=== PATIENT | female | born 1945 | race Caucasian/White ===

== ENCOUNTER 2016-03-10 14:22 | Emergency (ER) | payer OTHER ==
[2016-03-10 14:52] VITALS: BP 156/82; PULSE 89; TEMP 98; BMI 19.5
--- NOTE | 2016-03-10 16:11 | PDOC ---
History of Present Illness - General History Source: Patient, Old Records Exam Limitations: No Limitations - History of Present Illness Initial Comments: 03/10/16 16:46 The patient is a 70 year old female, with a significant past medical history of HTN, hyperlipidemia, cerebral tumor removal (2009), s/p CVA (2009), GERD, gastric ulcer, seizures (on Depakote) and anxiety, who presents to the emergency department with a constant, nonradiating headache which woke her up from sleep this morning at approximately 7AM. She rates her headache as a 7/10 in severity and localizes her headache to the frontal region. She states that she has taken Tylenol for her symptoms, with minimal relief. The patient reports associated nausea and RUQ abdominal pain but denies vomiting. She additionally reports right sided, nonradiating substernal chest pain, which she states she has experienced in the past. The patient denies any blurry vision, vision changes or any extremity numbness/tingling. The patient denies fever, chills, diaphoresis, palpitations or shortness of breath. Her primary language is Arabic. Her caregiver is with her in the ED. The patient uses a walker to ambulate. Allergies: Aspirin, Morphine Past Surgical History: Cholecystectomy, Brain Tumors (2009), Rt Knee Replacement x 2. Social History: Non smoker. Denies alcohol or drug use. PCP: Dr. Mabry <Sue Lyles - Last Filed: 03/10/16 23:20> <Damián Gonzalez - Last Filed: 03/11/16 01:35> - General Chief Complaint: Headache Stated Complaint: HEADACHES Past History <Sue Lyles - Last Filed: 03/10/16 23:20> - Past Medical History Anemia: No Asthma: No Cancer: No Cardiac Disorders: No CVA: Yes (2009,CONFUSED/FORGETFUL AT TIMES) COPD: No CHF: No Dementia: No Diabetes: No GI Disorders: Yes (gerd, gastric ulcer, dysphagia) Disorders: Yes (?kidney stones-PT NOT SURE) HTN: Yes Hypercholesterolemia: Yes Liver Disease: No Suicide Attempt (Hx): No Seizures: (ON DEPAKOTE TO HELP PREVENT AFTER BENIGN TUMOR REMOVAL) Thyroid Disease: No - Surgical History Abdominal Surgery: No Appendectomy: No Cardiac Surgery: No Cholecystectomy: Yes Lung Surgery: No Neurologic Surgery: Yes (brain tumors 2010) Orthopedic Surgery: Yes (RT KNEE REPLACEMENT X 2) - Immunization History Td Vaccination: Yes TDAP Vaccination: No Immunization Up to Date: No - Psycho/Social/Smoking Cessation Hx Anxiety: No Suicidal Ideation: No Smoking Status: No Smoking History: Never smoked Have you smoked in the past 12 months: No Number of Cigarettes Smoked Daily: 0 Cigars Per Day: 0 Hx Alcohol Use: No Drug/Substance Use Hx: No Substance Use Type: None Hx Substance Use Treatment: No <Damián Gonzalez - Last Filed: 03/11/16 01:35> - Past Medical History Allergies/Adverse Reactions: Allergies Allergy/AdvReac Type Severity Reaction Status Date / Time aspirin Allergy Severe "NERVOUS" Verified 03/10/16 14:47 morphine Allergy Severe "ANXIETY-DE Verified 03/10/16 14:47 SPERATION" Home Medications: Ambulatory Orders Buspirone HCl [Buspar -] 15 mg PO BID 03/10/16 Dexlansoprazole [Dexilant] 60 mg PO DAILY 03/10/16 Escitalopram Oxalate [Lexapro -] 10 mg PO DAILY 03/10/16 Famotidine [Pepcid] 40 mg PO HS 03/10/16 Furosemide [Lasix] 40 mg PO DAILY 03/10/16 Gabapentin 600 mg PO BID 03/10/16 Lidocaine/Prilocaine Cream [Emla] 1 each TP DAILY 03/10/16 Metoclopramide HCl [Reglan] 5 mg PO TID 03/10/16 Metoprolol Succinate [Toprol Xl -] 12.5 mg PO DAILY 03/10/16 Oxybutynin Chloride [Oxybutynin Chloride ER] 15 mg PO DAILY 03/10/16 Oxycodone HCl/Acetaminophen [Percocet 5-325 mg Tablet] 1 tab PO Q4H 03/10/16 Potassium Chloride [K-Dur -] 20 meq PO DAILY 03/10/16 Pregabalin [Lyrica -] 75 mg PO BID 03/10/16 Quetiapine Fumarate [Seroquel -] 25 mg PO HS 03/10/16 Rifaximin [Xifaxan] 550 mg PO BID 03/10/16 Sulfamethoxazole/Trimethoprim [Bactrim Single Strength -] 1 tab PO DAILY Review of Systems - Review of Systems Able to Perform ROS?: Yes Comments:: 03/10/16 16:47 CONSTITUTIONAL: No fever, no chills, no fatigue EYES: No visual changes ENT: No ear pain, no sore throat CARDIOVASCULAR: +Chest pain. No palpitations RESPIRATORY: No cough, no SOB GI: +Nausea, abdominal pain. No vomiting, no constipation, no diarrhea GENITOURINARY: No dysuria, no frequency, no hematuria MUSKULOSKELETAL: No back pain, no joint pain, no myalgias SKIN: No rash NEURO: +Headache <Sue Lyles - Last Filed: 03/10/16 23:20> *Physical Exam - Vital Signs Last Vital Signs Temp Pulse Resp BP Pulse Ox 98 F 89 20 156/82 97 03/10/16 14:47 03/10/16 14:47 03/10/16 14:47 03/10/16 14:47 03/10/16 14:47 - Physical Exam Comments: 03/10/16 17:47 CONSTITUTIONAL: AAO x3. Well-appearing; well-nourished; in no apparent distress. HEAD: Normocephalic; atraumatic. EYES: PERRL; EOM intact. ENMT: External appears normal; normal oropharynx. NECK: Supple; non-tender; no cervical lymphadenopathy. CARD: Normal S1, S2; no murmurs, rubs, or gallops. RESP: Normal chest excursion with respiration; breath sounds clear and equal bilaterally; no wheezes, rhonchi, or rales. ABD: RUQ epigastric tenderness on palpation. Soft, non-distended; no palpable organomegaly, no palpable hernias. EXT: 2+ pitting edema bilaterally. Normal ROM in all four extremities; non- tender to palpation; distal pulses intact. SKIN: Warm, dry, no rash. NEURO: Frequent involuntary lower lip movements consistent with tardive dyskinesia. Cranial nerves II through XII are intact. 5/5 motor strength x 4 extremities. No gross sensory deficits. Finger to nose intact. Normal speech, normal gait. <Sue Lyles - Last Filed: 03/10/16 23:20> - Vital Signs Last Vital Signs Temp Pulse Resp BP Pulse Ox 98 F 89 20 156/82 97 03/10/16 14:47 03/10/16 14:47 03/10/16 14:47 03/10/16 14:47 03/10/16 14:47 <Damián Gonzalez - Last Filed: 03/11/16 01:35> Heart Score/ECG Review #1 ECG reviewed & interpreted by me at: 18:05 (Vent Rate: 76 bpm. Normal sinus rhythm. ) <Sue Lyles - Last Filed: 03/10/16 23:20> ED Treatment Course - LABORATORY CBC & Chemistry Diagram: 03/10/16 16:52 03/10/16 16:52 <Sue Lyles - Last Filed: 03/10/16 23:20> - LABORATORY CBC & Chemistry Diagram: 03/10/16 16:52 03/10/16 16:52 <Damián Gonzalez - Last Filed: 03/11/16 01:35> Medical Decision Making - Medical Decision Making 03/10/16 19:50 EXAM: US/ABDOMEN US-LIMITED Reviewed By: Dr. Arturo Jimenez IMPRESSION: Limited study, s/p cholecystectomy with no evidence of biliary ductal dilatation. EXAM: CT/HEAD CT WITHOUT CONTRAST Reviewed By: Dr. Arturo Jimenez IMPRESSION: No evidence of acute intracranial pathology or significant change since 01/22/2016. <Sue Lyles - Last Filed: 03/10/16 23:20> - Medical Decision Making 03/10/16 18:57 Patient is anxious appearing 70-year-old female who presents with multiple complaints. Patient presents with atraumatic frontal headache consistent with her previous episodes of headache--serial neurological evaluations and the CT of head showed no evidence of acute intracranial pathology, left frontal encephalomalacia is unchanged. I do not suspect meningitis or subarachnoid hemorrhage at this time. Patient also presents with atraumatic nonspecific chest discomfort-EKG and first set of cardiac enzymes are within normal limit. Do not suspect a pulmonary embolism or dissection at this time. Patient also complaining of atraumatic right upper quadrant discomfort (she is status post cholecystectomy). CBC/CMP/lipase within normal limit. Will obtain right upper quadrant ultrasound to evaluate for retained stone versus hepatomegaly. Will reassess. Likely will obtain second set of cardiac enzymes and if normal will discharge with PMD follow-up. 03/11/16 01:33 <Damián Gonzalez - Last Filed: 03/11/16 01:35> *DC/Admit/Observation/Transfer - Attestations Scribe Attestion: 03/10/16 16:20 Documentation prepared by Sue Lyles, acting as medical device sales consultant for Damián Gonzalez MD. <Sue Lyles - Last Filed: 03/10/16 23:20> - Attestations Physician Attestion: 03/10/16 18:56 The documentation was prepared by the scribe under my direct supervision. I have reviewed the documentation which correctly represents the findings, medical decision-making and critical action taken by me. <Damián Gonzalez - Last Filed: 03/11/16 01:35> Diagnosis at time of Disposition: Headache Qualifiers: Headache type: unspecified Headache chronicity pattern: acute headache Intractability: not intractable Qualified Code(s): R51 - Headache Chest pain Qualifiers: Chest pain type: unspecified Qualified Code(s): R07.9 - Chest pain, unspecified Abdominal pain Qualifiers: Abdominal location: right lower quadrant Qualified Code(s): R10.31 - Right lower quadrant pain - Discharge Dispostion Disposition: HOME Condition at time of disposition: Stable - Referrals Referrals: Waldo Mabry MD [Primary Care Provider] - - Patient Instructions Printed Discharge Instructions: DI for Headache, DI for Atypical Chest Pain, DI for Abdominal Pain-Adult Print Language: [place]
[2016-03-10] MEDS ORDERED: METOCLOPRAMIDE HCL INJECTION 10 MG/2 ML VIAL IVPB ONE (16:53)
[2016-03-10] MEDS ORDERED: ALPRAZolam 0.25 MG TABLET PO ONE (16:53)
[2016-03-10] MEDS ORDERED: ALPRAZolam 0.25 MG TABLET ONE (17:00)
[2016-03-10] MEDS ORDERED: SODIUM CHLORIDE 0.9% 1000 ML INFUS.BAG IV ONE (17:06)
[2016-03-10] MEDS ORDERED: ONDANSETRON 4 MG/2 ML VIAL IVPUSH ONE (17:06)
[2016-03-10] MEDS ORDERED: ONDANSETRON 4 MG/2 ML VIAL ONE (17:07)
[2016-03-10] MEDS ORDERED: SODIUM CHLORIDE 500 ML IV STA (17:18)
[2016-03-10] MEDS ORDERED: ONDANSETRON 4 MG/2 ML VIAL IVPB ONE (17:18)
[2016-03-10 17:54] LABS: BASOPHIL 0.2 % (0-2.0); EOSINOPHIL 0.3 % (0-4.5); MCH 21.3 pg (25.7-33.7); MEAN CELL VOLUME 68.6 fl (80-96); NEUTROPHILS 87.5 % (42.8-82.8); PLATELET COUNT 525 K/MM3 (134-434); RDW 26.5 % (11.6-15.6); WHITE BLOOD COUNT 5.7 K/mm3 (4.0-10.0)
[2016-03-10] MEDS ORDERED: ACETAMINOPHEN 325 MG TABLET (FP) PO ONE (18:00)
[2016-03-10 18:18] LABS: ALBUMIN 3.8 g/dl (3.4-5.0); ANION GAP 14 (8-16); BILIRUBIN,TOTAL 0.3 mg/dL (0.2-1.0); CALCIUM 8.9 mg/dL (8.5-10.1); CO2 29 mmol/L (21-32); CREATININE 0.8 mg/dL (0.55-1.02); GLUCOSE,RANDOM 144 mg/dL (74-106); SGOT/AST 22 U/L (15-37); SGPT/ALT 30 U/L (12-78); TOT PROT 7.5 g/dl (6.4-8.2)
[2016-03-10 18:21] LABS: ALK PHOS 181 U/L (45-117); TROPONIN I < 0.02 ng/ml (0.00-0.05)
[2016-03-10 18:40] LABS: PLATELET ESTIMATE SLT INCREASED (NORMAL)
[2016-03-10 18:42] LABS: ANISOCYTOSIS 3+; HYPOCHROMIA 2+; MICROCYTOSIS 1+; OVALOCYTES 1+; POIKILOCYTOSIS 1+; POLYCHROMASIA 1+
[2016-03-10 19:28] LABS: URINE APPEARANCE CLEAR; URINE BILIRUBIN NEGATIVE (NEGATIVE); URINE COLOR COLORLESS; URINE GLUCOSE (UA) NEGATIVE (NEGATIVE); URINE KETONE NEGATIVE (NEGATIVE); URINE LEUK ESTERASE NEGATIVE (NEGATIVE); URINE NITRITE NEGATIVE (NEGATIVE); URINE PROTEIN NEGATIVE (NEGATIVE); URINE UROBILINOGEN NEGATIVE E.U./dl (0.2-1.0)
[2016-03-10 19:29] LABS: URINE BLOOD 1+ (NEGATIVE)
[2016-03-10 19:55] LABS: URINE MUCUS RARE; URINE RBC 1 /hpf (0-3); URINE WBC <1 /hpf (3-5)
[2016-03-10] MEDS ORDERED: traMADol HCL 50 MG TABLET PO ONE (20:17)
[2016-03-10] MEDS ORDERED: ACETAMINOPHEN 325 MG TABLET (FP) ONE (20:33)
[2016-03-10] MEDS ORDERED: traMADol HCL 50 MG TABLET ONE (20:34)
[2016-03-10] MEDS ORDERED: IBUPROFEN 400 MG TABLET (FP) PO ONE (23:36)
[2016-03-11 01:16] LABS: TROPONIN I < 0.02 ng/ml (0.00-0.05)
[2016-03-11] MEDS ORDERED: IBUPROFEN 600 MG TABLET (FP) PO ONE (02:15)
--- NOTE | 2016-03-11 10:09 | EKG ---
Test Reason : Blood Pressure : / mmHG Vent. Rate : 076 BPM Atrial Rate : 076 BPM P-R Int : 162 ms QRS Dur : 084 ms QT Int : 396 ms P-R-T Axes : 035 -01 018 degrees QTc Int : 445 ms NORMAL SINUS RHYTHM WHEN COMPARED WITH ECG OF 22-JAN-2016 15:49, NO SIGNIFICANT CHANGE WAS FOUND Confirmed by LARA SARMIENTO MD ([id number]) on 03/11/2016 10:09:27 AM Referred By: Confirmed By:LARA SARMIENTO MD
== END 2016-03-11 01:51 | disposition home or self-care (01) ==
LOC: JERFT 14:22 → JER 14:22
PROC: 3E033GC Introduction of Other Therapeutic Substance into Peripheral Vein, Percutaneous Approach (ICD-10-PCS; principal; 2016-03-10)
DX: R51 Headache (principal); G40.909 Epilepsy, unspecified, not intractable, without status epilepticus; I10 Essential (primary) hypertension; E78.00 Pure hypercholesterolemia, unspecified; F41.9 Anxiety disorder, unspecified; I69.898 Other sequelae of other cerebrovascular disease; Z87.19 Personal history of other diseases of the digestive system
CPT/HCPCS: 36415; 70450-TC; 71010-TC; 76705-TC; 80053; 81003; 81015; 82550; 83690; 84484; 85025; 85610; 87086; 93005; 93010; 99283-25

== ENCOUNTER 2016-03-20 14:27 | Emergency (ER) | payer OTHER ==
--- NOTE | 2016-03-20 14:43 | PDOC ---
History of Present Illness - General History Source: Patient Exam Limitations: No Limitations - History of Present Illness Initial Comments: 03/20/16 15:54 The patient is a 70 year old female, with a significant past medical history of HTN, hyperlipidemia, cerebral tumor removal (2009), s/p CVA (2009), GERD, gastric ulcer, seizures (on Depakote) and anxiety, who presents to the emergency department with a constant, nonradiating headache. She notes that she had injections but is unsure of the medication that they used. She notes that it was not Botox because she is due for Botox injections until end of March. She notes that the injections did not alleviate the headache and it has been constant since. She is requesting CT of the head because she cannot take the headache anympore. She denies fever, chills, nausea, vomiting, diarrhea and constipation. She denies any recent fall or LOC. Allergies: Aspirin, Morphine Past Surgical History: Cholecystectomy, Brain Tumors (2009), Rt Knee Replacement x 2. Social History: Non smoker. Denies alcohol or drug use. PCP: Dr. Mabry <Harriet Amin - Last Filed: 03/20/16 15:54> <Deon Trujillo - Last Filed: 03/20/16 17:35> - General Chief Complaint: Headache Stated Complaint: PAIN Time Seen by Provider: 03/20/16 14:42 Past History <Harriet Aimn - Last Filed: 03/20/16 15:54> - Past Medical History Anemia: No Asthma: No Cancer: No Cardiac Disorders: No CVA: Yes (2009,CONFUSED/FORGETFUL AT TIMES) COPD: No CHF: No Dementia: No Diabetes: No GI Disorders: Yes (gerd, gastric ulcer, dysphagia) Disorders: Yes (?kidney stones-PT NOT SURE) HTN: Yes Hypercholesterolemia: Yes Liver Disease: No Suicide Attempt (Hx): No Seizures: (ON DEPAKOTE TO HELP PREVENT AFTER BENIGN TUMOR REMOVAL) Thyroid Disease: No - Surgical History Abdominal Surgery: No Appendectomy: No Cardiac Surgery: No Cholecystectomy: Yes Lung Surgery: No Neurologic Surgery: Yes (brain tumors 2009) Orthopedic Surgery: Yes (RT KNEE REPLACEMENT X 2) - Immunization History Td Vaccination: Yes TDAP Vaccination: No Immunization Up to Date: No - Psycho/Social/Smoking Cessation Hx Anxiety: No Suicidal Ideation: No Smoking Status: No Smoking History: Never smoked Have you smoked in the past 12 months: No Number of Cigarettes Smoked Daily: 0 Cigars Per Day: 0 Hx Alcohol Use: No Drug/Substance Use Hx: No Substance Use Type: None Hx Substance Use Treatment: No <Deon Trujillo - Last Filed: 03/20/16 17:35> - Past Medical History Allergies/Adverse Reactions: Allergies Allergy/AdvReac Type Severity Reaction Status Date / Time aspirin Allergy Severe "NERVOUS" Verified 03/20/16 14:43 morphine Allergy Severe "ANXIETY-DE Verified 03/20/16 14:43 SPERATION" Home Medications: Ambulatory Orders Buspirone HCl [Buspar -] 15 mg PO BID 03/10/16 Dexlansoprazole [Dexilant] 60 mg PO DAILY 03/10/16 Escitalopram Oxalate [Lexapro -] 10 mg PO DAILY 03/10/16 Famotidine [Pepcid] 40 mg PO HS 03/10/16 Furosemide [Lasix] 40 mg PO DAILY 03/10/16 Gabapentin 600 mg PO BID 03/10/16 Lidocaine/Prilocaine Cream [Emla] 1 each TP DAILY 03/10/16 Metoclopramide HCl [Reglan] 5 mg PO TID 03/10/16 Metoprolol Succinate [Toprol Xl -] 12.5 mg PO DAILY 03/10/16 Oxybutynin Chloride [Oxybutynin Chloride ER] 15 mg PO DAILY 03/10/16 Potassium Chloride [K-Dur -] 20 meq PO DAILY 03/10/16 Pregabalin [Lyrica -] 75 mg PO BID 03/10/16 Quetiapine Fumarate [Seroquel -] 25 mg PO HS 03/10/16 Rifaximin [Xifaxan] 550 mg PO BID 03/10/16 Sulfamethoxazole/Trimethoprim [Bactrim Single Strength -] 1 tab PO DAILY Review of Systems - Review of Systems Able to Perform ROS?: Yes Comments:: 03/20/16 15:55 GENERAL/CONSTITUTIONAL: No fever or chills. No weakness. HEAD, EYES, EARS, NOSE AND THROAT: No change in vision. No ear pain or discharge. No sore throat. CARDIOVASCULAR: No chest pain or shortness of breath. RESPIRATORY: No cough, wheezing, or hemoptysis. GASTROINTESTINAL: No nausea, vomiting, diarrhea or constipation. GENITOURINARY: No dysuria, frequency, or change in urination. MUSCULOSKELETAL: No joint or muscle swelling or pain. No neck or back pain. SKIN: No rash NEUROLOGIC: +headache, No vertigo, loss of consciousness, or change in strength/ sensation. ENDOCRINE: No increased thirst. No abnormal weight change. HEMATOLOGIC/LYMPHATIC: No anemia, easy bleeding, or history of blood clots. ALLERGIC/IMMUNOLOGIC: No hives or skin allergy. <Harriet Amin - Last Filed: 03/20/16 15:54> *Physical Exam - Vital Signs Last Vital Signs Temp Pulse Resp BP Pulse Ox 98.1 F 80 18 128/69 100 03/20/16 14:51 03/20/16 14:51 03/20/16 14:51 03/20/16 14:51 03/20/16 14:51 - Physical Exam Comments: 03/20/16 15:55 GENERAL: Awake, alert, and fully oriented, in no acute distress HEAD: No signs of trauma EYES: PERRLA, EOMI, sclera anicteric, conjunctiva clear ENT: Auricles normal inspection, hearing grossly normal, nares patent, oropharynx clear without exudates. Moist mucosa NECK: Normal ROM, supple, no lymphadenopathy, JVD, or masses LUNGS: Breath sounds equal, clear to auscultation bilaterally. No wheezes, and no crackles HEART: Regular rate and rhythm, normal S1 and S2, no murmurs, rubs or gallops ABDOMEN: Soft, nontender, normoactive bowel sounds. No guarding, no rebound. No masses EXTREMITIES: Normal range of motion, no edema. No clubbing or cyanosis. No cords, erythema, or tenderness NEUROLOGICAL: Cranial nerves II through XII grossly intact. Normal speech, normal gait SKIN: Warm, Dry, normal turgor, no rashes or lesions noted. <Harriet Amin - Last Filed: 03/20/16 15:54> Medical Decision Making - Medical Decision Making 03/20/16 15:55 Patient is a 70 year old female, with pmhx of HTN, hyperlipidemia, cerebral tumor removal (2009), s/p CVA (2009), GERD, gastric ulcer, seizures (on Depakote ) and anxiety, who presents with constant headache. Will order head CT and medication for her headache. Will reassess. <Harriet Amin - Last Filed: 03/20/16 15:54> *DC/Admit/Observation/Transfer - Attestations Scribe Attestion: 03/20/16 15:56 Documentation prepared by WAYNE Flores, acting as biomedical engineering director for Deon Trujillo MD/. <Harriet Amin - Last Filed: 03/20/16 15:54> - Discharge Dispostion Admit: No - Attestations Physician Attestion: 03/20/16 14:43 I, Dr. Deon Trujillo, attest that this document has been prepared under my direction and personally reviewed by me in its entirety. I further attest, that it accurately reflects all work, treatment, procedures and medical decision -making performed by me. <Deon Trujillo - Last Filed: 03/20/16 17:35> Diagnosis at time of Disposition: Headache above the eye region - Discharge Dispostion Disposition: HOME Condition at time of disposition: Good - Referrals Referrals: Waldo Mabry MD [Primary Care Provider] - - Patient Instructions Printed Discharge Instructions: DI for Headache Additional Instructions: Billie- I am sorry that you have these headaches. Your CT scan looked exactly like the last one that you had, nothing new. You need to work with your doctors to come up with a medication plan for this. The ED is not the place to treat chronic pain. I hope you find a solution soon- Best- Dr. Deon Trujillo
[2016-03-20] MEDS ORDERED: diazePAM 5 MG TABLET PO ONE ×2 (15:15→15:19)
[2016-03-20] MEDS ORDERED: OXYCODONE/APAP 5/325MG COMBO TABLET PO ONE ×2 (15:15→15:19)
[2016-03-20] MEDS ORDERED: ONDANSETRON *ODT* 4 MG TABLET SL ONE ×2 (15:15→15:19)
[2016-03-20 15:24] VITALS: TEMP 98.1; BMI 40.2
[2016-03-20] MEDS ORDERED: diazePAM 5 MG TABLET ONE (16:09)
[2016-03-20] MEDS ORDERED: OXYCODONE/APAP 5/325MG COMBO TABLET ONE (16:09)
[2016-03-20] MEDS ORDERED: ONDANSETRON 8 MG TABLET (FP) PO ONE (16:10)
[2016-03-20 18:44] VITALS: BP 125/76; PULSE 81
== END 2016-03-20 17:30 | disposition home or self-care (01) ==
LOC: JER 14:27
DX: R51 Headache (principal); I10 Essential (primary) hypertension; E78.00 Pure hypercholesterolemia, unspecified; Z86.73 Personal history of transient ischemic attack (TIA), and cerebral infarction without residual deficits; Z86.69 Personal history of other diseases of the nervous system and sense organs; F41.9 Anxiety disorder, unspecified
CPT/HCPCS: 70450-TC; 99282-25

== ENCOUNTER 2016-05-28 11:01 | Emergency (ER) | payer OTHER ==
[2016-05-28 11:12] VITALS: TEMP 98.6; BMI 33.5
--- NOTE | 2016-05-28 11:33 | PDOC ---
History of Present Illness - General History Source: Patient, Other ([employer]) - History of Present Illness Timing/Duration: reports: other (yesterday) Associated Symptoms: denies: fever/chills, nausea/vomiting, vision changes <Emily Fairchild - Last Filed: 05/28/16 13:38> <Ambika Peralta - Last Filed: 05/29/16 07:54> - General Chief Complaint: Headache Stated Complaint: HEADACHE, DIZZINESS Time Seen by Provider: 05/28/16 11:20 Past History - Past Medical History Anemia: No Asthma: No Cancer: No Cardiac Disorders: No CVA: Yes (2010,CONFUSED/FORGETFUL AT TIMES) COPD: No CHF: No Dementia: No Diabetes: No GI Disorders: Yes (gerd, gastric ulcer, dysphagia) Disorders: Yes (?kidney stones-PT NOT SURE) HTN: Yes Hypercholesterolemia: Yes Liver Disease: No Suicide Attempt (Hx): No Seizures: (ON DEPAKOTE TO HELP PREVENT AFTER BENIGN TUMOR REMOVAL) Thyroid Disease: No - Surgical History Abdominal Surgery: No Appendectomy: No Cardiac Surgery: No Cholecystectomy: Yes Lung Surgery: No Neurologic Surgery: Yes (brain tumors 2009) Orthopedic Surgery: Yes (RT KNEE REPLACEMENT X 2) - Immunization History Td Vaccination: Yes TDAP Vaccination: No Immunization Up to Date: No - Psycho/Social/Smoking Cessation Hx Anxiety: No Suicidal Ideation: No Smoking Status: No Smoking History: Never smoked Have you smoked in the past 12 months: No Number of Cigarettes Smoked Daily: 0 Cigars Per Day: 0 Information on smoking cessation initiated: No Hx Alcohol Use: No Drug/Substance Use Hx: No Substance Use Type: None Hx Substance Use Treatment: No <Emily Fairchild - Last Filed: 05/28/16 13:38> <Ambika Peralta - Last Filed: 05/29/16 07:54> - Past Medical History Allergies/Adverse Reactions: Allergies Allergy/AdvReac Type Severity Reaction Status Date / Time aspirin Allergy Severe "NERVOUS" Verified 05/28/16 11:12 morphine Allergy Severe "ANXIETY-DE Verified 05/28/16 11:12 SPERATION" Home Medications: Ambulatory Orders Dexlansoprazole [Dexilant] 60 mg PO DAILY 03/10/16 Escitalopram Oxalate [Lexapro -] 10 mg PO DAILY 03/10/16 Famotidine [Pepcid] 40 mg PO HS 03/10/16 Furosemide [Lasix] 40 mg PO DAILY 03/10/16 Gabapentin 600 mg PO BID 03/10/16 Metoprolol Succinate [Toprol Xl -] 12.5 mg PO DAILY 03/10/16 Potassium Chloride [K-Dur -] 20 meq PO DAILY 03/10/16 Pregabalin [Lyrica -] 75 mg PO BID 03/10/16 Review of Systems - Review of Systems Constitutional: No: Chills, Fever Respiratory: No: Shortness of Breath Cardiac (ROS): No: Chest Pain ABD/GI: No: Nausea, Vomiting Neurological: Yes: Headache, Dizziness <Emily Fairchild - Last Filed: 05/28/16 13:38> *Physical Exam - Vital Signs Last Vital Signs Temp Pulse Resp BP Pulse Ox 98.6 F 86 18 149/69 97 05/28/16 11:04 05/28/16 11:04 05/28/16 11:04 05/28/16 11:04 05/28/16 11:04 - Physical Exam General Appearance: Yes: Appropriately Dressed, Apparent Distress Neck: positive: Supple Respiratory/Chest: positive: Lungs Clear, Normal Breath Sounds. negative: Respiratory Distress Cardiovascular: positive: Regular Rate, S1, S2 Integumentary: positive: Dry, Warm Neurologic: positive: Fully Oriented, Alert, Normal Mood/Affect, Motor Strength 5/5, Finger to Nose. negative: Facial Droop (no nystagmus, Maria Teresa intact, no ataxia, no drift), Confused, Disoriented <Emily Fairchild - Last Filed: 05/28/16 13:38> - Vital Signs Last Vital Signs Temp Pulse Resp BP Pulse Ox 98.6 F 66 18 150/80 99 05/28/16 11:04 05/28/16 14:23 05/28/16 14:23 05/28/16 14:23 05/28/16 14:23 <Ambika Peralta - Last Filed: 05/29/16 07:54> ED Treatment Course - LABORATORY CBC & Chemistry Diagram: 05/28/16 12:10 05/28/16 12:10 <Emily Fairchild - Last Filed: 05/28/16 13:38> - LABORATORY CBC & Chemistry Diagram: 05/28/16 12:10 05/28/16 12:10 - ADDITIONAL ORDERS Additional order review: 05/28/16 12:10 RBC 4.51 MCV 80.5 MCHC 32.2 RDW 20.8 H D MPV 7.1 L Neutrophils % 55.0 D Lymphocytes % 29.2 D Monocytes % 12.9 H D Eosinophils % 2.5 D Basophils % 0.4 - Medications Given in the ED: ED Medications Discontinued Medications Generic Name Dose Route Start Last Admin Trade Name Chance PRN Reason Stop Dose Admin Sodium Chloride 500 mls @ 1,000 mls/hr 05/28/16 11:46 05/28/16 12:27 Normal Saline - IV 05/28/16 12:15 1,000 mls/hr ASDIR STA Administration Metoclopramide HCl 10 mg 05/28/16 11:46 05/28/16 12:27 Reglan Injection - IVPB 05/28/16 11:47 10 mg ONCE ONE Administration <Ambika Peralta - Last Filed: 05/29/16 07:54> Medical Decision Making - Medical Decision Making 05/28/16 11:33 70-year-old female history of hypertension, hyperlipidemia, cerebral tumor removal in 2009, status post CVA with no residual deficit in 2009, seizure on depakote, GERD, gastric ulcers, anxiety, multiple ED visits for headaches and usually discharged from the ED, last seen approximately 2 months ago with unchanged head CT, p/w usual GALLARDO that started yesterday as per pt, located to frontal aspect, pressure-like in nature, waxes and wanes. Also c/o the room spinning which she has also had in the past w/ her HAs. No slurred speech, visual changes, focal weakness, n/v. Pt states yesterday when GALLARDO started, she checked her BP and states her blood pressure was 176/100 but did decrease to 120 /90 last night without intervention. Reports compliance w/ her meds. Patient states she thinks maybe elevated blood pressure caused her headache, though does admit that current headache is similar to her chronic headaches. Pt states she f/u with outside neurologist and on tylenol for GALLARDO at home which does not help see exam Acute on chronic GALLARDO Multiple ED visits for same, CT 04/01 unchanged Well geoffrey and stable w/ no neuro deficits and no s/o infection -pain control -labs -CT head given hx -reassess 05/28/16 12:08 05/28/16 12:15 05/28/16 13:38 CTH and labs unremarkable. Pt pain free and stable for discharged w/ PMD and nuero f/u <Emily Fairchild - Last Filed: 05/28/16 13:38> *DC/Admit/Observation/Transfer <Emily Fairchild - Last Filed: 05/28/16 13:38> - Attestations Physician Attestion: I reviewed the case with the mid-level practitioner and agree with the mid- level practitioner's assessment, diagnosis and disposition. <Ambika Peralta - Last Filed: 05/29/16 07:54> Diagnosis at time of Disposition: Chronic headache Qualifiers: Headache type: unspecified Intractability: not intractable Qualified Code(s): R51 - Headache - Discharge Dispostion Disposition: HOME Condition at time of disposition: Improved - Referrals Referrals: Waldo Mabry MD [Primary Care Provider] - - Patient Instructions Additional Instructions: Please follow up with your neurologist and PMD
[2016-05-28] MEDS ORDERED: METOCLOPRAMIDE HCL INJECTION 10 MG/2 ML VIAL IVPB ONE (11:46)
[2016-05-28] MEDS ORDERED: SODIUM CHLORIDE 500 ML IV STA (11:46)
[2016-05-28] MEDS ORDERED: METOCLOPRAMIDE HCL INJECTION 10 MG/2 ML VIAL ONE (12:07)
[2016-05-28 12:24] LABS: BASOPHIL 0.4 % (0-2.0); EOSINOPHIL 2.5 % (0-4.5); MCH 25.9 pg (25.7-33.7); MCHC 32.2 g/dl (32.0-36.0); MEAN CELL VOLUME 80.5 fl (80-96); MEAN PLT VOLUME 7.1 fl (7.5-11.1); PLATELET COUNT 302 K/MM3 (134-434); RDW 20.8 % (11.6-15.6); WHITE BLOOD COUNT 5.1 K/mm3 (4.0-10.0)
[2016-05-28 12:40] LABS: ALBUMIN 2.9 g/dl (3.4-5.0); ANION GAP 9 (8-16); BILIRUBIN,TOTAL 0.4 mg/dL (0.2-1.0); CO2 27 mmol/L (21-32); CREATININE 0.7 mg/dL (0.55-1.02); GLUCOSE,RANDOM 127 mg/dL (74-106); SGOT/AST 43 U/L (15-37); SGPT/ALT 43 U/L (12-78); TOT PROT 6.4 g/dl (6.4-8.2)
[2016-05-28 12:42] LABS: ALK PHOS 219 U/L (45-117); TROPONIN I 0.02 ng/ml (0.00-0.05)
[2016-05-28 14:23] VITALS: BP 150/80; PULSE 66
--- NOTE | 2016-05-28 18:07 | EKG ---
Test Reason : Blood Pressure : / mmHG Vent. Rate : 066 BPM Atrial Rate : 066 BPM P-R Int : 166 ms QRS Dur : 078 ms QT Int : 472 ms P-R-T Axes : 012 009 014 degrees QTc Int : 494 ms NORMAL SINUS RHYTHM PROLONGED QT ABNORMAL ECG WHEN COMPARED WITH ECG OF 10-MAR-2016 18:05, NO SIGNIFICANT CHANGE WAS FOUND CLINICAL CORRELATION IS RECOMMENDED Confirmed by JAM SEVILLA, LATA ([id number] on 05/28/2016 6:06:54 PM Referred By: Confirmed By:LATA POLK MD
== END 2016-05-28 14:25 | disposition home or self-care (01) ==
LOC: JER 11:01
PROC: 3E033GC Introduction of Other Therapeutic Substance into Peripheral Vein, Percutaneous Approach (ICD-10-PCS; principal; 2016-05-28)
DX: R51 Headache (principal); I10 Essential (primary) hypertension; E78.00 Pure hypercholesterolemia, unspecified; K21.9 Gastro-esophageal reflux disease without esophagitis; G40.909 Epilepsy, unspecified, not intractable, without status epilepticus; Z86.73 Personal history of transient ischemic attack (TIA), and cerebral infarction without residual deficits; Z87.19 Personal history of other diseases of the digestive system
CPT/HCPCS: 36415; 70450-TC; 80053; 82550; 84484; 85025; 93005; 93010; 96374; 99283-25

== ENCOUNTER 2016-07-07 12:27 | Inpatient (IN) | payer OTHER ==
--- NOTE | 2016-07-07 13:02 | PDOC ---
History of Present Illness - General History Source: Patient, Care Provider, Old Records Exam Limitations: No Limitations - History of Present Illness Initial Comments: 07/07/16 13:32 The patient is a 70 year old female presenting with her small products assembler, with a significant past medical history of HTN, HLD, GERD, kidney stones, gastric ulcer, dysphagia and CVA (2009) who presents to the emergency department after multiple falls this morning. She states that this morning she awoke feeling fine but when she was standing, she lost strength throughout her body and fell onto the floor. She was not able to get up on her own, until her small products assembler came and helped her get back up. At that time she was feeling fine, until she was in her bedroom attempting to fix her window shades, when she tripped over the side of her bed and fell backwards, hitting the right side of her head. She describes the headache as ranging from mild to moderate, without radiation or modifying factors. She states that she has been experiencing chest pain since yesterday, which radiates from side to side, ranging from mild to moderate. She notes that pressing on the chest exacerbates her pain. The patient denies shortness of breath and dizziness. Denies fever, chills, nausea, vomit, diarrhea and constipation. Denies dysuria, frequency, urgency and hematuria. Allergies: Aspirin, morphine Past surgical history: brain tumors 2010, cholecystectomy, right knee replacement x 2 Social history: No alcohol, tobacco or drug use reported <Eamon Shaw - Last Filed: 07/07/16 15:16> - General History Source: Patient Exam Limitations: No Limitations <Sean Douglas - Last Filed: 07/07/16 16:19> - General Chief Complaint: Injury Stated Complaint: FALL, DIZZINESS Time Seen by Provider: 07/07/16 12:45 Past History <Eamon Shaw - Last Filed: 07/07/16 15:16> - Past Medical History Anemia: No Asthma: No Cancer: No Cardiac Disorders: No CVA: Yes (2009,CONFUSED/FORGETFUL AT TIMES) COPD: No CHF: No Dementia: No Diabetes: No GI Disorders: Yes (gerd, gastric ulcer, dysphagia) Disorders: Yes (?kidney stones-PT NOT SURE) HTN: Yes Hypercholesterolemia: Yes Liver Disease: No Suicide Attempt (Hx): No Seizures: (ON DEPAKOTE TO HELP PREVENT AFTER BENIGN TUMOR REMOVAL) Thyroid Disease: No - Surgical History Abdominal Surgery: No Appendectomy: No Cardiac Surgery: No Cholecystectomy: Yes Lung Surgery: No Neurologic Surgery: Yes (brain tumors 2010) Orthopedic Surgery: Yes (RT KNEE REPLACEMENT X 2) - Immunization History Td Vaccination: Yes TDAP Vaccination: No Immunization Up to Date: No - Psycho/Social/Smoking Cessation Hx Anxiety: No Suicidal Ideation: No Smoking Status: No Smoking History: Never smoked Have you smoked in the past 12 months: No Number of Cigarettes Smoked Daily: 0 Cigars Per Day: 0 Hx Alcohol Use: No Drug/Substance Use Hx: No Substance Use Type: None Hx Substance Use Treatment: No <Sean Douglas - Last Filed: 07/07/16 16:19> - Past Medical History Allergies/Adverse Reactions: Allergies Allergy/AdvReac Type Severity Reaction Status Date / Time aspirin Allergy Severe "NERVOUS" Verified 07/07/16 12:39 morphine Allergy Severe "ANXIETY-DE Verified 07/07/16 12:39 SPERATION" Home Medications: Ambulatory Orders Dexlansoprazole [Dexilant] 60 mg PO DAILY 03/10/16 Escitalopram Oxalate [Lexapro -] 10 mg PO DAILY 03/10/16 Famotidine [Pepcid] 40 mg PO HS 03/10/16 Furosemide [Lasix] 40 mg PO DAILY 03/10/16 Gabapentin 600 mg PO BID 03/10/16 Metoprolol Succinate [Toprol Xl -] 12.5 mg PO DAILY 03/10/16 Potassium Chloride [K-Dur -] 20 meq PO DAILY 03/10/16 Pregabalin [Lyrica -] 75 mg PO BID 03/10/16 Linaclotide [Linzess] 145 mcg PO DAILY 07/07/16 Rifaximin [Xifaxan] 0 mg PO DAILY 07/07/16 Review of Systems - Review of Systems Able to Perform ROS?: Yes Comments:: 07/07/16 13:32 GENERAL/CONSTITUTIONAL: No fever or chills. No weakness. HEAD, EYES, EARS, NOSE AND THROAT: No change in vision. No ear pain or discharge. No sore throat. CARDIOVASCULAR: (+) Chest pain. No shortness of breath RESPIRATORY: No cough, wheezing, or hemoptysis. GASTROINTESTINAL: No nausea, vomiting, diarrhea or constipation. GENITOURINARY: No dysuria, frequency, or change in urination. MUSCULOSKELETAL: No joint or muscle swelling or pain. No neck or back pain. SKIN: No rash NEUROLOGIC: (+) Headache. No vertigo, loss of consciousness, or change in strength/sensation. ENDOCRINE: No increased thirst. No abnormal weight change HEMATOLOGIC/LYMPHATIC: No anemia, easy bleeding, or history of blood clots. ALLERGIC/IMMUNOLOGIC: No hives or skin allergy. <Eamon Shaw - Last Filed: 07/07/16 15:16> *Physical Exam - Vital Signs Last Vital Signs Temp Pulse Resp BP Pulse Ox 98.0 F 95 H 18 156/78 100 07/07/16 12:41 07/07/16 12:41 07/07/16 12:41 07/07/16 12:41 07/07/16 12:41 - Physical Exam Comments: 07/07/16 13:32 GENERAL: Awake, alert, and fully oriented, in no acute distress HEAD: No signs of trauma, normocephalic, atraumatic EYES: PERRLA, EOMI, sclera anicteric, conjunctiva clear ENT: Auricles normal inspection, hearing grossly normal, nares patent, oropharynx clear without exudates. Moist mucosa NECK: Normal ROM, supple, no lymphadenopathy, JVD, or masses LUNGS: No distress, speaks full sentences, clear to auscultation bilaterally HEART: Regular rate and rhythm, normal S1 and S2, no murmurs, rubs or gallops, peripheral pulses normal and equal bilaterally. ABDOMEN: Soft, nontender, normoactive bowel sounds. No guarding, no rebound. No masses EXTREMITIES: Normal inspection, Normal range of motion, no edema. No clubbing or cyanosis. NEUROLOGICAL: Cranial nerves II through XII grossly intact. Normal speech, normal gait, no focal sensorimotor deficits SKIN: Warm, Dry, normal turgor, no rashes or lesions noted. <Eamon Shaw - Last Filed: 07/07/16 15:16> - Vital Signs Last Vital Signs Temp Pulse Resp BP Pulse Ox 98.0 F 95 H 18 156/78 100 07/07/16 12:41 07/07/16 12:41 07/07/16 12:41 07/07/16 12:41 07/07/16 12:41 <Sean Douglas - Last Filed: 07/07/16 16:19> Heart Score/ECG Review #1 ECG reviewed & interpreted by me at: 12:40 07/07/16 14:32 NSR 105, no std/navya, normal axis, normal intervals, QTC 452 msec <Sean Douglas - Last Filed: 07/07/16 16:19> ED Treatment Course - LABORATORY CBC & Chemistry Diagram: 07/07/16 13:06 07/07/16 13:06 - ADDITIONAL ORDERS Additional order review: 07/07/16 13:06 RBC 4.81 MCV 83.9 MCHC 32.7 RDW 17.4 H D MPV 6.9 L Neutrophils % 79.2 D Lymphocytes % 9.3 D Monocytes % 10.3 H Eosinophils % 0.8 Basophils % 0.4 - RADIOLOGY Radiograph Interpretation: 07/07/16 15:[address] Reviewed by: Dr. Lela Henning Impression: Large hematoma over the right posterior parietal / occipital bone. There is a small acute subdural hemorrhage along the right posterior frontal / parietal lobe margin measuring 3 to 5 mm in width. <Eamon Shaw - Last Filed: 07/07/16 15:16> - LABORATORY CBC & Chemistry Diagram: 07/07/16 13:06 07/07/16 13:06 <Sean Douglas - Last Filed: 07/07/16 16:19> Medical Decision Making - Medical Decision Making 07/07/16 15:16 Dr. Martínez was consulted regarding the patient at 3:14pm [phone] <Eamon Shaw - Last Filed: 07/07/16 15:16> - Medical Decision Making 07/07/16 14:10 A portion of this note was documented by scribe services under my direction. I have reviewed the details of the note, within reason, and agree with the documentation with the following case summary and management plan written by me. Patient treated in the ED. Patient arrives by... to the emergency department. Nursing notes are reviewed and incorporated into the medical decision-making. Vital signs reviewed. Peripheral IV access obtained by the nurse, laboratory studies are drawn and sent, reviewed and interpreted by myself. 70-year-old female with past medical history of hypertension, hyperlipidemia, GERD, kidney stones, stroke presents immersed department for falling twice. Patient states that she was well in the morning. However, she felt her legs felt unsteady and she fell and hit the back or head. No loss of consciousness. Her home health aide had picked her up and the patient was standing. As the patient went to turn she hit her leg and she lost her balance and fell again. Patient came in reporting feeling very anxious. She denies any recent illnesses , fevers, chills, cough, vomiting. Patient does state that she has chronic bilateral knee pain secondary to arthritis. She was is chronic back pain secondary arthritis but reports that neither of them or worsening usual. Denies headache. Patient also reports reproducible nonexertional intermittent chest pain. She reports that this occurs secondary to anxiety. I suspect the patient is quite anxious here. The chest pain is reproducible and does not appear to sound like cardiac. We'll however obtain labs, chest x-ray including troponin. We'll obtain head CT for the fall. We'll obtain urinalysis and labs. Observe the patient. We'll trial small dosing of Ativan and reassess. Workup is negative patient reports feeling better, patient can be discharged home. 07/07/16 15:58 Large hematoma over the right posterior frontal hospital bone. There is a small acute subdural hemorrhage along the right subdural frontal parietal lobe margin measuring 3-4 mm in width. Physical exam: CN II-XII intact. 5/5 strength upper and lower extremities. Speech normal. No drift Cerebellar signs normal CBC, BMP 07/07/16 13:06 07/07/16 13:06 CMP Sodium 131 mmol/L (136-145) L 07/07/16 13:06 Potassium 4.6 mmol/L (3.5-5.1) 07/07/16 13:06 Chloride 93 mmol/L (98-107) L 07/07/16 13:06 Carbon Dioxide 28 mmol/L (21-32) 07/07/16 13:06 Anion Gap 10 (8-16) 07/07/16 13:06 BUN 14 mg/dL (7-18) 07/07/16 13:06 Creatinine 0.7 mg/dL (0.55-1.02) 07/07/16 13:06 Creat Clearance w eGFR > 60 (>60) 07/07/16 13:06 Random Glucose 119 mg/dL (74-106) H 07/07/16 13:06 Calcium 9.0 mg/dL (8.5-10.1) 07/07/16 13:06 Magnesium 2.0 mg/dL (1.8-2.4) 07/07/16 13:06 Total Bilirubin 0.2 mg/dL (0.2-1.0) D 07/07/16 13:06 AST 30 U/L (15-37) D 07/07/16 13:06 ALT 33 U/L (12-78) D 07/07/16 13:06 Alkaline Phosphatase 198 U/L (45-117) H 07/07/16 13:06 Creatine Kinase 98 IU/L (26-192) 07/07/16 13:06 Troponin I 0.04 ng/ml (0.00-0.05) 07/07/16 13:06 Total Protein 6.7 g/dl (6.4-8.2) 07/07/16 13:06 Albumin 3.3 g/dl (3.4-5.0) L 07/07/16 13:06 Urine Test Results Urine Color Ltyellow 07/07/16 14:00 Urine Appearance Clear 07/07/16 14:00 Urine pH 7.0 (5.0-8.0) 07/07/16 14:00 Urine Protein Negative (NEGATIVE) 07/07/16 14:00 Urine Glucose (UA) Negative (NEGATIVE) 07/07/16 14:00 Urine Ketones Negative (NEGATIVE) 07/07/16 14:00 Urine Blood 2+ (NEGATIVE) H 07/07/16 14:00 Urine Nitrite Negative (NEGATIVE) 07/07/16 14:00 Urine Bilirubin Negative (NEGATIVE) 07/07/16 14:00 Ur Leukocyte Esterase 3+ (NEGATIVE) H 07/07/16 14:00 Urine RBC 5 /hpf (0-3) 07/07/16 14:00 Urine WBC 33 /hpf (3-5) 07/07/16 14:00 Ur Epithelial Cells Rare /hpf (FEW) 07/07/16 14:00 Urine Bacteria Few /hpf (NONE SEEN) 07/07/16 14:00 Urine Mucus Rare 07/07/16 14:00 Microbiology reviewed. Demonstrates multi drug resistant UTI. Vanc and zosyn initiated. The patient is neurologically stable and is well. Has no headaches. Case is discussed with neurologist Dr. Martínez who recommends 500 mg IV keppra BID. The patient appears stable. Case discussed with Dr. Bush. Agrees with tele floor admission. Case discussed with Dr. Rubin who accepts the patient to the hospital. <Sean Douglas - Last Filed: 07/07/16 16:19> *DC/Admit/Observation/Transfer - Attestations Scribe Attestion: 07/07/16 13:33 Documentation prepared by Eamon Shaw, acting as medical lab specialist for Sean Douglas MD <Eamon Shaw - Last Filed: 07/07/16 15:16> - Discharge Dispostion Admit: Yes <Sean Douglas - Last Filed: 07/07/16 16:19> Diagnosis at time of Disposition: Subdural hematoma, UTI (lower urinary tract infection) - Discharge Dispostion Condition at time of disposition: Stable
[2016-07-07] MEDS ORDERED: LORAZEPAM CARPU-JECT 2 MG/ML DISP.SYRIN IVPUSH ONE (13:05)
[2016-07-07] MEDS ORDERED: ACETAMINOPHEN 325 MG TABLET (FP) PO ONE (13:05)
[2016-07-07] MEDS ORDERED: SODIUM CHLORIDE 1,000 ML IV STA (13:05)
[2016-07-07 13:16] LABS: BASOPHIL 0.4 % (0-2.0); EOSINOPHIL 0.8 % (0-4.5); MCH 27.4 pg (25.7-33.7); MCHC 32.7 g/dl (32.0-36.0); MEAN CELL VOLUME 83.9 fl (80-96); MEAN PLT VOLUME 6.9 fl (7.5-11.1); NEUTROPHILS 79.2 % (42.8-82.8); PLATELET COUNT 246 K/MM3 (134-434); RDW 17.4 % (11.6-15.6); WHITE BLOOD COUNT 9.8 K/mm3 (4.0-10.0)
[2016-07-07] MEDS ORDERED: ACETAMINOPHEN 325 MG TABLET (FP) ONE (13:30)
[2016-07-07] MEDS ORDERED: LORazepam 2 MG/ML SDV VIAL ONE (13:31)
[2016-07-07 13:47] LABS: ALBUMIN 3.3 g/dl (3.4-5.0); ANION GAP 10 (8-16); BILIRUBIN,TOTAL 0.2 mg/dL (0.2-1.0); CO2 28 mmol/L (21-32); CREATININE 0.7 mg/dL (0.55-1.02); GLUCOSE,RANDOM 119 mg/dL (74-106); SGOT/AST 30 U/L (15-37); SGPT/ALT 33 U/L (12-78); TOT PROT 6.7 g/dl (6.4-8.2)
[2016-07-07 13:50] LABS: ALK PHOS 198 U/L (45-117); TROPONIN I 0.04 ng/ml (0.00-0.05)
[2016-07-07 14:15] LABS: URINE APPEARANCE CLEAR; URINE BILIRUBIN NEGATIVE (NEGATIVE); URINE COLOR LTYELLOW; URINE GLUCOSE (UA) NEGATIVE (NEGATIVE); URINE KETONE NEGATIVE (NEGATIVE); URINE NITRITE NEGATIVE (NEGATIVE); URINE PROTEIN NEGATIVE (NEGATIVE); URINE UROBILINOGEN NEGATIVE E.U./dl (0.2-1.0)
[2016-07-07 14:18] LABS: URINE BLOOD 2+ (NEGATIVE); URINE LEUK ESTERASE 3+ (NEGATIVE)
[2016-07-07 14:20] LABS: URINE BACTERIA FEW /hpf (NONE SEEN); URINE MUCUS RARE; URINE RBC 5 /hpf (0-3); URINE WBC 33 /hpf (3-5)
[2016-07-07] MEDS ORDERED: PIPERACILLIN/TAZOB 3.375 GM/50 ML PRE-DOCKED IVPB ONE (15:00)
[2016-07-07] MEDS ORDERED: VANCOMYCIN 1,000 MG in DEXTROSE 5%-WATER - 250 ML IVPB ONE (15:00)
[2016-07-07] MEDS ORDERED: PIPERACILLIN/TAZOB 3.375 GM 50 ML IVPB ONE (15:11)
[2016-07-07] MEDS ORDERED: VANCOMYCIN 1 GRAM (PRE-DOCKED) 250 ML IVPB ONE (15:11)
--- NOTE | 2016-07-07 16:00 | EKG ---
Test Reason : Blood Pressure : / mmHG Vent. Rate : 105 BPM Atrial Rate : 105 BPM P-R Int : 166 ms QRS Dur : 082 ms QT Int : 342 ms P-R-T Axes : 033 -06 013 degrees QTc Int : 452 ms SINUS TACHYCARDIA OTHERWISE NORMAL ECG WHEN COMPARED WITH ECG OF 28-MAY-2016 12:59, VENT. RATE HAS INCREASED BY 39 BPM Confirmed by TERENCE GARCIA MD ([id number]) on 07/07/2016 4:00:10 PM Referred By: Confirmed By:TERENCE GARCIA MD
--- NOTE | 2016-07-07 17:31 | HP ---
CHIEF COMPLAINT: I fell and my head hurts PCP: Dr. Mabry HISTORY OF PRESENT ILLNESS: 70 yo Urdu speaking F h/o CVA in 2009 with residual forgetfulness and confusion at baseline presented to the ED traumatic injury to her head after multiple mechanical falls. [email or web address] phone used (#[phone]) but patient was anxious , irritated and uncooperative, therefore unable to provide details regarding the falls. Her hospice/home health aide found her laying conscious on the floor when she went to her house. The aid helped her get up but she tripped and fell again when she tried to get up and fix her window shades. Patient stated she also fell yesterday but unwilling to provide details. She denies loss of consciousness, chest pain, sob, fever, chills, urinary or bowel symptoms. 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, ambulates with tri walker Family History: Non-contributory Allergies aspirin Allergy (Severe, Verified 07/07/16 12:39) "NERVOUS" morphine Allergy (Severe, Verified 07/07/16 12:39) "ANXIETY-DESPERATION" HOME MEDICATIONS: Home Medications Medication Instructions Recorded Dexlansoprazole [Dexilant] 60 mg PO DAILY 03/10/16 Escitalopram Oxalate [Lexapro -] 10 mg PO DAILY 03/10/16 Famotidine [Pepcid] 40 mg PO HS 03/10/16 Furosemide [Lasix] 40 mg PO DAILY 03/10/16 Gabapentin 600 mg PO BID 03/10/16 Metoprolol Succinate [Toprol Xl -] 12.5 mg PO DAILY 03/10/16 Potassium Chloride [K-Dur -] 20 meq PO DAILY 03/10/16 Pregabalin [Lyrica -] 75 mg PO BID 03/10/16 Linaclotide [Linzess] 145 mcg PO DAILY 07/07/16 Rifaximin [Xifaxan] 0 mg PO DAILY 07/07/16 REVIEW OF SYSTEMS (refused to answer most questions) CONSTITUTIONAL: Absent: fever, chills, diaphoresis, generalized weakness, malaise, loss of appetite, weight change HEENT: Absent: rhinorrhea, nasal congestion, throat pain, throat swelling, difficulty swallowing, mouth swelling, ear pain, eye pain, visual changes CARDIOVASCULAR: Absent: chest pain, syncope, palpitations, irregular heart rate, lightheadedness , peripheral edema RESPIRATORY: Absent: cough, shortness of breath, dyspnea with exertion, orthopnea, wheezing, stridor, hemoptysis GASTROINTESTINAL: Absent: abdominal pain, abdominal distension, nausea, vomiting, diarrhea, constipation, melena, hematochezia GENITOURINARY: Absent: dysuria, frequency, urgency, hesitancy, hematuria, flank pain, genital pain MUSCULOSKELETAL: Absent: myalgia, arthralgia, joint swelling, back pain, neck pain SKIN: Absent: rash, itching, pallor HEMATOLOGIC/IMMUNOLOGIC: Absent: easy bleeding, easy bruising, lymphadenopathy, frequent infections ENDOCRINE: Absent: unexplained weight gain, unexplained weight loss, heat intolerance, cold intolerance NEUROLOGIC: Absent: headache, focal weakness or paresthesias, dizziness, unsteady gait, seizure, mental status changes, bladder or bowel incontinence PSYCHIATRIC: Absent: anxiety, depression, suicidal or homicidal ideation, hallucinations. PHYSICAL EXAMINATION Last Vital Signs Temp Pulse Resp BP Pulse Ox 98.0 F 95 H 18 156/78 100 07/07/16 12:41 07/07/16 12:41 07/07/16 12:41 07/07/16 12:41 07/07/16 12:41 GENERAL: AAO x3, speak rapidly but repetitively, in no acute distress. HEAD: R parietal/occipital raised bump EYES: Pupils equal, round and reactive to light, extraocular movements intact, sclera anicteric, conjunctiva clear EARS, NOSE, THROAT: , oropharynx clear without exudates. Moist mucous membranes. NECK: Normal range of motion, supple without lymphadenopathy, JVD, or masses. LUNGS: CTAB HEART: RRR, normal S1 and S2 without murmur, rub or gallop. ABDOMEN: Soft, nontender, not distended, normoactive bowel sounds, no guarding, no rebound, no masses. LOWER EXTREMITIES: 2+ pulses, warm, well-perfused. No calf tenderness. +1 bilateral pitting peripheral edema. NEUROLOGICAL: Cranial nerves II-XII intact. Normal speech. Normal gait. PSYCHIATRIC: uncooperative, anxious and nervous SKIN: Warm, dry, normal turgor, erythematous bilateral lower extremities CBCD WBC 9.8 K/mm3 (4.0-10.0) D 07/07/16 13:06 RBC 4.81 M/mm3 (3.60-5.2) 07/07/16 13:06 Hgb 13.2 GM/dL (10.7-15.3) D 07/07/16 13:06 Hct 40.3 % (32.4-45.2) 07/07/16 13:06 MCV 83.9 fl (80-96) 07/07/16 13:06 MCHC 32.7 g/dl (32.0-36.0) 07/07/16 13:06 RDW 17.4 % (11.6-15.6) H D 07/07/16 13:06 Plt Count 246 K/MM3 (134-434) 07/07/16 13:06 MPV 6.9 fl (7.5-11.1) L 07/07/16 13:06 CMP Sodium 131 mmol/L (136-145) L 07/07/16 13:06 Potassium 4.6 mmol/L (3.5-5.1) 07/07/16 13:06 Chloride 93 mmol/L (98-107) L 07/07/16 13:06 Carbon Dioxide 28 mmol/L (21-32) 07/07/16 13:06 Anion Gap 10 (8-16) 07/07/16 13:06 BUN 14 mg/dL (7-18) 07/07/16 13:06 Creatinine 0.7 mg/dL (0.55-1.02) 07/07/16 13:06 Creat Clearance w eGFR > 60 (>60) 07/07/16 13:06 Calcium 9.0 mg/dL (8.5-10.1) 07/07/16 13:06 Total Bilirubin 0.2 mg/dL (0.2-1.0) D 07/07/16 13:06 AST 30 U/L (15-37) D 07/07/16 13:06 ALT 33 U/L (12-78) D 07/07/16 13:06 Alkaline Phosphatase 198 U/L (45-117) H 07/07/16 13:06 Total Protein 6.7 g/dl (6.4-8.2) 07/07/16 13:06 Albumin 3.3 g/dl (3.4-5.0) L 07/07/16 13:06 Urine Test Results Urine Color Ltyellow 07/07/16 14:00 Urine Appearance Clear 07/07/16 14:00 Urine pH 7.0 (5.0-8.0) 07/07/16 14:00 Urine Protein Negative (NEGATIVE) 07/07/16 14:00 Urine Glucose (UA) Negative (NEGATIVE) 07/07/16 14:00 Urine Ketones Negative (NEGATIVE) 07/07/16 14:00 Urine Blood 2+ (NEGATIVE) H 07/07/16 14:00 Urine Nitrite Negative (NEGATIVE) 07/07/16 14:00 Urine Bilirubin Negative (NEGATIVE) 07/07/16 14:00 Ur Leukocyte Esterase 3+ (NEGATIVE) H 07/07/16 14:00 Urine RBC 5 /hpf (0-3) 07/07/16 14:00 Urine WBC 33 /hpf (3-5) 07/07/16 14:00 Ur Epithelial Cells Rare /hpf (FEW) 07/07/16 14:00 Urine Bacteria Few /hpf (NONE SEEN) 07/07/16 14:00 Urine Mucus Rare 07/07/16 14:[address] head on 07/07: R posterior/occipital extracranial hematoma and R small acute subdural hematoma 3-4mm ASSESSMENT/PLAN: 70 yo F h/o CVA in 2009 with residual forgetfulness and confusion at baseline admitted for observation for traumatic head injury after mechanical fall. Traumatic head injury - 2/2 mechanical fall - CT positive for large extracranial hematoma and small subdural hematoma - Keppra 500mg IVPB BID for seizure prophylaxis - Neuro check and vital signs - Repeat CT in AM - Neurology on the case UTI, uncomplicated - Asymptomatic - h/o MRSA on urine culture - Received vanco and zosyn x 1 dose in ED - Pending urine culture - Will start levaquin if symptomatic h/o CVA - Chronic old infarct on CT - Not on asa due to allergy HTN - Cont. toprol XL and lasix HLD - Not on statin - f/u Lipid profile GERD - Cont. PPI Anxiety - Cont. home medication FEN - 1L NS received in ED - Hyponatremia, Cont. to monitor - Sodium control diet Prophylaxis - DVT: SCDs - GI: on home PPI and pepcid Disposition - Repeat CT tomorrow - Await ID input on abx choice on discharge Code status - Full code Visit type - Emergency Visit Emergency Visit: Yes Care time: The patient presented to the Emergency Department on the above date and was hospitalized for further evaluation of their emergent condition. - New Patient This patient is new to me today: Yes Date on this admission: 07/07/16 - Critical Care Critical Care patient: No
[2016-07-07 18:11] VITALS: BMI 31.0
--- NOTE | 2016-07-07 18:25 | PN ---
Teaching Attending Note Name of Resident: Shyam Wilson ATTENDING PHYSICIAN STATEMENT I saw and evaluated the patient. I reviewed the resident's note and discussed the case with the resident. I agree with the resident's findings and plan as documented. SUBJECTIVE: This is a 70-year-old woman with a history of HTN, hyperlipidemia, GERD, kidney stones, PUD, dysphagia, CVA, anxiety who presents to the ER with a headache after falling. She says that her body became weak and she fell to the floor. She was unable to get up and had to be assisted by her greeter. She later tripped and fell backwards, hitting the right side of her head. OBJECTIVE: Vital Signs Period Temp Pulse Resp BP Sys/Christensen Pulse Ox Last 24 Hr 98.0 F 91-95 18-18 148-156/74-78 98-100 HEAD: Right parietal hematoma HEART: S1 S2, RRR LUNGS: Clear ABDOMEN: Soft, non-tender, non-distended, normal BS EXTREMITIES: Trace edema ASSESSMENT AND PLAN: This is a 70-year-old woman with a history of HTN, hyperlipidemia, GERD, kidney stones, PUD, dysphagia, CVA, anxiety who presented to the ER with a headache after falling and hitting her head. 1. Traumatic small subdural hematoma - Repeat head CT in AM - Kera for seizure prophylaxis 2. UTI - Vancomycin, Zosyn given in ER - Start Rocephin - Follow up urine culture 3. History of CVA - Not on aspirin secondary to allergy 4. HTN - Continue Toprol XL, Lasix 5. Hyperlipidemia 6. GERD/PUD - Continue Dexilant 7. Anxiety - Continue Lexapro 8. Hyponatremia - Normal saline given in ER - Monitor electrolytes
[2016-07-07] MEDS: levETIRAcetam 500 MG/5 ML INJECTION VIAL IVPB SCH (22:09)
[2016-07-07] MEDS: ACETAMINOPHEN 325 MG TABLET (FP) PO PRN (22:09)
[2016-07-08 07:20] LABS: MCHC 33.5 g/dl (32.0-36.0); MEAN CELL VOLUME 83.5 fl (80-96); MEAN PLT VOLUME 7.2 fl (7.5-11.1); PLATELET COUNT 233 K/MM3 (134-434); RDW 17.3 % (11.6-15.6)
[2016-07-08 07:54] LABS: CALCIUM 8.4 mg/dL (8.5-10.1); COCKROFT - GAULT 96.492; CREATININE 0.6 mg/dL (0.55-1.02)
[2016-07-08] MEDS ORDERED: PATIENT'S OWN MEDICATION (NON-FORMULARY) (Linaclotide [Linzess] 145 MCG) PO SCH (10:00)
[2016-07-08] MEDS ORDERED: RIFAXIMIN 200 MG TABLET PO SCH (10:00)
[2016-07-08] MEDS: levETIRAcetam 500 MG/5 ML INJECTION VIAL IVPB SCH ×2 (10:43→22:13)
[2016-07-08] MEDS: PANTOPRAZOLE 40 MG TABLET (FP) PO SCH (10:43)
[2016-07-08] MEDS: METOPROLOL SUCCINATE 25 MG TAB.SR.24H (FP) PO SCH (10:43)
[2016-07-08] MEDS: PREGABALIN 75 MG CAPSULE PO SCH ×2 (10:44→22:13)
[2016-07-08] MEDS: POTASSIUM CHLORIDE TABS 20 MEQ TABLET.ER (FP) PO SCH (10:44)
[2016-07-08] MEDS: ESCITALOPRAM OXALATE 10 MG TABLET (FP) PO SCH (10:44)
[2016-07-08] MEDS: GABAPENTIN 300 MG CAPSULE (FP) PO SCH ×2 (10:44→22:13)
[2016-07-08] MEDS: FUROSEMIDE 40 MG TABLET (FP) PO SCH (10:44)
[2016-07-08] MEDS ORDERED: NITROFURANTOIN MACROCRYSTAL 50 MG CAPSULE (FP) PO SCH (12:00)
--- NOTE | 2016-07-08 12:22 | CONSULT ---
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 She was not able to get up on her own, until her steamboat inspector came and helped her get back up. At that time she was feeling fine, until she was in her bedroom attempting to fix her window shades, when she tripped over the side of her bed and fell backwards, hitting the right side of her head. She describes the headache as ranging from mild to moderate, without radiation or modifying factors. Spoke with ER and there were no focal symptoms. CT head showed SDH of 3-5mm, asymptomatic, patient not interested surgical intervention per ER and no deficits. Today, CT head similar with ? increase to 5mm in R frontal/parietal. Past History - Past Medical History Anemia: No Asthma: No Cancer: No Cardiac Disorders: No CVA: Yes (2010,CONFUSED/FORGETFUL AT TIMES) COPD: No CHF: No Dementia: No Diabetes: No GI Disorders: Yes (gerd, gastric ulcer, dysphagia) Disorders: Yes (?kidney stones-PT NOT SURE) HTN: Yes Hypercholesterolemia: Yes Liver Disease: No Suicide Attempt (Hx): No Seizures: (ON DEPAKOTE TO HELP PREVENT AFTER BENIGN TUMOR REMOVAL) Thyroid Disease: No - Surgical History Abdominal Surgery: No Appendectomy: No Cardiac Surgery: No Cholecystectomy: Yes Lung Surgery: No Neurologic Surgery: Yes (brain tumors 2009) Orthopedic Surgery: Yes (RT KNEE REPLACEMENT X 2) - Immunization History Td Vaccination: Yes TDAP Vaccination: No Immunization Up to Date: No - Psycho/Social/Smoking Cessation Hx Anxiety: No Suicidal Ideation: No Smoking Status: No Smoking History: Never smoked Have you smoked in the past 12 months: No Number of Cigarettes Smoked Daily: 0 Cigars Per Day: 0 Hx Alcohol Use: No Drug/Substance Use Hx: No Substance Use Type: None Hx Substance Use Treatment: No - Past Medical History Allergies/Adverse Reactions: Allergies Allergy/AdvReac Type Severity Reaction Status Date / Time aspirin Allergy Severe "NERVOUS" Verified 07/07/16 12:39 morphine Allergy Severe "ANXIETY-DE Verified 07/07/16 12:39 SPERATION" Home Medications: Ambulatory Orders Dexlansoprazole [Dexilant] 60 mg PO DAILY 03/10/16 Escitalopram Oxalate [Lexapro -] 10 mg PO DAILY 03/10/16 Famotidine [Pepcid] 40 mg PO HS 03/10/16 Furosemide [Lasix] 40 mg PO DAILY 03/10/16 Gabapentin 600 mg PO BID 03/10/16 Metoprolol Succinate [Toprol Xl -] 12.5 mg PO DAILY 03/10/16 Potassium Chloride [K-Dur -] 20 meq PO DAILY 03/10/16 Pregabalin [Lyrica -] 75 mg PO BID 03/10/16 Linaclotide [Linzess] 145 mcg PO DAILY 07/07/16 Rifaximin [Xifaxan] 0 mg PO DAILY 07/07/16 Review of Systems GENERAL/CONSTITUTIONAL: No fever or chills. No weakness. HEAD, EYES, EARS, NOSE AND THROAT: No change in vision. No ear pain or discharge. No sore throat. CARDIOVASCULAR: (+) Chest pain. No shortness of breath RESPIRATORY: No cough, wheezing, or hemoptysis. GASTROINTESTINAL: No nausea, vomiting, diarrhea or constipation. GENITOURINARY: No dysuria, frequency, or change in urination. MUSCULOSKELETAL: No joint or muscle swelling or pain. No neck or back pain. SKIN: No rash NEUROLOGIC: (+) Headache. No vertigo, loss of consciousness, or change in strength/sensation. ENDOCRINE: No increased thirst. No abnormal weight change HEMATOLOGIC/LYMPHATIC: No anemia, easy bleeding, or history of blood clots. ALLERGIC/IMMUNOLOGIC: No hives or skin allergy. *Physical Exam - Vital Signs Last Vital Signs Temp Pulse Resp BP Pulse Ox 98.0 F 95 H 18 156/78 100 07/07/16 12:41 07/07/16 12:41 07/07/16 12:41 07/07/16 12:41 07/07/16 12:41 GENERAL: Awake, alert, and fully oriented, in no acute distress HEAD: No signs of trauma, normocephalic, atraumatic EYES: PERRLA, EOMI, sclera anicteric, conjunctiva clear ENT: Auricles normal inspection, hearing grossly normal, nares patent, oropharynx clear without exudates. Moist mucosa NECK: Normal ROM, supple, no lymphadenopathy, JVD, or masses LUNGS: No distress, speaks full sentences, clear to auscultation bilaterally HEART: Regular rate and rhythm, normal S1 and S2, no murmurs, rubs or gallops, peripheral pulses normal and equal bilaterally. ABDOMEN: Soft, nontender, normoactive bowel sounds. No guarding, no rebound. No masses EXTREMITIES: Normal inspection, Normal range of motion, no edema. No clubbing or cyanosis. NEUROLOGICAL: Cranial nerves II through XII grossly intact. Normal speech, strength intact, antalgic gait. CBCD WBC 5.0 K/mm3 (4.0-10.0) D 07/08/16 05:35 RBC 4.47 M/mm3 (3.60-5.2) 07/08/16 05:35 Hgb 12.5 GM/dL (10.7-15.3) 07/08/16 05:35 Hct 37.3 % (32.4-45.2) 07/08/16 05:35 MCV 83.5 fl (80-96) 07/08/16 05:35 MCHC 33.5 g/dl (32.0-36.0) 07/08/16 05:35 RDW 17.3 % (11.6-15.6) H 07/08/16 05:35 Plt Count 233 K/MM3 (134-434) 07/08/16 05:35 MPV 7.2 fl (7.5-11.1) L 07/08/16 05:35 CMP Sodium 134 mmol/L (136-145) L 07/08/16 05:35 Potassium 4.6 mmol/L (3.5-5.1) 07/08/16 05:35 Chloride 97 mmol/L (98-107) L 07/08/16 05:35 Carbon Dioxide 29 mmol/L (21-32) 07/08/16 05:35 Anion Gap 8 (8-16) 07/08/16 05:35 BUN 13 mg/dL (7-18) 07/08/16 05:35 Creatinine 0.6 mg/dL (0.55-1.02) 07/08/16 05:35 Creat Clearance w eGFR > 60 (>60) 07/07/16 13:06 Calcium 8.4 mg/dL (8.5-10.1) L 07/08/16 05:35 Total Bilirubin 0.2 mg/dL (0.2-1.0) D 07/07/16 13:06 AST 30 U/L (15-37) D 07/07/16 13:06 ALT 33 U/L (12-78) D 07/07/16 13:06 Alkaline Phosphatase 198 U/L (45-117) H 07/07/16 13:06 Total Protein 6.7 g/dl (6.4-8.2) 07/07/16 13:06 Albumin 3.3 g/dl (3.4-5.0) L 07/07/16 13:06 - RADIOLOGY Head CT Reviewed by: Dr. Lela Henning Impression: Large hematoma over the right posterior parietal / occipital bone. There is a small acute subdural hemorrhage along the right posterior frontal / parietal lobe margin measuring 3 to 5 mm in width. Medical Decision Making 70 year old female presenting with her steamboat inspector, with a significant past medical history of HTN, HLD, GERD, kidney stones, gastric ulcer, dysphagia and CVA (2009) who presents to the emergency department after multiple falls yesterday. She was not able to get up on her own, until her steamboat inspector came and helped her get back up. At that time she was feeling fine, until she was in her bedroom attempting to fix her window shades, when she tripped over the side of her bed and fell backwards, hitting the right side of her head. She describes the headache as ranging from mild to moderate, without radiation or modifying factors. Spoke with ER and there were no focal symptoms. CT head showed SDH of 3 -5mm, asymptomatic, patient not interested surgical intervention per ER and no deficits. Today, CT head similar with ? increase to 5mm in R frontal/parietal. Will repeat CT this afternoon Fall precautions Started on Keppra for seizure prevention PT/OT IF CT today stable, then can consider D/C for tomorrow unless patient interested in rehab placement Assistive device if needed, will defer to therapist
--- NOTE | 2016-07-08 14:54 | CON.CARD ---
Consult Consult Specialty:: cardiology Reason for Consultation:: syncope; hx multiple comorbidities for CAD - History of Present Illness Chief Complaint: Alert; denies chest pain; + headache. History of Present Illness: The patient is a 70 year old female presenting with her engineering surveyor, with a significant past medical history of s/p "benign" brain tumor removal 2010 after "CVA", HTN, diastolic CHF, HLD, GERD, kidney stones, gastric ulcer, dysphagia, anxiety/panic, s/p right TKR x 2, who presents to the emergency department after multiple falls this morning. She states that this morning she awoke feeling fine but when she was standing, she lost strength throughout her body and fell onto the floor. She was not able to get up on her own, until her engineering surveyor came and helped her get back up. At that time she was feeling fine, until she was in her bedroom attempting to fix her window shades, when she tripped over the side of her bed and fell backwards, hitting the right side of her head. She describes the headache as ranging from mild to moderate, without radiation or modifying factors. She states that she has been experiencing chest pain since yesterday, which radiates from side to side, ranging from mild to moderate. She notes that pressing on the chest exacerbates her pain. The patient denies shortness of breath and dizziness. Denies fever, chills, nausea, vomit, diarrhea and constipation. Denies dysuria, frequency, urgency and hematuria. Allergies: Aspirin, morphine Past surgical history: brain tumors 2009, cholecystectomy, right knee replacement x 2 Persantine MIBI 05/04/2015: no myocardial ischemia;normal LVEF. 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 Cardio/Vascular: Yes: HTN, Hyperlipdemia Gastrointestinal: Yes: GERD, Hiatal Hernia, Peptic Ulcer Disease Psych: Yes: Anxiety Musculoskeletal: Yes: Osteoarthritis Endocrine: Yes: Diabetes Mellitus - Past Surgical History Past Surgical History: Yes: Cataract Removal (bilateral), Joint Replacement (RT KNEE) - Alcohol/Substance Use Hx Alcohol Use: No History of Substance Use: reports: None - Smoking History Smoking history: Never smoked Have you smoked in the past 12 months: No Aproximately how many cigarettes per day: 0 - Social History 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, 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 History of Recent Travel: No Home Medications - Allergies Allergies/Adverse Reactions: Allergies Allergy/AdvReac Type Severity Reaction Status Date / Time aspirin Allergy Severe "NERVOUS" Verified 07/07/16 12:39 morphine Allergy Severe "ANXIETY-DE Verified 07/07/16 12:39 SPERATION" - Home Medications Home Medications: Ambulatory Orders Dexlansoprazole [Dexilant] 60 mg PO DAILY 03/10/16 Escitalopram Oxalate [Lexapro -] 10 mg PO DAILY 03/10/16 Famotidine [Pepcid] 40 mg PO HS 03/10/16 Furosemide [Lasix] 40 mg PO DAILY 03/10/16 Gabapentin 600 mg PO BID 03/10/16 Metoprolol Succinate [Toprol Xl -] 12.5 mg PO DAILY 03/10/16 Potassium Chloride [K-Dur -] 20 meq PO DAILY 03/10/16 Pregabalin [Lyrica -] 75 mg PO BID 03/10/16 Linaclotide [Linzess] 145 mcg PO DAILY 07/07/16 Rifaximin [Xifaxan] 0 mg PO DAILY 07/07/16 Family Disease History - Family Disease History Family History: Denies Review of Systems - Review of Systems Constitutional: reports: Weakness Eyes: reports: No Symptoms HENT: reports: No Symptoms Neck: reports: No Symptoms Cardiovascular: reports: Chest Pain (atypical presentation) Respiratory: reports: SOB on Exertion Gastrointestinal: reports: Indigestion Musculoskeletal: reports: Joint Pain, Muscle Weakness Neurological: reports: Weakness Psychiatric: reports: Anxiety, Panic - Risk Factors Known Risk Factors: Yes: Age, Hypercholesterolemia, Hypertension, Physical Inactivity, Prior NE /Emb Stroke, Other (diastolic CHF) Vital Signs: Vital Signs Temperature 98 F 07/08/16 10:00 Pulse Rate 76 07/08/16 10:00 Respiratory Rate 18 07/08/16 10:00 Blood Pressure 136/78 07/08/16 10:00 O2 Sat by Pulse Oximetry (%) 100 07/07/16 21:00 Constitutional: Yes: Anxious Eyes: Yes: WNL HENT: Yes: Other (pain at site of fall) Respiratory: Yes: Regular Gastrointestinal: Yes: Soft Renal/: No: Anuria Cardiovascular: Yes: Regular Rate and Rhythm JVD: No Carotid Bruit: No PMI: Non-Displaced Heart Sounds: Yes: S1, S2, S4 Murmur: Yes: Systolic Murmur, Grade 1 Musculoskeletal: Yes: Joint Stiffness, Muscle Weakness Extremities: Yes: Cool Edema: No Peripheral Pulses WNL: Yes Integumentary: Yes: Bruising Neurological: Yes: Alert, Oriented Psychiatric: Yes: Other - Other Data Labs, Other Data: CBC, BMP 07/08/16 05:35 07/08/16 05:35 Abnormal Lab Results 07/08/16 07/08/16 07/08/16 05:35 05:35 05:35 RDW 17.3 H MPV 7.2 L Sodium 134 L Chloride 97 L Hemoglobin A1c % 6.1 H D Calcium 8.4 L HDL Cholesterol 74 H D Imaging - Results Chest X-ray: Image Reviewed (no acute pathology) Cat Scan: Report Reviewed (head: subdural hemorrhage/hematoma.) EKG: Image Reviewed (sinus tachycardia) Problem List - Problems (1) Diverticulosis Code(s): K57.90 - DVRTCLOS OF INTEST, PART UNSP, W/O PERF OR ABSCESS W/O BLEED (2) Subdural hematoma Assessment/Plan: neurology f/u. R/o syncope. Code(s): I62.00 - NONTRAUMATIC SUBDURAL HEMORRHAGE, UNSPECIFIED (3) Multiple myeloma Code(s): C90.00 - MULTIPLE MYELOMA NOT HAVING ACHIEVED REMISSION Qualifiers: Multiple myeloma remission status: unspecified Qualified Code(s): C90.00 - Multiple myeloma not having achieved remission (4) Acid reflux disease with ulcer Code(s): K21.9 - GASTRO-ESOPHAGEAL REFLUX DISEASE WITHOUT ESOPHAGITIS (5) Anxiety Code(s): F41.9 - ANXIETY DISORDER, UNSPECIFIED (6) Arthritis Code(s): M19.90 - UNSPECIFIED OSTEOARTHRITIS, UNSPECIFIED SITE (7) Back pain Code(s): M54.9 - DORSALGIA, UNSPECIFIED (8) Chest pain Assessment/Plan: atypical presentation. TNI 0.04; f/u serially. stress Persantine MIBI 04/2015: no myocardial ischemia. Aggressive control of lipids (start atorvastatin). ECHO 12/2015: normal LVEF ; abnormal diastolic compliance; moderate MR and TR. Code(s): R07.9 - CHEST PAIN, UNSPECIFIED Qualifiers: Chest pain type: unspecified Qualified Code(s): R07.9 - Chest pain, unspecified (9) Headache due to trauma Code(s): G44.309 - POST-TRAUMATIC HEADACHE, UNSPECIFIED, NOT INTRACTABLE Qualifiers: Headache chronicity pattern: chronic headache Intractability: not intractable Qualified Code(s): G44.329 - Chronic post-traumatic headache, not intractable (10) History of CVA (cerebrovascular accident) Code(s): Z86.73 - PRSNL HX OF TIA (TIA), AND CEREB INFRC W/O RESID DEFICITS
[2016-07-08] MEDS: CEFTRIAXONE 50 ML IVPB SCH (17:50)
--- NOTE | 2016-07-08 18:17 | PN ---
Physical Exam: SUBJECTIVE: Patient c/o worsening headache, dizziness, and n/v. Denies vision change, chest pain, shortness of breath, urinary symptoms. OBJECTIVE: Vital Signs Period Temp Pulse Resp BP Sys/Christensen Pulse Ox Last 24 Hr 97.8 F-98.4 F 76-98 18-20 106-141/70-79 100-100 GENERAL: AAO x3, speak rapidly but repetitively, in no acute distress. HEAD: R parietal/occipital raised bump slightly decreased in size EYES: Pupils equal, round and reactive to light, extraocular movements intact, sclera anicteric, conjunctiva clear EARS, NOSE, THROAT: oropharynx clear without exudates. Moist mucous membranes. NECK: Normal range of motion, supple without lymphadenopathy, JVD, or masses. LUNGS: CTAB HEART: RRR, normal S1 and S2 without murmur, rub or gallop. ABDOMEN: Soft, nontender, not distended, normoactive bowel sounds, no guarding, no rebound, no masses. LOWER EXTREMITIES: 2+ pulses, warm, well-perfused. No calf tenderness. +1 bilateral pitting peripheral edema. NEUROLOGICAL: Cranial nerves II-XII intact. Normal speech. Normal gait. PSYCHIATRIC: more cooperative, less anxious and nervous SKIN: Warm, dry, normal turgor, erythematous bilateral lower extremities CBCD WBC 5.0 K/mm3 (4.0-10.0) D 07/08/16 05:35 RBC 4.47 M/mm3 (3.60-5.2) 07/08/16 05:35 Hgb 12.5 GM/dL (10.7-15.3) 07/08/16 05:35 Hct 37.3 % (32.4-45.2) 07/08/16 05:35 MCV 83.5 fl (80-96) 07/08/16 05:35 MCHC 33.5 g/dl (32.0-36.0) 07/08/16 05:35 RDW 17.3 % (11.6-15.6) H 07/08/16 05:35 Plt Count 233 K/MM3 (134-434) 07/08/16 05:35 MPV 7.2 fl (7.5-11.1) L 07/08/16 05:35 CMP Sodium 134 mmol/L (136-145) L 07/08/16 05:35 Potassium 4.6 mmol/L (3.5-5.1) 07/08/16 05:35 Chloride 97 mmol/L (98-107) L 07/08/16 05:35 Carbon Dioxide 29 mmol/L (21-32) 07/08/16 05:35 Anion Gap 8 (8-16) 07/08/16 05:35 BUN 13 mg/dL (7-18) 07/08/16 05:35 Creatinine 0.6 mg/dL (0.55-1.02) 07/08/16 05:35 Creat Clearance w eGFR > 60 (>60) 07/07/16 13:06 Calcium 8.4 mg/dL (8.5-10.1) L 07/08/16 05:35 Total Bilirubin 0.2 mg/dL (0.2-1.0) D 07/07/16 13:06 AST 30 U/L (15-37) D 07/07/16 13:06 ALT 33 U/L (12-78) D 07/07/16 13:06 Alkaline Phosphatase 198 U/L (45-117) H 07/07/16 13:06 Total Protein 6.7 g/dl (6.4-8.2) 07/07/16 13:06 Albumin 3.3 g/dl (3.4-5.0) L 07/07/16 13:06 Active Medications Generic Name Dose Route Start Last Admin Trade Name Freq PRN Reason Stop Dose Admin Acetaminophen 650 mg 07/07/16 16:31 07/07/16 22:09 Tylenol - PO 650 mg Q4H PRN Administration FEVER OR PAIN Atorvastatin Calcium 20 mg 07/08/16 22:00 Lipitor - PO HS KATHERINE Escitalopram Oxalate 10 mg 07/08/16 10:00 07/08/16 10:44 Lexapro - PO 10 mg DAILY KATHERINE Administration Furosemide 40 mg 07/08/16 10:00 07/08/16 10:44 Lasix - PO 40 mg DAILY KATHERINE Administration Gabapentin 600 mg 07/08/16 10:00 07/08/16 10:44 Neurontin - PO 600 mg BID KATHERINE Administration Ceftriaxone Sodium 50 mls @ 100 mls/hr 07/08/16 17:15 07/08/16 17:50 Rocephin 1gm Ivpb (Pre-Docked) IVPB 100 mls/hr DAILY KATHERINE Administration Levetiracetam 500 mg 07/07/16 22:00 07/08/16 10:43 Keppra Injection - IVPB 500 mg BID KATHERINE Administration Metoprolol Succinate 12.5 mg 07/08/16 10:00 07/08/16 10:43 Toprol Xl - PO 12.5 mg DAILY KATHERINE Administration Non-Formulary Medication 145 mcg 07/08/16 10:00 Linaclotide [Linzess] PO DAILY KATHERINE Pantoprazole Sodium 40 mg 07/08/16 10:00 07/08/16 10:43 Protonix - PO 40 mg DAILY KATHERINE Administration Potassium Chloride 20 meq 07/08/16 10:00 07/08/16 10:44 K-Dur - PO 20 meq DAILY KATHERINE Administration Pregabalin 75 mg 07/08/16 10:00 07/08/16 10:44 Lyrica - PO 75 mg BID KATHERINE Administration Ranitidine HCl 300 mg 07/08/16 22:00 Zantac - PO HS KATHERINE Rifaximin 200 mg 07/08/16 10:00 Xifaxan - PO DAILY KATHERINE Microbiology 07/07/16 14:00 Urine Culture - Preliminary Urine - Urine Clean Catch Lactose Fermenting Neg Bacilli IMAGING Repeat CT head on 07/08 PM: No significant change compared to AM CT head Repeat CT head on 07/08 AM: Minimal increase in size of previously described right posterior frontal/parietal acute subdural hemorrhage now measuring 5 mm in width. On prior examination it measured 3 mm. Persistent large hematoma over the right posterior parietal/occipital bone CT head on 07/07: R posterior/occipital extracranial hematoma and R small acute subdural hematoma 3-4mm ASSESSMENT/PLAN: 70 yo F h/o CVA in 2009 with residual forgetfulness and confusion at baseline admitted for observation for traumatic head injury after mechanical fall. Traumatic head injury - 2/2 mechanical fall - No change in size of the hematomas on CT in PM vs. AM - Keppra 500mg IVPB BID for seizure prophylaxis - Neuro check and vital signs UTI, uncomplicated - Asymptomatic - h/o MRSA on urine culture - Received vanco and zosyn x 1 dose in ED - Pending final urine culture - On ceftriaxone day 1 h/o CVA - Chronic old infarct on CT - Not on asa due to allergy HTN - Cont. toprol XL and lasix HLD - Not on statin - Lipid profile within normal limits GERD - Cont. PPI Anxiety - Cont. home medication FEN - 1L NS received in ED - Hyponatremia improving, Cont. to monitor - Sodium control diet Prophylaxis - DVT: SCDs - GI: on home PPI and pepcid Disposition - D/C tomorrow if there's no acute event overnight Code status - Full code Visit type - Emergency Visit Emergency Visit: No - New Patient This patient is new to me today: No - Critical Care Critical Care patient: No
--- NOTE | 2016-07-08 18:20 | PN ---
Teaching Attending Note Name of Resident: Shyam Wilson ATTENDING PHYSICIAN STATEMENT I saw and evaluated the patient. I reviewed the resident's note and discussed the case with the resident. I agree with the resident's findings and plan as documented. SUBJECTIVE: Patient complains of headache, dizziness. OBJECTIVE: Vital Signs Period Temp Pulse Resp BP Sys/Christensen Pulse Ox Last 24 Hr 97.8 F-98.4 F 76-98 18-20 106-141/70-79 100-100 HEART: S1 S2, RRR LUNGS: Clear ABDOMEN: Soft, non-tender, non-distended, normal BS EXTREMITIES: No edema ASSESSMENT AND PLAN: This is a 70-year-old woman with a history of HTN, hyperlipidemia, GERD, kidney stones, PUD, dysphagia, CVA, anxiety who presented to the ER with a headache after falling and hitting her head. 1. Traumatic small subdural hematoma - Repeat head CT shows minimal increase in size of subdural hematoma - Neuro consult appreciated - Repeat head CT this afternoon to evaluate for stabilization of hematoma - Continue Keppra for seizure prophylaxis 2. Right parietal scalp hematoma 3. UTI - Continue Rocephin - Follow up urine culture 4. History of CVA - Not on aspirin secondary to allergy - Continue Lipitor 5. HTN - Continue Toprol XL, Lasix 6. Hyperlipidemia - Continue Lipitor 7. GERD/PUD - Continue Protonix 8. Anxiety - Continue Lexapro 9. Hyponatremia - Normal saline given in ER - Improving
[2016-07-08] MEDS: RANITIDINE HCL 150 MG TABLET (FP) PO SCH (22:12)
[2016-07-08] MEDS: ATORVASTATIN CA 20 MG TABLET (FP) PO SCH (22:13)
[2016-07-09 08:17] LABS: MEAN CELL VOLUME 84.8 fl (80-96); MEAN PLT VOLUME 7.6 fl (7.5-11.1); PLATELET COUNT 255 K/MM3 (134-434); RDW 17.3 % (11.6-15.6); WHITE BLOOD COUNT 5.5 K/mm3 (4.0-10.0)
[2016-07-09 08:53] LABS: COCKROFT - GAULT 82.705; CREATININE 0.7 mg/dL (0.55-1.02)
[2016-07-09] MEDS ORDERED: PT OWN MED DRAWER 7, Y5N ONE (09:25)
[2016-07-09] MEDS: levETIRAcetam 500 MG/5 ML INJECTION VIAL IVPB SCH ×2 (10:21→22:44)
[2016-07-09] MEDS: ACETAMINOPHEN 325 MG TABLET (FP) PO PRN ×2 (10:22→15:24)
[2016-07-09] MEDS: METOPROLOL SUCCINATE 25 MG TAB.SR.24H (FP) PO SCH (10:23)
[2016-07-09] MEDS: PANTOPRAZOLE 40 MG TABLET (FP) PO SCH (10:24)
[2016-07-09] MEDS: PREGABALIN 75 MG CAPSULE PO SCH ×2 (10:24→22:44)
[2016-07-09] MEDS: ESCITALOPRAM OXALATE 10 MG TABLET (FP) PO SCH (10:25)
[2016-07-09] MEDS: FUROSEMIDE 40 MG TABLET (FP) PO SCH (10:25)
[2016-07-09] MEDS: GABAPENTIN 300 MG CAPSULE (FP) PO SCH ×2 (10:25→22:44)
[2016-07-09] MEDS: POTASSIUM CHLORIDE TABS 20 MEQ TABLET.ER (FP) PO SCH (10:26)
--- NOTE | 2016-07-09 12:33 | PN ---
Physical Exam: SUBJECTIVE: Patient seen and examined. She complains of dizziness when walking. Headache improving. OBJECTIVE: Vital Signs Period Temp Pulse Resp BP Sys/Christensen Pulse Ox Last 24 Hr 97.5 F-98.3 F 74-87 19-20 114-163/70-92 96 GENERAL: The patient is awake, alert, and fully oriented, in no acute distress. LUNGS: Breath sounds equal, clear to auscultation bilaterally, no wheezes, no crackles, no accessory muscle use. HEART: Regular rate and rhythm, S1, S2 without murmur, rub or gallop. ABDOMEN: Soft, nontender, nondistended, normoactive bowel sounds, no guarding, no rebound, no hepatosplenomegaly, no masses. EXTREMITIES: 2+ pulses, warm, well-perfused, no edema. Laboratory Results - last 24 hr 07/09/16 07/09/16 05:43 05:43 WBC 5.5 RBC 4.51 Hgb 12.6 Hct 38.3 MCV 84.8 MCHC 33.0 RDW 17.3 H Plt Count 255 MPV 7.6 Sodium 135 L Potassium 4.5 Chloride 97 L Carbon Dioxide 27 Anion Gap 11 BUN 14 Creatinine 0.7 Random Glucose 96 Calcium 9.0 Active Medications Generic Name Dose Route Start Last Admin Trade Name Freq PRN Reason Stop Dose Admin Acetaminophen 650 mg 07/07/16 16:31 07/09/16 10:22 Tylenol - PO 650 mg Q4H PRN Administration FEVER OR PAIN Atorvastatin Calcium 20 mg 07/08/16 22:00 07/08/16 22:13 Lipitor - PO 20 mg HS KATHERINE Administration Escitalopram Oxalate 10 mg 07/08/16 10:00 07/09/16 10:25 Lexapro - PO 10 mg DAILY KATHERINE Administration Furosemide 40 mg 07/08/16 10:00 07/09/16 10:25 Lasix - PO 40 mg DAILY KATHERINE Administration Gabapentin 600 mg 07/08/16 10:00 07/09/16 10:25 Neurontin - PO 600 mg BID KATHERINE Administration Ceftriaxone Sodium 50 mls @ 100 mls/hr 07/08/16 17:15 07/08/16 17:50 Rocephin 1gm Ivpb (Pre-Docked) IVPB 100 mls/hr DAILY KATHERINE Administration Levetiracetam 500 mg 07/07/16 22:00 07/09/16 10:21 Keppra Injection - IVPB 500 mg BID KATHERINE Administration Metoprolol Succinate 12.5 mg 07/08/16 10:00 07/09/16 10:23 Toprol Xl - PO 12.5 mg DAILY KATHERINE Administration Non-Formulary Medication 145 mcg 07/08/16 10:00 Linaclotide [Linzess] PO DAILY KATHERINE Pantoprazole Sodium 40 mg 07/08/16 10:00 07/09/16 10:24 Protonix - PO 40 mg DAILY KATHERINE Administration Potassium Chloride 20 meq 07/08/16 10:00 07/09/16 10:26 K-Dur - PO 20 meq DAILY KATHERINE Administration Pregabalin 75 mg 07/08/16 10:00 07/09/16 10:24 Lyrica - PO 75 mg BID KATHERINE Administration Ranitidine HCl 300 mg 07/08/16 22:00 07/08/16 22:12 Zantac - PO 300 mg HS KATHERINE Administration Rifaximin 200 mg 07/08/16 10:00 Xifaxan - PO DAILY KATHERINE ASSESSMENT/PLAN: This is a 70-year-old woman with a history of HTN, hyperlipidemia, GERD, kidney stones, PUD, dysphagia, CVA, anxiety who presented to the ER with a headache after falling and hitting her head. 1. Traumatic small subdural hematoma - Head CT #3 shows no change - Continue Keppra for seizure prophylaxis 2. Right parietal scalp hematoma 3. Headache and dizziness secondary to parietal hematoma/SDH/possible concussion s/p fall with head trauma - Continue Tylenol as needed - Physical therapy 4. Klebsiella UTI - Continue Rocephin 5. History of CVA - Not on aspirin secondary to allergy - Continue Lipitor 6. HTN - Continue Toprol XL, Lasix 7. Hyperlipidemia - Continue Lipitor 8. GERD/PUD - Continue Protonix 9. Anxiety - Continue Lexapro 10. Hyponatremia - Normal saline given in ER - Improving Visit type - Emergency Visit Emergency Visit: Yes ED Registration Date: 07/07/16 Care time: The patient presented to the Emergency Department on the above date and was hospitalized for further evaluation of their emergent condition. - New Patient This patient is new to me today: No - Critical Care Critical Care patient: No - Discharge Referral [facility]erred to [facility] Med P.C[facility] No
[2016-07-09] MEDS: CEFTRIAXONE 50 ML IVPB SCH (14:56)
[2016-07-09] MEDS: RANITIDINE HCL 150 MG TABLET (FP) PO SCH (22:44)
[2016-07-09] MEDS: ATORVASTATIN CA 20 MG TABLET (FP) PO SCH (22:44)
[2016-07-10] MEDS ORDERED: MAG HYDROX/AL HYDROX/SIMETH 355 ML ORAL.SUSP PO ONE (06:37)
[2016-07-10] MEDS ORDERED: PT OWN MED DRAWER 7, Y5N ONE (06:44)
--- NOTE | 2016-07-10 06:59 | HOSP ---
Subjective - Review of Symptoms Gastrointestinal: Yes: Abdominal Pain, Other (epigastric pain ) Physical Examination Vital Signs: Vital Signs Temperature 98.4 F 07/10/16 06:00 Pulse Rate 62 07/10/16 06:00 Respiratory Rate 20 07/10/16 06:00 Blood Pressure 135/76 07/10/16 06:00 O2 Sat by Pulse Oximetry (%) 92 L 07/09/16 21:00 Constitutional: Yes: No Distress, Calm Neck: Yes: WNL Cardiovascular: Yes: Regular Rate and Rhythm, S1, S2 Respiratory: Yes: Regular, CTA Bilaterally Gastrointestinal: Yes: Normal Bowel Sounds, Soft, Abdomen, Obese, Tenderness, Epigastrium ...Rectal Exam: Yes: Deferred Musculoskeletal: Yes: WNL Extremities: Yes: WNL Edema: No Peripheral Pulses WNL: Yes Neurological: Yes: Alert, Oriented Psychiatric: Yes: Alert, Oriented Labs: CBC, BMP 07/09/16 05:43 07/09/16 05:43 Hospitalist Encounter Assessment: Was called to assess a 70 year old female who is a foor historian and somewhat forgetful with pmh of CVA, HTN, diastolic CHF, HLD, GERD, kidney stones, gastric ulcer, dysphagia, anxiety/panic, s/p right Total Knee Replacements x 2 admitted s/p fall with epidural and subdural hematoma who is now complaining of chest pain. When I saw the patient, she looks comfortable and was resting in bed. Her only complaint was mild non radiating epigastric pain and tenderness. No chest pain, palpitation, sob, no dyspnea on exertion. No fever or chills, no n/v . No chest wall tenderness. Impression Epigastric pain r/o ACS PLan EKG 12 leads stat Cardiac profile Maalox/Mylanta Pt is on Ranitidine 300mg PO qhs, consider PPI Pt has aspirin allergy and has acute brain hematoma s/p fall that has slightly increased on last Heat CT Therefore no antiplatelets for now F/u with Dr Rubin Primary Physician Notified: Judson Rubin Visit type - Emergency Visit Emergency Visit: Yes ED Registration Date: 07/07/16 Care time: The patient presented to the Emergency Department on the above date and was hospitalized for further evaluation of their emergent condition. - New Patient This patient is new to me today: Yes Date on this admission: 07/10/16 - Critical Care Critical Care patient: No
[2016-07-10 07:55] LABS: BASOPHIL 0.5 % (0-2.0); MCH 27.8 pg (25.7-33.7); MCHC 32.8 g/dl (32.0-36.0); MEAN CELL VOLUME 84.8 fl (80-96); MEAN PLT VOLUME 7.2 fl (7.5-11.1); NEUTROPHILS 56.7 % (42.8-82.8); PLATELET COUNT 260 K/MM3 (134-434); RDW 17.3 % (11.6-15.6); WHITE BLOOD COUNT 4.9 K/mm3 (4.0-10.0)
[2016-07-10 08:05] LABS: TROPONIN I < 0.02 ng/ml (0.00-0.05)
[2016-07-10 08:30] LABS: COCKROFT - GAULT 72.369; CREATININE 0.8 mg/dL (0.55-1.02)
--- NOTE | 2016-07-10 10:32 | PN ---
Physical Exam: SUBJECTIVE: Patient seen and examined. She still feels dizzy when walking. OBJECTIVE: Vital Signs Period Temp Pulse Resp BP Sys/Christensen Pulse Ox Last 24 Hr 98.0 F-98.4 F 62-84 18-20 101-135/60-76 92 GENERAL: The patient is awake, alert, and fully oriented, in no acute distress. LUNGS: Breath sounds equal, clear to auscultation bilaterally, no wheezes, no crackles, no accessory muscle use. HEART: Regular rate and rhythm, S1, S2 without murmur, rub or gallop. ABDOMEN: Soft, nontender, nondistended, normoactive bowel sounds, no guarding, no rebound, no hepatosplenomegaly, no masses. EXTREMITIES: 2+ pulses, warm, well-perfused, no edema. Laboratory Results - last 24 hr 07/10/16 07/10/16 07/10/16 05:40 05:40 05:40 WBC 4.9 RBC 4.89 Hgb 13.6 Hct 41.5 MCV 84.8 MCHC 32.8 RDW 17.3 H Plt Count 260 MPV 7.2 L Neutrophils % 56.7 D Lymphocytes % 22.0 D Monocytes % 11.8 H Eosinophils % 9.0 H D Basophils % 0.5 Sodium 135 L Potassium 4.8 Chloride 95 L Carbon Dioxide 29 Anion Gap 11 BUN 14 Creatinine 0.8 Random Glucose 98 Calcium 9.0 Creatine Kinase 47 Troponin I < 0.02 Active Medications Generic Name Dose Route Start Last Admin Trade Name Freq PRN Reason Stop Dose Admin Acetaminophen 650 mg 07/07/16 16:31 07/09/16 15:24 Tylenol - PO 650 mg Q4H PRN Administration FEVER OR PAIN Atorvastatin Calcium 20 mg 07/08/16 22:00 07/09/16 22:44 Lipitor - PO 20 mg HS KATHERINE Administration Escitalopram Oxalate 10 mg 07/08/16 10:00 07/09/16 10:25 Lexapro - PO 10 mg DAILY KATHERINE Administration Furosemide 40 mg 07/08/16 10:00 07/09/16 10:25 Lasix - PO 40 mg DAILY KATHERINE Administration Gabapentin 600 mg 07/08/16 10:00 07/09/16 22:44 Neurontin - PO 600 mg BID KATHERINE Administration Ceftriaxone Sodium 50 mls @ 100 mls/hr 07/08/16 17:15 07/09/16 14:56 Rocephin 1gm Ivpb (Pre-Docked) IVPB 100 mls/hr DAILY KATHERINE Administration Levetiracetam 500 mg 07/07/16 22:00 07/09/16 22:44 Keppra Injection - IVPB 500 mg BID KATHERINE Administration Metoprolol Succinate 12.5 mg 07/08/16 10:00 07/09/16 10:23 Toprol Xl - PO 12.5 mg DAILY KATHERINE Administration Non-Formulary Medication 145 mcg 07/08/16 10:00 Linaclotide [Linzess] PO DAILY AKTHERINE Pantoprazole Sodium 40 mg 07/08/16 10:00 07/09/16 10:24 Protonix - PO 40 mg DAILY KATHERINE Administration Potassium Chloride 20 meq 07/08/16 10:00 07/09/16 10:26 K-Dur - PO 20 meq DAILY KATHERINE Administration Pregabalin 75 mg 07/08/16 10:00 07/09/16 22:44 Lyrica - PO 75 mg BID KATHERINE Administration Ranitidine HCl 300 mg 07/08/16 22:00 07/09/16 22:44 Zantac - PO 300 mg HS KATHERINE Administration Rifaximin 200 mg 07/08/16 10:00 Xifaxan - PO DAILY KATHERINE ASSESSMENT/PLAN: This is a 70-year-old woman with a history of HTN, hyperlipidemia, GERD, kidney stones, PUD, dysphagia, CVA, anxiety who presented to the ER with a headache after falling and hitting her head. 1. Traumatic small subdural hematoma - Head CT #3 shows no change - Continue Keppra for seizure prophylaxis - change to PO 2. Right parietal scalp hematoma 3. Headache and dizziness secondary to parietal hematoma/SDH/possible concussion s/p fall with head trauma - Continue Tylenol as needed - Physical therapy 4. Klebsiella UTI - Continue Rocephin 5. History of CVA - Not on aspirin secondary to allergy - Continue Lipitor 6. HTN - Continue Toprol XL, Lasix 7. Hyperlipidemia - Continue Lipitor 8. GERD/PUD - Continue Protonix 9. Anxiety - Continue Lexapro 10. Hyponatremia - Improved Visit type - Emergency Visit Emergency Visit: Yes ED Registration Date: 07/07/16 Care time: The patient presented to the Emergency Department on the above date and was hospitalized for further evaluation of their emergent condition. - New Patient This patient is new to me today: No - Critical Care Critical Care patient: No - Discharge Referral Referred to [facility] No
[2016-07-10] MEDS: METOPROLOL SUCCINATE 25 MG TAB.SR.24H (FP) PO SCH (11:35)
[2016-07-10] MEDS: GABAPENTIN 300 MG CAPSULE (FP) PO SCH ×2 (11:35→21:04)
[2016-07-10] MEDS: PANTOPRAZOLE 40 MG TABLET (FP) PO SCH (11:35)
[2016-07-10] MEDS: FUROSEMIDE 40 MG TABLET (FP) PO SCH (11:36)
[2016-07-10] MEDS: CEFTRIAXONE 50 ML IVPB SCH (11:37)
[2016-07-10] MEDS: ESCITALOPRAM OXALATE 10 MG TABLET (FP) PO SCH (11:37)
[2016-07-10] MEDS: PREGABALIN 75 MG CAPSULE PO SCH ×2 (11:37→21:04)
[2016-07-10] MEDS: POTASSIUM CHLORIDE TABS 20 MEQ TABLET.ER (FP) PO SCH (11:37)
[2016-07-10] MEDS: levETIRAcetam 500 MG TABLET (FP) PO SCH ×2 (12:21→21:04)
[2016-07-10] MEDS: ACETAMINOPHEN 325 MG TABLET (FP) PO PRN ×2 (14:27→19:20)
--- NOTE | 2016-07-10 17:22 | PN ---
Progress Note, Physician Chief Complaint: very small subdural with no brain compression or edema. F/U for Dr. Martínez - Current Medication List Current Medications: Active Medications Acetaminophen (Tylenol -) 650 mg PO Q4H PRN PRN Reason: FEVER OR PAIN Last Admin: 07/10/16 14:27 Dose: 650 mg Atorvastatin Calcium (Lipitor -) 20 mg PO HS [facility] Last Admin: 07/09/16 22:44 Dose: 20 mg Escitalopram Oxalate (Lexapro -) 10 mg PO DAILY [facility] Last Admin: 07/10/16 11:37 Dose: 10 mg Furosemide (Lasix -) 40 mg PO DAILY [facility] Last Admin: 07/10/16 11:36 Dose: 40 mg Gabapentin (Neurontin -) 600 mg PO BID [facility] Last Admin: 07/10/16 11:35 Dose: 600 mg Ceftriaxone Sodium (Rocephin 1gm Ivpb (Pre-Docked)) 50 mls @ 100 mls/hr IVPB DAILY [facility] Last Admin: 07/10/16 11:37 Dose: 100 mls/hr Levetiracetam (Keppra -) 500 mg PO BID [facility] Last Admin: 07/10/16 12:21 Dose: 500 mg Metoprolol Succinate (Toprol Xl -) 12.5 mg PO DAILY [facility] Last Admin: 07/10/16 11:35 Dose: 12.5 mg Non-Formulary Medication (Linaclotide [Linzess]) 145 mcg PO DAILY [facility] Pantoprazole Sodium (Protonix -) 40 mg PO DAILY [facility] Last Admin: 07/10/16 11:35 Dose: 40 mg Potassium Chloride (K-Dur -) 20 meq PO DAILY [facility] Last Admin: 07/10/16 11:37 Dose: 20 meq Pregabalin (Lyrica -) 75 mg PO BID [facility] Last Admin: 07/10/16 11:37 Dose: 75 mg Ranitidine HCl (Zantac -) 300 mg PO HS [facility] Last Admin: 07/09/16 22:44 Dose: 300 mg Rifaximin (Xifaxan -) 200 mg PO DAILY [facility] - Objective Vital Signs: Vital Signs Temperature 98.5 F 07/10/16 15:19 Pulse Rate 87 07/10/16 15:19 Respiratory Rate 20 07/10/16 15:19 Blood Pressure 129/78 07/10/16 15:19 O2 Sat by Pulse Oximetry (%) 92 L 07/10/16 09:00 Neurological: Yes: Cran Nerves II-XII Intact ...Motor Strength: WNL - ....Imaging Cat Scan: Report Reviewed, Image Reviewed (very small right sided subdural hematoma without cerebral mass effect or edema) Problem List - Problems (1) Subdural hematoma Assessment/Plan: She remains without impact from the subdural. She does complain of some headache, though I don't think that the subdural itself is the source. Would treat this conservatively as you are with acetaminophen. Code(s): I62.00 - NONTRAUMATIC SUBDURAL HEMORRHAGE, UNSPECIFIED
[2016-07-10] MEDS: RANITIDINE HCL 150 MG TABLET (FP) PO SCH (21:04)
[2016-07-10] MEDS: ATORVASTATIN CA 20 MG TABLET (FP) PO SCH (21:04)
[2016-07-11 08:37] LABS: CALCIUM 9.4 mg/dL (8.5-10.1); COCKROFT - GAULT 82.705; CREATININE 0.7 mg/dL (0.55-1.02)
--- NOTE | 2016-07-11 09:24 | EKG ---
Test Reason : Blood Pressure : / mmHG Vent. Rate : 067 BPM Atrial Rate : 067 BPM P-R Int : 180 ms QRS Dur : 084 ms QT Int : 408 ms P-R-T Axes : 031 -09 005 degrees QTc Int : 431 ms NORMAL SINUS RHYTHM NORMAL ECG WHEN COMPARED WITH ECG OF 07-JUL-2016 12:38, VENT. RATE HAS DECREASED BY 38 BPM Confirmed by DANIEL BABIN MD ([id number]) on 07/11/2016 9:24:03 AM Referred By: Confirmed By:DANIEL BABIN MD
[2016-07-11] MEDS: CEFTRIAXONE 50 ML IVPB SCH (09:37)
[2016-07-11] MEDS: PREGABALIN 75 MG CAPSULE PO SCH ×2 (09:38→22:19)
[2016-07-11] MEDS: FUROSEMIDE 40 MG TABLET (FP) PO SCH (09:38)
[2016-07-11] MEDS: METOPROLOL SUCCINATE 25 MG TAB.SR.24H (FP) PO SCH (09:38)
[2016-07-11] MEDS: ESCITALOPRAM OXALATE 10 MG TABLET (FP) PO SCH (09:38)
[2016-07-11] MEDS: POTASSIUM CHLORIDE TABS 20 MEQ TABLET.ER (FP) PO SCH (09:38)
[2016-07-11] MEDS: PANTOPRAZOLE 40 MG TABLET (FP) PO SCH (09:38)
[2016-07-11] MEDS: levETIRAcetam 500 MG TABLET (FP) PO SCH ×2 (09:38→22:19)
[2016-07-11] MEDS: GABAPENTIN 300 MG CAPSULE (FP) PO SCH ×2 (09:38→22:20)
--- NOTE | 2016-07-11 11:16 | PN ---
Physical Exam: SUBJECTIVE: Patient seen and examined. She complains of worsening headache. OBJECTIVE: Vital Signs Period Temp Pulse Resp BP Sys/Christensen Pulse Ox Last 24 Hr 97.8 F-98.8 F 73-87 18-20 122-143/72-84 95 GENERAL: The patient is awake, alert, and fully oriented, in no acute distress. LUNGS: Breath sounds equal, clear to auscultation bilaterally, no wheezes, no crackles, no accessory muscle use. HEART: Regular rate and rhythm, S1, S2 without murmur, rub or gallop. ABDOMEN: Soft, nontender, nondistended, normoactive bowel sounds, no guarding, no rebound, no hepatosplenomegaly, no masses. EXTREMITIES: 2+ pulses, warm, well-perfused, no edema. Laboratory Results - last 24 hr 07/10/16 07/10/16 07/10/16 11:40 11:43 18:03 Sodium Potassium Chloride Carbon Dioxide Anion Gap BUN Creatinine POC Glucometer 85 Random Glucose Calcium Troponin I < 0.02 < 0.02 07/11/16 05:40 Sodium 135 L Potassium 4.6 Chloride 95 L Carbon Dioxide 30 Anion Gap 10 BUN 12 Creatinine 0.7 POC Glucometer Random Glucose 95 Calcium 9.4 Troponin I Active Medications Generic Name Dose Route Start Last Admin Trade Name Freq PRN Reason Stop Dose Admin Acetaminophen 650 mg 07/07/16 16:31 07/10/16 19:20 Tylenol - PO 650 mg Q4H PRN Administration FEVER OR PAIN Atorvastatin Calcium 20 mg 07/08/16 22:00 07/10/16 21:04 Lipitor - PO 20 mg HS KATHERINE Administration Escitalopram Oxalate 10 mg 07/08/16 10:00 07/11/16 09:38 Lexapro - PO 10 mg DAILY KATHERINE Administration Furosemide 40 mg 07/08/16 10:00 07/11/16 09:38 Lasix - PO 40 mg DAILY KATHERINE Administration Gabapentin 600 mg 07/08/16 10:00 07/11/16 09:38 Neurontin - PO 600 mg BID KATHERINE Administration Ceftriaxone Sodium 50 mls @ 100 mls/hr 07/08/16 17:15 07/11/16 09:37 Rocephin 1gm Ivpb (Pre-Docked) IVPB 100 mls/hr DAILY KATHERINE Administration Levetiracetam 500 mg 07/10/16 11:45 07/11/16 09:38 Keppra - PO 500 mg BID KATHERINE Administration Metoprolol Succinate 12.5 mg 07/08/16 10:00 07/11/16 09:38 Toprol Xl - PO 12.5 mg DAILY KATHERINE Administration Non-Formulary Medication 145 mcg 07/08/16 10:00 Linaclotide [Linzess] PO DAILY KATHERINE Pantoprazole Sodium 40 mg 07/08/16 10:00 07/11/16 09:38 Protonix - PO 40 mg DAILY KATHERINE Administration Potassium Chloride 20 meq 07/08/16 10:00 07/11/16 09:38 K-Dur - PO 20 meq DAILY KATHERINE Administration Pregabalin 75 mg 07/08/16 10:00 07/11/16 09:38 Lyrica - PO 75 mg BID KATHERINE Administration Ranitidine HCl 300 mg 07/08/16 22:00 07/10/16 21:04 Zantac - PO 300 mg HS KATHERINE Administration Rifaximin 200 mg 07/08/16 10:00 Xifaxan - PO DAILY KATHERINE ASSESSMENT/PLAN: This is a 70-year-old woman with a history of HTN, hyperlipidemia, GERD, kidney stones, PUD, dysphagia, CVA, anxiety who presented to the ER with a headache after falling and hitting her head. 1. Traumatic small subdural hematoma - Head CT #3 shows no change - Continue Keppra for seizure prophylaxis 2. Right parietal scalp hematoma 3. Headache and dizziness secondary to parietal hematoma/SDH/possible concussion s/p fall with head trauma - Continue Tylenol as needed - Continue physical therapy - Repeat head CT for worsening headache 4. Klebsiella UTI - Continue Rocephin 5. History of CVA - Not on aspirin secondary to allergy - Continue Lipitor 6. HTN - Continue Toprol XL, Lasix 7. Hyperlipidemia - Continue Lipitor 8. GERD/PUD - Continue Protonix 9. Anxiety - Continue Lexapro 10. Hyponatremia - Improved 11. Disposition - If head CT stable/improved, can discharge tomorrow - home vs rehab depending on how she does with PT Visit type - Emergency Visit Emergency Visit: Yes ED Registration Date: 07/07/16 Care time: The patient presented to the Emergency Department on the above date and was hospitalized for further evaluation of their emergent condition. - New Patient This patient is new to me today: No - Critical Care Critical Care patient: No - Discharge Referral Referred to [facility] No
[2016-07-11] MEDS: ACETAMINOPHEN 325 MG TABLET (FP) PO PRN (20:26)
[2016-07-11] MEDS: ATORVASTATIN CA 20 MG TABLET (FP) PO SCH (22:19)
[2016-07-11] MEDS: RANITIDINE HCL 150 MG TABLET (FP) PO SCH (22:19)
[2016-07-12] MEDS: CEFTRIAXONE 50 ML IVPB SCH (09:38)
[2016-07-12] MEDS: GABAPENTIN 300 MG CAPSULE (FP) PO SCH ×2 (09:43→21:38)
[2016-07-12] MEDS: levETIRAcetam 500 MG TABLET (FP) PO SCH ×2 (09:43→21:38)
[2016-07-12] MEDS: PREGABALIN 75 MG CAPSULE PO SCH ×2 (09:43→21:38)
[2016-07-12] MEDS: FUROSEMIDE 40 MG TABLET (FP) PO SCH (09:43)
[2016-07-12] MEDS: METOPROLOL SUCCINATE 25 MG TAB.SR.24H (FP) PO SCH (09:43)
[2016-07-12] MEDS: POTASSIUM CHLORIDE TABS 20 MEQ TABLET.ER (FP) PO SCH (09:43)
[2016-07-12] MEDS: PANTOPRAZOLE 40 MG TABLET (FP) PO SCH (09:43)
[2016-07-12] MEDS: ESCITALOPRAM OXALATE 10 MG TABLET (FP) PO SCH (09:43)
--- NOTE | 2016-07-12 11:16 | PN ---
Teaching Attending Note Name of Resident: Shyam Wilson ATTENDING PHYSICIAN STATEMENT I saw and evaluated the patient. I reviewed the resident's note and discussed the case with the resident. I agree with the resident's findings and plan as documented. SUBJECTIVE:c/o tenderness to scalp. no weakness or numbness of the body. denies CP, SOB,fever, chills, N/V/C/D OBJECTIVE: Last Vital Signs Temp Pulse Resp BP Pulse Ox 97.4 F L 90 20 100/51 96 07/12/16 10:07/12/16 10:00 07/12/16 10:07/12/16 10:07/12/16 09:00 General NAD HEENT R parietal hematoma, tender CV S1 S2 RRR no murmur/rub/gallop Neuro CN grossly intact, strength equal all 4 extremities. gait testing deferred ASSESSMENT AND PLAN: 70yo F with PMH CVA, HTN, nephrolithasis presented to the ER after mechanical fall 1. Subdural hematoma- s/p mechanical fall. Hematoma slight increase but now stable. no focal deficits. adina on board. aravind for seizure prophylaxis. 2. Klebsiella UTI- completed 5 day course of Ceftriaxone 3. d/c planning today. explained with [place] [employer] lao speaker new medications. will need to f/u with PMD this week as well as neuro in [address] Morton as outpatient for hx of CVA. answered all questions. verbalized understanding. cont home medications
--- NOTE | 2016-07-12 12:18 | PN ---
Progress Note (short form) - Note Progress Note: Neurology History of Present Illness The patient is a 70 year old female presenting with her assignment clerk, with a significant past medical history of HTN, HLD, GERD, kidney stones, gastric ulcer, dysphagia and CVA (2009) who presents to the emergency department after multiple falls. She was not able to get up on her own, until her assignment clerk came and helped her get back up. At that time she was feeling fine, until she was in her bedroom attempting to fix her window shades, when she tripped over the side of her bed and fell backwards, hitting the right side of her head. She describes the headache as ranging from mild to moderate, without radiation or modifying factors. Spoke with ER and there were no focal symptoms. CT head showed SDH of 3-5mm, asymptomatic, patient not interested surgical intervention per ER and no deficits. CT head repeated and stablized with small blood products. On seizure ppx with keppra. Headache treated conservatively with Tylenol. Active Medications Acetaminophen (Tylenol -) 650 mg PO Q4H PRN PRN Reason: FEVER OR PAIN Last Admin: 07/11/16 20:26 Dose: 650 mg Atorvastatin Calcium (Lipitor -) 20 mg PO HS [facility] Last Admin: 07/11/16 22:19 Dose: 20 mg Escitalopram Oxalate (Lexapro -) 10 mg PO DAILY [facility] Last Admin: 07/12/16 09:43 Dose: 10 mg Furosemide (Lasix -) 40 mg PO DAILY [facility] Last Admin: 07/12/16 09:43 Dose: 40 mg Gabapentin (Neurontin -) 600 mg PO BID [facility] Last Admin: 07/12/16 09:43 Dose: 600 mg Ceftriaxone Sodium (Rocephin 1gm Ivpb (Pre-Docked)) 50 mls @ 100 mls/hr IVPB DAILY [facility] Last Admin: 07/12/16 09:38 Dose: 100 mls/hr Levetiracetam (Keppra -) 500 mg PO BID [facility] Last Admin: 07/12/16 09:43 Dose: 500 mg Metoprolol Succinate (Toprol Xl -) 12.5 mg PO DAILY [facility] Last Admin: 07/12/16 09:43 Dose: 12.5 mg Non-Formulary Medication (Linaclotide [Linzess]) 145 mcg PO DAILY [facility] Pantoprazole Sodium (Protonix -) 40 mg PO DAILY [facility] Last Admin: 07/12/16 09:43 Dose: 40 mg Potassium Chloride (K-Dur -) 20 meq PO DAILY [facility] Last Admin: 07/12/16 09:43 Dose: 20 meq Pregabalin (Lyrica -) 75 mg PO BID [facility] Last Admin: 07/12/16 09:43 Dose: 75 mg Ranitidine HCl (Zantac -) 300 mg PO HS [facility] Last Admin: 07/11/16 22:19 Dose: 300 mg Rifaximin (Xifaxan -) 200 mg PO DAILY [facility] *Physical Exam Vital Signs Temperature 97.4 F L 07/12/16 10:00 Pulse Rate 90 07/12/16 10:00 Respiratory Rate 20 07/12/16 10:00 Blood Pressure 100/51 07/12/16 10:00 O2 Sat by Pulse Oximetry (%) 96 07/12/16 09:00 GENERAL: Awake, alert, and fully oriented, in no acute distress HEAD: No signs of trauma, normocephalic, atraumatic EYES: PERRLA, EOMI, sclera anicteric, conjunctiva clear ENT: Auricles normal inspection, hearing grossly normal, nares patent, oropharynx clear without exudates. Moist mucosa NECK: Normal ROM, supple, no lymphadenopathy, JVD, or masses LUNGS: No distress, speaks full sentences, clear to auscultation bilaterally HEART: Regular rate and rhythm, normal S1 and S2, no murmurs, rubs or gallops, peripheral pulses normal and equal bilaterally. ABDOMEN: Soft, nontender, normoactive bowel sounds. No guarding, no rebound. No masses EXTREMITIES: Normal inspection, Normal range of motion, no edema. No clubbing or cyanosis. NEUROLOGICAL: Cranial nerves II through XII grossly intact. Normal speech, strength intact, antalgic gait. CBCD WBC 4.9 K/mm3 (4.0-10.0) 07/10/16 05:40 RBC 4.89 M/mm3 (3.60-5.2) 07/10/16 05:40 Hgb 13.6 GM/dL (10.7-15.3) 07/10/16 05:40 Hct 41.5 % (32.4-45.2) 07/10/16 05:40 MCV 84.8 fl (80-96) 07/10/16 05:40 MCHC 32.8 g/dl (32.0-36.0) 07/10/16 05:40 RDW 17.3 % (11.6-15.6) H 07/10/16 05:40 Plt Count 260 K/MM3 (134-434) 07/10/16 05:40 MPV 7.2 fl (7.5-11.1) L 07/10/16 05:40 CMP Sodium 135 mmol/L (136-145) L 07/11/16 05:40 Potassium 4.6 mmol/L (3.5-5.1) 07/11/16 05:40 Chloride 95 mmol/L (98-107) L 07/11/16 05:40 Carbon Dioxide 30 mmol/L (21-32) 07/11/16 05:40 Anion Gap 10 (8-16) 07/11/16 05:40 BUN 12 mg/dL (7-18) 07/11/16 05:40 Creatinine 0.7 mg/dL (0.55-1.02) 07/11/16 05:40 Creat Clearance w eGFR > 60 (>60) 07/07/16 13:06 Calcium 9.4 mg/dL (8.5-10.1) 07/11/16 05:40 Total Bilirubin 0.2 mg/dL (0.2-1.0) D 07/07/16 13:06 AST 30 U/L (15-37) D 07/07/16 13:06 ALT 33 U/L (12-78) D 07/07/16 13:06 Alkaline Phosphatase 198 U/L (45-117) H 07/07/16 13:06 Total Protein 6.7 g/dl (6.4-8.2) 07/07/16 13:06 Albumin 3.3 g/dl (3.4-5.0) L 07/07/16 13:06 Medical Decision Making 70 year old female presenting with her assignment clerk, with a significant past medical history of HTN, HLD, GERD, kidney stones, gastric ulcer, dysphagia and CVA (2009) who presents to the emergency department after multiple falls yesterday. She was not able to get up on her own, until her assignment clerk came and helped her get back up. At that time she was feeling fine, until she was in her bedroom attempting to fix her window shades, when she tripped over the side of her bed and fell backwards, hitting the right side of her head. She describes the headache as ranging from mild to moderate, without radiation or modifying factors. Spoke with ER and there were no focal symptoms. CT head showed SDH of 3 -5mm, asymptomatic, patient not interested surgical intervention per ER and no deficits. CTs stable Fall precautions Started on Keppra for seizure prevention PT/OT Assistive device if needed, will defer to therapist Rehab if patient desires
--- NOTE | 2016-07-12 16:07 | DS ---
Physical Exam: SUBJECTIVE: Pt stated that she's feeling much better. Headache and dizziness improved compared to admission day 1. Denies fever, chills, chest pain, sob, n/v, OBJECTIVE: Vital Signs Period Temp Pulse Resp BP Sys/Christensen Pulse Ox Last 24 Hr 97.4 F-99.6 F 80-90 18-20 100-147/51-80 94-96 PHYSICAL EXAM GENERAL: AAO x3, in no acute distress. HEAD: R parietal/occipital raised bump slightly decreased in size EYES: Pupils equal, round and reactive to light, extraocular movements intact, sclera anicteric, conjunctiva clear EARS, NOSE, THROAT: oropharynx clear without exudates. Moist mucous membranes. NECK: Normal range of motion, supple without lymphadenopathy, JVD, or masses. LUNGS: CTAB HEART: RRR, normal S1 and S2 without murmur, rub or gallop. ABDOMEN: Soft, nontender, not distended, normoactive bowel sounds, no guarding, no rebound, no masses. LOWER EXTREMITIES: 2+ pulses, warm, well-perfused. No calf tenderness. +1 bilateral pitting peripheral edema. NEUROLOGICAL: Cranial nerves II-XII intact. Normal speech. Normal gait. SKIN: Warm, dry, normal turgor, erythematous L lower extremity, non-tender HOSPITAL COURSE: Date of Admission:07/10/16 70 yo F h/o CVA in 2009 with residual forgetfulness and confusion at baseline admitted for observation for traumatic head injury after mechanical fall. First CT head on 07/07 showed R posterior/occipital extracranial hematoma and R small acute subdural hematoma 3-4mm. Repeat CT head on 07/08 AM showed Minimal increase in size of previously described right posterior frontal/parietal acute subdural hemorrhage now measuring 5 mm in width. All subsequent CT head showed no change in size of the subdural hematoma. Patient was started on Keppra 500mg IVPB BID for seizure prophylaxis. She's also started on ceftriaxone for uncomplicated UTI. Her UC grew klebsiella, although her prior UC had grown MRSA. She's been asymptomatic, afrebile and with normal WBC. Patient is now in stable condition to be discharged home and cont. on keppra. Will also set up VNS and RN visits for her because she has unsteady gait and h/o multiple falls. She's instructed to follow up with her neurologist and primary care physician with a week. For now, she needs to continue taking keppra till instructed otherwise by her neurologist. Date of Discharge: 07/12/16 Minutes to complete discharge: 35 Discharge Summary Reason For Visit: UTI; SUBDURAL HEMATOME; NON CARDIAC TELEMETRY Current Active Problems Scalp hematoma (Acute) Subdural hematoma (Acute) Dizzinesses (Chronic) Condition: Stable - Instructions Diet, Activity, Other Instructions: Instruction for continuing care: You were admitted to [facility] because of head injury from fall. CAT scan of your head when you first came in showed very tiny bleeding inside your skull and moderate bleeding outside of it. You had several head CT afterwards which showed no more bleeding. The brain doctors have seen you and reviewed the images. You also found to have urinary tract infection, for which you received antibiotics. The director social service has set up home health services. There're visiting nurses go to your home and help you with your daily living activities around the clock. You are stable to be discharged home. Here is a list of things you need to do after being discharge: 1. Follow up with your primary doctor and brain doctor within a week 2. Continue to take keppra 500mg twice a day till you see the brain doctor. He will decide how long you will need take the medication. 3. Come in to the ER if you experience vision change, worsening headache, passing out, weakness in your legs/arms, nausea or vomiting. Referrals: Kaushik Marquez MD [Staff Physician] - Josue Morton DO [Staff Physician] - Paul Martínez MD [Staff Physician] - Disposition: VNS/HOME HEALTH CARE - Home Medications Comprehensive Discharge Medication List: Ambulatory Orders Dexlansoprazole [Dexilant] 60 mg PO DAILY 03/10/16 Escitalopram Oxalate [Lexapro -] 10 mg PO DAILY 03/10/16 Famotidine [Pepcid] 40 mg PO HS 03/10/16 Furosemide [Lasix] 40 mg PO DAILY 03/10/16 Gabapentin 600 mg PO BID 03/10/16 Metoprolol Succinate [Toprol XL -] 12.5 mg PO DAILY 03/10/16 Potassium Chloride [K-Dur -] 20 meq PO DAILY 03/10/16 Pregabalin [Lyrica -] 75 mg PO BID 03/10/16 Linaclotide [Linzess] 145 mcg PO DAILY 07/07/16 Rifaximin [Xifaxan -] 0 mg PO DAILY 07/07/16 Levetiracetam [Keppra -] 500 mg PO BID #60 tablet 07/12/16 This patient is new to me today: No Emergency Visit: No Critical Care patient: No - Discharge Referral Referred to [facility] Med P.C.: No
[2016-07-12] MEDS: ACETAMINOPHEN 325 MG TABLET (FP) PO PRN (21:37)
[2016-07-12] MEDS: RANITIDINE HCL 150 MG TABLET (FP) PO SCH (21:38)
[2016-07-12] MEDS: ATORVASTATIN CA 20 MG TABLET (FP) PO SCH (21:38)
[2016-07-13 06:15] VITALS: TEMP 98.2
[2016-07-13 07:42] VITALS: BP 130/67; PULSE 69
[2016-07-13] MEDS: CEFTRIAXONE 50 ML IVPB SCH (09:55)
[2016-07-13] MEDS: POTASSIUM CHLORIDE TABS 20 MEQ TABLET.ER (FP) PO SCH (09:55)
[2016-07-13] MEDS: GABAPENTIN 300 MG CAPSULE (FP) PO SCH (09:56)
[2016-07-13] MEDS: PREGABALIN 75 MG CAPSULE PO SCH (09:56)
[2016-07-13] MEDS: levETIRAcetam 500 MG TABLET (FP) PO SCH (09:56)
[2016-07-13] MEDS: METOPROLOL SUCCINATE 25 MG TAB.SR.24H (FP) PO SCH (09:56)
[2016-07-13] MEDS: PANTOPRAZOLE 40 MG TABLET (FP) PO SCH (09:56)
[2016-07-13] MEDS: FUROSEMIDE 40 MG TABLET (FP) PO SCH (09:56)
[2016-07-13] MEDS: ESCITALOPRAM OXALATE 10 MG TABLET (FP) PO SCH (09:57)
--- NOTE | 2016-07-13 10:28 | PN ---
Teaching Attending Note Name of Resident: Shyam Wilson ATTENDING PHYSICIAN STATEMENT I saw and evaluated the patient. I reviewed the resident's note and discussed the case with the resident. I agree with the resident's findings and plan as documented. SUBJECTIVE:currently asymptomatic. denies Cp, SOB,fever, chills, numbness/ tingling OBJECTIVE: Last Vital Signs Temp Pulse Resp BP Pulse Ox 98.2 F 69 20 130/67 95 07/13/16 07:38 07/13/16 07:38 07/13/16 07:42 07/13/16 07:38 07/13/16 07:42 General NAD HEENT R parietal hematoma, tender Neuro CN grossly intact, strength equal all 4 extremities. gait testing deferred ASSESSMENT AND PLAN: 70yo F with PMH CVA, HTN, nephrolithasis presented to the ER after mechanical fall 1. Subdural hematoma- s/p mechanical fall. Hematoma slight increase but now stable. no focal deficits. neuro on board. keppra for seizure prophylaxis. no driving or operating heavy machinery until cleared by neurology 2. Klebsiella UTI- completed 5 day course of Ceftriaxone 3. d/c home today. did not go home yesterday as no one was home to receive her. 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
--- NOTE | 2016-07-13 10:42 | PN ---
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 She was not able to get up on her own, until her mandarin chinese teacher came and helped her get back up. At that time she was feeling fine, until she was in her bedroom attempting to fix her window shades, when she tripped over the side of her bed and fell backwards, hitting the right side of her head. She describes the headache as ranging from mild to moderate, without radiation or modifying factors. Spoke with ER and there were no focal symptoms. CT head showed SDH of 3-5mm, asymptomatic, patient not interested surgical intervention per ER and no deficits. CT head repeated and stablized with small blood products. On seizure ppx with keppra. Headache treated conservatively with Tylenol. For discharge today, stable. Active Medications Acetaminophen (Tylenol -) 650 mg PO Q4H PRN PRN Reason: FEVER OR PAIN Last Admin: 07/12/16 21:37 Dose: 650 mg Atorvastatin Calcium (Lipitor -) 20 mg PO HS [facility] Last Admin: 07/12/16 21:38 Dose: 20 mg Escitalopram Oxalate (Lexapro -) 10 mg PO DAILY [facility] Last Admin: 07/13/16 09:57 Dose: 10 mg Furosemide (Lasix -) 40 mg PO DAILY [facility] Last Admin: 07/13/16 09:56 Dose: 40 mg Gabapentin (Neurontin -) 600 mg PO BID [facility] Last Admin: 07/13/16 09:56 Dose: 600 mg Ceftriaxone Sodium (Rocephin 1gm Ivpb (Pre-Docked)) 50 mls @ 100 mls/hr IVPB DAILY [facility] Last Admin: 07/13/16 09:55 Dose: 100 mls/hr Levetiracetam (Keppra -) 500 mg PO BID [facility] Last Admin: 07/13/16 09:56 Dose: 500 mg Metoprolol Succinate (Toprol Xl -) 12.5 mg PO DAILY [facility] Last Admin: 07/13/16 09:56 Dose: 12.5 mg Non-Formulary Medication (Linaclotide [Linzess]) 145 mcg PO DAILY [facility] Pantoprazole Sodium (Protonix -) 40 mg PO DAILY [facility] Last Admin: 07/13/16 09:56 Dose: 40 mg Potassium Chloride (K-Dur -) 20 meq PO DAILY [facility] Last Admin: 07/13/16 09:55 Dose: 20 meq Pregabalin (Lyrica -) 75 mg PO BID [facility] Last Admin: 07/13/16 09:56 Dose: 75 mg Ranitidine HCl (Zantac -) 300 mg PO HS [facility] Last Admin: 07/12/16 21:38 Dose: 300 mg Rifaximin (Xifaxan -) 200 mg PO DAILY [facility] *Physical Exam Vital Signs Temperature 98.2 F 07/13/16 07:38 Pulse Rate 69 07/13/16 07:38 Respiratory Rate 20 07/13/16 07:42 Blood Pressure 130/67 07/13/16 07:38 O2 Sat by Pulse Oximetry (%) 95 07/13/16 07:42 GENERAL: Awake, alert, and fully oriented, in no acute distress HEAD: No signs of trauma, normocephalic, atraumatic EYES: PERRLA, EOMI, sclera anicteric, conjunctiva clear ENT: Auricles normal inspection, hearing grossly normal, nares patent, oropharynx clear without exudates. Moist mucosa NECK: Normal ROM, supple, no lymphadenopathy, JVD, or masses LUNGS: No distress, speaks full sentences, clear to auscultation bilaterally HEART: Regular rate and rhythm, normal S1 and S2, no murmurs, rubs or gallops, peripheral pulses normal and equal bilaterally. ABDOMEN: Soft, nontender, normoactive bowel sounds. No guarding, no rebound. No masses EXTREMITIES: Normal inspection, Normal range of motion, no edema. No clubbing or cyanosis. NEUROLOGICAL: Cranial nerves II through XII grossly intact. Normal speech, strength intact, antalgic gait. CBCD WBC 4.9 K/mm3 (4.0-10.0) 07/10/16 05:40 RBC 4.89 M/mm3 (3.60-5.2) 07/10/16 05:40 Hgb 13.6 GM/dL (10.7-15.3) 07/10/16 05:40 Hct 41.5 % (32.4-45.2) 07/10/16 05:40 MCV 84.8 fl (80-96) 07/10/16 05:40 MCHC 32.8 g/dl (32.0-36.0) 07/10/16 05:40 RDW 17.3 % (11.6-15.6) H 07/10/16 05:40 Plt Count 260 K/MM3 (134-434) 07/10/16 05:40 MPV 7.2 fl (7.5-11.1) L 07/10/16 05:40 CMP Sodium 135 mmol/L (136-145) L 07/11/16 05:40 Potassium 4.6 mmol/L (3.5-5.1) 07/11/16 05:40 Chloride 95 mmol/L (98-107) L 07/11/16 05:40 Carbon Dioxide 30 mmol/L (21-32) 07/11/16 05:40 Anion Gap 10 (8-16) 07/11/16 05:40 BUN 12 mg/dL (7-18) 07/11/16 05:40 Creatinine 0.7 mg/dL (0.55-1.02) 07/11/16 05:40 Creat Clearance w eGFR > 60 (>60) 07/07/16 13:06 Calcium 9.4 mg/dL (8.5-10.1) 07/11/16 05:40 Total Bilirubin 0.2 mg/dL (0.2-1.0) D 07/07/16 13:06 AST 30 U/L (15-37) D 07/07/16 13:06 ALT 33 U/L (12-78) D 07/07/16 13:06 Alkaline Phosphatase 198 U/L (45-117) H 07/07/16 13:06 Total Protein 6.7 g/dl (6.4-8.2) 07/07/16 13:06 Albumin 3.3 g/dl (3.4-5.0) L 07/07/16 13:06 Medical Decision Making 70 year old female 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 She was not able to get up on her own, until her mandarin chinese teacher came and helped her get back up. At that time she was feeling fine, until she was in her bedroom attempting to fix her window shades, when she tripped over the side of her bed and fell backwards, hitting the right side of her head. She describes the headache as ranging from mild to moderate, without radiation or modifying factors. Spoke with ER and there were no focal symptoms. CT head showed SDH of 3 -5mm, asymptomatic, patient not interested surgical intervention per ER and no deficits. CTs stable Fall precautions Started on Keppra for seizure prevention PT/OT Assistive device if needed, will defer to therapist Rehab not approved based on high functionality For discharge home today
== END 2016-07-13 12:10 | disposition home health service (06) | DRG 86 ==
LOC: JER 12:27 → INTOOBSV 16:19 → UNDOADMOB 16:19 → JERBED 16:19 → J4W 17:40 → JERBED 17:40 → OBSVTOIN 07-10 11:03
PROVIDERS: ADMIT Internal Medicine; ATTEND Internal Medicine
DX: S06.5X0A Traumatic subdural hemorrhage without loss of consciousness, initial encounter (principal); N39.0 Urinary tract infection, site not specified; E87.1 Hypo-osmolality and hyponatremia; W19.XXXA Unspecified fall, initial encounter; Y93.9 Activity, unspecified; Y92.89 Other specified places as the place of occurrence of the external cause; Y99.9 Unspecified external cause status; I10 Essential (primary) hypertension; E78.5 Hyperlipidemia, unspecified; K21.9 Gastro-esophageal reflux disease without esophagitis; Z86.73 Personal history of transient ischemic attack (TIA), and cerebral infarction without residual deficits; B96.1 Klebsiella pneumoniae [K. pneumoniae] as the cause of diseases classified elsewhere; R42 Dizziness and giddiness; F41.9 Anxiety disorder, unspecified; S00.03XA Contusion of scalp, initial encounter
CPT/HCPCS: 36415; 70450-TC; 71010-TC; 80048; 80053; 80061; 81003; 81015; 82550; 83036; 83721; 83735; 84484; 85025; 85027; 87086; 87186; 93005; 93010; 93970-TC; 97116-GP; 97161; 99283-25; G0378

== ENCOUNTER 2016-07-29 16:05 | Emergency (ER) | payer OTHER ==
[2016-07-29 16:15] VITALS: TEMP 97.9; BMI 33.2
[2016-07-29] MEDS ORDERED: METOCLOPRAMIDE HCL INJECTION 10 MG/2 ML VIAL IVPB ONE (17:42)
[2016-07-29] MEDS ORDERED: ACETAMINOPHEN 1000 MG/100 ML VIAL (NON FORMULARY) IVPB ONE (17:42)
--- NOTE | 2016-07-29 17:44 | PDOC ---
History of Present Illness - General Chief Complaint: Headache Stated Complaint: HEADACHE/STOMACH PAIN Time Seen by Provider: 07/29/16 17:28 History Source: Patient, [employer] Workers Used ([employer] #[id number] Ezra) Exam Limitations: Language Barrier - History of Present Illness Initial Comments: 07/29/16 17:44 70 yr female with history of HTN, CVA, subdural hematoma (06/29) reflux presents to ER with headache cough and stomach ache ache for 4 days getting worse. pt denies vomiting, no fever or chills no diarrhea. Pt states she has had these symptoms before. PMD: Sarah 07/29/16 17:47 07/29/16 18:06 07/29/16 18:20 Timing/Duration: other (3-4 days) Severity: mild Past History - Past Medical History Allergies/Adverse Reactions: Allergies Allergy/AdvReac Type Severity Reaction Status Date / Time aspirin Allergy Severe "NERVOUS" Verified 07/29/16 16:15 morphine Allergy Severe "ANXIETY-DE Verified 07/29/16 16:15 SPERATION" Home Medications: Ambulatory Orders Dexlansoprazole [Dexilant] 60 mg PO DAILY 03/10/16 Escitalopram Oxalate [Lexapro -] 10 mg PO DAILY 03/10/16 Famotidine [Pepcid] 40 mg PO HS 03/10/16 Furosemide [Lasix] 40 mg PO DAILY 03/10/16 Gabapentin 600 mg PO BID 03/10/16 Metoprolol Succinate [Toprol XL -] 12.5 mg PO DAILY 03/10/16 Potassium Chloride [K-Dur -] 20 meq PO DAILY 03/10/16 Pregabalin [Lyrica -] 75 mg PO BID 03/10/16 Linaclotide [Linzess] 145 mcg PO DAILY 07/07/16 Rifaximin [Xifaxan -] 0 mg PO DAILY 07/07/16 Levetiracetam [Keppra -] 500 mg PO BID #60 tablet 07/12/16 Cephalexin [Keflex] 500 mg PO BID #14 capsule 07/29/16 Phenazopyridine HCl [Pyridium] 200 mg PO TID PRN #9 tablet 07/29/16 Anemia: No Asthma: No Cancer: No Cardiac Disorders: No 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, baseline confusion and dizziness) COPD: No CHF: No Dementia: No Diabetes: No GI Disorders: Yes (gerd, gastric ulcer, dysphagia) Disorders: Yes (kidney stone in the past) HTN: Yes Hypercholesterolemia: Yes Liver Disease: No Psychiatric Problems: Yes Suicide Attempt (Hx): No Seizures: Yes (S/P craniotomy for benign tumor - on Depakote for seizure prophylaxis) Thyroid Disease: No Other medical history: subdural hematoma 07/08/16 - Surgical History Abdominal Surgery: No Appendectomy: No Cardiac Surgery: No Cholecystectomy: Yes Lung Surgery: No Neurologic Surgery: Yes (Craniotomy for Benign Brain tumors 2009) Orthopedic Surgery: (Bilateral knee replacement) - Immunization History Td Vaccination: Yes TDAP Vaccination: No Immunization Up to Date: No - Psycho/Social/Smoking Cessation Hx Anxiety: No Suicidal Ideation: No Smoking Status: No Smoking History: Never smoked Have you smoked in the past 12 months: No Number of Cigarettes Smoked Daily: 0 Cigars Per Day: 0 Hx Alcohol Use: No Drug/Substance Use Hx: No Substance Use Type: None Hx Substance Use Treatment: No Review of Systems - Review of Systems Able to Perform ROS?: Yes Is the patient limited French proficient: Yes Constitutional: No: Symptoms Reported HEENTM: No: Symptoms Reported, Recent change in vision Respiratory: No: Symptoms reported Cardiac (ROS): No: Symptoms Reported ABD/GI: Yes: See HPI : No: Symptoms Reported Musculoskeletal: No: Symptoms Reported Integumentary: No: Symptoms Reported Neurological: Yes: Symptoms reported *Physical Exam - Vital Signs Last Vital Signs Temp Pulse Resp BP Pulse Ox 97.9 F 86 18 167/117 96 07/29/16 16:13 07/29/16 16:13 07/29/16 16:13 07/29/16 16:13 07/29/16 16:13 - Physical Exam General Appearance: Yes: Nourished, Appropriately Dressed, Intoxicated HEENT: positive: EOMI, KARL, Normal ENT Inspection, TMs Normal, Pharynx Normal Neck: positive: Supple. 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 NML intact, Fully Oriented, Alert, Normal Mood/ Affect, Normal Response, Motor Strength 06/17 ED Treatment Course - LABORATORY CBC & Chemistry Diagram: 07/29/16 18:00 07/29/16 18:00 - RADIOLOGY Radiology Studies Ordered: Category Date Time Status HEAD CT WITHOUT CONTRAST [CT] Stat CT Scan 07/29/16 17:42 Ordered CHEST PA & LAT [RAD] Stat Radiology 07/29/16 17:42 Ordered Medical Decision Making - Medical Decision Making 07/29/16 17:55 cc: headache, abd pain will check labs, ct head (pt had subdural last month), pt denies any new falls pt having no diarrhea or vomiting feels nauseas will give reglan, benadryl, tylenol and re-assess 07/29/16 18:58 signed out to Jennifer Villalobos who will follow case. labs, ct US pending. *DC/Admit/Observation/Transfer Diagnosis at time of Disposition: Urinary tract infection in female - Discharge Dispostion Disposition: HOME Condition at time of disposition: Fair - Prescriptions Prescriptions: Cephalexin [Keflex] 500 mg PO BID #14 capsule Phenazopyridine HCl [Pyridium] 200 mg PO TID PRN #9 tablet PRN Reason: urinary pain - Referrals Referrals: Waldo Mabry MD [Primary Care Provider] - - Patient Instructions Printed Discharge Instructions: DI for Urinary Tract Infection (UTI) Additional Instructions: take keflex as directed for 7 days drink plenty of fluids to stay hydrated follow up with dr. mabry next week
[2016-07-29] MEDS ORDERED: METOCLOPRAMIDE HCL INJECTION 10 MG/2 ML VIAL ONE (17:50)
[2016-07-29] MEDS ORDERED: ACETAMINOPHEN INJECTION 100 ML IVPB ONE (17:50)
[2016-07-29 18:14] VITALS: BP 156/81; PULSE 80
[2016-07-29 18:27] LABS: BASOPHIL 0.4 % (0-2.0); EOSINOPHIL 5.2 % (0-4.5); MCH 27.7 pg (25.7-33.7); MCHC 31.8 g/dl (32.0-36.0); MEAN CELL VOLUME 87.3 fl (80-96); MEAN PLT VOLUME 7.6 fl (7.5-11.1); NEUTROPHILS 60.9 % (42.8-82.8); PLATELET COUNT 287 K/MM3 (134-434); RDW 17.3 % (11.6-15.6); WHITE BLOOD COUNT 6.2 K/mm3 (4.0-10.0)
[2016-07-29 18:29] LABS: URINE APPEARANCE CLEAR; URINE BILIRUBIN NEGATIVE (NEGATIVE); URINE COLOR LTYELLOW; URINE GLUCOSE (UA) NEGATIVE (NEGATIVE); URINE KETONE NEGATIVE (NEGATIVE); URINE NITRITE POSITIVE (NEGATIVE); URINE PROTEIN NEGATIVE (NEGATIVE); URINE UROBILINOGEN NEGATIVE E.U./dl (0.2-1.0)
[2016-07-29 18:31] LABS: URINE BLOOD 2+ (NEGATIVE); URINE LEUK ESTERASE 1+ (NEGATIVE)
[2016-07-29] MEDS ORDERED: CEPHALEXIN MONOHYDRATE 500 MG CAPSULE (UD) PO ONE (18:36)
[2016-07-29 18:38] LABS: URINE BACTERIA MANY /hpf (NONE SEEN); URINE MUCUS RARE; URINE RBC 21 /hpf (0-3); URINE WBC 16 /hpf (3-5)
[2016-07-29] MEDS ORDERED: CEPHALEXIN MONOHYDRATE 250 MG CAPSULE (FP) ONE (18:46)
[2016-07-29 18:51] LABS: ALBUMIN 3.6 g/dl (3.4-5.0); ANION GAP 9 (8-16); BILIRUBIN,TOTAL 0.3 mg/dL (0.2-1.0); CALCIUM 9.1 mg/dL (8.5-10.1); CO2 28 mmol/L (21-32); CREATININE 0.6 mg/dL (0.55-1.02); GLUCOSE,RANDOM 115 mg/dL (74-106); SGOT/AST 84 U/L (15-37); SGPT/ALT 92 U/L (12-78); TOT PROT 7.1 g/dl (6.4-8.2)
[2016-07-29 18:52] LABS: ALK PHOS 269 U/L (45-117); AMYLASE 36 U/L (25-115)
--- NOTE | 2016-07-29 19:23 | PDOC ---
*Physical Exam - Vital Signs Last Vital Signs Temp Pulse Resp BP Pulse Ox 97.9 F 80 16 156/81 95 07/29/16 16:13 07/29/16 18:13 07/29/16 18:13 07/29/16 18:13 07/29/16 18:13 - Physical Exam Comments: 07/29/16 19:23 Sign-out received from outgoing ER provider Joe. Pt interviewed and examined. Ancillary studies reviewed. Awaiting labs, head CT. 07/29/16 22:47 CT, CXR, U/S all negative. Will discharge to home with Keflex for UTI. ED Treatment Course - LABORATORY CBC & Chemistry Diagram: 07/29/16 18:00 07/29/16 18:00 - ADDITIONAL ORDERS Additional order review: Laboratory Results 07/29/16 07/29/16 18:00 18:00 Sodium 136 Potassium 4.6 Chloride 99 Carbon Dioxide 28 Anion Gap 9 BUN 13 Creatinine 0.6 Creat Clearance w eGFR > 60 Random Glucose 115 H D Calcium 9.1 Total Bilirubin 0.3 D AST 84 H D ALT 92 H D Alkaline Phosphatase 269 H D Total Protein 7.1 Albumin 3.6 Total Amylase 36 Lipase 147 Urine Color Ltyellow Urine Appearance Clear Urine pH 6.0 Urine Protein Negative Urine Glucose (UA) Negative Urine Ketones Negative Urine Blood 2+ H Urine Nitrite Positive Urine Bilirubin Negative Urine Urobilinogen Negative Ur Leukocyte Esterase 1+ H D Urine RBC 21 Urine WBC 16 Ur Epithelial Cells Rare Urine Bacteria Many Urine Mucus Rare 07/29/16 18:00 RBC 4.73 MCV 87.3 MCHC 31.8 L RDW 17.3 H MPV 7.6 Neutrophils % 60.9 Lymphocytes % 21.8 Monocytes % 11.7 H Eosinophils % 5.2 H Basophils % 0.4 - Medications Given in the ED: ED Medications Discontinued Medications Generic Name Dose Route Start Last Admin Trade Name Freq PRN Reason Stop Dose Admin Acetaminophen 1,000 mg 07/29/16 17:42 07/29/16 17:53 Ofirmev Injection - IVPB 07/29/16 17:43 1,000 mg ONCE ONE Administration Cephalexin HCl 500 mg 07/29/16 18:36 07/29/16 18:47 Keflex - PO 07/29/16 18:37 500 mg ONCE ONE Administration Diphenhydramine HCl 12.5 mg 07/29/16 17:42 06/16/17 17:53 Benadryl Injection - IVPB 07/29/16 17:43 12.5 mg ONCE ONE Administration Metoclopramide HCl 10 mg 07/29/16 17:42 07/29/16 17:54 Reglan Injection - IVPB 07/29/16 17:43 10 mg ONCE ONE Administration *DC/Admit/Observation/Transfer Diagnosis at time of Disposition: Urinary tract infection in female - Prescriptions Prescriptions: Cephalexin [Keflex] 500 mg PO BID #14 capsule Phenazopyridine HCl [Pyridium] 200 mg PO TID PRN #9 tablet PRN Reason: urinary pain - Referrals Referrals: Waldo Mabry MD [Primary Care Provider] - - Patient Instructions Printed Discharge Instructions: DI for Urinary Tract Infection (UTI) Additional Instructions: take keflex as directed for 7 days drink plenty of fluids to stay hydrated follow up with dr. mabry next week - Post Discharge Activity
--- NOTE | 2016-07-30 09:56 | EKG ---
Test Reason : Blood Pressure : / mmHG Vent. Rate : 073 BPM Atrial Rate : 073 BPM P-R Int : 166 ms QRS Dur : 074 ms QT Int : 404 ms P-R-T Axes : 043 007 035 degrees QTc Int : 445 ms NORMAL SINUS RHYTHM NORMAL ECG Confirmed by LARA SARMIENTO MD ([id number]) on 07/30/2016 9:55:28 AM Referred By: Confirmed By:LARA SARMIENTO MD
== END 2016-07-29 23:38 | disposition home or self-care (01) ==
LOC: JER 16:05
PROC: 3E033NZ Introduction of Analgesics, Hypnotics, Sedatives into Peripheral Vein, Percutaneous Approach (ICD-10-PCS; principal; 2016-07-29)
PROC: 3E033GC Introduction of Other Therapeutic Substance into Peripheral Vein, Percutaneous Approach (ICD-10-PCS; 2016-07-29)
PROC: 3E033GC Introduction of Other Therapeutic Substance into Peripheral Vein, Percutaneous Approach (ICD-10-PCS; 2016-07-29)
DX: N39.0 Urinary tract infection, site not specified (principal); I10 Essential (primary) hypertension; Z87.820 Personal history of traumatic brain injury; Z86.73 Personal history of transient ischemic attack (TIA), and cerebral infarction without residual deficits
CPT/HCPCS: 36415; 70450-TC; 71020-TC; 76705-TC; 80053; 81003; 81015; 82150; 83690; 85025; 87086; 87186; 93005; 93010; 96374; 96375; 99282-25

== ENCOUNTER 2016-11-03 21:15 | Emergency (ER) | payer OTHER ==
[2016-11-03 21:37] VITALS: BP 147/92; PULSE 105; TEMP 98.9; BMI 36.3
[2016-11-03] MEDS ORDERED: METOCLOPRAMIDE HCL INJECTION 10 MG/2 ML VIAL IVPB ONE (22:44)
[2016-11-03] MEDS ORDERED: methylPREDNISolone NA SUCC 125 MG/2 ML VIAL IVPB ONE (22:44)
--- NOTE | 2016-11-03 22:45 | PDOC ---
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 Patient denies dizziness, lightheadedness, n/v/d, blurred vision, neck pain, rash, fever, CP, Abd pain or any other complaints at this time. Timing/Duration: reports: increasing Severity: Yes: moderate Episode Description: See HPI Associated Symptoms: reports: denies symptoms Past History - Travel Traveled outside of the country in the last 30 days: No Close contact w/someone who was outside of country & ill: No - Past Medical History Allergies/Adverse Reactions: Allergies Allergy/AdvReac Type Severity Reaction Status Date / Time aspirin Allergy Severe "NERVOUS" Verified 11/03/16 22:30 morphine Allergy Severe "ANXIETY-DE Verified 11/03/16 22:30 SPERATION" Home Medications: Ambulatory Orders Dexlansoprazole [Dexilant] 60 mg PO DAILY 03/10/16 Escitalopram Oxalate [Lexapro -] 10 mg PO DAILY 03/10/16 Famotidine [Pepcid] 40 mg PO HS 03/10/16 Furosemide [Lasix] 40 mg PO DAILY 03/10/16 Gabapentin 600 mg PO BID 03/10/16 Metoprolol Succinate [Toprol XL -] 12.5 mg PO DAILY 03/10/16 Potassium Chloride [K-Dur -] 20 meq PO DAILY 03/10/16 Pregabalin [Lyrica -] 75 mg PO BID 03/10/16 Linaclotide [Linzess] 145 mcg PO DAILY 07/07/16 Rifaximin [Xifaxan -] 550 mg PO DAILY 07/07/16 Levetiracetam [Keppra -] 500 mg PO BID #60 tablet 07/12/16 Anemia: No Asthma: No Cancer: No Cardiac Disorders: No 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, baseline confusion and dizziness) COPD: No CHF: No Dementia: No Diabetes: No GI Disorders: Yes (gerd, gastric ulcer, dysphagia) Disorders: Yes (kidney stone in the past) HTN: Yes Hypercholesterolemia: Yes Liver Disease: No Psychiatric Problems: Yes Seizures: Yes (S/P craniotomy for benign tumor - on Depakote for seizure prophylaxis) Thyroid Disease: No - Surgical History Abdominal Surgery: No Appendectomy: No Cardiac Surgery: No Cholecystectomy: Yes Lung Surgery: No Neurologic Surgery: Yes (Craniotomy for Benign Brain tumors 2009) Orthopedic Surgery: (Bilateral knee replacement) - Immunization History Td Vaccination: Yes TDAP Vaccination: No Immunization Up to Date: No - Suicide/Smoking/Psychosocial Hx Smoking Status: No Smoking History: Never smoked Have you smoked in the past 12 months: No Number of Cigarettes Smoked Daily: 0 Cigars Per Day: 0 Information on smoking cessation initiated: No Hx Alcohol Use: No Drug/Substance Use Hx: No Substance Use Type: None Hx Substance Use Treatment: No Neuro Specific PMHX - Complaint Specific PMHX Glaucoma: No Herniated Disk: No Laminectomy: No Migraine: No Multiple Sclerosis: No Neuropathy: No TIA: No Review of Systems - Review of Systems Able to Perform ROS?: Yes Is the patient limited Pashto proficient: No Constitutional: No: Chills, Fever HEENTM: Yes: Cataracts. No: Eye Pain, Blurred Vision, Recent change in vision, Double Vision Respiratory: No: Cough, Shortness of Breath, Stridor Cardiac (ROS): No: Chest Pain, Chest Tightness Neurological: Yes: Headache. No: Numbness, Paresthesia, Seizure, Tingling, Tremors, Weakness, Unsteady Gait, Ataxia, Dizziness Psychiatric: No: Anxiety All Other Systems: Reviewed and Negative *Physical Exam - Vital Signs Last Vital Signs Temp Pulse Resp BP Pulse Ox 98.9 F 105 H 19 147/92 98 11/03/16 21:33 11/03/16 21:33 11/03/16 21:33 11/03/16 21:33 11/03/16 21:33 - Physical Exam General Appearance: Yes: Nourished, Appropriately Dressed. No: Apparent Distress, Mild Distress, Moderate Distress, Severe Distress HEENT: positive: EOMI, KARL, Normal ENT Inspection, Normal Voice, Symmetrical, TMs Normal, Pharynx Normal. negative: Pharyngeal Erythema, Tonsillar Exudate, Tonsillar Erythema, Nasal Congestion, Rhinorrhea, Sinus Tenderness, TM Bulging, TM Dull, TM Erythema Neck: positive: Trachea midline, Supple. negative: Rigid, Stridor, Lymphadenopathy (R), Lymphadenopathy (L) Respiratory/Chest: positive: Lungs Clear, Normal Breath Sounds. negative: Chest Tender, Respiratory Distress, Accessory Muscle Use, Labored Respiration, Rapid RR, Stridor, Wheezing Cardiovascular: positive: Regular Rhythm, Regular Rate Musculoskeletal: positive: Normal Inspection. negative: CVA Tenderness Extremity: positive: Normal Capillary Refill, Normal Inspection, Normal Range of Motion. negative: Pedal Edema, Swelling, Calf Tenderness, Erythema, Inflammation Integumentary: positive: Normal Color, Dry, Warm. negative: Rash, Swelling Neurologic: positive: story editor II-XII NML intact, Fully Oriented, Alert, Normal Mood/ Affect, Normal Response, Motor Strength 06/17 ED Treatment Course - LABORATORY CBC & Chemistry Diagram: 11/03/16 23:00 11/04/16 00:05 - RADIOLOGY Radiology Studies Ordered: Category Date Time Status HEAD CT WITHOUT CONTRAST [CT] Stat CT Scan 11/03/16 22:44 Ordered *DC/Admit/Observation/Transfer Diagnosis at time of Disposition: Chronic headache Qualifiers: Headache type: tension-type Intractability: not intractable Qualified Code(s): G44.229 - Chronic tension-type headache, not intractable - Discharge Dispostion Disposition: HOME Condition at time of disposition: Improved Admit: No - Patient Instructions Printed Discharge Instructions: DI for Headache Additional Instructions: Louisa un seguimiento con perla proveedor de atencin primaria esta semana para tavo evaluacin posterior. Helix devorah medicamentos segn lo prescrito. Regrese si los s ntomas empeoran para tavo evaluacin posterior. Follow up with your primary care provider this week for further evaluation. Take your medications as prescribed. Return if symptoms worsen for further evaluation. Print Language: SAO TOMEAN
[2016-11-03] MEDS ORDERED: methylPREDNISolone NA SUCC 125 MG/2 ML VIAL ONE (22:48)
[2016-11-03] MEDS ORDERED: METOCLOPRAMIDE HCL INJECTION 10 MG/2 ML VIAL ONE (22:48)
[2016-11-03 23:04] LABS: BASOPHIL 0.4 % (0-2.0); EOSINOPHIL 1.3 % (0-4.5); MCH 29.3 pg (25.7-33.7); MCHC 33.3 g/dl (32.0-36.0); MEAN PLT VOLUME 6.9 fl (7.5-11.1); NEUTROPHILS 75.6 % (42.8-82.8); PLATELET COUNT 321 K/MM3 (134-434); RDW 15.1 % (11.6-15.6); WHITE BLOOD COUNT 9.2 K/mm3 (4.0-10.0)
[2016-11-03 23:17] LABS: INR 0.99 (0.82-1.09); PROTHROMBIN TIME (PATIENT) 10.9 SEC (9.98-11.88)
[2016-11-03 23:20] LABS: ACTIVATED PTT 33.4 SECONDS (26.9-34.4)
[2016-11-04 01:07] LABS: ALBUMIN 3.8 g/dl (3.4-5.0); ALK PHOS 242 U/L (45-117); ANION GAP 10 (8-16); BILIRUBIN,TOTAL 0.5 mg/dL (0.2-1.0); CALCIUM 9.1 mg/dL (8.5-10.1); CO2 24 mmol/L (21-32); CREATININE 0.7 mg/dL (0.55-1.02); GLUCOSE,RANDOM 135 mg/dL (74-106); SGOT/AST 34 U/L (15-37); SGPT/ALT 47 U/L (12-78); TOT PROT 7.6 g/dl (6.4-8.2)
--- NOTE | 2016-11-04 01:33 | PDOC ---
*Physical Exam - Vital Signs Last Vital Signs Temp Pulse Resp BP Pulse Ox 98.9 F 105 H 19 147/92 98 11/03/16 21:33 11/03/16 21:33 11/03/16 21:33 11/03/16 21:33 11/03/16 21:33 ED Treatment Course - LABORATORY CBC & Chemistry Diagram: 11/03/16 23:00 11/04/16 00:05 - ADDITIONAL ORDERS Additional order review: Laboratory Results 11/04/16 11/03/16 11/03/16 00:05 23:00 23:00 PT with INR 10.90 INR 0.99 PTT (Actin FS) 33.4 Sodium 131 L Cancelled Potassium 4.5 Cancelled Chloride 97 L Cancelled Carbon Dioxide 24 Cancelled Anion Gap 10 Cancelled BUN 16 D Cancelled Creatinine 0.7 Cancelled Creat Clearance w eGFR > 60 Cancelled Random Glucose 135 H Cancelled Calcium 9.1 Cancelled Total Bilirubin 0.5 D Cancelled AST 34 D Cancelled ALT 47 D Cancelled Alkaline Phosphatase 242 H Cancelled Total Protein 7.6 Cancelled Albumin 3.8 Cancelled 11/03/16 23:00 RBC 4.62 MCV 88.0 MCHC 33.3 RDW 15.1 D MPV 6.9 L Neutrophils % 75.6 D Lymphocytes % 14.3 D Monocytes % 8.4 Eosinophils % 1.3 Basophils % 0.4 - Medications Given in the ED: ED Medications Discontinued Medications Generic Name Dose Route Start Last Admin Trade Name Freq PRN Reason Stop Dose Admin Diphenhydramine HCl 12.5 mg 11/03/16 22:44 11/03/16 23:00 Benadryl Injection - IVPUSH 11/03/16 22:45 12.5 mg ONCE ONE Administration Methylprednisolone Sodium Succinate 125 mg 11/03/16 22:44 11/03/16 23:00 Solu-Medrol - IVPB 11/03/16 22:45 125 mg ONCE ONE Administration Metoclopramide HCl 10 mg 11/03/16 22:44 11/03/16 23:06 Reglan Injection - IVPB 11/03/16 22:45 10 mg ONCE ONE Administration Medical Decision Making - Medical Decision Making 11/04/16 01:32 Patient seen and evaluated with the nurse practitioner. I agree with the overall evaluation, assessment, and management with the following summary of visit: 71-year-old female with extensive neurological history presents with chronic headache Plan for CT imaging Shows no acute hemorrhage or infarct, shows questionable 4 mm left frontal lobe dense mass without mass effect or edema and for which MRI can be performed for further evaluation. Patient was advised of lesion, has availability to follow-up for MRI, understands return criteria. *DC/Admit/Observation/Transfer Diagnosis at time of Disposition: Mass of left frontal lobe Chronic headache Qualifiers: Headache type: tension-type Intractability: not intractable Qualified Code(s): G44.229 - Chronic tension-type headache, not intractable - Discharge Dispostion Disposition: HOME Condition at time of disposition: Improved - Referrals - Patient Instructions Printed Discharge Instructions: DI for Headache Additional Instructions: Louisa un seguimiento con perla proveedor de atencin primaria esta semana para tavo evaluacin posterior. Soldier devorah medicamentos segn lo prescrito. Regrese si los s ntomas empeoran para tavo evaluacin posterior. Follow up with your primary care provider this week for further evaluation. Take your medications as prescribed. Return if symptoms worsen for further evaluation. Print Language: SERBIAN - Post Discharge Activity
== END 2016-11-04 01:41 | disposition home or self-care (01) ==
LOC: JER 21:15
PROC: 3E0333Z Introduction of Anti-inflammatory into Peripheral Vein, Percutaneous Approach (ICD-10-PCS; principal; 2016-11-03)
PROC: 3E033GC Introduction of Other Therapeutic Substance into Peripheral Vein, Percutaneous Approach (ICD-10-PCS; 2016-11-03)
PROC: 3E033GC Introduction of Other Therapeutic Substance into Peripheral Vein, Percutaneous Approach (ICD-10-PCS; 2016-11-03)
DX: G44.229 Chronic tension-type headache, not intractable (principal); I10 Essential (primary) hypertension; E78.00 Pure hypercholesterolemia, unspecified; G40.909 Epilepsy, unspecified, not intractable, without status epilepticus; F41.9 Anxiety disorder, unspecified; K21.9 Gastro-esophageal reflux disease without esophagitis; I69.893 Ataxia following other cerebrovascular disease; Z87.442 Personal history of urinary calculi
CPT/HCPCS: 36415; 70450-TC; 80053; 85025; 85610; 85730; 99282-25

== ENCOUNTER 2016-11-20 13:44 | Emergency (ER) | payer OTHER ==
[2016-11-20 13:50] VITALS: BMI 33.5
--- NOTE | 2016-11-20 15:42 | PDOC ---
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 Patient states her headache is bifrontal, nonradiating, 7/10, but at its worst it is 10/10. Patient states she always has these same headaches and she comes in to the ED for an injection. Patient only wants this injection so she can go home. She does not want an MRI. Patient denies dizziness, lightheadedness, n/v/d, blurred vision, neck pain, rash, fever, CP, Abd pain or any other complaints at this time. SH: Denies Allergies-Aspirin, morphine PCP: Dr. Morgan Neurologist: Dr. Morton 11/20/16 16:02 Past History - Past Medical History Allergies/Adverse Reactions: Allergies Allergy/AdvReac Type Severity Reaction Status Date / Time aspirin Allergy Severe "NERVOUS" Verified 11/20/16 13:50 morphine Allergy Severe "ANXIETY-DE Verified 11/20/16 13:50 SPERATION" Home Medications: Ambulatory Orders Dexlansoprazole [Dexilant] 60 mg PO DAILY 03/10/16 Escitalopram Oxalate [Lexapro -] 10 mg PO DAILY 03/10/16 Famotidine [Pepcid] 40 mg PO HS 03/10/16 Furosemide [Lasix] 40 mg PO DAILY 03/10/16 Gabapentin 600 mg PO BID 03/10/16 Metoprolol Succinate [Toprol XL -] 12.5 mg PO DAILY 03/10/16 Potassium Chloride [K-Dur -] 20 meq PO DAILY 03/10/16 Pregabalin [Lyrica -] 75 mg PO BID 03/10/16 Linaclotide [Linzess] 145 mcg PO DAILY 07/07/16 Rifaximin [Xifaxan -] 550 mg PO DAILY 07/07/16 Levetiracetam [Keppra -] 500 mg PO BID #60 tablet 07/12/16 Anemia: No Asthma: No Cancer: No Cardiac Disorders: No 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, baseline confusion and dizziness) COPD: No CHF: No Dementia: No Diabetes: No GI Disorders: Yes (gerd, gastric ulcer, dysphagia) Disorders: Yes (kidney stone in the past) HTN: Yes Hypercholesterolemia: Yes Liver Disease: No Psychiatric Problems: Yes Seizures: Yes (S/P craniotomy for benign tumor - on Depakote for seizure prophylaxis) Thyroid Disease: No - Surgical History Abdominal Surgery: No Appendectomy: No Cardiac Surgery: No Cholecystectomy: Yes Lung Surgery: No Neurologic Surgery: Yes (Craniotomy for Benign Brain tumors 2009) Orthopedic Surgery: (Bilateral knee replacement) - Immunization History Td Vaccination: Yes TDAP Vaccination: No Immunization Up to Date: No - Suicide/Smoking/Psychosocial Hx Smoking Status: No Smoking History: Never smoked Have you smoked in the past 12 months: No Number of Cigarettes Smoked Daily: 0 Cigars Per Day: 0 Information on smoking cessation initiated: No Hx Alcohol Use: No Drug/Substance Use Hx: No Substance Use Type: None Hx Substance Use Treatment: No Review of Systems - Review of Systems Able to Perform ROS?: Yes Comments:: 11/20/16 15:41 GENERAL/CONSTITUTIONAL: No fever or chills. No weakness. HEAD, EYES, EARS, NOSE AND THROAT: No change in vision. No ear pain or discharge. No sore throat. CARDIOVASCULAR: No chest pain or shortness of breath RESPIRATORY: No cough, wheezing, or hemoptysis. GASTROINTESTINAL: No nausea, vomiting, diarrhea or constipation. GENITOURINARY: No dysuria, frequency, or change in urination. MUSCULOSKELETAL: No joint or muscle swelling or pain. No neck or back pain. SKIN: No rash NEUROLOGIC: +headache, No vertigo, loss of consciousness, or change in strength/ sensation. ENDOCRINE: No increased thirst. No abnormal weight change HEMATOLOGIC/LYMPHATIC: No anemia, easy bleeding, or history of blood clots. ALLERGIC/IMMUNOLOGIC: No hives or skin allergy. *Physical Exam - Vital Signs Last Vital Signs Temp Pulse Resp BP Pulse Ox 98.3 F 70 18 126/66 98 11/20/16 13:48 11/20/16 13:48 11/20/16 13:48 11/20/16 13:48 11/20/16 13:48 - Physical Exam Comments: 11/20/16 15:41 GENERAL: Awake, alert, and fully oriented, in no acute distress HEAD: No signs of trauma, normocephalic, atraumatic. +tenderness to palpation of bilateral frontal region of head EYES: PERRLA, EOMI, sclera anicteric, conjunctiva clear ENT: Auricles normal inspection, hearing grossly normal, nares patent, oropharynx clear without exudates. Moist mucosa NECK: Normal ROM, supple, no lymphadenopathy, JVD, or masses LUNGS: No distress, speaks full sentences, clear to auscultation bilaterally HEART: Regular rate and rhythm, normal S1 and S2, no murmurs, rubs or gallops, peripheral pulses normal and equal bilaterally. ABDOMEN: Soft, nontender, normoactive bowel sounds. No guarding, no rebound. No masses EXTREMITIES: Normal inspection, Normal range of motion, no edema. No clubbing or cyanosis. NEUROLOGICAL: Cranial nerves II through XII grossly intact. Normal speech, normal gait, no focal sensorimotor deficits SKIN: Warm, Dry, normal turgor, no rashes or lesions noted. ED Treatment Course - LABORATORY CBC & Chemistry Diagram: 11/20/16 16:20 11/20/16 16:20 Medical Decision Making - Medical Decision Making 11/20/16 16:02 71 yo Female with pmh of subdural hematoma, CVA, HTN, HLD, Cataracts w/ corrective surgery, Seizures s/p Brain surgery for Benign Cerebral Tumor, anxiety, GERD, and frequent ER visits for H/A presents to ED c/o H/A Given hx/physical, will order cbc, cmp, iv tylenol, iv reglan, and ns. Patient declines CT head Patient's last CT concerning for possible nodule. Discussed with patient importance of follow up MRI for this nodule outpatient 11/20/16 18:08 Patient feels much better and would like to be discharged home. Patient explained again the importance of follow up MRI for abnormal finding on CT outpatient *DC/Admit/Observation/Transfer Diagnosis at time of Disposition: Headache Qualifiers: Headache type: tension-type Headache chronicity pattern: unspecified pattern Intractability: not intractable Qualified Code(s): G44.209 - Tension-type headache, unspecified, not intractable - Discharge Dispostion Disposition: HOME Condition at time of disposition: Stable - Referrals Referrals: Waldo Mabry MD [Primary Care Provider] - Josue Morton DO [Staff Physician] - - Patient Instructions Printed Discharge Instructions: DI for Headache Additional Instructions: Please follow up with your primary care provider within 1 week. Please follow up with your neurologist within 1 week. Please make sure to discuss the findings of your CT results. If you have chest pain, shortness of breath, or any new/worsening symptoms please come back to the hospital immediately.
[2016-11-20] MEDS ORDERED: SODIUM CHLORIDE 500 ML IV STA (15:59)
[2016-11-20] MEDS ORDERED: ACETAMINOPHEN 1000 MG/100 ML VIAL (NON FORMULARY) IVPB ONE (15:59)
[2016-11-20] MEDS ORDERED: METOCLOPRAMIDE HCL INJECTION 10 MG/2 ML VIAL IVPUSH ONE (15:59)
--- NOTE | 2016-11-20 16:04 | PDOC ---
Attending Attestation - Resident Resident Name: Ra Susanhil - ED Attending Attestation I have performed the following: I have examined & evaluated the patient, The case was reviewed & discussed with the resident, I agree w/resident's findings & plan, Exceptions are as noted - HPI HPI: 11/20/16 15:54 71yo F hx SDH, CVA, seizure d/o 2/2 benign tumor, HTN p/w 1 day of bifrontal headache, gradual onset, started while she was sitting on the couch, a/w photophobia. Pt reports this is exactly like her previous headaches but she came to the ED because we can always give her an injection that makes her headache better. Per our EMR, pt had a frontal mass visualized on CTH 2 weeks ago. Pt was advised to follow up with her doctor for an MRI to evaluate the mass but the patient has not had an MRI yet. Pt took motrin for the pain with no relief. She denies any fevers, chills, visual changes, focal weakness or numbness, neck stiffness. She denies any chest pain, shortness of breath, diaphoresis. She denies any nausea, vomiting, diarrhea, abdominal pain. Denies any dysuria. Denies lower extremity edema. - Physicial Exam PE: 11/20/16 16:04 GENERAL: Awake, alert, and fully oriented, in no acute distress HEAD: No signs of trauma EYES: PERRLA, EOMI, sclera anicteric, conjunctiva clear ENT: Auricles normal inspection, hearing grossly normal, nares patent, oropharynx clear without exudates. Moist mucosa NECK: Normal ROM, supple, no lymphadenopathy, JVD, or masses LUNGS: Breath sounds equal, clear to auscultation bilaterally. No wheezes, and no crackles HEART: Regular rate and rhythm, normal S1 and S2, no murmurs, rubs or gallops ABDOMEN: Soft, nontender, normoactive bowel sounds. No guarding, no rebound. No masses EXTREMITIES: Normal range of motion, no edema. No clubbing or cyanosis. No cords, erythema, or tenderness NEUROLOGICAL: Normal speech, cranial nerves intact, negative pronator drift, 5/ 5 strength in all 4 extremities, normal sensation to light touch in all 4 extremities, normal cerebellar exam, normal gait, normal reflexes and tone SKIN: Warm, Dry, normal turgor, no rashes or lesions noted. - Medical Decision Making 11/20/16 16:04 71-year-old female with a history of seizures, subdural hematoma, brain tumor complicated by seizures, headaches presents to the emergency department with a bifrontal headache that she states is typical of her usual headache. Vitals and exam are unremarkable. Differential includes tension headache versus migraine headache versus headache. There are no red flags (no sudden onset headache, pt is neurologically intact), however pt has yet to follow up for an MRI for the frontal mass seen here last on CT. We offered the patient a CTH here today but she declines and states that this headache is no different then her previous headaches. She promises to follow up with her primary doctor for an MRI within the next week. Plan: -labs -iv tylenol/reglan/IVF -reassess
[2016-11-20] MEDS ORDERED: ACETAMINOPHEN INJECTION 100 ML IVPB ONE (16:18)
[2016-11-20] MEDS ORDERED: METOCLOPRAMIDE HCL INJECTION 10 MG/2 ML VIAL ONE (16:18)
[2016-11-20 16:31] LABS: BASOPHIL 0.4 % (0-2.0); EOSINOPHIL 2.3 % (0-4.5); MCH 29.1 pg (25.7-33.7); MEAN CELL VOLUME 88.3 fl (80-96); MEAN PLT VOLUME 6.8 fl (7.5-11.1); NEUTROPHILS 72.6 % (42.8-82.8); PLATELET COUNT 301 K/MM3 (134-434); RDW 15.3 % (11.6-15.6); WHITE BLOOD COUNT 7.4 K/mm3 (4.0-10.0)
[2016-11-20 16:58] LABS: ALBUMIN 3.3 g/dl (3.4-5.0); ANION GAP 8 (8-16); CALCIUM 8.5 mg/dL (8.5-10.1); CO2 27 mmol/L (21-32); CREATININE 0.7 mg/dL (0.55-1.02); GLUCOSE,RANDOM 100 mg/dL (74-106); SGOT/AST 53 U/L (15-37); SGPT/ALT 63 U/L (12-78)
[2016-11-20 17:00] LABS: ALK PHOS 241 U/L (45-117); BILIRUBIN,TOTAL 0.4 mg/dL (0.2-1.0)
[2016-11-20 18:54] VITALS: BP 120/64; PULSE 76; TEMP 98.1
== END 2016-11-20 19:00 | disposition home or self-care (01) ==
LOC: JER 13:44
PROC: 3E033NZ Introduction of Analgesics, Hypnotics, Sedatives into Peripheral Vein, Percutaneous Approach (ICD-10-PCS; principal; 2016-11-20)
PROC: 3E033GC Introduction of Other Therapeutic Substance into Peripheral Vein, Percutaneous Approach (ICD-10-PCS; 2016-11-20)
PROC: 3E0337Z Introduction of Electrolytic and Water Balance Substance into Peripheral Vein, Percutaneous Approach (ICD-10-PCS; 2016-11-20)
DX: G44.209 Tension-type headache, unspecified, not intractable (principal); I10 Essential (primary) hypertension; G40.909 Epilepsy, unspecified, not intractable, without status epilepticus; F41.9 Anxiety disorder, unspecified; K21.9 Gastro-esophageal reflux disease without esophagitis; Z86.73 Personal history of transient ischemic attack (TIA), and cerebral infarction without residual deficits; Z86.79 Personal history of other diseases of the circulatory system; Z88.6 Allergy status to analgesic agent; Z87.442 Personal history of urinary calculi
CPT/HCPCS: 36415; 80053; 85025; 99283-25

== ENCOUNTER 2016-11-29 18:22 | Emergency (ER) | payer OTHER ==
[2016-11-29 18:31] VITALS: TEMP 98.4; BMI 33.2
--- NOTE | 2016-11-29 19:01 | PDOC ---
History of Present Illness - General History Source: Patient, Old Records Exam Limitations: No Limitations - History of Present Illness Initial Comments: 11/29/16 19:44 The patient is a 71 year old female, with a significant past medical history of HTN, hyperlipidemia, cerebral tumor removal (2009), s/p CVA (2009), GERD, gastric ulcer, seizures (on Depakote) and anxiety, who presents to the emergency department with a headache and dizziness since yesterday. She describes her headache as ranging from mild to moderate, localized in the left side of her forehead, with radiation to her face. She denies any modifying factors. She states that the pain is causing her to have intermittent dizziness. She reports that she has been taking Tylenol and Motrin during this time period without any relieve. The patient has been to the ED over 10 times in 2017 for the same complaints and has had 9 head CTs. The last time the patient was in the ED was a couple of weeks ago with the same complaint. She was given an injection and discharged after improvement of symptoms. The patient denies chest pain, shortness of breath, fever, chills, nausea, vomit , diarrhea and constipation. Denies dysuria, frequency, urgency and hematuria. Allergies: Aspirin, Morphine Past Surgical History: Cholecystectomy, Brain Tumors (2010), Rt Knee Replacement x 2. Social History: Non smoker. Denies alcohol or drug use. PCP: Dr. Mabry <Eamon Shaw - Last Filed: 11/29/16 19:41> <Florinda Gallagher - Last Filed: 11/29/16 22:39> - General Chief Complaint: Headache Stated Complaint: PAIN Time Seen by Provider: 11/29/16 18:47 Past History <Eamon Shaw - Last Filed: 11/29/16 19:41> - Past Medical History Anemia: No Asthma: No Cancer: No Cardiac Disorders: No 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, baseline confusion and dizziness) COPD: No CHF: No Dementia: No Diabetes: No GI Disorders: Yes (gerd, gastric ulcer, dysphagia) Disorders: Yes (kidney stone in the past) HTN: Yes Hypercholesterolemia: Yes Liver Disease: No Psychiatric Problems: Yes Seizures: Yes (S/P craniotomy for benign tumor - on Depakote for seizure prophylaxis) Thyroid Disease: No - Surgical History Abdominal Surgery: Yes Appendectomy: No Cardiac Surgery: No Cholecystectomy: Yes Lung Surgery: No Neurologic Surgery: Yes (Craniotomy for Benign Brain tumors 2009) Orthopedic Surgery: (Bilateral knee replacement) - Immunization History Td Vaccination: Yes TDAP Vaccination: No Immunization Up to Date: No - Suicide/Smoking/Psychosocial Hx Smoking Status: No Smoking History: Never smoked Have you smoked in the past 12 months: No Number of Cigarettes Smoked Daily: 0 Cigars Per Day: 0 Hx Alcohol Use: No Drug/Substance Use Hx: No Substance Use Type: None Hx Substance Use Treatment: No <Florinda Gallagher - Last Filed: 11/29/16 22:39> - Past Medical History Allergies/Adverse Reactions: Allergies Allergy/AdvReac Type Severity Reaction Status Date / Time aspirin Allergy Severe "NERVOUS" Verified 11/29/16 18:26 morphine Allergy Severe "ANXIETY-DE Verified 11/29/16 18:26 SPERATION" Home Medications: Ambulatory Orders Dexlansoprazole [Dexilant] 60 mg PO DAILY 03/10/16 Escitalopram Oxalate [Lexapro -] 10 mg PO DAILY 03/10/16 Famotidine [Pepcid] 40 mg PO HS 03/10/16 Furosemide [Lasix] 40 mg PO DAILY 03/10/16 Gabapentin 600 mg PO BID 03/10/16 Metoprolol Succinate [Toprol XL -] 12.5 mg PO DAILY 03/10/16 Potassium Chloride [K-Dur -] 20 meq PO DAILY 03/10/16 Pregabalin [Lyrica -] 75 mg PO BID 03/10/16 Linaclotide [Linzess] 145 mcg PO DAILY 07/07/16 Rifaximin [Xifaxan -] 550 mg PO DAILY 07/07/16 Levetiracetam [Keppra -] 500 mg PO BID #60 tablet 07/12/16 Neuro Specific PMHX - Complaint Specific PMHX Glaucoma: No Herniated Disk: No Laminectomy: No Migraine: No Multiple Sclerosis: No TIA: No <Florinda Gallagher - Last Filed: 11/29/16 22:39> Review of Systems - Review of Systems Able to Perform ROS?: Yes Comments:: 11/29/16 19:43 GENERAL/CONSTITUTIONAL: No fever or chills. No weakness. HEAD, EYES, EARS, NOSE AND THROAT: No change in vision. No ear pain or discharge. No sore throat.- CARDIOVASCULAR: No chest pain or shortness of breath RESPIRATORY: No cough, wheezing, or hemoptysis. GASTROINTESTINAL: No nausea, vomiting, diarrhea or constipation. GENITOURINARY: No dysuria, frequency, or change in urination. MUSCULOSKELETAL: No joint or muscle swelling or pain. No neck or back pain. SKIN: No rash NEUROLOGIC: (+) Headache and dizziness. No loss of consciousness, or change in strength/sensation. ENDOCRINE: No increased thirst. No abnormal weight change HEMATOLOGIC/LYMPHATIC: No anemia, easy bleeding, or history of blood clots. ALLERGIC/IMMUNOLOGIC: No hives or skin allergy. <Eamon Shaw - Last Filed: 11/29/16 19:41> *Physical Exam - Vital Signs Last Vital Signs Temp Pulse Resp BP Pulse Ox 98.4 F 104 H 18 136/68 98 11/29/16 18:23 11/29/16 18:23 11/29/16 18:23 11/29/16 18:23 11/29/16 18:23 - Physical Exam Comments: 11/29/16 19:43 GENERAL: Awake, alert, and fully oriented, in no acute distress HEAD: No signs of trauma, normocephalic, atraumatic EYES: PERRLA, EOMI, sclera anicteric, conjunctiva clear ENT: Auricles normal inspection, hearing grossly normal, nares patent, oropharynx clear without exudates. Moist mucosa NECK: Normal ROM, supple, no lymphadenopathy, JVD, or masses LUNGS: No distress, speaks full sentences, clear to auscultation bilaterally HEART: Regular rate and rhythm, normal S1 and S2, no murmurs, rubs or gallops, peripheral pulses normal and equal bilaterally. ABDOMEN: Soft, nontender, normoactive bowel sounds. No guarding, no rebound. No masses EXTREMITIES : Normal inspection, Normal range of motion, no edema. No clubbing or cyanosis. NEUROLOGICAL: Cranial nerves II through XII grossly intact. Normal speech, normal gait, no focal sensorimotor deficits SKIN: Warm, Dry, normal turgor, no rashes or lesions noted. <Eamon Shaw - Last Filed: 11/29/16 19:41> - Vital Signs Last Vital Signs Temp Pulse Resp BP Pulse Ox 98.4 F 104 H 18 136/68 98 11/29/16 18:23 11/29/16 18:23 11/29/16 18:23 11/29/16 18:23 11/29/16 18:23 <Florinda Gallagher - Last Filed: 11/29/16 22:39> Medical Decision Making - Medical Decision Making 11/29/16 22:37 71-year-old female presents to the emergency department with a frontal headache. She does have chronic headaches, but also has a history of craniotomy and brain bleed in the past. She is followed by Dr. Peterson her neurologist She denies any visual changes, vomiting, slurred speech, confusion, or extremity weakness Patient was given Reglan and Benadryl and her headache resolved She is requesting to go home at this time Impression, tension headache <Florinda Gallagher - Last Filed: 11/29/16 22:39> *DC/Admit/Observation/Transfer - Attestations Scribe Attestion: 11/29/16 19:43 Documentation prepared by Eamon Shaw, acting as medical imaging tech for Florinda Gallagher MD <Eamon Shaw - Last Filed: 11/29/16 19:41> <Florinda Gallagher - Last Filed: 11/29/16 22:39> Diagnosis at time of Disposition: Headache above the eye region - Discharge Dispostion Disposition: HOME Condition at time of disposition: Stable - Referrals Referrals: Waldo Mabry MD [Primary Care Provider] - - Patient Instructions Printed Discharge Instructions: DI for Hormonal and Tension Headaches Additional Instructions: please followup with your regular physician Print Language: PERSIAN
[2016-11-29] MEDS ORDERED: METOCLOPRAMIDE HCL INJECTION 10 MG/2 ML VIAL IVPB ONE (19:02)
[2016-11-29] MEDS ORDERED: METOCLOPRAMIDE HCL INJECTION 10 MG/2 ML VIAL ONE (19:50)
[2016-11-29 22:56] VITALS: BP 145/84; PULSE 85
== END 2016-11-29 22:56 | disposition home or self-care (01) ==
LOC: SUPCPDRO 18:22 → JER 18:22
PROC: 3E033GC Introduction of Other Therapeutic Substance into Peripheral Vein, Percutaneous Approach (ICD-10-PCS; principal; 2016-11-29)
DX: R51 Headache (principal); I10 Essential (primary) hypertension; E78.5 Hyperlipidemia, unspecified; K21.9 Gastro-esophageal reflux disease without esophagitis; F41.9 Anxiety disorder, unspecified; Z86.69 Personal history of other diseases of the nervous system and sense organs; Z86.73 Personal history of transient ischemic attack (TIA), and cerebral infarction without residual deficits
CPT/HCPCS: 96374; 96375; 99282-25

== ENCOUNTER 2016-12-02 18:35 | Emergency (ER) | payer OTHER ==
[2016-12-02 18:43] VITALS: BP 155/89; PULSE 92; TEMP 98.8; BMI 31.2
--- NOTE | 2016-12-02 20:01 | PDOC ---
History of Present Illness - General Chief Complaint: Headache Stated Complaint: HEADACHE Time Seen by Provider: 12/02/16 19:55 History Source: Patient Exam Limitations: No Limitations - History of Present Illness Initial Comments: 12/02/16 20:08 Neurologist: Dr. Recinos. next appointment will be sometime next week. 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 Patient states her headache felt better after her last ER visit. Patient states she's been taken Tylenol intermittently with mild relief. Patient has had numerous visits to the emergency department for the same visit this year along with approximately 9-10 head CTs. Patient states she has an appointment with a neurologist next week. Timing/Duration: reports: 24 hours Associated Symptoms: reports: denies symptoms Past History - Past Medical History Allergies/Adverse Reactions: Allergies Allergy/AdvReac Type Severity Reaction Status Date / Time aspirin Allergy Severe "NERVOUS" Verified 12/02/16 18:41 morphine Allergy Severe "ANXIETY-DE Verified 12/02/16 18:41 SPERATION" Home Medications: Ambulatory Orders Dexlansoprazole [Dexilant] 60 mg PO DAILY 03/10/16 Escitalopram Oxalate [Lexapro -] 10 mg PO DAILY 03/10/16 Famotidine [Pepcid] 40 mg PO HS 03/10/16 Furosemide [Lasix] 40 mg PO DAILY 03/10/16 Gabapentin 600 mg PO BID 03/10/16 Metoprolol Succinate [Toprol XL -] 12.5 mg PO DAILY 03/10/16 Potassium Chloride [K-Dur -] 20 meq PO DAILY 03/10/16 Pregabalin [Lyrica -] 75 mg PO BID 03/10/16 Linaclotide [Linzess] 145 mcg PO DAILY 07/07/16 Rifaximin [Xifaxan -] 550 mg PO DAILY 07/07/16 Levetiracetam [Keppra -] 500 mg PO BID #60 tablet 07/12/16 Anemia: No Asthma: No Cancer: No Cardiac Disorders: No 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, baseline confusion and dizziness) COPD: No CHF: No Dementia: No Diabetes: No GI Disorders: Yes (gerd, gastric ulcer, dysphagia) Disorders: Yes (kidney stone in the past) HTN: Yes Hypercholesterolemia: Yes Liver Disease: No Psychiatric Problems: Yes Seizures: Yes (S/P craniotomy for benign tumor - on Depakote for seizure prophylaxis) Thyroid Disease: No - Surgical History Abdominal Surgery: Yes Appendectomy: No Cardiac Surgery: No Cholecystectomy: Yes Lung Surgery: No Neurologic Surgery: Yes (Craniotomy for Benign Brain tumors 2009) Orthopedic Surgery: (Bilateral knee replacement) - Immunization History Td Vaccination: Yes TDAP Vaccination: No Immunization Up to Date: No - Suicide/Smoking/Psychosocial Hx Smoking Status: No Smoking History: Never smoked Have you smoked in the past 12 months: No Number of Cigarettes Smoked Daily: 0 Cigars Per Day: 0 Hx Alcohol Use: No Drug/Substance Use Hx: No Substance Use Type: None Hx Substance Use Treatment: No Neuro Specific PMHX - Complaint Specific PMHX Glaucoma: No Herniated Disk: No Laminectomy: No Migraine: No Multiple Sclerosis: No TIA: No Review of Systems - Review of Systems Able to Perform ROS?: Yes Comments:: 12/02/16 20:00 CONSTITUTIONAL: Absent: fever, chills, diaphoresis, generalized weakness, malaise, loss of appetite HEENT: Absent: rhinorrhea, nasal congestion, throat pain, throat swelling, difficulty swallowing, mouth swelling, ear pain, eye pain, visual Changes CARDIOVASCULAR: Absent: chest pain, loss of consciousness, palpitations, irregular heart rate, peripheral edema RESPIRATORY: Absent: cough, shortness of breath, dyspnea with exertion, orthopnea, wheezing, stridor, hemoptysis GASTROINTESTINAL: Absent: abdominal pain, abdominal distension, nausea, vomiting, diarrhea, constipation, melena, hematochezia GENITOURINARY: Absent: dysuria, frequency, urgency, hesitancy, hematuria, flank pain, genital pain MUSCULOSKELETAL: Absent: myalgia, arthralgia, joint swelling SKIN: Absent: rash, itching, pallor HEMATOLOGIC/IMMUNOLOGIC: Absent: easy bleeding, easy bruising, lymphadenopathy, frequent infections ENDOCRINE: Absent: unexplained weight gain, unexplained weight loss, heat intolerance, cold intolerance NEUROLOGIC: +left frontal GALLARDO Absent: focal weakness or paresthesias, dizziness, unsteady gait, seizure, mental status changes, bladder or bowel incontinence Is the patient limited Turkish proficient: No *Physical Exam - Vital Signs Last Vital Signs Temp Pulse Resp BP Pulse Ox 98.8 F 92 H 18 155/89 98 12/02/16 18:37 12/02/16 18:37 12/02/16 18:37 12/02/16 18:37 12/02/16 18:37 - Physical Exam Comments: 12/02/16 20:00 GENERAL: Well developed, well nourished. Awake and alert. No acute distress. HEENT: Normocephalic, atraumatic. PERRLA, EOMI. No conjunctival pallor. Sclera are non- icteric. Moist mucous membranes. Oropharynx is clear. NECK: Supple. Full ROM. No JVD. Carotid pulses 2+ and symmetric, without bruits. No thyromegaly. No lymphadenopathy. CARDIOVASCULAR: Regular rate and rhythm. No murmurs, rubs, or gallops. Distal pulses are 2+ and symmetric. PULMONARY: No evidence of respiratory distress. Lungs clear to auscultation bilaterally. No wheezing, rales or rhonchi. ABDOMINAL: Soft. Non-tender. Non-distended. No rebound or guarding. No organomegaly. Normoactive bowel sounds. MUSCULOSKELETAL Normal range of motion at all joints. No bony deformities or tenderness. No CVA tenderness. EXTREMITIES: No cyanosis. No clubbing. No edema. No calf tenderness. SKIN: Warm and dry. Normal capillary refill. No rashes. No jaundice. NEUROLOGICAL: Alert, awake, appropriate. Cranial nerves 2-12 intact. No deficits to light touch and temperature in face, upper extremities and lower extremities. No motor deficits in the in face, upper extremities and lower extremities. Normoreflexic in the upper and lower extremities. Normal speech. Toes are down- going bilaterally. Gait is normal without ataxia. PSYCHIATRIC: Cooperative. Good eye contact. Appropriate mood and affect. Progress Note - Progress Note Progress Note: 2033hrs: Pt is pain free and wishes to be d/c. *DC/Admit/Observation/Transfer Diagnosis at time of Disposition: Tension headache - Discharge Dispostion Condition at time of disposition: Stable Admit: No - Referrals Referrals: Waldo Mabry MD [Primary Care Provider] - Zoraida Mcgowan MD [Staff Physician] - - Patient Instructions Printed Discharge Instructions: Tension Headache Additional Instructions: Return to the ER for severe/persistent/worsening symptoms REturn to the ER for severe/persistent/worsening symptoms
[2016-12-02] MEDS ORDERED: METOCLOPRAMIDE HCL INJECTION 10 MG/2 ML VIAL IVPUSH ONE (20:05)
[2016-12-02] MEDS ORDERED: SODIUM CHLORIDE 1,000 ML IV STA (20:06)
[2016-12-02] MEDS ORDERED: METOCLOPRAMIDE HCL INJECTION 10 MG/2 ML VIAL ONE (20:21)
== END 2016-12-02 21:18 | disposition home or self-care (01) ==
LOC: JERFT 18:35
PROC: 3E0337Z Introduction of Electrolytic and Water Balance Substance into Peripheral Vein, Percutaneous Approach (ICD-10-PCS; principal; 2016-12-02)
PROC: 3E033GC Introduction of Other Therapeutic Substance into Peripheral Vein, Percutaneous Approach (ICD-10-PCS; 2016-12-02)
DX: G44.209 Tension-type headache, unspecified, not intractable (principal); I10 Essential (primary) hypertension; E78.00 Pure hypercholesterolemia, unspecified; K21.9 Gastro-esophageal reflux disease without esophagitis; F41.9 Anxiety disorder, unspecified; Z86.73 Personal history of transient ischemic attack (TIA), and cerebral infarction without residual deficits; Z86.69 Personal history of other diseases of the nervous system and sense organs
CPT/HCPCS: 96361; 96374; 99281-25

== ENCOUNTER 2016-12-15 12:54 | Emergency (ER) | payer OTHER ==
[2016-12-15 12:58] VITALS: TEMP 98.6; BMI 33.2
[2016-12-15 14:58] LABS: URINE APPEARANCE CLEAR; URINE BILIRUBIN NEGATIVE (NEGATIVE); URINE BLOOD 2+ (NEGATIVE); URINE COLOR YELLOW; URINE GLUCOSE (UA) NEGATIVE (NEGATIVE); URINE KETONE NEGATIVE (NEGATIVE); URINE NITRITE NEGATIVE (NEGATIVE); URINE PROTEIN NEGATIVE (NEGATIVE); URINE UROBILINOGEN NEGATIVE mg/dL (0.2-1.0)
[2016-12-15] MEDS ORDERED: ONDANSETRON 4 MG/2 ML VIAL IVPB ONE (15:25)
[2016-12-15] MEDS ORDERED: ACETAMINOPHEN 1000 MG/100 ML VIAL (NON FORMULARY) IVPB ONE (15:25)
[2016-12-15] MEDS ORDERED: MAG HYDROX/AL HYDROX/SIMETH 30 ML UNIT-DOSE CUP PO ONE (15:25)
[2016-12-15] MEDS ORDERED: PANTOPRAZOLE SODIUM 40 MG in SODIUM CHLORIDE 100 ML IVPB ONE (15:25)
[2016-12-15 15:33] LABS: URINE BACTERIA FEW /hpf (NONE SEEN); URINE MUCUS RARE; URINE RBC 9 /hpf (0-3); URINE WBC 4 /hpf (3-5)
[2016-12-15] MEDS: SODIUM CHLORIDE 1,000 ML IV STA ×2 (15:49→15:53)
[2016-12-15] MEDS ORDERED: ACETAMINOPHEN INJECTION 100 ML IVPB ONE (15:55)
[2016-12-15] MEDS ORDERED: MAG HYDROX/AL HYDROX/SIMETH 30 ML UNIT-DOSE CUP ONE (15:55)
[2016-12-15] MEDS ORDERED: PANTOPRAZOLE SODIUM 100 ML IVPB ONE (15:55)
[2016-12-15] MEDS ORDERED: ONDANSETRON 4 MG/2 ML VIAL ONE (15:55)
[2016-12-15 16:14] LABS: BASOPHIL 1.2 % (0-2.0); EOSINOPHIL 1.2 % (0-4.5); MCH 29.2 pg (25.7-33.7); MCHC 33.4 g/dl (32.0-36.0); MEAN CELL VOLUME 87.3 fl (80-96); MEAN PLT VOLUME 7.1 fl (7.5-11.1); NEUTROPHILS 73.3 % (42.8-82.8); PLATELET COUNT 374 K/MM3 (134-434); WHITE BLOOD COUNT 8.2 K/mm3 (4.0-10.0)
[2016-12-15 16:30] LABS: INR 0.98 (0.82-1.09); PROTHROMBIN TIME (PATIENT) 11.1 SEC (9.98-11.88)
--- NOTE | 2016-12-15 16:43 | PDOC ---
History of Present Illness - General Chief Complaint: Pain Stated Complaint: ABD PAIN Time Seen by Provider: 12/15/16 14:27 - History of Present Illness Initial Comments: 12/15/16 16:36 "71-year-old female with a history of hyperlipidemia, hypertension, PUD, seizures, anxiety, GERD presents to the emergency department complaining of epigastric burning. The burning pain is constant, non-radiating. Denies diarrhea but reports some constipation for the past 2 days. Endorses nausea without vomiting. No CP/SOB. No flank pain. No dysuria. She denies any fever or chills. She denies any hematuria, hematochezia or dysuria. Denies any headache, lightheadedness or dizziness. Her PCP is Dr. Kinney. Her Gi is Dr. Grubbs " Past History - Past Medical History Allergies/Adverse Reactions: Allergies Allergy/AdvReac Type Severity Reaction Status Date / Time aspirin Allergy Severe "NERVOUS" Verified 12/15/16 12:58 morphine Allergy Severe "ANXIETY-DE Verified 12/15/16 12:58 SPERATION" Home Medications: Ambulatory Orders Dexlansoprazole [Dexilant] 60 mg PO DAILY 03/10/16 Escitalopram Oxalate [Lexapro -] 10 mg PO DAILY 03/10/16 Gabapentin 300 mg PO BID 03/10/16 Rifaximin [Xifaxan -] 550 mg PO DAILY 07/07/16 Amitriptyline HCl [Elavil -] 25 mg PO BID 12/15/16 Amlodipine Besylate 5 mg PO DAILY 12/15/16 Divalproex [Depakote -] 250 mg PO BID 12/15/16 Oxybutynin Chloride [Ditropan Xl] 10 mg PO DAILY 12/15/16 Quetiapine Fumarate [Seroquel -] 25 mg PO DAILY 12/15/16 Anemia: No Asthma: No Cancer: No Cardiac Disorders: No 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, baseline confusion and dizziness) COPD: No CHF: No Dementia: No Diabetes: No GI Disorders: Yes (gerd, gastric ulcer, dysphagia) Disorders: Yes (kidney stone in the past) HTN: Yes Hypercholesterolemia: Yes Liver Disease: No Psychiatric Problems: Yes Seizures: Yes (S/P craniotomy for benign tumor - on Depakote for seizure prophylaxis) Thyroid Disease: No - Surgical History Abdominal Surgery: Yes Appendectomy: No Cardiac Surgery: No Cholecystectomy: Yes Lung Surgery: No Neurologic Surgery: Yes (Craniotomy for Benign Brain tumors 2010) Orthopedic Surgery: (Bilateral knee replacement) - Immunization History Td Vaccination: Yes TDAP Vaccination: No Immunization Up to Date: No - Suicide/Smoking/Psychosocial Hx Smoking Status: No Smoking History: Never smoked Have you smoked in the past 12 months: No Number of Cigarettes Smoked Daily: 0 Cigars Per Day: 0 Hx Alcohol Use: No Drug/Substance Use Hx: No Substance Use Type: None Hx Substance Use Treatment: No Review of Systems - Review of Systems Comments:: 12/15/16 16:40 "GENERAL/CONSTITUTIONAL: No fever or chills. No weakness. HEAD, EYES, EARS, NOSE AND THROAT: No change in vision. No ear pain or discharge. No sore throat. CARDIOVASCULAR: No chest pain or shortness of breath. RESPIRATORY: No cough, wheezing, or hemoptysis. GASTROINTESTINAL: +nausea, epigastric pain. No vomiting, diarrhea or constipation. GENITOURINARY: No dysuria, frequency, or change in urination. MUSCULOSKELETAL: No joint or muscle swelling or pain. No neck or back pain. SKIN: No rash NEUROLOGIC: No headache, vertigo, loss of consciousness, or change in strength/ sensation. ENDOCRINE: No increased thirst. No abnormal weight change. HEMATOLOGIC/LYMPHATIC: No anemia, easy bleeding, or history of blood clots. ALLERGIC/IMMUNOLOGIC: No hives or skin allergy. " *Physical Exam - Vital Signs Last Vital Signs Temp Pulse Resp BP Pulse Ox 98.6 F 97 H 18 153/77 95 12/15/16 12:55 12/15/16 12:55 12/15/16 12:55 12/15/16 12:55 12/15/16 12:55 - Physical Exam Comments: 12/15/16 16:40 "GENERAL: Awake, alert, and fully oriented, in no acute distress HEAD: No signs of trauma EYES: PERRLA, EOMI, sclera anicteric, conjunctiva clear ENT: Auricles normal inspection, hearing grossly normal, nares patent, oropharynx clear without exudates. Moist mucosa NECK: Nontender, no stepoffs, Normal ROM, supple, no lymphadenopathy, JVD, or masses LUNGS: Breath sounds equal, clear to auscultation bilaterally. No wheezes, and no crackles HEART: Regular rate and rhythm, normal S1 and S2, no murmurs, rubs or gallops ABDOMEN: Soft, epigastric TTP, normoactive bowel sounds. No guarding, no rebound. No masses EXTREMITIES: Normal range of motion, no edema. No clubbing or cyanosis. No cords, erythema, or tenderness NEUROLOGICAL: Cranial nerves II through XII intact. 5/5 strength and sensation in all extremities, Normal speech, normal gait SKIN: Warm, Dry, normal turgor, no rashes or lesions noted. " Heart Score/ECG Review - ECG Impressions Comment:: 12/15/16 16:41 NSR, no MACHELLE/STDs, no TWIs intervals wnl, axis wnl ED Treatment Course - LABORATORY CBC & Chemistry Diagram: 12/15/16 15:50 12/15/16 15:50 - ADDITIONAL ORDERS Additional order review: Laboratory Results 12/15/16 12/15/16 12/15/16 15:50 15:50 15:50 PT with INR INR PTT (Actin FS) 28.6 Sodium Potassium Chloride Carbon Dioxide Anion Gap BUN Creatinine Creat Clearance w eGFR Random Glucose Lactic Acid 0.9 Calcium Total Bilirubin AST ALT Alkaline Phosphatase Total Protein Albumin Lipase Urine Color Urine Appearance Urine pH Ur Specific [place] Urine Protein Urine Glucose (UA) Urine Ketones Urine Blood Urine Nitrite Urine Bilirubin Urine Urobilinogen Urine RBC Urine WBC Ur Epithelial Cells Urine Bacteria Urine Mucus Blood Type Cancelled Antibody Screen Cancelled Spec Expiration Date Cancelled 12/15/16 12/15/16 12/15/16 15:50 15:50 14:40 PT with INR 11.10 INR 0.98 PTT (Actin FS) Sodium Cancelled Potassium Cancelled Chloride Cancelled Carbon Dioxide Cancelled Anion Gap Cancelled BUN Cancelled Creatinine Cancelled Creat Clearance w eGFR Cancelled Random Glucose Cancelled Lactic Acid Calcium Cancelled Total Bilirubin Cancelled AST Cancelled ALT Cancelled Alkaline Phosphatase Cancelled Total Protein Cancelled Albumin Cancelled Lipase Cancelled Urine Color Yellow Urine Appearance Clear Urine pH 5.0 Ur Specific [place] 1.019 Urine Protein Negative Urine Glucose (UA) Negative Urine Ketones Negative Urine Blood 2+ H Urine Nitrite Negative Urine Bilirubin Negative Urine Urobilinogen Negative Urine RBC 9 Urine WBC 4 Ur Epithelial Cells Rare Urine Bacteria Few Urine Mucus Rare Blood Type Antibody Screen Spec Expiration Date 12/15/16 15:50 RBC 4.62 MCV 87.3 MCHC 33.4 RDW 16.0 H MPV 7.1 L Neutrophils % 73.3 Lymphocytes % 16.4 D Monocytes % 7.9 Eosinophils % 1.2 Basophils % 1.2 - RADIOLOGY Radiology Studies Ordered: Category Date Time Status ABDOMEN & PELVIS CT WITH CONTR [CT] Stat CT Scan 12/15/16 15:22 Ordered - Medications Given in the ED: ED Medications Discontinued Medications Generic Name Dose Route Start Last Admin Trade Name Chance PRN Reason Stop Dose Admin Al Hydroxide/Mg Hydroxide 30 ml 12/15/16 15:25 12/15/16 15:59 Mylanta Oral Suspension - PO 12/15/16 15:26 30 ml ONCE ONE Administration Pantoprazole Sodium 40 mg/ 100 mls @ 200 mls/hr 12/15/16 15:25 12/15/16 15:59 Sodium Chloride IVPB 12/15/16 15:54 200 mls/hr ONCE ONE Administration Sodium Chloride 1,000 mls @ 1,000 mls/hr 12/15/16 15:25 12/15/16 15:53 Normal Saline - IV 12/15/16 16:24 Not Given ASDIR STA Ondansetron HCl 4 mg 12/15/16 15:25 12/15/16 15:59 Zofran Injection IVPB 12/15/16 15:26 4 mg ONCE ONE Administration Medical Decision Making - Medical Decision Making 12/15/16 16:41 71 F with epigastric burning. Has had multiple repeat ED visits for similar symptoms. Last had an US on 07/19/16 that showed no acute pathology. Pt likely has gastritis vs PUD. However, given that pt has had persistent pain despite taking mylanta and multiple repeat visits for this problem without any recent CTs, will obtain CTAP to r/o acute pathology. - Labs, lipase, trop - CTAP - GI cocktail *DC/Admit/Observation/Transfer - Referrals Referrals: Waldo Mabry MD [Primary Care Provider] - Justyn Grubbs MD [Staff Physician] - - Patient Instructions Additional Instructions: Follow up with Dr. Grubbs as soon as possible for further evaluation of your abdominal pain. If you experience worsening pain, nausea, vomiting, or any other concerning symptoms, return to the ER immediately.
[2016-12-15 17:50] LABS: ALBUMIN 3.5 g/dl (3.4-5.0); ANION GAP 9 (8-16); BILIRUBIN,TOTAL 0.3 mg/dL (0.2-1.0); CALCIUM 9.1 mg/dL (8.5-10.1); CO2 27 mmol/L (21-32); CREATININE 0.7 mg/dL (0.55-1.02); GLUCOSE,RANDOM 131 mg/dL (74-106); SGOT/AST 46 U/L (15-37); SGPT/ALT 70 U/L (12-78); TOT PROT 7.5 g/dl (6.4-8.2)
[2016-12-15 17:53] LABS: ALK PHOS 203 U/L (45-117); CPK 91 IU/L (26-192); TROPONIN I < 0.02 ng/ml (0.00-0.05)
[2016-12-15 18:00] LABS: URINE LEUK ESTERASE Negative (NEGATIVE)
--- NOTE | 2016-12-15 20:53 | PDOC ---
*Physical Exam - Vital Signs Last Vital Signs Temp Pulse Resp BP Pulse Ox 98.6 F 97 H 18 153/77 95 12/15/16 12:55 12/15/16 12:55 12/15/16 12:55 12/15/16 12:55 12/15/16 12:55 - Physical Exam Comments: 12/15/16 20:49 Vital signs normal. Well-appearing, ambulating independently with her walker Abdomen is soft/nontender/nondistended. Bowel sounds are normal. Tolerating normal by mouth. ED Treatment Course - LABORATORY CBC & Chemistry Diagram: 12/15/16 15:50 12/15/16 16:42 - ADDITIONAL ORDERS Additional order review: Laboratory Results 12/15/16 12/15/16 12/15/16 16:42 16:42 15:50 PT with INR INR PTT (Actin FS) Sodium 133 L Potassium 4.2 Chloride 97 L Carbon Dioxide 27 Anion Gap 9 BUN 16 D Creatinine 0.7 Creat Clearance w eGFR > 60 Random Glucose 131 H Lactic Acid Calcium 9.1 Total Bilirubin 0.3 D AST 46 H ALT 70 Alkaline Phosphatase 203 H Creatine Kinase 91 Troponin I < 0.02 Total Protein 7.5 Albumin 3.5 Lipase 140 Urine Color Urine Appearance Urine pH Ur Specific [place] Urine Protein Urine Glucose (UA) Urine Ketones Urine Blood Urine Nitrite Urine Bilirubin Urine Urobilinogen Ur Leukocyte Esterase Urine RBC Urine WBC Ur Epithelial Cells Urine Bacteria Urine Mucus Blood Type O POSITIVE Cancelled Antibody Screen Negative Cancelled Spec Expiration Date Cancelled 12/15/16 12/15/16 12/15/16 15:50 15:50 15:50 PT with INR INR PTT (Actin FS) 28.6 Sodium Cancelled Potassium Cancelled Chloride Cancelled Carbon Dioxide Cancelled Anion Gap Cancelled BUN Cancelled Creatinine Cancelled Creat Clearance w eGFR Cancelled Random Glucose Cancelled Lactic Acid 0.9 Calcium Cancelled Total Bilirubin Cancelled AST Cancelled ALT Cancelled Alkaline Phosphatase Cancelled Creatine Kinase Troponin I Total Protein Cancelled Albumin Cancelled Lipase Cancelled Urine Color Urine Appearance Urine pH Ur Specific [place] Urine Protein Urine Glucose (UA) Urine Ketones Urine Blood Urine Nitrite Urine Bilirubin Urine Urobilinogen Ur Leukocyte Esterase Urine RBC Urine WBC Ur Epithelial Cells Urine Bacteria Urine Mucus Blood Type Antibody Screen Spec Expiration Date 12/15/16 12/15/16 12/15/16 15:50 15:46 14:40 PT with INR 11.10 INR 0.98 PTT (Actin FS) Sodium Cancelled Potassium Cancelled Chloride Cancelled Carbon Dioxide Cancelled Anion Gap Cancelled BUN Cancelled Creatinine Cancelled Creat Clearance w eGFR Cancelled Random Glucose Cancelled Lactic Acid Calcium Cancelled Total Bilirubin Cancelled AST Cancelled ALT Cancelled Alkaline Phosphatase Cancelled Creatine Kinase Cancelled Troponin I Cancelled Total Protein Cancelled Albumin Cancelled Lipase Cancelled Urine Color Yellow Urine Appearance Clear Urine pH 5.0 Ur Specific [place] 1.019 Urine Protein Negative Urine Glucose (UA) Negative Urine Ketones Negative Urine Blood 2+ H Urine Nitrite Negative Urine Bilirubin Negative Urine Urobilinogen Negative Ur Leukocyte Esterase Negative Urine RBC 9 Urine WBC 4 Ur Epithelial Cells Rare Urine Bacteria Few Urine Mucus Rare Blood Type Antibody Screen Spec Expiration Date 12/15/16 15:50 RBC 4.62 MCV 87.3 MCHC 33.4 RDW 16.0 H MPV 7.1 L Neutrophils % 73.3 Lymphocytes % 16.4 D Monocytes % 7.9 Eosinophils % 1.2 Basophils % 1.2 - Medications Given in the ED: ED Medications Discontinued Medications Generic Name Dose Route Start Last Admin Trade Name Yonathanq PRN Reason Stop Dose Admin Acetaminophen 1,000 mg 12/15/16 15:25 12/15/16 17:12 Ofirmev Injection - IVPB 12/15/16 15:26 1,000 mg ONCE ONE Administration Al Hydroxide/Mg Hydroxide 30 ml 12/15/16 15:25 12/15/16 15:59 Mylanta Oral Suspension - PO 12/15/16 15:26 30 ml ONCE ONE Administration Pantoprazole Sodium 40 mg/ 100 mls @ 200 mls/hr 12/15/16 15:25 12/15/16 15:59 Sodium Chloride IVPB 12/15/16 15:54 200 mls/hr ONCE ONE Administration Sodium Chloride 1,000 mls @ 1,000 mls/hr 12/15/16 15:25 12/15/16 15:53 Normal Saline - IV 12/15/16 16:24 Not Given ASDIR STA Ondansetron HCl 4 mg 12/15/16 15:25 12/15/16 15:59 Zofran Injection IVPB 12/15/16 15:26 4 mg ONCE ONE Administration Medical Decision Making - Medical Decision Making 12/15/16 20:50 Received signout on this 71-year-old female with history of peptic ulcer disease who presented with acute on chronic epigastric pain. At time of sign out , labs were within normal limits but chemistry was hemolyzed and being repeated. Plan was to follow up repeat chemistries, follow-up CAT scan of the abdomen and pelvis, and distal cortically. Labs are within normal limits, baseline alkaline phosphatase, normal lipase, no leukocytosis and urinalysis is clear. CAT scan shows no acute pathology other than some benign-appearing liver cysts. Can follow-up with Dr. Mabry and Dr. Grubbs, understands return criteria. Agrees with discharge plan, is reassured and happy with the care. *DC/Admit/Observation/Transfer Diagnosis at time of Disposition: Epigastric abdominal pain - Discharge Dispostion Disposition: HOME Condition at time of disposition: Improved - Referrals Referrals: Waldo Mabry MD [Primary Care Provider] - Justyn Grubbs MD [Staff Physician] - - Patient Instructions Printed Discharge Instructions: DI for Peptic Ulcer Additional Instructions: Blood tests and a CT scan today showed no acute abnormalities. Your pain could be due to your prior history of gastritis and ulcers, but there are no acute problems with those at this time. Continue your medications as previously prescribed by your physicians. Follow up with Dr. Grubbs as soon as possible for further evaluation of your abdominal pain. If you experience worsening pain, nausea, vomiting, bleeding, fever/chills, or any other concerning symptoms, return to the ER immediately.
[2016-12-15 21:03] VITALS: BP 148/80; PULSE 80
--- NOTE | 2016-12-16 09:47 | EKG ---
Test Reason : Blood Pressure : / mmHG Vent. Rate : 084 BPM Atrial Rate : 084 BPM P-R Int : 152 ms QRS Dur : 076 ms QT Int : 372 ms P-R-T Axes : 036 -01 028 degrees QTc Int : 439 ms SINUS RHYTHM WITH PREMATURE SUPRAVENTRICULAR COMPLEXES WHEN COMPARED WITH ECG OF 29-JUL-2016 18:42, PREMATURE SUPRAVENTRICULAR COMPLEXES ARE NOW PRESENT Confirmed by LARA SARMIENTO MD ([id number]) on 12/16/2016 9:47:03 AM Referred By: Confirmed By:LARA SARMIENTO MD
== END 2016-12-15 21:06 | disposition home or self-care (01) ==
LOC: JER 12:54 → JERBED 17:05 → UNDOADMOB 17:05 → JER 21:06
PROC: 3E033GC Introduction of Other Therapeutic Substance into Peripheral Vein, Percutaneous Approach (ICD-10-PCS; principal; 2016-12-15)
PROC: 3E033GC Introduction of Other Therapeutic Substance into Peripheral Vein, Percutaneous Approach (ICD-10-PCS; 2016-12-15)
PROC: 3E033NZ Introduction of Analgesics, Hypnotics, Sedatives into Peripheral Vein, Percutaneous Approach (ICD-10-PCS; 2016-12-15)
DX: R10.13 Epigastric pain (principal); K21.9 Gastro-esophageal reflux disease without esophagitis; I69.893 Ataxia following other cerebrovascular disease; I10 Essential (primary) hypertension; Z87.11 Personal history of peptic ulcer disease; E78.00 Pure hypercholesterolemia, unspecified; G40.909 Epilepsy, unspecified, not intractable, without status epilepticus; F41.9 Anxiety disorder, unspecified; Z96.653 Presence of artificial knee joint, bilateral; Z90.49 Acquired absence of other specified parts of digestive tract
CPT/HCPCS: 36415; 74177-TC; 80053; 81003; 81015; 82550; 83605; 83690; 84484; 85025; 85610; 85730; 86850; 86900; 86901; 93005; 93010; 99283-25

== ENCOUNTER 2016-12-31 13:02 | Emergency (ER) | payer OTHER ==
[2016-12-31 13:15] VITALS: BMI 33.2
[2016-12-31] MEDS ORDERED: ONDANSETRON 4 MG/2 ML VIAL IVPUSH ONE (13:51)
[2016-12-31] MEDS ORDERED: SODIUM CHLORIDE 1,000 ML IV STA ×2 (13:54→15:06)
[2016-12-31 14:17] LABS: BASOPHIL 0.7 % (0-2.0); MCH 28.8 pg (25.7-33.7); MCHC 32.7 g/dl (32.0-36.0); MEAN CELL VOLUME 87.8 fl (80-96); MEAN PLT VOLUME 6.9 fl (7.5-11.1); NEUTROPHILS 68.9 % (42.8-82.8); PLATELET COUNT 294 K/MM3 (134-434); RDW 16.3 % (11.6-15.6); WHITE BLOOD COUNT 6.5 K/mm3 (4.0-10.0)
[2016-12-31] MEDS ORDERED: ACETAMINOPHEN 1000 MG/100 ML VIAL (NON FORMULARY) IVPB ONE (14:27)
[2016-12-31] MEDS ORDERED: ACETAMINOPHEN INJECTION 100 ML IVPB ONE (14:29)
--- NOTE | 2016-12-31 14:34 | PDOC ---
*Physical Exam - Vital Signs Last Vital Signs Temp Pulse Resp BP Pulse Ox 98.0 F 72 20 154/91 8 L 12/31/16 13:11 12/31/16 13:11 12/31/16 13:11 12/31/16 13:11 12/31/16 13:11 ED Treatment Course - LABORATORY CBC & Chemistry Diagram: 12/31/16 14:10 12/31/16 14:10 Medical Decision Making - Medical Decision Making 12/31/16 14:34 Pt seen by the Advanced Practice Provider under my direct supervision Ancillary studies reviewed I agree with plan as outlined by the Advanced Practice Provider LARA Zepeda *DC/Admit/Observation/Transfer Diagnosis at time of Disposition: Headache, Hyponatremia, Abdominal pain - Discharge Dispostion Disposition: HOME Condition at time of disposition: Improved - Referrals Referrals: Waldo Mabry MD [Primary Care Provider] - - Patient Instructions Printed Discharge Instructions: DI for Hyponatremia Additional Instructions: May take Motrin for headache. Continue with her medication as previously prescribed. Please eat saltine crackers throughout the day as discussed. Please follow up with Dr. Mabry. - Post Discharge Activity
[2016-12-31 14:43] LABS: ALBUMIN 3.4 g/dl (3.4-5.0); ANION GAP 9 (8-16); BILIRUBIN,TOTAL 0.5 mg/dL (0.2-1.0); CALCIUM 8.7 mg/dL (8.5-10.1); CO2 26 mmol/L (21-32); CREATININE 0.6 mg/dL (0.55-1.02); GLUCOSE,RANDOM 112 mg/dL (74-106); SGOT/AST 66 U/L (15-37); SGPT/ALT 68 U/L (12-78); TOT PROT 6.9 g/dl (6.4-8.2)
[2016-12-31 14:46] LABS: ALK PHOS 161 U/L (45-117); CPK 110 IU/L (26-192); TROPONIN I < 0.02 ng/ml (0.00-0.05)
[2016-12-31 14:47] LABS: URINE APPEARANCE CLEAR; URINE BILIRUBIN NEGATIVE (NEGATIVE); URINE BLOOD 2+ (NEGATIVE); URINE COLOR LTYELLOW; URINE GLUCOSE (UA) NEGATIVE (NEGATIVE); URINE KETONE NEGATIVE (NEGATIVE); URINE NITRITE NEGATIVE (NEGATIVE); URINE PROTEIN NEGATIVE (NEGATIVE); URINE UROBILINOGEN NEGATIVE mg/dL (0.2-1.0)
[2016-12-31 14:53] LABS: URINE BACTERIA RARE /hpf (NONE SEEN); URINE RBC 6; URINE WBC 3
--- NOTE | 2016-12-31 14:55 | PDOC ---
History of Present Illness - General Chief Complaint: Pain Stated Complaint: ABD PAIN Time Seen by Provider: 12/31/16 13:25 History Source: Patient Exam Limitations: No Limitations - History of Present Illness Initial Comments: 12/31/16 14:55 71-year-old female presents to the emergency room for evaluation of intermittent abdominal pain for the past 2 days associated with nausea without vomiting and 2 episodes of diarrhea. Patient describes the pain as cramping and generalized without fever chills, or abdominal distention. Patient also states some burning sensation to the epigastric area radiating to her mid chest without palpitations, radiation of pain to the left chest wall, palpitations, sweating, or cough. Patient also states frontal headache since yesterday unrelieved with Tylenol. Patient denies dizziness, visual changes, neck pain, sore throat, or dental pain. Timing/Duration: other (2 days) Severity: mild Associated Symptoms: reports: chest pain, headaches, nausea/vomiting Past History - Past Medical History Allergies/Adverse Reactions: Allergies Allergy/AdvReac Type Severity Reaction Status Date / Time aspirin Allergy Severe "NERVOUS" Verified 12/31/16 13:14 morphine Allergy Severe "ANXIETY-DE Verified 12/31/16 13:14 SPERATION" Home Medications: Ambulatory Orders Dexlansoprazole [Dexilant] 60 mg PO DAILY 03/10/16 Escitalopram Oxalate [Lexapro -] 10 mg PO DAILY 03/10/16 Gabapentin 300 mg PO BID 03/10/16 Rifaximin [Xifaxan -] 550 mg PO DAILY 07/07/16 Amitriptyline HCl [Elavil -] 25 mg PO BID 12/15/16 Amlodipine Besylate 5 mg PO DAILY 12/15/16 Divalproex [Depakote -] 250 mg PO BID 12/15/16 Oxybutynin Chloride [Ditropan Xl] 10 mg PO DAILY 12/15/16 Quetiapine Fumarate [Seroquel -] 25 mg PO DAILY 12/15/16 Anemia: No Asthma: No Cancer: No Cardiac Disorders: No 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, baseline confusion and dizziness) COPD: No CHF: No Dementia: No Diabetes: No GI Disorders: Yes (gerd, gastric ulcer, dysphagia) Disorders: Yes (kidney stone in the past) HTN: Yes Hypercholesterolemia: Yes Liver Disease: No Psychiatric Problems: Yes (ANXIETY DEPRESSION) Seizures: Yes (S/P craniotomy for benign tumor - on Depakote for seizure prophylaxis) Thyroid Disease: No - Surgical History Abdominal Surgery: Yes Appendectomy: No Cardiac Surgery: No Cholecystectomy: Yes Lung Surgery: No Neurologic Surgery: Yes Orthopedic Surgery: (Bilateral knee replacement) - Immunization History Td Vaccination: Yes TDAP Vaccination: No Immunization Up to Date: No - Suicide/Smoking/Psychosocial Hx Smoking Status: No Smoking History: Never smoked Have you smoked in the past 12 months: No Number of Cigarettes Smoked Daily: 0 Cigars Per Day: 0 Hx Alcohol Use: No Drug/Substance Use Hx: No Substance Use Type: None Hx Substance Use Treatment: No Patient Lives Alone: No Lives with/in: hhaa Review of Systems - Review of Systems Able to Perform ROS?: Yes Constitutional: No: Symptoms Reported HEENTM: No: Symptoms Reported Respiratory: No: Symptoms reported Cardiac (ROS): Yes: Chest Pain ABD/GI: Yes: Diarrhea, Nausea, Indigestion, Abdominal cramping : No: Symptoms Reported Musculoskeletal: No: Symptoms Reported Integumentary: No: Symptoms Reported Neurological: Yes: Headache. No: Numbness, Tingling, Weakness, Dizziness *Physical Exam - Vital Signs Last Vital Signs Temp Pulse Resp BP Pulse Ox 98.0 F 72 20 154/91 98 12/31/16 13:11 12/31/16 13:11 12/31/16 13:11 12/31/16 13:11 12/31/16 13:11 - Physical Exam General Appearance: Yes: Nourished, Appropriately Dressed. No: Apparent Distress HEENT: positive: EOMI, KARL, TMs Normal, Pharynx Normal. negative: Pale Conjunctivae Neck: positive: Supple Respiratory/Chest: positive: Lungs Clear, Normal Breath Sounds. negative: Chest Tender, Respiratory Distress, Accessory Muscle Use Cardiovascular: positive: Regular Rhythm, Regular Rate. negative: Murmur Gastrointestinal/Abdominal: positive: Soft, Tenderness (epigastric, periumbilical) Musculoskeletal: negative: CVA Tenderness Extremity: positive: Normal Capillary Refill. negative: Pedal Edema Integumentary: positive: Normal Color, Warm, Moist Neurologic: positive: Motor Strength 5/5 (ambulatory) Heart Score/ECG Review - ECG Intrepretation Rhythm: Regular Rhythm (nsr rate 62. No St elevation/depression) ED Treatment Course - LABORATORY CBC & Chemistry Diagram: 12/31/16 14:10 12/31/16 14:10 - RADIOLOGY Radiology Studies Ordered: Category Date Time Status CHEST X-RAY PORTABLE* [RAD] Stat Radiology 12/31/16 13:51 Ordered - Medications Given in the ED: ED Medications Discontinued Medications Generic Name Dose Route Start Last Admin Trade Name Freq PRN Reason Stop Dose Admin Ondansetron HCl 4 mg 12/31/16 13:51 12/31/16 14:28 Zofran Injection IVPUSH 12/31/16 13:52 4 mg ONCE ONE Administration Medical Decision Making - Medical Decision Making 12/31/16 14:18 Patient complains of diffuse abdominal pain greater in the periumbilical and epigastric region since yesterday associated nausea and 2-3 episodes of diarrhea. Patient also states pain radiates to her mid chest without of sided chest pain. Patient also complaining of headache since yesterday unrelieved with Tylenol. Patient had an abdominal CT done 12/15/2016 with no acute findings. Patient also had a head CT with a questionable 4 mm hyperdense nodular density seen in the left anterior frontal lobe. Recommended a contrast enhanced MRI n October 2016. Patient was ordered for CBC, comp, magnesium, urinalysis, urine culture, chest x-ray EKG, and IV fluids, Zofran, Protonix, an IV Tylenol. 12/31/16 15:21 Laboratory Tests 12/31/16 12/31/16 12/31/16 14:10 14:10 14:28 WBC 6.5 Hgb 13.1 Hct 40.0 RDW 16.3 H MPV 6.9 L Monocytes % 11.3 H Sodium 129 L Potassium 4.5 Chloride 94 L Carbon Dioxide 26 Anion Gap 9 BUN 9 D Creatinine 0.6 Creat Clearance w eGFR > 60 Random Glucose 112 H AST 66 H D ALT 68 Alkaline Phosphatase 161 H D Creatine Kinase 110 Troponin I < 0.02 Lipase 111 Urine Blood 2+ H Urine Urobilinogen Negative Ur Leukocyte Esterase Pending Urine WBC (Auto) 3 Urine RBC (Auto) 6 Patient ordered for second bag of IV NS fluid secondary to hyponatremia and an abdominal/pelvic IV contrast enhanced abdominal CT. Patient states feeling better with no complaints presently. 12/31/16 18:23 Laboratory Tests 12/31/16 14:28 Ur Leukocyte Esterase Negative Abdominal CT negative for acute findings. Patient requesting to go home. Patient will be discharged home with recommendations to continue previous regimen and eat saltine crackers throughout the day secondary to hyponatremia. *DC/Admit/Observation/Transfer Diagnosis at time of Disposition: Headache, Hyponatremia, Abdominal pain - Discharge Dispostion Disposition: HOME Condition at time of disposition: Improved - Referrals Referrals: Waldo Mabry MD [Primary Care Provider] - - Patient Instructions Printed Discharge Instructions: DI for Hyponatremia Additional Instructions: May take Motrin for headache. Continue with her medication as previously prescribed. Please eat saltine crackers throughout the day as discussed. Please follow up with Dr. Mabry. - Post Discharge Activity
[2016-12-31 17:48] LABS: URINE LEUK ESTERASE Negative (NEGATIVE)
[2016-12-31 18:27] VITALS: BP 171/85; PULSE 77; TEMP 98.5
--- NOTE | 2017-01-02 11:38 | EKG ---
Test Reason : Blood Pressure : / mmHG Vent. Rate : 062 BPM Atrial Rate : 062 BPM P-R Int : 170 ms QRS Dur : 084 ms QT Int : 444 ms P-R-T Axes : -14 -15 000 degrees QTc Int : 450 ms NORMAL SINUS RHYTHM MODERATE VOLTAGE CRITERIA FOR LVH, MAY BE NORMAL VARIANT BORDERLINE ECG WHEN COMPARED WITH ECG OF 15-DEC-2016 15:49, PREMATURE SUPRAVENTRICULAR COMPLEXES ARE NO LONGER PRESENT Confirmed by LORENZO SEVILLA, ANNITA ([id number]) on 01/02/2017 11:37:41 AM Referred By: Confirmed By:ANNITA VENTURA MD
--- NOTE | 2017-01-03 08:03 | PDOC ---
Patient Follow-up (Call Back) - Post ED Follow - Up Condition at time of discharge: Improved Disposition at time of original discharge: HOME Reason for Call Back: Abnwl. Microbiology (Prescription called in for Macrobid. Call patient at home and will picker box operator at [facility] pharmacy today. Will await final report)
== END 2016-12-31 18:51 | disposition home or self-care (01) ==
LOC: JER 13:02
DX: E87.1 Hypo-osmolality and hyponatremia (principal); R51 Headache; I10 Essential (primary) hypertension; E78.00 Pure hypercholesterolemia, unspecified; F41.8 Other specified anxiety disorders; I69.893 Ataxia following other cerebrovascular disease; Z87.19 Personal history of other diseases of the digestive system; Z87.442 Personal history of urinary calculi
CPT/HCPCS: 36415; 71010-TC; 74177-TC; 80053; 81003; 81015; 82550; 83690; 84484; 85025; 87086; 87186; 93005; 93010; 99284-25

== ENCOUNTER 2017-01-19 03:19 | Inpatient (IN) | payer OTHER ==
[2017-01-19] MEDS ORDERED: ONDANSETRON 4 MG/2 ML VIAL IVPUSH ONE (04:52)
[2017-01-19 05:05] VITALS: BMI 33.2
[2017-01-19] MEDS ORDERED: KETOROLAC TROMETHAMINE 30 MG/1 ML VIAL IVPUSH ONE (05:10)
[2017-01-19] MEDS ORDERED: KETOROLAC TROMETHAMINE 30 MG/1 ML VIAL ONE (05:40)
[2017-01-19] MEDS ORDERED: ONDANSETRON 4 MG/2 ML VIAL ONE (05:40)
[2017-01-19 05:49] LABS: BASO % 0.4 % (0-2.0); EOS % 1.9 % (0-4.5); HEMATOCRIT 39.8 % (32.4-45.2); HEMOGLOBIN 13.3 GM/dL (10.7-15.3); LYMPH % 24.6 % (8-40); MCH 29.4 pg (25.7-33.7); MCHC 33.4 g/dl (32.0-36.0); MEAN PLT VOLUME 7.4 fl (7.5-11.1); MONO % 11.6 % (3.8-10.2); NEUT % 61.5 % (42.8-82.8); PLATELET COUNT 269 K/MM3 (134-434); RBC 4.52 M/mm3 (3.60-5.2); RDW 15.3 % (11.6-15.6); WHITE BLOOD COUNT 5.6 K/mm3 (4.0-10.0)
--- NOTE | 2017-01-19 06:10 | PDOC ---
History of Present Illness - General Chief Complaint: Pain Stated Complaint: STOMACH PAIN/ HEAD PAIN Time Seen by Provider: 01/19/17 04:41 - History of Present Illness Initial Comments: 01/19/17 06:05 CHIEF COMPLAINT: abd pain, nausea, diarrhea HISTORY OF PRESENT ILLNESS: 71-year-old female presents to the emergency room for evaluation of intermittent abdominal pain for the past 2 days associated with nausea without vomiting and 2 episodes of diarrhea. Patient denies shortness of breath, chest pain, palpitations, dizziness, weakness, fever, chills. Patient has been seen multiple times in this ER for similar symptoms. PAST MEDICAL HISTORY: Denies past medical history FAMILY HISTORY: Denies SOCIAL HISTORY: LDenies tobacco, alcohol, illicit drug use. SURGICAL HISTORY: Denies ALLERGIES: aspirin, morphine REVIEW OF SYSTEMS General/Constitutional: Denies fever or chills. Denies weakness. HEENT: Denies change in vision. Denies ear pain or discharge. Denies sore throat. Cardiovascular: Denies chest pain or shortness of breath. Respiratory: Denies cough, wheezing, or hemoptysis. Gastrointestinal: Diarrhea "all day today." Denies vomiting. Genitourinary: Denies dysuria, frequency, or change in urination. Musculoskeletal: Denies joint or muscle swelling or pain. Denies neck or back pain. Skin and breasts: Denies rash or easy bruising. Neurologic: Headache with nausea. Denies vertigo, loss of consciousness, or loss of sensation. PHYSICAL EXAM General Appearance: Well-appearing, appropriately dressed. No apparent distress. HEENT: EOMI, PERRLA. No conjunctival pallor. No photophobia, scleral icterus. Respiratory/Chest: Lungs CTAB. Cardiovascular: RRR. S1, S2. Gastrointestinal/Abdominal: Normal bowel sounds. Abdomen soft, non-distended. No tenderness or rebound tenderness. No organomegaly, pulsatile mass, guarding , hernia, hepatomegaly, splenomegaly. Musculoskeletal/Extremities: Normal inspection. FROM of all extremities, normal capillary refill. Pelvis Stable. No CVA tenderness. No tenderness to extremities, pedal edema, swelling, erythema or deformity. Integumentary: Appropriate color, dry, warm. 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 Fully oriented, alert. Appropriate mood/affect. Motor strength 5/5. No appreciable EOM palsy, facial droop or sensory deficit. 01/19/17 06:10 Past History - Past Medical History Allergies/Adverse Reactions: Allergies Allergy/AdvReac Type Severity Reaction Status Date / Time aspirin Allergy Severe "NERVOUS" Verified 01/19/17 05:01 morphine Allergy Severe "ANXIETY-DE Verified 01/19/17 05:01 SPERATION" Home Medications: Ambulatory Orders Dexlansoprazole [Dexilant] 60 mg PO DAILY 03/10/16 Escitalopram Oxalate [Lexapro -] 10 mg PO DAILY 03/10/16 Amitriptyline HCl [Elavil -] 25 mg PO BID 12/15/16 Amlodipine Besylate 5 mg PO DAILY 12/15/16 Divalproex [Depakote -] 250 mg PO BID 12/15/16 Oxybutynin Chloride [Ditropan Xl] 15 mg PO DAILY 12/15/16 Quetiapine Fumarate [Seroquel -] 25 mg PO DAILY 12/15/16 Gabapentin 300 mg PO HS 01/19/17 Linaclotide [Linzess] 72 mcg PO DAILY 01/19/17 Lipase/Protease/Amylase [Creon Dr 36,000 Units Capsule] 1 each PO TID 01/19/17 Mirtazapine [Remeron -] 7.5 mg PO HS 01/19/17 Ranitidine [Zantac -] 300 mg PO HS 01/19/17 Rifaximin [Xifaxan -] 550 mg PO TID 01/19/17 Sumatriptan Succinate [Imitrex -] 50 mg PO DAILY 01/19/17 Miscellaneous Drug Not In Syst [Outpatient Lab Test] 1 each ASDIR #1 misc 10/30 Anemia: No Asthma: No Cancer: No Cardiac Disorders: No 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, baseline confusion and dizziness) COPD: No CHF: No Dementia: No Diabetes: No GI Disorders: Yes (gerd, gastric ulcer, dysphagia) Disorders: Yes (kidney stone in the past) HTN: Yes Hypercholesterolemia: Yes Liver Disease: No Psychiatric Problems: Yes (ANXIETY DEPRESSION) Seizures: Yes (S/P craniotomy for benign tumor - on Depakote for seizure prophylaxis) Thyroid Disease: No - Surgical History Abdominal Surgery: Yes Appendectomy: No Cardiac Surgery: No Cholecystectomy: Yes Lung Surgery: No Neurologic Surgery: Yes Orthopedic Surgery: (Bilateral knee replacement) - Immunization History Td Vaccination: Yes TDAP Vaccination: No Immunization Up to Date: No - Suicide/Smoking/Psychosocial Hx Smoking Status: No Smoking History: Never smoked Have you smoked in the past 12 months: No Number of Cigarettes Smoked Daily: 0 Cigars Per Day: 0 Information on smoking cessation initiated: No Hx Alcohol Use: No Drug/Substance Use Hx: No Substance Use Type: None Hx Substance Use Treatment: No *Physical Exam - Vital Signs Last Vital Signs Temp Pulse Resp BP Pulse Ox 98.9 F 71 18 134/102 97 01/19/17 05:02 01/19/17 05:02 01/19/17 05:02 01/19/17 05:02 01/19/17 05:02 ED Treatment Course - LABORATORY CBC & Chemistry Diagram: 01/20/17 05:05 01/21/17 14:00 - ADDITIONAL ORDERS Additional order review: 01/19/17 05:30 RBC 4.52 MCV 88.0 MCHC 33.4 RDW 15.3 MPV 7.4 L Neutrophils % 61.5 Lymphocytes % 24.6 D Monocytes % 11.6 H Eosinophils % 1.9 D Basophils % 0.4 - RADIOLOGY Radiology Studies Ordered: Category Date Time Status CHEST PA & LAT [RAD] Stat Radiology 01/19/17 04:51 Taken Medical Decision Making - Medical Decision Making 01/19/17 06:18 71-year-old female presents to the emergency room for evaluation of intermittent abdominal pain for the past 2 days -CBC, CMP, lipase, card profile -EKG -Zofran, Toradol Exam unremarkable . Patient was witnessed dancing in the emergency room while awaiting lab results, prior to receiving any medications. 01/19/17 06:47 Case discussed in detail with oncoming emergency provider including history, physical exam and ancillary studies. In brief, this patient is being seen in the ED for a chief complaint of: abd pain, headache I have completed the initial assessment interview note and have ordered the following labs: cbc, cmp, lipase, card profile I have reviewed the following results: cbc Pending results: cmp, lipase, trop Plan for disposition as follows: d/c Oncoming NAT eZpeda has assumed care for the patient and will complete the evaluation and treatment. *DC/Admit/Observation/Transfer Diagnosis at time of Disposition: Hyponatremia, Weakness, UTI (urinary tract infection) Diarrhea Qualifiers: Diarrhea type: unspecified type Qualified Code(s): R19.7 - Diarrhea, unspecified - Discharge Dispostion Disposition: VNS/HOME HEALTH CARE Condition at time of disposition: Improved - Prescriptions - Referrals - Patient Instructions - Post Discharge Activity
[2017-01-19 07:00] LABS: ALBUMIN 3.4 g/dl (3.4-5.0); ANION GAP 10 (8-16); BILIRUBIN,TOTAL 0.6 mg/dL (0.2-1.0); BLOOD UREA NITROGEN 7 mg/dL (7-18); CALCIUM 8.1 mg/dL (8.5-10.1); CHLORIDE 86 mmol/L (98-107); CO2 22 mmol/L (21-32); CREATININE 0.6 mg/dL (0.55-1.02); GLUCOSE,RANDOM 117 mg/dL (74-106); LIPASE 71 U/L (73-393); SGPT/ALT 62 U/L (12-78); TOT PROT 7.1 g/dl (6.4-8.2)
[2017-01-19 07:02] LABS: ALK PHOS 169 U/L (45-117)
[2017-01-19 07:03] LABS: POTASSIUM 4.6 mmol/L (3.5-5.1); SGOT/AST 70 U/L (15-37)
[2017-01-19 07:04] LABS: SODIUM 118 mmol/L (136-145)
[2017-01-19] MEDS ORDERED: SODIUM CHLORIDE 3% 500 ML/500 ML INFUS.BAG IV ONE (07:06)
[2017-01-19 07:15] LABS: MAGNESIUM 2.2 mg/dL (1.8-2.4)
[2017-01-19] MEDS ORDERED: SODIUM CHLORIDE 3% 500 ML/100 ML INFUS.BAG IV ONE (07:30)
[2017-01-19] MEDS ORDERED: DIPHENOXYLATE 2.5/ATROPINE.025 1 COMBO TABLET PO ONE (09:00)
[2017-01-19 09:41] LABS: ANION GAP 8 (8-16); BLOOD UREA NITROGEN 7 mg/dL (7-18); CALCIUM 8.4 mg/dL (8.5-10.1); CHLORIDE 86 mmol/L (98-107); CO2 26 mmol/L (21-32); CREATININE 0.8 mg/dL (0.55-1.02); GLUCOSE,RANDOM 116 mg/dL (74-106); POTASSIUM 4.1 mmol/L (3.5-5.1)
[2017-01-19 09:44] LABS: SODIUM 120 mmol/L (136-145)
--- NOTE | 2017-01-19 10:09 | PDOC ---
*Physical Exam - Vital Signs Last Vital Signs Temp Pulse Resp BP Pulse Ox 98.9 F 71 18 134/102 97 01/19/17 05:02 01/19/17 05:02 01/19/17 05:02 01/19/17 05:02 01/19/17 05:02 ED Treatment Course - LABORATORY CBC & Chemistry Diagram: 01/20/17 05:05 01/21/17 14:00 - ADDITIONAL ORDERS Additional order review: Laboratory Results 01/19/17 01/19/17 09:00 05:30 Sodium 120 L* 118 L* Potassium 4.1 4.6 Chloride 86 L 86 L Carbon Dioxide 26 22 Anion Gap 8 10 BUN 7 7 D Creatinine 0.8 D 0.6 Creat Clearance w eGFR > 60 Random Glucose 116 H 117 H Calcium 8.4 L 8.1 L Magnesium 2.2 Total Bilirubin 0.6 AST 70 H ALT 62 Alkaline Phosphatase 169 H Creatine Kinase 135 Troponin I < 0.02 Total Protein 7.1 Albumin 3.4 Lipase 71 L 01/19/17 05:30 RBC 4.52 MCV 88.0 MCHC 33.4 RDW 15.3 MPV 7.4 L Neutrophils % 61.5 Lymphocytes % 24.6 D Monocytes % 11.6 H Eosinophils % 1.9 D Basophils % 0.4 - Medications Given in the ED: ED Medications Discontinued Medications Generic Name Dose Route Start Last Admin Trade Name Freq PRN Reason Stop Dose Admin Sodium Chloride 500 ml in 100 mls @ 42 mls/hr 01/19/17 07:30 01/19/17 07:40 Sodium Chloride 3% IV 01/19/17 09:52 42 mls/hr ASDIR ONE Administration Ketorolac Tromethamine 30 mg 01/19/17 05:10 01/19/17 06:28 Toradol Injection - IVPUSH 01/19/17 05:11 30 mg ONCE ONE Administration Ondansetron HCl 4 mg 01/19/17 04:52 01/19/17 06:28 Zofran Injection IVPUSH 01/19/17 04:53 4 mg ONCE ONE Administration Medical Decision Making - Medical Decision Making 01/19/17 08:07 Patient received in sign out from LARA Villalobos. Patient currently receiving 3% sodium secondary to sodium of 119. Patient was ordered for repeat BMP and added on urine lytes, serum osmolarity and urine osmolarity. Patient also has had 8 episodes of diarrhea since arrival. Patient ordered for Lomotil and will consult hospitalist for admission. 01/19/17 10:08 Patient had repeat BMP done with only 50 mL of infusion completed. Case discussed with hospitalist and states to admit to ICU and nephrology was consult along with donor processor which agreed to stop the 3% sodium 01/19/17 12:20 Pt down graded to telemetry. Pt ordered for levaquin po for kleb pneumonia *DC/Admit/Observation/Transfer Diagnosis at time of Disposition: Hyponatremia, Weakness, UTI (urinary tract infection) Diarrhea Qualifiers: Diarrhea type: unspecified type Qualified Code(s): R19.7 - Diarrhea, unspecified - Discharge Dispostion Disposition: VNS/HOME HEALTH CARE Condition at time of disposition: Improved Admit: Yes - Prescriptions - Referrals - Patient Instructions - Post Discharge Activity
--- NOTE | 2017-01-19 11:04 | HP ---
CHIEF COMPLAINT: Diarrhea PCP: Dr. Mabry HISTORY OF PRESENT ILLNESS: Patient is a 71 year old female who is a poor historian with a PMHx of CVA (2009 ), HTN, HLD, Cataracts w/ corrective surgery, Seizures s/p Brain surgery left meningioma (1999), Chronic anemia, anxiety, GERD/PUD and hyponatremia that she is aware of but unsure why who complains of nonbloody watery diarrhea for the past two days associated with abdominal pain and decreased oral intake. Patient reports the pain is nonradiating an constant in the mid epigastric region that occurs only when its palpated. Patient reports having a colonoscopy done last month with Dr. Grubbs for the diarrhea and states "something was wrong" and started her on medications. She denies any changes to her diet or medications or recent antibiotic use. Denies Chronic NSAID use. Denies any nausea, vomiting, dizziness, loss of consciousness, fever, chills, weight loss, night sweats, hematuria, frequency, dysuria, tingling or numbness in the LE and UE. Patient has chronic unsteady gait and uses a walker at baseline. 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, HTN, HLD, Cataracts w/ corrective surgery, Seizures s/p Brain surgery left meningioma (1999), Chronic anemia, OA, anxiety, GERD/PUD, Recurrent Klebsiella and MRSA UTI's, Opiate abuse, chronic headaches PAST SURGICAL HISTORY: left TKR (10/2015), corrective cataract surgery, Removal of left meningioma (1999) Social History: Lives alone and has home health aid Smoking: Denies Alcohol: Denies Drugs: Denies Family History: Non-Contributory Allergies: aspirin Allergy (Severe, Verified 01/19/17 05:01) "NERVOUS" morphine Allergy (Severe, Verified 01/19/17 05:01) "ANXIETY-DESPERATION" HOME MEDICATIONS: Home Medications Medication Instructions Recorded Dexlansoprazole [Dexilant] 60 mg PO DAILY 03/10/16 Escitalopram Oxalate [Lexapro -] 10 mg PO DAILY 03/10/16 Gabapentin 300 mg PO BID 03/10/16 Amitriptyline HCl [Elavil -] 25 mg PO BID 12/15/16 Amlodipine Besylate 5 mg PO DAILY 12/15/16 Divalproex [Depakote -] 250 mg PO BID 12/15/16 Oxybutynin Chloride [Ditropan Xl] 10 mg PO DAILY 12/15/16 Quetiapine Fumarate [Seroquel -] 25 mg PO DAILY 12/15/16 REVIEW OF SYSTEMS CONSTITUTIONAL: Loss of appetite Absent: fever, chills, diaphoresis, generalized weakness, malaise, weight change HEENT: Absent: rhinorrhea, nasal congestion, throat pain, throat swelling, difficulty swallowing, mouth swelling, ear pain, eye pain, visual changes CARDIOVASCULAR: Absent: chest pain, syncope, palpitations, irregular heart rate, lightheadedness , peripheral edema RESPIRATORY: Absent: cough, shortness of breath, dyspnea with exertion, orthopnea, wheezing, stridor, hemoptysis GASTROINTESTINAL: abdominal pain, abdominal distension, watery diarrhea Absent: nausea, vomiting, constipation, melena, hematochezia GENITOURINARY: Absent: dysuria, frequency, urgency, hesitancy, hematuria, flank pain, genital pain MUSCULOSKELETAL: Absent: myalgia, arthralgia, joint swelling, back pain, neck pain SKIN: Absent: rash, itching, pallor HEMATOLOGIC/IMMUNOLOGIC: Absent: easy bleeding, easy bruising, lymphadenopathy, frequent infections ENDOCRINE: Absent: unexplained weight gain, unexplained weight loss, heat intolerance, cold intolerance NEUROLOGIC: Chronic unsteady gait Absent: headache, focal weakness or paresthesias, dizziness, seizure, mental status changes, bladder or bowel incontinence PSYCHIATRIC: Absent: anxiety, depression, suicidal or homicidal ideation, hallucinations. PHYSICAL EXAMINATION Vital Signs - 24 hr 01/19/17 05:02 Temperature 98.9 F Pulse Rate 71 Respiratory 18 Rate Blood Pressure 134/102 O2 Sat by Pulse 97 Oximetry (%) GENERAL: Awake, alert, and fully oriented, in no acute distress. HEAD: Normal with no signs of trauma. EYES: Pupils equal, round and reactive to light, extraocular movements intact, sclera anicteric, conjunctiva clear. EARS, NOSE, THROAT: Oropharynx clear without exudates. Moist mucous membranes. NECK: Normal range of motion, supple without lymphadenopathy, JVD, or masses. LUNGS: Breath sounds equal, clear to auscultation bilaterally. No wheezes, and no crackles. No accessory muscle use. HEART: Regular rate and rhythm, normal S1 and S2 without murmur, rub or gallop. ABDOMEN: Soft, distended, obese, tenderness upon palpation of the mid epigastric region R>L with normoactive bowel sounds. (-) Oviedo's sign, (-) rebound tenderness of guarding. MUSCULOSKELETAL: No CVA tenderness. UPPER EXTREMITIES: No peripheral edema. LOWER EXTREMITIES:No peripheral edema. NEUROLOGICAL: Cranial nerves II-XII intact. Normal speech. Motor strength 5/5 bilaterall. Sensory Intact. No facial droop PSYCHIATRIC: Cooperative. Good eye contact. Appropriate mood and affect. SKIN: Warm, dry, normal turgor, no rashes or lesions noted, normal capillary refill. Laboratory Results - last 24 hr 01/19/17 01/19/17 01/19/17 05:30 05:30 09:00 WBC 5.6 RBC 4.52 Hgb 13.3 Hct 39.8 MCV 88.0 MCH 29.4 MCHC 33.4 RDW 15.3 Plt Count 269 MPV 7.4 L Neutrophils % 61.5 Lymphocytes % 24.6 D Monocytes % 11.6 H Eosinophils % 1.9 D Basophils % 0.4 Sodium 118 L* 120 L* Potassium 4.6 4.1 Chloride 86 L 86 L Carbon Dioxide 22 26 Anion Gap 10 8 BUN 7 D 7 Creatinine 0.6 0.8 D Creat Clearance w eGFR > 60 Random Glucose 117 H 116 H Calcium 8.1 L 8.4 L Magnesium 2.2 Total Bilirubin 0.6 AST 70 H ALT 62 Alkaline Phosphatase 169 H Creatine Kinase 135 Troponin I < 0.02 Total Protein 7.1 Albumin 3.4 Lipase 71 L ASSESSMENT/PLAN: Patient is a 71 year old female who presented for a 2 day history of nonbloody watery diarrhea and was found to have severe hyponatremia. Patient admitted for further monitoring and management. Asymptomatic Severe Hyponatremia with Hypochloremia-Worsening -Initial Sodium 118 with history of hyponatremia as far back as 2013 but not this severe. Patient presents with Diarrhea which might contribute to her worsening hyponatremia secondary to GI losses and volume depletion -3% Saline started in the ED with 100cc given and stopped. Sodium jumped up to 121 -IV NS @75 mls/hr ordered. -BMP Q4H and do not correct more than 10 within 24 hours -Ordered Urine lytes, Urine osm, serum OSM and U/A to assess patient's volume status. Patient's calculated Serum OSM 255 -TSH, T3, T4, Cortisol, Amylase and Lipase, Lipids ordered to rule out any endocrine etiology -Stool cultures ordered -Will reconcile medications as some might cause hyponatremia. Will consult pharmacy History of Diarrhea with Abdominal Pain -Will rule out inflammatory or infectious etiology -CT Abdomen w/out contrast ordered -Stool cultures sent -Amylase and Lipase sent -Will contact Dr. Grubbs for further medical history -Will place on PPI's -Records show patient is on Rifaximin. Will confirm and resume -Patient has no leukocytosis, fevers, chills and now septic picture. Will hold off antibiotics and monitor Asymptomatic UTI -Patient has history of UTI's (+) for Klebsiella. -U/A positive but denies any symptoms such as frequency, dysuria, hematuria. Will monitor off Abx HTN -Continue home medication Amlodipine 5mg daily -Will confirm medications -Continue to monitor BP HLD -Lipid panel ordered -Currently on no medications Chornic Diastolic Heart Failure -Currently in no acute exacerbation -ECHO ordered GERD/PUD -recent colonoscopy done with Dr. Grubbs. Will contact for results -Continue PPI's -Will confirm home medications and resume CVA w/ Gait Instability and Urinary Incontinence -Reports having in 2009 and uses a walker -Reports not being on any ASA -Takes Oxybutynin chloride 15mg at home -Will confirm home medications and resume Left Meningioma Resection with Chronic Headaches -Follows Neurologist, Dr. Morton, for management -On Sumatriptan 50mg -On Divalproex (depakote)250mg and Valproic Acid 250mg according to records. Which may be for mood disorder due to the dosage -Will confirm medications and call Dr. Morton's office Anxiety/Depression -Records indicate patient takes Escitalopram 10mg, Quetiapine 25mg, Amitriptyline 25mg, Mirtazipine 7.5mg, Sertraline 50mg -Will confirm medications and resume the correct medications Chronic Anemia -Currently stable -Will monitor CBC Osteoarthritis -Patient currently on no medications but will confirm medications F/E/N -IV NS @75mls/hr -Hyponatremia. Replete and repeat slowly -Regular diet Prophylaxis -High Risk. Heparin 5000 Units SQ Q8H for DVT -PPI's for GI Disposition -Full code -Remains Hyponatremic and will require BMP checks Q4H. Will likely remain here another night inpatient Visit type - Emergency Visit Emergency Visit: Yes ED Registration Date: 01/19/17 Care time: The patient presented to the Emergency Department on the above date and was hospitalized for further evaluation of their emergent condition. - New Patient This patient is new to me today: Yes Date on this admission: 01/19/17 - Critical Care Critical Care patient: No
[2017-01-19] MEDS ORDERED: DIPHENOXYLATE 2.5/ATROPINE.025 1 COMBO TABLET ONE (11:26)
--- NOTE | 2017-01-19 11:33 | EKG ---
Test Reason : Blood Pressure : / mmHG Vent. Rate : 070 BPM Atrial Rate : 070 BPM P-R Int : 164 ms QRS Dur : 092 ms QT Int : 432 ms P-R-T Axes : 057 015 046 degrees QTc Int : 466 ms NORMAL SINUS RHYTHM NORMAL ECG WHEN COMPARED WITH ECG OF 31-DEC-2016 14:32, T WAVE INVERSION NO LONGER EVIDENT IN INFERIOR LEADS Confirmed by TERENCE GARCIA MD ([id number]) on 01/19/2017 11:33:23 AM Referred By: Confirmed By:TERENCE GARCIA MD
[2017-01-19 11:40] LABS: URINE APPEARANCE SLCLOUDY; URINE BILIRUBIN NEGATIVE (NEGATIVE); URINE BLOOD 2+ (NEGATIVE); URINE COLOR YELLOW; URINE GLUCOSE (UA) NEGATIVE (NEGATIVE); URINE KETONE TRACE (NEGATIVE); URINE LEUK ESTERASE TRACE (NEGATIVE); URINE NITRITE POSITIVE (NEGATIVE); URINE PROTEIN NEGATIVE (NEGATIVE); URINE UROBILINOGEN NEGATIVE mg/dL (0.2-1.0)
[2017-01-19 11:53] LABS: ANION GAP 9 (8-16); BLOOD UREA NITROGEN 8 mg/dL (7-18); CALCIUM 8.5 mg/dL (8.5-10.1); CHLORIDE 87 mmol/L (98-107); CO2 25 mmol/L (21-32); CREATININE 0.7 mg/dL (0.55-1.02); GLUCOSE,RANDOM 100 mg/dL (74-106); POTASSIUM 4.1 mmol/L (3.5-5.1)
[2017-01-19 11:55] LABS: URINE BACTERIA MODERATE /hpf (NONE SEEN); URINE MUCUS RARE
[2017-01-19 12:03] LABS: SODIUM 121 mmol/L (136-145)
[2017-01-19] MEDS ORDERED: LEVOFLOXACIN 500 MG TABLET (FP) PO ONE (12:19)
[2017-01-19] MEDS ORDERED: SODIUM CHLORIDE 1,000 ML IV SCH (12:30)
[2017-01-19 12:33] LABS: INR 1.01 (0.82-1.09); PROTHROMBIN TIME (PATIENT) 11.4 SEC (9.98-11.88)
[2017-01-19 12:36] LABS: ACTIVATED PTT 30.5 SECONDS (26.9-34.4)
--- NOTE | 2017-01-19 12:52 | PN ---
Teaching Attending Note Name of Resident: Ame Alvarado ATTENDING PHYSICIAN STATEMENT Time of evaluation: 10:45 AM I saw and evaluated the patient. I reviewed the resident's note and discussed the case with the resident. I agree with the resident's findings and plan as documented. SUBJECTIVE: 70 year-old female with a history of HTN, HLD, PUD, GERD, hiatal hernia, CVA 2009 with residual gait disorder, s/p left TKR 10/2015, OA, chronic anemia, s/p left meningioma resection 1999, nephrolithiasis, recurrent Klebsiella and MRSA UTIs, and opiate abuse, long stand history of headaches, frequent visits to ED comes with 2 days of multiple episodes of watery non bloody diarrhea with decreased PO intake. Also c/o right terrence-umbilical abdominal pain, pain only when touched, but no fevers, chills, nausea, vomiting, dizziness, recent antibiotics, hospital stay or weight loss. Patient is poor historian, initially denied prior episodes of diarrhea but then stated had a colonoscopy with Dr. Grubbs about a month ago for diarrhea. ALso has chronic intermittent headaches since her meningioma resection, had one on arrival to ED which is currently resolved. 12 piont ROS done, also positive for unsteady gait which is chronic and uses a walker for the same. Denies recent changes in her medications. No recent falls or new concerns noted. OBJECTIVE: Vital Signs Period Temp Pulse Resp BP Sys/Christensen Pulse Ox Last 24 Hr 98.9 F 71 18 134/102 97 Intake & Output 01/16/17 01/17/17 01/18/17 01/19/17 23:59 23:59 23:59 23:59 Weight 170 lb GENERAL: Awake, alert, and fully oriented, in no acute distress. HEAD: Normal with no signs of trauma. EYES: Pupils equal, round and reactive to light, extraocular movements intact, sclera anicteric, conjunctiva clear. No lid lag. EARS, NOSE, THROAT: Ears normal, nares patent, oropharynx clear without exudates. Mildly dry mucous membrane NECK: Normal range of motion, supple without lymphadenopathy, JVD LUNGS: Breath sounds equal, clear to auscultation bilaterally. No wheezes, and no crackles. No accessory muscle use. HEART: Regular rate and rhythm, normal S1 and S2 ABDOMEN: Soft, obese, mild tenderness in right paraumbilical region, neg Oviedo' s sign, not distended, normoactive bowel sounds, no guarding, no rebound, no masses. Unable to appreciate hepatomegaly or splenomegaly. MUSCULOSKELETAL: Left TKR with some limitation in ROM that is chronic, no spinal tenderness UPPER EXTREMITIES: 2+ pulses, warm, well-perfused. No cyanosis. No clubbing. LOWER EXTREMITIES: 2+ pulses, warm, well-perfused. No calf tenderness. trace pedal edema, surgical scar left knee with some deformity NEUROLOGICAL: Cranial nerves II-XII intact. Normal speech. Power 5/5, EOMI, PERRLA, facial symmetry, sensation intact to light touch, DTR b/l symmetric, no pronator drift PSYCHIATRIC: Cooperative. Good eye contact. Appropriate mood and affect. SKIN: Warm, dry, some decrease in skin turgor, no rashes or lesions noted, normal capillary refill. Home Medication List Medication Instructions Recorded Confirmed Type Dexlansoprazole [Dexilant] 60 mg PO DAILY 03/10/16 01/19/17 History Escitalopram Oxalate [Lexapro -] 10 mg PO DAILY 03/10/16 01/19/17 History Gabapentin 300 mg PO BID 03/10/16 01/19/17 History Amitriptyline HCl [Elavil -] 25 mg PO BID 12/15/16 01/19/17 History Amlodipine Besylate 5 mg PO DAILY 12/15/16 01/19/17 History Divalproex [Depakote -] 250 mg PO BID 12/15/16 01/19/17 History Oxybutynin Chloride [Ditropan Xl] 10 mg PO DAILY 12/15/16 01/19/17 History Quetiapine Fumarate [Seroquel -] 25 mg PO DAILY 12/15/16 01/19/17 History Active Medications Generic Name Dose Route Start Last Admin Trade Name Freq PRN Reason Stop Dose Admin Heparin Sodium (Porcine) 5,000 unit 01/19/17 14:00 Heparin - SQ TID KATHERINE Sodium Chloride 1,000 mls @ 75 mls/hr 01/19/17 12:30 Normal Saline - IV ASDIR [facility] Laboratory Tests 01/19/17 01/19/17 01/19/17 05:30 05:30 09:00 WBC 5.6 RBC 4.52 Hgb 13.3 Hct 39.8 MCV 88.0 MCH 29.4 MCHC 33.4 RDW 15.3 Plt Count 269 MPV 7.4 L Neutrophils % 61.5 Lymphocytes % 24.6 D Monocytes % 11.6 H Eosinophils % 1.9 D Basophils % 0.4 PT with INR INR PTT (Actin FS) Sodium 118 L* 120 L* Potassium 4.6 4.1 Chloride 86 L 86 L Carbon Dioxide 22 26 Anion Gap 10 8 BUN 7 D 7 Creatinine 0.6 0.8 D Creat Clearance w eGFR > 60 Random Glucose 117 H 116 H Calcium 8.1 L 8.4 L Magnesium 2.2 Total Bilirubin 0.6 AST 70 H ALT 62 Alkaline Phosphatase 169 H Creatine Kinase 135 Troponin I < 0.02 Total Protein 7.1 Albumin 3.4 Triglycerides Cholesterol Total LDL Cholesterol HDL Cholesterol Total Amylase Lipase 71 L TSH Free T4 Urine Color Urine Appearance Urine pH Ur Specific [place] Urine Protein Urine Glucose (UA) Urine Ketones Urine Blood Urine Nitrite Urine Bilirubin Urine Urobilinogen Urine WBC (Auto) Urine RBC (Auto) Urine Bacteria Urine Mucus Urine Osmolality Ur Random Sodium Ur Random Potassium Ur Random Chloride 01/19/17 01/19/17 01/19/17 11:07 11:07 11:07 WBC RBC Hgb Hct MCV MCH MCHC RDW Plt Count MPV Neutrophils % Lymphocytes % Monocytes % Eosinophils % Basophils % PT with INR INR PTT (Actin FS) Sodium 121 L* Potassium 4.1 Chloride 87 L Carbon Dioxide 25 Anion Gap 9 BUN 8 Creatinine 0.7 Creat Clearance w eGFR Random Glucose 100 Calcium 8.5 Magnesium Total Bilirubin AST ALT Alkaline Phosphatase Creatine Kinase Troponin I Total Protein Albumin Triglycerides 120 D Cholesterol 194 Total LDL Cholesterol 97 HDL Cholesterol 74 H Total Amylase 27 D Lipase 83 TSH 0.49 D Free T4 1.31 Cancelled Urine Color Urine Appearance Urine pH Ur Specific [place] Urine Protein Urine Glucose (UA) Urine Ketones Urine Blood Urine Nitrite Urine Bilirubin Urine Urobilinogen Urine WBC (Auto) Urine RBC (Auto) Urine Bacteria Urine Mucus Urine Osmolality Ur Random Sodium Ur Random Potassium Ur Random Chloride 01/19/17 01/19/17 01/19/17 11:25 11:25 11:25 WBC RBC Hgb Hct MCV MCH MCHC RDW Plt Count MPV Neutrophils % Lymphocytes % Monocytes % Eosinophils % Basophils % PT with INR INR PTT (Actin FS) Sodium Potassium Chloride Carbon Dioxide Anion Gap BUN Creatinine Creat Clearance w eGFR Random Glucose Calcium Magnesium Total Bilirubin AST ALT Alkaline Phosphatase Creatine Kinase Troponin I Total Protein Albumin Triglycerides Cholesterol Total LDL Cholesterol HDL Cholesterol Total Amylase Lipase TSH Free T4 Urine Color Yellow Urine Appearance Slcloudy Urine pH 6.0 Ur Specific [place] 1.014 Urine Protein Negative Urine Glucose (UA) Negative Urine Ketones Trace H Urine Blood 2+ H Urine Nitrite Positive Urine Bilirubin Negative Urine Urobilinogen Negative Urine WBC (Auto) 6 Urine RBC (Auto) 7 Urine Bacteria Moderate Urine Mucus Rare Urine Osmolality 326 D Ur Random Sodium 48 Ur Random Potassium 26.0 Ur Random Chloride 51 01/19/17 11:43 WBC RBC Hgb Hct MCV MCH MCHC RDW Plt Count MPV Neutrophils % Lymphocytes % Monocytes % Eosinophils % Basophils % PT with INR 11.40 INR 1.01 PTT (Actin FS) 30.5 Sodium Potassium Chloride Carbon Dioxide Anion Gap BUN Creatinine Creat Clearance w eGFR Random Glucose Calcium Magnesium Total Bilirubin AST ALT Alkaline Phosphatase Creatine Kinase Troponin I Total Protein Albumin Triglycerides Cholesterol Total LDL Cholesterol HDL Cholesterol Total Amylase Lipase TSH Free T4 Urine Color Urine Appearance Urine pH Ur Specific [place] Urine Protein Urine Glucose (UA) Urine Ketones Urine Blood Urine Nitrite Urine Bilirubin Urine Urobilinogen Urine WBC (Auto) Urine RBC (Auto) Urine Bacteria Urine Mucus Urine Osmolality Ur Random Sodium Ur Random Potassium Ur Random Chloride CXR - no evidence of active disease CT brain/A/P ordered - pending EKG NSR, no acute ST-T changes ASSESSMENT AND PLAN: 70 year-old female with a history of HTN, HLD, PUD, GERD, hiatal hernia, CVA 2009 with residual gait disorder, s/p left TKR 10/2015, OA, chronic anemia, s/p left meningioma resection 1999, nephrolithiasis, recurrent Klebsiella and MRSA UTIs, and opiate abuse admitted with diarrhea/abdominal pain and severe hyponatremia -Severe hyponatremia, suspect hypovolumic hyponatremia based on presentation, exam and labs -HYpochloremia, likely related to diarrhea -Diarrhea/abdominal pain -H/o Diastolic CHF -HTN -HLD -PUD -GERD/Hiatal Hernia -CVA 2009 wiht residual gait disorder -Left meningioma resection 1999 with chronic headaches Plan: Was placed on 3% Hypertonic saline by ED, which was discontinued after 100 ml. Nephrology consulted with Dr. Martinez, case discussed in detail, Repeat Na has been with slow improvement. Recommends NS at 75 ml/hr with BMP q4h, and ok for close monitoring on telemetry. ICU consulted with Dr. Bush, given no need for hypertonic saline and slow improvement, recommend telemetry monitoring with frequent Na checks. Strict I/Os, urine lytes, TSH, cortisol. Urinalysis noted, check urine cultures, patient currently with no clear symptoms , will watch closely off antibiotics. Diarrhea with unclear prior history. IVF as above, check stool studies including C difficile. Given vague abdominal tenderness, check CT A/P non contrast. Retrieve more information from Dr. Grubbs about recent colonoscopy and prior GI history. WIll place on PPI. Reconcile home meds, patient currently unaware. Hold lasix if still on it with close volume status monitoring. Will continue divalproex and seroquel as patient has been on the same chronically as reviewed from the records, if still on it. Call pharmacy to address if any recent medication changes. Chronic headache, currently resolved. Given hyponatremia with headache, will check CT head. Neuro checks. Needs close telemetry and electrolytes monitoring with gradual correction of her hyponatremia and additional w/u for GI symptoms as indicated. total admit time including patient visit and exam, discussion with housestaff, ED and Dr. Martinez 70 min.
--- NOTE | 2017-01-19 13:01 | CONSULT ---
Consult Consult Specialty:: Nephrology Reason for Consultation:: hyponatremia - History of Present Illness Chief Complaint: abdominal pain and diarrhea History of Present Illness: Pt is a 71 year old female with pmhx of hyponatremia (based on labs), craneotomy , CVA, GERD, and anxiety who presents to the ER complaining of diarrhea for the last two days. She says she had many bouts of diarrhea yesterday and today. She could not quantify. She also complains of abdominal pain. She says she has nausea and does not have much appetite. She is aware that she had low sodium in the past however is not sure why. She denies chest pain. She denies fevers or chills. She denies nsaid use. Pt received hypertonic saline and sodium improved from 118 to 121. 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 Cardio/Vascular: Yes: HTN, Hyperlipdemia Gastrointestinal: Yes: GERD, Hiatal Hernia, Peptic Ulcer Disease Psych: Yes: Anxiety Musculoskeletal: Yes: Osteoarthritis Endocrine: Yes: Diabetes Mellitus - Past Surgical History Past Surgical History: Yes: Cataract Removal (bilateral), Joint Replacement (RT KNEE) - Alcohol/Substance Use Hx Alcohol Use: No History of Substance Use: reports: None - Smoking History Smoking history: Never smoked Have you smoked in the past 12 months: No Aproximately how many cigarettes per day: 0 - Social History 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, 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 History of Recent Travel: No Home Medications - Allergies Allergies/Adverse Reactions: Allergies Allergy/AdvReac Type Severity Reaction Status Date / Time aspirin Allergy Severe "NERVOUS" Verified 01/19/17 05:01 morphine Allergy Severe "ANXIETY-DE Verified 01/19/17 05:01 SPERATION" - Home Medications Home Medications: Ambulatory Orders Dexlansoprazole [Dexilant] 60 mg PO DAILY 03/10/16 Escitalopram Oxalate [Lexapro -] 10 mg PO DAILY 03/10/16 Gabapentin 300 mg PO BID 03/10/16 Amitriptyline HCl [Elavil -] 25 mg PO BID 12/15/16 Amlodipine Besylate 5 mg PO DAILY 12/15/16 Divalproex [Depakote -] 250 mg PO BID 12/15/16 Oxybutynin Chloride [Ditropan Xl] 10 mg PO DAILY 12/15/16 Quetiapine Fumarate [Seroquel -] 25 mg PO DAILY 12/15/16 Family Disease History - Family Disease History Family History: Denies Review of Systems - Review of Systems Constitutional: reports: Malaise. denies: Chills Eyes: reports: No Symptoms HENT: reports: No Symptoms Neck: reports: No Symptoms Cardiovascular: reports: No Symptoms Respiratory: reports: No Symptoms Gastrointestinal: reports: Abdominal Pain, Diarrhea Genitourinary: reports: No Symptoms Musculoskeletal: reports: No Symptoms Integumentary: reports: No Symptoms Neurological: reports: No Symptoms Endocrine: reports: No Symptoms Hematology/Lymphatic: reports: No Symptoms Psychiatric: reports: No Symptoms Physical Exam Vital Signs: Vital Signs Temperature 98.9 F 01/19/17 05:02 Pulse Rate 71 01/19/17 05:02 Respiratory Rate 18 01/19/17 05:02 Blood Pressure 134/102 01/19/17 05:02 O2 Sat by Pulse Oximetry (%) 97 01/19/17 05:02 Constitutional: Yes: Calm Eyes: Yes: Conjunctiva Clear HENT: Yes: Atraumatic Neck: Yes: Supple Cardiovascular: Yes: S1, S2 Respiratory: Yes: CTA Bilaterally Gastrointestinal: Yes: Soft, Abdomen, Obese Renal/: Yes: WNL Musculoskeletal: Yes: WNL Extremities: Yes: WNL Edema: Yes Edema: LLE: 1+, RLE: 1+ Neurological: Yes: Oriented Psychiatric: Yes: Oriented Labs: CBC, BMP 01/19/17 05:30 01/19/17 11:07 Laboratory Tests 07/09/16 07/10/16 07/11/16 05:43 05:40 05:40 WBC Hgb PT with INR INR PTT (Actin FS) Sodium 135 L 135 L 135 L Potassium Chloride Carbon Dioxide Anion Gap BUN Creatinine Serum Osmolality Triglycerides Cholesterol Free T3 Cortisol AM Sample Urine Color Urine Appearance Urine pH Ur Specific [place] Urine Protein Urine Glucose (UA) Urine Ketones Urine Blood Urine Nitrite Urine Bilirubin Urine Osmolality Ur Random Sodium 11/04/16 11/20/16 12/12/16 00:05 16:20 16:25 WBC Hgb PT with INR INR PTT (Actin FS) Sodium 131 L 131 L 127 L Potassium Chloride Carbon Dioxide Anion Gap BUN Creatinine Serum Osmolality Triglycerides Cholesterol Free T3 Cortisol AM Sample Urine Color Urine Appearance Urine pH Ur Specific [place] Urine Protein Urine Glucose (UA) Urine Ketones Urine Blood Urine Nitrite Urine Bilirubin Urine Osmolality Ur Random Sodium 12/15/16 12/31/16 01/19/17 16:42 14:10 05:30 WBC 5.6 Hgb 13.3 PT with INR INR PTT (Actin FS) Sodium 133 L 129 L Potassium Chloride Carbon Dioxide Anion Gap BUN Creatinine Serum Osmolality Triglycerides Cholesterol Free T3 Cortisol AM Sample Urine Color Urine Appearance Urine pH Ur Specific [place] Urine Protein Urine Glucose (UA) Urine Ketones Urine Blood Urine Nitrite Urine Bilirubin Urine Osmolality Ur Random Sodium 01/19/17 01/19/17 01/19/17 05:30 09:00 11:07 WBC Hgb PT with INR INR PTT (Actin FS) Sodium 118 L* 120 L* Potassium Chloride Carbon Dioxide Anion Gap BUN Creatinine Serum Osmolality Pending Triglycerides Cholesterol Free T3 Cortisol AM Sample Urine Color Urine Appearance Urine pH Ur Specific [place] Urine Protein Urine Glucose (UA) Urine Ketones Urine Blood Urine Nitrite Urine Bilirubin Urine Osmolality Ur Random Sodium 01/19/17 01/19/17 01/19/17 11:07 11:07 11:07 WBC Hgb PT with INR INR PTT (Actin FS) Sodium 121 L* Potassium 4.1 Chloride 87 L Carbon Dioxide 25 Anion Gap 9 BUN 8 Creatinine 0.7 Serum Osmolality Triglycerides 120 D Cholesterol 194 Free T3 Pending Cortisol AM Sample Urine Color Urine Appearance Urine pH Ur Specific [place] Urine Protein Urine Glucose (UA) Urine Ketones Urine Blood Urine Nitrite Urine Bilirubin Urine Osmolality Ur Random Sodium 01/19/17 01/19/17 01/19/17 11:07 11:25 11:25 WBC Hgb PT with INR INR PTT (Actin FS) Sodium Potassium Chloride Carbon Dioxide Anion Gap BUN Creatinine Serum Osmolality Triglycerides Cholesterol Free T3 Cortisol AM Sample Pending Urine Color Yellow Urine Appearance Slcloudy Urine pH 6.0 Ur Specific [place] 1.014 Urine Protein Negative Urine Glucose (UA) Negative Urine Ketones Trace H Urine Blood 2+ H Urine Nitrite Positive Urine Bilirubin Negative Urine Osmolality Ur Random Sodium 48 01/19/17 01/19/17 11:25 11:43 WBC Hgb PT with INR 11.40 INR 1.01 PTT (Actin FS) 30.5 Sodium Potassium Chloride Carbon Dioxide Anion Gap BUN Creatinine Serum Osmolality Triglycerides Cholesterol Free T3 Cortisol AM Sample Urine Color Urine Appearance Urine pH Ur Specific [place] Urine Protein Urine Glucose (UA) Urine Ketones Urine Blood Urine Nitrite Urine Bilirubin Urine Osmolality 326 D Ur Random Sodium Imaging - Results Chest X-ray: Report Reviewed Assessment/Plan Current Medications Generic Name Dose Route Start Last Admin Trade Name Freq PRN Reason Stop Dose Admin Heparin Sodium (Porcine) 5,000 unit 01/19/17 14:00 Heparin - SQ TID KATHERINE Sodium Chloride 1,000 mls @ 75 mls/hr 01/19/17 12:30 Normal Saline - IV ASDIR KATHERINE Impression 1. Hyponatremia 2. CVA 3. HTN 4. hyperlipdemia 5. arthritis 6. diarrhea 7. abdominal pain Plan - can stop hypertonic saline - can switch fluids to NS - monitor sodium every 4 hours - reviewed labs, ordered stat bmp and reviewed it - discussed with medical team - pt has history of hyponatremia and she is rarely in the normal range - will need to evaluate osms and urine sodium once pt stabilizes as well - will need hospital admission - send urine cultures - check tsh and cortisol - pt may have reset osmostat and her sodium was worsened by diarrhea and GI losses Dr Martinez
[2017-01-19 13:20] LABS: PHOSPHOROUS 3.4 mg/dL (2.5-4.9)
[2017-01-19 13:41] LABS: MAGNESIUM 2.4 mg/dL (1.8-2.4)
[2017-01-19] MEDS ORDERED: LEVOFLOXACIN 250 MG TABLET (FP) ONE (14:22)
[2017-01-19] MEDS ORDERED: HEPARIN NA (PORCINE) 5,000 UNITS/ML 1ML VIAL ONE (14:23)
[2017-01-19] MEDS: HEPARIN NA (PORCINE) 5,000 UNITS/ML 1ML VIAL SQ SCH ×2 (14:32→22:17)
[2017-01-19 17:32] LABS: ANION GAP 8 (8-16); BLOOD UREA NITROGEN 6 mg/dL (7-18); CALCIUM 8.2 mg/dL (8.5-10.1); CHLORIDE 93 mmol/L (98-107); CO2 24 mmol/L (21-32); CREATININE 0.6 mg/dL (0.55-1.02); GLUCOSE,RANDOM 105 mg/dL (74-106); POTASSIUM 4.1 mmol/L (3.5-5.1); SODIUM 125 mmol/L (136-145)
[2017-01-19] MEDS: LIPASE/PROTEASE/AMYLASE 36,000 UNIT CAPSULE PO SCH (18:06)
--- NOTE | 2017-01-19 18:31 | CON.GI ---
Consult Consult Specialty:: gastroenterology Referred by:: hospitalist - History of Present Illness History of Present Illness: Patient is a 71 year old female who is a poor historian with a PMHx of CVA (2009 ), HTN, HLD, Cataracts w/ corrective surgery, Seizures s/p Brain surgery left meningioma (1999), Chronic anemia, anxiety, GERD/PUD and hyponatremia that she is aware of but unsure why who complains of nonbloody watery diarrhea for the past two days associated with abdominal pain and decreased oral intake. Patient reports the pain is nonradiating an constant in the mid epigastric region that occurs only when its palpated. Patient reports having a colonoscopy done last month with Dr. Grubbs for the diarrhea and states "something was wrong" and started her on medications. She denies any changes to her diet or medications or recent antibiotic use. Denies Chronic NSAID use. Denies any nausea, vomiting, dizziness, loss of consciousness, fever, chills, weight loss, night sweats, hematuria, frequency, dysuria, tingling or numbness in the LE and UE. Patient has chronic unsteady gait and uses a walker at baseline. Patient has a history of falls but no changes recently Patient known to me has extensive work-up fpr chronic epigastric pain including EGD, colonoscopy and catscans which fail to reveal any structural pathology.She developed non-bloody diarrhea for 2 days. 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, 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 History of Recent Travel: No Home Medications - Allergies Allergies/Adverse Reactions: Allergies Allergy/AdvReac Type Severity Reaction Status Date / Time aspirin Allergy Severe "NERVOUS" Verified 01/19/17 05:01 morphine Allergy Severe "ANXIETY-DE Verified 01/19/17 05:01 SPERATION" - Home Medications Home Medications: Ambulatory Orders Dexlansoprazole [Dexilant] 60 mg PO DAILY 03/10/16 Escitalopram Oxalate [Lexapro -] 10 mg PO DAILY 03/10/16 Amitriptyline HCl [Elavil -] 25 mg PO BID 12/15/16 Amlodipine Besylate 5 mg PO DAILY 12/15/16 Divalproex [Depakote -] 250 mg PO BID 12/15/16 Oxybutynin Chloride [Ditropan Xl] 15 mg PO DAILY 12/15/16 Quetiapine Fumarate [Seroquel -] 25 mg PO DAILY 12/15/16 Gabapentin 300 mg PO HS 01/19/17 Linaclotide [Linzess] 72 mcg PO DAILY 01/19/17 Lipase/Protease/Amylase [Kamari Nazario 36,000 Units Capsule] 1 each PO TID 01/19/17 Metoclopramide HCl [Reglan] 5 mg PO TID 01/19/17 Mirtazapine [Remeron -] 7.5 mg PO HS 01/19/17 Ondansetron HCl [Zofran] 4 mg PO TID PRN 01/19/17 Ranitidine [Zantac -] 300 mg PO HS 01/19/17 Rifaximin [Xifaxan] 550 mg PO TID 01/19/17 Sertraline HCl [Zoloft -] 50 mg PO HS 01/19/17 Sumatriptan Succinate [Imitrex -] 50 mg PO DAILY 01/19/17 Physical Exam-GI Vital Signs: Vital Signs Temperature 98.1 F 01/19/17 16:55 Pulse Rate 84 01/19/17 16:55 Respiratory Rate 18 01/19/17 16:55 Blood Pressure 164/75 01/19/17 16:55 O2 Sat by Pulse Oximetry (%) 98 01/19/17 16:55 Labs: CBC, BMP 01/19/17 05:30 01/19/17 17:00 INR, PTT INR 1.01 (0.82-1.09) 01/19/17 11:43
[2017-01-19] MEDS ORDERED: FLU VACCINE QUAD 60 MCG/0.5 ML (MDV 17-18) IM ONE (18:37)
[2017-01-19] MEDS ORDERED: PT OWN MED DRAWER 7, Y5N ONE (22:13)
[2017-01-19] MEDS: RIFAXIMIN 550 MG TABLET (UD) PO SCH (22:16)
[2017-01-19] MEDS: RANITIDINE HCL 150 MG TABLET (FP) PO SCH (22:16)
[2017-01-19] MEDS: MIRTAZAPINE 15 MG TABLET (FP) PO SCH (22:16)
[2017-01-19] MEDS: AMITRIPTYLINE HCL 25 MG TABLET (FP) PO SCH (22:17)
[2017-01-19] MEDS: GABAPENTIN 300 MG CAPSULE (FP) PO SCH (22:17)
[2017-01-19] MEDS: DIVALPROEX SODIUM 250 MG TABLET E.C. (FP) PO SCH (23:08)
[2017-01-20 01:22] LABS: BLOOD UREA NITROGEN 11 mg/dL (7-18); CALCIUM 8.9 mg/dL (8.5-10.1); CO2 27 mmol/L (21-32); CREATININE 0.8 mg/dL (0.55-1.02); GLUCOSE,RANDOM 103 mg/dL (74-106)
[2017-01-20 01:41] LABS: ANION GAP 9 (8-16); CHLORIDE 95 mmol/L (98-107); POTASSIUM 4.2 mmol/L (3.5-5.1); SODIUM 131 mmol/L (136-145)
--- NOTE | 2017-01-20 02:13 | PN ---
Progress Note (short form) - Note Progress Note: 01/20 00:01 BMP just revealed at 0211h showing Na of 131. Sodium corrected from 01/19/13 0730h at 118 for a total of 13mEq. Pt has no neurological symptoms at this point --Will start D5W @83cc/hr in attempt to bring Na down 3mEq currently. --Repeat BMP @ 0400h and reassess at that time.
[2017-01-20] MEDS ORDERED: DEXTROSE 5%-WATER - 1,000 ML IV SCH ×2 (02:45→05:25)
[2017-01-20 05:23] LABS: ANION GAP 5 (8-16); BLOOD UREA NITROGEN 9 mg/dL (7-18); CALCIUM 8.6 mg/dL (8.5-10.1); CHLORIDE 99 mmol/L (98-107); CO2 29 mmol/L (21-32); CREATININE 0.8 mg/dL (0.55-1.02); GLUCOSE,RANDOM 115 mg/dL (74-106); POTASSIUM 4.3 mmol/L (3.5-5.1); SODIUM 133 mmol/L (136-145)
[2017-01-20] MEDS: HEPARIN NA (PORCINE) 5,000 UNITS/ML 1ML VIAL SQ SCH ×3 (06:57→22:10)
[2017-01-20] MEDS: RIFAXIMIN 550 MG TABLET (UD) PO SCH ×3 (06:57→22:10)
[2017-01-20 07:21] LABS: HEMATOCRIT 36.8 % (32.4-45.2); HEMOGLOBIN 12.1 GM/dL (10.7-15.3); MCH 29.1 pg (25.7-33.7); MEAN CELL VOLUME 88.3 fl (80-96); MEAN PLT VOLUME 7.6 fl (7.5-11.1); PLATELET COUNT 248 K/MM3 (134-434); RBC 4.17 M/mm3 (3.60-5.2); RDW 15.7 % (11.6-15.6); WHITE BLOOD COUNT 4.9 K/mm3 (4.0-10.0)
[2017-01-20 07:46] LABS: MAGNESIUM 2.3 mg/dL (1.8-2.4); PHOSPHOROUS 3.3 mg/dL (2.5-4.9)
[2017-01-20] MEDS ORDERED: SUMAtriptan SUCCINATE 50 MG TABLET PO SCH (10:00)
[2017-01-20] MEDS ORDERED: PATIENT'S OWN MEDICATION (NON-FORMULARY) (Linaclotide [Linzess] 72 MCG) PO SCH (10:00)
[2017-01-20 10:02] LABS: CHLORIDE 97 mmol/L (98-107); POTASSIUM 4.2 mmol/L (3.5-5.1); SODIUM 131 mmol/L (136-145)
[2017-01-20 10:07] LABS: ANION GAP 8 (8-16); BLOOD UREA NITROGEN 9 mg/dL (7-18); CALCIUM 8.1 mg/dL (8.5-10.1); CO2 26 mmol/L (21-32); CREATININE 0.8 mg/dL (0.55-1.02); GLUCOSE,RANDOM 115 mg/dL (74-106)
[2017-01-20] MEDS ORDERED: PT OWN MED DRAWER 7, Y5N ONE ×2 (10:34→16:45)
[2017-01-20] MEDS: AMITRIPTYLINE HCL 25 MG TABLET (FP) PO SCH ×2 (11:00→22:10)
[2017-01-20] MEDS: DIVALPROEX SODIUM 250 MG TABLET E.C. (FP) PO SCH ×2 (11:01→22:10)
[2017-01-20] MEDS: SOLIFENACIN SUCCINATE 5 MG TAB (FP) PO SCH (11:01)
[2017-01-20] MEDS: ESCITALOPRAM OXALATE 10 MG TABLET (FP) PO SCH (11:01)
[2017-01-20] MEDS: amLODIPine BESYLATE 5 MG TABLET (FP) PO SCH (11:01)
[2017-01-20] MEDS: QUEtiapine FUMARATE 25 MG TABLET (FP) PO SCH (11:01)
[2017-01-20] MEDS: LIPASE/PROTEASE/AMYLASE 36,000 UNIT CAPSULE PO SCH ×3 (11:02→16:41)
[2017-01-20] MEDS: DEXTROSE 5%-WATER - 1,000 ML IV SCH ×2 (13:30→22:11)
[2017-01-20 14:58] LABS: ANION GAP 10 (8-16); BLOOD UREA NITROGEN 11 mg/dL (7-18); CHLORIDE 94 mmol/L (98-107); CO2 28 mmol/L (21-32); CREATININE 0.9 mg/dL (0.55-1.02); GLUCOSE,RANDOM 89 mg/dL (74-106); POTASSIUM 4.6 mmol/L (3.5-5.1); SODIUM 132 mmol/L (136-145)
--- NOTE | 2017-01-20 15:30 | PN ---
Progress Note, Physician History of Present Illness: Pt seen and examined at bedside. She denies diarrhea. - Current Medication List Current Medications: Active Medications Amitriptyline HCl (Elavil -) 25 mg PO BID [facility] Last Admin: 01/20/17 11:00 Dose: 25 mg Amlodipine Besylate (Norvasc -) 5 mg PO DAILY [facility] Last Admin: 01/20/17 11:01 Dose: 5 mg Divalproex Sodium (Depakote -) 250 mg PO BID [facility] Last Admin: 01/20/17 11:01 Dose: 250 mg Escitalopram Oxalate (Lexapro -) 10 mg PO DAILY [facility] Last Admin: 01/20/17 11:01 Dose: 10 mg Gabapentin (Neurontin -) 300 mg PO HS [facility] Last Admin: 01/19/17 22:17 Dose: 300 mg Heparin Sodium (Porcine) (Heparin -) 5,000 unit SQ TID [facility] Last Admin: 01/20/17 13:29 Dose: 5,000 unit Dextrose (D5w -) 1,000 mls @ 83 mls/hr IV Q12H [facility] Last Admin: 01/20/17 13:30 Dose: 83 mls/hr Mirtazapine (Remeron -) 7.5 mg PO HS [facility] Last Admin: 01/19/17 22:16 Dose: 7.5 mg Non-Formulary Medication (Linaclotide [Linzess]) 72 mcg PO DAILY [facility] Pancrelipase (Creon Dr 36,000 Units Capsule) 1 cap PO TIDCM [facility] Last Admin: 01/20/17 11:02 Dose: 1 cap Quetiapine Fumarate (Seroquel -) 25 mg PO DAILY [facility] Last Admin: 01/20/17 11:01 Dose: 25 mg Ranitidine HCl (Zantac -) 300 mg PO HS [facility] Last Admin: 01/19/17 22:16 Dose: 300 mg Rifaximin (Xifaxan -) 550 mg PO TID [facility] Last Admin: 01/20/17 13:29 Dose: 550 mg Solifenacin (Vesicare -) 10 mg PO DAILY [facility] Last Admin: 01/20/17 11:01 Dose: 10 mg - Objective Vital Signs: Vital Signs Temperature 98.1 F 01/20/17 10:00 Pulse Rate 85 01/20/17 10:00 Respiratory Rate 20 01/20/17 10:00 Blood Pressure 157/91 01/20/17 10:00 O2 Sat by Pulse Oximetry (%) 96 01/20/17 10:00 Constitutional: Yes: Calm Eyes: Yes: WNL Cardiovascular: Yes: S1, S2 Respiratory: Yes: CTA Bilaterally Gastrointestinal: Yes: Soft, Abdomen, Obese Genitourinary: Yes: WNL Musculoskeletal: Yes: WNL Extremities: Yes: WNL Edema: No Neurological: Yes: Oriented Psychiatric: Yes: Oriented Labs: CBC, BMP 01/20/17 05:05 01/20/17 14:20 INR, PTT INR 1.01 (0.82-1.09) 01/19/17 11:43 Problem List - Problems (1) Diarrhea Code(s): R19.7 - DIARRHEA, UNSPECIFIED Qualifiers: Diarrhea type: unspecified type Qualified Code(s): R19.7 - Diarrhea, unspecified (2) Hyponatremia Code(s): E87.1 - HYPO-OSMOLALITY AND HYPONATREMIA (3) UTI (urinary tract infection) Code(s): N39.0 - URINARY TRACT INFECTION, SITE NOT SPECIFIED (4) Acid reflux disease with ulcer Code(s): K21.9 - GASTRO-ESOPHAGEAL REFLUX DISEASE WITHOUT ESOPHAGITIS Assessment/Plan Current Medications Generic Name Dose Route Start Last Admin Trade Name Freq PRN Reason Stop Dose Admin Amitriptyline HCl 25 mg 01/19/17 22:00 01/20/17 11:00 Elavil - PO 25 mg BID KATHERINE Administration Amlodipine Besylate 5 mg 01/20/17 10:00 01/20/17 11:01 Norvasc - PO 5 mg DAILY KATHERINE Administration Divalproex Sodium 250 mg 01/19/17 22:00 01/20/17 11:01 Depakote - PO 250 mg BID KATHERINE Administration Escitalopram Oxalate 10 mg 01/20/17 10:00 01/20/17 11:01 Lexapro - PO 10 mg DAILY KATHERINE Administration Gabapentin 300 mg 01/19/17 22:00 01/19/17 22:17 Neurontin - PO 300 mg HS KATHERINE Administration Heparin Sodium (Porcine) 5,000 unit 01/19/17 14:00 01/20/17 13:29 Heparin - SQ 5,000 unit TID KATHERINE Administration Dextrose 1,000 mls @ 83 mls/hr 01/20/17 11:00 01/20/17 13:30 D5w - IV 83 mls/hr Q12H KATHERINE Administration Mirtazapine 7.5 mg 01/19/17 22:00 01/19/17 22:16 Remeron - PO 7.5 mg HS KATHERINE Administration Non-Formulary Medication 72 mcg 01/20/17 10:00 Linaclotide [Linzess] PO DAILY KATHERINE Pancrelipase 1 cap 01/19/17 17:30 01/20/17 11:02 Crecristina Nazario 36,000 Units Capsule PO 1 cap TIDCM KATHERINE Administration Quetiapine Fumarate 25 mg 01/20/17 10:00 01/20/17 11:01 Seroquel - PO 25 mg DAILY KATHERINE Administration Ranitidine HCl 300 mg 01/19/17 22:00 01/19/17 22:16 Zantac - PO 300 mg HS KATHERINE Administration Rifaximin 550 mg 01/19/17 22:00 01/20/17 13:29 Xifaxan - PO 550 mg TID KATHERINE Administration Solifenacin 10 mg 01/20/17 10:00 01/20/17 11:01 Vesicare - PO 10 mg DAILY KATHERINE Administration Laboratory Tests 01/19/17 01/19/17 01/19/17 05:30 11:07 11:07 Sodium 118 L* Serum Osmolality 254 L Free T4 1.31 Cortisol AM Sample Urine Osmolality Ur Random Sodium 01/19/17 01/19/17 01/19/17 11:07 11:25 11:25 Sodium Serum Osmolality Free T4 Cortisol AM Sample 13.8 Urine Osmolality 326 D Ur Random Sodium 48 01/20/17 01/20/17 01/20/17 00:00 04:30 14:20 Sodium 131 L 133 L 132 L Serum Osmolality Free T4 Cortisol AM Sample Urine Osmolality Ur Random Sodium Impression 1. Hyponatremia 2. CVA 3. HTN 4. hyperlipdemia 5. arthritis 6. diarrhea 7. abdominal pain Plan - sodium is improved, switched fluids to d5w to slow correction - pt autocorrecting sodium - will likely stop d5w after next blood-draw - will need to follow in office to evaluate hyponatremia - likely exacerbation of hyponatremia secondary to GI losses - follow cultures - discussed with primary team Dr Martinez
[2017-01-20] MEDS ORDERED: ONDANSETRON 4 MG TABLET PO PRN (15:39)
--- NOTE | 2017-01-20 16:02 | PN ---
Physical Exam: SUBJECTIVE: Patient seen and examined at bedside. Patient states that she has some epigastric abdominal pain but it has been there before and has been improving. She states that she had diarrhea yesterday, but no bowel movements today. Denies fever, chills, nausea, vomiting, OBJECTIVE: Vital Signs Period Temp Pulse Resp BP Sys/Christensen Pulse Ox Last 24 Hr 98.1 F-99 F 75-103 16-20 117-164/57-91 94-98 GENERAL: The patient is awake, alert, and fully oriented, in no acute distress. HEAD: Normal with no signs of trauma. EYES: PERRL, extraocular movements intact, sclera anicteric, conjunctiva clear. No ptosis. ENT: Ears normal, nares patent, oropharynx clear without exudates, moist mucous membranes. NECK: Trachea midline, full range of motion, supple. LUNGS: Breath sounds equal, clear to auscultation bilaterally, no wheezes, no crackles, no accessory muscle use. HEART: Regular rate and rhythm, S1, S2 without murmur, rub or gallop. ABDOMEN: Obese, Soft, mildly tender in the epigastrum, nondistended, normoactive bowel sounds, no guarding, no rebound, no hepatosplenomegaly, no masses. EXTREMITIES: 2+ pulses, warm, well-perfused, no edema. NEUROLOGICAL: Cranial nerves II through XII grossly intact. Normal speech, gait not observed. PSYCH: Normal mood, normal affect. SKIN: Warm, dry, normal turgor, no rashes or lesions noted Laboratory Results - last 24 hr 01/19/17 01/19/17 01/19/17 11:07 11:07 11:25 WBC RBC Hgb Hct MCV MCH MCHC RDW Plt Count MPV Sodium Potassium Chloride Carbon Dioxide Anion Gap BUN Creatinine Random Glucose Calcium Phosphorus Magnesium Free T3 2.9 Cortisol AM Sample 13.8 Ur Leukocyte Esterase Negative 01/19/17 01/20/17 01/20/17 17:00 00:00 04:30 WBC RBC Hgb Hct MCV MCH MCHC RDW Plt Count MPV Sodium 125 L 131 L 133 L Potassium 4.1 4.2 4.3 Chloride 93 L 95 L 99 Carbon Dioxide 24 27 29 Anion Gap 8 9 5 L BUN 6 L D 11 D 9 Creatinine 0.6 0.8 D 0.8 Random Glucose 105 103 115 H Calcium 8.2 L 8.9 8.6 Phosphorus Magnesium Free T3 Cortisol AM Sample Ur Leukocyte Esterase 01/20/17 01/20/17 01/20/17 05:05 05:05 09:00 WBC 4.9 RBC 4.17 Hgb 12.1 Hct 36.8 MCV 88.3 MCH 29.1 MCHC 33.0 RDW 15.7 H Plt Count 248 MPV 7.6 Sodium 131 L Potassium 4.2 Chloride 97 L Carbon Dioxide 26 Anion Gap 8 BUN 9 Creatinine 0.8 Random Glucose 115 H Calcium 8.1 L Phosphorus 3.3 Magnesium 2.3 Free T3 Cortisol AM Sample Ur Leukocyte Esterase 01/20/17 14:20 WBC RBC Hgb Hct MCV MCH MCHC RDW Plt Count MPV Sodium 132 L Potassium 4.6 Chloride 94 L Carbon Dioxide 28 Anion Gap 10 BUN 11 D Creatinine 0.9 Random Glucose 89 D Calcium 9.0 Phosphorus Magnesium Free T3 Cortisol AM Sample Ur Leukocyte Esterase Active Medications Generic Name Dose Route Start Last Admin Trade Name Freq PRN Reason Stop Dose Admin Amitriptyline HCl 25 mg 01/19/17 22:00 01/20/17 11:00 Elavil - PO 25 mg BID KATHERINE Administration Amlodipine Besylate 5 mg 01/20/17 10:00 01/20/17 11:01 Norvasc - PO 5 mg DAILY KATHERINE Administration Divalproex Sodium 250 mg 01/19/17 22:00 01/20/17 11:01 Depakote - PO 250 mg BID KATHERINE Administration Escitalopram Oxalate 10 mg 01/20/17 10:00 01/20/17 11:01 Lexapro - PO 10 mg DAILY KATHERINE Administration Gabapentin 300 mg 01/19/17 22:00 01/19/17 22:17 Neurontin - PO 300 mg HS KATHERINE Administration Heparin Sodium (Porcine) 5,000 unit 01/19/17 14:00 01/20/17 13:29 Heparin - SQ 5,000 unit TID KATHERINE Administration Dextrose 1,000 mls @ 83 mls/hr 01/20/17 11:00 01/20/17 13:30 D5w - IV 83 mls/hr Q12H KATHERINE Administration Mirtazapine 7.5 mg 01/19/17 22:00 01/19/17 22:16 Remeron - PO 7.5 mg HS KATHERINE Administration Non-Formulary Medication 72 mcg 01/20/17 10:00 Linaclotide [Linzess] PO DAILY KATHERINE Ondansetron HCl 4 mg 01/20/17 15:39 Zofran - PO 01/20/17 15:40 TID ONE Pancrelipase 1 cap 01/19/17 17:30 01/20/17 11:02 Kamari Nazario 36,000 Units Capsule PO 1 cap TIDCM KATHERINE Administration Quetiapine Fumarate 25 mg 01/20/17 10:00 01/20/17 11:01 Seroquel - PO 25 mg DAILY KATHERINE Administration Ranitidine HCl 300 mg 01/19/17 22:00 01/19/17 22:16 Zantac - PO 300 mg HS KATHERINE Administration Rifaximin 550 mg 01/19/17 22:00 01/20/17 13:29 Xifaxan - PO 550 mg TID KATHERINE Administration Solifenacin 10 mg 01/20/17 10:00 01/20/17 11:01 Vesicare - PO 10 mg DAILY KATHERINE Administration ASSESSMENT/PLAN: Patient is a 71 year old female who presented for a 2 day history of nonbloody watery diarrhea and was found to have severe hyponatremia. Patient admitted for further monitoring and management. #Hyponatremia: resolving, likely secondary from GI losses due to diarrhea -Initial Sodium 118 --> up ot 132 currently -fluids were switched to D5W to slow correction, BMP ordered Q4 hours, can stop after next BMP -patient is likely autocorrecting her sodium -continue to monitor and re-evaluate tomorrow #Diarrhea: resolving, no diarrhea according to patient today -CT Abdomen w/out contrast shows no acute pathology -s/u stool cultures sent -Dr. Grubbs did colonoscopy 1 month ago was negative for acute pathology -continue rifaximin -Patient has no leukocytosis, fevers, chills and now septic picture #Asymptomatic UTI: not an acute complaint -Patient has history of UTI's (+) for Klebsiella. -monitor of Abx #HTN: -Amlodipine 5mg daily -Continue to monitor BP #HLD: -Currently on no medications #Heart Failure with Preserved Ejection Fraction: -Currently in no acute exacerbation -ECHO ordered #GERD/PUD -Continue PPI's -Continue Pancrealipase #CVA: causing urinary incontinence and gait instability; no current issues, patient can walk -uses walker -Reports not being on any ASA #Left Meningioma Resection with Chronic Headaches -Follows Neurologist, Dr. Morton, for management -continue Sumatriptan 50mg -continue Divalproex (depakote)250mg and Valproic Acid 250 #Anxiety/Depression -Continue Escitalopram 10mg, Quetiapine 25mg, Amitriptyline 25mg, Mirtazipine 7.5mg, Sertraline 50mg #Chronic Anemia: stable -AM CBC #FEN -D5W -hyponatremia, slowly follow tomorrow -Regular diet Prophylaxis: -Heparin 5000 Units SQ Q8H -PPI's for GI Disposition: continue to monitor on floors -Full code Visit type - Emergency Visit Emergency Visit: No - New Patient This patient is new to me today: Yes Date on this admission: 01/20/17 - Critical Care Critical Care patient: No
[2017-01-20] MEDS ORDERED: ONDANSETRON 4 MG TABLET PO ONE (16:30)
--- NOTE | 2017-01-20 17:46 | PN ---
Teaching Attending Note Name of Resident: Galdino Cartagena ATTENDING PHYSICIAN STATEMENT Time of evaluation: 9:45 AM I saw and evaluated the patient. I reviewed the resident's note and discussed the case with the resident. I agree with the resident's findings and plan as documented. SUBJECTIVE: Patient seen and examined. no nausea, vomitting, diarrhea noted. Abdominal pain unchanged but tolerating PO well, has been chronic. No more headaches. OBJECTIVE: Vital Signs Period Temp Pulse Resp BP Sys/Christensen Pulse Ox Last 24 Hr 98.1 F-99 F 75-103 16-20 117-157/57-91 94-96 Intake & Output 01/17/17 01/18/17 01/19/17 01/20/17 23:59 23:59 23:59 23:59 Intake Total 555 700 Balance 555 700 Weight 170 lb General: ambulating in room in no acute distress CVS:S1S2 regular Chest: CTAB, no rales or wheezing abdomen: soft, minimal unchanged right paraumbilical tenderness, no voluntary or involuntary guarding or rigidity Extremities: no edema Home Medication List Medication Instructions Recorded Confirmed Type Dexlansoprazole [Dexilant] 60 mg PO DAILY 03/10/16 01/19/17 History Escitalopram Oxalate [Lexapro -] 10 mg PO DAILY 03/10/16 01/19/17 History Amitriptyline HCl [Elavil -] 25 mg PO BID 12/15/16 01/19/17 History Amlodipine Besylate 5 mg PO DAILY 12/15/16 01/19/17 History Divalproex [Depakote -] 250 mg PO BID 12/15/16 01/19/17 History Oxybutynin Chloride [Ditropan Xl] 15 mg PO DAILY 12/15/16 01/19/17 History Quetiapine Fumarate [Seroquel -] 25 mg PO DAILY 12/15/16 01/19/17 History Gabapentin 300 mg PO HS 01/19/17 01/19/17 History Linaclotide [Linzess] 72 mcg PO DAILY 01/19/17 01/19/17 History Lipase/Protease/Amylase [Creon Dr 1 each PO TID 01/19/17 01/19/17 History 36,000 Units Capsule] Metoclopramide HCl [Reglan] 5 mg PO TID 01/19/17 01/19/17 History Mirtazapine [Remeron -] 7.5 mg PO HS 01/19/17 01/19/17 History Ondansetron HCl [Zofran] 4 mg PO TID PRN 01/19/17 01/19/17 History Ranitidine [Zantac -] 300 mg PO HS 01/19/17 01/19/17 History Rifaximin [Xifaxan] 550 mg PO TID 01/19/17 01/19/17 History Sertraline HCl [Zoloft -] 50 mg PO HS 01/19/17 01/19/17 History Sumatriptan Succinate [Imitrex -] 50 mg PO DAILY 01/19/17 01/19/17 History Active Medications Generic Name Dose Route Start Last Admin Trade Name Yonathanq PRN Reason Stop Dose Admin Amitriptyline HCl 25 mg 01/19/17 22:00 01/20/17 11:00 Elavil - PO 25 mg BID KATHERINE Administration Amlodipine Besylate 5 mg 01/20/17 10:00 01/20/17 11:01 Norvasc - PO 5 mg DAILY KATHERINE Administration Divalproex Sodium 250 mg 01/19/17 22:00 01/20/17 11:01 Depakote - PO 250 mg BID KATHERINE Administration Escitalopram Oxalate 10 mg 01/20/17 10:00 01/20/17 11:01 Lexapro - PO 10 mg DAILY KATHERINE Administration Gabapentin 300 mg 01/19/17 22:00 01/19/17 22:17 Neurontin - PO 300 mg HS KATHERINE Administration Heparin Sodium (Porcine) 5,000 unit 01/19/17 14:00 01/20/17 13:29 Heparin - SQ 5,000 unit TID KATHERINE Administration Dextrose 1,000 mls @ 83 mls/hr 01/20/17 11:00 01/20/17 13:30 D5w - IV 83 mls/hr Q12H KATHERINE Administration Mirtazapine 7.5 mg 01/19/17 22:00 01/19/17 22:16 Remeron - PO 7.5 mg HS KATHERINE Administration Non-Formulary Medication 72 mcg 01/20/17 10:00 Linaclotide [Linzess] PO DAILY KATHERINE Ondansetron HCl 4 mg 01/20/17 15:39 Zofran - PO Q8H PRN Pancrelipase 1 cap 01/19/17 17:30 01/20/17 16:41 Kamari Nazario 36,000 Units Capsule PO 1 cap TIDCM KATHERINE Administration Quetiapine Fumarate 25 mg 01/20/17 10:00 01/20/17 11:01 Seroquel - PO 25 mg DAILY KATHERINE Administration Ranitidine HCl 300 mg 01/19/17 22:00 01/19/17 22:16 Zantac - PO 300 mg HS KATHERINE Administration Rifaximin 550 mg 01/19/17 22:00 01/20/17 13:29 Xifaxan - PO 550 mg TID KATHERINE Administration Solifenacin 10 mg 01/20/17 10:00 01/20/17 11:01 Vesicare - PO 10 mg DAILY KATHERINE Administration Laboratory Results - last 24 hr 01/19/17 01/19/17 01/19/17 11:07 11:07 11:25 WBC RBC Hgb Hct MCV MCH MCHC RDW Plt Count MPV Sodium Potassium Chloride Carbon Dioxide Anion Gap BUN Creatinine Random Glucose Calcium Phosphorus Magnesium Free T3 2.9 Cortisol AM Sample 13.8 Ur Leukocyte Esterase Negative 01/20/17 01/20/17 01/20/17 00:00 04:30 05:05 WBC 4.9 RBC 4.17 Hgb 12.1 Hct 36.8 MCV 88.3 MCH 29.1 MCHC 33.0 RDW 15.7 H Plt Count 248 MPV 7.6 Sodium 131 L 133 L Potassium 4.2 4.3 Chloride 95 L 99 Carbon Dioxide 27 29 Anion Gap 9 5 L BUN 11 D 9 Creatinine 0.8 D 0.8 Random Glucose 103 115 H Calcium 8.9 8.6 Phosphorus Magnesium Free T3 Cortisol AM Sample Ur Leukocyte Esterase 01/20/17 01/20/17 01/20/17 05:05 09:00 14:20 WBC RBC Hgb Hct MCV MCH MCHC RDW Plt Count MPV Sodium 131 L 132 L Potassium 4.2 4.6 Chloride 97 L 94 L Carbon Dioxide 26 28 Anion Gap 8 10 BUN 9 11 D Creatinine 0.8 0.9 Random Glucose 115 H 89 D Calcium 8.1 L 9.0 Phosphorus 3.3 Magnesium 2.3 Free T3 Cortisol AM Sample Ur Leukocyte Esterase ASSESSMENT AND PLAN: 70 year-old female with a history of HTN, HLD, PUD, GERD, hiatal hernia, 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 Off fluids, tolerating PO, no further diarrhea. Suspect acute on chronic hyponatremia from diarrhea. Repeat Na this evening, if stable, recheck in Am. Multiple psychiatric meds, which are likely contributing to her chronic hyponatremia. COnfirmed with pharmacy, zoloft recent in last 2 weeks, will hold for now. Given all other meds have been long standing will hold off on changing for now and defer to outpatient psychiatry to eventual taper them with serial na monitoring. GI input noted, recent outpatient colonoscopy reportedly normal. HOld dexilant for now. Continue ranitidine. Unlikely infectious diarrhea. DVTPPX dispo d/c in 48 hours if Na levels stable and no new concerns.
[2017-01-20 19:58] LABS: CALCIUM 8.5 mg/dL (8.5-10.1); CHLORIDE 93 mmol/L (98-107); POTASSIUM 4.5 mmol/L (3.5-5.1); SODIUM 127 mmol/L (136-145)
[2017-01-20 20:02] LABS: ANION GAP 7 (8-16); BLOOD UREA NITROGEN 12 mg/dL (7-18); CO2 27 mmol/L (21-32); CREATININE 0.9 mg/dL (0.55-1.02); GLUCOSE,RANDOM 100 mg/dL (74-106)
[2017-01-20] MEDS ORDERED: SODIUM CHLORIDE 500 ML IV SCH (20:30)
[2017-01-20] MEDS: RANITIDINE HCL 150 MG TABLET (FP) PO SCH (22:10)
[2017-01-20] MEDS: GABAPENTIN 300 MG CAPSULE (FP) PO SCH (22:10)
[2017-01-20] MEDS: MIRTAZAPINE 15 MG TABLET (FP) PO SCH (22:10)
[2017-01-20 23:23] LABS: ANION GAP 9 (8-16); BLOOD UREA NITROGEN 14 mg/dL (7-18); CHLORIDE 93 mmol/L (98-107); CO2 29 mmol/L (21-32); GLUCOSE,RANDOM 100 mg/dL (74-106); POTASSIUM 4.3 mmol/L (3.5-5.1); SODIUM 131 mmol/L (136-145)
[2017-01-21 02:38] LABS: ANION GAP 9 (8-16); BLOOD UREA NITROGEN 13 mg/dL (7-18); CALCIUM 8.5 mg/dL (8.5-10.1); CHLORIDE 97 mmol/L (98-107); CO2 29 mmol/L (21-32); CREATININE 0.9 mg/dL (0.55-1.02); GLUCOSE,RANDOM 128 mg/dL (74-106); POTASSIUM 4.1 mmol/L (3.5-5.1); SODIUM 135 mmol/L (136-145)
[2017-01-21] MEDS: RIFAXIMIN 550 MG TABLET (UD) PO SCH ×3 (06:19→13:03)
[2017-01-21] MEDS: HEPARIN NA (PORCINE) 5,000 UNITS/ML 1ML VIAL SQ SCH ×2 (06:19→13:03)
[2017-01-21] MEDS ORDERED: PT OWN MED DRAWER 7, Y5N ONE ×2 (08:30→09:10)
[2017-01-21 08:36] LABS: ANION GAP 8 (8-16); BLOOD UREA NITROGEN 11 mg/dL (7-18); CALCIUM 8.1 mg/dL (8.5-10.1); CHLORIDE 101 mmol/L (98-107); CO2 28 mmol/L (21-32); CREATININE 0.8 mg/dL (0.55-1.02); GLUCOSE,RANDOM 102 mg/dL (74-106); POTASSIUM 4.4 mmol/L (3.5-5.1); SODIUM 137 mmol/L (136-145)
[2017-01-21] MEDS: SOLIFENACIN SUCCINATE 5 MG TAB (FP) PO SCH (09:03)
[2017-01-21] MEDS: QUEtiapine FUMARATE 25 MG TABLET (FP) PO SCH (09:04)
[2017-01-21] MEDS: amLODIPine BESYLATE 5 MG TABLET (FP) PO SCH (09:04)
[2017-01-21] MEDS: ESCITALOPRAM OXALATE 10 MG TABLET (FP) PO SCH (09:04)
[2017-01-21] MEDS: AMITRIPTYLINE HCL 25 MG TABLET (FP) PO SCH (09:04)
[2017-01-21] MEDS: DIVALPROEX SODIUM 250 MG TABLET E.C. (FP) PO SCH (09:11)
[2017-01-21] MEDS: LIPASE/PROTEASE/AMYLASE 36,000 UNIT CAPSULE PO SCH ×2 (09:11→12:14)
--- NOTE | 2017-01-21 09:34 | PN ---
Physical Exam: SUBJECTIVE: Patient seen and examined. Doing well, though states she has pain in her epigastric region, not TTP. Had no episodes of diarrhea last night. Ate her breakfast well. OBJECTIVE: Vital Signs Period Temp Pulse Resp BP Sys/Christensen Pulse Ox Last 24 Hr 98.1 F-99.5 F 70-103 18-20 104-157/46-91 96-97 GEN: AAOx3, NAD, ambulating in the room, finished eating breakfast HEENT: PERRLA, EOMi CV: S1, S2, RRR LUNG: CTABL, no rales, crackles, wheezing ABD: Soft, NT, ND, normoactive BS MSK: No edema, no erythema NEURO: CN 2-12 grossly intact, 5/5 strength in all quadrants Active Medications Generic Name Dose Route Start Last Admin Trade Name Freq PRN Reason Stop Dose Admin Amitriptyline HCl 25 mg 01/19/17 22:00 01/21/17 09:04 Elavil - PO 25 mg BID KATHERINE Administration Amlodipine Besylate 5 mg 01/20/17 10:00 01/21/17 09:04 Norvasc - PO 5 mg DAILY KATHERINE Administration Divalproex Sodium 250 mg 01/19/17 22:00 01/21/17 09:11 Depakote - PO 250 mg BID KATHERINE Administration Escitalopram Oxalate 10 mg 01/20/17 10:00 01/21/17 09:04 Lexapro - PO 10 mg DAILY KATHERINE Administration Gabapentin 300 mg 01/19/17 22:00 01/20/17 22:10 Neurontin - PO 300 mg HS KATHERINE Administration Heparin Sodium (Porcine) 5,000 unit 01/19/17 14:00 01/21/17 06:19 Heparin - SQ 5,000 unit TID KATHERINE Administration Dextrose 1,000 mls @ 83 mls/hr 01/20/17 11:00 01/20/17 22:11 D5w - IV Not Given Q12H KATHERINE Mirtazapine 7.5 mg 01/19/17 22:00 01/20/17 22:10 Remeron - PO 7.5 mg HS KATHERINE Administration Non-Formulary Medication 72 mcg 01/20/17 10:00 Linaclotide [Linzess] PO DAILY KATHERINE Ondansetron HCl 4 mg 01/20/17 15:39 Zofran - PO Q8H PRN Pancrelipase 1 cap 01/19/17 17:30 01/21/17 09:11 Creon 36,000 Units Capsule PO 1 cap TIDCM KATHERINE Administration Quetiapine Fumarate 25 mg 01/20/17 10:00 01/21/17 09:04 Seroquel - PO 25 mg DAILY KATHERINE Administration Ranitidine HCl 300 mg 01/19/17 22:00 01/20/17 22:10 Zantac - PO 300 mg HS KATHERINE Administration Rifaximin 550 mg 01/19/17 22:00 01/21/17 06:44 Xifaxan - PO Not Given TID KATHERINE Solifenacin 10 mg 01/20/17 10:00 01/21/17 09:03 Vesicare - PO 10 mg DAILY KATHERINE Administration ASSESSMENT/PLAN: Patient is a 71 year old female who presented for a 2 day history of nonbloody watery diarrhea and was found to have severe hyponatremia. Patient admitted for further monitoring and management. # Acute on Chronic Hyponatremia - Slowly correcting. Likely hypovolemic secondary to GI losses from diarrhea. Possible contribution from multiple Psych meds. Diarrhea resolved. Rate of correction overall was 17meq in 48 hours. Will now monitor off IVF w/ BMP Q4h currently. Of note, patient has chronic hyponatremia. Mental status has remained unchanged. # Diarrhea - Resolving. Unclear cause. Infectious etiology unlikely due to no WBC and fever. Negative CT abd/pelvis noncon. Negative Colonoscopy 1 mo ago # Chronic Epigastric Pain - Has had extensive work-up by Dr Grubbs including EGD, Colonoscopy, CT scans, without findings. Pain is mild. Continue PPI and Pancrealipase # Asymptomatic UTI - UA shows +moderate bacteria, +nitrites. Pending UCx. Not on abx due to asymptomatic nature. # HTN - Well controlled on Norvasc 5 daily # dCHF - Not in exacerbation, on low dose fluids, monitor volume status, diuretics as needed # Chronic Headache - s/p L meningioma resection. Continue Sumatriptan 50, Depakote 250, Valproate 250 # MDD/Anxiety - Continue Escitalopram 10mg, Quetiapine 25mg, Amitriptyline 25mg , Mirtazipine 7.5mg, Sertraline 50mg # FEN - off IVF, monitor Na, regular diet # PPx - HSQ TID, PPI home med, no need PT as patient can ambulate # Dispo - Na+ correcting well. Will continue to monitor off fluids to assess true Na+. d/c w or Monday d/w Dr Pepe Keenan MD - Resident PGY1 Internal Medicine Visit type - Emergency Visit Emergency Visit: No - New Patient This patient is new to me today: No - Critical Care Critical Care patient: No - Discharge Referral Referred to [facility] Med [facility] No
--- NOTE | 2017-01-21 11:14 | PN ---
Teaching Attending Note Name of Resident: Sonny Keenan ATTENDING PHYSICIAN STATEMENT Time of evaluation: 8:55 AM I saw and evaluated the patient. I reviewed the resident's note and discussed the case with the resident. I agree with the resident's findings and plan as documented. SUBJECTIVE: Patient seen and examined. NO complaints. No further diarrhea or headache, tolerating diet well. OBJECTIVE: Vital Signs Period Temp Pulse Resp BP Sys/Christensen Pulse Ox Last 24 Hr 98.2 F-99.5 F 70-103 20-20 104-146/46-77 97 Intake & Output 01/18/17 01/19/17 01/20/17 01/21/17 23:59 23:59 23:59 23:59 Intake Total 730 526 4986 Balance 343 104 7097 Weight 170 lb General: sitting in bed in no acute distress CVS:S1S2 regular Chest: CTAB, no rales or wheezing abdomen: soft, obese, NT Extremities: no edema Home Medication List Medication Instructions Recorded Confirmed Type Dexlansoprazole [Dexilant] 60 mg PO DAILY 03/10/16 01/19/17 History Escitalopram Oxalate [Lexapro -] 10 mg PO DAILY 03/10/16 01/19/17 History Amitriptyline HCl [Elavil -] 25 mg PO BID 12/15/16 01/19/17 History Amlodipine Besylate 5 mg PO DAILY 12/15/16 01/19/17 History Divalproex [Depakote -] 250 mg PO BID 12/15/16 01/19/17 History Oxybutynin Chloride [Ditropan Xl] 15 mg PO DAILY 12/15/16 01/19/17 History Quetiapine Fumarate [Seroquel -] 25 mg PO DAILY 12/15/16 01/19/17 History Gabapentin 300 mg PO HS 01/19/17 01/19/17 History Linaclotide [Linzess] 72 mcg PO DAILY 01/19/17 01/19/17 History Lipase/Protease/Amylase [Creon Dr 1 each PO TID 01/19/17 01/19/17 History 36,000 Units Capsule] Metoclopramide HCl [Reglan] 5 mg PO TID 01/19/17 01/19/17 History Mirtazapine [Remeron -] 7.5 mg PO HS 01/19/17 01/19/17 History Ondansetron HCl [Zofran] 4 mg PO TID PRN 01/19/17 01/19/17 History Ranitidine [Zantac -] 300 mg PO HS 01/19/17 01/19/17 History Rifaximin [Xifaxan] 550 mg PO TID 01/19/17 01/19/17 History Sertraline HCl [Zoloft -] 50 mg PO HS 01/19/17 01/19/17 History Sumatriptan Succinate [Imitrex -] 50 mg PO DAILY 01/19/17 01/19/17 History Active Medications Generic Name Dose Route Start Last Admin Trade Name Freq PRN Reason Stop Dose Admin Amitriptyline HCl 25 mg 01/19/17 22:00 01/21/17 09:04 Elavil - PO 25 mg BID KATHERINE Administration Amlodipine Besylate 5 mg 01/20/17 10:00 01/21/17 09:04 Norvasc - PO 5 mg DAILY KATHERINE Administration Divalproex Sodium 250 mg 01/19/17 22:00 01/21/17 09:11 Depakote - PO 250 mg BID KATHERINE Administration Escitalopram Oxalate 10 mg 01/20/17 10:00 01/21/17 09:04 Lexapro - PO 10 mg DAILY KATHERINE Administration Gabapentin 300 mg 01/19/17 22:00 01/20/17 22:10 Neurontin - PO 300 mg HS KATHERINE Administration Heparin Sodium (Porcine) 5,000 unit 01/19/17 14:00 01/21/17 06:19 Heparin - SQ 5,000 unit TID KATHERINE Administration Mirtazapine 7.5 mg 01/19/17 22:00 01/20/17 22:10 Remeron - PO 7.5 mg HS KATHERINE Administration Non-Formulary Medication 72 mcg 01/20/17 10:00 Linaclotide [Linzess] PO DAILY KATHERINE Ondansetron HCl 4 mg 01/20/17 15:39 Zofran - PO Q8H PRN Pancrelipase 1 cap 01/19/17 17:30 01/21/17 09:11 Kamari Nazario 36,000 Units Capsule PO 1 cap TIDCM KATHERINE Administration Quetiapine Fumarate 25 mg 01/20/17 10:00 01/21/17 09:04 Seroquel - PO 25 mg DAILY KATHERINE Administration Ranitidine HCl 300 mg 01/19/17 22:00 01/20/17 22:10 Zantac - PO 300 mg HS KATHERINE Administration Rifaximin 550 mg 01/19/17 22:00 01/21/17 06:44 Xifaxan - PO Not Given TID KATHERINE Solifenacin 10 mg 01/20/17 10:00 01/21/17 09:03 Vesicare - PO 10 mg DAILY KATHERINE Administration Laboratory Results - last 24 hr 01/20/17 01/20/17 01/20/17 14:20 18:00 22:00 Sodium 132 L 127 L 131 L Potassium 4.6 4.5 4.3 Chloride 94 L 93 L 93 L Carbon Dioxide 28 27 29 Anion Gap 10 7 L 9 BUN 11 D 12 14 Creatinine 0.9 0.9 1.0 Random Glucose 89 D 100 100 Calcium 9.0 8.5 9.0 01/21/17 01/21/17 02:00 05:45 Sodium 135 L 137 Potassium 4.1 4.4 Chloride 97 L 101 Carbon Dioxide 29 28 Anion Gap 9 8 BUN 13 11 Creatinine 0.9 0.8 Random Glucose 128 H D 102 D Calcium 8.5 8.1 L Microbiology 01/19/17 18:30 Urine - Urine Clean Catch Urine Culture - Final NO GROWTH OBTAINED ASSESSMENT AND PLAN: 70 year-old female with a history of HTN, HLD, PUD, GERD, hiatal hernia, 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 D/c IVF, follow up repeat levels. Overall 19 points improvement in > 48 hours. Mental status stable. Suspect acute on chronic hyponatremia from diarrhea. Multiple psychiatric meds, which are likely contributing to her chronic hyponatremia. COnfirmed with pharmacy, zoloft recent in last 2 weeks, will hold for now. Given all other meds have been long standing will hold off on changing for now and defer to outpatient psychiatry to eventual taper them with serial na monitoring. GI input noted, recent outpatient colonoscopy reportedly normal. HOld dexilant for now. Continue ranitidine. Suspect rifaximin for bacterial overgrowth, continue for now. Unlikely infectious diarrhea. DVTPPX dispo d/c in 48 hours if Na levels stable and no new concerns pending nephrology input.
[2017-01-21 11:26] LABS: ANION GAP 6 (8-16); BLOOD UREA NITROGEN 11 mg/dL (7-18); CALCIUM 8.5 mg/dL (8.5-10.1); CHLORIDE 98 mmol/L (98-107); CO2 28 mmol/L (21-32); CREATININE 0.8 mg/dL (0.55-1.02); GLUCOSE,RANDOM 112 mg/dL (74-106); POTASSIUM 4.3 mmol/L (3.5-5.1); SODIUM 132 mmol/L (136-145)
[2017-01-21 14:26] VITALS: BP 123/74; PULSE 106; TEMP 98.3
--- NOTE | 2017-01-21 14:43 | PN ---
Progress Note (short form) - Note Progress Note: Impression 1. Hyponatremia 2. CVA 3. HTN 4. hyperlipdemia 5. arthritis 6. diarrhea 7. abdominal pain discussed with attending and housestaff Current Medications Amitriptyline HCl (Elavil -) 25 mg PO BID [facility] Last Admin: 01/21/17 09:04 Dose: 25 mg Amlodipine Besylate (Norvasc -) 5 mg PO DAILY [facility] Last Admin: 01/21/17 09:04 Dose: 5 mg Divalproex Sodium (Depakote -) 250 mg PO BID [facility] Last Admin: 01/21/17 09:11 Dose: 250 mg Escitalopram Oxalate (Lexapro -) 10 mg PO DAILY [facility] Last Admin: 01/21/17 09:04 Dose: 10 mg Gabapentin (Neurontin -) 300 mg PO HS [facility] Last Admin: 01/20/17 22:10 Dose: 300 mg Heparin Sodium (Porcine) (Heparin -) 5,000 unit SQ TID [facility] Last Admin: 01/21/17 13:03 Dose: 5,000 unit Mirtazapine (Remeron -) 7.5 mg PO HS [facility] Last Admin: 01/20/17 22:10 Dose: 7.5 mg Non-Formulary Medication (Linaclotide [Linzess]) 72 mcg PO DAILY [facility] Ondansetron HCl (Zofran -) 4 mg PO Q8H PRN Pancrelipase (Creon Dr 36,000 Units Capsule) 1 cap PO TIDCM [facility] Last Admin: 01/21/17 12:14 Dose: 1 cap Quetiapine Fumarate (Seroquel -) 25 mg PO DAILY [facility] Last Admin: 01/21/17 09:04 Dose: 25 mg Ranitidine HCl (Zantac -) 300 mg PO HS [facility] Last Admin: 01/20/17 22:10 Dose: 300 mg Rifaximin (Xifaxan -) 550 mg PO TID [facility] Last Admin: 01/21/17 13:03 Dose: 550 mg Solifenacin (Vesicare -) 10 mg PO DAILY [facility] Last Admin: 01/21/17 09:03 Dose: 10 mg Last Vital Signs Temp Pulse Resp BP Pulse Ox 98.3 F 106 H 20 123/74 97 01/21/17 14:00 01/21/17 14:00 01/21/17 14:00 01/21/17 14:00 01/20/17 21:00 CBC, BMP 01/20/17 05:05 IMP- hyponatremia 2/2 dietary habits, medications and coincident diarrhea some of her psych meds need to be reviewed i agree marvin villarreal agree with d/c plans she will need follow up of bmp in a week or two 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
[2017-01-21 14:51] LABS: ANION GAP 10 (8-16); BLOOD UREA NITROGEN 13 mg/dL (7-18); CALCIUM 8.4 mg/dL (8.5-10.1); CHLORIDE 97 mmol/L (98-107); CO2 25 mmol/L (21-32); CREATININE 0.8 mg/dL (0.55-1.02); GLUCOSE,RANDOM 121 mg/dL (74-106); POTASSIUM 4.4 mmol/L (3.5-5.1); SODIUM 132 mmol/L (136-145)
--- NOTE | 2017-01-21 15:26 | DS ---
Physical Exam: SUBJECTIVE: Patient seen and examined. Doing well. Asymptomatic. OBJECTIVE: Vital Signs Period Temp Pulse Resp BP Sys/Christensen Pulse Ox Last 24 Hr 98.2 F-99.5 F 70-106 20-20 104-146/46-77 97 PHYSICAL EXAM GEN: AAOx3, NAD, ambulating in the room, finished eating breakfast HEENT: PERRLA, EOMi CV: S1, S2, RRR LUNG: CTABL, no rales, crackles, wheezing ABD: Soft, NT, ND, normoactive BS MSK: No edema, no erythema NEURO: CN 2-12 grossly intact, 5/5 strength in all quadrants LABS Laboratory Last Values WBC 4.9 K/mm3 (4.0-10.0) 01/20/17 05:05 RBC 4.17 M/mm3 (3.60-5.2) 01/20/17 05:05 Hgb 12.1 GM/dL (10.7-15.3) 01/20/17 05:05 Hct 36.8 % (32.4-45.2) 01/20/17 05:05 MCV 88.3 fl (80-96) 01/20/17 05:05 MCH 29.1 pg (25.7-33.7) 01/20/17 05:05 MCHC 33.0 g/dl (32.0-36.0) 01/20/17 05:05 RDW 15.7 % (11.6-15.6) H 01/20/17 05:05 Plt Count 248 K/MM3 (134-434) 01/20/17 05:05 MPV 7.6 fl (7.5-11.1) 01/20/17 05:05 Neutrophils % 61.5 % (42.8-82.8) 01/19/17 05:30 Lymphocytes % 24.6 % (8-40) D 01/19/17 05:30 Monocytes % 11.6 % (3.8-10.2) H 01/19/17 05:30 Eosinophils % 1.9 % (0-4.5) D 01/19/17 05:30 Basophils % 0.4 % (0-2.0) 01/19/17 05:30 PT with INR 11.40 SEC (9.98-11.88) 01/19/17 11:43 INR 1.01 (0.82-1.09) 01/19/17 11:43 PTT (Actin FS) 30.5 SECONDS (26.9-34.4) 01/19/17 11:43 Sodium 132 mmol/L (136-145) L 01/21/17 14:00 Potassium 4.4 mmol/L (3.5-5.1) 01/21/17 14:00 Chloride 97 mmol/L (98-107) L 01/21/17 14:00 Carbon Dioxide 25 mmol/L (21-32) 01/21/17 14:00 Anion Gap 10 (8-16) 01/21/17 14:00 BUN 13 mg/dL (7-18) 01/21/17 14:00 Creatinine 0.8 mg/dL (0.55-1.02) 01/21/17 14:00 Creat Clearance w eGFR > 60 (>60) 01/19/17 05:30 Random Glucose 121 mg/dL (74-106) H 01/21/17 14:00 Serum Osmolality 254 mosm/kg (278-305) L 01/19/17 11:07 Calcium 8.4 mg/dL (8.5-10.1) L 01/21/17 14:00 Phosphorus 3.3 mg/dL (2.5-4.9) 01/20/17 05:05 Magnesium 2.3 mg/dL (1.8-2.4) 01/20/17 05:05 Total Bilirubin 0.6 mg/dL (0.2-1.0) 01/19/17 05:30 AST 70 U/L (15-37) H 01/19/17 05:30 ALT 62 U/L (12-78) 01/19/17 05:30 Alkaline Phosphatase 169 U/L (45-117) H 01/19/17 05:30 Creatine Kinase 135 IU/L (26-192) 01/19/17 05:30 Troponin I < 0.02 ng/ml (0.00-0.05) 01/19/17 05:30 Total Protein 7.1 g/dl (6.4-8.2) 01/19/17 05:30 Albumin 3.4 g/dl (3.4-5.0) 01/19/17 05:30 Triglycerides 120 mg/dL (35-160) D 01/19/17 11:07 Cholesterol 194 mg/dL (50-200) 01/19/17 11:07 Total LDL Cholesterol 97 mg/dL (5-100) 01/19/17 11:07 HDL Cholesterol 74 mg/dL (40-60) H 01/19/17 11:07 Total Amylase 27 U/L (25-115) D 01/19/17 11:07 Lipase 83 U/L (73-393) 01/19/17 11:07 TSH 0.49 uIU/ml (0.358-3.74) D 01/19/17 11:07 Free T4 1.31 ng/dl (0.76-1.46) 01/19/17 11:07 Free T3 2.9 pg/ml (2.0-4.4) 01/19/17 11:07 Cortisol AM Sample 13.8 ug/dL (.) 01/19/17 11:07 Urine Color Yellow 01/19/17 11:25 Urine Appearance Slcloudy 01/19/17 11:25 Urine pH 6.0 (5.0-8.0) 01/19/17 11:25 Ur Specific Alpine 1.014 (1.001-1.035) 01/19/17 11:25 Urine Protein Negative (NEGATIVE) 01/19/17 11:25 Urine Glucose (UA) Negative (NEGATIVE) 01/19/17 11:25 Urine Ketones Trace (NEGATIVE) H 01/19/17 11:25 Urine Blood 2+ (NEGATIVE) H 01/19/17 11:25 Urine Nitrite Positive (NEGATIVE) 01/19/17 11:25 Urine Bilirubin Negative (NEGATIVE) 01/19/17 11:25 Urine Urobilinogen Negative mg/dL (0.2-1.0) 01/19/17 11:25 Ur Leukocyte Esterase Negative (NEGATIVE) 01/19/17 11:25 Urine WBC (Auto) 6 /hpf (3-5) 01/19/17 11:25 Urine RBC (Auto) 7 /hpf (0-3) 01/19/17 11:25 Urine Bacteria Moderate /hpf (NONE SEEN) 01/19/17 11:25 Urine Mucus Rare 01/19/17 11:25 Urine Osmolality 326 mosm/kg (300-900) D 01/19/17 11:25 Ur Random Sodium 48 MMOL/L 01/19/17 11:25 Ur Random Potassium 26.0 MMOL/L 01/19/17 11:25 Ur Random Chloride 51 MMOL/L 01/19/17 11:25 HOSPITAL COURSE: Date of Admission:01/19/17 Date of Discharge: 01/21/17 Briefly, Ms. Sumner is a 71yo female with a PMHx of CVA (2009), HTN, HLD, Cataracts w/ corrective surgery, Seizures s/p Brain surgery left meningioma ( 1999), Chronic anemia, anxiety, GERD/PUD and chronic hyponatremia. She initially presented with nonbloody watery diarrhea with mild abdominal pain and decreased PO intake. In the ER she was found to have a Na+ of 118, without neurological changes. Her sodium was slowly corrected and normalized with Nephrology (Dr Martinez) on board. Her hyponatremia was likely contributed by hypovolemia from diarrhea. The patient also has chronic hyponatremia likely related to her multiple psychiatric meds. She was recently started on Zoloft, which we will discontinue. For her diarrhea, infectious etiology was unlikely since the patient never had a white count or fever. A CT abd/pelvis revealed no acute abdominal pathology. The patient also complained of chronic epigastric pain, for which she has had an extensive workup by Dr Grubbs including EGD, Colonoscopy, CT scans, without findings. The sodium remained stable off fluids, and the patient was discharged home. She was given a script for a BMP in 3-4 days, for the results to be faxed to Dr. Martinez's office. She will followup with Dr Martinez in 1 week. The patient is aware of the hospital course and agrees with the plan to be discharged home. Minutes to complete discharge: 45 Discharge Summary Reason For Visit: HYPONATREMIA Current Active Problems Diarrhea (Acute) Hyponatremia (Acute) UTI (urinary tract infection) (Acute) Weakness (Acute) Condition: Improved - Instructions Diet, Activity, Other Instructions: MEDICAL RECOMMENDATIONS - You were admitted because the level of sodium in your blood was too low. We corrected it slowly - In order to monitor your sodium, you will need a blood draw in the next 3-4 days. We gave you a script - Please limit your intake of free water - We are avoiding changing your other medications, other than zoloft as you have been on it for long time but You will need to talk to your psychiatrist about tapering your medications, they may cause your sodium to be low -Your medication zoloft that was recently started is being held on discharge, please follow up with your psychiatrist to address medications. Avoid driving, operating heavy machinery or taking important decisions alone as you are on multiple medications that make you dizzy or drowsy. If you have any recurrent diarrhea, unable to eat or drink, nausea, vomiting or unable to eat, advise to call 911 or come to ED right away as you are at a higher risk of having concerning low sodium levels. Follow up with your lingo cleaner in 1-2 weeks. MEDICATION CHANGES: - STOP Zoloft -OTHER THAN ZOLOFT, CONTINUE ALL YOUR HOME MEDICATIONS BEFORE. FOLLOWUPS: - Basic Metabolic Panel in 3-4 days - Dr. Mabry (Primary Care Doctor) - followup in 2 weeks - Dr. Martinez (Change Coordinator) - followup in 1 week -Your psychiatrist in 1 week -Dr. Grubbs in 1-2 weeks. - Followup with your psychiatrist about tapering off of the medications Referrals: Waldo Mabry MD [Primary Care Provider] - 2 Weeks Justyn Grubbs MD [Staff Physician] - 3 Weeks Heike Martinez MD [Staff Physician] - 1 Week Disposition: HOME HEALTH CARE - Home Medications Comprehensive Discharge Medication List: Ambulatory Orders Dexlansoprazole [Dexilant] 60 mg PO DAILY 03/10/16 Escitalopram Oxalate [Lexapro -] 10 mg PO DAILY 03/10/16 Amitriptyline HCl [Elavil -] 25 mg PO BID 12/15/16 Amlodipine Besylate 5 mg PO DAILY 12/15/16 Divalproex [Depakote -] 250 mg PO BID 12/15/16 Oxybutynin Chloride [Ditropan Xl] 15 mg PO DAILY 12/15/16 Quetiapine Fumarate [Seroquel -] 25 mg PO DAILY 12/15/16 Gabapentin 300 mg PO HS 01/19/17 Linaclotide [Linzess] 72 mcg PO DAILY 01/19/17 Lipase/Protease/Amylase [Kamari Nazario 36,000 Units Capsule] 1 each PO TID 01/19/17 Mirtazapine [Remeron -] 7.5 mg PO HS 01/19/17 Ranitidine [Zantac -] 300 mg PO HS 01/19/17 Rifaximin [Xifaxan -] 550 mg PO TID 01/19/17 Sumatriptan Succinate [Imitrex -] 50 mg PO DAILY 01/19/17 Miscellaneous Drug Not In Syst [Outpatient Lab Test] 1 each [place]1 [facility] This patient is new to me today: No Emergency Visit: No Critical Care patient: No - Discharge Referral Referred to [facility] No
== END 2017-01-21 16:07 | disposition home or self-care (01) | DRG 641 ==
LOC: JER 03:19 → JERBED 10:09 → J4W 17:05
PROVIDERS: ADMIT Hospitalist; ATTEND Hospitalist
DX: E87.1 Hypo-osmolality and hyponatremia (principal); N39.0 Urinary tract infection, site not specified; I50.32 Chronic diastolic (congestive) heart failure; E78.5 Hyperlipidemia, unspecified; K21.9 Gastro-esophageal reflux disease without esophagitis; D64.9 Anemia, unspecified; F41.8 Other specified anxiety disorders; K27.9 Peptic ulcer, site unspecified, unspecified as acute or chronic, without hemorrhage or perforation; R26.89 Other abnormalities of gait and mobility; E87.8 Other disorders of electrolyte and fluid balance, not elsewhere classified; N39.498 Other specified urinary incontinence; I11.0 Hypertensive heart disease with heart failure; G44.89 Other headache syndrome; A08.8 Other specified intestinal infections; R10.9 Unspecified abdominal pain; K44.9 Diaphragmatic hernia without obstruction or gangrene; D32.0 Benign neoplasm of cerebral meninges; E86.1 Hypovolemia; Z86.73 Personal history of transient ischemic attack (TIA), and cerebral infarction without residual deficits; Z96.651 Presence of right artificial knee joint
CPT/HCPCS: 36415; 70450-TC; 71020-TC; 74176-TC; 80048; 80053; 80061; 81003; 81015; 82150; 82436; 82533; 82550; 83690; 83721; 83735; 83930; 83935; 84100; 84133; 84300; 84439; 84443; 84481; 84484; 85025; 85027; 85610; 85730; 87086; 90688; 93005; 93010; 93306-TC; 99285-25; G0008; J1644; Q9967

== ENCOUNTER 2017-02-03 15:19 | Inpatient (IN) | payer OTHER ==
--- NOTE | 2017-02-03 15:26 | PDOC ---
Rapid Medical Evaluation Time Seen by Provider: 02/03/17 15:26 Medical Evaluation: Allergies Allergy/AdvReac Type Severity Reaction Status Date / Time aspirin Allergy Severe "NERVOUS" Verified 01/19/17 05:01 morphine Allergy Severe "ANXIETY-DE Verified 01/19/17 05:01 SPERATION" 02/03/17 15:26 I have performed a brief in-person evaluation of this patient. The patient presents with a chief complaint of: left sided chest pain and Headache Pertinent physical exam findings: PULM: diminished in left base CARDS: RRR. S1S2. No m/r/g. I have ordered the following: EKG, CXR, cardiac profile, cbc, cmp, ua The patient will proceed to the ED for further evaluation. 02/03/17 15:27 Discharge Disposition - Diagnosis Chest pain - Referrals - Patient Instructions - Post Discharge Activity
[2017-02-03 17:18] LABS: BASO % 0.5 % (0-2.0); EOS # 0.1 # (0-4.5); EOS % 1.9 % (0-4.5); LYMPH # 1.3 (8-40); MCH 28.7 pg (25.7-33.7); MCHC 33.1 g/dl (32.0-36.0); MEAN CELL VOLUME 86.7 fl (80-96); MEAN PLT VOLUME 6.8 fl (7.5-11.1); MONO # 0.6 # (3.8-10.2); NEUT # 4.4 # (42.8-82.8); NEUT % 68.3 % (42.8-82.8); PLATELET COUNT 362 K/MM3 (134-434); RDW 15.3 % (11.6-15.6); WHITE BLOOD COUNT 6.4 K/mm3 (4.0-10.0)
[2017-02-03 17:29] LABS: PROTHROMBIN TIME (PATIENT) 11.3 SEC (9.98-11.88)
[2017-02-03 17:53] LABS: ALBUMIN 3.4 g/dl (3.4-5.0); ANION GAP 7 (8-16); BILIRUBIN,TOTAL 0.5 mg/dL (0.2-1.0); CALCIUM 8.6 mg/dL (8.5-10.1); CO2 28 mmol/L (21-32); CREATININE 0.7 mg/dL (0.55-1.02); GLUCOSE,RANDOM 91 mg/dL (74-106); MAGNESIUM 2.2 mg/dL (1.8-2.4); SGOT/AST 49 U/L (15-37); SGPT/ALT 64 U/L (12-78); TOT PROT 7.4 g/dl (6.4-8.2)
[2017-02-03 17:55] LABS: ALK PHOS 198 U/L (45-117); CPK 73 IU/L (26-192); TROPONIN I < 0.02 ng/ml (0.00-0.05)
--- NOTE | 2017-02-03 18:11 | PDOC ---
History of Present Illness - General Chief Complaint: Chest Pain Stated Complaint: PAIN/ CHEST, HEADACHE Time Seen by Provider: 02/03/17 15:26 - History of Present Illness Initial Comments: 02/03/17 18:05 "The patient is a 71 year old female with a significant PMH of hyperlipidemia, hypertension, PUD, seizures, anxiety, and GERD who presents to the emergency department with a headache and chest pain. The patient states the chest pain started at 3PM yesterday and describes the chest pain as localized on the left, constant, and non-radiating. The pain is not exertional, not pleuritic. The patient states that she has had the same pain several times in the past, and she attributes it to anxiety. She is requesting medication for anxiety. Pt also endorses mild frontal headache that she states she has had several times before as well. Denies F/C. Denies neck pain. denies weakness/numbness/tingling. The patient denies shortness of breath. Denies palpitations. Denies nausea, vomit, diarrhea and constipation. Denies dysuria, frequency, urgency and hematuria. Allergies: NKA Past surgical history: Social history: No reported PCP: Dr Kinney GI: Dr. Grubbs" Past History - Past Medical History Allergies/Adverse Reactions: Allergies Allergy/AdvReac Type Severity Reaction Status Date / Time aspirin Allergy Severe "NERVOUS" Verified 02/03/17 15:30 morphine Allergy Severe "ANXIETY-DE Verified 02/03/17 15:30 SPERATION" Home Medications: Ambulatory Orders Dexlansoprazole [Dexilant] 60 mg PO DAILY 03/10/16 Escitalopram Oxalate [Lexapro -] 10 mg PO DAILY 03/10/16 Amitriptyline HCl [Elavil -] 25 mg PO BID 12/15/16 Amlodipine Besylate 5 mg PO DAILY 12/15/16 Divalproex [Depakote -] 250 mg PO BID 12/15/16 Oxybutynin Chloride [Ditropan Xl] 15 mg PO DAILY 12/15/16 Quetiapine Fumarate [Seroquel -] 25 mg PO DAILY 12/15/16 Gabapentin 300 mg PO HS 01/19/17 Linaclotide [Linzess] 72 mcg PO DAILY 01/19/17 Lipase/Protease/Amylase [Kamari Nazario 36,000 Units Capsule] 1 each PO TID 01/19/17 Mirtazapine [Remeron -] 7.5 mg PO HS 01/19/17 Ranitidine [Zantac -] 300 mg PO HS 01/19/17 Rifaximin [Xifaxan -] 550 mg PO TID 01/19/17 Sumatriptan Succinate [Imitrex -] 50 mg PO DAILY 01/19/17 Miscellaneous Drug Not In Syst [Outpatient Lab Test] 1 each ASDIR #1 misc 10/30 Anemia: No Asthma: No Cancer: No Cardiac Disorders: No 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, baseline confusion and dizziness) COPD: No CHF: No Dementia: No Diabetes: No GI Disorders: Yes (gerd, gastric ulcer, dysphagia) Disorders: Yes (kidney stone in the past) HTN: Yes Hypercholesterolemia: Yes Liver Disease: No Psychiatric Problems: Yes (ANXIETY DEPRESSION) Seizures: Yes (S/P craniotomy for benign tumor - on Depakote for seizure prophylaxis) Thyroid Disease: No - Surgical History Abdominal Surgery: Yes Appendectomy: No Cardiac Surgery: No Cholecystectomy: Yes Lung Surgery: No Neurologic Surgery: Yes Orthopedic Surgery: (Bilateral knee replacement) - Immunization History Td Vaccination: Yes TDAP Vaccination: No Immunization Up to Date: No - Suicide/Smoking/Psychosocial Hx Smoking Status: No Smoking History: Never smoked Have you smoked in the past 12 months: No Number of Cigarettes Smoked Daily: 0 Cigars Per Day: 0 Information on smoking cessation initiated: No Hx Alcohol Use: No Drug/Substance Use Hx: No Substance Use Type: None Hx Substance Use Treatment: No Cardiac Specific PMH - Complaint Specific PMHX Pacemaker: No Review of Systems - Review of Systems Comments:: 02/03/17 18:11 "GENERAL/CONSTITUTIONAL: No fever or chills. No weakness. HEAD, EYES, EARS, NOSE AND THROAT: No change in vision. No ear pain or discharge. No sore throat. CARDIOVASCULAR: (+)Chest pain. No shortness of breath. RESPIRATORY: No cough, wheezing, or hemoptysis. GASTROINTESTINAL: No nausea, vomiting, diarrhea or constipation. GENITOURINARY: No dysuria, frequency, or change in urination. MUSCULOSKELETAL: No joint or muscle swelling or pain. No neck or back pain. SKIN: No rash NEUROLOGIC: (+) Headache. No vertigo, loss of consciousness, or change in strength/sensation. ENDOCRINE: No increased thirst. No abnormal weight change. HEMATOLOGIC/LYMPHATIC: No anemia, easy bleeding, or history of blood clots. ALLERGIC/IMMUNOLOGIC: No hives or skin allergy." *Physical Exam - Vital Signs Last Vital Signs Temp Pulse Resp BP Pulse Ox 98.4 F 86 22 117/71 100 02/03/17 15:27 02/03/17 15:27 02/03/17 15:27 02/03/17 15:27 02/03/17 15:27 - Physical Exam Comments: 02/03/17 18:11 "GENERAL: Awake, alert, and fully oriented, in no acute distress HEAD: No signs of trauma EYES: PERRLA, EOMI, sclera anicteric, conjunctiva clear ENT: Auricles normal inspection, hearing grossly normal, nares patent, oropharynx clear without exudates. Moist mucosa NECK: Nontender, no stepoffs, Normal ROM, supple, no lymphadenopathy, JVD, or masses LUNGS: Breath sounds equal, clear to auscultation bilaterally. No wheezes, and no crackles HEART: Regular rate and rhythm, normal S1 and S2, no murmurs, rubs or gallops ABDOMEN: Soft, nontender, normoactive bowel sounds. No guarding, no rebound. No masses EXTREMITIES: Normal range of motion, no edema. No clubbing or cyanosis. No cords, erythema, or tenderness NEUROLOGICAL: Cranial nerves II through XII intact. 5/5 strength and sensation in all extremities, Normal speech, normal gait SKIN: Warm, Dry, normal turgor, no rashes or lesions noted." Heart Score/ECG Review - History History: Slightly suspicious - Electrocardiogram EKG: Normal - Age Age: >/= 65 - Risk Factors Risk Factors Heart Score: Yes Hx Hypercholesterolemia, Yes Hx Hypertension, Yes Hx Diabetes Based on the list above the patient has:: >/=3 risk factors or Hx atherosclerotic disease - Troponin Troponin: </= normal limit - Score Heart Score - Total: 4 - ECG Impressions Comment:: 02/03/17 18:11 NSR, no MACHELLE/STDs, no TWIs, axis wnl, intervals wnl ED Treatment Course - LABORATORY CBC & Chemistry Diagram: 02/03/17 17:00 02/03/17 17:00 - ADDITIONAL ORDERS Additional order review: Laboratory Results 02/03/17 02/03/17 02/03/17 17:00 17:00 17:00 PT with INR 11.30 INR 1.00 Sodium 126 L Potassium 4.3 Chloride 91 L Carbon Dioxide 28 Anion Gap 7 L BUN 9 D Creatinine 0.7 Creat Clearance w eGFR > 60 Random Glucose 91 D Calcium 8.6 Magnesium 2.2 Total Bilirubin 0.5 AST 49 H D ALT 64 Alkaline Phosphatase 198 H Creatine Kinase 73 Troponin I < 0.02 B-Natriuretic Peptide 684.51 H Total Protein 7.4 Albumin 3.4 02/03/17 17:00 RBC 4.27 MCV 86.7 MCHC 33.1 RDW 15.3 MPV 6.8 L D Neutrophils % 68.3 Lymphocytes % 19.9 Monocytes % 9.4 Eosinophils % 1.9 Basophils % 0.5 - RADIOLOGY Radiology Studies Ordered: Category Date Time Status HEAD CT WITHOUT CONTRAST [CT] Stat CT Scan 02/03/17 18:45 Completed Medical Decision Making - Medical Decision Making 02/03/17 18:11 71 F with chest pain and headache, similar in character and severity to several prior episodes of the same. Pt has had multiple ER visits for same, all with negative work ups. Pt denies any new or different symptoms. Chest pain is very atypical in nature and very unlikely to be ACS, especially in the context of a normal EKG. Pt's headache is mild with no red flags for SAH/meningitis/venous thrombosis. - Labs - CXR - Reassess 02/03/17 19:04 CBC,CMP WBC 6.4 K/mm3 (4.0-10.0) D 02/03/17 17:00 RBC 4.27 M/mm3 (3.60-5.2) 02/03/17 17:00 Hgb 12.2 GM/dL (10.7-15.3) 02/03/17 17:00 Hct 37.0 % (32.4-45.2) 02/03/17 17:00 MCV 86.7 fl (80-96) 02/03/17 17:00 MCH 28.7 pg (25.7-33.7) 02/03/17 17:00 MCHC 33.1 g/dl (32.0-36.0) 02/03/17 17:00 RDW 15.3 % (11.6-15.6) 02/03/17 17:00 Plt Count 362 K/MM3 (134-434) D 02/03/17 17:00 MPV 6.8 fl (7.5-11.1) L D 02/03/17 17:00 Neutrophils % 68.3 % (42.8-82.8) 02/03/17 17:00 Lymphocytes % 19.9 % (8-40) 02/03/17 17:00 Monocytes % 9.4 % (3.8-10.2) 02/03/17 17:00 Eosinophils % 1.9 % (0-4.5) 02/03/17 17:00 Basophils % 0.5 % (0-2.0) 02/03/17 17:00 Sodium 126 mmol/L (136-145) L 02/03/17 17:00 Potassium 4.3 mmol/L (3.5-5.1) 02/03/17 17:00 Chloride 91 mmol/L (98-107) L 02/03/17 17:00 Carbon Dioxide 28 mmol/L (21-32) 02/03/17 17:00 Anion Gap 7 (8-16) L 02/03/17 17:00 BUN 9 mg/dL (7-18) D 02/03/17 17:00 Creatinine 0.7 mg/dL (0.55-1.02) 02/03/17 17:00 Creat Clearance w eGFR > 60 (>60) 02/03/17 17:00 Random Glucose 91 mg/dL (74-106) D 02/03/17 17:00 Calcium 8.6 mg/dL (8.5-10.1) 02/03/17 17:00 Magnesium 2.2 mg/dL (1.8-2.4) 02/03/17 17:00 Total Bilirubin 0.5 mg/dL (0.2-1.0) 02/03/17 17:00 AST 49 U/L (15-37) H D 02/03/17 17:00 ALT 64 U/L (12-78) 02/03/17 17:00 Alkaline Phosphatase 198 U/L (45-117) H 02/03/17 17:00 Creatine Kinase 73 IU/L (26-192) 02/03/17 17:00 Troponin I < 0.02 ng/ml (0.00-0.05) 02/03/17 17:00 B-Natriuretic Peptide 684.51 pg/ml (5-125) H 02/03/17 17:00 Total Protein 7.4 g/dl (6.4-8.2) 02/03/17 17:00 Albumin 3.4 g/dl (3.4-5.0) 02/03/17 17:00 Labs notable for HypoNa 126, down from 132 on 01/21. Pt with mild headache, no other neuro deficits. CT head negative. Will hold on hypertonics for now. Will admit to hospitalist. *DC/Admit/Observation/Transfer Diagnosis at time of Disposition: Chest pain, Hyponatremia - Discharge Dispostion Admit: Yes - Referrals - Patient Instructions - Post Discharge Activity - Attestations Physician Attestion: 02/03/17 19:46 I, Dr. Dano Sinha MD, attest that this document has been prepared under my direction and personally reviewed by me in its entirety. I further attest, that it accurately reflects all work, treatment, procedures and medical decision -making performed by me.
[2017-02-03] MEDS ORDERED: SODIUM CHLORIDE 500 ML IV STA (19:06)
--- NOTE | 2017-02-03 20:39 | PN ---
Teaching Attending Note Name of Resident: Ted Cruz ATTENDING PHYSICIAN STATEMENT I saw and evaluated the patient. I reviewed the resident's note and discussed the case with the resident. I agree with the resident's findings and plan as documented. SUBJECTIVE: 71 y/o female patient with pmh of controlled hypertension and brain tumor resected 10 years ago, presented to the ER complaining of chest pain, that started 1 day ago, the pain is reproducible, not associated with walking. patient stated that her ET was decreased from 5 blocks to 2 blocks due to pain in her legs. patient was found to have hyponatremia. patient is being admitted for hyponatremia. she stated that she had this before and she felt weak and that is when she realizes that its low OBJECTIVE: AAOX3 s1 and S2 RRR lungs CTA ASSESSMENT AND PLAN: 71 y/o female admitted for hyponatremia causes of hyponatremia - hypnatremia withy low serum osm, hyponatreamia with normal to high serum oms obtain Serum osm obtain urine analysis and urine osm obtain urine lytes obtain TSH based on the patient osm will consider either fluid restriction for the normalization or give the patient normal saline obtain an echocardiogram hold her home medication
--- NOTE | 2017-02-03 20:40 | HP ---
CHIEF COMPLAINT: head ache PCP: Waldo Mabry MD HISTORY OF PRESENT ILLNESS: 71yo female with a PMHx of CVA (2009), HTN, HLD, Cataracts w/ corrective surgery , Seizures s/p Brain surgery left meningioma (1999), Chronic anemia, anxiety, GERD/PUD and chronic hyponatremia presents with head ache and chest pain. Chest pain is 6/10 constant pressure like substernal nonradiating that lasted for 1 day. Not associated with diaphoresis or dysnea on exertion. Her headache is bilateral frontal in nature with no photo or phono phobia. He was recently hospitalized for hyponatremia and discharged on 01/21/17. No seizures or confusion. Denies fever, chills, nausea, vomiting , recent illness or sick contacts. ER course was notable for: (1)hyponatremia 129 (2)CT head showed no acute pathology and no interval change from previous on 01/19/17 (3)CXR showed no acute pathology Recent Travel:none PAST MEDICAL HISTORY:CVA (2009), HTN, HLD,Seizures,Chronic anemia, anxiety, GERD /PUD and chronic hyponatremia PAST SURGICAL HISTORY:Cataracts w/ corrective surgery,Cataracts w/ corrective surgery,left TKR (10/2015) Social History:Lives alone and has home health aid Smoking:denies Alcohol:denies Drugs: denies Family History: Allergies aspirin Allergy (Severe, Verified 02/03/17 15:30) "NERVOUS" morphine Allergy (Severe, Verified 02/03/17 15:30) "ANXIETY-DESPERATION" HOME MEDICATIONS: Home Medications Medication Instructions Recorded Dexlansoprazole [Dexilant] 60 mg PO DAILY 03/10/16 Escitalopram Oxalate [Lexapro -] 10 mg PO DAILY 03/10/16 Amitriptyline HCl [Elavil -] 25 mg PO BID 12/15/16 Amlodipine Besylate 5 mg PO DAILY 12/15/16 Divalproex [Depakote -] 250 mg PO BID 12/15/16 Oxybutynin Chloride [Ditropan Xl] 15 mg PO DAILY 12/15/16 Quetiapine Fumarate [Seroquel -] 25 mg PO DAILY 12/15/16 Gabapentin 300 mg PO HS 01/19/17 Linaclotide [Linzess] 72 mcg PO DAILY 01/19/17 Lipase/Protease/Amylase [Creon Dr 1 each PO TID 01/19/17 36,000 Units Capsule] Mirtazapine [Remeron -] 7.5 mg PO HS 01/19/17 Ranitidine [Zantac -] 300 mg PO HS 01/19/17 Rifaximin [Xifaxan -] 550 mg PO TID 01/19/17 Sumatriptan Succinate [Imitrex -] 50 mg PO DAILY 01/19/17 Miscellaneous Drug Not In Syst 1 each ASDIR #1 mis 01/21/17 [Outpatient Lab Test] REVIEW OF SYSTEMS CONSTITUTIONAL: Absent: fever, chills, diaphoresis, generalized weakness, malaise, loss of appetite, weight change HEENT: Absent: rhinorrhea, nasal congestion, throat pain, throat swelling, difficulty swallowing, mouth swelling, ear pain, eye pain, visual changes CARDIOVASCULAR: chest pain Absent: , syncope, palpitations, irregular heart rate, lightheadedness, peripheral edema RESPIRATORY: Absent: cough, shortness of breath, dyspnea with exertion, orthopnea, wheezing, stridor, hemoptysis GASTROINTESTINAL: Absent: abdominal pain, abdominal distension, nausea, vomiting, diarrhea, constipation, melena, hematochezia GENITOURINARY: Absent: dysuria, frequency, urgency, hesitancy, hematuria, flank pain, genital pain MUSCULOSKELETAL: Absent: myalgia, arthralgia, joint swelling, back pain, neck pain SKIN: Absent: rash, itching, pallor HEMATOLOGIC/IMMUNOLOGIC: Absent: easy bleeding, easy bruising, lymphadenopathy, frequent infections ENDOCRINE: Absent: unexplained weight gain, unexplained weight loss, heat intolerance, cold intolerance NEUROLOGIC: headache, Chronic unsteady gait Absent:, focal weakness or paresthesias, dizziness, , seizure, mental status changes, bladder or bowel incontinence PSYCHIATRIC: Absent: anxiety, depression, suicidal or homicidal ideation, hallucinations. PHYSICAL EXAMINATION Vital Signs - 24 hr 02/03/17 15:27 Temperature 98.4 F Pulse Rate 86 Respiratory 22 Rate Blood Pressure 117/71 O2 Sat by Pulse 100 Oximetry (%) GENERAL: AAOx3,NAD HEAD: NC/AT, surgical scar EYES: PERRLA, EOMI EARS, NOSE, THROAT: MMM NECK: supple, No jvd LUNGS: CTAB, No wheeze , rales or rhonchi HEART: RRR, [id number] normal , no m/g/r ABDOMEN: soft, nt, nd, bs normal LOWER EXTREMITIES: 2+ pulses, warm, well-perfused. No calf tenderness. No peripheral edema. NEUROLOGICAL: Cranial nerves II-XII intact. Normal speech. gait not observed. PSYCHIATRIC: Cooperative. Good eye contact. Appropriate mood and affect. SKIN: bilateral chronic venous stasis dermatitis lower ext. Laboratory Results - last 24 hr 02/03/17 02/03/17 02/03/17 17:00 17:00 17:00 WBC 6.4 D RBC 4.27 Hgb 12.2 Hct 37.0 MCV 86.7 MCH 28.7 MCHC 33.1 RDW 15.3 Plt Count 362 D MPV 6.8 L D Neutrophils % 68.3 Lymphocytes % 19.9 Monocytes % 9.4 Eosinophils % 1.9 Basophils % 0.5 PT with INR 11.30 INR 1.00 Sodium 126 L Potassium 4.3 Chloride 91 L Carbon Dioxide 28 Anion Gap 7 L BUN 9 D Creatinine 0.7 Creat Clearance w eGFR > 60 Random Glucose 91 D Calcium 8.6 Magnesium 2.2 Total Bilirubin 0.5 AST 49 H D ALT 64 Alkaline Phosphatase 198 H Creatine Kinase 73 Troponin I < 0.02 B-Natriuretic Peptide Total Protein 7.4 Albumin 3.4 02/03/17 17:00 WBC RBC Hgb Hct MCV MCH MCHC RDW Plt Count MPV Neutrophils % Lymphocytes % Monocytes % Eosinophils % Basophils % PT with INR INR Sodium Potassium Chloride Carbon Dioxide Anion Gap BUN Creatinine Creat Clearance w eGFR Random Glucose Calcium Magnesium Total Bilirubin AST ALT Alkaline Phosphatase Creatine Kinase Troponin I B-Natriuretic Peptide 684.51 H Total Protein Albumin ASSESSMENT/PLAN: 71 yo F with PMHx of CVA (2009), HTN, HLD, and siezure disorder admitted to med /surg for management of hyponatremia. Problem List - Problem (1) Hyponatremia Assessment/Plan: She is known to have chronic hyponatremia. 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 * Will water restrict for now. * Serum Osm and urine lytels pending. * Renal US and Echo done on last admission. * Will repeat BMP in AM (2) Chest pain Assessment/Plan: Atypical chest pain, No EKG changes. * Most likely chronic epigastric pain from GERD. * Low suspicion for ACS. * Will send for trops. * Repeat EKG in AM (3) Diabetes Assessment/Plan: HgbA1C in 06/2016 6.1 not on hypoglycemic meds. * ADA diet. * BGM ACHS * ISS ACHS (4) Anxiety Assessment/Plan: * Escitalopram Oxalate (Lexapro -) 10 mg PO DAILY KATHERINE Code(s): F41.9 - ANXIETY DISORDER, UNSPECIFIED (5) GERD (gastroesophageal reflux disease) Assessment/Plan: Will continue with with Ranitidine 150mg PO daily. (6) HLD (hyperlipidemia) (7) HTN (hypertension) Assessment/Plan: Well controlled will continue: * Amlodipine Besylate (Norvasc -) 5 mg PO DAILY KATHERINE (8) DVT prophylaxis Assessment/Plan: Heparin 5000 units SQ Q8H Visit type - Emergency Visit Emergency Visit: Yes ED Registration Date: 02/03/17 Care time: The patient presented to the Emergency Department on the above date and was hospitalized for further evaluation of their emergent condition. - New Patient This patient is new to me today: Yes Date on this admission: 02/03/17 - Critical Care Critical Care patient: No
[2017-02-03] MEDS: HEPARIN NA (PORCINE) 5,000 UNITS/ML 1ML VIAL SQ SCH (23:07)
[2017-02-03 23:42] VITALS: BMI 35.6
[2017-02-04] MEDS ORDERED: PT OWN MED DRAWER 7, Y5N ONE ×3 (06:09→22:05)
[2017-02-04] MEDS: HEPARIN NA (PORCINE) 5,000 UNITS/ML 1ML VIAL SQ SCH ×3 (06:19→22:13)
[2017-02-04] MEDS: RIFAXIMIN 550 MG TABLET (UD) PO SCH ×3 (06:19→22:12)
[2017-02-04 07:55] LABS: BASO % 0.3 % (0-2.0); EOS # 0.2 # (0-4.5); EOS % 3.2 % (0-4.5); LYMPH # 0.8 (8-40); MCH 28.7 pg (25.7-33.7); MCHC 33.1 g/dl (32.0-36.0); MEAN CELL VOLUME 86.7 fl (80-96); MEAN PLT VOLUME 6.7 fl (7.5-11.1); MONO # 0.6 # (3.8-10.2); NEUT # 3.6 # (42.8-82.8); NEUT % 68.8 % (42.8-82.8); PLATELET COUNT 347 K/MM3 (134-434); RDW 16.1 % (11.6-15.6); WHITE BLOOD COUNT 5.3 K/mm3 (4.0-10.0)
[2017-02-04 08:17] LABS: ANION GAP 10 (8-16); CALCIUM 8.9 mg/dL (8.5-10.1); CO2 27 mmol/L (21-32); GLUCOSE,RANDOM 83 mg/dL (74-106); MAGNESIUM 2.4 mg/dL (1.8-2.4)
[2017-02-04 08:20] LABS: CREATININE 0.7 mg/dL (0.55-1.02); PHOSPHOROUS 4.4 mg/dL (2.5-4.9)
[2017-02-04 09:30] LABS: URINE APPEARANCE SLCLOUDY; URINE BILIRUBIN NEGATIVE (NEGATIVE); URINE BLOOD 2+ (NEGATIVE); URINE COLOR YELLOW; URINE GLUCOSE (UA) NEGATIVE (NEGATIVE); URINE KETONE NEGATIVE (NEGATIVE); URINE NITRITE NEGATIVE (NEGATIVE); URINE PROTEIN NEGATIVE (NEGATIVE); URINE UROBILINOGEN NEGATIVE mg/dL (0.2-1.0)
[2017-02-04 09:49] LABS: URINE LEUK ESTERASE 2+ (NEGATIVE)
[2017-02-04 09:53] LABS: URINE RBC 1 /hpf (0-3); URINE WBC 34 /hpf (3-5)
[2017-02-04] MEDS: ESCITALOPRAM OXALATE 10 MG TABLET (FP) PO SCH (10:12)
[2017-02-04] MEDS: amLODIPine BESYLATE 5 MG TABLET (FP) PO SCH (10:12)
[2017-02-04] MEDS: AMITRIPTYLINE HCL 25 MG TABLET (FP) PO SCH ×2 (10:12→22:12)
[2017-02-04] MEDS: QUEtiapine FUMARATE 25 MG TABLET (FP) PO SCH (10:12)
[2017-02-04] MEDS: DIVALPROEX SODIUM 250 MG TABLET E.C. (FP) PO SCH ×2 (10:12→22:13)
[2017-02-04] MEDS: LIPASE/PROTEASE/AMYLASE 36,000 UNIT CAPSULE PO SCH ×3 (10:13→17:09)
[2017-02-04 13:10] LABS: URINE LEUK ESTERASE 1+ (NEGATIVE)
--- NOTE | 2017-02-04 13:34 | PN ---
Teaching Attending Note Name of Resident: Diamante Carter ATTENDING PHYSICIAN STATEMENT Time of evaluation: 8:00 AM I saw and evaluated the patient. I reviewed the resident's note and discussed the case with the resident. I agree with the resident's findings and plan as documented. SUBJECTIVE: Patient seen and examined. chest pain better. reports some cough, nasal stuffiness recently that is better now. No palpitations, dizziness or dsypnea noted currently. Eating well. Overall feels good. OBJECTIVE: Vital Signs Period Temp Pulse Resp BP Sys/Christensen Pulse Ox Last 24 Hr 98.3 F-99.1 F 79-104 16-22 113-153/57-76 98-100 Intake & Output 02/01/17 02/02/17 02/03/17 02/04/17 23:59 23:59 23:59 23:59 Intake Total 100 300 Output Total 100 Balance 100 200 Weight 182 lb 9.6 oz General: ambulating in room in no acute distress [id number] regular, rapid Chest: good air entry bilaterally, no rales or wheezing no chest wall tenderness noted HEENT: nasal congestion Home Medication List Medication Instructions Recorded Confirmed Type Dexlansoprazole [Dexilant] 60 mg PO DAILY 03/10/16 02/03/17 History Escitalopram Oxalate [Lexapro -] 10 mg PO DAILY 03/10/16 02/03/17 History Amitriptyline HCl [Elavil -] 25 mg PO BID 12/15/16 02/03/17 History Amlodipine Besylate 5 mg PO DAILY 12/15/16 02/03/17 History Divalproex [Depakote -] 250 mg PO BID 12/15/16 02/03/17 History Oxybutynin Chloride [Ditropan Xl] 15 mg PO DAILY 12/15/16 02/03/17 History Quetiapine Fumarate [Seroquel -] 25 mg PO DAILY 12/15/16 02/03/17 History Gabapentin 300 mg PO HS 01/19/17 02/03/17 History Linaclotide [Linzess] 72 mcg PO DAILY 01/19/17 02/03/17 History Lipase/Protease/Amylase [Creon Dr 1 each PO TID 01/19/17 02/03/17 History 36,000 Units Capsule] Mirtazapine [Remeron -] 7.5 mg PO HS 01/19/17 02/03/17 History Ranitidine [Zantac -] 300 mg PO HS 01/19/17 02/03/17 History Rifaximin [Xifaxan -] 550 mg PO TID 01/19/17 02/03/17 History Sumatriptan Succinate [Imitrex -] 50 mg PO DAILY 01/19/17 02/03/17 History Active Medications Generic Name Dose Route Start Last Admin Trade Name Chance PRN Reason Stop Dose Admin Amitriptyline HCl 25 mg 02/04/17 10:00 02/04/17 10:12 Elavil - PO 25 mg BID KATHERINE Administration Amlodipine Besylate 5 mg 02/04/17 10:00 02/04/17 10:12 Norvasc - PO 5 mg DAILY KATHERINE Administration Divalproex Sodium 250 mg 02/04/17 10:00 02/04/17 10:12 Depakote - PO 250 mg BID KATHERINE Administration Escitalopram Oxalate 10 mg 02/04/17 10:00 02/04/17 10:12 Lexapro - PO 10 mg DAILY KATHERINE Administration Gabapentin 300 mg 02/04/17 22:00 Neurontin - PO HS KATHERINE Heparin Sodium (Porcine) 5,000 unit 02/03/17 22:00 02/04/17 06:19 Heparin - SQ 5,000 unit TID KATHERINE Administration Mirtazapine 7.5 mg 02/04/17 22:00 Remeron - PO HS KATHERINE Pancrelipase 1 cap 02/04/17 08:00 02/04/17 11:[address] 36,000 Units Capsule PO 1 cap TIDCM KATHERINE Administration Quetiapine Fumarate 25 mg 02/04/17 10:00 02/04/17 10:12 Seroquel - PO 25 mg DAILY KATHERINE Administration Ranitidine HCl 300 mg 02/04/17 22:00 Zantac - PO HS KATHERINE Rifaximin 550 mg 02/04/17 06:00 02/04/17 06:19 Xifaxan - PO 550 mg TID KATHERINE Administration Laboratory Results - last 24 hr 02/03/17 02/03/17 02/03/17 17:00 17:00 17:00 WBC 6.4 D RBC 4.27 Hgb 12.2 Hct 37.0 MCV 86.7 MCH 28.7 MCHC 33.1 RDW 15.3 Plt Count 362 D MPV 6.8 L D Neutrophils % 68.3 Lymphocytes % 19.9 Monocytes % 9.4 Eosinophils % 1.9 Basophils % 0.5 PT with INR 11.30 INR 1.00 Sodium 126 L Potassium 4.3 Chloride 91 L Carbon Dioxide 28 Anion Gap 7 L BUN 9 D Creatinine 0.7 Creat Clearance w eGFR > 60 POC Glucometer Random Glucose 91 D Serum Osmolality Calcium 8.6 Phosphorus Magnesium 2.2 Total Bilirubin 0.5 AST 49 H D ALT 64 Alkaline Phosphatase 198 H Creatine Kinase 73 Troponin I < 0.02 B-Natriuretic Peptide Total Protein 7.4 Albumin 3.4 TSH Urine Color Urine Appearance Urine pH Ur Specific Star Urine Protein Urine Glucose (UA) Urine Ketones Urine Blood Urine Nitrite Urine Bilirubin Urine Urobilinogen Ur Leukocyte Esterase Urine WBC (Auto) Urine RBC (Auto) Urine Osmolality Ur Random Sodium Ur Random Potassium Ur Random Chloride Urine Creatinine 02/03/17 02/03/17 02/03/17 17:00 17:00 20:28 WBC RBC Hgb Hct MCV MCH MCHC RDW Plt Count MPV Neutrophils % Lymphocytes % Monocytes % Eosinophils % Basophils % PT with INR INR Sodium Potassium Chloride Carbon Dioxide Anion Gap BUN Creatinine Creat Clearance w eGFR POC Glucometer Random Glucose Serum Osmolality 264 L Calcium Phosphorus Magnesium Total Bilirubin AST ALT Alkaline Phosphatase Creatine Kinase Troponin I B-Natriuretic Peptide 684.51 H Total Protein Albumin TSH 1.03 D Urine Color Urine Appearance Urine pH Ur Specific Star Urine Protein Urine Glucose (UA) Urine Ketones Urine Blood Urine Nitrite Urine Bilirubin Urine Urobilinogen Ur Leukocyte Esterase Urine WBC (Auto) Urine RBC (Auto) Urine Osmolality Cancelled Ur Random Sodium Ur Random Potassium Ur Random Chloride Urine Creatinine 02/03/17 02/03/17 02/04/17 22:59 23:13 06:18 WBC RBC Hgb Hct MCV MCH MCHC RDW Plt Count MPV Neutrophils % Lymphocytes % Monocytes % Eosinophils % Basophils % PT with INR INR Sodium Potassium Chloride Carbon Dioxide Anion Gap BUN Creatinine Creat Clearance w eGFR POC Glucometer 138 88 Random Glucose Serum Osmolality Calcium Phosphorus Magnesium Total Bilirubin AST ALT Alkaline Phosphatase Creatine Kinase Troponin I < 0.02 B-Natriuretic Peptide Total Protein Albumin TSH Urine Color Urine Appearance Urine pH Ur Specific Star Urine Protein Urine Glucose (UA) Urine Ketones Urine Blood Urine Nitrite Urine Bilirubin Urine Urobilinogen Ur Leukocyte Esterase Urine WBC (Auto) Urine RBC (Auto) Urine Osmolality Ur Random Sodium Ur Random Potassium Ur Random Chloride Urine Creatinine 02/04/17 02/04/17 02/04/17 06:20 06:20 06:29 WBC 5.3 RBC 4.00 Hgb 11.5 Hct 34.7 MCV 86.7 MCH 28.7 MCHC 33.1 RDW 16.1 H Plt Count 347 MPV 6.7 L Neutrophils % 68.8 Lymphocytes % 15.9 D Monocytes % 11.8 H Eosinophils % 3.2 Basophils % 0.3 PT with INR INR Sodium 135 L Potassium 4.4 Chloride 98 Carbon Dioxide 27 Anion Gap 10 BUN 13 D Creatinine 0.7 Creat Clearance w eGFR POC Glucometer Random Glucose 83 Serum Osmolality Calcium 8.9 Phosphorus 4.4 D Magnesium 2.4 Total Bilirubin AST ALT Alkaline Phosphatase Creatine Kinase Troponin I B-Natriuretic Peptide Total Protein Albumin TSH Urine Color Yellow Urine Appearance Slcloudy Urine pH 7.0 Ur Specific Star 1.005 Urine Protein Negative Urine Glucose (UA) Negative Urine Ketones Negative Urine Blood 2+ H Urine Nitrite Negative Urine Bilirubin Negative Urine Urobilinogen Negative Ur Leukocyte Esterase 1+ H Urine WBC (Auto) 34 Urine RBC (Auto) 1 Urine Osmolality Ur Random Sodium Ur Random Potassium Ur Random Chloride Urine Creatinine 02/04/17 02/04/17 02/04/17 06:29 06:29 11:40 WBC RBC Hgb Hct MCV MCH MCHC RDW Plt Count MPV Neutrophils % Lymphocytes % Monocytes % Eosinophils % Basophils % PT with INR INR Sodium Potassium Chloride Carbon Dioxide Anion Gap BUN Creatinine Creat Clearance w eGFR POC Glucometer 86 Random Glucose Serum Osmolality Calcium Phosphorus Magnesium Total Bilirubin AST ALT Alkaline Phosphatase Creatine Kinase Troponin I B-Natriuretic Peptide Total Protein Albumin TSH Urine Color Urine Appearance Urine pH Ur Specific Star Urine Protein Urine Glucose (UA) Urine Ketones Urine Blood Urine Nitrite Urine Bilirubin Urine Urobilinogen Ur Leukocyte Esterase Urine WBC (Auto) Urine RBC (Auto) Urine Osmolality Ur Random Sodium 23 Ur Random Potassium 11.6 Ur Random Chloride 14 Urine Creatinine 37.0 telemetry sinus tach 120s, One strip 140s, ?Afib ASSESSMENT AND PLAN: 71 yof known to me from recent admit with chronic hyponatremia, CVA, meningioma resection 1999, HTN, GERD/PUD, recently admitted with hyponatremia/diarrhea comes with atypical chest pain, hyponatremia, found with tachycardia. -Atypical chest pain, suspect URI related, unlikely ACS -Tachycardia, telemetry one episode 140s, ?Afib -Acute on chronic hyponatremia -H/o CVA -Meningioma resection 1999 -HTN -GERD/PUD -Anxiety/depression Plan; Na improved. avoid excessive free water intake. Has chronic hyponatremia which I think is partly contributory from her multiple psychiatric meds. His sertraline that was recently started in 12/2016 was discontinued on recent admission. Na is currently stable. Will defer further manamgent including slow taper to outpatient psychiatrist. Chest pain associated with URI like illness, ACS ruled out recent 2D echo noted. Check flu swab. Cardiology consulted as ?episode of tachy 140s on telemetry suspicious for afib. Patient has h/o CVA. repeat EKG. Continue current meds. dispo in 24 hours pending cardiology input if no events.
--- NOTE | 2017-02-04 16:27 | EKG ---
Test Reason : Blood Pressure : / mmHG Vent. Rate : 094 BPM Atrial Rate : 094 BPM P-R Int : 152 ms QRS Dur : 086 ms QT Int : 360 ms P-R-T Axes : 044 001 022 degrees QTc Int : 450 ms NORMAL SINUS RHYTHM NORMAL ECG WHEN COMPARED WITH ECG OF 19-JAN-2017 05:56, NO SIGNIFICANT CHANGE WAS FOUND Confirmed by LJ SETHI MD ([id number]) on 02/04/2017 4:26:58 PM Referred By: Confirmed By:LJ SETHI MD
--- NOTE | 2017-02-04 16:32 | EKG ---
Test Reason : Blood Pressure : / mmHG Vent. Rate : 094 BPM Atrial Rate : 094 BPM P-R Int : 160 ms QRS Dur : 074 ms QT Int : 360 ms P-R-T Axes : 032 -01 026 degrees QTc Int : 450 ms NORMAL SINUS RHYTHM NORMAL ECG WHEN COMPARED WITH ECG OF 03-FEB-2017 17:37, NO SIGNIFICANT CHANGE WAS FOUND Confirmed by LJ SETHI MD ([id number]) on 02/04/2017 4:31:45 PM Referred By: Vilma ACEVEDO Confirmed By:LJ SETHI MD
--- NOTE | 2017-02-04 17:11 | CON.CARD ---
Consult Consult Specialty:: cardiology Reason for Consultation:: chest pain - History of Present Illness Chief Complaint: A&O; OOB in chair; anxious; + chest pain in left breast that is sharp, brief, and reproduced by palpation History of Present Illness: The patient is a 71 year old female with a significant PMH of hyperlipidemia, hypertension, PUD, seizures, anxiety, and GERD who presents to the emergency department with a headache and chest pain. The patient states the chest pain started at 3PM yesterday and describes the chest pain as localized on the left, constant, and non-radiating. The pain is not exertional, not pleuritic. The patient states that she has had the same pain several times in the past, and she attributes it to anxiety. She is requesting medication for anxiety. Pt also endorses mild frontal headache that she states she has had several times before as well. Denies F/C. Denies neck pain. denies weakness/numbness/tingling. The patient denies shortness of breath. Denies palpitations. Denies nausea, vomit, diarrhea and constipation. Denies dysuria, frequency, urgency and hematuria. 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: CVA Cardio/Vascular: Yes: HTN, Hyperlipdemia Gastrointestinal: Yes: GERD, Hiatal Hernia, Peptic Ulcer Disease Reproductive: Yes: Postmenopausal ...LMP Comment: post menopause ...: No Psych: Yes: Anxiety, Depression Musculoskeletal: Yes: Osteoarthritis Endocrine: Yes: Diabetes Mellitus - Past Surgical History Past Surgical History: Yes: Cataract Removal (bilateral), Joint Replacement (RT KNEE) - Alcohol/Substance Use Hx Alcohol Use: No History of Substance Use: reports: None - Smoking History Smoking history: Never smoked Have you smoked in the past 12 months: No Aproximately how many cigarettes per day: 0 - Social History 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, 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 History of Recent Travel: No Home Medications - Allergies Allergies/Adverse Reactions: Allergies Allergy/AdvReac Type Severity Reaction Status Date / Time aspirin Allergy Severe "NERVOUS" Verified 02/03/17 15:30 morphine Allergy Severe "ANXIETY-DE Verified 02/03/17 15:30 SPERATION" - Home Medications Home Medications: Ambulatory Orders Dexlansoprazole [Dexilant] 60 mg PO DAILY 03/10/16 Escitalopram Oxalate [Lexapro -] 10 mg PO DAILY 03/10/16 Amitriptyline HCl [Elavil -] 25 mg PO BID 12/15/16 Amlodipine Besylate 5 mg PO DAILY 12/15/16 Divalproex [Depakote -] 250 mg PO BID 12/15/16 Oxybutynin Chloride [Ditropan Xl] 15 mg PO DAILY 12/15/16 Quetiapine Fumarate [Seroquel -] 25 mg PO DAILY 12/15/16 Gabapentin 300 mg PO HS 01/19/17 Linaclotide [Linzess] 72 mcg PO DAILY 01/19/17 Lipase/Protease/Amylase [Kamari Dr 36,000 Units Capsule] 1 each PO TID 01/19/17 Mirtazapine [Remeron -] 7.5 mg PO HS 01/19/17 Ranitidine [Zantac -] 300 mg PO HS 01/19/17 Rifaximin [Xifaxan -] 550 mg PO TID 01/19/17 Sumatriptan Succinate [Imitrex -] 50 mg PO DAILY 01/19/17 Miscellaneous Drug Not In Syst [Outpatient Lab Test] 1 each ASDIR #1 mis 10/30 Family Disease History - Family Disease History Family History: Denies Review of Systems - Review of Systems Constitutional: reports: Weakness Eyes: reports: No Symptoms HENT: reports: No Symptoms Neck: reports: No Symptoms Cardiovascular: reports: Chest Pain, Palpitations, Shortness of Breath Respiratory: reports: Exercise Intolerance, SOB on Exertion Gastrointestinal: reports: Indigestion Genitourinary: reports: No Symptoms Breasts: reports: No Symptoms Reported Musculoskeletal: reports: Joint Swelling, Muscle Pain, Muscle Weakness Integumentary: reports: No Symptoms Neurological: reports: Dizziness, Weakness Endocrine: reports: No Symptoms Psychiatric: reports: Altered Sleep Pattern, Anxiety, Depression, Panic - Risk Factors Known Risk Factors: Yes: Age, Hypercholesterolemia, Hypertension Vital Signs: Vital Signs Temperature 98.5 F 02/04/17 14:32 Pulse Rate 111 H 02/04/17 16:28 Respiratory Rate 16 02/04/17 14:32 Blood Pressure 113/67 02/04/17 14:32 O2 Sat by Pulse Oximetry (%) 94 L 02/04/17 16:28 Constitutional: Yes: Anxious, Mild Distress Eyes: Yes: WNL HENT: Yes: WNL Neck: Yes: WNL Respiratory: Yes: Regular Gastrointestinal: Yes: Soft Renal/: No: Anuria Cardiovascular: Yes: Regular Rate and Rhythm JVD: No Carotid Bruit: No PMI: Non-Displaced Heart Sounds: Yes: S1, S2 Musculoskeletal: Yes: Joint Stiffness, Other (left breast is tender to palpation ) Extremities: Yes: Cool Edema: No Peripheral Pulses WNL: Yes Neurological: Yes: Alert, Oriented, Weakness Psychiatric: Yes: Other - Other Data Labs, Other Data: CBC, BMP 02/04/17 06:20 02/04/17 06:20 INR, PTT INR 1.00 (0.82-1.09) 02/03/17 17:00 Troponin, BNP 02/03/17 02/03/17 02/03/17 17:00 17:00 23:13 Troponin I < 0.02 < 0.02 B-Natriuretic Peptide 684.51 H Troponin, BNP 02/03/17 02/03/17 02/03/17 17:00 17:00 23:13 Troponin I < 0.02 < 0.02 B-Natriuretic Peptide 684.51 H Ejection Fraction %: LVEF > or = 40 % Imaging - Results Chest X-ray: Image Reviewed (?RLL lesion) Problem List - Problems (1) Acid reflux disease with ulcer Code(s): K21.9 - GASTRO-ESOPHAGEAL REFLUX DISEASE WITHOUT ESOPHAGITIS (2) Hyponatremia Assessment/Plan: chronic; 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 EKG: normal sinus rhythm; no acute STT changes. TNI <0.02. Code(s): R07.89 - OTHER CHEST PAIN (4) Anxiety Code(s): F41.9 - ANXIETY DISORDER, UNSPECIFIED (5) Back pain Code(s): M54.9 - DORSALGIA, UNSPECIFIED (6) Chronic headache Code(s): R51 - HEADACHE Qualifiers: Headache type: tension-type Intractability: not intractable Qualified Code(s): G44.229 - Chronic tension-type headache, not intractable (7) Dyslipidemia Code(s): E78.5 - HYPERLIPIDEMIA, UNSPECIFIED (8) History of CVA (cerebrovascular accident) Assessment/Plan: F/u on telemetry Code(s): Z86.73 - PRSNL HX OF TIA (TIA), AND CEREB INFRC W/O RESID DEFICITS (9) Vertigo Code(s): R42 - DIZZINESS AND GIDDINESS (10) Weakness Code(s): R53.1 - WEAKNESS (11) Dizzinesses Code(s): R42 - DIZZINESS AND GIDDINESS
[2017-02-04 18:50] LABS: ALBUMIN 3.3 g/dl (3.4-5.0); ALK PHOS 190 U/L (45-117); ANION GAP 6 (8-16); BILIRUBIN,TOTAL 0.3 mg/dL (0.2-1.0); CALCIUM 8.8 mg/dL (8.5-10.1); CO2 30 mmol/L (21-32); CREATININE 0.9 mg/dL (0.55-1.02); GLUCOSE,RANDOM 102 mg/dL (74-106); SGOT/AST 32 U/L (15-37); SGPT/ALT 52 U/L (12-78); TOT PROT 6.9 g/dl (6.4-8.2)
--- NOTE | 2017-02-04 21:01 | PN ---
Physical Exam: SUBJECTIVE: Patient seen and examined. She is feeling better today, occasionally coughing. OBJECTIVE: Vital Signs Period Temp Pulse Resp BP Sys/Christensen Pulse Ox Last 24 Hr 98.3 F-99.3 F 79-111 16-20 113-153/57-76 94-100 GENERAL: The patient is awake, alert, and fully oriented, in no acute distress. HEAD: Normal with no signs of trauma. EYES: extraocular movements intact, sclera anicteric, ENT: oropharynx clear without exudates, moist mucous membranes. NECK: Trachea midline, full range of motion, supple. LUNGS: clear to auscultation bilaterally, no wheezes, no crackles, no accessory muscle use. HEART: Regular rate and rhythm, S1, S2 without murmur, rub or gallop. ABDOMEN: Obese, soft, nontender, nondistended, normoactive bowel sounds, no guarding, no rebound, no hepatosplenomegaly, no masses. EXTREMITIES: 2+ pulses, warm, no edema. NEUROLOGICAL: Normal speech, no facial asymmetry, normal motor 5/5, gait wnl, no assistance needed. PSYCH: Normal mood, normal affect. SKIN: Warm, dry, normal turgor, no rashes. Laboratory Results - last 24 hr 02/03/17 02/03/17 02/03/17 17:00 20:28 22:59 WBC RBC Hgb Hct MCV MCH MCHC RDW Plt Count MPV Neutrophils % Lymphocytes % Monocytes % Eosinophils % Basophils % Sodium Potassium Chloride Carbon Dioxide Anion Gap BUN Creatinine Creat Clearance w eGFR POC Glucometer 138 Random Glucose Serum Osmolality 264 L Calcium Phosphorus Magnesium Total Bilirubin AST ALT Alkaline Phosphatase Troponin I Total Protein Albumin TSH 1.03 D Urine Color Urine Appearance Urine pH Ur Specific [place] Urine Protein Urine Glucose (UA) Urine Ketones Urine Blood Urine Nitrite Urine Bilirubin Urine Urobilinogen Ur Leukocyte Esterase Urine WBC (Auto) Urine RBC (Auto) Urine Osmolality Cancelled Ur Random Sodium Ur Random Potassium Ur Random Chloride Urine Creatinine 02/03/17 02/04/17 02/04/17 23:13 06:18 06:20 WBC 5.3 RBC 4.00 Hgb 11.5 Hct 34.7 MCV 86.7 MCH 28.7 MCHC 33.1 RDW 16.1 H Plt Count 347 MPV 6.7 L Neutrophils % 68.8 Lymphocytes % 15.9 D Monocytes % 11.8 H Eosinophils % 3.2 Basophils % 0.3 Sodium Potassium Chloride Carbon Dioxide Anion Gap BUN Creatinine Creat Clearance w eGFR POC Glucometer 88 Random Glucose Serum Osmolality Calcium Phosphorus Magnesium Total Bilirubin AST ALT Alkaline Phosphatase Troponin I < 0.02 Total Protein Albumin TSH Urine Color Urine Appearance Urine pH Ur Specific [place] Urine Protein Urine Glucose (UA) Urine Ketones Urine Blood Urine Nitrite Urine Bilirubin Urine Urobilinogen Ur Leukocyte Esterase Urine WBC (Auto) Urine RBC (Auto) Urine Osmolality Ur Random Sodium Ur Random Potassium Ur Random Chloride Urine Creatinine 02/04/17 02/04/17 02/04/17 06:20 06:29 06:29 WBC RBC Hgb Hct MCV MCH MCHC RDW Plt Count MPV Neutrophils % Lymphocytes % Monocytes % Eosinophils % Basophils % Sodium 135 L Potassium 4.4 Chloride 98 Carbon Dioxide 27 Anion Gap 10 BUN 13 D Creatinine 0.7 Creat Clearance w eGFR POC Glucometer Random Glucose 83 Serum Osmolality Calcium 8.9 Phosphorus 4.4 D Magnesium 2.4 Total Bilirubin AST ALT Alkaline Phosphatase Troponin I Total Protein Albumin TSH Urine Color Yellow Urine Appearance Slcloudy Urine pH 7.0 Ur Specific [place] 1.005 Urine Protein Negative Urine Glucose (UA) Negative Urine Ketones Negative Urine Blood 2+ H Urine Nitrite Negative Urine Bilirubin Negative Urine Urobilinogen Negative Ur Leukocyte Esterase 1+ H Urine WBC (Auto) 34 Urine RBC (Auto) 1 Urine Osmolality Ur Random Sodium 23 Ur Random Potassium 11.6 Ur Random Chloride 14 Urine Creatinine 02/04/17 02/04/17 02/04/17 06:29 11:40 17:04 WBC RBC Hgb Hct MCV MCH MCHC RDW Plt Count MPV Neutrophils % Lymphocytes % Monocytes % Eosinophils % Basophils % Sodium Potassium Chloride Carbon Dioxide Anion Gap BUN Creatinine Creat Clearance w eGFR POC Glucometer 86 106 Random Glucose Serum Osmolality Calcium Phosphorus Magnesium Total Bilirubin AST ALT Alkaline Phosphatase Troponin I Total Protein Albumin TSH Urine Color Urine Appearance Urine pH Ur Specific [place] Urine Protein Urine Glucose (UA) Urine Ketones Urine Blood Urine Nitrite Urine Bilirubin Urine Urobilinogen Ur Leukocyte Esterase Urine WBC (Auto) Urine RBC (Auto) Urine Osmolality Ur Random Sodium Ur Random Potassium Ur Random Chloride Urine Creatinine 37.0 02/04/17 17:45 WBC RBC Hgb Hct MCV MCH MCHC RDW Plt Count MPV Neutrophils % Lymphocytes % Monocytes % Eosinophils % Basophils % Sodium 130 L Potassium 4.4 Chloride 94 L Carbon Dioxide 30 Anion Gap 6 L BUN 21 H D Creatinine 0.9 D Creat Clearance w eGFR > 60 POC Glucometer Random Glucose 102 D Serum Osmolality Calcium 8.8 Phosphorus Magnesium Total Bilirubin 0.3 D AST 32 D ALT 52 Alkaline Phosphatase 190 H Troponin I Total Protein 6.9 Albumin 3.3 L TSH Urine Color Urine Appearance Urine pH Ur Specific [place] Urine Protein Urine Glucose (UA) Urine Ketones Urine Blood Urine Nitrite Urine Bilirubin Urine Urobilinogen Ur Leukocyte Esterase Urine WBC (Auto) Urine RBC (Auto) Urine Osmolality Ur Random Sodium Ur Random Potassium Ur Random Chloride Urine Creatinine Active Medications Generic Name Dose Route Start Last Admin Trade Name Freq PRN Reason Stop Dose Admin Amitriptyline HCl 25 mg 02/04/17 10:00 02/04/17 10:12 Elavil - PO 25 mg BID KATHERINE Administration Amlodipine Besylate 5 mg 02/04/17 10:00 02/04/17 10:12 Norvasc - PO 5 mg DAILY KATHERINE Administration Divalproex Sodium 250 mg 02/04/17 10:00 02/04/17 10:12 Depakote - PO 250 mg BID KATHERINE Administration Escitalopram Oxalate 10 mg 02/04/17 10:00 02/04/17 10:12 Lexapro - PO 10 mg DAILY KATHERINE Administration Gabapentin 300 mg 02/04/17 22:00 Neurontin - PO HS KATHERINE Heparin Sodium (Porcine) 5,000 unit 02/03/17 22:00 02/04/17 13:51 Heparin - SQ 5,000 unit TID KATHERINE Administration Mirtazapine 7.5 mg 02/04/17 22:00 Remeron - PO HS KATHERINE Pancrelipase 1 cap 02/04/17 08:00 02/04/17 17:09 Kamari Nazario 36,000 Units Capsule PO 1 cap TIDCM KATHERINE Administration Quetiapine Fumarate 25 mg 02/04/17 10:00 02/04/17 10:12 Seroquel - PO 25 mg DAILY KATHERINE Administration Ranitidine HCl 300 mg 02/04/17 22:00 Zantac - PO HS KATHERINE Rifaximin 550 mg 02/04/17 06:00 02/04/17 13:52 Xifaxan - PO 550 mg TID KATHERINE Administration ASSESSMENT/PLAN: 71 yo F with PMHx of CVA (2009), HTN, HLD, and siezure disorder admitted to med /surg for management of hyponatremia. Hyponatremia known to have chronic hyponatremia. Possibly to multiple psych medications. Na improved today to 135 and decreased to 130 in the evening Will water restrict for now, tolerating diet well, Renal US and Echo done on last admission. Chest pain ikely chronic epigastric pain from GERD or MSK Atypical chest pain, No EKG changes. Will F/U Cardiology recommendation no raising troponins repeated EKG was nl Diabetes HgbA1C in 06/2016 6.1 not on hypoglycemic meds. BGM ACHS ISS ACHS Anxiety Escitalopram Oxalate 10 mg PO DAILY KATHERINE GERD continue with with Ranitidine 150mg PO daily. HTN Well controlled will continue: Amlodipine Besylate (Norvasc -) 5 mg PO DAILY KATHERINE DVT prophylaxis Heparin 5000 units SQ Q8H scds Disposition; telemetry monitoring Problem List - Problems (1) Chest pain Code(s): R07.9 - CHEST PAIN, UNSPECIFIED Qualifiers: Chest pain type: unspecified Qualified Code(s): R07.9 - Chest pain, unspecified (2) Hyponatremia Code(s): E87.1 - HYPO-OSMOLALITY AND HYPONATREMIA (3) Acid reflux disease with ulcer Code(s): K21.9 - GASTRO-ESOPHAGEAL REFLUX DISEASE WITHOUT ESOPHAGITIS (4) Atypical chest pain Code(s): R07.89 - OTHER CHEST PAIN (5) DVT prophylaxis Code(s): [id number] - (6) Diabetes Code(s): E11.9 - TYPE 2 DIABETES MELLITUS WITHOUT COMPLICATIONS Qualifiers: Diabetes mellitus type: type 2 Visit type - Emergency Visit Emergency Visit: Yes ED Registration Date: 02/03/17 Care time: The patient presented to the Emergency Department on the above date and was hospitalized for further evaluation of their emergent condition. - New Patient This patient is new to me today: Yes Date on this admission: 02/05/17 - Critical Care Critical Care patient: No
[2017-02-04] MEDS: GABAPENTIN 300 MG CAPSULE (FP) PO SCH (22:12)
[2017-02-04] MEDS: RANITIDINE HCL 150 MG TABLET (FP) PO SCH (22:12)
[2017-02-04] MEDS: MIRTAZAPINE 15 MG TABLET (FP) PO SCH (22:13)
[2017-02-05] MEDS: RIFAXIMIN 550 MG TABLET (UD) PO SCH ×3 (05:21→21:54)
[2017-02-05] MEDS ORDERED: PT OWN MED DRAWER 7, Y5N ONE ×3 (05:21→21:45)
[2017-02-05] MEDS: HEPARIN NA (PORCINE) 5,000 UNITS/ML 1ML VIAL SQ SCH ×3 (05:21→21:54)
[2017-02-05 08:18] LABS: BASO % 0.5 % (0-2.0); EOS # 0.2 # (0-4.5); EOS % 3.8 % (0-4.5); LYMPH # 1.2 (8-40); MCH 28.5 pg (25.7-33.7); MCHC 32.2 g/dl (32.0-36.0); MEAN CELL VOLUME 88.5 fl (80-96); MEAN PLT VOLUME 6.8 fl (7.5-11.1); MONO # 0.8 # (3.8-10.2); NEUT # 3.3 # (42.8-82.8); NEUT % 59.4 % (42.8-82.8); PLATELET COUNT 321 K/MM3 (134-434); RDW 16.1 % (11.6-15.6); WHITE BLOOD COUNT 5.5 K/mm3 (4.0-10.0)
[2017-02-05 08:30] LABS: ANION GAP 6 (8-16); CALCIUM 8.4 mg/dL (8.5-10.1); CO2 29 mmol/L (21-32); CREATININE 0.6 mg/dL (0.55-1.02); GLUCOSE,RANDOM 88 mg/dL (74-106)
[2017-02-05 09:06] LABS: ALBUMIN 2.9 g/dl (3.4-5.0); BILIRUBIN,TOTAL 0.6 mg/dL (0.2-1.0); SGOT/AST 26 U/L (15-37); TOT PROT 6.1 g/dl (6.4-8.2)
[2017-02-05 09:07] LABS: ALK PHOS 156 U/L (45-117); SGPT/ALT 43 U/L (12-78)
--- NOTE | 2017-02-05 09:37 | PN ---
Teaching Attending Note Name of Resident: . ATTENDING PHYSICIAN STATEMENT SUBJECTIVE: Patient seen and examined, Chest symptoms improved, reports some headache. Breathing improved, No palpitations or dizziness noted. Epigastric pain that is chronc, other haro no complaints. OBJECTIVE: Vital Signs Period Temp Pulse Resp BP Sys/Christensen Pulse Ox Last 24 Hr 97.4 F-99.3 F 75-111 16-18 113-131/47-71 94-95 Intake & Output 02/02/17 02/03/17 02/04/17 02/05/17 23:59 23:59 23:59 23:59 Intake Total 100 1570 200 Output Total 100 Balance 100 1470 200 Weight 182 lb 9.6 oz General: sitting in bed in no acute distress CVS:S1S2 regular rapid Chest: good air entry, no rales or wheezing appreciated Abdomen: soft, mild epigastric tenderness (chronic per patient), no voluntary or involuntary guarding or rigidity Extremities: no edema Home Medication List Medication Instructions Recorded Confirmed Type Dexlansoprazole [Dexilant] 60 mg PO DAILY 03/10/16 02/03/17 History Escitalopram Oxalate [Lexapro -] 10 mg PO DAILY 03/10/16 02/03/17 History Amitriptyline HCl [Elavil -] 25 mg PO BID 12/15/16 02/03/17 History Amlodipine Besylate 5 mg PO DAILY 12/15/16 02/03/17 History Divalproex [Depakote -] 250 mg PO BID 12/15/16 02/03/17 History Oxybutynin Chloride [Ditropan Xl] 15 mg PO DAILY 12/15/16 02/03/17 History Quetiapine Fumarate [Seroquel -] 25 mg PO DAILY 12/15/16 02/03/17 History Gabapentin 300 mg PO HS 01/19/17 02/03/17 History Linaclotide [Linzess] 72 mcg PO DAILY 01/19/17 02/03/17 History Lipase/Protease/Amylase [Creon Dr 1 each PO TID 01/19/17 02/03/17 History 36,000 Units Capsule] Mirtazapine [Remeron -] 7.5 mg PO HS 01/19/17 02/03/17 History Ranitidine [Zantac -] 300 mg PO HS 01/19/17 02/03/17 History Rifaximin [Xifaxan -] 550 mg PO TID 01/19/17 02/03/17 History Sumatriptan Succinate [Imitrex -] 50 mg PO DAILY 01/19/17 02/03/17 History Active Medications Generic Name Dose Route Start Last Admin Trade Name Chance PRN Reason Stop Dose Admin Amitriptyline HCl 25 mg 02/04/17 10:00 02/04/17 22:12 Elavil - PO 25 mg BID KATHERINE Administration Amlodipine Besylate 5 mg 02/04/17 10:00 02/04/17 10:12 Norvasc - PO 5 mg DAILY KATHERINE Administration Divalproex Sodium 250 mg 02/04/17 10:00 02/04/17 22:13 Depakote - PO 250 mg BID KATHERINE Administration Escitalopram Oxalate 10 mg 02/04/17 10:00 02/04/17 10:12 Lexapro - PO 10 mg DAILY KATHERINE Administration Gabapentin 300 mg 02/04/17 22:00 02/04/17 22:12 Neurontin - PO 300 mg HS KATHERINE Administration Heparin Sodium (Porcine) 5,000 unit 02/03/17 22:00 02/05/17 05:21 Heparin - SQ 5,000 unit TID KATHERINE Administration Mirtazapine 7.5 mg 02/04/17 22:00 02/04/17 22:13 Remeron - PO 7.5 mg HS KATHERINE Administration Pancrelipase 1 cap 02/04/17 08:00 02/04/17 17:09 Crecristina Nazario 36,000 Units Capsule PO 1 cap TIDCM KATHERINE Administration Quetiapine Fumarate 25 mg 02/04/17 10:00 02/04/17 10:12 Seroquel - PO 25 mg DAILY KATHERINE Administration Ranitidine HCl 300 mg 02/04/17 22:00 02/04/17 22:12 Zantac - PO 300 mg HS KATHERINE Administration Rifaximin 550 mg 02/04/17 06:00 02/05/17 05:21 Xifaxan - PO 550 mg TID KATHERINE Administration Laboratory Results - last 24 hr 02/03/17 02/04/17 02/04/17 17:00 06:29 11:40 WBC RBC Hgb Hct MCV MCH MCHC RDW Plt Count MPV Neutrophils % Lymphocytes % Monocytes % Eosinophils % Basophils % Sodium Potassium Chloride Carbon Dioxide Anion Gap BUN Creatinine Creat Clearance w eGFR POC Glucometer 86 Random Glucose Calcium Total Bilirubin AST ALT Alkaline Phosphatase Total Protein Albumin Urine Color Yellow Urine Appearance Slcloudy Urine pH 7.0 Ur Specific [place] 1.005 Urine Protein Negative Urine Glucose (UA) Negative Urine Ketones Negative Urine Blood 2+ H Urine Nitrite Negative Urine Bilirubin Negative Urine Urobilinogen Negative Ur Leukocyte Esterase 1+ H Urine WBC (Auto) 34 Urine RBC (Auto) 1 Urine Osmolality Cancelled 02/04/17 02/04/17 02/05/17 17:04 17:45 06:03 WBC RBC Hgb Hct MCV MCH MCHC RDW Plt Count MPV Neutrophils % Lymphocytes % Monocytes % Eosinophils % Basophils % Sodium 130 L Potassium 4.4 Chloride 94 L Carbon Dioxide 30 Anion Gap 6 L BUN 21 H D Creatinine 0.9 D Creat Clearance w eGFR > 60 POC Glucometer 106 92 Random Glucose 102 D Calcium 8.8 Total Bilirubin 0.3 D AST 32 D ALT 52 Alkaline Phosphatase 190 H Total Protein 6.9 Albumin 3.3 L Urine Color Urine Appearance Urine pH Ur Specific [place] Urine Protein Urine Glucose (UA) Urine Ketones Urine Blood Urine Nitrite Urine Bilirubin Urine Urobilinogen Ur Leukocyte Esterase Urine WBC (Auto) Urine RBC (Auto) Urine Osmolality 02/05/17 02/05/17 02/05/17 06:15 06:15 07:56 WBC 5.5 RBC 4.03 Hgb 11.5 Hct 35.7 MCV 88.5 MCH 28.5 MCHC 32.2 RDW 16.1 H Plt Count 321 MPV 6.8 L Neutrophils % 59.4 Lymphocytes % 21.1 D Monocytes % 15.2 H Eosinophils % 3.8 Basophils % 0.5 Sodium 134 L Cancelled Potassium 4.6 Cancelled Chloride 99 Cancelled Carbon Dioxide 29 Cancelled Anion Gap 6 L Cancelled BUN 16 D Cancelled Creatinine 0.6 D Cancelled Creat Clearance w eGFR > 60 Cancelled POC Glucometer Random Glucose 88 Cancelled Calcium 8.4 L Cancelled Total Bilirubin 0.6 D Cancelled AST 26 Cancelled ALT 43 Cancelled Alkaline Phosphatase 156 H Cancelled Total Protein 6.1 L Cancelled Albumin 2.9 L Cancelled Urine Color Urine Appearance Urine pH Ur Specific [place] Urine Protein Urine Glucose (UA) Urine Ketones Urine Blood Urine Nitrite Urine Bilirubin Urine Urobilinogen Ur Leukocyte Esterase Urine WBC (Auto) Urine RBC (Auto) Urine Osmolality Microbiology 02/04/17 14:29 Nasopharyngeal Swab Influenza Types A,B Antigen (ERENDIRA) - Final 02/04/17 14:29 Nasopharyngeal Swab - Final ASSESSMENT AND PLAN: 71 yof known to me from recent admit with chronic hyponatremia, CVA, meningioma resection 1999, HTN, GERD/PUD, recently admitted with hyponatremia/diarrhea comes with atypical chest pain, hyponatremia, found with tachycardia, now with hypoxia upto 79 with ambulation. -Atypical chest pain, suspect URI related, unlikely ACS -Tachycardia, telemetry one episode (on 02/04), 140s, ?Afib -Acute hypoxia (ambulatory saturations 79, rest 90s) -Acute on chronic hyponatremia -H/o CVA -Meningioma resection 1999 -HTN -GERD/PUD -Anxiety/depression Plan; Persistent tachycardia, consistently sinus tach with no further episodes suspicious for ?Afib, EKG with sinus tach. Discussed telemetry findings with Dr. Vargas, will follow up on additional recs. Significant hypoxia with activity, given sinus tachycardia with no clear etiology check CTA chest, ALso URI with bronchitis on differential. If CTA neg, will give short trial of steroids. Na improved. avoid excessive free water intake. Has chronic hyponatremia which I think is partly contributory from her multiple psychiatric meds. His sertraline that was recently started in 12/2016 was discontinued on recent admission. Na is currently stable. Will defer further manamgent including slow taper to outpatient psychiatrist. Atypical CP, ACS ruled out. CTA for PE as above. recent 2D echo noted. Influenza swab neg. Continue current meds. dispo planning on hold given ongoing tachycardia with hypoxia and need for addiitonal w/u. Anticipate home with VNS when medical issues resolve.
[2017-02-05] MEDS: AMITRIPTYLINE HCL 25 MG TABLET (FP) PO SCH ×2 (10:59→21:54)
[2017-02-05] MEDS: ESCITALOPRAM OXALATE 10 MG TABLET (FP) PO SCH (10:59)
[2017-02-05] MEDS: QUEtiapine FUMARATE 25 MG TABLET (FP) PO SCH (10:59)
[2017-02-05] MEDS: amLODIPine BESYLATE 5 MG TABLET (FP) PO SCH (10:59)
[2017-02-05] MEDS: DIVALPROEX SODIUM 250 MG TABLET E.C. (FP) PO SCH ×2 (10:59→21:54)
[2017-02-05] MEDS: LIPASE/PROTEASE/AMYLASE 36,000 UNIT CAPSULE PO SCH ×3 (11:01→18:06)
--- NOTE | 2017-02-05 11:21 | PN ---
Progress Note, Physician Chief Complaint: Pt OOB in chair; anxious; c/o same pain in left breast. No palpitations. History of Present Illness: The patient is a 71 year old female with a significant PMH of hyperlipidemia, hypertension, PUD, seizures, anxiety, and GERD who presents to the emergency department with a headache and chest pain. The patient states the chest pain started at 3PM yesterday and describes the chest pain as localized on the left, constant, and non-radiating. The pain is not exertional, not pleuritic. The patient states that she has had the same pain several times in the past, and she attributes it to anxiety. She is requesting medication for anxiety. Pt also endorses mild frontal headache that she states she has had several times before as well. Denies F/C. Denies neck pain. denies weakness/numbness/tingling. The patient denies shortness of breath. Denies palpitations. Denies nausea, vomit, diarrhea and constipation. Denies dysuria, frequency, urgency and hematuria. Allergies: NKA Past surgical history: brain - Current Medication List Current Medications: Active Medications Amitriptyline HCl (Elavil -) 25 mg PO BID [facility] Last Admin: 02/05/17 10:59 Dose: 25 mg Amlodipine Besylate (Norvasc -) 5 mg PO DAILY [facility] Last Admin: 02/05/17 10:59 Dose: 5 mg Divalproex Sodium (Depakote -) 250 mg PO BID [facility] Last Admin: 02/05/17 10:59 Dose: 250 mg Escitalopram Oxalate (Lexapro -) 10 mg PO DAILY [facility] Last Admin: 02/05/17 10:59 Dose: 10 mg Gabapentin (Neurontin -) 300 mg PO HS [facility] Last Admin: 02/04/17 22:12 Dose: 300 mg Heparin Sodium (Porcine) (Heparin -) 5,000 unit SQ TID [facility] Last Admin: 02/05/17 05:21 Dose: 5,000 unit Mirtazapine (Remeron -) 7.5 mg PO HS [facility] Last Admin: 02/04/17 22:13 Dose: 7.5 mg Pancrelipase (Creon Dr 36,000 Units Capsule) 1 cap PO TIDCM [facility] Last Admin: 02/05/17 11:01 Dose: 1 cap Quetiapine Fumarate (Seroquel -) 25 mg PO DAILY [facility] Last Admin: 02/05/17 10:59 Dose: 25 mg Ranitidine HCl (Zantac -) 300 mg PO HS [facility] Last Admin: 02/04/17 22:12 Dose: 300 mg Rifaximin (Xifaxan -) 550 mg PO TID [facility] Last Admin: 02/05/17 05:21 Dose: 550 mg - Objective Vital Signs: Vital Signs Temperature 98 F 02/05/17 06:00 Pulse Rate 75 02/05/17 06:00 Respiratory Rate 18 02/05/17 06:00 Blood Pressure 114/47 02/05/17 06:00 O2 Sat by Pulse Oximetry (%) 95 02/04/17 21:00 Constitutional: Yes: Well Nourished, Anxious, Mild Distress Eyes: Yes: WNL HENT: Yes: WNL Neck: Yes: WNL Cardiovascular: Yes: Regular Rate and Rhythm Respiratory: Yes: Regular Gastrointestinal: Yes: Soft ...Rectal Exam: Yes: Deferred Genitourinary: No: Anuria Musculoskeletal: Yes: Back Pain, Joint Stiffness Extremities: Yes: Cool Edema: No Peripheral Pulses WNL: Yes Integumentary: Yes: WNL Neurological: Yes: Alert, Weakness Psychiatric: Yes: Alert, Other Labs: CBC, BMP 02/05/17 06:15 02/05/17 07:56 INR, PTT INR 1.00 (0.82-1.09) 02/03/17 17:00 - ....Imaging Chest X-ray: Image Reviewed (mild congestive changes) EKG: Image Reviewed (normal study) Problem List - Problems (1) Acid reflux disease with ulcer Code(s): K21.9 - GASTRO-ESOPHAGEAL REFLUX DISEASE WITHOUT ESOPHAGITIS (2) Hyponatremia Assessment/Plan: improving Code(s): E87.1 - HYPO-OSMOLALITY AND HYPONATREMIA (3) Atypical chest pain Assessment/Plan: Prt's chest pain is reproduced on palpation of left breast. EKG: normal sinus rhythm; no acute STT changes. TNI <0.02. Consider breast US. Code(s): R07.89 - OTHER CHEST PAIN (4) Anxiety Assessment/Plan: on medications Code(s): F41.9 - ANXIETY DISORDER, UNSPECIFIED (5) Back pain Code(s): M54.9 - DORSALGIA, UNSPECIFIED (6) Chronic headache Code(s): R51 - HEADACHE Qualifiers: Headache type: tension-type Intractability: not intractable Qualified Code(s): G44.229 - Chronic tension-type headache, not intractable (7) Dyslipidemia Code(s): E78.5 - HYPERLIPIDEMIA, UNSPECIFIED (8) History of CVA (cerebrovascular accident) Assessment/Plan: s/p craniotomy years ago No acute changes on CT head. Code(s): Z86.73 - PRSNL HX OF TIA (TIA), AND CEREB INFRC W/O RESID DEFICITS (9) Vertigo Code(s): R42 - DIZZINESS AND GIDDINESS (10) Weakness Code(s): R53.1 - WEAKNESS (11) Dizzinesses Code(s): R42 - DIZZINESS AND GIDDINESS (12) PSVT (paroxysmal supraventricular tachycardia) Assessment/Plan: NSR; brief periods of PSVT. Recommend change from amlodipine to metoprolol, unless contraindications (e.g. asthma). Holter to r/o AF. Code(s): I47.1 - SUPRAVENTRICULAR TACHYCARDIA
--- NOTE | 2017-02-05 16:56 | EKG ---
Test Reason : Blood Pressure : / mmHG Vent. Rate : 082 BPM Atrial Rate : 082 BPM P-R Int : 160 ms QRS Dur : 078 ms QT Int : 374 ms P-R-T Axes : 040 007 022 degrees QTc Int : 436 ms NORMAL SINUS RHYTHM NORMAL ECG WHEN COMPARED WITH ECG OF 04-FEB-2017 09:35, NO SIGNIFICANT CHANGE WAS FOUND Confirmed by LJ SETHI MD ([id number]) on 02/05/2017 4:56:22 PM Referred By: Vilma ACEVEDO Confirmed By:LJ SETHI MD
[2017-02-05] MEDS ORDERED: ACETAMINOPHEN 325 MG TABLET (FP) PO PRN (18:44)
[2017-02-05] MEDS ORDERED: METOPROLOL SUCCINATE 25 MG TAB.SR.24H (FP) PO ONE (21:16)
[2017-02-05] MEDS: GABAPENTIN 300 MG CAPSULE (FP) PO SCH (21:54)
[2017-02-05] MEDS: RANITIDINE HCL 150 MG TABLET (FP) PO SCH (21:54)
[2017-02-05] MEDS: MIRTAZAPINE 15 MG TABLET (FP) PO SCH (21:55)
[2017-02-06] MEDS ORDERED: PT OWN MED DRAWER 7, Y5N ONE ×2 (05:41→08:56)
[2017-02-06] MEDS: RIFAXIMIN 550 MG TABLET (UD) PO SCH ×2 (05:43→13:39)
[2017-02-06] MEDS: HEPARIN NA (PORCINE) 5,000 UNITS/ML 1ML VIAL SQ SCH ×2 (05:43→13:39)
[2017-02-06 08:14] LABS: BASO % 0.6 % (0-2.0); EOS # 0.2 # (0-4.5); EOS % 4.2 % (0-4.5); LYMPH # 1.1 (8-40); MCH 28.5 pg (25.7-33.7); MEAN CELL VOLUME 88.9 fl (80-96); MEAN PLT VOLUME 7.1 fl (7.5-11.1); MONO # 0.7 # (3.8-10.2); NEUT # 2.8 # (42.8-82.8); NEUT % 58.7 % (42.8-82.8); PLATELET COUNT 322 K/MM3 (134-434); RDW 16.1 % (11.6-15.6); WHITE BLOOD COUNT 4.7 K/mm3 (4.0-10.0)
[2017-02-06 08:23] LABS: ALBUMIN 2.9 g/dl (3.4-5.0); SGOT/AST 24 U/L (15-37); SGPT/ALT 39 U/L (12-78)
[2017-02-06 08:25] LABS: ALK PHOS 154 U/L (45-117); ANION GAP 8 (8-16); BILIRUBIN,TOTAL 0.4 mg/dL (0.2-1.0); CALCIUM 8.5 mg/dL (8.5-10.1); CO2 27 mmol/L (21-32); CREATININE 0.6 mg/dL (0.55-1.02); GLUCOSE,RANDOM 85 mg/dL (74-106); TOT PROT 6.2 g/dl (6.4-8.2)
[2017-02-06] MEDS: LIPASE/PROTEASE/AMYLASE 36,000 UNIT CAPSULE PO SCH ×2 (09:12→11:36)
[2017-02-06] MEDS: DIVALPROEX SODIUM 250 MG TABLET E.C. (FP) PO SCH (09:13)
[2017-02-06] MEDS: AMITRIPTYLINE HCL 25 MG TABLET (FP) PO SCH (09:13)
[2017-02-06] MEDS: QUEtiapine FUMARATE 25 MG TABLET (FP) PO SCH (09:13)
[2017-02-06] MEDS: ESCITALOPRAM OXALATE 10 MG TABLET (FP) PO SCH (09:13)
[2017-02-06] MEDS ORDERED: METOPROLOL SUCCINATE 25 MG TAB.SR.24H (FP) PO SCH (10:00)
[2017-02-06 11:28] VITALS: TEMP 98.4
[2017-02-06] MEDS ORDERED: POLYETHYLENE GLYCOL 3350 119 GM BTL PO ONE (13:38)
[2017-02-06 14:28] VITALS: BP 131/75; PULSE 88
--- NOTE | 2017-02-06 14:52 | PN ---
Progress Note, Physician Chief Complaint: Pt ambulating slowly; no chest pain or dyspnea. No palpitations. History of Present Illness: The patient is a 71 year old female with a significant PMH of hyperlipidemia, hypertension, PUD, seizures, anxiety, and GERD who presents to the emergency department with a headache and chest pain. The patient states the chest pain started at 3PM yesterday and describes the chest pain as localized on the left, constant, and non-radiating. The pain is not exertional, not pleuritic. The patient states that she has had the same pain several times in the past, and she attributes it to anxiety. She is requesting medication for anxiety. Pt also endorses mild frontal headache that she states she has had several times before as well. Denies F/C. Denies neck pain. denies weakness/numbness/tingling. The patient denies shortness of breath. Denies palpitations. Denies nausea, vomit, diarrhea and constipation. Denies dysuria, frequency, urgency and hematuria. Allergies: NKA Past surgical history: brain - Current Medication List Current Medications: Active Medications Acetaminophen (Tylenol -) 650 mg PO Q6H PRN PRN Reason: FEVER OR PAIN Last Admin: 02/05/17 18:51 Dose: 650 mg Amitriptyline HCl (Elavil -) 25 mg PO BID [facility] Last Admin: 02/06/17 09:13 Dose: 25 mg Divalproex Sodium (Depakote -) 250 mg PO BID [facility] Last Admin: 02/06/17 09:13 Dose: 250 mg Escitalopram Oxalate (Lexapro -) 10 mg PO DAILY [facility] Last Admin: 02/06/17 09:13 Dose: 10 mg Gabapentin (Neurontin -) 300 mg PO HS [facility] Last Admin: 02/05/17 21:54 Dose: 300 mg Heparin Sodium (Porcine) (Heparin -) 5,000 unit SQ TID [facility] Last Admin: 02/06/17 13:39 Dose: 5,000 unit Metoprolol Succinate (Toprol Xl -) 25 mg PO DAILY [facility] Last Admin: 02/06/17 09:13 Dose: 25 mg Mirtazapine (Remeron -) 7.5 mg PO HS [facility] Last Admin: 02/05/17 21:55 Dose: 7.5 mg Pancrelipase (Creon Dr 36,000 Units Capsule) 1 cap PO TIDCM [facility] Last Admin: 02/06/17 11:36 Dose: 1 cap Quetiapine Fumarate (Seroquel -) 25 mg PO DAILY [facility] Last Admin: 02/06/17 09:13 Dose: 25 mg Ranitidine HCl (Zantac -) 300 mg PO HS [facility] Last Admin: 02/05/17 21:54 Dose: 300 mg Rifaximin (Xifaxan -) 550 mg PO TID [facility] Last Admin: 02/06/17 13:39 Dose: 550 mg - Objective Vital Signs: Vital Signs Temperature 98.4 F 02/06/17 14:00 Pulse Rate 88 02/06/17 14:00 Respiratory Rate 18 02/06/17 14:00 Blood Pressure 131/75 02/06/17 14:00 O2 Sat by Pulse Oximetry (%) 96 02/06/17 10:00 Labs: CBC, BMP 02/06/17 05:35 02/06/17 05:35 INR, PTT INR 1.00 (0.82-1.09) 02/03/17 17:00 Problem List - Problems (1) Acid reflux disease with ulcer Code(s): K21.9 - GASTRO-ESOPHAGEAL REFLUX DISEASE WITHOUT ESOPHAGITIS (2) Hyponatremia Assessment/Plan: improving Code(s): E87.1 - HYPO-OSMOLALITY AND HYPONATREMIA (3) Atypical chest pain Assessment/Plan: Prt's chest pain is reproduced on palpation of left breast. EKG: normal sinus rhythm; no acute STT changes. TNI <0.02. Consider breast US. Code(s): R07.89 - OTHER CHEST PAIN (4) Anxiety Assessment/Plan: on medications Code(s): F41.9 - ANXIETY DISORDER, UNSPECIFIED (5) Back pain Code(s): M54.9 - DORSALGIA, UNSPECIFIED (6) Chronic headache Code(s): R51 - HEADACHE Qualifiers: Headache type: tension-type Intractability: not intractable Qualified Code(s): G44.229 - Chronic tension-type headache, not intractable (7) Dyslipidemia Code(s): E78.5 - HYPERLIPIDEMIA, UNSPECIFIED (8) History of CVA (cerebrovascular accident) Assessment/Plan: s/p craniotomy years ago No acute changes on CT head. Code(s): Z86.73 - PRSNL HX OF TIA (TIA), AND CEREB INFRC W/O RESID DEFICITS (9) Vertigo Code(s): R42 - DIZZINESS AND GIDDINESS (10) Weakness Code(s): R53.1 - WEAKNESS (11) Dizzinesses Code(s): R42 - DIZZINESS AND GIDDINESS (12) PSVT (paroxysmal supraventricular tachycardia) Assessment/Plan: Telemetry: NSR; brief periods of PSVT. Recommend change from amlodipine to metoprolol, unless contraindications (e.g. asthma). Holter monitor placed; may be followed as outpatient. Code(s): I47.1 - SUPRAVENTRICULAR TACHYCARDIA
--- NOTE | 2017-02-06 17:54 | DS ---
Physical Exam: SUBJECTIVE: Patient seen and examined OBJECTIVE: Vital Signs Period Temp Pulse Resp BP Sys/Christensen Pulse Ox Last 24 Hr 97.7 F-98.8 F 83-118 18-18 119-144/67-77 96-96 PHYSICAL EXAM GENERAL: The patient is awake, alert, and fully oriented, in no acute distress. HEAD: Normal with no signs of trauma. EYES: PERRL, extraocular movements intact, sclera anicteric, conjunctiva clear. ENT: Ears normal, nares patent, oropharynx clear without exudates, moist mucous membranes. NECK: Trachea midline, full range of motion, supple. LUNGS: Breath sounds equal, clear to auscultation bilaterally, no wheezes, no crackles, no accessory muscle use. HEART: Regular rate and rhythm, S1, S2 without murmur, rub or gallop. ABDOMEN: Soft, nontender, nondistended, normoactive bowel sounds, no guarding, no rebound, no hepatosplenomegaly, no masses. EXTREMITIES: 2+ pulses, warm, well-perfused, no edema. NEUROLOGICAL: Cranial nerves II through XII grossly intact. Normal speech, gait not observed. PSYCH: Normal mood, normal affect. SKIN: Warm, dry, normal turgor, no rashes or lesions noted. LABS Laboratory Results - last 24 hr 02/06/17 02/06/17 05:35 05:35 WBC 4.7 RBC 3.98 Hgb 11.3 Hct 35.4 MCV 88.9 MCH 28.5 MCHC 32.0 RDW 16.1 H Plt Count 322 MPV 7.1 L Neutrophils % 58.7 Lymphocytes % 22.4 Monocytes % 14.1 H Eosinophils % 4.2 Basophils % 0.6 Sodium 137 Potassium 4.4 Chloride 102 Carbon Dioxide 27 Anion Gap 8 BUN 14 Creatinine 0.6 Creat Clearance w eGFR > 60 Random Glucose 85 Calcium 8.5 Total Bilirubin 0.4 D AST 24 ALT 39 Alkaline Phosphatase 154 H Total Protein 6.2 L Albumin 2.9 L HOSPITAL COURSE: Date of Admission:02/03/17 Date of Discharge: 02/06/17 admitting diagnosis:hyponatremia, atypical CP, acute hypoxia due to tachycardia Pre hospital course 71yo female with a PMHx of CVA (2009), HTN, HLD, Cataracts w/ corrective surgery , Seizures s/p Brain surgery left meningioma (1999), Chronic anemia, anxiety, GERD/PUD and chronic hyponatremia presents with head ache and chest pain. Chest pain is 6/10 constant pressure like substernal nonradiating that lasted for 1 day. Not associated with diaphoresis or dysnea on exertion. Her headache is bilateral frontal in nature with no photo or phono phobia. He was recently hospitalized for hyponatremia and discharged on 01/21/17. No seizures or confusion. Denies fever, chills, nausea, vomiting , recent illness or sick contacts. Subsequent hospital course admitted to [facility]. Continuous cardiac monitoring. cardiac markers neg x2. pt was placed on water restrictions and sodium resolved. evaluated by cardio. head CT negative. CTA was negative for PE. norvasc was switched to metoprolol with good response. hypoxia resolved and saturated 96% on RA. did not qualify for home O2. d/c home Minutes to complete discharge: 40 Discharge Summary Reason For Visit: HYPONATRTEMIA Current Active Problems Chest pain (Acute) Hyponatremia (Acute) Hyponatremia (Acute) PSVT (paroxysmal supraventricular tachycardia) (Acute) Condition: Improved - Instructions Diet, Activity, Other Instructions: You were admitted to the hospital due to low sodium which is likely because you were drinking too much water. LImit the amount of water you drink to about 1 liter per day You were also noted to be short of breath when walking and this was likely because your heart rate was too fast and your medication have been adjusted and those symptoms have gone away. Please refer to medication list as your home medications have changed FOllow up with your primary care doctor this week to check your blood pressure to make sure it is ok and that you dont require more medication Follow up with a industrial machine assembler in 2 weeks. Follow up wtih your psychiatrist about your mediction If your symptoms worsen return to the ER. Referrals: Shyam Vargas MD [Staff Physician] - Disposition: HOME - Home Medications Comprehensive Discharge Medication List: Ambulatory Orders Dexlansoprazole [Dexilant] 60 mg PO DAILY 03/10/16 Escitalopram Oxalate [Lexapro -] 10 mg PO DAILY 03/10/16 Amitriptyline HCl [Elavil -] 25 mg PO BID 12/15/16 Divalproex [Depakote -] 250 mg PO BID 12/15/16 Oxybutynin Chloride [Ditropan Xl] 15 mg PO DAILY 12/15/16 Quetiapine Fumarate [Seroquel -] 25 mg PO DAILY 12/15/16 Gabapentin 300 mg PO HS 01/19/17 Linaclotide [Linzess] 72 mcg PO DAILY 01/19/17 Lipase/Protease/Amylase [Kamari Nazario 36,000 Units Capsule] 1 each PO TID 01/19/17 Mirtazapine [Remeron -] 7.5 mg PO HS 01/19/17 Rifaximin [Xifaxan -] 550 mg PO TID 01/19/17 Sumatriptan Succinate [Imitrex -] 50 mg PO DAILY 01/19/17 Metoprolol Succinate [Toprol XL -] 25 mg PO DAILY #30 tab.sr.24h 02/06/17 This patient is new to me today: Yes Date on this admission: 02/06/17 Emergency Visit: Yes ED Registration Date: 02/03/17 Care time: The patient presented to the Emergency Department on the above date and was hospitalized for further evaluation of their emergent condition. Critical Care patient: No - Discharge Referral Referred to [facility] Med [facility].C.: No
--- NOTE | 2017-02-08 13:24 | EKG ---
Test Reason : Blood Pressure : / mmHG Vent. Rate : 091 BPM Atrial Rate : 091 BPM P-R Int : 156 ms QRS Dur : 084 ms QT Int : 380 ms P-R-T Axes : 045 006 023 degrees QTc Int : 467 ms NORMAL SINUS RHYTHM NORMAL ECG WHEN COMPARED WITH ECG OF 03-FEB-2017 15:23, NO SIGNIFICANT CHANGE WAS FOUND Confirmed by ANNITA VENTURA MD ([id number]) on 02/08/2017 1:24:26 PM Referred By: Confirmed By:ANNITA VENTURA MD
--- NOTE | 2017-02-08 15:38 | HOL ---
Hook-up date: 2017-02-05 14:11:00 Duration: 24:00:00 Test Indications: R/O AF Medications: 53698 QRS complexes * Ventricular ectopics which represent % of total QRS comp. 47 Supraventricular ectopics which represent <1 % of total QRS comp. * Paced QRS complexs which represent % of total QRS comp. 21 % of Time Classified as Noise VENTRICULAR ECTOPY * Isolated * Bigeminal Cycles * Couplets * Runs * Beats in Runs * Beats LONGEST at * BPM at :: -- * Beats FASTEST at * BPM at :: -- SUPRAVENTRICULAR ECTOPY 28 Isolated 0 Couplets 4 Runs 19 Beats in Runs 8 Beats LONGEST at 141 BPM at 22:10:30 2017-02-05 4 Beats FASTEST at 149 BPM at 11:04:15 2017-02-06 HEART RATES 64 MIN at 01:48:18 2017-02-06 83 AVG 121 MAX at 08:20:04 2017-02-06 LONGEST RR 1.072 secs at 01:48:14 2017-02-06 SCANNED BY YOHAN NOVOA ON 02/07/17 1. PREDOMINATELY NORMAL SINUS RHYTHM. 2. OCCASIONAL ATRIAL PREMATURE CONTRACTIONS. 3. OCCASIONAL RUNS OF ATRIAL TACHYCARDIA; THE LONGEST SEEN WAS 8 BEATS. 4. THERE WERE NO PAUSES. Confirmed by MD Alberto, Kirit ([id number]), video effects editor TIMOTEO PARRA ([id number]) on 02/08/2017 3:38:18 PM Referred By: JOSSIE CALHOUN DR Overread By: Kirit Dominguez MD
== END 2017-02-06 17:47 | disposition home or self-care (01) | DRG 641 ==
LOC: JER 15:19 → JERBED 19:47 → UNDOADMIN 19:57 → J4S 22:14 → JERBED 02-05 17:22 → J4S 02-05 17:25
PROVIDERS: ADMIT Internal Medicine; ATTEND Internal Medicine
DX: E87.1 Hypo-osmolality and hyponatremia (principal); I47.1 Supraventricular tachycardia; E11.9 Type 2 diabetes mellitus without complications; E78.5 Hyperlipidemia, unspecified; K21.9 Gastro-esophageal reflux disease without esophagitis; R00.0 Tachycardia, unspecified; R07.89 Other chest pain; Z86.73 Personal history of transient ischemic attack (TIA), and cerebral infarction without residual deficits; M54.9 Dorsalgia, unspecified; R51 Headache; R53.1 Weakness; R42 Dizziness and giddiness; F41.8 Other specified anxiety disorders
CPT/HCPCS: 36415; 70450-TC; 71020-TC; 71275-TC; 80048; 80053; 81003; 81015; 82436; 82550; 82570; 83735; 83880; 83930; 83935; 84100; 84133; 84300; 84443; 84484; 85025; 85610; 87804; 93005; 93010; 93225; 93226; 94761; 99283-25; J1644

== ENCOUNTER 2017-05-07 12:07 | Emergency (ER) | payer OTHER ==
[2017-05-07 12:28] VITALS: TEMP 98.4; BMI 26.9
[2017-05-07] MEDS ORDERED: ONDANSETRON 4 MG/2 ML VIAL IVPUSH ONE ×2 (12:46→13:56)
[2017-05-07] MEDS ORDERED: FAMOTIDINE 20 MG/50 ML IVPB 20 MG/50 ML MG IVPB ONE ×2 (12:46→13:22)
[2017-05-07] MEDS ORDERED: SODIUM CHLORIDE 1,000 ML IV STA (12:46)
--- NOTE | 2017-05-07 12:46 | PDOC ---
History of Present Illness - General Chief Complaint: Pain Stated Complaint: ABD PAIN, HEADACHES Time Seen by Provider: 05/07/17 12:30 - History of Present Illness Initial Comments: 05/07/17 12:56 The patient is a 71 year old female with a history of HTN, HLD, GERD, Peptic Ulcer, Seizures, Menigioma, Hyponatremia who presents for evaluation of headache , nausea, abdominal pain. The patient reports a 3 day history of poorly described epigastric abdominal pain with associated nausea and episodes of non- bilious, non-bloody vomiting. She reports limited PO intake over the past 3 days prompting her presentation to the ED for evaluation. She also notes a mild headache throughout this time similar to her prior migraines for which she has been taking tylenol. She also notes that she has been drinking more coffee than normal which has exacerbated her abdominal pain. She otherwise denies fevers, chills, SOB, chest pain, or changes with urination or bowel movements. Past History - Past Medical History Allergies/Adverse Reactions: Allergies Allergy/AdvReac Type Severity Reaction Status Date / Time aspirin Allergy Severe "NERVOUS" Verified 05/07/17 12:27 morphine Allergy Severe "ANXIETY-DE Verified 05/07/17 12:27 SPERATION" Home Medications: Ambulatory Orders Dexlansoprazole [Dexilant] 60 mg PO DAILY 03/10/16 Escitalopram Oxalate [Lexapro -] 10 mg PO DAILY 03/10/16 Divalproex [Depakote -] 250 mg PO BID 12/15/16 Oxybutynin Chloride [Ditropan Xl] 15 mg PO DAILY 12/15/16 Quetiapine Fumarate [Seroquel -] 25 mg PO DAILY 12/15/16 Gabapentin 300 mg PO HS 01/19/17 Linaclotide [Linzess] 72 mcg PO DAILY 01/19/17 Lipase/Protease/Amylase [Kamari Nazario 36,000 Units Capsule] 1 each PO TID 01/19/17 Rifaximin [Xifaxan -] 550 mg PO TID 01/19/17 Sumatriptan Succinate [Imitrex -] 50 mg PO DAILY 01/19/17 Metoprolol Succinate [Toprol XL -] 25 mg PO DAILY #30 tab.sr.24h 02/06/17 Escitalopram Oxalate [Lexapro -] 10 mg PO DAILY #30 tablet 04/09/17 Metoprolol Succinate [Toprol XL -] 25 mg PO DAILY #30 tab.sr.24h 04/09/17 Famotidine [Pepcid -] 20 mg PO DAILY #14 tablet 05/07/17 Anemia: Yes Asthma: No Cancer: No Cardiac Disorders: No 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, baseline confusion and dizziness) COPD: No CHF: No Dementia: No Diabetes: No GI Disorders: Yes (gerd, gastric ulcer, dysphagia) Disorders: Yes (kidney stone in the past) HTN: Yes Hypercholesterolemia: Yes Liver Disease: No Psychiatric Problems: Yes (ANXIETY DEPRESSION) Seizures: Yes (S/P craniotomy for benign tumor - on Depakote for seizure prophylaxis) Thyroid Disease: No - Surgical History Abdominal Surgery: Yes Appendectomy: No Cardiac Surgery: No Cholecystectomy: Yes Lung Surgery: No Neurologic Surgery: Yes (removal left meningioma) Orthopedic Surgery: Yes (Bilateral knee replacement) - Immunization History Td Vaccination: Yes TDAP Vaccination: No Immunization Up to Date: No - Suicide/Smoking/Psychosocial Hx Smoking Status: No Smoking History: Never smoked Have you smoked in the past 12 months: No Number of Cigarettes Smoked Daily: 0 Cigars Per Day: 0 Hx Alcohol Use: No Drug/Substance Use Hx: No Substance Use Type: None Hx Substance Use Treatment: No Review of Systems - Review of Systems Comments:: 05/07/17 12:59 Constitutional: No fevers, chills, fatigue, malaise HEENT: No Rhinorrhea, nasal congestion, visual changes Cardiovascular: No chest pain, syncope, palpitations, lightheadedness Respiratory: No Cough, SOB, Hemoptysis, Gastrointestinal: Abdominal pain, Nausea, Vomiting. No Constipation, Diarrhea, Melena Genitourinary: No Dysuria, Frequency, Urgency, Hesitancy, Hematuria, Flank pain Musculoskeletal: No Myalgia, arthralgia Skin: No rashes, itching, bruising, pallor Neurologic: Headache. No Dizziness, Numbness, Weakness, or Tingling Psychiatric: No Hallucinations. No SI or HI *Physical Exam - Vital Signs Last Vital Signs Temp Pulse Resp BP Pulse Ox 98.4 F 79 18 144/73 97 05/07/17 12:22 05/07/17 12:22 05/07/17 12:22 05/07/17 12:22 05/07/17 12:22 - Physical Exam Comments: 05/07/17 13:00 General Appearance: Nourished. No Apparent Distress HEENT: EOMI, KARL. No Pharyngeal Erythema, Tonsillar Exudate, Tonsillar Erythema Neck: No Cervical Lymphadenopathy Respiratory/Chest: Lungs Clear, Normal Breath Sounds. No Crackles, Rales, Rhonchi, Wheezing Cardiovascular: Regular Rhythm, Regular Rate. No Murmur, Gallops, Rubs Gastrointestinal/Abdominal: Normal Bowel Sounds, Soft. Epigastric tenderness to palpation on exam. No Guarding, Rebound, Musculoskeletal: No CVA Tenderness Extremity: Normal Capillary Refill Integumentary: Normal Color, Dry, Warm Neurologic: business director II-XII NML intact, Fully Oriented, Alert, Normal Mood/Affect, Normal Response, Motor Strength 5/5. Heart Score/ECG Review #1 ECG reviewed & interpreted by me at: 13:52 General ECG Interpretation: Sinus Rhythm, Normal Rate, Normal Intervals, No acute ischemic changes ED Treatment Course - LABORATORY CBC & Chemistry Diagram: 05/07/17 13:00 05/07/17 13:00 Medical Decision Making - Medical Decision Making 05/07/17 13:00 The patient is a 71 year old female with a history of HTN, HLD, GERD, Peptic Ulcer, Seizures, Menigioma, Hyponatremia who presents for evaluation of headache , nausea, abdominal pain. Differential includes but is not limited to: ACS, Pancreatitis, Gastritis, GERD, infectious, metabolic derangement. The patient is s/p cholecystectomy as well making gallbladder pathology unlikely. Given her history of Gastritis and physical exam, it is likely her symptoms are due to gastritis or GERD. However, we will obtain a cbc, cmp, lipase, troponin, ekg , ua to evaluate further for possible etiologies. We will treat with reglan, pepcid, mylanta, and iv fluids in the meantime. We will continue to monitor and reassess. 05/07/17 14:17 CBC, cmp, troponin, lipase, ua are unremarkable. The patient reports significant improvement in her symptoms and is requesting discharge home. We are comfortable discharging the patient home at this time with primary care provider follow up. We discussed the results, plan, and return precautions with the patient who voiced understanding and is agreeable with the plan. *DC/Admit/Observation/Transfer Diagnosis at time of Disposition: Epigastric abdominal pain GERD (gastroesophageal reflux disease) Qualifiers: Esophagitis presence: esophagitis presence not specified Qualified Code(s): K21.9 - Gastro-esophageal reflux disease without esophagitis - Discharge Dispostion Disposition: HOME Condition at time of disposition: Good Admit: No - Prescriptions Prescriptions: Famotidine [Pepcid -] 20 mg PO DAILY #14 tablet - Referrals Referrals: Waldo Mabry MD [Primary Care Provider] - - Patient Instructions Printed Discharge Instructions: DI for Gastroesophageal Reflux Disease (GERD), DI for Gastritis Additional Instructions: Please return to the ER if you experience concerning or worsening symptoms including worsening abdominal pain, vomiting, difficulty breathing, or fevers. Your lab results were normal here in the ER. Your symptoms are likely due to gastritis or GERD. We have sent a prescription for Pepcid that you should take daily to help manage your symptoms. It is important that you call to schedule a follow up appointment with your primary care provider within 2-3 days to discuss your ER visit and further management of your symptoms. Por favor, regrese a la leah de emergencias si experimenta problemas o empeoramiento de los sntomas incluyendo empeoramiento del dolor abdominal, v mitos, dificultad para respirar o fiebres. Los resultados de tu laboratorio fueron normales aqu en urgencias. Rajani s ntomas son probables debido a la gastritis o Gerd. Hemos enviado tavo prescripci n para Pepcid que usted debe marleni diariamente para ayudar a manejar rajani s ntomas. Es importante que usted llame para programar tavo jihan de seguimiento con perla proveedor de atencin primaria en un plazo de 2-3 lucio para discutir perla visita de urgencias y la administracin adicional de rajani sntomas. Print Language: CITIZEN OF [place] - Post Discharge Activity
[2017-05-07] MEDS ORDERED: MAG HYDROX/AL HYDROX/SIMETH 30 ML UNIT-DOSE CUP PO ONE (12:47)
[2017-05-07] MEDS ORDERED: METOCLOPRAMIDE HCL INJECTION 10 MG/2 ML VIAL IVPUSH ONE (12:54)
--- NOTE | 2017-05-07 12:56 | PDOC ---
Attending Attestation - Resident Resident Name: Kirit Da Silva - ED Attending Attestation I have performed the following: I have examined & evaluated the patient, The case was reviewed & discussed with the resident, I agree w/resident's findings & plan, Exceptions are as noted - HPI HPI: 05/07/17 12:48 71y F hx of anemia, gerd, gastric ulcer, mengioma s/p resection presents with complaint of nausea, nbnb vomiting, epgiastric abd pain x 3 days with associated mild gradulal onset frontal headache. headache cw prior migraines. no associated vision changes, nmbness tingling weakness, neck pain, cp, back pain, fever/chills. no sick contacts, new meds. - Physicial Exam PE: 05/07/17 13:51 GENERAL: The patient is awake, alert, and fully oriented, Nontoxic - in no acute distress. HEAD: Normocephalic, atraumatic. EYES: extraocular movements intact, sclera anicteric, conjunctiva clear. ENT: Normal voice, Moist mucous membranes. NECK: Normal range of motion, supple LUNGS: Breath sounds equal, clear to auscultation bilaterally. No wheezes, no rhonchi, no rales. HEART: Regular rate and rhythm, normal S1 and S2 without murmur, rub or gallop. ABDOMEN: Soft, mild epigasric tendenress, normoactive bowel sounds. EXTREMITIES: Normal range of motion, no edema. NEUROLOGICAL: No facial assymetry, Normal speech, PSYCH: Normal mood, normal affect. SKIN: Warm, Dry, normal turgor, - Medical Decision Making 05/07/17 13:51 Differential for the patient's symptoms include possible pancreatitis, gastritis , consider acs will send ekg, trop will treat pt sypmtmatically with fluids, antiemetic, antacid Heart Score/ECG Review - ECG Impressions Comment:: 05/07/17 14:03 Twelve-lead EKG was performed and reviewed by me. There is normal sinus rhythm with a normal rate. rate of 73 The intervals are normal. There is normal R wave progression There are no ST or T wave abnormalities.
[2017-05-07 13:13] LABS: BASO % 0.8 % (0-2.0); EOS % 1.5 % (0-4.5); HEMATOCRIT 34.7 % (32.4-45.2); HEMOGLOBIN 11.1 GM/dL (10.7-15.3); LYMPH % 25.3 % (8-40); MCH 25.1 pg (25.7-33.7); MEAN CELL VOLUME 78.3 fl (80-96); MEAN PLT VOLUME 7.2 fl (7.5-11.1); NEUT % 58.4 % (42.8-82.8); PLATELET COUNT 341 K/MM3 (134-434); RBC 4.44 M/mm3 (3.60-5.2); RDW 18.4 % (11.6-15.6)
[2017-05-07] MEDS ORDERED: METOCLOPRAMIDE HCL INJECTION 10 MG/2 ML VIAL ONE (13:21)
[2017-05-07] MEDS ORDERED: MAG HYDROX/AL HYDROX/SIMETH 30 ML UNIT-DOSE CUP ONE (13:21)
[2017-05-07 13:38] LABS: ALBUMIN 3.3 g/dl (3.4-5.0); ANION GAP 8 (8-16); BILIRUBIN,TOTAL 0.3 mg/dL (0.2-1.0); BLOOD UREA NITROGEN 20 mg/dL (7-18); CALCIUM 8.5 mg/dL (8.5-10.1); CHLORIDE 97 mmol/L (98-107); CO2 28 mmol/L (21-32); CREATININE 0.6 mg/dL (0.55-1.02); GLUCOSE,RANDOM 92 mg/dL (74-106); LIPASE 80 U/L (73-393); POTASSIUM 4.9 mmol/L (3.5-5.1); SGOT/AST 36 U/L (15-37); SGPT/ALT 43 U/L (12-78); SODIUM 133 mmol/L (136-145); TOT PROT 7.2 g/dl (6.4-8.2)
[2017-05-07 13:41] LABS: ALK PHOS 203 U/L (45-117)
[2017-05-07 13:56] LABS: URINE APPEARANCE CLEAR; URINE BILIRUBIN NEGATIVE (<2.0 mg/dL); URINE BLOOD 2+ (NEGATIVE); URINE COLOR YELLOW; URINE GLUCOSE (UA) NEGATIVE (NEGATIVE); URINE KETONE NEGATIVE (NEGATIVE); URINE LEUK ESTERASE NEGATIVE (NEGATIVE); URINE NITRITE NEGATIVE (NEGATIVE); URINE PROTEIN NEGATIVE (NEGATIVE); URINE UROBILINOGEN NEGATIVE mg/dL (0.2-1.0)
[2017-05-07] MEDS ORDERED: ONDANSETRON 4 MG/2 ML VIAL ONE (13:57)
[2017-05-07 14:00] LABS: EPI CELLS RARE /HPF (FEW); URINE BACTERIA MANY /hpf (NONE SEEN); URINE MUCUS FEW
[2017-05-07 14:36] VITALS: BP 141/70; PULSE 82
--- NOTE | 2017-05-07 21:18 | EKG ---
Test Reason : Blood Pressure : / mmHG Vent. Rate : 073 BPM Atrial Rate : 073 BPM P-R Int : 162 ms QRS Dur : 074 ms QT Int : 416 ms P-R-T Axes : 033 -02 013 degrees QTc Int : 458 ms NORMAL SINUS RHYTHM MINIMAL VOLTAGE CRITERIA FOR LVH, MAY BE NORMAL VARIANT BORDERLINE ECG WHEN COMPARED WITH ECG OF 06-APR-2017 11:40, NO SIGNIFICANT CHANGE WAS FOUND Confirmed by MITCH HEREDIA MD ([id number]) on 05/07/2017 9:18:15 PM Referred By: Confirmed By:MITCH HEREDIA MD
== END 2017-05-07 14:55 | disposition home or self-care (01) ==
LOC: JER 12:07
PROC: 3E033GC Introduction of Other Therapeutic Substance into Peripheral Vein, Percutaneous Approach (ICD-10-PCS; principal; 2017-05-07)
PROC: 3E033GC Introduction of Other Therapeutic Substance into Peripheral Vein, Percutaneous Approach (ICD-10-PCS; 2017-05-07)
PROC: 3E033GC Introduction of Other Therapeutic Substance into Peripheral Vein, Percutaneous Approach (ICD-10-PCS; 2017-05-07)
DX: K21.9 Gastro-esophageal reflux disease without esophagitis (principal); I10 Essential (primary) hypertension; E78.00 Pure hypercholesterolemia, unspecified; G40.909 Epilepsy, unspecified, not intractable, without status epilepticus; Z87.11 Personal history of peptic ulcer disease; I69.893 Ataxia following other cerebrovascular disease; I69.818 Other symptoms and signs involving cognitive functions following other cerebrovascular disease; Z96.653 Presence of artificial knee joint, bilateral
CPT/HCPCS: 36415; 80053; 81003; 81015; 82550; 83690; 84484; 85025; 93005; 93010; 96365; 96375; 99283-25; J7030

== ENCOUNTER 2017-05-14 19:21 | Emergency (ER) | payer OTHER ==
[2017-05-14 19:28] VITALS: TEMP 98.5; BMI 36.9
--- NOTE | 2017-05-14 19:33 | PDOC ---
History of Present Illness - History of Present Illness Initial Comments: 05/14/17 19:58 71 year old female with pmhx of brain tumor, gastric ulcer, BP, asthma, presented to the hospital with one day history of chest pain 9/10 , pressure like continuous , radiating to her back not improved with Tylenol , worsen with movement , she denies any sob, couphing, fever, chills, she reports some nausea but no vomiting , denies nay fever, chills, recent cold. she reports headache b/ l pulsating, 9/10 , and little dizziness when she get up. she also reports abdominal pain mid epigastric local non radiating , continuous worse than the chest pain and associated with constipation but denies any vomiting. she denies any urinary symptoms dysuria, hematuria , she denies any swelling in her feet. PMHx: anxiety, gastric ulcer, BP , asthma PSH: left brain tumor, cholecystectomy, B/L knee surgeries Allergies: Aspirins and morphine social: previous smoker, denies alcohol or drugs Physical exam: Vital Signs Temp Pulse Resp BP Pulse Ox 98.5 F 101 H 20 131/72 96 05/14/17 19:26 05/14/17 19:26 05/14/17 19:26 05/14/17 19:26 05/14/17 19:26 General: Wel nourished in NAD , AAOx 3 Head: NC/AT ENT: MMM, JEWEL, EOMI Neck: supple FROM Heart: RRR, No MRG Lungs: CTA B/L , mild right side base wheezes. tender to palpation the breast B/ L Abdomen: obese, soft, distended, TTP in mid epigastric area. +BS , surgical scar Legs: no edema +2 DP Neuro: No focal deficit , CNII-XII Grossly intact , sensation intact, reflexes intact Skin: warm and dry DD: seems atypical chest pain but Will R/O NV or PE for abdominal pain will do lipase for pancreatitis will give protonix for gastric ulcer Work UP cardiac profile EKG Chest pain Lipase CBC, CMP 05/14/17 20:11 05/14/17 20:24 EKG : NSR with no St,T wave changes , QTC 447. 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, baseline confusion and dizziness) COPD: No CHF: No Dementia: No Diabetes: No GI Disorders: Yes (gerd, gastric ulcer, dysphagia) Disorders: Yes (kidney stone in the past) HTN: Yes Hypercholesterolemia: Yes Liver Disease: No Psychiatric Problems: Yes (ANXIETY DEPRESSION) Seizures: Yes (S/P craniotomy for benign tumor - on Depakote for seizure prophylaxis) Thyroid Disease: No - Surgical History Abdominal Surgery: Yes Appendectomy: No Cardiac Surgery: No Cholecystectomy: Yes Lung Surgery: No Neurologic Surgery: Yes (removal left meningioma) Orthopedic Surgery: Yes (Bilateral knee replacement) - Immunization History Td Vaccination: Yes TDAP Vaccination: No Immunization Up to Date: No - Suicide/Smoking/Psychosocial Hx Smoking Status: No Smoking History: Never smoked Have you smoked in the past 12 months: No Number of Cigarettes Smoked Daily: 0 Cigars Per Day: 0 Hx Alcohol Use: No Drug/Substance Use Hx: No Substance Use Type: None Hx Substance Use Treatment: No <Carlyle Arguello - Last Filed: 05/14/17 20:24> <Florinda Gallagher - Last Filed: 05/15/17 02:06> - Past Medical History Allergies/Adverse Reactions: Allergies Allergy/AdvReac Type Severity Reaction Status Date / Time aspirin Allergy Severe "NERVOUS" Verified 05/14/17 19:26 morphine Allergy Severe "ANXIETY-DE Verified 05/14/17 19:26 SPERATION" Home Medications: Ambulatory Orders Dexlansoprazole [Dexilant] 60 mg PO DAILY 03/10/16 Escitalopram Oxalate [Lexapro -] 10 mg PO DAILY 03/10/16 Divalproex [Depakote -] 250 mg PO BID 12/15/16 Oxybutynin Chloride [Ditropan Xl] 15 mg PO DAILY 12/15/16 Quetiapine Fumarate [Seroquel -] 25 mg PO DAILY 12/15/16 Gabapentin 300 mg PO HS 01/19/17 Linaclotide [Linzess] 72 mcg PO DAILY 01/19/17 Lipase/Protease/Amylase [Kamari Nazario 36,000 Units Capsule] 1 each PO TID 01/19/17 Rifaximin [Xifaxan -] 550 mg PO TID 01/19/17 Sumatriptan Succinate [Imitrex -] 50 mg PO DAILY 01/19/17 Metoprolol Succinate [Toprol XL -] 25 mg PO DAILY #30 tab.sr.24h 02/06/17 Famotidine [Pepcid -] 20 mg PO DAILY #14 tablet 05/07/17 *Physical Exam - Vital Signs Last Vital Signs Temp Pulse Resp BP Pulse Ox 98.5 F 101 H 20 131/72 96 05/14/17 19:26 05/14/17 19:26 05/14/17 19:26 05/14/17 19:26 05/14/17 19:26 <Carlyle Arguello - Last Filed: 05/14/17 20:24> - Vital Signs Last Vital Signs Temp Pulse Resp BP Pulse Ox 98.5 F 101 H 20 131/72 96 05/14/17 19:26 05/14/17 19:26 05/14/17 19:26 05/14/17 19:26 05/14/17 19:26 <Florinda Gallagher - Last Filed: 05/15/17 02:06> ED Treatment Course - LABORATORY CBC & Chemistry Diagram: 05/14/17 20:33 05/14/17 20:33 - ADDITIONAL ORDERS Additional order review: Laboratory Results 05/15/17 05/14/17 05/14/17 00:54 20:55 20:33 PT with INR INR Sodium 133 L Potassium 4.8 Chloride 99 Carbon Dioxide 29 Anion Gap 5 L BUN 12 Creatinine 0.6 Creat Clearance w eGFR > 60 Random Glucose 95 Calcium 8.4 L Magnesium 2.2 Total Bilirubin 0.2 D AST 20 ALT 29 Alkaline Phosphatase 185 H Creatine Kinase 63 58 Troponin I < 0.02 < 0.02 B-Natriuretic Peptide 254.76 H Total Protein 6.6 Albumin 3.1 L Lipase 98 Urine Color Straw Urine Appearance Clear Urine pH 7.0 Ur Specific [place] 1.008 Urine Protein Negative Urine Glucose (UA) Negative Urine Ketones Negative Urine Blood 2+ H Urine Nitrite Negative Urine Bilirubin Negative Urine Urobilinogen Negative Ur Leukocyte Esterase Negative Urine WBC (Auto) 1 Urine RBC (Auto) <1 Ur Epithelial Cells Rare Urine Bacteria Rare 05/14/17 20:33 PT with INR 11.80 INR 1.04 Sodium Potassium Chloride Carbon Dioxide Anion Gap BUN Creatinine Creat Clearance w eGFR Random Glucose Calcium Magnesium Total Bilirubin AST ALT Alkaline Phosphatase Creatine Kinase Troponin I B-Natriuretic Peptide Total Protein Albumin Lipase Urine Color Urine Appearance Urine pH Ur Specific [place] Urine Protein Urine Glucose (UA) Urine Ketones Urine Blood Urine Nitrite Urine Bilirubin Urine Urobilinogen Ur Leukocyte Esterase Urine WBC (Auto) Urine RBC (Auto) Ur Epithelial Cells Urine Bacteria 05/14/17 20:33 RBC 4.32 MCV 78.2 L MCHC 32.4 RDW 18.7 H MPV 7.4 L Neutrophils % 48.1 Lymphocytes % 30.3 Monocytes % 17.8 H Eosinophils % 3.1 D Basophils % 0.7 - Medications Given in the ED: ED Medications Discontinued Medications Generic Name Dose Route Start Last Admin Trade Name Yonathanq PRN Reason Stop Dose Admin Acetaminophen 1,000 mg 05/14/17 20:11 05/14/17 20:42 Ofirmev Injection - IVPB 05/14/17 20:12 1,000 mg ONCE ONE Administration Pantoprazole Sodium 40 mg 05/14/17 20:10 05/14/17 20:42 Protonix Iv IVPUSH 05/14/17 20:11 40 mg ONCE ONE Administration <Florinda Gallagher - Last Filed: 05/15/17 02:06> *DC/Admit/Observation/Transfer <Carlyle Arguello - Last Filed: 05/14/17 20:24> <Florinda Gallagher - Last Filed: 05/15/17 02:06> Diagnosis at time of Disposition: Atypical chest pain - Discharge Dispostion Disposition: HOME Condition at time of disposition: Stable - Referrals Referrals: Waldo Mabry MD [Primary Care Provider] - - Patient Instructions Printed Discharge Instructions: DI for Atypical Chest Pain Additional Instructions: please follow up with your regular doctor this week Return for any worsening symptoms - Post Discharge Activity
[2017-05-14] MEDS ORDERED: PANTOPRAZOLE SODIUM 40 MG VIAL IVPUSH ONE (20:10)
[2017-05-14] MEDS ORDERED: ACETAMINOPHEN 1000 MG/100 ML VIAL (NON FORMULARY) IVPB ONE (20:11)
[2017-05-14] MEDS ORDERED: PANTOPRAZOLE SODIUM 40 MG VIAL ONE (20:16)
[2017-05-14] MEDS ORDERED: ACETAMINOPHEN INJECTION 100 ML IVPB ONE (20:16)
[2017-05-14 20:41] LABS: BASO % 0.7 % (0-2.0); EOS % 3.1 % (0-4.5); HEMATOCRIT 33.8 % (32.4-45.2); HEMOGLOBIN 10.9 GM/dL (10.7-15.3); LYMPH % 30.3 % (8-40); MCH 25.3 pg (25.7-33.7); MCHC 32.4 g/dl (32.0-36.0); MEAN CELL VOLUME 78.2 fl (80-96); MEAN PLT VOLUME 7.4 fl (7.5-11.1); MONO % 17.8 % (3.8-10.2); NEUT % 48.1 % (42.8-82.8); PLATELET COUNT 254 K/MM3 (134-434); RBC 4.32 M/mm3 (3.60-5.2); RDW 18.7 % (11.6-15.6); WHITE BLOOD COUNT 3.6 K/mm3 (4.0-10.0)
[2017-05-14 20:54] LABS: INR 1.04 (0.82-1.09); PROTHROMBIN TIME (PATIENT) 11.8 SEC (9.98-11.88)
[2017-05-14 21:08] LABS: URINE APPEARANCE CLEAR; URINE BILIRUBIN NEGATIVE (<2.0 mg/dL); URINE BLOOD 2+ (NEGATIVE); URINE COLOR STRAW; URINE GLUCOSE (UA) NEGATIVE (NEGATIVE); URINE KETONE NEGATIVE (NEGATIVE); URINE LEUK ESTERASE NEGATIVE (NEGATIVE); URINE NITRITE NEGATIVE (NEGATIVE); URINE PROTEIN NEGATIVE (NEGATIVE); URINE UROBILINOGEN NEGATIVE mg/dL (0.2-1.0)
[2017-05-14 21:12] LABS: EPI CELLS RARE /HPF (FEW); URINE BACTERIA RARE /hpf (NONE SEEN)
[2017-05-14 21:12] LABS: ALBUMIN 3.1 g/dl (3.4-5.0); ANION GAP 5 (8-16); BLOOD UREA NITROGEN 12 mg/dL (7-18); CALCIUM 8.4 mg/dL (8.5-10.1); CHLORIDE 99 mmol/L (98-107); CO2 29 mmol/L (21-32); GLUCOSE,RANDOM 95 mg/dL (74-106); LIPASE 98 U/L (73-393); MAGNESIUM 2.2 mg/dL (1.8-2.4); POTASSIUM 4.8 mmol/L (3.5-5.1); SODIUM 133 mmol/L (136-145)
[2017-05-14 21:18] LABS: ALK PHOS 185 U/L (45-117); BILIRUBIN,TOTAL 0.2 mg/dL (0.2-1.0); CREATININE 0.6 mg/dL (0.55-1.02); N-TERMINAL BNP 254.76 pg/ml (5-125); SGOT/AST 20 U/L (15-37); SGPT/ALT 29 U/L (12-78); TOT PROT 6.6 g/dl (6.4-8.2)
--- NOTE | 2017-05-15 01:13 | PDOC ---
Attending Attestation - Resident Resident Name: Carlyle Arguello - ED Attending Attestation I have performed the following: I have examined & evaluated the patient, The case was reviewed & discussed with the resident, I agree w/resident's findings & plan, Exceptions are as noted - HPI HPI: 05/15/17 01:12 71 yo female with complaint of continuous chest pain for last 24 hours and palpitations -the pain is diffuse across her chest and also her breasts are sore to touch - - Physicial Exam PE: 05/15/17 16:37 petite 71 yo female p/w 24 hours of continuous chest pian head ncat neck no jvd lungs cta b/l cvs [id number] abd soft ext no pitting edema neuro axox3,ambulatory - Medical Decision Making 05/15/17 16:44 pt discharged after cards observation,she had 2 negative cards enzyme
[2017-05-15 02:24] VITALS: BP 134/85; PULSE 86
--- NOTE | 2017-05-15 11:34 | EKG ---
Test Reason : Blood Pressure : / mmHG Vent. Rate : 085 BPM Atrial Rate : 085 BPM P-R Int : 154 ms QRS Dur : 076 ms QT Int : 376 ms P-R-T Axes : 047 010 042 degrees QTc Int : 447 ms NORMAL SINUS RHYTHM NORMAL ECG WHEN COMPARED WITH ECG OF 07-MAY-2017 13:11, NO SIGNIFICANT CHANGE WAS FOUND Confirmed by J LUIS POWELL MD ([id number]) on 05/15/2017 11:33:37 AM Referred By: Confirmed By:J LUIS POWELL MD
== END 2017-05-15 02:24 | disposition home or self-care (01) ==
LOC: JER 19:21
DX: R07.89 Other chest pain (principal); R00.2 Palpitations; R06.2 Wheezing; I10 Essential (primary) hypertension; F41.8 Other specified anxiety disorders; I69.893 Ataxia following other cerebrovascular disease; Z87.19 Personal history of other diseases of the digestive system; Z87.442 Personal history of urinary calculi; Z88.6 Allergy status to analgesic agent; Z88.8 Allergy status to other drugs, medicaments and biological substances
CPT/HCPCS: 36415; 71046-TC-FY; 80053; 81003; 81015; 82550; 83690; 83735; 83880; 84484; 85025; 85610; 93005; 93010; 99281-25; J0131

== ENCOUNTER 2017-05-22 19:53 | Emergency (ER) | payer OTHER ==
[2017-05-22 20:11] VITALS: BP 142/95; PULSE 93; TEMP 98.4; BMI 35.2
[2017-05-22] MEDS ORDERED: diphenhydrAMINE HCL 25 MG CAPSULE (FP) PO ONE (23:50)
--- NOTE | 2017-05-22 23:56 | PDOC ---
History of Present Illness - General Chief Complaint: Chest Pain Stated Complaint: CHEST PAIN Time Seen by Provider: 05/22/17 22:57 - History of Present Illness Initial Comments: 05/23/17 00:50 The patient is a 71 year old female with a significant PMH of brain tumor status post surgery, gastric ulcer, hypertension, and asthma who presents to the emergency department with anxiety that began at approximately 12PM today. Pt was recently admitted for atypical chest pain and was discharged on 05/17. The patient denies chest pain today. She states that she feels very restless and states that she feels as if she could run out of the building at any moment. She denies palpitations. Denies SOB. Denies F/C. Denies any other complaints. She states that she has had these feelings of anxiety in the past and was given medication by her PMD, but she does not recall what medication that was. She is not currently taking anything for anxiety. The patient denies chest pain, shortness of breath, headache and dizziness. Denies fever, chills, nausea, vomit, diarrhea and constipation. Denies dysuria, frequency, urgency and hematuria. Allergies: NKA Past surgical history: Cholecystectomy, knee surgery, left brain tumor removal. Social history: No reported alcohol, drug, or cigarette use. PCP: Dr. Morgan " Past History - Past Medical History Allergies/Adverse Reactions: Allergies Allergy/AdvReac Type Severity Reaction Status Date / Time aspirin Allergy Severe "NERVOUS" Verified 05/22/17 20:10 morphine Allergy Severe "ANXIETY-DE Verified 05/22/17 20:10 SPERATION" Home Medications: Ambulatory Orders Dexlansoprazole [Dexilant] 60 mg PO DAILY 03/10/16 Escitalopram Oxalate [Lexapro -] 10 mg PO DAILY 03/10/16 Divalproex [Depakote -] 250 mg PO BID 12/15/16 Oxybutynin Chloride [Ditropan Xl] 15 mg PO DAILY 12/15/16 Quetiapine Fumarate [Seroquel -] 25 mg PO DAILY 12/15/16 Gabapentin 300 mg PO HS 01/19/17 Linaclotide [Linzess] 72 mcg PO DAILY 01/19/17 Lipase/Protease/Amylase [Kamari Nazario 36,000 Units Capsule] 1 each PO TID 01/19/17 Rifaximin [Xifaxan -] 550 mg PO TID 01/19/17 Sumatriptan Succinate [Imitrex -] 50 mg PO DAILY 01/19/17 Metoprolol Succinate [Toprol XL -] 25 mg PO DAILY #30 tab.sr.24h 02/06/17 Famotidine [Pepcid -] 20 mg PO DAILY #14 tablet 05/07/17 Anemia: Yes Asthma: No Cancer: No Cardiac Disorders: No 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, baseline confusion and dizziness) COPD: No CHF: No Dementia: No Diabetes: No GI Disorders: Yes (gerd, gastric ulcer, dysphagia) Disorders: Yes (kidney stone in the past) HTN: Yes Hypercholesterolemia: Yes Liver Disease: No Psychiatric Problems: Yes (ANXIETY DEPRESSION) Seizures: Yes (S/P craniotomy for benign tumor - on Depakote for seizure prophylaxis) Thyroid Disease: No - Surgical History Abdominal Surgery: Yes Appendectomy: No Cardiac Surgery: No Cholecystectomy: Yes Lung Surgery: No Neurologic Surgery: Yes (removal left meningioma) Orthopedic Surgery: Yes (Bilateral knee replacement) - Immunization History Td Vaccination: Yes TDAP Vaccination: No Immunization Up to Date: No - Suicide/Smoking/Psychosocial Hx Smoking Status: No Smoking History: Never smoked Have you smoked in the past 12 months: No Number of Cigarettes Smoked Daily: 0 Cigars Per Day: 0 Information on smoking cessation initiated: No Hx Alcohol Use: No Drug/Substance Use Hx: No Substance Use Type: None Hx Substance Use Treatment: No Review of Systems - Review of Systems Comments:: 05/23/17 00:52 "GENERAL/CONSTITUTIONAL: + Anxiety, No fever or chills. No weakness. HEAD, EYES, EARS, NOSE AND THROAT: No change in vision. No ear pain or discharge. No sore throat. CARDIOVASCULAR: No chest pain or shortness of breath. RESPIRATORY: No cough, wheezing, or hemoptysis. GASTROINTESTINAL: No nausea, vomiting, diarrhea or constipation. GENITOURINARY: No dysuria, frequency, or change in urination. MUSCULOSKELETAL: No joint or muscle swelling or pain. No neck or back pain. SKIN: No rash NEUROLOGIC: No headache, vertigo, loss of consciousness, or change in strength/ sensation. ENDOCRINE: No increased thirst. No abnormal weight change. HEMATOLOGIC/LYMPHATIC: No anemia, easy bleeding, or history of blood clots. ALLERGIC/IMMUNOLOGIC: No hives or skin allergy. " *Physical Exam - Vital Signs Last Vital Signs Temp Pulse Resp BP Pulse Ox 98.4 F 93 H 18 142/95 95 05/22/17 20:06 05/22/17 20:06 05/22/17 20:06 05/22/17 20:06 05/22/17 20:06 - Physical Exam Comments: 05/22/17 23:53 "GENERAL: Awake, alert, and fully oriented, in no acute distress. Generally weak appearing. HEAD: No signs of trauma EYES: PERRLA, EOMI, sclera anicteric, conjunctiva clear ENT: Auricles normal inspection, hearing grossly normal, nares patent, oropharynx clear without exudates. Moist mucosa NECK: Nontender, no stepoffs, Normal ROM, supple, no lymphadenopathy, JVD, or masses LUNGS: Breath sounds equal, clear to auscultation bilaterally. No wheezes, and no crackles HEART: Regular rate and rhythm, normal S1 and S2, no murmurs, rubs or gallops ABDOMEN: Soft, normoactive bowel sounds. No guarding, no rebound. No masses EXTREMITIES: Normal range of motion, no edema. No clubbing or cyanosis. No cords, erythema, or tenderness NEUROLOGICAL: Cranial nerves II through XII intact. 5/5 strength and sensation in all extremities, Normal speech, normal gait, normal cerebellar function SKIN: Warm, Dry, normal turgor, no rashes or lesions noted. " Heart Score/ECG Review - ECG Impressions Comment:: 05/23/17 01:10 NSR, no MACHELLE/STDs, no TWIs, axis wnl, intervals wnl, rate 87 ED Treatment Course - LABORATORY CBC & Chemistry Diagram: 05/23/17 00:32 05/23/17 00:32 Medical Decision Making - Medical Decision Making 05/22/17 23:50 71 F presenting with feelings of anxiety. Low suspicion for cardiac etiology, as pt was just recently admitted for atypical chest pain and had extensive work up including stress test. EKG with no changes today. Will check TSH given pt's subjective anxiety, though pt's vitals wnl. - Labs, trop, TSH 05/23/17 01:48 Labs wnl. Trop negative, BNP less than previous TSH normal. Pt reassessed - denies any complaints at this time. Pt is well appearing, with normal vitals. Clinically stable for DC at this time. I discussed the physical exam findings, ancillary test results and final diagnoses with the patient. I answered all of the patient's questions. The patient was satisfied with the care received and felt comfortable with the discharge plan and treatment plan. The patient agrees to follow up with the primary care physician within 24-72 hours. *DC/Admit/Observation/Transfer Diagnosis at time of Disposition: Anxiety - Discharge Dispostion Disposition: HOME - Referrals Referrals: Taylor Ni MD [Staff Physician] - - Patient Instructions Printed Discharge Instructions: DI for Anxiety -- Adult Additional Instructions: Follow up with your primary doctor within 48 hours for further evaluation of your anxiety. You should also consider seeing a psychiatrist if you continue to have feelings of anxiety. Call the number above to make an appointment. If you experience chest pain, shortness of breath, palpitations, or any other concerning symptoms, return to the ER immediately. Louisa un seguimiento con perla mdico primario dentro de las 48 horas para tavo mayor evaluacin de perla ansiedad. Tambin debera considerar dale a un psiquiatra si contina teniendo sentimientos de ansiedad. Llame al nmero de arriba para hacer tavo jihan. Si experimenta dolor de pecho, dificultad para respirar, palpitaciones o cualquier otro sntoma preocupante, regrese a la leah de urgencias inmediatamente. Print Language: ECUADOREAN - Post Discharge Activity - Attestations Physician Attestion: 05/23/17 01:52 I, Dr. Dano Sinha MD, attest that this document has been prepared under my direction and personally reviewed by me in its entirety. I further attest, that it accurately reflects all work, treatment, procedures and medical decision -making performed by me.
[2017-05-23 00:39] LABS: BASO % 0.6 % (0-2.0); EOS % 4.8 % (0-4.5); HEMATOCRIT 32.9 % (32.4-45.2); HEMOGLOBIN 10.7 GM/dL (10.7-15.3); LYMPH % 27.9 % (8-40); MCH 25.7 pg (25.7-33.7); MCHC 32.7 g/dl (32.0-36.0); MEAN CELL VOLUME 78.6 fl (80-96); MEAN PLT VOLUME 7.2 fl (7.5-11.1); MONO % 19.3 % (3.8-10.2); NEUT % 47.4 % (42.8-82.8); PLATELET COUNT 282 K/MM3 (134-434); RBC 4.19 M/mm3 (3.60-5.2); RDW 18.9 % (11.6-15.6); WHITE BLOOD COUNT 3.8 K/mm3 (4.0-10.0)
[2017-05-23 01:09] LABS: ALBUMIN 3.1 g/dl (3.4-5.0); ANION GAP 4 (8-16); BLOOD UREA NITROGEN 20 mg/dL (7-18); CALCIUM 8.2 mg/dL (8.5-10.1); CHLORIDE 102 mmol/L (98-107); CO2 28 mmol/L (21-32); CREATININE 0.6 mg/dL (0.55-1.02); GLUCOSE,RANDOM 101 mg/dL (74-106); POTASSIUM 4.6 mmol/L (3.5-5.1); SGOT/AST 24 U/L (15-37); SGPT/ALT 30 U/L (12-78); SODIUM 134 mmol/L (136-145)
[2017-05-23 01:13] LABS: N-TERMINAL BNP 140.43 pg/ml (5-125)
[2017-05-23 01:19] LABS: ALK PHOS 203 U/L (45-117); TOT PROT 6.6 g/dl (6.4-8.2)
[2017-05-23 01:22] LABS: BILIRUBIN,TOTAL < 0.1 mg/dL (0.2-1.0)
--- NOTE | 2017-05-23 13:35 | EKG ---
Test Reason : Blood Pressure : / mmHG Vent. Rate : 087 BPM Atrial Rate : 087 BPM P-R Int : 156 ms QRS Dur : 074 ms QT Int : 376 ms P-R-T Axes : 031 -03 020 degrees QTc Int : 452 ms NORMAL SINUS RHYTHM NORMAL ECG WHEN COMPARED WITH ECG OF 17-MAY-2017 23:01, NO SIGNIFICANT CHANGE WAS FOUND Confirmed by MD Dominguez Daniel ([id number]) on 05/23/2017 1:35:29 PM Referred By: Confirmed By:Kirit Dominguez MD
== END 2017-05-23 02:38 | disposition home or self-care (01) ==
LOC: JER 19:53
DX: F41.9 Anxiety disorder, unspecified (principal); I10 Essential (primary) hypertension; J45.909 Unspecified asthma, uncomplicated; I69.893 Ataxia following other cerebrovascular disease; I69.818 Other symptoms and signs involving cognitive functions following other cerebrovascular disease; Z87.19 Personal history of other diseases of the digestive system; Z87.442 Personal history of urinary calculi; Z96.653 Presence of artificial knee joint, bilateral; Z86.011 Personal history of benign neoplasm of the brain
CPT/HCPCS: 36415; 80053; 82550; 83880; 84443; 84484; 85025; 93005; 93010; 99281-25

== ENCOUNTER 2017-05-25 17:54 | Emergency (ER) | payer OTHER ==
--- NOTE | 2017-05-25 18:08 | PDOC ---
Rapid Medical Evaluation Time Seen by Provider: 05/25/17 18:05 Medical Evaluation: Allergies Allergy/AdvReac Type Severity Reaction Status Date / Time aspirin Allergy Severe "NERVOUS" Verified 05/22/17 20:10 morphine Allergy Severe "ANXIETY-DE Verified 05/22/17 20:10 SPERATION" 05/25/17 18:05 I have performed a brief in-person evaluation of this patient. The patient presents with a chief complaint of: sob, CP since last night, "squeezing pain" Pertinent physical exam findings: well appearing I have ordered the following: cards workup The patient will proceed to the ED for further evaluation. Discharge Disposition - Diagnosis Shortness of breath - Referrals - Patient Instructions - Post Discharge Activity
[2017-05-25 18:10] VITALS: BMI 35.2
[2017-05-25 18:57] LABS: BASO % 0.6 % (0-2.0); EOS % 2.9 % (0-4.5); HEMATOCRIT 33.3 % (32.4-45.2); HEMOGLOBIN 10.8 GM/dL (10.7-15.3); LYMPH % 25.3 % (8-40); MCHC 32.4 g/dl (32.0-36.0); MEAN CELL VOLUME 77.3 fl (80-96); MEAN PLT VOLUME 7.3 fl (7.5-11.1); MONO % 14.3 % (3.8-10.2); NEUT % 56.9 % (42.8-82.8); PLATELET COUNT 327 K/MM3 (134-434); RBC 4.31 M/mm3 (3.60-5.2); RDW 18.8 % (11.6-15.6)
--- NOTE | 2017-05-25 19:05 | PDOC ---
History of Present Illness - General Chief Complaint: Chest Pain Stated Complaint: CHEST PAIN Time Seen by Provider: 05/25/17 18:05 - History of Present Illness Initial Comments: 05/25/17 19:17 Ms. Sumner is a 71 yo woman w/ pmh of HTN, HLD, gastric ulcer, asthma, brain tumor s/p resection, prior cholecystectom who presented for atypical chest pain 05/14/17 and 05/22/17 who represents for a 1 day history of left sided chest pain she reports radiates to her back. She reports the pain is constant and that she has had shortness of breath at rest as well. Furthermore she endorses a 3 day history of midline abdominal pain. The patient denies headache and dizziness. Denies fever, chills, nausea, vomit, diarrhea and constipation. Denies dysuria, frequency, urgency and hematuria. Allergies: ASA, morphine Past History - Past Medical History Allergies/Adverse Reactions: Allergies Allergy/AdvReac Type Severity Reaction Status Date / Time aspirin Allergy Severe "NERVOUS" Verified 05/25/17 18:07 morphine Allergy Severe "ANXIETY-DE Verified 05/25/17 18:07 SPERATION" Home Medications: Ambulatory Orders Dexlansoprazole [Dexilant] 60 mg PO DAILY 03/10/16 Escitalopram Oxalate [Lexapro -] 10 mg PO DAILY 03/10/16 Divalproex [Depakote -] 250 mg PO BID 12/15/16 Oxybutynin Chloride [Ditropan Xl] 15 mg PO DAILY 12/15/16 Quetiapine Fumarate [Seroquel -] 25 mg PO DAILY 12/15/16 Gabapentin 300 mg PO HS 01/19/17 Linaclotide [Linzess] 72 mcg PO DAILY 01/19/17 Lipase/Protease/Amylase [Kamari Nazario 36,000 Units Capsule] 1 each PO TID 01/19/17 Rifaximin [Xifaxan -] 550 mg PO TID 01/19/17 Sumatriptan Succinate [Imitrex -] 50 mg PO DAILY 01/19/17 Metoprolol Succinate [Toprol XL -] 25 mg PO DAILY #30 tab.sr.24h 02/06/17 Famotidine [Pepcid -] 20 mg PO DAILY #14 tablet 05/07/17 Anemia: Yes Asthma: No Cancer: No Cardiac Disorders: No 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, baseline confusion and dizziness) COPD: No CHF: No Dementia: No Diabetes: No GI Disorders: Yes (gerd, gastric ulcer, dysphagia) Disorders: Yes (kidney stone in the past) HTN: Yes Hypercholesterolemia: Yes Liver Disease: No Psychiatric Problems: Yes (ANXIETY DEPRESSION) Seizures: Yes (S/P craniotomy for benign tumor - on Depakote for seizure prophylaxis) Thyroid Disease: No - Surgical History Abdominal Surgery: Yes Appendectomy: No Cardiac Surgery: No Cholecystectomy: Yes Lung Surgery: No Neurologic Surgery: Yes (removal left meningioma) Orthopedic Surgery: Yes (Bilateral knee replacement) - Immunization History Td Vaccination: Yes TDAP Vaccination: No Immunization Up to Date: No - Suicide/Smoking/Psychosocial Hx Smoking Status: No Smoking History: Never smoked Have you smoked in the past 12 months: No Number of Cigarettes Smoked Daily: 0 Cigars Per Day: 0 Information on smoking cessation initiated: No Hx Alcohol Use: No Drug/Substance Use Hx: No Substance Use Type: None Hx Substance Use Treatment: No Review of Systems - Review of Systems Comments:: 05/25/17 19:20 GENERAL/CONSTITUTIONAL: No fever or chills. No weakness. HEAD, EYES, EARS, NOSE AND THROAT: No change in vision. No ear pain or discharge. No sore throat. CARDIOVASCULAR: +Left sided chest pain and shortness of breath as described RESPIRATORY: No cough, wheezing, or hemoptysis. GASTROINTESTINAL: +3 days of abdominal pain. No nausea, vomiting, diarrhea or constipation. GENITOURINARY: No dysuria, frequency, or change in urination. MUSCULOSKELETAL: No joint or muscle swelling or pain. No neck or back pain. SKIN: No rash NEUROLOGIC: No headache, vertigo, loss of consciousness, or change in strength/ sensation. ENDOCRINE: No increased thirst. No abnormal weight change HEMATOLOGIC/LYMPHATIC: No anemia, easy bleeding, or history of blood clots. ALLERGIC/IMMUNOLOGIC: No hives or skin allergy. 05/25/17 19:41 *Physical Exam - Vital Signs Last Vital Signs Temp Pulse Resp BP Pulse Ox 99.2 F 88 22 127/69 94 L 05/25/17 18:07 05/25/17 18:07 05/25/17 18:07 05/25/17 18:07 05/25/17 18:07 - Physical Exam Comments: 05/25/17 19:20 GENERAL: Awake, alert, and fully oriented, in no acute distress HEAD: No signs of trauma, normocephalic, atraumatic EYES: PERRLA, EOMI, sclera anicteric, conjunctiva clear ENT: Auricles normal inspection, hearing grossly normal, nares patent, oropharynx clear without exudates. Moist mucosa NECK: Normal ROM, supple, no lymphadenopathy, JVD, or masses LUNGS: +Patient TTP over left chest. No distress, speaks full sentences, clear to auscultation bilaterally HEART: Regular rate and rhythm, normal S1 and S2, no murmurs, rubs or gallops, peripheral pulses normal and equal bilaterally. ABDOMEN: +Midline epigastric tenderness. Soft, normoactive bowel sounds. No guarding, no rebound. No masses EXTREMITIES: Normal inspection, Normal range of motion, no edema. No clubbing or cyanosis. NEUROLOGICAL: Cranial nerves II through XII grossly intact. Normal speech, normal gait, no focal sensorimotor deficits SKIN: Warm, Dry, normal turgor, no rashes or lesions noted. 05/25/17 20:02 ED Treatment Course - LABORATORY CBC & Chemistry Diagram: 05/25/17 18:35 05/25/17 18:35 - ADDITIONAL ORDERS Additional order review: 05/25/17 18:35 RBC 4.31 MCV 77.3 L MCHC 32.4 RDW 18.8 H MPV 7.3 L Neutrophils % 56.9 D Lymphocytes % 25.3 Monocytes % 14.3 H Eosinophils % 2.9 Basophils % 0.6 Medical Decision Making - Medical Decision Making 05/25/17 20:03 Ms. Sumner is a 71 yo woman w/ pmh as described who presents for evaluation of chest pain. Given multiple recent visits for similar problem, CTA ordered to r/ o dissection. Cardiac workup ordered including troponins, EKG, CXR. Also UA. Cardiac enzymes negative. EKG regular rate, regular rhythm, normal access, normal interval, no ST elevations or depressions. CTA negative for acute pathology. Other labs unconcerning as below. Patient breathing normally w/ stable vitals on room air. Discharging patient w/ instructions to f/u as needed with PCP/Cardiology for further care. Laboratory Results - last 24 hr 05/25/17 05/25/17 05/25/17 18:35 18:35 18:35 WBC 5.0 D RBC 4.31 Hgb 10.8 Hct 33.3 MCV 77.3 L MCH 25.0 L MCHC 32.4 RDW 18.8 H Plt Count 327 MPV 7.3 L Neutrophils % 56.9 D Lymphocytes % 25.3 Monocytes % 14.3 H Eosinophils % 2.9 Basophils % 0.6 PT with INR 11.30 INR 1.00 Sodium 133 L Potassium 5.2 H Chloride 99 Carbon Dioxide 27 Anion Gap 7 L BUN 17 Creatinine 0.6 Creat Clearance w eGFR > 60 Random Glucose 108 H Calcium 8.6 Magnesium 2.1 Total Bilirubin 0.1 L AST 39 H ALT 38 Alkaline Phosphatase 207 H Creatine Kinase 82 Troponin I < 0.02 B-Natriuretic Peptide Total Protein 7.1 Albumin 3.1 L Urine Color Urine Appearance Urine pH Ur Specific [place] Urine Protein Urine Glucose (UA) Urine Ketones Urine Blood Urine Nitrite Urine Bilirubin Urine Urobilinogen Ur Leukocyte Esterase Urine WBC (Auto) Urine RBC (Auto) 05/25/17 05/25/17 18:35 22:00 WBC RBC Hgb Hct MCV MCH MCHC RDW Plt Count MPV Neutrophils % Lymphocytes % Monocytes % Eosinophils % Basophils % PT with INR INR Sodium Potassium Chloride Carbon Dioxide Anion Gap BUN Creatinine Creat Clearance w eGFR Random Glucose Calcium Magnesium Total Bilirubin AST ALT Alkaline Phosphatase Creatine Kinase Troponin I B-Natriuretic Peptide 385 H Total Protein Albumin Urine Color Straw Urine Appearance Clear Urine pH 6.0 Ur Specific [place] 1.035 Urine Protein Negative Urine Glucose (UA) Negative Urine Ketones Negative Urine Blood 1+ H Urine Nitrite Negative Urine Bilirubin Negative Urine Urobilinogen Negative Ur Leukocyte Esterase Negative Urine WBC (Auto) <1 Urine RBC (Auto) <1 *DC/Admit/Observation/Transfer Diagnosis at time of Disposition: Chest pain Qualifiers: Chest pain type: unspecified Qualified Code(s): R07.9 - Chest pain, unspecified - Discharge Dispostion Disposition: HOME - Referrals Referrals: Waldo Mabry MD [Primary Care Provider] - - Patient Instructions Printed Discharge Instructions: DI for Atypical Chest Pain Additional Instructions: Return to ER if any increase in pain, fever, chills, or other concerning symptoms. Please follow-up with primary care provider for further evaluation. - Post Discharge Activity
[2017-05-25 19:11] LABS: PROTHROMBIN TIME (PATIENT) 11.3 SEC (9.98-11.88)
[2017-05-25 19:24] LABS: ALBUMIN 3.1 g/dl (3.4-5.0); ANION GAP 7 (8-16); BILIRUBIN,TOTAL 0.1 mg/dL (0.2-1.0); BLOOD UREA NITROGEN 17 mg/dL (7-18); CALCIUM 8.6 mg/dL (8.5-10.1); CHLORIDE 99 mmol/L (98-107); CO2 27 mmol/L (21-32); CREATININE 0.6 mg/dL (0.55-1.02); GLUCOSE,RANDOM 108 mg/dL (74-106); SGPT/ALT 38 U/L (12-78); SODIUM 133 mmol/L (136-145); TOT PROT 7.1 g/dl (6.4-8.2)
[2017-05-25 19:27] LABS: ALK PHOS 207 U/L (45-117)
[2017-05-25 19:32] LABS: MAGNESIUM 2.1 mg/dL (1.8-2.4); SGOT/AST 39 U/L (15-37)
[2017-05-25 19:33] LABS: POTASSIUM 5.2 mmol/L (3.5-5.1)
[2017-05-25] MEDS ORDERED: SODIUM CHLORIDE 1,000 ML IV STA (19:37)
[2017-05-25] MEDS ORDERED: FAMOTIDINE IV 20 MG/12 ML VIAL IVPB ONE (19:37)
--- NOTE | 2017-05-25 19:41 | PDOC ---
Attending Attestation - Resident Resident Name: Abdoul Burgos - ED Attending Attestation I have performed the following: I have examined & evaluated the patient, The case was reviewed & discussed with the resident, I agree w/resident's findings & plan, Exceptions are as noted <Eamon Valenzuela - Last Filed: 05/25/17 19:40> - HPI HPI: 05/25/17 20:40 Patient is a 71 year old female with a significant past medical history of HTN, HLD, gastric ulcer, asthma, brain tumor s/p resection, who presents to the ED with complaints of chest pain that began yesterday evening. Patient reports experiencing intense chest pain that she states radiates towards her back, prompting her to come into the ED for further evaluation. She reports chest pain is a constant pain, stating she has been experiencing associated symptoms of Sob. As per patient's chart, patient has been in the ED for similar symptoms on 05/14/17, and 05/22/17. Denies nausea, vomiting. Denies contact with sick individuals, out of state travelling. Denies diarrhea, constipation, dysuria, hematuria. Denies any other symptoms. Allergies: aspirin, morphine Social history: No smoking. No alcohol. No illicit drugs. Surgical history: cholecystectomy, removal left meningioma, Bilateral knee replacement. PMD: Dr. rose. <Pb Strickland - Last Filed: 05/25/17 20:40>
[2017-05-25] MEDS ORDERED: FAMOTIDINE 20 MG/50 ML IVPB 20 MG/50 ML MG IVPB ONE (21:48)
[2017-05-25 22:07] LABS: URINE APPEARANCE CLEAR; URINE BILIRUBIN NEGATIVE (<2.0 mg/dL); URINE BLOOD 1+ (NEGATIVE); URINE COLOR STRAW; URINE GLUCOSE (UA) NEGATIVE (NEGATIVE); URINE KETONE NEGATIVE (NEGATIVE); URINE LEUK ESTERASE NEGATIVE (NEGATIVE); URINE NITRITE NEGATIVE (NEGATIVE); URINE PROTEIN NEGATIVE (NEGATIVE); URINE UROBILINOGEN NEGATIVE mg/dL (0.2-1.0)
[2017-05-25] MEDS ORDERED: KETOROLAC TROMETHAMINE 30 MG/1 ML VIAL IVPUSH ONE (22:44)
[2017-05-25] MEDS ORDERED: KETOROLAC TROMETHAMINE 30 MG/1 ML VIAL ONE (23:04)
[2017-05-25 23:20] VITALS: BP 138/78; PULSE 89; TEMP 98.5
--- NOTE | 2017-05-26 09:23 | EKG ---
Test Reason : Blood Pressure : / mmHG Vent. Rate : 081 BPM Atrial Rate : 081 BPM P-R Int : 158 ms QRS Dur : 078 ms QT Int : 396 ms P-R-T Axes : 034 002 026 degrees QTc Int : 460 ms NORMAL SINUS RHYTHM NORMAL ECG WHEN COMPARED WITH ECG OF 22-MAY-2017 20:14, NO SIGNIFICANT CHANGE WAS FOUND Confirmed by LARA SARMIENTO MD ([id number]) on 05/26/2017 9:22:31 AM Referred By: Confirmed By:LARA SARMIENTO MD
== END 2017-05-25 23:18 | disposition home or self-care (01) ==
LOC: JER 17:54
PROC: 3E033GC Introduction of Other Therapeutic Substance into Peripheral Vein, Percutaneous Approach (ICD-10-PCS; principal; 2017-05-25)
PROC: 3E0333Z Introduction of Anti-inflammatory into Peripheral Vein, Percutaneous Approach (ICD-10-PCS; 2017-05-25)
DX: R07.89 Other chest pain (principal); E78.00 Pure hypercholesterolemia, unspecified; J45.909 Unspecified asthma, uncomplicated; F41.8 Other specified anxiety disorders; I69.893 Ataxia following other cerebrovascular disease; Z87.442 Personal history of urinary calculi; Z87.19 Personal history of other diseases of the digestive system
CPT/HCPCS: 36415; 71275-TC; 74174-TC; 80053; 81003; 81015; 82550; 83735; 83880; 84484; 85025; 85610; 87086; 93005; 93010; 99284-25; J7030

== ENCOUNTER 2017-05-28 18:40 | Emergency (ER) | payer OTHER ==
[2017-05-28 19:10] VITALS: BMI 31.2
--- NOTE | 2017-05-28 19:50 | PDOC ---
History of Present Illness <Machelle Palacios - Last Filed: 05/28/17 20:34> - General History Source: Patient Exam Limitations: No Limitations - History of Present Illness Initial Comments: 05/28/17 19:14 The patient is a 71F with a PMH of HTN, HLD, hx gastric ulcer, asthma, brain tumor s/p resection, s/p cholecystectomy, recent ED visit for atypical chest pain (05/14/17; d/c after two trops neg, ACS r/o) who presents to the ER complaining of CP. The patient states that she's had the same headache, CP, and SOB that she's had over the past week. She states that her CP, SOB, headache, and nausea all started yesterday and have not subsided. She denies fever, chills , dysuria. 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, baseline confusion and dizziness) COPD: No CHF: No Dementia: No Diabetes: No GI Disorders: Yes (gerd, gastric ulcer, dysphagia) Disorders: Yes (kidney stone in the past) HTN: Yes Hypercholesterolemia: Yes Liver Disease: No Psychiatric Problems: Yes (ANXIETY DEPRESSION) Seizures: Yes (S/P craniotomy for benign tumor - on Depakote for seizure prophylaxis) Thyroid Disease: No - Surgical History Abdominal Surgery: Yes Appendectomy: No Cardiac Surgery: No Cholecystectomy: Yes Lung Surgery: No Neurologic Surgery: Yes (removal left meningioma) Orthopedic Surgery: Yes (Bilateral knee replacement) - Immunization History Td Vaccination: Yes TDAP Vaccination: No Immunization Up to Date: No - Suicide/Smoking/Psychosocial Hx Smoking Status: No Smoking History: Never smoked Have you smoked in the past 12 months: No Number of Cigarettes Smoked Daily: 0 Cigars Per Day: 0 Information on smoking cessation initiated: No Hx Alcohol Use: No Drug/Substance Use Hx: No Substance Use Type: None Hx Substance Use Treatment: No <Oraha,Judson - Last Filed: 05/28/17 23:11> - Past Medical History Allergies/Adverse Reactions: Allergies Allergy/AdvReac Type Severity Reaction Status Date / Time aspirin Allergy Severe "NERVOUS" Verified 05/28/17 19:10 morphine Allergy Severe "ANXIETY-DE Verified 05/28/17 19:10 SPERATION" Home Medications: Ambulatory Orders Dexlansoprazole [Dexilant] 60 mg PO DAILY 03/10/16 Escitalopram Oxalate [Lexapro -] 10 mg PO DAILY 03/10/16 Divalproex [Depakote -] 250 mg PO BID 12/15/16 Oxybutynin Chloride [Ditropan Xl] 15 mg PO DAILY 12/15/16 Quetiapine Fumarate [Seroquel -] 25 mg PO DAILY 12/15/16 Gabapentin 300 mg PO HS 01/19/17 Linaclotide [Linzess] 72 mcg PO DAILY 01/19/17 Lipase/Protease/Amylase [Kamari Dr 36,000 Units Capsule] 1 each PO TID 01/19/17 Rifaximin [Xifaxan -] 550 mg PO TID 01/19/17 Sumatriptan Succinate [Imitrex -] 50 mg PO DAILY 01/19/17 Metoprolol Succinate [Toprol XL -] 25 mg PO DAILY #30 tab.sr.24h 02/06/17 Famotidine [Pepcid -] 20 mg PO DAILY #14 tablet 05/07/17 Review of Systems - Review of Systems Able to Perform ROS?: Yes Comments:: 05/28/17 21:06 GENERAL/CONSTITUTIONAL: No fever or chills. No weakness. HEAD, EYES, EARS, NOSE AND THROAT: No change in vision. No ear pain or discharge. No sore throat. CARDIOVASCULAR: Positive for CP. No palpitations or lightheadedness. RESPIRATORY: Positive for SOB. No cough, wheezing, or hemoptysis. GASTROINTESTINAL: Positive for nausea. No vomiting, diarrhea, constipation, or abdominal pain. GENITOURINARY: No dysuria, frequency, hematuria, or change in urination. MUSCULOSKELETAL: No joint or muscle swelling or pain. No neck or back pain. SKIN: No rash or lesions. NEUROLOGIC: Positive for headache. No numbness, tingling, weakness, loss of consciousness, or change in strength/sensation. ENDOCRINE: No increased thirst. No abnormal weight change. HEMATOLOGIC/LYMPHATIC: No anemia, easy bleeding, or history of blood clots. ALLERGIC/IMMUNOLOGIC: No hives or skin allergy. Is the patient limited [place] proficient: No <Judson Teresa - Last Filed: 05/28/17 23:11> *Physical Exam - Vital Signs Last Vital Signs Temp Pulse Resp BP Pulse Ox 98.6 F 87 16 179/86 97 05/28/17 19:00 05/28/17 19:00 05/28/17 19:00 05/28/17 19:00 05/28/17 19:00 <Machelle Palacios - Last Filed: 05/28/17 20:34> - Vital Signs Last Vital Signs Temp Pulse Resp BP Pulse Ox 98.6 F 87 16 179/86 97 05/28/17 19:00 05/28/17 19:00 05/28/17 19:00 05/28/17 19:00 05/28/17 19:00 - Physical Exam Comments: 05/28/17 21:07 GENERAL: Well developed, well nourished. Awake and alert. No acute distress. HEENT: Normocephalic, atraumatic. Hearing grossly normal. Moist mucous membranes. PERRLA, EOMI. No conjunctival pallor. Sclera are non-icteric. NECK: Supple. Full ROM. No JVD. CARDIOVASCULAR: Regular rate and rhythm. No murmurs, rubs, or gallops. PULMONARY: No evidence of respiratory distress. Lungs clear to auscultation bilaterally. No wheezing, rales or rhonchi. ABDOMINAL: Soft. Non-tender. Non-distended. No rebound or guarding. GENITOURINARY: No CVA tenderness bilaterally. MUSCULOSKELETAL: Normal range of motion at all joints. No bony deformities or tenderness. EXTREMITIES: No cyanosis. No clubbing. No edema. No calf tenderness. SKIN: Warm and dry. Normal capillary refill. No rashes. No jaundice. NEUROLOGICAL: Alert, awake, appropriate. Cranial nerves 2-12 intact. Normal speech. Gait is normal without ataxia. PSYCHIATRIC: Cooperative. Good eye contact. Appropriate mood and affect. <Judson Teresa - Last Filed: 05/28/17 23:11> Heart Score/ECG Review #1 General ECG Interpretation: Sinus Rhythm, Normal Rate, Normal Intervals, No acute ischemic changes Compared to previous ECG there are: No significant change <Judson Teresa - Last Filed: 05/28/17 23:11> ED Treatment Course - LABORATORY CBC & Chemistry Diagram: 05/28/17 20:20 05/28/17 20:20 <Machelle Palacios - Last Filed: 05/28/17 20:34> - LABORATORY CBC & Chemistry Diagram: 05/28/17 20:20 05/28/17 20:20 <Judson Teresa - Last Filed: 05/28/17 23:11> Medical Decision Making - Medical Decision Making 05/28/17 20:12 Placed call to patient's PCP, Dr. Mabry, at [phone] at [phone]. Awaiting callback. EKG obtained 1907. Normal sinus rhythm at 86 bpm. Normal EKG. 05/28/17 20:34 Second call to [phone] for Dr Mabry at 2030. Awaiting callback. <Machelle Palacios - Last Filed: 05/28/17 20:34> - Medical Decision Making 05/28/17 21:09 The patient is a 71F who has presented multiple times to our ER and has been worked up extensively, including an admission, for CP and SOB. I have discussed with the patient the need to follow up with her PCP. She understands but is continuously requesting medications for her pain and for her anxiety. My attending has discussed this with the patient as well. All labs, including troponins, are negative. EKG NSR. Will d/c with PCP f/u. 05/28/17 23:08 Pt given 500 NS to correct mild hyponatremia and hypchloremia. Pt states she feels better. Will d/c. <Judson Teresa - Last Filed: 05/28/17 23:11> *DC/Admit/Observation/Transfer - Attestations Scribe Attestion: 05/28/17 20:14 Documentation prepared by Machelle Palacios, acting as chief medical physicist for Judson Teresa MD. <Machelle Palacios - Last Filed: 05/28/17 20:34> - Discharge Dispostion Admit: No <Judson Teresa - Last Filed: 05/28/17 23:11> Diagnosis at time of Disposition: Atypical chest pain - Discharge Dispostion Disposition: HOME Condition at time of disposition: Stable - Referrals Referrals: Waldo Mabry MD [Primary Care Provider] - - Patient Instructions Printed Discharge Instructions: DI for Atypical Chest Pain Additional Instructions: Por favor, llame al Dr. Morgan maana por la maana para programar tavo jihan para que no tenga que venir a la leah de emergencias. Por favor regrese a la leah de emergencia si tiene signos o sntomas de dolor en el pecho, dificultad para respirar, fiebre incontrolable, escalofros, n useas, vmitos, entumecimiento, hormigueo o debilidad en cualquier parte de perla cuerpo, cambios en la visin o dificultad para hablar. Por favor tome devorah medicamentos segn lo recetado. Please return to the ER if you have any signs or symptoms of chest pain, shortness of breath, uncontrollable fever, chills, nausea, vomiting, numbness, tingling, or weakness in any part of your body, changes in vision, or slurred speech. Please take your medications as prescribed. Please call Dr. Morgan tomorrow morning to set up an appointment so you don' t need to come to the ER. Print Language: MOZAMBICAN - Post Discharge Activity
[2017-05-28] MEDS ORDERED: MAG HYDROX/AL HYDROX/SIMETH 30 ML UNIT-DOSE CUP PO ONE (20:10)
--- NOTE | 2017-05-28 20:12 | PDOC ---
Attending Attestation - Resident Resident Name: Judson Teresa - ED Attending Attestation I have performed the following: I have examined & evaluated the patient, The case was reviewed & discussed with the resident, I agree w/resident's findings & plan - HPI HPI: 05/28/17 20:10 Pt comes with her usua chest pain and gerd and gastritis. SHe is depressed. Her daughter 5 years ago and she has no friends or family and she doesn't go out or eat much or have appetite. She has a HHAide who comes 9-5pm daily and she has PMD Armondmacfacundo, EKG NSR. We will feed patient and give her meds for pain and gastritis and she will be discharged home. - Physicial Exam PE: 05/29/17 05:53 Agree with resident exam - Medical Decision Making 05/29/17 05:54 Pt treated for gastritis pain. She is feeling better in the ER with IVF and replenishment of NA and Cl SHe is stable for discharge. <Barby Miller - Last Filed: 05/29/17 05:54> Heart Score/ECG Review #1 05/28/17 20:13 EKG obtained 1907. NSR at 86 bpm. Normal EKG. Documentation prepared by Machelle Palacios, acting as medical record coder for Barby Miller MD. <Machelle Palacios - Last Filed: 05/28/17 20:13>
[2017-05-28] MEDS ORDERED: MAG HYDROX/AL HYDROX/SIMETH 30 ML UNIT-DOSE CUP ONE (20:19)
[2017-05-28 20:31] LABS: BASO % 0.7 % (0-2.0); EOS % 2.8 % (0-4.5); HEMATOCRIT 34.3 % (32.4-45.2); HEMOGLOBIN 11.4 GM/dL (10.7-15.3); LYMPH % 23.1 % (8-40); MCH 25.6 pg (25.7-33.7); MCHC 33.1 g/dl (32.0-36.0); MEAN CELL VOLUME 77.2 fl (80-96); MEAN PLT VOLUME 7.1 fl (7.5-11.1); MONO % 13.1 % (3.8-10.2); NEUT % 60.3 % (42.8-82.8); PLATELET COUNT 297 K/MM3 (134-434); RBC 4.45 M/mm3 (3.60-5.2); RDW 19.1 % (11.6-15.6); WHITE BLOOD COUNT 5.7 K/mm3 (4.0-10.0)
[2017-05-28 20:55] LABS: ALBUMIN 3.5 g/dl (3.4-5.0); ANION GAP 5 (8-16); BILIRUBIN,TOTAL 0.3 mg/dL (0.2-1.0); BLOOD UREA NITROGEN 13 mg/dL (7-18); CALCIUM 8.4 mg/dL (8.5-10.1); CHLORIDE 95 mmol/L (98-107); CO2 29 mmol/L (21-32); CREATININE 0.6 mg/dL (0.55-1.02); GLUCOSE,RANDOM 100 mg/dL (74-106); POTASSIUM 4.5 mmol/L (3.5-5.1); SGOT/AST 34 U/L (15-37); SGPT/ALT 42 U/L (12-78); SODIUM 129 mmol/L (136-145); TOT PROT 7.6 g/dl (6.4-8.2)
[2017-05-28 20:58] LABS: ALK PHOS 208 U/L (45-117)
[2017-05-28] MEDS ORDERED: SODIUM CHLORIDE 0.9% 500 ML INFUS.BAG IV ONE (21:02)
[2017-05-28 23:29] VITALS: BP 136/77; PULSE 86; TEMP 98.1
--- NOTE | 2017-05-29 12:21 | EKG ---
Test Reason : Blood Pressure : / mmHG Vent. Rate : 086 BPM Atrial Rate : 086 BPM P-R Int : 160 ms QRS Dur : 086 ms QT Int : 380 ms P-R-T Axes : 045 011 046 degrees QTc Int : 454 ms NORMAL SINUS RHYTHM NORMAL ECG WHEN COMPARED WITH ECG OF 25-MAY-2017 18:28, NO SIGNIFICANT CHANGE WAS FOUND Confirmed by ADRIENNE SADLER MD ([id number]) on 05/29/2017 12:21:47 PM Referred By: Confirmed By:ADRIENNE SADLER MD
== END 2017-05-28 23:29 | disposition home or self-care (01) ==
LOC: JER 18:40
DX: R07.89 Other chest pain (principal); I10 Essential (primary) hypertension; E78.00 Pure hypercholesterolemia, unspecified; J45.909 Unspecified asthma, uncomplicated; F41.9 Anxiety disorder, unspecified; F32.9 Major depressive disorder, single episode, unspecified; I69.893 Ataxia following other cerebrovascular disease; Z87.442 Personal history of urinary calculi
CPT/HCPCS: 36415; 80053; 82550; 84484; 85025; 93005; 93010; 99281-25

== ENCOUNTER 2017-05-30 14:28 | Emergency (ER) | payer OTHER ==
[2017-05-30 14:35] VITALS: TEMP 98.8; BMI 35.2
[2017-05-30] MEDS ORDERED: ACETAMINOPHEN 325 MG TABLET (FP) PO ONE (15:31)
[2017-05-30] MEDS ORDERED: ACETAMINOPHEN 325 MG TABLET (FP) ONE (15:37)
--- NOTE | 2017-05-30 16:16 | PDOC ---
History of Present Illness <Chantal Paulino - Last Filed: 05/30/17 17:32> - History of Present Illness Initial Comments: 05/30/17 16:26 71 F with h/o HTN, HLD, brain tumor s/p resection, asthma, presenting to ED with chest pain and headache. Pt has been seen in this ED numerous times in the past year for chest pain and had extensive negative work up. Pt states that her chest pain is the same chronic pain she has had for months. Denies any acute change. denies SOB. She states that she presents to ED today because she also has a headache. Denies thunderclap, denies neck stiffness, denies F/C, denies N/ V, Denies weakness/numbness in any extremity. Pt states she has had similar headaches in the past. 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, baseline confusion and dizziness) COPD: No CHF: No Dementia: No Diabetes: No GI Disorders: Yes (gerd, gastric ulcer, dysphagia) Disorders: Yes (kidney stone in the past) HTN: Yes Hypercholesterolemia: Yes Liver Disease: No Psychiatric Problems: Yes (ANXIETY DEPRESSION) Seizures: Yes (S/P craniotomy for benign tumor - on Depakote for seizure prophylaxis) Thyroid Disease: No - Surgical History Abdominal Surgery: Yes Appendectomy: No Cardiac Surgery: No Cholecystectomy: Yes Lung Surgery: No Neurologic Surgery: Yes (removal left meningioma) Orthopedic Surgery: Yes (Bilateral knee replacement) - Immunization History Td Vaccination: Yes TDAP Vaccination: No Immunization Up to Date: No - Suicide/Smoking/Psychosocial Hx Smoking Status: No Smoking History: Never smoked Have you smoked in the past 12 months: No Number of Cigarettes Smoked Daily: 0 Cigars Per Day: 0 Hx Alcohol Use: No Drug/Substance Use Hx: No Substance Use Type: None Hx Substance Use Treatment: No <Dano Sinha - Last Filed: 05/30/17 18:36> - Past Medical History Allergies/Adverse Reactions: Allergies Allergy/AdvReac Type Severity Reaction Status Date / Time aspirin Allergy Severe "NERVOUS" Verified 05/30/17 14:31 morphine Allergy Severe "ANXIETY-DE Verified 05/30/17 14:31 SPERATION" Home Medications: Ambulatory Orders Dexlansoprazole [Dexilant] 60 mg PO DAILY 03/10/16 Escitalopram Oxalate [Lexapro -] 10 mg PO DAILY 03/10/16 Divalproex [Depakote -] 250 mg PO BID 12/15/16 Oxybutynin Chloride [Ditropan Xl] 15 mg PO DAILY 12/15/16 Quetiapine Fumarate [Seroquel -] 25 mg PO DAILY 12/15/16 Gabapentin 300 mg PO HS 01/19/17 Linaclotide [Linzess] 72 mcg PO DAILY 01/19/17 Lipase/Protease/Amylase [Kamari Nazario 36,000 Units Capsule] 1 each PO TID 01/19/17 Rifaximin [Xifaxan -] 550 mg PO TID 01/19/17 Sumatriptan Succinate [Imitrex -] 50 mg PO DAILY 01/19/17 Metoprolol Succinate [Toprol XL -] 25 mg PO DAILY #30 tab.sr.24h 02/06/17 Famotidine [Pepcid -] 20 mg PO DAILY #14 tablet 05/07/17 Polyethylene Glycol 3350 [Miralax (For Bowel Prep) -] 17 gm PO DAILY #1 bottle 05/28/17 Sulfamethoxazole/Trimethoprim [Bactrim Ds -] 1 tab PO BID #6 tablet 05/28/17 Review of Systems - Review of Systems Comments:: 05/30/17 16:27 "GENERAL/CONSTITUTIONAL: No fever or chills. No weakness. HEAD, EYES, EARS, NOSE AND THROAT: No change in vision. No ear pain or discharge. No sore throat. CARDIOVASCULAR: + chest pain no shortness of breath. RESPIRATORY: No cough, wheezing, or hemoptysis. GASTROINTESTINAL: No nausea, vomiting, diarrhea or constipation. GENITOURINARY: No dysuria, frequency, or change in urination. MUSCULOSKELETAL: No joint or muscle swelling or pain. No neck or back pain. SKIN: No rash NEUROLOGIC: + headache, no vertigo, loss of consciousness, or change in strength /sensation. ENDOCRINE: No increased thirst. No abnormal weight change. HEMATOLOGIC/LYMPHATIC: No anemia, easy bleeding, or history of blood clots. ALLERGIC/IMMUNOLOGIC: No hives or skin allergy. " <Dano Sinha - Last Filed: 05/30/17 18:36> *Physical Exam - Vital Signs Last Vital Signs Temp Pulse Resp BP Pulse Ox 98.8 F 105 H 19 164/89 96 05/30/17 14:31 05/30/17 14:31 05/30/17 14:31 05/30/17 14:31 05/30/17 14:31 <Chantal Paulino - Last Filed: 05/30/17 17:32> - Vital Signs Last Vital Signs Temp Pulse Resp BP Pulse Ox 98.8 F 105 H 19 164/89 96 05/30/17 14:31 05/30/17 14:31 05/30/17 14:31 05/30/17 14:31 05/30/17 14:31 - Physical Exam Comments: 05/30/17 16:27 "GENERAL: Awake, alert, and fully oriented, in no acute distress. HEAD: No signs of trauma EYES: PERRLA, EOMI, sclera anicteric, conjunctiva clear ENT: Auricles normal inspection, hearing grossly normal, nares patent, oropharynx clear without exudates. Moist mucosa NECK: Nontender, no stepoffs, Normal ROM, supple, no lymphadenopathy, JVD, or masses LUNGS: Breath sounds equal, clear to auscultation bilaterally. No wheezes, and no crackles HEART: Regular rate and rhythm, normal S1 and S2, no murmurs, rubs or gallops ABDOMEN: Soft, nontender, normoactive bowel sounds. No guarding, no rebound. No masses EXTREMITIES: Normal range of motion, no edema. No clubbing or cyanosis. No cords, erythema, or tenderness NEUROLOGICAL: Cranial nerves II through XII intact. 5/5 strength and sensation in all extremities, Normal speech, normal gait, normal cerebellar function SKIN: Warm, Dry, normal turgor, no rashes or lesions noted. " <Dano Sinha - Last Filed: 05/30/17 18:36> Heart Score/ECG Review - ECG Impressions Comment:: 05/30/17 16:41 NSR, no MACHELLE/STDs, no TWIs, axis wnl, intervals wnl, rate 98 <Ou,Dano - Last Filed: 05/30/17 18:36> ED Treatment Course - RADIOLOGY Radiograph Interpretation: 05/30/17 17:[address] as reviewed by Dr. Ferraro reports no definite interval change is identified in comparison to previous CT done in 04/02 s/p L craniotomy with subjacent frontal encephalomalacia. Small, chronic left basal ganglia infarct. - Medications Given in the ED: ED Medications Discontinued Medications Generic Name Dose Route Start Last Admin Trade Name Freq PRN Reason Stop Dose Admin Acetaminophen 650 mg 05/30/17 15:31 05/30/17 15:39 Tylenol - PO 05/30/17 15:32 650 mg ONCE ONE Administration <Chantal Paulino - Last Filed: 05/30/17 17:32> - RADIOLOGY Radiology Studies Ordered: Category Date Time Status HEAD CT WITHOUT CONTRAST [CT] Stat CT Scan 05/30/17 15:30 Ordered - Medications Given in the ED: ED Medications Discontinued Medications Generic Name Dose Route Start Last Admin Trade Name Freq PRN Reason Stop Dose Admin Acetaminophen 650 mg 05/30/17 15:31 05/30/17 15:39 Tylenol - PO 05/30/17 15:32 650 mg ONCE ONE Administration <Ou,Dano - Last Filed: 05/30/17 18:36> Medical Decision Making - Medical Decision Making 05/30/17 16:28 71 F with chronic atypical chest pain presenting to ED with chest pain and headache. Chest pain seems to be chronic. Given numerous prior work ups for same complaint, will defer blood tests at this time. Pt's headache seems consistent with prior headaches. Pt has no red flags such as thunderclap, fevers , neck stiffness. - CT head - EKG - Tylenol 05/30/17 16:41 EKG with no ischemic changes. 05/30/17 16:54 CTH wnl Pt reassessed - now with resolution of symptoms s/p tylenol and ativan. Denies CP at this time. Denies GALLARDO. Pt is well appearing, with normal vitals. Clinically stable for DC at this time. I discussed the physical exam findings, ancillary test results and final diagnoses with the patient. I answered all of the patient's questions. The patient was satisfied with the care received and felt comfortable with the discharge plan and treatment plan. The patient agrees to follow up with the primary care physician within 24-72 hours. <Dano Sinha - Last Filed: 05/30/17 18:36> *DC/Admit/Observation/Transfer - Attestations Scribe Attestion: 05/30/17 17:36 Documentation prepared by Chantal Paulino, acting as medical billing coordinator for Dano Sinha MD. <Chantal Paulino - Last Filed: 05/30/17 17:32> - Attestations Physician Attestion: 05/30/17 16:56 I, Dr. Dano Sinha MD, attest that this document has been prepared under my direction and personally reviewed by me in its entirety. I further attest, that it accurately reflects all work, treatment, procedures and medical decision -making performed by me. <Dano Sinha - Last Filed: 05/30/17 18:36> Diagnosis at time of Disposition: Headache, Atypical chest pain - Discharge Dispostion Disposition: HOME - Patient Instructions Printed Discharge Instructions: DI for Atypical Chest Pain, DI for Headache Additional Instructions: Follow up with your primary care doctor within 1 week. If you experience worsening chest pain, headache, or any other concerning symptoms, return to the ER immediately.
[2017-05-30] MEDS ORDERED: LORazepam 1 MG TABLET PO ONE (17:12)
[2017-05-30] MEDS ORDERED: LORazepam 0.5 MG TABLET ONE (17:42)
[2017-05-30 19:15] VITALS: BP 158/72; PULSE 81
--- NOTE | 2017-05-31 09:29 | EKG ---
Test Reason : Blood Pressure : / mmHG Vent. Rate : 098 BPM Atrial Rate : 098 BPM P-R Int : 152 ms QRS Dur : 076 ms QT Int : 362 ms P-R-T Axes : 029 -06 018 degrees QTc Int : 462 ms POOR DATA QUALITY, INTERPRETATION MAY BE ADVERSELY AFFECTED SINUS RHYTHM WITH PREMATURE ATRIAL COMPLEXES OTHERWISE NORMAL ECG WHEN COMPARED WITH ECG OF 28-MAY-2017 19:08, PREMATURE ATRIAL COMPLEXES ARE NOW PRESENT Confirmed by LORENZO SEVILLA, ANNITA ([id number]) on 05/31/2017 9:29:48 AM Referred By: Confirmed By:ANNITA VENTURA MD
== END 2017-05-30 19:16 | disposition home or self-care (01) ==
LOC: JER 14:28
DX: R07.89 Other chest pain (principal); R51 Headache; I10 Essential (primary) hypertension; K21.9 Gastro-esophageal reflux disease without esophagitis; F41.9 Anxiety disorder, unspecified; F32.9 Major depressive disorder, single episode, unspecified; D64.9 Anemia, unspecified; I69.893 Ataxia following other cerebrovascular disease; Z87.19 Personal history of other diseases of the digestive system; Z96.653 Presence of artificial knee joint, bilateral; Z90.49 Acquired absence of other specified parts of digestive tract
CPT/HCPCS: 70450-TC; 93005; 93010; 99284-25

== ENCOUNTER 2017-06-10 20:22 | Emergency (ER) | payer OTHER ==
[2017-06-10 20:48] VITALS: PULSE 67; BMI 33.2
--- NOTE | 2017-06-10 22:04 | PDOC ---
History of Present Illness - General Chief Complaint: Chest Pain Stated Complaint: CHEST PAIN Time Seen by Provider: 06/10/17 21:26 History Source: Patient Exam Limitations: No Limitations - History of Present Illness Initial Comments: 06/11/17 01:29 This is a 74-year-old female with a history of gastric ulcer, hypertension, brain tumor, asthma who presents to the ER with 2 day history of right sided 7/ 10 pressure-like intermittent nonradiating chest pain which is alleviated with Tylenol and worsen on movement and deep inspiration. She denies headache, dizziness, lightheadedness, nausea/vomiting, fever/chills, facial pains, neck pain, neck stiffness, back pains, shortness of breath, abdominal pains, flank pains, urinary symptoms. Patient denies any other complaints. Past History - Past Medical History Allergies/Adverse Reactions: Allergies Allergy/AdvReac Type Severity Reaction Status Date / Time aspirin Allergy Severe "NERVOUS" Verified 06/10/17 20:44 morphine Allergy Severe "ANXIETY-DE Verified 06/10/17 20:44 SPERATION" Home Medications: Ambulatory Orders Dexlansoprazole [Dexilant] 60 mg PO DAILY 03/10/16 Escitalopram Oxalate [Lexapro -] 10 mg PO DAILY 03/10/16 Divalproex [Depakote -] 250 mg PO BID 12/15/16 Oxybutynin Chloride [Ditropan Xl] 15 mg PO DAILY 12/15/16 Quetiapine Fumarate [Seroquel -] 25 mg PO DAILY 12/15/16 Gabapentin 300 mg PO HS 01/19/17 Linaclotide [Linzess] 72 mcg PO DAILY 01/19/17 Lipase/Protease/Amylase [Kamari Nazario 36,000 Units Capsule] 1 each PO TID 01/19/17 Rifaximin [Xifaxan -] 550 mg PO TID 01/19/17 Sumatriptan Succinate [Imitrex -] 50 mg PO DAILY 01/19/17 Metoprolol Succinate [Toprol XL -] 25 mg PO DAILY #30 tab.sr.24h 02/06/17 Famotidine [Pepcid -] 20 mg PO DAILY #14 tablet 05/07/17 Polyethylene Glycol 3350 [Miralax (For Bowel Prep) -] 17 gm PO DAILY #1 bottle 05/28/17 Sulfamethoxazole/Trimethoprim [Bactrim Ds -] 1 tab PO BID #6 tablet 05/28/17 Anemia: Yes Asthma: No Cancer: No Cardiac Disorders: No 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, baseline confusion and dizziness) COPD: No CHF: No Dementia: No Diabetes: No GI Disorders: Yes (gerd, gastric ulcer, dysphagia) Disorders: Yes (kidney stone in the past) HTN: Yes Hypercholesterolemia: Yes Liver Disease: No Psychiatric Problems: Yes (ANXIETY DEPRESSION) Seizures: Yes (S/P craniotomy for benign tumor - on Depakote for seizure prophylaxis) Thyroid Disease: No - Surgical History Abdominal Surgery: Yes Appendectomy: No Cardiac Surgery: No Cholecystectomy: Yes Lung Surgery: No Neurologic Surgery: Yes (removal left meningioma) Orthopedic Surgery: Yes (Bilateral knee replacement) - Immunization History Td Vaccination: Yes TDAP Vaccination: No Immunization Up to Date: No - Suicide/Smoking/Psychosocial Hx Smoking Status: No Smoking History: Never smoked Have you smoked in the past 12 months: No Number of Cigarettes Smoked Daily: 0 Cigars Per Day: 0 Information on smoking cessation initiated: No Hx Alcohol Use: No Drug/Substance Use Hx: No Substance Use Type: None Hx Substance Use Treatment: No Cardiac Specific PMH - Complaint Specific PMHX Pacemaker: No Review of Systems - Review of Systems Able to Perform ROS?: Yes Comments:: 06/11/17 01:31 CONSTITUTIONAL: Absent: fever, chills, diaphoresis, generalized weakness, malaise, loss of appetite HEENT: Absent: rhinorrhea, nasal congestion, throat pain, throat swelling, difficulty swallowing, mouth swelling, ear pain, eye pain, visual Changes CARDIOVASCULAR: +Right sided cp Absent: loss of consciousness, palpitations, irregular heart rate, peripheral edema RESPIRATORY: Absent: cough, shortness of breath, dyspnea with exertion, orthopnea, wheezing, stridor, hemoptysis GASTROINTESTINAL: Absent: abdominal pain, abdominal distension, nausea, vomiting, diarrhea, constipation, melena, hematochezia GENITOURINARY: Absent: dysuria, frequency, urgency, hesitancy, hematuria, flank pain, genital pain MUSCULOSKELETAL: Absent: myalgia, arthralgia, joint swelling SKIN: Absent: rash, itching, pallor HEMATOLOGIC/IMMUNOLOGIC: Absent: easy bleeding, easy bruising, lymphadenopathy, frequent infections ENDOCRINE: Absent: unexplained weight gain, unexplained weight loss, heat intolerance, cold intolerance NEUROLOGIC: Absent: headache, focal weakness or paresthesias, dizziness, unsteady gait, seizure, mental status changes, bladder or bowel incontinence PSYCHIATRIC: Absent: anxiety, depression, suicidal or homicidal ideation, hallucinations. Is the patient limited Taiwanese proficient: No *Physical Exam - Vital Signs Last Vital Signs Temp Pulse Resp BP Pulse Ox 98.0 F 67 18 94/47 96 06/10/17 20:44 06/10/17 20:44 06/10/17 20:44 06/10/17 20:44 06/10/17 20:44 - Physical Exam Comments: 06/11/17 01:31 GENERAL: Well developed, well nourished. Awake and alert. No acute distress. HEENT: Normocephalic, atraumatic. PERRLA, EOMI. No conjunctival pallor. Sclera are non- icteric. Moist mucous membranes. Oropharynx is clear. NECK: Supple. Full ROM. No JVD. Carotid pulses 2+ and symmetric, without bruits. No thyromegaly. No lymphadenopathy. CARDIOVASCULAR: Regular rate and rhythm. No murmurs, rubs, or gallops. Distal pulses are 2+ and symmetric. PULMONARY: No evidence of respiratory distress. Lungs clear to auscultation bilaterally. No wheezing, rales or rhonchi. ABDOMINAL: Soft. Non-tender. Non-distended. No rebound or guarding. No organomegaly. Normoactive bowel sounds. MUSCULOSKELETAL Normal range of motion at all joints. No bony deformities or tenderness. No CVA tenderness. EXTREMITIES: No cyanosis. No clubbing. No edema. No calf tenderness. SKIN: Warm and dry. Normal capillary refill. No rashes. No jaundice. NEUROLOGICAL: Alert, awake, appropriate. Cranial nerves 2-12 intact. No deficits to light touch and temperature in face, upper extremities and lower extremities. No motor deficits in the in face, upper extremities and lower extremities. Normoreflexic in the upper and lower extremities. Normal speech. Toes are down- going bilaterally. Gait is normal without ataxia. PSYCHIATRIC: Cooperative. Good eye contact. Appropriate mood and affect. Heart Score/ECG Review - History History: Slightly suspicious - Electrocardiogram EKG: Normal - Age Age: >/= 65 - Risk Factors Risk Factors Heart Score: Yes Hx Hypertension, Yes Smoking History, Yes Hx Obesity Based on the list above the patient has:: >/=3 risk factors or Hx atherosclerotic disease ED Treatment Course - LABORATORY CBC & Chemistry Diagram: 06/10/17 23:30 06/10/17 23:30 - ADDITIONAL ORDERS Additional order review: Laboratory Results 06/10/17 06/10/17 23:30 23:30 Sodium 132 L Potassium 4.9 Chloride 99 Carbon Dioxide 25 Anion Gap 8 BUN 18 Creatinine 0.8 Creat Clearance w eGFR > 60 Random Glucose 110 H Calcium 8.9 Total Bilirubin 0.2 D AST 26 ALT 28 Alkaline Phosphatase 185 H Creatine Kinase 70 Troponin I < 0.02 Total Protein 7.1 Albumin 3.4 06/10/17 23:30 RBC 4.36 MCV 78.1 L MCHC 32.8 RDW 20.0 H MPV 7.5 Neutrophils % 42.3 L D Lymphocytes % 35.5 D Monocytes % 17.6 H Eosinophils % 3.6 Basophils % 1.0 - Medications Given in the ED: ED Medications Discontinued Medications Generic Name Dose Route Start Last Admin Trade Name Yonathanq PRN Reason Stop Dose Admin Acetaminophen 650 mg 06/11/17 03:45 06/11/17 04:15 Tylenol - PO 06/11/17 03:46 650 mg ONCE ONE Administration *DC/Admit/Observation/Transfer Diagnosis at time of Disposition: Atypical chest pain - Discharge Dispostion Disposition: HOME Condition at time of disposition: Stable Admit: No - Referrals Referrals: Adair Evans MD [Staff Physician] - - Patient Instructions Printed Discharge Instructions: DI for Atypical Chest Pain Additional Instructions: Tylenol alternating with Motrin as needed for pain Return to the Er for severe/persistent/worsening symptoms Follow up with cardiology/Dr. Dr. Evans - Post Discharge Activity
[2017-06-10 23:45] LABS: EOS % 3.6 % (0-4.5); HEMOGLOBIN 11.2 GM/dL (10.7-15.3); LYMPH % 35.5 % (8-40); MCH 25.6 pg (25.7-33.7); MCHC 32.8 g/dl (32.0-36.0); MEAN CELL VOLUME 78.1 fl (80-96); MEAN PLT VOLUME 7.5 fl (7.5-11.1); MONO % 17.6 % (3.8-10.2); NEUT % 42.3 % (42.8-82.8); PLATELET COUNT 290 K/MM3 (134-434); RBC 4.36 M/mm3 (3.60-5.2); WHITE BLOOD COUNT 4.3 K/mm3 (4.0-10.0)
[2017-06-11 00:06] LABS: ALBUMIN 3.4 g/dl (3.4-5.0); ALK PHOS 185 U/L (45-117); ANION GAP 8 (8-16); BILIRUBIN,TOTAL 0.2 mg/dL (0.2-1.0); BLOOD UREA NITROGEN 18 mg/dL (7-18); CALCIUM 8.9 mg/dL (8.5-10.1); CHLORIDE 99 mmol/L (98-107); CO2 25 mmol/L (21-32); CREATININE 0.8 mg/dL (0.55-1.02); GLUCOSE,RANDOM 110 mg/dL (74-106); POTASSIUM 4.9 mmol/L (3.5-5.1); SGOT/AST 26 U/L (15-37); SGPT/ALT 28 U/L (12-78); SODIUM 132 mmol/L (136-145); TOT PROT 7.1 g/dl (6.4-8.2)
[2017-06-11] MEDS ORDERED: ACETAMINOPHEN 325 MG TABLET (FP) PO ONE (03:45)
[2017-06-11] MEDS ORDERED: ACETAMINOPHEN 325 MG TABLET (FP) ONE (04:24)
[2017-06-11 06:03] VITALS: BP 133/67; TEMP 98.5
--- NOTE | 2017-06-14 10:37 | EKG ---
Test Reason : Blood Pressure : / mmHG Vent. Rate : 070 BPM Atrial Rate : 070 BPM P-R Int : 138 ms QRS Dur : 078 ms QT Int : 408 ms P-R-T Axes : 009 -12 012 degrees QTc Int : 440 ms NORMAL SINUS RHYTHM MINIMAL VOLTAGE CRITERIA FOR LVH, MAY BE NORMAL VARIANT BORDERLINE ECG WHEN COMPARED WITH ECG OF 30-MAY-2017 14:43, PREMATURE ATRIAL COMPLEXES ARE NO LONGER PRESENT Confirmed by LORENZO SEVILLA, ANNITA ([id number]) on 06/14/2017 10:37:22 AM Referred By: Confirmed By:ANNITA VENTURA MD
== END 2017-06-11 06:03 | disposition home or self-care (01) ==
LOC: JER 20:22
DX: R07.89 Other chest pain (principal); D64.9 Anemia, unspecified; I10 Essential (primary) hypertension; F41.8 Other specified anxiety disorders; Z87.19 Personal history of other diseases of the digestive system; E78.00 Pure hypercholesterolemia, unspecified; Z96.612 Presence of left artificial shoulder joint; Z96.611 Presence of right artificial shoulder joint
CPT/HCPCS: 36415; 80053; 82550; 84484; 85025; 93005; 93010; 99283-25

== ENCOUNTER 2017-06-17 20:12 | Emergency (ER) | payer OTHER ==
[2017-06-17 21:00] VITALS: TEMP 98.6; BMI 42.8
--- NOTE | 2017-06-17 21:27 | PDOC ---
History of Present Illness - General Chief Complaint: Pain Stated Complaint: CHEST PAIN Time Seen by Provider: 06/17/17 21:26 History Source: Patient Exam Limitations: No Limitations - History of Present Illness Initial Comments: 06/17/17 22:14 Pmhx: Hypertension, asthma, hyperlipidemia Pshx: Brain tumor resection Allergies: Aspirin/morphine This is a 71-year-old female who presents to the ER with midsternal chest pain. Patient has been in the emergency department numerous times over the past year for her chest pain. Patient has had numerous extensive workup which were all negative. Patient states her chest pain has been chronic for the past 5 months and denies any acute changes. Patient denies headache, dizziness, lightheadedness, nausea/vomiting, fever/chills, facial pains, neck stiffness/ pain, back pains, shortness of breath, abdominal pains, flank pains, urinary symptoms. Patient denies extremity numbness or tingling sensation. Past History - Past Medical History Allergies/Adverse Reactions: Allergies Allergy/AdvReac Type Severity Reaction Status Date / Time aspirin Allergy Severe "NERVOUS" Verified 06/17/17 20:57 morphine Allergy Severe "ANXIETY-DE Verified 06/17/17 20:57 SPERATION" Home Medications: Ambulatory Orders Dexlansoprazole [Dexilant] 60 mg PO DAILY 03/10/16 Escitalopram Oxalate [Lexapro -] 10 mg PO DAILY 03/10/16 Divalproex [Depakote -] 250 mg PO BID 12/15/16 Oxybutynin Chloride [Ditropan Xl] 15 mg PO DAILY 12/15/16 Quetiapine Fumarate [Seroquel -] 25 mg PO DAILY 12/15/16 Gabapentin 300 mg PO HS 01/19/17 Linaclotide [Linzess] 72 mcg PO DAILY 01/19/17 Lipase/Protease/Amylase [Kamari Nazario 36,000 Units Capsule] 1 each PO TID 01/19/17 Rifaximin [Xifaxan -] 550 mg PO TID 01/19/17 Sumatriptan Succinate [Imitrex -] 50 mg PO DAILY 01/19/17 Metoprolol Succinate [Toprol XL -] 25 mg PO DAILY #30 tab.sr.24h 02/06/17 Famotidine [Pepcid -] 20 mg PO DAILY #14 tablet 05/07/17 Polyethylene Glycol 3350 [Miralax (For Bowel Prep) -] 17 gm PO DAILY #1 bottle 05/28/17 Sulfamethoxazole/Trimethoprim [Bactrim Ds -] 1 tab PO BID #6 tablet 05/28/17 Anemia: Yes Asthma: No Cancer: No Cardiac Disorders: No 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, baseline confusion and dizziness) COPD: No CHF: No Dementia: No Diabetes: No GI Disorders: Yes (gerd, gastric ulcer, dysphagia) Disorders: Yes (kidney stone in the past) HTN: Yes Hypercholesterolemia: Yes Liver Disease: No Psychiatric Problems: Yes (ANXIETY DEPRESSION) Seizures: Yes (S/P craniotomy for benign tumor - on Depakote for seizure prophylaxis) Thyroid Disease: No - Surgical History Abdominal Surgery: Yes Appendectomy: No Cardiac Surgery: No Cholecystectomy: Yes Lung Surgery: No Neurologic Surgery: Yes (removal left meningioma) Orthopedic Surgery: Yes (Bilateral knee replacement) - Immunization History Td Vaccination: Yes TDAP Vaccination: No Immunization Up to Date: No - Suicide/Smoking/Psychosocial Hx Smoking Status: No Smoking History: Never smoked Have you smoked in the past 12 months: No Number of Cigarettes Smoked Daily: 0 Cigars Per Day: 0 Information on smoking cessation initiated: No Hx Alcohol Use: No Drug/Substance Use Hx: No Substance Use Type: None Hx Substance Use Treatment: No Cardiac Specific PMH - Complaint Specific PMHX Pacemaker: No Review of Systems - Review of Systems Able to Perform ROS?: Yes Comments:: 06/17/17 22:16 CONSTITUTIONAL: Absent: fever, chills, diaphoresis, generalized weakness, malaise, loss of appetite HEENT: Absent: rhinorrhea, nasal congestion, throat pain, throat swelling, difficulty swallowing, mouth swelling, ear pain, eye pain, visual Changes CARDIOVASCULAR: +Mid sternal cp Absent: loss of consciousness, palpitations, irregular heart rate, peripheral edema RESPIRATORY: Absent: cough, shortness of breath, dyspnea with exertion, orthopnea, wheezing, stridor, hemoptysis GASTROINTESTINAL: Absent: abdominal pain, abdominal distension, nausea, vomiting, diarrhea, constipation, melena, hematochezia GENITOURINARY: Absent: dysuria, frequency, urgency, hesitancy, hematuria, flank pain, genital pain MUSCULOSKELETAL: Absent: myalgia, arthralgia, joint swelling SKIN: Absent: rash, itching, pallor HEMATOLOGIC/IMMUNOLOGIC: Absent: easy bleeding, easy bruising, lymphadenopathy, frequent infections ENDOCRINE: Absent: unexplained weight gain, unexplained weight loss, heat intolerance, cold intolerance NEUROLOGIC: Absent: headache, focal weakness or paresthesias, dizziness, unsteady gait, seizure, mental status changes, bladder or bowel incontinence Is the patient limited Maltese proficient: No *Physical Exam - Vital Signs Last Vital Signs Temp Pulse Resp BP Pulse Ox 98.6 F 78 20 144/73 97 06/17/17 20:58 06/17/17 20:58 06/17/17 20:58 06/17/17 20:58 06/17/17 20:58 - Physical Exam Comments: 06/17/17 22:17 GENERAL: Well developed, well nourished. Awake and alert. No acute distress. HEENT: Normocephalic, atraumatic. PERRLA, EOMI. No conjunctival pallor. Sclera are non- icteric. Moist mucous membranes. Oropharynx is clear. NECK: Supple. Full ROM. No JVD. Carotid pulses 2+ and symmetric, without bruits. No thyromegaly. No lymphadenopathy. CARDIOVASCULAR: Regular rate and rhythm. No murmurs, rubs, or gallops. Distal pulses are 2+ and symmetric. PULMONARY: No evidence of respiratory distress. Lungs clear to auscultation bilaterally. No wheezing, rales or rhonchi. ABDOMINAL: Soft. Non-tender. Non-distended. No rebound or guarding. No organomegaly. Normoactive bowel sounds. MUSCULOSKELETAL Normal range of motion at all joints. No bony deformities or tenderness. No CVA tenderness. EXTREMITIES: No cyanosis. No clubbing. No edema. No calf tenderness. SKIN: Warm and dry. Normal capillary refill. No rashes. No jaundice. NEUROLOGICAL: Alert, awake, appropriate. Cranial nerves 2-12 intact. No deficits to light touch and temperature in face, upper extremities and lower extremities. No motor deficits in the in face, upper extremities and lower extremities. Normoreflexic in the upper and lower extremities. Normal speech. Toes are down- going bilaterally. Gait is normal without ataxia. PSYCHIATRIC: Cooperative. Good eye contact. Appropriate mood and affect. Heart Score/ECG Review - History History: Slightly suspicious - Electrocardiogram EKG: Normal - Age Age: >/= 65 - Risk Factors Risk Factors Heart Score: Yes Hx Hypercholesterolemia, Yes Hx Hypertension Based on the list above the patient has:: 1-2 risk factors - Troponin Troponin: </= normal limit - Score Heart Score - Total: 3 ED Treatment Course - LABORATORY CBC & Chemistry Diagram: 06/17/17 21:46 06/17/17 21:46 - ADDITIONAL ORDERS Additional order review: Laboratory Results 06/17/17 21:46 Sodium 132 L Potassium 5.1 Chloride 99 Carbon Dioxide 27 Anion Gap 6 L BUN 21 H Creatinine 0.7 Creat Clearance w eGFR > 60 Random Glucose 111 H Calcium 8.1 L Total Bilirubin 0.2 AST 31 ALT 38 Alkaline Phosphatase 202 H Creatine Kinase 59 Troponin I < 0.02 Total Protein 6.9 Albumin 3.1 L 06/17/17 21:46 RBC 3.97 MCV 77.0 L MCHC 32.8 RDW 19.4 H MPV 7.5 Neutrophils % 60.2 D Lymphocytes % 21.4 D Monocytes % 15.1 H Eosinophils % 2.9 Basophils % 0.4 - RADIOLOGY Radiology Studies Ordered: Category Date Time Status CHEST PA & LAT [RAD] Stat Radiology 06/17/17 21:44 Taken *DC/Admit/Observation/Transfer Diagnosis at time of Disposition: Atypical chest pain - Discharge Dispostion Condition at time of disposition: Stable Admit: No - Referrals Referrals: Waldo Mabry MD [Primary Care Provider] - - Patient Instructions - Post Discharge Activity
--- NOTE | 2017-06-17 21:39 | PDOC ---
*Physical Exam - Vital Signs Last Vital Signs Temp Pulse Resp BP Pulse Ox 98.6 F 78 20 144/73 97 06/17/17 20:58 06/17/17 20:58 06/17/17 20:58 06/17/17 20:58 06/17/17 20:58 ED Treatment Course - LABORATORY CBC & Chemistry Diagram: 06/17/17 21:46 06/17/17 21:46 Medical Decision Making - Medical Decision Making 06/19/17 08:52 Ms Sumner is a 71 yo F who has multiple presentations for chest pain. She presents today with a complaint of midsternal chest pain which she says has actually been chronic. She denies nausea/vomiting, dizziness, lightheadedness Labs sent They are unremarkable Pt upon re assessment, she states she feels well, chest pain resolved Agree with BABAK Anna's plan Will discharge to home Clinical impression: Chest pain, initial presentation *DC/Admit/Observation/Transfer Diagnosis at time of Disposition: Atypical chest pain - Discharge Dispostion Disposition: HOME Condition at time of disposition: Stable - Referrals Referrals: Waldo Mabry MD [Primary Care Provider] - - Patient Instructions - Post Discharge Activity
[2017-06-17 21:54] LABS: BASO % 0.4 % (0-2.0); EOS % 2.9 % (0-4.5); HEMATOCRIT 30.6 % (32.4-45.2); LYMPH % 21.4 % (8-40); MCH 25.2 pg (25.7-33.7); MCHC 32.8 g/dl (32.0-36.0); MEAN PLT VOLUME 7.5 fl (7.5-11.1); MONO % 15.1 % (3.8-10.2); NEUT % 60.2 % (42.8-82.8); PLATELET COUNT 261 K/MM3 (134-434); RBC 3.97 M/mm3 (3.60-5.2); RDW 19.4 % (11.6-15.6); WHITE BLOOD COUNT 5.4 K/mm3 (4.0-10.0)
[2017-06-17 22:23] LABS: ALBUMIN 3.1 g/dl (3.4-5.0); ANION GAP 6 (8-16); BILIRUBIN,TOTAL 0.2 mg/dL (0.2-1.0); BLOOD UREA NITROGEN 21 mg/dL (7-18); CALCIUM 8.1 mg/dL (8.5-10.1); CHLORIDE 99 mmol/L (98-107); CO2 27 mmol/L (21-32); CREATININE 0.7 mg/dL (0.55-1.02); GLUCOSE,RANDOM 111 mg/dL (74-106); POTASSIUM 5.1 mmol/L (3.5-5.1); SGOT/AST 31 U/L (15-37); SGPT/ALT 38 U/L (12-78); SODIUM 132 mmol/L (136-145); TOT PROT 6.9 g/dl (6.4-8.2)
[2017-06-17 22:26] LABS: ALK PHOS 202 U/L (45-117)
[2017-06-18 02:34] VITALS: BP 144/72; PULSE 76
--- NOTE | 2017-06-18 14:30 | EKG ---
Test Reason : Blood Pressure : / mmHG Vent. Rate : 073 BPM Atrial Rate : 073 BPM P-R Int : 162 ms QRS Dur : 082 ms QT Int : 398 ms P-R-T Axes : 022 011 022 degrees QTc Int : 438 ms NORMAL SINUS RHYTHM NORMAL ECG WHEN COMPARED WITH ECG OF 16-JUN-2017 23:21, NO SIGNIFICANT CHANGE WAS FOUND Confirmed by MD Dominguez Daniel ([id number]) on 06/18/2017 2:30:30 PM Referred By: Confirmed By:Kirit Dominguez MD
== END 2017-06-18 02:43 | disposition home or self-care (01) ==
LOC: JER 20:12
DX: R07.89 Other chest pain (principal); I10 Essential (primary) hypertension; E78.00 Pure hypercholesterolemia, unspecified; K21.9 Gastro-esophageal reflux disease without esophagitis; F41.9 Anxiety disorder, unspecified; F32.9 Major depressive disorder, single episode, unspecified; G40.909 Epilepsy, unspecified, not intractable, without status epilepticus; I69.893 Ataxia following other cerebrovascular disease; Z96.653 Presence of artificial knee joint, bilateral; Z87.19 Personal history of other diseases of the digestive system
CPT/HCPCS: 36415; 71046-TC-FY; 80053; 82550; 84484; 85025; 93005; 93010; 99282-25

== ENCOUNTER 2017-06-19 18:39 | Emergency (ER) | payer OTHER ==
[2017-06-19 19:06] VITALS: BP 142/69; PULSE 79; TEMP 98.7; BMI 35.2
--- NOTE | 2017-06-19 19:06 | PDOC ---
Rapid Medical Evaluation Time Seen by Provider: 06/19/17 19:05 Medical Evaluation: Allergies Allergy/AdvReac Type Severity Reaction Status Date / Time aspirin Allergy Severe "NERVOUS" Verified 06/19/17 19:03 morphine Allergy Severe "ANXIETY-DE Verified 06/19/17 19:03 SPERATION" Vital Signs Temp Pulse Resp BP Pulse Ox 98.7 F 79 18 142/69 97 06/19/17 19:03 06/19/17 19:03 06/19/17 19:03 06/19/17 19:03 06/19/17 19:03 I have performed a brief in-person evaluation of this patient. The patient presents with a chief complaint of: midsternal chest pain and headache. She has been seen for the same symptoms, numerous times over the past year, with her last visit and normal findings 2 days ago on 06/17/17. Pertinent physical exam findings: none I have ordered the following: labs, EKG The patient will proceed to the ED for further evaluation.
[2017-06-19 19:58] LABS: BASO % 0.4 % (0-2.0); HEMOGLOBIN 10.3 GM/dL (10.7-15.3); MCH 25.7 pg (25.7-33.7); MCHC 33.2 g/dl (32.0-36.0); MEAN CELL VOLUME 77.2 fl (80-96); MEAN PLT VOLUME 7.4 fl (7.5-11.1); MONO % 15.3 % (3.8-10.2); NEUT % 56.3 % (42.8-82.8); PLATELET COUNT 265 K/MM3 (134-434); RBC 4.01 M/mm3 (3.60-5.2); RDW 19.4 % (11.6-15.6); WHITE BLOOD COUNT 5.4 K/mm3 (4.0-10.0)
[2017-06-19 20:23] LABS: ALBUMIN 3.1 g/dl (3.4-5.0); ALK PHOS 205 U/L (45-117); ANION GAP 8 (8-16); BILIRUBIN,TOTAL 0.4 mg/dL (0.2-1.0); BLOOD UREA NITROGEN 13 mg/dL (7-18); CHLORIDE 94 mmol/L (98-107); CO2 27 mmol/L (21-32); CREATININE 0.5 mg/dL (0.55-1.02); GLUCOSE,RANDOM 102 mg/dL (74-106); POTASSIUM 4.7 mmol/L (3.5-5.1); SGOT/AST 38 U/L (15-37); SGPT/ALT 40 U/L (12-78); SODIUM 129 mmol/L (136-145)
--- NOTE | 2017-06-19 20:51 | PDOC ---
History of Present Illness - General History Source: Patient, Old Records Exam Limitations: No Limitations - History of Present Illness Initial Comments: 06/19/17 21:25 The patient is a 71 year old female, with a significant past medical history of asthma, hypertension, hyperlipidemia and brain tumor s/p resection, who presents to the emergency department with chronic constant radiating chest pain for the past two months but worsening over the past two days. The patient describes the pain as squeezing and reports that the pain radiates to her shoulder. The patient additionally reports a headache and feeling slightly lightheaded. Denies thunderclap quality to the headache and denies that this headache is the worst of her life. The patient has been seen in this ED multiple times over the past year (most recently on 06/17/17) with similar symptoms and has had an extensive negative cardiac workup with no clear etiology. The patient states that her symptoms feel the same as the chest pain she has been experiencing over the past couple of months. Denies fever, chills, shortness of breath, nausea, vomiting, diarrhea, constipation or dysuria. Allergies: Aspirin, Morphine. Past Surgical History: Left meningioma removal; Cholecystectomy; Bilateral Knee Replacements. Social History: Non-smoker. Denies alcohol or drug use. PCP: Dr. 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, baseline confusion and dizziness) COPD: No CHF: No Dementia: No Diabetes: No GI Disorders: Yes (gerd, gastric ulcer, dysphagia) Disorders: Yes (kidney stone in the past) HTN: Yes Hypercholesterolemia: Yes Liver Disease: No Psychiatric Problems: Yes (ANXIETY DEPRESSION) Seizures: Yes (S/P craniotomy for benign tumor - on Depakote for seizure prophylaxis) Thyroid Disease: No - Surgical History Abdominal Surgery: Yes Appendectomy: No Cardiac Surgery: No Cholecystectomy: Yes Lung Surgery: No Neurologic Surgery: Yes (removal left meningioma) Orthopedic Surgery: Yes (Bilateral knee replacement) - Immunization History Td Vaccination: Yes TDAP Vaccination: No Immunization Up to Date: No - Suicide/Smoking/Psychosocial Hx Smoking Status: No Smoking History: Never smoked Have you smoked in the past 12 months: No Number of Cigarettes Smoked Daily: 0 Cigars Per Day: 0 Hx Alcohol Use: No Drug/Substance Use Hx: No Substance Use Type: None Hx Substance Use Treatment: No <Rich Tolbert - Last Filed: 06/19/17 23:06> - Past Medical History Allergies/Adverse Reactions: Allergies Allergy/AdvReac Type Severity Reaction Status Date / Time aspirin Allergy Severe "NERVOUS" Verified 06/19/17 19:03 morphine Allergy Severe "ANXIETY-DE Verified 06/19/17 19:03 SPERATION" Home Medications: Ambulatory Orders Dexlansoprazole [Dexilant] 60 mg PO DAILY 03/10/16 Escitalopram Oxalate [Lexapro -] 10 mg PO DAILY 03/10/16 Divalproex [Depakote -] 250 mg PO BID 12/15/16 Oxybutynin Chloride [Ditropan Xl] 15 mg PO DAILY 12/15/16 Quetiapine Fumarate [Seroquel -] 25 mg PO DAILY 12/15/16 Gabapentin 300 mg PO HS 01/19/17 Linaclotide [Linzess] 72 mcg PO DAILY 01/19/17 Lipase/Protease/Amylase [Creon Dr 36,000 Units Capsule] 1 each PO TID 01/19/17 Rifaximin [Xifaxan -] 550 mg PO TID 01/19/17 Sumatriptan Succinate [Imitrex -] 50 mg PO DAILY 01/19/17 Metoprolol Succinate [Toprol XL -] 25 mg PO DAILY #30 tab.sr.24h 02/06/17 Famotidine [Pepcid -] 20 mg PO DAILY #14 tablet 05/07/17 Polyethylene Glycol 3350 [Miralax (For Bowel Prep) -] 17 gm PO DAILY #1 bottle 05/28/17 Sulfamethoxazole/Trimethoprim [Bactrim Ds -] 1 tab PO BID #6 tablet 05/28/17 Review of Systems - Review of Systems Able to Perform ROS?: Yes Comments:: 06/19/17 21:15 A complete review of 10 out of 10 review of systems is taken and is negative apart from what is previously mentioned below and in the HPI. <Sue Lyles - Last Filed: 06/19/17 21:41> *Physical Exam - Vital Signs Last Vital Signs Temp Pulse Resp BP Pulse Ox 98.7 F 79 18 142/69 97 06/19/17 19:03 06/19/17 19:03 06/19/17 19:03 06/19/17 19:03 06/19/17 19:03 - Physical Exam Comments: 06/19/17 21:15 Vitals: Triage vital signs reviewed. General Appearance: No acute distress, well nourished, well developed. Head: Atraumatic, normocephalic. Eyes: Pupils equal round reactive, extraocular movements intact. Neck: Supple. No nuchal rigidity. Chest Wall: Nontender. Cardiac: Regular rate and rhythm. No murmurs, no rubs, no gallops. Lungs: Clear to auscultation bilaterally, good air movement bilaterally. Abdomen: Epigastric tenderness to palpation. Soft, nondistended, normal bowel sounds. Rectal: Exam deferred. Extremities: Full range of motion to all extremities, no cyanosis, clubbing, or edema. Skin: Warm and dry, no rashes or lesions, no petechiae. Psych: Normal mood, normal affect. <Sue Lyles - Last Filed: 06/19/17 21:41> - Vital Signs Last Vital Signs Temp Pulse Resp BP Pulse Ox 98.7 F 79 18 142/69 97 06/19/17 19:03 06/19/17 19:03 06/19/17 19:03 06/19/17 19:03 06/19/17 19:03 <Rich Tolbert - Last Filed: 06/19/17 23:06> Heart Score/ECG Review - ECG Impressions Comment:: 06/19/17 22:22 EKG performed at 1854. Demonstrates sinus rhythm 77 bpm. PA 146. QRS 86. QTC 448. Normal axis. No ST elevations. No T-wave inversions. Interpreted by me. <Rich Tolbert - Last Filed: 06/19/17 23:06> ED Treatment Course - LABORATORY CBC & Chemistry Diagram: 06/19/17 19:43 06/19/17 19:43 - ADDITIONAL ORDERS Additional order review: Laboratory Results 06/19/17 19:43 Sodium 129 L Potassium 4.7 Chloride 94 L Carbon Dioxide 27 Anion Gap 8 BUN 13 Creatinine 0.5 L Creat Clearance w eGFR > 60 Random Glucose 102 Calcium 8.0 L Total Bilirubin 0.4 D AST 38 H ALT 40 Alkaline Phosphatase 205 H Creatine Kinase 67 Troponin I < 0.02 Total Protein 7.0 Albumin 3.1 L 06/19/17 19:43 RBC 4.01 MCV 77.2 L MCHC 33.2 RDW 19.4 H MPV 7.4 L Neutrophils % 56.3 Lymphocytes % 26.0 D Monocytes % 15.3 H Eosinophils % 2.0 Basophils % 0.4 <Sue Lyles - Last Filed: 06/19/17 21:41> - LABORATORY CBC & Chemistry Diagram: 06/19/17 19:43 06/19/17 19:43 - ADDITIONAL ORDERS Additional order review: Laboratory Results 06/19/17 19:43 Sodium 129 L Potassium 4.7 Chloride 94 L Carbon Dioxide 27 Anion Gap 8 BUN 13 Creatinine 0.5 L Creat Clearance w eGFR > 60 Random Glucose 102 Calcium 8.0 L Total Bilirubin 0.4 D AST 38 H ALT 40 Alkaline Phosphatase 205 H Creatine Kinase 67 Troponin I < 0.02 Total Protein 7.0 Albumin 3.1 L 06/19/17 19:43 RBC 4.01 MCV 77.2 L MCHC 33.2 RDW 19.4 H MPV 7.4 L Neutrophils % 56.3 Lymphocytes % 26.0 D Monocytes % 15.3 H Eosinophils % 2.0 Basophils % 0.4 <Rich Tolbert - Last Filed: 06/19/17 23:06> Medical Decision Making - Medical Decision Making 06/19/17 21:25 The patient is a 71 year old female, with a significant past medical history of asthma, hypertension, hyperlipidemia and brain tumor s/p resection, who presents to the emergency department with chronic constant radiating chest pain for the past two months but worsening over the past two days. The patient describes the pain as squeezing and reports that the pain radiates to her shoulder. The patient additionally reports a headache and feeling slightly lightheaded. Denies thunderclap quality to the headache and denies that this headache is the worst of her life. The patient has been seen in this ED multiple times over the past year (most recently on 06/17/17) with similar symptoms and has had an extensive negative cardiac workup with no clear etiology. The patient states that her symptoms feel the same as the chest pain she has been experiencing over the past couple of months. Denies fever, chills, shortness of breath, nausea, vomiting, diarrhea, constipation or dysuria. Allergies: Aspirin, Morphine. Past Surgical History: Left meningioma removal; Cholecystectomy; Bilateral Knee Replacements. Social History: Non-smoker. Denies alcohol or drug use. PCP: Dr. Mabry <Sue Lyles - Last Filed: 06/19/17 21:41> - Medical Decision Making Patient presents with exacerbation of her chronic chest wall pain. Patient states she has this pain every single day but over the last 2 days has been worse. Thorough chart review performed that showed multiple evaluations for same We'll perform EKG GI cocktail troponin 2 observe and reassess Reevaluation status post check cocktail patient feels somewhat better EKG nonischemic. Troponin negative 1. Second troponin hemolyzed. Patient does not want to stay for repeat. Currently chest pain-free complaining of only mild headache would prefer to return home. Given three-day history with negative first troponin and normal EKG patient's MACE less than 2% heart score 3 Patient advised to follow-up with her primary care provider as well as GI Findings, need for follow-up, strict return instructions discussed with patient. 06/19/17 23:04 <Rich Tolbert - Last Filed: 06/19/17 23:06> *DC/Admit/Observation/Transfer - Attestations Scribe Attestion: 06/19/17 21:16 Documentation prepared by Sue Lyles, acting as certified medical technician for Rich Tolbert MD. <Sue Lyles - Last Filed: 06/19/17 21:41> - Discharge Dispostion Admit: No <Rich Tolbert - Last Filed: 06/19/17 23:06> Diagnosis at time of Disposition: Atypical chest pain - Discharge Dispostion Disposition: HOME Condition at time of disposition: Good - Referrals Referrals: Waldo Mabry MD [Primary Care Provider] - - Patient Instructions Printed Discharge Instructions: DI for Atypical Chest Pain Additional Instructions: Rest hydrate follow-up with your primary care provider tomorrow. Return to emergency prompt for severe worsening symptoms or for any concerns. - Post Discharge Activity
[2017-06-19] MEDS ORDERED: SODIUM CHLORIDE 0.9% 1000 ML INFUS.BAG IV ONE (21:13)
[2017-06-19] MEDS ORDERED: ACETAMINOPHEN 1000 MG/100 ML VIAL (NON FORMULARY) IVPB ONE (21:13)
[2017-06-19] MEDS ORDERED: ONDANSETRON 4 MG/2 ML VIAL IVPUSH ONE (21:36)
[2017-06-19] MEDS ORDERED: FAMOTIDINE IV 20 MG/12 ML VIAL IVPUSH SCH (22:00)
[2017-06-19] MEDS ORDERED: ACETAMINOPHEN INJECTION 100 ML IVPB ONE (22:10)
[2017-06-19] MEDS ORDERED: ONDANSETRON 4 MG/2 ML VIAL ONE (22:17)
[2017-06-19] MEDS ORDERED: FAMOTIDINE 20 MG/50 ML IVPB 20 MG/50 ML MG IVPB ONE (22:17)
--- NOTE | 2017-06-20 10:03 | EKG ---
Test Reason : Blood Pressure : / mmHG Vent. Rate : 077 BPM Atrial Rate : 077 BPM P-R Int : 146 ms QRS Dur : 086 ms QT Int : 396 ms P-R-T Axes : 013 006 022 degrees QTc Int : 448 ms NORMAL SINUS RHYTHM NORMAL ECG WHEN COMPARED WITH ECG OF 17-JUN-2017 22:05, NO SIGNIFICANT CHANGE WAS FOUND Confirmed by MD Montero Edward ([id number]) on 06/20/2017 10:02:46 AM Referred By: Confirmed By:Darian Montero MD
== END 2017-06-19 23:23 | disposition home or self-care (01) ==
LOC: JER 18:39
PROC: 3E033GC Introduction of Other Therapeutic Substance into Peripheral Vein, Percutaneous Approach (ICD-10-PCS; principal; 2017-06-19)
PROC: 3E033GC Introduction of Other Therapeutic Substance into Peripheral Vein, Percutaneous Approach (ICD-10-PCS; 2017-06-19)
DX: R07.89 Other chest pain (principal); I10 Essential (primary) hypertension; J45.909 Unspecified asthma, uncomplicated; E78.5 Hyperlipidemia, unspecified; E78.00 Pure hypercholesterolemia, unspecified; G40.909 Epilepsy, unspecified, not intractable, without status epilepticus; Z87.19 Personal history of other diseases of the digestive system; I69.818 Other symptoms and signs involving cognitive functions following other cerebrovascular disease; Z87.442 Personal history of urinary calculi; Z88.8 Allergy status to other drugs, medicaments and biological substances
CPT/HCPCS: 36415; 71045-TC-FY; 80053; 82550; 84484; 85025; 93005; 93010; 96365; 96375; 99283-25; J0131; J7030

== ENCOUNTER 2017-06-24 14:19 | Emergency (ER) | payer OTHER ==
[2017-06-24 14:28] VITALS: BP 128/77; TEMP 98.3; BMI 32.9
--- NOTE | 2017-06-24 14:45 | PDOC ---
History of Present Illness - General Chief Complaint: Chest Pain Stated Complaint: CHEST PAIN Time Seen by Provider: 06/24/17 14:29 History Source: Patient Exam Limitations: No Limitations - History of Present Illness Initial Comments: 06/24/17 18:32 Patient is a 71-year-old female past medical hypertension, COPD, HLD, who presents emergency department today complaining of chest pain. Patient is well- known to the emergency department. Patient states that every time she moves or takes a deep breath her chest pain gets worse. She also admits to nausea and headache. She was seen on 06/20/17 with similar symptoms. Patient states she is also very anxious at this time. Has not taken her anxiety medications today. Denies fevers, chills, shortness of breath, difficulty breathing, edema, vomiting, diarrhea, frequency, urgency and hematuria. Past History - Travel Traveled outside of the country in the last 30 days: No Close contact w/someone who was outside of country & ill: No - Past Medical History Allergies/Adverse Reactions: Allergies Allergy/AdvReac Type Severity Reaction Status Date / Time aspirin Allergy Severe "NERVOUS" Verified 06/24/17 14:21 morphine Allergy Severe "ANXIETY-DE Verified 06/24/17 14:21 SPERATION" Home Medications: Ambulatory Orders Dexlansoprazole [Dexilant] 60 mg PO DAILY 03/10/16 Escitalopram Oxalate [Lexapro -] 10 mg PO DAILY 03/10/16 Divalproex [Depakote -] 250 mg PO BID 12/15/16 Oxybutynin Chloride [Ditropan Xl] 15 mg PO DAILY 12/15/16 Quetiapine Fumarate [Seroquel -] 25 mg PO DAILY 12/15/16 Gabapentin 300 mg PO HS 01/19/17 Linaclotide [Linzess] 72 mcg PO DAILY 01/19/17 Lipase/Protease/Amylase [Kamari Nazario 36,000 Units Capsule] 1 each PO TID 01/19/17 Rifaximin [Xifaxan -] 550 mg PO TID 01/19/17 Sumatriptan Succinate [Imitrex -] 50 mg PO DAILY 01/19/17 Metoprolol Succinate [Toprol XL -] 25 mg PO DAILY #30 tab.sr.24h 02/06/17 Famotidine [Pepcid -] 20 mg PO DAILY #14 tablet 05/07/17 Polyethylene Glycol 3350 [Miralax (For Bowel Prep) -] 17 gm PO DAILY #1 bottle 05/28/17 Sulfamethoxazole/Trimethoprim [Bactrim Ds -] 1 tab PO BID #6 tablet 05/28/17 Anemia: Yes Asthma: No Cancer: No Cardiac Disorders: No 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, baseline confusion and dizziness) COPD: No CHF: No Dementia: No Diabetes: No GI Disorders: Yes (gerd, gastric ulcer, dysphagia) Disorders: Yes (kidney stone in the past) HTN: Yes Hypercholesterolemia: Yes Liver Disease: No Psychiatric Problems: Yes (ANXIETY DEPRESSION) Seizures: Yes (S/P craniotomy for benign tumor - on Depakote for seizure prophylaxis) Thyroid Disease: No - Surgical History Abdominal Surgery: Yes Appendectomy: No Cardiac Surgery: No Cholecystectomy: Yes Lung Surgery: No Neurologic Surgery: Yes (removal left meningioma) Orthopedic Surgery: Yes (Bilateral knee replacement) - Immunization History Td Vaccination: Yes TDAP Vaccination: No Immunization Up to Date: No - Suicide/Smoking/Psychosocial Hx Smoking Status: No Smoking History: Unknown if ever smoked Have you smoked in the past 12 months: No Number of Cigarettes Smoked Daily: 0 Cigars Per Day: 0 Hx Alcohol Use: No Drug/Substance Use Hx: No Substance Use Type: None Hx Substance Use Treatment: No Review of Systems - Review of Systems Able to Perform ROS?: Yes Comments:: 06/24/17 14:34 CONSTITUTIONAL: Absent: fever, chills, diaphoresis, generalized weakness, malaise, loss of appetite HEENT: Absent: rhinorrhea, nasal congestion, throat pain, throat swelling, difficulty swallowing, mouth swelling, ear pain, eye pain, visual Changes CARDIOVASCULAR: Present: chest pain Absent: chest pain, loss of consciousness, palpitations, irregular heart rate, peripheral edema RESPIRATORY: Absent: cough, shortness of breath, dyspnea with exertion, orthopnea, wheezing, stridor, hemoptysis GASTROINTESTINAL: Present: nausea Absent: abdominal pain, abdominal distension, nausea, vomiting, diarrhea, constipation, melena, hematochezia GENITOURINARY: Absent: dysuria, frequency, urgency, hesitancy, hematuria, flank pain, genital pain MUSCULOSKELETAL: Absent: myalgia, arthralgia, joint swelling SKIN: Absent: rash, itching, pallor HEMATOLOGIC/IMMUNOLOGIC: Absent: easy bleeding, easy bruising, lymphadenopathy, frequent infections ENDOCRINE: Absent: unexplained weight gain, unexplained weight loss, heat intolerance, cold intolerance NEUROLOGIC: Present: headache Absent: focal weakness or paresthesias, dizziness, unsteady gait, seizure, mental status changes, bladder or bowel incontinence PSYCHIATRIC: Absent: anxiety, depression, suicidal or homicidal ideation, hallucinations. Is the patient limited Turkmen proficient: No *Physical Exam - Vital Signs Last Vital Signs Temp Pulse Resp BP Pulse Ox 98.3 F 92 H 24 128/77 93 L 06/24/17 14:21 06/24/17 14:21 06/24/17 14:21 06/24/17 14:21 06/24/17 14:21 - Physical Exam Comments: 06/24/17 14:59 GENERAL: Well developed, well nourished. Awake and alert. No acute distress. HEENT: Normocephalic, atraumatic. PERRLA, EOMI. No conjunctival pallor. Sclera are non- icteric. Moist mucous membranes. Oropharynx is clear. NECK: Supple. Full ROM. No JVD. Carotid pulses 2+ and symmetric, without bruits. No thyromegaly. No lymphadenopathy. CARDIOVASCULAR: Regular rate and rhythm. No murmurs, rubs, or gallops. Distal pulses are 2+ and symmetric. Pain to palpation of chest wall. PULMONARY: No evidence of respiratory distress. Lungs clear to auscultation bilaterally. No wheezing, rales or rhonchi. ABDOMINAL: Diffusely tender with no focal findings. Soft. Non-distended. No rebound or guarding. No organomegaly. Normoactive bowel sounds. MUSCULOSKELETAL Normal range of motion at all joints. No bony deformities or tenderness. No CVA tenderness. EXTREMITIES: No cyanosis. No clubbing. No edema. No calf tenderness. SKIN: Warm and dry. Normal capillary refill. No rashes. No jaundice. NEUROLOGICAL: Alert, awake, appropriate. Cranial nerves 2-12 intact. No deficits to light touch and temperature in face, upper extremities and lower extremities. No motor deficits in the in face, upper extremities and lower extremities. Normoreflexic in the upper and lower extremities. Normal speech. Toes are down- going bilaterally. Gait is normal without ataxia. PSYCHIATRIC: Cooperative. Good eye contact. Appropriate mood and affect. Heart Score/ECG Review - History History: Slightly suspicious - Electrocardiogram EKG: Normal - Age Age: >/= 65 - Risk Factors Risk Factors Heart Score: Yes Hx Hypercholesterolemia, Yes Hx Hypertension Based on the list above the patient has:: 1-2 risk factors - Troponin Troponin: </= normal limit - Score Heart Score - Total: 3 ED Treatment Course - LABORATORY CBC & Chemistry Diagram: 06/24/17 14:54 06/24/17 14:54 Medical Decision Making - Medical Decision Making 06/24/17 18:35 Patient is a 71-year-old female with past medical history significant for hypertension, HLD, COPD, just the emergency department with chest pain. On exam pain is very reproducible and the pain is worse when touching the chest wall. Patient also has diffuse abdominal tenderness with no focal findings at this time. Patient overall appears comfortable in bed. Treated symptomatically at this time with Reglan, Benadryl, Pepcid and IV Tylenol. Patient reports relief of her symptoms. Lab work shows a hemoglobin of 9.6 which is slightly down from last visit at 10.2. Asymptomatic At this time now. No leukocytosis, BUN slightly elevated at 19, otherwise CMP unremarkable. Urine shows no infection. We'll discharge home at this time. I suspect the patient is lonely at home and has a lot of anxiety about being home alone. Patient was with aid at beginning of visit who states that they have to AIDS for the daytime but no AIDS for nighttime. Patient states that she is very lonely at home. Recommends calling her social media marketer to reevaluate her aid service time. Return precautions given. Patient has all discharge instructions and all questions were answered. EKG: Rate 85 bpm, Normal intervals normal axis. No acute ST-T changes. Normal sinus rhythm, no changes from old EKG. Normal EKG. *DC/Admit/Observation/Transfer Diagnosis at time of Disposition: Atypical chest pain - Discharge Dispostion Disposition: HOME Condition at time of disposition: Stable Decision to Admit order: No - Referrals Referrals: Waldo Mabry MD [Primary Care Provider] - - Patient Instructions Printed Discharge Instructions: DI for Atypical Chest Pain Additional Instructions: Your lab work and EKG were normal today. Please call your social media marketer and see if you can have an evening aid. Please continue to monitor your chest pain. Please take all your medications as prescribed. Please follow up with her primary care doctor this week. Return to the emergency department if you have worsening pain, nausea, vomiting , headache, lightheadedness, or if you have any changes in your symptoms. Perla trabajo de laboratorio y electrocardiograma fueron normales hoy. Por favor llame a devorah servicios sociales y diogo si puede tener tavo ayuda de noche. Por favor, contine controlando perla dolor en el pecho. Por favor tome todos devorah medicamentos segn lo recetado. Por favor, karol un seguimiento con perla mdico de atencin primaria esta semana. Regrese al servicio de urgencias si tiene un empeoramiento del dolor, nuseas, v mitos, dolor de carlos, aturdimiento o si tiene algn cambio en devorah sntomas. - Post Discharge Activity
[2017-06-24] MEDS ORDERED: METOCLOPRAMIDE HCL INJECTION 10 MG/2 ML VIAL IVPB ONE (14:57)
[2017-06-24] MEDS ORDERED: FAMOTIDINE IV 20 MG/12 ML VIAL IVPB ONE (14:58)
[2017-06-24] MEDS ORDERED: ACETAMINOPHEN 1000 MG/100 ML VIAL (NON FORMULARY) IVPB ONE (14:58)
[2017-06-24 15:01] LABS: BASO % 0.6 % (0-2.0); HEMATOCRIT 28.6 % (32.4-45.2); HEMOGLOBIN 9.6 GM/dL (10.7-15.3); LYMPH % 24.2 % (8-40); MCH 25.9 pg (25.7-33.7); MCHC 33.6 g/dl (32.0-36.0); MEAN PLT VOLUME 7.1 fl (7.5-11.1); NEUT % 53.2 % (42.8-82.8); PLATELET COUNT 304 K/MM3 (134-434); RBC 3.71 M/mm3 (3.60-5.2); WHITE BLOOD COUNT 5.9 K/mm3 (4.0-10.0)
[2017-06-24] MEDS ORDERED: diazePAM CARPU-JECT 10 MG/2 ML DISP.SYRIN IVPUSH ONE (15:01)
[2017-06-24] MEDS ORDERED: diazePAM 2 MG TABLET ONE ×2 (15:04→15:45)
[2017-06-24] MEDS ORDERED: METOCLOPRAMIDE HCL INJECTION 10 MG/2 ML VIAL ONE (15:04)
[2017-06-24] MEDS ORDERED: ACETAMINOPHEN INJECTION 100 ML IVPB ONE (15:04)
[2017-06-24] MEDS ORDERED: FAMOTIDINE 20 MG/50 ML IVPB 20 MG/50 ML MG IVPB ONE (15:05)
[2017-06-24 15:13] LABS: INR 1.03 (0.82-1.09); PROTHROMBIN TIME (PATIENT) 11.6 SEC (9.7-13.0)
[2017-06-24 15:27] LABS: ANION GAP 5 (8-16); BILIRUBIN,TOTAL 0.2 mg/dL (0.2-1.0); CHLORIDE 98 mmol/L (98-107); CO2 28 mmol/L (21-32); CREATININE 0.7 mg/dL (0.55-1.02); GLUCOSE,RANDOM 105 mg/dL (74-106); MAGNESIUM 2.3 mg/dL (1.8-2.4); POTASSIUM 4.7 mmol/L (3.5-5.1); SGOT/AST 25 U/L (15-37); SGPT/ALT 28 U/L (12-78); SODIUM 131 mmol/L (136-145); TOT PROT 6.5 g/dl (6.4-8.2)
[2017-06-24 15:28] LABS: ALK PHOS 200 U/L (45-117); BLOOD UREA NITROGEN 21 mg/dL (7-18)
[2017-06-24] MEDS ORDERED: diazePAM 2 MG TABLET PO ONE (15:48)
[2017-06-24 16:13] VITALS: PULSE 82
[2017-06-24 17:35] LABS: URINE APPEARANCE CLEAR; URINE BILIRUBIN NEGATIVE (<2.0 mg/dL); URINE COLOR LTYELLOW; URINE GLUCOSE (UA) NEGATIVE (NEGATIVE); URINE KETONE NEGATIVE (NEGATIVE); URINE LEUK ESTERASE NEGATIVE (NEGATIVE); URINE NITRITE NEGATIVE (NEGATIVE); URINE PROTEIN NEGATIVE (NEGATIVE); URINE UROBILINOGEN NEGATIVE mg/dL (0.2-1.0)
[2017-06-24 18:09] LABS: EPI CELLS RARE /HPF (FEW)
--- NOTE | 2017-06-25 13:26 | EKG ---
Test Reason : Blood Pressure : / mmHG Vent. Rate : 085 BPM Atrial Rate : 085 BPM P-R Int : 158 ms QRS Dur : 072 ms QT Int : 374 ms P-R-T Axes : 023 -08 005 degrees QTc Int : 445 ms NORMAL SINUS RHYTHM MINIMAL VOLTAGE CRITERIA FOR LVH, MAY BE NORMAL VARIANT BORDERLINE ECG WHEN COMPARED WITH ECG OF 19-JUN-2017 18:54, NO SIGNIFICANT CHANGE WAS FOUND Confirmed by LORENZO SEVILLA, ANNITA ([id number]) on 06/25/2017 1:25:56 PM Referred By: Confirmed By:ANNITA VENTURA MD
== END 2017-06-24 19:21 | disposition home or self-care (01) ==
LOC: JER 14:19
PROC: 3E033GC Introduction of Other Therapeutic Substance into Peripheral Vein, Percutaneous Approach (ICD-10-PCS; principal; 2017-06-24)
PROC: 3E033GC Introduction of Other Therapeutic Substance into Peripheral Vein, Percutaneous Approach (ICD-10-PCS; 2017-06-24)
PROC: 3E033NZ Introduction of Analgesics, Hypnotics, Sedatives into Peripheral Vein, Percutaneous Approach (ICD-10-PCS; 2017-06-24)
DX: R07.89 Other chest pain (principal); D64.9 Anemia, unspecified; I10 Essential (primary) hypertension; E78.00 Pure hypercholesterolemia, unspecified; F41.8 Other specified anxiety disorders; I69.818 Other symptoms and signs involving cognitive functions following other cerebrovascular disease; Z87.19 Personal history of other diseases of the digestive system; Z87.442 Personal history of urinary calculi; Z96.653 Presence of artificial knee joint, bilateral
CPT/HCPCS: 36415; 80053; 81003; 81015; 82550; 83735; 84484; 85025; 85610; 87086; 93005; 93010; 96374; 96375; 99283-25; J0131

== ENCOUNTER 2017-06-26 18:34 | Emergency (ER) | payer OTHER ==
--- NOTE | 2017-06-26 18:37 | PDOC ---
Rapid Medical Evaluation Time Seen by Provider: 06/26/17 18:37 Medical Evaluation: Allergies Allergy/AdvReac Type Severity Reaction Status Date / Time aspirin Allergy Severe "NERVOUS" Verified 06/24/17 14:21 morphine Allergy Severe "ANXIETY-DE Verified 06/24/17 14:21 SPERATION" 06/26/17 18:37 I have performed a brief in-person evaluation of this patient. The patient presents with a chief complaint of: Chest pain and headache since last night Pertinent physical exam findings: Lungs CTAB. RRR. No m/r/g. I have ordered the following: labs, ekg, urine, cxr The patient will proceed to the ED for further evaluation. Discharge Disposition - Diagnosis Chest pain - Referrals - Patient Instructions - Post Discharge Activity
[2017-06-26 18:41] VITALS: BP 124/67; PULSE 78; TEMP 98.2; BMI 33.2
[2017-06-26 19:06] LABS: BASO % 0.8 % (0-2.0); EOS % 5.1 % (0-4.5); HEMOGLOBIN 9.7 GM/dL (10.7-15.3); LYMPH % 27.4 % (8-40); MCH 25.1 pg (25.7-33.7); MCHC 32.4 g/dl (32.0-36.0); MEAN CELL VOLUME 77.6 fl (80-96); MONO % 13.7 % (3.8-10.2); PLATELET COUNT 361 K/MM3 (134-434); RBC 3.86 M/mm3 (3.60-5.2); RDW 19.3 % (11.6-15.6); WHITE BLOOD COUNT 4.8 K/mm3 (4.0-10.0)
[2017-06-26 19:17] LABS: INR 1.01 (0.82-1.09); PROTHROMBIN TIME (PATIENT) 11.4 SEC (9.7-13.0)
[2017-06-26 19:29] LABS: ANION GAP 9 (8-16); BILIRUBIN,TOTAL 0.2 mg/dL (0.2-1.0); BLOOD UREA NITROGEN 18 mg/dL (7-18); CALCIUM 8.1 mg/dL (8.5-10.1); CHLORIDE 97 mmol/L (98-107); CO2 25 mmol/L (21-32); CREATININE 0.7 mg/dL (0.55-1.02); GLUCOSE,RANDOM 110 mg/dL (74-106); MAGNESIUM 2.1 mg/dL (1.8-2.4); POTASSIUM 4.7 mmol/L (3.5-5.1); SGOT/AST 34 U/L (15-37); SGPT/ALT 37 U/L (12-78); SODIUM 131 mmol/L (136-145); TOT PROT 6.8 g/dl (6.4-8.2)
--- NOTE | 2017-06-26 19:30 | PDOC ---
History of Present Illness - General Chief Complaint: Chest Pain Stated Complaint: CHEST PAIN Time Seen by Provider: 06/26/17 18:37 History Source: Patient - History of Present Illness Initial Comments: 06/26/17 20:25 71 year old female with chronic chest pain and headache and reports anxiety Patient has been in the emergency department numerous times over the past year for her chest pain. Patient has had numerous extensive workup which were all negative. most recent visit on 06/24/17. patient has a past medical history of asthma, hypertension, hyperlipidemia and brain tumor s/p resection. patient reports feeling anxious today and requesting medication for anxiety. patient reports that she is very tired. Past History - Past Medical History Allergies/Adverse Reactions: Allergies Allergy/AdvReac Type Severity Reaction Status Date / Time aspirin Allergy Severe "NERVOUS" Verified 07/05/17 10:39 morphine Allergy Severe "ANXIETY-DE Verified 07/05/17 10:39 SPERATION" Home Medications: Ambulatory Orders Escitalopram Oxalate [Lexapro -] 10 mg PO DAILY 03/10/16 Divalproex [Depakote -] 500 mg PO BID 12/15/16 Oxybutynin Chloride [Ditropan Xl] 15 mg PO DAILY 12/15/16 Quetiapine Fumarate [Seroquel -] 25 mg PO DAILY 12/15/16 Linaclotide [Linzess] 72 mcg PO DAILY 01/19/17 Lipase/Protease/Amylase [Creon Dr 36,000 Units Capsule] 1 each PO TID 01/19/17 Metoprolol Succinate [Toprol XL -] 25 mg PO DAILY #30 tab.sr.24h 02/06/17 Famotidine [Pepcid -] 20 mg PO DAILY #14 tablet 05/07/17 Amlodipine Besylate [Norvasc -] 10 mg PO DAILY 06/27/17 Mirtazapine [Remeron -] 15 mg PO HS 06/27/17 Sucralfate [Carafate -] 1 gm PO QID 06/27/17 Anemia: Yes Asthma: No Cancer: No Cardiac Disorders: No 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, baseline confusion and dizziness) COPD: No CHF: No DVT: No Dementia: No Diabetes: No GI Disorders: Yes (gerd, gastric ulcer, dysphagia) Disorders: Yes (kidney stone in the past) HTN: Yes Hypercholesterolemia: Yes Liver Disease: No Psychiatric Problems: Yes (ANXIETY DEPRESSION) Seizures: Yes (S/P craniotomy for benign tumor - on Depakote for seizure prophylaxis) Thyroid Disease: No - Surgical History Abdominal Surgery: Yes Appendectomy: No Cardiac Surgery: No Cholecystectomy: Yes Lung Surgery: No Neurologic Surgery: Yes (removal left meningioma) Orthopedic Surgery: Yes (Bilateral knee replacement) - Immunization History Td Vaccination: Yes TDAP Vaccination: No Immunization Up to Date: No - Suicide/Smoking/Psychosocial Hx Smoking Status: No Smoking History: Unknown if ever smoked Have you smoked in the past 12 months: No Number of Cigarettes Smoked Daily: 0 Cigars Per Day: 0 Information on smoking cessation initiated: No Hx Alcohol Use: No Drug/Substance Use Hx: No Substance Use Type: None Hx Substance Use Treatment: No Cardiac Specific PMH - Complaint Specific PMHX Pacemaker: No Review of Systems - Review of Systems Able to Perform ROS?: Yes Is the patient limited Wolof proficient: No Respiratory: No: Symptoms reported, See HPI, Cough, Orthopnea, Shortness of Breath, SOB with Exertion, SOB at Rest, Stridor, Wheezing, Productive cough, Hemoptysis, Other Cardiac (ROS): Yes: Chest Pain. No: Symptoms Reported, See HPI, Edema, Irregular Heart Rate, Lightheadedness, Palpitations, Syncope, Chest Tightness, Other Neurological: Yes: Headache. No: Symptoms reported, See HPI, Numbness, Paresthesia, Pre-Existing Deficit, Seizure, Tingling, Tremors, Weakness, Unsteady Gait, Ataxia, Dizziness, Other *Physical Exam - Vital Signs Last Vital Signs Temp Pulse Resp BP Pulse Ox 98.2 F 78 20 124/67 100 06/26/17 18:39 06/26/17 18:39 06/26/17 18:39 06/26/17 18:39 06/26/17 19:21 - Physical Exam General Appearance: Yes: Appropriately Dressed Respiratory/Chest: positive: Lungs Clear, Normal Breath Sounds Cardiovascular: positive: Regular Rhythm, Regular Rate Extremity: positive: Normal Capillary Refill, Normal Inspection, Normal Range of Motion Integumentary: positive: Normal Color, Dry, Warm Neurologic: positive: Fully Oriented, Alert, Normal Mood/Affect Heart Score/ECG Review - History History: Slightly suspicious - Electrocardiogram EKG: Normal - Age Age: >/= 65 - Risk Factors Risk Factors Heart Score: Yes Hx Hypercholesterolemia, Yes Hx Hypertension Based on the list above the patient has:: 1-2 risk factors - Troponin Troponin: </= normal limit - Score Heart Score - Total: 3 - ECG Intrepretation Rhythm: Regular Rhythm Comment:: 06/26/17 21:41 NSR : 75bpm ED Treatment Course - LABORATORY CBC & Chemistry Diagram: 06/26/17 18:57 06/26/17 18:57 - ADDITIONAL ORDERS Additional order review: 06/26/17 18:57 RBC 3.86 MCV 77.6 L MCHC 32.4 RDW 19.3 H MPV 7.0 L Neutrophils % 53.0 Lymphocytes % 27.4 Monocytes % 13.7 H Eosinophils % 5.1 H Basophils % 0.8 - Medications Given in the ED: ED Medications Discontinued Medications Generic Name Dose Route Start Last Admin Trade Name Freq PRN Reason Stop Dose Admin Acetaminophen 650 mg 06/26/17 22:21 06/26/17 22:33 Tylenol - PO 06/26/17 22:22 650 mg ONCE ONE Administration Medical Decision Making - Medical Decision Making Chest pain P: CBC CMP Cardiac EKG 06/26/17 22:07 patient is well appearing/ recent negative ECHO and stress test. advised to follow up with PMD and cardiology. strict return precautions reviewed with patient. patient verbalized understanding. 07/07/17 06:12 *DC/Admit/Observation/Transfer Diagnosis at time of Disposition: Chest pain Qualifiers: Chest pain type: unspecified Qualified Code(s): R07.9 - Chest pain, unspecified - Discharge Dispostion Disposition: HOME - Referrals Referrals: Waldo Mabry MD [Primary Care Provider] - Call tomorrow Rich Wolf MD [Staff Physician] - - Patient Instructions Printed Discharge Instructions: DI for Atypical Chest Pain Additional Instructions: please follow up with your last pattern grader and your primary doctor. return to the ER if symptoms worsen. - Post Discharge Activity
[2017-06-26 19:32] LABS: ALK PHOS 236 U/L (45-117)
[2017-06-26] MEDS ORDERED: ACETAMINOPHEN 325 MG TABLET (FP) PO ONE (22:21)
[2017-06-26] MEDS ORDERED: ACETAMINOPHEN 325 MG TABLET (FP) ONE (22:26)
--- NOTE | 2017-06-27 11:55 | EKG ---
Test Reason : Blood Pressure : / mmHG Vent. Rate : 075 BPM Atrial Rate : 075 BPM P-R Int : 172 ms QRS Dur : 082 ms QT Int : 400 ms P-R-T Axes : 039 013 024 degrees QTc Int : 446 ms NORMAL SINUS RHYTHM NORMAL ECG WHEN COMPARED WITH ECG OF 24-JUN-2017 14:30, NO SIGNIFICANT CHANGE WAS FOUND Confirmed by MD JARON, UMBERTO ([id number]) on 06/27/2017 11:54:46 AM Referred By: Confirmed By:UMBERTO SALMERON MD
== END 2017-06-26 22:33 | disposition home or self-care (01) ==
LOC: JER 18:34
DX: R07.89 Other chest pain (principal); F41.9 Anxiety disorder, unspecified; I10 Essential (primary) hypertension; E78.00 Pure hypercholesterolemia, unspecified; D64.9 Anemia, unspecified; Z86.73 Personal history of transient ischemic attack (TIA), and cerebral infarction without residual deficits; Z87.19 Personal history of other diseases of the digestive system; Z96.653 Presence of artificial knee joint, bilateral; Z86.011 Personal history of benign neoplasm of the brain
CPT/HCPCS: 36415; 71046-TC-FY; 80053; 82550; 83735; 84484; 85025; 85610; 93005; 93010; 99285-25

== ENCOUNTER 2017-06-27 17:09 | Emergency (ER) | payer OTHER ==
[2017-06-27 17:44] VITALS: BP 137/72; PULSE 75; BMI 33.2
[2017-06-27] MEDS ORDERED: ACETAMINOPHEN 325 MG TABLET (FP) PO ONE (17:45)
--- NOTE | 2017-06-27 17:45 | PDOC ---
Rapid Medical Evaluation Time Seen by Provider: 06/27/17 17:40 Medical Evaluation: Allergies Allergy/AdvReac Type Severity Reaction Status Date / Time aspirin Allergy Severe "NERVOUS" Verified 06/26/17 18:37 morphine Allergy Severe "ANXIETY-DE Verified 06/26/17 18:37 SPERATION" 06/27/17 17:40 I have performed a brief in-person evaluation of this patient. The patient presents with a chief complaint of: Patient reports chronic headache and chest pain with nausea exacerbated last night. States seen here yesterday and told she has nothing. But pain not relieved by medication. No pmd follow up Pertinent physical exam findings: NAD unlabored breathing steady gait I have ordered the following: ekg, analgesia The patient will proceed to the ED for further evaluation.
[2017-06-27] MEDS ORDERED: ACETAMINOPHEN 325 MG TABLET (FP) ONE (18:28)
[2017-06-27] MEDS ORDERED: diazePAM 2 MG TABLET PO ONE (18:34)
--- NOTE | 2017-06-27 18:36 | PDOC ---
History of Present Illness - General History Source: Patient Exam Limitations: No Limitations - History of Present Illness Initial Comments: 06/27/17 19:05 The patient is a 71 year old female with a significant past medical history of COPD, hyperlipidemia, hypertension, and anxiety who presents to the emergency department complaining of left-sided chest pain. She reports moderate left- sided chest pain radiating to her left shoulder. She states that she has seen many providers who all agree she has no cardiovascular problems, but believe she has chest muscle pain. She reports taking motrin with no alleviation to symptoms. She was seen 06/24/17 for similar symptoms. The patient has been seen in the hospital multiple times for similar symptoms. The patient denies changes in vision, shortness of breath, headache, and dizziness. Denies fevers, chills, nausea, vomiting, diarrhea, and constipation. Denies dysuria, frequency, urgency, and hematuria. Allergies: Aspirin, Morphine. Past Surgical History: Left meningioma removal; Cholecystectomy; Bilateral Knee Replacements. Social History: Non-smoker. Denies alcohol or drug use. PCP: Dr. 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, baseline confusion and dizziness) COPD: No CHF: No DVT: No Dementia: No Diabetes: No GI Disorders: Yes (gerd, gastric ulcer, dysphagia) Disorders: Yes (kidney stone in the past) HTN: Yes Hypercholesterolemia: Yes Liver Disease: No Psychiatric Problems: Yes (ANXIETY DEPRESSION) Seizures: Yes (S/P craniotomy for benign tumor - on Depakote for seizure prophylaxis) Thyroid Disease: No - Surgical History Abdominal Surgery: Yes Appendectomy: No Cardiac Surgery: No Cholecystectomy: Yes Lung Surgery: No Neurologic Surgery: Yes (removal left meningioma) Orthopedic Surgery: Yes (Bilateral knee replacement) - Immunization History Td Vaccination: Yes TDAP Vaccination: No Immunization Up to Date: No - Suicide/Smoking/Psychosocial Hx Smoking Status: No Smoking History: Never smoked Have you smoked in the past 12 months: No Number of Cigarettes Smoked Daily: 0 Cigars Per Day: 0 Hx Alcohol Use: No Drug/Substance Use Hx: No Substance Use Type: None Hx Substance Use Treatment: No <Rich Tolbert - Last Filed: 06/27/17 19:51> - Past Medical History Allergies/Adverse Reactions: Allergies Allergy/AdvReac Type Severity Reaction Status Date / Time aspirin Allergy Severe "NERVOUS" Verified 06/27/17 17:41 morphine Allergy Severe "ANXIETY-DE Verified 06/27/17 17:41 SPERATION" Home Medications: Ambulatory Orders Escitalopram Oxalate [Lexapro -] 10 mg PO DAILY 03/10/16 Divalproex [Depakote -] 500 mg PO BID 12/15/16 Oxybutynin Chloride [Ditropan Xl] 15 mg PO DAILY 12/15/16 Quetiapine Fumarate [Seroquel -] 25 mg PO DAILY 12/15/16 Linaclotide [Linzess] 72 mcg PO DAILY 01/19/17 Lipase/Protease/Amylase [Creon Dr 36,000 Units Capsule] 1 each PO TID 01/19/17 Metoprolol Succinate [Toprol XL -] 25 mg PO DAILY #30 tab.sr.24h 02/06/17 Famotidine [Pepcid -] 20 mg PO DAILY #14 tablet 05/07/17 Amlodipine Besylate [Norvasc -] 10 mg PO DAILY 06/27/17 Mirtazapine [Remeron -] 15 mg PO HS 06/27/17 Sucralfate [Carafate -] 1 gm PO QID 06/27/17 Review of Systems - Review of Systems Able to Perform ROS?: Yes Comments:: A complete review of 10 out of 10 review of systems is taken and is negative apart from what is previously mentioned below and in the HPI. <Roger Wise - Last Filed: 06/27/17 19:05> *Physical Exam - Vital Signs Last Vital Signs Temp Pulse Resp BP Pulse Ox 75 19 137/72 97 06/27/17 17:41 06/27/17 17:41 06/27/17 17:41 06/27/17 17:41 - Physical Exam Comments: Vitals: Triage Vital signs reviewed General Appearance: no acute distress, well nourished well developed, Head: Atraumatic, normocephalic Eyes: Pupils equal reactive round, extraocular movement intact Neck: Supple;No Nuchal rigidity Chest Wall: Nontender Cardiac: Regular rate and rhythm, no murmurs, no rubs, no gallops, Lungs: Clear to auscultation bilateral, good air movement bilaterally, Abdomen: Soft, nondistended, normal bowel sounds, nontender to palpation Rectal: Exam deferred Extremities: Full range of motion to all extremities, no cyanosis, clubbing, or edema Skin: Warm and dry, no rashes or lesions, no petechiae Psych: normal mood, normal affect <Roger Wise - Last Filed: 06/27/17 19:05> - Vital Signs Last Vital Signs Temp Pulse Resp BP Pulse Ox 75 19 137/72 97 06/27/17 17:41 06/27/17 17:41 06/27/17 17:41 06/27/17 17:41 <Rich Tolbert - Last Filed: 06/27/17 19:51> ED Treatment Course - Medications Given in the ED: ED Medications Discontinued Medications Generic Name Dose Route Start Last Admin Trade Name Freq PRN Reason Stop Dose Admin Acetaminophen 650 mg 06/27/17 17:45 06/27/17 18:38 Tylenol - PO 06/27/17 17:46 650 mg ONCE ONE Administration Diazepam 2 mg 06/27/17 18:34 06/27/17 18:45 Valium - PO 06/27/17 18:35 2 mg ONCE ONE Administration <Roger Wise - Last Filed: 06/27/17 19:05> - LABORATORY CBC & Chemistry Diagram: 06/27/17 19:04 06/27/17 19:04 <Rich Tolbert - Last Filed: 06/27/17 19:51> Medical Decision Making - Medical Decision Making 06/27/17 19:50 Patient well-known to ED staff presents with chronic muscular skeletal chest discomfort and minor headache. Patient states symptoms were lightly worse last night. Patient appears very anxious on examination. An EKG was performed which demonstrates sinus rhythm at [address] elevations and no T-wave inversions. Tylenol ordered for patient's pain labs including a troponin ordered to evaluate patient's chest pain. Valium was ordered given the patient appears mildly anxious about her symptomatology. Low suspicion for ACS given the chronicity of the patient's presentation as well as having a normal EKG Dr. Guzman o follow-up labs reassess patient and dispo. Heart score 3. <Rich Tolbert - Last Filed: 06/27/17 19:51> *DC/Admit/Observation/Transfer - Attestations Scribe Attestion: Documentation prepared by Roger Wise, acting as medical tech for Rich Tolbert MD. <Roger Wise - Last Filed: 06/27/17 19:05> <Rich Tolbert - Last Filed: 06/27/17 19:51> Diagnosis at time of Disposition: Atypical chest pain - Referrals Referrals: Waldo Mabry MD [Primary Care Provider] - - Patient Instructions - Post Discharge Activity
[2017-06-27] MEDS ORDERED: diazePAM 2 MG TABLET ONE (18:39)
[2017-06-27 19:17] LABS: BASO % 0.8 % (0-2.0); EOS % 4.6 % (0-4.5); HEMATOCRIT 30.2 % (32.4-45.2); HEMOGLOBIN 9.6 GM/dL (10.7-15.3); LYMPH % 28.9 % (8-40); MCH 24.3 pg (25.7-33.7); MCHC 31.7 g/dl (32.0-36.0); MEAN CELL VOLUME 76.6 fl (80-96); MONO % 14.5 % (3.8-10.2); NEUT % 51.2 % (42.8-82.8); PLATELET COUNT 405 K/MM3 (134-434); RBC 3.94 M/mm3 (3.60-5.2); RDW 19.2 % (11.6-15.6); WHITE BLOOD COUNT 4.4 K/mm3 (4.0-10.0)
[2017-06-27 21:08] LABS: ALBUMIN 3.1 g/dl (3.4-5.0); ALK PHOS 218 U/L (45-117); ANION GAP 10 (8-16); BILIRUBIN,TOTAL 0.5 mg/dL (0.2-1.0); BLOOD UREA NITROGEN 14 mg/dL (7-18); CALCIUM 8.2 mg/dL (8.5-10.1); CHLORIDE 96 mmol/L (98-107); CO2 26 mmol/L (21-32); CREATININE 0.7 mg/dL (0.55-1.02); GLUCOSE,RANDOM 94 mg/dL (74-106); POTASSIUM 4.4 mmol/L (3.5-5.1); SGOT/AST 25 U/L (15-37); SGPT/ALT 34 U/L (12-78); SODIUM 132 mmol/L (136-145); TOT PROT 6.8 g/dl (6.4-8.2)
--- NOTE | 2017-06-27 22:23 | PDOC ---
*Physical Exam - Vital Signs Last Vital Signs Temp Pulse Resp BP Pulse Ox 75 19 137/72 97 06/27/17 17:41 06/27/17 17:41 06/27/17 17:41 06/27/17 19:18 ED Treatment Course - LABORATORY CBC & Chemistry Diagram: 06/27/17 19:04 06/27/17 19:04 - ADDITIONAL ORDERS Additional order review: Laboratory Results 06/27/17 19:04 Sodium 132 L Potassium 4.4 Chloride 96 L Carbon Dioxide 26 Anion Gap 10 BUN 14 Creatinine 0.7 Creat Clearance w eGFR > 60 Random Glucose 94 Calcium 8.2 L Total Bilirubin 0.5 D AST 25 ALT 34 Alkaline Phosphatase 218 H Troponin I < 0.02 Total Protein 6.8 Albumin 3.1 L 06/27/17 19:04 RBC 3.94 MCV 76.6 L MCHC 31.7 L RDW 19.2 H MPV 7.0 L Neutrophils % 51.2 Lymphocytes % 28.9 Monocytes % 14.5 H Eosinophils % 4.6 H Basophils % 0.8 - Medications Given in the ED: ED Medications Discontinued Medications Generic Name Dose Route Start Last Admin Trade Name Chance PRN Reason Stop Dose Admin Acetaminophen 650 mg 06/27/17 17:45 06/27/17 18:38 Tylenol - PO 06/27/17 17:46 650 mg ONCE ONE Administration Diazepam 2 mg 06/27/17 18:34 06/27/17 18:45 Valium - PO 06/27/17 18:35 2 mg ONCE ONE Administration *DC/Admit/Observation/Transfer Diagnosis at time of Disposition: Atypical chest pain - Discharge Dispostion Disposition: HOME Condition at time of disposition: Stable Decision to Admit order: No - Referrals Referrals: Waldo Mabry MD [Primary Care Provider] - - Patient Instructions Printed Discharge Instructions: DI for Atypical Chest Pain Print Language: UKRAINIAN - Post Discharge Activity
--- NOTE | 2017-06-28 11:50 | EKG ---
Test Reason : Blood Pressure : / mmHG Vent. Rate : 073 BPM Atrial Rate : 073 BPM P-R Int : 172 ms QRS Dur : 074 ms QT Int : 410 ms P-R-T Axes : 051 007 036 degrees QTc Int : 451 ms NORMAL SINUS RHYTHM NORMAL ECG WHEN COMPARED WITH ECG OF 26-JUN-2017 19:07, NO SIGNIFICANT CHANGE WAS FOUND Confirmed by ANNITA VENTURA MD ([id number]) on 06/28/2017 11:49:52 AM Referred By: Confirmed By:ANNITA VENTURA MD
== END 2017-06-27 22:33 | disposition home or self-care (01) ==
LOC: JER 17:09
DX: R07.89 Other chest pain (principal); I10 Essential (primary) hypertension; E78.00 Pure hypercholesterolemia, unspecified; F41.8 Other specified anxiety disorders; D64.9 Anemia, unspecified; Z87.19 Personal history of other diseases of the digestive system; I69.818 Other symptoms and signs involving cognitive functions following other cerebrovascular disease; Z87.442 Personal history of urinary calculi; Z96.653 Presence of artificial knee joint, bilateral; Z86.011 Personal history of benign neoplasm of the brain
CPT/HCPCS: 36415; 80053; 84484; 85025; 93005; 93010; 99282-25

== ENCOUNTER 2017-07-01 17:13 | Emergency (ER) | payer OTHER ==
[2017-07-01 17:18] VITALS: TEMP 98.3; BMI 31.2
[2017-07-01 18:12] VITALS: BP 123/74; PULSE 79
[2017-07-01] MEDS ORDERED: diazePAM 5 MG TABLET PO ONE (19:44)
--- NOTE | 2017-07-01 19:47 | PDOC ---
History of Present Illness - General Chief Complaint: Chest Pain Stated Complaint: CHEST PAIN Time Seen by Provider: 07/01/17 17:41 History Source: Patient, Old Records Exam Limitations: No Limitations - History of Present Illness Initial Comments: 07/01/17 19:49 This 71-year-old woman past medical history of hypertension, hyperlipidemia, COPD and anxiety who presents emergency Department with left sided chest pain for the past "couple of days." Patient is well-known to this emergency department with negative cardiac workups on multiple occasions including 06/17, 06/19, 06/24, 06/26 and 06/27 of this year. Patient has had negative troponins and normal EKGs on all those visits. Patient states the pain is not different from all of her previous visits. Pain is left sided 08/22 and describes as a pressure radiating to her left shoulder. Patient states she believes this is chest wall muscular pain and does not believe this is cardiac in nature. Patient is also reporting a mild increase in her usual anxiety at this time. She denies fevers, chills, shortness of breath, abdominal bloating, leg swelling. Past History - Past Medical History Allergies/Adverse Reactions: Allergies Allergy/AdvReac Type Severity Reaction Status Date / Time aspirin Allergy Severe "NERVOUS" Verified 07/03/17 12:40 morphine Allergy Severe "ANXIETY-DE Verified 07/03/17 12:40 SPERATION" Home Medications: Ambulatory Orders Escitalopram Oxalate [Lexapro -] 10 mg PO DAILY 03/10/16 Divalproex [Depakote -] 500 mg PO BID 12/15/16 Oxybutynin Chloride [Ditropan Xl] 15 mg PO DAILY 12/15/16 Quetiapine Fumarate [Seroquel -] 25 mg PO DAILY 12/15/16 Linaclotide [Linzess] 72 mcg PO DAILY 01/19/17 Lipase/Protease/Amylase [Kamari Dr 36,000 Units Capsule] 1 each PO TID 01/19/17 Metoprolol Succinate [Toprol XL -] 25 mg PO DAILY #30 tab.sr.24h 02/06/17 Famotidine [Pepcid -] 20 mg PO DAILY #14 tablet 05/07/17 Amlodipine Besylate [Norvasc -] 10 mg PO DAILY 06/27/17 Mirtazapine [Remeron -] 15 mg PO HS 06/27/17 Sucralfate [Carafate -] 1 gm PO QID 06/27/17 Anemia: Yes Asthma: No Cancer: No Cardiac Disorders: No 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, baseline confusion and dizziness) COPD: No CHF: No DVT: No Dementia: No Diabetes: No GI Disorders: Yes (gerd, gastric ulcer, dysphagia) Disorders: Yes (kidney stone in the past) HTN: Yes Hypercholesterolemia: Yes Liver Disease: No Psychiatric Problems: Yes (ANXIETY DEPRESSION) Seizures: Yes (S/P craniotomy for benign tumor - on Depakote for seizure prophylaxis) Thyroid Disease: No - Surgical History Abdominal Surgery: Yes Appendectomy: No Cardiac Surgery: No Cholecystectomy: Yes Lung Surgery: No Neurologic Surgery: Yes (removal left meningioma) Orthopedic Surgery: Yes (Bilateral knee replacement) - Immunization History Td Vaccination: Yes TDAP Vaccination: No Immunization Up to Date: No - Suicide/Smoking/Psychosocial Hx Smoking Status: No Smoking History: Never smoked Have you smoked in the past 12 months: No Number of Cigarettes Smoked Daily: 0 Cigars Per Day: 0 Hx Alcohol Use: No Drug/Substance Use Hx: No Substance Use Type: None Hx Substance Use Treatment: No Cardiac Specific PMH - Complaint Specific PMHX Pacemaker: No Review of Systems - Review of Systems Able to Perform ROS?: Yes Is the patient limited Tanzanian proficient: No Constitutional: No: Symptoms Reported HEENTM: No: Symptoms Reported Respiratory: No: Symptoms reported Cardiac (ROS): Yes: See HPI ABD/GI: No: Symptoms Reported : No: Symptoms Reported Musculoskeletal: No: Symptoms Reported Integumentary: No: Symptoms Reported Neurological: No: Symptoms reported Endocrine: No: Symptoms Reported Hematologic/Lymphatic: No: Symptoms Reported *Physical Exam - Vital Signs Last Vital Signs Temp Pulse Resp BP Pulse Ox 98.3 F 79 16 123/74 98 07/01/17 17:14 07/01/17 18:09 07/01/17 18:09 07/01/17 18:09 07/01/17 18:09 - Physical Exam General Appearance: Yes: Appropriately Dressed. No: Apparent Distress HEENT: positive: Normal ENT Inspection Neck: positive: Trachea midline, Supple. negative: Tender Respiratory/Chest: positive: Lungs Clear, Normal Breath Sounds. negative: Respiratory Distress, Accessory Muscle Use Cardiovascular: positive: Regular Rhythm, Regular Rate, S1, S2, Edema (trace dependent). negative: JVD, Murmur Vascular Pulses: Dorsalis-Pedis (R): 2+, Doralis-Pedis (L): 2+ Gastrointestinal/Abdominal: positive: Normal Bowel Sounds, Soft. negative: Tender Musculoskeletal: positive: Normal Inspection. negative: CVA Tenderness Extremity: positive: Normal Capillary Refill, Normal Inspection Integumentary: positive: Normal Color, Dry, Warm Neurologic: positive: Alert, Normal Response Heart Score/ECG Review - History History: Slightly suspicious - Electrocardiogram EKG: Normal - Age Age: >/= 65 - Risk Factors Risk Factors Heart Score: Yes Hx Hypercholesterolemia, Yes Hx Hypertension, Yes Hx Diabetes Based on the list above the patient has:: 1-2 risk factors - Troponin Troponin: </= normal limit - Score Heart Score - Total: 3 - ECG Intrepretation Rhythm: Regular Rhythm Moderate Sedation - Procedure Monitoring Vital Signs: Vital Signs Temp Pulse Resp BP Pulse Ox 98.3 F 79 16 123/74 98 07/01/17 17:14 07/01/17 18:09 07/01/17 18:09 07/01/17 18:09 07/01/17 18:09 ED Treatment Course - LABORATORY CBC & Chemistry Diagram: 07/01/17 20:30 07/01/17 20:30 - ADDITIONAL ORDERS Additional order review: 07/01/17 20:30 RBC 3.89 MCV 76.6 L MCHC 32.0 RDW 19.5 H MPV 6.9 L Neutrophils % 56.4 Lymphocytes % 24.3 Monocytes % 16.0 H Eosinophils % 2.7 Basophils % 0.6 - RADIOLOGY Radiology Studies Ordered: Category Date Time Status CHEST PA & LAT [RAD] Stat Radiology 07/01/17 19:24 Completed - Medications Given in the ED: ED Medications Discontinued Medications Generic Name Dose Route Start Last Admin Trade Name Freq PRN Reason Stop Dose Admin Diazepam 5 mg 07/01/17 19:44 07/01/17 20:53 Valium - PO 07/01/17 19:45 5 mg ONCE ONE Administration Medical Decision Making - Medical Decision Making 07/01/17 19:50 A/P: 71-year-old woman with multiple medical problems with acute on chronic chest pain Lungs clear to auscultation bilaterally RRR. S1 and S2 present. No murmur, rub or gallop noted. No chest wall tenderness. Trace dependent pedal edema noted Abdomen soft nontender nondistended Normal stress test on 05/18/2017. Echo done 01/29 reveals normal ventricular function with no significant valve pathology. Labs including cardiac profile and BNP, chest x-ray, EKG, Valium 5 mg orally now , reassess 07/01/17 20:[address] Miller- sinus rhythm with rate of 78. Normal intervals. No T wave abnormalities noted. No change compared to EKG performed on 06/27/17. 07/01/17 21:05 07/01/17 21:06 Laboratory Tests 07/01/17 07/01/17 20:30 20:30 Troponin I < 0.02 B-Natriuretic Peptide 119.80 07/01/17 21:39 Chest x-rays read by me: Angles clear. Cardiac silhouette is within normal limits. No focal consolidations or infiltrates noted. No significant change from previous study on 06/26/17. Urinalysis with moderate bacteria and 3 white blood cells. Patient denies any dysuria. Likely a contaminant. I will defer treatment at this time. Given patient with normal initial troponin, normal EKG and unchanged chest x- ray. I will discharge the patient home to follow-up with her primary underwriting support manager and regular doctor. *DC/Admit/Observation/Transfer Diagnosis at time of Disposition: Atypical chest pain - Discharge Dispostion Disposition: HOME Condition at time of disposition: Fair Decision to Admit order: No - Referrals - Patient Instructions Printed Discharge Instructions: DI for Atypical Chest Pain Additional Instructions: Make an appointment with her primary doctor for reevaluation as soon as possible. Refer return to emergency department for any fevers, chills, chest pain, shortness of breath or any other concerns. Louisa tavo jihan con perla mdico primario para tavo reevaluacin lo ms pronto posible. Dirjase a la leah de emergencias para cualquier fiebre, escalofros, dolor en el pecho, dificultad para respirar o cualquier otra inquietud. Print Language: GERMAN - Post Discharge Activity
[2017-07-01] MEDS ORDERED: diazePAM 5 MG TABLET ONE (19:57)
[2017-07-01 20:23] LABS: BASO % 0.6 % (0-2.0); EOS % 2.7 % (0-4.5); HEMATOCRIT 29.8 % (32.4-45.2); HEMOGLOBIN 9.5 GM/dL (10.7-15.3); LYMPH % 24.3 % (8-40); MCH 24.5 pg (25.7-33.7); MEAN CELL VOLUME 76.6 fl (80-96); MEAN PLT VOLUME 6.9 fl (7.5-11.1); NEUT % 56.4 % (42.8-82.8); PLATELET COUNT 377 K/MM3 (134-434); RBC 3.89 M/mm3 (3.60-5.2); RDW 19.5 % (11.6-15.6); WHITE BLOOD COUNT 4.8 K/mm3 (4.0-10.0)
[2017-07-01 20:32] LABS: INR 0.97 (0.82-1.09)
[2017-07-01 20:36] LABS: URINE APPEARANCE CLEAR; URINE BILIRUBIN NEGATIVE (<2.0 mg/dL); URINE COLOR COLORLESS; URINE GLUCOSE (UA) NEGATIVE (NEGATIVE); URINE KETONE NEGATIVE (NEGATIVE); URINE LEUK ESTERASE NEGATIVE (NEGATIVE); URINE NITRITE NEGATIVE (NEGATIVE); URINE PROTEIN NEGATIVE (NEGATIVE); URINE UROBILINOGEN NEGATIVE mg/dL (0.2-1.0)
[2017-07-01 20:39] LABS: EPI CELLS RARE /HPF (FEW); URINE BACTERIA MODERATE /hpf (NONE SEEN)
[2017-07-01 20:44] LABS: ALBUMIN 3.1 g/dl (3.4-5.0); ANION GAP 4 (8-16); BLOOD UREA NITROGEN 14 mg/dL (7-18); CALCIUM 8.1 mg/dL (8.5-10.1); CHLORIDE 99 mmol/L (98-107); CO2 29 mmol/L (21-32); CREATININE 0.6 mg/dL (0.55-1.02); GLUCOSE,RANDOM 114 mg/dL (74-106); MAGNESIUM 2.4 mg/dL (1.8-2.4); POTASSIUM 4.5 mmol/L (3.5-5.1); SGOT/AST 25 U/L (15-37); SODIUM 132 mmol/L (136-145)
[2017-07-01 20:54] LABS: ALK PHOS 203 U/L (45-117); BILIRUBIN,TOTAL 0.3 mg/dL (0.2-1.0); SGPT/ALT 31 U/L (12-78); TOT PROT 6.8 g/dl (6.4-8.2)
--- NOTE | 2017-07-04 00:29 | EKG ---
Test Reason : Blood Pressure : / mmHG Vent. Rate : 078 BPM Atrial Rate : 078 BPM P-R Int : 164 ms QRS Dur : 084 ms QT Int : 396 ms P-R-T Axes : 007 011 029 degrees QTc Int : 451 ms NORMAL SINUS RHYTHM NORMAL ECG WHEN COMPARED WITH ECG OF 27-JUN-2017 18:16, NO SIGNIFICANT CHANGE WAS FOUND Confirmed by J LUIS POWELL MD ([id number]) on 07/04/2017 12:28:57 AM Referred By: Confirmed By:J LUIS POWELL MD
== END 2017-07-01 23:02 | disposition home or self-care (01) ==
LOC: JER 17:13
DX: R07.89 Other chest pain (principal); F41.9 Anxiety disorder, unspecified; I10 Essential (primary) hypertension; E78.00 Pure hypercholesterolemia, unspecified; Z87.19 Personal history of other diseases of the digestive system; Z86.2 Personal history of diseases of the blood and blood-forming organs and certain disorders involving the immune mechanism; I69.818 Other symptoms and signs involving cognitive functions following other cerebrovascular disease; I69.893 Ataxia following other cerebrovascular disease; Z87.442 Personal history of urinary calculi; Z86.011 Personal history of benign neoplasm of the brain; Z96.622 Presence of left artificial elbow joint; Z96.621 Presence of right artificial elbow joint
CPT/HCPCS: 36415; 71046-TC-FY; 80053; 81003; 81015; 82550; 82553; 83735; 83880; 84484; 85025; 85610; 93005; 93010; 99285-25

== ENCOUNTER 2017-07-03 12:32 | Emergency (ER) | payer OTHER ==
[2017-07-03 12:47] VITALS: BP 133/53; PULSE 86; TEMP 98.6; BMI 38.7
--- NOTE | 2017-07-03 14:38 | PDOC ---
History of Present Illness <Emily Castro - Last Filed: 07/03/17 14:38> - General History Source: Patient Exam Limitations: No Limitations - History of Present Illness Initial Comments: 07/03/17 15:15 The patient is a 71 year old female with a significant PMH of COPD, hyperlipidemia, hypertension, and anxiety who presents to the emergency department with left sided chest pain. The patient has been seen multiple times at this hospital for similar symptoms. She was last seen on 07/01. The patient had a stress test in May and ECHO in January that were both normal. The patient denies shortness of breath, headache and dizziness. Denies fever, chills, nausea, vomit, diarrhea and constipation. Denies dysuria, frequency, urgency and hematuria. Allergies: NKA Past surgical history: None reported. Social history: No reported alcohol, drug, or cigarette use. 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, baseline confusion and dizziness) COPD: No CHF: No DVT: No Dementia: No Diabetes: Yes GI Disorders: Yes (gerd, gastric ulcer, dysphagia) Disorders: Yes (kidney stone in the past) HTN: Yes Hypercholesterolemia: Yes Liver Disease: No Psychiatric Problems: Yes (ANXIETY DEPRESSION) Seizures: Yes (S/P craniotomy for benign tumor - on Depakote for seizure prophylaxis) Thyroid Disease: No - Surgical History Abdominal Surgery: Yes Appendectomy: No Cardiac Surgery: No Cholecystectomy: Yes Lung Surgery: No Neurologic Surgery: Yes (removal left meningioma) Orthopedic Surgery: Yes (Bilateral knee replacement) - Immunization History Td Vaccination: Yes TDAP Vaccination: No Immunization Up to Date: No - Suicide/Smoking/Psychosocial Hx Smoking Status: No Smoking History: Never smoked Have you smoked in the past 12 months: No Number of Cigarettes Smoked Daily: 0 Cigars Per Day: 0 Hx Alcohol Use: No Drug/Substance Use Hx: No Substance Use Type: None Hx Substance Use Treatment: No <Emily Castro - Last Filed: 07/03/17 14:38> <Patti Arriola - Last Filed: 07/03/17 15:17> - Past Medical History Allergies/Adverse Reactions: Allergies Allergy/AdvReac Type Severity Reaction Status Date / Time aspirin Allergy Severe "NERVOUS" Verified 07/03/17 12:40 morphine Allergy Severe "ANXIETY-DE Verified 07/03/17 12:40 SPERATION" Home Medications: Ambulatory Orders Escitalopram Oxalate [Lexapro -] 10 mg PO DAILY 03/10/16 Divalproex [Depakote -] 500 mg PO BID 12/15/16 Oxybutynin Chloride [Ditropan Xl] 15 mg PO DAILY 12/15/16 Quetiapine Fumarate [Seroquel -] 25 mg PO DAILY 12/15/16 Linaclotide [Linzess] 72 mcg PO DAILY 01/19/17 Lipase/Protease/Amylase [Kamari Nazario 36,000 Units Capsule] 1 each PO TID 01/19/17 Metoprolol Succinate [Toprol XL -] 25 mg PO DAILY #30 tab.sr.24h 02/06/17 Famotidine [Pepcid -] 20 mg PO DAILY #14 tablet 05/07/17 Amlodipine Besylate [Norvasc -] 10 mg PO DAILY 06/27/17 Mirtazapine [Remeron -] 15 mg PO HS 06/27/17 Sucralfate [Carafate -] 1 gm PO QID 06/27/17 Review of Systems - Review of Systems Able to Perform ROS?: Yes Comments:: 07/03/17 15:16 GENERAL/CONSTITUTIONAL: No fever or chills. No weakness. HEAD, EYES, EARS, NOSE AND THROAT: No change in vision. No ear pain or discharge. No sore throat. CARDIOVASCULAR:(+) Left sided chest pain. No shortness of breath. RESPIRATORY: No cough, wheezing, or hemoptysis. GASTROINTESTINAL: No nausea, vomiting, diarrhea or constipation. GENITOURINARY: No dysuria, frequency, or change in urination. MUSCULOSKELETAL: No joint or muscle swelling or pain. No neck or back pain. SKIN: No rash NEUROLOGIC: No headache, vertigo, loss of consciousness, or change in strength/ sensation. ENDOCRINE: No increased thirst. No abnormal weight change. HEMATOLOGIC/LYMPHATIC: No anemia, easy bleeding, or history of blood clots. ALLERGIC/IMMUNOLOGIC: No hives or skin allergy. <Patti Arriola - Last Filed: 07/03/17 15:17> *Physical Exam - Vital Signs Last Vital Signs Temp Pulse Resp BP Pulse Ox 98.6 F 86 19 133/53 95 07/03/17 12:41 07/03/17 12:41 07/03/17 12:41 07/03/17 12:41 07/03/17 12:41 <Emily Castro - Last Filed: 07/03/17 14:38> - Vital Signs Last Vital Signs Temp Pulse Resp BP Pulse Ox 98.6 F 86 19 133/53 95 07/03/17 12:41 07/03/17 12:41 07/03/17 12:41 07/03/17 12:41 07/03/17 12:41 - Physical Exam Comments: 07/03/17 15:17 GENERAL: Awake, alert, and fully oriented, in no acute distress HEAD: No signs of trauma EYES: PERRLA, EOMI, sclera anicteric, conjunctiva clear ENT: Auricles normal inspection, hearing grossly normal, nares patent, oropharynx clear without exudates. Moist mucosa NECK: Normal ROM, supple, no lymphadenopathy, JVD, or masses LUNGS: Breath sounds equal, clear to auscultation bilaterally. No wheezes, and no crackles HEART: Regular rate and rhythm, normal S1 and S2, no murmurs, rubs or gallops ABDOMEN: Soft, nontender, normoactive bowel sounds. No guarding, no rebound. No masses EXTREMITIES: Normal range of motion, no edema. No clubbing or cyanosis. No cords, erythema, or tenderness NEUROLOGICAL: Cranial nerves II through XII grossly intact. Normal speech, normal gait SKIN: Warm, Dry, normal turgor, no rashes or lesions noted. <Patti Arriola - Last Filed: 07/03/17 15:17> Moderate Sedation - Procedure Monitoring Vital Signs: Vital Signs Temp Pulse Resp BP Pulse Ox 98.6 F 86 19 133/53 95 07/03/17 12:41 07/03/17 12:41 07/03/17 12:41 07/03/17 12:41 07/03/17 12:41 <Emily Castro - Last Filed: 07/03/17 14:38> - Procedure Monitoring Vital Signs: Vital Signs Temp Pulse Resp BP Pulse Ox 98.6 F 86 19 133/53 95 07/03/17 12:41 07/03/17 12:41 07/03/17 12:41 07/03/17 12:41 07/03/17 12:41 <Patti Arriola - Last Filed: 07/03/17 15:17> *DC/Admit/Observation/Transfer - Attestations Scribe Attestion: 07/03/17 15:17 Documentation prepared by Patti Arriola, acting as biomedical engineering director for Emily Castro MD. <Patti Arriola - Last Filed: 07/03/17 15:17>
[2017-07-03] MEDS ORDERED: ALPRAZolam 0.25 MG TABLET PO ONE (15:18)
[2017-07-03 15:23] LABS: BASO % 0.7 % (0-2.0); EOS % 1.8 % (0-4.5); HEMATOCRIT 30.1 % (32.4-45.2); HEMOGLOBIN 9.7 GM/dL (10.7-15.3); LYMPH % 28.2 % (8-40); MCH 24.6 pg (25.7-33.7); MCHC 32.1 g/dl (32.0-36.0); MEAN CELL VOLUME 76.5 fl (80-96); MEAN PLT VOLUME 7.1 fl (7.5-11.1); MONO % 13.4 % (3.8-10.2); NEUT % 55.9 % (42.8-82.8); PLATELET COUNT 356 K/MM3 (134-434); RBC 3.93 M/mm3 (3.60-5.2); RDW 19.3 % (11.6-15.6); WHITE BLOOD COUNT 5.6 K/mm3 (4.0-10.0)
[2017-07-03] MEDS ORDERED: ALPRAZolam 0.25 MG TABLET ONE (15:39)
[2017-07-03 15:49] LABS: ALBUMIN 3.2 g/dl (3.4-5.0); ANION GAP 7 (8-16); BILIRUBIN,TOTAL 0.4 mg/dL (0.2-1.0); BLOOD UREA NITROGEN 13 mg/dL (7-18); CALCIUM 8.1 mg/dL (8.5-10.1); CHLORIDE 95 mmol/L (98-107); CO2 24 mmol/L (21-32); CREATININE 0.6 mg/dL (0.55-1.02); GLUCOSE,RANDOM 95 mg/dL (74-106); POTASSIUM 4.4 mmol/L (3.5-5.1); SODIUM 126 mmol/L (136-145)
[2017-07-03 16:39] LABS: ALK PHOS 199 U/L (45-117); SGOT/AST 29 U/L (15-37); SGPT/ALT 31 U/L (12-78); TOT PROT 6.7 g/dl (6.4-8.2)
--- NOTE | 2017-07-03 17:26 | PDOC ---
*Physical Exam - Vital Signs Last Vital Signs Temp Pulse Resp BP Pulse Ox 98.6 F 86 19 133/53 95 07/03/17 12:41 07/03/17 12:41 07/03/17 12:41 07/03/17 12:41 07/03/17 12:41 ED Treatment Course - LABORATORY CBC & Chemistry Diagram: 07/03/17 14:30 07/03/17 14:30 - ADDITIONAL ORDERS Additional order review: Laboratory Results 07/03/17 07/03/17 14:30 14:30 WBC 5.6 RBC 3.93 Hgb 9.7 L Hct 30.1 L MCV 76.5 L MCH 24.6 L MCHC 32.1 RDW 19.3 H Plt Count 356 MPV 7.1 L Neutrophils % 55.9 Lymphocytes % 28.2 Monocytes % 13.4 H Eosinophils % 1.8 Basophils % 0.7 Nucleated RBC % 0 Sodium 126 L Potassium 4.4 Chloride 95 L Carbon Dioxide 24 Anion Gap 7 L BUN 13 Creatinine 0.6 Creat Clearance w eGFR > 60 Random Glucose 95 Calcium 8.1 L Total Bilirubin 0.4 D AST 29 ALT 31 Alkaline Phosphatase 199 H Creatine Kinase 104 Troponin I < 0.02 Total Protein 6.7 Albumin 3.2 L 07/03/17 14:30 RBC 3.93 MCV 76.5 L MCHC 32.1 RDW 19.3 H MPV 7.1 L Neutrophils % 55.9 Lymphocytes % 28.2 Monocytes % 13.4 H Eosinophils % 1.8 Basophils % 0.7 - Medications Given in the ED: ED Medications Discontinued Medications Generic Name Dose Route Start Last Admin Trade Name Yonathanq PRN Reason Stop Dose Admin Alprazolam 0.25 mg 07/03/17 15:18 07/03/17 15:40 Xanax - PO 07/03/17 15:19 0.25 mg ONCE ONE Administration Medical Decision Making - Medical Decision Making 07/03/17 17:26 pt has a negative troponin plan pot has had recent cards w/u that was negative and she will be discharged home *DC/Admit/Observation/Transfer Diagnosis at time of Disposition: Atypical chest pain - Discharge Dispostion Disposition: HOME Condition at time of disposition: Stable - Referrals - Patient Instructions Printed Discharge Instructions: DI for Atypical Chest Pain Additional Instructions: please follow up with your physician continue to take your regular medications - Post Discharge Activity
--- NOTE | 2017-07-03 18:04 | EKG ---
Test Reason : Blood Pressure : / mmHG Vent. Rate : 085 BPM Atrial Rate : 085 BPM P-R Int : 162 ms QRS Dur : 076 ms QT Int : 368 ms P-R-T Axes : 038 004 024 degrees QTc Int : 437 ms NORMAL SINUS RHYTHM NORMAL ECG WHEN COMPARED WITH ECG OF 01-JUL-2017 17:42, NO SIGNIFICANT CHANGE WAS FOUND Confirmed by J LUIS POWELL MD ([id number]) on 07/03/2017 6:04:04 PM Referred By: Confirmed By:J LUIS POWELL MD
--- NOTE | 2017-07-05 16:32 | EKG ---
Test Reason : Blood Pressure : / mmHG Vent. Rate : 073 BPM Atrial Rate : 073 BPM P-R Int : 172 ms QRS Dur : 078 ms QT Int : 404 ms P-R-T Axes : 005 006 024 degrees QTc Int : 445 ms NORMAL SINUS RHYTHM NORMAL ECG WHEN COMPARED WITH ECG OF 03-JUL-2017 12:35, NO SIGNIFICANT CHANGE WAS FOUND Confirmed by ANNITA VENTURA MD ([id number]) on 07/05/2017 4:31:25 PM Referred By: Confirmed By:ANNITA VENTURA MD
== END 2017-07-03 17:31 | disposition home or self-care (01) ==
LOC: JER 12:32
DX: R78.9 Finding of unspecified substance, not normally found in blood (principal); I10 Essential (primary) hypertension; E78.00 Pure hypercholesterolemia, unspecified; E11.9 Type 2 diabetes mellitus without complications; Z79.84 Long term (current) use of oral hypoglycemic drugs; F41.8 Other specified anxiety disorders; I69.810 Attention and concentration deficit following other cerebrovascular disease; I69.893 Ataxia following other cerebrovascular disease; I69.818 Other symptoms and signs involving cognitive functions following other cerebrovascular disease; Z87.19 Personal history of other diseases of the digestive system; Z96.653 Presence of artificial knee joint, bilateral; Z87.442 Personal history of urinary calculi
CPT/HCPCS: 36415; 80053; 82550; 84484; 85025; 93005; 93010; 99281-25

== ENCOUNTER 2017-07-05 10:34 | Observation (INO) | payer OTHER ==
--- NOTE | 2017-07-05 12:43 | PDOC ---
History of Present Illness - General History Source: Patient Exam Limitations: No Limitations <Julieth Stone - Last Filed: 07/05/17 17:35> - General History Source: Patient Exam Limitations: No Limitations - History of Present Illness Initial Comments: 07/05/17 13:57 The patient is a 71 year old female, with a significant past medical history of hypertension, hyperlipidemia,hx gastric ulcer, asthma, brain tumor s/p resection , s/p cholecystectomy, anxiety, and recent ED visit for chest pain (07/03/17), who presents to the emergency department with chest pain since last night. Per aide, patient was unable to sleep last night secondary to chest pain. Patient reports associated headache and decreased appetite, but denies any fever, chills , cough, or dizziness. She denies any shortness of breath, diaphoresis, or palpitations. Patient reports taking Tylenol for her symptoms with minimal relief. She reports some nausea, but denies any abdominal pain, vomiting, diarrhea, or constipation. Patient has multiple visits to our ED and [facility] for chest pain, for which she was sent for outpatient Cardiology evaluation. Patient had a holter monitor(02/05/17) and a stress test in May of 2017(all which were negative). No recent exacerbating factors. Per aide, patient has not been compliant with her medications lately. Allergies: Aspirin, Morphine Past Surgical History: Cholecystectomy Social History: Non smoker. No ETOH or recreational use. Photographs Curator: Dr. 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, baseline confusion and dizziness) COPD: No CHF: No DVT: No Dementia: No Diabetes: Yes GI Disorders: Yes (gerd, gastric ulcer, dysphagia) Disorders: Yes (kidney stone in the past) HTN: Yes Hypercholesterolemia: Yes Liver Disease: No Psychiatric Problems: Yes (ANXIETY DEPRESSION) Seizures: Yes (S/P craniotomy for benign tumor - on Depakote for seizure prophylaxis) Thyroid Disease: No - Surgical History Abdominal Surgery: Yes Appendectomy: No Cardiac Surgery: No Cholecystectomy: Yes Lung Surgery: No Neurologic Surgery: Yes (removal left meningioma) Orthopedic Surgery: Yes (Bilateral knee replacement) - Immunization History Td Vaccination: Yes TDAP Vaccination: No Immunization Up to Date: No - Suicide/Smoking/Psychosocial Hx Smoking Status: No Smoking History: Never smoked Have you smoked in the past 12 months: No Number of Cigarettes Smoked Daily: 0 Cigars Per Day: 0 Information on smoking cessation initiated: No Hx Alcohol Use: No Drug/Substance Use Hx: No Substance Use Type: None Hx Substance Use Treatment: No <Julieth Stone - Last Filed: 07/05/17 17:35> <Jackelin Morris - Last Filed: 07/05/17 19:04> - Past Medical History Allergies/Adverse Reactions: Allergies Allergy/AdvReac Type Severity Reaction Status Date / Time aspirin Allergy Severe "NERVOUS" Verified 07/05/17 10:39 morphine Allergy Severe "ANXIETY-DE Verified 07/05/17 10:39 SPERATION" Home Medications: Ambulatory Orders Escitalopram Oxalate [Lexapro -] 10 mg PO DAILY 03/10/16 Divalproex [Depakote -] 500 mg PO BID 12/15/16 Oxybutynin Chloride [Ditropan Xl] 15 mg PO DAILY 12/15/16 Quetiapine Fumarate [Seroquel -] 25 mg PO DAILY 12/15/16 Linaclotide [Linzess] 72 mcg PO DAILY 01/19/17 Lipase/Protease/Amylase [Kamari Dr 36,000 Units Capsule] 1 each PO TID 01/19/17 Metoprolol Succinate [Toprol XL -] 25 mg PO DAILY #30 tab.sr.24h 02/06/17 Famotidine [Pepcid -] 20 mg PO DAILY #14 tablet 05/07/17 Amlodipine Besylate [Norvasc -] 10 mg PO DAILY 06/27/17 Mirtazapine [Remeron -] 15 mg PO HS 06/27/17 Sucralfate [Carafate -] 1 gm PO QID 06/27/17 Review of Systems - Review of Systems Able to Perform ROS?: Yes Comments:: 07/05/17 13:57 GENERAL/CONSTITUTIONAL: No fever or chills. No weakness. HEAD, EYES, EARS, NOSE AND THROAT: No change in vision. No ear pain or discharge. No sore throat. CARDIOVASCULAR: +Chest pain. No shortness of breath. RESPIRATORY: No cough, wheezing, or hemoptysis. GASTROINTESTINAL: +Nausea. No vomiting, diarrhea or constipation. GENITOURINARY: No dysuria, frequency, or change in urination. MUSCULOSKELETAL: No joint or muscle swelling or pain. No neck or back pain. SKIN: No rash NEUROLOGIC: +Headache. No vertigo, loss of consciousness, or change in strength/ sensation. ENDOCRINE: No increased thirst. No abnormal weight change. HEMATOLOGIC/LYMPHATIC: No anemia, easy bleeding, or history of blood clots. ALLERGIC/IMMUNOLOGIC: No hives or skin allergy. <Jackelin Morris - Last Filed: 07/05/17 19:04> *Physical Exam - Vital Signs Last Vital Signs Temp Pulse Resp BP Pulse Ox 98.5 F 95 H 20 135/80 99 07/05/17 10:36 07/05/17 10:36 07/05/17 10:36 07/05/17 10:36 07/05/17 10:36 <Julieth Stone - Last Filed: 07/05/17 17:35> - Vital Signs Last Vital Signs Temp Pulse Resp BP Pulse Ox 98.5 F 95 H 20 135/80 99 07/05/17 10:36 07/05/17 10:36 07/05/17 10:36 07/05/17 10:36 07/05/17 10:36 - Physical Exam Comments: 07/05/17 13:58 GENERAL: The patient is in no acute distress. Awake and Alert. Anxious, tearful. HEAD: Normal with no signs of trauma. EYES: PERRLA, EOMI, sclera anicteric, conjunctiva clear. ENT: Ears normal, nares patent, oropharynx clear without exudates. Moist mucous membranes. NECK: Normal range of motion, supple without lymphadenopathy, JVD, or masses. LUNGS: Breath sounds equal, clear to auscultation bilaterally. No wheezes, and no crackles. HEART: Regular rate and rhythm, normal S1 and S2 without murmur, rub or gallop. ABDOMEN: Soft, nontender, normoactive bowel sounds. No guarding, no rebound. No masses palpable. EXTREMITIES: Normal range of motion, no edema. No clubbing or cyanosis. No erythema, or tenderness. NEUROLOGICAL: Cranial nerves II through XII grossly intact. Normal speech. No focal neurological deficits. MUSCULOSKELETAL: Back non-tender to palpation, no CVA tenderness SKIN: Warm, Dry, normal turgor, no rashes or lesions noted. <Jackelin Morris - Last Filed: 07/05/17 19:04> ED Treatment Course - LABORATORY CBC & Chemistry Diagram: 07/05/17 15:00 07/05/17 12:58 <Julieth Stone - Last Filed: 07/05/17 17:35> - LABORATORY CBC & Chemistry Diagram: 07/05/17 15:00 07/05/17 12:58 - RADIOLOGY Radiograph Interpretation: 07/05/17 17:13 First call placed to Dr. Vargas at 17:13. Awaiting call back from Dr. Quiroz. - Medications Given in the ED: ED Medications Discontinued Medications Generic Name Dose Route Start Last Admin Trade Name Chance PRN Reason Stop Dose Admin Alprazolam 0.25 mg 07/05/17 13:02 07/05/17 13:42 Xanax - PO 07/05/17 13:03 0.25 mg ONCE ONE Administration <Jackelin Morris - Last Filed: 07/05/17 19:04> Medical Decision Making - Medical Decision Making 07/05/17 15:40 Ms Sumner presents to the ER with a complaints of chest pain Pt has had repeated presentations ot the ER for the same complaints No fevers or chills Pt states she could not sleep last night Chest pain has been constant since last night Pt also has headache since last night No shortness of breath Pt with multiple presentations for the same complaint Today, she states it is different because she has MORE pain than prior Pt did not go to her Cardiology appointment which was scheduled for today On examination RRR CTA No abd tenderness No lower extremity edema Will do: Labs EKG Xanax Treat headache Re assess EKG: SR, rate of 85 bpm, Hundred nml, intervals nml, no st elevations or depressions, T waves upright 07/05/17 17:35 Labs WNL PT Chest pain improved Pt briefly noted to be jittery, anxious ?possibly related to Reglan Will give Benadryl Case reviewed with Dr. Morgan Plan is to admit to hospitalist service Case reviewed with Dr Quiroz, pt will be seen by Cards consult while in hospital consider Psych Consider transfer to assisted Clinical Impression: chest pain, initial presentation Anxiety, initial presentation <Julieth Stone - Last Filed: 07/05/17 17:35> - Medical Decision Making 07/05/17 16:17 First call placed to Dr. Mabry at 15:52 awaiting call back. Case discussed with Dr. Mabry at 16:18. <Jackelin Morris - Last Filed: 07/05/17 19:04> *DC/Admit/Observation/Transfer - Discharge Dispostion Decision to Admit order: Yes <Julieth Stone - Last Filed: 07/05/17 17:35> - Attestations Scribe Attestion: 07/05/17 13:59 Documentation prepared by Jackelin Morris, acting as medical claims examiner for Julieth Stone MD. <Jackelin Morris - Last Filed: 07/05/17 19:04> Diagnosis at time of Disposition: Atypical chest pain - Discharge Dispostion Condition at time of disposition: Stable - Referrals Referrals: Waldo Mabry MD [Primary Care Provider] - - Patient Instructions - Post Discharge Activity
[2017-07-05] MEDS ORDERED: METOCLOPRAMIDE HCL INJECTION 10 MG/2 ML VIAL IVPUSH ONE (13:02)
[2017-07-05] MEDS ORDERED: ALPRAZolam 0.25 MG TABLET PO ONE (13:02)
[2017-07-05] MEDS ORDERED: SODIUM CHLORIDE 1,000 ML IV STA (13:02)
[2017-07-05] MEDS ORDERED: METOCLOPRAMIDE HCL INJECTION 10 MG/2 ML VIAL ONE (13:08)
[2017-07-05] MEDS ORDERED: ALPRAZolam 0.25 MG TABLET ONE (13:08)
[2017-07-05 15:20] LABS: HEMOGLOBIN 11.1 GM/dL (10.7-15.3); LYMPH % 23.8 % (8-40); MCH 24.6 pg (25.7-33.7); MCHC 31.7 g/dl (32.0-36.0); MEAN CELL VOLUME 77.5 fl (80-96); MONO % 13.1 % (3.8-10.2); NEUT % 60.1 % (42.8-82.8); PLATELET COUNT 382 K/MM3 (134-434); RBC 4.52 M/mm3 (3.60-5.2); RDW 19.2 % (11.6-15.6); WHITE BLOOD COUNT 5.3 K/mm3 (4.0-10.0)
[2017-07-05 16:10] LABS: ALBUMIN 3.6 g/dl (3.4-5.0); ANION GAP 8 (8-16); BILIRUBIN,TOTAL 0.4 mg/dL (0.2-1.0); BLOOD UREA NITROGEN 12 mg/dL (7-18); CALCIUM 8.6 mg/dL (8.5-10.1); CHLORIDE 95 mmol/L (98-107); CO2 27 mmol/L (21-32); CREATININE 0.7 mg/dL (0.55-1.02); GLUCOSE,RANDOM 108 mg/dL (74-106); MAGNESIUM 2.3 mg/dL (1.8-2.4); POTASSIUM 4.5 mmol/L (3.5-5.1); SGOT/AST 34 U/L (15-37); SGPT/ALT 32 U/L (12-78); SODIUM 130 mmol/L (136-145); TOT PROT 7.8 g/dl (6.4-8.2)
[2017-07-05 16:13] LABS: ALK PHOS 212 U/L (45-117); N-TERMINAL BNP 186.73 pg/ml (5-125)
[2017-07-05 16:14] LABS: INR 1.06 (0.82-1.09)
--- NOTE | 2017-07-05 16:32 | EKG ---
Test Reason : Blood Pressure : / mmHG Vent. Rate : 085 BPM Atrial Rate : 085 BPM P-R Int : 152 ms QRS Dur : 072 ms QT Int : 364 ms P-R-T Axes : 038 -03 034 degrees QTc Int : 433 ms POOR DATA QUALITY, INTERPRETATION MAY BE ADVERSELY AFFECTED NORMAL SINUS RHYTHM NORMAL ECG WHEN COMPARED WITH ECG OF 03-JUL-2017 17:38, NO SIGNIFICANT CHANGE WAS FOUND Confirmed by LORENZO SEVILLA, ANNITA ([id number]) on 07/05/2017 4:32:30 PM Referred By: Confirmed By:ANNITA VENTURA MD
--- NOTE | 2017-07-05 17:54 | HP ---
CHIEF COMPLAINT: chest pain PCP: Dr. Morgan HISTORY OF PRESENT ILLNESS: 71 y/o F with PMH HTN, HLD, hx gastric ulcer, asthma, brain tumor s/p resection , s/p cholecystectomy, anxiety, recent ED visit for chest pain 07/03 (- trops), normal stress test May 2017, ECHO WNL January 2017, Holter without significant events 01/29, who presents to the ED c/o chest pain for the past three days, that was worsened last night. As per pt, three days ago, she developed mid-sternal L sided, constant, 7/10 chest pain. It was non-radiating, with no alleviating fx. She tried to use Vicks rub for her symptoms, however was unsuccessful. Last night her sx worsened. Pt was supposed to see Dr. Vargas (her cardio) for an appointment today, however decided to come to the ED. Pt's sx are worsened by stress and emotion. She has felt very sad lately when she thinks about her daughter who . Pt also endorses decreased sleep, loss of interest in activities once enjoyed, loss of energy and decreased concentration. During this time, she also has had a global, diffuse GALLARDO and non-specific epigastric pain. Denies fever, chills, SOB, or changes in urinary or bowel function. Pt not compliant with medications. ER course was notable for: (1) EKG- NSR 85bpm, no st elevations or depressions (2) trop (-) (3) emotional during interview, crying Recent Travel: denies PAST MEDICAL HISTORY: as above PAST SURGICAL HISTORY: brain tumor s/p resection, s/p cholecystectomy Social History: lives at home alone, however has a health aid Smoking: denies Alcohol: denies Drugs: denies Family History: became emotional when asked as they had . DM in multiple family members Allergies aspirin Allergy (Severe, Verified 07/05/17 10:39) "NERVOUS" morphine Allergy (Severe, Verified 07/05/17 10:39) "ANXIETY-DESPERATION" HOME MEDICATIONS: Home Medications Medication Instructions Recorded Escitalopram Oxalate [Lexapro -] 10 mg PO DAILY 03/10/16 Divalproex [Depakote -] 500 mg PO BID 12/15/16 Oxybutynin Chloride [Ditropan Xl] 15 mg PO DAILY 12/15/16 Quetiapine Fumarate [Seroquel -] 25 mg PO DAILY 12/15/16 Linaclotide [Linzess] 72 mcg PO DAILY 01/19/17 Lipase/Protease/Amylase [Creon Dr 1 each PO TID 01/19/17 36,000 Units Capsule] Metoprolol Succinate [Toprol XL -] 25 mg PO DAILY #30 tab.sr.24h 02/06/17 Famotidine [Pepcid -] 20 mg PO DAILY #14 tablet 05/07/17 Amlodipine Besylate [Norvasc -] 10 mg PO DAILY 06/27/17 Mirtazapine [Remeron -] 15 mg PO HS 06/27/17 Sucralfate [Carafate -] 1 gm PO QID 06/27/17 REVIEW OF SYSTEMS CONSTITUTIONAL: Absent: fever, chills, diaphoresis, generalized weakness, malaise, loss of appetite, weight change HEENT: Absent: rhinorrhea, nasal congestion, throat pain, throat swelling, difficulty swallowing, mouth swelling, ear pain, eye pain, visual changes CARDIOVASCULAR: +chest pain Absent: syncope, palpitations, irregular heart rate, lightheadedness, peripheral edema RESPIRATORY: Absent: cough, shortness of breath, dyspnea with exertion, orthopnea, wheezing, stridor, hemoptysis GASTROINTESTINAL: Absent: abdominal pain, abdominal distension, nausea, vomiting, diarrhea, constipation, melena, hematochezia GENITOURINARY: Absent: dysuria, frequency, urgency, hesitancy, hematuria, flank pain, genital pain MUSCULOSKELETAL: Absent: myalgia, arthralgia, joint swelling, back pain, neck pain SKIN: Absent: rash, itching, pallor HEMATOLOGIC/IMMUNOLOGIC: Absent: easy bleeding, easy bruising, lymphadenopathy, frequent infections ENDOCRINE: Absent: unexplained weight gain, unexplained weight loss, heat intolerance, cold intolerance NEUROLOGIC: +headache Absent: focal weakness or paresthesias, dizziness, unsteady gait, seizure, mental status changes, bladder or bowel incontinence PSYCHIATRIC: Absent: anxiety, depression, suicidal or homicidal ideation, hallucinations. PHYSICAL EXAMINATION Vital Signs - 24 hr 07/05/17 07/05/17 07/05/17 10:36 15:21 17:06 Temperature 98.5 F 98.1 F Pulse Rate 95 H Pulse Rate [ 84 Apical] Respiratory 20 18 Rate Blood Pressure 135/80 Blood Pressure 142/75 [Right Arm] O2 Sat by Pulse 99 97 97 Oximetry (%) GENERAL: Sitting comfortably, tearful and worried. awake, alert, and fully oriented, in no acute distress. HEAD: Normal with no signs of trauma. EYES: Pupils equal, round and reactive to light, extraocular movements intact, sclera mildly injected, conjunctiva clear. EARS, NOSE, THROAT: Ears normal, nares patent, oropharynx clear without exudates. Moist mucous membranes. NECK: Normal range of motion, supple without lymphadenopathy LUNGS: decreased breath sounds 2/2 body habitus, clear to auscultation bilaterally. No wheezes, and no crackles. No accessory muscle use. HEART: Regular rate and rhythm, normal S1 and S2 without murmur, rub or gallop. ABDOMEN: Soft, +TTP mid-epigastrium, not distended, normoactive bowel sounds, no guarding, no rebound, no masses. MUSCULOSKELETAL: Normal range of motion at all joints. LOWER EXTREMITIES: 2+ posterior tibial pulses, warm, well-perfused. +erythema in LE b/l NEUROLOGICAL: Cranial nerves II-XII intact. Normal speech. PSYCHIATRIC: worried, anxious Laboratory Results - last 24 hr 07/05/17 07/05/17 07/05/17 12:58 12:58 15:00 WBC 5.3 RBC 4.52 Hgb 11.1 D Hct 35.0 D MCV 77.5 L MCH 24.6 L MCHC 31.7 L RDW 19.2 H Plt Count 382 MPV 7.0 L Neutrophils % 60.1 Lymphocytes % 23.8 Monocytes % 13.1 H Eosinophils % 2.0 Basophils % 1.0 Nucleated RBC % 0 PT with INR 12.00 INR 1.06 Sodium 130 L Potassium 4.5 Chloride 95 L Carbon Dioxide 27 Anion Gap 8 BUN 12 Creatinine 0.7 Creat Clearance w eGFR > 60 Random Glucose 108 H Calcium 8.6 Magnesium 2.3 Total Bilirubin 0.4 AST 34 ALT 32 Alkaline Phosphatase 212 H Creatine Kinase 92 Troponin I < 0.02 B-Natriuretic Peptide 186.73 H Total Protein 7.8 Albumin 3.6 TESTING 07/05/17 CXR: the cardiac silhouette there are mild bilateral increased lung markings without evidence of focal infiltrates. mediastinum and visualized osseus structures appear grossly intact. 07/05/17 EKG- NSR 85bpm, no st elevations or depressions ASSESSMENT/PLAN: 71 y/o F with PMH HTN, HLD, hx gastric ulcer, asthma, brain tumor s/p resection , s/p cholecystectomy, anxiety, recent ED visit for chest pain 07/03 (- trops), normal stress test May 2017, ECHO WNL January 2017, Holter without significant events 01/29, who presents to the ED c/o chest pain for the past three days, that was worsened last night. #Chest pain likely 2/2 stress, anxiety -pt tearful on exam, with chest pain exacerbated by emotion -fulfills depression criteria SIGECAPS 06/21 -with hx normal ECHO, stress test recent past -initial trop (-), continue to trend q6h, serial EKGs -telemetry monitoring -F/u cardio consult- Dr. Quiroz #Depression -fulfills depression criteria SIGECAPS 06/21 -no need for 1:1 at this time, no harm with hurting self -F/u psychology consult - Dr. Amaya; if cause addressed should aid sx -F/u psychiatry consult- Dr. Tellez #HTN- controlled -Continue metoprolol succinate 25mg PO qd -norvasc 10mg PO qd #HLD -Currently is not on a statin #hx gastric ulcer -will hold pepcid 20mg PO qd -started on protonix 40mg IVP qd -possible pt's midepigastric discomfort is 2/2 reflux #asthma -currently controlled -not in exacerbation, without SOB -if needed can add ventolin q4h PRN #constipation -starting on miralax 17gm PO qd #h/o seizure disorder -depakote 500mg PO BID #F/E/N -encourage PO intake -continue to follow lytes -sodium controlled diet #PPX Hep 5000 SQ TID #Dispo tele obs Visit type - Emergency Visit Emergency Visit: Yes Care time: The patient presented to the Emergency Department on the above date and was hospitalized for further evaluation of their emergent condition. - New Patient This patient is new to me today: Yes Date on this admission: 07/05/17 - Critical Care Critical Care patient: No Hospitalist Screening - Colonoscopy Questionnaire Colonoscopy Questionnaire: Colonoscopy Questionnaire - Patient: 50 - 75 years old and never had a screening colonoscopy: Unknown History of colon or rectal polyps, or CA: Unknown History of IBD, Crohn's disease or UC: Unknown History of abdominal radiation therapy as a child: Unknown - Relative: 1 with colon or rectal CA, or polyps at age 60 or younger: Unknown Colon or rectal CA diagnosed at age 45 or younger: Unknown Multiple relatives with colon or rectal CA: Unknown - Outcome: Screening Result: Negative Screen
[2017-07-05] MEDS ORDERED: PATIENT'S OWN MEDICATION (NON-FORMULARY) (Linaclotide [Linzess] 72 MCG) PO SCH (18:00)
--- NOTE | 2017-07-05 18:21 | HP ---
CHIEF COMPLAINT: chest pain PCP: Cathy HISTORY OF PRESENT ILLNESS: The patient is a 71 year old female with a significant PMH of COPD, GERD, hiatal hernia, obesity, seizures, hypertension, CVA, OA and anxiety who presents to the emergency department with chest pain. She states that it is present for 3 days but got worse overnight. It is located in mid sternum, constant, not radiating, no alleviating/no aggravating factors. The patient has been seen in [facility] for chest pain multiple times and discharged home with recommendations to follow up with her Crib Clerk. She was last seen on . She was scheduled to see Dr Vargas but she preferred to come to emergency room instead. The patient denies palpitations, SOB. The patient had a stress test and ECHO that were both normal. While speaking with the patient she started crying over the of her daughter that . She endorses lack of appetite, lack of interest in daily activities, insomnia and felling depressed. She also has occasional headache. Denies fever, chills, nausea, vomit, diarrhea and constipation. Denies dysuria, frequency, urgency and hematuria. She is not compliant with her medications. ER course was notable for: (1)EKG (2)troponin (3)NS PAST MEDICAL HISTORY: as above PAST SURGICAL HISTORY: Cataracts w/ corrective surgery, Brain surgery-left meningioma Social History: Smoking:denies Alcohol:denies Drugs:denies Family History: N/A Allergies aspirin Allergy (Severe, Verified 07/05/17 10:39) "NERVOUS" morphine Allergy (Severe, Verified 07/05/17 10:39) "ANXIETY-DESPERATION" HOME MEDICATIONS: Home Medications Medication Instructions Recorded Escitalopram Oxalate [Lexapro -] 10 mg PO DAILY 03/10/16 Divalproex [Depakote -] 500 mg PO BID 12/15/16 Oxybutynin Chloride [Ditropan Xl] 15 mg PO DAILY 12/15/16 Quetiapine Fumarate [Seroquel -] 25 mg PO DAILY 12/15/16 Linaclotide [Linzess] 72 mcg PO DAILY 01/19/17 Lipase/Protease/Amylase [Creon Dr 1 each PO TID 01/19/17 36,000 Units Capsule] Metoprolol Succinate [Toprol XL -] 25 mg PO DAILY #30 tab.sr.24h 02/06/17 Famotidine [Pepcid -] 20 mg PO DAILY #14 tablet 05/07/17 Amlodipine Besylate [Norvasc -] 10 mg PO DAILY 06/27/17 Mirtazapine [Remeron -] 15 mg PO HS 06/27/17 Sucralfate [Carafate -] 1 gm PO QID 06/27/17 REVIEW OF SYSTEMS CONSTITUTIONAL: Absent: fever, chills, diaphoresis, generalized weakness, malaise, loss of appetite, weight change HEENT: Absent: rhinorrhea, nasal congestion, throat pain, throat swelling, difficulty swallowing, mouth swelling, ear pain, eye pain, visual changes CARDIOVASCULAR: chest pain, Absent: syncope, palpitations, irregular heart rate, lightheadedness, peripheral edema RESPIRATORY: Absent: cough, shortness of breath, dyspnea with exertion, orthopnea, wheezing, stridor, hemoptysis GASTROINTESTINAL: Absent: abdominal pain, abdominal distension, nausea, vomiting, diarrhea, constipation, melena, hematochezia GENITOURINARY: Absent: dysuria, frequency, urgency, hesitancy, hematuria, flank pain, genital pain ENDOCRINE: Absent: unexplained weight gain, unexplained weight loss NEUROLOGIC: Absent: headache, focal weakness or paresthesias, dizziness, unsteady gait, seizure PSYCHIATRIC: anxiety, depression, Absent:suicidal or homicidal ideation, hallucinations PHYSICAL EXAMINATION Vital Signs - 24 hr 07/05/17 07/05/17 07/05/17 10:36 15:21 17:06 Temperature 98.5 F 98.1 F Pulse Rate 95 H Pulse Rate [ 84 Apical] Respiratory 20 18 Rate Blood Pressure 135/80 Blood Pressure 142/75 [Right Arm] O2 Sat by Pulse 99 97 97 Oximetry (%) GENERAL: Awake, alert, and fully oriented, in no acute distress. HEAD: Normal with no signs of trauma. EYES: Pupils equal, round and reactive to light, extraocular movements intact, sclera anicteric, conjunctiva clear. EARS, NOSE, THROAT: Ears normal, nares patent, oropharynx clear without exudates. Moist mucous membranes. NECK: Normal range of motion, supple without lymphadenopathy, JVD, or masses. LUNGS: Breath sounds equal, clear to auscultation bilaterally. No wheezes, and no crackles. HEART: Regular rate and rhythm, normal S1 and S2 without murmur, rub or gallop. ABDOMEN: Obese, soft, nontender, not distended, normoactive bowel sounds, no guarding, no rebound, no masses. MUSCULOSKELETAL: Normal range of motion at all joints. No bony deformities or tenderness. No CVA tenderness. UPPER EXTREMITIES: No peripheral edema. LOWER EXTREMITIES: 2+ pulses, trace peripheral edema, mild redness below her knee b/l. NEUROLOGICAL: Normal speech, no facial asymmetry, no gait observed. PSYCHIATRIC: Cooperative. Good eye contact. Tearful. SKIN: Warm, dry, normal turgor, no rashes or lesions noted. Laboratory Results - last 24 hr 07/05/17 07/05/17 07/05/17 12:58 12:58 15:00 WBC 5.3 RBC 4.52 Hgb 11.1 D Hct 35.0 D MCV 77.5 L MCH 24.6 L MCHC 31.7 L RDW 19.2 H Plt Count 382 MPV 7.0 L Neutrophils % 60.1 Lymphocytes % 23.8 Monocytes % 13.1 H Eosinophils % 2.0 Basophils % 1.0 Nucleated RBC % 0 PT with INR 12.00 INR 1.06 Sodium 130 L Potassium 4.5 Chloride 95 L Carbon Dioxide 27 Anion Gap 8 BUN 12 Creatinine 0.7 Creat Clearance w eGFR > 60 Random Glucose 108 H Calcium 8.6 Magnesium 2.3 Total Bilirubin 0.4 AST 34 ALT 32 Alkaline Phosphatase 212 H Creatine Kinase 92 Troponin I < 0.02 B-Natriuretic Peptide 186.73 H Total Protein 7.8 Albumin 3.6 ASSESSMENT/PLAN: The patient is a 71 year old female with a significant PMH of COPD, GERD, hiatal hernia, obesity, seizures, hyperlipidemia, hypertension, CVA, OA and anxiety who presents to the emergency department with chest pain. She states that it is present for 3 days but got worse overnight. It is located in mid sternum, constant, not radiating, no alleviating/no aggravating factors. The patient has been seen in [facility] for chest pain multiple times and discharged home with recommendations to follow up with her Crib Clerk. She is admitted for observation for chest pain. Chest pain: -the patient presents with a midsternal, constant chest pain -no EKG changes, NSR, no navya/std -first troponin negative, will follow -will continue cardiac monitoring -Cardiology evaluation, will f/u recommendations Depression: -the patient presents complaining of feeling depressed, multiple hospitalizations for chest pain may suggest masking depression -she is not at risk of harming herself, no 1;1 needed -will consult psychiatry and psychology GERD; -continue Protonix Hypertension: cont Norvasc and metoprolol Seizure disorder; -con home meds DVT PPX: heparin sq Dispo: tele obs Discussed with Dr Rubin Full note to follow. Problem List - Problem (1) Atypical chest pain Code(s): R07.89 - OTHER CHEST PAIN (2) Abdominal pain Code(s): R10.9 - UNSPECIFIED ABDOMINAL PAIN (3) Acid reflux disease with ulcer Code(s): K21.9 - GASTRO-ESOPHAGEAL REFLUX DISEASE WITHOUT ESOPHAGITIS (4) Acute renal insufficiency Code(s): N28.9 - DISORDER OF KIDNEY AND URETER, UNSPECIFIED (5) Anxiety Code(s): F41.9 - ANXIETY DISORDER, UNSPECIFIED (6) Arthritis Code(s): M19.90 - UNSPECIFIED OSTEOARTHRITIS, UNSPECIFIED SITE (7) Chest pain Code(s): R07.9 - CHEST PAIN, UNSPECIFIED Qualifiers: Chest pain type: unspecified Qualified Code(s): R07.9 - Chest pain, unspecified (8) DJD (degenerative joint disease) of knee Code(s): M17.9 - OSTEOARTHRITIS OF KNEE, UNSPECIFIED Qualifiers: Osteoarthritis type: primary Laterality: bilateral Qualified Code(s): M17.0 - Bilateral primary osteoarthritis of knee (9) DVT prophylaxis Code(s): [id number] - (10) GERD (gastroesophageal reflux disease) Code(s): K21.9 - GASTRO-ESOPHAGEAL REFLUX DISEASE WITHOUT ESOPHAGITIS Qualifiers: Esophagitis presence: esophagitis presence not specified Qualified Code(s) : K21.9 - Gastro-esophageal reflux disease without esophagitis (11) History of CVA (cerebrovascular accident) Code(s): Z86.73 - PRSNL HX OF TIA (TIA), AND CEREB INFRC W/O RESID DEFICITS Visit type - Emergency Visit Emergency Visit: Yes Care time: The patient presented to the Emergency Department on the above date and was hospitalized for further evaluation of their emergent condition. - New Patient This patient is new to me today: Yes Date on this admission: 07/05/17 - Critical Care Critical Care patient: No
[2017-07-05] MEDS: PANTOPRAZOLE SODIUM 40 MG VIAL IVPUSH SCH (18:42)
[2017-07-05] MEDS: POLYETHYLENE GLYCOL 3350 119 GM BTL PO SCH (18:42)
[2017-07-05] MEDS ORDERED: PANTOPRAZOLE SODIUM 40 MG VIAL ONE (18:43)
--- NOTE | 2017-07-05 18:45 | PN ---
Teaching Attending Note Name of Resident: Viv Shah ATTENDING PHYSICIAN STATEMENT I saw and evaluated the patient. I reviewed the resident's note and discussed the case with the resident. I agree with the resident's findings and plan as documented. SUBJECTIVE: This is a 71 year old woman with a history of HTN, hyperlipidemia, seizure disorder, gastric ulcer, asthma, brain tumor and resection, cholecystectomy, anxiety who comes to the ED complaining of chest pain x 3 days. Pain has been located in the middle of her chest, non-radiating, and continuous. It worsened last night. Pain is worse with stress and when she thinks about her daughter. She is fatigued, doesn't sleep well, and has lost interest in doing things. OBJECTIVE: Vital Signs Period Temp Pulse Resp BP Sys/Christensen Pulse Ox Last 24 Hr 98.1 F-98.5 F 84-95 18-20 135-142/75-80 97-99 HEART: S1S2, RRR LUNGS: Clear ABDOMEN: Obese, soft, non-tender, non-distended, normal BS EXTREMITIES: No edema Laboratory Tests 07/05/17 07/05/17 07/05/17 12:58 12:58 15:00 WBC 5.3 RBC 4.52 Hgb 11.1 D Hct 35.0 D MCV 77.5 L MCH 24.6 L MCHC 31.7 L RDW 19.2 H Plt Count 382 MPV 7.0 L Neutrophils % 60.1 Lymphocytes % 23.8 Monocytes % 13.1 H Eosinophils % 2.0 Basophils % 1.0 Nucleated RBC % 0 PT with INR 12.00 INR 1.06 Sodium 130 L Potassium 4.5 Chloride 95 L Carbon Dioxide 27 Anion Gap 8 BUN 12 Creatinine 0.7 Creat Clearance w eGFR > 60 Random Glucose 108 H Calcium 8.6 Magnesium 2.3 Total Bilirubin 0.4 AST 34 ALT 32 Alkaline Phosphatase 212 H Creatine Kinase 92 Troponin I < 0.02 B-Natriuretic Peptide 186.73 H Total Protein 7.8 Albumin 3.6 Home Medications Medication Instructions Recorded Escitalopram Oxalate [Lexapro -] 10 mg PO DAILY 03/10/16 Divalproex [Depakote -] 500 mg PO BID 12/15/16 Oxybutynin Chloride [Ditropan Xl] 15 mg PO DAILY 12/15/16 Quetiapine Fumarate [Seroquel -] 25 mg PO DAILY 12/15/16 Linaclotide [Linzess] 72 mcg PO DAILY 01/19/17 Lipase/Protease/Amylase [Creon Dr 1 each PO TID 01/19/17 36,000 Units Capsule] Metoprolol Succinate [Toprol XL -] 25 mg PO DAILY #30 tab.sr.24h 02/06/17 Famotidine [Pepcid -] 20 mg PO DAILY #14 tablet 05/07/17 Amlodipine Besylate [Norvasc -] 10 mg PO DAILY 06/27/17 Mirtazapine [Remeron -] 15 mg PO HS 06/27/17 Sucralfate [Carafate -] 1 gm PO QID 06/27/17 ASSESSMENT AND PLAN: This is a 71 year old woman with a history of HTN, hyperlipidemia, seizure disorder, gastric ulcer, asthma, brain tumor and resection, cholecystectomy, anxiety who presented to the ED with chest pain x 3 days. 1. Atypical chest pain - Unlikely to be cardiac, more likely related to stress, anxiety, and depression - Observe on telemetry - Serial troponins - Cardiology, psychiatry evaluations 2. HTN - Continue Norvsac, Toprol XL 3. Hyperlipidemia 4. Depression with anxiety - Continue Lexapro, Seroquel, Remeron 5. Asthma - Stable 6. Seizure disorder - Continue Depakote 7. History of gastric ulcer - Continue Pepcid, Carafate
[2017-07-05] MEDS ORDERED: ESCITALOPRAM OXALATE 10 MG TABLET (FP) ONE ×3 (20:49→20:51)
[2017-07-05] MEDS ORDERED: QUEtiapine FUMARATE 25 MG TABLET (FP) ONE (20:49)
[2017-07-05] MEDS ORDERED: SUCRALFATE 1 GM TABLET (FP) ONE ×2 (20:49→23:16)
[2017-07-05] MEDS: SUCRALFATE 1 GM TABLET (FP) PO SCH ×2 (20:56→23:22)
[2017-07-05] MEDS: ESCITALOPRAM OXALATE 10 MG TABLET (FP) PO SCH (20:57)
[2017-07-05] MEDS: SOLIFENACIN SUCCINATE 5 MG TAB (FP) PO SCH (20:57)
[2017-07-05] MEDS: QUEtiapine FUMARATE 25 MG TABLET (FP) PO SCH (20:57)
[2017-07-05] MEDS: metoPROLOL SUCCINATE 25 MG TAB.SR.24H (FP) PO SCH (20:57)
[2017-07-05] MEDS: amLODIPine BESYLATE 10 MG TABLET (FP) PO SCH (20:57)
[2017-07-05] MEDS ORDERED: DIVALPROEX SODIUM 250 MG TABLET E.C. PO SCH (22:00)
[2017-07-05] MEDS ORDERED: MIRTAZAPINE 15 MG TABLET (FP) PO SCH (22:00)
[2017-07-05] MEDS ORDERED: MIRTAZAPINE 15 MG TABLET (FP) ONE ×2 (23:16→23:17)
[2017-07-05] MEDS ORDERED: DIVALPROEX SODIUM 500 MG TABLET E.C. ONE (23:16)
[2017-07-05] MEDS ORDERED: HEPARIN NA (PORCINE) 5,000 UNITS/ML 1ML VIAL ONE (23:16)
[2017-07-05] MEDS: DIVALPROEX SODIUM 500 MG TABLET E.C. PO SCH (23:22)
[2017-07-05] MEDS: HEPARIN NA (PORCINE) 5,000 UNITS/ML 1ML VIAL SQ SCH (23:22)
[2017-07-06 07:13] LABS: BASO % 0.6 % (0-2.0); EOS % 1.2 % (0-4.5); HEMATOCRIT 34.8 % (32.4-45.2); HEMOGLOBIN 11.1 GM/dL (10.7-15.3); LYMPH % 20.4 % (8-40); MCH 24.7 pg (25.7-33.7); MCHC 31.9 g/dl (32.0-36.0); MEAN CELL VOLUME 77.6 fl (80-96); MEAN PLT VOLUME 7.1 fl (7.5-11.1); MONO % 10.6 % (3.8-10.2); NEUT % 67.2 % (42.8-82.8); PLATELET COUNT 359 K/MM3 (134-434); RBC 4.48 M/mm3 (3.60-5.2); RDW 19.3 % (11.6-15.6); WHITE BLOOD COUNT 5.5 K/mm3 (4.0-10.0)
[2017-07-06] MEDS: HEPARIN NA (PORCINE) 5,000 UNITS/ML 1ML VIAL SQ SCH ×3 (07:30→21:02)
[2017-07-06 07:48] LABS: ANION GAP 8 (8-16); BLOOD UREA NITROGEN 11 mg/dL (7-18); CALCIUM 8.8 mg/dL (8.5-10.1); CHLORIDE 100 mmol/L (98-107); CO2 27 mmol/L (21-32); GLUCOSE,RANDOM 106 mg/dL (74-106); MAGNESIUM 2.3 mg/dL (1.8-2.4); POTASSIUM 4.4 mmol/L (3.5-5.1); SODIUM 135 mmol/L (136-145)
[2017-07-06 07:49] LABS: CREATININE 0.7 mg/dL (0.55-1.02)
[2017-07-06] MEDS ORDERED: PANTOPRAZOLE SODIUM 40 MG/100 ML BAG IVPB ONE (11:30)
[2017-07-06] MEDS: DIVALPROEX SODIUM 500 MG TABLET E.C. PO SCH ×2 (11:41→21:02)
[2017-07-06] MEDS: LIPASE/PROTEASE/AMYLASE 36,000 UNIT CAPSULE PO SCH ×3 (11:41→18:45)
[2017-07-06] MEDS: SUCRALFATE 1 GM TABLET (FP) PO SCH ×4 (11:41→21:01)
[2017-07-06] MEDS: POLYETHYLENE GLYCOL 3350 119 GM BTL PO SCH (11:41)
[2017-07-06] MEDS: ESCITALOPRAM OXALATE 10 MG TABLET (FP) PO SCH (11:41)
[2017-07-06] MEDS: amLODIPine BESYLATE 10 MG TABLET (FP) PO SCH (11:41)
[2017-07-06] MEDS: PANTOPRAZOLE SODIUM 40 MG VIAL IVPUSH SCH (11:42)
[2017-07-06] MEDS: QUEtiapine FUMARATE 25 MG TABLET (FP) PO SCH (11:42)
[2017-07-06] MEDS: metoPROLOL SUCCINATE 25 MG TAB.SR.24H (FP) PO SCH (11:42)
[2017-07-06] MEDS: SOLIFENACIN SUCCINATE 5 MG TAB (FP) PO SCH (11:42)
--- NOTE | 2017-07-06 17:02 | CON.CARD ---
Consult Consult Specialty:: cardiology Reason for Consultation:: chest discomfort - History of Present Illness Chief Complaint: Pt A&O; chest pain occurs only when she is very anxious History of Present Illness: The patient is a 71 year old female, with a significant past medical history of hypertension, hyperlipidemia,hx gastric ulcer, asthma, brain tumor s/p resection , s/p cholecystectomy, anxiety, and recent ED visit for chest pain (07/03/17), who presents to the emergency department with chest pain since last night. Per aide, patient was unable to sleep last night secondary to chest pain. Patient reports associated headache and decreased appetite, but denies any fever, chills , cough, or dizziness. She denies any shortness of breath, diaphoresis, or palpitations. Patient reports taking Tylenol for her symptoms with minimal relief. She reports some nausea, but denies any abdominal pain, vomiting, diarrhea, or constipation. Patient has multiple visits to our ED and [facility] for chest pain, for which she was sent for outpatient Cardiology evaluation. Patient had a holter monitor(02/05/17) and a stress test in May of 2017(all which were negative). No recent exacerbating factors. Per aide, patient has not been compliant with her medications lately. Allergies: Aspirin, Morphine Past Surgical History: Cholecystectomy Social History: Non smoker. No ETOH or recreational use. 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: Yes: CVA Cardio/Vascular: Yes: HTN, Hyperlipdemia Gastrointestinal: Yes: GERD, Hiatal Hernia, Peptic Ulcer Disease Renal/: Yes: Other (hyponatremia) Psych: Yes: Anxiety, Depression Musculoskeletal: Yes: Osteoarthritis Endocrine: Yes: Diabetes Mellitus - Past Surgical History Past Surgical History: Yes: Cataract Removal (bilateral), Joint Replacement (RT KNEE) - Alcohol/Substance Use Hx Alcohol Use: No History of Substance Use: reports: None - Smoking History Smoking history: Never smoked Have you smoked in the past 12 months: No Aproximately how many cigarettes per day: 0 - Social History 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, 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 History of Recent Travel: No Home Medications - Allergies Allergies/Adverse Reactions: Allergies Allergy/AdvReac Type Severity Reaction Status Date / Time aspirin Allergy Severe "NERVOUS" Verified 07/05/17 10:39 morphine Allergy Severe "ANXIETY-DE Verified 07/05/17 10:39 SPERATION" - Home Medications Home Medications: Ambulatory Orders Escitalopram Oxalate [Lexapro -] 10 mg PO DAILY 03/10/16 Divalproex [Depakote -] 500 mg PO BID 12/15/16 Oxybutynin Chloride [Ditropan Xl] 15 mg PO DAILY 12/15/16 Linaclotide [Linzess] 72 mcg PO DAILY 01/19/17 Lipase/Protease/Amylase [Kamari Dr 36,000 Units Capsule] 1 each PO TID 01/19/17 Metoprolol Succinate [Toprol XL -] 25 mg PO DAILY #30 tab.sr.24h 02/06/17 Famotidine [Pepcid -] 20 mg PO DAILY #14 tablet 05/07/17 Amlodipine Besylate [Norvasc -] 10 mg PO DAILY 06/27/17 Mirtazapine [Remeron -] 15 mg PO HS 06/27/17 Sucralfate [Carafate -] 1 gm PO QID 06/27/17 Family Disease History - Family Disease History Family History: Denies Review of Systems - Review of Systems Constitutional: reports: No Symptoms Eyes: reports: No Symptoms HENT: reports: No Symptoms Neck: reports: No Symptoms Cardiovascular: reports: Chest Pain Respiratory: reports: No Symptoms Gastrointestinal: reports: Indigestion Genitourinary: reports: No Symptoms Breasts: reports: No Symptoms Reported Musculoskeletal: reports: Joint Pain Integumentary: reports: No Symptoms Neurological: reports: No Symptoms Endocrine: reports: No Symptoms Hematology/Lymphatic: reports: No Symptoms Psychiatric: reports: Anxiety, Depression - Risk Factors Known Risk Factors: Yes: Age, Hypertension Vital Signs: Vital Signs Temperature 98.8 F 07/06/17 16:54 Pulse Rate 78 07/06/17 16:54 Respiratory Rate 18 07/06/17 16:54 Blood Pressure 123/65 07/06/17 16:54 O2 Sat by Pulse Oximetry (%) 98 07/06/17 14:30 Constitutional: Yes: Anxious, Mild Distress Eyes: Yes: WNL HENT: Yes: WNL Neck: Yes: WNL Respiratory: Yes: WNL Gastrointestinal: Yes: Soft Renal/: No: Anuria Cardiovascular: Yes: WNL JVD: No Carotid Bruit: No PMI: Non-Displaced Heart Sounds: Yes: S1, S2 Murmur: Yes: Systolic Murmur, Grade 1 Musculoskeletal: Yes: Joint Stiffness Extremities: Yes: WNL Edema: No Peripheral Pulses WNL: Yes Integumentary: Yes: WNL Neurological: Yes: WNL Psychiatric: Yes: Alert, Oriented, Other - Other Data Labs, Other Data: CBC, BMP 07/06/17 05:56 07/06/17 05:56 INR, PTT INR 1.06 (0.82-1.09) 07/05/17 12:58 Troponin, BNP 07/05/17 07/06/17 07/06/17 20:05 00:35 00:35 Troponin I < 0.03 Cancelled < 0.03 Troponin, BNP 07/05/17 07/06/17 07/06/17 20:05 00:35 00:35 Troponin I < 0.03 Cancelled < 0.03 Imaging - Results EKG: Image Reviewed (normal sinus rhythm; normal study) Problem List - Problems (1) Atypical chest pain Assessment/Plan: Multiple previous admissions for chest pain, which occur at rest, and especially when anxious. F/u TNI serially (1st is <0.02) Recent stress MIBI negative for ischemia. Control risk factors for CAD. Anxiety/panic is a major component of pt's discomfort. Code(s): R07.89 - OTHER CHEST PAIN (2) Abdominal pain Code(s): R10.9 - UNSPECIFIED ABDOMINAL PAIN (3) Acid reflux disease with ulcer Assessment/Plan: f/u with GI Code(s): K21.9 - GASTRO-ESOPHAGEAL REFLUX DISEASE WITHOUT ESOPHAGITIS (4) Anxiety Assessment/Plan: Pt to be seen by psychiatrist and psychologist. Code(s): F41.9 - ANXIETY DISORDER, UNSPECIFIED
--- NOTE | 2017-07-06 17:07 | PN ---
Physical Exam: SUBJECTIVE: Patient seen and examined at bedside. No acute events overnight. States that her chest pain and headache have improved. Otherwise, no fever, chills, SOB, or changes in urinary or bowel function. OBJECTIVE: Vital Signs Period Temp Pulse Resp BP Sys/Christensen Pulse Ox Last 24 Hr 97.6 F-98.8 F 68-84 16-18 104-142/56-79 95-98 GENERAL: The patient is awake, alert, and fully oriented, in no acute distress. HEAD: Normal with no signs of trauma. EYES: PERRL, extraocular movements intact, sclera anicteric, conjunctiva clear. No ptosis. ENT: Ears normal, nares patent, oropharynx clear without exudates, moist mucous membranes. NECK: Trachea midline, full range of motion, supple. LUNGS: Breath sounds equal, clear to auscultation bilaterally, no wheezes, no crackles, no accessory muscle use. +poor inspiratory effort HEART: Regular rate and rhythm, S1, S2 without murmur, rub or gallop. ABDOMEN: Soft, nontender, nondistended, normoactive bowel sounds, no guarding EXTREMITIES: 2+ dp, pt pulses, warm, well-perfused, no edema. NEUROLOGICAL: Cranial nerves II through XII grossly intact. PSYCH: Calm today SKIN: Warm, dry, normal turgor Laboratory Results - last 24 hr 07/06/17 07/06/17 05:56 05:56 WBC 5.5 RBC 4.48 Hgb 11.1 Hct 34.8 MCV 77.6 L MCH 24.7 L MCHC 31.9 L RDW 19.3 H Plt Count 359 MPV 7.1 L Neutrophils % 67.2 Lymphocytes % 20.4 Monocytes % 10.6 H Eosinophils % 1.2 Basophils % 0.6 Nucleated RBC % 0 Sodium 135 L Potassium 4.4 Chloride 100 Carbon Dioxide 27 Anion Gap 8 BUN 11 Creatinine 0.7 Random Glucose 106 Calcium 8.8 Phosphorus 4.0 Magnesium 2.3 Troponin I Troponin trend 07/05/17 07/05/17 12:58 20:05 Troponin I < 0.02 < 0.03 Active Medications Generic Name Dose Route Start Last Admin Trade Name Freq PRN Reason Stop Dose Admin Amlodipine Besylate 10 mg 07/05/17 18:00 07/06/17 11:41 Norvasc - PO 10 mg DAILY KATHERINE Administration Divalproex Sodium 500 mg 07/05/17 22:00 07/06/17 11:41 Depakote - PO 500 mg BID KATHERINE Administration Escitalopram Oxalate 10 mg 07/05/17 18:00 07/06/17 11:41 Lexapro - PO 10 mg DAILY KATHERINE Administration Heparin Sodium (Porcine) 5,000 unit 07/05/17 22:00 07/06/17 16:22 Heparin - SQ 5,000 unit TID KATHERINE Administration Metoprolol Succinate 25 mg 07/05/17 18:00 07/06/17 11:42 Toprol Xl - PO 25 mg DAILY KATHERINE Administration Mirtazapine 15 mg 07/05/17 22:00 07/05/17 23:22 Remeron - PO 15 mg HS KATHERINE Administration Pancrelipase 1 cap 07/06/17 08:00 07/06/17 16:[address] 36,000 Units Capsule PO Not Given TIDCM KATHERINE Pantoprazole Sodium 40 mg 07/05/17 18:15 07/06/17 11:42 Protonix Iv IVPUSH 40 mg DAILY KATHERINE Administration Polyethylene Glycol 17 gm 07/05/17 18:30 07/06/17 11:41 Miralax (For Daily Use) - PO Not Given DAILY KATHERINE Quetiapine Fumarate 25 mg 07/05/17 18:00 07/06/17 11:42 Seroquel - PO 25 mg DAILY KATHERINE Administration Solifenacin 10 mg 07/05/17 18:00 07/06/17 11:42 Vesicare - PO 10 mg DAILY KATHERINE Administration Sucralfate 1 gm 07/05/17 18:00 07/06/17 16:22 Carafate - PO 1 gm QID KATHERINE Administration TESTING 07/05/17 CXR: the cardiac silhouette there are mild bilateral increased lung markings without evidence of focal infiltrates. mediastinum and visualized osseus structures appear grossly intact. 07/05/17 EKG- NSR 85bpm, no st elevations or depressions ASSESSMENT/PLAN: 71 y/o F with PMH HTN, HLD, hx gastric ulcer, asthma, brain tumor s/p resection , s/p cholecystectomy, anxiety, recent ED visit for chest pain 07/03 (- trops), normal stress test May 2017, ECHO WNL January 2017, Holter without significant events 01/29, who presents to the ED c/o chest pain for the past three days, that was worsened last night. #Chest pain likely 2/2 stress, anxiety -with hx normal ECHO, stress test recent past -initial trop (-), continue to trend q6h, serial EKGs -telemetry monitoring -F/u recs of cardio consult- Dr. Vargas; sees as outpatient #Depression -fulfills depression criteria SIGECAPS 06/21 -no need for 1:1 at this time, no harm with hurting self -F/u psychology consult - Dr. Amaya; if cause addressed should aid sx -F/u psychiatry consult- d/w Dr. Ibrahim, will be seen #HTN- controlled -Continue metoprolol succinate 25mg PO qd -norvasc 10mg PO qd #HLD -Currently is not on a statin #hx gastric ulcer -will hold pepcid 20mg PO qd -started on protonix 40mg IVP qd -possible pt's midepigastric discomfort is 2/2 reflux #asthma -currently controlled -not in exacerbation, without SOB -if needed can add ventolin q4h PRN #constipation -starting on miralax 17gm PO qd #h/o seizure disorder -depakote 500mg PO BID #F/E/N -encourage PO intake -continue to follow lytes -sodium controlled diet #PPX Hep 5000 SQ TID #Dispo tele obs Visit type - Emergency Visit Emergency Visit: No - New Patient This patient is new to me today: No - Critical Care Critical Care patient: No
--- NOTE | 2017-07-06 17:30 | PN ---
Teaching Attending Note Name of Resident: Viv Shah ATTENDING PHYSICIAN STATEMENT I saw and evaluated the patient. I reviewed the resident's note and discussed the case with the resident. I agree with the resident's findings and plan as documented. SUBJECTIVE: Patient says she feels better today. She reports having occasional chest pain. OBJECTIVE: Vital Signs Period Temp Pulse Resp BP Sys/Christensen Pulse Ox Last 24 Hr 97.6 F-98.8 F 68-80 16-18 104-137/56-79 95-98 HEART: S1S2, RRR LUNGS: Clear ABDOMEN: Obese, soft, non-tender, non-distended, normal BS EXTREMITIES: No edema Laboratory Results - last 24 hr 07/05/17 07/06/17 07/06/17 20:05 00:35 00:35 WBC RBC Hgb Hct MCV MCH MCHC RDW Plt Count MPV Neutrophils % Lymphocytes % Monocytes % Eosinophils % Basophils % Nucleated RBC % Sodium Potassium Chloride Carbon Dioxide Anion Gap BUN Creatinine Random Glucose Calcium Phosphorus Magnesium Troponin I < 0.03 Cancelled < 0.03 07/06/17 07/06/17 05:56 05:56 WBC 5.5 RBC 4.48 Hgb 11.1 Hct 34.8 MCV 77.6 L MCH 24.7 L MCHC 31.9 L RDW 19.3 H Plt Count 359 MPV 7.1 L Neutrophils % 67.2 Lymphocytes % 20.4 Monocytes % 10.6 H Eosinophils % 1.2 Basophils % 0.6 Nucleated RBC % 0 Sodium 135 L Potassium 4.4 Chloride 100 Carbon Dioxide 27 Anion Gap 8 BUN 11 Creatinine 0.7 Random Glucose 106 Calcium 8.8 Phosphorus 4.0 Magnesium 2.3 Troponin I Current Medications Generic Name Dose Route Start Last Admin Trade Name Freq PRN Reason Stop Dose Admin Amlodipine Besylate 10 mg 07/05/17 18:00 07/06/17 11:41 Norvasc - PO 10 mg DAILY KATHERINE Administration Divalproex Sodium 500 mg 07/05/17 22:00 07/06/17 11:41 Depakote - PO 500 mg BID KATHERINE Administration Escitalopram Oxalate 10 mg 07/05/17 18:00 07/06/17 11:41 Lexapro - PO 10 mg DAILY KATHERINE Administration Heparin Sodium (Porcine) 5,000 unit 07/05/17 22:00 07/06/17 16:22 Heparin - SQ 5,000 unit TID KATHERINE Administration Metoprolol Succinate 25 mg 07/05/17 18:00 07/06/17 11:42 Toprol Xl - PO 25 mg DAILY KATHERINE Administration Mirtazapine 15 mg 07/05/17 22:00 07/05/17 23:22 Remeron - PO 15 mg HS KATHERINE Administration Pancrelipase 1 cap 07/06/17 08:00 07/06/17 16:[address] 36,000 Units Capsule PO Not Given TIDCM KATHERINE Pantoprazole Sodium 40 mg 07/05/17 18:15 07/06/17 11:42 Protonix Iv IVPUSH 40 mg DAILY KATHERINE Administration Polyethylene Glycol 17 gm 07/05/17 18:30 07/06/17 11:41 Miralax (For Daily Use) - PO Not Given DAILY KATHERINE Quetiapine Fumarate 25 mg 07/05/17 18:00 07/06/17 11:42 Seroquel - PO 25 mg DAILY KATHERINE Administration Solifenacin 10 mg 07/05/17 18:00 07/06/17 11:42 Vesicare - PO 10 mg DAILY KATHERINE Administration Sucralfate 1 gm 07/05/17 18:00 07/06/17 16:22 Carafate - PO 1 gm QID KATHERINE Administration ASSESSMENT AND PLAN: This is a 71 year old woman with a history of HTN, hyperlipidemia, seizure disorder, gastric ulcer, asthma, brain tumor and resection, cholecystectomy, anxiety who presented to the ED with chest pain x 3 days. 1. Atypical chest pain - Unlikely to be cardiac, more likely related to stress, anxiety, and depression - Troponin negative x 3 - Cardiology, psychiatry evaluations 2. HTN - Continue Norvsac, Toprol XL 3. Hyperlipidemia 4. Depression with anxiety - Continue Lexapro, Seroquel, Remeron 5. Asthma - Stable 6. Seizure disorder - Continue Depakote 7. History of gastric ulcer - Continue Protonix, Carafate 8. Obesity with BMI 30.8
[2017-07-06] MEDS ORDERED: MIRTAZAPINE 15 MG TABLET (FP) PO SCH (22:00)
[2017-07-07] MEDS: HEPARIN NA (PORCINE) 5,000 UNITS/ML 1ML VIAL SQ SCH ×2 (05:54→14:56)
[2017-07-07] MEDS ORDERED: PT OWN MED DRAWER 7, Y5N ONE ×5 (08:22→16:59)
[2017-07-07] MEDS: LIPASE/PROTEASE/AMYLASE 36,000 UNIT CAPSULE PO SCH ×3 (08:29→17:04)
[2017-07-07] MEDS ORDERED: QUEtiapine FUMARATE 25 MG TABLET (FP) PO SCH (10:00)
[2017-07-07] MEDS ORDERED: ESCITALOPRAM OXALATE 10 MG TABLET (FP) PO SCH (10:00)
[2017-07-07] MEDS ORDERED: metoPROLOL SUCCINATE 25 MG TAB.SR.24H (FP) PO SCH (10:00)
[2017-07-07] MEDS ORDERED: SOLIFENACIN SUCCINATE 5 MG TAB (FP) PO SCH (10:00)
[2017-07-07] MEDS ORDERED: PANTOPRAZOLE SODIUM 40 MG VIAL IVPUSH SCH (10:00)
[2017-07-07] MEDS ORDERED: POLYETHYLENE GLYCOL 3350 119 GM BTL PO SCH (10:00)
[2017-07-07] MEDS ORDERED: amLODIPine BESYLATE 10 MG TABLET (FP) PO SCH (10:00)
[2017-07-07] MEDS: SUCRALFATE 1 GM TABLET (FP) PO SCH ×3 (10:26→17:03)
[2017-07-07] MEDS: DIVALPROEX SODIUM 500 MG TABLET E.C. PO SCH (10:26)
[2017-07-07] MEDS ORDERED: PANTOPRAZOLE 40 MG TABLET (FP) PO SCH (10:45)
--- NOTE | 2017-07-07 11:35 | PN ---
Progress Note, Physician History of Present Illness: The patient is a 71 year old female, with a significant past medical history of hypertension, hyperlipidemia,hx gastric ulcer, asthma, brain tumor s/p resection , s/p cholecystectomy, anxiety, and recent ED visit for chest pain (07/03/17), who presents to the emergency department with chest pain since last night. Per aide, patient was unable to sleep last night secondary to chest pain. Patient reports associated headache and decreased appetite, but denies any fever, chills , cough, or dizziness. She denies any shortness of breath, diaphoresis, or palpitations. Patient reports taking Tylenol for her symptoms with minimal relief. She reports some nausea, but denies any abdominal pain, vomiting, diarrhea, or constipation. Patient has multiple visits to our ED and [facility] for chest pain, for which she was sent for outpatient Cardiology evaluation. Patient had a holter monitor(02/05/17) and a stress test in May of 2017(all which were negative). No recent exacerbating factors. Per aide, patient has not been compliant with her medications lately. - Current Medication List Current Medications: Active Medications Amlodipine Besylate (Norvasc -) 10 mg PO DAILY [facility] Last Admin: 07/07/17 10:26 Dose: 10 mg Divalproex Sodium (Depakote -) 500 mg PO BID [facility] Last Admin: 07/07/17 10:26 Dose: 500 mg Escitalopram Oxalate (Lexapro -) 10 mg PO DAILY [facility] Last Admin: 07/07/17 10:26 Dose: 10 mg Heparin Sodium (Porcine) (Heparin -) 5,000 unit SQ TID [facility] Last Admin: 07/07/17 05:54 Dose: 5,000 unit Metoprolol Succinate (Toprol Xl -) 25 mg PO DAILY [facility] Last Admin: 07/07/17 10:26 Dose: 25 mg Mirtazapine (Remeron -) 15 mg PO HS [facility] Last Admin: 07/06/17 21:02 Dose: 15 mg Pancrelipase (Creon Dr 36,000 Units Capsule) 1 cap PO TIDCM [facility] Last Admin: 07/07/17 08:29 Dose: 1 cap Pantoprazole Sodium (Protonix -) 40 mg PO DAILY [facility] Polyethylene Glycol (Miralax (For Daily Use) -) 17 gm PO DAILY [facility] Quetiapine Fumarate (Seroquel -) 25 mg PO DAILY [facility] Last Admin: 07/07/17 10:26 Dose: Not Given Solifenacin (Vesicare -) 10 mg PO DAILY [facility] Last Admin: 07/07/17 10:26 Dose: 10 mg Sucralfate (Carafate -) 1 gm PO QID [facility] Last Admin: 07/07/17 10:26 Dose: 1 gm - Objective Vital Signs: Vital Signs Temperature 99.0 F 07/07/17 09:00 Pulse Rate 80 07/07/17 09:00 Respiratory Rate 20 07/07/17 09:00 Blood Pressure 135/65 07/07/17 09:00 O2 Sat by Pulse Oximetry (%) 98 07/07/17 09:00 Labs: CBC, BMP 07/06/17 05:56 07/06/17 05:56 INR, PTT INR 1.06 (0.82-1.09) 07/05/17 12:58 Assessment/Plan - Problems (1) Atypical chest pain Assessment/Plan: Multiple previous admissions for chest pain, which occur at rest, and especially when anxious. Recent stress MIBI negative for ischemia. Control risk factors for CAD. Anxiety/panic is a major component of pt's discomfort. Code(s): R07.89 - OTHER CHEST PAIN (2) Abdominal pain Code(s): R10.9 - UNSPECIFIED ABDOMINAL PAIN (3) Acid reflux disease with ulcer Assessment/Plan: f/u with GI Code(s): K21.9 - GASTRO-ESOPHAGEAL REFLUX DISEASE WITHOUT ESOPHAGITIS (4) Anxiety Assessment/Plan: Pt to be seen by psychiatrist and psychologist. Code(s): F41.9 - ANXIETY DISORDER, UNSPECIFIED
--- NOTE | 2017-07-07 12:16 | PN ---
Progress Note, Physician History of Present Illness: The patient is a 71 year old female, with a significant past medical history of hypertension, hyperlipidemia,hx gastric ulcer, asthma, brain tumor s/p resection , s/p cholecystectomy, anxiety, and recent ED visit for chest pain (07/03/17), who presents to the emergency department with chest pain since last night. Per aide, patient was unable to sleep last night secondary to chest pain. Patient reports associated headache and decreased appetite, but denies any fever, chills , cough, or dizziness. She denies any shortness of breath, diaphoresis, or palpitations. Patient reports taking Tylenol for her symptoms with minimal relief. She reports some nausea, but denies any abdominal pain, vomiting, diarrhea, or constipation. Patient has multiple visits to our ED and [facility] for chest pain, for which she was sent for outpatient Cardiology evaluation. Patient had a holter monitor(02/05/17) and a stress test in May of 2017(all which were negative). No recent exacerbating factors. Per aide, patient has not been compliant with her medications lately. - Current Medication List Current Medications: Active Medications Amlodipine Besylate (Norvasc -) 10 mg PO DAILY [facility] Last Admin: 07/07/17 10:26 Dose: 10 mg Divalproex Sodium (Depakote -) 500 mg PO BID [facility] Last Admin: 07/07/17 10:26 Dose: 500 mg Escitalopram Oxalate (Lexapro -) 10 mg PO DAILY [facility] Last Admin: 07/07/17 10:26 Dose: 10 mg Heparin Sodium (Porcine) (Heparin -) 5,000 unit SQ TID [facility] Last Admin: 07/07/17 05:54 Dose: 5,000 unit Metoprolol Succinate (Toprol Xl -) 25 mg PO DAILY [facility] Last Admin: 07/07/17 10:26 Dose: 25 mg Mirtazapine (Remeron -) 15 mg PO HS [facility] Last Admin: 07/06/17 21:02 Dose: 15 mg Pancrelipase (Creon Dr 36,000 Units Capsule) 1 cap PO TIDCM [facility] Last Admin: 07/07/17 11:35 Dose: 1 cap Pantoprazole Sodium (Protonix -) 40 mg PO DAILY [facility] Last Admin: 07/07/17 11:35 Dose: 40 mg Polyethylene Glycol (Miralax (For Daily Use) -) 17 gm PO DAILY [facility] Last Admin: 07/07/17 11:35 Dose: 17 grams Quetiapine Fumarate (Seroquel -) 25 mg PO DAILY [facility] Last Admin: 07/07/17 10:26 Dose: Not Given Solifenacin (Vesicare -) 10 mg PO DAILY [facility] Last Admin: 07/07/17 10:26 Dose: 10 mg Sucralfate (Carafate -) 1 gm PO QID [facility] Last Admin: 07/07/17 10:26 Dose: 1 gm - Objective Vital Signs: Vital Signs Temperature 99.0 F 07/07/17 09:00 Pulse Rate 80 07/07/17 09:00 Respiratory Rate 20 07/07/17 09:00 Blood Pressure 135/65 07/07/17 09:00 O2 Sat by Pulse Oximetry (%) 98 07/07/17 09:00 Eyes: Yes: WNL, Conjunctiva Clear, EOM Intact HENT: Yes: WNL, Atraumatic, Normocephalic Neck: Yes: WNL, Supple, Trachea Midline Cardiovascular: Yes: WNL, Regular Rate and Rhythm Respiratory: Yes: WNL, Regular, CTA Bilaterally Gastrointestinal: Yes: WNL, Normal Bowel Sounds Genitourinary: Yes: WNL Musculoskeletal: Yes: WNL Extremities: Yes: WNL Edema: No Integumentary: Yes: WNL Neurological: Yes: WNL, Alert, Oriented ...Motor Strength: WNL Psychiatric: Yes: WNL Labs: CBC, BMP 07/06/17 05:56 07/06/17 05:56 INR, PTT INR 1.06 (0.82-1.09) 07/05/17 12:58
--- NOTE | 2017-07-07 13:16 | HOSP ---
Subjective - Review of Symptoms Cardiovascular: Yes: Chest Pain Musculoskeletal: Yes: No Symptoms Physical Examination Vital Signs: Vital Signs Temperature 99.0 F 07/07/17 09:00 Pulse Rate 71 07/07/17 12:28 Respiratory Rate 20 07/07/17 12:28 Blood Pressure 136/74 07/07/17 12:28 O2 Sat by Pulse Oximetry (%) 98 07/07/17 09:00 Constitutional: Yes: Well Nourished, Anxious Eyes: Yes: WNL HENT: Yes: Normocephalic Neck: Yes: WNL Cardiovascular: Yes: Regular Rate and Rhythm Respiratory: Yes: WNL Gastrointestinal: Yes: WNL Edema: No Labs: CBC, BMP 07/06/17 05:56 07/06/17 05:56 Hospitalist Encounter Assessment: Called by nurse to assess patient this afternoon ~12:30pm as c/o chest pain. When entered pt's room, she was on the phone and watching television. As information was gathered concerning pt's condition, she c/o increasing chest pain, with fast speech appearing anxious. No significant findings on exam - S1, S2 RRR, no r/m/g. Radial, pt pulses 2+. Non-reproducible pain. States that she developed chest pain after BM. Has been evaluated by cardiology thus far, with trops (-) x 3, recent normal ECHO, stress test. Pain is decreased when pt more calm. stat EKG, trop ordered- will follow Thank you Viv Shah MD PGY-1 Floor team Visit type - Emergency Visit Emergency Visit: No - New Patient This patient is new to me today: No - Critical Care Critical Care patient: No
[2017-07-07 13:47] VITALS: BMI 30.7
--- NOTE | 2017-07-07 14:05 | CON.PSY ---
Psychiatry Consult Chief Complaint: 71 year old female frequent visitor to Er admitted for acute chest pain> Patient is being treated for anxiety and depression. Is on Lexapro, Remeron and depakote from Dr. Petty. Symptoms: reports: Anxiety - Previous Psychiatric Treatment Outpatient: Less than 6 mos ago Inpatient: None - Previous Substance Abuse Treatment Outpatient: None - Reason for Previous Treatment Reason for Previous Treatment: Major Depression, Anxiety or Panic Disorder - Current Medications Current Medications: Active Medications Amlodipine Besylate (Norvasc -) 10 mg PO DAILY [facility] Last Admin: 07/07/17 10:26 Dose: 10 mg Divalproex Sodium (Depakote -) 500 mg PO BID [facility] Last Admin: 07/07/17 10:26 Dose: 500 mg Escitalopram Oxalate (Lexapro -) 10 mg PO DAILY [facility] Last Admin: 07/07/17 10:26 Dose: 10 mg Heparin Sodium (Porcine) (Heparin -) 5,000 unit SQ TID [facility] Last Admin: 07/07/17 05:54 Dose: 5,000 unit Metoprolol Succinate (Toprol Xl -) 25 mg PO DAILY [facility] Last Admin: 07/07/17 10:26 Dose: 25 mg Mirtazapine (Remeron -) 15 mg PO HS [facility] Last Admin: 07/06/17 21:02 Dose: 15 mg Pancrelipase (Creon Dr 36,000 Units Capsule) 1 cap PO TIDCM [facility] Last Admin: 07/07/17 11:35 Dose: 1 cap Pantoprazole Sodium (Protonix -) 40 mg PO DAILY [facility] Last Admin: 07/07/17 11:35 Dose: 40 mg Polyethylene Glycol (Miralax (For Daily Use) -) 17 gm PO DAILY [facility] Last Admin: 07/07/17 11:35 Dose: 17 grams Solifenacin (Vesicare -) 10 mg PO DAILY [facility] Last Admin: 07/07/17 10:26 Dose: 10 mg Sucralfate (Carafate -) 1 gm PO QID [facility] Last Admin: 07/07/17 10:26 Dose: 1 gm - Allergies Allergies: Allergies Allergy/AdvReac Type Severity Reaction Status Date / Time aspirin Allergy Severe "NERVOUS" Verified 07/05/17 10:39 morphine Allergy Severe "ANXIETY-DE Verified 07/05/17 10:39 SPERATION" - Current Living Status Usual Living Arrangement: Alone - Current Mental Status Evaluation Appearance: Disheveled Attitude: Cooperative - Affect Affect: Constrictive Appropriateness: Appropriate to Content - Mood Mood: Anxious - Speech/Language Expressive: Coherent - Psychomotor Activity Psychomotor Activity: Normal - Thought Process Thought Process: Intact - Thought Content Hallucinations: Absent Delusions: Absent - Self Perception Self Perception: No Impairment - Cognition Attention: Alert Orientation: Time Memory, Immediate Recall: Intact Memory, Short Term: 2/3 Memory, Remote with Promptin/3 - Concentration Serial Sevens Intact: No Simple Calculations Intact: No - Abstraction Proverb Interpretation: Intact Judgement: Minimally Impaired - Insight Insight: Intact - Impulse Control Impulse Control: Minimally Impaired - Suicidal Ideation Suicidal Ideation: No - Homicidal Ideation Homicidal Ideation: No Assessment/Plan 1) continue with Lexapro, Remeron and Depakote. No need for Seroquel. 2) She is being seen at [facility], She will follow up with them. 3) Discharge when medically stable.
[2017-07-07 14:09] VITALS: BP 139/73; PULSE 76; TEMP 99.1
[2017-07-07] MEDS ORDERED: ACETAMINOPHEN 500 MG TABLET (FP) PO ONE (17:00)
--- NOTE | 2017-07-07 17:47 | DS ---
Physical Exam: SUBJECTIVE: Patient seen and examined at bedside. No acute events overnight. Today, pt emotional. Evaluated for chest pain, however likely brought on by anxiety. During rounds, in good spirits. Denies GALLARDO, fever, chills, SOB, or changes in urinary or bowel function. OBJECTIVE: Vital Signs Period Temp Pulse Resp BP Sys/Christensen Pulse Ox Last 24 Hr 98.2 F-99.1 F 70-80 18-20 125-145/58-74 98-98 PHYSICAL EXAM GENERAL: The patient is resting in bed. awake, alert, and fully oriented, in no acute distress. HEAD: Normal with no signs of trauma. EYES: PERRL, extraocular movements intact, sclera anicteric, conjunctiva clear. ENT: Ears normal, nares patent, oropharynx clear without exudates, moist mucous membranes. TEETH: +poor dentition NECK: Trachea midline, supple. LUNGS: Breath sounds equal, clear to auscultation bilaterally, no wheezes, no crackles, no accessory muscle use. HEART: Regular rate and rhythm, S1, S2 without murmur, rub or gallop. ABDOMEN: Soft, nontender, nondistended, normoactive bowel sounds, no guarding, no rebound, no hepatosplenomegaly, no masses. EXTREMITIES: 2+ dp, pt pulses, warm, well-perfused, no edema. NEUROLOGICAL: Cranial nerves II through XII grossly intact. PSYCH: Normal mood, normal affect. SKIN: Warm, dry, normal turgor LABS 07/05/17 07/05/17 07/06/17 12:58 20:05 05:56 WBC 5.5 Hgb 11.1 Hct 34.8 Plt Count 359 Troponin I < 0.02 < 0.03 07/06/17 07/07/17 05:56 12:50 Plt Count Sodium 135 L Potassium 4.4 Chloride 100 BUN 11 Creatinine 0.7 Calcium 8.8 Magnesium 2.3 Troponin I < 0.02 TESTING 07/05/17 CXR: the cardiac silhouette there are mild bilateral increased lung markings without evidence of focal infiltrates. mediastinum and visualized osseus structures appear grossly intact. 07/05/17 EKG- NSR 85bpm, no st elevations or depressions HOSPITAL COURSE: Date of Admission:07/05/17 Date of Discharge: 07/07/17 Admit diagnosis: chest pain r/o ACS 71 y/o F with PMH HTN, HLD, hx gastric ulcer, asthma, brain tumor s/p resection , s/p cholecystectomy, anxiety, recent ED visit for chest pain 07/03 (- trops), normal stress test May 2017, ECHO WNL January 2017, Holter without significant events 01/29, who presents to the ED c/o chest pain for the past three days, that was worsened last night. As per pt, three days prior, she developed mid-sternal L sided, constant, 7/10 chest pain. It was non-radiating, with no alleviating fx. She tried to use Vicks rub for her symptoms, however was unsuccessful. Pt was supposed to see Dr. Vargas (her cardio) for an appointment on day of admission, however decided to come to the ED. Pt's sx are worsened by stress and emotion. She has felt very sad lately when she thinks about her daughter who six years ago. Pt also endorses decreased sleep, loss of interest in activities once enjoyed, loss of energy and decreased concentration. During this time, she also has had a global, diffuse GALLARDO and non-specific epigastric pain. She is admitted for chest pain, r/o ACS. While pt was in the hospital, her trops were negative x3 and EKG did not show ST depressions or elevations. She was monitored closely, and evaluated by the medicine and psychiatry teams. Also cleared by cardiology. She has had recent ECHO and stress tests that were WNL. It was likely that her symptoms were emotionally provoked. The team and social media specialist explained and spoke to her at great lengths about this. She will continue to follow up at [facility]. Minutes to complete discharge: 44 Discharge Summary Reason For Visit: ATYPICAL CHEST PAIN Current Active Problems Atypical chest pain (Acute) Headache (Acute) Condition: Stable - Instructions Diet, Activity, Other Instructions: You were in the hospital because you had chest pain. While you were here, you had a full-work up done. You were seen by a heart doctor as well as a psychiatrist, and the medicine team. Your cardiac enzymes were checked and were negative. It is likely that your chest pain is made worse by emotion. You may continue your home medications. You will also continue on Lexapro, Remeron and Depakote. Do not take Seroquel. We are referring you to [facility] that will have therapists that will be able to help you. Please call Dr. Morgan on Monday to follow-up. Recommendations from the Resource Efficiency Manager: -F/U THERAPY AND PSYCH AT [facility]. - REFERRAL HAS BEEN MADE TO "[facility] AT [address] [place] [address] UNDER [facility] [place] [facility]: PHONE NUMBER [phone] -NAME OF SALES REPRESENTATIVE GIRLS' APPAREL: CARLOS -MEDICAL EVALUATION PAPERS HAVE BEEN FAXED OVER THAT MUST BE COMPLETED BY DR. MORGAN -THEY HAVE FAXED DOCUMENTS TO MD OFFICE FAX NUMBER [phone], PHONE [phone], DOCUMENTS MUST BE COMPLETED PRIOR TO ACCEPTANCE AT THE DAY PROGRAM -SENIOR TECHNICAL WRITER HAS MADE A COPY OF DOCUMENTS AND GAVE HER A COPY IN CASE -SHE SHOULD F/U WITH DR. MABRY AND WITH THERAPIST, MRS. HORNE NEXT WEEK -SHE WILL GET [employer] 7 DAYS A WEEK FROM 9AM TO 5 PM, FROM [facility]. PHONE # If you develop chest pain, or shortness of breath, please go to the hospital. We hope you feel better soon. Referrals: Waldo Mabry MD [Primary Care Provider] - 1 Week Disposition: HOME - Home Medications Comprehensive Discharge Medication List: Ambulatory Orders Escitalopram Oxalate [Lexapro -] 10 mg PO DAILY 03/10/16 Divalproex [Depakote -] 500 mg PO BID 12/15/16 Oxybutynin Chloride [Ditropan Xl] 15 mg PO DAILY 12/15/16 Linaclotide [Linzess] 72 mcg PO DAILY 01/19/17 Lipase/Protease/Amylase [Kamari Nazario 36,000 Units Capsule] 1 each PO TID 01/19/17 Metoprolol Succinate [Toprol XL -] 25 mg PO DAILY #30 tab.sr.24h 02/06/17 Famotidine [Pepcid -] 20 mg PO DAILY #14 tablet 05/07/17 Amlodipine Besylate [Norvasc -] 10 mg PO DAILY 06/27/17 Mirtazapine [Remeron -] 15 mg PO HS 06/27/17 Sucralfate [Carafate -] 1 gm PO QID 06/27/17 This patient is new to me today: No Emergency Visit: No Critical Care patient: No - Discharge Referral [facility]erred to [facility] Med [facility] No
--- NOTE | 2017-07-07 18:09 | PN ---
Teaching Attending Note Name of Resident: Viv Shah ATTENDING PHYSICIAN STATEMENT I saw and evaluated the patient. I reviewed the resident's note and discussed the case with the resident. I agree with the resident's findings and plan as documented. SUBJECTIVE: No complaints. She has intermittent chest pain when she thinks about her daughter who she says from a heart condition 6 years ago. She says that no one has ever explained to her that her chest pain is not heart related. OBJECTIVE: Vital Signs Period Temp Pulse Resp BP Sys/Christensen Pulse Ox Last 24 Hr 98.2 F-99.1 F 70-80 18-20 125-145/58-74 98-98 HEART: S1S2, RRR LUNGS: Clear ABDOMEN: Obese, soft, non-tender, non-distended, normal BS EXTREMITIES: No edema Laboratory Results - last 24 hr 07/07/17 12:50 Troponin I < 0.02 Current Medications Generic Name Dose Route Start Last Admin Trade Name Freq PRN Reason Stop Dose Admin Amlodipine Besylate 10 mg 07/07/17 10:00 07/07/17 10:26 Norvasc - PO 10 mg DAILY KATHERINE Administration Divalproex Sodium 500 mg 07/06/17 22:00 07/07/17 10:26 Depakote - PO 500 mg BID KATHERINE Administration Escitalopram Oxalate 10 mg 07/07/17 10:00 07/07/17 10:26 Lexapro - PO 10 mg DAILY KATHERINE Administration Heparin Sodium (Porcine) 5,000 unit 07/06/17 22:00 07/07/17 14:56 Heparin - SQ 5,000 unit TID KATHERINE Administration Metoprolol Succinate 25 mg 07/07/17 10:00 07/07/17 10:26 Toprol Xl - PO 25 mg DAILY KATHERINE Administration Mirtazapine 15 mg 07/06/17 22:00 07/06/17 21:02 Remeron - PO 15 mg HS KATHERINE Administration Pancrelipase 1 cap 07/07/17 08:00 07/07/17 17:04 Kamari Nazario 36,000 Units Capsule PO 1 cap TIDCM KATHERINE Administration Pantoprazole Sodium 40 mg 07/07/17 10:45 07/07/17 11:35 Protonix - PO 40 mg DAILY KATHERINE Administration Polyethylene Glycol 17 gm 07/07/17 10:00 07/07/17 11:35 Miralax (For Daily Use) - PO 17 grams DAILY KATHERINE Administration Solifenacin 10 mg 07/07/17 10:00 07/07/17 10:26 Vesicare - PO 10 mg DAILY KATHERINE Administration Sucralfate 1 gm 07/06/17 22:00 07/07/17 17:03 Carafate - PO 1 gm QID KATHERINE Administration ASSESSMENT AND PLAN: This is a 71 year old woman with a history of HTN, hyperlipidemia, seizure disorder, gastric ulcer, asthma, brain tumor and resection, cholecystectomy, anxiety who presented to the ED with chest pain x 3 days. 1. Atypical chest pain - Unlikely to be cardiac, more likely related to stress, anxiety, and depression - had a long discussion with the patient regarding this - Troponin negative x 3 - Had negative stress test 05/17 2. HTN - Continue Norvsac, Toprol XL 3. Hyperlipidemia 4. Depression with anxiety - Continue Lexapro, Remeron, Depakote - Seroquel discontinued 5. Asthma - Stable 6. History of resection of brain tumor, seizure - Continue Depakote 7. History of gastric ulcer - Continue Protonix, Carafate 8. Obesity with BMI 30.7 9. Disposition - Ok for discharge home with follow up at [facility]
--- NOTE | 2017-07-08 08:03 | EKG ---
Test Reason : Blood Pressure : / mmHG Vent. Rate : 071 BPM Atrial Rate : 071 BPM P-R Int : 164 ms QRS Dur : 078 ms QT Int : 404 ms P-R-T Axes : 048 013 027 degrees QTc Int : 439 ms NORMAL SINUS RHYTHM NORMAL ECG WHEN COMPARED WITH ECG OF 05-JUL-2017 10:49, NO SIGNIFICANT CHANGE WAS FOUND Confirmed by ANNITA VENTURA MD ([id number]) on 07/08/2017 8:03:22 AM Referred By: REBEL Confirmed By:ANNITA VENTURA MD
== END 2017-07-07 18:56 | disposition home or self-care (01) ==
LOC: JER 10:34 → JERBED 17:40 → J8W 07-06 16:34
PROVIDERS: ADMIT Internal Medicine; ATTEND Internal Medicine
PROC: 3E033GC Introduction of Other Therapeutic Substance into Peripheral Vein, Percutaneous Approach (ICD-10-PCS; principal; 2017-07-05)
PROC: 3E0337Z Introduction of Electrolytic and Water Balance Substance into Peripheral Vein, Percutaneous Approach (ICD-10-PCS; 2017-07-05)
PROC: 3E013GC Introduction of Other Therapeutic Substance into Subcutaneous Tissue, Percutaneous Approach (ICD-10-PCS; 2017-07-05)
DX: R07.89 Other chest pain (principal); I10 Essential (primary) hypertension; I69.398 Other sequelae of cerebral infarction; E78.5 Hyperlipidemia, unspecified; J45.909 Unspecified asthma, uncomplicated; F41.9 Anxiety disorder, unspecified; F32.9 Major depressive disorder, single episode, unspecified; D64.9 Anemia, unspecified; G40.909 Epilepsy, unspecified, not intractable, without status epilepticus; K21.9 Gastro-esophageal reflux disease without esophagitis; K25.9 Gastric ulcer, unspecified as acute or chronic, without hemorrhage or perforation; K59.00 Constipation, unspecified; N28.9 Disorder of kidney and ureter, unspecified; R10.9 Unspecified abdominal pain; M17.0 Bilateral primary osteoarthritis of knee; E66.9 Obesity, unspecified; Z68.30 Body mass index [BMI] 30.0-30.9, adult; Z96.653 Presence of artificial knee joint, bilateral; Z87.442 Personal history of urinary calculi; Z85.841 Personal history of malignant neoplasm of brain; Z87.11 Personal history of peptic ulcer disease; Z88.6 Allergy status to analgesic agent
CPT/HCPCS: 36415; 71046-TC-FY; 80048; 80053; 82550; 83735; 83880; 84100; 84484; 85025; 85610; 87081; 93005; 93010; 96361; 96372; 96374; 96375; 99285-25; G0378; J1644; J7030

== ENCOUNTER 2017-07-12 17:38 | Emergency (ER) | payer OTHER ==
[2017-07-12 18:04] VITALS: BP 136/67; TEMP 99.4; BMI 33.2
--- NOTE | 2017-07-12 18:05 | PDOC ---
Rapid Medical Evaluation Time Seen by Provider: 07/12/17 18:02 Medical Evaluation: Allergies Allergy/AdvReac Type Severity Reaction Status Date / Time aspirin Allergy Severe "NERVOUS" Verified 07/05/17 10:39 morphine Allergy Severe "ANXIETY-DE Verified 07/05/17 10:39 SPERATION" 07/12/17 18:02 I have performed a brief in-person evaluation of the patient. The patient presents with a chief complaint of : chest pain in mid chest with no nausea, dizziness or shortness of breath. Patient also reports headache and constipation. States seen at [facility] for the same and here last week also. Pertinent physical exam findings. NAD clear lungs bilaterally heart s1s2 I have ordered the following ekg This patient will proceed to the ED for further evaluation.
[2017-07-12 18:38] VITALS: PULSE 76
--- NOTE | 2017-07-12 21:44 | PDOC ---
History of Present Illness - General Chief Complaint: Cold Symptoms Stated Complaint: CHEST PAIN Time Seen by Provider: 07/12/17 18:02 - History of Present Illness Initial Comments: 07/12/17 21:39 71 yo F with h/o COPD, GERD, Seizure disorder, CVA, OA, Anxiety, recurrent ED visits, who p/w left sided chest pain. Patient reports acute on chronic, non radiating, non pleuritic, sharp, left sided supramammary pain above left nipple. Pain worse with touch. No identifiable tirggers. Pain consistent with prior chest pain. Denies F/C, N/V, SOB,cough, orthopnea, PND, diaphoresis, wheezing,leg pain, leg swelling, wheezing, cough, abdominal pain, diarrhea, constipation, urinary complaints, weakness, lightheadedness, sensory changes. Last seen in [facility] (07/05/17) for chest pain with negative workup. Nml Echo and Stress test. Psychiatry evaluated patient on recent admission and advised her to f/u with [facility] for frquent ED visits, anxiety, and depression. PMHx: as noted above ROS: as noted above. Denies SI, HI. SHx: Denies Etoh, tobacco use, IVDA. Past History - Past Medical History Allergies/Adverse Reactions: Allergies Allergy/AdvReac Type Severity Reaction Status Date / Time aspirin Allergy Severe "NERVOUS" Verified 07/05/17 10:39 morphine Allergy Severe "ANXIETY-DE Verified 07/05/17 10:39 SPERATION" Home Medications: Ambulatory Orders Escitalopram Oxalate [Lexapro -] 10 mg PO DAILY 03/10/16 Divalproex [Depakote -] 500 mg PO BID 12/15/16 Oxybutynin Chloride [Ditropan Xl] 15 mg PO DAILY 12/15/16 Linaclotide [Linzess] 72 mcg PO DAILY 01/19/17 Lipase/Protease/Amylase [Kamari Nazario 36,000 Units Capsule] 1 each PO TID 01/19/17 Metoprolol Succinate [Toprol XL -] 25 mg PO DAILY #30 tab.sr.24h 02/06/17 Famotidine [Pepcid -] 20 mg PO DAILY #14 tablet 05/07/17 Amlodipine Besylate [Norvasc -] 10 mg PO DAILY 06/27/17 Mirtazapine [Remeron -] 15 mg PO HS 06/27/17 Sucralfate [Carafate -] 1 gm PO QID 06/27/17 Anemia: Yes Asthma: No Cancer: No Cardiac Disorders: No 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, baseline confusion and dizziness) COPD: No CHF: No DVT: No Dementia: No Diabetes: Yes GI Disorders: Yes (gerd, gastric ulcer, dysphagia) Disorders: Yes (kidney stone in the past) HTN: Yes Hypercholesterolemia: Yes Liver Disease: No Psychiatric Problems: Yes (ANXIETY DEPRESSION) Seizures: Yes (S/P craniotomy for benign tumor - on Depakote for seizure prophylaxis) Thyroid Disease: No - Surgical History Abdominal Surgery: Yes Appendectomy: No Cardiac Surgery: No Cholecystectomy: Yes Lung Surgery: No Neurologic Surgery: Yes (removal left meningioma) Orthopedic Surgery: Yes (Bilateral knee replacement) - Immunization History Td Vaccination: Yes TDAP Vaccination: No Immunization Up to Date: No - Suicide/Smoking/Psychosocial Hx Smoking Status: No Smoking History: Never smoked Have you smoked in the past 12 months: No Number of Cigarettes Smoked Daily: 0 Cigars Per Day: 0 Information on smoking cessation initiated: No Hx Alcohol Use: No Drug/Substance Use Hx: No Substance Use Type: None Hx Substance Use Treatment: No Review of Systems - Review of Systems Comments:: 07/12/17 21:40 GENERAL/CONSTITUTIONAL: No fever or chills. No weakness. HEAD, EYES, EARS, NOSE AND THROAT: No change in vision. No ear pain or discharge. No sore throat. CARDIOVASCULAR: +chest pain. No shortness of breath RESPIRATORY: No cough, wheezing, or hemoptysis. GASTROINTESTINAL: No nausea, vomiting, diarrhea or constipation. GENITOURINARY: No dysuria, frequency, or change in urination. MUSCULOSKELETAL: No joint or muscle swelling or pain. No neck or back pain. SKIN: No rash NEUROLOGIC: No headache, vertigo, loss of consciousness, or change in strength/ sensation. ENDOCRINE: No increased thirst. No abnormal weight change HEMATOLOGIC/LYMPHATIC: No anemia, easy bleeding, or history of blood clots. ALLERGIC/IMMUNOLOGIC: No hives or skin allergy. *Physical Exam - Vital Signs Last Vital Signs Temp Pulse Resp BP Pulse Ox 99.4 F 76 20 136/67 98 07/12/17 17:59 07/12/17 18:34 07/12/17 17:59 07/12/17 17:59 07/12/17 18:34 - Physical Exam Comments: 07/12/17 21:40 GENERAL: Awake, alert, and fully oriented, in no acute distress HEAD: No signs of trauma, normocephalic, atraumatic EYES: PERRLA, EOMI, sclera anicteric, conjunctiva clear ENT: Auricles normal inspection, hearing grossly normal, nares patent, oropharynx clear without exudates. Moist mucosa NECK: Normal ROM, supple, no lymphadenopathy, JVD, or masses LUNGS: No distress, speaks full sentences, clear to auscultation bilaterally HEART: Regular rate and rhythm, normal S1 and S2, no murmurs, rubs or gallops, peripheral pulses normal and equal bilaterally. CHEST: Reproducible left sided supra mammary chest pain. Superior to left nipple. ABDOMEN: Soft, nontender, normoactive bowel sounds. No guarding, no rebound. No masses EXTREMITIES : Normal inspection, Normal range of motion, no edema. No clubbing or cyanosis. SKIN: Warm, Dry, normal turgor, no rashes or lesions noted ED Treatment Course - LABORATORY CBC & Chemistry Diagram: 07/12/17 22:55 07/12/17 22:55 - RADIOLOGY Radiology Studies Ordered: Category Date Time Status CXRPORT [CHEST X-RAY PORTABLE*] [RAD] Stat Radiology 07/12/17 20:11 Ordered Medical Decision Making - Medical Decision Making 07/12/17 23:30 71 yo F with h/o COPD, GERD, Seizure disorder, CVA, OA, Anxiety, recurrent ED visits, who p/w left sided chest pain. VSS, AF, A&OX3. Reporducible left sided supra mammary chest pain. ACS/TX r/o. R/o PNA. Low suspicion PE based on Weils criteria. Pain reproducible. Likely 2/2 MSK related pain. ED Course: CBC: Unremarkable 07/13/17 00:11 CMP: Unremarkable Trop: Neg 07/13/17 01:28 CXR: No acute cardiopulmonary changes EKG: NSR with absent MACHELLE, or STD. Nml interval duration and axis changes. Patient stable for d/c with return precautions. Advised to f/u with PMD. *DC/Admit/Observation/Transfer - Referrals - Patient Instructions Additional Instructions: Please return to the emergency department with any new or worsening symptoms or concerns. Please follow up with your primary care physician within 72 hours. - Post Discharge Activity - Attestations Physician Attestion: 07/12/17 21:41 I attest to the information provided in this note.
[2017-07-12 23:06] LABS: BASO % 0.5 % (0-2.0); EOS % 2.6 % (0-4.5); HEMATOCRIT 32.3 % (32.4-45.2); HEMOGLOBIN 10.3 GM/dL (10.7-15.3); LYMPH % 23.1 % (8-40); MCH 24.4 pg (25.7-33.7); MEAN CELL VOLUME 76.4 fl (80-96); MEAN PLT VOLUME 7.2 fl (7.5-11.1); MONO % 15.2 % (3.8-10.2); NEUT % 58.6 % (42.8-82.8); PLATELET COUNT 299 K/MM3 (134-434); RBC 4.22 M/mm3 (3.60-5.2); RDW 18.6 % (11.6-15.6); WHITE BLOOD COUNT 5.5 K/mm3 (4.0-10.0)
[2017-07-12 23:23] LABS: INR 1.01 (0.82-1.09); PROTHROMBIN TIME (PATIENT) 11.4 SEC (9.7-13.0)
[2017-07-12 23:35] LABS: ALBUMIN 3.5 g/dl (3.4-5.0); ALK PHOS 176 U/L (45-117); ANION GAP 9 (8-16); BILIRUBIN,TOTAL 0.4 mg/dL (0.2-1.0); BLOOD UREA NITROGEN 12 mg/dL (7-18); CHLORIDE 97 mmol/L (98-107); CO2 27 mmol/L (21-32); CREATININE 0.7 mg/dL (0.55-1.02); GLUCOSE,RANDOM 99 mg/dL (74-106); POTASSIUM 4.3 mmol/L (3.5-5.1); SGOT/AST 29 U/L (15-37); SGPT/ALT 27 U/L (12-78); SODIUM 133 mmol/L (136-145); TOT PROT 7.5 g/dl (6.4-8.2)
--- NOTE | 2017-07-13 00:56 | PDOC ---
Attending Attestation - Resident Resident Name: BolivarBoraGonzalo - ED Attending Attestation I have performed the following: I have examined & evaluated the patient, The case was reviewed & discussed with the resident, I agree w/resident's findings & plan, Exceptions are as noted - HPI HPI: 07/13/17 00:55 The patient is a 71 year old female with history of hypertension, anxiety, depression, well known to the ED for complaints of chest pain, who presents to the ED complaining of chest pain. She states pain is the same as prior episodes. She states she experiences intermittent chest pain when she thinks of her daughter who recently . She was admitted to the hospital for chest pain evaluation 07/05/2017, discharged 5 days ago. No acute complaints. No nausea or vomiting. No fever or chills. No LOC. - Physicial Exam PE: 07/13/17 00:55 "GENERAL: Awake, alert, and fully oriented, in no acute distress. HEAD: No signs of trauma EYES: PERRLA, EOMI, sclera anicteric, conjunctiva clear ENT: Auricles normal inspection, hearing grossly normal, nares patent, oropharynx clear without exudates. Moist mucosa NECK: Nontender, no stepoffs, Normal ROM, supple, no lymphadenopathy, JVD, or masses LUNGS: Breath sounds equal, clear to auscultation bilaterally. No wheezes, and no crackles HEART: Regular rate and rhythm, normal S1 and S2, no murmurs, rubs or gallops ABDOMEN: Soft, nontender, normoactive bowel sounds. No guarding, no rebound. No masses EXTREMITIES: Normal range of motion, no edema. No clubbing or cyanosis. No cords, erythema, or tenderness NEUROLOGICAL: Cranial nerves II through XII intact. 5/5 strength and sensation in all extremities, Normal speech, normal gait, normal cerebellar function SKIN: Warm, Dry, normal turgor, no rashes or lesions noted." - Medical Decision Making 07/13/17 00:55 71 F with atypical chest pain, admitted recently with negative work up for same complaint. Pt with no EKG changes, negative trop. Pt is well appearing with normal vitals. - Labs - CXR
== END 2017-07-13 03:06 | disposition home or self-care (01) ==
LOC: JER 17:38
DX: R07.9 Chest pain, unspecified (principal); F41.9 Anxiety disorder, unspecified; M19.90 Unspecified osteoarthritis, unspecified site; Z86.73 Personal history of transient ischemic attack (TIA), and cerebral infarction without residual deficits; J44.9 Chronic obstructive pulmonary disease, unspecified; K21.9 Gastro-esophageal reflux disease without esophagitis
CPT/HCPCS: 36415; 71045-TC-FY; 80053; 82550; 84484; 85025; 85610; 99285-25

== ENCOUNTER 2017-07-14 22:27 | Emergency (ER) | payer OTHER ==
[2017-07-14 22:53] VITALS: BMI 31.2
--- NOTE | 2017-07-15 00:02 | PDOC ---
History of Present Illness - General Chief Complaint: Chest Pain Stated Complaint: CHEST PAIN Time Seen by Provider: 07/14/17 23:37 History Source: Patient, Old Records Exam Limitations: No Limitations - History of Present Illness Initial Comments: 07/15/17 00:02 This 71-year-old woman past medical history of hypertension, hyperlipidemia, COPD and anxiety who presents emergency Department with left sided chest pain for the past "couple of days." Patient is well-known to this emergency department with negative cardiac workups on multiple occasions including 06/17, 06/19, 06/24, 06/26, 06/27, 07/01, 07/03, 07/05, 07/12 of this year. Patient has had negative troponins and normal EKGs on all those visits. Patient states the pain is not different from all of her previous visits. Pain is left sided 08/22 and describes as a pressure radiating to her left shoulder. Patient states she believes this is chest wall muscular pain and does not believe this is cardiac in nature. Patient is also reporting a mild increase in her usual anxiety at this time. She denies fevers, chills, shortness of breath, abdominal bloating, leg swelling. Past History - Past Medical History Allergies/Adverse Reactions: Allergies Allergy/AdvReac Type Severity Reaction Status Date / Time aspirin Allergy Severe "NERVOUS" Verified 07/14/17 22:51 morphine Allergy Severe "ANXIETY-DE Verified 07/14/17 22:51 SPERATION" Home Medications: Ambulatory Orders Escitalopram Oxalate [Lexapro -] 10 mg PO DAILY 03/10/16 Divalproex [Depakote -] 500 mg PO BID 12/15/16 Oxybutynin Chloride [Ditropan Xl] 15 mg PO DAILY 12/15/16 Linaclotide [Linzess] 72 mcg PO DAILY 01/19/17 Lipase/Protease/Amylase [Kamari Nazario 36,000 Units Capsule] 1 each PO TID 01/19/17 Metoprolol Succinate [Toprol XL -] 25 mg PO DAILY #30 tab.sr.24h 02/06/17 Famotidine [Pepcid -] 20 mg PO DAILY #14 tablet 05/07/17 Amlodipine Besylate [Norvasc -] 10 mg PO DAILY 06/27/17 Mirtazapine [Remeron -] 15 mg PO HS 06/27/17 Sucralfate [Carafate -] 1 gm PO QID 06/27/17 Anemia: Yes Asthma: No Cancer: No Cardiac Disorders: No 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, baseline confusion and dizziness) COPD: No CHF: No DVT: No Dementia: No Diabetes: Yes GI Disorders: Yes (gerd, gastric ulcer, dysphagia) Disorders: Yes (kidney stone in the past) HTN: Yes Hypercholesterolemia: Yes Liver Disease: No Psychiatric Problems: Yes (ANXIETY DEPRESSION) Seizures: Yes (S/P craniotomy for benign tumor - on Depakote for seizure prophylaxis) Thyroid Disease: No - Surgical History Abdominal Surgery: Yes Appendectomy: No Cardiac Surgery: No Cholecystectomy: Yes Lung Surgery: No Neurologic Surgery: Yes (removal left meningioma) Orthopedic Surgery: Yes (Bilateral knee replacement) - Immunization History Td Vaccination: Yes TDAP Vaccination: No Immunization Up to Date: No - Suicide/Smoking/Psychosocial Hx Smoking Status: No Smoking History: Never smoked Have you smoked in the past 12 months: No Number of Cigarettes Smoked Daily: 0 Cigars Per Day: 0 Information on smoking cessation initiated: No Hx Alcohol Use: No Drug/Substance Use Hx: No Substance Use Type: None Hx Substance Use Treatment: No Cardiac Specific PMH - Complaint Specific PMHX Pacemaker: No Review of Systems - Review of Systems Able to Perform ROS?: Yes Is the patient limited Pashto proficient: No Constitutional: No: Symptoms Reported HEENTM: No: Symptoms Reported Respiratory: No: Symptoms reported Cardiac (ROS): Yes: See HPI ABD/GI: No: Symptoms Reported : No: Symptoms Reported Musculoskeletal: No: Symptoms Reported Integumentary: No: Symptoms Reported Neurological: No: Symptoms reported *Physical Exam - Vital Signs Last Vital Signs Temp Pulse Resp BP Pulse Ox 98.7 F 85 18 153/81 95 07/14/17 22:51 07/14/17 22:51 07/14/17 22:51 07/14/17 22:51 07/14/17 22:51 - Physical Exam General Appearance: Yes: Appropriately Dressed. No: Apparent Distress HEENT: positive: Normal ENT Inspection Neck: positive: Trachea midline, Supple Respiratory/Chest: positive: Lungs Clear, Normal Breath Sounds. negative: Respiratory Distress, Accessory Muscle Use Cardiovascular: positive: Regular Rhythm, Regular Rate, Edema (dependant). negative: S1, S2, Murmur Gastrointestinal/Abdominal: positive: Normal Bowel Sounds, Soft. negative: Tender Musculoskeletal: positive: Normal Inspection. negative: CVA Tenderness Extremity: positive: Normal Inspection Integumentary: positive: Normal Color, Dry, Warm Neurologic: positive: Alert, Normal Response Heart Score/ECG Review - History History: Slightly suspicious - Electrocardiogram EKG: Normal - Age Age: >/= 65 - Risk Factors Risk Factors Heart Score: Yes Hx Hypercholesterolemia, Yes Hx Hypertension Based on the list above the patient has:: 1-2 risk factors - Troponin Troponin: </= normal limit - Score Heart Score - Total: 3 ED Treatment Course - LABORATORY CBC & Chemistry Diagram: 07/15/17 00:00 07/15/17 00:00 - ADDITIONAL ORDERS Additional order review: Laboratory Results 07/15/17 07/15/17 00:00 00:00 PT with INR 11.60 INR 1.03 Sodium 129 L Potassium 4.4 Chloride 95 L Carbon Dioxide 24 Anion Gap 10 BUN 14 Creatinine 0.6 Creat Clearance w eGFR > 60 Random Glucose 109 H Calcium 8.9 Magnesium 2.5 H Total Bilirubin 0.5 D AST 37 ALT 32 Alkaline Phosphatase 197 H Creatine Kinase 72 Troponin I < 0.02 B-Natriuretic Peptide 185.51 H Total Protein 7.7 Albumin 3.6 07/15/17 00:00 RBC 4.38 MCV 77.0 L MCHC 31.6 L RDW 18.8 H MPV 7.2 L Neutrophils % 59.5 Lymphocytes % 22.9 Monocytes % 14.5 H Eosinophils % 2.5 Basophils % 0.6 Medical Decision Making - Medical Decision Making 07/15/17 00:02 A/P: 71-year-old woman with multiple medical problems with acute on chronic chest pain Lungs clear to auscultation bilaterally RRR. S1 and S2 present. No murmur, rub or gallop noted. No chest wall tenderness. Trace dependent pedal edema noted Abdomen soft nontender nondistended Normal stress test on 05/18/2017. Echo done 01/29 reveals normal ventricular function with no significant valve pathology. Labs including cardiac profile and BNP, chest x-ray, EKG, reassess 07/15/17 01:24 Laboratory testing reveals mild hyponatremia at 129. BNP is mildly elevated. Troponin is negative. 07/15/17 01:36 EKG as interpreted by Dr. Stone and reviewed by me: Sinus rhythm with rate of 84. Normal intervals noted. Compared to EKG of 06/2517 no significant changes noted 07/15/17 02:50 Given normal exam and unchanged EKG with normal troponin, I will discharge the patient home to follow-up with her primary doctor. *DC/Admit/Observation/Transfer Diagnosis at time of Disposition: Atypical chest pain - Discharge Dispostion Disposition: HOME Condition at time of disposition: Stable Decision to Admit order: No - Referrals Referrals: Waldo Mabry MD [Primary Care Provider] - - Patient Instructions Additional Instructions: Follow-up with your primary doctor for continued evaluation. Return to emergency department for any concerns. Louisa un seguimiento con perla mdico primario para tavo evaluacin continua. Regrese al departamento de emergencias por cualquier inquietud. - Post Discharge Activity
[2017-07-15 00:06] LABS: BASO % 0.6 % (0-2.0); EOS % 2.5 % (0-4.5); HEMATOCRIT 33.7 % (32.4-45.2); HEMOGLOBIN 10.6 GM/dL (10.7-15.3); LYMPH % 22.9 % (8-40); MCH 24.3 pg (25.7-33.7); MCHC 31.6 g/dl (32.0-36.0); MEAN PLT VOLUME 7.2 fl (7.5-11.1); MONO % 14.5 % (3.8-10.2); NEUT % 59.5 % (42.8-82.8); PLATELET COUNT 335 K/MM3 (134-434); RBC 4.38 M/mm3 (3.60-5.2); RDW 18.8 % (11.6-15.6); WHITE BLOOD COUNT 4.5 K/mm3 (4.0-10.0)
[2017-07-15 00:33] LABS: INR 1.03 (0.82-1.09); PROTHROMBIN TIME (PATIENT) 11.6 SEC (9.7-13.0)
[2017-07-15 00:46] LABS: ALBUMIN 3.6 g/dl (3.4-5.0); ANION GAP 10 (8-16); BLOOD UREA NITROGEN 14 mg/dL (7-18); CALCIUM 8.9 mg/dL (8.5-10.1); CHLORIDE 95 mmol/L (98-107); CO2 24 mmol/L (21-32); CREATININE 0.6 mg/dL (0.55-1.02); GLUCOSE,RANDOM 109 mg/dL (74-106); MAGNESIUM 2.5 mg/dL (1.8-2.4); POTASSIUM 4.4 mmol/L (3.5-5.1); SGOT/AST 37 U/L (15-37); SGPT/ALT 32 U/L (12-78); SODIUM 129 mmol/L (136-145)
[2017-07-15 00:51] LABS: ALK PHOS 197 U/L (45-117); BILIRUBIN,TOTAL 0.5 mg/dL (0.2-1.0); N-TERMINAL BNP 185.51 pg/ml (5-125); TOT PROT 7.7 g/dl (6.4-8.2)
[2017-07-15] MEDS ORDERED: ACETAMINOPHEN 325 MG TABLET (FP) PO ONE (02:46)
[2017-07-15 04:39] VITALS: BP 126/78; PULSE 89; TEMP 98.5
--- NOTE | 2017-07-16 22:22 | EKG ---
Test Reason : Blood Pressure : / mmHG Vent. Rate : 084 BPM Atrial Rate : 084 BPM P-R Int : 158 ms QRS Dur : 086 ms QT Int : 370 ms P-R-T Axes : 042 005 038 degrees QTc Int : 437 ms NORMAL SINUS RHYTHM NORMAL ECG WHEN COMPARED WITH ECG OF 12-JUL-2017 19:01, NO SIGNIFICANT CHANGE WAS FOUND Confirmed by MITCH HEREDIA MD ([id number]) on 07/16/2017 10:21:57 PM Referred By: Confirmed By:MITCH HEREDIA MD
== END 2017-07-15 04:34 | disposition home or self-care (01) ==
LOC: JER 22:27
DX: R07.89 Other chest pain (principal); I10 Essential (primary) hypertension; E78.5 Hyperlipidemia, unspecified; J44.9 Chronic obstructive pulmonary disease, unspecified; F41.9 Anxiety disorder, unspecified; Z87.19 Personal history of other diseases of the digestive system; Z87.442 Personal history of urinary calculi; G89.29 Other chronic pain; Z96.653 Presence of artificial knee joint, bilateral
CPT/HCPCS: 36415; 80053; 82550; 83735; 83880; 84484; 85025; 85610; 93005; 93010; 99282-25

== ENCOUNTER 2017-07-28 18:26 | Emergency (ER) | payer OTHER ==
[2017-07-28 18:54] VITALS: BP 162/81; PULSE 88; TEMP 98.5; BMI 30.1
--- NOTE | 2017-07-28 19:49 | PDOC ---
History of Present Illness - General History Source: Patient Exam Limitations: No Limitations - History of Present Illness Initial Comments: 07/28/17 20:24 The patient is a 71 year old female with past medical history of HLD, HTN, COPD , CVA (residual altered balance, baseline confusion and dizziness), diabetes, GERD, seizures s/p craniotomy for benign tumor and anxiety presents to the emergency department with chest pain since 9:00 PM last night. The patient reports a constant sharp squeezing pain to the left anterior chest wall, 5-6/10 in severity, aggravated by palpation of the wall w/ no relief factors. The patients records show multiple ED visits with similar complain. The record s indicate normal cardiac workup w/ normal EKG, Neg trop, normal stress test and echo results. The patient was referred to follow up with [facility], for a psych consult. The patient reports she has an appointment on Monday (08/01/2017). Denies fever, chills, cough or headache. Denies sob. Denies abdominal pain or back pain. Denies nausea or vomiting. Denies diarrhea or constipation. Denies dysuria, hematuria, frequency or urgency to urinate. Denies numbness, tingling or loss of sensation. Denies leg swelling. Allergies: aspirin and morphine Social history: None reported Surgical history: removal left meningioma, Bilateral knee replacement, craniotomy and Cholecystectomy PCP: Waldo Araujo MD <Alexandra Mendoza - Last Filed: 07/28/17 20:27> - General History Source: Patient Exam Limitations: No Limitations <Julieth Stone - Last Filed: 07/28/17 22:48> - General Chief Complaint: Chest Pain Stated Complaint: CHEST PAIN Time Seen by Provider: 07/28/17 18:34 Past History <Alexandra Mendoza - Last Filed: 07/28/17 20:27> - Past Medical History Anemia: Yes Asthma: No Cancer: No Cardiac Disorders: No 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, baseline confusion and dizziness) COPD: No CHF: No DVT: No Dementia: No Diabetes: Yes GI Disorders: Yes (gerd, gastric ulcer, dysphagia) Disorders: Yes (kidney stone in the past) HTN: Yes Hypercholesterolemia: Yes Liver Disease: No Psychiatric Problems: Yes (ANXIETY DEPRESSION) Seizures: Yes (S/P craniotomy for benign tumor - on Depakote for seizure prophylaxis) Thyroid Disease: No - Surgical History Abdominal Surgery: Yes Appendectomy: No Cardiac Surgery: No Cholecystectomy: Yes Lung Surgery: No Neurologic Surgery: Yes (removal left meningioma) Orthopedic Surgery: Yes (Bilateral knee replacement) - Immunization History Td Vaccination: Yes TDAP Vaccination: No Immunization Up to Date: No - Suicide/Smoking/Psychosocial Hx Smoking Status: No Smoking History: Unknown if ever smoked Have you smoked in the past 12 months: No Number of Cigarettes Smoked Daily: 0 Cigars Per Day: 0 Information on smoking cessation initiated: No Hx Alcohol Use: No Drug/Substance Use Hx: No Substance Use Type: None Hx Substance Use Treatment: No <Julieth Stone - Last Filed: 07/28/17 22:48> - Past Medical History Allergies/Adverse Reactions: Allergies Allergy/AdvReac Type Severity Reaction Status Date / Time aspirin Allergy Severe "NERVOUS" Verified 07/28/17 18:46 morphine Allergy Severe "ANXIETY-DE Verified 07/28/17 18:46 SPERATION" Home Medications: Ambulatory Orders Escitalopram Oxalate [Lexapro -] 10 mg PO DAILY 03/10/16 Divalproex [Depakote -] 500 mg PO BID 12/15/16 Oxybutynin Chloride [Ditropan Xl] 15 mg PO DAILY 12/15/16 Linaclotide [Linzess] 72 mcg PO DAILY 01/19/17 Lipase/Protease/Amylase [Creon Dr 36,000 Units Capsule] 1 each PO TID 01/19/17 Metoprolol Succinate [Toprol XL -] 25 mg PO DAILY #30 tab.sr.24h 02/06/17 Famotidine [Pepcid -] 20 mg PO DAILY #14 tablet 05/07/17 Amlodipine Besylate [Norvasc -] 10 mg PO DAILY 06/27/17 Mirtazapine [Remeron -] 15 mg PO HS 06/27/17 Sucralfate [Carafate -] 1 gm PO QID 06/27/17 Methocarbamol [Robaxin -] 500 mg PO TID PRN #10 tablet 07/28/17 Review of Systems - Review of Systems Able to Perform ROS?: Yes Comments:: 07/28/17 20:27 CONSTITUTIONAL: Absent: Fever, Chills, Diaphoresis, Generalized Weakness, Malaise, Loss of Appetite HEENT: Absent: Rhinorrhea, Nasal Congestion, Throat Pain, Throat Swelling, Difficulty Swallowing, Mouth Swelling, Ear Pain, Eye Pain, Visual Changes CARDIOVASCULAR: (+)Left sided chest pain. Absent: Syncope, Palpitations, Irregular Heart Rate, Lightheadedness, Peripheral Edema RESPIRATORY: Absent: Cough, Shortness of Breath, SOB with Exertion, Orthopnea, Wheezing, Stridor, Hemoptysis GASTROINTESTINAL: Absent: Abdominal pain, Abdominal Distension, Nausea, Vomiting, Diarrhea, Constipation, Melena, Hematochezia GENITOURINARY: Absent: Dysuria, Frequency, Urgency, Hesitancy, Flank Pain, Genital Pain MUSCULOSKELETAL: Absent: Myalgia, Arthralgia, Joint Swelling, Back pain, Neck Pain SKIN: Absent: Rash, Itching, Pallor HEMEATOLOGIC/IMMUNOLOGIC: Absent: Easy Bleeding, Easy Bruising, Lymphadenopathy, Frequent infections ENDOCRINE: Absent: Unexplained Weight Gain, Unexplained Weight Loss, Heat Intolerance, Cold Intolerance NEUROLOGIC: Absent: Headache, Focal Weakness, Paresthesias, Vertigo, Lightheadedness, Unsteady Gait, Seizure, Mental Status Changes, Incontinence <Alexandra Mendoza - Last Filed: 07/28/17 20:27> *Physical Exam - Vital Signs Last Vital Signs Temp Pulse Resp BP Pulse Ox 98.5 F 88 18 162/81 95 07/28/17 18:46 07/28/17 18:46 07/28/17 18:46 07/28/17 18:46 07/28/17 18:46 - Physical Exam Comments: 07/28/17 20:27 GENERAL: The patient is in no acute distress. HEAD: Normal with no signs of trauma. EYES: PERRLA, EOMI, sclera anicteric, conjunctiva clear. ENT: Ears normal, nares patent, oropharynx clear without exudates. Moist mucous membranes. NECK: Normal range of motion, supple without lymphadenopathy, JVD, or masses. LUNGS: Breath sounds equal, clear to auscultation bilaterally. No wheezes, and no crackles. HEART:(+) Pain w/ palpation of the chest wall. Regular rate and rhythm, normal S1 and S2 without murmur, rub or gallop. ABDOMEN: Soft, nontender, normoactive bowel sounds. No guarding, no rebound. No masses palpable. EXTREMITIES: Normal range of motion, no edema. No clubbing or cyanosis. No erythema, or tenderness. NEUROLOGICAL: Cranial nerves II through XII grossly intact. Normal speech. No focal neurological deficits. MUSCULOSKELETAL: Back non-tender to palpation, no CVA tenderness SKIN: Warm, Dry, normal turgor, no rashes or lesions noted. <Alexandra Mendoza - Last Filed: 07/28/17 20:27> - Vital Signs Last Vital Signs Temp Pulse Resp BP Pulse Ox 98.5 F 88 18 162/81 95 07/28/17 18:46 07/28/17 18:46 07/28/17 18:46 07/28/17 18:46 07/28/17 18:46 <Julieth Stone - Last Filed: 07/28/17 22:48> ED Treatment Course - LABORATORY CBC & Chemistry Diagram: 07/28/17 21:07 07/28/17 21:07 <Julieth Stone - Last Filed: 07/28/17 22:48> Medical Decision Making - Medical Decision Making 07/28/17 20:23 EKG: SR, rate of 79 bpm, axis nml, intervals nml, no st elevations or depressions, t waves upright 07/28/17 20:25 Ms Sumner presents to the ER with a complaints of chest pain Pt has had repeated presentations ot the ER for the same complaints No fevers or chills Chest pain has been constant since last night at 9 pm No shortness of breath Pain is squeezing, located in the left chest, no radiation, rated 5-6/10 Pt with multiple presentations for the same complaint On examination RRR Pain reproducible with palpation of the left chest wall CTA No abd tenderness No lower extremity edema Will do: Labs EKG Tylenol + robaxin Re assess 07/05/17 17:35 Labs WNL PT Chest pain improved Clinical Impression: chest pain, initial presentation Anxiety, initial presentation 07/28/17 22:11 Laboratory Tests 07/25/17 07/25/17 07/28/17 19:46 19:46 21:07 WBC 3.7 L 4.4 Hgb 10.2 L 10.0 L Hct 32.6 31.2 L Plt Count 347 349 BUN 15 Creatinine 0.7 Creatine Kinase 68 Troponin I < 0.02 07/28/17 21:07 WBC Hgb Hct Plt Count BUN 12 Creatinine 0.6 Creatine Kinase 59 Troponin I < 0.02 07/28/17 22:46 Pt pain no worse Will discharge to home Will ask pt to follow up with her outpatient physicians Return to the ER for any other concerns or complaints <Julieth Stone - Last Filed: 07/28/17 22:48> *DC/Admit/Observation/Transfer - Attestations Scribe Attestion: 07/28/17 20:28 Documentation prepared by Alexandra Mendoza, acting as electromedical equipment technician for Julieth Stone MD. <Alexandra Mendoza - Last Filed: 07/28/17 20:27> - Discharge Dispostion Decision to Admit order: No <Julieth Stone - Last Filed: 07/28/17 22:48> Diagnosis at time of Disposition: Atypical chest pain - Discharge Dispostion Disposition: HOME Condition at time of disposition: Stable - Referrals Referrals: Waldo Mabry MD [Primary Care Provider] - - Patient Instructions Printed Discharge Instructions: DI for Atypical Chest Pain Additional Instructions: Ms Sumner Thank you for coming in to the ER today Please be sure to follow up with your primary care physician Return to the ER for any other concerns or complaints - Post Discharge Activity
[2017-07-28] MEDS ORDERED: ACETAMINOPHEN 500 MG TABLET (FP) PO ONE (20:18)
[2017-07-28] MEDS ORDERED: METHOCARBAMOL 500 MG TABLET PO ONE (20:18)
[2017-07-28] MEDS ORDERED: ACETAMINOPHEN 325 MG TABLET (FP) ONE (20:51)
[2017-07-28] MEDS ORDERED: METHOCARBAMOL 500 MG TABLET ONE (20:51)
[2017-07-28 21:23] LABS: BASO % 0.3 % (0-2.0); EOS % 1.6 % (0-4.5); HEMATOCRIT 31.2 % (32.4-45.2); LYMPH % 24.2 % (8-40); MCH 24.3 pg (25.7-33.7); MCHC 31.9 g/dl (32.0-36.0); MEAN CELL VOLUME 76.2 fl (80-96); MEAN PLT VOLUME 7.3 fl (7.5-11.1); MONO % 14.8 % (3.8-10.2); NEUT % 59.1 % (42.8-82.8); PLATELET COUNT 349 K/MM3 (134-434); RBC 4.09 M/mm3 (3.60-5.2); RDW 18.3 % (11.6-15.6); WHITE BLOOD COUNT 4.4 K/mm3 (4.0-10.0)
[2017-07-28 21:48] LABS: ANION GAP 7 (8-16); BLOOD UREA NITROGEN 12 mg/dL (7-18); CALCIUM 8.8 mg/dL (8.5-10.1); CHLORIDE 101 mmol/L (98-107); CO2 26 mmol/L (21-32); CREATININE 0.6 mg/dL (0.55-1.02); GLUCOSE,RANDOM 121 mg/dL (74-106); POTASSIUM 4.2 mmol/L (3.5-5.1); SODIUM 134 mmol/L (136-145)
--- NOTE | 2017-07-29 17:51 | EKG ---
Test Reason : Blood Pressure : / mmHG Vent. Rate : 079 BPM Atrial Rate : 079 BPM P-R Int : 164 ms QRS Dur : 078 ms QT Int : 386 ms P-R-T Axes : 034 002 027 degrees QTc Int : 442 ms NORMAL SINUS RHYTHM NORMAL ECG WHEN COMPARED WITH ECG OF 25-JUL-2017 19:09, NO SIGNIFICANT CHANGE WAS FOUND Confirmed by ANNITA VENTURA MD ([id number]) on 07/29/2017 5:50:33 PM Referred By: Confirmed By:ANNITA VENTURA MD
== END 2017-07-28 23:00 | disposition home or self-care (01) ==
LOC: JER 18:26
DX: R07.89 Other chest pain (principal); I10 Essential (primary) hypertension; E78.5 Hyperlipidemia, unspecified; E78.00 Pure hypercholesterolemia, unspecified; J44.9 Chronic obstructive pulmonary disease, unspecified; E11.9 Type 2 diabetes mellitus without complications; K21.9 Gastro-esophageal reflux disease without esophagitis; G40.909 Epilepsy, unspecified, not intractable, without status epilepticus; F41.9 Anxiety disorder, unspecified; I69.818 Other symptoms and signs involving cognitive functions following other cerebrovascular disease; Z86.011 Personal history of benign neoplasm of the brain; Z96.653 Presence of artificial knee joint, bilateral; Z88.8 Allergy status to other drugs, medicaments and biological substances
CPT/HCPCS: 36415; 71046-TC-FY; 80048; 82550; 84484; 85025; 93005; 93010; 99282-25

== ENCOUNTER 2017-07-30 14:51 | Emergency (ER) | payer OTHER ==
[2017-07-30 14:57] VITALS: BP 154/92; PULSE 83; TEMP 97; BMI 39.0
[2017-07-30] MEDS ORDERED: KETOROLAC TROMETHAMINE 15 MG/ML VIAL IM ONE (16:05)
--- NOTE | 2017-07-30 16:11 | PDOC ---
History of Present Illness - General Chief Complaint: Chest Pain Stated Complaint: CHEST PAIN Time Seen by Provider: 07/30/17 16:04 - History of Present Illness Initial Comments: 07/30/17 16:04 Ms. Sumner is a well known 71 yo female w/ pmh of HTN, HLD, COPD, CVA, DM, GERD , seizures s/p craniotomy who presents for evaluation of left sided chest pain exacerbated by movement. She reports this is similar in character to her previous presentations. She presents with aid who reports she has been taking tylenol for this pain. The patient denies shortness of breath, headache and dizziness. Denies fever, chills, nausea, vomit, diarrhea and constipation. Denies dysuria, frequency, urgency and hematuria. Allergies: morphine Past History - Past Medical History Allergies/Adverse Reactions: Allergies Allergy/AdvReac Type Severity Reaction Status Date / Time aspirin Allergy Severe "NERVOUS" Verified 07/30/17 14:55 morphine Allergy Severe "ANXIETY-DE Verified 07/30/17 14:55 SPERATION" Home Medications: Ambulatory Orders Escitalopram Oxalate [Lexapro -] 10 mg PO DAILY 03/10/16 Divalproex [Depakote -] 500 mg PO BID 12/15/16 Oxybutynin Chloride [Ditropan Xl] 15 mg PO DAILY 12/15/16 Linaclotide [Linzess] 72 mcg PO DAILY 01/19/17 Lipase/Protease/Amylase [Creon Dr 36,000 Units Capsule] 1 each PO TID 01/19/17 Metoprolol Succinate [Toprol XL -] 25 mg PO DAILY #30 tab.sr.24h 02/06/17 Famotidine [Pepcid -] 20 mg PO DAILY #14 tablet 05/07/17 Amlodipine Besylate [Norvasc -] 10 mg PO DAILY 06/27/17 Mirtazapine [Remeron -] 15 mg PO HS 06/27/17 Sucralfate [Carafate -] 1 gm PO QID 06/27/17 Methocarbamol [Robaxin -] 500 mg PO TID PRN #10 tablet 07/28/17 Anemia: Yes Asthma: No Cancer: No Cardiac Disorders: No 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, baseline confusion and dizziness) COPD: No CHF: No DVT: No Dementia: No Diabetes: Yes GI Disorders: Yes (gerd, gastric ulcer, dysphagia) Disorders: Yes (kidney stone in the past) HTN: Yes Hypercholesterolemia: Yes Liver Disease: No Psychiatric Problems: Yes (ANXIETY DEPRESSION) Seizures: Yes (S/P craniotomy for benign tumor - on Depakote for seizure prophylaxis) Thyroid Disease: No - Surgical History Abdominal Surgery: Yes Appendectomy: No Cardiac Surgery: No Cholecystectomy: Yes Lung Surgery: No Neurologic Surgery: Yes (removal left meningioma) Orthopedic Surgery: Yes (Bilateral knee replacement) - Immunization History Td Vaccination: Yes TDAP Vaccination: No Immunization Up to Date: No - Suicide/Smoking/Psychosocial Hx Smoking Status: No Smoking History: Unknown if ever smoked Have you smoked in the past 12 months: No Number of Cigarettes Smoked Daily: 0 Cigars Per Day: 0 Hx Alcohol Use: No Drug/Substance Use Hx: No Substance Use Type: None Hx Substance Use Treatment: No Review of Systems - Review of Systems Comments:: 07/30/17 16:04 GENERAL/CONSTITUTIONAL: No fever or chills. No weakness. HEAD, EYES, EARS, NOSE AND THROAT: No change in vision. No ear pain or discharge. No sore throat. CARDIOVASCULAR: +Pain with movement of left chest patient reports is similar to her previous instances of MSK chest pain. No shortness of breath RESPIRATORY: No cough, wheezing, or hemoptysis. GASTROINTESTINAL: No nausea, vomiting, diarrhea or constipation. GENITOURINARY: No dysuria, frequency, or change in urination. MUSCULOSKELETAL: No joint or muscle swelling or pain. No neck or back pain. SKIN: No rash NEUROLOGIC: No headache, vertigo, loss of consciousness, or change in strength/ sensation. ENDOCRINE: No increased thirst. No abnormal weight change HEMATOLOGIC/LYMPHATIC: No anemia, easy bleeding, or history of blood clots. ALLERGIC/IMMUNOLOGIC: No hives or skin allergy. *Physical Exam - Vital Signs Last Vital Signs Temp Pulse Resp BP Pulse Ox 97 F L 83 18 154/92 99 07/30/17 14:53 07/30/17 14:53 07/30/17 14:53 07/30/17 14:53 07/30/17 14:53 - Physical Exam Comments: 07/30/17 16:04 GENERAL: Awake, alert, and fully oriented, in no acute distress HEAD: No signs of trauma, normocephalic, atraumatic EYES: PERRLA, EOMI, sclera anicteric, conjunctiva clear ENT: Auricles normal inspection, hearing grossly normal, nares patent, oropharynx clear without exudates. Moist mucosa NECK: Normal ROM, supple, no lymphadenopathy, JVD, or masses LUNGS: No distress, speaks full sentences, clear to auscultation bilaterally HEART: Regular rate and rhythm, normal S1 and S2, no murmurs, rubs or gallops, peripheral pulses normal and equal bilaterally. ABDOMEN: Soft, nontender, normoactive bowel sounds. No guarding, no rebound. No masses EXTREMITIES: Normal inspection, Normal range of motion, no edema. No clubbing or cyanosis. NEUROLOGICAL: Cranial nerves II through XII grossly intact. Normal speech, normal gait, no focal sensorimotor deficits SKIN: Warm, Dry, normal turgor, no rashes or lesions noted. Medical Decision Making - Medical Decision Making 07/30/17 16:19 Ms. Sumner is a 71 yo female w/ pmh as described who presents for evaluation of chest pain similar in character to presentation 2 days ago. Patient has had similar visits many times and reports relief with injected pain medication. EKG completely unchanged from previous. Patient given 15mg toradol IM for symptomatic relief. 07/30/17 16:29 Ms. Sumner reports relief with above symptoms. Has appointment scheduled with practice assistant for tomorrow. Patient ambulating well around ED and no concern for acute process at this time. Discussed importance of follow-up for assistant terminal manager care and management of pain. Patient verbalized understanding and agreement and will comply. Discharging to home. *DC/Admit/Observation/Transfer Diagnosis at time of Disposition: Musculoskeletal chest pain - Discharge Dispostion Disposition: HOME - Referrals Referrals: Waldo Mabry MD [Primary Care Provider] - - Patient Instructions Printed Discharge Instructions: DI for Atypical Chest Pain Additional Instructions: Please follow-up with practice assistant tomorrow at scheduled appointment as discussed. Return to ER if any increase in pain, fever, chills, or other concerning symptoms. Print Language: YAKUT - Post Discharge Activity
[2017-07-30] MEDS ORDERED: KETOROLAC TROMETHAMINE 15 MG/ML VIAL ONE (16:16)
--- NOTE | 2017-07-30 16:42 | PDOC ---
Attending Attestation - Resident Resident Name: Juan LuisdialloAaronAbdoul - ED Attending Attestation I have performed the following: I have examined & evaluated the patient, The case was reviewed & discussed with the resident, I agree w/resident's findings & plan, Exceptions are as noted - HPI HPI: 07/30/17 16:39 71 YO female p/w chest pain ,had recent cads w/u - Physicial Exam PE: 07/30/17 16:40 petite 71 yo ambulating in ER with her walker head ncat neck supple lungs cta b/l cvs [id number] abd [id number] ext no deformities skin no cellulitis,no pitting edema neuro axox3,ambulatory - Medical Decision Making 07/30/17 16:42 compared todays ekg with July 28, 2017 and there are no deficits ekg NSR @ 80 bpm 07/30/17 16:44 pt has an appointment with her impregnator and drier tomorrow plan keep appt w Dr Carlton
--- NOTE | 2017-07-31 14:15 | EKG ---
Test Reason : Blood Pressure : / mmHG Vent. Rate : 080 BPM Atrial Rate : 080 BPM P-R Int : 158 ms QRS Dur : 076 ms QT Int : 378 ms P-R-T Axes : 044 010 031 degrees QTc Int : 435 ms NORMAL SINUS RHYTHM NORMAL ECG WHEN COMPARED WITH ECG OF 28-JUL-2017 19:40, NO SIGNIFICANT CHANGE WAS FOUND Confirmed by ADRIENNE SADLER MD ([id number]) on 07/31/2017 2:14:42 PM Referred By: Confirmed By:ADRIENNE SADLER MD
== END 2017-07-30 16:45 | disposition home or self-care (01) ==
LOC: JER 14:51
PROC: 3E0233Z Introduction of Anti-inflammatory into Muscle, Percutaneous Approach (ICD-10-PCS; principal; 2017-07-30)
DX: R07.89 Other chest pain (principal); I10 Essential (primary) hypertension; E78.00 Pure hypercholesterolemia, unspecified; E11.9 Type 2 diabetes mellitus without complications; Z79.84 Long term (current) use of oral hypoglycemic drugs; K21.9 Gastro-esophageal reflux disease without esophagitis; F41.9 Anxiety disorder, unspecified; F39 Unspecified mood [affective] disorder; I69.818 Other symptoms and signs involving cognitive functions following other cerebrovascular disease; Z87.19 Personal history of other diseases of the digestive system; Z86.011 Personal history of benign neoplasm of the brain
CPT/HCPCS: 93005; 93010; 96372; 99282-25

== ENCOUNTER 2017-08-04 17:43 | Emergency (ER) | payer OTHER ==
--- NOTE | 2017-08-04 18:26 | PDOC ---
Rapid Medical Evaluation Medical Evaluation: Allergies Allergy/AdvReac Type Severity Reaction Status Date / Time aspirin Allergy Severe "NERVOUS" Verified 08/04/17 18:24 morphine Allergy Severe "ANXIETY-DE Verified 08/04/17 18:24 SPERATION" 08/04/17 18:26 I have performed a brief in-person evaluation of this patient. The patient presents with a chief complaint of: CP. Pt well known to ED and has been seen in ED numerous times for same, including 08/01 and 07/30 w/ neg w/u. Also seen by Dr Vargas of cards recently w/ neg cardiac w/u. H/o HTN, HLD, CVA, COPD, anxiety Pertinent physical exam findings:unremarkable I have ordered the following:nothing The patient will proceed to the ED for further evaluation Discharge Disposition - Diagnosis Chest pain Qualifiers: Chest pain type: unspecified Qualified Code(s): R07.9 - Chest pain, unspecified - Referrals - Patient Instructions - Post Discharge Activity
[2017-08-04 18:28] VITALS: BP 155/90; PULSE 86; TEMP 98.4; BMI 34.2
--- NOTE | 2017-08-04 22:17 | PDOC ---
History of Present Illness - General Chief Complaint: Chest Pain Stated Complaint: CHEST PAIN Time Seen by Provider: 08/04/17 18:25 History Source: Patient, Old Records - History of Present Illness Initial Comments: 08/04/17 22:12 71yoF well know nto the ER for freqeutn presentations for chest pain presnets w / same. states she has her typical chest pain x last night. Usually takes tylenol for pain but did not take it prior to ED arrival. Pt has mutlipe negative cardaic workups and is followed by a PMD, last saw PMD 5d ago. Pt states that she is aware her pain is musculoskeletal and not cardaic, but she gets scared anyway. pmhx: chronic chest pain allerg: ASA/NSAIDs shx: denies etoh/illicits NAD well appearing EOMI, KARL OP WNL no LAD RRR, no m/r/g CTABL, no w/r/r, no crackles soft NTND no edema gait WNL w/ walker neuro grossly intact ++ L chest was tenderness on cardiac asculatation. Past History - Past Medical History Allergies/Adverse Reactions: Allergies Allergy/AdvReac Type Severity Reaction Status Date / Time aspirin Allergy Severe "NERVOUS" Verified 08/04/17 18:24 morphine Allergy Severe "ANXIETY-DE Verified 08/04/17 18:24 SPERATION" Home Medications: Ambulatory Orders Escitalopram Oxalate [Lexapro -] 10 mg PO DAILY 03/10/16 Divalproex [Depakote -] 500 mg PO BID 12/15/16 Oxybutynin Chloride [Ditropan Xl] 15 mg PO DAILY 12/15/16 Linaclotide [Linzess] 72 mcg PO DAILY 01/19/17 Lipase/Protease/Amylase [Kamari Nazario 36,000 Units Capsule] 1 each PO TID 01/19/17 Metoprolol Succinate [Toprol XL -] 25 mg PO DAILY #30 tab.sr.24h 02/06/17 Famotidine [Pepcid -] 20 mg PO DAILY #14 tablet 05/07/17 Amlodipine Besylate [Norvasc -] 10 mg PO DAILY 06/27/17 Mirtazapine [Remeron -] 15 mg PO HS 06/27/17 Sucralfate [Carafate -] 1 gm PO QID 06/27/17 Methocarbamol [Robaxin -] 500 mg PO TID PRN #10 tablet 07/28/17 Anemia: Yes Asthma: No Cancer: No Cardiac Disorders: No 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, baseline confusion and dizziness) COPD: No CHF: No DVT: No Dementia: No Diabetes: Yes GI Disorders: Yes (gerd, gastric ulcer, dysphagia) Disorders: Yes (kidney stone in the past) HTN: Yes Hypercholesterolemia: Yes Liver Disease: No Psychiatric Problems: Yes (ANXIETY DEPRESSION) Seizures: Yes (S/P craniotomy for benign tumor - on Depakote for seizure prophylaxis) Thyroid Disease: No - Surgical History Abdominal Surgery: Yes Appendectomy: No Cardiac Surgery: No Cholecystectomy: Yes Lung Surgery: No Neurologic Surgery: Yes (removal left meningioma) Orthopedic Surgery: Yes (Bilateral knee replacement) - Immunization History Td Vaccination: Yes TDAP Vaccination: No Immunization Up to Date: No - Suicide/Smoking/Psychosocial Hx Smoking Status: No Smoking History: Never smoked Have you smoked in the past 12 months: No Number of Cigarettes Smoked Daily: 0 Cigars Per Day: 0 Hx Alcohol Use: No Drug/Substance Use Hx: No Substance Use Type: None Hx Substance Use Treatment: No *Physical Exam - Vital Signs Last Vital Signs Temp Pulse Resp BP Pulse Ox 98.4 F 86 18 155/90 97 08/04/17 18:25 08/04/17 18:25 08/04/17 18:25 08/04/17 18:25 08/04/17 18:25 Medical Decision Making - Medical Decision Making 08/04/17 22:15 71yoF well known to ER w/ chronic noncardiac chest pain. - tylenol for pain control - DC. *DC/Admit/Observation/Transfer Diagnosis at time of Disposition: Musculoskeletal chest pain - Discharge Dispostion Disposition: HOME Condition at time of disposition: Good - Referrals Referrals: Waldo Mabry MD [Primary Care Provider] - - Patient Instructions Additional Instructions: Take tylenol for your chest pain as usual. Continue to see your regular doctor as scheduled. [place] Tylenol para perla dolor en el pecho ke de costumbre. Contine viendo a perla mdico regular segn lo programado. Print Language: ENG - Post Discharge Activity
[2017-08-04] MEDS ORDERED: ACETAMINOPHEN 500 MG TABLET (FP) PO ONE (22:18)
[2017-08-04] MEDS ORDERED: ACETAMINOPHEN 325 MG TABLET (FP) ONE (22:58)
== END 2017-08-05 00:07 | disposition home or self-care (01) ==
LOC: JER 17:43
DX: R07.89 Other chest pain (principal); I10 Essential (primary) hypertension; E78.00 Pure hypercholesterolemia, unspecified; J44.9 Chronic obstructive pulmonary disease, unspecified; F41.8 Other specified anxiety disorders; I69.818 Other symptoms and signs involving cognitive functions following other cerebrovascular disease; Z87.19 Personal history of other diseases of the digestive system; Z96.653 Presence of artificial knee joint, bilateral; Z86.011 Personal history of benign neoplasm of the brain
CPT/HCPCS: 99281-25

== ENCOUNTER 2017-08-06 17:29 | Emergency (ER) | payer OTHER ==
[2017-08-06 17:55] VITALS: BP 127/62; PULSE 85; TEMP 98.4; BMI 32.2
[2017-08-06] MEDS ORDERED: KETOROLAC TROMETHAMINE 15 MG/ML VIAL ONE (20:13)
--- NOTE | 2017-08-06 20:17 | PDOC ---
History of Present Illness - General Chief Complaint: Chest Pain Stated Complaint: CHEST PAIN Time Seen by Provider: 08/06/17 19:46 - History of Present Illness Initial Comments: 08/06/17 20:33 Ms. Sumner is a well known 71 yo female who presents for evaluation of 1 day history of squeezing left breast pain. She reports that it is very painful and has been constant. She has tried tylenol for this pain with no avail. It is similar to her previous non-cardiac episodes of chest pain. The patient denies shortness of breath, headache and dizziness. Denies fever, chills, nausea, vomit, diarrhea and constipation. Denies dysuria, frequency, urgency and hematuria. Allergies: Aspirin, morphine. Past History - Past Medical History Allergies/Adverse Reactions: Allergies Allergy/AdvReac Type Severity Reaction Status Date / Time aspirin Allergy Severe "NERVOUS" Verified 08/06/17 22:37 morphine Allergy Severe "ANXIETY-DE Verified 08/06/17 22:37 SPERATION" Home Medications: Ambulatory Orders Escitalopram Oxalate [Lexapro -] 10 mg PO DAILY 03/10/16 Divalproex [Depakote -] 500 mg PO BID 12/15/16 Oxybutynin Chloride [Ditropan Xl] 15 mg PO DAILY 12/15/16 Linaclotide [Linzess] 72 mcg PO DAILY 01/19/17 Lipase/Protease/Amylase [Creon Dr 36,000 Units Capsule] 1 each PO TID 01/19/17 Metoprolol Succinate [Toprol XL -] 25 mg PO DAILY #30 tab.sr.24h 02/06/17 Famotidine [Pepcid -] 20 mg PO DAILY #14 tablet 05/07/17 Amlodipine Besylate [Norvasc -] 10 mg PO DAILY 06/27/17 Mirtazapine [Remeron -] 15 mg PO HS 06/27/17 Sucralfate [Carafate -] 1 gm PO QID 06/27/17 Methocarbamol [Robaxin -] 500 mg PO TID PRN #10 tablet 07/28/17 Anemia: Yes Asthma: No Cancer: No Cardiac Disorders: No 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, baseline confusion and dizziness) COPD: No CHF: No DVT: No Dementia: No Diabetes: Yes GI Disorders: Yes (gerd, gastric ulcer, dysphagia) Disorders: Yes (kidney stone in the past) HTN: Yes Hypercholesterolemia: Yes Liver Disease: No Psychiatric Problems: Yes (ANXIETY DEPRESSION) Seizures: Yes (S/P craniotomy for benign tumor - on Depakote for seizure prophylaxis) Thyroid Disease: No - Surgical History Abdominal Surgery: Yes Appendectomy: No Cardiac Surgery: No Cholecystectomy: Yes Lung Surgery: No Neurologic Surgery: Yes (removal left meningioma) Orthopedic Surgery: Yes (Bilateral knee replacement) - Immunization History Td Vaccination: Yes TDAP Vaccination: No Immunization Up to Date: No - Suicide/Smoking/Psychosocial Hx Smoking Status: No Smoking History: Never smoked Have you smoked in the past 12 months: No Number of Cigarettes Smoked Daily: 0 Cigars Per Day: 0 Hx Alcohol Use: No Drug/Substance Use Hx: No Substance Use Type: None Hx Substance Use Treatment: No Review of Systems - Review of Systems Comments:: 08/06/17 20:34 GENERAL/CONSTITUTIONAL: No fever or chills. No weakness. HEAD, EYES, EARS, NOSE AND THROAT: No change in vision. No ear pain or discharge. No sore throat. CARDIOVASCULAR: +1 day history of left breast pain w/out shortness of breath. Non-radiating. RESPIRATORY: No cough, wheezing, or hemoptysis. GASTROINTESTINAL: No nausea, vomiting, diarrhea or constipation. GENITOURINARY: No dysuria, frequency, or change in urination. MUSCULOSKELETAL: No joint or muscle swelling or pain. No neck or back pain. SKIN: No rash NEUROLOGIC: No headache, vertigo, loss of consciousness, or change in strength/ sensation. ENDOCRINE: No increased thirst. No abnormal weight change HEMATOLOGIC/LYMPHATIC: No anemia, easy bleeding, or history of blood clots. ALLERGIC/IMMUNOLOGIC: No hives or skin allergy. *Physical Exam - Vital Signs Last Vital Signs Temp Pulse Resp BP Pulse Ox 98.4 F 85 19 127/62 95 08/06/17 17:51 08/06/17 17:51 08/06/17 17:51 08/06/17 17:51 08/06/17 17:51 - Physical Exam Comments: 08/06/17 20:35 GENERAL: Awake, alert, and fully oriented, in no acute distress HEAD: No signs of trauma, normocephalic, atraumatic EYES: PERRLA, EOMI, sclera anicteric, conjunctiva clear ENT: Auricles normal inspection, hearing grossly normal, nares patent, oropharynx clear without exudates. Moist mucosa NECK: Normal ROM, supple, no lymphadenopathy, JVD, or masses LUNGS: No distress, speaks full sentences, clear to auscultation bilaterally HEART: Regular rate and rhythm, normal S1 and S2, no murmurs, rubs or gallops, peripheral pulses normal and equal bilaterally. ABDOMEN: Soft, nontender, normoactive bowel sounds. No guarding, no rebound. No masses EXTREMITIES: Normal inspection, Normal range of motion, no edema. No clubbing or cyanosis. NEUROLOGICAL: Cranial nerves II through XII grossly intact. Normal speech, normal gait, no focal sensorimotor deficits SKIN: Warm, Dry, normal turgor, no rashes or lesions noted. ED Treatment Course - LABORATORY CBC & Chemistry Diagram: 08/06/17 20:30 08/06/17 20:30 Medical Decision Making - Medical Decision Making 08/06/17 20:35 Ms. Sumner is a well known 71 yo female who presents for evaluation of her typical left breast pain. Patient has been evaluated frequently by cardiology, PCP, and ER w/ no known cause of her pain. EKG unchanged from previous 2 days ago. Basic labs and cardiac panel sent for evaluation. 08/07/17 19:19 Labs grossly unconcerning as below. Patient reporting relief with toradol. Discharging to home. *DC/Admit/Observation/Transfer Diagnosis at time of Disposition: Pain - Discharge Dispostion Disposition: HOME - Referrals Referrals: Waldo Mabry MD [Primary Care Provider] - - Patient Instructions Printed Discharge Instructions: DI for Chest Pain Additional Instructions: Follow up with your primary doctor in 2-3 days. Return to the ER if you have any new, worsening, or concerning symptoms. - Post Discharge Activity
[2017-08-06 20:42] LABS: BASO % 1.5 % (0-2.0); EOS % 3.3 % (0-4.5); HEMATOCRIT 32.7 % (32.4-45.2); HEMOGLOBIN 10.1 GM/dL (10.7-15.3); LYMPH % 22.8 % (8-40); MCH 23.6 pg (25.7-33.7); MEAN CELL VOLUME 76.3 fl (80-96); MEAN PLT VOLUME 7.6 fl (7.5-11.1); MONO % 11.8 % (3.8-10.2); NEUT % 60.6 % (42.8-82.8); PLATELET COUNT 355 K/MM3 (134-434); RBC 4.29 M/mm3 (3.60-5.2); RDW 17.7 % (11.6-15.6); WHITE BLOOD COUNT 4.8 K/mm3 (4.0-10.0)
[2017-08-06 21:04] LABS: ALBUMIN 3.4 g/dl (3.4-5.0); ANION GAP 7 (8-16); BILIRUBIN,TOTAL 0.3 mg/dL (0.2-1.0); BLOOD UREA NITROGEN 16 mg/dL (7-18); CALCIUM 8.7 mg/dL (8.5-10.1); CHLORIDE 102 mmol/L (98-107); CO2 25 mmol/L (21-32); CREATININE 0.7 mg/dL (0.55-1.02); GLUCOSE,RANDOM 114 mg/dL (74-106); SGPT/ALT 44 U/L (12-78); SODIUM 134 mmol/L (136-145); TOT PROT 7.4 g/dl (6.4-8.2)
[2017-08-06] MEDS ORDERED: KETOROLAC TROMETHAMINE 15 MG/ML VIAL IM ONE (21:04)
[2017-08-06 21:07] LABS: ALK PHOS 225 U/L (45-117)
--- NOTE | 2017-08-06 21:07 | PDOC ---
Attending Attestation - Resident Resident Name: bAdoul Burgos - ED Attending Attestation I have performed the following: I have examined & evaluated the patient, The case was reviewed & discussed with the resident, I agree w/resident's findings & plan, Exceptions are as noted - HPI HPI: 08/06/17 21:08 71 year old female with history of hypertension, anxiety, depression, frequent presentations to the ED for complaints of chest pain, who presents to the ED complaining of chest pain. She states pain is the same as prior episodes. She states she experiences intermittent chest pain when she thinks of stressful situations. Denies associated dizziness, diaphoresis, N/V/D, abd pain, weakness , numbness, abd pain, headache, rash. - Physicial Exam PE: 08/06/17 22:25 GENERAL: Awake, alert, and fully oriented, in no acute distress HEAD: No signs of trauma EYES: PERRLA, EOMI, sclera anicteric, conjunctiva clear ENT: Auricles normal inspection, hearing grossly normal, nares patent, oropharynx clear without exudates. Moist mucosa NECK: Normal ROM, supple, no lymphadenopathy, JVD, or masses LUNGS: Breath sounds equal, clear to auscultation bilaterally. No wheezes, and no crackles HEART: Regular rate and rhythm, normal S1 and S2, no murmurs, rubs or gallops ABDOMEN: Soft, nontender, normoactive bowel sounds. No guarding, no rebound. No masses EXTREMITIES: Normal range of motion, no edema. No clubbing or cyanosis. No cords , erythema, or tenderness BACK: No midline spinal tenderness in cervical/thoracic/lumbar region NEUROLOGICAL: Normal speech, cranial nerves intact, negative pronator drift, 5/ 5 strength in all 4 extremities, normal sensation to light touch in all 4 extremities, normal cerebellar exam, normal gait, normal reflexes and tone SKIN: Warm, Dry, normal turgor, no rashes or lesions noted. - Medical Decision Making 08/06/17 21:10 71yo F presents to the ED with CP similar to her chronic CP. Labs wnl. Exam wnl. EKG unchanged. Will check labs including trop and reassess. 08/06/17 21:49 Labs well appearing. Pt ambulating in ED, asymptomatic. Stable for DC home I discussed the physical exam findings, ancillary test results and final diagnoses with the patient. I answered all of the patient's questions. The patient was satisfied with the care received and felt comfortable with the discharge plan and treatment plan. The patient will call their primary care physician within 24 hours to arrange follow-up and will return to the Emergency Department with any new, persistent or worsening symptoms. Heart Score/ECG Review #1 08/06/17 21:12 My EKG read: NSR, rate 78, normal axis and intervals. No MACHELLE. No change compared to previous EKG.
[2017-08-06 22:57] LABS: POTASSIUM 5.3 mmol/L (3.5-5.1); SGOT/AST 42 U/L (15-37)
--- NOTE | 2017-08-07 12:15 | EKG ---
Test Reason : Blood Pressure : / mmHG Vent. Rate : 078 BPM Atrial Rate : 078 BPM P-R Int : 168 ms QRS Dur : 082 ms QT Int : 402 ms P-R-T Axes : 000 -04 015 degrees QTc Int : 458 ms NORMAL SINUS RHYTHM NORMAL ECG WHEN COMPARED WITH ECG OF 01-AUG-2017 21:42, NO SIGNIFICANT CHANGE WAS FOUND Confirmed by J LUIS POWELL MD ([id number]) on 08/07/2017 12:14:39 PM Referred By: Confirmed By:J LUIS POWELL MD
== END 2017-08-06 23:05 | disposition home or self-care (01) ==
LOC: JER 17:29
PROC: 3E0333Z Introduction of Anti-inflammatory into Peripheral Vein, Percutaneous Approach (ICD-10-PCS; principal; 2017-08-06)
DX: R07.89 Other chest pain (principal); D64.9 Anemia, unspecified; I10 Essential (primary) hypertension; E11.9 Type 2 diabetes mellitus without complications; E78.00 Pure hypercholesterolemia, unspecified; Z86.73 Personal history of transient ischemic attack (TIA), and cerebral infarction without residual deficits; Z87.19 Personal history of other diseases of the digestive system; Z87.442 Personal history of urinary calculi; Z96.653 Presence of artificial knee joint, bilateral; Z86.011 Personal history of benign neoplasm of the brain; Z88.6 Allergy status to analgesic agent
CPT/HCPCS: 36415; 80053; 84484; 85025; 93005; 93010; 96372; 99283-25

== ENCOUNTER 2017-08-19 17:08 | Emergency (ER) | payer OTHER ==
[2017-08-19 17:20] VITALS: BP 105/49; PULSE 82; TEMP 97; BMI 36.1
--- NOTE | 2017-08-19 17:40 | PDOC ---
History of Present Illness - General Chief Complaint: Chest Pain Stated Complaint: CHEST PAIN Time Seen by Provider: 08/19/17 17:39 History Source: Patient - History of Present Illness Initial Comments: 08/19/17 18:08 71 year old female presents with 2 day h/o chest pain. Pain started acutely, is 10/10, sharp without any identifiable triggering or relieving factors. Patient states she is "alone" and "worried she is going to ." Denies any shortness of breath, lightheadedness, palpitations, diaphoresis. Notes h/o multiple episodes of similar pain. States she has an appointment with Dr. Vargas The patient denies fevers/chills, abdominal pain, diarrhea/constipation, dysuria /hematuria, sick contacts or recent travel. Allergy: ASA, morphine 08/19/17 18:11 Past History - Past Medical History Allergies/Adverse Reactions: Allergies Allergy/AdvReac Type Severity Reaction Status Date / Time aspirin Allergy Severe "NERVOUS" Verified 08/19/17 17:19 morphine Allergy Severe "ANXIETY-DE Verified 08/19/17 17:19 SPERATION" Home Medications: Ambulatory Orders Escitalopram Oxalate [Lexapro -] 10 mg PO DAILY 03/10/16 Divalproex [Depakote -] 500 mg PO BID 12/15/16 Oxybutynin Chloride [Ditropan Xl] 15 mg PO DAILY 12/15/16 Linaclotide [Linzess] 72 mcg PO DAILY 01/19/17 Lipase/Protease/Amylase [Kamari Nazario 36,000 Units Capsule] 1 each PO TID 01/19/17 Metoprolol Succinate [Toprol XL -] 25 mg PO DAILY #30 tab.sr.24h 02/06/17 Famotidine [Pepcid -] 20 mg PO DAILY #14 tablet 05/07/17 Amlodipine Besylate [Norvasc -] 10 mg PO DAILY 06/27/17 Mirtazapine [Remeron -] 15 mg PO HS 06/27/17 Sucralfate [Carafate -] 1 gm PO QID 06/27/17 Methocarbamol [Robaxin -] 500 mg PO TID PRN #10 tablet 07/28/17 Acetaminophen [Tylenol .Regular Strength -] 325 mg PO Q6H PRN #30 tablet Anemia: Yes Asthma: No Cancer: No Cardiac Disorders: No 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, baseline confusion and dizziness) COPD: No CHF: No DVT: No Dementia: No Diabetes: Yes GI Disorders: Yes (gerd, gastric ulcer, dysphagia) Disorders: Yes (kidney stone in the past) HTN: Yes Hypercholesterolemia: Yes Liver Disease: No Psychiatric Problems: Yes (ANXIETY DEPRESSION) Seizures: Yes (S/P craniotomy for benign tumor - on Depakote for seizure prophylaxis) Thyroid Disease: No - Surgical History Abdominal Surgery: Yes Appendectomy: No Cardiac Surgery: No Cholecystectomy: Yes Lung Surgery: No Neurologic Surgery: Yes (removal left meningioma) Orthopedic Surgery: Yes (Bilateral knee replacement) - Immunization History Td Vaccination: Yes TDAP Vaccination: No Immunization Up to Date: No - Suicide/Smoking/Psychosocial Hx Smoking Status: No Smoking History: Never smoked Have you smoked in the past 12 months: No Number of Cigarettes Smoked Daily: 0 Cigars Per Day: 0 Hx Alcohol Use: No Drug/Substance Use Hx: No Substance Use Type: None Hx Substance Use Treatment: No Review of Systems - Review of Systems Constitutional: No: Chills, Fever Respiratory: No: Cough, Shortness of Breath Cardiac (ROS): Yes: Chest Pain. No: Lightheadedness, Palpitations, Syncope ABD/GI: No: Constipated, Diarrhea, Nausea, Vomiting Psychiatric: Yes: Anxiety, Depression *Physical Exam - Vital Signs Last Vital Signs Temp Pulse Resp BP Pulse Ox 97 F L 82 18 105/49 98 08/19/17 17:13 08/19/17 17:13 08/19/17 17:13 08/19/17 17:13 08/19/17 17:13 Medical Decision Making - Medical Decision Making 08/19/17 18:18 71 year old female with chest pain *DC/Admit/Observation/Transfer Diagnosis at time of Disposition: Chest pain - Discharge Dispostion Disposition: HOME Condition at time of disposition: Good Decision to Admit order: No - Referrals Referrals: Christian Caputo NP [Nurse Practitioner] - - Patient Instructions Printed Discharge Instructions: DI for Depression -- Adult, DI for Anxiety -- Adult Additional Instructions: Please keep your scheduled appointment with Dr. Vargas for evaluation. Please also call Christian Caputo, Nurse Practitioner, for an appointment to evaluate your anxiety. Return to the Emergency Department for any new/worsening/concerning symptoms. - Post Discharge Activity
--- NOTE | 2017-08-19 17:48 | PDOC ---
Attending Attestation - Resident Resident Name: Mago Last - ED Attending Attestation I have performed the following: I have examined & evaluated the patient, The case was reviewed & discussed with the resident, I agree w/resident's findings & plan, Exceptions are as noted - Medical Decision Making 08/19/17 17:48 I, Dr. Magnolia Higgins, DO, attest that this document has been prepared under my direction and personally reviewed by me in its entirety. I further attest, that it accurately reflects all work, treatment, procedures and medical decision -making performed by me. 08/19/17 18:00 a/p: 71yo female with chronic L anterior wall chest pain -nontoxic in appearance -in the ED daily -will do ekg and labs -will monitor and medicate <Magnolia Higgins - Last Filed: 08/19/17 18:00> - HPI HPI: 08/19/17 18:28 The patient is a 71 year old female with past medical history of HLD, HTN, COPD , CVA (residual altered balance, baseline confusion and dizziness), diabetes, GERD, seizures s/p craniotomy for benign tumor and anxiety presents to the emergency department with chest pain and headache. Patient presents with a nonradiating pain localized to the anterior chest wall, with no relief noted with Tylenol. Patient reports an associated concern of generalized headache, no relief with Tylenol. As per the records, patient frequently presents to the ER with similar concern of chest pain. Denies fever, chills or a cough. Denies sob. Denies abdominal pain or back pain. Denies nausea or vomiting. Denies diarrhea or constipation. Denies dysuria , hematuria, frequency or urgency to urinate. Denies numbness, tingling or loss of sensation. Denies leg swelling. Allergies: aspirin and morphine Social history: None reported Surgical history: removal left meningioma, Bilateral knee replacement, craniotomy and Cholecystectomy PCP: Waldo Araujo MD GI: Dr. Ziggy Grubbs Philosophy Instructor: Dr. Vargas. - Physicial Exam PE: 08/19/17 18:30 GENERAL: Awake, alert, and fully oriented, in no acute distress HEAD: No signs of trauma EYES: PERRLA, EOMI, sclera anicteric, conjunctiva clear ENT: Auricles normal inspection, hearing grossly normal, nares patent, oropharynx clear without exudates. Moist mucosa NECK: Normal ROM, supple, no lymphadenopathy, JVD, or masses LUNGS: Breath sounds equal, clear to auscultation bilaterally. No wheezes, and no crackles HEART:(+) L. anterior chest wall tenderness. Regular rate and rhythm, normal S1 and S2, no murmurs, rubs or gallops ABDOMEN: Soft, nontender, normoactive bowel sounds. No guarding, no rebound. No masses EXTREMITIES: Normal range of motion, no edema. No clubbing or cyanosis. No cords, erythema, or tenderness NEUROLOGICAL: Cranial nerves II through XII grossly intact. Normal speech, normal gait SKIN: Warm, Dry, normal turgor, no rashes or lesions noted. - Medical Decision Making 08/19/17 18:31 Documentation prepared by Alexandra Mendoza, acting as certified medical technician assistant for Magnolia Higgins DO. <Alexandra Mendoza - Last Filed: 08/19/17 18:31> Heart Score/ECG Review - ECG Intrepretation Comment:: 08/19/17 18:01 sinus at 83, nl axis, nl interval, no acute st/t wave findings <Magnolia Higgins - Last Filed: 08/19/17 18:00>
[2017-08-19] MEDS ORDERED: ACETAMINOPHEN 500 MG TABLET (FP) PO ONE (17:55)
[2017-08-19] MEDS ORDERED: METOCLOPRAMIDE HCL 10 MG TABLET (FP) PO ONE ×2 (18:00→18:16)
[2017-08-19] MEDS ORDERED: ACETAMINOPHEN 325 MG TABLET (FP) ONE (18:16)
[2017-08-19] MEDS ORDERED: hydrOXYzine HCL 25 MG TABLET (FP) PO ONE (18:55)
--- NOTE | 2017-08-22 12:08 | EKG ---
Test Reason : Blood Pressure : / mmHG Vent. Rate : 083 BPM Atrial Rate : 083 BPM P-R Int : 148 ms QRS Dur : 072 ms QT Int : 378 ms P-R-T Axes : 015 006 022 degrees QTc Int : 444 ms NORMAL SINUS RHYTHM NORMAL ECG Confirmed by MD SALMERON GREGORY ([id number]) on 08/22/2017 12:07:56 PM Referred By: Confirmed By:UMBERTO SALMERON MD
== END 2017-08-19 19:52 | disposition home or self-care (01) ==
LOC: JER 17:08
DX: R07.9 Chest pain, unspecified (principal); I10 Essential (primary) hypertension; E78.00 Pure hypercholesterolemia, unspecified; E11.9 Type 2 diabetes mellitus without complications; J44.9 Chronic obstructive pulmonary disease, unspecified; F41.9 Anxiety disorder, unspecified; Z86.69 Personal history of other diseases of the nervous system and sense organs; I69.818 Other symptoms and signs involving cognitive functions following other cerebrovascular disease; Z86.011 Personal history of benign neoplasm of the brain; Z87.19 Personal history of other diseases of the digestive system; Z96.652 Presence of left artificial knee joint; Z96.651 Presence of right artificial knee joint; Z90.49 Acquired absence of other specified parts of digestive tract
CPT/HCPCS: 36415; 82550; 84484; 99282-25

== ENCOUNTER 2017-08-26 09:35 | Emergency (ER) | payer OTHER ==
[2017-08-26 09:41] VITALS: TEMP 98.9; BMI 36.1
[2017-08-26 10:32] LABS: BASO % 0.9 % (0-2.0); EOS % 1.3 % (0-4.5); HEMATOCRIT 31.9 % (32.4-45.2); HEMOGLOBIN 10.1 GM/dL (10.7-15.3); LYMPH % 18.6 % (8-40); MCH 23.6 pg (25.7-33.7); MCHC 31.7 g/dl (32.0-36.0); MEAN CELL VOLUME 74.4 fl (80-96); MEAN PLT VOLUME 7.2 fl (7.5-11.1); MONO % 13.6 % (3.8-10.2); NEUT % 65.6 % (42.8-82.8); PLATELET COUNT 361 K/MM3 (134-434); RBC 4.29 M/mm3 (3.60-5.2); RDW 17.9 % (11.6-15.6); WHITE BLOOD COUNT 5.3 K/mm3 (4.0-10.0)
[2017-08-26] MEDS ORDERED: ACETAMINOPHEN 500 MG TABLET (FP) PO ONE (10:42)
--- NOTE | 2017-08-26 10:42 | PDOC ---
History of Present Illness - General Chief Complaint: Chest Pain Stated Complaint: CHEST PAIN Time Seen by Provider: 08/26/17 09:48 History Source: Patient Exam Limitations: No Limitations - History of Present Illness Initial Comments: 08/26/17 11:42 71-year-old female with complaints of left-sided chest pain worsened with movement and deep breathing presents to ED for evaluation. Patient also states is mildly anxious and did not take Seroquel upon arrival this morning. Patient denies nausea, palpitations, shortness of breath, fever, chills, headache, rash , or recent increase in exertion. Presenting Symptoms: Chest Pain Timing/Duration: reports: constant Severity/Quality: reports: moderate Chest Pain Radiation: reports: no radiation Activities at Onset: reports: exertion Prior Chest Pain/Cardiac Workup: reports: Echocardiography Modifying Factors: improves with: movement Nitro Today/Relief: Yes: no nitro taken today Aspirin Received prior to arrival (Core Measure): Yes: no aspirin today Associated Symptoms: Yes: Chest Pain/pressure Past History - Travel Traveled outside of the country in the last 30 days: No - Past Medical History Allergies/Adverse Reactions: Allergies Allergy/AdvReac Type Severity Reaction Status Date / Time aspirin Allergy Severe "NERVOUS" Verified 08/26/17 09:41 morphine Allergy Severe "ANXIETY-DE Verified 08/26/17 09:41 SPERATION" Home Medications: Ambulatory Orders Escitalopram Oxalate [Lexapro -] 10 mg PO DAILY 03/10/16 Divalproex [Depakote -] 500 mg PO BID 12/15/16 Oxybutynin Chloride [Ditropan Xl] 15 mg PO DAILY 12/15/16 Linaclotide [Linzess] 72 mcg PO DAILY 01/19/17 Lipase/Protease/Amylase [Creon Dr 36,000 Units Capsule] 1 each PO TID 01/19/17 Metoprolol Succinate [Toprol XL -] 25 mg PO DAILY #30 tab.sr.24h 02/06/17 Famotidine [Pepcid -] 20 mg PO DAILY #14 tablet 05/07/17 Amlodipine Besylate [Norvasc -] 10 mg PO DAILY 06/27/17 Mirtazapine [Remeron -] 15 mg PO HS 06/27/17 Sucralfate [Carafate -] 1 gm PO QID 06/27/17 Methocarbamol [Robaxin -] 500 mg PO TID PRN #10 tablet 07/28/17 Acetaminophen [Tylenol .Regular Strength -] 325 mg PO Q6H PRN #30 tablet Unobtainable 08/26/17 Anemia: Yes Asthma: No Cancer: No Cardiac Disorders: No 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, baseline confusion and dizziness) COPD: No CHF: No DVT: No Dementia: No Diabetes: Yes GI Disorders: Yes (gerd, gastric ulcer, dysphagia) Disorders: Yes (kidney stone in the past) HTN: Yes Hypercholesterolemia: Yes Liver Disease: No Psychiatric Problems: Yes (ANXIETY DEPRESSION) Seizures: Yes (S/P craniotomy for benign tumor - on Depakote for seizure prophylaxis) Thyroid Disease: No - Surgical History Abdominal Surgery: Yes Appendectomy: No Cardiac Surgery: No Cholecystectomy: Yes Lung Surgery: No Neurologic Surgery: Yes (removal left meningioma) Orthopedic Surgery: Yes (Bilateral knee replacement) - Immunization History Td Vaccination: Yes TDAP Vaccination: No Immunization Up to Date: No - Suicide/Smoking/Psychosocial Hx Smoking Status: No Smoking History: Never smoked Have you smoked in the past 12 months: No Number of Cigarettes Smoked Daily: 0 Cigars Per Day: 0 Hx Alcohol Use: No Drug/Substance Use Hx: No Substance Use Type: None Hx Substance Use Treatment: No Patient Lives Alone: Yes Lives with/in: lives alone (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) Cardiac Specific PMH - Complaint Specific PMHX Pacemaker: No Review of Systems - Review of Systems Able to Perform ROS?: Yes Constitutional: No: Symptoms Reported HEENTM: No: Symptoms Reported Respiratory: No: Symptoms reported Cardiac (ROS): Yes: Chest Pain ABD/GI: No: Symptoms Reported Musculoskeletal: Yes: Muscle Pain (left chest) Integumentary: No: Symptoms Reported Neurological: No: Symptoms reported Psychiatric: Yes: Anxiety Endocrine: No: Symptoms Reported Hematologic/Lymphatic: No: Symptoms Reported *Physical Exam - Vital Signs Last Vital Signs Temp Pulse Resp BP Pulse Ox 98.9 F 75 18 140/62 98 08/26/17 09:38 08/26/17 13:38 08/26/17 09:38 08/26/17 13:38 08/26/17 13:38 - Physical Exam General Appearance: Yes: Nourished, Appropriately Dressed. No: Apparent Distress HEENT: positive: EOMI, KARL, TMs Normal, Pharynx Normal. negative: Pale Conjunctivae Neck: positive: Normal Thyroid, Supple Respiratory/Chest: positive: Chest Tender (left chest wall at 2-5th rib lateral of sternum), Lungs Clear, Normal Breath Sounds. negative: Respiratory Distress , Accessory Muscle Use Cardiovascular: positive: Regular Rhythm, Regular Rate. negative: Murmur Vascular Pulses: Dorsalis-Pedis (R): 2+, Doralis-Pedis (L): 2+ Gastrointestinal/Abdominal: positive: Soft. negative: Tenderness Extremity: positive: Normal Capillary Refill. negative: Pedal Edema Integumentary: positive: Normal Color, Warm, Moist. negative: Rash Neurologic: positive: Normal Mood/Affect, Motor Strength 5/5 (ambulatory) Heart Score/ECG Review - History History: Slightly suspicious - Electrocardiogram EKG: Normal - Age Age: >/= 65 - Risk Factors Risk Factors Heart Score: Yes Hx Hypertension Based on the list above the patient has:: 1-2 risk factors - Troponin Troponin: </= normal limit - Score Heart Score - Total: 3 - ECG Intrepretation Rhythm: Regular Rhythm (rate 87. NSR) ED Treatment Course - LABORATORY CBC & Chemistry Diagram: 08/26/17 10:15 08/26/17 10:15 - ADDITIONAL ORDERS Additional order review: 08/26/17 10:15 RBC 4.29 MCV 74.4 L MCHC 31.7 L RDW 17.9 H MPV 7.2 L Neutrophils % 65.6 Lymphocytes % 18.6 Monocytes % 13.6 H Eosinophils % 1.3 Basophils % 0.9 - RADIOLOGY Radiology Studies Ordered: Category Date Time Status CHEST PA & LAT [RAD] Stat Radiology 08/26/17 09:49 Completed - Medications Given in the ED: ED Medications Discontinued Medications Generic Name Dose Route Start Last Admin Trade Name Freq PRN Reason Stop Dose Admin Acetaminophen 975 mg 08/26/17 10:42 08/26/17 10:45 Tylenol - PO 08/26/17 10:43 975 mg ONCE ONE Administration Sodium Chloride 1,000 mls @ 1,000 mls/hr 08/26/17 12:52 08/26/17 12:59 Normal Saline - IV 08/26/17 13:51 1,000 mls/hr ASDIR STA Administration Medical Decision Making - Medical Decision Making 08/26/17 11:45 Patient here with left-sided chest pain reproducible on exam. Patient ordered for cardiac work up along with Tylenol since she states did not take this morning as previously recommended by her PCP and ER physicians. 08/26/17 12:53 Laboratory Tests 01/19/17 01/19/17 08/26/17 11:07 11:25 10:15 WBC 5.3 Hgb 10.1 L Hct 31.9 L MPV 7.2 L Monocytes % 13.6 H Sodium 121 L* Potassium Chloride Carbon Dioxide Anion Gap BUN Creatinine Creat Clearance w eGFR Random Glucose Calcium Magnesium Total Bilirubin AST ALT Alkaline Phosphatase Creatine Kinase Troponin I Total Protein Albumin Urine Ketones Trace H Urine Blood 2+ H Urine Nitrite Positive Ur Leukocyte Esterase Pending Urine RBC (Auto) 7 08/26/17 10:15 WBC Hgb Hct MPV Monocytes % Sodium 130 L Potassium 5.1 Chloride 96 L Carbon Dioxide 25 Anion Gap 9 BUN 12 Creatinine 0.7 Creat Clearance w eGFR > 60 Random Glucose 122 H Calcium 9.0 Magnesium 2.3 Total Bilirubin 0.4 AST 38 H ALT 33 Alkaline Phosphatase 200 H Creatine Kinase 114 Troponin I < 0.02 Total Protein 7.4 Albumin 3.6 Urine Ketones Urine Blood Urine Nitrite Ur Leukocyte Esterase Urine RBC (Auto) Patient ordered for 1 liter of normal saline. Secondary to hyponatremia. Patient also offered lunch. *DC/Admit/Observation/Transfer Diagnosis at time of Disposition: Atypical chest pain, Anxiety - Discharge Dispostion Disposition: HOME Condition at time of disposition: Improved - Referrals - Patient Instructions Printed Discharge Instructions: Anxiety and Panic Attacks (Alternative Therapy) Additional Instructions: Take Motrin or Tylenol for discomfort. Please try to use distraction methods including keep busy throughout the day which helps with anxiety and hopefully promotes relaxation. - Post Discharge Activity
[2017-08-26 10:45] LABS: INR 1.04 (0.82-1.09); PROTHROMBIN TIME (PATIENT) 11.8 SEC (9.7-13.0)
[2017-08-26] MEDS ORDERED: ACETAMINOPHEN 325 MG TABLET (FP) ONE (10:45)
[2017-08-26 11:46] LABS: ALBUMIN 3.6 g/dl (3.4-5.0); ANION GAP 9 (8-16); BLOOD UREA NITROGEN 12 mg/dL (7-18); CHLORIDE 96 mmol/L (98-107); CO2 25 mmol/L (21-32); GLUCOSE,RANDOM 122 mg/dL (74-106); SODIUM 130 mmol/L (136-145)
[2017-08-26 11:51] LABS: ALK PHOS 200 U/L (45-117); BILIRUBIN,TOTAL 0.4 mg/dL (0.2-1.0); CREATININE 0.7 mg/dL (0.55-1.02); SGPT/ALT 33 U/L (12-78); TOT PROT 7.4 g/dl (6.4-8.2)
[2017-08-26 11:53] LABS: MAGNESIUM 2.3 mg/dL (1.8-2.4); POTASSIUM 5.1 mmol/L (3.5-5.1); SGOT/AST 38 U/L (15-37)
[2017-08-26] MEDS ORDERED: SODIUM CHLORIDE 1,000 ML IV STA (12:52)
[2017-08-26 14:33] VITALS: BP 140/62; PULSE 75
--- NOTE | 2017-08-26 14:41 | EKG ---
Test Reason : Blood Pressure : / mmHG Vent. Rate : 087 BPM Atrial Rate : 087 BPM P-R Int : 152 ms QRS Dur : 076 ms QT Int : 372 ms P-R-T Axes : 047 011 034 degrees QTc Int : 447 ms NORMAL SINUS RHYTHM NORMAL ECG WHEN COMPARED WITH ECG OF 19-AUG-2017 17:17, NO SIGNIFICANT CHANGE WAS FOUND Confirmed by Peter Huang ([id number]) on 08/26/2017 2:40:50 PM Referred By: Confirmed By:Peter Huang
[2017-08-26 14:47] LABS: URINE APPEARANCE CLEAR; URINE BILIRUBIN NEGATIVE (<2.0 mg/dL); URINE COLOR LTYELLOW; URINE GLUCOSE (UA) NEGATIVE (NEGATIVE); URINE KETONE NEGATIVE (NEGATIVE); URINE NITRITE POSITIVE (NEGATIVE); URINE PROTEIN NEGATIVE (NEGATIVE); URINE UROBILINOGEN NEGATIVE mg/dL (0.2-1.0)
[2017-08-26 15:16] LABS: URINE LEUK ESTERASE 1+ (NEGATIVE)
[2017-08-26 15:24] LABS: EPI CELLS RARE /HPF (FEW); URINE BACTERIA FEW /hpf (NONE SEEN); URINE MUCUS RARE
== END 2017-08-26 15:21 | disposition home or self-care (01) ==
LOC: JER 09:35
PROC: 3E0337Z Introduction of Electrolytic and Water Balance Substance into Peripheral Vein, Percutaneous Approach (ICD-10-PCS; principal; 2017-08-26)
DX: R07.89 Other chest pain (principal); F41.9 Anxiety disorder, unspecified; D64.9 Anemia, unspecified; I10 Essential (primary) hypertension; E11.9 Type 2 diabetes mellitus without complications; E78.00 Pure hypercholesterolemia, unspecified; F41.8 Other specified anxiety disorders; G40.909 Epilepsy, unspecified, not intractable, without status epilepticus; I69.893 Ataxia following other cerebrovascular disease; I69.818 Other symptoms and signs involving cognitive functions following other cerebrovascular disease; Z87.19 Personal history of other diseases of the digestive system; Z87.442 Personal history of urinary calculi; Z96.651 Presence of right artificial knee joint; Z96.652 Presence of left artificial knee joint; Z86.011 Personal history of benign neoplasm of the brain; Z88.6 Allergy status to analgesic agent
CPT/HCPCS: 36415; 71046-TC-FY; 80053; 81003; 81015; 82550; 83735; 84484; 85025; 85610; 93005; 93010; 96360; 99283-25; J7030

== ENCOUNTER 2017-08-30 18:39 | Emergency (ER) | payer OTHER ==
--- NOTE | 2017-08-30 18:43 | PDOC ---
Rapid Medical Evaluation Chief Complaint: Chest Pain Time Seen by Provider: 08/30/17 18:42 Medical Evaluation: Allergies Allergy/AdvReac Type Severity Reaction Status Date / Time aspirin Allergy Severe "NERVOUS" Verified 08/30/17 18:41 morphine Allergy Severe "ANXIETY-DE Verified 08/30/17 18:41 SPERATION" I have performed a brief in-person evaluation of this patient. The patient presents with a chief complaint of: chest pain Pertinent physical exam findings: none I have ordered the following: ekg The patient will proceed to the ED for further evaluation. Discharge Disposition - Diagnosis Chest pain - Referrals - Patient Instructions - Post Discharge Activity
[2017-08-30 18:44] VITALS: BP 113/66; PULSE 96; TEMP 98.6; BMI 36.1
--- NOTE | 2017-08-30 20:02 | PDOC ---
History of Present Illness - General Chief Complaint: Chest Pain Stated Complaint: CHEST PAIN Time Seen by Provider: 08/30/17 18:42 - History of Present Illness Initial Comments: 08/30/17 20:01 71 yo F with h/o of HLD, DM, HTN, COPD, CVA (residual altered balance, baseline confusion and dizziness), chronic chest pain, GERD, seizures s/p craniotomy for benign tumor and anxiety presents to the emergency department with chest pain and palpitations. Patient reports acute onset of diffuse chest pressure and palpitations beginning this evening at rest. Symptoms now resolved. No identifiable triggers or alleviators. Patient denies N/V, F,C, SOB, urinary complaints, abdominal pain, diarrhea, constipation, lightheadedness, weakness, sensory changes. PMHx: as noted above ROS: as noted Surgical: removal left meningioma, Bilateral knee replacement, craniotomy and Cholecystectomy Allergies: aspirin and morphine PCP: Waldo Araujo MD GI: Dr. Ziggy Grubbs Tnt Powder Worker: Dr. Vargas. Past History - Past Medical History Allergies/Adverse Reactions: Allergies Allergy/AdvReac Type Severity Reaction Status Date / Time aspirin Allergy Severe "NERVOUS" Verified 08/30/17 18:41 morphine Allergy Severe "ANXIETY-DE Verified 08/30/17 18:41 SPERATION" Home Medications: Ambulatory Orders Escitalopram Oxalate [Lexapro -] 10 mg PO DAILY 03/10/16 Divalproex [Depakote -] 500 mg PO BID 12/15/16 Oxybutynin Chloride [Ditropan Xl] 15 mg PO DAILY 12/15/16 Linaclotide [Linzess] 72 mcg PO DAILY 01/19/17 Lipase/Protease/Amylase [Kamari Nazario 36,000 Units Capsule] 1 each PO TID 01/19/17 Metoprolol Succinate [Toprol XL -] 25 mg PO DAILY #30 tab.sr.24h 02/06/17 Famotidine [Pepcid -] 20 mg PO DAILY #14 tablet 05/07/17 Amlodipine Besylate [Norvasc -] 10 mg PO DAILY 06/27/17 Mirtazapine [Remeron -] 15 mg PO HS 06/27/17 Sucralfate [Carafate -] 1 gm PO QID 06/27/17 Methocarbamol [Robaxin -] 500 mg PO TID PRN #10 tablet 07/28/17 Acetaminophen [Tylenol .Regular Strength -] 325 mg PO Q6H PRN #30 tablet Unobtainable 08/26/17 Anemia: Yes Asthma: No Cancer: No Cardiac Disorders: No 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, baseline confusion and dizziness) COPD: No CHF: No DVT: No Dementia: No Diabetes: Yes GI Disorders: Yes (gerd, gastric ulcer, dysphagia) Disorders: Yes (kidney stone in the past) HTN: Yes Hypercholesterolemia: Yes Liver Disease: No Psychiatric Problems: Yes (ANXIETY DEPRESSION) Seizures: Yes (S/P craniotomy for benign tumor - on Depakote for seizure prophylaxis) Thyroid Disease: No - Surgical History Abdominal Surgery: Yes Appendectomy: No Cardiac Surgery: No Cholecystectomy: Yes Lung Surgery: No Neurologic Surgery: Yes (removal left meningioma) Orthopedic Surgery: Yes (Bilateral knee replacement) - Immunization History Td Vaccination: Yes TDAP Vaccination: No Immunization Up to Date: No - Suicide/Smoking/Psychosocial Hx Smoking Status: No Smoking History: Never smoked Have you smoked in the past 12 months: No Number of Cigarettes Smoked Daily: 0 Cigars Per Day: 0 Information on smoking cessation initiated: No Hx Alcohol Use: No Drug/Substance Use Hx: No Substance Use Type: None Hx Substance Use Treatment: No Review of Systems - Review of Systems Comments:: 08/30/17 20:01 GENERAL/CONSTITUTIONAL: No fever or chills. No weakness. HEAD, EYES, EARS, NOSE AND THROAT: No change in vision. No ear pain or discharge. No sore throat. CARDIOVASCULAR: +chest pain. No shortness of breath RESPIRATORY: No cough, wheezing, or hemoptysis. GASTROINTESTINAL: No nausea, vomiting, diarrhea or constipation. GENITOURINARY: No dysuria, frequency, or change in urination. MUSCULOSKELETAL: No joint or muscle swelling or pain. No neck or back pain. SKIN: No rash NEUROLOGIC: No headache, vertigo, loss of consciousness, or change in strength/ sensation. ENDOCRINE: No increased thirst. No abnormal weight change HEMATOLOGIC/LYMPHATIC: No anemia, easy bleeding, or history of blood clots. ALLERGIC/IMMUNOLOGIC: No hives or skin allergy. *Physical Exam - Vital Signs Last Vital Signs Temp Pulse Resp BP Pulse Ox 98.6 F 96 H 18 113/66 100 08/30/17 18:43 08/30/17 18:43 08/30/17 18:43 08/30/17 18:43 08/30/17 18:43 - Physical Exam Comments: 08/30/17 20:01 GENERAL: Awake, alert, and fully oriented, in no acute distress HEAD: No signs of trauma, normocephalic, atraumatic EYES: PERRLA, EOMI, sclera anicteric, conjunctiva clear ENT: Hearing grossly normal, nares patent, oropharynx clear without exudates. Moist mucosa NECK: Normal ROM, supple, no lymphadenopathy, JVD, or masses LUNGS: No distress, speaks full sentences, clear to auscultation bilaterally HEART: Regular rate and rhythm, normal S1 and S2, no murmurs, rubs or gallops, peripheral pulses normal and equal bilaterally. EXTREMITIES : Normal inspection, Normal range of motion, no edema. No clubbing or cyanosis. SKIN: Warm, Dry, normal turgor, no rashes or lesions noted ED Treatment Course - LABORATORY CBC & Chemistry Diagram: 08/30/17 21:05 08/30/17 21:05 Medical Decision Making - Medical Decision Making 08/30/17 21:00 71 yo F with h/o of HLD, DM, HTN, COPD, CVA (residual altered balance, baseline confusion and dizziness), chronic chest pain, GERD, seizures s/p craniotomy for benign tumor and anxiety presents to the emergency department with chest pain and palpitations. VSS, AF. ACS/AR r/o. PERC +, low risk PE based on weils criteria. Will assess for electrolyte abnml, metabolic derangements, and toxic or acid-base disturbances. Ed Course: 08/30/17 21:02 EKG: NSR with absent MACHELLE, STD, TWI. Normal axis and interval duration 08/30/17 22:28 CBC,CMP: Unremarkable Trop: Neg Pt. stable for d/c with return precautions. Advised to f/u with PMD and cardiology. *DC/Admit/Observation/Transfer Diagnosis at time of Disposition: Chest pain Qualifiers: Chest pain type: other chest pain Qualified Code(s): R07.89 - Other chest pain - Discharge Dispostion Disposition: HOME Condition at time of disposition: Stable Decision to Admit order: No - Referrals Referrals: Waldo Mabry MD [Primary Care Provider] - Shyam Vargas MD [Staff Physician] - - Patient Instructions Printed Discharge Instructions: DI for Atypical Chest Pain Additional Instructions: Please return to the emergency department with any new or worsening symptoms or concerns. Please follow up with your primary care physician within 72 hours. Please follow up with cardiology within one week. - Post Discharge Activity - Attestations Physician Attestion: 08/30/17 20:02 I attest to the information provided in this note.
[2017-08-30 21:12] LABS: BASO % 0.8 % (0-2.0); HEMATOCRIT 32.3 % (32.4-45.2); HEMOGLOBIN 10.2 GM/dL (10.7-15.3); LYMPH % 27.6 % (8-40); MCH 23.7 pg (25.7-33.7); MCHC 31.7 g/dl (32.0-36.0); MEAN CELL VOLUME 74.8 fl (80-96); MEAN PLT VOLUME 6.9 fl (7.5-11.1); MONO % 11.9 % (3.8-10.2); NEUT % 55.7 % (42.8-82.8); PLATELET COUNT 349 K/MM3 (134-434); RBC 4.32 M/mm3 (3.60-5.2); WHITE BLOOD COUNT 5.1 K/mm3 (4.0-10.0)
[2017-08-30 21:39] LABS: ALBUMIN 3.3 g/dl (3.4-5.0); ANION GAP 10 (8-16); BILIRUBIN,TOTAL 0.2 mg/dL (0.2-1.0); BLOOD UREA NITROGEN 18 mg/dL (7-18); CALCIUM 8.6 mg/dL (8.5-10.1); CHLORIDE 100 mmol/L (98-107); CO2 24 mmol/L (21-32); CREATININE 0.8 mg/dL (0.55-1.02); GLUCOSE,RANDOM 143 mg/dL (74-106); POTASSIUM 4.4 mmol/L (3.5-5.1); SGOT/AST 23 U/L (15-37); SODIUM 134 mmol/L (136-145); TOT PROT 6.9 g/dl (6.4-8.2)
[2017-08-30 21:42] LABS: ALK PHOS 215 U/L (45-117); SGPT/ALT 29 U/L (12-78)
--- NOTE | 2017-08-30 22:31 | PDOC ---
Attending Attestation - Resident Resident Name: Gonzalo Lutz - ED Attending Attestation I have performed the following: I have examined & evaluated the patient, The case was reviewed & discussed with the resident, I agree w/resident's findings & plan, Exceptions are as noted - HPI HPI: 08/30/17 22:30 71 F with h/o HLD, DM, HTN, COPD, CVA (residual altered balance, baseline confusion and dizziness), chronic chest pain, GERD, seizures, presenting to ED with chest pain. Pt is well known to ED and has had multiple similar presentations. Pt reports midsternal chest pressure, consistent with prior presentations. Pt denies SOB. Denies leg swelling. - Physicial Exam PE: 08/30/17 22:30 "GENERAL: Awake, alert, and fully oriented, in no acute distress. HEAD: No signs of trauma EYES: PERRLA, EOMI, sclera anicteric, conjunctiva clear ENT: Auricles normal inspection, hearing grossly normal, nares patent, oropharynx clear without exudates. Moist mucosa NECK: Nontender, no stepoffs, Normal ROM, supple, no lymphadenopathy, JVD, or masses LUNGS: Breath sounds equal, clear to auscultation bilaterally. No wheezes, and no crackles HEART: Regular rate and rhythm, normal S1 and S2, no murmurs, rubs or gallops ABDOMEN: Soft, nontender, normoactive bowel sounds. No guarding, no rebound. No masses EXTREMITIES: Normal range of motion, no edema. No clubbing or cyanosis. No cords, erythema, or tenderness NEUROLOGICAL: Cranial nerves II through XII intact. 5/5 strength and sensation in all extremities, Normal speech, normal gait, normal cerebellar function SKIN: Warm, Dry, normal turgor, no rashes or lesions noted. " - Medical Decision Making 08/30/17 22:31 71 F with chronic chest pain. EKG unchanged, no ischemia. - Labs wnl, trop negative - Pt now with resolved chest pain Pt is well appearing, with normal vitals. Clinically stable for DC at this time. I discussed the physical exam findings, ancillary test results and final diagnoses with the patient. I answered all of the patient's questions. The patient was satisfied with the care received and felt comfortable with the discharge plan and treatment plan. The patient agrees to follow up with the primary care physician within 24-72 hours.
--- NOTE | 2017-08-31 14:22 | EKG ---
Test Reason : Blood Pressure : / mmHG Vent. Rate : 081 BPM Atrial Rate : 081 BPM P-R Int : 160 ms QRS Dur : 074 ms QT Int : 376 ms P-R-T Axes : 038 003 020 degrees QTc Int : 436 ms NORMAL SINUS RHYTHM NORMAL ECG WHEN COMPARED WITH ECG OF 26-AUG-2017 09:44, NO SIGNIFICANT CHANGE WAS FOUND Confirmed by TERENCE GARCIA MD ([id number]) on 08/31/2017 2:21:38 PM Referred By: Confirmed By:TERENCE GARCIA MD
== END 2017-08-30 23:31 | disposition home or self-care (01) ==
LOC: JER 18:39
DX: R07.89 Other chest pain (principal); I10 Essential (primary) hypertension; E11.9 Type 2 diabetes mellitus without complications; J44.9 Chronic obstructive pulmonary disease, unspecified; J45.909 Unspecified asthma, uncomplicated; K21.9 Gastro-esophageal reflux disease without esophagitis; G40.909 Epilepsy, unspecified, not intractable, without status epilepticus; I69.893 Ataxia following other cerebrovascular disease; I69.818 Other symptoms and signs involving cognitive functions following other cerebrovascular disease; Z87.19 Personal history of other diseases of the digestive system; Z96.653 Presence of artificial knee joint, bilateral; Z86.011 Personal history of benign neoplasm of the brain; Z88.8 Allergy status to other drugs, medicaments and biological substances
CPT/HCPCS: 36415; 80053; 82550; 84484; 85025; 93005; 93010; 99281-25

== ENCOUNTER 2017-10-01 10:02 | Emergency (ER) | payer OTHER ==
[2017-10-01 10:20] VITALS: BMI 39.4
--- NOTE | 2017-10-01 10:48 | PDOC ---
Attending Attestation - Resident Resident Name: Jose Craig - ED Attending Attestation I have performed the following: I have examined & evaluated the patient, The case was reviewed & discussed with the resident, I agree w/resident's findings & plan, Exceptions are as noted - HPI HPI: 10/01/17 11:58 The patient is a 71-year-old [place]ian speaking female presents to the emergency department with chest pain since yesterday. The patient reports pain to the Left anterior chest wall pain, throbbing and stabbing in character, accompanied with nausea, denies vomiting. The patient records indicate, shes seen at the ED several times prior for the similar complaint. The patient reports an additional history of chronic abdominal pain. The patient was recently treated for UTI with nitrofurantoin. Denies fever, chill, shortness of breath, ankle or wrist swelling, or a headache. Prior exams: Nuclear scan in may, unremarkable results. Recent normal mammogram. Prior negative cardiac workup. ECHO WNL January 2017, Holter without significant events 01/29 PMHx: CVA (2009 - residual altered balance, baseline confusion and dizziness), GERD, HTN, HLD, anxiety, depression, seizures s/p craniotomy for benign tumor. Allergies: morphine and aspirin. PSHx: Cholecystectomy, removal left meningioma, and Bilateral knee replacement SHx: No smoking history, No ETOH or drugs. PCP: Waldo Mabry MD GI: Dr. Ziggy Grubbs Tab Cutting Machine Operator: Dr. Vargas. - Physicial Exam PE: 10/01/17 13:22 GENERAL: Awake, alert, and fully oriented, in no acute distress HEAD: No signs of trauma EYES: PERRLA, EOMI, sclera anicteric, conjunctiva clear ENT: Auricles normal inspection, hearing grossly normal, nares patent, oropharynx clear without exudates. Moist mucosa NECK: Normal ROM, supple, no lymphadenopathy, JVD, or masses LUNGS: Breath sounds equal, clear to auscultation bilaterally. No wheezes, and no crackles HEART: Regular rate and rhythm, normal S1 and S2, no murmurs, rubs or gallops ABDOMEN: Soft, nontender, normoactive bowel sounds. No guarding, no rebound. No masses EXTREMITIES: Normal range of motion, no edema. No clubbing or cyanosis. No cords, erythema, or tenderness NEUROLOGICAL: Cranial nerves II through XII grossly intact. Normal speech. SKIN: Warm, Dry, normal turgor, no rashes or lesions noted. - Medical Decision Making 10/01/17 11:59 Documentation prepared by Alexandra Mendoza, acting as medical anthropology director for Emily Castro MD.
--- NOTE | 2017-10-01 10:58 | PDOC ---
History of Present Illness - General Chief Complaint: Psychiatric Stated Complaint: ANXIETY Time Seen by Provider: 10/01/17 10:39 - History of Present Illness Initial Comments: 10/01/17 10:56 71 year old female hx of DM, HTN, and HLD, well known to our department for atypical chest pain presentations (negative nuclear stress test performed May 2017), presenting with left sided throbbing chest pain for the past day associated with nausea but no emesis. She denies any recent bouts of diaphoresis. She denies any pain radiation to jaw or arm. When asked if the pain is pressure like the patient says it is not, and it is stabbing and throbbing in nature. She was seen in our ED last week for the same issue. Denies any headache, fevers , chills, diarrhea, or other symptoms. 10/01/17 11:02 Past History - Past Medical History Allergies/Adverse Reactions: Allergies Allergy/AdvReac Type Severity Reaction Status Date / Time aspirin Allergy Severe "NERVOUS" Verified 10/01/17 10:10 morphine Allergy Severe "ANXIETY-DE Verified 10/01/17 10:10 SPERATION" Home Medications: Ambulatory Orders Escitalopram Oxalate [Lexapro -] 10 mg PO DAILY 03/10/16 Divalproex [Depakote -] 500 mg PO BID 12/15/16 Metoprolol Succinate [Toprol XL -] 25 mg PO DAILY #30 tab.sr.24h 02/06/17 Amlodipine Besylate [Norvasc -] 10 mg PO DAILY 06/27/17 Acetaminophen [Tylenol .Regular Strength -] 325 mg PO Q6H PRN #30 tablet Nitrofurantoin Monohyd/M-Cryst [Nitrofurantoin [place]-Mcr 100 mg] 100 mg PO BID 5 Days #9 capsule 09/23/17 Amox-Tr/K Cl [Augmentin - 500Mg Tablet] 1 tab PO BID 5 Days #10 tablet 09/27/17 Unobtainable 10/01/17 Anemia: Yes Asthma: No Cancer: No Cardiac Disorders: No 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, baseline confusion and dizziness) COPD: No CHF: No DVT: No Dementia: No Diabetes: Yes GI Disorders: Yes (gerd, gastric ulcer, dysphagia) Disorders: Yes (kidney stone in the past) HTN: Yes Hypercholesterolemia: Yes Liver Disease: No Psychiatric Problems: Yes (ANXIETY DEPRESSION) Seizures: Yes (S/P craniotomy for benign tumor - on Depakote for seizure prophylaxis) Thyroid Disease: No - Surgical History Abdominal Surgery: Yes Appendectomy: No Cardiac Surgery: No Cholecystectomy: Yes Lung Surgery: No Neurologic Surgery: Yes (removal left meningioma) Orthopedic Surgery: Yes (Bilateral knee replacement) - Immunization History Td Vaccination: Yes TDAP Vaccination: No Immunization Up to Date: No - Suicide/Smoking/Psychosocial Hx Smoking Status: No Smoking History: Never smoked Have you smoked in the past 12 months: No Number of Cigarettes Smoked Daily: 0 Cigars Per Day: 0 Hx Alcohol Use: No Drug/Substance Use Hx: No Substance Use Type: None Hx Substance Use Treatment: No Review of Systems - Review of Systems Comments:: 10/01/17 11:05 CONSTITUTIONAL: Absent: fever, chills, diaphoresis, generalized weakness, malaise, loss of appetite HEENT: Absent: rhinorrhea, nasal congestion, throat pain, throat swelling, difficulty swallowing, mouth swelling, ear pain, eye pain, visual Changes CARDIOVASCULAR: Positive: Chest pain, palpitations Absent: syncope, irregular heart rate, lightheadedness, peripheral edema RESPIRATORY: Absent: cough, shortness of breath, dyspnea with exertion, orthopnea, wheezing, stridor, hemoptysis GASTROINTESTINAL: Positive: Abdominal pain, abdominal distension Absent: nausea, vomiting, diarrhea, constipation, melena, hematochezia GENITOURINARY: Absent: dysuria, frequency, urgency, hesitancy, hematuria, flank pain, genital pain MUSCULOSKELETAL: Absent: myalgia, arthralgia, joint swelling SKIN: Absent: rash, itching, pallor HEMATOLOGIC/IMMUNOLOGIC: Absent: easy bleeding, easy bruising, lymphadenopathy, frequent infections ENDOCRINE: Absent: unexplained weight gain, unexplained weight loss, heat intolerance, cold intolerance NEUROLOGIC: Positive: unsteady gait Absent: headache, focal weakness or paresthesias, dizziness, seizure, mental status changes, bladder or bowel incontinence PSYCHIATRIC: Absent: anxiety, depression, suicidal or homicidal ideation, hallucinations. *Physical Exam - Vital Signs Last Vital Signs Temp Pulse Resp BP Pulse Ox 98.5 F 88 18 156/85 99 10/01/17 10:10 10/01/17 10:10 10/01/17 10:10 10/01/17 10:10 10/01/17 10:10 - Physical Exam Comments: 10/01/17 11:07 GENERAL: Well developed, well nourished. Awake and alert. No acute distress. HEENT: Normocephalic, atraumatic. PERRLA, EOMI. No conjunctival pallor. Sclera are non- icteric. Moist mucous membranes. Oropharynx is clear. NECK: Supple. Full ROM. No JVD. No thyromegaly. No lymphadenopathy. CARDIOVASCULAR: Regular rate and rhythm. No murmurs, rubs, or gallops. Distal pulses are 2+ and symmetric. PULMONARY: No evidence of respiratory distress. Lungs clear to auscultation bilaterally. No wheezing, rales or rhonchi. ABDOMINAL: There is Left sided abdominal TTP. Otherwise abdomen is Soft and Non-distended. No rebound or guarding. No organomegaly. Normoactive bowel sounds. MUSCULOSKELETAL Normal range of motion at all joints. No bony deformities or tenderness. No CVA tenderness. EXTREMITIES: No cyanosis. No clubbing. No edema. No calf tenderness. SKIN: Warm and dry. Normal capillary refill. No rashes. No jaundice. NEUROLOGICAL: Alert, awake, appropriate. Cranial nerves 2-12 grossly intact. Normal speech. PSYCHIATRIC: Cooperative. Good eye contact. Appropriate mood and affect. 10/01/17 11:16 ED Treatment Course - LABORATORY CBC & Chemistry Diagram: 10/01/17 12:22 10/01/17 16:40 Medical Decision Making - Medical Decision Making 10/01/17 11:18 71 year old female hx of DM, HTN, and HLD, well known to our department for atypical chest pain presentations (negative nuclear stress test performed May 2017), presenting with left sided throbbing chest pain for the past day associated with nausea but no emesis. This sounds like a musculoskeletal issue in nature. Given risk factors will r/o ACS w/ ekg and two sets of trops. Plan: Cbc, Cmp, Ua/Uc, ekg, trops, acetaminophen, re-assess. Ck and CK mb were elevated on original labs. Trop negative. Gave her a Liter of fluid. Re-checking CMP for ck and ckmb She was trop negative twice. Ck and CKMB came down. We are DCing her with instructions to follow up at a shop repairer in the next 3 days. 10/01/17 16:58 10/01/17 18:35 *DC/Admit/Observation/Transfer Diagnosis at time of Disposition: Atypical chest pain - Discharge Dispostion Disposition: HOME Condition at time of disposition: Stable Decision to Admit order: No - Referrals Referrals: Waldo Mabry MD [Primary Care Provider] - - Patient Instructions Printed Discharge Instructions: DI for Atypical Chest Pain, DI for Chest Pain Additional Instructions: Please make sure to follow up with your primary care doctor in the next 3 to 5 days. Come back to the emergency room if your pain worsens, you have difficulty breathing, or have any other serious concerns. Print Language: SYRI[place] - Post Discharge Activity
[2017-10-01] MEDS ORDERED: ACETAMINOPHEN 1000 MG/100 ML VIAL (NON FORMULARY) IVPB ONE (11:00)
[2017-10-01] MEDS ORDERED: FAMOTIDINE 20 MG/50 ML IVPB 20 MG/50 ML MG IVPB ONE ×2 (11:00→12:17)
[2017-10-01] MEDS ORDERED: ACETAMINOPHEN INJECTION 100 ML IVPB ONE (12:17)
[2017-10-01 12:35] LABS: BASO % 0.5 % (0-2.0); EOS % 1.5 % (0-4.5); HEMOGLOBIN 10.4 GM/dL (10.7-15.3); LYMPH % 11.6 % (8-40); MCH 24.1 pg (25.7-33.7); MCHC 32.5 g/dl (32.0-36.0); MEAN PLT VOLUME 7.2 fl (7.5-11.1); MONO % 16.4 % (3.8-10.2); PLATELET COUNT 300 K/MM3 (134-434); RBC 4.33 M/mm3 (3.60-5.2); RDW 18.5 % (11.6-15.6); WHITE BLOOD COUNT 6.7 K/mm3 (4.0-10.0)
[2017-10-01 12:55] LABS: ALBUMIN 3.4 g/dl (3.4-5.0); ANION GAP 9 (8-16); BILIRUBIN,TOTAL 0.4 mg/dL (0.2-1.0); BLOOD UREA NITROGEN 14 mg/dL (7-18); CALCIUM 8.6 mg/dL (8.5-10.1); CHLORIDE 92 mmol/L (98-107); CO2 27 mmol/L (21-32); CREATININE 0.6 mg/dL (0.55-1.02); GLUCOSE,RANDOM 105 mg/dL (74-106); POTASSIUM 3.7 mmol/L (3.5-5.1); SGOT/AST 129 U/L (15-37); SGPT/ALT 55 U/L (12-78); SODIUM 128 mmol/L (136-145)
[2017-10-01 13:06] LABS: URINE APPEARANCE CLEAR; URINE BILIRUBIN NEGATIVE (<2.0 mg/dL); URINE COLOR LTYELLOW; URINE GLUCOSE (UA) NEGATIVE (NEGATIVE); URINE KETONE NEGATIVE (NEGATIVE); URINE LEUK ESTERASE NEGATIVE (NEGATIVE); URINE NITRITE NEGATIVE (NEGATIVE); URINE PROTEIN NEGATIVE (NEGATIVE); URINE UROBILINOGEN NEGATIVE mg/dL (0.2-1.0)
[2017-10-01 13:07] LABS: ALK PHOS 138 U/L (45-117)
[2017-10-01] MEDS ORDERED: SODIUM CHLORIDE 0.9% 500 ML INFUS.BAG IV ONE (13:12)
[2017-10-01 13:13] LABS: EPI CELLS RARE /HPF (FEW)
[2017-10-01 17:28] LABS: ALBUMIN 3.2 g/dl (3.4-5.0); ANION GAP 10 (8-16); BILIRUBIN,TOTAL 0.3 mg/dL (0.2-1.0); BLOOD UREA NITROGEN 11 mg/dL (7-18); CALCIUM 8.1 mg/dL (8.5-10.1); CHLORIDE 99 mmol/L (98-107); CO2 24 mmol/L (21-32); CREATININE 0.7 mg/dL (0.55-1.02); GLUCOSE,RANDOM 118 mg/dL (74-106); POTASSIUM 3.9 mmol/L (3.5-5.1); SGOT/AST 122 U/L (15-37); SGPT/ALT 51 U/L (12-78); SODIUM 133 mmol/L (136-145); TOT PROT 6.6 g/dl (6.4-8.2)
[2017-10-01 17:39] LABS: ALK PHOS 152 U/L (45-117)
[2017-10-01 17:54] VITALS: BP 140/68; PULSE 69; TEMP 98.8
--- NOTE | 2017-10-01 19:14 | EKG ---
Test Reason : Blood Pressure : / mmHG Vent. Rate : 069 BPM Atrial Rate : 069 BPM P-R Int : 164 ms QRS Dur : 080 ms QT Int : 412 ms P-R-T Axes : 043 004 023 degrees QTc Int : 441 ms NORMAL SINUS RHYTHM NORMAL ECG Confirmed by MD JARON, UMBERTO ([id number]) on 10/01/2017 7:14:21 PM Referred By: Confirmed By:UMBERTO SALMERON MD
== END 2017-10-01 19:35 | disposition home or self-care (01) ==
LOC: JER 10:02
PROC: 3E033GC Introduction of Other Therapeutic Substance into Peripheral Vein, Percutaneous Approach (ICD-10-PCS; principal; 2017-10-01)
PROC: 3E033NZ Introduction of Analgesics, Hypnotics, Sedatives into Peripheral Vein, Percutaneous Approach (ICD-10-PCS; 2017-10-01)
DX: R07.89 Other chest pain (principal); I10 Essential (primary) hypertension; E11.9 Type 2 diabetes mellitus without complications; F41.8 Other specified anxiety disorders; E78.00 Pure hypercholesterolemia, unspecified; Z96.653 Presence of artificial knee joint, bilateral; I69.893 Ataxia following other cerebrovascular disease; I69.818 Other symptoms and signs involving cognitive functions following other cerebrovascular disease; Z87.19 Personal history of other diseases of the digestive system; Z85.841 Personal history of malignant neoplasm of brain
CPT/HCPCS: 36415; 71046-TC-FY; 80053; 81003; 81015; 82550; 82553; 83690; 84484; 85025; 87086; 93005; 93010; 96365; 96374; 99283-25; J0131

== ENCOUNTER 2017-10-05 06:48 | Emergency (ER) | payer OTHER ==
[2017-10-05 07:32] VITALS: BP 149/76; PULSE 80; TEMP 98.2; BMI 38.9
--- NOTE | 2017-10-05 07:32 | PDOC ---
History of Present Illness - General History Source: Patient Exam Limitations: Language Barrier - History of Present Illness Initial Comments: 10/05/17 07:54 71F with PMH of DM, HTN, and HLD, presenting with left sided breast pain since 10pm last night. Patient states that she all of a sudden had the pain. It is constant and tender when she palpates her left breast. The patient is well known to this ER with frequent visits for atypical chest pain. She was seen in our ED four days prior for a similar same issue. She also endorses constipation and some abdominal pain while trying to move her bowels. She denies nausea vomiting fever chills or shortness of breath. She denies urinary or symptoms. She denies trauma to the breast. <Ramírez Garber - Last Filed: 10/05/17 12:13> <Marni Durham - Last Filed: 10/05/17 14:08> - General Chief Complaint: Chest Pain Stated Complaint: PAIN Time Seen by Provider: 10/05/17 07:32 Past History - Past Medical History Anemia: Yes Asthma: No Cancer: No Cardiac Disorders: No 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, baseline confusion and dizziness) COPD: No CHF: No DVT: No Dementia: No Diabetes: Yes GI Disorders: Yes (gerd, gastric ulcer, dysphagia) Disorders: Yes (kidney stone in the past) HTN: Yes Hypercholesterolemia: Yes Liver Disease: No Psychiatric Problems: Yes (ANXIETY DEPRESSION) Seizures: Yes (S/P craniotomy for benign tumor - on Depakote for seizure prophylaxis) Thyroid Disease: No - Surgical History Abdominal Surgery: Yes Appendectomy: No Cardiac Surgery: No Cholecystectomy: Yes Lung Surgery: No Neurologic Surgery: Yes (removal left meningioma) Orthopedic Surgery: Yes (Bilateral knee replacement) - Immunization History Td Vaccination: Yes TDAP Vaccination: No Immunization Up to Date: No - Suicide/Smoking/Psychosocial Hx Smoking Status: No Smoking History: Never smoked Have you smoked in the past 12 months: No Number of Cigarettes Smoked Daily: 0 Cigars Per Day: 0 Information on smoking cessation initiated: No Hx Alcohol Use: No Drug/Substance Use Hx: No Substance Use Type: None Hx Substance Use Treatment: No <Ramírez Garber - Last Filed: 10/05/17 12:13> <Marni Durham - Last Filed: 10/05/17 14:08> - Past Medical History Allergies/Adverse Reactions: Allergies Allergy/AdvReac Type Severity Reaction Status Date / Time aspirin Allergy Severe "NERVOUS" Verified 10/05/17 07:23 morphine Allergy Severe "ANXIETY-DE Verified 10/05/17 07:23 SPERATION" Home Medications: Ambulatory Orders Escitalopram Oxalate [Lexapro -] 10 mg PO DAILY 03/10/16 Divalproex [Depakote -] 500 mg PO BID 12/15/16 Metoprolol Succinate [Toprol XL -] 25 mg PO DAILY #30 tab.sr.24h 02/06/17 Amlodipine Besylate [Norvasc -] 10 mg PO DAILY 06/27/17 Acetaminophen [Tylenol .Regular Strength -] 325 mg PO Q6H PRN #30 tablet Nitrofurantoin Monohyd/M-Cryst [Nitrofurantoin [place]-Mcr 100 mg] 100 mg PO BID 5 Days #9 capsule 09/23/17 Amox-Tr/K Cl [Augmentin - 500Mg Tablet] 1 tab PO BID 5 Days #10 tablet 09/27/17 Unobtainable 10/01/17 Review of Systems - Review of Systems Able to Perform ROS?: Yes Is the patient limited Citizen Of [place] proficient: Yes Constitutional: No: Symptoms Reported, See HPI, Chills, Diaphoresis, Fever, Loss of Appetite, Malaise, Night Sweats, Weakness, Weight Stable, Unintentional Wgt. Loss, Unexplained wgt Loss, Other HEENTM: No: Symptoms Reported, See HPI, Eye Pain, Blurred Vision, Tearing, Recent change in vision, Double Vision, Cataracts, Ear Pain, Ocular Prothesis, Ear Discharge, Nose Pain, Nose Congestion, Tinnitus, Nose Bleeding, Hearing Loss , Throat Pain, Throat Swelling, Mouth Pain, Dental Problems, Difficulty Swallowing, Mouth Swelling, Other Respiratory: No: Symptoms reported, See HPI, Cough, Orthopnea, Shortness of Breath, SOB with Exertion, SOB at Rest, Stridor, Wheezing, Productive cough, Hemoptysis, Other Cardiac (ROS): Yes: Other (left breast pain) ABD/GI: Yes: Abd. Pain w/ defecation, Constipated : No: Symptoms Reported, See HPI, Burning, Dysuria, Discharge, Frequency, Flank Pain, Hematuria, Incontinence, Pain, Urgency, Testicular Mass, Testicular Swelling, Lesions, Testicular Pain, Other Musculoskeletal: No: Symptoms Reported, See HPI, Back Pain, Gout, Joint Pain, Joint Swelling, Muscle Pain, Muscle Weakness, Neck Pain, Joint Stiffness, Other Integumentary: No: Symptoms Reported, See HPI, Bruising, Change in Color, Change in Hair/Nails, Dryness, Erythema, Flushing, Lesions, Lumps, Pallor, Pruritus, Rash, Sweating, Other Neurological: No: Symptoms reported, See HPI, Headache, Numbness, Paresthesia, Pre-Existing Deficit, Seizure, Tingling, Tremors, Weakness, Unsteady Gait, Ataxia, Dizziness, Other Psychiatric: Yes: Anxiety Endocrine: No: Symptoms Reported, See HPI, Excessive Sweating, Flushing, Intolerance to Cold, Intolerance to Heat, Increased Hunger, Increased Thirst, Increased Urine, Unexplained Weight Gain, Unexplained Weight Loss, Change in Weight, Other Hematologic/Lymphatic: No: Symptoms Reported, See HPI, Anemia, Blood Clots, Easy Bleeding, Easy Bruising, Bleeding Diathesis, Lymph Node Abnormalities, Swollen Glands, Other <Ramírez Garber - Last Filed: 10/05/17 12:13> *Physical Exam - Vital Signs Last Vital Signs Temp Pulse Resp BP Pulse Ox 98.2 F 80 18 149/76 100 10/05/17 07:24 10/05/17 07:24 10/05/17 07:24 10/05/17 07:10/05/17 07:24 - Physical Exam General Appearance: Yes: Nourished HEENT: positive: EOMI, KARL, Normal Voice Neck: positive: Trachea midline, Supple Respiratory/Chest: positive: Lungs Clear, Normal Breath Sounds. negative: Respiratory Distress, Accessory Muscle Use Cardiovascular: positive: Other (left breast tenderness no breast masses appreciated ) Gastrointestinal/Abdominal: positive: Soft, Tenderness (mild epigastriuc tenderness) Extremity: negative: Tender Integumentary: positive: Dry, Warm Neurologic: positive: Fully Oriented, Alert <Ramírez Garber - Last Filed: 10/05/17 12:13> - Vital Signs Last Vital Signs Temp Pulse Resp BP Pulse Ox 98.2 F 80 18 149/76 100 10/05/17 07:24 10/05/17 07:24 10/05/17 07:24 10/05/17 07:24 10/05/17 07:24 <Marni Durham - Last Filed: 10/05/17 14:08> Heart Score/ECG Review - ECG Impressions Comment:: 10/05/17 07:41 NSR @ 78BPM No ST-T wave changes <Ramírez Garber - Last Filed: 10/05/17 12:13> ED Treatment Course - LABORATORY CBC & Chemistry Diagram: 10/05/17 08:00 10/05/17 08:00 <Ramírez Garber - Last Filed: 10/05/17 12:13> - LABORATORY CBC & Chemistry Diagram: 10/05/17 08:00 10/05/17 08:00 - ADDITIONAL ORDERS Additional order review: Laboratory Results 10/05/17 10/05/17 08:00 08:00 PT with INR 11.40 INR 1.01 Sodium 127 L Potassium 4.6 Chloride 90 L Carbon Dioxide 26 Anion Gap 11 BUN 14 Creatinine 0.6 Creat Clearance w eGFR > 60 Random Glucose 101 Calcium 8.9 Magnesium 2.4 Total Bilirubin 0.4 AST 38 H ALT 51 Alkaline Phosphatase 179 H D Troponin I < 0.02 Total Protein 7.3 Albumin 3.6 Lipase 397 H 10/05/17 08:00 RBC 4.45 MCV 73.9 L MCHC 31.8 L RDW 18.8 H MPV 6.8 L Neutrophils % 64.4 Lymphocytes % 18.5 D Monocytes % 14.8 H Eosinophils % 1.5 Basophils % 0.8 - Medications Given in the ED: ED Medications Discontinued Medications Generic Name Dose Route Start Last Admin Trade Name Yonathanq PRN Reason Stop Dose Admin Ibuprofen 600 mg 10/05/17 08:26 10/05/17 08:37 Motrin - PO 10/05/17 08:27 600 mg ONCE ONE Administration <Marni Durham - Last Filed: 10/05/17 14:08> Medical Decision Making - Medical Decision Making 10/05/17 07:39 71F who presents to the ED with left breast pain. Patient has been worked up multiple times with a negative work up. Stress test done in May of this year and was negative. Will do: CBC CMP Mg PT/INR Cardiac profile EKG CXR 10/05/17 09:16 labs noted hponatremia and hypochloremia at baseline when compared to prior labs Lipase 397 Alk Phos slightly elevated CXR WNL will do breast US of the left side <Ramírez Garber - Last Filed: 10/05/17 12:13> *DC/Admit/Observation/Transfer - Discharge Dispostion Decision to Admit order: No <Ramírez Garber - Last Filed: 10/05/17 12:13> - Discharge Dispostion Decision to Admit order: No <Marni Durham - Last Filed: 10/05/17 14:08> Diagnosis at time of Disposition: Mastalgia in female, Abdominal pain - Discharge Dispostion Disposition: HOME Condition at time of disposition: Stable - Referrals Referrals: Waldo Mabry MD [Primary Care Provider] - Call tomorrow - Patient Instructions Printed Discharge Instructions: DI for Abdominal Pain-Adult, DI for Breast Pain (Mastalgia), DI for Atypical Chest Pain, Increased Dietary Fiber May Improve Constipation Conditions With Pelvic Navdeep, DI for Constipation Additional Instructions: you were seen in the emergency room for breast pain. An ultrasound of your breast was done which did not show any acute pathology. go to the nearest emergency room if your symptoms worsen. Follow up with your primary care doctor as soon as possible. Continue your home medications. te vieron en la leah de emergencias por dolor de senos. Se realiz tavo ecografa de perla mama que no mostr ninguna patologa aguda. vaya a la leah de emergencias ms cercana si devorah sntomas empeoran. [place] un seguimiento con perla mdico de atencin primaria lo antes posible. Contina tus medicamentos en casa. Print Language: ALBANIAN - Post Discharge Activity
[2017-10-05] MEDS ORDERED: IBUPROFEN 600 MG TABLET (FP) PO ONE ×2 (08:26→08:29)
[2017-10-05 08:34] LABS: BASO % 0.8 % (0-2.0); EOS % 1.5 % (0-4.5); HEMATOCRIT 32.9 % (32.4-45.2); HEMOGLOBIN 10.5 GM/dL (10.7-15.3); LYMPH % 18.5 % (8-40); MCH 23.5 pg (25.7-33.7); MCHC 31.8 g/dl (32.0-36.0); MEAN CELL VOLUME 73.9 fl (80-96); MEAN PLT VOLUME 6.8 fl (7.5-11.1); MONO % 14.8 % (3.8-10.2); NEUT % 64.4 % (42.8-82.8); PLATELET COUNT 323 K/MM3 (134-434); RBC 4.45 M/mm3 (3.60-5.2); RDW 18.8 % (11.6-15.6); WHITE BLOOD COUNT 5.5 K/mm3 (4.0-10.0)
[2017-10-05 08:46] LABS: INR 1.01 (0.83-1.09); PROTHROMBIN TIME (PATIENT) 11.4 SEC (9.7-13.0)
[2017-10-05 09:02] LABS: ALBUMIN 3.6 g/dl (3.4-5.0); ANION GAP 11 MMOL/L (8-16); BILIRUBIN,TOTAL 0.4 mg/dL (0.2-1.0); BLOOD UREA NITROGEN 14 mg/dL (7-18); CALCIUM 8.9 mg/dL (8.5-10.1); CHLORIDE 90 mmol/L (98-107); CO2 26 mmol/L (21-32); CREATININE 0.6 mg/dL (0.55-1.02); GLUCOSE,RANDOM 101 mg/dL (74-106); MAGNESIUM 2.4 mg/dL (1.8-2.4); POTASSIUM 4.6 mmol/L (3.5-5.1); SGOT/AST 38 U/L (15-37); SGPT/ALT 51 U/L (12-78); SODIUM 127 mmol/L (136-145); TOT PROT 7.3 g/dl (6.4-8.2)
[2017-10-05 09:05] LABS: ALK PHOS 179 U/L (45-117)
[2017-10-05 09:11] LABS: LIPASE 397 U/L (73-393)
--- NOTE | 2017-10-05 11:40 | PDOC ---
Attending Attestation - HPI HPI: 10/05/17 11:45 The patient is a 71 year old female well known to the ED, with PMH of well known to our department for atypical chest pain presentations (negative nuclear stress test performed May 2017), HLD, DM, and HTN, who presents with left sided breast pain since 10pm last night. The patient describes the left sided pain as constant and tender upon palpation of her breasts. Pt reports a 1 day hx of associated symptoms of constipation w\ mild abdominal pain. The patient denies breast trauma, shortness of breath, headache, dizziness, fever, chills, nausea, and vomiting. Allergies: aspirin, morphine. - Physicial Exam PE: NAD, well appearing, MMM, nl conjunctiva, anicteric; neck supple. lungs clear, RRR, Chest: (+)Left breast tenderness without skin changes and no palpable fluctuance or firmness. (+)Obese abdomen, mild epigastric tenderness.STRAUSS x4, no focal neuro deficits. No peripheral edema. normal color for ethnicity, WWP. <BillieRoger - Last Filed: 10/05/17 11:42> - Resident Resident Name: Ramírez Garber - ED Attending Attestation I have performed the following: I have examined & evaluated the patient, The case was reviewed & discussed with the resident, I agree w/resident's findings & plan - Medical Decision Making 10/05/17 13:10 [place] 71F hx of DM, HTN, and HLD, well known to our department for atypical chest pain presentations (negative nuclear stress test performed May 2017) p/ w left breast pain since last night, no trauma. No fevers. Also ? abdominal pain and constipation x 1 day. DDx. ACS, angina, PUD, esophageal spasm, GERD, pancreatitis, hepatitis, electrolyte/metabolic derangements, costochondritis, mastitis, breast abscess/ cyst. EKG normal sinus rhythm, no interval abnormalities, narrow QRS, ST and T wave segments and morphology normal. Nonspecific T wave abnormalities in III, no contiguous lead changes Labs and lytes wnl, chronically low sodium but asymptomatic (has been as low as 128), lipase borderline but not higher significantly to suggest pancreatitis. Trop neg, EKG similar to prior, no ischemic changes. Doubt ACS or angina given history of neg stress test. Breast US negative for pathology, no abscess or fluid collection, no s/s to suggest mastitis. Pt informed of my clinical impression, treatment recommendations and disposition plan. All questions answered to patient's satisfaction and expressed understanding and comfort with this. Reasons for returning to the ED sooner discussed with the patient otherwise, follow up with primary care physician. At the time of discharge, the patient is alert, clinically improved, tolerating po and verbalizes understanding of instructions. Bowel regimen discussed. Diet modifications and supportive care, high fiber diet. information provided in Citizen Of [place]. 10/05/17 14:15 10/05/17 14:18 <Marni Durham - Last Filed: 10/05/17 14:18> Attestations - Attestations Documentation prepared by Roger Wise, acting as medical office supervisor for Marni Durham MD. <Roger Wise - Last Filed: 10/05/17 11:42>
--- NOTE | 2017-10-05 15:24 | EKG ---
Test Reason : Blood Pressure : / mmHG Vent. Rate : 078 BPM Atrial Rate : 078 BPM P-R Int : 164 ms QRS Dur : 084 ms QT Int : 386 ms P-R-T Axes : 039 002 023 degrees QTc Int : 440 ms NORMAL SINUS RHYTHM NORMAL ECG WHEN COMPARED WITH ECG OF 01-OCT-2017 10:38, NO SIGNIFICANT CHANGE WAS FOUND Confirmed by Allison Jonas ([id number]) on 10/05/2017 3:23:51 PM Referred By: Confirmed By:Allison Jonas
== END 2017-10-05 14:29 | disposition home or self-care (01) ==
LOC: JER 06:48
DX: N64.4 Mastodynia (principal); K59.00 Constipation, unspecified; R10.84 Generalized abdominal pain; E87.1 Hypo-osmolality and hyponatremia; E87.8 Other disorders of electrolyte and fluid balance, not elsewhere classified; I10 Essential (primary) hypertension; E11.9 Type 2 diabetes mellitus without complications; E78.00 Pure hypercholesterolemia, unspecified; F41.9 Anxiety disorder, unspecified; Z87.19 Personal history of other diseases of the digestive system; Z87.442 Personal history of urinary calculi; Z96.653 Presence of artificial knee joint, bilateral; I69.818 Other symptoms and signs involving cognitive functions following other cerebrovascular disease; I69.893 Ataxia following other cerebrovascular disease; Z86.011 Personal history of benign neoplasm of the brain
CPT/HCPCS: 36415; 71046-TC-FY; 76641-TC-LT; 80053; 83690; 83735; 84484; 85025; 85610; 93005; 93010; 99282-25; 99284-25

== ENCOUNTER 2017-10-11 17:18 | Observation (INO) | payer OTHER ==
--- NOTE | 2017-10-11 17:41 | PDOC ---
Rapid Medical Evaluation Time Seen by Provider: 10/11/17 17:38 Medical Evaluation: Allergies Allergy/AdvReac Type Severity Reaction Status Date / Time aspirin Allergy Severe "NERVOUS" Verified 10/05/17 15:20 morphine Allergy Severe "ANXIETY-DE Verified 10/05/17 15:20 SPERATION" 10/11/17 17:38 The patient c/o: left sided CP since last night worse with deep breathing/ movement, took tylenol with no relief The patient on brief exam: reproducible MCL tenderness at 5th -6th rib the patient was ordered for: ekg, labs, The patient to proceed to the ED Discharge Disposition - Diagnosis Chest pain - Referrals - Patient Instructions - Post Discharge Activity
[2017-10-11 17:54] VITALS: BMI 32.4
--- NOTE | 2017-10-11 20:21 | PDOC ---
Attending Attestation - [facility] HPI: 10/11/17 20:35 The patient is a 71 year old female presenting with her family, with a significant past medical history of DM, CAD, HTN, and HLD, well known to our department for atypical chest pain presentations (negative nuclear stress test performed May 2017), who presents to the ED complaining of chest pain and headache onset today. The patient is a frequent visitor to the ED for the same complaints. She notes that these are the same pains that she always has when she comes to the ED. [facility] placement was discussed with the patient but the patient refuses and has refused multiple times in the past. The patient denies shortness of breath, dizziness, fever, chills, nausea, vomiting, diarrhea or constipation. Allergies: Aspirin Morphine Past surgical history: Bilateral knee replacement, craniotomy, cholecystectomy Social History: No alcohol, tobacco or drug use reported - Physicial Exam PE: 10/11/17 20:35 Constitutional: Awake, alert, oriented. No acute distress. Head: Normocephalic. Atraumatic Eyes: PERRL. EOMI. Conjunctivae are not pale. ENT: Mucous membranes are moist and intact. Posterior pharynx without exudates or erythema. Uvula midline. Neck: Supple. Full ROM. No lymphadenopathy. Cardiovascular: Regular rate. Regular rhythm. S1, S2 regular. Distal pulses are 2+ and symmetric. Pulmonary/Chest: No evidence of respiratory distress. Clear to auscultation bilaterally No wheezing, rales or rhonchi. Abdominal: Soft and non-distended. There is no tenderness. No rebound, guarding or rigidity. No organomegaly. No palpable masses. Good bowel sounds. Back: No CVA tenderness. Musculoskeletal: No edema. No cyanosis. No clubbing. Full range of motion in all extremities. Nocalf tenderness. Radial/pedal pulses are intact and 2+ bilaterally Skin: Skin is warm and dry. No petechiae. No purpura. Neurological: Alert and oriented to person, place, and time. Cranial nerves II -XII are grossly intact. Normal speech. Strength is grossly symmetric. No sensory deficits. (+) Ambulates with a walker. Psychiatric: Good eye contact. Normal interaction, affect and behavior. <Eamon Shaw - Last Filed: 10/11/17 20:35> - Resident Resident Name: Damian Luevano - ED Attending Attestation I have performed the following: I have examined & evaluated the patient, The case was reviewed & discussed with the resident, I agree w/resident's findings & plan, Exceptions are as noted - Medical Decision Making 10/11/17 20:15 I, Dr. Magnolia Higgins, DO, attest that this document has been prepared under my direction and personally reviewed by me in its entirety. I further attest, that it accurately reflects all work, treatment, procedures and medical decision -making performed by me. 10/11/17 20:16 a/p: 71yo female with cp and javed -pt with hx of cad -ambulatory in the ED without acute distress -nephew at the bedside -discussion about NH placement with the nephew -pt refusing to go -pt states she wants to live at home and is happy with her aides at home -pt presents daily for cp/javed - no new complaints today -states she wants to go home today 10/11/17 21:24 pt with low sodium on labs low chloride will admit for hyponatremia, cp, javed will start ivf hdyration will send ua discussed staying in the hospital for further eval and treatment of hypontreamia pt agrees to stay for further eval <Magnolia Higgins - Last Filed: 10/11/17 21:25> Heart Score/ECG Review - ECG Intrepretation Comment:: 10/11/17 20:20 sinus at 84, nl axis, nl interval, no acute st/t wave findings <Magnolia Higgins - Last Filed: 10/11/17 21:25>
[2017-10-11 20:23] LABS: BASO % 0.5 % (0-2.0); EOS % 0.7 % (0-4.5); HEMATOCRIT 34.6 % (32.4-45.2); LYMPH % 13.8 % (8-40); MCH 23.5 pg (25.7-33.7); MCHC 31.8 g/dl (32.0-36.0); MEAN CELL VOLUME 73.7 fl (80-96); MONO % 10.3 % (3.8-10.2); NEUT % 74.7 % (42.8-82.8); PLATELET COUNT 328 K/MM3 (134-434); RDW 20.1 % (11.6-15.6); WHITE BLOOD COUNT 5.6 K/mm3 (4.0-10.0)
[2017-10-11 20:34] LABS: INR 1.04 (0.83-1.09); PROTHROMBIN TIME (PATIENT) 11.8 SEC (9.7-13.0)
--- NOTE | 2017-10-11 20:34 | PDOC ---
History of Present Illness - General Chief Complaint: Chest Pain Stated Complaint: CHEST PAIN Time Seen by Provider: 10/11/17 17:38 History Source: Patient Exam Limitations: No Limitations - History of Present Illness Initial Comments: Ms. Sumner is a 71 yo F with a pertinent past medical hx of CAD, HTN, DM, HLD, and brain cancer (2009) who is well known to the department presents with atypical chest pain that has been ongoing since last night. She states it is on the left side of the chest wall, without radiation, without relief with tylenol , and increases in intensity with deep breathing, and is characterized as sharp 7/10, This patient has similar chief complaints in previous visits to the ED where her last cardiac work up was in 05/2017 (negative nuclear stress test). She endorses having increased weakness lately with associative headache and nausea. The patient was accompanied by her nephew and intermediate arrangements were once again offered, but refused by Ms. Sumner as she has in the past. Pmhx: Refer to above Shx: knee replacement bilaterally 3 yrs ago. Social hx: Denies tobacco, alcohol, and substance abuse. Past History - Past Medical History Allergies/Adverse Reactions: Allergies Allergy/AdvReac Type Severity Reaction Status Date / Time aspirin Allergy Severe "NERVOUS" Verified 10/11/17 17:42 morphine Allergy Severe "ANXIETY-DE Verified 10/11/17 17:42 SPERATION" Home Medications: Ambulatory Orders Escitalopram Oxalate [Lexapro -] 10 mg PO DAILY 03/10/16 Divalproex [Depakote -] 500 mg PO BID 12/15/16 Metoprolol Succinate [Toprol XL -] 25 mg PO DAILY #30 tab.sr.24h 02/06/17 Amlodipine Besylate [Norvasc -] 10 mg PO DAILY 06/27/17 Acetaminophen [Tylenol .Regular Strength -] 325 mg PO Q6H PRN #30 tablet Nitrofurantoin Monohyd/M-Cryst [Nitrofurantoin [place]-Mcr 100 mg] 100 mg PO BID 5 Days #9 capsule 09/23/17 Amox-Tr/K Cl [Augmentin - 500Mg Tablet] 1 tab PO BID 5 Days #10 tablet 09/27/17 Unobtainable 10/01/17 Anemia: Yes Asthma: No Cancer: No Cardiac Disorders: No 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, baseline confusion and dizziness) COPD: No CHF: No DVT: No Dementia: No Diabetes: Yes GI Disorders: Yes (gerd, gastric ulcer, dysphagia) Disorders: Yes (kidney stone in the past) HTN: Yes Hypercholesterolemia: Yes Liver Disease: No Psychiatric Problems: Yes (ANXIETY DEPRESSION) Seizures: Yes (S/P craniotomy for benign tumor - on Depakote for seizure prophylaxis) Thyroid Disease: No - Surgical History Abdominal Surgery: Yes Appendectomy: No Cardiac Surgery: No Cholecystectomy: Yes Lung Surgery: No Neurologic Surgery: Yes (removal left meningioma) Orthopedic Surgery: Yes (Bilateral knee replacement) - Immunization History Td Vaccination: Yes TDAP Vaccination: No Immunization Up to Date: No - Suicide/Smoking/Psychosocial Hx Smoking Status: No Smoking History: Never smoked Have you smoked in the past 12 months: No Number of Cigarettes Smoked Daily: 0 Cigars Per Day: 0 Hx Alcohol Use: No Drug/Substance Use Hx: No Substance Use Type: None Hx Substance Use Treatment: No Review of Systems - Review of Systems Constitutional: Yes: Weakness. No: Chills, Diaphoresis, Fever HEENTM: No: Recent change in vision, Ear Pain, Nose Pain, Throat Pain, Mouth Pain Respiratory: No: Cough, Shortness of Breath, Hemoptysis Cardiac (ROS): Yes: Chest Pain. No: Lightheadedness, Palpitations, Syncope, Chest Tightness ABD/GI: Yes: Nausea. No: Constipated, Diarrhea, Rectal Bleeding, Vomiting, Tarry Stools : No: Burning, Dysuria, Hematuria Musculoskeletal: No: Back Pain Integumentary: No: Rash Neurological: Yes: Headache. No: Numbness, Paresthesia, Unsteady Gait, Dizziness Psychiatric: Yes: Anxiety, Depression Endocrine: No: Unexplained Weight Gain Hematologic/Lymphatic: No: Anemia *Physical Exam - Vital Signs Last Vital Signs Temp Pulse Resp BP Pulse Ox 98.8 F 90 19 126/78 95 10/11/17 17:42 10/11/17 17:42 10/11/17 17:42 10/11/17 17:42 10/11/17 17:42 - Physical Exam General Appearance: Yes: Nourished, Appropriately Dressed HEENT: positive: EOMI, KARL, Normal Voice Neck: positive: Trachea midline. negative: Lymphadenopathy (R), Lymphadenopathy (L) Respiratory/Chest: positive: Lungs Clear, Normal Breath Sounds Cardiovascular: positive: Regular Rhythm, Regular Rate, S1, S2, Systolic Murmur (grade 1) Vascular Pulses: Dorsalis-Pedis (R): 3+, Doralis-Pedis (L): 3+ Gastrointestinal/Abdominal: positive: Normal Bowel Sounds, Tender (epigastric region) Lymphatic: negative: Adenopathy Musculoskeletal: positive: Normal Inspection. negative: CVA Tenderness, CVA Tenderness (R), CVA Tenderness (L) Extremity: positive: Normal Capillary Refill, Normal Inspection, Normal Range of Motion Integumentary: positive: Normal Color, Dry, Warm Neurologic: positive: raise miner II-XII NML intact, Fully Oriented, Alert, Normal Mood/ Affect, Normal Response, Motor Strength 5/5 Heart Score/ECG Review - History History: Slightly suspicious - Electrocardiogram EKG: Normal - Age Age: >/= 65 - Risk Factors Risk Factors Heart Score: Yes Hx Hypercholesterolemia, Yes Hx Hypertension, Yes Hx Obesity Based on the list above the patient has:: >/=3 risk factors or Hx atherosclerotic disease - Troponin Troponin: </= normal limit - Score Heart Score - Total: 4 - ECG Intrepretation Comment:: sinus rhythm at [address] elevations or depressions noted. ED Treatment Course - LABORATORY CBC & Chemistry Diagram: 10/12/17 06:25 10/12/17 06:25 - ADDITIONAL ORDERS Additional order review: 10/11/17 20:00 RBC 4.70 MCV 73.7 L MCHC 31.8 L RDW 20.1 H MPV 7.0 L Neutrophils % 74.7 Lymphocytes % 13.8 D Monocytes % 10.3 H Eosinophils % 0.7 Basophils % 0.5 Medical Decision Making - Medical Decision Making 71 yo F with hx of CAD, HTN, HLD presenting with chest pain and well known to ED department. Initial vitals: Initial Vital Signs Temp Pulse Resp BP Pulse Ox 98.8 F 90 19 126/78 95 10/11/17 17:42 10/11/17 17:42 10/11/17 17:42 10/11/17 17:42 10/11/17 17:42 Work up" Laboratory Results - last 24 hr 10/11/17 10/11/17 10/11/17 00:25 20:00 20:00 WBC 5.6 RBC 4.70 Hgb 11.0 Hct 34.6 MCV 73.7 L MCH 23.5 L MCHC 31.8 L RDW 20.1 H Plt Count 328 MPV 7.0 L Absolute Neuts (auto) 4.2 Neutrophils % 74.7 Lymphocytes % 13.8 D Monocytes % 10.3 H Eosinophils % 0.7 Basophils % 0.5 Nucleated RBC % 0 PT with INR 11.80 INR 1.04 Sodium Potassium Chloride Carbon Dioxide Anion Gap BUN Creatinine Creat Clearance w eGFR Random Glucose Calcium Magnesium Total Bilirubin AST ALT Alkaline Phosphatase Creatine Kinase Troponin I Total Protein Albumin Urine Color Dkyellow Urine Appearance Slcloudy Urine pH 5.0 Ur Specific [place] 1.026 Urine Protein Negative Urine Glucose (UA) Negative Urine Ketones Negative Urine Blood Negative Urine Nitrite Negative Urine Bilirubin Negative Urine Urobilinogen 2.0 H Ur Leukocyte Esterase 2+ H Urine WBC (Auto) 41 Urine RBC (Auto) 6 Ur Epithelial Cells Rare Urine Bacteria Rare Hyaline Casts 7 Urine Mucus Few 10/11/17 20:00 WBC RBC Hgb Hct MCV MCH MCHC RDW Plt Count MPV Absolute Neuts (auto) Neutrophils % Lymphocytes % Monocytes % Eosinophils % Basophils % Nucleated RBC % PT with INR INR Sodium 125 L Potassium 3.9 Chloride 90 L Carbon Dioxide 22 Anion Gap 13 BUN 8 Creatinine 0.6 Creat Clearance w eGFR > 60 Random Glucose 123 H Calcium 8.9 Magnesium 2.0 Total Bilirubin 0.6 AST 40 H ALT 79 H Alkaline Phosphatase 144 H D Creatine Kinase 58 Troponin I < 0.02 Total Protein 7.3 Albumin 3.6 Urine Color Urine Appearance Urine pH Ur Specific [place] Urine Protein Urine Glucose (UA) Urine Ketones Urine Blood Urine Nitrite Urine Bilirubin Urine Urobilinogen Ur Leukocyte Esterase Urine WBC (Auto) Urine RBC (Auto) Ur Epithelial Cells Urine Bacteria Hyaline Casts Urine Mucus On CMP, sodium at 125 and chloride at 90, both of which are low. Based on these new findings that differ from her usual work up and hx, she will be admitted for hyponatremia in setting of chest pain and headache. Given 1 L ns. *DC/Admit/Observation/Transfer Diagnosis at time of Disposition: Hyponatremia Chest pain Qualifiers: Chest pain type: unspecified Qualified Code(s): R07.9 - Chest pain, unspecified - Discharge Dispostion Decision to Admit order: Yes - Referrals - Patient Instructions - Post Discharge Activity
[2017-10-11 20:45] LABS: ALBUMIN 3.6 g/dl (3.4-5.0); ANION GAP 13 MMOL/L (8-16); BLOOD UREA NITROGEN 8 mg/dL (7-18); CALCIUM 8.9 mg/dL (8.5-10.1); CHLORIDE 90 mmol/L (98-107); CO2 22 mmol/L (21-32); CREATININE 0.6 mg/dL (0.55-1.02); GLUCOSE,RANDOM 123 mg/dL (74-106); POTASSIUM 3.9 mmol/L (3.5-5.1); SGOT/AST 40 U/L (15-37); SGPT/ALT 79 U/L (12-78); SODIUM 125 mmol/L (136-145)
[2017-10-11 20:49] LABS: ALK PHOS 144 U/L (45-117); BILIRUBIN,TOTAL 0.6 mg/dL (0.2-1.0); TOT PROT 7.3 g/dl (6.4-8.2)
[2017-10-11] MEDS ORDERED: SODIUM CHLORIDE 0.9% 1000 ML INFUS.BAG IV ONE (20:59)
[2017-10-11] MEDS ORDERED: ACETAMINOPHEN 325 MG TABLET (FP) PO ONE (21:30)
[2017-10-11] MEDS ORDERED: ACETAMINOPHEN 325 MG TABLET (FP) ONE (21:47)
[2017-10-11] MEDS ORDERED: LORazepam 1 MG TABLET PO ONE (22:41)
--- NOTE | 2017-10-11 22:55 | PN ---
Teaching Attending Note Name of Resident: Joann Anand ATTENDING PHYSICIAN STATEMENT I saw and evaluated the patient. I reviewed the resident's note and discussed the case with the resident. I agree with the resident's findings and plan as documented. SUBJECTIVE: Patient is a 71 year old woman with a significant past medical history of DM, CAD, HTN, and HLD, with multiple ER visits for atypical chest pain presentations (negative nuclear stress test performed May 2017), who presents to the ER complaining of chest pain and headache onset today. The patient is a frequent visitor to the ER for the same complaints. She notes that these are the same pains that she always has when she comes to the ER. No other associated major symptom and she is painfree at he tme of my interview. OBJECTIVE: Alert Vital Signs Period Temp Pulse Resp BP Sys/Christensen Pulse Ox Last 24 Hr 98.8 F 90 19 126/78 95 HEENT: No Jaundice, eye redness or discharge, PERRLA, EOMI. Normocephalic, atraumatic. External ears are normal and hearing is grossly intact. No nasal discharge. Neck: Supple, nontender. No palpable adenopathy or thyromegaly. No JVD Chest: Good effort. Clear to auscultation and percussion. Heart: Regular. No S3, rub or murmur Abdomen: Not distended, soft, tender epigastrium and no HSM. No rebound or guarding. Normoactive bowel sounds. Ext: Peripheral pulses intact. No leg edema. Skin: Warm and dry. No petechiae, rash or ecchymosis. Neuro: Alert. Oriented x3. CN 2-12 grossly intact. Sensation grossly intact in all four extremities and DTR are symmetric. Home Medications Medication Instructions Recorded Escitalopram Oxalate [Lexapro -] 10 mg PO DAILY 03/10/16 Divalproex [Depakote -] 500 mg PO BID 12/15/16 Metoprolol Succinate [Toprol XL -] 25 mg PO DAILY #30 tab.sr.24h 02/06/17 Amlodipine Besylate [Norvasc -] 10 mg PO DAILY 06/27/17 Acetaminophen [Tylenol .Regular 325 mg PO Q6H PRN #30 tablet 08/16/17 Strength -] Nitrofurantoin Monohyd/M-Cryst 100 mg PO BID 5 Days #9 capsule 09/23/17 [Nitrofurantoin [place]-Mcr 100 mg] Amox-Tr/K Cl [Augmentin - 500Mg 1 tab PO BID 5 Days #10 tablet 09/27/17 Tablet] Unobtainable 10/01/17 Abnormal Lab Results 10/11/17 10/11/17 20:00 20:00 MCV 73.7 L MCH 23.5 L MCHC 31.8 L RDW 20.1 H MPV 7.0 L Monocytes % 10.3 H Sodium 125 L Chloride 90 L Random Glucose 123 H AST 40 H ALT 79 H Alkaline Phosphatase 144 H D ASSESSMENT AND PLAN: 1. Chest pain - Troponin is negative and no acute changes of ACS on EKG. Pain is mostly epigastric today and elevated LFTs are unexplained. Abdominal sonogram pending. Will consult GI for possible EGD and treat with IV protonix. Get hepatitis serology, HbA1c and neurology consult for chronic headache. Had a recent head CT that was negative for acute pathology. 2. Hyponatremia - Low sodium is chronic and does not appear that it has been worked up. No obvious cause. Will check TFT, urine osmolarity and urine sodium. Got 1 liter bolus IV NS in the ER. Will repeat BMP stat, before anymore IV NS to avoid a rapid rise in the serum sodium. Restrict free water intake to less than 800 ml/day and ensure a balanced diet and adequate protein intake. Consult nephrology. 3. DVT prophylaxis - Lovenox 40 mg SQ q 24 hours. 4. Advance directives - Full code
[2017-10-11] MEDS ORDERED: LORazepam 0.5 MG TABLET ONE (23:39)
[2017-10-12] MEDS ORDERED: ACETAMINOPHEN 325 MG TABLET (FP) PO PRN (00:37)
[2017-10-12 00:42] LABS: URINE APPEARANCE SLCLOUDY; URINE BILIRUBIN NEGATIVE (<2.0 mg/dL); URINE COLOR DKYELLOW; URINE GLUCOSE (UA) NEGATIVE (NEGATIVE); URINE KETONE NEGATIVE (NEGATIVE); URINE NITRITE NEGATIVE (NEGATIVE); URINE PROTEIN NEGATIVE (NEGATIVE)
[2017-10-12 01:04] LABS: URINE LEUK ESTERASE 2+ (NEGATIVE)
[2017-10-12 01:05] LABS: EPI CELLS RARE /HPF (FEW); URINE BACTERIA RARE /hpf (NONE SEEN); URINE HYALINE CAST 7 /lpf; URINE MUCUS FEW
--- NOTE | 2017-10-12 01:47 | HP ---
CHIEF COMPLAINT: Chest Pain, Abdominal Pain, Headache PCP: Dr. Morgan HISTORY OF PRESENT ILLNESS: 71 y/o yakut speaking female (Hop Weigher Hael [id number]) with PMHx of CAD, HTN, HLD, DM, Removal of Left Meningioma, ?CVA, Anemia, GERD, Kidney Stones, Anxiety , presents with left sided chest pain since last night. She describes the pain as constant, sharp, 8/10 between ribs 3-6 mid claviclular line and does not radiate anywhere and came on all of a sudden. She has a hx of multiple visits due to chest pain, however this time the pain hurts more. The chest pain is reproducible but does not change with position or breathing. She has not identified any triggers. She has additionally been having Midepigastric pain since last night. She describes this as a constant pressure in her belly that does not travel anywhere. As a result, the patient has not eaten throughout the day and has had decreased water consumption. She is also complaining of pressure in her head. She has a hx of chronic headaches but the pain today is much worse. It is present at the frontal region, 7-8/10, that does not radiate. She has tried tylenol but it has not provided any relief. This is additionally accompanied by feeling more weak and nausea. She denies any SOB, diaphoresis, Dizziness, vomiting, Fevers, chills, numbness or tingling. She has had no recent trauma, falls or rashes. She denies any recent changes to her diet, feelings of anxiety or increase in stress. ER course was notable for: (1) CXR, Abdominal US (2) EKG Sinus with PAC's, VR 84 (3) Ativan 1mg, NS, Tylenol Recent Travel: Denies PAST MEDICAL HISTORY: CAD HTN HLD DM Removal of Left Meningioma ?CVA Anemia GERD Kidney Stones Anxiety PAST SURGICAL HISTORY: Bilateral Knee Replacements Carniotomy Cholecystectomy Social History: Smoking: denies Alcohol: denies Drugs: denies Ambulates with walker; presently in wheel chair Residence at home, has a home health aide Family History: DM Allergies aspirin Allergy (Severe, Verified 10/11/17 17:42) "NERVOUS" morphine Allergy (Severe, Verified 10/11/17 17:42) "ANXIETY-DESPERATION" HOME MEDICATIONS: Home Medications Medication Instructions Recorded Escitalopram Oxalate [Lexapro -] 10 mg PO DAILY 03/10/16 Divalproex [Depakote -] 500 mg PO BID 12/15/16 Metoprolol Succinate [Toprol XL -] 25 mg PO DAILY #30 tab.sr.24h 02/06/17 Amlodipine Besylate [Norvasc -] 10 mg PO DAILY 06/27/17 Acetaminophen [Tylenol .Regular 325 mg PO Q6H PRN #30 tablet 08/16/17 Strength -] Nitrofurantoin Monohyd/M-Cryst 100 mg PO BID 5 Days #9 capsule 09/23/17 [Nitrofurantoin [place]-Mcr 100 mg] Amox-Tr/K Cl [Augmentin - 500Mg 1 tab PO BID 5 Days #10 tablet 09/27/17 Tablet] Unobtainable 10/01/17 REVIEW OF SYSTEMS CONSTITUTIONAL: Present: generalized weakness Absent: fever, chills, diaphoresis, malaise, loss of appetite, weight change HEENT: Absent: rhinorrhea, nasal congestion, throat pain, throat swelling, difficulty swallowing, mouth swelling, ear pain, eye pain, visual changes CARDIOVASCULAR: Present: Chest Pain Absent: syncope, palpitations, irregular heart rate, lightheadedness, peripheral edema RESPIRATORY: Absent: cough, shortness of breath, dyspnea with exertion, orthopnea, wheezing, stridor, hemoptysis GASTROINTESTINAL: Present: abdominal pain, Nausea Absent: abdominal distension, vomiting, diarrhea, constipation, melena, hematochezia GENITOURINARY: Absent: dysuria, frequency, urgency, hesitancy, hematuria, flank pain, genital pain MUSCULOSKELETAL: Absent: myalgia, arthralgia, joint swelling, back pain, neck pain SKIN: Absent: rash, itching, pallor HEMATOLOGIC/IMMUNOLOGIC: Absent: easy bleeding, easy bruising, lymphadenopathy, frequent infections ENDOCRINE: Absent: unexplained weight gain, unexplained weight loss, heat intolerance, cold intolerance NEUROLOGIC: Present: Headache Absent: focal weakness or paresthesias, dizziness, unsteady gait, seizure, mental status changes, bladder or bowel incontinence PSYCHIATRIC: Absent: anxiety, depression, suicidal or homicidal ideation, hallucinations. PHYSICAL EXAMINATION Vital Signs - 24 hr 10/11/17 17:42 Temperature 98.8 F Pulse Rate 90 Respiratory 19 Rate Blood Pressure 126/78 O2 Sat by Pulse 95 Oximetry (%) GENERAL: Awake, alert, and fully oriented, in no acute distress. HEAD: NCAT EYES: PERRLA, EOMI THROAT: Oropharynx clear without exudates. Moist mucous membranes. NECK: No JVD LUNGS: Breath sounds equal, clear to auscultation bilaterally. No wheezes, and no crackles. HEART: Regular rate and rhythm, normal S1 and S2 without murmur ABDOMEN: Soft, nontender, not distended, normoactive bowel sounds, no guarding, no rebound MUSCULOSKELETAL: No CVA tenderness. EXTREMITIES: 2+ pulses, No calf tenderness. No peripheral edema. SKIN: Warm, dry, no rashes or lesions noted Laboratory Results - last 24 hr 10/11/17 10/11/17 10/11/17 00:25 20:00 20:00 WBC 5.6 RBC 4.70 Hgb 11.0 Hct 34.6 MCV 73.7 L MCH 23.5 L MCHC 31.8 L RDW 20.1 H Plt Count 328 MPV 7.0 L Absolute Neuts (auto) 4.2 Neutrophils % 74.7 Lymphocytes % 13.8 D Monocytes % 10.3 H Eosinophils % 0.7 Basophils % 0.5 Nucleated RBC % 0 PT with INR 11.80 INR 1.04 Sodium Potassium Chloride Carbon Dioxide Anion Gap BUN Creatinine Creat Clearance w eGFR Random Glucose Calcium Magnesium Total Bilirubin AST ALT Alkaline Phosphatase Creatine Kinase Troponin I Total Protein Albumin Urine Color Dkyellow Urine Appearance Slcloudy Urine pH 5.0 Ur Specific [place] 1.026 Urine Protein Negative Urine Glucose (UA) Negative Urine Ketones Negative Urine Blood Negative Urine Nitrite Negative Urine Bilirubin Negative Urine Urobilinogen 2.0 H Ur Leukocyte Esterase 2+ H Urine WBC (Auto) 41 Urine RBC (Auto) 6 Ur Epithelial Cells Rare Urine Bacteria Rare Hyaline Casts 7 Urine Mucus Few 10/11/17 20:00 WBC RBC Hgb Hct MCV MCH MCHC RDW Plt Count MPV Absolute Neuts (auto) Neutrophils % Lymphocytes % Monocytes % Eosinophils % Basophils % Nucleated RBC % PT with INR INR Sodium 125 L Potassium 3.9 Chloride 90 L Carbon Dioxide 22 Anion Gap 13 BUN 8 Creatinine 0.6 Creat Clearance w eGFR > 60 Random Glucose 123 H Calcium 8.9 Magnesium 2.0 Total Bilirubin 0.6 AST 40 H ALT 79 H Alkaline Phosphatase 144 H D Creatine Kinase 58 Troponin I < 0.02 Total Protein 7.3 Albumin 3.6 Urine Color Urine Appearance Urine pH Ur Specific [place] Urine Protein Urine Glucose (UA) Urine Ketones Urine Blood Urine Nitrite Urine Bilirubin Urine Urobilinogen Ur Leukocyte Esterase Urine WBC (Auto) Urine RBC (Auto) Ur Epithelial Cells Urine Bacteria Hyaline Casts Urine Mucus Active Medications Acetaminophen (Tylenol -) 650 mg PO Q6H PRN PRN Reason: Fever Or Pain 1-5 Enoxaparin Sodium (Lovenox -) 40 mg SQ DAILY KATHERINE Insulin Aspart (Novolog Vial Sliding Scale -) 1 vial SQ ACHS KATHERINE; Protocol ASSESSMENT/PLAN: 71 y/o female with PMHx of CAD, HTN, HLD, DM, Removal of Left Meningioma, ?CVA, Anemia, GERD, Kidney Stones, Anxiety, presents with left sided chest pain, Midepigastic pain and headache will be observed in Tele 1. Atypical Chest pain R/O ACS - Troponin < 0.02 X1 - EKG Sinus with PAC's, VR 84 - CXR pending official read - Negative stress test in 05/2017 - 2nd Troponin and EKG Ordered - Fasting Lipids ordered - Echo ordered for this AM - Cardiology (Dr. España) Consulted - Consider Outpatient follow up if patient continues to feel anxiety 2. Headaches - Last Head CT (05/31) was negative - Pain control via Tylenol - Neurology (Dr. Morton) Consulted 3. Elevated LFTs accompanied by abdominal pain - Abdominal US Done - GI (Dr. Cleary) Consulted - IV Protonix - Hepatitis serology 4. Hyponatremia - Chronic - TSH, Free T4, urine electrolytes ordered - Recieved 1L NS in ED - Repeat BMP shows Na 126 - NS @ 42 mls/Hr - Nephrology (Dr. Martinez) Consulted 5. Elevated BG - Check Hgb A1c - ISS BGM ACHS 6. FEN - PO Fluids; Can consider IV NS once BMP shows Na has corrected < 8 - Correcting Na and Cl as above - Sodium controlled, Low cholesterol, diabetic diet 7. PPx - DVT: Lovenox 40mg SQ Q24H Visit type - Emergency Visit Emergency Visit: Yes ED Registration Date: 10/11/17 Care time: The patient presented to the Emergency Department on the above date and was hospitalized for further evaluation of their emergent condition. - New Patient This patient is new to me today: Yes Date on this admission: 10/12/17 - Critical Care Critical Care patient: No Hospitalist Screening - Colonoscopy Questionnaire Colonoscopy Questionnaire: Colonoscopy Questionnaire - Patient: 50 - 75 years old and never had a screening colonoscopy: Unknown History of colon or rectal polyps, or CA: Unknown History of IBD, Crohn's disease or UC: Unknown History of abdominal radiation therapy as a child: Unknown - Relative: 1 with colon or rectal CA, or polyps at age 60 or younger: Unknown Colon or rectal CA diagnosed at age 45 or younger: Unknown Multiple relatives with colon or rectal CA: Unknown - Outcome: Screening Result: Negative Screen
[2017-10-12 02:50] LABS: ANION GAP 8 MMOL/L (8-16); BLOOD UREA NITROGEN 10 mg/dL (7-18); CALCIUM 8.9 mg/dL (8.5-10.1); CHLORIDE 92 mmol/L (98-107); CO2 26 mmol/L (21-32); CREATININE 0.8 mg/dL (0.55-1.02); GLUCOSE,RANDOM 116 mg/dL (74-106); SODIUM 126 mmol/L (136-145)
[2017-10-12 03:05] LABS: POTASSIUM 4.1 mmol/L (3.5-5.1)
[2017-10-12] MEDS ORDERED: SODIUM CHLORIDE 1,000 ML IV SCH (05:45)
[2017-10-12 06:41] LABS: BASO % 0.2 % (0-2.0); EOS % 0.8 % (0-4.5); HEMATOCRIT 32.5 % (32.4-45.2); HEMOGLOBIN 10.2 GM/dL (10.7-15.3); LYMPH % 23.4 % (8-40); MCH 23.3 pg (25.7-33.7); MCHC 31.4 g/dl (32.0-36.0); MEAN CELL VOLUME 74.2 fl (80-96); MEAN PLT VOLUME 6.8 fl (7.5-11.1); MONO % 8.1 % (3.8-10.2); NEUT % 67.5 % (42.8-82.8); PLATELET COUNT 288 K/MM3 (134-434); RBC 4.39 M/mm3 (3.60-5.2); RDW 19.7 % (11.6-15.6); WHITE BLOOD COUNT 4.2 K/mm3 (4.0-10.0)
[2017-10-12 07:07] LABS: ALBUMIN 3.2 g/dl (3.4-5.0); ANION GAP 8 MMOL/L (8-16); BLOOD UREA NITROGEN 9 mg/dL (7-18); CALCIUM 8.4 mg/dL (8.5-10.1); CHLORIDE 95 mmol/L (98-107); CO2 26 mmol/L (21-32); GLUCOSE,RANDOM 105 mg/dL (74-106); MAGNESIUM 2.1 mg/dL (1.8-2.4); POTASSIUM 3.6 mmol/L (3.5-5.1); SODIUM 129 mmol/L (136-145)
[2017-10-12 07:17] LABS: ALK PHOS 157 U/L (45-117); BILIRUBIN,TOTAL 0.4 mg/dL (0.2-1.0); CHOLESTEROL 156 mg/dL (50-200); CREATININE 0.6 mg/dL (0.55-1.02); HDL CHOLESTEROL 69 mg/dL (40-60); PHOSPHOROUS 3.4 mg/dL (2.5-4.9); SGOT/AST 29 U/L (15-37); SGPT/ALT 64 U/L (12-78); TOT PROT 6.5 g/dl (6.4-8.2); TRIGLYCERIDES 86 mg/dL (35-160)
[2017-10-12] MEDS: INSULIN SLIDING SCALE (NOVOLOG) 1 VIAL SQ SCH ×2 (07:39→11:40)
[2017-10-12 08:39] VITALS: TEMP 97.8
[2017-10-12] MEDS ORDERED: DIVALPROEX SODIUM 500 MG TABLET E.C. PO SCH (10:00)
[2017-10-12] MEDS ORDERED: amLODIPine BESYLATE 10 MG TABLET (FP) PO SCH (10:00)
[2017-10-12] MEDS ORDERED: PANTOPRAZOLE SODIUM 40 MG VIAL IVPUSH SCH (10:00)
[2017-10-12] MEDS ORDERED: ESCITALOPRAM OXALATE 10 MG TABLET (FP) PO SCH (10:00)
[2017-10-12] MEDS ORDERED: PATIENT'S OWN MEDICATION (NON-FORMULARY) (Nitrofurantoin Monohyd/M-Cryst [Nitrofurantoin M PO SCH (10:00)
[2017-10-12] MEDS ORDERED: ENOXAPARIN NA (PORCINE) 40 MG/0.4 ML DISP.SYRIN SQ SCH (10:00)
[2017-10-12] MEDS ORDERED: metoPROLOL SUCCINATE 25 MG TAB.SR.24H (FP) PO SCH (10:00)
[2017-10-12] MEDS ORDERED: PT OWN MED DRAWER 7, Y5N ONE (10:06)
[2017-10-12] MEDS ORDERED: amLODIPine BESYLATE 5 MG TABLET (FP) ONE (10:13)
[2017-10-12] MEDS ORDERED: DIVALPROEX SODIUM 500 MG TABLET E.C. ONE (10:14)
[2017-10-12] MEDS ORDERED: PANTOPRAZOLE SODIUM 40 MG/100 ML BAG IVPB ONE (10:15)
[2017-10-12] MEDS ORDERED: ESCITALOPRAM OXALATE 10 MG TABLET (FP) ONE (10:15)
[2017-10-12 11:40] VITALS: BP 133/75; PULSE 75
[2017-10-12] MEDS ORDERED: ACETAMINOPHEN 325 MG TABLET (FP) ONE (11:44)
--- NOTE | 2017-10-12 11:44 | DS ---
Physical Exam: SUBJECTIVE: Patient seen and examined OBJECTIVE: Vital Signs Period Temp Pulse Resp BP Sys/Christensen Pulse Ox Last 24 Hr 97.8 F-98.8 F 64-90 16-19 124-133/69-78 95-98 PHYSICAL EXAM GENERAL: The patient is awake, alert, and fully oriented, in no acute distress. HEAD: Normal with no signs of trauma. EYES: PERRL, extraocular movements intact, sclera anicteric, conjunctiva clear. ENT: Ears normal, nares patent, oropharynx clear without exudates, moist mucous membranes. NECK: Trachea midline, full range of motion, supple. LUNGS: Breath sounds equal, clear to auscultation bilaterally, no wheezes, no crackles, no accessory muscle use. HEART: Regular rate and rhythm, S1, S2 without murmur, rub or gallop. ABDOMEN: Soft, nontender, nondistended, normoactive bowel sounds, no guarding, no rebound, no hepatosplenomegaly, no masses. EXTREMITIES: 2+ pulses, warm, well-perfused, no edema. NEUROLOGICAL: Cranial nerves II through XII grossly intact. Normal speech, gait not observed. PSYCH: Normal mood, normal affect. SKIN: Warm, dry, normal turgor, no rashes or lesions noted. LABS Laboratory Results - last 24 hr 10/11/17 10/11/17 10/11/17 00:25 20:00 20:00 WBC 5.6 RBC 4.70 Hgb 11.0 Hct 34.6 MCV 73.7 L MCH 23.5 L MCHC 31.8 L RDW 20.1 H Plt Count 328 MPV 7.0 L Absolute Neuts (auto) 4.2 Neutrophils % 74.7 Lymphocytes % 13.8 D Monocytes % 10.3 H Eosinophils % 0.7 Basophils % 0.5 Nucleated RBC % 0 PT with INR 11.80 INR 1.04 Sodium Potassium Chloride Carbon Dioxide Anion Gap BUN Creatinine Creat Clearance w eGFR POC Glucometer Random Glucose Hemoglobin A1c % Calcium Phosphorus Magnesium Total Bilirubin AST ALT Alkaline Phosphatase Creatine Kinase Troponin I Total Protein Albumin Triglycerides Cholesterol Total LDL Cholesterol HDL Cholesterol TSH Free T4 Urine Color Dkyellow Urine Appearance Slcloudy Urine pH 5.0 Ur Specific [place] 1.026 Urine Protein Negative Urine Glucose (UA) Negative Urine Ketones Negative Urine Blood Negative Urine Nitrite Negative Urine Bilirubin Negative Urine Urobilinogen 2.0 H Ur Leukocyte Esterase 2+ H Urine WBC (Auto) 41 Urine RBC (Auto) 6 Ur Epithelial Cells Rare Urine Bacteria Rare Hyaline Casts 7 Urine Mucus Few 10/11/17 10/12/17 10/12/17 20:00 02:00 02:00 WBC RBC Hgb Hct MCV MCH MCHC RDW Plt Count MPV Absolute Neuts (auto) Neutrophils % Lymphocytes % Monocytes % Eosinophils % Basophils % Nucleated RBC % PT with INR INR Sodium 125 L 126 L Potassium 3.9 4.1 Chloride 90 L 92 L Carbon Dioxide 22 26 Anion Gap 13 8 BUN 8 10 Creatinine 0.6 0.8 Creat Clearance w eGFR > 60 > 60 POC Glucometer Random Glucose 123 H 116 H Hemoglobin A1c % Calcium 8.9 8.9 Phosphorus Magnesium 2.0 Total Bilirubin 0.6 AST 40 H ALT 79 H Alkaline Phosphatase 144 H D Creatine Kinase 58 Troponin I < 0.02 < 0.02 Total Protein 7.3 Albumin 3.6 Triglycerides Cholesterol Total LDL Cholesterol HDL Cholesterol TSH Free T4 Urine Color Urine Appearance Urine pH Ur Specific [place] Urine Protein Urine Glucose (UA) Urine Ketones Urine Blood Urine Nitrite Urine Bilirubin Urine Urobilinogen Ur Leukocyte Esterase Urine WBC (Auto) Urine RBC (Auto) Ur Epithelial Cells Urine Bacteria Hyaline Casts Urine Mucus 10/12/17 10/12/17 10/12/17 06:25 06:25 06:25 WBC 4.2 RBC 4.39 Hgb 10.2 L Hct 32.5 MCV 74.2 L MCH 23.3 L MCHC 31.4 L RDW 19.7 H Plt Count 288 MPV 6.8 L Absolute Neuts (auto) 2.8 Neutrophils % 67.5 Lymphocytes % 23.4 D Monocytes % 8.1 Eosinophils % 0.8 Basophils % 0.2 Nucleated RBC % 0 PT with INR INR Sodium 129 L Potassium 3.6 Chloride 95 L Carbon Dioxide 26 Anion Gap 8 BUN 9 Creatinine 0.6 Creat Clearance w eGFR > 60 POC Glucometer Random Glucose 105 Hemoglobin A1c % 5.8 Calcium 8.4 L Phosphorus 3.4 Magnesium 2.1 Total Bilirubin 0.4 AST 29 ALT 64 Alkaline Phosphatase 157 H D Creatine Kinase Troponin I Total Protein 6.5 Albumin 3.2 L Triglycerides 86 Cholesterol 156 Total LDL Cholesterol 68 HDL Cholesterol 69 H TSH 0.68 Free T4 Urine Color Urine Appearance Urine pH Ur Specific [place] Urine Protein Urine Glucose (UA) Urine Ketones Urine Blood Urine Nitrite Urine Bilirubin Urine Urobilinogen Ur Leukocyte Esterase Urine WBC (Auto) Urine RBC (Auto) Ur Epithelial Cells Urine Bacteria Hyaline Casts Urine Mucus 10/12/17 10/12/17 06:25 07:27 WBC RBC Hgb Hct MCV MCH MCHC RDW Plt Count MPV Absolute Neuts (auto) Neutrophils % Lymphocytes % Monocytes % Eosinophils % Basophils % Nucleated RBC % PT with INR INR Sodium Potassium Chloride Carbon Dioxide Anion Gap BUN Creatinine Creat Clearance w eGFR POC Glucometer [phone] Random Glucose Hemoglobin A1c % Calcium Phosphorus Magnesium Total Bilirubin AST ALT Alkaline Phosphatase Creatine Kinase Troponin I Total Protein Albumin Triglycerides Cholesterol Total LDL Cholesterol HDL Cholesterol TSH Free T4 1.46 Urine Color Urine Appearance Urine pH Ur Specific [place] Urine Protein Urine Glucose (UA) Urine Ketones Urine Blood Urine Nitrite Urine Bilirubin Urine Urobilinogen Ur Leukocyte Esterase Urine WBC (Auto) Urine RBC (Auto) Ur Epithelial Cells Urine Bacteria Hyaline Casts Urine Mucus HOSPITAL COURSE: Date of Admission:10/11/17 Date of Discharge: 10/12/17 Pre hospital course Patient is a 71 year old woman with a significant past medical history of DM, CAD, HTN, and HLD, with multiple ER visits for atypical chest pain presentations (negative nuclear stress test performed May 2017), who presents to the ER complaining of chest pain and headache onset x 1 day. The patient is a frequent visitor to the ER for the same complaints. She notes that these are the same pains that she always has when she comes to the ER. No other associated major symptom and she was painfree at the time of admission interview. Subsequent hospital course Patient was ruled out for acute coronary syndrome. Serial troponins were negative. CXR was unremarkable. ECG was not suggestive of acute ischemic event. Echo was done and unchanged from 01/2017: LV normal EF 55-60%, RV normal, no significant valvular pathology. There were no observed events on telemetry. Patient was seen and evaluated by cardiology and no further workup was indicated. Patient was seen on 09/23/17 in the ED for a UTI and was prescribed nitrofurantoin and augmentin. On this visit, the microbiology was reviewed and showed urine from 09/23 grew Klebsiella resistant to nitrofurantoin and ampicillin. Patient was advised to stop the antibiotics previously described, and was discharged with a prescription for cefuroxime 500mg BID x 7 days. Minutes to complete discharge: 35 Discharge Summary Reason For Visit: CHEST PAIN,HYPONATREMIA Current Active Problems Chest pain (Acute) Hyponatremia (Acute) Condition: Improved - Instructions Diet, Activity, Other Instructions: You were seen several days ago for a urinary tract infection. Based on the lab results, a new prescription has been sent to your pharmacy for cefuroxime. Take this medication as directed for 7 days. You should STOP taking nitrofurantoin and augmentin. It is recommended you make an appointment to see your primary care provider Dr. Mabry within one week of your discharge. Referrals: Waldo Mabry MD [Primary Care Provider] - Disposition: HOME - Home Medications Comprehensive Discharge Medication List: Ambulatory Orders Escitalopram Oxalate [Lexapro -] 10 mg PO DAILY 03/10/16 Divalproex [Depakote -] 500 mg PO BID 12/15/16 Metoprolol Succinate [Toprol XL -] 25 mg PO DAILY #30 tab.sr.24h 02/06/17 Amlodipine Besylate [Norvasc -] 10 mg PO DAILY 06/27/17 Acetaminophen [Tylenol .Regular Strength -] 325 mg PO Q6H PRN #30 tablet Cefuroxime Axetil [Cefuroxime] 500 mg PO BID #14 tablet 10/12/17 This patient is new to me today: Yes Date on this admission: 10/12/17 Emergency Visit: Yes ED Registration Date: 10/11/17 Care time: The patient presented to the Emergency Department on the above date and was hospitalized for further evaluation of their emergent condition. Critical Care patient: No - Discharge Referral Referred to [facility] Med [facility] Yes Physician Referral: Waldo Morgan MD ([facility])
--- NOTE | 2017-10-12 11:54 | EKG ---
Test Reason : Blood Pressure : / mmHG Vent. Rate : 084 BPM Atrial Rate : 084 BPM P-R Int : 158 ms QRS Dur : 086 ms QT Int : 384 ms P-R-T Axes : 032 -11 033 degrees QTc Int : 453 ms SINUS RHYTHM WITH PREMATURE ATRIAL COMPLEXES OTHERWISE NORMAL ECG WHEN COMPARED WITH ECG OF 05-OCT-2017 15:29, NO SIGNIFICANT CHANGE WAS FOUND Confirmed by TERENCE GARCIA MD ([id number]) on 10/12/2017 11:54:31 AM Referred By: Confirmed By:TERENCE GARCIA MD
--- NOTE | 2017-10-12 12:25 | CON.CARD ---
Consult Consult Specialty:: cardiology Referred by:: James Reason for Consultation:: Chest pain - History of Present Illness Chief Complaint: Chest pain History of Present Illness: The patient is a 71-year-old female, we have a history of diabetes, hypertension , hyperlipidemia, coronary artery disease, prior stroke, intracranial meningioma resected, GERD, now presenting with chest pains. Symptoms began last night. Completely reproducible. The patient is pacing the hallway no apparent distress. She offers no other specific complaints. 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 Cardio/Vascular: Yes: HTN, Hyperlipdemia Gastrointestinal: Yes: GERD, Hiatal Hernia, Peptic Ulcer Disease Renal/: Yes: Other (hyponatremia) Psych: Yes: Anxiety, Depression Musculoskeletal: Yes: Osteoarthritis Endocrine: Yes: Diabetes Mellitus - Past Surgical History Past Surgical History: Yes: Cataract Removal (bilateral), Joint Replacement (RT KNEE) - Alcohol/Substance Use Hx Alcohol Use: No History of Substance Use: reports: None - Smoking History Smoking history: Never smoked Have you smoked in the past 12 months: No Aproximately how many cigarettes per day: 0 - Social History Usual Living Arrangement: Alone 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, 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 History of Recent Travel: No Home Medications - Allergies Allergies/Adverse Reactions: Allergies Allergy/AdvReac Type Severity Reaction Status Date / Time aspirin Allergy Severe "NERVOUS" Verified 10/11/17 17:42 morphine Allergy Severe "ANXIETY-DE Verified 10/11/17 17:42 SPERATION" - Home Medications Home Medications: Ambulatory Orders Escitalopram Oxalate [Lexapro -] 10 mg PO DAILY 03/10/16 Divalproex [Depakote -] 500 mg PO BID 12/15/16 Metoprolol Succinate [Toprol XL -] 25 mg PO DAILY #30 tab.sr.24h 02/06/17 Amlodipine Besylate [Norvasc -] 10 mg PO DAILY 06/27/17 Acetaminophen [Tylenol .Regular Strength -] 325 mg PO Q6H PRN #30 tablet Cefuroxime Axetil [Cefuroxime] 500 mg PO BID #14 tablet 10/12/17 Review of Systems - Review of Systems Constitutional: reports: No Symptoms Eyes: reports: No Symptoms HENT: reports: No Symptoms Neck: reports: No Symptoms Respiratory: reports: No Symptoms Gastrointestinal: reports: No Symptoms Genitourinary: reports: No Symptoms Breasts: reports: No Symptoms Reported Musculoskeletal: reports: Other (Musculoskeletal chest pain) Integumentary: reports: No Symptoms Neurological: reports: No Symptoms Endocrine: reports: No Symptoms Hematology/Lymphatic: reports: No Symptoms Psychiatric: reports: No Symptoms Vital Signs: Vital Signs Temperature 97.8 F 10/12/17 11:39 Pulse Rate 75 10/12/17 11:39 Respiratory Rate 16 10/12/17 11:39 Blood Pressure 133/75 10/12/17 11:39 O2 Sat by Pulse Oximetry (%) 98 10/12/17 11:39 Constitutional: Yes: Well Nourished, No Distress, Calm Eyes: Yes: WNL, Conjunctiva Clear, EOM Intact HENT: Yes: WNL, Atraumatic, Normocephalic Neck: Yes: WNL, Supple, Trachea Midline Respiratory: Yes: WNL, Regular, CTA Bilaterally Gastrointestinal: Yes: WNL, Normal Bowel Sounds, Soft Renal/: Yes: WNL JVD: No Carotid Bruit: No PMI: Non-Displaced Heart Sounds: Yes: S1, S2 Murmur: Yes: Systolic Murmur, Grade 2 Musculoskeletal: Yes: Other (Musculoskeletal chest pain, reproducible) Extremities: Yes: WNL Edema: No Peripheral Pulses WNL: Yes Integumentary: Yes: WNL Neurological: Yes: WNL, Alert, Oriented ...Motor Strength: WNL Psychiatric: Yes: WNL - Other Data Labs, Other Data: CBC, BMP 10/12/17 06:25 10/12/17 06:25 INR, PTT INR 1.04 (0.83-1.09) 10/11/17 20:00 Troponin, BNP 10/11/17 10/12/17 20:00 02:00 Troponin I < 0.02 < 0.02 Troponin, BNP 10/11/17 10/12/17 20:00 02:00 Troponin I < 0.02 < 0.02 Assessment/Plan 71-year-old female with a history of diabetes, hypertension, coronary artery disease, hyperlipidemia, stroke, now presenting with left-sided reproducible chest pains. The patient is exquisitely tender in her left chest wall. There is no evidence of ischemia nor acute coronary syndrome. No CHF. The patient is in sinus rhythm. There are no acute ECG changes, only APCs and left atrial enlargement. There is no need for further cardiac workup at this point. Please achieve good pain control. No need for cardiac monitoring. Please do not hesitate to call us PRN
--- NOTE | 2017-10-12 14:18 | ECHO ---
Name: NANCY CERNA Exam:Adult Echocardiogram Study Date: 10/12/2017 09:09 AM Age: 71 yrs Reason For Study: ACS Height: 57 in Weight: 150 lb BSA: 1.6 m2 MMode/2D Measurements & Calculations IVSd: 1.3 cm Ao root diam: 2.6 cm LVIDd: 4.4 cm LA dimension: 3.2 cm LVIDs: 3.0 cm LVPWd: 1.0 cm EDV(Teich): 88.4 ml ESV(Teich): 35.6 ml Doppler Measurements & Calculations MV E max tyson: 45.1 cm/sec TR max tyson: 240.3 cm/sec MV A max tyson: 94.1 cm/sec TR max P.1 mmHg MV E/A: 0.48 MV dec time: 0.36 sec Med Peak E' Tyson: 4.8 cm/sec PI Vmax: 81.4 cm/sec Med E/e': 9.4 Lat Peak E' Tyson: 4.4 cm/sec Lat E/e': 10.4 Procedure A complete two-dimensional transthoracic echocardiogram was performed (2D, M-mode, Doppler and color flow Doppler). Left Ventricle The left ventricular size, thickness and function are normal. The left ventricular ejection fraction is normal. Ejection Fraction = 55-60%. No regional wall motion abnormalities noted. Right Ventricle The right ventricle is normal in size and function. Atria Normal left and right atrial size and function. Mitral Valve There is no mitral regurgitation noted. Tricuspid Valve There is trace tricuspid regurgitation. Right ventricular systolic pressure is normal. Aortic Valve No hemodynamically significant valvular aortic stenosis. No aortic regurgitation is present. Pulmonic Valve There is no pulmonic valvular regurgitation. Great Vessels The aortic root is normal size. Pericardium/Pleura There is no pericardial effusion. Interpretation Summary The left ventricular size, thickness and function are normal. The right ventricle is normal in size and function. There is trace tricuspid regurgitation. MD Rich Wolf 10/12/2017 01:08 PM
[2017-10-13 06:06] LABS: HEP.C VIRUS AB 0.1 s/co ratio (0.0-0.9); HEPATITIS B CORE ANTIBODY,IGM Negative (Negative)
== END 2017-10-12 16:30 | disposition home or self-care (01) ==
LOC: JER 17:18 → JERBED 21:00 → INTOOBSV 21:00
PROVIDERS: ADMIT Internal Medicine; ATTEND Nurse Practitioner Acute Care
PROC: 3E0337Z Introduction of Electrolytic and Water Balance Substance into Peripheral Vein, Percutaneous Approach (ICD-10-PCS; principal; 2017-10-11)
PROC: 3E013GC Introduction of Other Therapeutic Substance into Subcutaneous Tissue, Percutaneous Approach (ICD-10-PCS; 2017-10-11)
DX: E87.1 Hypo-osmolality and hyponatremia (principal); R07.89 Other chest pain; I10 Essential (primary) hypertension; E78.5 Hyperlipidemia, unspecified; E11.9 Type 2 diabetes mellitus without complications; I25.10 Atherosclerotic heart disease of native coronary artery without angina pectoris; I69.318 Other symptoms and signs involving cognitive functions following cerebral infarction; I69.398 Other sequelae of cerebral infarction; R94.5 Abnormal results of liver function studies; R10.9 Unspecified abdominal pain; R73.09 Other abnormal glucose; K21.9 Gastro-esophageal reflux disease without esophagitis; F41.9 Anxiety disorder, unspecified; F32.9 Major depressive disorder, single episode, unspecified; Z88.6 Allergy status to analgesic agent; Z87.442 Personal history of urinary calculi; Z96.653 Presence of artificial knee joint, bilateral
CPT/HCPCS: 36415; 71046-TC-FY; 76705-TC; 80048; 80053; 80061; 80074; 81003; 81015; 82550; 82962; 83036; 83721; 83735; 84100; 84439; 84443; 84484; 85025; 85610; 86705; 86707; 87350; 93005; 93010; 93306-TC; 96360; 96372; 99285-25; G0378; J7030

== ENCOUNTER 2017-10-18 20:20 | Emergency (ER) | payer OTHER ==
[2017-10-18 20:27] VITALS: BMI 36.1
--- NOTE | 2017-10-18 20:28 | PDOC ---
Rapid Medical Evaluation Time Seen by Provider: 10/18/17 20:21 Medical Evaluation: Allergies Allergy/AdvReac Type Severity Reaction Status Date / Time aspirin Allergy Severe "NERVOUS" Verified 10/11/17 17:42 morphine Allergy Severe "ANXIETY-DE Verified 10/11/17 17:42 SPERATION" 10/18/17 20:26 Pt c/o: left sided cp since last night, no other complaints Pt on brief exam: left sided chest tenderness Pt ordered for EKg Pt to proceed to the ED Discharge Disposition - Diagnosis Chest pain - Referrals Referrals: Waldo Mabry MD [Primary Care Provider] - - Patient Instructions - Post Discharge Activity
[2017-10-18] MEDS ORDERED: ACETAMINOPHEN 325 MG TABLET (FP) PO ONE (21:53)
[2017-10-18] MEDS ORDERED: ACETAMINOPHEN 325 MG TABLET (FP) ONE (22:06)
--- NOTE | 2017-10-18 22:21 | PDOC ---
Attending Attestation - Resident Resident Name: Judson Teresa - ED Attending Attestation I have performed the following: I have examined & evaluated the patient, The case was reviewed & discussed with the resident, I agree w/resident's findings & plan - HPI HPI: 10/18/17 22:17 71-year-old female with multiple medical problems well known to this department and hospital with frequent visits for varying complaints including chest pain presents now with left-sided chest pain since last night, constant and reproducible and positional, not associated with any respiratory distress or cough or fevers or chills. Patient admitted about one week ago with similar complaints, was seen by cardiology and presentation deemed musculoskeletal despite her ACS risk factors. - Physicial Exam PE: 10/18/17 22:18 Vital signs stable Well-appearing, seated in her wheelchair, no acute distress speaking full sentences Lungs are clear, no crackles or wheezing, no accessory muscle use, no focally decreased breath sounds Heart is regular, no ectopy during auscultation Very reproducible pinpoint anterior left chest wall tenderness without bruising or soft tissue swelling - Medical Decision Making 10/18/17 22:20 71-year-old female with known risk factors for ACS and frequent visits for otherwise atypical chest pain presents again with atypical chest pain. She is well-appearing and hemodynamically stable with no red flags on history or physical exam. Given risk factors, we'll check troponin/chest x-ray/EKG Observe and disposition accordingly Heart Score/ECG Review #1 ECG reviewed & interpreted by me at: 00:10 General ECG Interpretation: Sinus Rhythm, Normal Rate (74), Normal Intervals ( borderline LVH, qtc 421), No acute ischemic changes Compared to previous ECG there are: No significant change (10/11/17)
--- NOTE | 2017-10-18 23:29 | PDOC ---
History of Present Illness - General Chief Complaint: Chest Pain Stated Complaint: CHEST PAIN Time Seen by Provider: 10/18/17 20:21 History Source: Patient Exam Limitations: No Limitations - History of Present Illness Initial Comments: 10/18/17 23:29 The patient is a 71F with a PMH of HTN, HLD, and DM, well known to our ER, who presents with chest pain since last night. She states that her chest pain is a pressure, constant, worsening, and L sided. She admits to some mild nausea but denies SOB, fever, chills. Past History - Past Medical History Allergies/Adverse Reactions: Allergies Allergy/AdvReac Type Severity Reaction Status Date / Time aspirin Allergy Severe "NERVOUS" Verified 10/18/17 20:27 morphine Allergy Severe "ANXIETY-DE Verified 10/18/17 20:27 SPERATION" Home Medications: Ambulatory Orders Escitalopram Oxalate [Lexapro -] 10 mg PO DAILY 03/10/16 Divalproex [Depakote -] 500 mg PO BID 12/15/16 Metoprolol Succinate [Toprol XL -] 25 mg PO DAILY #30 tab.sr.24h 02/06/17 Amlodipine Besylate [Norvasc -] 10 mg PO DAILY 06/27/17 Acetaminophen [Tylenol .Regular Strength -] 325 mg PO Q6H PRN #30 tablet Cefuroxime Axetil [Cefuroxime] 500 mg PO BID #14 tablet 10/12/17 Anemia: Yes Asthma: No Cancer: No Cardiac Disorders: No 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, baseline confusion and dizziness) COPD: No CHF: No DVT: No Dementia: No Diabetes: Yes GI Disorders: Yes (gerd, gastric ulcer, dysphagia) Disorders: Yes (kidney stone in the past) HTN: Yes Hypercholesterolemia: Yes Liver Disease: No Psychiatric Problems: Yes (ANXIETY DEPRESSION) Seizures: Yes (S/P craniotomy for benign tumor - on Depakote for seizure prophylaxis) Thyroid Disease: No - Surgical History Abdominal Surgery: Yes Appendectomy: No Cardiac Surgery: No Cholecystectomy: Yes Lung Surgery: No Neurologic Surgery: Yes (removal left meningioma) Orthopedic Surgery: Yes (Bilateral knee replacement) - Immunization History Td Vaccination: Yes TDAP Vaccination: No Immunization Up to Date: No - Suicide/Smoking/Psychosocial Hx Smoking Status: No Smoking History: Never smoked Have you smoked in the past 12 months: No Number of Cigarettes Smoked Daily: 0 Cigars Per Day: 0 Hx Alcohol Use: No Drug/Substance Use Hx: No Substance Use Type: None Hx Substance Use Treatment: No Review of Systems - Review of Systems Able to Perform ROS?: Yes Comments:: 10/18/17 23:45 GENERAL/CONSTITUTIONAL: No fever or chills. No weakness. HEAD, EYES, EARS, NOSE AND THROAT: No change in vision. No ear pain or discharge. No sore throat. CARDIOVASCULAR: No chest pain, palpitations, or lightheadedness. RESPIRATORY: No cough, wheezing, shortness of breath, or hemoptysis. GASTROINTESTINAL: No nausea, vomiting, diarrhea, constipation, or abdominal pain. GENITOURINARY: No dysuria, frequency, hematuria, or change in urination. MUSCULOSKELETAL: No joint or muscle swelling or pain. No neck or back pain. SKIN: No rash or lesions. NEUROLOGIC: No headache, numbness, tingling, focal weakness, loss of consciousness, or change in strength/sensation. Is the patient limited Albanian proficient: No *Physical Exam - Vital Signs Last Vital Signs Temp Pulse Resp BP Pulse Ox 99.5 F 82 18 149/60 98 10/18/17 20:22 10/18/17 20:22 10/18/17 20:22 10/18/17 20:22 10/18/17 20:22 - Physical Exam Comments: 10/19/17 00:19 GENERAL: Well developed, well nourished. Awake and alert. No acute distress. HEENT: Normocephalic, atraumatic. Hearing grossly normal. Moist mucous membranes. PERRLA, EOMI. No conjunctival pallor. Sclera are non-icteric. NECK: Supple. Full ROM. CARDIOVASCULAR: Regular rate and rhythm. No murmurs, rubs, or gallops. PULMONARY: No evidence of respiratory distress. Lungs clear to auscultation bilaterally. No wheezing, rales or rhonchi. ABDOMINAL: Soft. Non-tender. Non-distended. No rebound or guarding. GENITOURINARY: No CVA tenderness bilaterally. MUSCULOSKELETAL: Normal range of motion at all joints. No bony deformities or tenderness. EXTREMITIES: No cyanosis. No clubbing. No calf tenderness or swelling. SKIN: Warm and dry. Normal capillary refill. No rashes. No jaundice. NEUROLOGICAL: Alert, awake, appropriate. Cranial nerves 2-12 grossly intact. Normal speech. Gait is normal without ataxia. PSYCHIATRIC: Cooperative. Good eye contact. Appropriate mood and affect. Heart Score/ECG Review #1 General ECG Interpretation: Sinus Rhythm, Normal Rate, Normal Intervals, No acute ischemic changes Compared to previous ECG there are: No significant change 10/19/17 00:19 NSR vent rate 75 OR 158 QRS 78 QTc 421 No STD or MACHELLE No signs of acute ischemia ED Treatment Course - LABORATORY CBC & Chemistry Diagram: 10/18/17 23:52 10/18/17 23:52 - RADIOLOGY Radiology Studies Ordered: Category Date Time Status CHEST PA & LAT [RAD] Stat Radiology 10/18/17 22:04 Ordered - Medications Given in the ED: ED Medications Discontinued Medications Generic Name Dose Route Start Last Admin Trade Name Freq PRN Reason Stop Dose Admin Acetaminophen 650 mg 10/18/17 21:53 10/18/17 22:08 Tylenol - PO 10/18/17 21:54 650 mg ONCE ONE Administration Medical Decision Making - Medical Decision Making 10/19/17 00:20 The patient is a 71F with a PMH of HTN, HLD, and DM who presents with CP. The patient is well known to the ER and has been worked up multiple times. However, due to her age and medical history, will check labs and EKG. EKG unremarkable. Pending labs. 10/19/17 01:14 CBC, CMP, and troponin negative. Pending CXR. 10/19/17 02:10 CXR negative for acute pathology. Will d/c with PCP f/u. *DC/Admit/Observation/Transfer Diagnosis at time of Disposition: Chest pain Qualifiers: Chest pain type: unspecified Qualified Code(s): R07.9 - Chest pain, unspecified - Discharge Dispostion Disposition: HOME Condition at time of disposition: Stable Decision to Admit order: No - Referrals Referrals: Waldo Mabry MD [Primary Care Provider] - - Patient Instructions Printed Discharge Instructions: DI for Atypical Chest Pain Additional Instructions: Por favor, karol un seguimiento con perla mdico de atencin primaria en 2-3 lucio. Por favor tome tylenol segn sea necesario para perla dolor de carlos. Por favor regrese a la leha de emergencia si tiene signos o sntomas de dolor en el pecho, dificultad para respirar, fiebre incontrolable, escalofros, nuseas, vmitos, entumecimiento, hormigueo o debilidad en cualquier parte de perla cuerpo, cambios en la visin o dificultad para hablar. Por favor regrese a la leah de emergencias si los sntomas persisten, empeoran o surgen nuevos sntomas. Please follow up with your primary care physician in 2-3 days. Please take tylenol as needed for your headache. Please return to the ER if you have any signs or symptoms of chest pain, shortness of breath, uncontrollable fever, chills, nausea, vomiting, numbness, tingling, or weakness in any part of your body, changes in vision, or slurred speech. Please return to the ER if symptoms persist, worsen, or new symptoms arise. Print Language: CITIZ[place] OF [place] - Post Discharge Activity
[2017-10-19 00:09] LABS: BASO % 0.5 % (0-2.0); EOS % 1.7 % (0-4.5); HEMATOCRIT 31.2 % (32.4-45.2); HEMOGLOBIN 9.9 GM/dL (10.7-15.3); MCH 23.6 pg (25.7-33.7); MCHC 31.6 g/dl (32.0-36.0); MEAN CELL VOLUME 74.8 fl (80-96); MEAN PLT VOLUME 7.3 fl (7.5-11.1); MONO % 18.1 % (3.8-10.2); NEUT % 46.7 % (42.8-82.8); PLATELET COUNT 280 K/MM3 (134-434); RBC 4.18 M/mm3 (3.60-5.2); RDW 19.9 % (11.6-15.6)
[2017-10-19 00:31] LABS: ALBUMIN 3.4 g/dl (3.4-5.0); ANION GAP 7 MMOL/L (8-16); BLOOD UREA NITROGEN 16 mg/dL (7-18); CALCIUM 8.7 mg/dL (8.5-10.1); CHLORIDE 100 mmol/L (98-107); CO2 28 mmol/L (21-32); CREATININE 0.6 mg/dL (0.55-1.02); GLUCOSE,RANDOM 101 mg/dL (74-106); POTASSIUM 4.1 mmol/L (3.5-5.1); SGOT/AST 28 U/L (15-37); SGPT/ALT 37 U/L (12-78); SODIUM 135 mmol/L (136-145)
[2017-10-19 00:35] LABS: ALK PHOS 125 U/L (45-117); BILIRUBIN,TOTAL 0.3 mg/dL (0.2-1.0)
[2017-10-19] MEDS ORDERED: ACETAMINOPHEN 325 MG TABLET (FP) PO ONE (02:24)
[2017-10-19] MEDS ORDERED: ACETAMINOPHEN 325 MG TABLET (FP) ONE (02:39)
[2017-10-19 02:48] VITALS: BP 136/78; PULSE 89; TEMP 98.5
--- NOTE | 2017-10-19 13:43 | EKG ---
Test Reason : Blood Pressure : / mmHG Vent. Rate : 074 BPM Atrial Rate : 074 BPM P-R Int : 158 ms QRS Dur : 078 ms QT Int : 380 ms P-R-T Axes : 022 -06 020 degrees QTc Int : 421 ms POOR DATA QUALITY, INTERPRETATION MAY BE ADVERSELY AFFECTED NORMAL SINUS RHYTHM MINIMAL VOLTAGE CRITERIA FOR LVH, MAY BE NORMAL VARIANT BORDERLINE ECG WHEN COMPARED WITH ECG OF 11-OCT-2017 17:24, PREMATURE ATRIAL COMPLEXES ARE NO LONGER PRESENT Confirmed by TERENCE GARCIA MD ([id number]) on 10/19/2017 1:43:37 PM Referred By: Confirmed By:TERENCE GARCIA MD
== END 2017-10-19 02:48 | disposition home or self-care (01) ==
LOC: JER 20:20
DX: R07.89 Other chest pain (principal); I10 Essential (primary) hypertension; E11.9 Type 2 diabetes mellitus without complications; Z79.84 Long term (current) use of oral hypoglycemic drugs; E78.00 Pure hypercholesterolemia, unspecified; F41.9 Anxiety disorder, unspecified; Z86.2 Personal history of diseases of the blood and blood-forming organs and certain disorders involving the immune mechanism; Z96.653 Presence of artificial knee joint, bilateral; I69.818 Other symptoms and signs involving cognitive functions following other cerebrovascular disease; I69.893 Ataxia following other cerebrovascular disease; Z86.011 Personal history of benign neoplasm of the brain; Z88.8 Allergy status to other drugs, medicaments and biological substances
CPT/HCPCS: 36415; 71046-TC-FY; 80053; 82550; 84484; 85025; 93005; 93010; 99282-25

== ENCOUNTER 2017-10-20 17:36 | Emergency (ER) | payer OTHER ==
--- NOTE | 2017-10-20 17:42 | PDOC ---
Rapid Medical Evaluation Chief Complaint: Chest Pain Time Seen by Provider: 10/20/17 17:37 Medical Evaluation: Allergies Allergy/AdvReac Type Severity Reaction Status Date / Time aspirin Allergy Severe "NERVOUS" Verified 10/18/17 20:27 morphine Allergy Severe "ANXIETY-DE Verified 10/18/17 20:27 SPERATION" 10/20/17 17:49 c/o chest pain and dizziness since last night with SOB, headache. PE; patent alert ox3 Discharge Disposition - Diagnosis Chest pain Qualifiers: Chest pain type: other chest pain Qualified Code(s): R07.89 - Other chest pain ; R07.8 - Other chest pain - Referrals - Patient Instructions - Post Discharge Activity
--- NOTE | 2017-10-20 18:09 | PDOC ---
History of Present Illness - General Chief Complaint: Chest Pain Stated Complaint: CHEST PAIN Time Seen by Provider: 10/20/17 17:37 - History of Present Illness Initial Comments: 10/20/17 18:11 Ms. Sumner is a well known to this department 71 yo female w/ pmh of HTN, HLD, COPD, CVA (residual altered balance), DM, GERD, seizures s/p craniotomy, and anxiety who presents for evaluation of a 1 day history of chest pain she reports is similar to her previous presentations. Patient reports she has been taking tylenol and motrin at home however they have not been helping with her pain. The patient denies shortness of breath, headache and dizziness. Denies fever, chills, nausea, vomit, diarrhea and constipation. Denies dysuria, frequency, urgency and hematuria. Past History - Past Medical History Allergies/Adverse Reactions: Allergies Allergy/AdvReac Type Severity Reaction Status Date / Time aspirin Allergy Severe "NERVOUS" Verified 10/18/17 20:27 morphine Allergy Severe "ANXIETY-DE Verified 10/18/17 20:27 SPERATION" Home Medications: Ambulatory Orders Escitalopram Oxalate [Lexapro -] 10 mg PO DAILY 03/10/16 Divalproex [Depakote -] 500 mg PO BID 12/15/16 Metoprolol Succinate [Toprol XL -] 25 mg PO DAILY #30 tab.sr.24h 02/06/17 Amlodipine Besylate [Norvasc -] 10 mg PO DAILY 06/27/17 Acetaminophen [Tylenol .Regular Strength -] 325 mg PO Q6H PRN #30 tablet Cefuroxime Axetil [Cefuroxime] 500 mg PO BID #14 tablet 10/12/17 Anemia: Yes Asthma: No Cancer: No Cardiac Disorders: No 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, baseline confusion and dizziness) COPD: No CHF: No DVT: No Dementia: No Diabetes: Yes GI Disorders: Yes (gerd, gastric ulcer, dysphagia) Disorders: Yes (kidney stone in the past) HTN: Yes Hypercholesterolemia: Yes Liver Disease: No Psychiatric Problems: Yes (ANXIETY DEPRESSION) Seizures: Yes (S/P craniotomy for benign tumor - on Depakote for seizure prophylaxis) Thyroid Disease: No - Surgical History Abdominal Surgery: Yes Appendectomy: No Cardiac Surgery: No Cholecystectomy: Yes Lung Surgery: No Neurologic Surgery: Yes (removal left meningioma) Orthopedic Surgery: Yes (Bilateral knee replacement) - Immunization History Td Vaccination: Yes TDAP Vaccination: No Immunization Up to Date: No - Suicide/Smoking/Psychosocial Hx Smoking Status: No Smoking History: Never smoked Have you smoked in the past 12 months: No Number of Cigarettes Smoked Daily: 0 Cigars Per Day: 0 Information on smoking cessation initiated: No Hx Alcohol Use: No Drug/Substance Use Hx: No Substance Use Type: None Hx Substance Use Treatment: No Review of Systems - Review of Systems Comments:: 10/20/17 18:12 GENERAL/CONSTITUTIONAL: No fever or chills. No weakness. HEAD, EYES, EARS, NOSE AND THROAT: No change in vision. No ear pain or discharge. No sore throat. CARDIOVASCULAR: +Constant left breast pain as reported, no SOB. RESPIRATORY: No cough, wheezing, or hemoptysis. GASTROINTESTINAL: No nausea, vomiting, diarrhea or constipation. GENITOURINARY: No dysuria, frequency, or change in urination. MUSCULOSKELETAL: No joint or muscle swelling or pain. No neck or back pain. SKIN: No rash NEUROLOGIC: No headache, vertigo, loss of consciousness, or change in strength/ sensation. ENDOCRINE: No increased thirst. No abnormal weight change HEMATOLOGIC/LYMPHATIC: No anemia, easy bleeding, or history of blood clots. ALLERGIC/IMMUNOLOGIC: No hives or skin allergy. *Physical Exam - Vital Signs Last Vital Signs Temp Pulse Resp BP Pulse Ox 98.6 F 78 16 141/80 100 10/20/17 17:49 10/20/17 17:49 10/20/17 17:49 10/20/17 17:49 10/20/17 17:49 - Physical Exam Comments: 10/20/17 18:13 GENERAL: Awake, alert, and fully oriented, in no acute distress HEAD: No signs of trauma, normocephalic, atraumatic EYES: PERRLA, EOMI, sclera anicteric, conjunctiva clear ENT: Auricles normal inspection, hearing grossly normal, nares patent, oropharynx clear without exudates. Moist mucosa NECK: Normal ROM, supple, no lymphadenopathy, JVD, or masses LUNGS: +Left breast point TTP. No distress, speaks full sentences, clear to auscultation bilaterally HEART: Regular rate and rhythm, normal S1 and S2, no murmurs, rubs or gallops, peripheral pulses normal and equal bilaterally. ABDOMEN: Soft, nontender, normoactive bowel sounds. No guarding, no rebound. No masses EXTREMITIES: Normal inspection, Normal range of motion, no edema. No clubbing or cyanosis. NEUROLOGICAL: Cranial nerves II through XII grossly intact. Normal speech, normal gait, no focal sensorimotor deficits SKIN: Warm, Dry, normal turgor, no rashes or lesions noted. ED Treatment Course - LABORATORY CBC & Chemistry Diagram: 10/20/17 18:12 10/20/17 18:12 Medical Decision Making - Medical Decision Making 10/20/17 19:49 Ms. Sumner is a 71 yo female w/ pmh as described who presents for evaluation of Left breast point tenderness c/w patient's previous benign presentations. Patient additionally reporting she has run out of her home anxiety medications although she does not know the name and would like more. 10/20/17 20:36 EKG regular rate, regular rhythm, normal access, normal inteval, no ST elevations or depressions. Normal EKG. 10/20/17 20:44 CXR negative for acute process. Labs at patient baseline. Patient pain controlled with Vistaril. No concern for acute process at this time. Discharging patient to home w/ instructions to f/u at previously scheduled appt. w/ PCP next monday. *DC/Admit/Observation/Transfer Diagnosis at time of Disposition: Chest pain Qualifiers: Chest pain type: other chest pain Qualified Code(s): R07.89 - Other chest pain - Discharge Dispostion Disposition: HOME - Referrals - Patient Instructions Printed Discharge Instructions: DI for Atypical Chest Pain Additional Instructions: You were evaluated today in the ER for your left breast pain. No concerning process was found at this time. Please follow-up with primary care provider at previously scheduled appointment for next Monday. Return to ER if any fever, chills, change in breast pain, or other concerning symptoms. Print Language: CANADIAN - Post Discharge Activity
[2017-10-20 18:14] VITALS: BP 141/80; PULSE 78; TEMP 98.6; BMI 60.5
--- NOTE | 2017-10-20 18:45 | PDOC ---
Attending Attestation - HPI HPI: 10/20/17 20:29 The patient is a 71-year-old female with past medical history of HLD, HTN, COPD , CVA (residual altered balance, baseline confusion, and dizziness), diabetes, GERD, seizures s/p craniotomy for benign tumor and anxiety presents to the emergency department with L. breast pain. The patient was seen at the ED 2 days prior for similar pain, reports since then the pain has worsened. The patient reports associated symptoms of a headache. The patient reports taking motrin and Tylenol for the pain, without relief. The patient states she had an appointment with her PCP in 2 days. Allergies: aspirin and morphine Social history: None reported Surgical history: removal left meningioma, Bilateral knee replacement, craniotomy and Cholecystectomy PCP: Waldo Araujo MD GI: Dr. Ziggy Grubbs Telecommunications Support: Dr. Vargas. - Physicial Exam PE: 10/20/17 20:32 GENERAL: Awake, alert, and fully oriented, in no acute distress HEAD: No signs of trauma EYES: PERRLA, EOMI, sclera anicteric, conjunctiva clear ENT: Auricles normal inspection, hearing grossly normal, nares patent. Moist mucosa NECK: Normal ROM, supple, no lymphadenopathy, JVD, or masses LUNGS: (+) L. breast tenderness, no shingles or discharge. Breath sounds equal, clear to auscultation bilaterally. No wheezes, and no crackles HEART: Regular rate and rhythm, normal S1 and S2, no murmurs, rubs or gallops ABDOMEN: Soft, nontender, normoactive bowel sounds. No guarding, no rebound. No masses EXTREMITIES: Normal range of motion, no edema. No erythema or tenderness. DP/PT pulses 2+ and symmetric. Warm and well perfused. NEUROLOGICAL: Moves all extremities. Normal speech. SKIN: Warm, Dry, normal turgor, no rashes or lesions noted. - Medical Decision Making 10/20/17 20:32 Documentation prepared by Alexandra Mendoza, acting as director of medical services for Magnolia Higgins DO. <Alexandra Mendoza - Last Filed: 10/20/17 20:32> - Resident Resident Name: Abdoul Burgos - ED Attending Attestation I have performed the following: I have examined & evaluated the patient, The case was reviewed & discussed with the resident, I agree w/resident's findings & plan, Exceptions are as noted - Medical Decision Making 10/20/17 18:44 I, Dr. Magnolia Higgins, DO, attest that this document has been prepared under my direction and personally reviewed by me in its entirety. I further attest, that it accurately reflects all work, treatment, procedures and medical decision -making performed by me. 10/20/17 18:44 a/p: 71yo female with L breast TTP -no shingles, no bruising, no discharge -will send labs -ekg -will give motrin for pain -pt requesting to eat and drink 10/20/17 20:26 cxr clear labs reviewed cbc pending 10/20/17 20:46 cbc at baseline cxr clear stable for d/c to home <Magnolia Higgins - Last Filed: 10/20/17 20:46> Heart Score/ECG Review - ECG Intrepretation Comment:: 10/20/17 20:27 sinus at 72, nl axis, nl interval, no acute st/t wave findings <Magnolia Higgins - Last Filed: 10/20/17 20:46>
[2017-10-20] MEDS ORDERED: IBUPROFEN 600 MG TABLET (FP) PO ONE ×2 (18:54→18:57)
[2017-10-20 18:55] LABS: PROTHROMBIN TIME (PATIENT) 11.3 SEC (9.7-13.0)
[2017-10-20 19:07] LABS: ALBUMIN 3.1 g/dl (3.4-5.0); ALK PHOS 130 U/L (45-117); ANION GAP 10 MMOL/L (8-16); BILIRUBIN,TOTAL 0.2 mg/dL (0.2-1.0); BLOOD UREA NITROGEN 18 mg/dL (7-18); CALCIUM 8.5 mg/dL (8.5-10.1); CHLORIDE 102 mmol/L (98-107); CO2 26 mmol/L (21-32); CREATININE 0.5 mg/dL (0.55-1.02); GLUCOSE,RANDOM 131 mg/dL (74-106); POTASSIUM 4.3 mmol/L (3.5-5.1); SGOT/AST 20 U/L (15-37); SGPT/ALT 31 U/L (12-78); SODIUM 138 mmol/L (136-145); TOT PROT 6.4 g/dl (6.4-8.2)
[2017-10-20 20:31] LABS: BASO % 0.7 % (0-2.0); EOS % 2.3 % (0-4.5); HEMATOCRIT 30.9 % (32.4-45.2); HEMOGLOBIN 9.8 GM/dL (10.7-15.3); LYMPH % 24.5 % (8-40); MCH 23.9 pg (25.7-33.7); MCHC 31.8 g/dl (32.0-36.0); MEAN CELL VOLUME 75.3 fl (80-96); MEAN PLT VOLUME 7.6 fl (7.5-11.1); MONO % 18.1 % (3.8-10.2); NEUT % 54.4 % (42.8-82.8); PLATELET COUNT 258 K/MM3 (134-434); WHITE BLOOD COUNT 3.4 K/mm3 (4.0-10.0)
[2017-10-20] MEDS ORDERED: hydrOXYzine PAMOATE 25 MG CAPSULE (FP) PO ONE (20:47)
--- NOTE | 2017-10-23 11:13 | EKG ---
Test Reason : Blood Pressure : / mmHG Vent. Rate : 072 BPM Atrial Rate : 072 BPM P-R Int : 156 ms QRS Dur : 078 ms QT Int : 380 ms P-R-T Axes : 038 008 022 degrees QTc Int : 416 ms NORMAL SINUS RHYTHM NORMAL ECG WHEN COMPARED WITH ECG OF 19-OCT-2017 00:10, NO SIGNIFICANT CHANGE WAS FOUND Confirmed by J LUIS POWELL MD ([id number]) on 10/23/2017 11:13:11 AM Referred By: Confirmed By:J LUIS POWELL MD
== END 2017-10-20 22:17 | disposition home or self-care (01) ==
LOC: JER 17:36
DX: R07.89 Other chest pain (principal); I10 Essential (primary) hypertension; E78.00 Pure hypercholesterolemia, unspecified; E11.9 Type 2 diabetes mellitus without complications; K21.9 Gastro-esophageal reflux disease without esophagitis; F41.8 Other specified anxiety disorders; Z96.653 Presence of artificial knee joint, bilateral; Z87.19 Personal history of other diseases of the digestive system; I69.818 Other symptoms and signs involving cognitive functions following other cerebrovascular disease; Z86.011 Personal history of benign neoplasm of the brain
CPT/HCPCS: 36415; 71046-TC-FY; 80053; 83735; 84484; 85025; 85610; 93005; 93010; 99285-25

== ENCOUNTER 2017-10-24 18:34 | Emergency (ER) | payer OTHER ==
--- NOTE | 2017-10-24 19:12 | PDOC ---
Rapid Medical Evaluation Chief Complaint: Chest Pain Time Seen by Provider: 10/24/17 19:07 Medical Evaluation: Allergies Allergy/AdvReac Type Severity Reaction Status Date / Time aspirin Allergy Severe "NERVOUS" Verified 10/22/17 17:37 morphine Allergy Severe "ANXIETY-DE Verified 10/22/17 17:37 SPERATION" 10/24/17 19:08 c/o palpitations and left sided chest pain and headache. PE: patient alert ox3. breath sounds clear A: chest pain P: EKG labs chest xray patient to the ER for further management of care,. 10/24/17 19:11 Discharge Disposition - Diagnosis Chest pain Qualifiers: Chest pain type: chest pain on breathing Qualified Code(s): R07.1 - Chest pain on breathing; R07.81 - Pleurodynia - Referrals - Patient Instructions - Post Discharge Activity
[2017-10-24 19:16] VITALS: BP 129/61; PULSE 85; TEMP 99.9; BMI 36.8
[2017-10-24] MEDS ORDERED: ONDANSETRON 4 MG/2 ML VIAL IVPUSH ONE (19:25)
[2017-10-24] MEDS ORDERED: ACETAMINOPHEN 1000 MG/100 ML VIAL (NON FORMULARY) IVPB ONE (19:25)
[2017-10-24 19:47] LABS: BASO % 0.5 % (0-2.0); EOS % 1.2 % (0-4.5); HEMATOCRIT 31.7 % (32.4-45.2); HEMOGLOBIN 10.1 GM/dL (10.7-15.3); MCH 23.9 pg (25.7-33.7); MCHC 31.9 g/dl (32.0-36.0); MEAN CELL VOLUME 74.8 fl (80-96); MEAN PLT VOLUME 7.6 fl (7.5-11.1); MONO % 12.1 % (3.8-10.2); NEUT % 60.2 % (42.8-82.8); PLATELET COUNT 272 K/MM3 (134-434); RBC 4.24 M/mm3 (3.60-5.2); RDW 19.5 % (11.6-15.6); WHITE BLOOD COUNT 3.6 K/mm3 (4.0-10.0)
--- NOTE | 2017-10-24 20:01 | PDOC ---
History of Present Illness - General History Source: Patient Exam Limitations: No Limitations - History of Present Illness Presenting Symptoms: Chest Pain Timing/Duration: reports: constant Severity/Quality: reports: mild Location: reports: central Chest Pain Radiation: reports: no radiation Activities at Onset: reports: none Prior Chest Pain/Cardiac Workup: reports: Other (chest pain every day for several years) Nitro Today/Relief: Yes: no nitro taken today Aspirin Received prior to arrival (Core Measure): Yes: 81 mg x 1 Associated Symptoms: Yes: Denies symptoms <Florinda Gallagher - Last Filed: 10/24/17 21:03> <Domonique Wilkerson - Last Filed: 10/24/17 21:10> - General Chief Complaint: Chest Pain Stated Complaint: Palpitations Time Seen by Provider: 10/24/17 19:07 Past History - Past Medical History Anemia: Yes Asthma: No Cancer: No Cardiac Disorders: No 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, baseline confusion and dizziness) COPD: No CHF: No DVT: No Dementia: No Diabetes: Yes GI Disorders: Yes (gerd, gastric ulcer, dysphagia) Disorders: Yes (kidney stone in the past) HTN: Yes Hypercholesterolemia: Yes Liver Disease: No Psychiatric Problems: Yes (ANXIETY DEPRESSION) Seizures: Yes (S/P craniotomy for benign tumor - on Depakote for seizure prophylaxis) Thyroid Disease: No - Surgical History Abdominal Surgery: Yes Appendectomy: No Cardiac Surgery: No Cholecystectomy: Yes Lung Surgery: No Neurologic Surgery: Yes (removal left meningioma) Orthopedic Surgery: Yes (Bilateral knee replacement) - Immunization History Td Vaccination: Yes TDAP Vaccination: No Immunization Up to Date: No - Suicide/Smoking/Psychosocial Hx Smoking Status: No Smoking History: Never smoked Have you smoked in the past 12 months: No Number of Cigarettes Smoked Daily: 0 Cigars Per Day: 0 Information on smoking cessation initiated: No Hx Alcohol Use: No Drug/Substance Use Hx: No Substance Use Type: None Hx Substance Use Treatment: No <Florinda Gallagher - Last Filed: 10/24/17 21:03> <Domonique Wilkerson - Last Filed: 10/24/17 21:10> - Past Medical History Allergies/Adverse Reactions: Allergies Allergy/AdvReac Type Severity Reaction Status Date / Time aspirin Allergy Severe "NERVOUS" Verified 10/24/17 19:38 morphine Allergy Severe "ANXIETY-DE Verified 10/24/17 19:38 SPERATION" Home Medications: Ambulatory Orders Escitalopram Oxalate [Lexapro -] 10 mg PO DAILY 03/10/16 Metoprolol Succinate [Toprol XL -] 25 mg PO DAILY #30 tab.sr.24h 02/06/17 Acetaminophen [Tylenol .Regular Strength -] 325 mg PO Q6H PRN #30 tablet Cefuroxime Axetil [Cefuroxime] 500 mg PO BID #14 tablet 10/12/17 Cardiac Specific PMH - Complaint Specific PMHX Pacemaker: No <Florinda Gallagher - Last Filed: 10/24/17 21:03> *Physical Exam <Florinda Gallagher - Last Filed: 10/24/17 21:03> <Domonique Wilkerson - Last Filed: 10/24/17 21:10> - Vital Signs Last Vital Signs Temp Pulse Resp BP Pulse Ox 99.9 F H 85 16 129/61 97 10/24/17 19:09 10/24/17 19:09 10/24/17 19:09 10/24/17 19:09 10/24/17 19:09 - Physical Exam Comments: 10/24/17 21:04 GENERAL: Well developed, well nourished. Awake and alert. No acute distress. HEENT: Normocephalic, atraumatic. PERRLA, EOMI. No conjunctival pallor. Sclera are non- icteric. Moist mucous membranes. Oropharynx is clear. NECK: Supple. Full ROM. No JVD. Carotid pulses 2+ and symmetric, without bruits. No thyromegaly. No lymphadenopathy. CARDIOVASCULAR: Regular rate and rhythm. No murmurs, rubs, or gallops. Distal pulses are 2+ and symmetric. PULMONARY: No evidence of respiratory distress. Lungs clear to auscultation bilaterally. No wheezing, rales or rhonchi. ABDOMINAL: Soft. Non-tender. Non-distended. No rebound or guarding. No organomegaly. Normoactive bowel sounds. MUSCULOSKELETAL Normal range of motion at all joints. No bony deformities or tenderness. No CVA tenderness. EXTREMITIES: No cyanosis. No clubbing. No edema. No calf tenderness. SKIN: Warm and dry. Normal capillary refill. No rashes. No jaundice. NEUROLOGICAL: Alert and oriented X3. appropriate. Cranial nerves 2-12 intact. No deficits to light touch and temperature in face, upper extremities and lower extremities. No motor deficits in the in face, upper extremities and lower extremities. Normoreflexic in the upper and lower extremities. Normal speech. Toes are down- going bilaterally. Gait is normal without ataxia. PSYCHIATRIC: (+)Mild anxiety Cooperative. Good eye contact. Appropriate mood and affect. Documentation prepared by Domonique Wilkerson, acting as coroner/medical examiner for Florinda Gallagher MD. (Domonique Wilkerson) ED Treatment Course - LABORATORY CBC & Chemistry Diagram: 10/24/17 19:23 10/24/17 19:23 <Florinda Gallagher - Last Filed: 10/24/17 21:03> - LABORATORY CBC & Chemistry Diagram: 10/24/17 19:23 10/24/17 19:23 <Domonique Wilkerson - Last Filed: 10/24/17 21:10> - ADDITIONAL ORDERS Additional order review: Laboratory Results 10/24/17 10/24/17 19:23 19:23 Sodium 134 L Potassium 4.3 Chloride 102 Carbon Dioxide 25 Anion Gap 7 L BUN 13 Creatinine 0.6 Creat Clearance w eGFR > 60 Random Glucose 128 H Calcium 8.9 Total Bilirubin 0.3 AST 26 ALT 31 Alkaline Phosphatase 135 H Troponin I < 0.02 Total Protein 7.0 Albumin 3.4 Lipase 128 10/24/17 19:23 RBC 4.24 MCV 74.8 L MCHC 31.9 L RDW 19.5 H MPV 7.6 Neutrophils % 60.2 Lymphocytes % 26.0 Monocytes % 12.1 H Eosinophils % 1.2 Basophils % 0.5 - Medications Given in the ED: ED Medications Discontinued Medications Generic Name Dose Route Start Last Admin Trade Name Freq PRN Reason Stop Dose Admin Acetaminophen 1,000 mg 10/24/17 19:25 10/24/17 20:15 Ofirmev Injection - IVPB 10/24/17 19:26 Not Given ONCE ONE Ondansetron HCl 4 mg 10/24/17 19:25 10/24/17 20:16 Zofran Injection IVPUSH 10/24/17 19:26 Not Given ONCE ONE *DC/Admit/Observation/Transfer <Florinda Gallagher - Last Filed: 10/24/17 21:03> <Domonique Wilkerson - Last Filed: 10/24/17 21:10> Diagnosis at time of Disposition: Chest pain Qualifiers: Chest pain type: chest pain on breathing Qualified Code(s): R07.1 - Chest pain on breathing - Discharge Dispostion Disposition: HOME - Referrals Referrals: Waldo Mabry MD [Primary Care Provider] - - Patient Instructions Printed Discharge Instructions: DI for Atypical Chest Pain Additional Instructions: please follow up with your regular doctor Return for new or worsening symptoms - Post Discharge Activity
[2017-10-24 20:10] LABS: ALBUMIN 3.4 g/dl (3.4-5.0); ANION GAP 7 MMOL/L (8-16); BILIRUBIN,TOTAL 0.3 mg/dL (0.2-1.0); BLOOD UREA NITROGEN 13 mg/dL (7-18); CALCIUM 8.9 mg/dL (8.5-10.1); CHLORIDE 102 mmol/L (98-107); CO2 25 mmol/L (21-32); CREATININE 0.6 mg/dL (0.55-1.02); GLUCOSE,RANDOM 128 mg/dL (74-106); POTASSIUM 4.3 mmol/L (3.5-5.1); SGOT/AST 26 U/L (15-37); SGPT/ALT 31 U/L (12-78); SODIUM 134 mmol/L (136-145)
[2017-10-24 20:12] LABS: ALK PHOS 135 U/L (45-117)
--- NOTE | 2017-10-25 11:50 | EKG ---
Test Reason : Blood Pressure : / mmHG Vent. Rate : 070 BPM Atrial Rate : 070 BPM P-R Int : 174 ms QRS Dur : 074 ms QT Int : 382 ms P-R-T Axes : 007 -09 007 degrees QTc Int : 412 ms NORMAL SINUS RHYTHM MINIMAL VOLTAGE CRITERIA FOR LVH, MAY BE NORMAL VARIANT BORDERLINE ECG WHEN COMPARED WITH ECG OF 22-OCT-2017 21:24, NO SIGNIFICANT CHANGE WAS FOUND Confirmed by LORENZO SEVILLA, ANNITA ([id number]) on 10/25/2017 11:49:57 AM Referred By: Confirmed By:ANNITA VENTURA MD
== END 2017-10-24 21:20 | disposition home or self-care (01) ==
LOC: JER 18:34
DX: R07.9 Chest pain, unspecified (principal); D64.9 Anemia, unspecified; I10 Essential (primary) hypertension; E11.9 Type 2 diabetes mellitus without complications; E78.00 Pure hypercholesterolemia, unspecified; F41.8 Other specified anxiety disorders; Z87.19 Personal history of other diseases of the digestive system; Z96.653 Presence of artificial knee joint, bilateral; Z86.011 Personal history of benign neoplasm of the brain; I69.818 Other symptoms and signs involving cognitive functions following other cerebrovascular disease; I69.893 Ataxia following other cerebrovascular disease
CPT/HCPCS: 36415; 71046-TC-FY; 80053; 83690; 84484; 85025; 93005; 93010; 99281-25; 99284-25

== ENCOUNTER 2017-10-28 21:12 | Emergency (ER) | payer OTHER ==
[2017-10-28 21:22] VITALS: BP 143/72; PULSE 84; TEMP 99.1; BMI 32.4
--- NOTE | 2017-10-28 21:36 | PDOC ---
History of Present Illness - General Chief Complaint: Headache Stated Complaint: HEADACHE, PALPITATION Time Seen by Provider: 10/28/17 21:35 History Source: Patient Exam Limitations: No Limitations - History of Present Illness Initial Comments: 10/29/17 00:16 Ms. 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 She states the chest pain began in the evening in the left chest, sharp, 10/10 non radiating with no relieving factors that is aggravated when pushed on. She states her headaches are in the frontal region without radiation. She denies SOB, fever, chills, FND, recent visual changes, abdominal pain, nausea, vomiting, diarrhea, melena, and leg pain and swelling. She was seen at [facility] yesterday for the same complaint and was discharged without conflict. She states she did not take tylenol at home for pain despite being repeatedly instructed to do so. Allergies: ASA and morphine Social: Denies drugs, alcohol, and tobacco use. Past History - Past Medical History Allergies/Adverse Reactions: Allergies Allergy/AdvReac Type Severity Reaction Status Date / Time aspirin Allergy Severe "NERVOUS" Verified 10/28/17 21:14 morphine Allergy Severe "ANXIETY-DE Verified 10/28/17 21:14 SPERATION" Home Medications: Ambulatory Orders Escitalopram Oxalate [Lexapro -] 10 mg PO DAILY 03/10/16 Metoprolol Succinate [Toprol XL -] 25 mg PO DAILY #30 tab.sr.24h 02/06/17 Acetaminophen [Tylenol .Regular Strength -] 325 mg PO Q6H PRN #30 tablet Cefuroxime Axetil [Cefuroxime] 500 mg PO BID #14 tablet 10/12/17 Anemia: Yes Asthma: No Cancer: No Cardiac Disorders: No 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, baseline confusion and dizziness) COPD: No CHF: No DVT: No Dementia: No Diabetes: Yes GI Disorders: Yes (gerd, gastric ulcer, dysphagia) Disorders: Yes (kidney stone in the past) HTN: Yes Hypercholesterolemia: Yes Liver Disease: No Psychiatric Problems: Yes (ANXIETY DEPRESSION) Seizures: Yes (S/P craniotomy for benign tumor - on Depakote for seizure prophylaxis) Thyroid Disease: No - Surgical History Abdominal Surgery: Yes Appendectomy: No Cardiac Surgery: No Cholecystectomy: Yes Lung Surgery: No Neurologic Surgery: Yes (removal left meningioma) Orthopedic Surgery: Yes (Bilateral knee replacement) - Immunization History Td Vaccination: Yes TDAP Vaccination: No Immunization Up to Date: No - Suicide/Smoking/Psychosocial Hx Smoking Status: No Smoking History: Never smoked Have you smoked in the past 12 months: No Number of Cigarettes Smoked Daily: 0 Cigars Per Day: 0 Hx Alcohol Use: No Drug/Substance Use Hx: No Substance Use Type: None Hx Substance Use Treatment: No Review of Systems - Review of Systems Able to Perform ROS?: Yes Constitutional: No: Chills, Diaphoresis, Weakness HEENTM: No: Blurred Vision, Recent change in vision, Ear Pain, Nose Pain, Throat Pain, Mouth Pain Respiratory: No: Cough, Shortness of Breath Cardiac (ROS): Yes: Chest Pain. No: Edema, Lightheadedness, Syncope, Chest Tightness ABD/GI: No: Constipated, Diarrhea, Nausea, Poor Fluid Intake, Rectal Bleeding, Vomiting, Abdominal cramping, Tarry Stools : No: Hematuria Musculoskeletal: No: Back Pain Integumentary: No: Rash Neurological: Yes: Headache. No: Numbness, Paresthesia, Tingling, Tremors, Weakness, Unsteady Gait, Dizziness Psychiatric: No: Stressors Endocrine: No: Increased Hunger Hematologic/Lymphatic: No: Anemia *Physical Exam - Vital Signs Last Vital Signs Temp Pulse Resp BP Pulse Ox 99.1 F 84 18 143/72 96 10/28/17 21:15 10/28/17 21:15 10/28/17 21:15 10/28/17 21:15 10/28/17 21:15 - Physical Exam General Appearance: Yes: Nourished, Appropriately Dressed HEENT: positive: EOMI, KARL Neck: positive: Trachea midline. negative: Lymphadenopathy (R), Lymphadenopathy (L) Respiratory/Chest: positive: Chest Tender (tender to palpation in the left chest that reproduced and exacerbates her pain), Lungs Clear, Normal Breath Sounds. negative: Respiratory Distress, Accessory Muscle Use Cardiovascular: positive: Regular Rhythm, S1, S2. negative: Systolic Murmur Vascular Pulses: Dorsalis-Pedis (R): 3+, Doralis-Pedis (L): 3+ Gastrointestinal/Abdominal: positive: Normal Bowel Sounds. negative: Tender Lymphatic: negative: Adenopathy Musculoskeletal: positive: Normal Inspection. negative: CVA Tenderness Extremity: positive: Normal Capillary Refill, Normal Inspection, Normal Range of Motion. 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 negative: Facial Droop, Numbness, Sensory Deficit, Confused, Disoriented Heart Score/ECG Review - ECG Intrepretation Comment:: 10/29/17 00:22 ventricular rate 75 bpm, 162 ms MO, QRS 86 ms, QTc [address] elevations or depressions. Normal sinus ED Treatment Course - LABORATORY CBC & Chemistry Diagram: 10/28/17 22:00 10/28/17 22:00 Medical Decision Making - Medical Decision Making 10/29/17 00:22 72 yo F well known to the department presenting with the similar complaints as to previous visits likely costochondritis with a component of anxiety vs ACS. ddx: ACS, pericarditis, costochondritis, pleuritis, Initial vitals: Initial Vital Signs Temp Pulse Resp BP Pulse Ox 99.1 F 84 18 143/72 96 10/28/17 21:15 10/28/17 21:15 10/28/17 21:15 10/28/17 21:15 10/28/17 21:15 Work up Laboratory Tests 10/28/17 10/28/17 22:00 22:00 WBC 4.7 RBC 4.42 Hgb 10.4 L Hct 32.9 MCV 74.4 L MCH 23.6 L MCHC 31.7 L RDW 19.7 H Plt Count 299 MPV 7.3 L Absolute Neuts (auto) 2.5 Neutrophils % 52.4 Lymphocytes % 27.8 Monocytes % 17.3 H Eosinophils % 2.1 Basophils % 0.4 Nucleated RBC % 0 Sodium 131 L Potassium 4.3 Chloride 96 L Carbon Dioxide 23 Anion Gap 12 BUN 8 Creatinine 0.5 L Creat Clearance w eGFR > 60 Random Glucose 97 Calcium 8.8 Total Bilirubin 0.4 AST 32 ALT 36 Alkaline Phosphatase 158 H Creatine Kinase 44 Troponin I < 0.02 Total Protein 7.2 Albumin 3.5 EKG was within normal limits. Trops within normal limits. She was given 975 mg of tylenol that gave some relief for her headache and chest pain. She was given 15 mg of toradol. She states her chest pain is gone and her headache improved however she is refusing to leave the department because "I am scared I will in the car ride back home". I repeatedly explained to Billie that her labs were within normal limits and that because her chest pain is gone she is medically cleared for discharge with follow up care with her PMD. She again refused to leave the department. Dispo: DC to home *DC/Admit/Observation/Transfer Diagnosis at time of Disposition: Atypical chest pain - Discharge Dispostion Disposition: HOME Decision to Admit order: No - Referrals Referrals: Waldo Mabry MD [Primary Care Provider] - - Patient Instructions Additional Instructions: You have been seen in the emergency department for chest pain. We evaluated your labs and they were within normal limits. Your EKG was within normal limits. Your pain is likely muscular in nature. Please take tylenol as directed on the label for your pain. Please follow up with your primary medical doctor within 24 hours for follow up care. This is important to your overall healthcare management; your care here is not considered complete until you do this. Please return to the emergency department if your pain worsens or you develop new concerning symptoms. - Post Discharge Activity
[2017-10-28 22:03] LABS: BASO % 0.4 % (0-2.0); EOS % 2.1 % (0-4.5); HEMATOCRIT 32.9 % (32.4-45.2); HEMOGLOBIN 10.4 GM/dL (10.7-15.3); LYMPH % 27.8 % (8-40); MCH 23.6 pg (25.7-33.7); MCHC 31.7 g/dl (32.0-36.0); MEAN CELL VOLUME 74.4 fl (80-96); MEAN PLT VOLUME 7.3 fl (7.5-11.1); MONO % 17.3 % (3.8-10.2); NEUT % 52.4 % (42.8-82.8); PLATELET COUNT 299 K/MM3 (134-434); RBC 4.42 M/mm3 (3.60-5.2); RDW 19.7 % (11.6-15.6); WHITE BLOOD COUNT 4.7 K/mm3 (4.0-10.0)
[2017-10-28] MEDS ORDERED: ACETAMINOPHEN 500 MG TABLET (FP) PO ONE ×2 (22:21→22:34)
[2017-10-28 22:24] LABS: ALBUMIN 3.5 g/dl (3.4-5.0); ANION GAP 12 MMOL/L (8-16); BILIRUBIN,TOTAL 0.4 mg/dL (0.2-1.0); BLOOD UREA NITROGEN 8 mg/dL (7-18); CALCIUM 8.8 mg/dL (8.5-10.1); CHLORIDE 96 mmol/L (98-107); CO2 23 mmol/L (21-32); CREATININE 0.5 mg/dL (0.55-1.3); GLUCOSE,RANDOM 97 mg/dL (74-106); POTASSIUM 4.3 mmol/L (3.5-5.1); SGOT/AST 32 U/L (15-37); SGPT/ALT 36 U/L (13-61); SODIUM 131 mmol/L (136-145); TOT PROT 7.2 g/dl (6.4-8.2)
[2017-10-28 22:26] LABS: ALK PHOS 158 U/L (45-117)
[2017-10-28] MEDS ORDERED: ACETAMINOPHEN 325 MG TABLET (FP) ONE (22:36)
--- NOTE | 2017-10-28 22:39 | PDOC ---
Attending Attestation - Resident Resident Name: Damian Luevano - ED Attending Attestation I have performed the following: I have examined & evaluated the patient, The case was reviewed & discussed with the resident, I agree w/resident's findings & plan, Exceptions are as noted - HPI HPI: 10/28/17 22:37 71 F with h/o HLD, DM, HTN, COPD, CVA (residual altered balance, baseline confusion and dizziness), chronic chest pain, GERD, seizures, presenting to ED with chest pain and headache. Pt is well known to ED and has had multiple similar presentations. Pt reports midsternal chest pressure, consistent with prior presentations. Pt denies SOB. Denies leg swelling. States headache is similar to her usual headaches. No F/C. No neck pain. No N/V. - Physicial Exam PE: 10/28/17 22:38 "GENERAL: Awake, alert, and fully oriented, in no acute distress. HEAD: No signs of trauma EYES: PERRLA, EOMI, sclera anicteric, conjunctiva clear ENT: Auricles normal inspection, hearing grossly normal, nares patent, oropharynx clear without exudates. Moist mucosa NECK: Nontender, no stepoffs, Normal ROM, supple, no lymphadenopathy, JVD, or masses LUNGS: Breath sounds equal, clear to auscultation bilaterally. No wheezes, and no crackles HEART: Regular rate and rhythm, normal S1 and S2, no murmurs, rubs or gallops ABDOMEN: Soft, nontender, normoactive bowel sounds. No guarding, no rebound. No masses EXTREMITIES: Normal range of motion, no edema. No clubbing or cyanosis. No cords, erythema, or tenderness NEUROLOGICAL: Cranial nerves II through XII intact. 5/5 strength and sensation in all extremities, Normal speech, normal gait, normal cerebellar function SKIN: Warm, Dry, normal turgor, no rashes or lesions noted." - Medical Decision Making 10/28/17 22:38 72 F with chronic chest pain and headaches presenting with chest pain and headache. EKG nonischemic. GALLARDO similar to prior headaches. - Labs, trop - Tylenol 10/29/17 00:48 Labs wnl Pt is well appearing, with normal vitals. Clinically stable for DC at this time. I discussed the physical exam findings, ancillary test results and final diagnoses with the patient. I answered all of the patient's questions. The patient was satisfied with the care received and felt comfortable with the discharge plan and treatment plan. The patient agrees to follow up with the primary care physician within 24-72 hours.
[2017-10-28] MEDS ORDERED: KETOROLAC TROMETHAMINE 15 MG/ML VIAL IM ONE (23:39)
[2017-10-28] MEDS ORDERED: KETOROLAC TROMETHAMINE 15 MG/ML VIAL ONE (23:43)
--- NOTE | 2017-10-29 21:20 | EKG ---
Test Reason : Blood Pressure : / mmHG Vent. Rate : 075 BPM Atrial Rate : 075 BPM P-R Int : 162 ms QRS Dur : 086 ms QT Int : 386 ms P-R-T Axes : 037 003 031 degrees QTc Int : 431 ms NORMAL SINUS RHYTHM NORMAL ECG WHEN COMPARED WITH ECG OF 24-OCT-2017 20:10, NO SIGNIFICANT CHANGE WAS FOUND Confirmed by MITCH HEREDIA MD ([id number]) on 10/29/2017 9:20:09 PM Referred By: Confirmed By:MITCH HEREDIA MD
== END 2017-10-29 01:13 | disposition home or self-care (01) ==
LOC: JER 21:12
PROC: 3E0233Z Introduction of Anti-inflammatory into Muscle, Percutaneous Approach (ICD-10-PCS; principal; 2017-10-28)
DX: R07.89 Other chest pain (principal); I10 Essential (primary) hypertension; E11.9 Type 2 diabetes mellitus without complications; E78.5 Hyperlipidemia, unspecified; K21.9 Gastro-esophageal reflux disease without esophagitis; F41.8 Other specified anxiety disorders; I69.819 Unspecified symptoms and signs involving cognitive functions following other cerebrovascular disease; I69.893 Ataxia following other cerebrovascular disease; Z87.19 Personal history of other diseases of the digestive system; Z86.69 Personal history of other diseases of the nervous system and sense organs; Z86.011 Personal history of benign neoplasm of the brain
CPT/HCPCS: 36415; 80053; 82550; 84484; 85025; 93005; 93010; 96372; 99281-25

== ENCOUNTER 2017-10-30 06:14 | Emergency (ER) | payer OTHER ==
[2017-10-30 06:22] VITALS: BMI 36.8
[2017-10-30] MEDS ORDERED: ACETAMINOPHEN 325 MG TABLET (FP) PO ONE (06:46)
[2017-10-30] MEDS ORDERED: ACETAMINOPHEN 325 MG TABLET (FP) ONE (06:51)
--- NOTE | 2017-10-30 07:05 | PDOC ---
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 States the chest pain started yesterday, 08/22, sharp reproducible, took Tylenol yesterday. On arrival to the ED is requesting pain meds. Patient has been seen in the by cardiology on 10/12/17 and dx with chest wall pain. Has had several ECHO and holter with no findings. Patient was last seen in this ED on for this pain, work up was neg. Seen several times this month for CP cxr 10/11, 10/19, 10/20 were neg. PMD: Dr. Mcnulty PMHX: as above ALL: ASA morphine GENERAL/CONSTITUTIONAL: [No fever or chills. No weakness. No weight change.] HEAD, EYES, EARS, NOSE AND THROAT: [No change in vision. No ear pain or discharge. No sore throat.] CARDIOVASCULAR: (+) chest pain (-) shortness of breath.] RESPIRATORY: [No cough, wheezing, or hemoptysis.] GASTROINTESTINAL: [No nausea, vomiting, diarrhea or constipation. No rectal bleeding.] GENITOURINARY: [No dysuria, frequency, or change in urination.] MUSCULOSKELETAL: [No joint or muscle swelling or pain. No neck or back pain.] SKIN AND BREASTS: [No rash or easy bruising.] NEUROLOGIC: (+) headache, (-) vertigo, loss of consciousness, or loss of sensation.] PSYCHIATRIC: (+) depression or anxiety.] ENDOCRINE: [No increased thirst. No abnormal weight change.] HEMATOLOGIC/LYMPHATIC: [No anemia, easy bleeding, or history of blood clots.] ALLERGIC/IMMUNOLOGIC: [No hives or skin allergy. No latex allergy.] GENERAL: [The patient is awake, alert, and fully oriented, in no acute distress. ] HEAD: [Normal with no signs of trauma.] EYES: [Pupils equal, round and reactive to light, extraocular movements intact, sclera anicteric, conjunctiva clear.] ENT: [Ears normal, nares patent, oropharynx clear without exudates. Moist mucous membranes.] NECK: [Normal range of motion, supple without lymphadenopathy, JVD, or masses.] LUNGS: [Breath sounds equal, clear to auscultation bilaterally. No wheezes, and no crackles.] HEART: [Regular rate and rhythm, normal S1 and S2 without murmur, rub, (+) tenderness chest wall left ] ABDOMEN: [Soft, nontender, normoactive bowel sounds. No guarding, no rebound. No masses.] EXTREMITIES: [Normal range of motion, no edema. No clubbing or cyanosis. No cords, erythema, or tenderness.] NEUROLOGICAL: [Cranial nerves II through XII grossly intact. Normal speech, normal gait.] PSYCH: [Normal mood, normal affect.] Past History - Past Medical History Allergies/Adverse Reactions: Allergies Allergy/AdvReac Type Severity Reaction Status Date / Time aspirin Allergy Severe "NERVOUS" Verified 10/30/17 06:18 morphine Allergy Severe "ANXIETY-DE Verified 10/30/17 06:18 SPERATION" Home Medications: Ambulatory Orders Escitalopram Oxalate [Lexapro -] 10 mg PO DAILY 03/10/16 Metoprolol Succinate [Toprol XL -] 25 mg PO DAILY #30 tab.sr.24h 02/06/17 Acetaminophen [Tylenol .Regular Strength -] 325 mg PO Q6H PRN #30 tablet Cefuroxime Axetil [Cefuroxime] 500 mg PO BID #14 tablet 10/12/17 Anemia: Yes Asthma: No Cancer: No Cardiac Disorders: No 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, baseline confusion and dizziness) COPD: No CHF: No DVT: No Dementia: No Diabetes: Yes GI Disorders: Yes (gerd, gastric ulcer, dysphagia) Disorders: Yes (kidney stone in the past) HTN: Yes Hypercholesterolemia: Yes Liver Disease: No Psychiatric Problems: Yes (ANXIETY DEPRESSION) Seizures: Yes (S/P craniotomy for benign tumor - on Depakote for seizure prophylaxis) Thyroid Disease: No - Surgical History Abdominal Surgery: Yes Appendectomy: No Cardiac Surgery: No Cholecystectomy: Yes Lung Surgery: No Neurologic Surgery: Yes (removal left meningioma) Orthopedic Surgery: Yes (Bilateral knee replacement) - Immunization History Td Vaccination: Yes TDAP Vaccination: No Immunization Up to Date: No - Suicide/Smoking/Psychosocial Hx Smoking Status: No Smoking History: Never smoked Have you smoked in the past 12 months: No Number of Cigarettes Smoked Daily: 0 Cigars Per Day: 0 Hx Alcohol Use: No Drug/Substance Use Hx: No Substance Use Type: None Hx Substance Use Treatment: No Cardiac Specific PMH - Complaint Specific PMHX Pacemaker: No *Physical Exam - Vital Signs Last Vital Signs Temp Pulse Resp BP Pulse Ox 99.6 F 70 18 117/77 100 10/30/17 06:18 10/30/17 06:18 10/30/17 06:37 10/30/17 06:18 10/30/17 06:18 ED Treatment Course - Medications Given in the ED: ED Medications Discontinued Medications Generic Name Dose Route Start Last Admin Trade Name Freq PRN Reason Stop Dose Admin Acetaminophen 650 mg 10/30/17 06:46 10/30/17 06:50 Tylenol - PO 10/30/17 06:47 650 mg ONCE ONE Administration Medical Decision Making - Medical Decision Making 10/30/17 06:49 Patient is a 72 year old female with h/oHTN, COPD, CVA, HLD, DM, GERD, Seizures 2/2 craniotomy for benign meningioma, chronic chest pain well known to this and other ED here with c/o left sided chest pain and headache. Patient has had multiple visits to this ED this month for the same chest pain and GALLARDO. will get tylenol ekg EKG SR rate 62, LAD, (-) ST-T wave changes. Endorsed to AM team pending disposition *DC/Admit/Observation/Transfer Diagnosis at time of Disposition: Chest pain Qualifiers: Chest pain type: intercostal pain Qualified Code(s): R07.82 - Intercostal pain Chronic headache Qualifiers: Headache type: unspecified Intractability: not intractable Qualified Code(s): R51 - Headache - Referrals Referrals: Waldo Mabry MD [Primary Care Provider] - - Patient Instructions - Post Discharge Activity
--- NOTE | 2017-10-30 07:39 | PDOC ---
*Physical Exam - Vital Signs Last Vital Signs Temp Pulse Resp BP Pulse Ox 99.6 F 60 17 115/61 95 10/30/17 06:18 10/30/17 07:21 10/30/17 07:21 10/30/17 07:21 10/30/17 07:21 - Physical Exam General Appearance: Yes: Appropriately Dressed. No: Apparent Distress HEENT: positive: Normal Voice Neck: positive: Supple Respiratory/Chest: positive: Lungs Clear, Normal Breath Sounds. negative: Respiratory Distress Cardiovascular: positive: Regular Rate, S1, S2 Integumentary: positive: Dry, Warm Neurologic: positive: Fully Oriented, Alert, Normal Mood/Affect ED Treatment Course - Medications Given in the ED: ED Medications Discontinued Medications Generic Name Dose Route Start Last Admin Trade Name Chance PRN Reason Stop Dose Admin Acetaminophen 650 mg 10/30/17 06:46 10/30/17 06:50 Tylenol - PO 10/30/17 06:47 650 mg ONCE ONE Administration Medical Decision Making - Medical Decision Making 10/30/17 07:33 Patient signed out to me at 7 AM Patient is a 72-year-old female with multiple comorbidities, here w/ recurrent CP. Per records pt has h/o chronic CP with numerous ED visits, usually discharged from ED, last ED visit 2 days ago w/ neg w/u, stress test 05/2017 was negative per records, seen by cards n prior visit who deemed CP possibly related to pt's anxiety. Per wears with a prior team. EKG unremarkable. Troponin pending. Pt since been given tylenol and is currently pain-free. Anticipate discharge home 10/30/17 10:16 Trop neg. Pt pain free on reassessment. Stable for dc w/ PMD and cards f/u *DC/Admit/Observation/Transfer Diagnosis at time of Disposition: Chest pain Qualifiers: Chest pain type: intercostal pain Qualified Code(s): R07.82 - Intercostal pain Chronic headache Qualifiers: Headache type: unspecified Intractability: not intractable Qualified Code(s): R51 - Headache - Discharge Dispostion Disposition: HOME Condition at time of disposition: Improved - Referrals Referrals: Waldo Mabry MD [Primary Care Provider] - - Patient Instructions Printed Discharge Instructions: DI for Atypical Chest Pain Additional Instructions: Please follow up with your PMD and home service director - Post Discharge Activity
--- NOTE | 2017-10-30 09:56 | EKG ---
Test Reason : Blood Pressure : / mmHG Vent. Rate : 062 BPM Atrial Rate : 062 BPM P-R Int : 170 ms QRS Dur : 078 ms QT Int : 422 ms P-R-T Axes : -08 -03 010 degrees QTc Int : 428 ms NORMAL SINUS RHYTHM MINIMAL VOLTAGE CRITERIA FOR LVH, MAY BE NORMAL VARIANT BORDERLINE ECG WHEN COMPARED WITH ECG OF 28-OCT-2017 21:40, NO SIGNIFICANT CHANGE WAS FOUND Confirmed by ANDRE SEVILLA, J LUIS ([id number]) on 10/30/2017 9:55:28 AM Referred By: Confirmed By:J LUIS POWELL MD
[2017-10-30 11:22] VITALS: BP 159/63; PULSE 65; TEMP 98.1
== END 2017-10-30 13:51 | disposition home or self-care (01) ==
LOC: JER 06:14
DX: R07.82 Intercostal pain (principal); R51 Headache; I10 Essential (primary) hypertension; E78.5 Hyperlipidemia, unspecified; J44.9 Chronic obstructive pulmonary disease, unspecified; E11.9 Type 2 diabetes mellitus without complications; K21.9 Gastro-esophageal reflux disease without esophagitis
CPT/HCPCS: 36415; 84484; 93005; 93010; 99283-25

== ENCOUNTER 2017-11-01 18:21 | Emergency (ER) | payer OTHER ==
--- NOTE | 2017-11-01 18:31 | PDOC ---
Rapid Medical Evaluation Time Seen by Provider: 11/01/17 18:30 Medical Evaluation: Allergies Allergy/AdvReac Type Severity Reaction Status Date / Time aspirin Allergy Severe "NERVOUS" Verified 10/30/17 06:18 morphine Allergy Severe "ANXIETY-DE Verified 10/30/17 06:18 SPERATION" 11/01/17 18:32 I have performed a brief in-person evaluation of this patient. The patient presents with a chief complaint of:L sided CP a,d GALLARDO since last night. Pt well known to the ED w/ h/o HTN, DM, CVA, COPD, anxiety, depression, numerous ED visits for CP, last seen 2 days ago w/ neg w/u and discharged from ER. Stress test 05/2017 neg here at [facility]. Seen by cards during 1 inpt stay who deemed CP possibly related to pt's anxiety. Pt resides alone. Pertinent physical exam findings:Stable I have ordered the following:ekg/labs The patient will proceed to the ED for further evaluation. Discharge Disposition - Diagnosis Atypical chest pain - Referrals - Patient Instructions - Post Discharge Activity
[2017-11-01 18:35] VITALS: BMI 32.4
[2017-11-01 19:46] LABS: BASO % 0.5 % (0-2.0); EOS % 1.9 % (0-4.5); HEMATOCRIT 32.1 % (32.4-45.2); HEMOGLOBIN 10.2 GM/dL (10.7-15.3); LYMPH % 23.3 % (8-40); MCH 23.9 pg (25.7-33.7); MCHC 31.8 g/dl (32.0-36.0); MEAN CELL VOLUME 75.3 fl (80-96); MEAN PLT VOLUME 7.4 fl (7.5-11.1); MONO % 10.7 % (3.8-10.2); NEUT % 63.6 % (42.8-82.8); PLATELET COUNT 329 K/MM3 (134-434); RBC 4.27 M/mm3 (3.60-5.2); WHITE BLOOD COUNT 5.7 K/mm3 (4.0-10.0)
[2017-11-01] MEDS ORDERED: ACETAMINOPHEN 500 MG TABLET (FP) PO ONE (20:00)
--- NOTE | 2017-11-01 20:07 | PDOC ---
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 The patient reports a month long history of headache and chest pain. HEadache is intermittent, global and of gradual onset when it begins. The patient was recently evaluated in the ED 10/30 for similar symptoms with a negative workup. She reports she did not take anything for her symptoms today. She denies any alleviating or exacerbating factors. She denies recent fevers, chills, or dizziness. Denies focal weakness/numbness, dizziness. She denies recent nausea, vomit, diarrhea or constipation. She denies recent dysuria, frequency, urgency or hematuria. She denies recent shortness of breath. Allergies: Aspirin. Morphine. Primary Care Physician: Dr. Mabry Past History - Past Medical History Allergies/Adverse Reactions: Allergies Allergy/AdvReac Type Severity Reaction Status Date / Time aspirin Allergy Severe "NERVOUS" Verified 11/01/17 18:32 morphine Allergy Severe "ANXIETY-DE Verified 11/01/17 18:32 SPERATION" Home Medications: Ambulatory Orders Escitalopram Oxalate [Lexapro -] 10 mg PO DAILY 03/10/16 Metoprolol Succinate [Toprol XL -] 25 mg PO DAILY #30 tab.sr.24h 02/06/17 Acetaminophen [Tylenol .Regular Strength -] 325 mg PO Q6H PRN #30 tablet Cefuroxime Axetil [Cefuroxime] 500 mg PO BID #14 tablet 10/12/17 Anemia: Yes Asthma: No Cancer: No Cardiac Disorders: No 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, baseline confusion and dizziness) COPD: No CHF: No DVT: No Dementia: No Diabetes: Yes GI Disorders: Yes (gerd, gastric ulcer, dysphagia) Disorders: Yes (kidney stone in the past) HTN: Yes Hypercholesterolemia: Yes Liver Disease: No Psychiatric Problems: Yes (ANXIETY DEPRESSION) Seizures: Yes (S/P craniotomy for benign tumor - on Depakote for seizure prophylaxis) Thyroid Disease: No - Surgical History Abdominal Surgery: Yes Appendectomy: No Cardiac Surgery: No Cholecystectomy: Yes Lung Surgery: No Neurologic Surgery: Yes (removal left meningioma) Orthopedic Surgery: Yes (Bilateral knee replacement) - Immunization History Td Vaccination: Yes TDAP Vaccination: No Immunization Up to Date: No - Suicide/Smoking/Psychosocial Hx Smoking Status: No Smoking History: Never smoked Have you smoked in the past 12 months: No Number of Cigarettes Smoked Daily: 0 Cigars Per Day: 0 Hx Alcohol Use: No Drug/Substance Use Hx: No Substance Use Type: None Hx Substance Use Treatment: No Review of Systems - Review of Systems Comments:: 11/01/17 20:50 GENERAL/CONSTITUTIONAL: No fever or chills. No weakness. HEAD, EYES, EARS, NOSE AND THROAT: No change in vision. No ear pain or discharge. No sore throat. GASTROINTESTINAL: No nausea, vomiting, diarrhea or constipation. GENITOURINARY: No dysuria, frequency, or change in urination. +CARDIOVASCULAR: Chest pain. No shortness of breath. RESPIRATORY: No cough, wheezing, or hemoptysis. MUSCULOSKELETAL: No joint or muscle swelling or pain. No neck or back pain. SKIN: No rash +NEUROLOGIC: Headache. No vertigo, loss of consciousness, or change in strength/ sensation. ENDOCRINE: No increased thirst. No abnormal weight change. HEMATOLOGIC/LYMPHATIC: No anemia, easy bleeding, or history of blood clots. ALLERGIC/IMMUNOLOGIC: No hives or skin allergy. *Physical Exam - Vital Signs Last Vital Signs Temp Pulse Resp BP Pulse Ox 98.0 F 70 18 128/58 97 11/01/17 18:30 11/01/17 18:30 11/01/17 18:30 11/01/17 18:30 11/01/17 18:30 - Physical Exam Comments: 11/01/17 20:52 GENERAL: Awake, alert, and fully oriented, in no acute distress HEAD: No signs of trauma EYES: PERRLA, EOMI, sclera anicteric, conjunctiva clear ENT: Auricles normal inspection, hearing grossly normal, nares patent, oropharynx clear without exudates. Moist mucosa NECK: Normal ROM, supple, no lymphadenopathy, JVD, or masses LUNGS: Breath sounds equal, clear to auscultation bilaterally. No wheezes, and no crackles HEART: Regular rate and rhythm, normal S1 and S2, no murmurs, rubs or gallops ABDOMEN: Soft, nontender, normoactive bowel sounds. No guarding, no rebound. No masses EXTREMITIES: Normal range of motion, no edema. No clubbing or cyanosis. No cords , erythema, or tenderness BACK: No midline spinal tenderness in cervical/thoracic/lumbar region NEUROLOGICAL: Normal speech, cranial nerves intact, negative pronator drift, 5/ 5 strength in all 4 extremities, normal sensation to light touch in all 4 extremities, normal cerebellar exam, normal gait, normal reflexes and tone SKIN: Warm, Dry, normal turgor, no rashes or lesions noted. Heart Score/ECG Review - History History: Slightly suspicious - Electrocardiogram EKG: Normal - Age Age: >/= 65 - Risk Factors Based on the list above the patient has:: 1-2 risk factors - Troponin Troponin: </= normal limit - Score Heart Score - Total: 3 #1 11/01/17 20:07 Twelve-lead EKG was performed and reviewed by me. Normal sinus rhythm, rate 64. Normal axis and intervals. No ST elevations or T-wave inversions. ED Treatment Course - LABORATORY CBC & Chemistry Diagram: 11/01/17 19:40 11/01/17 19:40 - ADDITIONAL ORDERS Additional order review: 11/01/17 19:40 RBC 4.27 MCV 75.3 L MCHC 31.8 L RDW 20.0 H MPV 7.4 L Neutrophils % 63.6 D Lymphocytes % 23.3 Monocytes % 10.7 H Eosinophils % 1.9 Basophils % 0.5 Medical Decision Making - Medical Decision Making 11/01/17 20:26 72-year-old female with frequent presentations to emergency department for chest pain and headache presents emergency Department with chest pain and headache. Vitals unremarkable. Exam unremarkable. EKG is nonischemic. Given age and some risk factors, will check labs including a troponin, x-ray and reassess. 11/01/17 23:26 labs wnl cxr clear on my read pt feels better with tylenol stable for DC home I discussed the physical exam findings, ancillary test results and final diagnoses with the patient. I answered all of the patient's questions. The patient was satisfied with the care received and felt comfortable with the discharge plan and treatment plan. The patient will call their primary care physician within 24 hours to arrange follow-up and will return to the Emergency Department with any new, persistent or worsening symptoms. *DC/Admit/Observation/Transfer Diagnosis at time of Disposition: Atypical chest pain - Discharge Dispostion Disposition: HOME Condition at time of disposition: Stable Decision to Admit order: No - Referrals Referrals: Waldo Mabry MD [Primary Care Provider] - - Patient Instructions Printed Discharge Instructions: DI for Chest Pain Additional Instructions: Follow-up with your primary care doctor within 1-2 days. Return to the emergency department if you have any new, worsening or concerning symptoms. - Post Discharge Activity - Attestations Physician Attestion: 11/01/17 23:28 I, Dr. Aden Lozada MD, attest that this document has been prepared under my direction and personally reviewed by me in its entirety. I further attest, that it accurately reflects all work, treatment, procedures and medical decision -making performed by me.
[2017-11-01] MEDS ORDERED: ACETAMINOPHEN 325 MG TABLET (FP) ONE (20:10)
[2017-11-01 20:27] LABS: ALBUMIN 3.4 g/dl (3.4-5.0); ANION GAP 9 MMOL/L (8-16); BILIRUBIN,TOTAL 0.3 mg/dL (0.2-1); BLOOD UREA NITROGEN 11 mg/dL (7-18); CALCIUM 8.9 mg/dL (8.5-10.1); CHLORIDE 102 mmol/L (98-107); CO2 25 mmol/L (21-32); CREATININE 0.6 mg/dL (0.55-1.3); GLUCOSE,RANDOM 120 mg/dL (74-106); POTASSIUM 4.3 mmol/L (3.5-5.1); SGOT/AST 19 U/L (15-37); SGPT/ALT 29 U/L (13-61); SODIUM 136 mmol/L (136-145)
[2017-11-01 20:29] LABS: ALK PHOS 165 U/L (45-117)
[2017-11-01 23:35] VITALS: BP 125/76; PULSE 78; TEMP 98.6
--- NOTE | 2017-11-02 09:58 | EKG ---
Test Reason : Blood Pressure : / mmHG Vent. Rate : 064 BPM Atrial Rate : 064 BPM P-R Int : 164 ms QRS Dur : 086 ms QT Int : 430 ms P-R-T Axes : -02 011 024 degrees QTc Int : 443 ms NORMAL SINUS RHYTHM NORMAL ECG WHEN COMPARED WITH ECG OF 30-OCT-2017 06:29, NO SIGNIFICANT CHANGE WAS FOUND Confirmed by TERENCE GARCIA MD ([id number]) on 11/02/2017 9:57:53 AM Referred By: Confirmed By:TERENCE GARCIA MD
== END 2017-11-02 00:30 | disposition home or self-care (01) ==
LOC: JER 18:21
DX: R07.89 Other chest pain (principal)
CPT/HCPCS: 36415; 71046-TC-FY; 80053; 82550; 84484; 85025; 93005; 93010; 99283-25

== ENCOUNTER 2017-11-04 17:37 | Inpatient (IN) | payer OTHER ==
--- NOTE | 2017-11-04 18:11 | PDOC ---
History of Present Illness - General Chief Complaint: Cold Symptoms Stated Complaint: PAIN Time Seen by Provider: 11/04/17 18:10 - History of Present Illness Initial Comments: 11/04/17 18:26 Ms. Sumner is a 72 yo female w/ pmh of HTN, HLD, COPD, CVA, DM, GERD, seizures 2/2 craniotomy, well known to department for frequent visits for chest pain who presents for evaluation of 1 day history of left sided chest pain and headache. Patient reports both started yesterday evening and were unrelieved by tylenol which she took 1x last night. Pain continued to today and prompted her arrival. Patient localizes headache to sinus region. The patient shortness of breath and dizziness. Denies fever, chills, nausea, vomit, diarrhea and constipation. Denies dysuria, frequency, urgency and hematuria. Past History - Past Medical History Allergies/Adverse Reactions: Allergies Allergy/AdvReac Type Severity Reaction Status Date / Time aspirin Allergy Severe "NERVOUS" Verified 11/04/17 20:20 morphine Allergy Severe "ANXIETY-DE Verified 11/04/17 20:20 SPERATION" Home Medications: Ambulatory Orders Escitalopram Oxalate [Lexapro -] 10 mg PO DAILY 03/10/16 Metoprolol Succinate [Toprol XL -] 25 mg PO DAILY #30 tab.sr.24h 02/06/17 Acetaminophen [Tylenol .Regular Strength -] 325 mg PO Q6H PRN #30 tablet Anemia: Yes Asthma: No Cancer: No Cardiac Disorders: No 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, baseline confusion and dizziness) COPD: No CHF: No DVT: No Dementia: No Diabetes: Yes GI Disorders: Yes (gerd, gastric ulcer, dysphagia) Disorders: Yes (kidney stone in the past) HTN: Yes Hypercholesterolemia: Yes Liver Disease: No Psychiatric Problems: Yes (ANXIETY DEPRESSION) Seizures: Yes (S/P craniotomy for benign tumor - on Depakote for seizure prophylaxis) Thyroid Disease: No - Surgical History Abdominal Surgery: Yes Appendectomy: No Cardiac Surgery: No Cholecystectomy: Yes Lung Surgery: No Neurologic Surgery: Yes (removal left meningioma) Orthopedic Surgery: Yes (Bilateral knee replacement) - Immunization History Td Vaccination: Yes TDAP Vaccination: No Immunization Up to Date: No - Suicide/Smoking/Psychosocial Hx Smoking Status: No Smoking History: Never smoked Have you smoked in the past 12 months: No Number of Cigarettes Smoked Daily: 0 Cigars Per Day: 0 Hx Alcohol Use: No Drug/Substance Use Hx: No Substance Use Type: None Hx Substance Use Treatment: No Review of Systems - Review of Systems Comments:: 11/04/17 18:29 GENERAL/CONSTITUTIONAL: No fever or chills. No weakness. HEAD, EYES, EARS, NOSE AND THROAT: No change in vision. No ear pain or discharge. No sore throat. CARDIOVASCULAR: No chest pain or shortness of breath RESPIRATORY: No cough, wheezing, or hemoptysis. GASTROINTESTINAL: No nausea, vomiting, diarrhea or constipation. GENITOURINARY: No dysuria, frequency, or change in urination. MUSCULOSKELETAL: No joint or muscle swelling or pain. No neck or back pain. SKIN: No rash NEUROLOGIC: No headache, vertigo, loss of consciousness, or change in strength/ sensation. ENDOCRINE: No increased thirst. No abnormal weight change HEMATOLOGIC/LYMPHATIC: No anemia, easy bleeding, or history of blood clots. ALLERGIC/IMMUNOLOGIC: No hives or skin allergy. *Physical Exam - Vital Signs Last Vital Signs Temp Pulse Resp BP Pulse Ox 101 F H 92 H 20 161/85 96 11/04/17 18:05 11/04/17 18:05 11/04/17 18:05 11/04/17 18:05 11/04/17 18:05 - Physical Exam Comments: 11/04/17 18:29 GENERAL: +Patient reporting generalized TTP in all tillman (distractable). Awake , alert, and fully oriented, in no acute distress HEAD: No signs of trauma, normocephalic, atraumatic EYES: PERRLA, EOMI, sclera anicteric, conjunctiva clear ENT: Auricles normal inspection, hearing grossly normal, nares patent, oropharynx clear without exudates. Moist mucosa NECK: Normal ROM, supple, no lymphadenopathy, JVD, or masses LUNGS: No distress, speaks full sentences, clear to auscultation bilaterally HEART: Regular rate and rhythm, normal S1 and S2, no murmurs, rubs or gallops, peripheral pulses normal and equal bilaterally. ABDOMEN: Soft, nontender, normoactive bowel sounds. No guarding, no rebound. No masses EXTREMITIES: Normal inspection, Normal range of motion, no edema. No clubbing or cyanosis. NEUROLOGICAL: Cranial nerves II through XII grossly intact. Normal speech, normal gait, no focal sensorimotor deficits SKIN: Warm, Dry, normal turgor, no rashes or lesions noted. ED Treatment Course - LABORATORY CBC & Chemistry Diagram: 11/04/17 19:05 11/04/17 19:05 Medical Decision Making - Medical Decision Making 11/04/17 21:46 Ms. Sumner is a 72 yo female w/ pmh as described who presents for evaluation of headache and usual chest pain. Workup started with labs as below and EKG; CXR , and UA. EKG unchanged from previous. Patient noted to have a UTI as below w/ fever. Rocephin started for antibiosis. Inpatient team paged for admission as patient unreliable and concern present she will have difficulty taking medications as proscribed. Laboratory Results - last 24 hr 11/04/17 11/04/17 11/04/17 19:05 19:05 19:22 WBC 3.9 L RBC 4.31 Hgb 10.3 L Hct 32.5 MCV 75.5 L MCH 23.9 L MCHC 31.7 L RDW 20.1 H Plt Count 313 MPV 7.3 L Absolute Neuts (auto) 2.1 Neutrophils % 54.4 Lymphocytes % 28.0 D Monocytes % 15.1 H Eosinophils % 1.7 Basophils % 0.8 Nucleated RBC % 0 Sodium 136 Potassium 5.0 Chloride 101 Carbon Dioxide 27 Anion Gap 8 BUN 15 Creatinine 0.6 Creat Clearance w eGFR > 60 Random Glucose 95 Lactic Acid 1.4 Calcium 8.8 Total Bilirubin 0.3 AST 39 H ALT 32 Alkaline Phosphatase 176 H Total Protein 6.9 Albumin 3.3 L Urine Color Urine Appearance Urine pH Ur Specific [place] Urine Protein Urine Glucose (UA) Urine Ketones Urine Blood Urine Nitrite Urine Bilirubin Urine Urobilinogen Ur Leukocyte Esterase Urine WBC (Auto) Urine RBC (Auto) Ur Epithelial Cells Urine Bacteria Urine Mucus 11/04/17 20:40 WBC RBC Hgb Hct MCV MCH MCHC RDW Plt Count MPV Absolute Neuts (auto) Neutrophils % Lymphocytes % Monocytes % Eosinophils % Basophils % Nucleated RBC % Sodium Potassium Chloride Carbon Dioxide Anion Gap BUN Creatinine Creat Clearance w eGFR Random Glucose Lactic Acid Calcium Total Bilirubin AST ALT Alkaline Phosphatase Total Protein Albumin Urine Color Yellow Urine Appearance Clear Urine pH 5.0 Ur Specific [place] 1.040 H Urine Protein Negative Urine Glucose (UA) Negative Urine Ketones Negative Urine Blood 1+ H Urine Nitrite Negative Urine Bilirubin Negative Urine Urobilinogen Negative Ur Leukocyte Esterase 1+ H Urine WBC (Auto) 17 Urine RBC (Auto) 5 Ur Epithelial Cells Rare Urine Bacteria Rare Urine Mucus Many *DC/Admit/Observation/Transfer Diagnosis at time of Disposition: Urinary tract infection Qualifiers: Urinary tract infection type: site unspecified Hematuria presence: with hematuria Qualified Code(s): N39.0 - Urinary tract infection, site not specified ; R31.9 - Hematuria, unspecified Fever Qualifiers: Fever type: unspecified Qualified Code(s): R50.9 - Fever, unspecified - Discharge Dispostion Decision to Admit order: Yes - Referrals - Patient Instructions - Post Discharge Activity
--- NOTE | 2017-11-04 18:12 | PDOC ---
Attending Attestation - HPI HPI: 11/04/17 19:53 The patient is a 72-year-old female with past medical history significant for HLD, HTN, COPD, CVA (altered residual balance), DM, GERD, seizures s/p craniotomy for benign tumor and anxiety presents to the emergency department with chest pain. The patient presents with L. sided chest pain for the past 1 day, accompanied with a headache. The patient reports taking Tylenol for the pain, without relief. Allergies: aspirin and morphine Social history: None reported Surgical history: removal left meningioma, Bilateral knee replacement, craniotomy and Cholecystectomy PCP: Waldo Araujo MD GI: Dr. Ziggy Grubbs Adhesive Sprayer: Dr. Vargas. - Physicial Exam PE: 11/04/17 19:53 GENERAL: The patient is in no acute distress. LUNGS: Breath sounds equal, clear to auscultation bilaterally. No wheezes, and no crackles. HEART:(+) pain with palpation of the chest wall. Regular rate and rhythm, normal S1 and S2 without murmur, rub or gallop. ABDOMEN: Soft, nontender, normoactive bowel sounds. No guarding, no rebound. No masses palpable. EXTREMITIES: Normal range of motion, no edema. No clubbing or cyanosis. No erythema, or tenderness. - Medical Decision Making 11/04/17 19:53 Documentation prepared by Alexandra Mendoza, acting as medical front desk specialist for Julieth Stone MD. <Alexandra Mendoza - Last Filed: 11/04/17 19:53> - Resident Resident Name: Abdoul Burgos - ED Attending Attestation I have performed the following: I have examined & evaluated the patient, The case was reviewed & discussed with the resident, I agree w/resident's findings & plan, Exceptions are as noted - Medical Decision Making 11/04/17 19:50 Ms Sumner is well known to the ER She presents to the ER every day for chest pain today, she presents with a complaint of chest pain as well as total body pain AND she is noted to have a fever She denies cough, nausea, vomiting, diarrhea EKG: Twelve-lead EKG was performed and reviewed by me. There is normal sinus rhythm with a normal rate. The axis is normal. The intervals are normal. There are no ST or T wave abnormalities. Impression: Normal twelve-lead EKG 11/04/17 21:41 Laboratory Tests 11/04/17 11/04/17 11/04/17 19:05 19:05 20:40 WBC 3.9 L Hgb 10.3 L Hct 32.5 Plt Count 313 BUN 15 Creatinine 0.6 Urine Blood 1+ H Urine Nitrite Negative Ur Leukocyte Esterase 1+ H Urine WBC (Auto) 17 Urine RBC (Auto) 5 Ur Epithelial Cells Rare Urine Bacteria Rare Urine Mucus Many Will place on observation Clinical Impression: ?? UTI, initial presentation Fever, initial presentation <Julieth Stone - Last Filed: 11/06/17 07:28>
[2017-11-04] MEDS ORDERED: ACETAMINOPHEN 325 MG TABLET (FP) PO ONE (18:56)
[2017-11-04] MEDS ORDERED: ACETAMINOPHEN 325 MG TABLET (FP) ONE (19:00)
[2017-11-04 19:19] LABS: BASO % 0.8 % (0-2.0); EOS % 1.7 % (0-4.5); HEMATOCRIT 32.5 % (32.4-45.2); HEMOGLOBIN 10.3 GM/dL (10.7-15.3); MCH 23.9 pg (25.7-33.7); MCHC 31.7 g/dl (32.0-36.0); MEAN CELL VOLUME 75.5 fl (80-96); MEAN PLT VOLUME 7.3 fl (7.5-11.1); MONO % 15.1 % (3.8-10.2); NEUT % 54.4 % (42.8-82.8); PLATELET COUNT 313 K/MM3 (134-434); RBC 4.31 M/mm3 (3.60-5.2); RDW 20.1 % (11.6-15.6); WHITE BLOOD COUNT 3.9 K/mm3 (4.0-10.0)
[2017-11-04 19:54] LABS: ALBUMIN 3.3 g/dl (3.4-5.0); ALK PHOS 176 U/L (45-117); ANION GAP 8 MMOL/L (8-16); BILIRUBIN,TOTAL 0.3 mg/dL (0.2-1); BLOOD UREA NITROGEN 15 mg/dL (7-18); CALCIUM 8.8 mg/dL (8.5-10.1); CHLORIDE 101 mmol/L (98-107); CO2 27 mmol/L (21-32); CREATININE 0.6 mg/dL (0.55-1.3); GLUCOSE,RANDOM 95 mg/dL (74-106); SGOT/AST 39 U/L (15-37); SGPT/ALT 32 U/L (13-61); SODIUM 136 mmol/L (136-145); TOT PROT 6.9 g/dl (6.4-8.2)
[2017-11-04 21:12] LABS: URINE APPEARANCE CLEAR; URINE BILIRUBIN NEGATIVE (<2.0 mg/dL); URINE COLOR YELLOW; URINE GLUCOSE (UA) NEGATIVE (NEGATIVE); URINE KETONE NEGATIVE (NEGATIVE); URINE NITRITE NEGATIVE (NEGATIVE); URINE PROTEIN NEGATIVE (NEGATIVE); URINE UROBILINOGEN NEGATIVE mg/dL (0.2-1.0)
[2017-11-04 21:29] LABS: URINE LEUK ESTERASE 1+ (NEGATIVE)
[2017-11-04 21:30] LABS: EPI CELLS RARE /HPF (FEW); URINE BACTERIA RARE /hpf (NONE SEEN); URINE MUCUS MANY
[2017-11-04] MEDS ORDERED: CEFTRIAXONE 1,000 MG in DEXTROSE 5%-WATER - 50 ML IVPB ONE (21:44)
[2017-11-04] MEDS ORDERED: METOCLOPRAMIDE HCL INJECTION 10 MG/2 ML VIAL IVPUSH ONE (21:45)
[2017-11-04] MEDS ORDERED: SODIUM CHLORIDE 1,000 ML IV STA (21:45)
[2017-11-04] MEDS ORDERED: METOCLOPRAMIDE HCL INJECTION 10 MG/2 ML VIAL ONE (21:55)
[2017-11-04] MEDS ORDERED: CEFTRIAXONE 1 GM/50 ML BAG ONE (21:55)
--- NOTE | 2017-11-04 22:59 | PN ---
Teaching Attending Note Name of Resident: Shweta Lord ATTENDING PHYSICIAN STATEMENT I saw and evaluated the patient. I reviewed the resident's note and discussed the case with the resident. I agree with the resident's findings and plan as documented. 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 Patient reports both started yesterday evening and were unrelieved by tylenol which she took 1x last night. Pain continued to today and prompted her arrival. Patient localizes headache to sinus region. OBJECTIVE: Alert Vital Signs Period Temp Pulse Resp BP Sys/Christensen Pulse Ox Last 24 Hr 101 F 92 20 161/85 96 HEENT: No Jaundice, eye redness or discharge, PERRLA, EOMI. Normocephalic, atraumatic. External ears are normal and hearing is grossly intact. No nasal discharge. Neck: Supple, nontender. No palpable adenopathy or thyromegaly. No JVD Chest: Good effort. Clear to auscultation. Says she is tender all over her chest. Heart: Regular. No S3, rub or murmur Abdomen: Not distended, soft, nontender and no HSM. No rebound or guarding. Normoactive bowel sounds. Ext: Peripheral pulses intact. No leg edema. Skin: Warm and dry. No petechiae, rash or ecchymosis. Neuro: Alert. Oriented x3. CN 2-12 grossly intact. Sensation grossly intact in all four extremities; Uses wheeled walker. Home Medications Medication Instructions Recorded Escitalopram Oxalate [Lexapro -] 10 mg PO DAILY 03/10/16 Metoprolol Succinate [Toprol XL -] 25 mg PO DAILY #30 tab.sr.24h 02/06/17 Acetaminophen [Tylenol .Regular 325 mg PO Q6H PRN #30 tablet 08/16/17 Strength -] Abnormal Lab Results 11/04/17 11/04/17 11/04/17 19:05 19:05 20:40 WBC 3.9 L Hgb 10.3 L MCV 75.5 L MCH 23.9 L MCHC 31.7 L RDW 20.1 H MPV 7.3 L Monocytes % 15.1 H AST 39 H Alkaline Phosphatase 176 H Albumin 3.3 L Ur Specific [place] 1.040 H Urine Blood 1+ H Ur Leukocyte Esterase 1+ H ASSESSMENT AND PLAN: 1. Chest pain - Pain is atypical. No new EKG changes and troponin is negative. Admit to telemetry to rule out ACS. Treat UTI with Rocephin. Confirm her medication list and add Lisinopril 10 mg po bid for better BP control. Confirm with PCP why she is not on aspirin and on an anti-seizure medication. 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 2. Low MCV Anemia - Cause unclear. Will get serial stool guaiacs, reticulocyte count and iron studies. Would refer for outpatient colonoscopy. 3. Obesity - Will provide patient all the necessary assistance, counseling and positive reinforcement to facilitate weight loss. Consult beam dyer. 4. DVT prophylaxis - Lovenox 40 mg SQ q 24 hours. 5. Advance directives - Full code
--- NOTE | 2017-11-05 00:25 | HP ---
CHIEF COMPLAINT: chest pain, headache and chills x 1 day. PCP: Dr Morgan HISTORY OF PRESENT ILLNESS: Pt is a poor historian. She was sleeping off during the interview and it was difficult to confirm her story. 71 yo F with a signif PMHx of DM, CAD, HTN, and HLD, COPD, GERD, seizures s/p benign brain tumor, anxiety, with prior ER visits for atypical chest pain ( negative nuclear stress test performed May 2017), who presents to the ER complaining of chest pain, headache and chills x 1 day. Pt reports L sided 4/10 reproducible constant "pressure like" chest pain radiating to her back today, with associated headache not relieved with tylenol. No SOB, no syncope, or cough. No hx of sick contacts, no nasal congestion. No hx of trauma or falls. Pt has been investigated repeated for similar symptoms. While being worked up today she was noted to have a positive UA and meet SIRS criteria. She then acknowledged burning on micturition, but denies abdominal pain. Echo 10/12/17 showed nl LV size, thickness and function. RV nl in size and function. EF 55-60%, trace MR. Previous urine cxs (09/23/17- grew Klebsiella, resistant to ampicillin and nitrofurantoin), (05/17/17-grew E fecalis/viridans R to levoflox/TCN), (12/31/16- esbl) ER course was notable for: (1) WBC-3.9, tachy 92, Tmax-101, (2) EKG- nsr, nste/nstd, nl axis, QTC-434 (3) ceftriaxone 1g, benadryl, reglan, NS- 1L, tylenol Po 975 Recent Travel: PAST MEDICAL HISTORY: DM, CAD, HTN, and HLD, COPD,GERD, seizures s/p benign brain tumor, anxiety, PAST SURGICAL HISTORY: L hemangioma excision Social History: Smoking: Alcohol: Drugs: Family History: Allergies aspirin Allergy (Severe, Verified 11/04/17 20:20) "NERVOUS" morphine Allergy (Severe, Verified 11/04/17 20:20) "ANXIETY-DESPERATION" Home medications Escitalopram Oxalate [Lexapro -] 10 mg PO DAILY 03/10/16 Divalproex [Depakote -] 500 mg PO BID 12/15/16 Metoprolol Succinate [Toprol XL -] 25 mg PO DAILY #30 tab.sr.24h 02/06/17 Amlodipine Besylate [Norvasc -] 10 mg PO DAILY 06/27/17 Acetaminophen [Tylenol .Regular Strength -] 325 mg PO Q6H PRN #30 tablet Cefuroxime Axetil [Cefuroxime] 500 mg PO BID #14 tablet 10/12/17 REVIEW OF SYSTEMS CONSTITUTIONAL: Absent: fever, chills, diaphoresis, generalized weakness, malaise, loss of appetite, weight change HEENT: Absent: rhinorrhea, nasal congestion, throat pain, throat swelling, difficulty swallowing, mouth swelling, ear pain, eye pain, visual changes CARDIOVASCULAR: Absent: chest pain, syncope, palpitations, irregular heart rate, lightheadedness , peripheral edema RESPIRATORY: Absent: cough, shortness of breath, dyspnea with exertion, orthopnea, wheezing, stridor, hemoptysis GASTROINTESTINAL: Absent: abdominal pain, abdominal distension, nausea, vomiting, diarrhea, constipation, melena, hematochezia GENITOURINARY: Absent: dysuria, frequency, urgency, hesitancy, hematuria, flank pain, genital pain MUSCULOSKELETAL: Absent: myalgia, arthralgia, joint swelling, back pain, neck pain SKIN: Absent: rash, itching, pallor HEMATOLOGIC/IMMUNOLOGIC: Absent: easy bleeding, easy bruising, lymphadenopathy, frequent infections ENDOCRINE: Absent: unexplained weight gain, unexplained weight loss, heat intolerance, cold intolerance NEUROLOGIC: Absent: headache, focal weakness or paresthesias, dizziness, unsteady gait, seizure, mental status changes, bladder or bowel incontinence PSYCHIATRIC: Absent: anxiety, depression, suicidal or homicidal ideation, hallucinations. PHYSICAL EXAMINATION Vital Signs - 24 hr 11/04/17 18:05 Temperature 101 F H Pulse Rate 92 H Respiratory 20 Rate Blood Pressure 161/85 O2 Sat by Pulse 96 Oximetry (%) GENERAL: Pt sitting in a wheelchair, somnolent but arousable. In no acute respiratory distress. Generalized tenderness noted on palpation HEAD: Normal with no signs of trauma. Edentulous EYES: Pupils equal, round and reactive to light, extraocular movements intact EARS, NOSE, THROAT: oropharynx clear without exudates. NECK: no obvious masses. LUNGS: Breath sounds equal, clear to auscultation bilaterally. No wheezes, and no crackles. HEART: Generalized chest wall enderness L>>R, Regular rate and rhythm, normal S1 and S2 without murmur ABDOMEN: Obese,firm, unclear if tender, normoactive bowel sounds, some guarding , no rebound, no masses. MUSCULOSKELETAL: Normal range of motion at all joints. No bony deformities generalized tenderness. questionable bilateral CVA tenderness L>>R. Pt appears hyperesthetic LOWER EXTREMITIES: 2+ pulses, warm, No calf tenderness. NEUROLOGICAL: Cranial nerves II-XII intact. No facial droop, extension, flexion , abduction and adduction 5/5 b/l UE and LE. Generalized tenderness. Gait not observed (wheel chair bound) Laboratory Results - last 24 hr 11/04/17 11/04/17 11/04/17 19:05 19:05 19:22 WBC 3.9 L RBC 4.31 Hgb 10.3 L Hct 32.5 MCV 75.5 L MCH 23.9 L MCHC 31.7 L RDW 20.1 H Plt Count 313 MPV 7.3 L Absolute Neuts (auto) 2.1 Neutrophils % 54.4 Lymphocytes % 28.0 D Monocytes % 15.1 H Eosinophils % 1.7 Basophils % 0.8 Nucleated RBC % 0 Sodium 136 Potassium 5.0 Chloride 101 Carbon Dioxide 27 Anion Gap 8 BUN 15 Creatinine 0.6 Creat Clearance w eGFR > 60 Random Glucose 95 Lactic Acid 1.4 Calcium 8.8 Total Bilirubin 0.3 AST 39 H ALT 32 Alkaline Phosphatase 176 H Total Protein 6.9 Albumin 3.3 L Urine Color Urine Appearance Urine pH Ur Specific [place] Urine Protein Urine Glucose (UA) Urine Ketones Urine Blood Urine Nitrite Urine Bilirubin Urine Urobilinogen Ur Leukocyte Esterase Urine WBC (Auto) Urine RBC (Auto) Ur Epithelial Cells Urine Bacteria Urine Mucus 11/04/17 20:40 WBC RBC Hgb Hct MCV MCH MCHC RDW Plt Count MPV Absolute Neuts (auto) Neutrophils % Lymphocytes % Monocytes % Eosinophils % Basophils % Nucleated RBC % Sodium Potassium Chloride Carbon Dioxide Anion Gap BUN Creatinine Creat Clearance w eGFR Random Glucose Lactic Acid Calcium Total Bilirubin AST ALT Alkaline Phosphatase Total Protein Albumin Urine Color Yellow Urine Appearance Clear Urine pH 5.0 Ur Specific [place] 1.040 H Urine Protein Negative Urine Glucose (UA) Negative Urine Ketones Negative Urine Blood 1+ H Urine Nitrite Negative Urine Bilirubin Negative Urine Urobilinogen Negative Ur Leukocyte Esterase 1+ H Urine WBC (Auto) 17 Urine RBC (Auto) 5 Ur Epithelial Cells Rare Urine Bacteria Rare Urine Mucus Many ASSESSMENT/PLAN: 71 yo F with a signif PMHx of DM, CAD, HTN, and HLD, GERD, seizures s/p benign brain tumor, anxiety, with prior ER visits for atypical chest pain (negative nuclear stress test performed May 2017), who presents to the ER complaining of chest pain, headache and chills x 1 day found to have a positive UA Atypical chest pain R/o ACS Pain is reproducible, with hyperesthesia noted generally trops -ve x1 trend trops EKG- NSR 66bpm, NSTE/NSTD, Normal axis, QTc-434, tele Lastest ECHO- 10/12/17 , may differ repeat ECHO Sepsis secondary to UTI Leucopenia, tachycardia, tmax 101 burning on urination, bilateral cva tenderness Ceftriaxone 1g daily cont UA- LE1+, many mucus, WBC-17, rare epith Ucx pending Bcx Microcytic anemia MCV-75.5 Fecal occult blood Iron studies Out pt follow up for colonoscopy DM, ISS ACHS HgA1c BGM ACHS CAD, Per medication list, Pt not taking ASA at home, no positive trops noted in past, previous stress test negative Heart score 4- 12-16.17% risk of adverse cardiovascular event HTN, Elevated Appears to have used amlodipine in addition to metoprolol in past Will resume amlodipine if BP remains high HLD No home statins noted Crestor COPD Not in exacerbation GERD, Will monitor and provide H2 millie/ PPI as needed, no home med noted elevated alk phosphatase Mildly elevated AST, with hx of tylenol use (not quantified) Will trend Monitor May need to be switched off tylenol if trending up seizures s/p benign brain tumor Resume home keppra anxiety Resume home escitalopram FEN NS @75 monitor lytes, replete as needed Diabetic diet PPx Heparin sq Dispo In px tele to R/o ACS If ACS r/o pt maybe transferred to [facility] for UTI mx Visit type - Emergency Visit Emergency Visit: Yes ED Registration Date: 11/05/17 Care time: The patient presented to the Emergency Department on the above date and was hospitalized for further evaluation of their emergent condition. - New Patient This patient is new to me today: Yes Date on this admission: 11/05/17 - Critical Care Critical Care patient: No Hospitalist Screening - Colonoscopy Questionnaire Colonoscopy Questionnaire: Colonoscopy Questionnaire - Patient: 50 - 75 years old and never had a screening colonoscopy: Yes History of colon or rectal polyps, or CA: Unknown History of IBD, Crohn's disease or UC: Unknown History of abdominal radiation therapy as a child: Unknown - Relative: 1 with colon or rectal CA, or polyps at age 60 or younger: Unknown Colon or rectal CA diagnosed at age 45 or younger: Unknown Multiple relatives with colon or rectal CA: Unknown - Outcome: Screening Result: Positive Screen
[2017-11-05 01:31] VITALS: BMI 39.9
[2017-11-05] MEDS: SODIUM CHLORIDE 1,000 ML IV SCH ×2 (02:09→20:22)
[2017-11-05] MEDS: ACETAMINOPHEN 325 MG TABLET (FP) PO PRN ×3 (02:53→20:07)
[2017-11-05] MEDS ORDERED: ACETAMINOPHEN 325 MG TABLET (FP) PO ONE (04:30)
[2017-11-05] MEDS: HEPARIN NA (PORCINE) 5,000 UNITS/ML 1ML VIAL SQ SCH ×3 (05:52→22:01)
[2017-11-05] MEDS ORDERED: INSULIN SLIDING SCALE (NOVOLOG) 1 VIAL SQ SCH ×3 (07:00)
[2017-11-05] MEDS ORDERED: FLU VACCINE QUAD 60 MCG/0.5 ML (MDV 18-19) IM ONE (09:00)
[2017-11-05 09:09] LABS: BASO % 0.6 % (0-2.0); EOS % 2.2 % (0-4.5); HEMATOCRIT 35.4 % (32.4-45.2); LYMPH % 21.9 % (8-40); MCH 23.5 pg (25.7-33.7); MCHC 31.1 g/dl (32.0-36.0); MEAN CELL VOLUME 75.4 fl (80-96); MEAN PLT VOLUME 7.1 fl (7.5-11.1); NEUT % 63.3 % (42.8-82.8); PLATELET COUNT 315 K/MM3 (134-434); RDW 20.2 % (11.6-15.6); WHITE BLOOD COUNT 4.6 K/mm3 (4.0-10.0)
[2017-11-05 10:05] LABS: ALBUMIN 3.5 g/dl (3.4-5.0); ALK PHOS 174 U/L (45-117); ANION GAP 11 MMOL/L (8-16); BILIRUBIN,TOTAL 0.4 mg/dL (0.2-1); BLOOD UREA NITROGEN 15 mg/dL (7-18); CALCIUM 9.3 mg/dL (8.5-10.1); CHLORIDE 104 mmol/L (98-107); CO2 23 mmol/L (21-32); CREATININE 0.6 mg/dL (0.55-1.3); GLUCOSE,RANDOM 103 mg/dL (74-106); POTASSIUM 4.5 mmol/L (3.5-5.1); SGOT/AST 34 U/L (15-37); SGPT/ALT 37 U/L (13-61); SODIUM 138 mmol/L (136-145); TOT PROT 7.5 g/dl (6.4-8.2)
--- NOTE | 2017-11-05 10:24 | PN ---
Progress Note (short form) - Note Progress Note: Subjective: The patient was seen and examined at the bedside, she first states she has a little chest pain, then she reported no chest pain, and then she reported a lot of chest pain. Difficult to assess the degree of chest pain as the patient provides many different assessments. Current Medications Generic Name Dose Route Start Last Admin Trade Name Freq PRN Reason Stop Dose Admin Acetaminophen 650 mg 11/05/17 01:15 11/05/17 02:53 Tylenol - PO 650 mg Q4H PRN Administration PAIN LEVEL 1-5 Heparin Sodium (Porcine) 5,000 unit 11/05/17 06:00 11/05/17 05:52 Heparin - SQ 5,000 unit TID KATHERINE Administration Ceftriaxone Sodium 1 gm/ 50 mls @ 100 mls/hr 11/05/17 10:00 Dextrose IVPB DAILY KATHERINE Protocol Sodium Chloride 1,000 mls @ 75 mls/hr 11/05/17 02:00 11/05/17 02:09 Normal Saline - IV 11/06/17 01:59 75 mls/hr ASDIR KATHERINE Administration Insulin Aspart 1 vial 11/05/17 07:00 11/05/17 06:08 Novolog Vial Sliding Scale - SQ Not Given ACHS KATHERINE Protocol Objective: Vital Signs Period Temp Pulse Resp BP Sys/Christensen Pulse Ox Last 24 Hr 99.0 F-101 F 72-92 20-20 133-161/70-85 96 Physical Exam: General: NAD, A&Ox3 Lungs: CTA bilaterally Heart: RRR, S1S2 Abd: Soft, non-tender, non-distended Ext: Warm, well-perfused CBCD WBC 4.6 K/mm3 (4.0-10.0) 11/05/17 09:00 RBC 4.70 M/mm3 (3.60-5.2) 11/05/17 09:00 Hgb 11.0 GM/dL (10.7-15.3) 11/05/17 09:00 Hct 35.4 % (32.4-45.2) 11/05/17 09:00 MCV 75.4 fl (80-96) L 11/05/17 09:00 MCHC 31.1 g/dl (32.0-36.0) L 11/05/17 09:00 RDW 20.2 % (11.6-15.6) H 11/05/17 09:00 Plt Count 315 K/MM3 (134-434) 11/05/17 09:00 MPV 7.1 fl (7.5-11.1) L 11/05/17 09:00 CMP Sodium 138 mmol/L (136-145) 11/05/17 09:00 Potassium 4.5 mmol/L (3.5-5.1) 11/05/17 09:00 Chloride 104 mmol/L (98-107) 11/05/17 09:00 Carbon Dioxide 23 mmol/L (21-32) 11/05/17 09:00 Anion Gap 11 MMOL/L (8-16) 11/05/17 09:00 BUN 15 mg/dL (7-18) 11/05/17 09:00 Creatinine 0.6 mg/dL (0.55-1.3) 11/05/17 09:00 Creat Clearance w eGFR > 60 (>60) 11/05/17 09:00 Random Glucose 103 mg/dL (74-106) 11/05/17 09:00 Calcium 9.3 mg/dL (8.5-10.1) 11/05/17 09:00 Total Bilirubin 0.4 mg/dL (0.2-1) 11/05/17 09:00 AST 34 U/L (15-37) 11/05/17 09:00 ALT 37 U/L (13-61) 11/05/17 09:00 Alkaline Phosphatase 174 U/L (45-117) H 11/05/17 09:00 Total Protein 7.5 g/dl (6.4-8.2) 11/05/17 09:00 Albumin 3.5 g/dl (3.4-5.0) 11/05/17 09:00 CARDIAC ENZYMES Creatine Kinase 97 IU/L (26-192) 11/05/17 09:00 Troponin I < 0.02 ng/ml (0.00-0.05) 11/05/17 09:00 Assessment: This is a 72 year old female with PMHx of HTN, hyperlipidemia, COPD , CVA, GERD, 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 Plan: 1) Chest pain- atypical - The patient presented frequently with the same chest pain - She is a poor historian - Cardiac monitoring: needs to be transferred to telemetry - F/u troponins: first one is negative - ECHO 09/2017: Normal LV and RV size and function. Trace TR 2) UTI - Continue Ceftriaxone - Awaiting urine culture 3) HTN - Continue Toprol XL - Continue to monitor BP 4) COPD - No evidence of acute exacerbation at this time - Not on home medications 5) F/E/N: - Monitor electrolytes - Patient does not have DM: patients last HgbA1c 5.8 on 10/12/17. Will discontinue sliding scale, BGM - Changed diet to sodium controlled 6) Prophylaxis: - OOB ambulating - Heparin 5,000u sq tid 7) Dispo: - Once condition improves CODE STATUS: FULL CODE Visit type - Emergency Visit Emergency Visit: Yes ED Registration Date: 11/05/17 Care time: The patient presented to the Emergency Department on the above date and was hospitalized for further evaluation of their emergent condition. - New Patient This patient is new to me today: Yes Date on this admission: 11/05/17 - Critical Care Critical Care patient: No
[2017-11-05] MEDS ORDERED: cefTRIAXone SODIUM 1 GM VIAL ONE (10:43)
[2017-11-05] MEDS ORDERED: DEXTROSE 5%-WATER - 50 ML IVPB ONE (10:43)
[2017-11-05] MEDS: CEFTRIAXONE 1 GM in DEXTROSE 5%-WATER - 50 ML IVPB SCH (10:46)
[2017-11-05 12:13] LABS: RETICULOCYTES 1.15 % (0.5-1.5)
[2017-11-05] MEDS: metoPROLOL SUCCINATE 25 MG TAB.SR.24H (FP) PO SCH (12:47)
[2017-11-05] MEDS: ESCITALOPRAM OXALATE 10 MG TABLET (FP) PO SCH (12:47)
[2017-11-05] MEDS ORDERED: traMADol HCL 50 MG TABLET PO ONE (16:43)
--- NOTE | 2017-11-05 17:06 | EKG ---
Test Reason : Blood Pressure : / mmHG Vent. Rate : 066 BPM Atrial Rate : 066 BPM P-R Int : 162 ms QRS Dur : 076 ms QT Int : 414 ms P-R-T Axes : 037 000 020 degrees QTc Int : 434 ms NORMAL SINUS RHYTHM NORMAL ECG WHEN COMPARED WITH ECG OF 01-NOV-2017 18:58, NO SIGNIFICANT CHANGE WAS FOUND Confirmed by MD Dominguez Daniel ([id number]) on 11/05/2017 5:06:35 PM Referred By: Confirmed By:Kirit Dominguez MD
[2017-11-05] MEDS ORDERED: KETOROLAC TROMETHAMINE 15 MG/ML VIAL IVPUSH ONE (23:20)
[2017-11-05] MEDS ORDERED: ALPRAZolam 0.25 MG TABLET PO ONE (23:21)
[2017-11-06] MEDS: ACETAMINOPHEN 325 MG TABLET (FP) PO PRN ×4 (03:28→18:50)
[2017-11-06] MEDS: HEPARIN NA (PORCINE) 5,000 UNITS/ML 1ML VIAL SQ SCH ×3 (06:10→22:52)
[2017-11-06 07:52] LABS: BASO % 0.6 % (0-2.0); EOS % 3.9 % (0-4.5); HEMATOCRIT 31.8 % (32.4-45.2); HEMOGLOBIN 9.9 GM/dL (10.7-15.3); LYMPH % 24.5 % (8-40); MCH 23.4 pg (25.7-33.7); MCHC 31.1 g/dl (32.0-36.0); MEAN CELL VOLUME 75.4 fl (80-96); MEAN PLT VOLUME 7.8 fl (7.5-11.1); MONO % 14.3 % (3.8-10.2); NEUT % 56.7 % (42.8-82.8); PLATELET COUNT 276 K/MM3 (134-434); RBC 4.21 M/mm3 (3.60-5.2); RDW 20.2 % (11.6-15.6); WHITE BLOOD COUNT 4.1 K/mm3 (4.0-10.0)
[2017-11-06 08:06] LABS: SERUM IRON SATURATION 5 % (15-55); TOTAL IRON BINDING CAPACITY 474 ug/dL (250-450); UIBC 451 ug/dL (118-369)
[2017-11-06 08:38] LABS: ALBUMIN 3.2 g/dl (3.4-5.0); ALK PHOS 147 U/L (45-117); ANION GAP 7 MMOL/L (8-16); BILIRUBIN,TOTAL 0.4 mg/dL (0.2-1); BLOOD UREA NITROGEN 11 mg/dL (7-18); CALCIUM 8.6 mg/dL (8.5-10.1); CHLORIDE 102 mmol/L (98-107); CO2 27 mmol/L (21-32); CREATININE 0.6 mg/dL (0.55-1.3); GLUCOSE,RANDOM 93 mg/dL (74-106); PHOSPHOROUS 4.5 mg/dL (2.5-4.9); POTASSIUM 4.3 mmol/L (3.5-5.1); SGOT/AST 36 U/L (15-37); SGPT/ALT 34 U/L (13-61); SODIUM 136 mmol/L (136-145); TOT PROT 6.6 g/dl (6.4-8.2)
[2017-11-06] MEDS ORDERED: cefTRIAXone SODIUM 1 GM VIAL ONE (09:06)
[2017-11-06] MEDS ORDERED: DEXTROSE 5%-WATER - 50 ML IVPB ONE (09:06)
[2017-11-06] MEDS ORDERED: PT OWN MED DRAWER 7, Y5N ONE (09:06)
[2017-11-06] MEDS: amLODIPine BESYLATE 5 MG TABLET (FP) PO SCH (09:21)
[2017-11-06] MEDS: metoPROLOL SUCCINATE 25 MG TAB.SR.24H (FP) PO SCH (09:21)
[2017-11-06] MEDS: CEFTRIAXONE 1 GM in DEXTROSE 5%-WATER - 50 ML IVPB SCH (09:21)
[2017-11-06] MEDS: ESCITALOPRAM OXALATE 10 MG TABLET (FP) PO SCH (09:21)
[2017-11-06] MEDS ORDERED: FERROUS SO4 300 MG/5 ML ORAL SOLN UNIT DOSE CUPS PO SCH (10:00)
--- NOTE | 2017-11-06 14:12 | PN ---
Teaching Attending Note Name of Resident: Shweta Lord ATTENDING PHYSICIAN STATEMENT I saw and evaluated the patient. I reviewed the resident's note and discussed the case with the resident. I agree with the resident's findings and plan as documented. SUBJECTIVE: No fever or chills last night. cont to have pain in chest . urinary urgency, frequency and dysuria. OBJECTIVE: NAD CV: RRR, no MRG Lungs: CTAB . ABd: soft, TTP in all quadrants especially suprapubic area. Ext : no edema or erythema, TTP on whole LE MS: whole body tenderness on chest wall , back, abd , extremities. ASSESSMENT AND PLAN: 72 y/o lady with h/o HTN, HLP, CAD, COPD, CVA, GERD/PUD, Seizure, benign brain tumor s/o craniotomy, and recurrent admissions for who presented with CP . she was found to have A UTI 1- atypical CP . reproducible , generalized body tenderness. EKG with no ischemic changes and trop NL. No further cardiac w/u 2- Complicated UTI/ possible pyelonephritis. - no more fever . urine cx with lactose fermenting bacilli and strep viridance. - cont ceftriaxone pending sensitivity 3- HTN urgency: will confirm her meds but in mean time add Norvasc to metoprolol 4- Microcytic anemia: iron studies indicate iron def anemia. has h/o PUD/GERD. could have chronic slow GI bleed vs nutritional def. had colo in our system in 2014 with a polyp removed. - will check rectal exam and OB - HB stable. no signs of active bleed. - f/u as out pt - start iron supplements at dc 5- h/o CVA : not sure why not on ASA . will confirm with PCP Dispo : HLOC pending Urine cx results
[2017-11-06] MEDS: traMADol HCL 50 MG TABLET PO PRN ×2 (16:03→22:50)
--- NOTE | 2017-11-06 18:44 | PN ---
Physical Exam: SUBJECTIVE: Patient seen and examined. Pt still c/o of reproducible chest pain, and headache. Also has increased frequency of urine (on iVfs)No SOB, no syncope. OBJECTIVE: Vital Signs Period Temp Pulse Resp BP Sys/Christensen Pulse Ox Last 24 Hr 98.2 F-98.7 F 69-74 18-20 144-184/83-92 95-97 GENERAL: The patient is awake, alert, anxious, and restless. HEAD: Normal with no signs of trauma. EYES: sclera anicteric, conjunctiva clear. ENT: Ears normal, nares patent, oropharynx clear without exudates, moist mucous membranes. NECK: full range of motion, supple. LUNGS: no masses, Breath sounds equal, clear to auscultation bilaterally, no wheezes HEART: Regular rate and rhythm, S1, S2 ABDOMEN: obese, RUQ scar, Soft, generalized tenderness, normoactive bowel sounds , guarding+, EXTREMITIES: 2+ pulses, warm, well-perfused, no edema. NEUROLOGICAL: AAOx 3. 5/5 strength b/l UES, and 4/5 b/l LEs. Normal speech, ambulation with rollade walker PSYCH: Anxious SKIN: Hyperesthesia with tenderness on light touch of chest, shoulders, parasternal area, b/l costovertebral angles, with no obvious rashes, CBC, BMP 11/06/17 06:35 11/06/17 06:35 Laboratory Results - last 24 hr 11/05/17 11/05/17 11/06/17 09:00 20:55 06:35 WBC 4.1 RBC 4.21 Hgb 9.9 L Hct 31.8 L MCV 75.4 L MCH 23.4 L MCHC 31.1 L RDW 20.2 H Plt Count 276 MPV 7.8 Absolute Neuts (auto) 2.3 Neutrophils % 56.7 Lymphocytes % 24.5 Monocytes % 14.3 H Eosinophils % 3.9 Basophils % 0.6 Nucleated RBC % 0 Sodium Potassium Chloride Carbon Dioxide Anion Gap BUN Creatinine Creat Clearance w eGFR Random Glucose Calcium Phosphorus Magnesium Iron 23 L TIBC 474 H Iron Saturation 5 L Ferritin Total Bilirubin AST ALT Alkaline Phosphatase Creatine Kinase 90 Troponin I < 0.02 Total Protein Albumin Stool Occult Blood 11/06/17 11/06/17 06:35 15:10 WBC RBC Hgb Hct MCV MCH MCHC RDW Plt Count MPV Absolute Neuts (auto) Neutrophils % Lymphocytes % Monocytes % Eosinophils % Basophils % Nucleated RBC % Sodium 136 Potassium 4.3 Chloride 102 Carbon Dioxide 27 Anion Gap 7 L BUN 11 Creatinine 0.6 Creat Clearance w eGFR > 60 Random Glucose 93 Calcium 8.6 Phosphorus 4.5 Magnesium 2.0 Iron TIBC Iron Saturation Ferritin 15.2 Total Bilirubin 0.4 AST 36 ALT 34 Alkaline Phosphatase 147 H Creatine Kinase Troponin I Total Protein 6.6 Albumin 3.2 L Stool Occult Blood Negative Current Medications Acetaminophen (Tylenol -) 650 mg PO Q4H PRN PRN Reason: PAIN LEVEL 1-5 Last Admin: 11/06/17 18:50 Dose: 650 mg Amlodipine Besylate (Norvasc -) 5 mg PO DAILY [facility] Last Admin: 11/06/17 09:21 Dose: 5 mg Divalproex Sodium (Depakote -) 500 mg PO BID [facility] Escitalopram Oxalate (Lexapro -) 10 mg PO DAILY [facility] Last Admin: 11/06/17 09:21 Dose: 10 mg Heparin Sodium (Porcine) (Heparin -) 5,000 unit SQ TID [facility] Last Admin: 11/06/17 13:08 Dose: 5,000 unit Ceftriaxone Sodium 1 gm/ (Dextrose) 50 mls @ 100 mls/hr IVPB DAILY [facility]; Protocol Last Admin: 11/06/17 09:21 Dose: 100 mls/hr Lisinopril (Prinivil) 5 mg PO DAILY [facility] Ranitidine HCl (Zantac -) 150 mg PO BID [facility] Tramadol HCl (Ultram -) 25 mg PO Q4H PRN PRN Reason: PAIN LEVEL 6-10 Last Admin: 11/06/17 16:03 Dose: 25 mg Microbiology 11/05/17 09:55 Blood - Peripheral Venous Blood Culture - Preliminary NO GROWTH OBTAINED AFTER 24 HOURS, INCUBATION TO CONTINUE FOR 4 DAYS. 11/05/17 09:30 Blood - Peripheral Venous Blood Culture - Preliminary NO GROWTH OBTAINED AFTER 24 HOURS, INCUBATION TO CONTINUE FOR 4 DAYS. 11/04/17 20:40 Urine - Urine Clean Catch Urine Culture - Preliminary Lactose Fermenting Neg Bacilli Streptococcus Viridans ASSESSMENT/PLAN: 72 yo F with a signif PMHx of CAD, HTN, and HLD, GERD, seizures s/p benign brain tumor, anxiety, with prior ER visits for atypical chest pain (negative nuclear stress test performed May 2017), who presents to the ER complaining of chest pain, headache and chills x 1 day found to have a positive UA Atypical reproducible and constant chest pain, ACS ruled out Pain is reproducible, with hyperesthesia noted generally trops -ve x1 trend trops EKG- NSR 66bpm, NSTE/NSTD, Normal axis, QTc-434, tele Lastest ECHO- 10/12/17 , Pt not on ASA because of reported allergy to ASA Hold off pt transfer to [facility] Sepsis secondary to complicated UTI Leucopenia, tachycardia, tmax 101 at presentation burning on urination, bilateral cva tenderness (unclear pain treshold) Ceftriaxone 1g daily (11/05) cont UA- LE1+, many mucus, WBC-17, rare epith Ucx -Lactose fermenting neg bacilli, strep viridans, pending sensitivities Bcx- no growth (drawn after AB) Microcytic anemia MCV-75.5 Fecal occult blood--ve Iron studies- Iron def anemai picture Hold feosol to avoid confusion for melena stools Out pt follow up for colonoscopy Transfusion treshold <7 Monitor CAD, Per medication list, Pt not taking ASA at home, no positive trops noted in past, previous stress test negative Heart score 4- 12-16.17% risk of adverse cardiovascular event HTN, Amlodipine confirmed on med rec-resume 5mg daily Stop metoprolol Start lisinopril 5mg daily HLD Recent lipids 07/31, not elevated Med recs without statin COPD Not in exacerbation GERD, Resume ranitidine elevated alk phosphatase Pt on chronic low dose tylenol at home seizures s/p benign brain tumor Resume home keppra anxiety Resume home escitalopram FEN NS @75 monitor lytes, replete as needed reduced sodium diet PPx Heparin sq Dispo medsurg Visit type - Emergency Visit Emergency Visit: Yes ED Registration Date: 11/05/17 Care time: The patient presented to the Emergency Department on the above date and was hospitalized for further evaluation of their emergent condition. - New Patient This patient is new to me today: No - Critical Care Critical Care patient: No - Discharge Referral Referred to [facility] No
[2017-11-06] MEDS ORDERED: DIVALPROEX SODIUM 250 MG TABLET E.C. PO SCH (22:00)
[2017-11-06] MEDS: RANITIDINE HCL 150 MG TABLET (FP) PO SCH (22:50)
[2017-11-07] MEDS: ACETAMINOPHEN 325 MG TABLET (FP) PO PRN (01:28)
[2017-11-07] MEDS: traMADol HCL 50 MG TABLET PO PRN ×2 (04:24→12:43)
[2017-11-07] MEDS: HEPARIN NA (PORCINE) 5,000 UNITS/ML 1ML VIAL SQ SCH ×2 (06:51→15:02)
[2017-11-07 07:40] LABS: BASO % 0.4 % (0-2.0); EOS % 3.4 % (0-4.5); HEMATOCRIT 32.1 % (32.4-45.2); HEMOGLOBIN 9.9 GM/dL (10.7-15.3); LYMPH % 25.5 % (8-40); MCH 23.4 pg (25.7-33.7); MEAN CELL VOLUME 75.5 fl (80-96); MONO % 16.3 % (3.8-10.2); NEUT % 54.4 % (42.8-82.8); PLATELET COUNT 275 K/MM3 (134-434); RBC 4.24 M/mm3 (3.60-5.2); RDW 20.1 % (11.6-15.6); WHITE BLOOD COUNT 4.4 K/mm3 (4.0-10.0)
[2017-11-07 09:03] LABS: ALBUMIN 3.2 g/dl (3.4-5.0); ALK PHOS 146 U/L (45-117); ANION GAP 10 MMOL/L (8-16); BILIRUBIN,TOTAL 0.4 mg/dL (0.2-1); BLOOD UREA NITROGEN 8 mg/dL (7-18); CALCIUM 9.3 mg/dL (8.5-10.1); CHLORIDE 99 mmol/L (98-107); CO2 27 mmol/L (21-32); CREATININE 0.6 mg/dL (0.55-1.3); GLUCOSE,RANDOM 95 mg/dL (74-106); MAGNESIUM 2.1 mg/dL (1.8-2.4); PHOSPHOROUS 4.1 mg/dL (2.5-4.9); POTASSIUM 4.2 mmol/L (3.5-5.1); SGOT/AST 28 U/L (15-37); SGPT/ALT 35 U/L (13-61); SODIUM 136 mmol/L (136-145); TOT PROT 6.7 g/dl (6.4-8.2)
[2017-11-07] MEDS ORDERED: DIVALPROEX SODIUM 500 MG TABLET E.C. PO SCH (10:00)
[2017-11-07] MEDS ORDERED: LISINOPRIL 5 MG TABLET (FP) PO SCH (10:00)
[2017-11-07] MEDS ORDERED: DEXTROSE 5%-WATER - 50 ML IVPB ONE (12:33)
[2017-11-07] MEDS ORDERED: cefTRIAXone SODIUM 1 GM VIAL ONE (12:33)
[2017-11-07] MEDS: ESCITALOPRAM OXALATE 10 MG TABLET (FP) PO SCH (12:39)
[2017-11-07] MEDS: CEFTRIAXONE 1 GM in DEXTROSE 5%-WATER - 50 ML IVPB SCH (12:40)
[2017-11-07] MEDS: amLODIPine BESYLATE 5 MG TABLET (FP) PO SCH (12:40)
[2017-11-07] MEDS: RANITIDINE HCL 150 MG TABLET (FP) PO SCH (12:40)
[2017-11-07] MEDS ORDERED: GABAPENTIN 100 MG CAPSULE (FP) PO SCH (14:30)
--- NOTE | 2017-11-07 14:38 | PN ---
Teaching Attending Note Name of Resident: Joann Anand ATTENDING PHYSICIAN STATEMENT I saw and evaluated the patient. I reviewed the resident's note and discussed the case with the resident. I agree with the resident's findings and plan as documented. SUBJECTIVE: No fever or chills . has generalized pain in abd , chest , extremities. OBJECTIVE: NAD CV: RRR, no MRG Lungs: CTAB . ABd: soft, TTP in all quadrants Ext : no edema or erythema, TTP on whole LE and uper ext MS: whole body tenderness on chest wall , back, abd , extremities. ASSESSMENT AND PLAN: 72 y/o lady with h/o HTN, HLP, CAD, COPD, CVA, GERD/PUD, Seizure, benign brain tumor s/o craniotomy, and recurrent admissions for who presented with CP . she was found to have A UTI 1- atypical CP . reproducible , generalized body tenderness. No further cardiac w/u 2- Complicated UTI/ possible pyelonephritis. - no more fever. urine cx with Klebsiella and strep viridance. - will dc on Vantin for 7 more days to complete 10 total 3- HTN urgency: meds confirmed and updated , lisinopril and norvasc 4- Microcytic anemia: iron studies indicate iron def anemia. has h/o PUD/GERD. could have chronic slow GI bleed vs nutritional def. - rectal exam per resident, with - OB and brown stool - HB stable. no signs of active bleed. - f/u as out pt - start iron supplements at dc 5- h/o CVA :confirmed with her PCP. had allergic reaction to aspirin. will not start plavix as she will need GI eval for anemia first Dispo : wa home today .VNS
--- NOTE | 2017-11-07 16:15 | DS ---
Physical Exam: SUBJECTIVE: Patient seen and examined this morning at bedside. Patient continues to complain of generalized pain. OBJECTIVE: Vital Signs Period Temp Pulse Resp BP Sys/Christensen Pulse Ox Last 24 Hr 98.4 F-98.8 F 62-80 20-20 130-148/74-80 97 PHYSICAL EXAM GENERAL: The patient is awake, alert, in no acute distress. HEAD: NCAT EYES: PERRL THROAT: Oropharynx clear without exudates, moist mucous membranes. NECK: Supple, No JVD LUNGS: Breath sounds equal, clear to auscultation bilaterally, no wheezes HEART: Regular rate and rhythm, S1, S2 without murmur. ABDOMEN: Soft, Obese, Generalized Diffuse tenderness to palpation, nondistended , + bowel sounds, + guarding EXTREMITIES: 2+ pulses, no edema. NEUROLOGICAL: Cranial nerves II through XII grossly intact. Normal speech, Ambulation observed with walker. 5/5 muscle strength of the upper extremities to hand stack supervisor, elbow flexion and extension. 4/5 muscle strength of the lower extremities to hip flexion and extension. SKIN: Hyperesthesia with tenderness to light touch throughout. LABS Laboratory Results - last 24 hr 11/07/17 11/07/17 06:30 06:30 WBC 4.4 RBC 4.24 Hgb 9.9 L Hct 32.1 L MCV 75.5 L MCH 23.4 L MCHC 31.0 L RDW 20.1 H Plt Count 275 MPV 7.0 L D Absolute Neuts (auto) 2.4 Neutrophils % 54.4 Lymphocytes % 25.5 Monocytes % 16.3 H Eosinophils % 3.4 Basophils % 0.4 Nucleated RBC % 0 Sodium 136 Potassium 4.2 Chloride 99 Carbon Dioxide 27 Anion Gap 10 BUN 8 Creatinine 0.6 Creat Clearance w eGFR > 60 Random Glucose 95 Calcium 9.3 Phosphorus 4.1 Magnesium 2.1 Total Bilirubin 0.4 AST 28 ALT 35 Alkaline Phosphatase 146 H Total Protein 6.7 Albumin 3.2 L Microbiology 11/05/17 09:55 Blood - Peripheral Venous Blood Culture - Preliminary NO GROWTH OBTAINED AFTER 48 HOURS, INCUBATION TO CONTINUE FOR 3 DAYS. 11/05/17 09:30 Blood - Peripheral Venous Blood Culture - Preliminary NO GROWTH OBTAINED AFTER 48 HOURS, INCUBATION TO CONTINUE FOR 3 DAYS. 11/04/17 20:40 Urine - Urine Clean Catch Urine Culture - Final Klebsiella Pneumoniae Streptococcus Viridans IMAGING: CXR (11/04 @ 19:43): Shallow inspiration with low lung volumes. No evidence of airspace consolidation or pleural effusion. CXR (11/04 @ 20:17): No evidence of airspace consolidation or pleural effusion. HOSPITAL COURSE: Date of Admission:11/05/17 Date of Discharge: 11/07/17 71 y/o F with a PMHx of DM, CAD, HTN, HLD, COPD, GERD, seizures s/p benign brain tumor, anxiety, and multiple ER visits for atypical chest pain (negative nuclear stress test performed May 2017), presented to the ED complaining of chest pain, headache and chills x 1 day. She was found to have a TMax 101, WBC count 3.9, UA 1+ leuk esterase and 17 wbc and was admitted for Sepsis 2/2 UTI. Her Urine culture is noted above. She completed a 3 day course of Ceftriaxone during her hospital stay and was discharged on a 7 day course of Cefpodoxime. Patient complained of atypical chest pain for which a troponin was < 0.02 x3 and her EKG did not show any ischemic changes. An Echo done on 10/12/17 showed normal LV size, thickness and function, RV normal in size and function, EF 55- 60%, trace MR. During her hospital course, her BP reached >180/90 for which Norvasc and Lisinopril were added to her regimen. She was also found to have Microcytic anemia for which a FOBT was done and negative. Patient was discharged on Feosol and Colace. Minutes to complete discharge: 45 Discharge Summary Reason For Visit: URINARY TRACT INFECTION;FEVER Current Active Problems Atypical chest pain (Acute) Fever (Acute) Musculoskeletal chest pain (Acute) Pain (Acute) Urinary tract infection (Acute) Condition: Improved - Instructions Diet, Activity, Other Instructions: You came in for chest pain that was worse when touched. Tests run did not indicate concern for a cause from the heart. You were noted to have an infection of your urine. We treated you with intravenous antibiotics. We are sending you home on oral antibiotics to take two times a day for the next 7 days. Cefpodoxime 100mg twice daily for 7 days Please make sure to finish taking all the medications as prescribed to avoid the infection coming back or getting worse. We noted your blood level is low (anemia), due to low iron levels. You are being started on iron pills We noted your liver enzymes were high. We have stopped the tylenol you take at home to prevent further damage. do not exceed more than 4 grams of tylenol in 24 hour period You also need to follow up with a stomach doctor for a look into your stomach/ colon to check for any bleeding and about the change in your liver enzymes You blood pressure was noted to be high. We are continuing you on Amlodipine 5mg daily We are starting you on lisinopril 5mg daily. Please follow up with your primary care doctor to monitor your blood pressure We noted you do not have diabetes, continue a low salt diet. Please follow up with your primary care physician in 7 days. Continue all your other medications as prescribed Please return to the ER if you have any signs or symptoms of chest pain, shortness of breath, uncontrollable fever, chills, nausea, vomiting, numbness, tingling, or weakness in any part of your body, changes in vision, or slurred speech. Please return to the ER if symptoms persist, worsen, or new symptoms arise. you are started on iron supplements . take twice a day , then after a week increase to three times a day. it is over the counter and called ferrous sulfate . please take colace , stool softener as iron can cause constipation Referrals: Waldo Mabry MD [Staff Physician] - 1 Week Billie Love DO [Staff Physician] - 1 Week Disposition: HOME - Home Medications Comprehensive Discharge Medication List: Ambulatory Orders Escitalopram Oxalate [Lexapro -] 10 mg PO DAILY 03/10/16 Amlodipine Besylate 5 mg PO DAILY 11/06/17 Betamethasone/Propylene Glyc [Betamethasone Dp Aug 0.05% Crm] 0.05 applic TP BID 11/06/17 Divalproex Sodium [Depakote] 500 mg PO BID 11/06/17 Famotidine 20 mg PO BID 11/06/17 Cefpodoxime Proxetil [Vantin -] 100 mg PO BID #14 tablet 11/07/17 Docusate Sodium [Colace] 100 mg PO BID #1 capsule 11/07/17 Ferrous Sulfate [Feosol] 325 mg PO BID #60 tablet 11/07/17 Lisinopril [Prinivil] 5 mg PO DAILY #30 tablet 11/07/17 This patient is new to me today: Yes Date on this admission: 11/08/17 Emergency Visit: Yes ED Registration Date: 11/05/17 Care time: The patient presented to the Emergency Department on the above date and was hospitalized for further evaluation of their emergent condition. Critical Care patient: No - Discharge Referral Referred to [facility] Med P.C.: No
[2017-11-07 16:52] LABS: INR 1.05 (0.83-1.09); PROTHROMBIN TIME (PATIENT) 11.9 SEC (9.7-13.0)
[2017-11-07 20:11] VITALS: BP 153/68; PULSE 83; TEMP 99
== END 2017-11-07 21:07 | disposition home or self-care (01) | DRG 872 ==
LOC: JER 17:37 → JERBED 22:25 → OBSVTOIN 11-05 01:07 → J6S 11-05 01:15
PROVIDERS: ADMIT Internal Medicine; ATTEND Internal Medicine
DX: A41.9 Sepsis, unspecified organism (principal); N39.0 Urinary tract infection, site not specified; G40.89 Other seizures; I10 Essential (primary) hypertension; E11.9 Type 2 diabetes mellitus without complications; J44.9 Chronic obstructive pulmonary disease, unspecified; Z86.73 Personal history of transient ischemic attack (TIA), and cerebral infarction without residual deficits; K21.9 Gastro-esophageal reflux disease without esophagitis; D50.9 Iron deficiency anemia, unspecified; F41.9 Anxiety disorder, unspecified; F32.9 Major depressive disorder, single episode, unspecified; R07.89 Other chest pain; E66.9 Obesity, unspecified; Z68.38 Body mass index [BMI] 38.0-38.9, adult; I25.10 Atherosclerotic heart disease of native coronary artery without angina pectoris; E78.5 Hyperlipidemia, unspecified; R74.8 Abnormal levels of other serum enzymes; B96.1 Klebsiella pneumoniae [K. pneumoniae] as the cause of diseases classified elsewhere; B95.4 Other streptococcus as the cause of diseases classified elsewhere
CPT/HCPCS: 36415; 71045-TC-FY; 71046-TC-FY; 80053; 81003; 81015; 82272; 82550; 82728; 82962; 83540; 83550; 83605; 83735; 84100; 84484; 85025; 85044; 85610; 87040; 87077; 87086; 87186; 90688; 93005; 93010; 97116-GP; 97161-GP; 99283-25; G0008; G0378; J1644; J7030

== ENCOUNTER 2017-11-09 18:29 | Emergency (ER) | payer OTHER ==
--- NOTE | 2017-11-09 18:52 | PDOC ---
Rapid Medical Evaluation Time Seen by Provider: 11/09/17 18:51 Medical Evaluation: Allergies Allergy/AdvReac Type Severity Reaction Status Date / Time aspirin Allergy Severe "NERVOUS" Verified 11/04/17 20:20 morphine Allergy Severe "ANXIETY-DE Verified 11/04/17 20:20 SPERATION" I have performed a brief in-person evaluation of this patient. The patient presents with a chief complaint of: chest pain Pertinent physical exam findings: none I have ordered the following: ekg The patient will proceed to the ED for further evaluation. Discharge Disposition - Diagnosis Chest pain - Referrals - Patient Instructions - Post Discharge Activity
[2017-11-09 18:58] VITALS: BP 135/63; PULSE 77; TEMP 97.6; BMI 35.9
--- NOTE | 2017-11-09 20:30 | PDOC ---
History of Present Illness - General Chief Complaint: Pain Stated Complaint: PAIN Time Seen by Provider: 11/09/17 18:51 History Source: Patient, Old Records Exam Limitations: Language Barrier ([facility] #[id number]) - History of Present Illness Initial Comments: 11/09/17 20:29 HISTORY OF PRESENT ILLNESS: This is a 72-year-old woman with past medical history of hyperlipidemia, hypertension, COPD, CVA with residual altered balance , diabetes, GERD and seizures status post craniotomy for benign meningioma who presents emergency Department with midsternal chest pain and headache. Patient has been seen and evaluated in this emergency department 15 times since September 23 of this year for similar complaints. Patient was most recently evaluated on for similar complaints and had negative workup. Patient denies any change in the pain since previous evaluations. Patient denies fevers, chills, blurry vision, dizziness, shortness of breath, abdominal pain, nausea, vomiting, dysuria, hematuria, rectal bleeding, diarrhea. No recent travel or sick contacts. PAST MEDICAL HISTORY: see HPI SURGICAL HISTORY: see HPI ALLERGIES: No known drug allergies REVIEW OF SYSTEMS General/Constitutional: Denies fever or chills. Denies weakness, weight change. HEENT: Denies change in vision. Denies ear pain or discharge. Denies sore throat. Cardiovascular: Midsternal chest pain. No shortness of breath. Respiratory: Denies cough, wheezing, or hemoptysis. Gastrointestinal: Denies nausea, vomiting, diarrhea or constipation. Denies rectal bleeding. Genitourinary: Denies dysuria, frequency, or change in urination. Musculoskeletal: Denies joint or muscle swelling or pain. Denies neck or back pain. Skin and breasts: Denies rash or easy bruising. Neurologic: Frontal headache. Deneis vertigo, loss of consciousness, or loss of sensation. Psychiatric: Denies depression or anxiety. Endocrine: Denies increased thirst. Denies abnormal weight change. Hematologic/Lymphatic: Denies anemia, easy bleeding, or history of blood clots. Allergic/Immunologic: Denies hives or skin allergy. Denies latex allergy. PHYSICAL EXAM General Appearance: Well-appearing, appropriately dressed. No apparent distress , no intoxication. HEENT: EOMI, PERRLA, normal ENT inspection, normal voice, TMs normal, pharynx normal. No conjunctival pallor. No photophobia, scleral icterus. Neck: Supple. Trachea midline. No tenderness, rigidity, carotid bruit, stridor , lymphadenopathy, or thyromegaly. Respiratory/Chest: Lungs CTAB. No shortness of breath, chest tenderness, respiratory distress, accessory muscle use. No crackles, rales, rhonchi, stridor , wheezing, dullness Cardiovascular: RRR. S1, S2. No JVD, murmur, bradycardia, tachycardia. Vascular Pulses: Dorsalis-Pedis (R): 2+, Dorsalis-Pedis (L): 2+ Gastrointestinal/Abdominal: Normal bowel sounds. Abdomen soft, non-distended. No tenderness or rebound tenderness. No organomegaly, pulsatile mass, guarding, hernia, hepatomegaly, splenomegaly. Lymphatic: No adenopathy, tenderness. Musculoskeletal/Extremities: Normal inspection. FROM of all extremities, normal capillary refill. Pelvis Stable. No CVA tenderness. No tenderness to extremities, pedal edema, swelling, erythema or deformity. Integumentary: Appropriate color, dry, warm. No cyanosis, erythema, jaundice or rash Neurologic: digital librarian II-XII intact. Fully oriented, alert. Appropriate mood/affect. Motor strength 5/5. No appreciable EOM palsy, facial droop or sensory deficit. Past History - Past Medical History Allergies/Adverse Reactions: Allergies Allergy/AdvReac Type Severity Reaction Status Date / Time aspirin Allergy Severe "NERVOUS" Verified 11/09/17 18:56 morphine Allergy Severe "ANXIETY-DE Verified 11/09/17 18:56 SPERATION" Home Medications: Ambulatory Orders Escitalopram Oxalate [Lexapro -] 10 mg PO DAILY 03/10/16 Amlodipine Besylate 5 mg PO DAILY 11/06/17 Betamethasone/Propylene Glyc [Betamethasone Dp Aug 0.05% Crm] 0.05 applic TP BID 11/06/17 Divalproex Sodium [Depakote] 500 mg PO BID 11/06/17 Famotidine 20 mg PO BID 11/06/17 Cefpodoxime Proxetil [Vantin -] 100 mg PO BID #14 tablet 11/07/17 Docusate Sodium [Colace] 100 mg PO BID #1 capsule 11/07/17 Ferrous Sulfate [Feosol] 325 mg PO BID #60 tablet 11/07/17 Lisinopril [Prinivil] 5 mg PO DAILY #30 tablet 11/07/17 Anemia: Yes Asthma: No Cancer: No Cardiac Disorders: Yes (Chest pain) 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, baseline confusion and dizziness) COPD: Yes CHF: No DVT: No Dementia: No Diabetes: Yes GI Disorders: Yes (gerd, gastric ulcer, dysphagia) Disorders: Yes (kidney stone in the past) HTN: Yes Hypercholesterolemia: Yes Liver Disease: No Psychiatric Problems: Yes (ANXIETY DEPRESSION) Seizures: Yes (S/P craniotomy for benign tumor - on Depakote for seizure prophylaxis) Thyroid Disease: No - Surgical History Abdominal Surgery: Yes Appendectomy: No Cardiac Surgery: No Cholecystectomy: Yes Lung Surgery: No Neurologic Surgery: Yes (removal left meningioma, craniotomy) Orthopedic Surgery: Yes (bilat knee replacement) - Immunization History Td Vaccination: Yes TDAP Vaccination: No Immunization Up to Date: No - Suicide/Smoking/Psychosocial Hx Smoking Status: No Smoking History: Never smoked Have you smoked in the past 12 months: No Number of Cigarettes Smoked Daily: 0 Cigars Per Day: 0 Information on smoking cessation initiated: No Hx Alcohol Use: No Drug/Substance Use Hx: No Substance Use Type: None Hx Substance Use Treatment: No *Physical Exam - Vital Signs Last Vital Signs Temp Pulse Resp BP Pulse Ox 97.6 F 77 19 135/63 97 11/09/17 18:51 11/09/17 18:51 11/09/17 18:51 11/09/17 18:51 11/09/17 18:51 ED Treatment Course - LABORATORY CBC & Chemistry Diagram: 11/09/17 20:52 - RADIOLOGY Radiology Studies Ordered: Category Date Time Status CHEST PA & LAT [RAD] Stat Radiology 11/09/17 20:28 Ordered Medical Decision Making - Medical Decision Making 11/09/17 20:29 A/P: 72-year-old woman with mid sternal chest pain Lungs clear to auscultation bilaterally Respirations even and unlabored Regular rate and rhythm. S1 and S2 present. No murmurs, rub or gallop noted Abdomen soft nontender nondistended This patient is well-known to this hospital with frequent visits for chest pain , get an EKG, chest x-ray and cardiac profile. Full testing is normal with discharge the patient home to follow-up with the primary doctor. 11/09/17 20:58 EKG performed and reviewed by me-sinus rhythm with rate of 71. Normal intervals noted. No T-wave inversions, ST elevations or ST depressions present. No significant change from EKG performed 11/04/17. 11/09/17 23:26 X-rays read by me: Angles clear no focal infiltrates or consolidations present no significant change from study performed 11/04/17. BMP is unremarkable. Troponin is within normal limits. EKG is sinus rhythm. I will discharge patient home to follow-up with her primary doctor. *DC/Admit/Observation/Transfer Diagnosis at time of Disposition: Chest pain Qualifiers: Chest pain type: unspecified Qualified Code(s): R07.9 - Chest pain, unspecified - Discharge Dispostion Disposition: HOME Condition at time of disposition: Fair Decision to Admit order: No - Referrals Referrals: Waldo Mabry MD [Primary Care Provider] - - Patient Instructions Additional Instructions: Make an appointment with her primary doctor for reevaluation of your chest pain. Take Tylenol as needed for your headaches and chest pain. Thank you very much for choosing us to provide your emergent health care needs. Louisa tavo jihan con perla mdico de cabecera para la reevaluacin de perla dolor en el pecho. [place] Tylenol segn sea necesario para devorah elsy de carlos y dolor en el pecho. Muchas kathy por elegirnos para brindarle devorah necesidades emergentes de atencin mdica. - Post Discharge Activity
[2017-11-09] MEDS ORDERED: ACETAMINOPHEN 500 MG TABLET (FP) PO ONE (21:46)
[2017-11-09] MEDS ORDERED: ACETAMINOPHEN 325 MG TABLET (FP) PO ONE (21:48)
[2017-11-09] MEDS ORDERED: ACETAMINOPHEN 325 MG TABLET (FP) ONE (21:49)
[2017-11-09 22:09] LABS: ANION GAP 12 MMOL/L (8-16); BLOOD UREA NITROGEN 22 mg/dL (7-18); CALCIUM 8.9 mg/dL (8.5-10.1); CHLORIDE 104 mmol/L (98-107); CO2 23 mmol/L (21-32); CREATININE 0.6 mg/dL (0.55-1.3); GLUCOSE,RANDOM 127 mg/dL (74-106); POTASSIUM 4.3 mmol/L (3.5-5.1); SODIUM 138 mmol/L (136-145)
--- NOTE | 2017-11-10 11:26 | EKG ---
Test Reason : Blood Pressure : / mmHG Vent. Rate : 071 BPM Atrial Rate : 071 BPM P-R Int : 156 ms QRS Dur : 082 ms QT Int : 390 ms P-R-T Axes : 037 006 030 degrees QTc Int : 423 ms NORMAL SINUS RHYTHM NORMAL ECG WHEN COMPARED WITH ECG OF 04-NOV-2017 19:28, NO SIGNIFICANT CHANGE WAS FOUND Confirmed by ANNITA VENTURA MD ([id number]) on 11/10/2017 11:26:21 AM Referred By: Confirmed By:ANNITA VENTURA MD
== END 2017-11-09 23:57 | disposition home or self-care (01) ==
LOC: JER 18:29
DX: R07.9 Chest pain, unspecified (principal); I10 Essential (primary) hypertension; D64.9 Anemia, unspecified; J44.9 Chronic obstructive pulmonary disease, unspecified; F41.8 Other specified anxiety disorders; Z87.19 Personal history of other diseases of the digestive system; I69.818 Other symptoms and signs involving cognitive functions following other cerebrovascular disease; Z86.69 Personal history of other diseases of the nervous system and sense organs; Z86.011 Personal history of benign neoplasm of the brain; E11.9 Type 2 diabetes mellitus without complications
CPT/HCPCS: 36415; 71046-TC-FY; 80048; 82550; 84484; 93005; 93010; 99282-25

== ENCOUNTER 2017-11-12 17:52 | Emergency (ER) | payer OTHER ==
[2017-11-12 18:04] VITALS: BP 134/74; PULSE 78; TEMP 99.3; BMI 34.6
--- NOTE | 2017-11-12 18:22 | PDOC ---
History of Present Illness - General Chief Complaint: Chest Pain Stated Complaint: CHEST PAIN Time Seen by Provider: 11/12/17 18:03 History Source: Patient - History of Present Illness Initial Comments: 11/12/17 18:30 Patient is a 72 year old female with a significant PMH of HLD, HTN, COPD, CVA (w /residual altered balance), NIDDM, seizures (2/2 to benign menigioma craniotomy ) presets to the ED c/o 1 month h/o chest pain and GALLARDO. GALLARDO is intermittent, global, without visual changes, AMS, or nausea/vomiting. Chest pain is diffuse , constant w/o lightheadedness, palpitations, nausea. States pain is unchanged from pain for which she has been evaluated in our ED on prior occasion. Patient denies fevers, chills Patient denies abdominal pain, diarrhea/constipation, dysuria/hematuria. Patient denies weakness, numbness, tingling, syncope. Allergy: ASA, Morphine Surgical: craniotomy Social: denies toxic habits PMD: Dr. Clotilde M.D. As per EMR, patient last evaluated in our ED on 11/09 for chest pain at which time Troponin (-) x1 and no ischemic changes noted on ECG. Past History - Past Medical History Allergies/Adverse Reactions: Allergies Allergy/AdvReac Type Severity Reaction Status Date / Time aspirin Allergy Severe "NERVOUS" Verified 11/12/17 18:04 morphine Allergy Severe "ANXIETY-DE Verified 11/12/17 18:04 SPERATION" Home Medications: Ambulatory Orders Escitalopram Oxalate [Lexapro -] 10 mg PO DAILY 03/10/16 Amlodipine Besylate 5 mg PO DAILY 11/06/17 Betamethasone/Propylene Glyc [Betamethasone Dp Aug 0.05% Crm] 0.05 applic TP BID 11/06/17 Divalproex Sodium [Depakote] 500 mg PO BID 11/06/17 Famotidine 20 mg PO BID 11/06/17 Cefpodoxime Proxetil [Vantin -] 100 mg PO BID #14 tablet 11/07/17 Docusate Sodium [Colace] 100 mg PO BID #1 capsule 11/07/17 Ferrous Sulfate [Feosol] 325 mg PO BID #60 tablet 11/07/17 Lisinopril [Prinivil] 5 mg PO DAILY #30 tablet 11/07/17 Anemia: Yes Asthma: No Cancer: No Cardiac Disorders: Yes (Chest pain) 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, baseline confusion and dizziness) COPD: Yes CHF: No DVT: No Dementia: No Diabetes: Yes GI Disorders: Yes (gerd, gastric ulcer, dysphagia) Disorders: Yes (kidney stone in the past) HTN: Yes Hypercholesterolemia: Yes Liver Disease: No Psychiatric Problems: Yes (ANXIETY DEPRESSION) Seizures: Yes (S/P craniotomy for benign tumor - on Depakote for seizure prophylaxis) Thyroid Disease: No - Surgical History Abdominal Surgery: Yes Appendectomy: No Cardiac Surgery: No Cholecystectomy: Yes Lung Surgery: No Neurologic Surgery: Yes (removal left meningioma, craniotomy) Orthopedic Surgery: Yes (bilat knee replacement) - Immunization History Td Vaccination: Yes TDAP Vaccination: No Immunization Up to Date: No - Suicide/Smoking/Psychosocial Hx Smoking Status: No Smoking History: Never smoked Have you smoked in the past 12 months: No Number of Cigarettes Smoked Daily: 0 Cigars Per Day: 0 Hx Alcohol Use: No Drug/Substance Use Hx: No Substance Use Type: None Hx Substance Use Treatment: No Review of Systems - Review of Systems Constitutional: No: Chills, Fever HEENTM: No: Blurred Vision, Double Vision Respiratory: No: Cough, Shortness of Breath Cardiac (ROS): Yes: Chest Pain. No: Lightheadedness, Palpitations, Syncope ABD/GI: No: Constipated, Diarrhea, Nausea, Vomiting : No: Burning, Dysuria Neurological: Yes: Headache. No: Numbness, Tingling *Physical Exam - Vital Signs Last Vital Signs Temp Pulse Resp BP Pulse Ox 99.3 F 78 18 134/74 99 11/12/17 17:59 11/12/17 17:59 11/12/17 17:59 11/12/17 17:59 11/12/17 17:59 - Physical Exam General Appearance: Yes: Nourished, Appropriately Dressed HEENT: positive: Normal Voice, Hearing Grossly Normal Neck: positive: Trachea midline, Supple Respiratory/Chest: positive: Lungs Clear, Normal Breath Sounds. negative: Labored Respiration, Rapid RR Cardiovascular: positive: S1, S2. negative: Edema, JVD, Murmur Gastrointestinal/Abdominal: positive: Normal Bowel Sounds, Soft Musculoskeletal: negative: CVA Tenderness (R), CVA Tenderness (L) Neurologic: positive: Fully Oriented, Alert Medical Decision Making - Medical Decision Making 11/12/17 18:38 72 year old patient with chest pain. H/o of multiple evaluations for chest pain with no concerning findings. VS unremarkable ECG shows NSR HR 74, normal axis, no MACHELLE/STD/TWI. Will obtain Troponin x1 - if negative likely discharge home. 11/12/17 19:02 Patient signed out to Dr. Lutz (Resident) and Dr. Gallagher (Attending). *DC/Admit/Observation/Transfer Diagnosis at time of Disposition: Atypical chest pain - Discharge Dispostion Condition at time of disposition: Stable - Referrals Referrals: Adair Evans MD [Staff Physician] - - Patient Instructions Printed Discharge Instructions: DI for Atypical Chest Pain Additional Instructions: Please return to the emergency department with any new or worsening symptoms or concerns. Please follow up with your primary care physician within 72 hours.Please follow up with cardiology within one week. - Post Discharge Activity
--- NOTE | 2017-11-12 18:55 | PDOC ---
*Physical Exam - Vital Signs Last Vital Signs Temp Pulse Resp BP Pulse Ox 99.3 F 78 18 134/74 99 11/12/17 17:59 11/12/17 17:59 11/12/17 17:59 11/12/17 17:59 11/12/17 17:59 - Physical Exam Comments: 11/12/17 18:52 GENERAL: Awake, alert, and fully oriented, in no acute distress HEAD: No signs of trauma, normocephalic, atraumatic EYES: PERRLA, EOMI, sclera anicteric, conjunctiva clear ENT: Auricles normal inspection, hearing grossly normal, nares patent, oropharynx clear without exudates. Moist mucosa NECK: Normal ROM, supple, no lymphadenopathy, JVD, or masses LUNGS: No distress, speaks full sentences, clear to auscultation bilaterally HEART: Regular rate and rhythm, normal S1 and S2, no murmurs, rubs or gallops, peripheral pulses normal and equal bilaterally. ABDOMEN: Soft, nontender, normoactive bowel sounds. No guarding, no rebound. No masses EXTREMITIES : Normal inspection, Normal range of motion, no edema. No clubbing or cyanosis. NEUROLOGICAL: Cranial nerves II through XII grossly intact. Normal speech, no focal sensorimotor deficits SKIN: Warm, Dry, normal turgor, no rashes or lesions noted Medical Decision Making - Medical Decision Making 11/12/17 18:[address] Last. 72 yo F with h/o recurrent ED visits, HLD, HTN, COPD, CVA (w/residual altered balance), NIDDM, seizures (2/2 to benign meningioma craniotomy) who p/w 1 month of diffuse,chest pain. Similar to prior ED visits. VSS, AF. ACS/NV r/o. R/o PNA. Low risk PE based on Weils criteria. Patient pending labs, CXR. EKG: NSR, HR 74, absnet MACHELLE, STD. Nml axis and interval duration. Unremarkable. Similar to prior EKG. 11/12/17 18:53 ED Course: 11/12/17 19:50 Trop: Neg 11/12/17 19:50 Patient symptoms improved. Stable for d/c with return precautions. Advised to f/ u with cardiology. *DC/Admit/Observation/Transfer Diagnosis at time of Disposition: Atypical chest pain - Discharge Dispostion Condition at time of disposition: Stable Decision to Admit order: No - Referrals Referrals: Adair Evans MD [Staff Physician] - - Patient Instructions Printed Discharge Instructions: DI for Atypical Chest Pain Additional Instructions: Please return to the emergency department with any new or worsening symptoms or concerns. Please follow up with your primary care physician within 72 hours.Please follow up with cardiology within one week. - Post Discharge Activity - Attestations Physician Attestion: 11/12/17 18:55 I attest to the information provided in this note.
--- NOTE | 2017-11-12 18:58 | PDOC ---
Attending Attestation - HPI HPI: 11/12/17 19:15 Patient is a 72 year old female with a significant PMH of HLD, HTN, COPD, CVA (w /residual altered balance), NIDDM, seizures (2/2 to benign meningioma craniotomy ) presets to the ED with c/o chest pain. She reports the chest pain is diffuse, constant. States pain is unchanged from pain for which she has been evaluated in our ED on prior occasion. Patient denies fevers, chills, lightheadedness, or palpitations. Patient denies abdominal pain, diarrhea/constipation, dysuria/hematuria. Patient denies weakness, numbness, tingling, syncope. Allergy: ASA, Morphine Surgical: craniotomy Social: denies toxic habits PMD: Dr. Clotilde M.D. - Physicial Exam PE: 11/12/17 19:15 GENERAL: Well-appearing, well-nourished. No apparent distress. Eating comfortably HEENT: Normocephalic, atraumatic. PERRL, EOM intact. CARDIOVASCULAR: Normal S1, S2. Regular rate and rhythm. PULMONARY: Clear to auscultation bilaterally. ABDOMEN: Soft, non-distended, non-tender. EXTREMITIES: Normal ROM in all four extremities. No gross deformities. SKIN: Warm, dry. No rash NEUROLOGICAL: No focal neurological deficits. - Medical Decision Making 11/12/17 19:15 Documentation prepared by Francine Ross, acting as medical sonographer for Florinda Gallagher MD <Francine Ross - Last Filed: 11/12/17 19:15> - Resident Resident Name: Mago Last - ED Attending Attestation I have performed the following: I have examined & evaluated the patient, The case was reviewed & discussed with the resident, I agree w/resident's findings & plan, Exceptions are as noted - HPI HPI: 11/12/17 18:57 72 yo female well known to our ED / she presents again with chest pain - Physicial Exam PE: 11/12/17 18:58 wnwd 72 yo female currently eating a turkey sandwich head ncat neck supple lungs no crackles - Medical Decision Making is negative ekg does not show any ischmia or changes d/c home <Florinda Gallagher - Last Filed: 11/12/17 19:46>
[2017-11-12] MEDS ORDERED: ACETAMINOPHEN 325 MG TABLET (FP) PO ONE (19:49)
[2017-11-12] MEDS ORDERED: ACETAMINOPHEN 325 MG TABLET (FP) ONE (19:54)
--- NOTE | 2017-11-14 10:47 | EKG ---
Test Reason : Blood Pressure : / mmHG Vent. Rate : 074 BPM Atrial Rate : 074 BPM P-R Int : 154 ms QRS Dur : 084 ms QT Int : 402 ms P-R-T Axes : 041 006 034 degrees QTc Int : 446 ms NORMAL SINUS RHYTHM NORMAL ECG WHEN COMPARED WITH ECG OF 09-NOV-2017 19:01, NO SIGNIFICANT CHANGE WAS FOUND Confirmed by Ashvin España MD ([id number]) on 11/14/2017 10:47:07 AM Referred By: Confirmed By:Ashvin España MD
== END 2017-11-12 20:12 | disposition home or self-care (01) ==
LOC: JER 17:52
DX: R07.9 Chest pain, unspecified (principal); I10 Essential (primary) hypertension; E78.5 Hyperlipidemia, unspecified; E11.9 Type 2 diabetes mellitus without complications; Z79.84 Long term (current) use of oral hypoglycemic drugs; J44.9 Chronic obstructive pulmonary disease, unspecified; D64.9 Anemia, unspecified; F41.8 Other specified anxiety disorders; Z86.011 Personal history of benign neoplasm of the brain; Z96.653 Presence of artificial knee joint, bilateral; I69.818 Other symptoms and signs involving cognitive functions following other cerebrovascular disease; I69.893 Ataxia following other cerebrovascular disease
CPT/HCPCS: 36415; 82550; 84484; 93005; 93010; 99283-25

== ENCOUNTER 2017-11-17 19:27 | Emergency (ER) | payer OTHER ==
[2017-11-17 19:40] VITALS: BP 95/54; PULSE 86; TEMP 98.6; BMI 34.6
--- NOTE | 2017-11-17 19:40 | PDOC ---
Rapid Medical Evaluation Time Seen by Provider: 11/17/17 19:34 Medical Evaluation: Allergies Allergy/AdvReac Type Severity Reaction Status Date / Time aspirin Allergy Severe "NERVOUS" Verified 11/12/17 18:04 morphine Allergy Severe "ANXIETY-DE Verified 11/12/17 18:04 SPERATION" 11/17/17 19:34 I have performed a brief in-person evaluation of this patient. The patient presents with a chief complaint of: CP and GALLARDO Pertinent physical exam findings: PULM: Resp even and unlabored. Lungs CTAB Card: RRR. S1S2. No m/r/g. ACW TTP over 4th and 5th ribs. I have ordered the following: EKG, BMP, cardiac profile, CXR The patient will proceed to the ED for further evaluation. Discharge Disposition - Diagnosis Chest wall pain, chronic - Referrals - Patient Instructions - Post Discharge Activity
[2017-11-17 20:51] LABS: ANION GAP 6 MMOL/L (8-16); BLOOD UREA NITROGEN 21 mg/dL (7-18); CALCIUM 9.1 mg/dL (8.5-10.1); CHLORIDE 103 mmol/L (98-107); CO2 26 mmol/L (21-32); CREATININE 0.7 mg/dL (0.55-1.3); GLUCOSE,RANDOM 106 mg/dL (74-106); POTASSIUM 4.6 mmol/L (3.5-5.1); SODIUM 134 mmol/L (136-145)
[2017-11-17] MEDS ORDERED: SODIUM CHLORIDE 0.9% 500 ML INFUS.BAG IV ONE (21:45)
[2017-11-17] MEDS ORDERED: POLYETHYLENE GLYCOL 3350 119 GM BTL PO ONE (21:45)
[2017-11-17] MEDS ORDERED: MAG HYDROX/AL HYDROX/SIMETH 30 ML UNIT-DOSE CUP PO ONE (21:46)
--- NOTE | 2017-11-17 21:46 | PDOC ---
History of Present Illness - General History Source: Patient Exam Limitations: No Limitations - History of Present Illness Initial Comments: 11/17/17 23:54 The patient is a 72 year old female with past medical history significant for COPD, HTN HLD, and DM presents to the emergency department with dizziness and chest pain. The patient reports the chest pain is localized to the L. lower chest wall to the L. upper gastric region. Denies shortness of breath, cough, LOC, numbness, tingling or loss of sensation. Allergies: ASA, Morphine PCP: Dr. Mabry. <Alexandra Mendoza - Last Filed: 11/17/17 23:54> <Barby Miller - Last Filed: 11/18/17 01:01> - General Chief Complaint: Pain Stated Complaint: PAIN Time Seen by Provider: 11/17/17 19:34 Past History <Alexandra Mendoza - Last Filed: 11/17/17 23:54> - Past Medical History Anemia: Yes Asthma: No Cancer: No Cardiac Disorders: Yes (Chest pain) 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, baseline confusion and dizziness) COPD: Yes CHF: No DVT: No Dementia: No Diabetes: Yes GI Disorders: Yes (gerd, gastric ulcer, dysphagia) Disorders: Yes (kidney stone in the past) HTN: Yes Hypercholesterolemia: Yes Liver Disease: No Psychiatric Problems: Yes (ANXIETY DEPRESSION) Seizures: Yes (S/P craniotomy for benign tumor - on Depakote for seizure prophylaxis) Thyroid Disease: No - Surgical History Abdominal Surgery: Yes Appendectomy: No Cardiac Surgery: No Cholecystectomy: Yes Lung Surgery: No Neurologic Surgery: Yes (removal left meningioma, craniotomy) Orthopedic Surgery: Yes (bilat knee replacement) - Immunization History Td Vaccination: Yes TDAP Vaccination: No Immunization Up to Date: No - Suicide/Smoking/Psychosocial Hx Smoking Status: No Smoking History: Never smoked Have you smoked in the past 12 months: No Number of Cigarettes Smoked Daily: 0 Cigars Per Day: 0 Hx Alcohol Use: No Drug/Substance Use Hx: No Substance Use Type: None Hx Substance Use Treatment: No <Barby Miller - Last Filed: 11/18/17 01:01> - Past Medical History Allergies/Adverse Reactions: Allergies Allergy/AdvReac Type Severity Reaction Status Date / Time aspirin Allergy Severe "NERVOUS" Verified 11/17/17 19:40 morphine Allergy Severe "ANXIETY-DE Verified 11/17/17 19:40 SPERATION" Home Medications: Ambulatory Orders Escitalopram Oxalate [Lexapro -] 10 mg PO DAILY 03/10/16 Amlodipine Besylate 5 mg PO DAILY 11/06/17 Betamethasone/Propylene Glyc [Betamethasone Dp Aug 0.05% Crm] 0.05 applic TP BID 11/06/17 Divalproex Sodium [Depakote] 500 mg PO BID 11/06/17 Famotidine 20 mg PO BID 11/06/17 Cefpodoxime Proxetil [Vantin -] 100 mg PO BID #14 tablet 11/07/17 Docusate Sodium [Colace] 100 mg PO BID #1 capsule 11/07/17 Ferrous Sulfate [Feosol] 325 mg PO BID #60 tablet 11/07/17 Lisinopril [Prinivil] 5 mg PO DAILY #30 tablet 11/07/17 Review of Systems - Review of Systems Comments:: 11/17/17 23:55 GENERAL/CONSTITUTIONAL: No fever or chills. No weakness. HEAD, EYES, EARS, NOSE AND THROAT: No change in vision. No ear pain or discharge. No sore throat. CARDIOVASCULAR: (+) L. lower chest pain. No shortness of breath. RESPIRATORY: No cough, wheezing, or hemoptysis. GASTROINTESTINAL: No nausea, vomiting, diarrhea or constipation. GENITOURINARY: No dysuria, frequency, or change in urination. MUSCULOSKELETAL: No joint or muscle swelling or pain. No neck or back pain. SKIN: No rash NEUROLOGIC: No headache, vertigo, loss of consciousness, or change in strength/ sensation. ENDOCRINE: No increased thirst. No abnormal weight change. HEMATOLOGIC/LYMPHATIC: No anemia, easy bleeding, or history of blood clots. ALLERGIC/IMMUNOLOGIC: No hives or skin allergy. <Alexandra Mendoza - Last Filed: 11/17/17 23:54> *Physical Exam - Vital Signs Last Vital Signs Temp Pulse Resp BP Pulse Ox 98.6 F 86 18 95/54 L 98 11/17/17 19:35 11/17/17 19:35 11/17/17 19:35 11/17/17 19:35 11/17/17 19:35 - Physical Exam Comments: 11/17/17 23:55 GENERAL: The patient is in no acute distress. HEAD: Normal with no signs of trauma. EYES: PERRLA, EOMI, sclera anicteric, conjunctiva clear. ENT: Ears normal, nares patent, oropharynx clear without exudates. Moist mucous membranes. NECK: Normal range of motion, supple without lymphadenopathy, JVD, or masses. LUNGS: Breath sounds equal, clear to auscultation bilaterally. No wheezes, and no crackles. HEART:Regular rate and rhythm, normal S1 and S2 without murmur, rub or gallop. ABDOMEN: Soft, nontender, normoactive bowel sounds. No guarding, no rebound. No masses palpable. EXTREMITIES: Normal range of motion, no edema. No clubbing or cyanosis. No erythema, or tenderness. NEUROLOGICAL: Cranial nerves II through XII grossly intact. Normal speech. No focal neurological deficits. MUSCULOSKELETAL: Back non-tender to palpation, no CVA tenderness SKIN: Warm, Dry, normal turgor, no rashes or lesions noted. <Alexandra Mendoza - Last Filed: 11/17/17 23:54> - Vital Signs Last Vital Signs Temp Pulse Resp BP Pulse Ox 98.6 F 86 18 95/54 L 98 11/17/17 19:35 11/17/17 19:35 11/17/17 19:35 11/17/17 19:35 11/17/17 19:35 <Barby Miller - Last Filed: 11/18/17 01:01> ED Treatment Course - LABORATORY CBC & Chemistry Diagram: 11/17/17 20:09 - ADDITIONAL ORDERS Additional order review: Laboratory Results 11/17/17 20:09 Sodium 134 L Potassium 4.6 Chloride 103 Carbon Dioxide 26 Anion Gap 6 L BUN 21 H Creatinine 0.7 Creat Clearance w eGFR > 60 Random Glucose 106 Calcium 9.1 Creatine Kinase 38 Troponin I < 0.02 - Medications Given in the ED: ED Medications Discontinued Medications Generic Name Dose Route Start Last Admin Trade Name Freq PRN Reason Stop Dose Admin Al Hydroxide/Mg Hydroxide 30 ml 11/17/17 21:46 11/17/17 22:32 Mylanta Oral Suspension - PO 11/17/17 21:47 30 ml ONCE ONE Administration Polyethylene Glycol 17 gm 11/17/17 21:45 11/17/17 22:33 Miralax (For Daily Use) - PO 11/17/17 21:46 17 gm ONCE ONE Administration Sodium Chloride 500 ml 11/17/17 21:45 11/17/17 22:28 Normal Saline - IV 11/17/17 21:46 500 ml ONCE ONE Administration <Alexandra Mendoza - Last Filed: 11/17/17 23:54> - LABORATORY CBC & Chemistry Diagram: 11/17/17 20:09 - ADDITIONAL ORDERS Additional order review: Laboratory Results 11/17/17 20:09 Sodium 134 L Potassium 4.6 Chloride 103 Carbon Dioxide 26 Anion Gap 6 L BUN 21 H Creatinine 0.7 Creat Clearance w eGFR > 60 Random Glucose 106 Calcium 9.1 Creatine Kinase 38 Troponin I < 0.02 <Barby Miller - Last Filed: 11/18/17 01:01> Medical Decision Making - Medical Decision Making 11/17/17 22:39 CXR normal; chem normal; trop normal; EKG normal. Pt will be treated for contipation and gas and she will be hydrated as she is hypotensive. <Barby Miller - Last Filed: 11/18/17 01:01> *DC/Admit/Observation/Transfer - Attestations Scribe Attestion: 11/17/17 23:55 Documentation prepared by Alexandra Mendoza, acting as medical planner for Barby Miller MD. <Alexandra Mendoza - Last Filed: 11/17/17 23:54> - Discharge Dispostion Decision to Admit order: No <Barby Miller - Last Filed: 11/18/17 01:01> Diagnosis at time of Disposition: Chest wall pain, chronic, Dehydration - Discharge Dispostion Disposition: HOME Condition at time of disposition: Stable - Referrals Referrals: Waldo Mabry MD [Primary Care Provider] - - Patient Instructions Printed Discharge Instructions: DI for Dehydration -- Adult Print Language: [place] - Post Discharge Activity
[2017-11-17] MEDS ORDERED: MAG HYDROX/AL HYDROX/SIMETH 30 ML UNIT-DOSE CUP ONE (22:14)
--- NOTE | 2017-11-18 17:00 | EKG ---
Test Reason : Blood Pressure : / mmHG Vent. Rate : 066 BPM Atrial Rate : 066 BPM P-R Int : 154 ms QRS Dur : 082 ms QT Int : 410 ms P-R-T Axes : 010 004 029 degrees QTc Int : 429 ms NORMAL SINUS RHYTHM NORMAL ECG WHEN COMPARED WITH ECG OF 12-NOV-2017 17:56, NO SIGNIFICANT CHANGE WAS FOUND Confirmed by LATA POLK MD ([id number]) on 11/18/2017 4:59:38 PM Referred By: Confirmed By:LATA POLK MD
== END 2017-11-18 01:29 | disposition home or self-care (01) ==
LOC: JER 19:27
DX: R07.89 Other chest pain (principal); K59.00 Constipation, unspecified; E86.0 Dehydration; I10 Essential (primary) hypertension; E11.9 Type 2 diabetes mellitus without complications; E78.5 Hyperlipidemia, unspecified; D64.9 Anemia, unspecified; J44.9 Chronic obstructive pulmonary disease, unspecified; F41.9 Anxiety disorder, unspecified; Z87.19 Personal history of other diseases of the digestive system; I69.819 Unspecified symptoms and signs involving cognitive functions following other cerebrovascular disease; I69.893 Ataxia following other cerebrovascular disease; Z96.653 Presence of artificial knee joint, bilateral
CPT/HCPCS: 36415; 71046-TC-FY; 80048; 82550; 84484; 93005; 93010; 99281-25

== ENCOUNTER 2017-11-19 19:21 | Emergency (ER) | payer OTHER ==
[2017-11-19 19:42] VITALS: BP 117/72; PULSE 78; TEMP 97.9; BMI 36.8
== END 2017-11-19 22:44 | disposition left against medical advice (07) ==
LOC: JER 19:21
DX: Z53.21 Procedure and treatment not carried out due to patient leaving prior to being seen by health care provider (principal)
CPT/HCPCS: 99281-25

== ENCOUNTER 2017-11-21 17:33 | Emergency (ER) | payer OTHER ==
--- NOTE | 2017-11-21 18:11 | PDOC ---
Rapid Medical Evaluation Chief Complaint: Chest Pain Time Seen by Provider: 11/21/17 18:10 Medical Evaluation: Allergies Allergy/AdvReac Type Severity Reaction Status Date / Time aspirin Allergy Severe "NERVOUS" Verified 11/21/17 18:09 morphine Allergy Severe "ANXIETY-DE Verified 11/21/17 18:09 SPERATION" 11/21/17 18:10 The patient presents with a chief complaint of: chest pain I have performed a brief in-person evaluation of this patient. Pertinent physical exam findings: vss I have ordered the following: ekg. labs The patient will proceed to the ED for further evaluation.
[2017-11-21 18:12] VITALS: BP 128/50; PULSE 73; TEMP 99.1; BMI 29.2
[2017-11-21] MEDS ORDERED: ACETAMINOPHEN 325 MG TABLET (FP) PO ONE (18:12)
[2017-11-21] MEDS ORDERED: ACETAMINOPHEN 325 MG TABLET (FP) ONE (19:32)
[2017-11-21 19:46] LABS: BASO % 0.5 % (0-2.0); EOS % 3.1 % (0-4.5); HEMATOCRIT 32.4 % (32.4-45.2); HEMOGLOBIN 10.3 GM/dL (10.7-15.3); LYMPH % 27.1 % (8-40); MCH 23.8 pg (25.7-33.7); MCHC 31.7 g/dl (32.0-36.0); MEAN CELL VOLUME 75.1 fl (80-96); MEAN PLT VOLUME 7.3 fl (7.5-11.1); NEUT % 55.3 % (42.8-82.8); PLATELET COUNT 321 K/MM3 (134-434); RBC 4.32 M/mm3 (3.60-5.2); RDW 20.2 % (11.6-15.6); WHITE BLOOD COUNT 4.6 K/mm3 (4.0-10.0)
[2017-11-21 20:10] LABS: INR 0.94 (0.83-1.09); PROTHROMBIN TIME (PATIENT) 11.1 SEC (9.7-13.0)
[2017-11-21 20:13] LABS: ALBUMIN 3.2 g/dl (3.4-5.0); ALK PHOS 174 U/L (45-117); ANION GAP 6 MMOL/L (8-16); BILIRUBIN,TOTAL 0.2 mg/dL (0.2-1); BLOOD UREA NITROGEN 13 mg/dL (7-18); CALCIUM 8.7 mg/dL (8.5-10.1); CHLORIDE 102 mmol/L (98-107); CO2 25 mmol/L (21-32); CREATININE 0.6 mg/dL (0.55-1.3); GLUCOSE,RANDOM 104 mg/dL (74-106); POTASSIUM 4.6 mmol/L (3.5-5.1); SGOT/AST 17 U/L (15-37); SGPT/ALT 26 U/L (13-61); SODIUM 132 mmol/L (136-145); TOT PROT 6.9 g/dl (6.4-8.2)
--- NOTE | 2017-11-21 21:11 | PDOC ---
History of Present Illness - General Chief Complaint: Chest Pain Stated Complaint: CHEST PAIN Time Seen by Provider: 11/21/17 18:10 History Source: Patient - History of Present Illness Initial Comments: 11/21/17 21:13 72 year old year female c/o chest pain and headache worse with palpation., denies NVD, abdominal pain, diaphoresis, dizziness Past History - Past Medical History Allergies/Adverse Reactions: Allergies Allergy/AdvReac Type Severity Reaction Status Date / Time aspirin Allergy Severe "NERVOUS" Verified 11/21/17 18:09 morphine Allergy Severe "ANXIETY-DE Verified 11/21/17 18:09 SPERATION" Home Medications: Ambulatory Orders Escitalopram Oxalate [Lexapro -] 10 mg PO DAILY 03/10/16 Amlodipine Besylate 5 mg PO DAILY 11/06/17 Betamethasone/Propylene Glyc [Betamethasone Dp Aug 0.05% Crm] 0.05 applic TP BID 11/06/17 Divalproex Sodium [Depakote] 500 mg PO BID 11/06/17 Famotidine 20 mg PO BID 11/06/17 Cefpodoxime Proxetil [Vantin -] 100 mg PO BID #14 tablet 11/07/17 Docusate Sodium [Colace] 100 mg PO BID #1 capsule 11/07/17 Ferrous Sulfate [Feosol] 325 mg PO BID #60 tablet 11/07/17 Lisinopril [Prinivil] 5 mg PO DAILY #30 tablet 11/07/17 Anemia: Yes Asthma: No Cancer: No Cardiac Disorders: Yes (Chest pain) 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, baseline confusion and dizziness) COPD: Yes CHF: No DVT: No Dementia: No Diabetes: Yes GI Disorders: Yes (gerd, gastric ulcer, dysphagia) Disorders: Yes (kidney stone in the past) HTN: Yes Hypercholesterolemia: Yes Liver Disease: No Psychiatric Problems: Yes (ANXIETY DEPRESSION) Seizures: Yes (S/P craniotomy for benign tumor - on Depakote for seizure prophylaxis) Thyroid Disease: No - Surgical History Abdominal Surgery: Yes Appendectomy: No Cardiac Surgery: No Cholecystectomy: Yes Lung Surgery: No Neurologic Surgery: Yes (removal left meningioma, craniotomy) Orthopedic Surgery: Yes (bilat knee replacement) - Immunization History Td Vaccination: Yes TDAP Vaccination: No Immunization Up to Date: No - Suicide/Smoking/Psychosocial Hx Smoking Status: No Smoking History: Never smoked Have you smoked in the past 12 months: No Number of Cigarettes Smoked Daily: 0 Cigars Per Day: 0 Hx Alcohol Use: No Drug/Substance Use Hx: No Substance Use Type: None Hx Substance Use Treatment: No Cardiac Specific PMH - Complaint Specific PMHX Pacemaker: No Review of Systems - Review of Systems Able to Perform ROS?: Yes Is the patient limited Lithuanian proficient: No Constitutional: No: Symptoms Reported, See HPI, Chills, Diaphoresis, Fever, Loss of Appetite, Malaise, Night Sweats, Weakness, Weight Stable, Unintentional Wgt. Loss, Unexplained wgt Loss, Other Cardiac (ROS): Yes: Chest Pain. No: Symptoms Reported, See HPI, Edema, Irregular Heart Rate, Lightheadedness, Palpitations, Syncope, Chest Tightness, Other Neurological: Yes: Headache. No: Symptoms reported, See HPI, Numbness, Paresthesia, Pre-Existing Deficit, Seizure, Tingling, Tremors, Weakness, Unsteady Gait, Ataxia, Dizziness, Other *Physical Exam - Vital Signs Last Vital Signs Temp Pulse Resp BP Pulse Ox 99.1 F 73 18 128/50 L 97 11/21/17 17:40 11/21/17 17:40 11/21/17 17:40 11/21/17 17:40 11/21/17 17:40 - Physical Exam General Appearance: Yes: Appropriately Dressed Respiratory/Chest: positive: Lungs Clear, Normal Breath Sounds Cardiovascular: positive: Regular Rhythm, Regular Rate Heart Score/ECG Review - History History: Slightly suspicious - Electrocardiogram EKG: Normal - Age Age: >/= 65 - Risk Factors Risk Factors Heart Score: Yes Hx Hypercholesterolemia, Yes Hx Hypertension Based on the list above the patient has:: 1-2 risk factors - Troponin Troponin: </= normal limit - Score Heart Score - Total: 3 - ECG Intrepretation Rhythm: Regular Rhythm Comment:: 11/21/17 21:15 NSR: 68bpm ED Treatment Course - LABORATORY CBC & Chemistry Diagram: 11/21/17 19:40 11/21/17 19:40 - ADDITIONAL ORDERS Additional order review: Laboratory Results 11/21/17 11/21/17 19:40 19:40 PT with INR 11.10 INR 0.94 Sodium 132 L Potassium 4.6 Chloride 102 Carbon Dioxide 25 Anion Gap 6 L BUN 13 Creatinine 0.6 Creat Clearance w eGFR > 60 Random Glucose 104 Calcium 8.7 Total Bilirubin 0.2 AST 17 ALT 26 Alkaline Phosphatase 174 H Creatine Kinase 38 Troponin I < 0.02 Total Protein 6.9 Albumin 3.2 L 11/21/17 19:40 RBC 4.32 MCV 75.1 L MCHC 31.7 L RDW 20.2 H MPV 7.3 L Neutrophils % 55.3 Lymphocytes % 27.1 Monocytes % 14.0 H Eosinophils % 3.1 Basophils % 0.5 - Medications Given in the ED: ED Medications Discontinued Medications Generic Name Dose Route Start Last Admin Trade Name Freq PRN Reason Stop Dose Admin Acetaminophen 650 mg 11/21/17 18:12 11/21/17 19:34 Tylenol - PO 11/21/17 18:13 650 mg ONCE ONE Administration *DC/Admit/Observation/Transfer Diagnosis at time of Disposition: Atypical chest pain - Discharge Dispostion Disposition: HOME - Referrals Referrals: Waldo Mabry MD [Primary Care Provider] - - Patient Instructions Printed Discharge Instructions: DI for Atypical Chest Pain Additional Instructions: please follow up with your department administrator and your primary doctor Additional Instructions: * Please call your personal physician to report your Emergency Department visit and to report your progress, if any. * If there is no improvement in symptoms in 2 days call your physician. * Return to the Emergency Department for any worsening symptoms. - Post Discharge Activity
--- NOTE | 2017-11-24 10:11 | EKG ---
Test Reason : Blood Pressure : / mmHG Vent. Rate : 068 BPM Atrial Rate : 068 BPM P-R Int : 150 ms QRS Dur : 080 ms QT Int : 410 ms P-R-T Axes : 015 -06 024 degrees QTc Int : 435 ms NORMAL SINUS RHYTHM WHEN COMPARED WITH ECG OF 17-NOV-2017 20:07, NO SIGNIFICANT CHANGE WAS FOUND Confirmed by LARA SARMIENTO MD ([id number]) on 11/24/2017 10:11:14 AM Referred By: Confirmed By:LARA SARMIENTO MD
== END 2017-11-21 21:35 | disposition home or self-care (01) ==
LOC: JER 17:33
DX: R07.89 Other chest pain (principal); D64.9 Anemia, unspecified; I10 Essential (primary) hypertension; E11.9 Type 2 diabetes mellitus without complications; E78.5 Hyperlipidemia, unspecified; F41.8 Other specified anxiety disorders; Z96.653 Presence of artificial knee joint, bilateral; I69.819 Unspecified symptoms and signs involving cognitive functions following other cerebrovascular disease; I69.893 Ataxia following other cerebrovascular disease; Z86.011 Personal history of benign neoplasm of the brain
CPT/HCPCS: 36415; 80053; 82550; 84484; 85025; 85610; 93005; 93010; 99282-25

== ENCOUNTER 2017-11-22 18:14 | Emergency (ER) | payer OTHER ==
[2017-11-22 18:29] VITALS: BMI 36.8
--- NOTE | 2017-11-22 18:31 | PDOC ---
Rapid Medical Evaluation Time Seen by Provider: 11/22/17 18:25 Medical Evaluation: Allergies Allergy/AdvReac Type Severity Reaction Status Date / Time aspirin Allergy Severe "NERVOUS" Verified 11/21/17 18:09 morphine Allergy Severe "ANXIETY-DE Verified 11/21/17 18:09 SPERATION" 11/22/17 18:26 pt c/o: headache and chest pain , unrelieved w/ tylenol, but did not take any today since she states she knew she would get it here at [facility] when she came , denies fever, visual changes, nausea pt on brief exam: no reproducible pain, vss pt ordered for: ekg pt to proceed to the ED Discharge Disposition - Diagnosis Chest pain - Referrals - Patient Instructions - Post Discharge Activity
[2017-11-22] MEDS ORDERED: ACETAMINOPHEN 325 MG TABLET (FP) PO ONE (20:48)
--- NOTE | 2017-11-22 20:48 | PDOC ---
History of Present Illness - General Chief Complaint: Chest Pain Stated Complaint: PAIN Time Seen by Provider: 11/22/17 18:25 History Source: Patient - History of Present Illness Initial Comments: 11/22/17 22:20 72 year old female with c/o chest pain worse with palpation, pointing to left breast. no respiratory distress, chest pain Past History - Past Medical History Allergies/Adverse Reactions: Allergies Allergy/AdvReac Type Severity Reaction Status Date / Time aspirin Allergy Severe "NERVOUS" Verified 11/22/17 18:29 morphine Allergy Severe "ANXIETY-DE Verified 11/22/17 18:29 SPERATION" Home Medications: Ambulatory Orders Escitalopram Oxalate [Lexapro -] 10 mg PO DAILY 03/10/16 Amlodipine Besylate 5 mg PO DAILY 11/06/17 Betamethasone/Propylene Glyc [Betamethasone Dp Aug 0.05% Crm] 0.05 applic TP BID 11/06/17 Divalproex Sodium [Depakote] 500 mg PO BID 11/06/17 Famotidine 20 mg PO BID 11/06/17 Cefpodoxime Proxetil [Vantin -] 100 mg PO BID #14 tablet 11/07/17 Docusate Sodium [Colace] 100 mg PO BID #1 capsule 11/07/17 Ferrous Sulfate [Feosol] 325 mg PO BID #60 tablet 11/07/17 Lisinopril [Prinivil] 5 mg PO DAILY #30 tablet 11/07/17 Anemia: Yes Asthma: No Cancer: No Cardiac Disorders: Yes (Chest pain) 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, baseline confusion and dizziness) COPD: Yes CHF: No DVT: No Dementia: No Diabetes: Yes GI Disorders: Yes (gerd, gastric ulcer, dysphagia) Disorders: Yes (kidney stone in the past) HTN: Yes Hypercholesterolemia: Yes Liver Disease: No Psychiatric Problems: Yes (ANXIETY DEPRESSION) Seizures: Yes (S/P craniotomy for benign tumor - on Depakote for seizure prophylaxis) Thyroid Disease: No - Surgical History Abdominal Surgery: Yes Appendectomy: No Cardiac Surgery: No Cholecystectomy: Yes Lung Surgery: No Neurologic Surgery: Yes (removal left meningioma, craniotomy) Orthopedic Surgery: Yes (bilat knee replacement) - Immunization History Td Vaccination: Yes TDAP Vaccination: No Immunization Up to Date: No - Suicide/Smoking/Psychosocial Hx Smoking Status: No Smoking History: Never smoked Have you smoked in the past 12 months: No Number of Cigarettes Smoked Daily: 0 Cigars Per Day: 0 Information on smoking cessation initiated: No Hx Alcohol Use: No Drug/Substance Use Hx: No Substance Use Type: None Hx Substance Use Treatment: No *Physical Exam - Vital Signs Last Vital Signs Temp Pulse Resp BP Pulse Ox 99.2 F 83 16 118/54 L 96 11/22/17 18:27 11/22/17 18:27 11/22/17 18:27 11/22/17 18:27 11/22/17 18:27 - Physical Exam General Appearance: Yes: Appropriately Dressed Respiratory/Chest: positive: Chest Tender (left chest) *DC/Admit/Observation/Transfer Diagnosis at time of Disposition: Chest pain Qualifiers: Chest pain type: unspecified Qualified Code(s): R07.9 - Chest pain, unspecified - Discharge Dispostion Disposition: HOME - Referrals Referrals: Waldo Mabry MD [Primary Care Provider] - Call tomorrow - Patient Instructions Printed Discharge Instructions: DI for Chest Pain Additional Instructions: please take tylenol every 6 hours as needed for pain. follow up with your doctor as soon as possible. - Post Discharge Activity Forms/Work/School Notes: Back to Work
[2017-11-22] MEDS ORDERED: ACETAMINOPHEN 325 MG TABLET (FP) ONE (21:37)
[2017-11-22 22:09] VITALS: BP 114/78; PULSE 78; TEMP 98
[2017-11-22] MEDS ORDERED: IBUPROFEN 400 MG TABLET (FP) PO ONE ×2 (22:28→22:33)
--- NOTE | 2017-11-23 12:09 | EKG ---
Test Reason : Blood Pressure : / mmHG Vent. Rate : 063 BPM Atrial Rate : 063 BPM P-R Int : 172 ms QRS Dur : 084 ms QT Int : 416 ms P-R-T Axes : 041 -01 020 degrees QTc Int : 425 ms NORMAL SINUS RHYTHM NORMAL ECG WHEN COMPARED WITH ECG OF 17-NOV-2017 20:07, NO SIGNIFICANT CHANGE WAS FOUND Confirmed by TERENCE GARCIA MD ([id number]) on 11/23/2017 12:08:52 PM Referred By: Confirmed By:TERENCE GARCIA MD
== END 2017-11-22 23:50 | disposition home or self-care (01) ==
LOC: JER 18:14
DX: R07.9 Chest pain, unspecified (principal); J44.9 Chronic obstructive pulmonary disease, unspecified; E11.9 Type 2 diabetes mellitus without complications; I10 Essential (primary) hypertension; E78.00 Pure hypercholesterolemia, unspecified; F41.8 Other specified anxiety disorders
CPT/HCPCS: 93005; 93010; 99283-25

== ENCOUNTER 2017-11-26 17:22 | Emergency (ER) | payer OTHER ==
[2017-11-26 17:35] VITALS: BP 139/56; PULSE 88; TEMP 97; BMI 35.6
--- NOTE | 2017-11-26 18:25 | PDOC ---
History of Present Illness - General Chief Complaint: Chest Pain Stated Complaint: CHEST PAIN Time Seen by Provider: 11/26/17 18:05 History Source: Patient Exam Limitations: No Limitations - History of Present Illness Initial Comments: CHIEF COMPLAINT: 72 y/o afebrile female with PMH of COPD, HTN, HLD and DM c/o chest pain today. HISTORY OF PRESENT ILLNESS: The patient is well known to this ER for frequent visits for the same complaint. She denies f/c, cough, SOB, dizziness, n/v/d, LOC. PMD is Dr. Mabry Vital signs on arrival are notable for BP of 139/56 REVIEW OF SYSTEMS: GENERAL/CONSTITUTIONAL: No fever/chills. No weakness. No weight change. HEAD, EYES, EARS, NOSE AND THROAT: No change in vision. No ear pain or discharge. No sore throat. CARDIOVASCULAR: +chest pain. No shortness of breath. RESPIRATORY: No cough, wheezing, or hemoptysis. GASTROINTESTINAL: No nausea, vomiting, diarrhea. GENITOURINARY: No dysuria, frequency, or change in urination. MUSCULOSKELETAL: No joint or muscle swelling or pain. No neck or back pain. SKIN: No rash or easy bruising. NEUROLOGIC: No headache, vertigo, loss of consciousness, or loss of sensation. PHYSICAL EXAM: GENERAL: The patient is awake, alert, and fully oriented, in no acute distress. HEAD: Normal with no signs of trauma. ENT: Pupils equal, round and reactive to light, extraocular movements intact, sclera anicteric, conjunctiva clear. Neck supple. LUNGS: Clear to auscultation bilaterally. Normal excursion. No respiratory distress or use of accessory muscles. CV: RRR, S1/S2, no MRG. Cap refill < 2 sec. CHEST WALL: Reproducible anterior left sided chest wall pain with palpation ABDOMEN: Soft, non-distended, non-tender even to deep palpation, no hepatomegaly or splenomegaly, no masses. EXTREMITIES: Normal range of motion, no edema. NEUROLOGICAL: Normal speech, normal gait. CN II-XII grossly intact. PSYCH: Normal mood, normal affect. SKIN: Warm, dry, normal turgor, no rashes or lesions noted. Past History - Past Medical History Allergies/Adverse Reactions: Allergies Allergy/AdvReac Type Severity Reaction Status Date / Time aspirin Allergy Severe "NERVOUS" Verified 11/26/17 17:35 morphine Allergy Severe "ANXIETY-DE Verified 11/26/17 17:35 SPERATION" Home Medications: Ambulatory Orders Escitalopram Oxalate [Lexapro -] 10 mg PO DAILY 03/10/16 Amlodipine Besylate 5 mg PO DAILY 11/06/17 Betamethasone/Propylene Glyc [Betamethasone Dp Aug 0.05% Crm] 0.05 applic TP BID 11/06/17 Divalproex Sodium [Depakote] 500 mg PO BID 11/06/17 Famotidine 20 mg PO BID 11/06/17 Cefpodoxime Proxetil [Vantin -] 100 mg PO BID #14 tablet 11/07/17 Docusate Sodium [Colace] 100 mg PO BID #1 capsule 11/07/17 Ferrous Sulfate [Feosol] 325 mg PO BID #60 tablet 11/07/17 Lisinopril [Prinivil] 5 mg PO DAILY #30 tablet 11/07/17 Anemia: Yes Asthma: No Cancer: No Cardiac Disorders: Yes (Chest pain) 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, baseline confusion and dizziness) COPD: Yes CHF: No DVT: No Dementia: No Diabetes: Yes GI Disorders: Yes (gerd, gastric ulcer, dysphagia) Disorders: Yes (kidney stone in the past) HTN: Yes Hypercholesterolemia: Yes Liver Disease: No Psychiatric Problems: Yes (ANXIETY DEPRESSION) Seizures: Yes (S/P craniotomy for benign tumor - on Depakote for seizure prophylaxis) Thyroid Disease: No - Surgical History Abdominal Surgery: Yes Appendectomy: No Cardiac Surgery: No Cholecystectomy: Yes Lung Surgery: No Neurologic Surgery: Yes (removal left meningioma, craniotomy) Orthopedic Surgery: Yes (bilat knee replacement) - Immunization History Td Vaccination: Yes TDAP Vaccination: No Immunization Up to Date: No - Suicide/Smoking/Psychosocial Hx Smoking Status: No Smoking History: Never smoked Have you smoked in the past 12 months: No Number of Cigarettes Smoked Daily: 0 Cigars Per Day: 0 Hx Alcohol Use: No Drug/Substance Use Hx: No Substance Use Type: None Hx Substance Use Treatment: No Cardiac Specific PMH - Complaint Specific PMHX Pacemaker: No *Physical Exam - Vital Signs Last Vital Signs Temp Pulse Resp BP Pulse Ox 97 F L 88 18 139/56 L 99 11/26/17 17:32 11/26/17 17:32 10/14/18 17:32 11/26/17 17:32 11/26/17 17:32 Heart Score/ECG Review - ECG Intrepretation Comment:: Twelve-lead EKG was performed and reviewed by Dr. Peralta. There is normal sinus rhythm with a normal rate and PACs. The axis is normal. The intervals are normal. There are no ST or T wave abnormalities. Impression: Otherwise normal twelve-lead EKG Medical Decision Making - Medical Decision Making A/P: 72 y/o female with c/o chest pain. Patient is seen here almost daily for the same complaint. She was noted to have low sodium on a prior visit so plan is as follows: 1. EKG 2. Cardiac enzymes 3. CMP I am signing this patient out to my colleague: LARA Pereyra In brief, this patient is being seen in the ED for a chief complaint of: chest pain I have completed the initial assessment interview note and have ordered: EKG, CMP, Cardiac profile I have reviewed the following results: none Pending results are: all Please call the PCP: Clotilde Plan for disposition is as follows: Most likely discharge pending normal labs *DC/Admit/Observation/Transfer Diagnosis at time of Disposition: Chest pain - Referrals Referrals: Waldo Mabry MD [Primary Care Provider] - - Patient Instructions - Post Discharge Activity
[2017-11-26 19:31] LABS: ALBUMIN 3.1 g/dl (3.4-5.0); ALK PHOS 197 U/L (45-117); ANION GAP 7 MMOL/L (8-16); BILIRUBIN,TOTAL 0.2 mg/dL (0.2-1); BLOOD UREA NITROGEN 18 mg/dL (7-18); CALCIUM 8.7 mg/dL (8.5-10.1); CHLORIDE 102 mmol/L (98-107); CO2 27 mmol/L (21-32); CREATININE 0.6 mg/dL (0.55-1.3); GLUCOSE,RANDOM 122 mg/dL (74-106); POTASSIUM 5.1 mmol/L (3.5-5.1); SGOT/AST 21 U/L (15-37); SGPT/ALT 28 U/L (13-61); SODIUM 136 mmol/L (136-145); TOT PROT 6.8 g/dl (6.4-8.2)
[2017-11-26] MEDS ORDERED: ACETAMINOPHEN 325 MG TABLET (FP) PO ONE (20:42)
--- NOTE | 2017-11-26 20:43 | PDOC ---
*Physical Exam - Vital Signs Last Vital Signs Temp Pulse Resp BP Pulse Ox 97 F L 88 18 139/56 L 99 11/26/17 17:32 11/26/17 17:32 11/26/17 17:32 11/26/17 17:32 11/26/17 17:32 ED Treatment Course - LABORATORY CBC & Chemistry Diagram: 11/26/17 18:55 - ADDITIONAL ORDERS Additional order review: Laboratory Results 11/26/17 18:55 Sodium 136 Potassium 5.1 Chloride 102 Carbon Dioxide 27 Anion Gap 7 L BUN 18 Creatinine 0.6 Creat Clearance w eGFR > 60 Random Glucose 122 H Calcium 8.7 Total Bilirubin 0.2 AST 21 ALT 28 Alkaline Phosphatase 197 H Creatine Kinase 39 Troponin I < 0.02 Total Protein 6.8 Albumin 3.1 L Medical Decision Making - Medical Decision Making 11/26/17 20:40 Patient was endorsed to me by BABAK Munguia pending results of chemistry, troponin. Patient complains of headache will give her Tylenol 650 mg by mouth No acute findings on lab work will discharge patient home I discussed the physical exam findings, ancillary test results and final diagnoses with the patient. I answered all of the patient's questions. The patient was satisfied with the care received and felt comfortable with the discharge plan and treatment plan. The Patient agrees to follow up with the primary care physician within 24-72 hours. *DC/Admit/Observation/Transfer Diagnosis at time of Disposition: Chest pain Qualifiers: Chest pain type: unspecified Qualified Code(s): R07.9 - Chest pain, unspecified - Discharge Dispostion Disposition: HOME Condition at time of disposition: Stable - Referrals Referrals: Waldo Mabry MD [Primary Care Provider] - - Patient Instructions Printed Discharge Instructions: DI for Atypical Chest Pain Additional Instructions: Your Discharge Instructions: You must call primary care physician within 24 hours to arrange follow-up. Return to the Emergency Department with any new, persistent or worsening symptoms, for fever, chills, SOB, dizziness or any other concerning changes that may occur. - Post Discharge Activity
[2017-11-26] MEDS ORDERED: ACETAMINOPHEN 325 MG TABLET (FP) ONE (20:46)
--- NOTE | 2017-11-27 10:17 | EKG ---
Test Reason : Blood Pressure : / mmHG Vent. Rate : 078 BPM Atrial Rate : 078 BPM P-R Int : 156 ms QRS Dur : 076 ms QT Int : 388 ms P-R-T Axes : 036 000 023 degrees QTc Int : 442 ms NORMAL SINUS RHYTHM NORMAL ECG WHEN COMPARED WITH ECG OF 22-NOV-2017 22:10, NO SIGNIFICANT CHANGE WAS FOUND Confirmed by J LUIS POWELL MD ([id number]) on 11/27/2017 10:17:09 AM Referred By: Confirmed By:J LUIS POWELL MD
== END 2017-11-26 20:55 | disposition home or self-care (01) ==
LOC: JER 17:22
DX: R07.9 Chest pain, unspecified (principal); D64.9 Anemia, unspecified; J44.9 Chronic obstructive pulmonary disease, unspecified; I10 Essential (primary) hypertension; E11.9 Type 2 diabetes mellitus without complications; F41.8 Other specified anxiety disorders; Z87.19 Personal history of other diseases of the digestive system; I69.810 Attention and concentration deficit following other cerebrovascular disease; I69.893 Ataxia following other cerebrovascular disease; Z86.011 Personal history of benign neoplasm of the brain; Z96.653 Presence of artificial knee joint, bilateral; Z88.6 Allergy status to analgesic agent
CPT/HCPCS: 36415; 80053; 82550; 84484; 93005; 93010; 99283-25

== ENCOUNTER 2017-11-28 17:18 | Emergency (ER) | payer OTHER ==
[2017-11-28 19:20] VITALS: BMI 35.2
--- NOTE | 2017-11-28 19:28 | PDOC ---
*Physical Exam - Vital Signs Last Vital Signs Temp Pulse Resp BP Pulse Ox 98.1 F 84 20 102/52 L 97 11/28/17 19:16 11/28/17 19:16 11/28/17 19:16 11/28/17 19:16 11/28/17 19:16 ED Treatment Course - LABORATORY CBC & Chemistry Diagram: 11/28/17 20:34 11/28/17 20:34 Medical Decision Making - Medical Decision Making 11/28/17 19:27 Ms Sumner is well known to this ER She typically presents with chest pain Today, however she is somnolent She has a h/o ICH Will do: Labs CT ? obs Pt seen by Midlevel Provider under my direct supervision Pt interviewed and examined Ancillary studies reviewed I agree with plan as outlined by Midlevel Provider 11/28/17 21:00 11/28/17 23:31 Pt is more awake She states she took tylenol PM for her chronic musculoskeletal chest pain Which made her feel dizzy *DC/Admit/Observation/Transfer Diagnosis at time of Disposition: Altered mental status, unspecified Chest pain Qualifiers: Chest pain type: unspecified Qualified Code(s): R07.9 - Chest pain, unspecified - Referrals - Patient Instructions - Post Discharge Activity
[2017-11-28] MEDS ORDERED: SODIUM CHLORIDE 250 ML IV STA (19:34)
--- NOTE | 2017-11-28 19:36 | PDOC ---
History of Present Illness - General Chief Complaint: Chest Pain Stated Complaint: CHEST PAIN Time Seen by Provider: 11/28/17 19:24 History Source: Patient - History of Present Illness Initial Comments: 11/28/17 19:37 72 year old female c/o chest pain, dizziness and headache. patient is noted to increasingly sleepy today. patient was seen and treated in the ED on 11/26/17 . patient is well known to the ER with multiple visits to this ER for similar complaints. PMHX: COPD, HTN, HLD. craniotomy and DM Past History - Past Medical History Allergies/Adverse Reactions: Allergies Allergy/AdvReac Type Severity Reaction Status Date / Time aspirin Allergy Severe "NERVOUS" Verified 11/28/17 18:07 morphine Allergy Severe "ANXIETY-DE Verified 11/28/17 18:07 SPERATION" Home Medications: Ambulatory Orders Escitalopram Oxalate [Lexapro -] 10 mg PO DAILY 03/10/16 Amlodipine Besylate 5 mg PO DAILY 11/06/17 Betamethasone/Propylene Glyc [Betamethasone Dp Aug 0.05% Crm] 0.05 applic TP BID 11/06/17 Divalproex Sodium [Depakote] 500 mg PO BID 11/06/17 Famotidine 20 mg PO BID 11/06/17 Cefpodoxime Proxetil [Vantin -] 100 mg PO BID #14 tablet 11/07/17 Docusate Sodium [Colace] 100 mg PO BID #1 capsule 11/07/17 Ferrous Sulfate [Feosol] 325 mg PO BID #60 tablet 11/07/17 Lisinopril [Prinivil] 5 mg PO DAILY #30 tablet 11/07/17 Anemia: Yes Asthma: No Cancer: No Cardiac Disorders: Yes (Chest pain) 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, baseline confusion and dizziness) COPD: Yes CHF: No DVT: No Dementia: No Diabetes: Yes GI Disorders: Yes (gerd, gastric ulcer, dysphagia) Disorders: Yes (kidney stone in the past) HTN: Yes Hypercholesterolemia: Yes Liver Disease: No Psychiatric Problems: Yes (ANXIETY DEPRESSION) Seizures: Yes (S/P craniotomy for benign tumor - on Depakote for seizure prophylaxis) Thyroid Disease: No - Surgical History Abdominal Surgery: Yes Appendectomy: No Cardiac Surgery: No Cholecystectomy: Yes Lung Surgery: No Neurologic Surgery: Yes (removal left meningioma, craniotomy) Orthopedic Surgery: Yes (bilat knee replacement) - Immunization History Td Vaccination: Yes TDAP Vaccination: No Immunization Up to Date: No - Suicide/Smoking/Psychosocial Hx Smoking Status: No Smoking History: Unknown if ever smoked Have you smoked in the past 12 months: No Number of Cigarettes Smoked Daily: 0 Cigars Per Day: 0 Hx Alcohol Use: No Drug/Substance Use Hx: No Substance Use Type: None Hx Substance Use Treatment: No Cardiac Specific PMH - Complaint Specific PMHX Pacemaker: No Review of Systems - Review of Systems Able to Perform ROS?: Yes Is the patient limited Czech proficient: No Constitutional: No: Symptoms Reported, See HPI, Chills, Diaphoresis, Fever, Loss of Appetite, Malaise, Night Sweats, Weakness, Weight Stable, Unintentional Wgt. Loss, Unexplained wgt Loss, Other Cardiac (ROS): Yes: Chest Pain Neurological: Yes: Headache, Dizziness *Physical Exam - Vital Signs Last Vital Signs Temp Pulse Resp BP Pulse Ox 98.3 F 61 20 109/52 L 96 11/29/17 03:15 11/29/17 03:15 11/29/17 03:15 11/29/17 03:15 11/29/17 03:15 - Physical Exam General Appearance: Yes: Appropriately Dressed Respiratory/Chest: positive: Lungs Clear, Normal Breath Sounds Cardiovascular: positive: Regular Rhythm, Regular Rate Gastrointestinal/Abdominal: positive: Normal Bowel Sounds, Soft Extremity: positive: Normal Capillary Refill, Normal Inspection, Normal Range of Motion. negative: Pedal Edema Integumentary: positive: Normal Color, Dry, Warm Neurologic: positive: Alert (sleepy) ED Treatment Course - LABORATORY CBC & Chemistry Diagram: 11/28/17 20:34 11/28/17 20:34 - ADDITIONAL ORDERS Additional order review: Laboratory Results 11/28/17 11/28/17 11/28/17 20:34 20:34 20:34 PT with INR 11.30 INR 0.96 Sodium 138 Potassium 4.7 Chloride 106 Carbon Dioxide 25 Anion Gap 7 L BUN 22 H Creatinine 0.7 Creat Clearance w eGFR > 60 Random Glucose 107 H Calcium 8.9 Magnesium 2.3 Total Bilirubin 0.2 AST 21 ALT 29 Alkaline Phosphatase 194 H Creatine Kinase 58 Troponin I < 0.02 B-Natriuretic Peptide 101.5 Total Protein 6.6 Albumin 3.0 L Alcohol, Quantitative < 3.0 11/28/17 20:34 RBC 3.97 MCV 76.7 L MCHC 30.9 L RDW 19.7 H MPV 7.6 Neutrophils % 49.7 Lymphocytes % 29.7 Monocytes % 17.3 H Eosinophils % 2.9 Basophils % 0.4 - RADIOLOGY Radiology Studies Ordered: Category Date Time Status HEAD CT WITHOUT CONTRAST [CT] Stat CT Scan 11/28/17 21:00 Completed CHEST - PA [RAD] Stat Radiology 11/28/17 19:34 Completed - Medications Given in the ED: ED Medications Discontinued Medications Generic Name Dose Route Start Last Admin Trade Name Freq PRN Reason Stop Dose Admin Acetaminophen 500 mg 11/29/17 02:33 11/29/17 04:37 Tylenol - PO 11/29/17 02:34 Not Given ONCE ONE Acetaminophen 650 mg 11/29/17 04:35 11/29/17 04:37 Tylenol - PO 11/29/17 04:36 650 mg ONCE ONE Administration Sodium Chloride 250 mls @ 250 mls/hr 11/28/17 19:34 11/28/17 20:00 Normal Saline - IV 11/28/17 20:33 250 mls/hr ASDIR STA Administration Medical Decision Making - Medical Decision Making 11/28/17 20:55 A: AMS; chest pain P: cbc cmp 11/28/17 23:00 Patient is sleepy arousable.and slurring of speech. will admit 11/28/17 23:32 Patient is now awake. walking. no slurred speech. reports that she took tylenol PM tabs for chronic chest pain and felt dizzy after, 11/29/17 02:03 patient is now alert awake. walking. will d/c home. 11/29/17 05:37 patient to be d/alvin home. V/S stable. patient is in usual state of health at this time. 11/29/17 06:18 *DC/Admit/Observation/Transfer Diagnosis at time of Disposition: Chest pain Qualifiers: Chest pain type: unspecified Qualified Code(s): R07.9 - Chest pain, unspecified Altered mental status, unspecified Qualifiers: Altered mental status type: somnolence Qualified Code(s): R40.0 - Somnolence Headache Qualifiers: Headache type: tension-type Headache chronicity pattern: unspecified pattern Intractability: not intractable Qualified Code(s): G44.209 - Tension-type headache, unspecified, not intractable - Discharge Dispostion Disposition: HOME - Referrals Referrals: Waldo Mabry MD [Primary Care Provider] - Call tomorrow - Patient Instructions Printed Discharge Instructions: DI for Chest Pain - Post Discharge Activity TIA Risk Factors - ABCD Score Age: Age = or > 60 Blood Pressure: SBP < 140 and DBP < 90 Clinical Features of TIA: Speech impair w/o uni wk Duration: TIA duration = or > 60min Diabetes: Yes Total ABCD2 Score (0-7):: 5 NIH Stroke Scale - Last Known Well Date/Time & Onset Date Last Known Well: 11/26/17 Time Last Known Well: 04:00 - Initial Evaluation Level of consciousness: Alert Ask patient the month and their age: Answers both correctly Ask patient to open & close eyes; make fist and let go: Obeys both correctly Best gaze (horizontal eye movement): Normal Visual field testing: No visual field loss Facial paresis (Show teeth/raise eyebrows/close eyes tight): Normal symmetrical movement Motor Function: Left Arm: Normal Motor Function: Right Arm: Normal (extends arm 90 (or 45) degrees for 10 seconds without drift Motor Function: Left Leg: Normal (extends leg 30 degrees for 5 seconds without drift) Motor Function: Right Leg: Normal (extends leg 30 degrees for 5 seconds without drift) Limb Ataxia: No ataxia Sensory(Use pinprick test arms,legs,trunk,face/side to side): Normal Best language (Describe picture, name items, read sentences): No Aphasia Dysarthria (read several words): Mild to moderate slurring of words Extinction and Inattention: No abnormality - Total Score NIH Stroke Scale Score: 1
[2017-11-28 20:50] LABS: BASO % 0.4 % (0-2.0); EOS % 2.9 % (0-4.5); HEMATOCRIT 30.4 % (32.4-45.2); HEMOGLOBIN 9.4 GM/dL (10.7-15.3); LYMPH % 29.7 % (8-40); MCH 23.7 pg (25.7-33.7); MCHC 30.9 g/dl (32.0-36.0); MEAN CELL VOLUME 76.7 fl (80-96); MEAN PLT VOLUME 7.6 fl (7.5-11.1); MONO % 17.3 % (3.8-10.2); NEUT % 49.7 % (42.8-82.8); PLATELET COUNT 326 K/MM3 (134-434); RBC 3.97 M/mm3 (3.60-5.2); RDW 19.7 % (11.6-15.6); WHITE BLOOD COUNT 4.4 K/mm3 (4.0-10.0)
[2017-11-28 20:59] LABS: INR 0.96 (0.83-1.09); PROTHROMBIN TIME (PATIENT) 11.3 SEC (9.7-13.0)
[2017-11-28 21:22] LABS: ALK PHOS 194 U/L (45-117); ANION GAP 7 MMOL/L (8-16); BILIRUBIN,TOTAL 0.2 mg/dL (0.2-1); BLOOD UREA NITROGEN 22 mg/dL (7-18); CALCIUM 8.9 mg/dL (8.5-10.1); CHLORIDE 106 mmol/L (98-107); CO2 25 mmol/L (21-32); CREATININE 0.7 mg/dL (0.55-1.3); GLUCOSE,RANDOM 107 mg/dL (74-106); MAGNESIUM 2.3 mg/dL (1.8-2.4); POTASSIUM 4.7 mmol/L (3.5-5.1); SGOT/AST 21 U/L (15-37); SGPT/ALT 29 U/L (13-61); SODIUM 138 mmol/L (136-145); TOT PROT 6.6 g/dl (6.4-8.2)
[2017-11-28 21:23] LABS: N-TERMINAL BNP 101.5 pg/ml (5-125)
[2017-11-28] MEDS ORDERED: SODIUM CHLORIDE 1,000 ML IV SCH (22:00)
[2017-11-29] MEDS ORDERED: ACETAMINOPHEN 500 MG TABLET (FP) PO ONE (02:33)
[2017-11-29] MEDS ORDERED: ACETAMINOPHEN 325 MG TABLET (FP) ONE (04:26)
[2017-11-29] MEDS ORDERED: ACETAMINOPHEN 325 MG TABLET (FP) PO ONE (04:35)
[2017-11-29 08:02] VITALS: BP 163/73; PULSE 77; TEMP 97.9
== END 2017-11-29 07:36 | disposition home or self-care (01) ==
LOC: JER 17:18
PROC: 3E0337Z Introduction of Electrolytic and Water Balance Substance into Peripheral Vein, Percutaneous Approach (ICD-10-PCS; principal; 2017-11-28)
DX: R07.9 Chest pain, unspecified (principal); G44.209 Tension-type headache, unspecified, not intractable; R40.0 Somnolence; D64.9 Anemia, unspecified; J44.9 Chronic obstructive pulmonary disease, unspecified; I10 Essential (primary) hypertension; E78.00 Pure hypercholesterolemia, unspecified; E11.9 Type 2 diabetes mellitus without complications; F41.8 Other specified anxiety disorders; I69.819 Unspecified symptoms and signs involving cognitive functions following other cerebrovascular disease; I69.893 Ataxia following other cerebrovascular disease; Z87.19 Personal history of other diseases of the digestive system; Z86.011 Personal history of benign neoplasm of the brain; Z88.6 Allergy status to analgesic agent; Z96.653 Presence of artificial knee joint, bilateral
CPT/HCPCS: 36415; 70450-TC; 71045-TC-FY; 80053; 80307; 82550; 83735; 83880; 84484; 85025; 85610; 96360; 99283-25; J7030

== ENCOUNTER 2017-11-30 18:29 | Emergency (ER) | payer OTHER ==
[2017-11-30 20:35] VITALS: BP 151/76; PULSE 88; TEMP 98; BMI 31.2
--- NOTE | 2017-11-30 20:36 | PDOC ---
Rapid Medical Evaluation Time Seen by Provider: 11/30/17 20:32 Medical Evaluation: Allergies Allergy/AdvReac Type Severity Reaction Status Date / Time aspirin Allergy Severe "NERVOUS" Verified 11/28/17 18:07 morphine Allergy Severe "ANXIETY-DE Verified 11/28/17 18:07 SPERATION" 11/30/17 20:33 Pt presents to the ED for chest pain Exam: NAD, breathing easy, VSS Orders: EKG Pt to proceed to ED for further evaluation Discharge Disposition - Diagnosis Atypical chest pain - Referrals - Patient Instructions - Post Discharge Activity
--- NOTE | 2017-11-30 23:27 | PDOC ---
History of Present Illness - General History Source: Patient Exam Limitations: No Limitations - History of Present Illness Initial Comments: 12/01/17 00:27 Patient is a 72 year old female, well known to the ED, with a significant past medical history of COPD, HTN, HLD, Craniotomy, and DM who presents to the ED with chest pain. Patient was last seen in the ED on 11/28/17, treated for chest pain and discharged home. Patient reports midsternal chest tightness with associated left arm pain. She also reports nausea. Denies fever or chills. Denies vomiting. Denies shortness of breath. Denies any other symptoms. <Karen Barron - Last Filed: 12/01/17 00:27> - General History Source: Patient Exam Limitations: No Limitations - History of Present Illness Initial Comments: 11/30/17 23:22 72 yo F with h/o htn hld cad dm prior cva, here with c/o chest pain. pt has frequent visits for same and is well known to ed. no sob. no f/c no mod factors. pt also complains that she is hungry. 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, baseline confusion and dizziness) COPD: Yes CHF: No DVT: No Dementia: No Diabetes: Yes GI Disorders: Yes (gerd, gastric ulcer, dysphagia) Disorders: Yes (kidney stone in the past) HTN: Yes Hypercholesterolemia: Yes Liver Disease: No Psychiatric Problems: Yes (ANXIETY DEPRESSION) Seizures: Yes (S/P craniotomy for benign tumor - on Depakote for seizure prophylaxis) Thyroid Disease: No - Surgical History Abdominal Surgery: Yes Appendectomy: No Cardiac Surgery: No Cholecystectomy: Yes Lung Surgery: No Neurologic Surgery: Yes (removal left meningioma, craniotomy) Orthopedic Surgery: Yes (bilat knee replacement) - Immunization History Td Vaccination: Yes TDAP Vaccination: No Immunization Up to Date: No - Suicide/Smoking/Psychosocial Hx Smoking Status: No Smoking History: Unknown if ever smoked Have you smoked in the past 12 months: No Number of Cigarettes Smoked Daily: 0 Cigars Per Day: 0 Hx Alcohol Use: No Drug/Substance Use Hx: No Substance Use Type: None Hx Substance Use Treatment: No <MaliahildaBerta - Last Filed: 12/01/17 00:49> - Past Medical History Allergies/Adverse Reactions: Allergies Allergy/AdvReac Type Severity Reaction Status Date / Time aspirin Allergy Severe "NERVOUS" Verified 11/30/17 20:36 morphine Allergy Severe "ANXIETY-DE Verified 11/30/17 20:36 SPERATION" Home Medications: Ambulatory Orders Escitalopram Oxalate [Lexapro -] 10 mg PO DAILY 03/10/16 Amlodipine Besylate 5 mg PO DAILY 11/06/17 Betamethasone/Propylene Glyc [Betamethasone Dp Aug 0.05% Crm] 0.05 applic TP BID 11/06/17 Divalproex Sodium [Depakote] 500 mg PO BID 11/06/17 Famotidine 20 mg PO BID 11/06/17 Cefpodoxime Proxetil [Vantin -] 100 mg PO BID #14 tablet 11/07/17 Docusate Sodium [Colace] 100 mg PO BID #1 capsule 11/07/17 Ferrous Sulfate [Feosol] 325 mg PO BID #60 tablet 11/07/17 Lisinopril [Prinivil] 5 mg PO DAILY #30 tablet 11/07/17 Review of Systems - Review of Systems Able to Perform ROS?: Yes Comments:: 12/01/17 00:27 GENERAL/CONSTITUTIONAL: No fever or chills. No weakness. HEAD, EYES, EARS, NOSE AND THROAT: No change in vision. No ear pain or discharge. No sore throat. CARDIOVASCULAR: + chest pain. No chest pain or shortness of breath. RESPIRATORY: No cough, wheezing, or hemoptysis. GASTROINTESTINAL: No nausea, vomiting, diarrhea or constipation. GENITOURINARY: No dysuria, frequency, or change in urination. MUSCULOSKELETAL: No joint or muscle swelling or pain. No neck or back pain. SKIN: No rash NEUROLOGIC: + headache. No vertigo, loss of consciousness, or change in strength /sensation. ENDOCRINE: No increased thirst. No abnormal weight change. HEMATOLOGIC/LYMPHATIC: No anemia, easy bleeding, or history of blood clots. ALLERGIC/IMMUNOLOGIC: No hives or skin allergy. All Other Systems: Reviewed and Negative <Karen Barron - Last Filed: 12/01/17 00:27> - Review of Systems Constitutional: No: See HPI, Chills, Diaphoresis HEENTM: No: See HPI, Eye Pain, Blurred Vision Respiratory: No: See HPI, Cough Cardiac (ROS): Yes: Chest Pain. No: See HPI ABD/GI: No: See HPI, Abdominal Distended : No: See HPI, Burning Musculoskeletal: No: See HPI, Back Pain Integumentary: No: See HPI, Bruising All Other Systems: Reviewed and Negative <Berta Hendricks - Last Filed: 12/01/17 00:49> *Physical Exam - Vital Signs Last Vital Signs Temp Pulse Resp BP Pulse Ox 98 F 88 18 151/76 98 11/30/17 20:32 11/30/17 20:32 11/30/17 20:32 11/30/17 20:32 11/30/17 20:32 - Physical Exam Comments: 12/01/17 00:28 GENERAL: Awake, alert, and fully oriented, in no acute distress HEAD: No signs of trauma EYES: PERRLA, EOMI, sclera anicteric, conjunctiva clear ENT: Auricles normal inspection, hearing grossly normal, nares patent, oropharynx clear without exudates. Moist mucosa NECK: Normal ROM, supple, no lymphadenopathy, JVD, or masses LUNGS: Breath sounds equal, clear to auscultation bilaterally. No wheezes, and no crackles HEART: + reproducible chest pain. Regular rate and rhythm, normal S1 and S2, no murmurs, rubs or gallops ABDOMEN: Soft, nontender, normoactive bowel sounds. No guarding, no rebound. No masses EXTREMITIES: Normal range of motion, no edema. No clubbing or cyanosis. No cords, erythema, or tenderness NEUROLOGICAL: Cranial nerves II through XII grossly intact. Normal speech, normal gait SKIN: Warm, Dry, normal turgor, no rashes or lesions noted. <Karen Barron - Last Filed: 12/01/17 00:27> - Vital Signs Last Vital Signs Temp Pulse Resp BP Pulse Ox 98 F 88 18 151/76 98 11/30/17 20:32 11/30/17 20:32 11/30/17 20:32 11/30/17 20:32 11/30/17 20:32 - Physical Exam Comments: 11/30/17 23:25 awake alert lungs clear bilaterally heart rrr abd soft nt nd. ext wwp no edema. no calf tenderness. <Berta Hendricks - Last Filed: 12/01/17 00:49> Heart Score/ECG Review #1 General ECG Interpretation: Sinus Rhythm, Normal Rate, Normal Intervals, No acute ischemic changes <Berta Hendricks - Last Filed: 12/01/17 00:49> ED Treatment Course - LABORATORY CBC & Chemistry Diagram: 11/30/17 23:20 11/30/17 23:20 - ADDITIONAL ORDERS Additional order review: Laboratory Results 11/30/17 23:20 Sodium 135 L Potassium 4.3 Chloride 102 Carbon Dioxide 25 Anion Gap 9 BUN 10 Creatinine 0.6 Creat Clearance w eGFR > 60 Random Glucose 121 H Calcium 8.6 Total Bilirubin 0.3 AST 43 H ALT 46 Alkaline Phosphatase 192 H Creatine Kinase 63 Troponin I < 0.02 Total Protein 7.1 Albumin 3.3 L 11/30/17 23:20 RBC 4.19 MCV 75.8 L MCHC 31.9 L RDW 19.8 H MPV 7.1 L Neutrophils % 59.1 Lymphocytes % 24.0 Monocytes % 14.1 H Eosinophils % 2.4 Basophils % 0.4 - Medications Given in the ED: ED Medications Discontinued Medications Generic Name Dose Route Start Last Admin Trade Name Freq PRN Reason Stop Dose Admin Acetaminophen 650 mg 11/30/17 23:41 12/01/17 00:26 Tylenol - PO 11/30/17 23:42 650 mg ONCE ONE Administration <Karen Barron - Last Filed: 12/01/17 00:27> - LABORATORY CBC & Chemistry Diagram: 11/30/17 23:20 11/30/17 23:20 <Berta Hendricks - Last Filed: 12/01/17 00:49> Medical Decision Making - Medical Decision Making 12/01/17 00:45 72 yo F with h/o cad, htn dm prior cva hld, here with /co chest pain. on exam pt with equistily chest wall ttp. other exam unremarkable. labs normal trop negative. ekg unremakrable. will dc home followup with fish peddler. <Berta Hendricks - Last Filed: 12/01/17 00:49> *DC/Admit/Observation/Transfer <Karen Barron - Last Filed: 12/01/17 00:27> <Berta Hendricks - Last Filed: 12/01/17 00:49> Diagnosis at time of Disposition: Atypical chest pain - Discharge Dispostion Disposition: HOME Condition at time of disposition: Improved - Referrals Referrals: Waldo Mabry MD [Primary Care Provider] - - Patient Instructions Printed Discharge Instructions: DI for Atypical Chest Pain Additional Instructions: you should follow up with your fish peddler. you should also follow up with dr. mabry. return for any problems or concerns. - Post Discharge Activity
[2017-11-30] MEDS ORDERED: ACETAMINOPHEN 325 MG TABLET (FP) PO ONE (23:41)
[2017-11-30 23:44] LABS: BASO % 0.4 % (0-2.0); EOS % 2.4 % (0-4.5); HEMATOCRIT 31.7 % (32.4-45.2); HEMOGLOBIN 10.1 GM/dL (10.7-15.3); MCH 24.2 pg (25.7-33.7); MCHC 31.9 g/dl (32.0-36.0); MEAN CELL VOLUME 75.8 fl (80-96); MEAN PLT VOLUME 7.1 fl (7.5-11.1); MONO % 14.1 % (3.8-10.2); NEUT % 59.1 % (42.8-82.8); PLATELET COUNT 362 K/MM3 (134-434); RBC 4.19 M/mm3 (3.60-5.2); RDW 19.8 % (11.6-15.6)
[2017-12-01 00:16] LABS: ALBUMIN 3.3 g/dl (3.4-5.0); ALK PHOS 192 U/L (45-117); ANION GAP 9 MMOL/L (8-16); BILIRUBIN,TOTAL 0.3 mg/dL (0.2-1); BLOOD UREA NITROGEN 10 mg/dL (7-18); CALCIUM 8.6 mg/dL (8.5-10.1); CHLORIDE 102 mmol/L (98-107); CO2 25 mmol/L (21-32); CREATININE 0.6 mg/dL (0.55-1.3); GLUCOSE,RANDOM 121 mg/dL (74-106); POTASSIUM 4.3 mmol/L (3.5-5.1); SGOT/AST 43 U/L (15-37); SGPT/ALT 46 U/L (13-61); SODIUM 135 mmol/L (136-145); TOT PROT 7.1 g/dl (6.4-8.2)
[2017-12-01] MEDS ORDERED: ACETAMINOPHEN 325 MG TABLET (FP) ONE (00:25)
== END 2017-12-01 01:31 | disposition home or self-care (01) ==
LOC: JER 18:29
DX: R07.89 Other chest pain (principal); I10 Essential (primary) hypertension; E78.00 Pure hypercholesterolemia, unspecified; E11.9 Type 2 diabetes mellitus without complications; D64.9 Anemia, unspecified; J44.9 Chronic obstructive pulmonary disease, unspecified; I69.818 Other symptoms and signs involving cognitive functions following other cerebrovascular disease; I69.898 Other sequelae of other cerebrovascular disease; Z87.19 Personal history of other diseases of the digestive system; Z87.442 Personal history of urinary calculi; F41.8 Other specified anxiety disorders; Z86.011 Personal history of benign neoplasm of the brain; Z96.653 Presence of artificial knee joint, bilateral
CPT/HCPCS: 36415; 80053; 82550; 84484; 85025; 99282-25

== ENCOUNTER 2017-12-02 14:18 | Emergency (ER) | payer OTHER ==
[2017-12-02 14:29] VITALS: TEMP 99.4; BMI 31.2
--- NOTE | 2017-12-02 14:52 | PDOC ---
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 She reports that the chest pain began yesterday evening while she was mopping. It is rated 8/10 and palpable, but not pleuritic. Denies lifting heavy objects or straining herself. She believes the pain is musculoskeletal and would like medicine for her pain. She is unsure what makes her pain better or worse. Her headache is in the frontal region. She took tylenol at home with no relief. No fever, chills, SOB, abdominal pain, nausea, or vomiting. Past History - Past Medical History Allergies/Adverse Reactions: Allergies Allergy/AdvReac Type Severity Reaction Status Date / Time aspirin Allergy Severe "NERVOUS" Verified 11/30/17 20:36 morphine Allergy Severe "ANXIETY-DE Verified 11/30/17 20:36 SPERATION" Home Medications: Ambulatory Orders Escitalopram Oxalate [Lexapro -] 10 mg PO DAILY 03/10/16 Amlodipine Besylate 5 mg PO DAILY 11/06/17 Betamethasone/Propylene Glyc [Betamethasone Dp Aug 0.05% Crm] 0.05 applic TP BID 11/06/17 Divalproex Sodium [Depakote] 500 mg PO BID 11/06/17 Famotidine 20 mg PO BID 11/06/17 Cefpodoxime Proxetil [Vantin -] 100 mg PO BID #14 tablet 11/07/17 Docusate Sodium [Colace] 100 mg PO BID #1 capsule 11/07/17 Ferrous Sulfate [Feosol] 325 mg PO BID #60 tablet 11/07/17 Lisinopril [Prinivil] 5 mg PO DAILY #30 tablet 11/07/17 Anemia: Yes Asthma: No Cancer: No Cardiac Disorders: Yes (Chest pain) 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, baseline confusion and dizziness) COPD: Yes CHF: No DVT: No Dementia: No Diabetes: Yes GI Disorders: Yes (gerd, gastric ulcer, dysphagia) Disorders: Yes (kidney stone in the past) HTN: Yes Hypercholesterolemia: Yes Liver Disease: No Psychiatric Problems: Yes (ANXIETY DEPRESSION) Seizures: Yes (S/P craniotomy for benign tumor - on Depakote for seizure prophylaxis) Thyroid Disease: No - Surgical History Abdominal Surgery: Yes Appendectomy: No Cardiac Surgery: No Cholecystectomy: Yes Lung Surgery: No Neurologic Surgery: Yes (removal left meningioma, craniotomy) Orthopedic Surgery: Yes (bilat knee replacement) - Immunization History Td Vaccination: Yes TDAP Vaccination: No Immunization Up to Date: No - Suicide/Smoking/Psychosocial Hx Smoking Status: No Smoking History: Unknown if ever smoked Have you smoked in the past 12 months: No Number of Cigarettes Smoked Daily: 0 Cigars Per Day: 0 Hx Alcohol Use: No Drug/Substance Use Hx: No Substance Use Type: None Hx Substance Use Treatment: No Review of Systems - Review of Systems Comments:: Constitutional: no fever, no chills HEENT: no throat pain, no dysphagia Cardiovascular: +chest pain, no palpitations Respiratory: no cough, no shortness of breath Gastrointestinal: no abdominal pain, no nausea, no vomiting Genitourinary: no dysuria, no frequency Musculoskeletal: no myalgia, no arthralgia Skin: no rash, no itching Neurologic: +headache, +lightheadedness *Physical Exam - Vital Signs Last Vital Signs Temp Pulse Resp BP Pulse Ox 99.4 F 90 18 136/73 100 12/02/17 14:28 12/02/17 14:28 12/02/17 14:28 12/02/17 14:28 12/02/17 14:28 - Physical Exam Comments: General: Awake, alert, and fully oriented, in no acute distress Head: no signs of trauma Eyes: EOMI, sclera anicteric ENT: Moist mucus membranes Neck: Normal ROM, supple Lungs: Lungs clear, Normal breath sounds Cardio: Regular rhythm, S1 and S2 present; chest wall is tender to palpation Abdomen: Soft, nontender. No guarding, no rebound, no masses Extremities: Normal range of motion, Distal pulses present SKIN: Warm, Dry, normal turgor Neurologic: Cranial nerves II through XII grossly intact. 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 -Labs: No anemia or leukocytosis, Tpn negative -EKG unchanged when compared to that of 11/26/17, nonischemic -CXR: no acute pathology (my impression) -Toradol 15: patient reports alleviation of headache, however, she is still reporting chest pain and repeatedly requesting to be moved from a bed in the hallway to one in a room. I explained that we do not have the space to move her. Tylenol 325 given. Patient reports feeling better and wants to go home. -Discharged. Patient amenable to plan. *DC/Admit/Observation/Transfer Diagnosis at time of Disposition: Chest pain - Discharge Dispostion Disposition: HOME Condition at time of disposition: Improved - Referrals Referrals: Waldo Mabry MD [Primary Care Provider] - - Patient Instructions Additional Instructions: You came to the ED for chest pain. Your labs and EKG were unremarkable. You can take tylenol at home for pain. Follow the instructions on the medication bottle. Follow up with your primary care doctor in the next 2-3 days. Immediate medical attention is required if: have any chest pain, palpitations, shortness of breath, severe headaches, changes in vision, focal numbness or weakness, any severe abdominal pain, any black tarry stool, or any new or concerning symptoms. If you think you are having an emergency, call for emergency medical services or present to the emergency department right away. - Post Discharge Activity
--- NOTE | 2017-12-02 15:51 | PDOC ---
Attending Attestation - Resident Resident Name: Ambika Freedman - ED Attending Attestation I have performed the following: I have examined & evaluated the patient, The case was reviewed & discussed with the resident, I agree w/resident's findings & plan, Exceptions are as noted - HPI HPI: 12/02/17 15:51 71 F with h/o HLD, DM, HTN, COPD, CVA (residual altered balance, baseline confusion and dizziness), chronic chest pain, GERD, seizures, presenting to ED with headache and chest pain. Pt states this is the same as her previous episodes. Denies SOB. Denies leg swelling. States headache is similar to her usual headaches. No thunderclap, not worst headache of life. No F/C. No neck pain. No N/V. - Physicial Exam PE: 12/02/17 15:53 "GENERAL: Awake, alert, and fully oriented, in no acute distress. HEAD: No signs of trauma EYES: PERRLA, EOMI, sclera anicteric, conjunctiva clear ENT: Auricles normal inspection, hearing grossly normal, nares patent, oropharynx clear without exudates. Moist mucosa NECK: Nontender, no stepoffs, Normal ROM, supple, no lymphadenopathy, JVD, or masses LUNGS: Breath sounds equal, clear to auscultation bilaterally. No wheezes, and no crackles HEART: Regular rate and rhythm, normal S1 and S2, no murmurs, rubs or gallops ABDOMEN: Soft, nontender, normoactive bowel sounds. No guarding, no rebound. No masses EXTREMITIES: Normal range of motion, no edema. No clubbing or cyanosis. No cords, erythema, or tenderness NEUROLOGICAL: Cranial nerves II through XII intact. 5/5 strength and sensation in all extremities, Normal speech, normal gait, normal cerebellar function SKIN: Warm, Dry, normal turgor, no rashes or lesions noted. - Medical Decision Making 12/02/17 15:53 72 F with chest pain and headache. EKG unchanged, nonischemic. Very atypical. GALLARDO is same as previous chronic headaches. - Labs, trop - CXR - motrin Labs wnl CXR clear Pt is well appearing, with normal vitals. Clinically stable for DC at this time. I discussed the physical exam findings, ancillary test results and final diagnoses with the patient. I answered all of the patient's questions. The patient was satisfied with the care received and felt comfortable with the discharge plan and treatment plan. The patient agrees to follow up with the primary care physician within 24-72 hours.
[2017-12-02] MEDS ORDERED: KETOROLAC TROMETHAMINE 15 MG/ML VIAL IM ONE (16:01)
[2017-12-02] MEDS ORDERED: KETOROLAC TROMETHAMINE 15 MG/ML VIAL ONE (16:50)
[2017-12-02 17:13] LABS: BASO % 0.5 % (0-2.0); EOS % 2.5 % (0-4.5); HEMATOCRIT 30.6 % (32.4-45.2); HEMOGLOBIN 9.7 GM/dL (10.7-15.3); LYMPH % 22.1 % (8-40); MCH 24.2 pg (25.7-33.7); MCHC 31.7 g/dl (32.0-36.0); MEAN CELL VOLUME 76.3 fl (80-96); MEAN PLT VOLUME 7.3 fl (7.5-11.1); MONO % 13.8 % (3.8-10.2); NEUT % 61.1 % (42.8-82.8); PLATELET COUNT 328 K/MM3 (134-434); RBC 4.01 M/mm3 (3.60-5.2); RDW 20.4 % (11.6-15.6); WHITE BLOOD COUNT 4.9 K/mm3 (4.0-10.0)
[2017-12-02 17:49] LABS: ALBUMIN 3.3 g/dl (3.4-5.0); ALK PHOS 203 U/L (45-117); ANION GAP 8 MMOL/L (8-16); BILIRUBIN,TOTAL 0.3 mg/dL (0.2-1); BLOOD UREA NITROGEN 14 mg/dL (7-18); CALCIUM 8.7 mg/dL (8.5-10.1); CHLORIDE 100 mmol/L (98-107); CO2 26 mmol/L (21-32); CREATININE 0.5 mg/dL (0.55-1.3); GLUCOSE,RANDOM 115 mg/dL (74-106); SGOT/AST 31 U/L (15-37); SGPT/ALT 37 U/L (13-61); SODIUM 134 mmol/L (136-145); TOT PROT 6.8 g/dl (6.4-8.2)
[2017-12-02] MEDS ORDERED: ACETAMINOPHEN 325 MG TABLET (FP) PO ONE (18:36)
[2017-12-02] MEDS ORDERED: ACETAMINOPHEN 325 MG TABLET (FP) ONE (18:45)
[2017-12-02 19:00] VITALS: BP 130/77; PULSE 78
--- NOTE | 2017-12-03 11:10 | EKG ---
Test Reason : Blood Pressure : / mmHG Vent. Rate : 085 BPM Atrial Rate : 085 BPM P-R Int : 148 ms QRS Dur : 070 ms QT Int : 364 ms P-R-T Axes : 034 -08 029 degrees QTc Int : 433 ms POOR DATA QUALITY, INTERPRETATION MAY BE ADVERSELY AFFECTED NORMAL SINUS RHYTHM ANTERIOR INFARCT , AGE UNDETERMINED ABNORMAL ECG WHEN COMPARED WITH ECG OF 26-NOV-2017 17:39, ANTERIOR INFARCT IS NOW PRESENT Confirmed by JOSE SEVILLA, TERENCE ([id number]) on 12/03/2017 11:09:45 AM Referred By: Confirmed By:TERENCE GARCIA MD
== END 2017-12-02 18:59 | disposition home or self-care (01) ==
LOC: JER 14:18
PROC: 3E0233Z Introduction of Anti-inflammatory into Muscle, Percutaneous Approach (ICD-10-PCS; principal; 2017-12-02)
DX: R07.89 Other chest pain (principal); R51 Headache; I10 Essential (primary) hypertension; E78.00 Pure hypercholesterolemia, unspecified; E11.9 Type 2 diabetes mellitus without complications; D64.9 Anemia, unspecified; I69.893 Ataxia following other cerebrovascular disease; I69.819 Unspecified symptoms and signs involving cognitive functions following other cerebrovascular disease; F41.8 Other specified anxiety disorders; K21.9 Gastro-esophageal reflux disease without esophagitis; Z87.19 Personal history of other diseases of the digestive system; Z86.011 Personal history of benign neoplasm of the brain; Z96.653 Presence of artificial knee joint, bilateral
CPT/HCPCS: 36415; 71045-TC-FY; 80053; 84484; 85025; 93005; 93010; 96372; 99283-25

== ENCOUNTER 2017-12-04 06:57 | Emergency (ER) | payer OTHER ==
[2017-12-04 07:24] VITALS: BP 135/82; PULSE 81; TEMP 98.9; BMI 31.2
--- NOTE | 2017-12-04 07:37 | PDOC ---
History of Present Illness - General Chief Complaint: Pain Stated Complaint: PAIN Time Seen by Provider: 12/04/17 07:24 History Source: Patient Exam Limitations: Language Barrier - History of Present Illness Initial Comments: 12/04/17 07:35 Pt is a 72yo f with PMH of COPD, DM, HTN, HLD CVA ( 2009 with residual altered balance), seizure disorder (s/p craniotomy), GERD well known to ED presenting with complaints of chest pain, headache and nausea. Pt says that she has been having chest pain for the last two days and does not know why she keeps having this pain. Pain is in the L side of her chest, constant, does not radiate. Tylenol helps with the pain. She denies any trauma or injury. She states that she was not doing anything in particular when the pain started. Not associated with shortness of breath. Pt is still able to ambulate. She denies abdominal pain, vomiting, diarrhea, changes in vision. PCP: Clotilde Schmitzs: PMH: see hpi PSH: craniotomy, cholecystectomy, knee replacement Social: Past History - Past Medical History Allergies/Adverse Reactions: Allergies Allergy/AdvReac Type Severity Reaction Status Date / Time aspirin Allergy Severe "NERVOUS" Verified 11/30/17 20:36 morphine Allergy Severe "ANXIETY-DE Verified 11/30/17 20:36 SPERATION" Home Medications: Ambulatory Orders Escitalopram Oxalate [Lexapro -] 10 mg PO DAILY 03/10/16 Amlodipine Besylate 5 mg PO DAILY 11/06/17 Betamethasone/Propylene Glyc [Betamethasone Dp Aug 0.05% Crm] 0.05 applic TP BID 11/06/17 Divalproex Sodium [Depakote] 500 mg PO BID 11/06/17 Famotidine 20 mg PO BID 11/06/17 Cefpodoxime Proxetil [Vantin -] 100 mg PO BID #14 tablet 11/07/17 Docusate Sodium [Colace] 100 mg PO BID #1 capsule 11/07/17 Ferrous Sulfate [Feosol] 325 mg PO BID #60 tablet 11/07/17 Lisinopril [Prinivil] 5 mg PO DAILY #30 tablet 11/07/17 Anemia: Yes Asthma: No Cancer: No Cardiac Disorders: Yes (Chest pain) 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, baseline confusion and dizziness) COPD: Yes CHF: No DVT: No Dementia: No Diabetes: Yes GI Disorders: Yes (gerd, gastric ulcer, dysphagia) Disorders: Yes (kidney stone in the past) HTN: Yes Hypercholesterolemia: Yes Liver Disease: No Psychiatric Problems: Yes (ANXIETY DEPRESSION) Seizures: Yes (S/P craniotomy for benign tumor - on Depakote for seizure prophylaxis) Thyroid Disease: No - Surgical History Abdominal Surgery: Yes Appendectomy: No Cardiac Surgery: No Cholecystectomy: Yes Lung Surgery: No Neurologic Surgery: Yes (removal left meningioma, craniotomy) Orthopedic Surgery: Yes (bilat knee replacement) - Immunization History Td Vaccination: Yes TDAP Vaccination: No Immunization Up to Date: No - Suicide/Smoking/Psychosocial Hx Smoking Status: No Smoking History: Unknown if ever smoked Have you smoked in the past 12 months: No Number of Cigarettes Smoked Daily: 0 Cigars Per Day: 0 Hx Alcohol Use: No Drug/Substance Use Hx: No Substance Use Type: None Hx Substance Use Treatment: No Review of Systems - Review of Systems Constitutional: No: Symptoms Reported HEENTM: No: Symptoms Reported Respiratory: No: Cough, Shortness of Breath Cardiac (ROS): Yes: Chest Pain. No: Lightheadedness, Palpitations, Syncope ABD/GI: Yes: Nausea. No: Constipated, Diarrhea, Vomiting, Abdominal cramping : No: Symptoms Reported Musculoskeletal: No: Symptoms Reported Neurological: Yes: Headache. No: Numbness, Paresthesia, Tingling, Tremors *Physical Exam - Vital Signs Last Vital Signs Temp Pulse Resp BP Pulse Ox 98.9 F 81 20 135/82 100 12/04/17 07:16 12/04/17 07:16 12/04/17 07:16 12/04/17 07:16 12/04/17 07:16 - Physical Exam General Appearance: Yes: Nourished, Appropriately Dressed. No: Apparent Distress HEENT: positive: EOMI, KARL, Pharynx Normal Neck: positive: Trachea midline, Supple. negative: Lymphadenopathy (L) Respiratory/Chest: positive: Lungs Clear, Normal Breath Sounds. negative: Crackles, Rales, Rhonchi, Stridor, Wheezing Cardiovascular: positive: Regular Rhythm, Regular Rate, S1, S2. negative: Edema , JVD, Murmur Vascular Pulses: Carotid (R): 2+, Carotid (L): 2+ Gastrointestinal/Abdominal: positive: Normal Bowel Sounds, Soft Musculoskeletal: positive: Other (L chest tender to palpation). negative: CVA Tenderness Extremity: positive: Normal Capillary Refill. 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 Vitals: wnl PE: L chest wall tender to palpation. Pt had xray 2 days ago. will hold off on imaging for now. EKG, trop, cbc,cmp. Will give Tylenol 975mg for pain and headache EKG: nsr, no navya or depressions. Labs: hypocalcemia and elevated alkphos. negative trop. Pt hemodynamically stable, no acute process going on, feeling better after Tylenol. Can be dc home. Pt agrees to plan. *DC/Admit/Observation/Transfer Diagnosis at time of Disposition: Chest pain Qualifiers: Chest pain type: unspecified Qualified Code(s): R07.9 - Chest pain, unspecified Headache Qualifiers: Headache type: unspecified Headache chronicity pattern: unspecified pattern Intractability: not intractable Qualified Code(s): R51 - Headache - Discharge Dispostion Disposition: HOME Condition at time of disposition: Good Decision to Admit order: No - Referrals Referrals: Waldo Mabry MD [Staff Physician] - - Patient Instructions Printed Discharge Instructions: DI for Headache, DI for Chest Pain Additional Instructions: Te vieron aqu hoy por dolor en el pecho. Todas devorah pruebas fueron normales. Le sugiero que diogo al Dr. Mabry para que pueda controlar mejor perla dolor. Contine tomando Tylenol segn las indicaciones para perla dolor. Regrese a la leah de emergencias si: el dolor empeora, tiene dificultad para respirar, pierde el conocimiento o si se presenta algn sntoma nuevo. Diana You were seen here today for chest pain. All of your tests were normal. I suggest that you see Dr. Mabry so you can have better management of your pain. continue to take Tylenol as directed for your pain. Come back to the emergency room if: pain gets worse, you have difficulty breathing, you lose consciousness or if any new concerning symptom develops. Thank you Print Language: SET[place] - Post Discharge Activity
[2017-12-04] MEDS ORDERED: ACETAMINOPHEN 500 MG TABLET (FP) PO ONE (07:46)
[2017-12-04] MEDS ORDERED: ACETAMINOPHEN 325 MG TABLET (FP) ONE (07:48)
--- NOTE | 2017-12-04 08:16 | PDOC ---
Attending Attestation - Resident Resident Name: Rossy Barrera - ED Attending Attestation I have performed the following: I have examined & evaluated the patient, The case was reviewed & discussed with the resident, I agree w/resident's findings & plan, Exceptions are as noted - HPI HPI: 12/04/17 08:14 71 F with h/o HLD, DM, HTN, COPD, CVA (residual altered balance, baseline confusion and dizziness), chronic chest pain, GERD, seizures, presenting to ED with chest pain x 2 days. Pt states this is the same as her previous episodes. Denies SOB. Denies leg swelling. Pt also complains of her usual headache. No thunderclap, not worst headache of life. No F/C. No neck pain. No N/V. - Physicial Exam PE: 12/04/17 08:15 GENERAL: Awake, alert, and fully oriented, in no acute distress. HEAD: No signs of trauma EYES: PERRLA, EOMI, sclera anicteric, conjunctiva clear ENT: Auricles normal inspection, hearing grossly normal, nares patent, oropharynx clear without exudates. Moist mucosa NECK: Nontender, no stepoffs, Normal ROM, supple, no lymphadenopathy, JVD, or masses LUNGS: Breath sounds equal, clear to auscultation bilaterally. No wheezes, and no crackles HEART: Regular rate and rhythm, normal S1 and S2, no murmurs, rubs or gallops ABDOMEN: Soft, nontender, normoactive bowel sounds. No guarding, no rebound. No masses EXTREMITIES: Normal range of motion, no edema. No clubbing or cyanosis. No cords, erythema, or tenderness NEUROLOGICAL: Cranial nerves II through XII intact. 5/5 strength and sensation in all extremities, Normal speech, normal gait, normal cerebellar function SKIN: Warm, Dry, normal turgor, no rashes or lesions noted. - Medical Decision Making 12/04/17 08:15 72 F with usual chronic chest pain and headache. Neurologically non-focal. - Labs, EKG - Tylenol
[2017-12-04 08:48] LABS: ALBUMIN 3.2 g/dl (3.4-5.0); ALK PHOS 226 U/L (45-117); ANION GAP 4 MMOL/L (8-16); BILIRUBIN,TOTAL 0.3 mg/dL (0.2-1); BLOOD UREA NITROGEN 16 mg/dL (7-18); CALCIUM 8.4 mg/dL (8.5-10.1); CHLORIDE 105 mmol/L (98-107); CO2 28 mmol/L (21-32); CREATININE 0.5 mg/dL (0.55-1.3); GLUCOSE,RANDOM 95 mg/dL (74-106); POTASSIUM 4.7 mmol/L (3.5-5.1); SGOT/AST 25 U/L (15-37); SGPT/ALT 36 U/L (13-61); SODIUM 138 mmol/L (136-145); TOT PROT 6.8 g/dl (6.4-8.2)
--- NOTE | 2017-12-04 21:25 | EKG ---
Test Reason : Blood Pressure : / mmHG Vent. Rate : 074 BPM Atrial Rate : 074 BPM P-R Int : 158 ms QRS Dur : 074 ms QT Int : 384 ms P-R-T Axes : 035 -02 013 degrees QTc Int : 426 ms NORMAL SINUS RHYTHM NORMAL ECG WHEN COMPARED WITH ECG OF 02-DEC-2017 14:31, NO SIGNIFICANT CHANGE WAS FOUND Confirmed by J LUIS POWELL MD ([id number]) on 12/04/2017 9:24:53 PM Referred By: Confirmed By:J LUIS POWELL MD
== END 2017-12-04 10:00 | disposition home or self-care (01) ==
LOC: JER 06:57
DX: R07.89 Other chest pain (principal); R51 Headache; I10 Essential (primary) hypertension; E78.5 Hyperlipidemia, unspecified; D64.9 Anemia, unspecified; J44.9 Chronic obstructive pulmonary disease, unspecified; F41.8 Other specified anxiety disorders; F32.9 Major depressive disorder, single episode, unspecified; I69.893 Ataxia following other cerebrovascular disease; I69.819 Unspecified symptoms and signs involving cognitive functions following other cerebrovascular disease; Z87.19 Personal history of other diseases of the digestive system; Z96.653 Presence of artificial knee joint, bilateral; Z86.011 Personal history of benign neoplasm of the brain
CPT/HCPCS: 36415; 80053; 82550; 84484; 93005; 93010; 99281-25

== ENCOUNTER 2017-12-05 18:54 | Emergency (ER) | payer OTHER ==
[2017-12-05 19:08] VITALS: BP 132/62; PULSE 77; TEMP 97.9; BMI 38.1
[2017-12-05] MEDS ORDERED: ACETAMINOPHEN 325 MG TABLET (FP) PO ONE ×2 (21:04→21:19)
--- NOTE | 2017-12-05 21:19 | PDOC ---
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 She describes her chest pain as constant and non radiating. She notes this is similar to her previous episodes which she was evaluated for most recently yesterday (12/04). She denies any palpitations or shortness of breath. Patient denies any recent weakness, numbness, tingling, syncope. She denies recent fevers, chills, headache or dizziness. She denies recent nausea, vomit, diarrhea or constipation. She denies recent dysuria, frequency, urgency or hematuria. Allergies: Aspirin. Morphine. Past surgical history: Craniotomy. Social history: Nonsmoker. Denies EtOH use and recreational drug use. Primary Care Physician: Dr. Mabry (Caleb Canales) Past History <Caleb Canales - Last Filed: 12/05/17 21:25> - Past Medical History Anemia: Yes Asthma: No Cancer: No Cardiac Disorders: Yes (Chest pain) 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, baseline confusion and dizziness) COPD: Yes CHF: No DVT: No Dementia: No Diabetes: Yes GI Disorders: Yes (gerd, gastric ulcer, dysphagia) Disorders: Yes (kidney stone in the past) HTN: Yes Hypercholesterolemia: Yes Liver Disease: No Psychiatric Problems: Yes (ANXIETY DEPRESSION) Seizures: Yes (S/P craniotomy for benign tumor - on Depakote for seizure prophylaxis) Thyroid Disease: No - Surgical History Abdominal Surgery: Yes Appendectomy: No Cardiac Surgery: No Cholecystectomy: Yes Lung Surgery: No Neurologic Surgery: Yes (removal left meningioma, craniotomy) Orthopedic Surgery: Yes (bilat knee replacement) - Immunization History Td Vaccination: Yes TDAP Vaccination: No Immunization Up to Date: No - Suicide/Smoking/Psychosocial Hx Smoking Status: No Smoking History: Unknown if ever smoked Have you smoked in the past 12 months: No Number of Cigarettes Smoked Daily: 0 Cigars Per Day: 0 Hx Alcohol Use: No Drug/Substance Use Hx: No Substance Use Type: None Hx Substance Use Treatment: No <Florinda Gallagher - Last Filed: 12/05/17 21:32> - Past Medical History Allergies/Adverse Reactions: Allergies Allergy/AdvReac Type Severity Reaction Status Date / Time aspirin Allergy Severe "NERVOUS" Verified 12/05/17 19:00 morphine Allergy Severe "ANXIETY-DE Verified 12/05/17 19:00 SPERATION" Home Medications: Ambulatory Orders Escitalopram Oxalate [Lexapro -] 10 mg PO DAILY 03/10/16 Amlodipine Besylate 5 mg PO DAILY 11/06/17 Betamethasone/Propylene Glyc [Betamethasone Dp Aug 0.05% Crm] 0.05 applic TP BID 11/06/17 Divalproex Sodium [Depakote] 500 mg PO BID 11/06/17 Famotidine 20 mg PO BID 11/06/17 Cefpodoxime Proxetil [Vantin -] 100 mg PO BID #14 tablet 11/07/17 Docusate Sodium [Colace] 100 mg PO BID #1 capsule 11/07/17 Ferrous Sulfate [Feosol] 325 mg PO BID #60 tablet 11/07/17 Lisinopril [Prinivil] 5 mg PO DAILY #30 tablet 11/07/17 Cardiac Specific PMH - Complaint Specific PMHX Pacemaker: No <Florinda Gallagher - Last Filed: 12/05/17 21:32> Review of Systems - Review of Systems Able to Perform ROS?: Yes All Other Systems: Reviewed and Negative <Caleb Canales - Last Filed: 12/05/17 21:25> <Florinda Gallagher - Last Filed: 12/05/17 21:32> - Review of Systems Comments:: 12/05/17 21:25 CONSTITUTIONAL: Absent: fever, no chills, no fatigue EYES: Absent: visual changes ENT: Absent: ear pain, no sore throat CARDIOVASCULAR: Present: Chest pain. Absent: no palpitations RESPIRATORY: Absent: cough, no SOB GI: Absent: abdominal pain, no nausea, no vomiting, no constipation, no diarrhea GENITOURINARY: Absent: dysuria, no frequency, no hematuria MUSKULOSKELETAL: Absent: back pain, no arthralgia, no myalgia SKIN: Absent: rash NEURO: Absent: headache (Caleb Canales) *Physical Exam <Caleb Canales - Last Filed: 12/05/17 21:25> <Florinda Gallagher - Last Filed: 12/05/17 21:32> - Vital Signs Last Vital Signs Temp Pulse Resp BP Pulse Ox 97.9 F 77 24 H 132/62 98 12/05/17 19:05 12/05/17 19:05 12/05/17 19:05 12/05/17 19:05 12/05/17 19:05 - Physical Exam Comments: 12/05/17 21:25 GENERAL: Well developed, well nourished. Awake and alert. No acute distress. HEENT: Normocephalic, atraumatic. PERRLA, EOMI. No conjunctival pallor. Sclera are non- icteric. Moist mucous membranes. Oropharynx is clear. NECK: Supple. Full ROM. No JVD. Carotid pulses 2+ and symmetric, without bruits. No thyromegaly. No lymphadenopathy. CARDIOVASCULAR: Regular rate and rhythm. No murmurs, rubs, or gallops. Distal pulses are 2+ and symmetric. PULMONARY: No evidence of respiratory distress. Lungs clear to auscultation bilaterally. No wheezing, rales or rhonchi. ABDOMINAL: Soft. Non-tender. Non-distended. No rebound or guarding. No organomegaly. Normoactive bowel sounds. MUSCULOSKELETAL Normal range of motion at all joints. No bony deformities or tenderness. No CVA tenderness. EXTREMITIES: No cyanosis. No clubbing. No edema. No calf tenderness. SKIN: Warm and dry. Normal capillary refill. No rashes. No jaundice. NEUROLOGICAL: Alert and oriented X3. appropriate. Cranial nerves 2-12 intact. No deficits to light touch and temperature in face, upper extremities and lower extremities. No motor deficits in the in face, upper extremities and lower extremities. Normoreflexic in the upper and lower extremities. Normal speech. Toes are down- going bilaterally. Gait is normal without ataxia. PSYCHIATRIC: (+)Mild anxiety Cooperative. Good eye contact. Appropriate mood and affect. (Caleb Canales) - Medications Given in the ED: ED Medications Discontinued Medications Generic Name Dose Route Start Last Admin Trade Name Chance PRN Reason Stop Dose Admin Acetaminophen 650 mg 12/05/17 21:04 12/05/17 21:22 Tylenol - PO 12/05/17 21:05 650 mg ONCE ONE Administration *DC/Admit/Observation/Transfer <Caleb Canales - Last Filed: 12/05/17 21:25> - Discharge Dispostion Decision to Admit order: No <Florinda Gallagher - Last Filed: 12/05/17 21:32> Diagnosis at time of Disposition: Atypical chest pain - Discharge Dispostion Disposition: HOME Condition at time of disposition: Good - Referrals Referrals: Waldo Mabry MD [Primary Care Provider] - - Patient Instructions Printed Discharge Instructions: DI for Atypical Chest Pain Additional Instructions: Please follow-up with your primary physician - Post Discharge Activity - Attestations Scribe Attestion: 12/05/17 21:25 Documentation prepared by Caleb Canales, acting as medical cash poster for Florinda Gallagher MD. (Caleb Canales)
[2017-12-05] MEDS ORDERED: ACETAMINOPHEN 325 MG TABLET (FP) ONE (21:21)
--- NOTE | 2017-12-07 12:17 | EKG ---
Test Reason : Blood Pressure : / mmHG Vent. Rate : 067 BPM Atrial Rate : 067 BPM P-R Int : 164 ms QRS Dur : 074 ms QT Int : 408 ms P-R-T Axes : 047 007 027 degrees QTc Int : 431 ms NORMAL SINUS RHYTHM NORMAL ECG WHEN COMPARED WITH ECG OF 04-DEC-2017 08:17, NO SIGNIFICANT CHANGE WAS FOUND Confirmed by TERENCE GARCIA MD ([id number]) on 12/07/2017 12:16:52 PM Referred By: Confirmed By:TERENCE GARCIA MD
== END 2017-12-05 22:59 | disposition home or self-care (01) ==
LOC: JER 18:54
DX: R07.89 Other chest pain (principal); D64.9 Anemia, unspecified; J44.9 Chronic obstructive pulmonary disease, unspecified; I10 Essential (primary) hypertension; E11.9 Type 2 diabetes mellitus without complications; F41.8 Other specified anxiety disorders; E78.00 Pure hypercholesterolemia, unspecified; F32.9 Major depressive disorder, single episode, unspecified; Z87.19 Personal history of other diseases of the digestive system; Z86.011 Personal history of benign neoplasm of the brain; Z96.653 Presence of artificial knee joint, bilateral; I69.893 Ataxia following other cerebrovascular disease; Z79.84 Long term (current) use of oral hypoglycemic drugs
CPT/HCPCS: 93005; 93010; 99281-25

== ENCOUNTER 2017-12-06 18:34 | Emergency (ER) | payer OTHER ==
[2017-12-06 18:41] VITALS: BP 169/69; PULSE 86; TEMP 98.9; BMI 40.3
--- NOTE | 2017-12-06 18:41 | PDOC ---
Rapid Medical Evaluation Chief Complaint: Chest Pain Time Seen by Provider: 12/06/17 18:40 Medical Evaluation: Allergies Allergy/AdvReac Type Severity Reaction Status Date / Time aspirin Allergy Severe "NERVOUS" Verified 12/05/17 19:00 morphine Allergy Severe "ANXIETY-DE Verified 12/05/17 19:00 SPERATION" Vital Signs Temp Pulse Resp BP Pulse Ox 98.9 F 86 16 169/69 98 12/06/17 18:37 12/06/17 18:37 12/06/17 18:37 12/06/17 18:37 12/06/17 18:37 12/06/17 18:40 I have performed a brief in-person evaluation of this patient. The patient presents with a chief complaint of: chest pain and headache Pertinent physical exam findings: PE is WNL. I have ordered the following: BMP, trop, ekg The patient will proceed to the ED for further evaluation. Discharge Disposition - Diagnosis Chest pain - Referrals - Patient Instructions - Post Discharge Activity
--- NOTE | 2017-12-06 19:48 | PDOC ---
Attending Attestation - [facility] 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 She describes her chest pain as constant, left sided, and non radiating. She also reports an associated headache. She notes this is similar to her previous episodes which she was evaluated for most recently yesterday (). She denies any palpitations or shortness of breath. Patient denies any recent weakness, numbness, tingling, syncope. She denies recent fevers, chills, or dizziness. She denies recent nausea, vomit, diarrhea or constipation. She denies recent dysuria, frequency, urgency or hematuria. Allergies: Aspirin. Morphine. Past surgical history: Craniotomy. Social history: Nonsmoker. Denies EtOH use and recreational drug use. Primary Care Physician: Dr. Mabry - Physicial Exam PE: 12/06/17 20:17 Constitutional: Awake, alert, oriented. No acute distress. Head: Normocephalic. Atraumatic Eyes: PERRL. EOMI. Conjunctivae are not pale. ENT: Mucous membranes are moist and intact. Posterior pharynx without exudates or erythema. Uvula midline. Neck: Supple. Full ROM. No lymphadenopathy. Cardiovascular: Regular rate. Regular rhythm. S1, S2 regular. Distal pulses are 2+ and symmetric. Pulmonary/Chest: No evidence of respiratory distress. Clear to auscultation bilaterally No wheezing, rales or rhonchi. Abdominal: Soft and non-distended. There is no tenderness. No rebound, guarding or rigidity. No organomegaly. No palpable masses. Good bowel sounds. Back: No CVA tenderness. Musculoskeletal: No edema. No cyanosis. No clubbing. Full range of motion in all extremities. Nocalf tenderness. Radial/pedal pulses are intact and 2+ bilaterally Skin: Skin is warm and dry. No petechiae. No purpura. Neurological: Alert and oriented to person, place, and time. Cranial nerves II- XII are grossly intact. Normal speech. Strength is grossly symmetric. No sensory deficits. Psychiatric: Good eye contact. Normal interaction, affect and behavior. - Medical Decision Making 12/06/17 20:17 Documentation prepared by Francine Ross, acting as medical office coordinator for Magnolia Higgins DO <Francine Ross - Last Filed: 12/06/17 20:16> - Resident Resident Name: Jeromy Collier - ED Attending Attestation I have performed the following: I have examined & evaluated the patient, The case was reviewed & discussed with the resident, I agree w/resident's findings & plan, Exceptions are as noted - Medical Decision Making 12/06/17 19:47 I, Dr. Magnolia Higgins, DO, attest that this document has been prepared under my direction and personally reviewed by me in its entirety. I further attest, that it accurately reflects all work, treatment, procedures and medical decision -making performed by me. 12/06/17 20:42 a/p: 72yo female with chronic javed and chronic L breast pain -denies cp -asking for tylenol and a turkey sandwich -pt with daily visits to the ED with same complaint -will send trop, bnp (has had recent low sodium) and ekg -tylenol and turkey sandwich -when labs are stable pt is stable for dc to home -will refer to breast surgery for outpt eval of chronic breast pain -pt will also need outpt mammogram 12/06/17 21:11 trop negative pt is stable for d/c to home <Magnolia Higgins - Last Filed: 12/06/17 21:13> *DC/Admit/Observation/Transfer - Discharge Dispostion Decision to Admit order: No <Magnolia Higgins - Last Filed: 12/06/17 21:13> Diagnosis at time of Disposition: Breast pain, left, Headache Chest pain Qualifiers: Chest pain type: unspecified Qualified Code(s): R07.9 - Chest pain, unspecified - Discharge Dispostion Disposition: HOME Condition at time of disposition: Stable - Referrals Referrals: Kory Hernadez MD [Staff Physician] - Waldo Mabry MD [Primary Care Provider] - - Patient Instructions Printed Discharge Instructions: DI for Atypical Chest Pain, DI for Breast Pain (Mastalgia) Additional Instructions: Please follow up for an outpatient mammogram. Please follow up with your PMD and with the breast surgeon for further eval of you breast pain. - Post Discharge Activity Heart Score/ECG Review - ECG Intrepretation Comment:: 12/06/17 20:42 sinus at 78, nl axis, nl interval, no acute st/t wave findings <Magnolia Higgins - Last Filed: 12/06/17 21:13>
[2017-12-06] MEDS ORDERED: IBUPROFEN 600 MG TABLET (FP) PO ONE ×2 (20:06→20:37)
--- NOTE | 2017-12-06 20:12 | PDOC ---
History of Present Illness - General Chief Complaint: Chest Pain Stated Complaint: CHEST PAIN/Headache Time Seen by Provider: 12/06/17 18:40 - History of Present Illness Initial Comments: The patient is a 72F w/ a history who presents with 2d of L sided chest pain and associated GALLARDO. The patient describes the pain as a left sided, achy pain in her left breast that does not radiate. The pain has been constant since it began. She reports that she has had the GALLARDO for the same duration of time. She describes the GALLARDO as a frontal GALLARDO that is pressure-like. The patient denies associated fevers/chills, SOB, blurry vision, abdominal pain , dysuria, blood in her stool, blood in her urine, or changes in sensation 12/06/17 20:07 Past History - Past Medical History Allergies/Adverse Reactions: Allergies Allergy/AdvReac Type Severity Reaction Status Date / Time aspirin Allergy Severe "NERVOUS" Verified 12/05/17 19:00 morphine Allergy Severe "ANXIETY-DE Verified 12/05/17 19:00 SPERATION" Home Medications: Ambulatory Orders Escitalopram Oxalate [Lexapro -] 10 mg PO DAILY 03/10/16 Amlodipine Besylate 5 mg PO DAILY 11/06/17 Betamethasone/Propylene Glyc [Betamethasone Dp Aug 0.05% Crm] 0.05 applic TP BID 11/06/17 Divalproex Sodium [Depakote] 500 mg PO BID 11/06/17 Famotidine 20 mg PO BID 11/06/17 Cefpodoxime Proxetil [Vantin -] 100 mg PO BID #14 tablet 11/07/17 Docusate Sodium [Colace] 100 mg PO BID #1 capsule 11/07/17 Ferrous Sulfate [Feosol] 325 mg PO BID #60 tablet 11/07/17 Lisinopril [Prinivil] 5 mg PO DAILY #30 tablet 11/07/17 Anemia: Yes Asthma: No Cancer: No Cardiac Disorders: Yes (Chest pain) 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, baseline confusion and dizziness) COPD: Yes CHF: No DVT: No Dementia: No Diabetes: Yes GI Disorders: Yes (gerd, gastric ulcer, dysphagia) Disorders: Yes (kidney stone in the past) HTN: Yes Hypercholesterolemia: Yes Liver Disease: No Psychiatric Problems: Yes (ANXIETY DEPRESSION) Seizures: Yes (S/P craniotomy for benign tumor - on Depakote for seizure prophylaxis) Thyroid Disease: No - Surgical History Abdominal Surgery: Yes Appendectomy: No Cardiac Surgery: No Cholecystectomy: Yes Lung Surgery: No Neurologic Surgery: Yes (removal left meningioma, craniotomy) Orthopedic Surgery: Yes (bilat knee replacement) - Immunization History Td Vaccination: Yes TDAP Vaccination: No Immunization Up to Date: No - Suicide/Smoking/Psychosocial Hx Smoking Status: No Smoking History: Never smoked Have you smoked in the past 12 months: No Number of Cigarettes Smoked Daily: 0 Cigars Per Day: 0 Information on smoking cessation initiated: No Hx Alcohol Use: No Drug/Substance Use Hx: No Substance Use Type: None Hx Substance Use Treatment: No Review of Systems - Review of Systems Able to Perform ROS?: Yes (w/ use of saxophone player) Comments:: GENERAL/CONSTITUTIONAL: No fever or chills. No weakness HEAD, EYES, EARS, NOSE AND THROAT: No change in vision. No ear pain or discharge. No sore throat CARDIOVASCULAR: +chest pain per HPI. No shortness of breath RESPIRATORY: No cough, wheezing, or hemoptysis GASTROINTESTINAL: No nausea, vomiting, diarrhea or constipation GENITOURINARY: No dysuria, frequency, or change in urination MUSCULOSKELETAL: No joint or muscle swelling or pain. No neck or back pain SKIN: No rash NEUROLOGIC: +Headache, vertigo, loss of consciousness, or change in strength/ sensation ENDOCRINE: No increased thirst. No abnormal weight change HEMATOLOGIC/LYMPHATIC: No anemia, easy bleeding, or history of blood clots ALLERGIC/IMMUNOLOGIC: No hives or skin allergy 12/06/17 20:23 Is the patient limited Maltese proficient: No *Physical Exam - Vital Signs Last Vital Signs Temp Pulse Resp BP Pulse Ox 98.9 F 86 16 169/69 98 12/06/17 18:37 12/06/17 18:37 12/06/17 18:37 12/06/17 18:37 12/06/17 18:37 - Physical Exam Comments: GENERAL: Awake, alert, and fully oriented, in no acute distress HEAD: No signs of trauma, normocephalic, atraumatic EYES: PERRL, EOMI, sclera anicteric, conjunctiva clear ENT: Hearing grossly normal, nares patent, oropharynx clear without exudates. Moist mucosa NECK: Normal ROM, supple, no lymphadenopathy LUNGS: No distress, speaks full sentences, clear to auscultation bilaterally HEART:Regular rate and rhythm, normal S1 and S2, no murmurs appreciated, peripheral pulses normal and equal bilaterally ABDOMEN: Soft, mild epigastric TTP, normoactive bowel sounds. No guarding, no rebound EXTREMITIES : Normal inspection, Normal range of motion, no edema. No clubbing or cyanosis NEUROLOGICAL: Cranial nerves II through XII grossly intact. Normal speech, normal gait, no focal sensorimotor deficits SKIN: Warm, Dry, normal turgor, no rashes or lesions noted 12/06/17 20:28 ED Treatment Course - LABORATORY CBC & Chemistry Diagram: 12/06/17 20:29 Medical Decision Making - Medical Decision Making The patient is a 72F who presents for evaluation of L breast/chest pain and GALLARDO for 2 d ED Course BMP, cardiac profile Tylenol 975mg PO once for pain 12/06/17 20:29 12/06/17 20:40 Trop I negative Lytes wnl Plan for discharge w/ PCP and breast follow up Counseled patient about importance of undergoing a mammogram Return precautions and discharge instructions given Patient verbalized understanding and is in agreement Dispo: Home 12/06/17 21:45 *DC/Admit/Observation/Transfer Diagnosis at time of Disposition: Breast pain, left Chest pain Qualifiers: Chest pain type: unspecified Qualified Code(s): R07.9 - Chest pain, unspecified Headache Qualifiers: Headache type: unspecified Headache chronicity pattern: unspecified pattern Intractability: not intractable Qualified Code(s): R51 - Headache - Discharge Dispostion Disposition: HOME Condition at time of disposition: Stable Decision to Admit order: No - Referrals Referrals: Waldo Mabry MD [Primary Care Provider] - Kory Hernadez MD [Staff Physician] - - Patient Instructions Printed Discharge Instructions: DI for Atypical Chest Pain, DI for Breast Pain (Mastalgia) Additional Instructions: Please follow up for an outpatient mammogram. Please follow up with your PMD and with the breast surgeon for further eval of you breast pain. - Post Discharge Activity
[2017-12-06] MEDS ORDERED: ACETAMINOPHEN 325 MG TABLET (FP) PO ONE (20:39)
[2017-12-06] MEDS ORDERED: ACETAMINOPHEN 325 MG TABLET (FP) ONE ×2 (20:39→21:26)
[2017-12-06 21:03] LABS: ANION GAP 5 MMOL/L (8-16); BLOOD UREA NITROGEN 17 mg/dL (7-18); CALCIUM 8.8 mg/dL (8.5-10.1); CHLORIDE 102 mmol/L (98-107); CO2 29 mmol/L (21-32); CREATININE 0.5 mg/dL (0.55-1.3); GLUCOSE,RANDOM 119 mg/dL (74-106); POTASSIUM 4.8 mmol/L (3.5-5.1); SODIUM 136 mmol/L (136-145)
--- NOTE | 2017-12-07 12:18 | EKG ---
Test Reason : Blood Pressure : / mmHG Vent. Rate : 078 BPM Atrial Rate : 078 BPM P-R Int : 158 ms QRS Dur : 074 ms QT Int : 382 ms P-R-T Axes : 039 003 034 degrees QTc Int : 435 ms NORMAL SINUS RHYTHM NORMAL ECG WHEN COMPARED WITH ECG OF 05-DEC-2017 19:05, NO SIGNIFICANT CHANGE WAS FOUND Confirmed by TERENCE GARCIA MD ([id number]) on 12/07/2017 12:18:19 PM Referred By: Confirmed By:TERENCE GARCIA MD
== END 2017-12-06 22:17 | disposition home or self-care (01) ==
LOC: JER 18:34
DX: R07.89 Other chest pain (principal); N64.4 Mastodynia; R51 Headache; D64.9 Anemia, unspecified; J44.9 Chronic obstructive pulmonary disease, unspecified; I10 Essential (primary) hypertension; E11.9 Type 2 diabetes mellitus without complications; E78.00 Pure hypercholesterolemia, unspecified; F41.8 Other specified anxiety disorders; F32.9 Major depressive disorder, single episode, unspecified; Z87.19 Personal history of other diseases of the digestive system; Z86.011 Personal history of benign neoplasm of the brain; I69.893 Ataxia following other cerebrovascular disease; I69.822 Dysarthria following other cerebrovascular disease; Z96.653 Presence of artificial knee joint, bilateral; Z88.6 Allergy status to analgesic agent
CPT/HCPCS: 36415; 80048; 82550; 84484; 93005; 93010; 99281-25

== ENCOUNTER 2017-12-08 18:52 | Emergency (ER) | payer OTHER ==
[2017-12-08 19:16] VITALS: BMI 33.2
--- NOTE | 2017-12-08 19:17 | PDOC ---
Rapid Medical Evaluation Time Seen by Provider: 12/08/17 19:15 Medical Evaluation: Allergies Allergy/AdvReac Type Severity Reaction Status Date / Time aspirin Allergy Severe "NERVOUS" Verified 12/05/17 19:00 morphine Allergy Severe "ANXIETY-DE Verified 12/05/17 19:00 SPERATION" 12/08/17 19:15 Pt presents to the ED for evaluation of chest pain Exam: RRR, lungs CTAB Orders: EKG Pt to proceed to ED for further evaluation
--- NOTE | 2017-12-08 20:28 | PDOC ---
History of Present Illness - General Chief Complaint: Chest Pain Stated Complaint: CHEST PAIN Time Seen by Provider: 12/08/17 19:15 History Source: Patient Exam Limitations: No Limitations - History of Present Illness Initial Comments: 12/08/17 21:37 PMD: Dr. Mabry Past medical history: NIDDM, HDL, COPD, CVA, seizures Allergies: Aspirin/anxiety Morphine /itch Past surgical history: Craniotomy Nonsmoker. Denies EtOH Denies recreational drug This is a 72-year-old female who is well-known to the emergency department with a significant past medical history of hypertension, NIDDM, HDL, COPD, CVA without residual, seizures who comes to the emergency department today complaining of left-sided chest pain. Pain is exacerbated on deep inspiration and alleviated at rest. Patient describes the chest pain as left sided, intermittent and nonradiating. Patient states she's had similar previous episodes. Patient states she sometimes has frontal nonradiating intermittent headaches with her chest pains but she is headache free this evening. Patient states she was resting when the chest discomfort came on 5 hours ago. Patient denies headache, dizziness, lightheadedness, nausea/vomiting, fever/chills, facial pains, neck pain/stiffness, back pains, shortness of breath, weakness, extremity numbness or tingling sensation, flank pains, abdominal pains, urinary symptoms: Frequency/urgency/hesitancy, dysuria or hematuria. Past History - Past Medical History Allergies/Adverse Reactions: Allergies Allergy/AdvReac Type Severity Reaction Status Date / Time aspirin Allergy Severe "NERVOUS" Verified 12/08/17 19:17 morphine Allergy Severe "ANXIETY-DE Verified 12/08/17 19:17 SPERATION" Home Medications: Ambulatory Orders Escitalopram Oxalate [Lexapro -] 10 mg PO DAILY 03/10/16 Amlodipine Besylate 5 mg PO DAILY 11/06/17 Betamethasone/Propylene Glyc [Betamethasone Dp Aug 0.05% Crm] 0.05 applic TP BID 11/06/17 Divalproex Sodium [Depakote] 500 mg PO BID 11/06/17 Famotidine 20 mg PO BID 11/06/17 Cefpodoxime Proxetil [Vantin -] 100 mg PO BID #14 tablet 11/07/17 Docusate Sodium [Colace] 100 mg PO BID #1 capsule 11/07/17 Ferrous Sulfate [Feosol] 325 mg PO BID #60 tablet 11/07/17 Lisinopril [Prinivil] 5 mg PO DAILY #30 tablet 11/07/17 Anemia: Yes Asthma: No Cancer: No Cardiac Disorders: Yes (Chest pain) 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, baseline confusion and dizziness) COPD: Yes CHF: No DVT: No Dementia: No Diabetes: Yes GI Disorders: Yes (gerd, gastric ulcer, dysphagia) Disorders: Yes (kidney stone in the past) HTN: Yes Hypercholesterolemia: Yes Liver Disease: No Psychiatric Problems: Yes (ANXIETY DEPRESSION) Seizures: Yes (S/P craniotomy for benign tumor - on Depakote for seizure prophylaxis) Thyroid Disease: No - Surgical History Abdominal Surgery: Yes Appendectomy: No Cardiac Surgery: No Cholecystectomy: Yes Lung Surgery: No Neurologic Surgery: Yes (removal left meningioma, craniotomy) Orthopedic Surgery: Yes (bilat knee replacement) - Immunization History Td Vaccination: Yes TDAP Vaccination: No Immunization Up to Date: No - Suicide/Smoking/Psychosocial Hx Smoking Status: No Smoking History: Never smoked Have you smoked in the past 12 months: No Number of Cigarettes Smoked Daily: 0 Cigars Per Day: 0 Hx Alcohol Use: No Drug/Substance Use Hx: No Substance Use Type: None Hx Substance Use Treatment: No Review of Systems - Review of Systems Able to Perform ROS?: Yes Comments:: 12/08/17 21:44 CONSTITUTIONAL: Absent: fever, chills, diaphoresis, generalized weakness, malaise, loss of appetite HEENT: Absent: rhinorrhea, nasal congestion, throat pain, throat swelling, difficulty swallowing, mouth swelling, ear pain, eye pain, visual Changes CARDIOVASCULAR: +left sided cp Absent: loss of consciousness, palpitations, irregular heart rate, peripheral edema RESPIRATORY: Absent: cough, shortness of breath, dyspnea with exertion, orthopnea, wheezing, stridor, hemoptysis GASTROINTESTINAL: Absent: abdominal pain, abdominal distension, nausea, vomiting, diarrhea, constipation, melena, hematochezia GENITOURINARY: Absent: dysuria, frequency, urgency, hesitancy, hematuria, flank pain, genital pain MUSCULOSKELETAL: Absent: myalgia, arthralgia, joint swelling SKIN: Absent: rash, itching, pallor HEMATOLOGIC/IMMUNOLOGIC: Absent: easy bleeding, easy bruising, lymphadenopathy, frequent infections ENDOCRINE: Absent: unexplained weight gain, unexplained weight loss, heat intolerance, cold intolerance NEUROLOGIC: Absent: headache, focal weakness or paresthesias, dizziness, unsteady gait, seizure, mental status changes, bladder or bowel incontinence PSYCHIATRIC: Absent: anxiety, depression, suicidal or homicidal ideation, hallucinations. Is the patient limited Finnish proficient: No *Physical Exam - Vital Signs Last Vital Signs Temp Pulse Resp BP Pulse Ox 98.2 F 92 H 18 139/68 96 12/08/17 19:14 12/08/17 19:14 12/08/17 19:14 12/08/17 19:14 12/08/17 19:14 - Physical Exam Comments: 12/08/17 21:45 GENERAL: Well developed, well nourished. Awake and alert. No acute distress. HEENT: Normocephalic, atraumatic. PERRLA, EOMI. No conjunctival pallor. Sclera are non- icteric. Moist mucous membranes. Oropharynx is clear. NECK: Supple. Full ROM. No JVD. Carotid pulses 2+ and symmetric, without bruits. No thyromegaly. No lymphadenopathy. CARDIOVASCULAR: Regular rate and rhythm. No murmurs, rubs, or gallops. Distal pulses are 2+ and symmetric. PULMONARY: No evidence of respiratory distress. Lungs clear to auscultation bilaterally. No wheezing, rales or rhonchi. ABDOMINAL: Soft. Non-tender. Non-distended. No rebound or guarding. No organomegaly. Normoactive bowel sounds. MUSCULOSKELETAL Normal range of motion at all joints. No bony deformities or tenderness. No CVA tenderness. EXTREMITIES: No cyanosis. No clubbing. No edema. No calf tenderness. SKIN: Warm and dry. Normal capillary refill. No rashes. No jaundice. NEUROLOGICAL: Alert, awake, appropriate. Cranial nerves 2-12 intact. No deficits to light touch and temperature in face, upper extremities and lower extremities. No motor deficits in the in face, upper extremities and lower extremities. Normoreflexic in the upper and lower extremities. Normal speech. Toes are down- going bilaterally. Gait is normal without ataxia. PSYCHIATRIC: Cooperative. Good eye contact. Appropriate mood and affect. ED Treatment Course - LABORATORY CBC & Chemistry Diagram: 12/08/17 20:36 12/08/17 20:30 Medical Decision Making - Medical Decision Making 12/08/17 21:45 72-year-old female presents with chronic left-sided chest pain Patient presents to the emergency department daily for similar complaints Labs will be drawn/BMP, cardiac profile, EKG If stable, discharged home to follow-up with cardiology and breast surgery *DC/Admit/Observation/Transfer Diagnosis at time of Disposition: Chest pain Qualifiers: Chest pain type: chest pain on breathing Qualified Code(s): R07.1 - Chest pain on breathing - Discharge Dispostion Disposition: ELOPED Decision to Admit order: No - Referrals Referrals: Waldo Mabry MD [Primary Care Provider] - - Patient Instructions Printed Discharge Instructions: DI for Atypical Chest Pain Additional Instructions: Follow up with your physician, the tank car mechanic and the breast surgeon Take tylenol as needed for pain Return to the Er for severe/persistent/worsening symptoms Cardiology: Dr. Zhao [phone] Breast Surgeon: Dr. Verdugo [phone] - Post Discharge Activity Progress Note - Progress Note Progress Note: 1901: Immediately after the exam, pt states the weather is calling for rain and she needs to go home. Pt says she feels fine after her ER sandwich/water and an orange. Pt states she doesn't want to get wet and must leave. Pt advised to await for the labs. 8hrs: Pt nikole
[2017-12-08 20:51] LABS: BASO % 0.5 % (0-2.0); HEMATOCRIT 31.1 % (32.4-45.2); HEMOGLOBIN 9.9 GM/dL (10.7-15.3); LYMPH % 23.1 % (8-40); MCH 24.4 pg (25.7-33.7); MEAN CELL VOLUME 76.3 fl (80-96); MEAN PLT VOLUME 7.1 fl (7.5-11.1); MONO % 14.3 % (3.8-10.2); NEUT % 59.1 % (42.8-82.8); PLATELET COUNT 313 K/MM3 (134-434); RBC 4.07 M/mm3 (3.60-5.2); WHITE BLOOD COUNT 5.1 K/mm3 (4.0-10.0)
[2017-12-08 21:19] LABS: ANION GAP 9 MMOL/L (8-16); BLOOD UREA NITROGEN 19 mg/dL (7-18); CALCIUM 8.5 mg/dL (8.5-10.1); CHLORIDE 101 mmol/L (98-107); CO2 26 mmol/L (21-32); CREATININE 0.6 mg/dL (0.55-1.3); GLUCOSE,RANDOM 118 mg/dL (74-106); POTASSIUM 5.2 mmol/L (3.5-5.1); SODIUM 136 mmol/L (136-145)
[2017-12-08 22:12] VITALS: BP 138/70; PULSE 88; TEMP 98.1
== END 2017-12-08 22:41 | disposition left against medical advice (07) ==
LOC: JER 18:52
DX: R07.9 Chest pain, unspecified (principal); I10 Essential (primary) hypertension; E11.9 Type 2 diabetes mellitus without complications; E78.5 Hyperlipidemia, unspecified; F41.8 Other specified anxiety disorders; I69.893 Ataxia following other cerebrovascular disease; I69.810 Attention and concentration deficit following other cerebrovascular disease; Z86.011 Personal history of benign neoplasm of the brain; Z96.653 Presence of artificial knee joint, bilateral; Z88.8 Allergy status to other drugs, medicaments and biological substances
CPT/HCPCS: 36415; 80048; 82550; 84484; 85025; 99285-25

== ENCOUNTER 2017-12-09 18:01 | Emergency (ER) | payer OTHER ==
[2017-12-09 18:12] VITALS: BMI 33.2
--- NOTE | 2017-12-09 19:20 | PDOC ---
History of Present Illness - General Chief Complaint: Chest Pain Stated Complaint: CHEST PAIN Time Seen by Provider: 12/09/17 18:23 History Source: Patient - History of Present Illness Initial Comments: 12/09/17 19:19 72F w/ pmhx of HTN, DM, HLD, COPD, CVA who presents with chest pain. History was limited as patient was falling asleep during interview. Pt states she has L sided chest pain associated with headache. Denies f/c, n/v, abd pain. Of note, pt was seen in the ED yesterday, labs wnl. Past History - Past Medical History Allergies/Adverse Reactions: Allergies Allergy/AdvReac Type Severity Reaction Status Date / Time aspirin Allergy Severe "NERVOUS" Verified 12/09/17 18:10 morphine Allergy Severe "ANXIETY-DE Verified 12/09/17 18:10 SPERATION" Home Medications: Ambulatory Orders Escitalopram Oxalate [Lexapro -] 10 mg PO DAILY 03/10/16 Amlodipine Besylate 5 mg PO DAILY 11/06/17 Betamethasone/Propylene Glyc [Betamethasone Dp Aug 0.05% Crm] 0.05 applic TP BID 11/06/17 Divalproex Sodium [Depakote] 500 mg PO BID 11/06/17 Famotidine 20 mg PO BID 11/06/17 Cefpodoxime Proxetil [Vantin -] 100 mg PO BID #14 tablet 11/07/17 Docusate Sodium [Colace] 100 mg PO BID #1 capsule 11/07/17 Ferrous Sulfate [Feosol] 325 mg PO BID #60 tablet 11/07/17 Lisinopril [Prinivil] 5 mg PO DAILY #30 tablet 11/07/17 Anemia: Yes Asthma: No Cancer: No Cardiac Disorders: Yes (Chest pain) 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, baseline confusion and dizziness) COPD: Yes CHF: No DVT: No Dementia: No Diabetes: Yes GI Disorders: Yes (gerd, gastric ulcer, dysphagia) Disorders: Yes (kidney stone in the past) HTN: Yes Hypercholesterolemia: Yes Liver Disease: No Psychiatric Problems: Yes (ANXIETY DEPRESSION) Seizures: Yes (S/P craniotomy for benign tumor - on Depakote for seizure prophylaxis) Thyroid Disease: No - Surgical History Abdominal Surgery: Yes Appendectomy: No Cardiac Surgery: No Cholecystectomy: Yes Lung Surgery: No Neurologic Surgery: Yes (removal left meningioma, craniotomy) Orthopedic Surgery: Yes (bilat knee replacement) - Immunization History Td Vaccination: Yes TDAP Vaccination: No Immunization Up to Date: No - Suicide/Smoking/Psychosocial Hx Smoking Status: No Smoking History: Never smoked Have you smoked in the past 12 months: No Number of Cigarettes Smoked Daily: 0 Cigars Per Day: 0 Information on smoking cessation initiated: No Hx Alcohol Use: No Drug/Substance Use Hx: No Substance Use Type: None Hx Substance Use Treatment: No Review of Systems - Review of Systems Able to Perform ROS?: No Comments:: Pt seen falling asleep during interview. Is the patient limited Upper Sorbian proficient: Yes *Physical Exam - Vital Signs Last Vital Signs Temp Pulse Resp BP Pulse Ox 99.0 F 79 18 107/56 L 100 12/09/17 18:10 12/09/17 18:10 12/09/17 18:10 12/09/17 18:10 12/09/17 18:10 - Physical Exam Comments: Unable to perform complete physical exam as pt uncooperative and wanted to sleep. General Appearance: Yes: Appropriately Dressed Respiratory/Chest: positive: Lungs Clear, Normal Breath Sounds Cardiovascular: positive: Regular Rhythm, Regular Rate, S1, S2 Vascular Pulses: Dorsalis-Pedis (R): 2+, Doralis-Pedis (L): 2+ Medical Decision Making - Medical Decision Making Pt recently seen yesterday in the ED. Will give meds for pain control. Sign out to Dr. Barrera for continuation of care. *DC/Admit/Observation/Transfer Diagnosis at time of Disposition: Chest pain - Discharge Dispostion Disposition: HOME Condition at time of disposition: Good - Referrals Referrals: Waldo Mabry MD [Primary Care Provider] - - Patient Instructions Printed Discharge Instructions: DI for Chest Pain Additional Instructions: Te vieron aqu por dolor en el pecho. Por favor karol tavo jihan con el Dr. Mabry! Regrese a la leah de emergencias si: el dolor empeora, tiene fiebre, tiene dificultad para respirar o si ocurre algn sntoma nuevo. You were seen here for chest pain. Please make an appointment with Dr. Mabry! Come back to emergency room if: pain gets worse, you have fever, you have shortness of breath or if any new concerning symptom happens. Print Language: ARMENIAN - Post Discharge Activity
[2017-12-09] MEDS ORDERED: LIDOCAINE 5% TOPICAL PATCH TP ONE (20:11)
--- NOTE | 2017-12-09 20:20 | PDOC ---
Attending Attestation - Resident Resident Name: HollySaRossy - ED Attending Attestation I have performed the following: I have examined & evaluated the patient, The case was reviewed & discussed with the resident, I agree w/resident's findings & plan, Exceptions are as noted - HPI HPI: 12/09/17 20:12 Ms Sumner is well known to this ER She presents to the ER with a complaint of chest pain She points to her left anterior chest No shortness of breath No fevers, no chills - Physicial Exam PE: 12/09/17 20:20 GENERAL: The patient is in no acute distress, pt is somnolent EYES: PERRLA, EOMI ENT: Ears normal, nares patent, oropharynx clear without exudates. Moist mucous membranes. LUNGS: Breath sounds equal, clear to auscultation bilaterally. HEART:Regular rate and rhythm, normal S1 and S2 without murmur, rub or gallop. ABDOMEN: Soft, nontender, normoactive bowel sounds. EXTREMITIES: Normal range of motion, no edema. NEUROLOGICAL: Cranial nerves II through XII grossly intact. Normal speech. No focal neurological deficits. Somonlent but arousable MUSCULOSKELETAL: Back non-tender to palpation, no CVA tenderness SKIN: Warm, Dry, normal turgor, no rashes or lesions noted. - Medical Decision Making 12/09/17 20:23 72 yo F presenting with a complaint of chest pain Pt was here yesterday, s/p work up Pt somnolent but arousable She admits to taking Tylenol PM EKG:Twelve-lead EKG was performed and reviewed by me. There is normal sinus rhythm with a normal rate. The axis is normal. The intervals are normal. There are no ST or T wave abnormalities. Impression: Normal twelve-lead EKG
[2017-12-09] MEDS ORDERED: MORPHINE SULFATE 2 MG/ML VIAL ONE (20:24)
[2017-12-09] MEDS ORDERED: LIDOCAINE 5% TOPICAL PATCH ONE (20:26)
[2017-12-09] MEDS ORDERED: LIDOCAINE PATCH REMOVAL MC SCH (22:00)
--- NOTE | 2017-12-09 22:25 | PDOC ---
*Physical Exam - Vital Signs Last Vital Signs Temp Pulse Resp BP Pulse Ox 99.0 F 79 18 107/56 L 100 12/09/17 18:10 12/09/17 18:10 12/09/17 18:10 12/09/17 18:10 12/09/17 18:10 ED Treatment Course - Medications Given in the ED: ED Medications Discontinued Medications Generic Name Dose Route Start Last Admin Trade Name Chance PRN Reason Stop Dose Admin Lidocaine 1 patch 12/09/17 20:11 12/09/17 21:15 Lidoderm Patch - TP 12/09/17 20:12 1 patch ONCE ONE Administration Medical Decision Making - Medical Decision Making 12/10/17 00:10 72F w/ pmhx of HTN, DM, HLD, COPD, CVA who presents with chest pain and headache , well known to department. EKG: nsr. Labs not drawn at this time, pt was here yesterday, labs wnl. Pt wanted to rest while in ED, let her sleep. Upon waking and eating chips, pt was ok with being dc, asking for Tylenol for pain. seeing as Tylenol has worked in the past. Pt can be dc home. *DC/Admit/Observation/Transfer Diagnosis at time of Disposition: Chest pain Qualifiers: Chest pain type: unspecified Qualified Code(s): R07.9 - Chest pain, unspecified - Discharge Dispostion Disposition: HOME Condition at time of disposition: Good Decision to Admit order: No - Referrals Referrals: Waldo Mabry MD [Primary Care Provider] - - Patient Instructions Printed Discharge Instructions: DI for Chest Pain Additional Instructions: Te vieron aqu por dolor en el pecho. Por favor karol tavo jihan con el Dr. Mabry! Regrese a la leah de emergencias si: el dolor empeora, tiene fiebre, tiene dificultad para respirar o si ocurre algn sntoma nuevo. You were seen here for chest pain. Please make an appointment with Dr. Mabry! Come back to emergency room if: pain gets worse, you have fever, you have shortness of breath or if any new concerning symptom happens. Print Language: GREEK - Post Discharge Activity
[2017-12-10] MEDS ORDERED: ACETAMINOPHEN 500 MG TABLET (FP) PO ONE
[2017-12-10] MEDS ORDERED: ACETAMINOPHEN 325 MG TABLET (FP) ONE (00:33)
[2017-12-10 08:39] VITALS: BP 131/79; PULSE 89; TEMP 98.1
--- NOTE | 2017-12-10 14:00 | EKG ---
Test Reason : Blood Pressure : / mmHG Vent. Rate : 068 BPM Atrial Rate : 068 BPM P-R Int : 162 ms QRS Dur : 082 ms QT Int : 412 ms P-R-T Axes : 032 009 026 degrees QTc Int : 438 ms NORMAL SINUS RHYTHM NORMAL ECG WHEN COMPARED WITH ECG OF 06-DEC-2017 19:13, NO SIGNIFICANT CHANGE WAS FOUND Confirmed by MD Montero Edward ([id number]) on 12/10/2017 2:00:42 PM Referred By: Confirmed By:Darian Montero MD
== END 2017-12-10 08:37 | disposition home or self-care (01) ==
LOC: JER 18:01
DX: R07.9 Chest pain, unspecified (principal); D64.9 Anemia, unspecified; J44.9 Chronic obstructive pulmonary disease, unspecified; I10 Essential (primary) hypertension; E11.9 Type 2 diabetes mellitus without complications; E78.00 Pure hypercholesterolemia, unspecified; F41.8 Other specified anxiety disorders; F32.9 Major depressive disorder, single episode, unspecified; Z87.19 Personal history of other diseases of the digestive system; R56.9 Unspecified convulsions; Z86.011 Personal history of benign neoplasm of the brain; Z96.653 Presence of artificial knee joint, bilateral; I69.893 Ataxia following other cerebrovascular disease; I69.810 Attention and concentration deficit following other cerebrovascular disease
CPT/HCPCS: 93005; 93010; 99282-25

== ENCOUNTER 2017-12-10 19:56 | Emergency (ER) | payer OTHER ==
[2017-12-10 20:06] VITALS: BP 110/50; PULSE 72; TEMP 98.3; BMI 35.2
--- NOTE | 2017-12-10 20:40 | PDOC ---
History of Present Illness <Florinda Gallagher - Last Filed: 12/10/17 20:42> - General History Source: Patient Exam Limitations: No Limitations - History of Present Illness Initial Comments: 12/10/17 20:53 The patient is a 72 year old female, with a significant past medical history of HLD, HTN, COPD, CVA (w/residual altered balance), NIDDM, seizures (2/2 to benign meningioma craniotomy), who presents to the emergency department with, chest pain. She describes her chest pain as constant and non radiating. She notes this is similar to her previous episodes which she was evaluated for most recently yesterday (12/09), lab work was done and unremarkable at this time. She notes a mild nose bleed, resolved with pressure to the nose. Patient notes her home health aid is only around during the days and she becomes worried at night. While in the ED, the patient requests Tylenol and a sandwich. She denies any palpitations or shortness of breath. Patient denies any recent weakness, numbness, tingling, syncope. She denies recent fevers, chills, headache or dizziness. She denies recent nausea, vomit, diarrhea or constipation. She denies recent dysuria, frequency, urgency or hematuria. Allergies: Aspirin. Morphine. Past surgical history: Craniotomy. Social history: Nonsmoker. Denies EtOH use and recreational drug use. Primary Care Physician: Dr. Mabry <Caleb Canales - Last Filed: 12/10/17 20:54> - General Chief Complaint: Chest Pain Stated Complaint: CHEST PAIN Time Seen by Provider: 12/10/17 20:28 Past History - Past Medical History Anemia: Yes Asthma: No Cancer: No Cardiac Disorders: Yes (Chest pain) 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, baseline confusion and dizziness) COPD: Yes CHF: No DVT: No Dementia: No Diabetes: Yes GI Disorders: Yes (gerd, gastric ulcer, dysphagia) Disorders: Yes (kidney stone in the past) HTN: Yes Hypercholesterolemia: Yes Liver Disease: No Psychiatric Problems: Yes (ANXIETY DEPRESSION) Seizures: Yes (S/P craniotomy for benign tumor - on Depakote for seizure prophylaxis) Thyroid Disease: No - Surgical History Abdominal Surgery: Yes Appendectomy: No Cardiac Surgery: No Cholecystectomy: Yes Lung Surgery: No Neurologic Surgery: Yes (removal left meningioma, craniotomy) Orthopedic Surgery: Yes (bilat knee replacement) - Immunization History Td Vaccination: Yes TDAP Vaccination: No Immunization Up to Date: No - Suicide/Smoking/Psychosocial Hx Smoking Status: No Smoking History: Never smoked Have you smoked in the past 12 months: No Number of Cigarettes Smoked Daily: 0 Cigars Per Day: 0 Hx Alcohol Use: No Drug/Substance Use Hx: No Substance Use Type: None Hx Substance Use Treatment: No <Florinda Gallagher - Last Filed: 12/10/17 20:42> <Caleb Canales - Last Filed: 12/10/17 20:54> - Past Medical History Allergies/Adverse Reactions: Allergies Allergy/AdvReac Type Severity Reaction Status Date / Time aspirin Allergy Severe "NERVOUS" Verified 12/09/17 18:10 morphine Allergy Severe "ANXIETY-DE Verified 12/09/17 18:10 SPERATION" Home Medications: Ambulatory Orders Escitalopram Oxalate [Lexapro -] 10 mg PO DAILY 03/10/16 Amlodipine Besylate 5 mg PO DAILY 11/06/17 Betamethasone/Propylene Glyc [Betamethasone Dp Aug 0.05% Crm] 0.05 applic TP BID 11/06/17 Divalproex Sodium [Depakote] 500 mg PO BID 11/06/17 Famotidine 20 mg PO BID 11/06/17 Cefpodoxime Proxetil [Vantin -] 100 mg PO BID #14 tablet 11/07/17 Docusate Sodium [Colace] 100 mg PO BID #1 capsule 11/07/17 Ferrous Sulfate [Feosol] 325 mg PO BID #60 tablet 11/07/17 Lisinopril [Prinivil] 5 mg PO DAILY #30 tablet 11/07/17 Review of Systems - Review of Systems Able to Perform ROS?: Yes Comments:: 12/10/17 20:53 CONSTITUTIONAL: Absent: fever, no chills, no fatigue EYES: Absent: visual changes ENT: Present: Nose bleed. Absent: ear pain, no sore throat CARDIOVASCULAR: Present: Chest pain. Absent: no palpitations RESPIRATORY: Absent: cough, no SOB GI: Absent: abdominal pain, no nausea, no vomiting, no constipation, no diarrhea GENITOURINARY: Absent: dysuria, no frequency, no hematuria MUSKULOSKELETAL: Absent: back pain, no arthralgia, no myalgia SKIN: Absent: rash NEURO: Absent: headache All Other Systems: Reviewed and Negative <Caleb Canales - Last Filed: 12/10/17 20:54> *Physical Exam - Vital Signs Last Vital Signs Temp Pulse Resp BP Pulse Ox 98.3 F 72 18 110/50 L 98 12/10/17 19:58 12/10/17 19:58 12/10/17 19:58 12/10/17 19:58 12/10/17 19:58 <Florinda Gallagher - Last Filed: 12/10/17 20:42> - Vital Signs Last Vital Signs Temp Pulse Resp BP Pulse Ox 98.3 F 72 18 110/50 L 98 12/10/17 19:58 12/10/17 19:58 12/10/17 19:58 12/10/17 19:58 12/10/17 19:58 - Physical Exam Comments: 12/10/17 20:53 GENERAL: Well developed, well nourished. Awake and alert. No acute distress. +HEENT: Mild anterior nosebleed. Normocephalic, atraumatic. PERRLA, EOMI. No conjunctival pallor. Sclera are non-icteric. Moist mucous membranes. Oropharynx is clear. NECK: Supple. Full ROM. No JVD. Carotid pulses 2+ and symmetric, without bruits. No thyromegaly. No lymphadenopathy. CARDIOVASCULAR: Regular rate and rhythm. No murmurs, rubs, or gallops. Distal pulses are 2+ and symmetric. PULMONARY: No evidence of respiratory distress. Lungs clear to auscultation bilaterally. No wheezing, rales or rhonchi. ABDOMINAL: Soft. Non-tender. Non-distended. No rebound or guarding. No organomegaly. Normoactive bowel sounds. MUSCULOSKELETAL Normal range of motion at all joints. No bony deformities or tenderness. No CVA tenderness. EXTREMITIES: No cyanosis. No clubbing. No edema. No calf tenderness. SKIN: Warm and dry. Normal capillary refill. No rashes. No jaundice. NEUROLOGICAL: Alert and oriented X3. appropriate. Cranial nerves 2-12 intact. No deficits to light touch and temperature in face, upper extremities and lower extremities. No motor deficits in the in face, upper extremities and lower extremities. Normoreflexic in the upper and lower extremities. Normal speech. Toes are down- going bilaterally. Gait is normal without ataxia. PSYCHIATRIC: (+)Mild anxiety Cooperative. Good eye contact. Appropriate mood and affect. <Caleb Canales - Last Filed: 12/10/17 20:54> *DC/Admit/Observation/Transfer <Florinda Gallagher - Last Filed: 12/10/17 20:42> - Attestations Scribe Attestion: 12/10/17 20:54 Documentation prepared by Caleb Canales, acting as medical laboratory technician for Florinda Gallagher MD. <Caleb Canales - Last Filed: 12/10/17 20:54> Diagnosis at time of Disposition: Atypical chest pain, Bleeding nose - Patient Instructions Printed Discharge Instructions: DI for Atypical Chest Pain, DI for Nosebleed Additional Instructions: please apply pressure to your nose as directed. Open your mouth if you have to sneeze
[2017-12-10] MEDS ORDERED: ACETAMINOPHEN 325 MG TABLET (FP) PO ONE (20:41)
[2017-12-10] MEDS ORDERED: ACETAMINOPHEN 325 MG TABLET (FP) ONE (21:06)
--- NOTE | 2017-12-11 09:45 | EKG ---
Test Reason : Blood Pressure : / mmHG Vent. Rate : 072 BPM Atrial Rate : 072 BPM P-R Int : 160 ms QRS Dur : 080 ms QT Int : 398 ms P-R-T Axes : 050 007 027 degrees QTc Int : 435 ms NORMAL SINUS RHYTHM NORMAL ECG WHEN COMPARED WITH ECG OF 09-DEC-2017 18:19, NO SIGNIFICANT CHANGE WAS FOUND Confirmed by J LIUS POWELL MD ([id number]) on 12/11/2017 9:44:37 AM Referred By: Confirmed By:J LUIS POWELL MD
== END 2017-12-10 21:52 | disposition home or self-care (01) ==
LOC: JER 19:56
DX: R07.89 Other chest pain (principal); R04.0 Epistaxis; J44.9 Chronic obstructive pulmonary disease, unspecified; I10 Essential (primary) hypertension; E11.9 Type 2 diabetes mellitus without complications; E78.00 Pure hypercholesterolemia, unspecified; F41.8 Other specified anxiety disorders; I69.893 Ataxia following other cerebrovascular disease; I69.810 Attention and concentration deficit following other cerebrovascular disease; Z86.011 Personal history of benign neoplasm of the brain; Z96.653 Presence of artificial knee joint, bilateral; Z87.19 Personal history of other diseases of the digestive system
CPT/HCPCS: 93005; 93010; 99282-25

== ENCOUNTER 2017-12-13 01:31 | Emergency (ER) | payer OTHER ==
[2017-12-13] MEDS ORDERED: ACETAMINOPHEN 325 MG TABLET (FP) PO ONE (02:15)
--- NOTE | 2017-12-13 02:15 | PDOC ---
History of Present Illness - General History Source: Patient <Karlie Gallagher - Last Filed: 12/13/17 05:25> <Marni Durham - Last Filed: 12/13/17 05:44> - General Chief Complaint: Chest Pain Stated Complaint: CHEST DISCOMFORT Time Seen by Provider: 12/13/17 02:03 - History of Present Illness Initial Comments: 12/13/17 03:14 72 year old female BIBA c/o chest pain to the left side. patient has a past medical history of HLD, HTN, COPD, CVA (w/residual altered balance), NIDDM, seizures (2/2 to benign meningioma craniotomy with multiple visits to the ED with similar complaints reports left sided chest pain. patient is requesting tylenol for pain. denies Nausea, vomtiing, abdominal pain, crushing or radiating chest pain. patient most recent visit 12/13/17 03:18 (Karlie Gallagher) Past History - Past Medical History Anemia: Yes Asthma: No Cancer: No Cardiac Disorders: Yes (Chest pain) 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, baseline confusion and dizziness) COPD: Yes CHF: No DVT: No Dementia: No Diabetes: Yes GI Disorders: Yes (gerd, gastric ulcer, dysphagia) Disorders: Yes (kidney stone in the past) HTN: Yes Hypercholesterolemia: Yes Liver Disease: No Psychiatric Problems: Yes (ANXIETY DEPRESSION) Seizures: Yes (S/P craniotomy for benign tumor - on Depakote for seizure prophylaxis) Thyroid Disease: No - Surgical History Abdominal Surgery: Yes Appendectomy: No Cardiac Surgery: No Cholecystectomy: Yes Lung Surgery: No Neurologic Surgery: Yes (removal left meningioma, craniotomy) Orthopedic Surgery: Yes (bilat knee replacement) - Immunization History Td Vaccination: Yes TDAP Vaccination: No Immunization Up to Date: No - Suicide/Smoking/Psychosocial Hx Smoking Status: No Smoking History: Never smoked Have you smoked in the past 12 months: No Number of Cigarettes Smoked Daily: 0 Cigars Per Day: 0 Hx Alcohol Use: No Drug/Substance Use Hx: No Substance Use Type: None Hx Substance Use Treatment: No <Karlie Gallagher - Last Filed: 12/13/17 05:25> <Marni Durham - Last Filed: 12/13/17 05:44> - Past Medical History Allergies/Adverse Reactions: Allergies Allergy/AdvReac Type Severity Reaction Status Date / Time aspirin Allergy Severe "NERVOUS" Verified 12/09/17 18:10 morphine Allergy Severe "ANXIETY-DE Verified 12/09/17 18:10 SPERATION" Home Medications: Ambulatory Orders Escitalopram Oxalate [Lexapro -] 10 mg PO DAILY 03/10/16 Amlodipine Besylate 5 mg PO DAILY 11/06/17 Betamethasone/Propylene Glyc [Betamethasone Dp Aug 0.05% Crm] 0.05 applic TP BID 11/06/17 Divalproex Sodium [Depakote] 500 mg PO BID 11/06/17 Famotidine 20 mg PO BID 11/06/17 Cefpodoxime Proxetil [Vantin -] 100 mg PO BID #14 tablet 11/07/17 Docusate Sodium [Colace] 100 mg PO BID #1 capsule 11/07/17 Ferrous Sulfate [Feosol] 325 mg PO BID #60 tablet 11/07/17 Lisinopril [Prinivil] 5 mg PO DAILY #30 tablet 11/07/17 Cardiac Specific PMH - Complaint Specific PMHX Pacemaker: No <Karlie Gallagher - Last Filed: 12/13/17 05:25> Review of Systems - Review of Systems Able to Perform ROS?: Yes Is the patient limited Nigerien proficient: No Constitutional: No: Symptoms Reported, See HPI, Chills, Diaphoresis, Fever, Loss of Appetite, Malaise, Night Sweats, Weakness, Weight Stable, Unintentional Wgt. Loss, Unexplained wgt Loss, Other Cardiac (ROS): Yes: Chest Pain. No: Symptoms Reported, See HPI, Edema, Irregular Heart Rate, Lightheadedness, Palpitations, Syncope, Chest Tightness, Other : No: Symptoms Reported, See HPI, Burning, Dysuria, Discharge, Frequency, Flank Pain, Hematuria, Incontinence, Pain, Urgency, Testicular Mass, Testicular Swelling, Lesions, Testicular Pain, Other Musculoskeletal: No: Symptoms Reported, See HPI, Back Pain, Gout, Joint Pain, Joint Swelling, Muscle Pain, Muscle Weakness, Neck Pain, Joint Stiffness, Other Integumentary: No: Symptoms Reported, See HPI, Bruising, Change in Color, Change in Hair/Nails, Dryness, Erythema, Flushing, Lesions, Lumps, Pallor, Pruritus, Rash, Sweating, Other Neurological: Yes: Headache. No: Symptoms reported, See HPI, Numbness, Paresthesia, Pre-Existing Deficit, Seizure, Tingling, Tremors, Weakness, Unsteady Gait, Ataxia, Dizziness, Other <Karlie Gallagher - Last Filed: 12/13/17 05:25> *Physical Exam - Physical Exam General Appearance: Yes: Appropriately Dressed HEENT: positive: Other Respiratory/Chest: positive: Lungs Clear, Normal Breath Sounds. negative: Chest Tender Cardiovascular: positive: Regular Rhythm, Regular Rate Extremity: positive: Normal Capillary Refill, Normal Inspection, Normal Range of Motion Integumentary: positive: Normal Color, Warm Neurologic: positive: Fully Oriented, Alert <Karlie Gallagher - Last Filed: 12/13/17 05:25> - Vital Signs Last Vital Signs Temp Pulse Resp BP Pulse Ox 98.5 F 89 136/78 98 12/13/17 01:35 12/13/17 01:35 12/13/17 01:35 12/13/17 01:35 ED Treatment Course - LABORATORY CBC & Chemistry Diagram: 12/13/17 04:05 12/13/17 04:05 <Karlie Gallagher - Last Filed: 12/13/17 05:25> - LABORATORY CBC & Chemistry Diagram: 12/13/17 04:05 12/13/17 04:05 <Marni Durham - Last Filed: 12/13/17 05:44> - ADDITIONAL ORDERS Additional order review: Laboratory Results 12/13/17 04:05 Sodium 136 Potassium 4.9 Chloride 103 Carbon Dioxide 26 Anion Gap 7 L BUN 24 H Creatinine 0.5 L Creat Clearance w eGFR > 60 Random Glucose 141 H Calcium 8.3 L Total Bilirubin 0.2 AST 19 ALT 23 Alkaline Phosphatase 213 H Troponin I < 0.02 Total Protein 7.1 Albumin 3.4 12/13/17 04:05 RBC 3.96 MCV 77.5 L MCHC 31.5 L RDW 19.2 H MPV 7.3 L Neutrophils % 48.1 Lymphocytes % 31.3 D Monocytes % 15.8 H Eosinophils % 4.1 Basophils % 0.7 - Medications Given in the ED: ED Medications Discontinued Medications Generic Name Dose Route Start Last Admin Trade Name Freq PRN Reason Stop Dose Admin Acetaminophen 650 mg 12/13/17 02:15 12/13/17 02:50 Tylenol - PO 12/13/17 02:16 650 mg ONCE ONE Administration Medical Decision Making <Karlie Gallagher - Last Filed: 12/13/17 05:25> <Marni Durham - Last Filed: 12/13/17 05:44> - Medical Decision Making 12/13/17 05:25 patient is alseep. will d/c home (Karlie Gallagher) 12/13/17 03:42 The patient was seen and evaluated in conjunction with midlevel provider under my direct supervision, ancillary studies were reviewed. I agree with the plan as outlined by BABAK Gallagher. eKG is sinus rhythm, nonischemic trop neg, labs at baseline, lytes wnl pain controlled with tylenol. remains well, comfortable in chair DC home. stable condition. 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 * If there is no improvement in symptoms in 2 days call your physician. * Return to the Emergency Department for any worsening symptoms.
[2017-12-13] MEDS ORDERED: ACETAMINOPHEN 325 MG TABLET (FP) ONE (02:48)
[2017-12-13 03:06] VITALS: TEMP 98.5; BMI 35.2
[2017-12-13 04:25] LABS: BASO % 0.7 % (0-2.0); EOS % 4.1 % (0-4.5); HEMATOCRIT 30.7 % (32.4-45.2); HEMOGLOBIN 9.7 GM/dL (10.7-15.3); LYMPH % 31.3 % (8-40); MCH 24.4 pg (25.7-33.7); MCHC 31.5 g/dl (32.0-36.0); MEAN CELL VOLUME 77.5 fl (80-96); MEAN PLT VOLUME 7.3 fl (7.5-11.1); MONO % 15.8 % (3.8-10.2); NEUT % 48.1 % (42.8-82.8); PLATELET COUNT 321 K/MM3 (134-434); RBC 3.96 M/mm3 (3.60-5.2); RDW 19.2 % (11.6-15.6); WHITE BLOOD COUNT 3.8 K/mm3 (4.0-10.0)
[2017-12-13 04:51] LABS: ALBUMIN 3.4 g/dl (3.4-5.0); ALK PHOS 213 U/L (45-117); ANION GAP 7 MMOL/L (8-16); BILIRUBIN,TOTAL 0.2 mg/dL (0.2-1); BLOOD UREA NITROGEN 24 mg/dL (7-18); CALCIUM 8.3 mg/dL (8.5-10.1); CHLORIDE 103 mmol/L (98-107); CO2 26 mmol/L (21-32); CREATININE 0.5 mg/dL (0.55-1.3); GLUCOSE,RANDOM 141 mg/dL (74-106); POTASSIUM 4.9 mmol/L (3.5-5.1); SGOT/AST 19 U/L (15-37); SGPT/ALT 23 U/L (13-61); SODIUM 136 mmol/L (136-145); TOT PROT 7.1 g/dl (6.4-8.2)
[2017-12-13 06:04] VITALS: BP 126/78; PULSE 98
--- NOTE | 2017-12-13 11:21 | EKG ---
Test Reason : Blood Pressure : / mmHG Vent. Rate : 066 BPM Atrial Rate : 066 BPM P-R Int : 168 ms QRS Dur : 082 ms QT Int : 408 ms P-R-T Axes : 042 003 011 degrees QTc Int : 427 ms NORMAL SINUS RHYTHM NORMAL ECG WHEN COMPARED WITH ECG OF 10-DEC-2017 19:54, NO SIGNIFICANT CHANGE WAS FOUND Confirmed by ANNITA VENTURA MD ([id number]) on 12/13/2017 11:21:21 AM Referred By: Confirmed By:ANNITA VENTURA MD
== END 2017-12-13 06:04 | disposition home or self-care (01) ==
LOC: JER 01:31
DX: R07.89 Other chest pain (principal); E78.00 Pure hypercholesterolemia, unspecified; E11.9 Type 2 diabetes mellitus without complications; K21.9 Gastro-esophageal reflux disease without esophagitis; F41.8 Other specified anxiety disorders; D64.9 Anemia, unspecified; I10 Essential (primary) hypertension
CPT/HCPCS: 36415; 80053; 84484; 85025; 93005; 93010; 99282-25

== ENCOUNTER 2017-12-14 17:24 | Emergency (ER) | payer OTHER ==
--- NOTE | 2017-12-14 18:07 | PDOC ---
Rapid Medical Evaluation Chief Complaint: Chest Pain Time Seen by Provider: 12/14/17 18:06 Medical Evaluation: Allergies Allergy/AdvReac Type Severity Reaction Status Date / Time aspirin Allergy Severe "NERVOUS" Verified 12/09/17 18:10 morphine Allergy Severe "ANXIETY-DE Verified 12/09/17 18:10 SPERATION" 12/14/17 18:07 I have performed a brief in person evaluation of this patient. The patient presents with a CC of: CP x 1 day PE: Skin: clear Lungs: Clear Heart: RRR Abd: No pain upon palpation MS: Moves all extremities without difficulty. Psych: Age appropriate. I have ordered the following: CV protocol The patient will proceed to the ED for further evaluation. Discharge Disposition - Diagnosis Chest pain - Referrals - Patient Instructions - Post Discharge Activity
[2017-12-14 18:10] VITALS: BP 165/76; PULSE 83; TEMP 98.6; BMI 33.2
[2017-12-14 18:53] LABS: BASO % 0.4 % (0-2.0); EOS % 1.9 % (0-4.5); HEMATOCRIT 31.9 % (32.4-45.2); HEMOGLOBIN 9.8 GM/dL (10.7-15.3); LYMPH % 18.8 % (8-40); MCH 23.6 pg (25.7-33.7); MCHC 30.7 g/dl (32.0-36.0); MEAN CELL VOLUME 76.9 fl (80-96); MEAN PLT VOLUME 7.4 fl (7.5-11.1); MONO % 13.9 % (3.8-10.2); PLATELET COUNT 358 K/MM3 (134-434); RBC 4.15 M/mm3 (3.60-5.2); RDW 19.1 % (11.6-15.6)
[2017-12-14] MEDS ORDERED: IBUPROFEN 600 MG TABLET (FP) PO ONE (19:00)
[2017-12-14] MEDS ORDERED: LIDOCAINE 5% TOPICAL PATCH TP ONE (19:00)
--- NOTE | 2017-12-14 19:01 | PDOC ---
History of Present Illness - General Chief Complaint: Chest Pain Stated Complaint: PAIN Time Seen by Provider: 12/14/17 18:06 - History of Present Illness Initial Comments: The patient is a 72F who presents for evaluation of L breast pain, chronic. The patient reports no change in her pain. She states she presented for evaluation because she was concerned about her Denies recent illness, fevers/chills, GALLARDO, chest pain, shortness of breath, N/V/C /D, or changes in sensation Denies recent trauma or falls Denies recent mammogram 12/14/17 21:00 Past History - Past Medical History Allergies/Adverse Reactions: Allergies Allergy/AdvReac Type Severity Reaction Status Date / Time aspirin Allergy Severe "NERVOUS" Verified 12/09/17 18:10 morphine Allergy Severe "ANXIETY-DE Verified 12/09/17 18:10 SPERATION" Home Medications: Ambulatory Orders Escitalopram Oxalate [Lexapro -] 10 mg PO DAILY 03/10/16 Amlodipine Besylate 5 mg PO DAILY 11/06/17 Betamethasone/Propylene Glyc [Betamethasone Dp Aug 0.05% Crm] 0.05 applic TP BID 11/06/17 Divalproex Sodium [Depakote] 500 mg PO BID 11/06/17 Famotidine 20 mg PO BID 11/06/17 Cefpodoxime Proxetil [Vantin -] 100 mg PO BID #14 tablet 11/07/17 Docusate Sodium [Colace] 100 mg PO BID #1 capsule 11/07/17 Ferrous Sulfate [Feosol] 325 mg PO BID #60 tablet 11/07/17 Lisinopril [Prinivil] 5 mg PO DAILY #30 tablet 11/07/17 Anemia: Yes Asthma: No Cancer: No Cardiac Disorders: Yes (Chest pain) 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, baseline confusion and dizziness) COPD: Yes CHF: No DVT: No Dementia: No Diabetes: Yes GI Disorders: Yes (gerd, gastric ulcer, dysphagia) Disorders: Yes (kidney stone in the past) HTN: Yes Hypercholesterolemia: Yes Liver Disease: No Psychiatric Problems: Yes (ANXIETY DEPRESSION) Seizures: Yes (S/P craniotomy for benign tumor - on Depakote for seizure prophylaxis) Thyroid Disease: No - Surgical History Abdominal Surgery: Yes Appendectomy: No Cardiac Surgery: No Cholecystectomy: Yes Lung Surgery: No Neurologic Surgery: Yes (removal left meningioma, craniotomy) Orthopedic Surgery: Yes (bilat knee replacement) - Immunization History Td Vaccination: Yes TDAP Vaccination: No Immunization Up to Date: No - Suicide/Smoking/Psychosocial Hx Smoking Status: No Smoking History: Never smoked Have you smoked in the past 12 months: No Number of Cigarettes Smoked Daily: 0 Cigars Per Day: 0 Information on smoking cessation initiated: No Hx Alcohol Use: No Drug/Substance Use Hx: No Substance Use Type: None Hx Substance Use Treatment: No Review of Systems - Review of Systems Able to Perform ROS?: Yes Comments:: GENERAL/CONSTITUTIONAL: No fever or chills. No weakness HEAD, EYES, EARS, NOSE AND THROAT: No change in vision. No ear pain or discharge. No sore throat CARDIOVASCULAR: No chest pain or shortness of breath RESPIRATORY: No cough, wheezing, or hemoptysis GASTROINTESTINAL: No nausea, vomiting, diarrhea or constipation GENITOURINARY: No dysuria, frequency, or change in urination SKIN: No rash NEUROLOGIC: No headache, vertigo, loss of consciousness, or change in strength/ sensation 12/14/17 21:42 *Physical Exam - Vital Signs Last Vital Signs Temp Pulse Resp BP Pulse Ox 98.6 F 83 16 165/76 98 12/14/17 18:08 12/14/17 18:08 12/14/17 18:08 12/14/17 18:08 12/14/17 18:08 - Physical Exam Comments: GENERAL: Awake, alert, and fully oriented, in no acute distress HEAD: No signs of trauma, normocephalic, atraumatic EYES: PERRLA, EOMI, sclera anicteric, conjunctiva clear CHEST: L medial breast TTP w/o mass palpated LUNGS: No distress, speaks full sentences, clear to auscultation bilaterally HEART: Regular rate and rhythm, normal S1 and S2, no murmurs, rubs or gallops, peripheral pulses normal and equal bilaterally ABDOMEN: Soft, nontender, normoactive bowel sounds. No guarding, no rebound EXTREMITIES : Normal inspection, Normal range of motion, no edema. No clubbing or cyanosis NEUROLOGICAL: Cranial nerves II through XII grossly intact. Normal speech, ambulating independently w/ walker, no focal sensorimotor deficits SKIN: Warm, Dry, normal turgor, no rashes or lesions noted 12/14/17 19:36 ED Treatment Course - LABORATORY CBC & Chemistry Diagram: 12/14/17 18:34 12/14/17 18:34 Medical Decision Making - Medical Decision Making The patient is a 72F who presents for evaluation for persistent L breast pain Ddx: acs, PNA, breast mass; considered but not likely PE, PNX, GERD CMP, CBC, Cardiac profile CXR ECG Lidoderm patch and Ibuprofen 600mg PO once for pain 12/14/17 19:37 No leukocytosis Mild anemia, at baseline Lytes wnl Trop I neg No FRANCIE 12/14/17 19:39 Plan for D/C w/ PCP f/u Plan discussed w/ patient who verbalized understanding and is in agreement Dispo: Home 12/14/17 21:42 *DC/Admit/Observation/Transfer Diagnosis at time of Disposition: Chest pain Qualifiers: Chest pain type: unspecified Qualified Code(s): R07.9 - Chest pain, unspecified - Discharge Dispostion Disposition: HOME Condition at time of disposition: Stable Decision to Admit order: No - Referrals Referrals: Waldo Mabry MD [Primary Care Provider] - - Patient Instructions Printed Discharge Instructions: DI for Atypical Chest Pain - Post Discharge Activity
--- NOTE | 2017-12-14 19:03 | PDOC ---
Attending Attestation - Resident Resident Name: Jeromy Collier - ED Attending Attestation I have performed the following: I have examined & evaluated the patient, The case was reviewed & discussed with the resident, I agree w/resident's findings & plan, Exceptions are as noted - HPI HPI: 12/14/17 19:03 Ms Sumner is well known to this ER She presents to the ER with a complaint of chest pain She points to her left anterior chest No shortness of breath No fevers, no chills - Physicial Exam PE: 12/14/17 19:03 GENERAL: The patient is in no acute distress, pt is somnolent EYES: PERRLA, EOMI ENT: Ears normal, nares patent, oropharynx clear without exudates. Moist mucous membranes. LUNGS: Breath sounds equal, clear to auscultation bilaterally. HEART:Regular rate and rhythm, normal S1 and S2 without murmur, rub or gallop. ABDOMEN: Soft, nontender, normoactive bowel sounds. EXTREMITIES: Normal range of motion, no edema. NEUROLOGICAL: Cranial nerves II through XII grossly intact. Normal speech. No focal neurological deficits. MUSCULOSKELETAL: Chest wall tenderness to palpation SKIN: Warm, Dry, normal turgor, no rashes or lesions noted. - Medical Decision Making 12/14/17 19:04 72 yo F presenting with a complaint of chest pain Pt repeatedly presents to the ER for the same EKG:Twelve-lead EKG was performed and reviewed by me. There is normal sinus rhythm with a normal rate. The axis is normal. The intervals are normal. There are no ST or T wave abnormalities. Impression: Normal twelve-lead EKG Labs sent ? social worker psychiatric sony
[2017-12-14 19:21] LABS: ALBUMIN 3.5 g/dl (3.4-5.0); ALK PHOS 189 U/L (45-117); ANION GAP 11 MMOL/L (8-16); BILIRUBIN,TOTAL 0.3 mg/dL (0.2-1); BLOOD UREA NITROGEN 16 mg/dL (7-18); CALCIUM 8.9 mg/dL (8.5-10.1); CHLORIDE 100 mmol/L (98-107); CO2 23 mmol/L (21-32); CREATININE 0.5 mg/dL (0.55-1.3); GLUCOSE,RANDOM 96 mg/dL (74-106); MAGNESIUM 2.2 mg/dL (1.8-2.4); POTASSIUM 4.9 mmol/L (3.5-5.1); SGOT/AST 19 U/L (15-37); SGPT/ALT 23 U/L (13-61); SODIUM 134 mmol/L (136-145); TOT PROT 7.4 g/dl (6.4-8.2)
[2017-12-14 19:36] LABS: INR 0.96 (0.83-1.09); PROTHROMBIN TIME (PATIENT) 11.3 SEC (9.7-13.0)
[2017-12-14] MEDS ORDERED: LIDOCAINE PATCH REMOVAL MC SCH (22:00)
--- NOTE | 2017-12-16 12:49 | EKG ---
Test Reason : Blood Pressure : / mmHG Vent. Rate : 077 BPM Atrial Rate : 077 BPM P-R Int : 154 ms QRS Dur : 082 ms QT Int : 384 ms P-R-T Axes : 039 -03 027 degrees QTc Int : 434 ms NORMAL SINUS RHYTHM NORMAL ECG WHEN COMPARED WITH ECG OF 13-DEC-2017 02:40, NO SIGNIFICANT CHANGE WAS FOUND Confirmed by LARA SARMIENTO MD ([id number]) on 12/16/2017 12:48:40 PM Referred By: Confirmed By:LARA SARMIENTO MD
== END 2017-12-14 20:00 | disposition home or self-care (01) ==
LOC: JER 17:24
DX: R07.9 Chest pain, unspecified (principal); I10 Essential (primary) hypertension; D64.9 Anemia, unspecified; F41.8 Other specified anxiety disorders; E78.00 Pure hypercholesterolemia, unspecified; Z87.19 Personal history of other diseases of the digestive system; J44.9 Chronic obstructive pulmonary disease, unspecified; Z86.011 Personal history of benign neoplasm of the brain; Z96.653 Presence of artificial knee joint, bilateral
CPT/HCPCS: 36415; 71046-TC-FY; 80053; 82550; 83735; 84484; 85025; 85610; 93005; 93010; 99282-25

== ENCOUNTER 2017-12-15 22:33 | Emergency (ER) | payer OTHER ==
[2017-12-15 22:56] VITALS: PULSE 96; BMI 28.7
--- NOTE | 2017-12-15 23:09 | PDOC ---
History of Present Illness - General Chief Complaint: Chest Pain Stated Complaint: CHEST PAIN Time Seen by Provider: 12/15/17 23:09 History Source: Patient, Old Records Exam Limitations: No Limitations - History of Present Illness Initial Comments: 12/15/17 23:36 HISTORY OF PRESENT ILLNESS: This is a 72-year-old woman with past medical history of hyperlipidemia, hypertension, COPD, CVA with residual altered balance , diabetes, GERD and seizures status post craniotomy for benign meningioma who presents emergency Department with midsternal chest pain and headache. Patient has been seen and evaluated in this emergency department 12 times since November, of this year for similar complaints. Patient was most recently evaluated on for similar complaints and had negative workup. Patient denies any change in the pain since previous evaluations. Patient denies fevers, chills, blurry vision, dizziness, shortness of breath, abdominal pain, nausea, vomiting, dysuria, hematuria, rectal bleeding, diarrhea. No recent travel or sick contacts. PAST MEDICAL HISTORY: see HPI SURGICAL HISTORY: see HPI ALLERGIES: No known drug allergies REVIEW OF SYSTEMS General/Constitutional: Denies fever or chills. Denies weakness, weight change. HEENT: Denies change in vision. Denies ear pain or discharge. Denies sore throat. Cardiovascular: Midsternal chest pain. No shortness of breath. Respiratory: Denies cough, wheezing, or hemoptysis. Gastrointestinal: Denies nausea, vomiting, diarrhea or constipation. Denies rectal bleeding. Genitourinary: Denies dysuria, frequency, or change in urination. Musculoskeletal: Denies joint or muscle swelling or pain. Denies neck or back pain. Skin and breasts: Denies rash or easy bruising. Neurologic: Frontal headache. Deneis vertigo, loss of consciousness, or loss of sensation. Psychiatric: Denies depression or anxiety. Endocrine: Denies increased thirst. Denies abnormal weight change. Hematologic/Lymphatic: Denies anemia, easy bleeding, or history of blood clots. Allergic/Immunologic: Denies hives or skin allergy. Denies latex allergy. PHYSICAL EXAM General Appearance: Well-appearing, appropriately dressed. No apparent distress , no intoxication. HEENT: EOMI, PERRLA, normal ENT inspection, normal voice, TMs normal, pharynx normal. No conjunctival pallor. No photophobia, scleral icterus. Neck: Supple. Trachea midline. No tenderness, rigidity, carotid bruit, stridor , lymphadenopathy, or thyromegaly. Respiratory/Chest: Lungs CTAB. No shortness of breath, chest tenderness, respiratory distress, accessory muscle use. No crackles, rales, rhonchi, stridor , wheezing, dullness Cardiovascular: RRR. S1, S2. No JVD, murmur, bradycardia, tachycardia. Vascular Pulses: Dorsalis-Pedis (R): 2+, Dorsalis-Pedis (L): 2+ Gastrointestinal/Abdominal: Normal bowel sounds. Abdomen soft, non-distended. No tenderness or rebound tenderness. No organomegaly, pulsatile mass, guarding, hernia, hepatomegaly, splenomegaly. Lymphatic: No adenopathy, tenderness. Musculoskeletal/Extremities: Normal inspection. FROM of all extremities, normal capillary refill. Pelvis Stable. No CVA tenderness. No tenderness to extremities, pedal edema, swelling, erythema or deformity. Integumentary: Appropriate color, dry, warm. 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 Fully oriented, alert. Appropriate mood/affect. Motor strength 5/5. No appreciable EOM palsy, facial droop or sensory deficit. Past History - Past Medical History Allergies/Adverse Reactions: Allergies Allergy/AdvReac Type Severity Reaction Status Date / Time aspirin Allergy Severe "NERVOUS" Verified 12/15/17 22:42 morphine Allergy Severe "ANXIETY-DE Verified 12/15/17 22:42 SPERATION" Home Medications: Ambulatory Orders Escitalopram Oxalate [Lexapro -] 10 mg PO DAILY 03/10/16 Amlodipine Besylate 5 mg PO DAILY 11/06/17 Betamethasone/Propylene Glyc [Betamethasone Dp Aug 0.05% Crm] 0.05 applic TP BID 11/06/17 Divalproex Sodium [Depakote] 500 mg PO BID 11/06/17 Famotidine 20 mg PO BID 11/06/17 Cefpodoxime Proxetil [Vantin -] 100 mg PO BID #14 tablet 11/07/17 Docusate Sodium [Colace] 100 mg PO BID #1 capsule 11/07/17 Ferrous Sulfate [Feosol] 325 mg PO BID #60 tablet 11/07/17 Lisinopril [Prinivil] 5 mg PO DAILY #30 tablet 11/07/17 Anemia: Yes Asthma: No Cancer: No Cardiac Disorders: Yes (Chest pain) 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, baseline confusion and dizziness) COPD: Yes CHF: No DVT: No Dementia: No Diabetes: Yes GI Disorders: Yes (gerd, gastric ulcer, dysphagia) Disorders: Yes (kidney stone in the past) HTN: Yes Hypercholesterolemia: Yes Liver Disease: No Psychiatric Problems: Yes (ANXIETY DEPRESSION) Seizures: Yes (S/P craniotomy for benign tumor - on Depakote for seizure prophylaxis) Thyroid Disease: No - Surgical History Abdominal Surgery: Yes Appendectomy: No Cardiac Surgery: No Cholecystectomy: Yes Lung Surgery: No Neurologic Surgery: Yes (removal left meningioma, craniotomy) Orthopedic Surgery: Yes (bilat knee replacement) - Immunization History Td Vaccination: Yes TDAP Vaccination: No Immunization Up to Date: No - Suicide/Smoking/Psychosocial Hx Smoking Status: No Smoking History: Never smoked Have you smoked in the past 12 months: No Number of Cigarettes Smoked Daily: 0 Cigars Per Day: 0 Information on smoking cessation initiated: No Hx Alcohol Use: No Drug/Substance Use Hx: No Substance Use Type: None Hx Substance Use Treatment: No *Physical Exam - Vital Signs Last Vital Signs Temp Pulse Resp BP Pulse Ox 98.9 F 96 H 18 111/53 L 100 12/15/17 22:37 12/15/17 22:37 12/15/17 22:37 12/15/17 22:37 12/15/17 22:37 ED Treatment Course - LABORATORY CBC & Chemistry Diagram: 12/16/17 03:10 Medical Decision Making - Medical Decision Making 12/15/17 23:38 A/P: 72-year-old woman with mid sternal chest pain Lungs clear to auscultation bilaterally Respirations even and unlabored Regular rate and rhythm. S1 and S2 present. No murmurs, rub or gallop noted Abdomen soft nontender nondistended This patient is well-known to this hospital with frequent visits for chest pain. X-ray performed on 12/14/17 reveals no acute pathology and no significant change from study done on 12/03/79. I will defer chest x-ray at this time. EKG, bmp and cardiac profile. Likely discharge 12/16/17 04:27 Laboratory testing reveals BUN of 24 otherwise unremarkable. EKG reviewed by me as interpreted by Dr. Miller is sinus rhythm rate of 72. Normal intervals noted. No ischemic changes present. I will discharge patient home follow-up with her primary doctor as needed *DC/Admit/Observation/Transfer Diagnosis at time of Disposition: Atypical chest pain Headache Qualifiers: Headache type: unspecified Headache chronicity pattern: chronic headache Intractability: not intractable Qualified Code(s): R51 - Headache - Discharge Dispostion Disposition: HOME Condition at time of disposition: Stable Decision to Admit order: No - Referrals Referrals: Waldo Mabry MD [Primary Care Provider] - - Patient Instructions Additional Instructions: Return for any concerns. - Post Discharge Activity
[2017-12-16] MEDS ORDERED: ACETAMINOPHEN 500 MG TABLET (FP) PO ONE (03:14)
[2017-12-16] MEDS ORDERED: ACETAMINOPHEN 325 MG TABLET (FP) ONE (03:18)
[2017-12-16] MEDS ORDERED: FUROSEMIDE 40 MG TABLET (FP) ONE (03:19)
[2017-12-16 04:17] LABS: ANION GAP 9 MMOL/L (8-16); BLOOD UREA NITROGEN 24 mg/dL (7-18); CALCIUM 8.7 mg/dL (8.5-10.1); CHLORIDE 105 mmol/L (98-107); CO2 25 mmol/L (21-32); CREATININE 0.6 mg/dL (0.55-1.3); GLUCOSE,RANDOM 89 mg/dL (74-106); POTASSIUM 4.4 mmol/L (3.5-5.1); SODIUM 139 mmol/L (136-145)
[2017-12-16 05:11] VITALS: BP 110/56; TEMP 98.5
--- NOTE | 2017-12-16 12:38 | EKG ---
Test Reason : Blood Pressure : / mmHG Vent. Rate : 072 BPM Atrial Rate : 072 BPM P-R Int : 172 ms QRS Dur : 080 ms QT Int : 408 ms P-R-T Axes : 036 001 018 degrees QTc Int : 446 ms NORMAL SINUS RHYTHM NORMAL ECG WHEN COMPARED WITH ECG OF 14-DEC-2017 18:11, NO SIGNIFICANT CHANGE WAS FOUND Confirmed by LARA SARMIENTO MD ([id number]) on 12/16/2017 12:38:21 PM Referred By: Confirmed By:LARA SARMIENTO MD
== END 2017-12-16 05:33 | disposition home or self-care (01) ==
LOC: JER 22:33
DX: R07.9 Chest pain, unspecified (principal); R51 Headache; I10 Essential (primary) hypertension; E78.5 Hyperlipidemia, unspecified; E11.9 Type 2 diabetes mellitus without complications; J44.9 Chronic obstructive pulmonary disease, unspecified; F41.9 Anxiety disorder, unspecified; Z86.69 Personal history of other diseases of the nervous system and sense organs; I69.893 Ataxia following other cerebrovascular disease; I69.810 Attention and concentration deficit following other cerebrovascular disease; Z87.19 Personal history of other diseases of the digestive system; Z96.653 Presence of artificial knee joint, bilateral; Z86.011 Personal history of benign neoplasm of the brain
CPT/HCPCS: 36415; 80048; 82550; 84484; 93005; 93010; 99284-25

== ENCOUNTER 2017-12-17 18:43 | Emergency (ER) | payer OTHER ==
[2017-12-17 18:48] VITALS: BP 139/64; PULSE 73; TEMP 97; BMI 31.2
--- NOTE | 2017-12-17 19:17 | PDOC ---
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 She reports that her current pain is unchanged from her chronic pain. She took tylenol at home with some improvement, but the pain persists. She has no associated nausea, vomiting, sweating, or SOB. The pain does not radiate. She also reports a mild headache. She presented to the hospital because she wanted to get the pain evaluated and her home nurse/aid was no longer available today. Past History - Past Medical History Allergies/Adverse Reactions: Allergies Allergy/AdvReac Type Severity Reaction Status Date / Time aspirin Allergy Severe "NERVOUS" Verified 12/17/17 18:48 morphine Allergy Severe "ANXIETY-DE Verified 12/17/17 18:48 SPERATION" Home Medications: Ambulatory Orders Escitalopram Oxalate [Lexapro -] 10 mg PO DAILY 03/10/16 Amlodipine Besylate 5 mg PO DAILY 11/06/17 Betamethasone/Propylene Glyc [Betamethasone Dp Aug 0.05% Crm] 0.05 applic TP BID 11/06/17 Divalproex Sodium [Depakote] 500 mg PO BID 11/06/17 Famotidine 20 mg PO BID 11/06/17 Cefpodoxime Proxetil [Vantin -] 100 mg PO BID #14 tablet 11/07/17 Docusate Sodium [Colace] 100 mg PO BID #1 capsule 11/07/17 Ferrous Sulfate [Feosol] 325 mg PO BID #60 tablet 11/07/17 Lisinopril [Prinivil] 5 mg PO DAILY #30 tablet 11/07/17 Anemia: Yes Asthma: No Cancer: No Cardiac Disorders: Yes (Chest pain) 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, baseline confusion and dizziness) COPD: Yes CHF: No DVT: No Dementia: No Diabetes: Yes GI Disorders: Yes (gerd, gastric ulcer, dysphagia) Disorders: Yes (kidney stone in the past) HTN: Yes Hypercholesterolemia: Yes Liver Disease: No Psychiatric Problems: Yes (ANXIETY DEPRESSION) Seizures: Yes (S/P craniotomy for benign tumor - on Depakote for seizure prophylaxis) Thyroid Disease: No - Surgical History Abdominal Surgery: Yes Appendectomy: No Cardiac Surgery: No Cholecystectomy: Yes Lung Surgery: No Neurologic Surgery: Yes (removal left meningioma, craniotomy) Orthopedic Surgery: Yes (bilat knee replacement) - Immunization History Td Vaccination: Yes TDAP Vaccination: No Immunization Up to Date: No - Suicide/Smoking/Psychosocial Hx Smoking Status: No Smoking History: Never smoked Have you smoked in the past 12 months: No Number of Cigarettes Smoked Daily: 0 Cigars Per Day: 0 Hx Alcohol Use: No Drug/Substance Use Hx: No Substance Use Type: None Hx Substance Use Treatment: No Review of Systems - Review of Systems Comments:: General: No fevers, no chills, no weight or appetite change, no malaise HEENT: No changes in vision, no changes in hearing, no congestion, no sore throat. +Headache CV: See HPI. No palpitations, no LE edema Pulm: No SOB, no cough, no wheezing GI: No nausea or vomiting, no change in bowel habits, no melena : No frequency, no urgency, no dysuria Musc: No back pain, no joint swelling, no recent injury Skin: No rash, no lesions, no erythema Endo: No excessive thirst, no heat/cold intolerance Heme: No unusual bruising or bleeding, no swollen glands Neuro: No syncope, no numbness/tingling, no focal weakness Vasc: No claudication Psych: No recent change in mood, no SI or HI *Physical Exam - Vital Signs Last Vital Signs Temp Pulse Resp BP Pulse Ox 97 F L 73 18 139/64 99 12/17/17 18:46 12/17/17 18:46 12/17/17 18:46 12/17/17 18:46 12/17/17 18:46 - Physical Exam Comments: General: Comfortable, no acute distress HEENT: PERRL, EOMI, MMM, voice normal, normal neck ROM, no LAD Cards: RRR, no murmur appreciated. +Reproducible left sternal pain Pulm: Comfortable on room air, clear to auscultation bilaterally Abd: Soft, nontender, nondistended Ext: Atraumatic. No LE edema. ROM intact. Strength 5/5 and equal bilaterally Vasc: Extremities WWP. Skin: Normal color, no rashes or lesions Neuro: A&Ox3, CN grossly intact, normal speech, motor/sensory grossly intact and symmetric Psych: Mood appropriate to situation Medical Decision Making - Medical Decision Making 12/17/17 19:17 Attempted to see patient, not in room. 12/17/17 20:27 Billie Sumner is a 72yo woman with multiple chronic medical conditions who presents to the ED with chronic reproducible chest pain similar to previous presentations over the past week. - Recently had labs, EKG, troponin that were all unremarkable - Pain is unchanged from previously. No associated symptoms concerning for new onset of ACS - Tylenol and Maalox for symptom relief - Will reassess 12/17/17 22:27 - Received acetaminophen with some improvement in symptoms. Refused maalox - May discharge home when Ms Sumner has a ride available Discussed with Dr Miller. Georgina Vernon PGY1 *DC/Admit/Observation/Transfer Diagnosis at time of Disposition: Atypical chest pain - Discharge Dispostion Disposition: HOME Condition at time of disposition: Stable Decision to Admit order: No - Referrals - Patient Instructions Printed Discharge Instructions: DI for Atypical Chest Pain Additional Instructions: Discharge Instructions: - You were seen in the ED for chronic chest pain, and your symptoms improved with acetaminophen (Tylenol) - Please return to the ED if you have worsening, severe chest pain, especially if it is crushing or tight, and if it is accompanied by nausea/vomiting, shortness of breath, lightheadedness, or radiation to the arms or jaw. - Post Discharge Activity
[2017-12-17] MEDS ORDERED: MAG HYDROX/AL HYDROX/SIMETH 30 ML UNIT-DOSE CUP PO ONE (20:23)
[2017-12-17] MEDS ORDERED: ACETAMINOPHEN 500 MG TABLET (FP) PO ONE (20:23)
--- NOTE | 2017-12-17 20:48 | PDOC ---
Attending Attestation - Resident Resident Name: Georgina Vernon - ED Attending Attestation I have performed the following: I have examined & evaluated the patient, The case was reviewed & discussed with the resident, I agree w/resident's findings & plan - HPI HPI: 12/17/17 20:46 Pt returns for chest discomfort. It is well known that pt comes to the ER to spend the night because she doesn't feel comfortable sitting at home alone, once her HHAise leaves for the night
[2017-12-17] MEDS ORDERED: ACETAMINOPHEN 325 MG TABLET (FP) ONE (20:56)
[2017-12-17] MEDS ORDERED: MAG HYDROX/AL HYDROX/SIMETH 30 ML UNIT-DOSE CUP ONE (20:56)
--- NOTE | 2017-12-18 11:57 | EKG ---
Test Reason : Blood Pressure : / mmHG Vent. Rate : 070 BPM Atrial Rate : 070 BPM P-R Int : 138 ms QRS Dur : 082 ms QT Int : 398 ms P-R-T Axes : 014 016 029 degrees QTc Int : 429 ms NORMAL SINUS RHYTHM NORMAL ECG WHEN COMPARED WITH ECG OF 16-DEC-2017 01:15, NO SIGNIFICANT CHANGE WAS FOUND Confirmed by J LUIS POWELL MD ([id number]) on 12/18/2017 11:57:27 AM Referred By: Confirmed By:J LUIS POWELL MD
== END 2017-12-17 22:38 | disposition home or self-care (01) ==
LOC: JER 18:43
DX: R07.89 Other chest pain (principal); D64.9 Anemia, unspecified; J44.9 Chronic obstructive pulmonary disease, unspecified; I10 Essential (primary) hypertension; K21.9 Gastro-esophageal reflux disease without esophagitis; E11.9 Type 2 diabetes mellitus without complications; F41.8 Other specified anxiety disorders; F32.9 Major depressive disorder, single episode, unspecified; I69.810 Attention and concentration deficit following other cerebrovascular disease; I69.893 Ataxia following other cerebrovascular disease; Z86.011 Personal history of benign neoplasm of the brain; Z96.653 Presence of artificial knee joint, bilateral
CPT/HCPCS: 93005; 93010; 99282-25

== ENCOUNTER 2017-12-18 18:34 | Emergency (ER) | payer OTHER ==
--- NOTE | 2017-12-18 19:04 | PDOC ---
Rapid Medical Evaluation Chief Complaint: Chest Pain Time Seen by Provider: 12/18/17 19:01 Medical Evaluation: Allergies Allergy/AdvReac Type Severity Reaction Status Date / Time aspirin Allergy Severe "NERVOUS" Verified 12/17/17 18:48 morphine Allergy Severe "ANXIETY-DE Verified 12/17/17 18:48 SPERATION" 12/18/17 19:02 I have performed a brief in-person evaluation of this patient. The patient presents with a chief complaint of: CP/ Headache/dizziness started today ( well known to this ER , 3-4visits weekly)no fevers/ no cough Pertinent physical exam findings: pale and appears malaisic , some SOB I have ordered the following: EKG The patient will proceed to the ED for further evaluation 12/18/17 19:03 12/18/17 19:06 Discharge Disposition - Referrals Referrals: Waldo Mabry MD [Primary Care Provider] - - Patient Instructions - Post Discharge Activity
[2017-12-18 19:06] VITALS: BMI 34.2
--- NOTE | 2017-12-18 20:20 | PDOC ---
History of Present Illness - General Chief Complaint: Lightheaded Stated Complaint: CHEST PAIN Time Seen by Provider: 12/18/17 19:01 - History of Present Illness Initial Comments: Billie Sumner is a 72yo well known to the ED, seen yesterday, who presents complaining of chronic chest pain and headache. She additionally reports constipation for 2 days. She denies any other complaints and also denies any changes to the quality, intensity, or location of her chest pain today. She requests acetaminophen. Past History - Past Medical History Allergies/Adverse Reactions: Allergies Allergy/AdvReac Type Severity Reaction Status Date / Time aspirin Allergy Severe "NERVOUS" Verified 12/18/17 19:06 morphine Allergy Severe "ANXIETY-DE Verified 12/18/17 19:06 SPERATION" Home Medications: Ambulatory Orders Escitalopram Oxalate [Lexapro -] 10 mg PO DAILY 03/10/16 Amlodipine Besylate 5 mg PO DAILY 11/06/17 Betamethasone/Propylene Glyc [Betamethasone Dp Aug 0.05% Crm] 0.05 applic TP BID 11/06/17 Divalproex Sodium [Depakote] 500 mg PO BID 11/06/17 Famotidine 20 mg PO BID 11/06/17 Cefpodoxime Proxetil [Vantin -] 100 mg PO BID #14 tablet 11/07/17 Docusate Sodium [Colace] 100 mg PO BID #1 capsule 11/07/17 Ferrous Sulfate [Feosol] 325 mg PO BID #60 tablet 11/07/17 Lisinopril [Prinivil] 5 mg PO DAILY #30 tablet 11/07/17 Anemia: Yes Asthma: No Cancer: No Cardiac Disorders: Yes (Chest pain) 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, baseline confusion and dizziness) COPD: Yes CHF: No DVT: No Dementia: No Diabetes: Yes GI Disorders: Yes (gerd, gastric ulcer, dysphagia) Disorders: Yes (kidney stone in the past) HTN: Yes Hypercholesterolemia: Yes Liver Disease: No Psychiatric Problems: Yes (ANXIETY DEPRESSION) Seizures: Yes (S/P craniotomy for benign tumor - on Depakote for seizure prophylaxis) Thyroid Disease: No - Surgical History Abdominal Surgery: Yes Appendectomy: No Cardiac Surgery: No Cholecystectomy: Yes Lung Surgery: No Neurologic Surgery: Yes (removal left meningioma, craniotomy) Orthopedic Surgery: Yes (bilat knee replacement) - Immunization History Td Vaccination: Yes TDAP Vaccination: No Immunization Up to Date: No - Suicide/Smoking/Psychosocial Hx Smoking Status: No Smoking History: Never smoked Have you smoked in the past 12 months: No Number of Cigarettes Smoked Daily: 0 Cigars Per Day: 0 Hx Alcohol Use: No Drug/Substance Use Hx: No Substance Use Type: None Hx Substance Use Treatment: No Review of Systems - Review of Systems Comments:: General: No fevers, no chills, no weight or appetite change, no malaise HEENT: No changes in vision, no changes in hearing, no congestion, no sore throat CV: No chest pain, no palpitations, no LE edema Pulm: No SOB, no cough, no wheezing GI: No nausea or vomiting, +constipation : No frequency, no urgency, no dysuria Musc: No back pain, no joint swelling, no recent injury Skin: No rash, no lesions, no erythema Endo: No excessive thirst, no heat/cold intolerance Heme: No unusual bruising or bleeding, no swollen glands Neuro: No syncope, no numbness/tingling, no focal weakness Vasc: No claudication Psych: No recent change in mood, no SI or HI *Physical Exam - Vital Signs Last Vital Signs Temp Pulse Resp BP Pulse Ox 98.6 F 76 18 117/54 L 95 12/18/17 19:03 12/18/17 19:03 12/18/17 19:03 12/18/17 19:03 12/18/17 19:03 - Physical Exam Comments: General: Comfortable, no acute distress HEENT: PERRL, EOMI, MMM, voice normal, normal neck ROM, no LAD Cards: RRR, no murmur appreciated. Reproducible pain to left of mid-sternum Pulm: Comfortable on room air, clear to auscultation bilaterally Abd: Soft, nondistended. Mild epigastric/LUQ tenderness : No CVA tenderness Ext: Atraumatic. No LE edema. ROM intact. Vasc: Extremities WWP. Skin: Normal color, no rashes or lesions Neuro: A&Ox3, CN grossly intact, normal speech, motor/sensory grossly intact and symmetric Psych: Mood appropriate to situation Medical Decision Making - Medical Decision Making 12/18/17 20:24 Billie Sumner is a 72yo woman well known to the ED, seen several times this week already including yesterday evening, who presents with her chronic chest pain and headache. - Exam unchanged since yesterday - EKG completed in [facility]. normal sinus, HR 75, no ST or t-wave changes - 1000mg acetaminophen PO for pain - Will reassess 12/18/17 21:47 - Feels better after receiving acetaminophen - Requesting dinner. - OK to discharge home when Ms Sumner has a ride available. Discussed with Dr Gallagher. Georgina Vernon PGY1 12/18/17 21:47 *DC/Admit/Observation/Transfer Diagnosis at time of Disposition: Chronic headache, Musculoskeletal chest pain - Discharge Dispostion Disposition: HOME Condition at time of disposition: Stable Decision to Admit order: No - Referrals Referrals: Waldo Mabry MD [Primary Care Provider] - - Patient Instructions Additional Instructions: Discharge Instructions: - You were seen in the ED for chronic chest pain, and your symptoms improved with acetaminophen (Tylenol) - Please return to the ED if you have worsening, severe chest pain, especially if it is crushing or tight, and if it is accompanied by nausea/vomiting, shortness of breath, lightheadedness, or radiation to the arms or jaw. - Post Discharge Activity
[2017-12-18] MEDS ORDERED: ACETAMINOPHEN 500 MG TABLET (FP) PO ONE (20:27)
--- NOTE | 2017-12-18 20:31 | PDOC ---
Attending Attestation - HPI HPI: 12/18/17 20:42 The patient is a 72 year old female, with a significant past medical history of HLD, HTN, COPD, CVA (w/residual altered balance), NIDDM, seizures (2/2 to benign meningioma craniotomy), who presents to the emergency department with, chest pain, headache and constipation. She describes her chest pain as constant and non radiating. She notes this is similar to her previous episodes which she was evaluated for most recently yesterday and 2 days ago (12/16 and 12/17), lab work was done and unremarkable at this time. Patient notes her home health aid is only around during the days and she becomes worried at night. While in the ED , the patient requests Tylenol and a sandwich. She denies any palpitations or shortness of breath. Patient denies any recent weakness, numbness, tingling, syncope. She denies recent fevers, chills, headache or dizziness. She denies recent nausea, vomit, diarrhea or constipation. She denies recent dysuria, frequency, urgency or hematuria. Allergies: Aspirin. Morphine. Past surgical history: Craniotomy. Social history: Nonsmoker. Denies EtOH use and recreational drug use. Primary Care Physician: Dr. Mabry - Physicial Exam PE: 12/18/17 20:42 GENERAL: Well developed, well nourished. Awake and alert. No acute distress. +HEENT: Mild anterior nosebleed. Normocephalic, atraumatic. PERRLA, EOMI. No conjunctival pallor. Sclera are non-icteric. Moist mucous membranes. Oropharynx is clear. NECK: Supple. Full ROM. No JVD. Carotid pulses 2+ and symmetric, without bruits. No thyromegaly. No lymphadenopathy. CARDIOVASCULAR: Regular rate and rhythm. No murmurs, rubs, or gallops. Distal pulses are 2+ and symmetric. PULMONARY: No evidence of respiratory distress. Lungs clear to auscultation bilaterally. No wheezing, rales or rhonchi. ABDOMINAL: Soft. Non-tender. Non-distended. No rebound or guarding. No organomegaly. Normoactive bowel sounds. MUSCULOSKELETAL Normal range of motion at all joints. No bony deformities or tenderness. No CVA tenderness. EXTREMITIES: No cyanosis. No clubbing. No edema. No calf tenderness. SKIN: Warm and dry. Normal capillary refill. No rashes. No jaundice. NEUROLOGICAL: Alert and oriented X3. appropriate. Cranial nerves 2-12 intact. No deficits to light touch and temperature in face, upper extremities and lower extremities. No motor deficits in the in face, upper extremities and lower extremities. Normoreflexic in the upper and lower extremities. Normal speech. Toes are down- going bilaterally. Gait is normal without ataxia. +PSYCHIATRIC: Anxious. Cooperative. Good eye contact. Appropriate mood and affect. <Caleb Canales - Last Filed: 12/18/17 20:42> - Resident Resident Name: Georgina Vernon - ED Attending Attestation I have performed the following: I have examined & evaluated the patient, The case was reviewed & discussed with the resident, I agree w/resident's findings & plan, Exceptions are as noted - HPI HPI: 12/18/17 20:29 72 yo female is well known to our ER and again p/w anterior left sided chest pain. This is her usual presentation - Medical Decision Making 12/18/17 21:53 ekg is nsr and unchanged from prior imp chronic atypical chest pain 12/18/17 23:13 <Florinda Gallagher - Last Filed: 12/18/17 23:14> Attestations - Attestations 12/18/17 20:42 Documentation prepared by Caleb Canales, acting as hospitalist medical director for Florinda Gallagher MD. <Caleb Canales - Last Filed: 12/18/17 20:42>
[2017-12-18 23:53] VITALS: BP 118/74; PULSE 78; TEMP 98
--- NOTE | 2017-12-19 12:08 | EKG ---
Test Reason : Blood Pressure : / mmHG Vent. Rate : 075 BPM Atrial Rate : 075 BPM P-R Int : 130 ms QRS Dur : 072 ms QT Int : 386 ms P-R-T Axes : 014 -06 017 degrees QTc Int : 431 ms NORMAL SINUS RHYTHM NORMAL ECG WHEN COMPARED WITH ECG OF 17-DEC-2017 18:54, NO SIGNIFICANT CHANGE WAS FOUND Confirmed by MD JARON, UMBERTO ([id number]) on 12/19/2017 12:08:29 PM Referred By: Confirmed By:UMBERTO SALMERON MD
== END 2017-12-18 23:52 | disposition home or self-care (01) ==
LOC: JER 18:34
DX: R07.89 Other chest pain (principal); D64.9 Anemia, unspecified; J44.9 Chronic obstructive pulmonary disease, unspecified; I10 Essential (primary) hypertension; E78.00 Pure hypercholesterolemia, unspecified; F41.8 Other specified anxiety disorders; F32.9 Major depressive disorder, single episode, unspecified; Z86.011 Personal history of benign neoplasm of the brain; Z87.19 Personal history of other diseases of the digestive system; I69.810 Attention and concentration deficit following other cerebrovascular disease; I69.893 Ataxia following other cerebrovascular disease; Z96.653 Presence of artificial knee joint, bilateral
CPT/HCPCS: 93005; 93010; 99282-25

== ENCOUNTER 2017-12-19 17:46 | Emergency (ER) | payer OTHER ==
[2017-12-19 18:15] VITALS: PULSE 80; BMI 33.2
--- NOTE | 2017-12-19 18:15 | PDOC ---
Rapid Medical Evaluation Chief Complaint: Chest Pain Time Seen by Provider: 12/19/17 18:13 Medical Evaluation: Allergies Allergy/AdvReac Type Severity Reaction Status Date / Time aspirin Allergy Severe "NERVOUS" Verified 12/18/17 19:06 morphine Allergy Severe "ANXIETY-DE Verified 12/18/17 19:06 SPERATION" 12/19/17 18:14 I have performed a brief in person evaluation of this patient. This patient presents with a CC of: CP Pt is a 72 Yo female who states that she has CP x 1 day. PE: Skin: Clear Lungs: Clear Heart: RRR Abd: No pain MS: Moves all extremities without difficulty. Neuro: Alert and oriented Psych: Appropriate affect I have ordered an EKG at triage. The patient will proceed to the ED for further evaluation. Discharge Disposition - Diagnosis Chest pain Qualifiers: Chest pain type: unspecified Qualified Code(s): R07.9 - Chest pain, unspecified - Referrals Referrals: Waldo Mabry MD [Primary Care Provider] - - Patient Instructions - Post Discharge Activity
--- NOTE | 2017-12-19 18:27 | PDOC ---
History of Present Illness - General History Source: Patient Exam Limitations: No Limitations <Francine Ross - Last Filed: 12/19/17 18:31> <ElliottFlorinda Nicolasa - Last Filed: 12/19/17 22:26> - General Chief Complaint: Chest Pain Stated Complaint: CHEST PAIN Time Seen by Provider: 12/19/17 18:13 - History of Present Illness Initial Comments: 12/19/17 18:31 The patient is a 72 year old female, with a significant past medical history of HLD, HTN, COPD, CVA (w/residual altered balance), NIDDM, seizures (2/2 to benign meningioma craniotomy), who presents to the emergency department with chest pain. She describes her chest pain as constant and non radiating. She notes this is similar to her previous episodes which she was evaluated for yesterday 12/18, as well as on 12/16 and 12/17. The patient's lab work was done and unremarkable last night. Patient notes her home health aid is only around during the days and she becomes worried at night. She denies any headache, palpitations or shortness of breath. Patient denies any recent weakness, numbness, tingling, syncope. She denies recent fevers, chills, or dizziness. She denies recent nausea, vomit, diarrhea or constipation. She denies recent dysuria, frequency, urgency or hematuria. Allergies: Aspirin. Morphine. Past surgical history: Craniotomy. Social history: Nonsmoker. Denies EtOH use and recreational drug use. Primary Care Physician: Dr. Mabry (Francine Ross) Past History <Francine Ross - Last Filed: 12/19/17 18:31> - Past Medical History Anemia: Yes Asthma: No Cancer: No Cardiac Disorders: Yes (Chest pain) 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, baseline confusion and dizziness) COPD: Yes CHF: No DVT: No Dementia: No Diabetes: Yes GI Disorders: Yes (gerd, gastric ulcer, dysphagia) Disorders: Yes (kidney stone in the past) HTN: Yes Hypercholesterolemia: Yes Liver Disease: No Psychiatric Problems: Yes (ANXIETY DEPRESSION) Seizures: Yes (S/P craniotomy for benign tumor - on Depakote for seizure prophylaxis) Thyroid Disease: No - Surgical History Abdominal Surgery: Yes Appendectomy: No Cardiac Surgery: No Cholecystectomy: Yes Lung Surgery: No Neurologic Surgery: Yes (removal left meningioma, craniotomy) Orthopedic Surgery: Yes (bilat knee replacement) - Immunization History Td Vaccination: Yes TDAP Vaccination: No Immunization Up to Date: No - Suicide/Smoking/Psychosocial Hx Smoking Status: No Smoking History: Never smoked Have you smoked in the past 12 months: No Number of Cigarettes Smoked Daily: 0 Cigars Per Day: 0 Hx Alcohol Use: No Drug/Substance Use Hx: No Substance Use Type: None Hx Substance Use Treatment: No <Florinda Gallagher - Last Filed: 12/19/17 22:26> - Past Medical History Allergies/Adverse Reactions: Allergies Allergy/AdvReac Type Severity Reaction Status Date / Time aspirin Allergy Severe "NERVOUS" Verified 12/19/17 18:15 morphine Allergy Severe "ANXIETY-DE Verified 12/19/17 18:15 SPERATION" Home Medications: Ambulatory Orders Escitalopram Oxalate [Lexapro -] 10 mg PO DAILY 03/10/16 Amlodipine Besylate 5 mg PO DAILY 11/06/17 Betamethasone/Propylene Glyc [Betamethasone Dp Aug 0.05% Crm] 0.05 applic TP BID 11/06/17 Divalproex Sodium [Depakote] 500 mg PO BID 11/06/17 Famotidine 20 mg PO BID 11/06/17 Cefpodoxime Proxetil [Vantin -] 100 mg PO BID #14 tablet 11/07/17 Docusate Sodium [Colace] 100 mg PO BID #1 capsule 11/07/17 Ferrous Sulfate [Feosol] 325 mg PO BID #60 tablet 11/07/17 Lisinopril [Prinivil] 5 mg PO DAILY #30 tablet 11/07/17 Cardiac Specific PMH - Complaint Specific PMHX Pacemaker: No <Florinda Gallagher - Last Filed: 12/19/17 22:26> Review of Systems - Review of Systems Able to Perform ROS?: Yes <Francine Ross - Last Filed: 12/19/17 18:31> <Florinda Gallagher - Last Filed: 12/19/17 22:26> - Review of Systems Comments:: 12/19/17 18:33 CONSTITUTIONAL: Absent: fever, chills, diaphoresis, generalized weakness, malaise, loss of appetite HEENT: Absent: rhinorrhea, nasal congestion, throat pain, throat swelling, difficulty swallowing, mouth swelling, ear pain, eye pain, visual Changes CARDIOVASCULAR: (+) chest pain, Absent: syncope, palpitations, irregular heart rate, lightheadedness, peripheral edema RESPIRATORY: Absent: cough, shortness of breath, dyspnea with exertion, orthopnea, wheezing, stridor, hemoptysis GASTROINTESTINAL: Absent: abdominal pain, abdominal distension, nausea, vomiting, diarrhea, constipation, melena, hematochezia GENITOURINARY: Absent: dysuria, frequency, urgency, hesitancy, hematuria, flank pain, genital pain MUSCULOSKELETAL: Absent: myalgia, arthralgia, joint swelling SKIN: Absent: rash, itching, pallor HEMATOLOGIC/IMMUNOLOGIC: Absent: easy bleeding, easy bruising, lymphadenopathy, frequent infections ENDOCRINE: Absent: unexplained weight gain, unexplained weight loss, heat intolerance, cold intolerance NEUROLOGIC: Absent: headache, focal weakness or paresthesias, dizziness, unsteady gait, seizure, mental status changes, bladder or bowel incontinence PSYCHIATRIC: Absent: anxiety, depression, suicidal or homicidal ideation, hallucinations. (Francine Ross) *Physical Exam <Francine Ross - Last Filed: 12/19/17 18:31> <Florinda Gallagher - Last Filed: 12/19/17 22:26> - Vital Signs Last Vital Signs Temp Pulse Resp BP Pulse Ox 98.7 F 80 18 113/53 L 98 12/19/17 18:12 12/19/17 18:12 12/19/17 18:12 12/19/17 18:12 12/19/17 18:12 - Physical Exam Comments: 12/19/17 18:33 GENERAL: Well developed, well nourished. Awake and alert. No acute distress. HEENT: Normocephalic, atraumatic. PERRLA, EOMI. No conjunctival pallor. Sclera are non- icteric. Moist mucous membranes. Oropharynx is clear. NECK: Supple. Full ROM. No JVD. Carotid pulses 2+ and symmetric, without bruits. No thyromegaly. No lymphadenopathy. CARDIOVASCULAR: Regular rate and rhythm. No murmurs, rubs, or gallops. Distal pulses are 2+ and symmetric. PULMONARY: No evidence of respiratory distress. Lungs clear to auscultation bilaterally. No wheezing, rales or rhonchi. ABDOMINAL: Soft. Non-tender. Non-distended. No rebound or guarding. No organomegaly. Normoactive bowel sounds. MUSCULOSKELETAL Normal range of motion at all joints. No bony deformities or tenderness. No CVA tenderness. EXTREMITIES: No cyanosis. No clubbing. No edema. No calf tenderness. SKIN: Warm and dry. Normal capillary refill. No rashes. No jaundice. NEUROLOGICAL: Alert, awake, appropriate. Cranial nerves 2-12 intact. Normoreflexic in the upper and lower extremities. Normal speech. Toes are down-going bilaterally. Gait is normal without ataxia. PSYCHIATRIC: Cooperative. Good eye contact. Appropriate mood and affect. (Francine Ross) *DC/Admit/Observation/Transfer <Francine Ross - Last Filed: 12/19/17 18:31> <Florinda Gallagher - Last Filed: 12/19/17 22:26> Diagnosis at time of Disposition: Chest pain Qualifiers: Chest pain type: unspecified Qualified Code(s): R07.9 - Chest pain, unspecified - Discharge Dispostion Disposition: HOME Condition at time of disposition: Improved - Referrals Referrals: Waldo Mabry MD [Primary Care Provider] - - Patient Instructions Printed Discharge Instructions: DI for Atypical Chest Pain Additional Instructions: please follow up with your regular physician - Post Discharge Activity - Attestations Scribe Attestion: 12/19/17 18:34 Documentation prepared by Francine Ross, acting as site medical director for Florinda Gallagher MD (Francine Ross)
[2017-12-19] MEDS ORDERED: ACETAMINOPHEN 325 MG TABLET (FP) PO ONE (22:28)
[2017-12-19] MEDS ORDERED: ACETAMINOPHEN 325 MG TABLET (FP) ONE (22:44)
[2017-12-20 03:53] VITALS: BP 115/60; TEMP 98.2
--- NOTE | 2017-12-20 09:54 | EKG ---
Test Reason : Blood Pressure : / mmHG Vent. Rate : 072 BPM Atrial Rate : 072 BPM P-R Int : 160 ms QRS Dur : 080 ms QT Int : 400 ms P-R-T Axes : 010 007 025 degrees QTc Int : 438 ms NORMAL SINUS RHYTHM NORMAL ECG WHEN COMPARED WITH ECG OF 18-DEC-2017 19:05, NO SIGNIFICANT CHANGE WAS FOUND Confirmed by ANNITA VENTURA MD ([id number]) on 12/20/2017 9:54:31 AM Referred By: Confirmed By:ANNITA VENTURA MD
== END 2017-12-19 21:15 | disposition home or self-care (01) ==
LOC: JER 17:46
DX: R07.9 Chest pain, unspecified (principal); D64.9 Anemia, unspecified; J44.9 Chronic obstructive pulmonary disease, unspecified; I10 Essential (primary) hypertension; E78.00 Pure hypercholesterolemia, unspecified; E11.9 Type 2 diabetes mellitus without complications; F41.8 Other specified anxiety disorders; F32.9 Major depressive disorder, single episode, unspecified; Z87.19 Personal history of other diseases of the digestive system; Z87.442 Personal history of urinary calculi; Z86.011 Personal history of benign neoplasm of the brain; I69.810 Attention and concentration deficit following other cerebrovascular disease; I69.893 Ataxia following other cerebrovascular disease; Z96.653 Presence of artificial knee joint, bilateral
CPT/HCPCS: 93005; 93010; 99283-25

== ENCOUNTER 2017-12-20 17:21 | Emergency (ER) | payer OTHER ==
[2017-12-20 17:33] VITALS: BP 153/61; PULSE 80; TEMP 98.6; BMI 33.2
[2017-12-20] MEDS ORDERED: ACETAMINOPHEN 325 MG TABLET (FP) PO ONE ×2 (17:33→20:52)
--- NOTE | 2017-12-20 17:36 | PDOC ---
Rapid Medical Evaluation Chief Complaint: Headache Time Seen by Provider: 12/20/17 17:33 Medical Evaluation: Allergies Allergy/AdvReac Type Severity Reaction Status Date / Time aspirin Allergy Severe "NERVOUS" Verified 12/20/17 17:33 morphine Allergy Severe "ANXIETY-DE Verified 12/20/17 17:33 SPERATION" Vital Signs Temp Pulse Resp BP Pulse Ox 98.6 F 80 17 153/61 100 12/20/17 17:31 12/20/17 17:31 12/20/17 17:31 12/20/17 17:31 12/20/17 17:31 12/20/17 17:34 Pt to proceed : chest and headache since this afternoon, requesting tylenol pt on exam: vss, reproducible left sided chest pain Pt ordered for: tylenol, ekg pt to proceed to the ED Discharge Disposition - Diagnosis Headache - Referrals - Patient Instructions - Post Discharge Activity
[2017-12-20] MEDS ORDERED: ACETAMINOPHEN 325 MG TABLET (FP) ONE ×2 (18:04→20:53)
--- NOTE | 2017-12-20 20:45 | PDOC ---
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 Pain is constant in nature and worse with body movements. Also mentions having generalized headache along with chest pain from today; GALLARDO is similar to prior headaches and states does not bother her as much as the chest pain. Of note, patient has been seen in ED multiple times for the same complaint. Patient is unsure of her family history. Denies smoking. Denies fever, chills, cough, URI sxs, SOB, abd pain, n/v, numbness, tingling, weakness of extremities, visual or speech changes. 12/20/17 20:40 Past History - Past Medical History Allergies/Adverse Reactions: Allergies Allergy/AdvReac Type Severity Reaction Status Date / Time aspirin Allergy Severe "NERVOUS" Verified 12/20/17 17:33 morphine Allergy Severe "ANXIETY-DE Verified 12/20/17 17:33 SPERATION" Home Medications: Ambulatory Orders Escitalopram Oxalate [Lexapro -] 10 mg PO DAILY 03/10/16 Amlodipine Besylate 5 mg PO DAILY 11/06/17 Betamethasone/Propylene Glyc [Betamethasone Dp Aug 0.05% Crm] 0.05 applic TP BID 11/06/17 Divalproex Sodium [Depakote] 500 mg PO BID 11/06/17 Famotidine 20 mg PO BID 11/06/17 Cefpodoxime Proxetil [Vantin -] 100 mg PO BID #14 tablet 11/07/17 Docusate Sodium [Colace] 100 mg PO BID #1 capsule 11/07/17 Ferrous Sulfate [Feosol] 325 mg PO BID #60 tablet 11/07/17 Lisinopril [Prinivil] 5 mg PO DAILY #30 tablet 11/07/17 Anemia: Yes Asthma: No Cancer: No Cardiac Disorders: Yes (Chest pain) 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, baseline confusion and dizziness) COPD: Yes CHF: No DVT: No Dementia: No Diabetes: Yes GI Disorders: Yes (gerd, gastric ulcer, dysphagia) Disorders: Yes (kidney stone in the past) HTN: Yes Hypercholesterolemia: Yes Liver Disease: No Psychiatric Problems: Yes (ANXIETY DEPRESSION) Seizures: Yes (S/P craniotomy for benign tumor - on Depakote for seizure prophylaxis) Thyroid Disease: No - Surgical History Abdominal Surgery: Yes Appendectomy: No Cardiac Surgery: No Cholecystectomy: Yes Lung Surgery: No Neurologic Surgery: Yes (removal left meningioma, craniotomy) Orthopedic Surgery: Yes (bilat knee replacement) - Immunization History Td Vaccination: Yes TDAP Vaccination: No Immunization Up to Date: No - Suicide/Smoking/Psychosocial Hx Smoking Status: No Smoking History: Never smoked Have you smoked in the past 12 months: No Number of Cigarettes Smoked Daily: 0 Cigars Per Day: 0 Information on smoking cessation initiated: No Hx Alcohol Use: No Drug/Substance Use Hx: No Substance Use Type: None Hx Substance Use Treatment: No Review of Systems - Review of Systems Comments:: See HPI 12/20/17 20:44 Constitutional: No: Chills, Fever Respiratory: No: Cough, Shortness of Breath Cardiac (ROS): Yes: Chest Pain ABD/GI: No: Diarrhea, Nausea, Vomiting Neurological: Yes: Headache. No: Numbness, Tingling, Weakness *Physical Exam - Vital Signs Last Vital Signs Temp Pulse Resp BP Pulse Ox 98.6 F 80 17 153/61 100 12/20/17 17:31 12/20/17 17:31 12/20/17 17:31 12/20/17 17:31 12/20/17 17:31 - Physical Exam General Appearance: No: Apparent Distress Neck: positive: Supple Respiratory/Chest: positive: Chest Tender (+TTP along chest wall (along right and left anterior wall)), Lungs Clear, Normal Breath Sounds. negative: Respiratory Distress, Accessory Muscle Use, Labored Respiration, Crackles, Rales , Stridor, Wheezing Cardiovascular: positive: Regular Rhythm, Regular Rate, S1, S2. negative: Murmur Gastrointestinal/Abdominal: positive: Normal Bowel Sounds, Soft. negative: Tender, Distended, Guarding, Rebound Extremity: positive: Normal Inspection. negative: Pedal Edema, Calf Tenderness Neurologic: positive: Fully Oriented, Alert, Normal Mood/Affect Heart Score/ECG Review - ECG Intrepretation Comment:: EKG shows NSR at 79 bpm , no ischemic changes noted Compared to EKG from 12/19/17, there are no changes 12/20/17 22:06 ED Treatment Course - Medications Given in the ED: ED Medications Discontinued Medications Generic Name Dose Route Start Last Admin Trade Name Chance PRN Reason Stop Dose Admin Acetaminophen 650 mg 12/20/17 17:33 12/20/17 18:07 Tylenol - PO 12/20/17 17:34 650 mg ONCE ONE Administration Medical Decision Making - Medical Decision Making 72 y/o F presents with c/o GALLARDO and CP; patient has been in ED multiple times for similar complaints (most recent visit was yesterday). Her last stress test was which was negative and patient last saw the hanger 09/2017. Patient does have risk factors for ACS. Will obtain EKG, troponin. Could also be costochondritis given pain is reproducible and constant in nature; will also given PO Tylenol and try warm compresses. Unlikely PNA given no fever or cough. Patient with no risk factors for PE other than age (Wells score is 0). 12/20/17 20:48 Trop neg EKG nonischemic Patient reports improvement of her symptoms after taking Tylenol Patient has a hanger and states she will arrange for follow-up with both her hanger and PCP Stable for discharge 12/20/17 22:06 *DC/Admit/Observation/Transfer Diagnosis at time of Disposition: Chest pain Qualifiers: Chest pain type: unspecified Qualified Code(s): R07.9 - Chest pain, unspecified Headache Qualifiers: Headache type: unspecified Headache chronicity pattern: chronic headache Intractability: not intractable Qualified Code(s): R51 - Headache - Discharge Dispostion Disposition: HOME Condition at time of disposition: Good Decision to Admit order: No - Referrals Referrals: Waldo Mabry MD [Primary Care Provider] - 1 week - Patient Instructions Printed Discharge Instructions: DI for Headache, DI for Chest Pain Additional Instructions: Thank you for choosing [facility]. It was a pleasure taking care of you. Your chest pain is likely musculoskeletal in nature. Warm compresses may also help with pain. You may take Tylenol 650 mg every 4 hours by mouth as needed for mild to moderate pain. Do not take more than 4000 mg of Tylenol in 1 day. Be sure to follow-up with your primary care doctor and hanger for further evaluation of your symptoms Return to the Emergency Department if your symptoms worsen or persist, you have fever, shortness of breath, chest pain, severe abdominal pain, vomiting, dizziness, weakness of extremities (arms and/or legs), changes in vision or walking or other concerning symptoms. Print Language: WOLOF - Post Discharge Activity
--- NOTE | 2017-12-20 22:04 | PDOC ---
*Physical Exam - Vital Signs Last Vital Signs Temp Pulse Resp BP Pulse Ox 98.6 F 80 17 153/61 100 12/20/17 17:31 12/20/17 17:31 12/20/17 17:31 12/20/17 17:31 12/20/17 17:31 ED Treatment Course - ADDITIONAL ORDERS Additional order review: Laboratory Results 12/20/17 21:10 Troponin I < 0.02 - Medications Given in the ED: ED Medications Discontinued Medications Generic Name Dose Route Start Last Admin Trade Name Chance PRN Reason Stop Dose Admin Acetaminophen 650 mg 12/20/17 17:33 12/20/17 18:07 Tylenol - PO 12/20/17 17:34 650 mg ONCE ONE Administration Acetaminophen 325 mg 12/20/17 20:52 12/20/17 21:16 Tylenol - PO 12/20/17 20:53 325 mg ONCE ONE Administration Medical Decision Making - Medical Decision Making 12/20/17 22:02 72F with multiple cardiovascular risk factors here complaining of chest pain, typical of prior recent visits unchanged in nature GENERAL: [The patient is awake, alert, and fully oriented, in no acute distress. ] HEAD: [Normal with no signs of trauma.] EYES: [Pupils equal, round and reactive to light, extraocular movements intact, sclera anicteric, conjunctiva clear.] EXTREMITIES: [Normal range of motion, no edema.] NEUROLOGICAL: [Normal speech, normal gait.] PSYCH: [Normal mood, normal affect.] SKIN: [Warm, Dry, normal turgor, no rashes or lesions noted.] CP is triggered by palpation and reproducible ekg non-ischemic troponin negative likely continuation of chronic chest pain *DC/Admit/Observation/Transfer Diagnosis at time of Disposition: Chest pain Qualifiers: Chest pain type: unspecified Qualified Code(s): R07.9 - Chest pain, unspecified Headache Qualifiers: Headache type: unspecified Headache chronicity pattern: chronic headache Intractability: not intractable Qualified Code(s): R51 - Headache - Discharge Dispostion Disposition: HOME Condition at time of disposition: Good - Referrals Referrals: Waldo Mabry MD [Primary Care Provider] - 1 week - Patient Instructions Printed Discharge Instructions: DI for Headache, DI for Chest Pain Additional Instructions: Thank you for choosing [facility]. It was a pleasure taking care of you. Your chest pain is likely musculoskeletal in nature. Warm compresses may also help with pain. You may take Tylenol 650 mg every 4 hours by mouth as needed for mild to moderate pain. Do not take more than 4000 mg of Tylenol in 1 day. Return to the Emergency Department if your symptoms worsen or persist, you have fever, shortness of breath, chest pain, severe abdominal pain, vomiting, dizziness, weakness of extremities (arms and/or legs), changes in vision or walking or other concerning symptoms. - Post Discharge Activity
--- NOTE | 2017-12-21 11:08 | EKG ---
Test Reason : Blood Pressure : / mmHG Vent. Rate : 079 BPM Atrial Rate : 079 BPM P-R Int : 154 ms QRS Dur : 078 ms QT Int : 388 ms P-R-T Axes : 040 007 036 degrees QTc Int : 444 ms NORMAL SINUS RHYTHM NORMAL ECG WHEN COMPARED WITH ECG OF 19-DEC-2017 21:42, NO SIGNIFICANT CHANGE WAS FOUND Confirmed by TERENCE GARCIA MD ([id number]) on 12/21/2017 11:08:21 AM Referred By: Confirmed By:TERENCE GARCIA MD
== END 2017-12-20 23:06 | disposition home or self-care (01) ==
LOC: JER 17:21
DX: R07.9 Chest pain, unspecified (principal); R51 Headache; E78.5 Hyperlipidemia, unspecified; I10 Essential (primary) hypertension; J44.9 Chronic obstructive pulmonary disease, unspecified; Z86.73 Personal history of transient ischemic attack (TIA), and cerebral infarction without residual deficits; E11.9 Type 2 diabetes mellitus without complications; F41.8 Other specified anxiety disorders
CPT/HCPCS: 36415; 84484; 93005; 93010; 99281-25

== ENCOUNTER 2017-12-23 17:29 | Emergency (ER) | payer OTHER ==
[2017-12-23 17:47] VITALS: BMI 33.2
[2017-12-23] MEDS ORDERED: ACETAMINOPHEN 500 MG TABLET (FP) PO ONE (19:17)
--- NOTE | 2017-12-23 19:20 | PDOC ---
History of Present Illness - General Chief Complaint: Pain Stated Complaint: CHEST PAIN Time Seen by Provider: 12/23/17 19:13 History Source: Patient, Old Records Exam Limitations: No Limitations - History of Present Illness Initial Comments: 12/23/17 19:20 HISTORY OF PRESENT ILLNESS: This is a 72-year-old woman with past medical history of hyperlipidemia, hypertension, COPD, CVA with residual altered balance , diabetes, GERD and seizures status post craniotomy for benign meningioma who presents emergency Department with midsternal chest pain and headache. Patient has been seen and evaluated in this emergency department multiple times since December 14 of this year for similar complaints. Patient was most recently evaluated on 12/20 for similar complaints and had negative workup. Patient denies any change in the pain since previous evaluations. Patient denies fevers , chills, blurry vision, dizziness, shortness of breath, abdominal pain, nausea , vomiting, dysuria, hematuria, rectal bleeding, diarrhea. No recent travel or sick contacts. PAST MEDICAL HISTORY: See hpi SURGICAL HISTORY: Denies ALLERGIES: ASA, Morphine REVIEW OF SYSTEMS General/Constitutional: Denies fever or chills. Denies weakness, weight change. HEENT: Denies change in vision. Denies ear pain or discharge. Denies sore throat. Cardiovascular: Midsternal chest pain. Denies shortness of breath. Respiratory: Denies cough, wheezing, or hemoptysis. Gastrointestinal: Denies nausea, vomiting, diarrhea or constipation. Denies rectal bleeding. Genitourinary: Denies dysuria, frequency, or change in urination. Musculoskeletal: Denies joint or muscle swelling or pain. Denies neck or back pain. Skin and breasts: Denies rash or easy bruising. Neurologic: Frontal headache. Denies vertigo, loss of consciousness, or loss of sensation. Psychiatric: Denies depression or anxiety. Endocrine: Denies increased thirst. Denies abnormal weight change. Hematologic/Lymphatic: Denies anemia, easy bleeding, or history of blood clots. Allergic/Immunologic: Denies hives or skin allergy. Denies latex allergy. PHYSICAL EXAM General Appearance: Well-appearing, appropriately dressed. No apparent distress , no intoxication. HEENT: EOMI, PERRLA, normal ENT inspection, normal voice, TMs normal, pharynx normal. No conjunctival pallor. No photophobia, scleral icterus. Neck: Supple. Trachea midline. No tenderness, rigidity, carotid bruit, stridor , lymphadenopathy, or thyromegaly. Respiratory/Chest: Lungs CTAB. No shortness of breath, respiratory distress, accessory muscle use. No crackles, rales, rhonchi, stridor, wheezing, dullness. Left sided chest tenderness. Cardiovascular: RRR. S1, S2. No JVD, murmur, bradycardia, tachycardia. Vascular Pulses: Dorsalis-Pedis (R): 2+, Dorsalis-Pedis (L): 2+ Gastrointestinal/Abdominal: Normal bowel sounds. Abdomen soft, non-distended. No tenderness or rebound tenderness. No organomegaly, pulsatile mass, guarding, hernia, hepatomegaly, splenomegaly. Lymphatic: No adenopathy, tenderness. Musculoskeletal/Extremities: Normal inspection. FROM of all extremities, normal capillary refill. Pelvis Stable. No CVA tenderness. No tenderness to extremities, pedal edema, swelling, erythema or deformity. Integumentary: Appropriate color, dry, warm. No cyanosis, erythema, jaundice or rash Neurologic: surgical resident II-XII intact. Fully oriented, alert. Appropriate mood/affect. Motor strength 5/5. No appreciable EOM palsy, facial droop or sensory deficit. Ambulatory with walker. Past History - Past Medical History Allergies/Adverse Reactions: Allergies Allergy/AdvReac Type Severity Reaction Status Date / Time aspirin Allergy Severe "NERVOUS" Verified 12/23/17 17:47 morphine Allergy Severe "ANXIETY-DE Verified 12/23/17 17:47 SPERATION" Home Medications: Ambulatory Orders Escitalopram Oxalate [Lexapro -] 10 mg PO DAILY 03/10/16 Amlodipine Besylate 5 mg PO DAILY 11/06/17 Betamethasone/Propylene Glyc [Betamethasone Dp Aug 0.05% Crm] 0.05 applic TP BID 11/06/17 Divalproex Sodium [Depakote] 500 mg PO BID 11/06/17 Famotidine 20 mg PO BID 11/06/17 Cefpodoxime Proxetil [Vantin -] 100 mg PO BID #14 tablet 11/07/17 Docusate Sodium [Colace] 100 mg PO BID #1 capsule 11/07/17 Ferrous Sulfate [Feosol] 325 mg PO BID #60 tablet 11/07/17 Lisinopril [Prinivil] 5 mg PO DAILY #30 tablet 11/07/17 Anemia: Yes Asthma: No Cancer: No Cardiac Disorders: Yes (Chest pain) 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, baseline confusion and dizziness) COPD: Yes CHF: No DVT: No Dementia: No Diabetes: Yes GI Disorders: Yes (gerd, gastric ulcer, dysphagia) Disorders: Yes (kidney stone in the past) HTN: Yes Hypercholesterolemia: Yes Liver Disease: No Psychiatric Problems: Yes (ANXIETY DEPRESSION) Seizures: Yes (S/P craniotomy for benign tumor - on Depakote for seizure prophylaxis) Thyroid Disease: No - Surgical History Abdominal Surgery: Yes Appendectomy: No Cardiac Surgery: No Cholecystectomy: Yes Lung Surgery: No Neurologic Surgery: Yes (removal left meningioma, craniotomy) Orthopedic Surgery: Yes (bilat knee replacement) - Immunization History Td Vaccination: Yes TDAP Vaccination: No Immunization Up to Date: No - Suicide/Smoking/Psychosocial Hx Smoking Status: No Smoking History: Never smoked Have you smoked in the past 12 months: No Number of Cigarettes Smoked Daily: 0 Cigars Per Day: 0 Hx Alcohol Use: No Drug/Substance Use Hx: No Substance Use Type: None Hx Substance Use Treatment: No *Physical Exam - Vital Signs Last Vital Signs Temp Pulse Resp BP Pulse Ox 81 20 135/57 L 100 12/23/17 17:45 12/23/17 17:45 12/23/17 17:45 12/23/17 17:45 ED Treatment Course - LABORATORY CBC & Chemistry Diagram: 12/23/17 19:40 Medical Decision Making - Medical Decision Making 12/23/17 19:23 A/P: 72-year-old woman with mid sternal chest pain TTP to left sided ACW Lungs clear to auscultation bilaterally Respirations even and unlabored Regular rate and rhythm. S1 and S2 present. No murmurs, rub or gallop noted Abdomen soft nontender nondistended CNII-XII grossly intact This patient is well-known to this hospital with frequent visits for chest pain. X-ray performed on 12/14/17 reveals no acute pathology and no significant change from study done on 12/03/79. I will defer chest x-ray at this time. DDx: ACS, hypokalemia, costochondritis, less likely PE as Well's score-0, less likely PNA as VS normal, no respiratory distress and clear lungs EKG, bmp and cardiac profile. Likely discharge 12/23/17 20:23 Laboratory testing is unremarkable. EKG is unchanged from previous visits. Discharge. I discussed the physical exam findings, ancillary test results and final diagnoses with the patient. I answered all of the patient's questions. The patient was satisfied with the care received and felt comfortable with the discharge plan and treatment plan. The patient will call their primary care physician within 24 hours to arrange follow-up and will return to the Emergency Department with any new, persistent or worsening symptoms.
[2017-12-23 19:27] VITALS: BP 142/61; PULSE 72; TEMP 98.1
[2017-12-23] MEDS ORDERED: ACETAMINOPHEN 325 MG TABLET (FP) ONE (19:28)
--- NOTE | 2017-12-23 20:19 | PDOC ---
*Physical Exam - Vital Signs Last Vital Signs Temp Pulse Resp BP Pulse Ox 98.1 F 72 16 142/61 97 12/23/17 19:15 12/23/17 19:15 12/23/17 19:15 12/23/17 19:15 12/23/17 19:15 - Physical Exam Comments: 12/23/17 20:18 The patient was examined by [LARA Washington] under my direct supervision. I personally evaluated the patient. I concur with the above findings and the plan of care. ED Treatment Course - LABORATORY CBC & Chemistry Diagram: 12/23/17 19:40 - Medications Given in the ED: ED Medications Discontinued Medications Generic Name Dose Route Start Last Admin Trade Name Freq PRN Reason Stop Dose Admin Acetaminophen 975 mg 12/23/17 19:17 12/23/17 19:40 Tylenol - PO 12/23/17 19:18 975 mg ONCE ONE Administration
[2017-12-23 20:22] LABS: ANION GAP 7 MMOL/L (8-16); BLOOD UREA NITROGEN 17 mg/dL (7-18); CALCIUM 8.5 mg/dL (8.5-10.1); CHLORIDE 102 mmol/L (98-107); CO2 28 mmol/L (21-32); CREATININE 0.5 mg/dL (0.55-1.3); GLUCOSE,RANDOM 92 mg/dL (74-106); POTASSIUM 4.5 mmol/L (3.5-5.1); SODIUM 137 mmol/L (136-145)
--- NOTE | 2017-12-24 19:01 | EKG ---
Test Reason : Blood Pressure : / mmHG Vent. Rate : 081 BPM Atrial Rate : 081 BPM P-R Int : 156 ms QRS Dur : 074 ms QT Int : 394 ms P-R-T Axes : 045 012 040 degrees QTc Int : 457 ms NORMAL SINUS RHYTHM NORMAL ECG WHEN COMPARED WITH ECG OF 20-DEC-2017 21:15, NO SIGNIFICANT CHANGE WAS FOUND Confirmed by J LUIS POWELL MD ([id number]) on 12/24/2017 7:00:45 PM Referred By: Confirmed By:J LUIS POWELL MD
== END 2017-12-23 21:35 | disposition home or self-care (01) ==
LOC: JER 17:29
DX: R07.89 Other chest pain (principal); R51 Headache; I10 Essential (primary) hypertension; E11.9 Type 2 diabetes mellitus without complications; E78.00 Pure hypercholesterolemia, unspecified; F41.8 Other specified anxiety disorders; F32.9 Major depressive disorder, single episode, unspecified; J44.9 Chronic obstructive pulmonary disease, unspecified; I69.893 Ataxia following other cerebrovascular disease; I69.818 Other symptoms and signs involving cognitive functions following other cerebrovascular disease; Z87.19 Personal history of other diseases of the digestive system; Z87.442 Personal history of urinary calculi; Z86.011 Personal history of benign neoplasm of the brain; Z96.653 Presence of artificial knee joint, bilateral
CPT/HCPCS: 36415; 80048; 84484; 93005; 93010; 99281-25

== ENCOUNTER 2017-12-24 18:22 | Emergency (ER) | payer OTHER ==
[2017-12-24 18:44] VITALS: TEMP 98.7
[2017-12-24 18:48] VITALS: BP 125/65; PULSE 76; BMI 30.2
[2017-12-24 18:54] LABS: HEMATOCRIT 28.1 % (32.4-45.2); MCH 24.8 pg (25.7-33.7); MCHC 32.1 g/dl (32.0-36.0); MEAN PLT VOLUME 7.3 fl (7.5-11.1); PLATELET COUNT 335 K/MM3 (134-434); RBC 3.65 M/mm3 (3.60-5.2); RDW 18.3 % (11.6-15.6); WHITE BLOOD COUNT 5.2 K/mm3 (4.0-10.0)
[2017-12-24] MEDS ORDERED: ACETAMINOPHEN 325 MG TABLET (FP) PO ONE (19:13)
--- NOTE | 2017-12-24 19:14 | PDOC ---
History of Present Illness - General Chief Complaint: Pain Stated Complaint: left breast pain Time Seen by Provider: 12/24/17 18:31 History Source: Patient - History of Present Illness Initial Comments: 12/24/17 19:14 This is a 72-year-old woman with past medical history of hyperlipidemia, hypertension, COPD, CVA with residual altered balance, diabetes, GERD and seizures status post craniotomy for benign meningioma who presents emergency Department with left sided chest pain and headache. Patient has been seen and evaluated in this emergency department multiple times for similar complaints. Patient was most recently evaluated on 12/23 for similar complaints and had negative workup. Patient denies any change in the pain since previous evaluations. Patient denies fevers, chills, blurry vision, dizziness, shortness of breath, abdominal pain, nausea, vomiting, dysuria, hematuria, rectal bleeding , diarrhea. Denies leg swelling. The chest pain is worse with movement of the arm and palpation. Past History - Past Medical History Allergies/Adverse Reactions: Allergies Allergy/AdvReac Type Severity Reaction Status Date / Time aspirin Allergy Severe "NERVOUS" Verified 12/23/17 17:47 morphine Allergy Severe "ANXIETY-DE Verified 12/23/17 17:47 SPERATION" Home Medications: Ambulatory Orders Escitalopram Oxalate [Lexapro -] 10 mg PO DAILY 03/10/16 Amlodipine Besylate 5 mg PO DAILY 11/06/17 Betamethasone/Propylene Glyc [Betamethasone Dp Aug 0.05% Crm] 0.05 applic TP BID 11/06/17 Divalproex Sodium [Depakote] 500 mg PO BID 11/06/17 Famotidine 20 mg PO BID 11/06/17 Cefpodoxime Proxetil [Vantin -] 100 mg PO BID #14 tablet 11/07/17 Docusate Sodium [Colace] 100 mg PO BID #1 capsule 11/07/17 Ferrous Sulfate [Feosol] 325 mg PO BID #60 tablet 11/07/17 Lisinopril [Prinivil] 5 mg PO DAILY #30 tablet 11/07/17 Anemia: Yes Asthma: No Cancer: No Cardiac Disorders: Yes (Chest pain) 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, baseline confusion and dizziness) COPD: Yes CHF: No DVT: No Dementia: No Diabetes: Yes GI Disorders: Yes (gerd, gastric ulcer, dysphagia) Disorders: Yes (kidney stone in the past) HTN: Yes Hypercholesterolemia: Yes Liver Disease: No Psychiatric Problems: Yes (ANXIETY DEPRESSION) Seizures: Yes (S/P craniotomy for benign tumor - on Depakote for seizure prophylaxis) Thyroid Disease: No - Surgical History Abdominal Surgery: Yes Appendectomy: No Cardiac Surgery: No Cholecystectomy: Yes Lung Surgery: No Neurologic Surgery: Yes (removal left meningioma, craniotomy) Orthopedic Surgery: Yes (bilat knee replacement) - Reproductive History Is Patient Now?: No - Immunization History Td Vaccination: Yes TDAP Vaccination: No Immunization Up to Date: No - Suicide/Smoking/Psychosocial Hx Smoking Status: No Smoking History: Never smoked Have you smoked in the past 12 months: No Number of Cigarettes Smoked Daily: 0 Cigars Per Day: 0 Hx Alcohol Use: No Drug/Substance Use Hx: No Substance Use Type: None Hx Substance Use Treatment: No Review of Systems - Review of Systems Comments:: 12/24/17 19:15 GENERAL/CONSTITUTIONAL: No fever or chills. No weakness. HEAD, EYES, EARS, NOSE AND THROAT: No change in vision. No sore throat. CARDIOVASCULAR: +chest pain no shortness of breath RESPIRATORY: No cough, wheezing, or hemoptysis. GASTROINTESTINAL: No nausea, vomiting, diarrhea or constipation. GENITOURINARY: No dysuria, frequency, or change in urination. MUSCULOSKELETAL: No joint or muscle swelling or pain. No neck or back pain. SKIN: No rash NEUROLOGIC: +headache, no vertigo, loss of consciousness, or change in strength/ sensation. ENDOCRINE: No increased thirst. No abnormal weight change HEMATOLOGIC/LYMPHATIC: No anemia, easy bleeding, or history of blood clots. ALLERGIC/IMMUNOLOGIC: No hives or skin allergy. *Physical Exam - Vital Signs Last Vital Signs Temp Pulse Resp BP Pulse Ox 98.7 F 76 18 125/65 98 12/24/17 18:38 12/24/17 18:38 12/24/17 18:38 12/24/17 18:38 12/24/17 18:38 - Physical Exam Comments: 12/24/17 19:16 GENERAL: Awake, alert, and fully oriented, in no acute distress HEAD: No signs of trauma, normocephalic, atraumatic EYES: PERRLA, EOMI, sclera anicteric, conjunctiva clear ENT: Auricles normal inspection, hearing grossly normal, nares patent, oropharynx clear without exudates. Moist mucosa NECK: Normal ROM, supple, no lymphadenopathy, JVD, or masses LUNGS: No distress, speaks full sentences, clear to auscultation bilaterally HEART: Regular rate and rhythm, normal S1 and S2, no murmurs, rubs or gallops, peripheral pulses normal and equal bilaterally. +chest wall tenderness and pain with movement of left arm ABDOMEN: Soft, nontender, normoactive bowel sounds. No guarding, no rebound. No masses EXTREMITIES: Normal inspection, Normal range of motion, no edema. No clubbing or cyanosis. NEUROLOGICAL: Cranial nerves II through XII grossly intact. Normal speech, normal gait with walker, no focal sensorimotor deficits SKIN: Warm, Dry, normal turgor, no rashes or lesions noted. ED Treatment Course - LABORATORY CBC & Chemistry Diagram: 12/24/17 18:38 12/24/17 18:38 - ADDITIONAL ORDERS Additional order review: 12/24/17 18:38 RBC 3.65 MCV 77.0 L MCHC 32.1 RDW 18.3 H MPV 7.3 L Medical Decision Making - Medical Decision Making 12/24/17 19:17 Patient is 72F well known to the ED with atypical chest pain. Last evaluated yesterday. No change in symptoms. No suspicion of pneumonia. Patient is walking around ED in walker. EKG shows normal sinus rhythm with normal rate. No st elevations/depressions. Normal axis. Normal intervals. No significant t wave inversions. 12/24/17 19:34 CBC shows anemia at baseline. CMP reassuring, troponin negative. Discharged home. *DC/Admit/Observation/Transfer Diagnosis at time of Disposition: Atypical chest pain - Discharge Dispostion Disposition: HOME Condition at time of disposition: Good Decision to Admit order: No - Referrals - Patient Instructions Printed Discharge Instructions: DI for Atypical Chest Pain Additional Instructions: Please follow up with your primary care doctor this week. Please return if you have any new, worsening or concerning symptoms. Por favor karol un seguimiento con perla mdico de atencin primaria esta semana. Por favor regrese si tiene sntomas nuevos, que empeoran o estn relacionados. Print Language: [place]THER[place] IRISH - Post Discharge Activity
--- NOTE | 2017-12-24 19:19 | PDOC ---
Attending Attestation - Resident Resident Name: Elliott Nunez - ED Attending Attestation I have performed the following: I have examined & evaluated the patient, The case was reviewed & discussed with the resident, I agree w/resident's findings & plan - HPI HPI: 12/24/17 19:50 Sumner 72yo female with a PMHx of CVA (2009), HTN, HLD, Cataracts w/ corrective surgery, Seizures s/p Brain surgery left meningioma (1999), Chronic anemia, anxiety, GERD/PUD and chronic hyponatremia presenting with mild frontal headache and chest pain today. Patient describes the chest pain as left sided, constant, and exacerbated with movement. Patient reports taking Tylenol at home with no improvement of her symptoms. - Physicial Exam PE: 12/24/17 19:20 NAD, well appearing, PERRL, EOMI, MMM, nl conjunctiva, anicteric; neck supple. lungs clear, RRR, abdomen soft nontender. STRAUSS x4, no focal neuro deficits. No peripheral edema. normal color for ethnicity, WWP. - Medical Decision Making 12/24/17 19:19 Sumner 72yo female with a PMHx of CVA (2009), HTN, HLD, Cataracts w/ corrective surgery, Seizures s/p Brain surgery left meningioma (1999), Chronic anemia, anxiety, GERD/PUD and chronic hyponatremia presenting with CP and headache, similar to her prior sx. Vital signs reviewed, wnl. Prior notes reviewed, including admissions, discharges and consultations. laboratory results and imaging reviewed, basic labs and lytes wnl, notable for neg trop, EKG normal sinus rhythm, no interval abnormalities, narrow QRS, ST and T wave segments and morphology normal. Nonspecific T wave abnormalities unchanged from prior. neg trop, less likely ACS/cardiac. ED course: no acute events, remained stable and well appearing. Clinically improved after interventions, including tylenol for analgesia. no focal neuro deficits to suggest acute CVA. DC in stable condition, remains well, PCP followup, return precautions discussed. 12/24/17 19:50
[2017-12-24 19:24] LABS: ANION GAP 9 MMOL/L (8-16); BILIRUBIN,TOTAL 0.2 mg/dL (0.2-1); BLOOD UREA NITROGEN 17 mg/dL (7-18); CALCIUM 8.3 mg/dL (8.5-10.1); CHLORIDE 102 mmol/L (98-107); CO2 27 mmol/L (21-32); CREATININE 0.5 mg/dL (0.55-1.3); GLUCOSE,RANDOM 116 mg/dL (74-106); POTASSIUM 4.6 mmol/L (3.5-5.1); SGOT/AST 23 U/L (15-37); SGPT/ALT 29 U/L (13-61); SODIUM 138 mmol/L (136-145); TOT PROT 6.4 g/dl (6.4-8.2)
[2017-12-24 19:25] LABS: ALK PHOS 221 U/L (45-117)
[2017-12-24] MEDS ORDERED: ACETAMINOPHEN 325 MG TABLET (FP) ONE (20:30)
--- NOTE | 2017-12-25 10:46 | EKG ---
Test Reason : Blood Pressure : / mmHG Vent. Rate : 078 BPM Atrial Rate : 078 BPM P-R Int : 160 ms QRS Dur : 082 ms QT Int : 396 ms P-R-T Axes : 050 010 028 degrees QTc Int : 451 ms NORMAL SINUS RHYTHM NORMAL ECG WHEN COMPARED WITH ECG OF 23-DEC-2017 17:38, NO SIGNIFICANT CHANGE WAS FOUND Confirmed by J LUIS POWELL MD ([id number]) on 12/25/2017 10:46:06 AM Referred By: Confirmed By:J LUIS POWELL MD
== END 2017-12-24 20:47 | disposition home or self-care (01) ==
LOC: JER 18:22
DX: R07.9 Chest pain, unspecified (principal); R51 Headache; D64.9 Anemia, unspecified; J44.9 Chronic obstructive pulmonary disease, unspecified; I10 Essential (primary) hypertension; E78.00 Pure hypercholesterolemia, unspecified; E11.9 Type 2 diabetes mellitus without complications; F41.8 Other specified anxiety disorders; I69.893 Ataxia following other cerebrovascular disease; I69.810 Attention and concentration deficit following other cerebrovascular disease; Z86.011 Personal history of benign neoplasm of the brain; Z86.69 Personal history of other diseases of the nervous system and sense organs; Z87.19 Personal history of other diseases of the digestive system; Z96.653 Presence of artificial knee joint, bilateral; R26.89 Other abnormalities of gait and mobility; Z99.89 Dependence on other enabling machines and devices
CPT/HCPCS: 36415; 80053; 82550; 84484; 85027; 93005; 93010; 99285-25

== ENCOUNTER 2017-12-26 19:32 | Emergency (ER) | payer OTHER ==
--- NOTE | 2017-12-26 19:37 | PDOC ---
Rapid Medical Evaluation Chief Complaint: Chest Pain Time Seen by Provider: 12/26/17 19:36 Medical Evaluation: Allergies Allergy/AdvReac Type Severity Reaction Status Date / Time aspirin Allergy Severe "NERVOUS" Verified 12/23/17 17:47 morphine Allergy Severe "ANXIETY-DE Verified 12/23/17 17:47 SPERATION" I have performed a brief in-person evaluation of this patient. The patient presents with a chief complaint of: chest pain Pertinent physical exam findings: none I have ordered the following: ekg The patient will proceed to the ED for further evaluation. Discharge Disposition - Diagnosis Chest pain - Referrals Referrals: Waldo Mabry MD [Primary Care Provider] - - Patient Instructions - Post Discharge Activity
[2017-12-26 19:45] VITALS: BP 111/54; PULSE 95; TEMP 98.3; BMI 65.0
--- NOTE | 2017-12-26 20:10 | PDOC ---
Attending Attestation - Resident Resident Name: HollyRossy - ED Attending Attestation I have performed the following: I have examined & evaluated the patient, The case was reviewed & discussed with the resident, I agree w/resident's findings & plan, Exceptions are as noted - HPI HPI: 12/26/17 20:13 12/09/17 20:12 Ms Sumner is well known to this ER She presents to the ER with a complaint of chest pain She points to her left anterior chest No shortness of breath No fevers, no chills - Physicial Exam PE: 12/26/17 20:13 GENERAL: The patient is in no acute distress, pt is somnolent EYES: PERRLA, EOMI ENT: Ears normal, nares patent, oropharynx clear without exudates. Moist mucous membranes. LUNGS: Breath sounds equal, clear to auscultation bilaterally. HEART:Regular rate and rhythm, normal S1 and S2 without murmur, rub or gallop. ABDOMEN: Soft, nontender, normoactive bowel sounds. EXTREMITIES: Normal range of motion, no edema. NEUROLOGICAL: Cranial nerves II through XII grossly intact. Normal speech. No focal neurological deficits. Somonlent but arousable MUSCULOSKELETAL: Back non-tender to palpation, no CVA tenderness SKIN: Warm, Dry, normal turgor, no rashes or lesions noted. - Medical Decision Making 12/26/17 20:13 72 yo F presenting with a complaint of chest pain Pt and I had a long discussion She tells me that she is incredibly lonely at home EKG:Twelve-lead EKG was performed and reviewed by me. There is normal sinus rhythm with a normal rate. The axis is normal. The intervals are normal. There are no ST or T wave abnormalities. Impression: Normal twelve-lead EKG She requests tylenol She requests to be discharged to home I have discussed Ms Sumner with the mobility architect manager for some options for helping her She will look in to her case Clinical Impression: atypical chest pain, initial presentation
[2017-12-26] MEDS ORDERED: ACETAMINOPHEN 500 MG TABLET (FP) PO ONE (21:04)
[2017-12-26] MEDS ORDERED: ACETAMINOPHEN 500 MG TABLET (FP) ONE (21:10)
--- NOTE | 2017-12-26 21:35 | PDOC ---
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 Pt has a home planning consultant salesperson at home. Pt says that earlier today she felt dizzy and lightheaded but she had her home planning consultant salesperson at home. Pt now comes to ED with chest pain and headache. Pt says this pain is not different than usual, she just worries because she is all alone at home and wants to make sure everything is ok. PMD: Clotilde Past History - Past Medical History Allergies/Adverse Reactions: Allergies Allergy/AdvReac Type Severity Reaction Status Date / Time aspirin Allergy Severe "NERVOUS" Verified 12/26/17 19:39 morphine Allergy Severe "ANXIETY-DE Verified 12/26/17 19:39 SPERATION" Home Medications: Ambulatory Orders Escitalopram Oxalate [Lexapro -] 10 mg PO DAILY 03/10/16 Amlodipine Besylate 5 mg PO DAILY 11/06/17 Betamethasone/Propylene Glyc [Betamethasone Dp Aug 0.05% Crm] 0.05 applic TP BID 11/06/17 Divalproex Sodium [Depakote] 500 mg PO BID 11/06/17 Famotidine 20 mg PO BID 11/06/17 Cefpodoxime Proxetil [Vantin -] 100 mg PO BID #14 tablet 11/07/17 Docusate Sodium [Colace] 100 mg PO BID #1 capsule 11/07/17 Ferrous Sulfate [Feosol] 325 mg PO BID #60 tablet 11/07/17 Lisinopril [Prinivil] 5 mg PO DAILY #30 tablet 11/07/17 Anemia: Yes Asthma: No Cancer: No Cardiac Disorders: Yes (Chest pain) 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, baseline confusion and dizziness) COPD: Yes CHF: No DVT: No Dementia: No Diabetes: Yes GI Disorders: Yes (gerd, gastric ulcer, dysphagia) Disorders: Yes (kidney stone in the past) HTN: Yes Hypercholesterolemia: Yes Liver Disease: No Psychiatric Problems: Yes (ANXIETY DEPRESSION) Seizures: Yes (S/P craniotomy for benign tumor - on Depakote for seizure prophylaxis) Thyroid Disease: No - Surgical History Abdominal Surgery: Yes Appendectomy: No Cardiac Surgery: No Cholecystectomy: Yes Lung Surgery: No Neurologic Surgery: Yes (removal left meningioma, craniotomy) Orthopedic Surgery: Yes (bilat knee replacement) - Immunization History Td Vaccination: Yes TDAP Vaccination: No Immunization Up to Date: No - Suicide/Smoking/Psychosocial Hx Smoking Status: No Smoking History: Never smoked Have you smoked in the past 12 months: No Number of Cigarettes Smoked Daily: 0 Cigars Per Day: 0 Information on smoking cessation initiated: No Hx Alcohol Use: No Drug/Substance Use Hx: No Substance Use Type: None Hx Substance Use Treatment: No Review of Systems - Review of Systems Constitutional: No: Symptoms Reported HEENTM: No: Symptoms Reported Respiratory: No: Symptoms reported Cardiac (ROS): Yes: Chest Pain (L sided breast/chest pain) ABD/GI: No: Symptoms Reported : No: Symptoms Reported Musculoskeletal: No: Symptoms Reported Integumentary: No: Symptoms Reported Neurological: Yes: Headache. No: Numbness, Tingling, Tremors *Physical Exam - Vital Signs Last Vital Signs Temp Pulse Resp BP Pulse Ox 98.3 F 95 H 18 111/54 L 100 12/26/17 19:36 12/26/17 19:36 12/26/17 19:36 12/26/17 19:36 12/26/17 19:36 - Physical Exam General Appearance: Yes: Nourished, Appropriately Dressed. No: Apparent Distress HEENT: positive: EOMI, KARL Neck: positive: Trachea midline, Supple. negative: Carotid bruit, Lymphadenopathy (R), Lymphadenopathy (L) Respiratory/Chest: positive: Lungs Clear, Normal Breath Sounds. negative: Crackles, Rales, Rhonchi, Stridor, Wheezing Cardiovascular: positive: Regular Rhythm, Regular Rate, S1, S2. negative: Edema , JVD, Murmur Vascular Pulses: Carotid (R): 2+, Carotid (L): 2+, Dorsalis-Pedis (R): 2+, Doralis-Pedis (L): 2+ Gastrointestinal/Abdominal: positive: Normal Bowel Sounds, Soft. 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 Vitals: wnl PE: benign Pt is here for chest pain and headache which is resolved with Tylenol. Pt says she comes here because she is alone and does not have anyone at home to make sure she is ok. She has family in [place] but pt does not want to go there. She is also refusing to be placed in a long-term. She says that her insurance will not cover a 24 hour aide. As of this time, we do not have social work in the ED. Pt is agreeing to get Tylenol and go home. Pt has been here almost everyday and EKG is normal and all labs are normal. Pt will need to have social work involved to take care of her needs. 12/26/17 21:41 Pt refused EKG 12/26/17 21:48 Pt re-requesting EKG EKG: NSR. no navya or depressions, no t wave inversions or flattening. Pt is stable, can be dc home. 12/26/17 22:08 *DC/Admit/Observation/Transfer Diagnosis at time of Disposition: Chest pain Qualifiers: Chest pain type: unspecified Qualified Code(s): R07.9 - Chest pain, unspecified - Discharge Dispostion Disposition: HOME Condition at time of disposition: Good - Referrals Referrals: Waldo Mabry MD [Primary Care Provider] - - Patient Instructions Printed Discharge Instructions: DI for Atypical Chest Pain, DI for Chest Pain Additional Instructions: Te vieron aqu hoy por dolor en el pecho. EKG era normal. Puedes marleni Tylenol para el dolor. vuelva a la leah de emergencias si: el dolor empeora, pierde el conocimiento o si se presenta algn sntoma nuevo y preocupante. Diana You were seen here today for chest pain. EKG was normal. You can take Tylenol for pain. come back to the emergency room if: pain gets worse, you lose consciousness or if any new concerning symptom develops. Thank you - Post Discharge Activity
--- NOTE | 2017-12-27 11:34 | EKG ---
Test Reason : Blood Pressure : / mmHG Vent. Rate : 078 BPM Atrial Rate : 078 BPM P-R Int : 150 ms QRS Dur : 082 ms QT Int : 394 ms P-R-T Axes : 015 007 025 degrees QTc Int : 449 ms NORMAL SINUS RHYTHM NORMAL ECG WHEN COMPARED WITH ECG OF 24-DEC-2017 18:55, NO SIGNIFICANT CHANGE WAS FOUND Confirmed by ANNITA VENTURA MD ([id number]) on 12/27/2017 11:33:55 AM Referred By: Confirmed By:ANNITA VENTURA MD
== END 2017-12-26 22:11 | disposition home or self-care (01) ==
LOC: JER 19:32
DX: R07.9 Chest pain, unspecified (principal); D64.9 Anemia, unspecified; J44.9 Chronic obstructive pulmonary disease, unspecified; I10 Essential (primary) hypertension; E11.9 Type 2 diabetes mellitus without complications; F41.8 Other specified anxiety disorders; K21.9 Gastro-esophageal reflux disease without esophagitis; Z87.19 Personal history of other diseases of the digestive system; Z96.653 Presence of artificial knee joint, bilateral; Z86.011 Personal history of benign neoplasm of the brain; E78.00 Pure hypercholesterolemia, unspecified; I69.893 Ataxia following other cerebrovascular disease; I69.810 Attention and concentration deficit following other cerebrovascular disease
CPT/HCPCS: 93005; 93010; 99282-25

== ENCOUNTER 2017-12-29 17:48 | Emergency (ER) | payer OTHER ==
[2017-12-29] MEDS ORDERED: ACETAMINOPHEN 325 MG TABLET (FP) PO ONE (18:45)
--- NOTE | 2017-12-29 18:49 | PDOC ---
Rapid Medical Evaluation Chief Complaint: Chest Pain Time Seen by Provider: 12/29/17 18:44 Medical Evaluation: Allergies Allergy/AdvReac Type Severity Reaction Status Date / Time aspirin Allergy Severe "NERVOUS" Verified 12/26/17 19:39 morphine Allergy Severe "ANXIETY-DE Verified 12/26/17 19:39 SPERATION" 12/29/17 18:45 72 year old female with chest pain and headache. denies dizziness PE: patient alert ox3. A: chest pain P: EKG patient to the ER further management of caRE. PATIENT REPORTS TAKING TYLENOL AT 4 PM 12/29/17 18:49 Discharge Disposition - Diagnosis Atypical chest pain - Referrals Referrals: Waldo Mabry MD [Primary Care Provider] - - Patient Instructions - Post Discharge Activity
[2017-12-29 18:50] VITALS: BP 154/59; PULSE 84; TEMP 98.7; BMI 32.1
[2017-12-29] MEDS ORDERED: ACETAMINOPHEN 500 MG TABLET (FP) PO ONE (20:10)
[2017-12-29] MEDS ORDERED: ACETAMINOPHEN 325 MG TABLET (FP) ONE (20:32)
--- NOTE | 2017-12-29 20:41 | PDOC ---
History of Present Illness - General Chief Complaint: Chest Pain Stated Complaint: CHEST PAIN Time Seen by Provider: 12/29/17 18:44 History Source: Patient Exam Limitations: Language Barrier - History of Present Illness Initial Comments: 12/29/17 20:34 Ms. Sumner is a 72 yo F with a hx of HLD, HTN, COPD, CVA with residual altered balance, DM, GERD, and seizures 2/2 craniotomy for benign meningioma who is well known to the department presents to the emergency department with left chest pain with associative frontal headaches with nausea since yesterday. Chest pain is left side radiating to the center chest 8/10 sharp pain that worsens with palpations. Denies the following: fevers, chills, diaphoresis, Past History - Past Medical History Allergies/Adverse Reactions: Allergies Allergy/AdvReac Type Severity Reaction Status Date / Time aspirin Allergy Severe "NERVOUS" Verified 12/29/17 18:46 morphine Allergy Severe "ANXIETY-DE Verified 12/29/17 18:46 SPERATION" Home Medications: Ambulatory Orders Amlodipine Besylate 5 mg PO DAILY 11/06/17 Betamethasone/Propylene Glyc [Betamethasone Dp Aug 0.05% Crm] 0.05 applic TP BID 11/06/17 Divalproex Sodium [Depakote] 500 mg PO BID 11/06/17 Famotidine 20 mg PO BID 11/06/17 Cefpodoxime Proxetil [Vantin -] 100 mg PO BID #14 tablet 11/07/17 Lisinopril [Prinivil] 5 mg PO DAILY #30 tablet 11/07/17 Anemia: Yes Asthma: No Cancer: No Cardiac Disorders: Yes (Chest pain) 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, baseline confusion and dizziness) COPD: Yes CHF: No DVT: No Dementia: No Diabetes: Yes GI Disorders: Yes (gerd, gastric ulcer, dysphagia) Disorders: Yes (kidney stone in the past) HTN: Yes Hypercholesterolemia: Yes Liver Disease: No Psychiatric Problems: Yes (ANXIETY DEPRESSION) Seizures: Yes (S/P craniotomy for benign tumor - on Depakote for seizure prophylaxis) Thyroid Disease: No - Surgical History Abdominal Surgery: Yes Appendectomy: No Cardiac Surgery: No Cholecystectomy: Yes Lung Surgery: No Neurologic Surgery: Yes (removal left meningioma, craniotomy) Orthopedic Surgery: Yes (bilat knee replacement) - Immunization History Td Vaccination: Yes TDAP Vaccination: No Immunization Up to Date: No - Suicide/Smoking/Psychosocial Hx Smoking Status: No Smoking History: Never smoked Have you smoked in the past 12 months: No Number of Cigarettes Smoked Daily: 0 Cigars Per Day: 0 Hx Alcohol Use: No Drug/Substance Use Hx: No Substance Use Type: None Hx Substance Use Treatment: No *Physical Exam - Vital Signs Last Vital Signs Temp Pulse Resp BP Pulse Ox 98.7 F 84 19 154/59 L 96 12/29/17 18:47 12/29/17 18:47 12/29/17 18:47 12/29/17 18:47 12/29/17 18:47 - Physical Exam General Appearance: Yes: Nourished, Appropriately Dressed HEENT: positive: EOMI, KARL, Normal Voice. negative: Nasal Congestion, Rhinorrhea, Sinus Tenderness Neck: positive: Trachea midline. negative: Lymphadenopathy (R), Lymphadenopathy (L) Respiratory/Chest: positive: Lungs Clear, Normal Breath Sounds. negative: Chest Tender, Respiratory Distress, Accessory Muscle Use ED Treatment Course - LABORATORY CBC & Chemistry Diagram: 12/29/17 21:08 12/29/17 20:50 *DC/Admit/Observation/Transfer Diagnosis at time of Disposition: Atypical chest pain - Discharge Dispostion Disposition: HOME Decision to Admit order: No - Referrals Referrals: Waldo Mabry MD [Primary Care Provider] - - Patient Instructions Printed Discharge Instructions: DI for Atypical Chest Pain Additional Instructions: You were seen in the emergency department for your chest pain and headache. Your EKG showed no acute changes. Your troponin levels was negative. You were given tylenol for pain relief. Please see your primary medical doctor within 24- 48 hours after discharge for follow up care and management. Please return to the emergency department if you have worsening chest pain, profuse sweating, shortness of breath, or pain that moves from the chest elsewhere. Thank you. Usted fue atendido en el departamento de emergencias por corley dolor de pecho y dolor de carlos. Corley EKG no mostr cambios agudos. Rajani niveles de troponina fueron negativos. Te dieron tylenol para aliviar el dolor. Consulte a corley mdico de cabecera dentro de las 24 a 48 horas posteriores al mildred para el seguimiento y la administracin. Regrese al departamento de emergencias si tiene dolor de pecho que empeora, sudoracin profusa, dificultad para respirar o dolor que se mueve desde el pecho a otra parte. Diana - Post Discharge Activity
[2017-12-29 21:16] LABS: BASO % 0.9 % (0-2.0); EOS % 3.2 % (0-4.5); HEMATOCRIT 31.8 % (32.4-45.2); HEMOGLOBIN 10.1 GM/dL (10.7-15.3); LYMPH % 22.5 % (8-40); MCH 24.4 pg (25.7-33.7); MCHC 31.7 g/dl (32.0-36.0); MEAN CELL VOLUME 76.9 fl (80-96); MEAN PLT VOLUME 7.3 fl (7.5-11.1); MONO % 14.5 % (3.8-10.2); NEUT % 58.9 % (42.8-82.8); PLATELET COUNT 378 K/MM3 (134-434); RBC 4.14 M/mm3 (3.60-5.2); RDW 18.7 % (11.6-15.6); WHITE BLOOD COUNT 6.4 K/mm3 (4.0-10.0)
[2017-12-29 21:56] LABS: ALBUMIN 3.1 g/dl (3.4-5.0); ALK PHOS 181 U/L (45-117); ANION GAP 8 MMOL/L (8-16); BILIRUBIN,TOTAL 0.2 mg/dL (0.2-1); BLOOD UREA NITROGEN 17 mg/dL (7-18); CALCIUM 8.7 mg/dL (8.5-10.1); CHLORIDE 101 mmol/L (98-107); CO2 25 mmol/L (21-32); CREATININE 0.6 mg/dL (0.55-1.3); GLUCOSE,RANDOM 120 mg/dL (74-106); SGOT/AST 18 U/L (15-37); SGPT/ALT 26 U/L (13-61); SODIUM 134 mmol/L (136-145); TOT PROT 6.8 g/dl (6.4-8.2)
--- NOTE | 2017-12-29 23:06 | PDOC ---
Attending Attestation - Resident Resident Name: BassemDamian - ED Attending Attestation I have performed the following: The case was reviewed & discussed with the resident, I agree w/resident's findings & plan, Exceptions are as noted - HPI HPI: 12/29/17 23:02 72 yo F very well known to department, h/o copd, cad, htn cva, DM anxiety, here with c/o chest pain and facial pain. left sided facial pain. also c/o left headache, radiatig to her face, nausea, no sob. chest pain raidiating to center of chest. worse with movement and palpation. no leg swelling no other compliants. no f/c no cough. states she is upset because she is going to lose medicaid because she has too many ed visits. has appt scheduled with nuerology and cardiology in a few weeks. - Physicial Exam PE: 12/29/17 23:04 awake alert, NAD. ambulating wihtout difficulty. pt left prior to my full exam. - Medical Decision Making 12/29/17 23:04 72 yo F with h/o mult med problesm here frequently c/o chest pain. here today c/ o chest pain, plan labs ekg trop. labs unremarkable. given tylenol, pt requesting food and then requesting to go home. left department. ekg unremarkable.
--- NOTE | 2018-01-01 18:33 | EKG ---
Test Reason : Blood Pressure : / mmHG Vent. Rate : 073 BPM Atrial Rate : 073 BPM P-R Int : 156 ms QRS Dur : 074 ms QT Int : 396 ms P-R-T Axes : 041 017 037 degrees QTc Int : 436 ms NORMAL SINUS RHYTHM NORMAL ECG WHEN COMPARED WITH ECG OF 26-DEC-2017 21:51, NO SIGNIFICANT CHANGE WAS FOUND Confirmed by J LUIS POWELL MD ([id number]) on 01/01/2018 6:33:41 PM Referred By: Confirmed By:J LUIS POWELL MD
== END 2017-12-30 00:03 | disposition home or self-care (01) ==
LOC: JER 17:48
DX: R07.89 Other chest pain (principal); R51 Headache; D64.9 Anemia, unspecified; J44.9 Chronic obstructive pulmonary disease, unspecified; I10 Essential (primary) hypertension; E11.9 Type 2 diabetes mellitus without complications; E03.9 Hypothyroidism, unspecified; F41.8 Other specified anxiety disorders; Z86.011 Personal history of benign neoplasm of the brain; I69.893 Ataxia following other cerebrovascular disease; I69.810 Attention and concentration deficit following other cerebrovascular disease; Z96.653 Presence of artificial knee joint, bilateral
CPT/HCPCS: 36415; 80053; 82550; 84484; 85025; 93005; 93010; 99284-25

== ENCOUNTER 2018-01-02 05:52 | Inpatient (IN) | payer OTHER ==
[2018-01-02 06:13] VITALS: BMI 31.1
--- NOTE | 2018-01-02 08:44 | PDOC ---
History of Present Illness - General History Source: Patient, Pot Operator Used Exam Limitations: No Limitations <MarvaMarniishan Atkins - Last Filed: 01/02/18 11:28> - History of Present Illness Initial Comments: 01/02/18 08:40 Patient is a 72 year old female with past medical history of HTN, COPD, HLD, CVA , chronic chest pain, GERD and seizures, known to have frequent visits at the ED , presents with dizziness and nausea. When asked other questions, patient keeps on saying that she feels dizzy and nauseated. She also reports chest pain, not relieved by Tylenol which she reportedly took this morning. Patient denies fevers, chills, vomiting, SOB, palpitations, abdominal pain, diarrhea, urinary symptoms. 01/02/18 10:41 <Tata Sandhu - Last Filed: 01/02/18 13:19> - General Chief Complaint: Psychiatric Stated Complaint: FEELING ANXIOUS Time Seen by Provider: 01/02/18 08:03 Past History <Marni Durham - Last Filed: 01/02/18 11:28> - Past Medical History Anemia: Yes Asthma: No Cancer: No Cardiac Disorders: Yes (Chest pain) 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, baseline confusion and dizziness) COPD: Yes CHF: No DVT: No Dementia: No Diabetes: Yes GI Disorders: Yes (gerd, gastric ulcer, dysphagia) Disorders: Yes (kidney stone in the past) HTN: Yes Hypercholesterolemia: Yes Liver Disease: No Psychiatric Problems: Yes (ANXIETY DEPRESSION) Seizures: Yes (S/P craniotomy for benign tumor - on Depakote for seizure prophylaxis) Thyroid Disease: No - Surgical History Abdominal Surgery: Yes Appendectomy: No Cardiac Surgery: No Cholecystectomy: Yes Lung Surgery: No Neurologic Surgery: Yes (removal left meningioma, craniotomy) Orthopedic Surgery: Yes (bilat knee replacement) - Immunization History Td Vaccination: Yes TDAP Vaccination: No Immunization Up to Date: Yes - Suicide/Smoking/Psychosocial Hx Smoking Status: No Smoking History: Never smoked Have you smoked in the past 12 months: No Number of Cigarettes Smoked Daily: 0 Cigars Per Day: 0 Information on smoking cessation initiated: No Hx Alcohol Use: No Drug/Substance Use Hx: No Substance Use Type: None Hx Substance Use Treatment: No <Tata Sandhu Filed: 01/02/18 13:19> - Past Medical History Allergies/Adverse Reactions: Allergies Allergy/AdvReac Type Severity Reaction Status Date / Time aspirin Allergy Severe "NERVOUS" Verified 01/02/18 06:12 morphine Allergy Severe "ANXIETY-DE Verified 01/02/18 06:12 SPERATION" Home Medications: Ambulatory Orders Amlodipine Besylate 5 mg PO DAILY 11/06/17 Divalproex Sodium [Depakote] 500 mg PO BID 11/06/17 Famotidine 20 mg PO BID 11/06/17 Lisinopril [Prinivil] 5 mg PO DAILY #30 tablet 11/07/17 Review of Systems - Review of Systems Constitutional: No: Chills, Fever, Malaise, Weakness Respiratory: No: Cough, Shortness of Breath Cardiac (ROS): Yes: Chest Pain. No: Palpitations ABD/GI: Yes: Nausea. No: Abdominal Distended, Constipated, Diarrhea Neurological: Yes: Dizziness. No: Headache Psychiatric: Yes: Anxiety <Tata Sandhu - Last Filed: 01/02/18 13:19> *Physical Exam - Vital Signs Last Vital Signs Temp Pulse Resp BP Pulse Ox 98.9 F 100 H 16 154/70 96 01/02/18 07:47 01/02/18 07:47 01/02/18 07:47 01/02/18 07:47 01/02/18 07:47 - Physical Exam HEENT: positive: EOMI, KARL Musculoskeletal: positive: Normal Inspection Extremity: positive: Normal Capillary Refill, Normal Inspection Integumentary: positive: Normal Color, Warm Neurologic: positive: Alert <Marni Durham - Last Filed: 01/02/18 11:28> - Vital Signs Last Vital Signs Temp Pulse Resp BP Pulse Ox 98.9 F 100 H 16 154/70 96 01/02/18 07:47 01/02/18 07:47 01/02/18 07:47 01/02/18 07:47 01/02/18 07:47 - Physical Exam General Appearance: Yes: Other (awake, alert, anxious) Neck: positive: Trachea midline, Supple Respiratory/Chest: positive: Lungs Clear Cardiovascular: positive: Regular Rhythm, Regular Rate Gastrointestinal/Abdominal: positive: Normal Bowel Sounds <Tata Sandhu - Last Filed: 01/02/18 13:19> ED Treatment Course - LABORATORY CBC & Chemistry Diagram: 01/02/18 10:04 01/02/18 09:25 - Medications Given in the ED: ED Medications Discontinued Medications Generic Name Dose Route Start Last Admin Trade Name Chance PRN Reason Stop Dose Admin Acetaminophen 650 mg 01/02/18 08:48 01/02/18 08:52 Tylenol - PO 01/02/18 08:49 650 mg ONCE ONE Administration <Marni Durham - Last Filed: 01/02/18 11:28> - LABORATORY CBC & Chemistry Diagram: 01/02/18 10:04 01/02/18 09:25 <Tata Sandhu - Last Filed: 01/02/18 13:19> Medical Decision Making - Medical Decision Making 01/02/18 09:10 Patient is a 72 year old female with past medical history of HTN, COPD, HLD, CVA , chronic chest pain, GERD and seizures, known to have frequent visits at the ED , presents with dizziness and nausea. When asked other questions, patient keeps on saying that she feels dizzy and nausea. She also reports chest pain, not relieved by Tylenol which she reportedly took this morning. General: awake, alert, anxious Lungs: clear to auscultation bilaterally Cardio: regular rate and rhythm, normal S1/S2, no m,r,g Abdomen: soft, nontender, nondistended, NABS A: DDx includes but not limited to ACS, MSK, electrolyte disturbance P: Labs ordered: BMP, trop EKG done - NSR Tylenol 650 mg [id number] mg 01/02/18 10:38 Patient noted to be hyponatremic at 121 Will admit to hospitalist. 01/02/18 13:19 <Tata Sandhu - Last Filed: 01/02/18 13:19> *DC/Admit/Observation/Transfer - Discharge Dispostion Decision to Admit order: Yes Decision to Admit order Date/Time: 01/02/18 11:29 Decision to Admit Order Category Date Time Status Decision to Admit to Hospital Routine Admission 01/02/18 10:24 Active <Marni Durham - Last Filed: 01/02/18 11:28> - Discharge Dispostion Decision to Admit order: Yes <Tata Sandhu - Last Filed: 01/02/18 13:19> Diagnosis at time of Disposition: Anxiety, Hyponatremia - Discharge Dispostion Condition at time of disposition: Fair
[2018-01-02] MEDS ORDERED: ACETAMINOPHEN 325 MG TABLET (FP) PO ONE (08:48)
[2018-01-02] MEDS ORDERED: ACETAMINOPHEN 325 MG TABLET (FP) ONE ×3 (08:52→14:26)
[2018-01-02] MEDS ORDERED: PROMETHAZINE HCL 25 MG TABLET PO ONE (09:15)
--- NOTE | 2018-01-02 09:51 | PDOC ---
Attending Attestation - Resident Resident Name: Tata Sandhu - ED Attending Attestation I have performed the following: I have examined & evaluated the patient, The case was reviewed & discussed with the resident, I agree w/resident's findings & plan - HPI HPI: 01/02/18 09:50 Patient is a 72 year old female with past medical history of HTN, COPD, HLD, CVA , chronic chest pain, GERD and seizures, known to have frequent visits at the ED , presents with dizziness and nausea. - Physicial Exam PE: 01/02/18 09:50 Alert, NAD, well appearing, PERRL, EOMI, nl conjunctiva, anicteric; neck supple. lungs clear, RRR, abdomen soft nontender. obese abdomen. STRAUSS x4, no focal neuro deficits. No peripheral edema. normal color for ethnicity, WWP. ambulatory with walker 01/02/18 11:30 - Medical Decision Making 01/02/18 09:51 Vital signs reviewed, wnl. mild tachy borderline at 100 Prior notes reviewed, including admissions, discharges and consultations. laboratory results and imaging reviewed, basic labs and lytes wnl, notable for + hyponatremia 121, will need to fluid restrict and monitor lytes. Cardiac panel_neg trop, reassuring, less likely ACS or cardiac EKG normal sinus rhythm, no interval abnormalities, narrow QRS, ST and T wave segments and morphology normal. Nonspecific T wave abnormalities unchanged from prior. ED course: unremarkable, comfortable. walking around department fluid restrict for now, slow correction and recheck, euvolemic Dispo: Admit for hyponatremia and slow correction. Discussed results and management plan with pt and family member at bedside, agree with impression and plan admit to hospitalist PMD /Lee daniel 01/02/18 10:04 01/02/18 11:30 Heart Score/ECG Review - ECG Impressions Normal ECG: Yes Comment:: 01/02/18 09:51 EKG normal sinus rhythm, no interval abnormalities, narrow QRS, ST and T wave segments and morphology normal. Nonspecific T wave abnormalities unchanged from prior.
[2018-01-02 10:02] LABS: ANION GAP 14 MMOL/L (8-16); BLOOD UREA NITROGEN 10 mg/dL (7-18); CALCIUM 8.3 mg/dL (8.5-10.1); CHLORIDE 84 mmol/L (98-107); CO2 23 mmol/L (21-32); CREATININE 0.6 mg/dL (0.55-1.3); GLUCOSE,RANDOM 119 mg/dL (74-106); POTASSIUM 4.2 mmol/L (3.5-5.1); SODIUM 121 mmol/L (136-145)
[2018-01-02 10:56] LABS: BASO % 0.2 % (0-2.0); EOS % 0.2 % (0-4.5); HEMATOCRIT 31.7 % (32.4-45.2); LYMPH % 11.2 % (8-40); MCH 23.7 pg (25.7-33.7); MCHC 31.5 g/dl (32.0-36.0); MEAN CELL VOLUME 75.2 fl (80-96); MEAN PLT VOLUME 7.2 fl (7.5-11.1); MONO % 8.4 % (3.8-10.2); PLATELET COUNT 347 K/MM3 (134-434); RBC 4.21 M/mm3 (3.60-5.2); WHITE BLOOD COUNT 9.3 K/mm3 (4.0-10.0)
[2018-01-02] MEDS ORDERED: SODIUM CHLORIDE 1,000 ML IV SCH (11:00)
--- NOTE | 2018-01-02 11:09 | HP ---
CHIEF COMPLAINT: dizziness PCP: HISTORY OF PRESENT ILLNESS: 71 year old pt with PMHx of CVA (2009), HTN, HLD, cataracts w/ corrective surgery, seizures s/p Brain surgery left meningioma (1999), chronic anemia, anxiety, GERD/PUD and chronic hyponatremia presents with dizziness and nausea for one day. She has multiple ER visits for similar complaints and has been admitted for hyponatremia in past. This has been worked up several times in past. Previous admission she corrected with NS infusion and water restriction. Denies CP, GALLARDO, SOB, abdominal pain,fever, chills or vomiting. 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 Cardiovascular: Yes: HTN, Hyperlipdemia Gastrointestinal: Yes: GERD, Hiatal Hernia, Peptic Ulcer Disease Renal/: Yes: Other (hyponatremia) Heme/Onc: Yes: Anemia Psych: Yes: Anxiety, Depression Musculoskeletal: Yes: Osteoarthritis - Past Surgical History Past Surgical History: Yes: Cataract Removal (bilateral), Joint Replacement (RT KNEE) - Smoking History Smoking history: Never smoked Have you smoked in the past 12 months: No Aproximately how many cigarettes per day: 0 - Alcohol/Substance Use Hx Alcohol Use: No History of Substance Use: reports: None - Social History Usual Living Arrangement: Yes: Alone 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, 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 History of Recent Travel: No Allergies aspirin Allergy (Severe, Verified 01/02/18 06:12) "NERVOUS" morphine Allergy (Severe, Verified 01/02/18 06:12) "ANXIETY-DESPERATION" HOME MEDICATIONS: Home Medications Medication Instructions Recorded Amlodipine Besylate 5 mg PO DAILY 11/06/17 Divalproex Sodium [Depakote] 500 mg PO BID 11/06/17 Famotidine 20 mg PO BID 11/06/17 Lisinopril [Prinivil] 5 mg PO DAILY #30 tablet 11/07/17 REVIEW OF SYSTEMS CONSTITUTIONAL: Absent: fever, chills, diaphoresis, generalized weakness, malaise, loss of appetite, weight change HEENT: Absent: rhinorrhea, nasal congestion, throat pain, throat swelling, difficulty swallowing, mouth swelling, ear pain, eye pain, visual changes CARDIOVASCULAR: Absent: chest pain, syncope, palpitations, irregular heart rate, lightheadedness , peripheral edema RESPIRATORY: Absent: cough, shortness of breath, dyspnea with exertion, orthopnea, wheezing, stridor, hemoptysis GASTROINTESTINAL: Absent: abdominal pain, abdominal distension, nausea, vomiting, diarrhea, constipation, melena, hematochezia GENITOURINARY: Absent: dysuria, frequency, urgency, hesitancy, hematuria, flank pain, genital pain MUSCULOSKELETAL: Absent: myalgia, arthralgia, joint swelling, back pain, neck pain SKIN: Absent: rash, itching, pallor HEMATOLOGIC/IMMUNOLOGIC: Absent: easy bleeding, easy bruising, lymphadenopathy, frequent infections ENDOCRINE: Absent: unexplained weight gain, unexplained weight loss, heat intolerance, cold intolerance NEUROLOGIC: Absent: headache, focal weakness or paresthesias, dizziness, unsteady gait, seizure, mental status changes, bladder or bowel incontinence PSYCHIATRIC: Absent: anxiety, depression, suicidal or homicidal ideation, hallucinations. PHYSICAL EXAMINATION Vital Signs - 24 hr 01/02/18 01/02/18 05:55 07:47 Temperature 97.8 F 98.9 F Pulse Rate 100 H Pulse Rate [ 100 H Left Apical] Respiratory 19 16 Rate Blood Pressure 165/93 Blood Pressure 154/70 [Left Arm] O2 Sat by Pulse 97 96 Oximetry (%) GENERAL:awake and alert , nad HEAD: NCAT EYES: PERRLA, EOMI, sclera anicteric, conjunctiva clear. No lid lag. EARS, NOSE, THROAT: Moist mucous membranes. NECK: Supple without lymphadenopathy, JVD, or masses. LUNGS:CTAB. No wheezes, and no crackles. No accessory muscle use. HEART: tachycardic, normal S1 and S2 without murmur, rub or gallop. ABDOMEN: Soft, NTND,NABS no guarding, no rebound, no masses. No hepatomegaly or splenomegaly. MUSCULOSKELETAL: Normal range of motion at all joints. No bony deformities or tenderness. No CVA tenderness. LOWER EXTREMITIES: 2+ pulses, warm, well-perfused. No calf tenderness. No peripheral edema. NEUROLOGICAL: Cranial nerves II-XII intact. Normal speech. Laboratory Results - last 24 hr 01/02/18 01/02/18 09:25 10:04 WBC 9.3 RBC 4.21 Hgb 10.0 L Hct 31.7 L MCV 75.2 L MCH 23.7 L MCHC 31.5 L RDW 18.0 H Plt Count 347 MPV 7.2 L Absolute Neuts (auto) 7.5 Neutrophils % 80.0 D Lymphocytes % 11.2 D Monocytes % 8.4 Eosinophils % 0.2 D Basophils % 0.2 Nucleated RBC % 0 Sodium 121 L Potassium 4.2 Chloride 84 L Carbon Dioxide 23 Anion Gap 14 BUN 10 Creatinine 0.6 Creat Clearance w eGFR > 60 Random Glucose 119 H Calcium 8.3 L Troponin I < 0.02 ASSESSMENT/PLAN: 71 year old female with pmhx of CVA (2009), HTN, HLD, Cataracts w/ corrective surgery, Seizures s/p Brain surgery left meningioma (1999), Chronic anemia, anxiety, GERD/PUD admitted for acute hyponatremia. Problem List - Problem (1) Hyponatremia Assessment/Plan: Has known chronic hyponatremia. * Admit to med-surg * goal of initial therapy is to raise the serum sodium concentration by 4 to 6 mEq/L in a 24-hour period * repeat BMP Q4H * seizure precautions - neuro checks q 4h * serum and urine osm. pending. * fluid restrict 24hr. 1L * NS IVF 1 L bolus. * Nephrology consult. (2) GERD (gastroesophageal reflux disease) Assessment/Plan: continue protonix. (3) HLD (hyperlipidemia) (4) HTN (hypertension) Visit type - Emergency Visit Emergency Visit: Yes ED Registration Date: 01/02/18 Care time: The patient presented to the Emergency Department on the above date and was hospitalized for further evaluation of their emergent condition. - New Patient This patient is new to me today: Yes Date on this admission: 01/03/18 - Critical Care Critical Care patient: No
--- NOTE | 2018-01-02 11:35 | EKG ---
Test Reason : Blood Pressure : / mmHG Vent. Rate : 098 BPM Atrial Rate : 098 BPM P-R Int : 160 ms QRS Dur : 076 ms QT Int : 350 ms P-R-T Axes : 045 012 032 degrees QTc Int : 446 ms POOR DATA QUALITY, INTERPRETATION MAY BE ADVERSELY AFFECTED NORMAL SINUS RHYTHM NORMAL ECG WHEN COMPARED WITH ECG OF 01-JAN-2018 21:48, NO SIGNIFICANT CHANGE WAS FOUND Confirmed by Ashvin España MD ([id number]) on 01/02/2018 11:34:38 AM Referred By: Confirmed By:Ashvin España MD
[2018-01-02 13:20] LABS: ANISOCYTOSIS 1+; MACROCYTOSIS 0; PLATELET ESTIMATE NORMAL; TARGET CELLS 1+
[2018-01-02 14:45] LABS: ANION GAP 9 MMOL/L (8-16); BLOOD UREA NITROGEN 9 mg/dL (7-18); CALCIUM 8.6 mg/dL (8.5-10.1); CHLORIDE 86 mmol/L (98-107); CO2 25 mmol/L (21-32); CREATININE 0.5 mg/dL (0.55-1.3); GLUCOSE,RANDOM 121 mg/dL (74-106); POTASSIUM 4.3 mmol/L (3.5-5.1); SODIUM 120 mmol/L (136-145)
[2018-01-02] MEDS: ACETAMINOPHEN 325 MG TABLET (FP) PO PRN (14:46)
--- NOTE | 2018-01-02 14:58 | CONSULT ---
Consult Consult Specialty:: Nephrology Reason for Consultation:: hyponatremia - History of Present Illness Chief Complaint: dizziness and nausea History of Present Illness: Pt is a 72 year old female with pmhx of hyponatremia, HTN, COPD, HLD, CVA, GERD and epilepsy who presents with dizziness and nausea. She was found to have hyponatremia. Her sodium was 131 last night and 121 this morning. She was given normal saline in between the values. She complains of lower ext edema. She does complain of shortness of breath as well. She is overall a poor historian. She says that she is thirsty and likes to drink water. She has history of hyponatremia which responded to fluid restriction in the past. She denies change in vision or headache. I was called to evaluate her for hyponatremia. 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 Cardio/Vascular: Yes: HTN, Hyperlipdemia Gastrointestinal: Yes: GERD, Hiatal Hernia, Peptic Ulcer Disease Renal/: Yes: Other (hyponatremia) Psych: Yes: Anxiety, Depression Musculoskeletal: Yes: Osteoarthritis Endocrine: Yes: Diabetes Mellitus - Past Surgical History Past Surgical History: Yes: Cataract Removal (bilateral), Joint Replacement (RT KNEE) - Alcohol/Substance Use Hx Alcohol Use: No History of Substance Use: reports: None - Smoking History Smoking history: Never smoked Have you smoked in the past 12 months: No Aproximately how many cigarettes per day: 0 - Social History Usual Living Arrangement: Alone 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, 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 History of Recent Travel: No Home Medications - Allergies Allergies/Adverse Reactions: Allergies Allergy/AdvReac Type Severity Reaction Status Date / Time aspirin Allergy Severe "NERVOUS" Verified 01/02/18 06:12 morphine Allergy Severe "ANXIETY-DE Verified 01/02/18 06:12 SPERATION" - Home Medications Home Medications: Ambulatory Orders Amlodipine Besylate 5 mg PO DAILY 11/06/17 Divalproex Sodium [Depakote] 500 mg PO BID 11/06/17 Famotidine 20 mg PO BID 11/06/17 Lisinopril [Prinivil] 5 mg PO DAILY #30 tablet 11/07/17 Family Disease History - Family Disease History Family History: Denies Review of Systems - Review of Systems Constitutional: reports: Malaise Eyes: reports: No Symptoms HENT: reports: No Symptoms Neck: reports: No Symptoms Cardiovascular: reports: Chest Pain, Edema Respiratory: reports: SOB on Exertion Gastrointestinal: reports: No Symptoms Genitourinary: reports: No Symptoms Musculoskeletal: reports: No Symptoms Integumentary: reports: No Symptoms Neurological: reports: No Symptoms Endocrine: reports: No Symptoms Hematology/Lymphatic: reports: No Symptoms Psychiatric: reports: No Symptoms Physical Exam Vital Signs: Vital Signs Temperature 99.1 F 01/02/18 12:17 Pulse Rate 103 H 01/02/18 12:17 Respiratory Rate 18 01/02/18 12:17 Blood Pressure 199/83 H 01/02/18 12:17 O2 Sat by Pulse Oximetry (%) 99 01/02/18 12:17 Constitutional: Yes: Anxious Eyes: Yes: Conjunctiva Clear HENT: Yes: Atraumatic Cardiovascular: Yes: S1, S2 Respiratory: Yes: Wheezes Gastrointestinal: Yes: Soft Renal/: Yes: WNL Musculoskeletal: Yes: WNL Edema: Yes Edema: LLE: 2+, RLE: 2+ Neurological: Yes: Oriented Psychiatric: Yes: Oriented Labs: CBC, BMP 01/02/18 10:04 01/02/18 14:00 Laboratory Tests 12/14/17 12/23/17 12/24/17 18:34 19:40 18:38 WBC Hgb Sodium 134 L 137 138 12/29/17 01/01/18 01/02/18 20:50 23:38 09:25 WBC Hgb Sodium 134 L 131 L 121 L 01/02/18 01/02/18 10:04 14:00 WBC 9.3 Hgb 10.0 L Sodium 120 L Problem List - Problems (1) Anxiety Code(s): F41.9 - ANXIETY DISORDER, UNSPECIFIED (2) Hyponatremia Code(s): E87.1 - HYPO-OSMOLALITY AND HYPONATREMIA Assessment/Plan Current Medications Generic Name Dose Route Start Last Admin Trade Name Freq PRN Reason Stop Dose Admin Acetaminophen 650 mg 01/02/18 14:24 01/02/18 14:46 Tylenol - PO 650 mg QID PRN Administration PAIN Amlodipine Besylate 5 mg 01/03/18 10:00 Norvasc - PO DAILY KATHERINE Divalproex Sodium 500 mg 01/02/18 22:00 Depakote - PO BID KATHERINE Enoxaparin Sodium 40 mg 01/03/18 10:00 Lovenox - SQ DAILY [facility] Sodium Chloride 1,000 mls @ 100 mls/hr 01/02/18 11:00 01/02/18 11:30 Normal Saline - IV 100 mls/hr ASDIR KATHERINE Administration Lisinopril 5 mg 01/03/18 10:00 Prinivil PO DAILY [facility] Ranitidine HCl 150 mg 01/02/18 22:00 Zantac - PO BID [facility] Impression 1. Hyponatremia 2. CVA 3. HTN 4. HLD 5. arthritis 6. anxiety Plan - d/c fluids - will give a dose of lasix as she is volume overloaded - repeat bmp tonight - restrict free water - admit to monitored floor - discussed with medical team - get cxr - check urine lytes and skin piler - check ua Dr Martinez
[2018-01-02 17:17] LABS: OSMOLALITY,SERUM 256 mosm/kg (278-305)
--- NOTE | 2018-01-02 18:42 | PN ---
Teaching Attending Note Name of Resident: Ted Cruz ATTENDING PHYSICIAN STATEMENT I saw and evaluated the patient. I reviewed the resident's note and discussed the case with the resident. I agree with the resident's findings and plan as documented. SUBJECTIVE: Attempted to obtain subjective from patient but only stated that she felt lightheaded. Would not answer other questions OBJECTIVE: GEN: obese CV: rrr w/o m/r/g PULM: ctab w/o w/r/r ABD: +bs, s/nt/nd EXT: 2+ BLE edema ASSESSMENT AND PLAN: 1. Hyponatremia -significant drop in sodium from 12 hours ago -was 131, now 120 -case d/w Dr Martinez -giving po sodium chloride, 20mg lasix, and fluid restrictionHTN 2. HTN -continue lisinopril and amlodipine
[2018-01-02] MEDS ORDERED: SODIUM CHLORIDE 1 GM TABLET PO ONE (18:50)
[2018-01-02] MEDS ORDERED: FUROSEMIDE 20 MG TABLET (FP) PO ONE (18:50)
[2018-01-02] MEDS ORDERED: FUROSEMIDE 40 MG TABLET (FP) ONE (19:56)
[2018-01-02] MEDS ORDERED: DIVALPROEX SODIUM 250 MG TABLET E.C. PO SCH (22:00)
[2018-01-02] MEDS ORDERED: RANITIDINE HCL 150 MG TABLET (FP) ONE (22:39)
[2018-01-02] MEDS ORDERED: DIVALPROEX SODIUM 500 MG TABLET E.C. ONE (22:39)
[2018-01-02] MEDS: RANITIDINE HCL 150 MG TABLET (FP) PO SCH (22:42)
[2018-01-02 22:46] LABS: URINE APPEARANCE CLEAR; URINE BILIRUBIN NEGATIVE (<2.0 mg/dL); URINE COLOR STRAW; URINE GLUCOSE (UA) NEGATIVE (NEGATIVE); URINE KETONE NEGATIVE (NEGATIVE); URINE LEUK ESTERASE TRACE (NEGATIVE); URINE NITRITE NEGATIVE (NEGATIVE); URINE PROTEIN NEGATIVE (NEGATIVE); URINE UROBILINOGEN NEGATIVE mg/dL (0.2-1.0)
[2018-01-02 22:51] LABS: BLOOD UREA NITROGEN 9 mg/dL (7-18); CREATININE 0.6 mg/dL (0.55-1.3); GLUCOSE,RANDOM 104 mg/dL (74-106)
[2018-01-02 22:52] LABS: ANION GAP 12 MMOL/L (8-16); CALCIUM 8.5 mg/dL (8.5-10.1); CHLORIDE 91 mmol/L (98-107); CO2 25 mmol/L (21-32); POTASSIUM 4.2 mmol/L (3.5-5.1); SODIUM 128 mmol/L (136-145)
[2018-01-02 23:30] LABS: EPI CELLS RARE /HPF (FEW); URINE BACTERIA MANY /hpf (NONE SEEN)
[2018-01-03 05:54] LABS: BASO % 0.5 % (0-2.0); EOS % 3.7 % (0-4.5); HEMATOCRIT 27.8 % (32.4-45.2); HEMOGLOBIN 8.6 GM/dL (10.7-15.3); LYMPH % 19.2 % (8-40); MCH 23.4 pg (25.7-33.7); MCHC 30.9 g/dl (32.0-36.0); MEAN CELL VOLUME 75.8 fl (80-96); MONO % 17.3 % (3.8-10.2); NEUT % 59.3 % (42.8-82.8); PLATELET COUNT 302 K/MM3 (134-434); RBC 3.67 M/mm3 (3.60-5.2); RDW 17.9 % (11.6-15.6); WHITE BLOOD COUNT 6.3 K/mm3 (4.0-10.0)
[2018-01-03 06:20] LABS: ALK PHOS 138 U/L (45-117); ANION GAP 7 MMOL/L (8-16); BILIRUBIN,TOTAL 0.4 mg/dL (0.2-1); BLOOD UREA NITROGEN 14 mg/dL (7-18); CALCIUM 8.3 mg/dL (8.5-10.1); CHLORIDE 96 mmol/L (98-107); CO2 28 mmol/L (21-32); CREATININE 0.7 mg/dL (0.55-1.3); GLUCOSE,RANDOM 99 mg/dL (74-106); MAGNESIUM 2.2 mg/dL (1.8-2.4); PHOSPHOROUS 4.2 mg/dL (2.5-4.9); POTASSIUM 4.1 mmol/L (3.5-5.1); SGOT/AST 24 U/L (15-37); SGPT/ALT 23 U/L (13-61); SODIUM 131 mmol/L (136-145); TOT PROT 6.6 g/dl (6.4-8.2)
[2018-01-03] MEDS ORDERED: amLODIPine BESYLATE 5 MG TABLET (FP) ONE ×2 (08:20→10:19)
[2018-01-03] MEDS ORDERED: DIVALPROEX SODIUM 500 MG TABLET E.C. ONE (08:20)
[2018-01-03] MEDS ORDERED: RANITIDINE HCL 150 MG TABLET (FP) ONE (08:20)
[2018-01-03] MEDS ORDERED: LISINOPRIL 5 MG TABLET (FP) ONE (08:21)
[2018-01-03] MEDS ORDERED: ENOXAPARIN NA (PORCINE) 40 MG/0.4 ML DISP.SYRIN SQ ONE (08:21)
[2018-01-03] MEDS: ENOXAPARIN NA (PORCINE) 40 MG/0.4 ML DISP.SYRIN SQ SCH (10:29)
[2018-01-03] MEDS: amLODIPine BESYLATE 5 MG TABLET (FP) PO SCH (10:29)
[2018-01-03] MEDS: DIVALPROEX SODIUM 500 MG TABLET E.C. PO SCH ×2 (10:29→22:42)
[2018-01-03] MEDS: RANITIDINE HCL 150 MG TABLET (FP) PO SCH ×2 (10:30→21:09)
[2018-01-03] MEDS: LISINOPRIL 5 MG TABLET (FP) PO SCH (10:30)
[2018-01-03] MEDS ORDERED: SODIUM CHLORIDE 1 GM TABLET PO ONE (13:03)
[2018-01-03] MEDS ORDERED: FUROSEMIDE 20 MG TABLET (FP) PO ONE (13:03)
--- NOTE | 2018-01-03 13:03 | PN ---
Progress Note, Physician History of Present Illness: Pt seen and examined at bedside. She is awake and alert. She denies shortness of breath. Sh still complains of lower ext edema. - Current Medication List Current Medications: Active Medications Acetaminophen (Tylenol -) 650 mg PO QID PRN PRN Reason: PAIN Last Admin: 01/02/18 14:46 Dose: 650 mg Amlodipine Besylate (Norvasc -) 5 mg PO DAILY [facility] Last Admin: 01/03/18 10:29 Dose: 5 mg Divalproex Sodium (Depakote -) 500 mg PO BID [facility] Last Admin: 01/03/18 10:29 Dose: 500 mg Enoxaparin Sodium (Lovenox -) 40 mg SQ DAILY [facility] Last Admin: 01/03/18 10:29 Dose: 40 mg Lisinopril (Prinivil) 5 mg PO DAILY [facility] Last Admin: 01/03/18 10:30 Dose: 5 mg Ranitidine HCl (Zantac -) 150 mg PO BID [facility] Last Admin: 01/03/18 10:30 Dose: 150 mg - Objective Vital Signs: Vital Signs Temperature 99.6 F 01/03/18 07:40 Pulse Rate 86 01/03/18 10:15 Respiratory Rate 18 01/03/18 10:15 Blood Pressure 156/78 01/03/18 10:15 O2 Sat by Pulse Oximetry (%) 96 01/03/18 10:15 Constitutional: Yes: Calm Eyes: Yes: Conjunctiva Clear HENT: Yes: Atraumatic Cardiovascular: Yes: S1, S2 Respiratory: Yes: CTA Bilaterally Gastrointestinal: Yes: Soft Genitourinary: Yes: WNL Edema: Yes Edema: LLE: 1+, RLE: 1+ Neurological: Yes: Oriented Psychiatric: Yes: Oriented Labs: CBC, BMP 01/03/18 05:18 01/03/18 05:18 Problem List - Problems (1) Anxiety Code(s): F41.9 - ANXIETY DISORDER, UNSPECIFIED (2) Hyponatremia Code(s): E87.1 - HYPO-OSMOLALITY AND HYPONATREMIA Assessment/Plan Current Medications Generic Name Dose Route Start Last Admin Trade Name Freq PRN Reason Stop Dose Admin Acetaminophen 650 mg 01/02/18 14:24 01/02/18 14:46 Tylenol - PO 650 mg QID PRN Administration PAIN Amlodipine Besylate 5 mg 01/03/18 10:00 01/03/18 10:29 Norvasc - PO 5 mg DAILY KATHERINE Administration Divalproex Sodium 500 mg 01/03/18 10:00 01/03/18 10:29 Depakote - PO 500 mg BID KATHERINE Administration Enoxaparin Sodium 40 mg 01/03/18 10:00 01/03/18 10:29 Lovenox - SQ 40 mg DAILY KATHERINE Administration Lisinopril 5 mg 01/03/18 10:00 01/03/18 10:30 Prinivil PO 5 mg DAILY KATHERINE Administration Ranitidine HCl 150 mg 01/02/18 22:00 01/03/18 10:30 Zantac - PO 150 mg BID KATHERINE Administration Impression 1. Hyponatremia 2. CVA 3. HTN 4. HLD 5. arthritis 6. anxiety Plan - will give another dose of lasix - restrict free water - repeat labs in am - will follow - follow urine lytes - labs reviewed last night as well - do not give saline Dr Martinez
[2018-01-03] MEDS ORDERED: FUROSEMIDE 40 MG TABLET (FP) ONE (14:33)
--- NOTE | 2018-01-03 15:53 | PN ---
Physical Exam: SUBJECTIVE: Patient seen and examined at bedside. No overnight events. No new complaints. Feels much better today. Denies CP,GALLARDO, SOB, abdominal pain, nausea and vomiting. OBJECTIVE: Vital Signs Period Temp Pulse Resp BP Sys/Christensen Pulse Ox Last 24 Hr 98.1 F-99.6 F 73-96 16-20 106-156/69-89 94-100 GENERAL:awake and alert , nad HEAD: NCAT EYES: PERRLA, EOMI, sclera anicteric, conjunctiva clear. No lid lag. EARS, NOSE, THROAT: Moist mucous membranes. NECK: Supple without lymphadenopathy, JVD, or masses. LUNGS:CTAB. No wheezes, and no crackles. No accessory muscle use. HEART: tachycardic, normal S1 and S2 without murmur, rub or gallop. ABDOMEN: Soft, NTND,NABS no guarding, no rebound, no masses. No hepatomegaly or splenomegaly. MUSCULOSKELETAL: Normal range of motion at all joints. No bony deformities or tenderness. No CVA tenderness. LOWER EXTREMITIES: 2+ pulses, warm, well-perfused. No calf tenderness. No peripheral edema. NEUROLOGICAL: Cranial nerves II-XII intact. Normal speech. Laboratory Results - last 24 hr 01/02/18 01/02/18 01/02/18 14:00 22:05 22:31 WBC RBC Hgb Hct MCV MCH MCHC RDW Plt Count MPV Absolute Neuts (auto) Neutrophils % Lymphocytes % Monocytes % Eosinophils % Basophils % Nucleated RBC % Sodium 120 L 128 L Potassium 4.3 4.2 Chloride 86 L 91 L Carbon Dioxide 25 25 Anion Gap 9 12 BUN 9 9 Creatinine 0.5 L 0.6 Creat Clearance w eGFR > 60 > 60 Random Glucose 121 H 104 Serum Osmolality 256 L Calcium 8.6 8.5 Phosphorus Magnesium Total Bilirubin AST ALT Alkaline Phosphatase Total Protein Albumin Urine Color Urine Appearance Urine pH Ur Specific [place] Urine Protein Urine Glucose (UA) Urine Ketones Urine Blood Urine Nitrite Urine Bilirubin Urine Urobilinogen Ur Leukocyte Esterase Urine WBC (Auto) Urine RBC (Auto) Ur Epithelial Cells Urine Bacteria Urine Osmolality Ur Random Sodium Cancelled Ur Random Potassium Ur Random Chloride Urine Creatinine 17.4 L 01/02/18 01/02/18 01/02/18 22:31 22:31 22:31 WBC RBC Hgb Hct MCV MCH MCHC RDW Plt Count MPV Absolute Neuts (auto) Neutrophils % Lymphocytes % Monocytes % Eosinophils % Basophils % Nucleated RBC % Sodium Potassium Chloride Carbon Dioxide Anion Gap BUN Creatinine Creat Clearance w eGFR Random Glucose Serum Osmolality Calcium Phosphorus Magnesium Total Bilirubin AST ALT Alkaline Phosphatase Total Protein Albumin Urine Color Straw Urine Appearance Clear Urine pH 7.0 D Ur Specific [place] 1.004 L Urine Protein Negative Urine Glucose (UA) Negative Urine Ketones Negative Urine Blood 2+ H Urine Nitrite Negative Urine Bilirubin Negative Urine Urobilinogen Negative Ur Leukocyte Esterase Trace Urine WBC (Auto) 9 Urine RBC (Auto) 19 Ur Epithelial Cells Rare Urine Bacteria Many Urine Osmolality 155 L Ur Random Sodium 31 L Ur Random Potassium < 9.0 L Ur Random Chloride 21 L Urine Creatinine 01/03/18 01/03/18 01/03/18 05:18 05:18 05:18 WBC 6.3 RBC 3.67 Hgb 8.6 L Hct 27.8 L MCV 75.8 L MCH 23.4 L MCHC 30.9 L RDW 17.9 H Plt Count 302 MPV 7.0 L Absolute Neuts (auto) 3.7 Neutrophils % 59.3 D Lymphocytes % 19.2 D Monocytes % 17.3 H D Eosinophils % 3.7 D Basophils % 0.5 Nucleated RBC % 0 Sodium 131 L Potassium 4.1 Chloride 96 L Carbon Dioxide 28 Anion Gap 7 L BUN 14 Creatinine 0.7 Creat Clearance w eGFR > 60 Random Glucose 99 Serum Osmolality 278 Calcium 8.3 L Phosphorus 4.2 Magnesium 2.2 Total Bilirubin 0.4 AST 24 ALT 23 Alkaline Phosphatase 138 H Total Protein 6.6 Albumin 3.0 L Urine Color Urine Appearance Urine pH Ur Specific [place] Urine Protein Urine Glucose (UA) Urine Ketones Urine Blood Urine Nitrite Urine Bilirubin Urine Urobilinogen Ur Leukocyte Esterase Urine WBC (Auto) Urine RBC (Auto) Ur Epithelial Cells Urine Bacteria Urine Osmolality Ur Random Sodium Ur Random Potassium Ur Random Chloride Urine Creatinine Active Medications Generic Name Dose Route Start Last Admin Trade Name Freq PRN Reason Stop Dose Admin Acetaminophen 650 mg 01/02/18 14:24 01/02/18 14:46 Tylenol - PO 650 mg QID PRN Administration PAIN Amlodipine Besylate 5 mg 01/03/18 10:00 01/03/18 10:29 Norvasc - PO 5 mg DAILY KATHERINE Administration Divalproex Sodium 500 mg 01/03/18 10:00 11/21/18 10:29 Depakote - PO 500 mg BID KATHERINE Administration Enoxaparin Sodium 40 mg 01/03/18 10:00 01/03/18 10:29 Lovenox - SQ 40 mg DAILY KATHERINE Administration Lisinopril 5 mg 01/03/18 10:00 01/03/18 10:30 Prinivil PO 5 mg DAILY KATHERINE Administration Ranitidine HCl 150 mg 01/02/18 22:00 01/03/18 10:30 Zantac - PO 150 mg BID KATHERINE Administration ASSESSMENT/PLAN: 71 year old female with pmhx of CVA (2009), HTN, HLD, Cataracts w/ corrective surgery, Seizures s/p Brain surgery left meningioma (1999), Chronic anemia, anxiety, GERD/PUD admitted for acute hyponatremia. Problem List - Problems (1) Hyponatremia Assessment/Plan: Has known chronic hyponatremia. * sodium improved to 131 today. * will continue fluid restiction. * lasix 20 mg given yesterday and today with Na+ improvement. * will repeat BMP in am * continue seizure precaution. * follow urine lytes. * nephrology consult appreciated. (2) GERD (gastroesophageal reflux disease) Assessment/Plan: continue protonix. (3) HLD (hyperlipidemia) Assessment/Plan: continue statin (4) HTN (hypertension) Assessment/Plan: continue home regimen. * Amlodipine Besylate (Norvasc -) 5 mg PO DAILY * Lisinopril (Prinivil) 5 mg PO DAILY (5) Seizure disorder Assessment/Plan: cont. depakote. Visit type - Emergency Visit Emergency Visit: Yes ED Registration Date: 01/02/18 Care time: The patient presented to the Emergency Department on the above date and was hospitalized for further evaluation of their emergent condition. - New Patient This patient is new to me today: No - Critical Care Critical Care patient: No
[2018-01-03] MEDS ORDERED: PT OWN MED DRAWER 7, Y5N ONE (21:03)
[2018-01-03] MEDS: ACETAMINOPHEN 325 MG TABLET (FP) PO PRN (21:06)
[2018-01-04] MEDS: ACETAMINOPHEN 325 MG TABLET (FP) PO PRN (02:12)
[2018-01-04 08:02] LABS: ANION GAP 9 MMOL/L (8-16); BLOOD UREA NITROGEN 20 mg/dL (7-18); CALCIUM 7.8 mg/dL (8.5-10.1); CHLORIDE 100 mmol/L (98-107); CO2 26 mmol/L (21-32); CREATININE 0.7 mg/dL (0.55-1.3); GLUCOSE,RANDOM 106 mg/dL (74-106); POTASSIUM 4.1 mmol/L (3.5-5.1); SODIUM 135 mmol/L (136-145)
[2018-01-04] MEDS ORDERED: INSULIN (NOVOLOG) ASPART 100 UNITS/ML 10ML VIAL ONE (11:38)
[2018-01-04] MEDS ORDERED: PT OWN MED DRAWER 7, Y5N ONE (11:38)
--- NOTE | 2018-01-04 12:29 | PN ---
Progress Note, Physician History of Present Illness: Pt seen and examined at bedside. She is awake and appears comfortable. - Current Medication List Current Medications: Active Medications Acetaminophen (Tylenol -) 650 mg PO QID PRN PRN Reason: PAIN Last Admin: 01/04/18 02:12 Dose: 650 mg Amlodipine Besylate (Norvasc -) 5 mg PO DAILY [facility] Last Admin: 01/03/18 10:29 Dose: 5 mg Divalproex Sodium (Depakote -) 500 mg PO BID [facility] Last Admin: 01/03/18 22:42 Dose: 500 mg Enoxaparin Sodium (Lovenox -) 40 mg SQ DAILY [facility] Last Admin: 01/03/18 10:29 Dose: 40 mg Lisinopril (Prinivil) 5 mg PO DAILY [facility] Last Admin: 01/03/18 10:30 Dose: 5 mg Ranitidine HCl (Zantac -) 150 mg PO BID [facility] Last Admin: 01/03/18 21:09 Dose: 150 mg - Objective Vital Signs: Vital Signs Temperature 98.1 F 01/04/18 05:00 Pulse Rate 78 01/04/18 09:00 Respiratory Rate 22 H 01/04/18 09:00 Blood Pressure 132/84 01/04/18 09:00 O2 Sat by Pulse Oximetry (%) 98 01/04/18 09:00 Constitutional: Yes: Calm Eyes: Yes: Conjunctiva Clear HENT: Yes: Atraumatic Neck: Yes: Supple Cardiovascular: Yes: S1, S2 Respiratory: Yes: CTA Bilaterally Gastrointestinal: Yes: Soft Genitourinary: Yes: WNL Musculoskeletal: Yes: WNL Edema: No Neurological: Yes: Oriented Psychiatric: Yes: Oriented Labs: CBC, BMP 01/03/18 05:18 01/04/18 05:15 Problem List - Problems (1) Anxiety Code(s): F41.9 - ANXIETY DISORDER, UNSPECIFIED (2) Hyponatremia Code(s): E87.1 - HYPO-OSMOLALITY AND HYPONATREMIA Assessment/Plan Current Medications Generic Name Dose Route Start Last Admin Trade Name Freq PRN Reason Stop Dose Admin Acetaminophen 650 mg 01/02/18 14:24 01/04/18 02:12 Tylenol - PO 650 mg QID PRN Administration PAIN Amlodipine Besylate 5 mg 01/03/18 10:00 01/03/18 10:29 Norvasc - PO 5 mg DAILY KATHERINE Administration Divalproex Sodium 500 mg 01/03/18 10:00 01/03/18 22:42 Depakote - PO 500 mg BID KATHERINE Administration Enoxaparin Sodium 40 mg 01/03/18 10:00 01/03/18 10:29 Lovenox - SQ 40 mg DAILY KATHERINE Administration Lisinopril 5 mg 01/03/18 10:00 01/03/18 10:30 Prinivil PO 5 mg DAILY KATHERINE Administration Ranitidine HCl 150 mg 01/02/18 22:00 01/03/18 21:09 Zantac - PO 150 mg BID KATHERINE Administration Impression 1. Hyponatremia 2. CVA 3. HTN 4. HLD 5. arthritis 6. anxiety Plan - sodium is stable - restrict free water - can hold of lasix as edema is improved - can see pt is office - discussed with medical team - do not give saline Dr Martinez
[2018-01-04] MEDS: LISINOPRIL 5 MG TABLET (FP) PO SCH (12:45)
[2018-01-04] MEDS: DIVALPROEX SODIUM 500 MG TABLET E.C. PO SCH (12:45)
[2018-01-04] MEDS: amLODIPine BESYLATE 5 MG TABLET (FP) PO SCH (12:45)
[2018-01-04] MEDS: RANITIDINE HCL 150 MG TABLET (FP) PO SCH (12:45)
[2018-01-04] MEDS: ENOXAPARIN NA (PORCINE) 40 MG/0.4 ML DISP.SYRIN SQ SCH (12:45)
--- NOTE | 2018-01-04 12:46 | PN ---
Physical Exam: SUBJECTIVE: Patient seen and examined at bedside. No overnight events. complaining of some left breast pain which is chronic. Denies GALLARDO, SOB, Abdominal pain, palpitations, nausea or vomiting. OBJECTIVE: Vital Signs Period Temp Pulse Resp BP Sys/Christensen Pulse Ox Last 24 Hr 97.5 F-98.7 F 65-93 18-22 106-134/55-84 96-100 GENERAL:awake and alert , nad HEAD: NCAT EYES: PERRLA, EOMI, sclera anicteric, conjunctiva clear. No lid lag. EARS, NOSE, THROAT: Moist mucous membranes. NECK: Supple without lymphadenopathy, JVD, or masses. LUNGS:CTAB. No wheezes, and no crackles. No accessory muscle use. HEART: tachycardic, normal S1 and S2 without murmur, rub or gallop. ABDOMEN: Soft, NTND,NABS no guarding, no rebound, no masses. No hepatomegaly or splenomegaly. MUSCULOSKELETAL: Normal range of motion at all joints. No bony deformities or tenderness. No CVA tenderness. LOWER EXTREMITIES: 2+ pulses, warm, well-perfused. No calf tenderness. No peripheral edema. NEUROLOGICAL: Cranial nerves II-XII intact. Normal speech. Laboratory Results - last 24 hr 01/04/18 01/04/18 01/04/18 02:55 02:55 05:15 D-Dimer 474 Sodium 135 L Potassium 4.1 Chloride 100 Carbon Dioxide 26 Anion Gap 9 BUN 20 H Creatinine 0.7 Creat Clearance w eGFR > 60 Random Glucose 106 Calcium 7.8 L Troponin I < 0.02 Active Medications Generic Name Dose Route Start Last Admin Trade Name Freq PRN Reason Stop Dose Admin Acetaminophen 650 mg 01/02/18 14:24 01/04/18 02:12 Tylenol - PO 650 mg QID PRN Administration PAIN Amlodipine Besylate 5 mg 01/03/18 10:00 01/03/18 10:29 Norvasc - PO 5 mg DAILY KATHERINE Administration Divalproex Sodium 500 mg 01/03/18 10:00 01/03/18 22:42 Depakote - PO 500 mg BID KATHERINE Administration Enoxaparin Sodium 40 mg 01/03/18 10:00 01/03/18 10:29 Lovenox - SQ 40 mg DAILY KATHERINE Administration Lisinopril 5 mg 01/03/18 10:00 01/03/18 10:30 Prinivil PO 5 mg DAILY KATHERINE Administration Ranitidine HCl 150 mg 01/02/18 22:00 01/03/18 21:09 Zantac - PO 150 mg BID KATHERINE Administration ASSESSMENT/PLAN: 71 year old female with pmhx of CVA (2009), HTN, HLD, Cataracts w/ corrective surgery, Seizures s/p Brain surgery left meningioma (1999), Chronic anemia, anxiety, GERD/PUD admitted for acute hyponatremia. Problem List - Problems (1) Hyponatremia Assessment/Plan: Has known chronic hyponatremia. * sodium improved to 135 today. * will continue fluid restiction. * lasix 20 mg given yesterday with Na+ improvement. * will repeat BMP in am * continue seizure precaution. * nephrology consult appreciated. * D/C planning. (2) GERD (gastroesophageal reflux disease) Assessment/Plan: continue ranitidine. (3) HLD (hyperlipidemia) Assessment/Plan: continue statin (4) HTN (hypertension) Assessment/Plan: continue home regimen. * Amlodipine Besylate (Norvasc -) 5 mg PO DAILY * Lisinopril (Prinivil) 5 mg PO DAILY (5) Seizure disorder Visit type - Emergency Visit Emergency Visit: Yes ED Registration Date: 01/02/18 Care time: The patient presented to the Emergency Department on the above date and was hospitalized for further evaluation of their emergent condition. - New Patient This patient is new to me today: No - Critical Care Critical Care patient: No
--- NOTE | 2018-01-04 13:54 | PN ---
Teaching Attending Note Name of Resident: Ted Cruz ATTENDING PHYSICIAN STATEMENT I saw and evaluated the patient. I reviewed the resident's note and discussed the case with the resident. I agree with the resident's findings and plan as documented. SUBJECTIVE:reported some dark stools this AM. no blood noted. tolerating diet, no abdominal pain. states she had colonoscopy 6 years ago believes it to be normal. denies Cp, SOB, fever, chills, N/V/C/D OBJECTIVE: Last Vital Signs Temp Pulse Resp BP Pulse Ox 98.1 F 78 22 H 132/84 98 01/04/18 05:00 01/04/18 09:00 01/04/18 09:00 01/04/18 09:00 01/04/18 09:00 General NAD CV S1 S2 RRR no murmur/rub/gallop Lungs CTA B/l no wheezing/rales/rhonchi Abdomen soft NT/ND obese rectal deferred (states she is eating and its too uncomfortable) ASSESSMENT AND PLAN: 71 year old pt with PMHx of CVA (2009), HTN, HLD, cataracts w/ corrective surgery, seizures s/p Brain surgery left meningioma (1999), chronic anemia, anxiety, GERD/PUD and chronic hyponatremia presents with dizziness and nausea for one day. 1. Hyponatremia- has hx of chronic hyponatremia with workup done multiple times. lasix given with improvement. now resolved. will need to f/u with neprho as outpatient 2. Black stools- noted for hgb to have dropped from admission. will send for repeat now. pt is hemodynamically stable. Slight uptrend in BUN can be due to lasix and not significantly elevated to suggest GI bleed. if stable can f/u with PMD as outpatient and may need repeat scope 3. Iron def anemia- will repeat Hgb now to ensure it is stable. iron studies done 2 months ago suggest patient would patient would benefit from iron supplementation. does not appear she is on as not on her med list and she denies taking at home (as this can explain dark stools). will need repeat iron studies in 3 months 4. pending on results of repeat CBC may be able to [facility] home today[facility] to have them available tomorrow
[2018-01-04 14:03] LABS: HEMATOCRIT 27.4 % (32.4-45.2); HEMOGLOBIN 9.1 GM/dL (10.7-15.3); MCH 25.4 pg (25.7-33.7); MCHC 33.4 g/dl (32.0-36.0); MEAN CELL VOLUME 75.9 fl (80-96); PLATELET COUNT 335 K/MM3 (134-434); RDW 17.8 % (11.6-15.6); WHITE BLOOD COUNT 5.3 K/mm3 (4.0-10.0)
[2018-01-04 14:22] VITALS: BP 129/66; PULSE 86; TEMP 98.2
--- NOTE | 2018-01-04 16:45 | DS ---
Physical Exam: SUBJECTIVE: Patient seen and examined OBJECTIVE: Vital Signs Period Temp Pulse Resp BP Sys/Christensen Pulse Ox Last 24 Hr 97.5 F-98.7 F 65-86 18-22 116-132/55-84 96-98 PHYSICAL EXAM GENERAL: The patient is awake, alert, and fully oriented, in no acute distress. HEAD: Normal with no signs of trauma. EYES: PERRL, extraocular movements intact, sclera anicteric, conjunctiva clear. ENT: Ears normal, nares patent, oropharynx clear without exudates, moist mucous membranes. NECK: Trachea midline, full range of motion, supple. LUNGS: Breath sounds equal, clear to auscultation bilaterally, no wheezes, no crackles, no accessory muscle use. HEART: Regular rate and rhythm, S1, S2 without murmur, rub or gallop. ABDOMEN: Soft, nontender, nondistended, normoactive bowel sounds, no guarding, no rebound, no hepatosplenomegaly, no masses. EXTREMITIES: 2+ pulses, warm, well-perfused, no edema. NEUROLOGICAL: Cranial nerves II through XII grossly intact. Normal speech, gait not observed. PSYCH: Normal mood, normal affect. SKIN: Warm, dry, normal turgor, no rashes or lesions noted. LABS Laboratory Results - last 24 hr 01/04/18 01/04/18 01/04/18 02:55 02:55 05:15 WBC RBC Hgb Hct MCV MCH MCHC RDW Plt Count MPV D-Dimer 474 Sodium 135 L Potassium 4.1 Chloride 100 Carbon Dioxide 26 Anion Gap 9 BUN 20 H Creatinine 0.7 Creat Clearance w eGFR > 60 Random Glucose 106 Calcium 7.8 L Troponin I < 0.02 01/04/18 13:52 WBC 5.3 RBC 3.60 Hgb 9.1 L Hct 27.4 L MCV 75.9 L MCH 25.4 L MCHC 33.4 RDW 17.8 H Plt Count 335 MPV 7.0 L D-Dimer Sodium Potassium Chloride Carbon Dioxide Anion Gap BUN Creatinine Creat Clearance w eGFR Random Glucose Calcium Troponin I HOSPITAL COURSE: Date of Admission:01/02/18 Date of Discharge: 01/04/18 Discharge Summary Reason For Visit: HYPONATREMIA Current Active Problems Anxiety (Acute) Hyponatremia (Acute) Seizure disorder (Acute) Condition: Improved - Instructions Diet, Activity, Other Instructions: You have been seen and treated for low salt. Please try to limit the amount of water you drink in a day. Increase activity as tolerated. Resume a regular diet. Resume your home medications a previously perscribed. If you experience new onset on confusion, fever or chills please return to ER immediately. Follow up with your primary doctor in 1 week. Referrals: Waldo Mabry MD [Staff Physician] - 1 Week Disposition: HOME - Home Medications Comprehensive Discharge Medication List: Ambulatory Orders Amlodipine Besylate 5 mg PO DAILY 11/06/17 Divalproex Sodium [Depakote] 500 mg PO BID 11/06/17 Famotidine 20 mg PO BID 11/06/17 Lisinopril [Prinivil] 5 mg PO DAILY #30 tablet 11/07/17 Problem List - Problems (1) Hyponatremia (2) GERD (gastroesophageal reflux disease) (3) HLD (hyperlipidemia) (4) HTN (hypertension) (5) Seizure disorder
[2018-01-04] MEDS ORDERED: FERROUS SO4 325 MG TABLET (FP) PO SCH (17:30)
--- NOTE | 2018-01-05 10:09 | EKG ---
Test Reason : Blood Pressure : / mmHG Vent. Rate : 076 BPM Atrial Rate : 076 BPM P-R Int : 162 ms QRS Dur : 084 ms QT Int : 418 ms P-R-T Axes : 041 001 016 degrees QTc Int : 470 ms NORMAL SINUS RHYTHM NORMAL ECG WHEN COMPARED WITH ECG OF 02-JAN-2018 08:32, NO SIGNIFICANT CHANGE WAS FOUND Confirmed by LARA SARMIENTO MD ([id number]) on 01/05/2018 10:09:08 AM Referred By: Confirmed By:LARA SARMIENTO MD
== END 2018-01-04 17:35 | disposition home or self-care (01) | DRG 641 ==
LOC: JER 05:52 → JERBED 10:24 → J4W 01-03 15:23
PROVIDERS: ADMIT Internal Medicine; ATTEND Internal Medicine
DX: E87.1 Hypo-osmolality and hyponatremia (principal); D50.9 Iron deficiency anemia, unspecified; I10 Essential (primary) hypertension; J44.9 Chronic obstructive pulmonary disease, unspecified; K21.9 Gastro-esophageal reflux disease without esophagitis; E87.70 Fluid overload, unspecified; E78.5 Hyperlipidemia, unspecified; R56.9 Unspecified convulsions; I69.318 Other symptoms and signs involving cognitive functions following cerebral infarction; I69.398 Other sequelae of cerebral infarction; Z96.653 Presence of artificial knee joint, bilateral; E66.9 Obesity, unspecified; Z68.31 Body mass index [BMI] 31.0-31.9, adult; F41.9 Anxiety disorder, unspecified; M19.90 Unspecified osteoarthritis, unspecified site
CPT/HCPCS: 36415; 71045-TC-FY; 80048; 80053; 81003; 81015; 82436; 82550; 82570; 83735; 83930; 83935; 84100; 84133; 84300; 84484; 85025; 85027; 85379; 87070; 93005; 93010; 99281-25; 99282-25; 99284-25; 99285-25; J7030

== ENCOUNTER 2018-01-06 19:16 | Emergency (ER) | payer OTHER ==
[2018-01-06 19:45] VITALS: BP 126/55; PULSE 93; TEMP 98.6; BMI 32.1
[2018-01-06] MEDS ORDERED: ACETAMINOPHEN 325 MG TABLET (FP) PO ONE (19:57)
[2018-01-06] MEDS ORDERED: ACETAMINOPHEN 325 MG TABLET (FP) ONE (20:07)
--- NOTE | 2018-01-06 20:10 | PDOC ---
History of Present Illness - General Chief Complaint: Chest Pain Stated Complaint: CHEST PAIN Time Seen by Provider: 01/06/18 20:08 History Source: Patient Exam Limitations: No Limitations - History of Present Illness Initial Comments: 01/06/18 20:14 72 yr female with c/o chest pain . pt denies pain at present, states she had left sided chest "throbbing" about 2 hrs ago. Pt recently dc from this hospital was admitted for hyponatremia. Pt currently denies headache or vomiting. Past History - Past Medical History Allergies/Adverse Reactions: Allergies Allergy/AdvReac Type Severity Reaction Status Date / Time aspirin Allergy Severe "NERVOUS" Verified 01/06/18 19:44 morphine Allergy Severe "ANXIETY-DE Verified 01/06/18 19:44 SPERATION" Home Medications: Ambulatory Orders Amlodipine Besylate 5 mg PO DAILY 11/06/17 Divalproex Sodium [Depakote] 500 mg PO BID 11/06/17 Famotidine 20 mg PO BID 11/06/17 Lisinopril [Prinivil] 5 mg PO DAILY #30 tablet 11/07/17 Anemia: Yes Asthma: No Cancer: No Cardiac Disorders: Yes (Chest pain) 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, baseline confusion and dizziness) COPD: Yes CHF: No DVT: No Dementia: No Diabetes: Yes GI Disorders: Yes (gerd, gastric ulcer, dysphagia) Disorders: Yes (kidney stone in the past) HTN: Yes Hypercholesterolemia: Yes Liver Disease: No Psychiatric Problems: Yes (ANXIETY DEPRESSION) Seizures: Yes (S/P craniotomy for benign tumor - on Depakote for seizure prophylaxis) Thyroid Disease: No - Surgical History Abdominal Surgery: Yes Appendectomy: No Cardiac Surgery: No Cholecystectomy: Yes Lung Surgery: No Neurologic Surgery: Yes (removal left meningioma, craniotomy) Orthopedic Surgery: Yes (bilat knee replacement) - Immunization History Td Vaccination: Yes TDAP Vaccination: No Immunization Up to Date: Yes - Suicide/Smoking/Psychosocial Hx Smoking Status: No Smoking History: Never smoked Have you smoked in the past 12 months: No Number of Cigarettes Smoked Daily: 0 Cigars Per Day: 0 Information on smoking cessation initiated: No Hx Alcohol Use: No Drug/Substance Use Hx: No Substance Use Type: None Hx Substance Use Treatment: No Cardiac Specific PMH - Complaint Specific PMHX Pacemaker: No Review of Systems - Review of Systems Able to Perform ROS?: Yes Is the patient limited [place] proficient: Yes Constitutional: No: Symptoms Reported HEENTM: No: Symptoms Reported Respiratory: No: Symptoms reported Cardiac (ROS): Yes: Symptoms Reported, Chest Pain ABD/GI: No: Symptoms Reported : No: Symptoms Reported Musculoskeletal: No: Symptoms Reported Integumentary: No: Symptoms Reported Neurological: No: Symptoms reported *Physical Exam - Vital Signs Last Vital Signs Temp Pulse Resp BP Pulse Ox 98.6 F 93 H 16 126/55 L 100 01/06/18 19:43 01/06/18 19:43 01/06/18 19:43 01/06/18 19:43 01/06/18 19:43 - Physical Exam General Appearance: Yes: Nourished, Appropriately Dressed HEENT: positive: EOMI, KARL Neck: positive: Supple Respiratory/Chest: positive: Lungs Clear, Normal Breath Sounds Cardiovascular: positive: Regular Rhythm, Regular Rate. negative: Tachycardia Musculoskeletal: positive: Normal Inspection Extremity: positive: Normal Capillary Refill, Normal Inspection, Normal Range of Motion Integumentary: positive: Normal Color, Dry, Warm Neurologic: positive: rn international II-XII NML intact, Fully Oriented, Alert, Normal Mood/ Affect ED Treatment Course - ADDITIONAL ORDERS Additional order review: Laboratory Results 01/06/18 20:20 Creatine Kinase 70 Troponin I < 0.02 - Medications Given in the ED: ED Medications Discontinued Medications Generic Name Dose Route Start Last Admin Trade Name Yonathanq PRN Reason Stop Dose Admin Acetaminophen 650 mg 01/06/18 19:57 01/06/18 20:08 Tylenol - PO 01/06/18 19:58 650 mg ONCE ONE Administration Medical Decision Making - Medical Decision Making 01/06/18 20:14 cc: chest "throbbing" pain 2 hrs ago none know EKG NSR in ER no headache or vomiting neg nausea will check troponin tylenol now 01/06/18 21:04 tropnin is negative, EKG Is NSR no ST elevations dc home , pt is stable denies pain at present all questions asked and answered at discharge. *DC/Admit/Observation/Transfer Diagnosis at time of Disposition: Chest wall pain, chronic - Discharge Dispostion Disposition: HOME Condition at time of disposition: Good - Referrals Referrals: Waldo Mabry MD [Primary Care Provider] - - Patient Instructions Additional Instructions: take tylenol as directed for pain follow with your doctor on MONDAY please rest at home Return if any worsening symptoms - Post Discharge Activity
--- NOTE | 2018-03-30 15:05 | EKG ---
Test Reason : Blood Pressure : / mmHG Vent. Rate : 088 BPM Atrial Rate : 088 BPM P-R Int : 162 ms QRS Dur : 072 ms QT Int : 360 ms P-R-T Axes : 035 009 021 degrees QTc Int : 435 ms NORMAL SINUS RHYTHM NORMAL ECG WHEN COMPARED WITH ECG OF 04-JAN-2018 02:41, NO SIGNIFICANT CHANGE WAS FOUND Confirmed by LARA SARMIENTO MD ([id number]) on 03/30/2018 3:05:17 PM Referred By: MERLIN Confirmed By:LARA SARMIENTO MD
== END 2018-01-06 21:22 | disposition home or self-care (01) ==
LOC: JER 19:16 → JERFT 19:16
DX: R07.89 Other chest pain (principal); D64.9 Anemia, unspecified; J44.9 Chronic obstructive pulmonary disease, unspecified; I10 Essential (primary) hypertension; E78.00 Pure hypercholesterolemia, unspecified; E11.9 Type 2 diabetes mellitus without complications; F41.8 Other specified anxiety disorders; F32.9 Major depressive disorder, single episode, unspecified; Z86.011 Personal history of benign neoplasm of the brain; I69.810 Attention and concentration deficit following other cerebrovascular disease; I69.893 Ataxia following other cerebrovascular disease; Z96.653 Presence of artificial knee joint, bilateral
CPT/HCPCS: 36415; 82550; 84484; 93005; 93010; 99281-25

== ENCOUNTER 2018-01-07 21:11 | Emergency (ER) | payer OTHER ==
[2018-01-07 21:21] VITALS: BP 121/51; PULSE 89; TEMP 98.9; BMI 34.0
--- NOTE | 2018-01-07 21:29 | PDOC ---
History of Present Illness - General Chief Complaint: Chest Pain Stated Complaint: CHEST PAIN Time Seen by Provider: 01/07/18 21:28 - History of Present Illness Initial Comments: 01/07/18 21:38 Ms. Sumner is a 72 yo female w/ pmh of HTN, HLD, COPD, CVA, GERD, seizures, chronic left breast pain who presents for evaluation of 1 day history of left chest pain she reports is typical of her chronic chest pain. She describes the pain as point tendernerness to the left breast. Pain does not radiate and involves no other symptoms. She reports taking some tylenol this morning at home however pain has continued. No other complaints at this time. The patient denies shortness of breath and dizziness. Denies fever, chills, nausea, vomit, diarrhea and constipation. Denies dysuria, frequency, urgency and hematuria. Past History - Past Medical History Allergies/Adverse Reactions: Allergies Allergy/AdvReac Type Severity Reaction Status Date / Time aspirin Allergy Severe "NERVOUS" Verified 01/07/18 21:19 morphine Allergy Severe "ANXIETY-DE Verified 01/07/18 21:19 SPERATION" Home Medications: Ambulatory Orders Amlodipine Besylate 5 mg PO DAILY 11/06/17 Divalproex Sodium [Depakote] 500 mg PO BID 11/06/17 Famotidine 20 mg PO BID 11/06/17 Lisinopril [Prinivil] 5 mg PO DAILY #30 tablet 11/07/17 Anemia: Yes Asthma: No Cancer: No Cardiac Disorders: Yes (Chest pain) 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, baseline confusion and dizziness) COPD: Yes CHF: No DVT: No Dementia: No Diabetes: Yes GI Disorders: Yes (gerd, gastric ulcer, dysphagia) Disorders: Yes (kidney stone in the past) HTN: Yes Hypercholesterolemia: Yes Liver Disease: No Psychiatric Problems: Yes (ANXIETY DEPRESSION) Seizures: Yes (S/P craniotomy for benign tumor - on Depakote for seizure prophylaxis) Thyroid Disease: No - Surgical History Abdominal Surgery: Yes Appendectomy: No Cardiac Surgery: No Cholecystectomy: Yes Lung Surgery: No Neurologic Surgery: Yes (removal left meningioma, craniotomy) Orthopedic Surgery: Yes (bilat knee replacement) - Immunization History Td Vaccination: Yes TDAP Vaccination: No Immunization Up to Date: Yes - Suicide/Smoking/Psychosocial Hx Smoking Status: No Smoking History: Never smoked Have you smoked in the past 12 months: No Number of Cigarettes Smoked Daily: 0 Cigars Per Day: 0 Hx Alcohol Use: No Drug/Substance Use Hx: No Substance Use Type: None Hx Substance Use Treatment: No Review of Systems - Review of Systems Comments:: 01/07/18 21:42 GENERAL/CONSTITUTIONAL: No fever or chills. No weakness. HEAD, EYES, EARS, NOSE AND THROAT: No change in vision. No ear pain or discharge. No sore throat. CARDIOVASCULAR: +Chest pain as described. No shortness of breath RESPIRATORY: No cough, wheezing, or hemoptysis. GASTROINTESTINAL: No nausea, vomiting, diarrhea or constipation. GENITOURINARY: No dysuria, frequency, or change in urination. MUSCULOSKELETAL: No joint or muscle swelling or pain. No neck or back pain. SKIN: No rash NEUROLOGIC: No headache, vertigo, loss of consciousness, or change in strength/ sensation. ENDOCRINE: No increased thirst. No abnormal weight change HEMATOLOGIC/LYMPHATIC: No anemia, easy bleeding, or history of blood clots. ALLERGIC/IMMUNOLOGIC: No hives or skin allergy. *Physical Exam - Vital Signs Last Vital Signs Temp Pulse Resp BP Pulse Ox 98.9 F 89 20 121/51 L 96 01/07/18 21:19 01/07/18 21:19 01/07/18 21:19 01/07/18 21:19 01/07/18 21:19 - Physical Exam Comments: 01/07/18 21:44 GENERAL: Awake, alert, and fully oriented, in no acute distress HEAD: No signs of trauma, normocephalic, atraumatic EYES: PERRLA, EOMI, sclera anicteric, conjunctiva clear ENT: Auricles normal inspection, hearing grossly normal, nares patent, oropharynx clear without exudates. Moist mucosa NECK: Normal ROM, supple, no lymphadenopathy, JVD, or masses LUNGS: +Point tenderness over left breast only. No distress, speaks full sentences, clear to auscultation bilaterally HEART: Regular rate and rhythm, normal S1 and S2, no murmurs, rubs or gallops, peripheral pulses normal and equal bilaterally. ABDOMEN: Soft, nontender, normoactive bowel sounds. No guarding, no rebound. No masses EXTREMITIES: Normal inspection, Normal range of motion, no edema. No clubbing or cyanosis. NEUROLOGICAL: Cranial nerves II through XII grossly intact. Normal speech, normal gait, no focal sensorimotor deficits SKIN: Warm, Dry, normal turgor, no rashes or lesions noted. ED Treatment Course - LABORATORY CBC & Chemistry Diagram: 01/07/18 21:45 Medical Decision Making - Medical Decision Making 01/07/18 21:44 Ms. Sumner is a 72 yo female w/ pmh as described who presents for evaluation of symptoms c/w chronic non-cardiac chest pain. Will evaluate patient with EKG, cardiac labs, and CMP to ensure no cardiac involvement or electrolyte abnormalities. 01/07/18 22:32 Labs grossly wnl as below. CBC at this facility 3 days ago likewise non- concerning. EKG regular rate, regular rhythm, normal access, normal interval, no ST elevations or depressions. Normal EKG.. Attending (Dr. Higgins) discussed patient with Nephew (Ralf) and recommended follow-up with Dr. Hernadez for mammogram. Family member verbalized understanding and will encourage by patient. Discharging patient to home. Laboratory Results - last 24 hr 01/07/18 01/07/18 21:45 21:45 Sodium 137 Potassium 4.6 Chloride 101 Carbon Dioxide 30 Anion Gap 6 L BUN 18 Creatinine 0.6 Creat Clearance w eGFR > 60 Random Glucose 108 H Calcium 8.5 Total Bilirubin 0.2 AST 17 ALT 21 Alkaline Phosphatase 186 H Creatine Kinase 55 Troponin I < 0.02 Total Protein 6.4 Albumin 3.0 L *DC/Admit/Observation/Transfer Diagnosis at time of Disposition: Chest wall pain, chronic - Discharge Dispostion Disposition: HOME - Referrals Referrals: Waldo Mabry MD [Primary Care Provider] - Kory Hernadez MD [Staff Physician] - - Patient Instructions Printed Discharge Instructions: DI for Atypical Chest Pain Additional Instructions: Billie was evaluated today in the ER for her left breast pain. We believe she needs to undergo mammogram for left breast pain evaluation. Please follow-up using provided information for further evaluation. Return to ER if any change in pain, fever, chills, or other concerning symptoms. - Post Discharge Activity
--- NOTE | 2018-01-07 21:31 | PDOC ---
Attending Attestation - HPI HPI: 01/07/18 22:12 The patient is a 72-year-old female with past medical history significant for CVA (2009), HTN, HLD, seizures s/p Brain surgery left meningioma (1999), chronic anemia, anxiety, GERD/PUD, and chronic hyponatremia presents to the emergency department with chest pain and headache. The patient is seen at the ED several time in the past for a similar complaint. The patient reports shes having anterior chest pain, that aggravated with palpation. The patient reports an additional concern of a headache. During prior visits, the patient was recommended to follow up for a mammogram, denies following up. Denies fever , chills, shortness of breath, abdominal pain, urinary symptoms or changes in bowel habits. Allergies: ASA, Morphine. PCP: Dr. Mabry. - Physicial Exam PE: 01/07/18 22:02 GENERAL: Awake, alert, and fully oriented, in no acute distress HEAD: No signs of trauma EYES: PERRLA, EOMI, sclera anicteric, conjunctiva clear ENT: Auricles normal inspection, hearing grossly normal, nares patent, oropharynx clear without exudates. Moist mucosa NECK: Normal ROM, supple, no lymphadenopathy, JVD, or masses LUNGS: Breath sounds equal, clear to auscultation bilaterally. No wheezes, and no crackles HEART: Regular rate and rhythm, normal S1 and S2, no murmurs, rubs or gallops ABDOMEN: Soft, nontender, normoactive bowel sounds. No guarding, no rebound. No masses EXTREMITIES: Normal range of motion, no edema. No clubbing or cyanosis. No cords, erythema, or tenderness NEUROLOGICAL: Cranial nerves II through XII grossly intact. Normal speech. SKIN: Warm, Dry, normal turgor, no rashes or lesions noted - Medical Decision Making 01/07/18 22:03 Documentation prepared by Alexandra Mendoza, acting as medical clerk for Magnolia Higgins DO. <Alexandra Mendoza - Last Filed: 01/07/18 22:12> - Resident Resident Name: Abdoul Burgos - ED Attending Attestation I have performed the following: I have examined & evaluated the patient, The case was reviewed & discussed with the resident, I agree w/resident's findings & plan, Exceptions are as noted - Medical Decision Making 01/07/18 21:31 I, Dr. Magnolia Higgins, DO, attest that this document has been prepared under my direction and personally reviewed by me in its entirety. I further attest, that it accurately reflects all work, treatment, procedures and medical decision -making performed by me. 01/07/18 22:14 a/p: 72yo female with L breast pain and headache -recent admission for hyponatremia -will send ekg, trop, chem -pt was in the ED yesterday with a normal workup -pt has not had a mammogram, not follow up with the PMD -pt requesting tylenol and a turkey sandwich -will monitor and reassess 01/07/18 22:33 case discussed her next of kin - Tom - discussed that the patient needs to follow up her PMD and the breast surgeon for furhter eval of her breast pain. discussed that she needs to have a mammogram as an outpt answered all questions 01/07/18 22:34 trop negative 01/07/18 23:36 labs reviewed na stable stable for d/c to home and follow up outpt <Magnolia Higgins - Last Filed: 01/07/18 23:36> Heart Score/ECG Review - ECG Intrepretation Comment:: 01/07/18 23:35 sinus at 68, nl axis, nl interval, no acute st/t wave findings <Magnolia Higgins - Last Filed: 01/07/18 23:36>
[2018-01-07] MEDS ORDERED: ACETAMINOPHEN 325 MG TABLET (FP) PO ONE (21:36)
[2018-01-07] MEDS ORDERED: ACETAMINOPHEN 325 MG TABLET (FP) ONE (21:50)
[2018-01-07 22:28] LABS: ALK PHOS 186 U/L (45-117); ANION GAP 6 MMOL/L (8-16); BILIRUBIN,TOTAL 0.2 mg/dL (0.2-1); BLOOD UREA NITROGEN 18 mg/dL (7-18); CALCIUM 8.5 mg/dL (8.5-10.1); CHLORIDE 101 mmol/L (98-107); CO2 30 mmol/L (21-32); CREATININE 0.6 mg/dL (0.55-1.3); GLUCOSE,RANDOM 108 mg/dL (74-106); POTASSIUM 4.6 mmol/L (3.5-5.1); SGOT/AST 17 U/L (15-37); SGPT/ALT 21 U/L (13-61); SODIUM 137 mmol/L (136-145); TOT PROT 6.4 g/dl (6.4-8.2)
--- NOTE | 2018-01-08 10:55 | EKG ---
Test Reason : Blood Pressure : / mmHG Vent. Rate : 068 BPM Atrial Rate : 068 BPM P-R Int : 168 ms QRS Dur : 080 ms QT Int : 402 ms P-R-T Axes : 012 010 020 degrees QTc Int : 427 ms NORMAL SINUS RHYTHM WITH SINUS ARRHYTHMIA NORMAL ECG WHEN COMPARED WITH ECG OF 06-JAN-2018 19:51, NO SIGNIFICANT CHANGE WAS FOUND Confirmed by J LUIS POWELL MD ([id number]) on 01/08/2018 10:54:42 AM Referred By: Confirmed By:J LUIS POWELL MD
== END 2018-01-08 00:46 | disposition home or self-care (01) ==
LOC: JER 21:11
DX: R07.89 Other chest pain (principal); D64.9 Anemia, unspecified; J44.9 Chronic obstructive pulmonary disease, unspecified; I10 Essential (primary) hypertension; E78.00 Pure hypercholesterolemia, unspecified; E11.9 Type 2 diabetes mellitus without complications; F41.8 Other specified anxiety disorders; F32.9 Major depressive disorder, single episode, unspecified; Z86.69 Personal history of other diseases of the nervous system and sense organs; Z87.19 Personal history of other diseases of the digestive system; Z87.442 Personal history of urinary calculi; Z86.011 Personal history of benign neoplasm of the brain; Z96.653 Presence of artificial knee joint, bilateral; I69.893 Ataxia following other cerebrovascular disease; I69.810 Attention and concentration deficit following other cerebrovascular disease
CPT/HCPCS: 36415; 80053; 82550; 84484; 93005; 93010; 99284-25

== ENCOUNTER 2018-01-09 16:35 | Emergency (ER) | payer OTHER ==
[2018-01-09 16:49] VITALS: BMI 30.2
[2018-01-09] MEDS ORDERED: ACETAMINOPHEN 500 MG TABLET (FP) PO ONE (16:49)
[2018-01-09] MEDS ORDERED: ACETAMINOPHEN 325 MG TABLET (FP) ONE ×2 (16:50→19:35)
--- NOTE | 2018-01-09 16:50 | PDOC ---
Rapid Medical Evaluation Chief Complaint: Chest Pain Time Seen by Provider: 01/09/18 16:47 Medical Evaluation: Allergies Allergy/AdvReac Type Severity Reaction Status Date / Time aspirin Allergy Severe "NERVOUS" Verified 01/09/18 16:44 morphine Allergy Severe "ANXIETY-DE Verified 01/09/18 16:44 SPERATION" 01/09/18 16:47 Pt c/o: headache and chest pain since yesterday, requesting tylenol ( none taken today) pt on exam: vss, reproducible left sided CP Pt ordered for: tylenol, ekg, cardiac profile Pt to proceed to the ED Discharge Disposition - Diagnosis Chest pain - Referrals Referrals: Waldo Mabry MD [Primary Care Provider] - - Patient Instructions - Post Discharge Activity
--- NOTE | 2018-01-09 18:13 | PDOC ---
History of Present Illness - General History Source: Patient Exam Limitations: No Limitations <Caleb Canales - Last Filed: 01/09/18 18:18> <Florinda Gallagher - Last Filed: 01/09/18 18:40> - General Chief Complaint: Chest Pain Stated Complaint: CHEST PAIN Time Seen by Provider: 01/09/18 16:47 - History of Present Illness Initial Comments: 01/09/18 18:18 The patient is a 72 year old female, with a significant past medical history of HLD, HTN, COPD, CVA (w/residual altered balance), NIDDM, seizures (2/2 to benign meningioma craniotomy), who presents to the emergency department with, chest pain, headache and constipation. She describes her chest pain as constant and non radiating. She notes this is similar to her previous episodes which she was evaluated for most recently yesterday and 2 days ago (01/07 and 01/06), lab work was done and unremarkable at this time. Patient notes her home health aid is only around during the days and she becomes worried at night. While in the ED , the patient requests Tylenol and a sandwich. She denies any palpitations or shortness of breath. Patient denies any recent weakness, numbness, tingling, syncope. She denies recent fevers, chills, headache or dizziness. She denies recent nausea, vomit, diarrhea or constipation. She denies recent dysuria, frequency, urgency or hematuria. Allergies: Aspirin. Morphine. Past surgical history: Craniotomy. Social history: Nonsmoker. Denies EtOH use and recreational drug use. Primary Care Physician: Dr. Mabry (Caleb Canales) Past History <Caleb Canales - Last Filed: 01/09/18 18:18> - Past Medical History Anemia: Yes Asthma: No Cancer: No Cardiac Disorders: Yes (Chest pain) 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, baseline confusion and dizziness) COPD: Yes CHF: No DVT: No Dementia: No Diabetes: Yes GI Disorders: Yes (gerd, gastric ulcer, dysphagia) Disorders: Yes (kidney stone in the past) HTN: Yes Hypercholesterolemia: Yes Liver Disease: No Psychiatric Problems: Yes (ANXIETY DEPRESSION) Seizures: Yes (S/P craniotomy for benign tumor - on Depakote for seizure prophylaxis) Thyroid Disease: No - Surgical History Abdominal Surgery: Yes Appendectomy: No Cardiac Surgery: No Cholecystectomy: Yes Lung Surgery: No Neurologic Surgery: Yes (removal left meningioma, craniotomy) Orthopedic Surgery: Yes (bilat knee replacement) - Immunization History Td Vaccination: Yes TDAP Vaccination: No Immunization Up to Date: Yes - Suicide/Smoking/Psychosocial Hx Smoking Status: No Smoking History: Never smoked Have you smoked in the past 12 months: No Number of Cigarettes Smoked Daily: 0 Cigars Per Day: 0 Hx Alcohol Use: No Drug/Substance Use Hx: No Substance Use Type: None Hx Substance Use Treatment: No <Florinda Gallagher - Last Filed: 01/09/18 18:40> - Past Medical History Allergies/Adverse Reactions: Allergies Allergy/AdvReac Type Severity Reaction Status Date / Time aspirin Allergy Severe "NERVOUS" Verified 01/09/18 16:44 morphine Allergy Severe "ANXIETY-DE Verified 01/09/18 16:44 SPERATION" Home Medications: Ambulatory Orders Amlodipine Besylate 5 mg PO DAILY 11/06/17 Divalproex Sodium [Depakote] 500 mg PO BID 11/06/17 Famotidine 20 mg PO BID 11/06/17 Lisinopril [Prinivil] 5 mg PO DAILY #30 tablet 11/07/17 Cardiac Specific PMH - Complaint Specific PMHX Pacemaker: No <Florinda Gallagher - Last Filed: 01/09/18 18:40> Review of Systems - Review of Systems Able to Perform ROS?: Yes All Other Systems: Reviewed and Negative <Caleb Canales - Last Filed: 01/09/18 18:18> <Florinda Gallagher - Last Filed: 01/09/18 18:40> - Review of Systems Comments:: 01/09/18 18:19 CONSTITUTIONAL: Absent: fever, no chills, no fatigue EYES: Absent: visual changes ENT: Present: Nose bleed. Absent: ear pain, no sore throat CARDIOVASCULAR: Present: Chest pain. Absent: no palpitations RESPIRATORY: Absent: cough, no SOB GI: Absent: abdominal pain, no nausea, no vomiting, no constipation, no diarrhea GENITOURINARY: Absent: dysuria, no frequency, no hematuria MUSKULOSKELETAL: Absent: back pain, no arthralgia, no myalgia SKIN: Absent: rash NEURO: Present: headache (Caleb Canales) *Physical Exam <Caleb Canales - Last Filed: 01/09/18 18:18> <Florinda Gallagher - Last Filed: 01/09/18 18:40> - Vital Signs Last Vital Signs Temp Pulse Resp BP Pulse Ox 98.2 F 89 16 158/67 98 01/09/18 16:46 01/09/18 16:46 01/09/18 16:46 01/09/18 16:46 01/09/18 17:15 - Physical Exam Comments: 01/09/18 18:19 GENERAL: Well developed, well nourished. Awake and alert. No acute distress. +HEENT: Mild anterior nosebleed. Normocephalic, atraumatic. PERRLA, EOMI. No conjunctival pallor. Sclera are non-icteric. Moist mucous membranes. Oropharynx is clear. NECK: Supple. Full ROM. No JVD. Carotid pulses 2+ and symmetric, without bruits. No thyromegaly. No lymphadenopathy. CARDIOVASCULAR: Regular rate and rhythm. No murmurs, rubs, or gallops. Distal pulses are 2+ and symmetric. PULMONARY: No evidence of respiratory distress. Lungs clear to auscultation bilaterally. No wheezing, rales or rhonchi. ABDOMINAL: Soft. Non-tender. Non-distended. No rebound or guarding. No organomegaly. Normoactive bowel sounds. MUSCULOSKELETAL Normal range of motion at all joints. No bony deformities or tenderness. No CVA tenderness. EXTREMITIES: No cyanosis. No clubbing. No edema. No calf tenderness. SKIN: Warm and dry. Normal capillary refill. No rashes. No jaundice. NEUROLOGICAL: Alert and oriented X3. appropriate. Cranial nerves 2-12 intact. No deficits to light touch and temperature in face, upper extremities and lower extremities. No motor deficits in the in face, upper extremities and lower extremities. Normoreflexic in the upper and lower extremities. Normal speech. Toes are down- going bilaterally. Gait is normal without ataxia. +PSYCHIATRIC: Anxious. Cooperative. Good eye contact. Appropriate mood and affect. (Caleb Canales) - Procedure Monitoring Vital Signs: Procedure Monitoring Vital Signs Temperature 98.2 F 01/09/18 16:46 Pulse Rate 89 01/09/18 16:46 Respiratory Rate 16 01/09/18 16:46 Blood Pressure 158/67 01/09/18 16:46 O2 Sat by Pulse Oximetry (%) 98 01/09/18 17:15 - ADDITIONAL ORDERS Additional order review: Laboratory Results 01/09/18 17:18 Creatine Kinase 92 Troponin I < 0.02 - Medications Given in the ED: ED Medications Discontinued Medications Generic Name Dose Route Start Last Admin Trade Name Chance PRN Reason Stop Dose Admin Acetaminophen 975 mg 01/09/18 16:49 01/09/18 17:04 Tylenol - PO 01/09/18 16:50 975 mg ONCE ONE Administration Medical Decision Making <Caleb Canales - Last Filed: 01/09/18 18:18> <Florinda Gallagher - Last Filed: 01/09/18 18:40> - Medical Decision Making 01/09/18 18:27 ekg is nsr@92 bpm, no ischemia. Ekg is unchanged from her last ekg trop is negative pt has chronic chest pain and has been seen in our ER on a regular basis with this complaint 01/09/18 18:34 This patient had an echo done 10/12/2017 . Ejection fraction was 55-60%, is normal LV function, there is no regional wall motion abnormality plan no signs of acute ischemia/discharged home (Florinda Gallagher) *DC/Admit/Observation/Transfer <Caleb Canales - Last Filed: 01/09/18 18:18> <Florinda Gallagher - Last Filed: 01/09/18 18:40> Diagnosis at time of Disposition: Atypical chest pain - Discharge Dispostion Disposition: HOME Condition at time of disposition: Good - Referrals Referrals: Waldo Mabry MD [Primary Care Provider] - - Patient Instructions Printed Discharge Instructions: DI for Atypical Chest Pain Additional Instructions: please follow up with your regular physician - Post Discharge Activity - Attestations Scribe Attestion: 01/09/18 18:19 Documentation prepared by Caleb Canales, acting as medical records secretary for Florinda Gallagher MD. (Caleb Canales)
[2018-01-09 19:44] VITALS: BP 150/40; PULSE 84; TEMP 98.7
--- NOTE | 2018-01-10 11:47 | EKG ---
Test Reason : Blood Pressure : / mmHG Vent. Rate : 092 BPM Atrial Rate : 092 BPM P-R Int : 156 ms QRS Dur : 080 ms QT Int : 356 ms P-R-T Axes : 032 000 030 degrees QTc Int : 440 ms NORMAL SINUS RHYTHM NORMAL ECG WHEN COMPARED WITH ECG OF 07-JAN-2018 23:26, NO SIGNIFICANT CHANGE WAS FOUND Confirmed by ANNITA VENTURA MD ([id number]) on 01/10/2018 11:46:56 AM Referred By: Confirmed By:ANNITA VENTURA MD
== END 2018-01-09 19:47 | disposition home or self-care (01) ==
LOC: JER 16:35
DX: R07.9 Chest pain, unspecified (principal); D64.9 Anemia, unspecified; J44.9 Chronic obstructive pulmonary disease, unspecified; I10 Essential (primary) hypertension; E78.00 Pure hypercholesterolemia, unspecified; E11.9 Type 2 diabetes mellitus without complications; F41.8 Other specified anxiety disorders; Z86.011 Personal history of benign neoplasm of the brain; I69.893 Ataxia following other cerebrovascular disease; I69.810 Attention and concentration deficit following other cerebrovascular disease; Z96.653 Presence of artificial knee joint, bilateral; Z87.19 Personal history of other diseases of the digestive system
CPT/HCPCS: 36415; 82550; 84484; 93005; 93010; 99284-25

== ENCOUNTER 2018-01-11 17:16 | Emergency (ER) | payer OTHER ==
[2018-01-11] MEDS ORDERED: ACETAMINOPHEN 325 MG TABLET (FP) PO ONE ×2 (17:23→21:41)
--- NOTE | 2018-01-11 17:28 | PDOC ---
Rapid Medical Evaluation Chief Complaint: Chest Pain Time Seen by Provider: 01/11/18 17:26 Medical Evaluation: Allergies Allergy/AdvReac Type Severity Reaction Status Date / Time aspirin Allergy Severe "NERVOUS" Verified 01/09/18 16:44 morphine Allergy Severe "ANXIETY-DE Verified 01/09/18 16:44 SPERATION" 01/11/18 17:26 I have performed a brief in person evaluation of this patient. The patient presents with chief complaint of : chest pain. patient comes to ED every other day with same complains and work-up shows no acute findings Pertinent PE findings: A&O x 3. heart RRR. lungs CTAB. EKG shows NSR. I have ordered the following: EKG, cardiac profile. Tylenol The patient will proceed to the ER for further evaluation. Discharge Disposition - Diagnosis Atypical chest pain - Referrals - Patient Instructions - Post Discharge Activity
[2018-01-11 17:31] VITALS: TEMP 98.2; BMI 29.1
--- NOTE | 2018-01-11 17:45 | PDOC ---
History of Present Illness - General Chief Complaint: Chest Pain Stated Complaint: CHEST PAIN Time Seen by Provider: 01/11/18 17:26 - History of Present Illness Initial Comments: 72 year old female with PMH of HLD, HTN, COPD, CVA (w/residual altered balance) , NIDDM, seizures (2/2 to benign meningioma craniotomy)well known to our department presenting with chest pain for the past day. She has multiple presentations for chest pain in the past. Today she complains of left sided chest pressure, non-radiating, co-presenting with nausea and some mild SOB. She admits that this pain worries her greatly. She also admits to a mild headache. Denies any fevers, vomiting, diarrhea, or other symptoms. 01/11/18 17:45 Past History - Past Medical History Allergies/Adverse Reactions: Allergies Allergy/AdvReac Type Severity Reaction Status Date / Time aspirin Allergy Severe "NERVOUS" Verified 01/09/18 16:44 morphine Allergy Severe "ANXIETY-DE Verified 01/09/18 16:44 SPERATION" Home Medications: Ambulatory Orders Amlodipine Besylate 5 mg PO DAILY 11/06/17 Divalproex Sodium [Depakote] 500 mg PO BID 11/06/17 Famotidine 20 mg PO BID 11/06/17 Lisinopril [Prinivil] 5 mg PO DAILY #30 tablet 11/07/17 Anemia: Yes Asthma: No Cancer: No Cardiac Disorders: Yes (Chest pain) 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, baseline confusion and dizziness) COPD: Yes CHF: No DVT: No Dementia: No Diabetes: Yes GI Disorders: Yes (gerd, gastric ulcer, dysphagia) Disorders: Yes (kidney stone in the past) HTN: Yes Hypercholesterolemia: Yes Liver Disease: No Psychiatric Problems: Yes (ANXIETY DEPRESSION) Seizures: Yes (S/P craniotomy for benign tumor - on Depakote for seizure prophylaxis) Thyroid Disease: No - Surgical History Abdominal Surgery: Yes Appendectomy: No Cardiac Surgery: No Cholecystectomy: Yes Lung Surgery: No Neurologic Surgery: Yes (removal left meningioma, craniotomy) Orthopedic Surgery: Yes (bilat knee replacement) - Immunization History Td Vaccination: Yes TDAP Vaccination: No Immunization Up to Date: Yes - Suicide/Smoking/Psychosocial Hx Smoking Status: No Smoking History: Never smoked Have you smoked in the past 12 months: No Number of Cigarettes Smoked Daily: 0 Cigars Per Day: 0 Information on smoking cessation initiated: No Hx Alcohol Use: No Drug/Substance Use Hx: No Substance Use Type: None Hx Substance Use Treatment: No Review of Systems - Review of Systems Constitutional: No: Chills, Diaphoresis, Fever, Loss of Appetite HEENTM: No: Blurred Vision, Tearing, Cataracts Respiratory: Yes: Shortness of Breath. No: Cough, SOB at Rest, Stridor Cardiac (ROS): Yes: Chest Pain. No: Irregular Heart Rate, Palpitations, Syncope ABD/GI: Yes: Nausea. No: Diarrhea, Vomiting : No: Dysuria, Discharge, Frequency Musculoskeletal: No: Back Pain, Neck Pain Integumentary: No: Bruising, Lesions, Lumps, Pallor Neurological: No: Numbness, Paresthesia, Seizure Psychiatric: Yes: Anxiety, Depression Endocrine: No: Flushing Hematologic/Lymphatic: No: Anemia, Blood Clots, Easy Bleeding *Physical Exam - Vital Signs Last Vital Signs Temp Pulse Resp BP Pulse Ox 98.2 F 90 16 150/70 97 01/11/18 17:29 01/11/18 17:29 01/11/18 17:29 01/11/18 17:29 01/11/18 17:29 Moderate Sedation - Procedure Monitoring Vital Signs: Procedure Monitoring Vital Signs Temperature 98.2 F 01/11/18 17:29 Pulse Rate 90 01/11/18 17:29 Respiratory Rate 16 01/11/18 17:29 Blood Pressure 150/70 01/11/18 17:29 O2 Sat by Pulse Oximetry (%) 97 01/11/18 17:29 Medical Decision Making - Medical Decision Making 72 year old pending troponins and basic chest pain work up for moderate risk chest pain. Patient signed out to Dr. Lutz in stable condition. 01/11/18 19:06 *DC/Admit/Observation/Transfer Diagnosis at time of Disposition: Atypical chest pain - Discharge Dispostion Condition at time of disposition: Stable Decision to Admit order: No - Referrals - Patient Instructions - Post Discharge Activity
--- NOTE | 2018-01-11 19:49 | PDOC ---
*Physical Exam - Vital Signs Last Vital Signs Temp Pulse Resp BP Pulse Ox 98.2 F 90 16 150/70 97 01/11/18 17:29 01/11/18 17:29 01/11/18 17:29 01/11/18 17:29 01/11/18 18:09 - Physical Exam Comments: 01/11/18 19:48 GENERAL: Awake, alert, and fully oriented, in no acute distress HEAD: No signs of trauma, normocephalic, atraumatic EYES: PERRLA, EOMI, sclera anicteric, conjunctiva clear ENT: Hearing grossly normal, nares patent, oropharynx clear without exudates. Moist mucosa NECK: Normal ROM, supple, no lymphadenopathy, JVD, or masses LUNGS: No distress, speaks full sentences, clear to auscultation bilaterally HEART: Regular rate and rhythm, normal S1 and S2, no murmurs, rubs or gallops, peripheral pulses normal and equal bilaterally. EXTREMITIES : Normal inspection, Normal range of motion, no edema. No clubbing or cyanosis. SKIN: Warm, Dry, normal turgor, no rashes or lesions noted ED Treatment Course - ADDITIONAL ORDERS Additional order review: Laboratory Results 01/11/18 17:54 Troponin I < 0.02 - Medications Given in the ED: ED Medications Discontinued Medications Generic Name Dose Route Start Last Admin Trade Name Yonathanq PRN Reason Stop Dose Admin Acetaminophen 650 mg 01/11/18 17:23 01/11/18 17:49 Tylenol - PO 01/11/18 17:24 650 mg ONCE ONE Administration Medical Decision Making - Medical Decision Making 01/11/18 19:44 72 year old female with PMH of HLD, HTN, COPD, CVA (w/residual altered balance) , NIDDM, seizures (2/2 to benign meningioma craniotomy), recurrent ED visits, who p/w left sided chest pain while at home, now resolved. VSS, AF. Patient endorsed by Dr. Stahl. ED course noteable unchanged EKG, unremarkable lab eval. ED course: 01/11/18 19:48 Trop: Neg CXR: Unremarkable Patient stable for d/c with return precautions. Advised to f/u with PMD. *DC/Admit/Observation/Transfer Diagnosis at time of Disposition: Atypical chest pain - Discharge Dispostion Condition at time of disposition: Stable - Referrals Referrals: Waldo Mabry MD [Primary Care Provider] - - Patient Instructions Printed Discharge Instructions: DI for Atypical Chest Pain Additional Instructions: Please return to the emergency department with any new or worsening symptoms or concerns. Please follow up with your primary care physician within 72 hours. - Post Discharge Activity - Attestations Physician Attestion: 01/11/18 19:48 I attest to the information provided in this note.
--- NOTE | 2018-01-11 20:46 | PDOC ---
Attending Attestation - Resident Resident Name: Gonzalo Lutz - ED Attending Attestation I have performed the following: I have examined & evaluated the patient, The case was reviewed & discussed with the resident, I agree w/resident's findings & plan, Exceptions are as noted - HPI HPI: 01/11/18 20:47 72y F hx of htn, copd, NIDDM, hl, cva, chronic cp, gerd, sz, presents to the ed with complaint of cp for the past day. Pt ntoes pain is pressure like, nonrdiating associated withsome nausea and sob. PT notes mild headache without any n/v vision changes, neck pain, diarrhea, dysuria, back pain, numbness/ tingling/weakness. on exxam pt in well appearing in no distress card: rrr no mrg pulm: cta b/l abd sof tnontender ext: no edema will obtain screening ekg, trop, basic labs will resasess
[2018-01-11] MEDS ORDERED: ACETAMINOPHEN 325 MG TABLET (FP) ONE (21:59)
[2018-01-11 22:16] VITALS: BP 150/76; PULSE 97
[2018-01-12] MEDS ORDERED: ACETAMINOPHEN 325 MG TABLET (FP) ONE (00:25)
--- NOTE | 2018-01-13 17:25 | EKG ---
Test Reason : Blood Pressure : / mmHG Vent. Rate : 092 BPM Atrial Rate : 092 BPM P-R Int : 158 ms QRS Dur : 072 ms QT Int : 342 ms P-R-T Axes : 042 006 034 degrees QTc Int : 422 ms NORMAL SINUS RHYTHM NORMAL ECG WHEN COMPARED WITH ECG OF 09-JAN-2018 16:39, NO SIGNIFICANT CHANGE WAS FOUND Confirmed by MD NHUNG, MADELEINE ([id number]) on 01/13/2018 5:24:55 PM Referred By: Confirmed By:MADELEINE HOOKER MD
== END 2018-01-12 00:18 | disposition home or self-care (01) ==
LOC: JER 17:16
DX: R07.89 Other chest pain (principal); D64.9 Anemia, unspecified; J44.9 Chronic obstructive pulmonary disease, unspecified; I11.0 Hypertensive heart disease with heart failure; E78.00 Pure hypercholesterolemia, unspecified; E11.9 Type 2 diabetes mellitus without complications; F41.9 Anxiety disorder, unspecified; I69.893 Ataxia following other cerebrovascular disease; I69.810 Attention and concentration deficit following other cerebrovascular disease; Z86.011 Personal history of benign neoplasm of the brain; Z96.653 Presence of artificial knee joint, bilateral; Z86.69 Personal history of other diseases of the nervous system and sense organs; Z87.19 Personal history of other diseases of the digestive system; Z79.84 Long term (current) use of oral hypoglycemic drugs
CPT/HCPCS: 36415; 71046-TC-FY; 84484; 93005; 93010; 99285-25

== ENCOUNTER 2018-01-12 17:52 | Emergency (ER) | payer OTHER ==
--- NOTE | 2018-01-12 17:57 | PDOC ---
Rapid Medical Evaluation Medical Evaluation: Allergies Allergy/AdvReac Type Severity Reaction Status Date / Time aspirin Allergy Severe "NERVOUS" Verified 01/09/18 16:44 morphine Allergy Severe "ANXIETY-DE Verified 01/09/18 16:44 SPERATION" 01/12/18 17:57 I have performed a brief in-person evaluation of this patient. The patient presents with a chief complaint of: CP and GALLARDO x 2 hrs ago. H/o HTN, HLD, CVA w/ residual AMS, COPD, DM, seizures, anxiety. Pt well known to ER staff and has had numerous ED visits for CP, usually discharged from ED. Last visit was yesterday w/ unremarkable w/u Pertinent physical exam findings:Stable and alert I have ordered the following:EKG/CXR and labs The patient will proceed to the ED for further evaluation. Discharge Disposition - Diagnosis Chest pain Qualifiers: Chest pain type: chest pain on breathing Qualified Code(s): R07.1 - Chest pain on breathing; R07.81 - Pleurodynia - Referrals - Patient Instructions - Post Discharge Activity
[2018-01-12] MEDS ORDERED: ACETAMINOPHEN 325 MG TABLET (FP) PO ONE (18:03)
[2018-01-12 18:09] VITALS: BP 115/59; PULSE 95; BMI 29.1
[2018-01-12] MEDS ORDERED: ACETAMINOPHEN 325 MG TABLET (FP) ONE (18:13)
[2018-01-12 18:24] LABS: BASO % 0.4 % (0-2.0); EOS % 2.1 % (0-4.5); HEMATOCRIT 27.5 % (32.4-45.2); HEMOGLOBIN 9.2 GM/dL (10.7-15.3); LYMPH % 22.9 % (8-40); MCH 24.9 pg (25.7-33.7); MCHC 33.4 g/dl (32.0-36.0); MEAN CELL VOLUME 74.7 fl (80-96); MEAN PLT VOLUME 7.1 fl (7.5-11.1); MONO % 15.5 % (3.8-10.2); NEUT % 59.1 % (42.8-82.8); PLATELET COUNT 367 K/MM3 (134-434); RBC 3.68 M/mm3 (3.60-5.2); RDW 17.9 % (11.6-15.6); WHITE BLOOD COUNT 6.5 K/mm3 (4.0-10.0)
[2018-01-12] MEDS ORDERED: SODIUM CHLORIDE 1,000 ML IV STA (18:27)
--- NOTE | 2018-01-12 18:27 | PDOC ---
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 She stated her pain is constant , located to her left chest, nonradiating, no alleviating or aggravating factors. She also complained of headache, nausea. She denied fever, chills, cough, shortness of breath, back pain, abdominal pain, vomiting, diarrhea. Pt has been seen in [facility] ED for similar complaints 10+ times in December 2017. Pt was last admitted to [facility] for hyponatremia (Na = 121) 01/02/18. Past History - Past Medical History Allergies/Adverse Reactions: Allergies Allergy/AdvReac Type Severity Reaction Status Date / Time aspirin Allergy Severe "NERVOUS" Verified 01/09/18 16:44 morphine Allergy Severe "ANXIETY-DE Verified 01/09/18 16:44 SPERATION" Home Medications: Ambulatory Orders Amlodipine Besylate 5 mg PO DAILY 11/06/17 Divalproex Sodium [Depakote] 500 mg PO BID 11/06/17 Famotidine 20 mg PO BID 11/06/17 Lisinopril [Prinivil] 5 mg PO DAILY #30 tablet 11/07/17 Anemia: Yes Asthma: No Cancer: No Cardiac Disorders: Yes (Chest pain) 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, baseline confusion and dizziness) COPD: Yes CHF: No DVT: No Dementia: No Diabetes: Yes GI Disorders: Yes (gerd, gastric ulcer, dysphagia) Disorders: Yes (kidney stone in the past) HTN: Yes Hypercholesterolemia: Yes Liver Disease: No Psychiatric Problems: Yes (ANXIETY DEPRESSION) Seizures: Yes (S/P craniotomy for benign tumor - on Depakote for seizure prophylaxis) Thyroid Disease: No - Surgical History Abdominal Surgery: Yes Appendectomy: No Cardiac Surgery: No Cholecystectomy: Yes Lung Surgery: No Neurologic Surgery: Yes (removal left meningioma, craniotomy) Orthopedic Surgery: Yes (bilat knee replacement) - Immunization History Td Vaccination: Yes TDAP Vaccination: No Immunization Up to Date: Yes - Suicide/Smoking/Psychosocial Hx Smoking Status: No Smoking History: Never smoked Have you smoked in the past 12 months: No Number of Cigarettes Smoked Daily: 0 Cigars Per Day: 0 Hx Alcohol Use: No Drug/Substance Use Hx: No Substance Use Type: None Hx Substance Use Treatment: No Review of Systems - Review of Systems Able to Perform ROS?: Yes Comments:: 01/12/18 18:25 General: denied fever, chills, night sweats, generalized weakness. HEENT: denied sore throat, rhinorrhea, ear pain. Heart: admitted to chest pain. denied syncope, lower extremity swelling, diaphoresis. Respiratory: denied shortness of breath, cough, sputum production, hemoptysis. Abdomen: admitted to nausea. denied abdominal pain, vomiting, diarrhea, constipation, blood in stool. : denied dysuria, increased urinary frequency, hematuria, urinary incontinence , flank pain. Back: denied back pain. Musculoskeletal: denied joint pain, muscle pain, joint swelling. Neurological: admitted to headache. denied dizziness, numbness, tingling, weakness. Skin: denied rash, laceration, abrasion. *Physical Exam - Vital Signs Last Vital Signs Temp Pulse Resp BP Pulse Ox 95 H 24 H 115/59 L 97 01/12/18 17:57 01/12/18 17:57 01/12/18 17:57 01/12/18 17:57 - Physical Exam Comments: 01/12/18 18:26 Constitutional: Well-nourished, Well-developed, appearing stated age. HEENT: head is normocephalic, atraumatic. EOMI. PERRLA. Neck: supple. Full ROM. Heart: regular rhythm. no murmurs, rubs or gallops. Lungs: clear to auscultation bilaterally. no crackles, rhonchi or wheezing. no stridor. Abdomen: soft, nontender. normal bowel sounds. no rebound, guarding, masses. Extremities: Peripheral pulses intact and equal. No lower extremity edema. Neurological: CN 2-12 grossly intact. Moves all four extremities. Psych: awake, alert, oriented x3. Follows commands. Answers questions appropriately. Moderate Sedation - Procedure Monitoring Vital Signs: Procedure Monitoring Vital Signs Temperature Pulse Rate 95 H 01/12/18 17:57 Respiratory Rate 24 H 01/12/18 17:57 Blood Pressure 115/59 L 01/12/18 17:57 O2 Sat by Pulse Oximetry (%) 97 01/12/18 17:57 Procedures - Bedside Ultrasound Other: US Guided IV Remarks: 01/12/18 20:57 US guided IV was placed. A vein was identified in the right AC using compression to distinguish from an artery. A 20 gauge needle was insert and the tip was observed to enter the vein on ultrasound imaging. Flashback was observed and the line was secured. ED Treatment Course - LABORATORY CBC & Chemistry Diagram: 01/12/18 18:16 01/12/18 20:40 - Medications Given in the ED: ED Medications Discontinued Medications Generic Name Dose Route Start Last Admin Trade Name Freq PRN Reason Stop Dose Admin Acetaminophen 650 mg 01/12/18 18:03 01/12/18 18:14 Tylenol - PO 01/12/18 18:04 650 mg ONCE ONE Administration Medical Decision Making - Medical Decision Making 01/12/18 18:26 72 year old female with above PMH presented to ED for chest pain, headache, nausea. Initial Vital Signs Pulse Resp BP Pulse Ox 95 H 24 H 115/59 L 97 01/12/18 17:57 01/12/18 17:57 01/12/18 17:57 01/12/18 17:57 No tachycardia. Tachypnea. Mild hypotension - 1000 cc bolus normal saline ordered No hypoxia on room air Tylenol ordered by RME for pain Pending CBC, CMP, BNP, cardiac enzymes, CXR. EKG performed at 1805: rate 97, sinus rhythm with brief episode of sinus tachycardia that resolved, normal axis, normal intervals, no acute ST changes. Pt ambulating around the department with her walker unassisted. 01/12/18 18:40 CBC WBC 6.5 K/mm3 (4.0-10.0) 01/12/18 18:16 RBC 3.68 M/mm3 (3.60-5.2) 01/12/18 18:16 Hgb 9.2 GM/dL (10.7-15.3) L 01/12/18 18:16 Hct 27.5 % (32.4-45.2) L 01/12/18 18:16 MCV 74.7 fl (80-96) L 01/12/18 18:16 MCH 24.9 pg (25.7-33.7) L 01/12/18 18:16 MCHC 33.4 g/dl (32.0-36.0) 01/12/18 18:16 RDW 17.9 % (11.6-15.6) H 01/12/18 18:16 Plt Count 367 K/MM3 (134-434) 01/12/18 18:16 MPV 7.1 fl (7.5-11.1) L 01/12/18 18:16 Absolute Neuts (auto) 3.9 K/mm3 (1.5-8.0) 01/12/18 18:16 Neutrophils % 59.1 % (42.8-82.8) 01/12/18 18:16 Lymphocytes % 22.9 % (8-40) 01/12/18 18:16 Monocytes % 15.5 % (3.8-10.2) H 01/12/18 18:16 Eosinophils % 2.1 % (0-4.5) 01/12/18 18:16 Basophils % 0.4 % (0-2.0) 01/12/18 18:16 Nucleated RBC % 0 % (0-0) 01/12/18 18:16 No leukocytosis. Mild anemia. Similar to prior. 01/12/18 19:55 CMP Sodium 129 mmol/L (136-145) L 01/12/18 18:16 Potassium 4.5 mmol/L (3.5-5.1) 01/12/18 18:16 Chloride 95 mmol/L (98-107) L 01/12/18 18:16 Carbon Dioxide 23 mmol/L (21-32) 01/12/18 18:16 Anion Gap 11 MMOL/L (8-16) 01/12/18 18:16 BUN 14 mg/dL (7-18) 01/12/18 18:16 Creatinine 0.6 mg/dL (0.55-1.3) 01/12/18 18:16 Creat Clearance w eGFR > 60 (>60) 01/12/18 18:16 Random Glucose 120 mg/dL (74-106) H 01/12/18 18:16 Calcium 8.6 mg/dL (8.5-10.1) 01/12/18 18:16 Total Bilirubin 0.3 mg/dL (0.2-1) 01/12/18 18:16 AST 18 U/L (15-37) 01/12/18 18:16 ALT 21 U/L (13-61) 01/12/18 18:16 Alkaline Phosphatase 157 U/L (45-117) H 01/12/18 18:16 Creatine Kinase 189 IU/L (26-192) 01/12/18 18:16 Troponin I < 0.02 ng/ml (0.00-0.05) 01/12/18 18:16 B-Natriuretic Peptide 272.1 pg/ml (5-125) H 01/12/18 18:16 Total Protein 7.0 g/dl (6.4-8.2) 01/12/18 18:16 Albumin 3.3 g/dl (3.4-5.0) L 01/12/18 18:16 Hyponatremia. - Pt was admitted for hyponatremia 01/02/18. - Will place IV. Normal cardiac enzymes. Mild elevation of BNP. - No crackles on examination. No lower extremity swelling. 01/12/18 20:52 Pt reassessed, sleeping comfortably, awakens to voice. 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 I awoke her by voice multiple times. She continued to refuse to cooperate. US guided IV placed into right AC, see above procedure note. Pt ate two sandwiches. Pending repeat BMP, serum osmol, repeat cardiac enzymes. Pt given urine container and asked to give urine sample. 01/12/18 21:12 CXR my read: no infiltrate, poor inspiration, no change from prior 01/11/18. Pt urinated but did not give a urine sample. Pt alert and oriented x3, refusing to give urine sample. 01/12/18 21:49 CMP Sodium 132 mmol/L (136-145) L 01/12/18 20:40 Potassium 4.5 mmol/L (3.5-5.1) 01/12/18 20:40 Chloride 95 mmol/L (98-107) L 01/12/18 20:40 Carbon Dioxide 26 mmol/L (21-32) 01/12/18 20:40 Anion Gap 10 MMOL/L (8-16) 01/12/18 20:40 BUN 14 mg/dL (7-18) 01/12/18 20:40 Creatinine 0.8 mg/dL (0.55-1.3) 01/12/18 20:40 Creat Clearance w eGFR > 60 (>60) 01/12/18 20:40 Random Glucose 100 mg/dL (74-106) 01/12/18 20:40 Calcium 8.7 mg/dL (8.5-10.1) 01/12/18 20:40 Creatine Kinase 179 IU/L (26-192) 01/12/18 20:40 Creatine Kinase Index 0.6 % (0.0-5.0) 01/12/18 20:40 CK-MB (CK-2) 1.2 ng/mL (0.5-3.6) 01/12/18 20:40 Troponin I < 0.02 ng/ml (0.00-0.05) 01/12/18 20:40 Hyponatremia improving, patient did not receive IV fluid hydration when this lab was taken, pt only ate two sandwiches. Sodium level is now similar to patient's baseline. Repeat cardiac enzymes negative. Serum osmol pending. 01/12/18 22:49 Pt reassessed, sleeping comfortably. Normal serum osmol. 01/13/18 00:32 Pt received IV fluids, sodium likely to be normal at this point. No indication to repeat BMP. Pt reassessed, ambulated unassisted to the bathroom. Neurologically intact, orientedx3. Pt to be discharged. *DC/Admit/Observation/Transfer Diagnosis at time of Disposition: Hyponatremia Chest pain Qualifiers: Chest pain type: chest pain on breathing Qualified Code(s): R07.1 - Chest pain on breathing - Discharge Dispostion Disposition: HOME Condition at time of disposition: Stable Decision to Admit order: No - Referrals - Patient Instructions Printed Discharge Instructions: DI for Hyponatremia Additional Instructions: You were seen today for chest pain. Your EKG and chest X-ray was normal. Your heart lab tests were normal. Your sodium (salt) was low. We gave you sandwiches and IV fluids and the level improved. Follow up with your primary care doctor in 1-2 days. Your care is not complete until you follow up. Return to the Emergency Department for increasing pain, chest pain, shortness of breath, palpitations, confusion, weakness, numbness or any other new, worsening or concerning symptoms. Te vieron hoy por dolor en el pecho. Perla ECG y la radiografa de trax perry normales. Las pruebas de laboratorio de tu corazn fueron normales. Perla sodio (hira) estaba bajo. Te dimos sndwiches y lquidos por va intravenosa y el nivel mejor. Louisa un seguimiento con perla mdico de atencin primaria en 1-2 lucio. Perla atencin no est completa hasta que louisa un seguimiento. Regrese al Departamento de Emergencias para aumentar el dolor, el dolor en el pecho, la falta de aliento, las palpitaciones, la confusin, la debilidad, el adormecimiento o cualquier otro sntoma nuevo, que empeore o relacionado con los sntomas. - Post Discharge Activity
--- NOTE | 2018-01-12 18:59 | PDOC ---
Attending Attestation - Resident Resident Name: Sue Menendez - ED Attending Attestation I have performed the following: I have examined & evaluated the patient, The case was reviewed & discussed with the resident, I agree w/resident's findings & plan, Exceptions are as noted - HPI HPI: 01/12/18 18:58 72 yo F with h/o HTN, HLD, NIDDM, chronic anemia, hyponatremia, COPD, CVA h/o seizures very well known to ed department and myself here witih c/o chest pain and a headache. pt has frequent visit for the same. no f/c no n/v no leg swelling. was given tylenol in triage with some relief. - Physicial Exam PE: 01/12/18 18:59 awake alert lungs clear bilaterally heart rrr no mrg abd soft nt nd. ext wwp no edema. nuero alert oriented x 3. - Medical Decision Making 01/12/18 18:59 plan ekg tylneol labs including troponin and basics. and reassess. ekg unchanged from prior Heart Score/ECG Review #1 General ECG Interpretation: Sinus Rhythm, Normal Rate (97), Normal Intervals, No acute ischemic changes
[2018-01-12 19:37] LABS: ALBUMIN 3.3 g/dl (3.4-5.0); ALK PHOS 157 U/L (45-117); ANION GAP 11 MMOL/L (8-16); BILIRUBIN,TOTAL 0.3 mg/dL (0.2-1); BLOOD UREA NITROGEN 14 mg/dL (7-18); CALCIUM 8.6 mg/dL (8.5-10.1); CHLORIDE 95 mmol/L (98-107); CO2 23 mmol/L (21-32); CREATININE 0.6 mg/dL (0.55-1.3); GLUCOSE,RANDOM 120 mg/dL (74-106); POTASSIUM 4.5 mmol/L (3.5-5.1); SGOT/AST 18 U/L (15-37); SGPT/ALT 21 U/L (13-61); SODIUM 129 mmol/L (136-145)
--- NOTE | 2018-01-12 20:44 | PDOC ---
*Physical Exam - Vital Signs Last Vital Signs Temp Pulse Resp BP Pulse Ox 95 H 24 H 115/59 L 97 01/12/18 17:57 01/12/18 17:57 01/12/18 17:57 01/12/18 17:57 ED Treatment Course - LABORATORY CBC & Chemistry Diagram: 01/12/18 18:16 01/12/18 18:16 - ADDITIONAL ORDERS Additional order review: Laboratory Results 01/12/18 01/12/18 18:16 18:16 Sodium 129 L Potassium 4.5 Chloride 95 L Carbon Dioxide 23 Anion Gap 11 BUN 14 Creatinine 0.6 Creat Clearance w eGFR > 60 Random Glucose 120 H Calcium 8.6 Total Bilirubin 0.3 AST 18 ALT 21 Alkaline Phosphatase 157 H Creatine Kinase 189 Creatine Kinase Index 0.6 CK-MB (CK-2) 1.2 Troponin I < 0.02 B-Natriuretic Peptide 272.1 H Total Protein 7.0 Albumin 3.3 L 01/12/18 18:16 RBC 3.68 MCV 74.7 L MCHC 33.4 RDW 17.9 H MPV 7.1 L Neutrophils % 59.1 Lymphocytes % 22.9 Monocytes % 15.5 H Eosinophils % 2.1 Basophils % 0.4 - Medications Given in the ED: ED Medications Discontinued Medications Generic Name Dose Route Start Last Admin Trade Name Freq PRN Reason Stop Dose Admin Acetaminophen 650 mg 01/12/18 18:03 01/12/18 18:14 Tylenol - PO 01/12/18 18:04 650 mg ONCE ONE Administration Sodium Chloride 1,000 mls @ 1,000 mls/hr 01/12/18 18:27 01/12/18 18:41 Normal Saline - IV 01/12/18 19:26 1,000 mls/hr ASDIR STA Administration Medical Decision Making - Medical Decision Making 01/12/18 20:43 Pt has low Na and CL. She will be hydrated in the ER with saline bolus. Pt has never had elevated BNP in the past 90 days. She is stable to get a L bolus of saline. Other than that her labs are normal She will be reevaluated after bolus. *DC/Admit/Observation/Transfer Diagnosis at time of Disposition: Chest pain Qualifiers: Chest pain type: chest pain on breathing Qualified Code(s): R07.1 - Chest pain on breathing - Referrals - Patient Instructions - Post Discharge Activity
[2018-01-12] MEDS ORDERED: SODIUM CHLORIDE 1,000 ML IV SCH (20:45)
[2018-01-12 21:19] LABS: ANION GAP 10 MMOL/L (8-16); BLOOD UREA NITROGEN 14 mg/dL (7-18); CALCIUM 8.7 mg/dL (8.5-10.1); CHLORIDE 95 mmol/L (98-107); CO2 26 mmol/L (21-32); CREATININE 0.8 mg/dL (0.55-1.3); GLUCOSE,RANDOM 100 mg/dL (74-106); POTASSIUM 4.5 mmol/L (3.5-5.1); SODIUM 132 mmol/L (136-145)
[2018-01-12 22:02] LABS: OSMOLALITY,SERUM 282 mosm/kg (278-305)
[2018-01-13] MEDS ORDERED: ACETAMINOPHEN 325 MG TABLET (FP) ONE (02:05)
[2018-01-13] MEDS ORDERED: ACETAMINOPHEN 325 MG TABLET (FP) PO ONE (02:09)
--- NOTE | 2018-01-13 17:16 | EKG ---
Test Reason : Blood Pressure : / mmHG Vent. Rate : 097 BPM Atrial Rate : 097 BPM P-R Int : 154 ms QRS Dur : 072 ms QT Int : 362 ms P-R-T Axes : 046 015 043 degrees QTc Int : 459 ms SINUS RHYTHM WITH MARKED SINUS ARRHYTHMIA OTHERWISE NORMAL ECG WHEN COMPARED WITH ECG OF 11-JAN-2018 17:23, NO SIGNIFICANT CHANGE WAS FOUND Confirmed by MD NHUNG, MADELEINE ([id number]) on 01/13/2018 5:15:58 PM Referred By: Confirmed By:MADELEINE HOOKER MD
== END 2018-01-13 03:00 | disposition home or self-care (01) ==
LOC: JER 17:52
PROC: 3E0337Z Introduction of Electrolytic and Water Balance Substance into Peripheral Vein, Percutaneous Approach (ICD-10-PCS; principal; 2018-01-12)
DX: R07.9 Chest pain, unspecified (principal); D64.9 Anemia, unspecified; I10 Essential (primary) hypertension; J44.9 Chronic obstructive pulmonary disease, unspecified; E11.9 Type 2 diabetes mellitus without complications; E78.00 Pure hypercholesterolemia, unspecified; F41.8 Other specified anxiety disorders; F32.9 Major depressive disorder, single episode, unspecified; I69.893 Ataxia following other cerebrovascular disease; I69.810 Attention and concentration deficit following other cerebrovascular disease; Z96.653 Presence of artificial knee joint, bilateral; Z86.011 Personal history of benign neoplasm of the brain; Z87.19 Personal history of other diseases of the digestive system; Z87.442 Personal history of urinary calculi; E87.1 Hypo-osmolality and hyponatremia; E87.8 Other disorders of electrolyte and fluid balance, not elsewhere classified
CPT/HCPCS: 36415; 71045-TC-FY; 80048; 80053; 82550; 82553; 83880; 83930; 84484; 85025; 93005; 93010; 96360; 99283-25; J7030

== ENCOUNTER 2018-01-15 18:19 | Emergency (ER) | payer OTHER ==
[2018-01-15 19:12] VITALS: BMI 29.1
--- NOTE | 2018-01-15 19:40 | PDOC ---
*Physical Exam - Vital Signs Last Vital Signs Temp Pulse Resp BP Pulse Ox 97.8 F 90 20 108/45 L 97 01/15/18 18:57 01/15/18 18:57 01/15/18 18:57 01/15/18 18:57 01/15/18 18:57
--- NOTE | 2018-01-15 19:41 | PDOC ---
History of Present Illness - General Chief Complaint: Pain Stated Complaint: Chest Pain Time Seen by Provider: 01/15/18 19:40 - History of Present Illness Initial Comments: 01/15/18 20:18 Patient is a 72 year old female with past medical history of HTN, COPD, HLD, CVA , chronic chest pain, GERD and seizures, known to have frequent visits at the ED , presented with chest pain and headache that started this morning. Patient reported constant, nonradiating, left chest pain, with no alleviating or aggravating factors. She also reports headache. Denies dizziness, fever, chills , nausea, vomiting, shortness of breath, abdominal pain, diarrhea, constipation. Past History - Past Medical History Allergies/Adverse Reactions: Allergies Allergy/AdvReac Type Severity Reaction Status Date / Time aspirin Allergy Severe "NERVOUS" Verified 01/09/18 16:44 morphine Allergy Severe "ANXIETY-DE Verified 01/09/18 16:44 SPERATION" Home Medications: Ambulatory Orders Amlodipine Besylate 5 mg PO DAILY 11/06/17 Divalproex Sodium [Depakote] 500 mg PO BID 11/06/17 Famotidine 20 mg PO BID 11/06/17 Lisinopril [Prinivil] 5 mg PO DAILY #30 tablet 11/07/17 Anemia: Yes Asthma: No Cancer: No Cardiac Disorders: Yes (Chest pain) 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, baseline confusion and dizziness) COPD: Yes CHF: No DVT: No Dementia: No Diabetes: Yes GI Disorders: Yes (gerd, gastric ulcer, dysphagia) Disorders: Yes (kidney stone in the past) HTN: Yes Hypercholesterolemia: Yes Liver Disease: No Psychiatric Problems: Yes (ANXIETY DEPRESSION) Seizures: Yes (S/P craniotomy for benign tumor - on Depakote for seizure prophylaxis) Thyroid Disease: No - Surgical History Abdominal Surgery: Yes Appendectomy: No Cardiac Surgery: No Cholecystectomy: Yes Lung Surgery: No Neurologic Surgery: Yes (removal left meningioma, craniotomy) Orthopedic Surgery: Yes (bilat knee replacement) - Immunization History Td Vaccination: Yes TDAP Vaccination: No Immunization Up to Date: Yes - Suicide/Smoking/Psychosocial Hx Smoking Status: No Smoking History: Unknown if ever smoked Have you smoked in the past 12 months: No Number of Cigarettes Smoked Daily: 0 Cigars Per Day: 0 Hx Alcohol Use: No Drug/Substance Use Hx: No Substance Use Type: None Hx Substance Use Treatment: No Review of Systems - Review of Systems Constitutional: No: Chills, Fever, Malaise, Weakness HEENTM: No: Blurred Vision, Double Vision, Nose Congestion, Throat Swelling, Difficulty Swallowing Respiratory: No: Cough, Orthopnea, Shortness of Breath Cardiac (ROS): Yes: Chest Pain. No: Lightheadedness, Palpitations ABD/GI: No: Abdominal Distended, Constipated, Diarrhea, Nausea, Vomiting : No: Burning, Dysuria, Discharge Musculoskeletal: No: Back Pain, Muscle Weakness Neurological: Yes: Headache. No: Numbness, Tingling, Weakness, Dizziness *Physical Exam - Vital Signs Last Vital Signs Temp Pulse Resp BP Pulse Ox 97.8 F 90 20 108/45 L 97 01/15/18 18:57 1218 18:57 12 18:57 01/15/18 18:57 01/15/18 18:57 - Physical Exam Comments: 01/15/18 20:18 General: awake, alert, not in acute distress, walking around with her rolling walker Head:no signs of head trauma HEENT:PERRLA, EOMI, sclerae anicteric, no nasal discharge, non-erythematous oropharynx, dry mucous membranes Neck:soft, supple, trachea midline without LAD Lungs:clear to auscultation bilaterally Heart:regular rate and rhythm, normal S1/S2, no m,r,g Abdomen: soft, nontender, nondistended, NABS Extremities: +2 pulses, no cyanosis, clubbing or edema Moderate Sedation - Procedure Monitoring Vital Signs: Procedure Monitoring Vital Signs Temperature 97.8 F 01/15/18 18:57 Pulse Rate 90 01/15/18 18:57 Respiratory Rate 20 01/15/18 18:57 Blood Pressure 108/45 L 01/15/18 18:57 O2 Sat by Pulse Oximetry (%) 97 01/15/18 18:57 Medical Decision Making - Medical Decision Making 01/15/18 19:53 Patient is a 72 year old female with past medical history of HTN, COPD, HLD, CVA , chronic chest pain, GERD and seizures, known to have frequent visits at the ED , presented with chest pain and headache that started this morning. EKG - NSR Tylenol 650 mg po Will re-evaluate Dispo 12/03/18 20:18 Patient ate sandwich. Will repeat vital signs prior to dispo. 01/15/18 21:01 Patient re-evaluated. She is sleeping comfortably. *DC/Admit/Observation/Transfer Diagnosis at time of Disposition: Atypical chest pain - Discharge Dispostion Disposition: HOME Condition at time of disposition: Stable Decision to Admit order: No - Referrals - Patient Instructions Additional Instructions: You were seen today because you had chest pain and headache. Your heart test was normal and you were given Tylenol for the pain. Please follow-up with your primary care doctor within 2 days. Call 911 or go to the ED if with any worsening chest pain, shortness of breath, palpitations, weakness, numbness or any new concerns noted. Print Language: SPA - Post Discharge Activity
[2018-01-15] MEDS ORDERED: ACETAMINOPHEN 325 MG TABLET (FP) PO ONE (19:50)
--- NOTE | 2018-01-15 19:59 | PDOC ---
Attending Attestation - Resident Resident Name: Tata Sandhu - ED Attending Attestation I have performed the following: I have examined & evaluated the patient, The case was reviewed & discussed with the resident, I agree w/resident's findings & plan, Exceptions are as noted - HPI HPI: 01/15/18 19:59 72-year-old female well known to the emergency department. Presents for chest pain. She has been to the emergency department on multiple occasions for the same complaint. She was last seen here December. - Physicial Exam PE: 01/15/18 20:00 72 yo female walking with aide of walker stating she has chest pain head ncat neck supple lungs ca b/l cvs [id number] abd protuberant ,no rebound,no guarding ext no deformities skin warm and dry neuro axox3,ambulating with a walker psych appropriate - Medical Decision Making 01/15/18 20:16 cxr naps on 01/12/18 labs done at that time 01/15/18 20:30 todays ekg is nsr with no evidence of ischemia 01/15/18 21:04 imp atypical chest pain discharged home
[2018-01-15] MEDS ORDERED: ACETAMINOPHEN 325 MG TABLET (FP) ONE (20:22)
[2018-01-15 22:14] VITALS: BP 110/76; PULSE 88; TEMP 98.6
--- NOTE | 2018-01-16 17:02 | EKG ---
Test Reason : Blood Pressure : / mmHG Vent. Rate : 087 BPM Atrial Rate : 087 BPM P-R Int : 156 ms QRS Dur : 072 ms QT Int : 374 ms P-R-T Axes : 044 010 030 degrees QTc Int : 450 ms NORMAL SINUS RHYTHM NORMAL ECG Confirmed by MD SALMERON GREGORY ([id number]) on 01/16/2018 5:02:14 PM Referred By: Confirmed By:UMBERTO SALMERON MD
== END 2018-01-15 22:17 | disposition home or self-care (01) ==
LOC: JER 18:19
DX: R07.89 Other chest pain (principal); I10 Essential (primary) hypertension; J44.9 Chronic obstructive pulmonary disease, unspecified; E78.5 Hyperlipidemia, unspecified; Z86.73 Personal history of transient ischemic attack (TIA), and cerebral infarction without residual deficits; K21.9 Gastro-esophageal reflux disease without esophagitis
CPT/HCPCS: 93005; 93010; 99281-25

== ENCOUNTER 2018-01-16 17:14 | Emergency (ER) | payer OTHER ==
--- NOTE | 2018-01-16 17:35 | PDOC ---
Rapid Medical Evaluation Chief Complaint: Chest Pain Time Seen by Provider: 01/16/18 17:31 Medical Evaluation: Allergies Allergy/AdvReac Type Severity Reaction Status Date / Time aspirin Allergy Severe "NERVOUS" Verified 01/16/18 17:30 morphine Allergy Severe "ANXIETY-DE Verified 01/16/18 17:30 SPERATION" 01/16/18 17:31 I have performed a brief in-person evaluation of this patient. The patient presents with a chief complaint of:CHEST PAIN, ( daily arrival at ~ 5-6PM for c/o chestpain) Pertinent physical exam findings: pale, ( discussed daily vivists with Case Management in the ER, stated they have [facility] and are trying to extend the hours of attendance for care at home into the nighttime hours) I have ordered the following: EKG The patient will proceed to the ED for further evaluation.
[2018-01-16 17:37] VITALS: BMI 29.2
--- NOTE | 2018-01-16 19:19 | PDOC ---
Attending Attestation - Resident Resident Name: Rossy Barrera - ED Attending Attestation I have performed the following: I have examined & evaluated the patient, The case was reviewed & discussed with the resident, I agree w/resident's findings & plan, Exceptions are as noted - HPI HPI: 01/16/18 20:06 72 yo female has c/o headache, shortness of breath all day and chest pain - Physicial Exam PE: 01/16/18 20:11 alert and conversant 72 yo female has c/o shortness of breath head ncat neck no jvd,supple lungs no wheezing,no crackle cvs [id number] abd soft,nontender ext no edema,no tenderness skin warm and dry neuro axox3,ambulatory - Medical Decision Making 01/16/18 20:15 ekg nsr with no ischemia,no change from prior ekg 01/16/18 21:09 cxr napd cbc chronic anemia chemistires reviewed neg troponin imp chronic chest pain d/c home
[2018-01-16] MEDS ORDERED: ACETAMINOPHEN 500 MG TABLET (FP) PO ONE (19:31)
[2018-01-16 19:58] VITALS: BP 143/72; PULSE 91; TEMP 98.1
--- NOTE | 2018-01-16 20:17 | PDOC ---
History of Present Illness - General Chief Complaint: Chest Pain Stated Complaint: CHEST PAIN Time Seen by Provider: 01/16/18 17:31 History Source: Patient Exam Limitations: Language Barrier - History of Present Illness Initial Comments: 01/16/18 20:12 Pt is a 72yo F with significant PMH and well known to department presenting to ED with complaints of L sided chest pain, headache and shortness of breath. Pt says she has been feeling short of breath all day, not associated with exertion or rest. She feels like her breath is being caught in her throat. She denies fever, cough, changes in vision, abdominal pain, n/v/d, urinary symptoms. 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, baseline confusion and dizziness) COPD: Yes CHF: No DVT: No Dementia: No Diabetes: Yes GI Disorders: Yes (gerd, gastric ulcer, dysphagia) Disorders: Yes (kidney stone in the past) HTN: Yes Hypercholesterolemia: Yes Liver Disease: No Psychiatric Problems: Yes (ANXIETY DEPRESSION) Seizures: Yes (S/P craniotomy for benign tumor - on Depakote for seizure prophylaxis) Thyroid Disease: No - Surgical History Abdominal Surgery: Yes Appendectomy: No Cardiac Surgery: No Cholecystectomy: Yes Lung Surgery: No Neurologic Surgery: Yes (removal left meningioma, craniotomy) Orthopedic Surgery: Yes (bilat knee replacement) - Immunization History Td Vaccination: Yes TDAP Vaccination: No Immunization Up to Date: Yes - Suicide/Smoking/Psychosocial Hx Smoking Status: No Smoking History: Never smoked Have you smoked in the past 12 months: No Number of Cigarettes Smoked Daily: 0 Cigars Per Day: 0 Information on smoking cessation initiated: No Hx Alcohol Use: No Drug/Substance Use Hx: No Substance Use Type: None Hx Substance Use Treatment: No *Physical Exam - Vital Signs Last Vital Signs Temp Pulse Resp BP Pulse Ox 98.1 F 91 H 18 143/72 97 01/16/18 19:05 01/16/18 19:05 01/16/18 19:05 01/16/18 19:05 01/16/18 19:05 Moderate Sedation - Procedure Monitoring Vital Signs: Procedure Monitoring Vital Signs Temperature 98.1 F 01/16/18 19:05 Pulse Rate 91 H 01/16/18 19:05 Respiratory Rate 18 01/16/18 19:05 Blood Pressure 143/72 01/16/18 19:05 O2 Sat by Pulse Oximetry (%) 97 01/16/18 19:05 ED Treatment Course - LABORATORY CBC & Chemistry Diagram: 01/16/18 20:20 01/16/18 20:20 Medical Decision Making - Medical Decision Making 01/16/18 20:14 Pt is a 72yo F with significant PMH and well known to department presenting to ED with complaints of L sided chest pain, headache and shortness of breath. Vitals: wnl PE: clear lungs, normal breath sounds Pt is well known to department. Says chest pain and headache are unchanged from before. Pt has shortness of breath which is a new complaint. Xray ordered by RME. Low suspicion for PE. Labs drawn. *DC/Admit/Observation/Transfer Diagnosis at time of Disposition: Atypical chest pain, Shortness of breath - Discharge Dispostion Disposition: HOME Condition at time of disposition: Good Decision to Admit order: No - Referrals Referrals: Waldo Mabry MD [Primary Care Provider] - - Patient Instructions Printed Discharge Instructions: DI for Atypical Chest Pain, DI for Shortness of Breath Additional Instructions: Hoy te vieron aqu por dolor de pecho y falta de aliento. Tus pruebas son normales. Por favor karol tavo jihan con el Dr. Mabry! Regrese a la leah de emergencias si el dolor empeora, tiene dificultad para respirar, pierde el conocimiento, se , tiene hinchazn en las piernas o si aparece algn sntoma nuevo. Diana You were seen here today for chest pain and shortness of breath. Your tests are normal. Please make an appointment with Dr. Mabry! Come back to the emergency room if pain gets worse, you feel short of breath, you lose consciousness, you fall down, you have swelling in your legs or if any new concerning symptom develops. Thank you - Post Discharge Activity
[2018-01-16 20:27] LABS: BASO % 0.5 % (0-2.0); EOS % 4.7 % (0-4.5); HEMATOCRIT 27.4 % (32.4-45.2); LYMPH % 26.7 % (8-40); MCH 24.8 pg (25.7-33.7); MEAN CELL VOLUME 74.9 fl (80-96); MEAN PLT VOLUME 6.9 fl (7.5-11.1); MONO % 13.4 % (3.8-10.2); NEUT % 54.7 % (42.8-82.8); PLATELET COUNT 413 K/MM3 (134-434); RBC 3.65 M/mm3 (3.60-5.2)
[2018-01-16] MEDS ORDERED: ACETAMINOPHEN 325 MG TABLET (FP) ONE (20:39)
[2018-01-16 20:57] LABS: ALBUMIN 3.2 g/dl (3.4-5.0); ALK PHOS 193 U/L (45-117); ANION GAP 8 MMOL/L (8-16); BILIRUBIN,TOTAL 0.2 mg/dL (0.2-1); BLOOD UREA NITROGEN 18 mg/dL (7-18); CALCIUM 8.5 mg/dL (8.5-10.1); CHLORIDE 101 mmol/L (98-107); CO2 27 mmol/L (21-32); CREATININE 0.7 mg/dL (0.55-1.3); GLUCOSE,RANDOM 110 mg/dL (74-106); POTASSIUM 4.5 mmol/L (3.5-5.1); SGOT/AST 14 U/L (15-37); SGPT/ALT 22 U/L (13-61); SODIUM 136 mmol/L (136-145); TOT PROT 6.9 g/dl (6.4-8.2)
--- NOTE | 2018-01-17 13:01 | EKG ---
Test Reason : Blood Pressure : / mmHG Vent. Rate : 081 BPM Atrial Rate : 081 BPM P-R Int : 160 ms QRS Dur : 076 ms QT Int : 380 ms P-R-T Axes : 003 008 036 degrees QTc Int : 441 ms NORMAL SINUS RHYTHM NORMAL ECG WHEN COMPARED WITH ECG OF 15-JAN-2018 19:02, NO SIGNIFICANT CHANGE WAS FOUND Confirmed by ANNITA VENTURA MD ([id number]) on 01/17/2018 1:00:13 PM Referred By: Confirmed By:ANNITA VENTURA MD
== END 2018-01-16 22:24 | disposition home or self-care (01) ==
LOC: JER 17:14
DX: R07.9 Chest pain, unspecified (principal); D64.9 Anemia, unspecified; I10 Essential (primary) hypertension; E11.9 Type 2 diabetes mellitus without complications; F41.8 Other specified anxiety disorders; F32.9 Major depressive disorder, single episode, unspecified; E78.00 Pure hypercholesterolemia, unspecified; I69.810 Attention and concentration deficit following other cerebrovascular disease; I69.893 Ataxia following other cerebrovascular disease; Z87.19 Personal history of other diseases of the digestive system; Z86.011 Personal history of benign neoplasm of the brain; Z96.653 Presence of artificial knee joint, bilateral
CPT/HCPCS: 36415; 71045-TC-FY; 80053; 84484; 85025; 93005; 93010; 99285-25

== ENCOUNTER 2018-01-17 17:09 | Emergency (ER) | payer OTHER ==
[2018-01-17 17:33] VITALS: BP 144/60; PULSE 98; TEMP 99; BMI 31.2
[2018-01-17] MEDS ORDERED: ACETAMINOPHEN 500 MG TABLET (FP) PO ONE (18:30)
--- NOTE | 2018-01-17 19:02 | PDOC ---
History of Present Illness - General Chief Complaint: Chest Pain Stated Complaint: CHEST PAIN Time Seen by Provider: 01/17/18 18:10 - History of Present Illness Initial Comments: 71 year old female hx of DM, HTN, and HLD, well known to our department for atypical chest pain presentations (negative nuclear stress test performed May 2017), presenting with left sided throbbing chest pain for the past day associated with nausea but no emesis. She denies any recent bouts of diaphoresis. She denies any pain radiation to jaw or arm. When asked if the pain is pressure like the patient says it is not, and it is stabbing and throbbing in nature. She was seen in our ED for the past 3 days for the same issue. Denies any headache, fevers, chills, diarrhea, or other symptoms. She says she is doing her usual today and came to the ED when her aid left. She syas she would just like some food. 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, baseline confusion and dizziness) COPD: Yes CHF: No DVT: No Dementia: No Diabetes: Yes GI Disorders: Yes (gerd, gastric ulcer, dysphagia) Disorders: Yes (kidney stone in the past) HTN: Yes Hypercholesterolemia: Yes Liver Disease: No Psychiatric Problems: Yes (ANXIETY DEPRESSION) Seizures: Yes (S/P craniotomy for benign tumor - on Depakote for seizure prophylaxis) Thyroid Disease: No - Surgical History Abdominal Surgery: Yes Appendectomy: No Cardiac Surgery: No Cholecystectomy: Yes Lung Surgery: No Neurologic Surgery: Yes (removal left meningioma, craniotomy) Orthopedic Surgery: Yes (bilat knee replacement) - Immunization History Td Vaccination: Yes TDAP Vaccination: No Immunization Up to Date: Yes - Suicide/Smoking/Psychosocial Hx Smoking Status: No Smoking History: Never smoked Have you smoked in the past 12 months: No Number of Cigarettes Smoked Daily: 0 Cigars Per Day: 0 Hx Alcohol Use: No Drug/Substance Use Hx: No Substance Use Type: None Hx Substance Use Treatment: No Review of Systems - Review of Systems Comments:: CONSTITUTIONAL: Absent: fever, no chills, no fatigue EYES: Absent: visual changes ENT: Absent: ear pain, no sore throat CARDIOVASCULAR: Present: Chest pain Absent: no palpitations RESPIRATORY: Absent: cough, no SOB GI: Absent: abdominal pain, no nausea, no vomiting, no constipation, no diarrhea GENITOURINARY: Absent: dysuria, no frequency, no hematuria MUSKULOSKELETAL: Absent: back pain, no arthralgia, no myalgia SKIN: Absent: rash NEURO: Absent: headache *Physical Exam - Vital Signs Last Vital Signs Temp Pulse Resp BP Pulse Ox 99 F 98 H 18 144/60 97 01/17/18 17:24 01/17/18 17:24 01/17/18 17:24 01/17/18 17:24 01/17/18 17:24 - Physical Exam Comments: GENERAL: Well-appearing, well-nourished. No apparent distress. HEENT: Normocephalic, atraumatic. PERRL, EOM intact. CARDIOVASCULAR: Normal S1, S2. Regular rate and rhythm. PULMONARY: Clear to auscultation bilaterally. ABDOMEN: Soft, non-distended, non-tender. EXTREMITIES: Normal ROM in all four extremities. No gross deformities. SKIN: Warm, dry. No rash NEUROLOGICAL: No focal neurological deficits. Moderate Sedation - Procedure Monitoring Vital Signs: Procedure Monitoring Vital Signs Temperature 99 F 01/17/18 17:24 Pulse Rate 98 H 01/17/18 17:24 Respiratory Rate 18 01/17/18 17:24 Blood Pressure 144/60 01/17/18 17:24 O2 Sat by Pulse Oximetry (%) 97 01/17/18 17:24 Medical Decision Making - Medical Decision Making 71 year old female hx of DM, HTN, and HLD, well known to our department for atypical chest pain presentations (negative nuclear stress test performed May 2017), presenting with left sided throbbing chest pain for the past day associated with nausea but no emesis. DD includes but not limited to: ACS, msk pain, loneliness Plan: Ekg, tylenol, sandwich, discharge EKG normal sinus *DC/Admit/Observation/Transfer Diagnosis at time of Disposition: Atypical chest pain - Discharge Dispostion Disposition: HOME Condition at time of disposition: Improved Decision to Admit order: No - Referrals Referrals: Waldo Mabry MD [Primary Care Provider] - - Patient Instructions Printed Discharge Instructions: DI for Atypical Chest Pain Additional Instructions: You came into ER with chest pain. It resolved with tylenol and a sandwich. Please make sure to follow up with PCP. Come back for any new or worsening symptoms Print Language: BOT[place]WANAN - Post Discharge Activity
[2018-01-17] MEDS ORDERED: ACETAMINOPHEN 325 MG TABLET (FP) ONE (19:06)
[2018-01-17] MEDS ORDERED: ACETAMINOPHEN 325 MG TABLET (FP) PO ONE (19:07)
--- NOTE | 2018-01-17 19:41 | PDOC ---
Attending Attestation - HPI HPI: The patient is a 72 year old female, with a significant PMH of CVA (2009), DM, HTN, HLD, and GERD/PUD, who presents to the emergency department today complaining of left-sided chest pain for one day. Patient notes the pain is throbbing and stabbing in nature and is localized to the left chest. Patient reports associated nausea without vomit. Patient has been seen in the ED numerous times for similar complaints. The patient denies shortness of breath, headache and dizziness. Denies fever, chills, vomit, diarrhea and constipation. Denies dysuria, frequency, urgency and hematuria. Allergies: Aspirin, Morphine PCP: Dr. Mabry 01/17/18 19:50 <Candy Olmedo - Last Filed: 01/17/18 19:52> - Resident Resident Name: Jose Craig - ED Attending Attestation I have performed the following: I have examined & evaluated the patient, The case was reviewed & discussed with the resident, I agree w/resident's findings & plan, Exceptions are as noted - Physicial Exam PE: 01/17/18 19:54 Well appearing, ambulating around ED with walker, AOx3 NCAT NFD Agree with exam documented by resident - Medical Decision Making 01/17/18 19:55 Well, appearing, denies any acute complaints. States that there is nothing new going on in regards to her chronic health issues. Asking for food Pt is stable for discharge <Easton Lyons - Last Filed: 01/17/18 20:49>
--- NOTE | 2018-01-18 10:28 | EKG ---
Test Reason : Blood Pressure : / mmHG Vent. Rate : 089 BPM Atrial Rate : 089 BPM P-R Int : 162 ms QRS Dur : 084 ms QT Int : 370 ms P-R-T Axes : 051 007 039 degrees QTc Int : 450 ms NORMAL SINUS RHYTHM NORMAL ECG WHEN COMPARED WITH ECG OF 16-JAN-2018 17:35, NO SIGNIFICANT CHANGE WAS FOUND Confirmed by TERENCE GARCIA MD ([id number]) on 01/18/2018 10:28:38 AM Referred By: Confirmed By:TERENCE GARCIA MD
== END 2018-01-17 19:59 | disposition home or self-care (01) ==
LOC: JER 17:09
DX: R07.89 Other chest pain (principal); E11.9 Type 2 diabetes mellitus without complications; I10 Essential (primary) hypertension; E78.5 Hyperlipidemia, unspecified
CPT/HCPCS: 93005; 93010; 99281-25

== ENCOUNTER 2018-01-19 17:25 | Emergency (ER) | payer OTHER ==
--- NOTE | 2018-01-19 17:46 | PDOC ---
Rapid Medical Evaluation Chief Complaint: Chest Pain Time Seen by Provider: 01/19/18 17:44 Medical Evaluation: Allergies Allergy/AdvReac Type Severity Reaction Status Date / Time aspirin Allergy Severe "NERVOUS" Verified 01/19/18 17:41 morphine Allergy Severe "ANXIETY-DE Verified 01/19/18 17:41 SPERATION" 01/19/18 17:45 I have performed a brief in-person evaluation of this patient. The patient presents with a chief complaint of: chest pain Pertinent physical exam findings: stable I have ordered the following:ekg The patient will proceed to the ED for further evaluation. Discharge Disposition - Diagnosis Chest pain Qualifiers: Chest pain type: other chest pain Qualified Code(s): R07.89 - Other chest pain ; R07.8 - Other chest pain - Referrals - Patient Instructions - Post Discharge Activity
[2018-01-19 17:52] VITALS: BP 131/56; PULSE 80; TEMP 98; BMI 25.8
--- NOTE | 2018-01-19 18:59 | PDOC ---
History of Present Illness - General Chief Complaint: Chest Pain Stated Complaint: CHEST PAIN Time Seen by Provider: 01/19/18 17:44 - History of Present Illness Initial Comments: 71 year old female hx of DM, HTN, and HLD, well known to our department for atypical chest pain presentations (negative nuclear stress test performed May 2017), presenting with left sided achy chest pressure, non-radiating, non- pleuritic and not co-presenting with nausea, vomiting, SOB or other symptoms. Patient hasn't tried Tylenol at home. 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, baseline confusion and dizziness) COPD: Yes CHF: No DVT: No Dementia: No Diabetes: Yes GI Disorders: Yes (gerd, gastric ulcer, dysphagia) Disorders: Yes (kidney stone in the past) HTN: Yes Hypercholesterolemia: Yes Liver Disease: No Psychiatric Problems: Yes (ANXIETY DEPRESSION) Seizures: Yes (S/P craniotomy for benign tumor - on Depakote for seizure prophylaxis) Thyroid Disease: No - Surgical History Abdominal Surgery: Yes Appendectomy: No Cardiac Surgery: No Cholecystectomy: Yes Lung Surgery: No Neurologic Surgery: Yes (removal left meningioma, craniotomy) Orthopedic Surgery: Yes (bilat knee replacement) - Immunization History Td Vaccination: Yes TDAP Vaccination: No Immunization Up to Date: Yes - Suicide/Smoking/Psychosocial Hx Smoking Status: No Smoking History: Never smoked Have you smoked in the past 12 months: No Number of Cigarettes Smoked Daily: 0 Cigars Per Day: 0 Hx Alcohol Use: No Drug/Substance Use Hx: No Substance Use Type: None Hx Substance Use Treatment: No Review of Systems - Review of Systems Constitutional: No: Chills, Diaphoresis, Loss of Appetite HEENTM: No: Blurred Vision, Tearing Respiratory: No: Cough, Shortness of Breath Cardiac (ROS): Yes: Chest Pain. No: Irregular Heart Rate, Chest Tightness ABD/GI: No: Diarrhea, Nausea, Vomiting : No: Dysuria, Discharge Musculoskeletal: No: Back Pain, Joint Pain Integumentary: No: Lesions, Lumps Neurological: No: Numbness, Paresthesia Psychiatric: Yes: Anxiety. No: Depression Hematologic/Lymphatic: No: Blood Clots, Easy Bleeding *Physical Exam - Vital Signs Last Vital Signs Temp Pulse Resp BP Pulse Ox 98.0 F 80 18 131/56 L 96 01/19/18 17:48 01/19/18 17:48 01/19/18 17:48 01/19/18 17:48 01/19/18 17:48 - Physical Exam General Appearance: Yes: Nourished, Appropriately Dressed. No: Apparent Distress HEENT: positive: EOMI, Normal ENT Inspection, Normal Voice Neck: positive: Tender, Trachea midline, Normal Thyroid, Supple Respiratory/Chest: positive: Chest Tender, Lungs Clear, Normal Breath Sounds. negative: Respiratory Distress, Accessory Muscle Use Cardiovascular: positive: Regular Rhythm, Regular Rate Gastrointestinal/Abdominal: positive: Normal Bowel Sounds, Flat, Soft. negative : Tender Lymphatic: negative: Adenopathy, Tenderness Musculoskeletal: positive: Normal Inspection. negative: Decreased Range of Motion Extremity: positive: Normal Capillary Refill, Normal Inspection, Normal Range of Motion. negative: Tender Integumentary: positive: Normal Color, Dry, Warm Neurologic: positive: Fully Oriented, Alert, Normal Mood/Affect, Normal Response , Motor Strength 5/5 Moderate Sedation - Procedure Monitoring Vital Signs: Procedure Monitoring Vital Signs Temperature 98.0 F 01/19/18 17:48 Pulse Rate 80 01/19/18 17:48 Respiratory Rate 18 01/19/18 17:48 Blood Pressure 131/56 L 01/19/18 17:48 O2 Sat by Pulse Oximetry (%) 96 01/19/18 17:48 Medical Decision Making - Medical Decision Making 72 year old with multiple comorbidities presenting with left sided chest pain. EKG demonstrating NSR, rate 83, UT 156, QRS 78, QTc 434, normal axis, no ST or T wave changes and similar to EKG from 3 days prior. Blood work from 3 days prior without any troponin elevation or other lab abnormality. Patient's pain improved with tylenol and a hot pack. She would now like to go home. 01/19/18 20:11 *DC/Admit/Observation/Transfer Diagnosis at time of Disposition: Chest pain Qualifiers: Chest pain type: other chest pain Qualified Code(s): R07.89 - Other chest pain - Discharge Dispostion Disposition: HOME Condition at time of disposition: Improved Decision to Admit order: No - Referrals Referrals: Waldo Mabry MD [Primary Care Provider] - - Patient Instructions Printed Discharge Instructions: DI for Atypical Chest Pain Additional Instructions: Por favor, tome Tylenol para el dolor en el pecho. Por favor mantente hidratado. Por favor karol un seguimiento con perla mdico de atencin primaria la prxima semana. Regrese a la leah de emergencias si tiene sntomas nuevos o que empeoran. - Post Discharge Activity
--- NOTE | 2018-01-19 19:30 | PDOC ---
Attending Attestation - Resident Resident Name: Deja Stahl - ED Attending Attestation I have performed the following: I have examined & evaluated the patient, The case was reviewed & discussed with the resident, I agree w/resident's findings & plan - HPI HPI: 01/19/18 20:41 Pt eloped before I could see her. - Physicial Exam PE: 01/19/18 20:41 Pt eloped before I could see her - Medical Decision Making 01/19/18 20:41 Pt eloped before I could see her.
[2018-01-19] MEDS ORDERED: ACETAMINOPHEN 500 MG TABLET (FP) PO ONE (19:53)
[2018-01-19] MEDS ORDERED: ACETAMINOPHEN 325 MG TABLET (FP) ONE (20:12)
--- NOTE | 2018-01-20 21:23 | EKG ---
Test Reason : Blood Pressure : / mmHG Vent. Rate : 083 BPM Atrial Rate : 083 BPM P-R Int : 156 ms QRS Dur : 078 ms QT Int : 370 ms P-R-T Axes : 042 014 039 degrees QTc Int : 434 ms NORMAL SINUS RHYTHM NORMAL ECG WHEN COMPARED WITH ECG OF 17-JAN-2018 17:19, NO SIGNIFICANT CHANGE WAS FOUND Confirmed by ANNITA VENTURA MD ([id number]) on 01/20/2018 9:22:50 PM Referred By: Confirmed By:ANNITA VENTURA MD
== END 2018-01-19 21:02 | disposition home or self-care (01) ==
LOC: JER 17:25
DX: R07.89 Other chest pain (principal); I10 Essential (primary) hypertension; E11.9 Type 2 diabetes mellitus without complications; Z79.84 Long term (current) use of oral hypoglycemic drugs; E78.00 Pure hypercholesterolemia, unspecified; F41.8 Other specified anxiety disorders; D64.9 Anemia, unspecified; Z86.011 Personal history of benign neoplasm of the brain; Z96.653 Presence of artificial knee joint, bilateral; I69.893 Ataxia following other cerebrovascular disease; I69.810 Attention and concentration deficit following other cerebrovascular disease; Z87.19 Personal history of other diseases of the digestive system; Z87.442 Personal history of urinary calculi
CPT/HCPCS: 93005; 93010; 99283-25

== ENCOUNTER 2018-01-23 17:06 | Emergency (ER) | payer OTHER ==
[2018-01-23 17:26] VITALS: BMI 30.9
--- NOTE | 2018-01-23 17:26 | PDOC ---
History of Present Illness - General Chief Complaint: Chest Pain Stated Complaint: CHEST PAIN Time Seen by Provider: 01/23/18 17:25 - History of Present Illness Initial Comments: 01/23/18 17:25 Ms. Sumner is a 72 yo female w/ pmh of HTN, HLD, COPD, CVA, chronic L breast pain, GERD, and seizures who presents for evaluation of left sided breast pain consistent with her normal pain symptoms. Patient reports it started this evening and that she took 2 regular strength tylenol at around 4pm. Nothing reportedly makes her pain better however pressing on her left breast makes the pain worse. Patient has no other complaints at this time. The patient denies shortness of breath, headache and dizziness. Denies fever, chills, nausea, vomit, diarrhea and constipation. Denies dysuria, frequency, urgency and hematuria. Past History - Past Medical History Allergies/Adverse Reactions: Allergies Allergy/AdvReac Type Severity Reaction Status Date / Time aspirin Allergy Severe "NERVOUS" Verified 01/19/18 17:41 morphine Allergy Severe "ANXIETY-DE Verified 01/19/18 17:41 SPERATION" Home Medications: Ambulatory Orders Amlodipine Besylate 5 mg PO DAILY 11/06/17 Divalproex Sodium [Depakote] 500 mg PO BID 11/06/17 Famotidine 20 mg PO BID 11/06/17 Lisinopril [Prinivil] 5 mg PO DAILY #30 tablet 11/07/17 Anemia: Yes Asthma: No Cancer: No Cardiac Disorders: Yes (Chest pain) 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, baseline confusion and dizziness) COPD: Yes CHF: No DVT: No Dementia: No Diabetes: Yes GI Disorders: Yes (gerd, gastric ulcer, dysphagia) Disorders: Yes (kidney stone in the past) HTN: Yes Hypercholesterolemia: Yes Liver Disease: No Psychiatric Problems: Yes (ANXIETY DEPRESSION) Seizures: Yes (S/P craniotomy for benign tumor - on Depakote for seizure prophylaxis) Thyroid Disease: No - Surgical History Abdominal Surgery: Yes Appendectomy: No Cardiac Surgery: No Cholecystectomy: Yes Lung Surgery: No Neurologic Surgery: Yes (removal left meningioma, craniotomy) Orthopedic Surgery: Yes (bilat knee replacement) - Immunization History Td Vaccination: Yes TDAP Vaccination: No Immunization Up to Date: Yes - Suicide/Smoking/Psychosocial Hx Smoking Status: No Smoking History: Never smoked Have you smoked in the past 12 months: No Number of Cigarettes Smoked Daily: 0 Cigars Per Day: 0 Hx Alcohol Use: No Drug/Substance Use Hx: No Substance Use Type: None Hx Substance Use Treatment: No Review of Systems - Review of Systems Comments:: 01/23/18 17:26 GENERAL/CONSTITUTIONAL: No fever or chills. No weakness. HEAD, EYES, EARS, NOSE AND THROAT: No change in vision. No ear pain or discharge. No sore throat. CARDIOVASCULAR: +L breast pain as of this evening as described. No shortness of breath RESPIRATORY: No cough, wheezing, or hemoptysis. GASTROINTESTINAL: No nausea, vomiting, diarrhea or constipation. GENITOURINARY: No dysuria, frequency, or change in urination. MUSCULOSKELETAL: No joint or muscle swelling or pain. No neck or back pain. SKIN: No rash NEUROLOGIC: No headache, vertigo, loss of consciousness, or change in strength/ sensation. ENDOCRINE: No increased thirst. No abnormal weight change HEMATOLOGIC/LYMPHATIC: No anemia, easy bleeding, or history of blood clots. ALLERGIC/IMMUNOLOGIC: No hives or skin allergy. *Physical Exam - Physical Exam Comments: 01/23/18 17:26 GENERAL: Awake, alert, and fully oriented, in no acute distress HEAD: No signs of trauma, normocephalic, atraumatic EYES: PERRLA, EOMI, sclera anicteric, conjunctiva clear ENT: Auricles normal inspection, hearing grossly normal, nares patent, oropharynx clear without exudates. Moist mucosa NECK: Normal ROM, supple, no lymphadenopathy, JVD, or masses LUNGS: +Point tenderness to L breast. No distress, speaks full sentences, clear to auscultation bilaterally HEART: Regular rate and rhythm, normal S1 and S2, no murmurs, rubs or gallops, peripheral pulses normal and equal bilaterally. ABDOMEN: Soft, nontender, normoactive bowel sounds. No guarding, no rebound. No masses EXTREMITIES: Normal inspection, Normal range of motion, no edema. No clubbing or cyanosis. NEUROLOGICAL: Cranial nerves II through XII grossly intact. Normal speech, normal gait, no focal sensorimotor deficits SKIN: Warm, Dry, normal turgor, no rashes or lesions noted. Medical Decision Making - Medical Decision Making 01/23/18 17:47 Ms. Sumner is a 72 yo female w/ pmh as described who presents for evaluation of symptoms c/w chronic breast pain. Patient EKG regular rate, regular rhythm, normal access, normal intervals, no ST elevations or depressions. Normal EKG. Patient pain treated with oral motrin. 01/23/18 19:57 Patient reporting relief from symptoms. Patient noted to tolerate PO and resting comfortably. No concern for acute process at this time. Discharging to home. *DC/Admit/Observation/Transfer Diagnosis at time of Disposition: Atypical chest pain - Discharge Dispostion Disposition: HOME Condition at time of disposition: Stable - Referrals Referrals: Waldo Mabry MD [Primary Care Provider] - - Patient Instructions Printed Discharge Instructions: DI for Atypical Chest Pain Additional Instructions: You were evaluated today in the ER for your chest pain. No concerning findings were found at this time and your pain was controlled with oral motrin. Please follow-up with primary care provider for further evaluation. Return to ER if any fevers, chills, shortness of breath, pain, or other concerning symptoms. - Post Discharge Activity
[2018-01-23] MEDS ORDERED: IBUPROFEN 400 MG TABLET (FP) PO ONE ×2 (17:47→17:56)
--- NOTE | 2018-01-23 18:20 | PDOC ---
Attending Attestation - HPI HPI: 01/23/18 18:20 The patient is a 72 year old female with a past medical history of HTN, HLD, COPD, CVA, chronic L breast pain, GERD, and seizures, well known to this ED, who presents for evaluation of left sided breast pain consistent with her usual pain complaints. The patient reportedly took 2 regular strength tylenol at around 4pm without relief. She denies other complaints. The patient denies shortness of breath, headache and dizziness. Denies fever, chills, nausea, vomit, diarrhea and constipation. Denies dysuria, frequency, urgency and hematuria. - Physicial Exam PE: 01/23/18 18:20 GENERAL: Well developed, well nourished. Awake and alert. No acute distress. HEENT: Normocephalic, atraumatic. PERRLA, EOMI. No conjunctival pallor. Sclera are non- icteric. Moist mucous membranes. Oropharynx is clear. NECK: Supple. Full ROM. No JVD. Carotid pulses 2+ and symmetric, without bruits. No thyromegaly. No lymphadenopathy. CARDIOVASCULAR: Regular rate and rhythm. No murmurs, rubs, or gallops. Distal pulses are 2+ and symmetric. PULMONARY: No evidence of respiratory distress. Lungs clear to auscultation bilaterally. No wheezing, rales or rhonchi. ABDOMINAL: Soft. Non-tender. Non-distended. No rebound or guarding. No organomegaly. Normoactive bowel sounds. MUSCULOSKELETAL Normal range of motion at all joints. No bony deformities or tenderness. No CVA tenderness. EXTREMITIES: No cyanosis. No clubbing. No edema. No calf tenderness. SKIN: Warm and dry. Normal capillary refill. No rashes. No jaundice. NEUROLOGICAL: Alert, awake, appropriate. Cranial nerves 2-12 intact. Normoreflexic in the upper and lower extremities. Normal speech. Toes are down-going bilaterally. Gait is normal without ataxia. PSYCHIATRIC: Cooperative. Good eye contact. Appropriate mood and affect. - Medical Decision Making 01/23/18 18:20 Documentation prepared by Francine Ross, acting as medical office receptionist assistant for Florinda Gallagher MD <Francine Ross - Last Filed: 01/23/18 18:20> - Resident Resident Name: Abdoul Burgos - ED Attending Attestation I have performed the following: I have examined & evaluated the patient, The case was reviewed & discussed with the resident, I agree w/resident's findings & plan, Exceptions are as noted - Medical Decision Making 01/23/18 19:57 72 yo female with chronic left sided chest pain has stable vital signs., No tachycardia ekg is nsr with no ekg changes since her last ekg lungs cta b/l cvs [id number] neuro [id number],ambulates w walker imp chronic chest pain <Florinda Gallagher - Last Filed: 01/23/18 20:00>
[2018-01-23 19:39] VITALS: BP 121/72; PULSE 84; TEMP 98.2
--- NOTE | 2018-01-26 10:21 | EKG ---
Test Reason : Blood Pressure : / mmHG Vent. Rate : 086 BPM Atrial Rate : 086 BPM P-R Int : 154 ms QRS Dur : 074 ms QT Int : 368 ms P-R-T Axes : 040 008 039 degrees QTc Int : 440 ms NORMAL SINUS RHYTHM NORMAL ECG WHEN COMPARED WITH ECG OF 19-JAN-2018 17:46, NO SIGNIFICANT CHANGE WAS FOUND Confirmed by ANNITA VENTURA MD ([id number]) on 01/26/2018 10:21:05 AM Referred By: Confirmed By:ANNITA VENTURA MD
== END 2018-01-23 21:16 | disposition home or self-care (01) ==
LOC: JER 17:06
DX: R07.89 Other chest pain (principal); F41.8 Other specified anxiety disorders; J44.9 Chronic obstructive pulmonary disease, unspecified; E11.9 Type 2 diabetes mellitus without complications; I10 Essential (primary) hypertension; E78.00 Pure hypercholesterolemia, unspecified
CPT/HCPCS: 93005; 93010; 99283-25

== ENCOUNTER 2018-01-24 19:04 | Emergency (ER) | payer OTHER ==
--- NOTE | 2018-01-24 19:23 | PDOC ---
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 Per the patient, she states the pain began in her left chest, sudden onset, constant, without radiation, 6/10, sharp, that worsens with touched and arm movement with no relieving factors. Endorses associative headaches and nausea. Denies the following: fever, chills, visual changes, vomiting, SOB, abdominal pain, dysuria , hematuria, diarrhea, hematochezia, melena, and leg pain/swelling. Past History - Past Medical History Allergies/Adverse Reactions: Allergies Allergy/AdvReac Type Severity Reaction Status Date / Time aspirin Allergy Severe "NERVOUS" Verified 01/19/18 17:41 morphine Allergy Severe "ANXIETY-DE Verified 01/19/18 17:41 SPERATION" Home Medications: Ambulatory Orders Amlodipine Besylate 5 mg PO DAILY 11/06/17 Divalproex Sodium [Depakote] 500 mg PO BID 11/06/17 Famotidine 20 mg PO BID 11/06/17 Lisinopril [Prinivil] 5 mg PO DAILY #30 tablet 11/07/17 Anemia: Yes Asthma: No Cancer: No Cardiac Disorders: Yes (Chest pain) 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, baseline confusion and dizziness) COPD: Yes CHF: No DVT: No Dementia: No Diabetes: Yes GI Disorders: Yes (gerd, gastric ulcer, dysphagia) Disorders: Yes (kidney stone in the past) HTN: Yes Hypercholesterolemia: Yes Liver Disease: No Psychiatric Problems: Yes (ANXIETY DEPRESSION) Seizures: Yes (S/P craniotomy for benign tumor - on Depakote for seizure prophylaxis) Thyroid Disease: No - Surgical History Abdominal Surgery: Yes Appendectomy: No Cardiac Surgery: No Cholecystectomy: Yes Lung Surgery: No Neurologic Surgery: Yes (removal left meningioma, craniotomy) Orthopedic Surgery: Yes (bilat knee replacement) - Immunization History Td Vaccination: Yes TDAP Vaccination: No Immunization Up to Date: Yes - Suicide/Smoking/Psychosocial Hx Smoking Status: No Smoking History: Never smoked Have you smoked in the past 12 months: No Number of Cigarettes Smoked Daily: 0 Cigars Per Day: 0 Hx Alcohol Use: No Drug/Substance Use Hx: No Substance Use Type: None Hx Substance Use Treatment: No Review of Systems - Review of Systems Able to Perform ROS?: Yes Is the patient limited Chinese proficient: No Constitutional: No: Chills, Diaphoresis, Weakness, Weight Stable HEENTM: No: Eye Pain, Recent change in vision, Ear Pain, Nose Pain, Throat Pain , Mouth Pain Respiratory: No: Cough, Shortness of Breath, SOB with Exertion, Hemoptysis Cardiac (ROS): Yes: Chest Pain. No: Lightheadedness, Palpitations, Syncope, Chest Tightness ABD/GI: Yes: Nausea. No: Constipated, Diarrhea, Poor Appetite, Poor Fluid Intake, Rectal Bleeding, Vomiting, Indigestion, Abdominal cramping, Tarry Stools : No: Burning, Dysuria, Hematuria, Incontinence, Urgency Musculoskeletal: No: Back Pain, Joint Pain, Neck Pain Integumentary: No: Bruising, Erythema, Flushing, Rash Neurological: Yes: Headache. No: Numbness, Tremors, Weakness, Unsteady Gait, Ataxia, Dizziness Psychiatric: No: Stressors Endocrine: No: Unexplained Weight Gain Hematologic/Lymphatic: No: Anemia, Blood Clots *Physical Exam - Physical Exam General Appearance: Yes: Nourished, Appropriately Dressed. No: Apparent Distress, Intoxicated HEENT: positive: EOMI, KARL, Normal ENT Inspection, Normal Voice, Symmetrical, TMs Normal, Pharynx Normal, Hearing Grossly Normal. negative: Pale Conjunctivae , Scleral Icterus (R), Scleral Icterus (L), Muffled/Hoarse voice, Pharyngeal Erythema, Tonsillar Erythema, Nasal Congestion, Sinus Tenderness, Excessive drooling Neck: positive: Trachea midline. negative: Tender, Lymphadenopathy (R), Lymphadenopathy (L), Tender lateral, Tender midline Respiratory/Chest: positive: Lungs Clear, Normal Breath Sounds. negative: Chest Tender, Respiratory Distress, Accessory Muscle Use, Crackles, Rales, Rhonchi, Stridor, Wheezing, Hyperresonant Cardiovascular: positive: Regular Rhythm, Regular Rate, S1, S2. negative: Systolic Murmur Gastrointestinal/Abdominal: positive: Normal Bowel Sounds. negative: Tender Lymphatic: negative: Adenopathy Musculoskeletal: positive: Normal Inspection. negative: CVA Tenderness, Vertebral Tenderness Extremity: positive: Normal Capillary Refill, Normal Inspection, Normal Range of Motion. negative: Tender Integumentary: positive: Normal Color, Dry, Warm Neurologic: positive: jet operator II-XII NML intact, Fully Oriented, Alert, Normal Mood/ Affect, Normal Response, Motor Strength 5/5. negative: EOM Palsy, Sensory Deficit Heart Score/ECG Review - ECG Intrepretation Comment:: 01/24/18 21:56 ventricular rate 82 bpm, MS 142 ms, QRS duration 76 ms, QTc is 446 ms. Normal sinus rhythm without ST elevations and depressions. ED Treatment Course - LABORATORY CBC & Chemistry Diagram: 01/24/18 19:40 01/24/18 19:40 Medical Decision Making - Medical Decision Making 01/24/18 21:57 72 yo F with a hx of HLD, HTN, COPD, CVA with residual altered balance, DM, GERD , and seizures 2/2 craniotomy for benign meningioma who is well known to the department presents with chest pain that began last night. Initial vitals Initial Vital Signs Temp Pulse Resp BP Pulse Ox 97.7 F 88 19 129/71 97 01/24/18 19:55 01/24/18 19:55 01/24/18 19:55 01/24/18 19:55 01/24/18 19:55 Work up: ddx: acs rule out. unlikely to be PNA given that she has no cough, SOB, and vitals were within normal limits. will order EKG, cbc, cmp, and trops and treat with 1 gram of tylenol. Laboratory Tests 01/24/18 01/24/18 19:40 19:40 WBC 5.6 RBC 3.79 Hgb 9.2 L Hct 28.4 L MCV 75.0 L MCH 24.3 L MCHC 32.4 RDW 17.8 H Plt Count 358 MPV 7.2 L Absolute Neuts (auto) 3.0 Neutrophils % 53.7 Lymphocytes % 25.7 Monocytes % 15.1 H Eosinophils % 4.9 H Basophils % 0.6 Nucleated RBC % 0 Sodium 133 L Potassium 4.4 Chloride 99 Carbon Dioxide 25 Anion Gap 9 BUN 17 Creatinine 0.6 Creat Clearance w eGFR > 60 Random Glucose 96 Calcium 8.3 L Total Bilirubin 0.2 AST 15 ALT 22 Alkaline Phosphatase 177 H Creatine Kinase 60 Troponin I 0.02 Total Protein 6.8 Albumin 3.2 L trops were negative. no infection. pain significantly improved with tylenol. wishes to be discharged. I discussed the physical exam findings, ancillary test results, and final diagnoses with the patient. I answered all of the patients questions to their satisfaction. The patient was satisfied with the care received and felt comfortable with the discussed discharge and treatment plan and accepted it. They agreed to follow up with their primary medical physical physician within 24 -72 hours after discharge for follow up care and management. Dispo: Discharge 01/24/18 23:40 *DC/Admit/Observation/Transfer Diagnosis at time of Disposition: Atypical chest pain - Discharge Dispostion Disposition: HOME Condition at time of disposition: Improved Decision to Admit order: No - Referrals Referrals: Waldo Mabry MD [Primary Care Provider] - - Patient Instructions Printed Discharge Instructions: DI for Atypical Chest Pain Additional Instructions: you were seen in the emergency department for the evaluation of chest pain. your EKG and labs were within normal limits. We gave you tylenol and you improved. Please follow up with your primary medical doctor within 72 hours after discharge after discharge. Please return to the emergency department if you have worsening symptoms or new concerning symptoms such as fever/chills, nausea/vomiting, and new quality pain. - Post Discharge Activity
[2018-01-24] MEDS ORDERED: ACETAMINOPHEN 500 MG TABLET (FP) PO ONE (19:24)
[2018-01-24] MEDS ORDERED: ACETAMINOPHEN 325 MG TABLET (FP) PO ONE (19:31)
[2018-01-24] MEDS ORDERED: ACETAMINOPHEN 325 MG TABLET (FP) ONE (19:32)
[2018-01-24 19:52] LABS: BASO % 0.6 % (0-2.0); EOS % 4.9 % (0-4.5); HEMATOCRIT 28.4 % (32.4-45.2); HEMOGLOBIN 9.2 GM/dL (10.7-15.3); LYMPH % 25.7 % (8-40); MCH 24.3 pg (25.7-33.7); MCHC 32.4 g/dl (32.0-36.0); MEAN PLT VOLUME 7.2 fl (7.5-11.1); MONO % 15.1 % (3.8-10.2); NEUT % 53.7 % (42.8-82.8); PLATELET COUNT 358 K/MM3 (134-434); RBC 3.79 M/mm3 (3.60-5.2); RDW 17.8 % (11.6-15.6); WHITE BLOOD COUNT 5.6 K/mm3 (4.0-10.0)
[2018-01-24 20:17] LABS: ALBUMIN 3.2 g/dl (3.4-5.0); ALK PHOS 177 U/L (45-117); ANION GAP 9 MMOL/L (8-16); BILIRUBIN,TOTAL 0.2 mg/dL (0.2-1); BLOOD UREA NITROGEN 17 mg/dL (7-18); CALCIUM 8.3 mg/dL (8.5-10.1); CHLORIDE 99 mmol/L (98-107); CO2 25 mmol/L (21-32); CREATININE 0.6 mg/dL (0.55-1.3); GLUCOSE,RANDOM 96 mg/dL (74-106); POTASSIUM 4.4 mmol/L (3.5-5.1); SGOT/AST 15 U/L (15-37); SGPT/ALT 22 U/L (13-61); SODIUM 133 mmol/L (136-145); TOT PROT 6.8 g/dl (6.4-8.2)
--- NOTE | 2018-01-24 20:25 | PDOC ---
Attending Attestation - Resident Resident Name: Damian Luevano - ED Attending Attestation I have performed the following: I have examined & evaluated the patient, The case was reviewed & discussed with the resident, I agree w/resident's findings & plan, Exceptions are as noted - HPI HPI: 01/24/18 20:25 71 F with h/o HLD, DM, HTN, COPD, CVA (residual altered balance, baseline confusion and dizziness), chronic chest pain, GERD, seizures, presenting to ED with chest pain. Pt states this is the same as her previous episodes. Denies SOB. Denies leg swelling. Pt also complains of her usual headache. No thunderclap, not worst headache of life. No F/C. No neck pain. No N/V. - Physicial Exam PE: 01/24/18 20:26 "GENERAL: Awake, alert, and fully oriented, in no acute distress. HEAD: No signs of trauma EYES: PERRLA, EOMI, sclera anicteric, conjunctiva clear ENT: Auricles normal inspection, hearing grossly normal, nares patent, oropharynx clear without exudates. Moist mucosa NECK: Nontender, no stepoffs, Normal ROM, supple, no lymphadenopathy, JVD, or masses LUNGS: Breath sounds equal, clear to auscultation bilaterally. No wheezes, and no crackles HEART: Regular rate and rhythm, normal S1 and S2, no murmurs, rubs or gallops ABDOMEN: Soft, nontender, normoactive bowel sounds. No guarding, no rebound. No masses EXTREMITIES: Normal range of motion, no edema. No clubbing or cyanosis. No cords, erythema, or tenderness NEUROLOGICAL: Cranial nerves II through XII intact. 5/5 strength and sensation in all extremities, Normal speech, normal gait, normal cerebellar function SKIN: Warm, Dry, normal turgor, no rashes or lesions noted. - Medical Decision Making 01/24/18 20:26 72 F with chronic chest pain and headaches, presenting for same. - Labs, trop - tylenol - reassess 01/24/18 20:49 Labs wnl Pt is well appearing, with normal vitals. Clinically stable for DC at this time. I discussed the physical exam findings, ancillary test results and final diagnoses with the patient. I answered all of the patient's questions. The patient was satisfied with the care received and felt comfortable with the discharge plan and treatment plan. The patient agrees to follow up with the primary care physician within 24-72 hours.
[2018-01-24 21:41] VITALS: BP 129/71; PULSE 88; TEMP 97.7; BMI 32.0
== END 2018-01-24 22:24 | disposition home or self-care (01) ==
LOC: JER 19:04
DX: R07.89 Other chest pain (principal); I10 Essential (primary) hypertension; E78.5 Hyperlipidemia, unspecified; J44.9 Chronic obstructive pulmonary disease, unspecified; E11.9 Type 2 diabetes mellitus without complications
CPT/HCPCS: 36415; 80053; 82550; 84484; 85025; 99281-25

== ENCOUNTER 2018-01-25 17:39 | Emergency (ER) | payer OTHER ==
[2018-01-25 17:55] VITALS: PULSE 88; BMI 36.6
--- NOTE | 2018-01-25 17:55 | PDOC ---
Rapid Medical Evaluation Chief Complaint: Chest Pain Time Seen by Provider: 01/25/18 17:50 Medical Evaluation: Allergies Allergy/AdvReac Type Severity Reaction Status Date / Time aspirin Allergy Severe "NERVOUS" Verified 01/19/18 17:41 morphine Allergy Severe "ANXIETY-DE Verified 01/19/18 17:41 SPERATION" 01/25/18 17:51 I have performed a brief in person evaluation of this patient The patient is a 72 yo F w/ a h/o HTN, HLD, DM, GERD, ulcers, CVA, COPD, anxiety , comes in c/o L sided intermittent chest pain since yesterday, with mild SOB I have only ordered the following EKG, trops, fingerstick, tylenol due to patient's frequent visits The patient will proceed to the ED for further evaluation 01/25/18 17:55 Discharge Disposition - Referrals Referrals: Waldo Mabry MD [Primary Care Provider] - - Patient Instructions - Post Discharge Activity
[2018-01-25] MEDS ORDERED: ACETAMINOPHEN 325 MG TABLET (FP) PO ONE (17:56)
[2018-01-25] MEDS ORDERED: ACETAMINOPHEN 325 MG TABLET (FP) ONE (18:18)
[2018-01-25 19:36] LABS: ANION GAP 7 MMOL/L (8-16); BLOOD UREA NITROGEN 18 mg/dL (7-18); CALCIUM 8.7 mg/dL (8.5-10.1); CHLORIDE 101 mmol/L (98-107); CO2 27 mmol/L (21-32); CREATININE 0.6 mg/dL (0.55-1.3); GLUCOSE,RANDOM 117 mg/dL (74-106); POTASSIUM 4.5 mmol/L (3.5-5.1); SODIUM 134 mmol/L (136-145)
--- NOTE | 2018-01-25 19:41 | PDOC ---
History of Present Illness - General Chief Complaint: Chest Pain Stated Complaint: CHEST PAIN Time Seen by Provider: 01/25/18 17:50 History Source: Patient Exam Limitations: Language Barrier (Showroom Executive Director used) Past History - Past Medical History Allergies/Adverse Reactions: Allergies Allergy/AdvReac Type Severity Reaction Status Date / Time aspirin Allergy Severe "NERVOUS" Verified 01/19/18 17:41 morphine Allergy Severe "ANXIETY-DE Verified 01/19/18 17:41 SPERATION" Home Medications: Ambulatory Orders Amlodipine Besylate 5 mg PO DAILY 11/06/17 Divalproex Sodium [Depakote] 500 mg PO BID 11/06/17 Famotidine 20 mg PO BID 11/06/17 Lisinopril [Prinivil] 5 mg PO DAILY #30 tablet 11/07/17 Anemia: Yes Asthma: No Cancer: No Cardiac Disorders: Yes (Chest pain) 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, baseline confusion and dizziness) COPD: Yes CHF: No DVT: No Dementia: No Diabetes: Yes GI Disorders: Yes (gerd, gastric ulcer, dysphagia) Disorders: Yes (kidney stone in the past) HTN: Yes Hypercholesterolemia: Yes Liver Disease: No Psychiatric Problems: Yes (ANXIETY DEPRESSION) Seizures: Yes (S/P craniotomy for benign tumor - on Depakote for seizure prophylaxis) Thyroid Disease: No - Surgical History Abdominal Surgery: Yes Appendectomy: No Cardiac Surgery: No Cholecystectomy: Yes Lung Surgery: No Neurologic Surgery: Yes (removal left meningioma, craniotomy) Orthopedic Surgery: Yes (bilat knee replacement) - Immunization History Td Vaccination: Yes TDAP Vaccination: No Immunization Up to Date: Yes - Suicide/Smoking/Psychosocial Hx Smoking Status: No Smoking History: Never smoked Have you smoked in the past 12 months: No Number of Cigarettes Smoked Daily: 0 Cigars Per Day: 0 Information on smoking cessation initiated: No Hx Alcohol Use: No Drug/Substance Use Hx: No Substance Use Type: None Hx Substance Use Treatment: No Cardiac Specific PMH - Complaint Specific PMHX Pacemaker: No *Physical Exam - Vital Signs Last Vital Signs Temp Pulse Resp BP Pulse Ox 99.0 F 88 16 130/55 L 100 01/25/18 17:44 01/25/18 17:44 01/25/18 17:44 01/25/18 17:44 01/25/18 17:44 - Physical Exam General Appearance: No: Apparent Distress Respiratory/Chest: positive: Lungs Clear, Normal Breath Sounds. negative: Respiratory Distress Cardiovascular: positive: Regular Rhythm, Regular Rate, S1, S2. negative: Murmur Gastrointestinal/Abdominal: positive: Normal Bowel Sounds, Soft. negative: Tender, Distended, Guarding, Rebound Extremity: positive: Normal Inspection. negative: Pedal Edema, Calf Tenderness Neurologic: positive: Fully Oriented, Alert, Normal Mood/Affect Moderate Sedation - Procedure Monitoring Vital Signs: Procedure Monitoring Vital Signs Temperature 99.0 F 01/25/18 17:44 Pulse Rate 88 01/25/18 17:44 Respiratory Rate 16 01/25/18 17:44 Blood Pressure 130/55 L 01/25/18 17:44 O2 Sat by Pulse Oximetry (%) 100 01/25/18 17:44 ED Treatment Course - LABORATORY CBC & Chemistry Diagram: 01/25/18 18:31 - ADDITIONAL ORDERS Additional order review: Laboratory Results 01/25/18 01/25/18 18:31 18:31 Sodium 134 L Potassium 4.5 Chloride 101 Carbon Dioxide 27 Anion Gap 7 L BUN 18 Creatinine 0.6 Creat Clearance w eGFR > 60 Random Glucose 117 H Calcium 8.7 Creatine Kinase 60 Troponin I < 0.02 - Medications Given in the ED: ED Medications Discontinued Medications Generic Name Dose Route Start Last Admin Trade Name Freq PRN Reason Stop Dose Admin Acetaminophen 650 mg 01/25/18 17:56 01/25/18 18:21 Tylenol - PO 01/25/18 17:57 650 mg ONCE ONE Administration Medical Decision Making - Medical Decision Making 72 y/o F hx HTN, HLD, DM, COPD, CVA, chronic L breast pain, GERD, seizures, intracranial meningioma resected presents to ED for L sided CP and headache x 3 days. Pain is similar in nature to what brought patient to the ED in the past. Patient with multiple visits to ED for similar complaint. Patient requesting prescription for anxiety. Denies fever, chills, cough, sob, abd pain, vomiting, dizziness. Patient had normal nuclear stress test on 05/2017. EKG here shows NSR at 77 bpm, T wave flattening in lead III (similar to prior EKG) Labs reviewed and unremarkable Given recent stress test within this year, nonischemic EKG and neg trop, less suspicious for ACS Patient given Tylenol, advised to f/u with her furniture refinisher and PCP 12/13/18 19:41 *DC/Admit/Observation/Transfer Diagnosis at time of Disposition: Chronic chest pain - Discharge Dispostion Disposition: HOME Condition at time of disposition: Good Decision to Admit order: No - Referrals Referrals: Waldo Mabry MD [Primary Care Provider] - 2 Days - Patient Instructions Printed Discharge Instructions: DI for Chest Pain Additional Instructions: Thank you for choosing [facility]. It was a pleasure taking care of you. Your labs and EKG here were unremarkable Please follow-up with your furniture refinisher and primary care doctor. Return to the Emergency Department if your symptoms worsen or persist, you have fever, shortness of breath, chest pain, severe abdominal pain, vomiting, dizziness or other concerning symptoms. - Post Discharge Activity
--- NOTE | 2018-01-25 20:41 | PDOC ---
*Physical Exam - Vital Signs Last Vital Signs Temp Pulse Resp BP Pulse Ox 99.0 F 88 16 130/55 L 100 01/25/18 17:44 01/25/18 17:44 01/25/18 17:44 01/25/18 17:44 01/25/18 17:44 - Physical Exam Comments: 01/25/18 20:40 The patient was examined by [BABAK Rojo] under my direct supervision. I personally evaluated the patient. I concur with the above findings and the plan of care. ED Treatment Course - LABORATORY CBC & Chemistry Diagram: 01/25/18 18:31 - ADDITIONAL ORDERS Additional order review: Laboratory Results 01/25/18 01/25/18 18:31 18:31 Sodium 134 L Potassium 4.5 Chloride 101 Carbon Dioxide 27 Anion Gap 7 L BUN 18 Creatinine 0.6 Creat Clearance w eGFR > 60 Random Glucose 117 H Calcium 8.7 Creatine Kinase 60 Troponin I < 0.02 - Medications Given in the ED: ED Medications Discontinued Medications Generic Name Dose Route Start Last Admin Trade Name Chance PRN Reason Stop Dose Admin Acetaminophen 650 mg 01/25/18 17:56 01/25/18 18:21 Tylenol - PO 01/25/18 17:57 650 mg ONCE ONE Administration *DC/Admit/Observation/Transfer Diagnosis at time of Disposition: Chronic chest pain - Discharge Dispostion Disposition: HOME Condition at time of disposition: Good - Referrals Referrals: aWldo Mabry MD [Primary Care Provider] - 2 Days - Patient Instructions Printed Discharge Instructions: DI for Chest Pain Additional Instructions: Thank you for choosing [facility]. It was a pleasure taking care of you. Your labs and EKG here were unremarkable Please follow-up with your advance agent and primary care doctor. Return to the Emergency Department if your symptoms worsen or persist, you have fever, shortness of breath, chest pain, severe abdominal pain, vomiting, dizziness or other concerning symptoms. - Post Discharge Activity
[2018-01-26 00:37] VITALS: BP 126/78; TEMP 98.5
--- NOTE | 2018-01-26 10:14 | EKG ---
Test Reason : Blood Pressure : / mmHG Vent. Rate : 084 BPM Atrial Rate : 084 BPM P-R Int : 154 ms QRS Dur : 080 ms QT Int : 362 ms P-R-T Axes : 042 007 032 degrees QTc Int : 427 ms NORMAL SINUS RHYTHM NORMAL ECG WHEN COMPARED WITH ECG OF 24-JAN-2018 19:56, NO SIGNIFICANT CHANGE WAS FOUND Confirmed by ANNITA VENTURA MD ([id number]) on 01/26/2018 10:14:38 AM Referred By: Confirmed By:ANNITA VENTURA MD
== END 2018-01-26 00:37 | disposition home or self-care (01) ==
LOC: JER 17:39
DX: R07.9 Chest pain, unspecified (principal); I10 Essential (primary) hypertension; J44.9 Chronic obstructive pulmonary disease, unspecified; F41.8 Other specified anxiety disorders; E78.00 Pure hypercholesterolemia, unspecified; E11.9 Type 2 diabetes mellitus without complications
CPT/HCPCS: 36415; 80048; 82550; 84484; 93005; 93010; 99281-25

== ENCOUNTER 2018-01-26 17:39 | Emergency (ER) | payer OTHER ==
--- NOTE | 2018-01-26 17:44 | PDOC ---
Rapid Medical Evaluation Time Seen by Provider: 01/26/18 17:43 Medical Evaluation: Allergies Allergy/AdvReac Type Severity Reaction Status Date / Time aspirin Allergy Severe "NERVOUS" Verified 01/19/18 17:41 morphine Allergy Severe "ANXIETY-DE Verified 01/19/18 17:41 SPERATION" I have performed a brief in-person evaluation of this patient. The patient presents with a chief complaint of: chest pain Pertinent physical exam findings: none I have ordered the following: ekg, tylenol The patient will proceed to the ED for further evaluation. Discharge Disposition - Diagnosis Chest pain - Referrals Referrals: Waldo Mabry MD [Primary Care Provider] - - Patient Instructions - Post Discharge Activity
[2018-01-26] MEDS ORDERED: ACETAMINOPHEN 325 MG TABLET (FP) PO ONE (17:55)
[2018-01-26 17:58] VITALS: BP 145/67; PULSE 85; TEMP 99; BMI 28.3
--- NOTE | 2018-01-26 18:49 | PDOC ---
History of Present Illness - General Chief Complaint: Headache Stated Complaint: CHEST PAIN Time Seen by Provider: 01/26/18 17:43 - History of Present Illness Initial Comments: 01/26/18 18:46 72 yo F with h/o HTN, HLD, DM, COPD, CVA, GERD, Chronic left sided chest pain with recurrent ED visits, Intracranial Meningioma, who p/w left sided chest pain , and mid-abdominal pain. Patient reports chronic left sided, dull, chest pain at rest, and worse with touch. Also endorses acute onset of unremititng, crampy , mid-abdominal pain beginning this AM. Patient states that she feels "bloated. " Last BM yesterday, with absent BPR. nml flatulence. Nml PO intake, and appetite. Previous CTA (05/2017) unremarkable and negative for pathology. Patient denies N/V, F,C, Palpitations, leg swelling, leg pain, SOB, urinary complaints, diarrhea, constipation, BPR, hematuria, lightheadedness, weakness, sensory changes. PMHx: as noted above ROS: as noted Allergies: NKDA PMD: Dr. Morgan Past History - Past Medical History Allergies/Adverse Reactions: Allergies Allergy/AdvReac Type Severity Reaction Status Date / Time aspirin Allergy Severe "NERVOUS" Verified 01/26/18 17:57 morphine Allergy Severe "ANXIETY-DE Verified 01/26/18 17:57 SPERATION" Home Medications: Ambulatory Orders Amlodipine Besylate 5 mg PO DAILY 11/06/17 Divalproex Sodium [Depakote] 500 mg PO BID 11/06/17 Famotidine 20 mg PO BID 11/06/17 Lisinopril [Prinivil] 5 mg PO DAILY #30 tablet 11/07/17 Anemia: Yes Asthma: No Cancer: No Cardiac Disorders: Yes (Chest pain) 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, baseline confusion and dizziness) COPD: Yes CHF: No DVT: No Dementia: No Diabetes: Yes GI Disorders: Yes (gerd, gastric ulcer, dysphagia) Disorders: Yes (kidney stone in the past) HTN: Yes Hypercholesterolemia: Yes Liver Disease: No Psychiatric Problems: Yes (ANXIETY DEPRESSION) Seizures: Yes (S/P craniotomy for benign tumor - on Depakote for seizure prophylaxis) Thyroid Disease: No - Surgical History Abdominal Surgery: Yes Appendectomy: No Cardiac Surgery: No Cholecystectomy: Yes Lung Surgery: No Neurologic Surgery: Yes (removal left meningioma, craniotomy) Orthopedic Surgery: Yes (bilat knee replacement) - Immunization History Td Vaccination: Yes TDAP Vaccination: No Immunization Up to Date: Yes - Suicide/Smoking/Psychosocial Hx Smoking Status: No Smoking History: Never smoked Have you smoked in the past 12 months: No Number of Cigarettes Smoked Daily: 0 Cigars Per Day: 0 Hx Alcohol Use: No Drug/Substance Use Hx: No Substance Use Type: None Hx Substance Use Treatment: No Neuro Specific PMHX - Complaint Specific PMHX Glaucoma: No Herniated Disk: No Laminectomy: No Migraine: No Multiple Sclerosis: No TIA: No Review of Systems - Review of Systems Comments:: 01/26/18 18:48 GENERAL/CONSTITUTIONAL: No fever or chills. No weakness. HEAD, EYES, EARS, NOSE AND THROAT: No change in vision. No ear pain or discharge. No sore throat. CARDIOVASCULAR: + chest pain. No shortness of breath. RESPIRATORY: No cough, wheezing, or hemoptysis. GASTROINTESTINAL: + Midabdominal pain. No nausea, vomiting, diarrhea or constipation. GENITOURINARY: No dysuria, frequency, or change in urination. MUSCULOSKELETAL: No joint or muscle swelling or pain. No neck or back pain. SKIN: No rash NEUROLOGIC: No headache, vertigo, loss of consciousness, or change in strength/ sensation. ENDOCRINE: No increased thirst. No abnormal weight change HEMATOLOGIC/LYMPHATIC: No anemia, easy bleeding, or history of blood clots. ALLERGIC/IMMUNOLOGIC: No hives or skin allergy. *Physical Exam - Vital Signs Last Vital Signs Temp Pulse Resp BP Pulse Ox 99 F 85 16 145/67 99 01/26/18 17:54 01/26/18 17:54 01/26/18 17:54 01/26/18 17:54 01/26/18 17:54 - Physical Exam Comments: 01/26/18 18:48 GENERAL: Awake, alert, and fully oriented, in no acute distress HEAD: No signs of trauma, normocephalic, atraumatic EYES: PERRLA, EOMI, sclera anicteric, conjunctiva clear ENT: Auricles normal inspection, hearing grossly normal, nares patent, oropharynx clear without exudates. Moist mucosa NECK: Normal ROM, supple, no lymphadenopathy, JVD, or masses LUNGS: No distress, speaks full sentences, clear to auscultation bilaterally HEART: Regular rate and rhythm, normal S1 and S2, no murmurs, rubs or gallops, peripheral pulses normal and equal bilaterally. ABDOMEN: + midabodminal ttp. distended. Soft,normoactive bowel sounds. No guarding, no rebound. No masses. Neg CVA ttp. EXTREMITIES : Normal inspection, Normal range of motion, no edema. No clubbing or cyanosis. SKIN: Warm, Dry, normal turgor, no rashes or lesions noted Moderate Sedation - Procedure Monitoring Vital Signs: Procedure Monitoring Vital Signs Temperature 99 F 01/26/18 17:54 Pulse Rate 85 01/26/18 17:54 Respiratory Rate 16 01/26/18 17:54 Blood Pressure 145/67 01/26/18 17:54 O2 Sat by Pulse Oximetry (%) 99 01/26/18 17:54 ED Treatment Course - LABORATORY CBC & Chemistry Diagram: 01/26/18 20:00 - Medications Given in the ED: ED Medications Discontinued Medications Generic Name Dose Route Start Last Admin Trade Name Freq PRN Reason Stop Dose Admin Acetaminophen 650 mg 01/26/18 17:55 01/26/18 17:58 Tylenol - PO 01/26/18 17:56 650 mg ONCE ONE Administration Medical Decision Making - Medical Decision Making 01/26/18 19:42 72 yo F with h/o HTN, HLD, DM, COPD, CVA, GERD, Chronic left sided chest pain with recurrent ED visits, Intracranial Meningioma, who p/w left sided chest pain , and mid-abdominal pain. VSS, AF A&Ox3. ACS/RI r/o. + Midabdominal/ periumbilical/epigastirc ttp. SBO, vs constipation. Will consider colitis, esophagitis, gastirits, AAA, Ao dissection. Low suspicion pyelonephritis, pancreatitis. Pain control and reasses. ED Course: CBC,CMP, Cardiac NJ. EKG Tylenol, Ranitidinem, Colace CT AP EKG: NSR with absent MACHELLE, STD. Normal interval duration and axis. Absent Q waves. Nml R wave progression. 01/26/18 23:09 CBC: Unremarkable Trop: Neg 01/27/18 01:04 Pt. pain improved. Seen ambulating hallways w/out difficulty Tolerating PO intake Stable for d/c with return precautions Advised to f/u with PMD, cardiology 01/27/18 01:20 CT AP : No acute pathology *DC/Admit/Observation/Transfer Diagnosis at time of Disposition: Chest pain Qualifiers: Chest pain type: unspecified Qualified Code(s): R07.9 - Chest pain, unspecified - Discharge Dispostion Condition at time of disposition: Stable Decision to Admit order: No - Referrals Referrals: Waldo Mabry MD [Primary Care Provider] - - Patient Instructions Printed Discharge Instructions: DI for Atypical Chest Pain Additional Instructions: Please return to the emergency department with any new or worsening symptoms or concerns. Please follow up with your primary care physician within 72 hours. - Post Discharge Activity - Attestations Physician Attestion: 01/26/18 18:48 I attest to the information provided in this note.
--- NOTE | 2018-01-26 19:24 | PDOC ---
Attending Attestation - HPI HPI: 01/26/18 19:44 The patient is a 72-year-old female with a past medical history significant HTN , HLD, DM, COPD, CVA, chronic L breast pain, GERD, seizures, intracranial meningioma s/p resected presents to the emergency department with chest pain and abdominal pain. The patient presents with L. sided anterior chest pain, that s nonpruritic and radiating in nature. The patient reports the pain is aggravated with touching, without any known alleviation factor. The patient reports an additional concern of acute mid-abdominal pain, thats bloaty and gassy in quality. The patient reports her last bowel movement was yesterday, since then she's been feeling "blocked," denies melena, hematochezia, diarrhea, constipation, urinary symptoms or changes in bowel habits. Denies fever, chills , cough, headache, SOB. Allergies: ASA, morphine PCP: Waldo Araujo MD - Physicial Exam PE: 01/26/18 20:18 GENERAL: The patient is in no acute distress. Awake, alert and Oriented. Answering all questions HEAD: Normal with no signs of trauma. EYES: PERRLA, EOMI, sclera anicteric, conjunctiva clear. ENT: Ears normal, nares patent, oropharynx clear without exudates. Moist mucous membranes. NECK: Normal range of motion, supple without lymphadenopathy, JVD, or masses. LUNGS: Breath sounds equal, clear to auscultation bilaterally. No wheezes, and no crackles. HEART:Regular rate and rhythm, normal S1 and S2 without murmur, rub or gallop. ABDOMEN: +Firm and distended, epigastric and periumbilical tenderness. No guarding, no rebound. No masses palpable. EXTREMITIES: Normal range of motion, no edema. No clubbing or cyanosis. No erythema, or tenderness. NEUROLOGICAL: Cranial nerves II through XII grossly intact. Normal speech. No focal neurological deficits. MUSCULOSKELETAL: Back non-tender to palpation, no CVA tenderness SKIN: Warm, Dry, normal turgor, no rashes or lesions noted. - Medical Decision Making 01/26/18 19:44 Documentation prepared by Alexandra Mendoza, acting as medical lab director for Julieth Stone MD. <Alexandra Mendoza - Last Filed: 01/26/18 20:18> - Resident Resident Name: Gonzalo Lutz - ED Attending Attestation I have performed the following: I have examined & evaluated the patient, The case was reviewed & discussed with the resident, I agree w/resident's findings & plan, Exceptions are as noted - HPI HPI: 01/26/18 19:24 Attempted to find this patient for medical assessment Unable to find her will continue to look for patient - Medical Decision Making Ms Sumner is well known to the ER She presents today with her standard complaint of chest pain today however, she also complains of epigastric pain She also reports abdominal distention and pain She is concerned about constipation since her last bowel movement was 1 day ago On exam: Abd distended, firm, tender to palpation Ambulatory through out the ER with no difficulty Twelve-lead EKG was performed and reviewed by me. There is normal sinus rhythm with a normal rate. The axis is normal. The intervals are normal. There are no ST or T wave abnormalities. Impression: Normal twelve-lead EKG 01/26/18 21:08 Laboratory Tests 01/24/18 01/25/18 01/26/18 19:40 18:31 20:00 WBC 5.6 5.0 Hgb 9.2 L 9.5 L Hct 28.4 L 29.8 L Plt Count 358 366 BUN 18 Creatinine 0.6 Creatine Kinase Troponin I 01/26/18 20:03 WBC Hgb Hct Plt Count BUN Creatinine Creatine Kinase 60 Troponin I < 0.02 CT pending 01/27/18 00:37 CT negative for acute intra-abdominal pathology Will plan to discharge to home <Julieth Stone - Last Filed: 01/27/18 01:34>
[2018-01-26] MEDS ORDERED: RANITIDINE HCL 150 MG TABLET (FP) PO ONE (19:47)
[2018-01-26] MEDS ORDERED: DOCUSATE NA 100 MG/10 ML UNIT-DOSE CUPS PO ONE (19:55)
[2018-01-26] MEDS ORDERED: DOCUSATE SODIUM 100 MG CAPSULE (FP) PO ONE (20:01)
[2018-01-26] MEDS ORDERED: RANITIDINE HCL 150 MG TABLET (FP) ONE (20:01)
[2018-01-26 20:05] LABS: EOS % 4.3 % (0-4.5); HEMATOCRIT 29.8 % (32.4-45.2); HEMOGLOBIN 9.5 GM/dL (10.7-15.3); MCH 23.9 pg (25.7-33.7); MEAN CELL VOLUME 74.8 fl (80-96); MEAN PLT VOLUME 7.2 fl (7.5-11.1); MONO % 14.9 % (3.8-10.2); NEUT % 52.8 % (42.8-82.8); PLATELET COUNT 366 K/MM3 (134-434); RBC 3.99 M/mm3 (3.60-5.2)
[2018-01-26 20:35] LABS: LIPASE 192 U/L (73-393)
[2018-01-27 09:23] LABS: ALBUMIN 3.6 g/dl (3.4-5.0); ALK PHOS 173 U/L (45-117); ANION GAP 9 MMOL/L (8-16); BILIRUBIN,TOTAL 0.2 mg/dL (0.2-1); BLOOD UREA NITROGEN 12 mg/dL (7-18); CALCIUM 8.7 mg/dL (8.5-10.1); CHLORIDE 97 mmol/L (98-107); CO2 25 mmol/L (21-32); CREATININE 0.6 mg/dL (0.55-1.3); GLUCOSE,RANDOM 107 mg/dL (74-106); POTASSIUM 4.4 mmol/L (3.5-5.1); SGOT/AST 19 U/L (15-37); SGPT/ALT 21 U/L (13-61); SODIUM 131 mmol/L (136-145); TOT PROT 7.5 g/dl (6.4-8.2)
--- NOTE | 2018-01-28 12:23 | EKG ---
Test Reason : Blood Pressure : / mmHG Vent. Rate : 081 BPM Atrial Rate : 081 BPM P-R Int : 166 ms QRS Dur : 072 ms QT Int : 382 ms P-R-T Axes : 041 005 026 degrees QTc Int : 443 ms NORMAL SINUS RHYTHM NORMAL ECG WHEN COMPARED WITH ECG OF 25-JAN-2018 17:55, NO SIGNIFICANT CHANGE WAS FOUND Confirmed by ADRIENNE SADLER MD ([id number]) on 01/28/2018 12:23:24 PM Referred By: Confirmed By:ADRIENNE SADLER MD
--- NOTE | 2018-01-28 12:24 | EKG ---
Test Reason : Blood Pressure : / mmHG Vent. Rate : 081 BPM Atrial Rate : 081 BPM P-R Int : 162 ms QRS Dur : 078 ms QT Int : 382 ms P-R-T Axes : 052 011 032 degrees QTc Int : 443 ms NORMAL SINUS RHYTHM NORMAL ECG WHEN COMPARED WITH ECG OF 25-JAN-2018 17:55, NO SIGNIFICANT CHANGE WAS FOUND Confirmed by ADRIENNE SADLER MD ([id number]) on 01/28/2018 12:24:48 PM Referred By: Confirmed By:ADRIENNE SADLER MD
== END 2018-01-27 02:03 | disposition home or self-care (01) ==
LOC: JER 17:39
DX: R07.9 Chest pain, unspecified (principal); I10 Essential (primary) hypertension; E78.5 Hyperlipidemia, unspecified; E11.9 Type 2 diabetes mellitus without complications; J44.9 Chronic obstructive pulmonary disease, unspecified; K21.9 Gastro-esophageal reflux disease without esophagitis; G89.29 Other chronic pain
CPT/HCPCS: 36415; 74176-TC; 80053; 82550; 83690; 84484; 85025; 93005; 93010; 99282-25

== ENCOUNTER 2018-01-28 18:00 | Emergency (ER) | payer OTHER ==
[2018-01-28 18:21] VITALS: BP 136/74; PULSE 87; TEMP 97; BMI 31.3
--- NOTE | 2018-01-28 18:25 | PDOC ---
Attending Attestation - Physicial Exam PE: 01/28/18 19:36 GENERAL: Awake, alert, and fully oriented, in no acute distress. HEAD: No signs of trauma. EYES: PERRLA, EOMI, sclera anicteric, conjunctiva clear. ENT: Auricles normal inspection, hearing grossly normal, nares patent, oropharynx clear without exudates. Moist mucosa. NECK: Normal ROM, supple, no lymphadenopathy, JVD, or masses. LUNGS: Breath sounds equal, clear to auscultation bilaterally. No wheezes, and no crackles. HEART: Regular rate and rhythm, normal S1 and S2, no murmurs, rubs or gallops. ABDOMEN: Soft, nontender, normoactive bowel sounds. No guarding, no rebound. No masses. EXTREMITIES: Normal range of motion, no edema. No clubbing or cyanosis. No cords , erythema, or tenderness. NEUROLOGICAL: Cranial nerves II through XII intact. Normal speech, normal gait. SKIN: Warm, dry, normal turgor, no rashes or lesions noted. Documentation prepared by Sue Dudley, acting as medical records assistant for Florinda Gallagher MD. <Sue Lyles - Last Filed: 01/28/18 19:36> - Resident Resident Name: Abdoul Burgos - ED Attending Attestation I have performed the following: I have examined & evaluated the patient, The case was reviewed & discussed with the resident, I agree w/resident's findings & plan, Exceptions are as noted - HPI HPI: 01/28/18 19:25 this 72 yo female is well known to our ED and presents with chronic chest pain - Medical Decision Making 01/28/18 19:48 ekg is nsr with no ischemia, no changes since her prior 01/28/18 19:53 lab work was done 2 days ago and it is unremarkable <Florinda Gallagher - Last Filed: 01/28/18 19:54>
--- NOTE | 2018-01-28 18:35 | PDOC ---
History of Present Illness - General Chief Complaint: Chest Pain Stated Complaint: CHEST PAIN Time Seen by Provider: 01/28/18 18:24 - History of Present Illness Initial Comments: 01/28/18 18:35 Ms. Sumner is a 72 yo female w/ pmh of HTN, HLD, DM, COPD, CVA, seizures, GERD , chronic L breast pain, and intracranial meningioma s/p resection who presents for evaluation of 1 day history of left breast pain typical of her usual chronic symptoms. She reports pain was compounded by headache and started this morning. She took 2 normal strength tylenol and presents for evaluation The patient denies shortness of breath and dizziness. Denies fever, chills, nausea, vomit, diarrhea and constipation. Denies dysuria, frequency, urgency and hematuria. Past History - Past Medical History Allergies/Adverse Reactions: Allergies Allergy/AdvReac Type Severity Reaction Status Date / Time aspirin Allergy Severe "NERVOUS" Verified 01/28/18 18:20 morphine Allergy Severe "ANXIETY-DE Verified 01/28/18 18:20 SPERATION" Home Medications: Ambulatory Orders Amlodipine Besylate 5 mg PO DAILY 11/06/17 Divalproex Sodium [Depakote] 500 mg PO BID 11/06/17 Famotidine 20 mg PO BID 11/06/17 Lisinopril [Prinivil] 5 mg PO DAILY #30 tablet 11/07/17 Anemia: Yes Asthma: No Cancer: No Cardiac Disorders: Yes (Chest pain) 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, baseline confusion and dizziness) COPD: Yes CHF: No DVT: No Dementia: No Diabetes: Yes GI Disorders: Yes (gerd, gastric ulcer, dysphagia) Disorders: Yes (kidney stone in the past) HTN: Yes Hypercholesterolemia: Yes Liver Disease: No Psychiatric Problems: Yes (ANXIETY DEPRESSION) Seizures: Yes (S/P craniotomy for benign tumor - on Depakote for seizure prophylaxis) Thyroid Disease: No - Surgical History Abdominal Surgery: Yes Appendectomy: No Cardiac Surgery: No Cholecystectomy: Yes Lung Surgery: No Neurologic Surgery: Yes (removal left meningioma, craniotomy) Orthopedic Surgery: Yes (bilat knee replacement) - Immunization History Td Vaccination: Yes TDAP Vaccination: No Immunization Up to Date: Yes - Suicide/Smoking/Psychosocial Hx Smoking Status: No Smoking History: Never smoked Have you smoked in the past 12 months: No Number of Cigarettes Smoked Daily: 0 Cigars Per Day: 0 Hx Alcohol Use: No Drug/Substance Use Hx: No Substance Use Type: None Hx Substance Use Treatment: No Review of Systems - Review of Systems Comments:: 01/28/18 18:35 GENERAL/CONSTITUTIONAL: No fever or chills. No weakness. HEAD, EYES, EARS, NOSE AND THROAT: No change in vision. No ear pain or discharge. No sore throat. CARDIOVASCULAR: +L Breast pain. No shortness of breath RESPIRATORY: No cough, wheezing, or hemoptysis. GASTROINTESTINAL: No nausea, vomiting, diarrhea or constipation. GENITOURINARY: No dysuria, frequency, or change in urination. MUSCULOSKELETAL: No joint or muscle swelling or pain. No neck or back pain. SKIN: No rash NEUROLOGIC: +Headache. No vertigo, loss of consciousness, or change in strength/ sensation. ENDOCRINE: No increased thirst. No abnormal weight change HEMATOLOGIC/LYMPHATIC: No anemia, easy bleeding, or history of blood clots. ALLERGIC/IMMUNOLOGIC: No hives or skin allergy. *Physical Exam - Vital Signs Last Vital Signs Temp Pulse Resp BP Pulse Ox 97 F L 87 18 136/74 99 01/28/18 18:18 01/28/18 18:18 01/28/18 18:18 01/28/18 18:18 01/28/18 18:18 - Physical Exam Comments: 01/28/18 18:35 GENERAL: Awake, alert, and fully oriented, in no acute distress HEAD: No signs of trauma, normocephalic, atraumatic EYES: PERRLA, EOMI, sclera anicteric, conjunctiva clear ENT: Auricles normal inspection, hearing grossly normal, nares patent, oropharynx clear without exudates. Moist mucosa NECK: Normal ROM, supple, no lymphadenopathy, JVD, or masses LUNGS: No distress, speaks full sentences, clear to auscultation bilaterally HEART: Regular rate and rhythm, normal S1 and S2, no murmurs, rubs or gallops, peripheral pulses normal and equal bilaterally. ABDOMEN: Soft, nontender, normoactive bowel sounds. No guarding, no rebound. No masses EXTREMITIES: Normal inspection, Normal range of motion, no edema. No clubbing or cyanosis. NEUROLOGICAL: Cranial nerves II through XII grossly intact. Normal speech, normal gait, no focal sensorimotor deficits SKIN: Warm, Dry, normal turgor, no rashes or lesions noted. Moderate Sedation - Procedure Monitoring Vital Signs: Procedure Monitoring Vital Signs Temperature 97 F L 01/28/18 18:18 Pulse Rate 87 01/28/18 18:18 Respiratory Rate 18 01/28/18 18:18 Blood Pressure 136/74 01/28/18 18:18 O2 Sat by Pulse Oximetry (%) 99 01/28/18 18:18 Medical Decision Making - Medical Decision Making 01/28/18 19:55 Ms. Sumner is a 72 yo female w/ pmh as described who presents for evaluation of her typical (atypical) chest pain. Patient resting comfortably and no concerning findings on exam. Reviewed labs from 2 days ago w/ no concerning findings; decision made to withhold further laboratory evaluation at this time. EKG normal. Patient given motrin and turkey sandwhich and reporting improvement of symptoms. Discharging to home. *DC/Admit/Observation/Transfer Diagnosis at time of Disposition: Atypical chest pain - Discharge Dispostion Disposition: HOME - Referrals - Patient Instructions Printed Discharge Instructions: DI for Atypical Chest Pain Additional Instructions: You were evaluated today in the ER for your chest pain. No concerning findings were found at this time. Please follow-up with primary care provider later this week for further outpatient evaluation. Return to ER if any fever, chills, change in pain, or other concerning symptoms. - Post Discharge Activity
[2018-01-28] MEDS ORDERED: IBUPROFEN 400 MG TABLET (FP) PO ONE ×4 (18:41→20:19)
--- NOTE | 2018-01-29 09:50 | EKG ---
Test Reason : Blood Pressure : / mmHG Vent. Rate : 083 BPM Atrial Rate : 083 BPM P-R Int : 154 ms QRS Dur : 074 ms QT Int : 374 ms P-R-T Axes : 039 010 035 degrees QTc Int : 439 ms NORMAL SINUS RHYTHM NORMAL ECG WHEN COMPARED WITH ECG OF 26-JAN-2018 23:41, NO SIGNIFICANT CHANGE WAS FOUND Confirmed by J LUIS POWELL MD ([id number]) on 01/29/2018 9:50:01 AM Referred By: Confirmed By:J LUIS POWELL MD
== END 2018-01-28 20:27 | disposition home or self-care (01) ==
LOC: JER 18:00
DX: R07.89 Other chest pain (principal); J44.9 Chronic obstructive pulmonary disease, unspecified; E11.9 Type 2 diabetes mellitus without complications; I10 Essential (primary) hypertension; F41.8 Other specified anxiety disorders; I69.398 Other sequelae of cerebral infarction
CPT/HCPCS: 93005; 93010; 99282-25

== ENCOUNTER 2018-01-29 17:18 | Emergency (ER) | payer OTHER ==
[2018-01-29 17:55] VITALS: TEMP 98.4; BMI 33.6
[2018-01-29] MEDS ORDERED: ACETAMINOPHEN 325 MG TABLET (FP) PO ONE (18:25)
--- NOTE | 2018-01-29 18:25 | PDOC ---
History of Present Illness - General Chief Complaint: Chest Pain Stated Complaint: CHEST PAIN Time Seen by Provider: 01/29/18 18:20 History Source: Patient - History of Present Illness Presenting Symptoms: Chest Pain Past History - Past Medical History Allergies/Adverse Reactions: Allergies Allergy/AdvReac Type Severity Reaction Status Date / Time aspirin Allergy Severe "NERVOUS" Verified 01/28/18 18:20 morphine Allergy Severe "ANXIETY-DE Verified 01/28/18 18:20 SPERATION" Home Medications: Ambulatory Orders Amlodipine Besylate 5 mg PO DAILY 11/06/17 Divalproex Sodium [Depakote] 500 mg PO BID 11/06/17 Famotidine 20 mg PO BID 11/06/17 Lisinopril [Prinivil] 5 mg PO DAILY #30 tablet 11/07/17 Anemia: Yes Asthma: No Cancer: No Cardiac Disorders: Yes (Chest pain) 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, baseline confusion and dizziness) COPD: Yes CHF: No DVT: No Dementia: No Diabetes: Yes GI Disorders: Yes (gerd, gastric ulcer, dysphagia) Disorders: Yes (kidney stone in the past) HTN: Yes Hypercholesterolemia: Yes Liver Disease: No Psychiatric Problems: Yes (ANXIETY DEPRESSION) Seizures: Yes (S/P craniotomy for benign tumor - on Depakote for seizure prophylaxis) Thyroid Disease: No - Surgical History Abdominal Surgery: Yes Appendectomy: No Cardiac Surgery: No Cholecystectomy: Yes Lung Surgery: No Neurologic Surgery: Yes (removal left meningioma, craniotomy) Orthopedic Surgery: Yes (bilat knee replacement) - Immunization History Td Vaccination: Yes TDAP Vaccination: No Immunization Up to Date: Yes - Suicide/Smoking/Psychosocial Hx Smoking Status: No Smoking History: Never smoked Have you smoked in the past 12 months: No Number of Cigarettes Smoked Daily: 0 Cigars Per Day: 0 Information on smoking cessation initiated: No Hx Alcohol Use: No Drug/Substance Use Hx: No Substance Use Type: None Hx Substance Use Treatment: No Cardiac Specific PMH - Complaint Specific PMHX Pacemaker: No Review of Systems - Review of Systems Respiratory: No: Cough, Shortness of Breath Cardiac (ROS): Yes: Chest Pain. No: Lightheadedness, Palpitations, Syncope *Physical Exam - Vital Signs Last Vital Signs Temp Pulse Resp BP Pulse Ox 98.4 F 84 16 118/62 96 01/29/18 17:52 01/29/18 20:29 01/29/18 17:52 01/29/18 20:29 01/29/18 20:29 - Physical Exam General Appearance: Yes: Appropriately Dressed. No: Apparent Distress HEENT: positive: Normal Voice Neck: positive: Supple Respiratory/Chest: positive: Lungs Clear, Normal Breath Sounds Cardiovascular: positive: Regular Rate, S1, S2 Gastrointestinal/Abdominal: positive: Soft. negative: Tender Integumentary: positive: Dry, Warm Neurologic: positive: Fully Oriented, Alert, Normal Mood/Affect Moderate Sedation - Procedure Monitoring Vital Signs: Procedure Monitoring Vital Signs Temperature 98.4 F 01/29/18 17:52 Pulse Rate 84 01/29/18 20:29 Respiratory Rate 16 01/29/18 17:52 Blood Pressure 118/62 01/29/18 20:29 O2 Sat by Pulse Oximetry (%) 96 01/29/18 20:29 ED Treatment Course - LABORATORY CBC & Chemistry Diagram: 01/29/18 20:17 01/29/18 20:17 - ADDITIONAL ORDERS Additional order review: 01/29/18 20:17 RBC 3.85 MCV 74.9 L MCHC 32.3 RDW 18.1 H MPV 7.2 L Neutrophils % 53.8 Lymphocytes % 26.0 Monocytes % 16.8 H Eosinophils % 2.9 Basophils % 0.5 - Medications Given in the ED: ED Medications Discontinued Medications Generic Name Dose Route Start Last Admin Trade Name Chance PRN Reason Stop Dose Admin Acetaminophen 650 mg 01/29/18 18:25 01/29/18 19:02 Tylenol - PO 01/29/18 18:26 650 mg ONCE ONE Administration Sodium Chloride 3 ml 01/29/18 22:12 01/29/18 22:19 Normal Saline For Inhalation - IH 01/29/18 22:13 3 ml ONCE ONE Administration Medical Decision Making - Medical Decision Making 01/29/18 18:21 72 yo F, h/o HLD, HTN, CVA, DM, COPD, GERD, seizures, chronic chest pain, well known to ED staff for numerous ED visits for CP, usually discharged from the ER , here w/ usual chest pain today. Denies any other sxs and requesting tylenol which she usually does. Last seen yesterday w/ unchanged EKG as documented. Recent labs negative. Of note, had neg stress this year per records See exam Chronic chest pain Numerous ED visits for same Unremarkable ekg in ED yesterday Neg stress this yr Well geoffrey w/ unremarkable exam now -req tylenol -ekg -m/l will withhold further w/u given hx, and multiple negative w/u in ED recently 01/29/18 19:12 Signed out to LARA Gallagher pending ekg. Per ED attg, if ekg unremarkable, pt can be discharged *DC/Admit/Observation/Transfer Diagnosis at time of Disposition: Atypical chest pain - Discharge Dispostion Disposition: HOME Condition at time of disposition: Stable - Referrals Referrals: Waldo Mabry MD [Primary Care Provider] - - Patient Instructions Printed Discharge Instructions: DI for Atypical Chest Pain Additional Instructions: please follow up with your central office operator supervisor Additional Instructions: * Please call your personal physician to report your Emergency Department visit and to report your progress, if any. * If there is no improvement in symptoms in 2 days call your physician. * Return to the Emergency Department for any worsening symptoms. - Post Discharge Activity
[2018-01-29] MEDS ORDERED: ACETAMINOPHEN 325 MG TABLET (FP) ONE (19:15)
--- NOTE | 2018-01-29 19:32 | PDOC ---
*Physical Exam - Vital Signs Last Vital Signs Temp Pulse Resp BP Pulse Ox 98.4 F 102 H 16 113/58 L 95 01/29/18 17:52 01/29/18 17:52 01/29/18 17:52 01/29/18 17:52 01/29/18 17:52 - Physical Exam General Appearance: Yes: Appropriately Dressed, Other (sleepy arousable) Respiratory/Chest: positive: Lungs Clear, Normal Breath Sounds Cardiovascular: positive: Regular Rhythm, Regular Rate Gastrointestinal/Abdominal: positive: Normal Bowel Sounds, Soft Extremity: positive: Normal Capillary Refill, Normal Inspection, Normal Range of Motion Integumentary: positive: Normal Color, Dry, Warm Neurologic: positive: Fully Oriented, Alert ED Treatment Course - LABORATORY CBC & Chemistry Diagram: 01/29/18 20:17 01/29/18 20:17 - Medications Given in the ED: ED Medications Discontinued Medications Generic Name Dose Route Start Last Admin Trade Name Freq PRN Reason Stop Dose Admin Acetaminophen 650 mg 01/29/18 18:25 01/29/18 19:02 Tylenol - PO 01/29/18 18:26 650 mg ONCE ONE Administration Medical Decision Making - Medical Decision Making 01/29/18 20:00 patient asleep arousable. b/p 118/62; 84 hrt, 96% resp 18 01/29/18 20:29 01/29/18 20:53 labs pending. chest xray negative, patient now alert awake will d/c home if normal labs *DC/Admit/Observation/Transfer Diagnosis at time of Disposition: Atypical chest pain - Discharge Dispostion Condition at time of disposition: Stable - Referrals Referrals: Waldo Mabry MD [Primary Care Provider] - - Patient Instructions Printed Discharge Instructions: DI for Atypical Chest Pain Additional Instructions: please follow up with your human services worker Additional Instructions: * Please call your personal physician to report your Emergency Department visit and to report your progress, if any. * If there is no improvement in symptoms in 2 days call your physician. * Return to the Emergency Department for any worsening symptoms. - Post Discharge Activity
[2018-01-29 20:25] LABS: BASO % 0.5 % (0-2.0); EOS % 2.9 % (0-4.5); HEMATOCRIT 28.9 % (32.4-45.2); HEMOGLOBIN 9.3 GM/dL (10.7-15.3); MCH 24.2 pg (25.7-33.7); MCHC 32.3 g/dl (32.0-36.0); MEAN CELL VOLUME 74.9 fl (80-96); MEAN PLT VOLUME 7.2 fl (7.5-11.1); MONO % 16.8 % (3.8-10.2); NEUT % 53.8 % (42.8-82.8); PLATELET COUNT 362 K/MM3 (134-434); RBC 3.85 M/mm3 (3.60-5.2); RDW 18.1 % (11.6-15.6); WHITE BLOOD COUNT 5.3 K/mm3 (4.0-10.0)
[2018-01-29 20:33] VITALS: BP 118/62; PULSE 84
[2018-01-29 20:56] LABS: INR 0.98 (0.83-1.09); PROTHROMBIN TIME (PATIENT) 11.6 SEC (9.7-13.0)
[2018-01-29 21:00] LABS: BILIRUBIN,TOTAL 0.2 mg/dL (0.2-1); CALCIUM 8.2 mg/dL (8.5-10.1); CO2 27 mmol/L (21-32)
[2018-01-29 21:01] LABS: ALBUMIN 3.4 g/dl (3.4-5.0); ALK PHOS 176 U/L (45-117); ANION GAP 6 MMOL/L (8-16); BLOOD UREA NITROGEN 17 mg/dL (7-18); CHLORIDE 102 mmol/L (98-107); CREATININE 0.7 mg/dL (0.55-1.3); GLUCOSE,RANDOM 138 mg/dL (74-106); MAGNESIUM 2.2 mg/dL (1.8-2.4); POTASSIUM 4.6 mmol/L (3.5-5.1); SGOT/AST 17 U/L (15-37); SGPT/ALT 22 U/L (13-61); SODIUM 135 mmol/L (136-145); TOT PROT 7.1 g/dl (6.4-8.2)
[2018-01-29] MEDS ORDERED: SODIUM CHLORIDE FOR INHALATION 3 ML VIAL.NEB IH ONE (22:12)
--- NOTE | 2018-01-30 16:28 | EKG ---
Test Reason : Blood Pressure : / mmHG Vent. Rate : 092 BPM Atrial Rate : 092 BPM P-R Int : 160 ms QRS Dur : 072 ms QT Int : 360 ms P-R-T Axes : 046 006 040 degrees QTc Int : 445 ms NORMAL SINUS RHYTHM NORMAL ECG Confirmed by MD JARON, UMBERTO ([id number]) on 01/30/2018 4:27:41 PM Referred By: Confirmed By:UMBERTO SALMERON MD
== END 2018-01-30 01:32 | disposition home or self-care (01) ==
LOC: JER 17:18
PROC: 3E0F7GC Introduction of Other Therapeutic Substance into Respiratory Tract, Via Natural or Artificial Opening (ICD-10-PCS; principal; 2018-01-29)
DX: R07.89 Other chest pain (principal); I10 Essential (primary) hypertension; E78.5 Hyperlipidemia, unspecified; I69.398 Other sequelae of cerebral infarction; K21.9 Gastro-esophageal reflux disease without esophagitis; G89.29 Other chronic pain
CPT/HCPCS: 36415; 71046-TC-FY; 80053; 82550; 83735; 84484; 85025; 85610; 93005; 93010; 99282-25

== ENCOUNTER 2018-01-30 18:18 | Emergency (ER) | payer OTHER ==
[2018-01-30 18:33] VITALS: BMI 41.8
--- NOTE | 2018-01-30 18:34 | PDOC ---
Rapid Medical Evaluation Chief Complaint: Shortness of Breath Medical Evaluation: Allergies Allergy/AdvReac Type Severity Reaction Status Date / Time aspirin Allergy Severe "NERVOUS" Verified 01/30/18 18:28 morphine Allergy Severe "ANXIETY-DE Verified 01/30/18 18:28 SPERATION" 01/30/18 18:30 I have performed a brief in-person evaluation of this patient. The patient presents with a chief complaint of:CHESTPAIN Pertinent physical exam findings: PALE, nO sob, AMBULATORY I have ordered the following: ekg The patient will proceed to the ED for further evaluation. 01/30/18 18:35 Discharge Disposition - Diagnosis Chest pain Qualifiers: Chest pain type: unspecified Qualified Code(s): R07.9 - Chest pain, unspecified - Referrals Referrals: Waldo Mabry MD [Primary Care Provider] - - Patient Instructions - Post Discharge Activity
--- NOTE | 2018-01-30 19:17 | PDOC ---
History of Present Illness - General Chief Complaint: Chest Pain Stated Complaint: Shortness of Breath Time Seen by Provider: 01/30/18 19:16 History Source: Patient - History of Present Illness Initial Comments: 01/30/18 19:52 72 year old female seen by me last night for left sided chest/ breast pain reproducible in nature. h/o HLD, HTN, CVA, DM, COPD, GERD, seizures, chronic chest pain, well known to ED staff for numerous ED visits for chest pain. denies NVD, abdominal pain, urinary symptoms, URI symptoms Past History - Past Medical History Allergies/Adverse Reactions: Allergies Allergy/AdvReac Type Severity Reaction Status Date / Time aspirin Allergy Severe "NERVOUS" Verified 01/30/18 19:52 morphine Allergy Severe "ANXIETY-DE Verified 01/30/18 19:52 SPERATION" Home Medications: Ambulatory Orders Amlodipine Besylate 5 mg PO DAILY 11/06/17 Divalproex Sodium [Depakote] 500 mg PO BID 11/06/17 Famotidine 20 mg PO BID 11/06/17 Lisinopril [Prinivil] 5 mg PO DAILY #30 tablet 11/07/17 Anemia: Yes Asthma: No Cancer: No Cardiac Disorders: Yes (Chest pain) 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, baseline confusion and dizziness) COPD: Yes CHF: No DVT: No Dementia: No Diabetes: Yes GI Disorders: Yes (gerd, gastric ulcer, dysphagia) Disorders: Yes (kidney stone in the past) HTN: Yes Hypercholesterolemia: Yes Liver Disease: No Psychiatric Problems: Yes (ANXIETY DEPRESSION) Seizures: Yes (S/P craniotomy for benign tumor - on Depakote for seizure prophylaxis) Thyroid Disease: No - Surgical History Abdominal Surgery: Yes Appendectomy: No Cardiac Surgery: No Cholecystectomy: Yes Lung Surgery: No Neurologic Surgery: Yes (removal left meningioma, craniotomy) Orthopedic Surgery: Yes (bilat knee replacement) - Immunization History Td Vaccination: Yes TDAP Vaccination: No Immunization Up to Date: Yes - Suicide/Smoking/Psychosocial Hx Smoking Status: No Smoking History: Never smoked Have you smoked in the past 12 months: No Number of Cigarettes Smoked Daily: 0 Cigars Per Day: 0 Hx Alcohol Use: No Drug/Substance Use Hx: No Substance Use Type: None Hx Substance Use Treatment: No *Physical Exam - Vital Signs Last Vital Signs Temp Pulse Resp BP Pulse Ox 98.3 F 62 18 143/59 L 96 01/30/18 18:28 [id number] 18:28 1218 18:28 12 18:28 01/30/18 18:28 - Physical Exam General Appearance: Yes: Appropriately Dressed Respiratory/Chest: positive: Chest Tender (left sided chest tenderness), Lungs Clear, Normal Breath Sounds Cardiovascular: positive: Regular Rhythm, Regular Rate Gastrointestinal/Abdominal: positive: Normal Bowel Sounds, Soft. negative: Tender Musculoskeletal: positive: Normal Inspection Extremity: positive: Normal Capillary Refill, Normal Inspection, Normal Range of Motion Integumentary: positive: Normal Color, Dry, Warm Neurologic: positive: Fully Oriented, Alert, Normal Mood/Affect Moderate Sedation - Procedure Monitoring Vital Signs: Procedure Monitoring Vital Signs Temperature 98.3 F 01/30/18 18:28 Pulse Rate 62 01/30/18 18:28 Respiratory Rate 18 01/30/18 18:28 Blood Pressure 143/59 L 01/30/18 18:28 O2 Sat by Pulse Oximetry (%) 96 01/30/18 18:28 Medical Decision Making - Medical Decision Making 01/30/18 19:57 currently receiving saline neb. ACS work up negative with negative chest xray < 24 hours done in this ED. will d.c home . patient with multiple visits to the ED *DC/Admit/Observation/Transfer Diagnosis at time of Disposition: Chest pain Qualifiers: Chest pain type: unspecified Qualified Code(s): R07.9 - Chest pain, unspecified - Discharge Dispostion Disposition: HOME Condition at time of disposition: Stable - Referrals Referrals: Waldo Mabry MD [Primary Care Provider] - - Patient Instructions Printed Discharge Instructions: DI for Atypical Chest Pain Additional Instructions: please follow up with your runner man. Additional Instructions: * Please call your personal physician to report your Emergency Department visit and to report your progress, if any. * If there is no improvement in symptoms in 2 days call your physician. * Return to the Emergency Department for any worsening symptoms. - Post Discharge Activity
[2018-01-30] MEDS ORDERED: ACETAMINOPHEN 325 MG TABLET (FP) PO ONE (19:24)
[2018-01-30] MEDS ORDERED: ACETAMINOPHEN 325 MG TABLET (FP) ONE (19:27)
[2018-01-30] MEDS ORDERED: SODIUM CHLORIDE FOR INHALATION 3 ML VIAL.NEB IH ONE (19:46)
[2018-01-30 20:14] VITALS: BP 128/99; PULSE 81; TEMP 98.5
--- NOTE | 2018-01-31 09:42 | EKG ---
Test Reason : Blood Pressure : / mmHG Vent. Rate : 090 BPM Atrial Rate : 090 BPM P-R Int : 154 ms QRS Dur : 072 ms QT Int : 346 ms P-R-T Axes : 052 019 056 degrees QTc Int : 423 ms NORMAL SINUS RHYTHM NORMAL ECG WHEN COMPARED WITH ECG OF 29-JAN-2018 17:37, NO SIGNIFICANT CHANGE WAS FOUND Confirmed by ANNITA VENTURA MD ([id number]) on 01/31/2018 9:41:49 AM Referred By: Confirmed By:ANNITA VENTURA MD
== END 2018-01-30 21:15 | disposition home or self-care (01) ==
LOC: JER 18:18
DX: R07.9 Chest pain, unspecified (principal); Z96.653 Presence of artificial knee joint, bilateral; F41.8 Other specified anxiety disorders; E78.00 Pure hypercholesterolemia, unspecified; I10 Essential (primary) hypertension; J44.9 Chronic obstructive pulmonary disease, unspecified; I69.898 Other sequelae of other cerebrovascular disease
CPT/HCPCS: 93005; 93010; 99283-25

== ENCOUNTER 2018-01-31 15:18 | Emergency (ER) | payer OTHER ==
[2018-01-31] MEDS ORDERED: ACETAMINOPHEN 325 MG TABLET (FP) PO ONE (15:23)
--- NOTE | 2018-01-31 15:23 | PDOC ---
Rapid Medical Evaluation Chief Complaint: Pain Medical Evaluation: Allergies Allergy/AdvReac Type Severity Reaction Status Date / Time aspirin Allergy Severe "NERVOUS" Verified 01/30/18 19:52 morphine Allergy Severe "ANXIETY-DE Verified 01/30/18 19:52 SPERATION" I have performed a brief in-person evaluation of this patient. The patient presents with a chief complaint of: C/O L breast pain and GALLARDO; multiple visits to ED for similar complaint Pertinent physical exam findings: In NAD, lungs CTA B/L, cardiac RRR I have ordered the following: EKG The patient will proceed to the ED for further evaluation. 01/31/18 15:22 Discharge Disposition - Referrals Referrals: Waldo Mabry MD [Primary Care Provider] - - Patient Instructions - Post Discharge Activity
[2018-01-31 15:24] VITALS: BP 151/59; PULSE 91; TEMP 98.1; BMI 35.5
[2018-01-31] MEDS ORDERED: ACETAMINOPHEN 325 MG TABLET (FP) ONE (15:43)
--- NOTE | 2018-01-31 15:53 | PDOC ---
History of Present Illness - General Chief Complaint: Pain Stated Complaint: BREAST PAIN Time Seen by Provider: 01/31/18 15:46 History Source: Patient Exam Limitations: No Limitations - History of Present Illness Initial Comments: 01/31/18 15:47 72 yr female frequent visits to ER for same c/o left breast pain since last night. Pt has had same symptoms of pain in the past. last breast US 09/30 negative. Pt denies fever chills or vomiting. Pt denies any trauma to the breast. Past History - Past Medical History Allergies/Adverse Reactions: Allergies Allergy/AdvReac Type Severity Reaction Status Date / Time aspirin Allergy Severe "NERVOUS" Verified 01/31/18 15:24 morphine Allergy Severe "ANXIETY-DE Verified 01/31/18 15:24 SPERATION" Home Medications: Ambulatory Orders Amlodipine Besylate 5 mg PO DAILY 11/06/17 Divalproex Sodium [Depakote] 500 mg PO BID 11/06/17 Famotidine 20 mg PO BID 11/06/17 Lisinopril [Prinivil] 5 mg PO DAILY #30 tablet 11/07/17 Mupirocin Ointment [Bactroban] 1 applic TP TID #1 tube 01/31/18 Anemia: Yes Asthma: No Cancer: No Cardiac Disorders: Yes (Chest pain) 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, baseline confusion and dizziness) COPD: Yes CHF: No DVT: No Dementia: No Diabetes: Yes GI Disorders: Yes (gerd, gastric ulcer, dysphagia) Disorders: Yes (kidney stone in the past) HTN: Yes Hypercholesterolemia: Yes Liver Disease: No Psychiatric Problems: Yes (ANXIETY DEPRESSION) Seizures: Yes (S/P craniotomy for benign tumor - on Depakote for seizure prophylaxis) Thyroid Disease: No - Surgical History Abdominal Surgery: Yes Appendectomy: No Cardiac Surgery: No Cholecystectomy: Yes Lung Surgery: No Neurologic Surgery: Yes (removal left meningioma, craniotomy) Orthopedic Surgery: Yes (bilat knee replacement) - Immunization History Td Vaccination: Yes TDAP Vaccination: No Immunization Up to Date: Yes - Suicide/Smoking/Psychosocial Hx Smoking Status: No Smoking History: Never smoked Have you smoked in the past 12 months: No Number of Cigarettes Smoked Daily: 0 Cigars Per Day: 0 Information on smoking cessation initiated: No Hx Alcohol Use: No Drug/Substance Use Hx: No Substance Use Type: None Hx Substance Use Treatment: No Review of Systems - Review of Systems Able to Perform ROS?: Yes Is the patient limited Polish proficient: Yes Constitutional: No: Symptoms Reported HEENTM: No: Symptoms Reported Respiratory: No: Symptoms reported Cardiac (ROS): No: Symptoms Reported ABD/GI: No: Symptoms Reported : No: Symptoms Reported Musculoskeletal: No: Symptoms Reported Integumentary: Yes: Symptoms Reported, Other (left breast pain) *Physical Exam - Vital Signs Last Vital Signs Temp Pulse Resp BP Pulse Ox 98.1 F 91 H 18 151/59 L 100 01/31/18 15:21 01/31/18 15:21 01/31/18 15:21 01/31/18 15:21 01/31/18 15:21 - Physical Exam General Appearance: Yes: Nourished, Appropriately Dressed HEENT: positive: EOMI, KARL Neck: positive: Supple. negative: Tender Respiratory/Chest: positive: Lungs Clear, Normal Breath Sounds. negative: Chest Tender Cardiovascular: positive: Regular Rhythm, Regular Rate Integumentary: positive: Normal Color, Dry, Warm, Other (left breast with superficial abrasion , no redness no streaking , TTP the breast tissue no masses or lumps ) Neurologic: positive: stitcher special machine II-XII NML intact, Normal Response Moderate Sedation - Procedure Monitoring Vital Signs: Procedure Monitoring Vital Signs Temperature 98.1 F 01/31/18 15:21 Pulse Rate 91 H 01/31/18 15:21 Respiratory Rate 18 01/31/18 15:21 Blood Pressure 151/59 L 01/31/18 15:21 O2 Sat by Pulse Oximetry (%) 100 01/31/18 15:21 Heart Score/ECG Review - ECG Impressions Normal ECG: Yes Non-specific ST Elevation: No Ischemic Changes: No ED Treatment Course - Medications Given in the ED: ED Medications Discontinued Medications Generic Name Dose Route Start Last Admin Trade Name Freq PRN Reason Stop Dose Admin Acetaminophen 650 mg 01/31/18 15:23 01/31/18 15:45 Tylenol - PO 01/31/18 15:24 650 mg ONCE ONE Administration Medical Decision Making - Medical Decision Making 01/31/18 15:49 left breast pain since last night pt has a lidocaine patch on the right breast, states the right breast was tender yesterday neg fever or chills left breast has no palpable masses or lumps, there is a superficial abrasion at 3 o'clock no streaking no redness no lymphadenopathy will prescribe bactroban to place on abrasion 3 times a day for 3 days follow up with PMD Monday Return to ER if worse pt understands the inst given via tajik translation *DC/Admit/Observation/Transfer Diagnosis at time of Disposition: Abrasion - Discharge Dispostion Disposition: HOME Condition at time of disposition: Good - Prescriptions Prescriptions: Mupirocin Ointment [Bactroban] 1 applic TP TID #1 tube - Referrals Referrals: Waldo Mabry MD [Primary Care Provider] - - Patient Instructions Additional Instructions: apply the ointment three times a day for 3 days to the affected area follow with your doctor MONDAY return to ER for any fever, chills, redness to the breast or any other concerns aplique el ungento jeremias veces al da harshad 3 lucio al hood afectada sigue con tu doctor el viernes vuelva a la [facility] de emergencias si tiene fiebre, escalofros, enrojecimiento en el pecho o cualquier otra inquietud - Post Discharge Activity
--- NOTE | 2018-02-01 12:05 | EKG ---
Test Reason : Blood Pressure : / mmHG Vent. Rate : 084 BPM Atrial Rate : 084 BPM P-R Int : 152 ms QRS Dur : 070 ms QT Int : 364 ms P-R-T Axes : 046 011 035 degrees QTc Int : 430 ms NORMAL SINUS RHYTHM NORMAL ECG WHEN COMPARED WITH ECG OF 30-JAN-2018 18:38, NO SIGNIFICANT CHANGE WAS FOUND Confirmed by TERENCE GARCIA MD ([id number]) on 02/01/2018 12:04:44 PM Referred By: Confirmed By:TERENCE GARCIA MD
== END 2018-01-31 16:12 | disposition home or self-care (01) ==
LOC: JERFT 15:18
DX: Z96.653 Presence of artificial knee joint, bilateral (principal); J44.9 Chronic obstructive pulmonary disease, unspecified; I10 Essential (primary) hypertension; F41.8 Other specified anxiety disorders; E78.00 Pure hypercholesterolemia, unspecified; I69.998 Other sequelae following unspecified cerebrovascular disease
CPT/HCPCS: 93005; 93010; 99281-25

== ENCOUNTER 2018-02-01 17:45 | Emergency (ER) | payer OTHER ==
[2018-02-01] MEDS ORDERED: ACETAMINOPHEN 325 MG TABLET (FP) PO ONE (17:56)
--- NOTE | 2018-02-01 17:56 | PDOC ---
Rapid Medical Evaluation Medical Evaluation: Allergies Allergy/AdvReac Type Severity Reaction Status Date / Time aspirin Allergy Severe "NERVOUS" Verified 01/31/18 15:24 morphine Allergy Severe "ANXIETY-DE Verified 01/31/18 15:24 SPERATION" I have performed a brief in-person evaluation of this patient. The patient presents with a chief complaint of: C/O L breast pain x 2 days; patient with multiple visits in ED for same I have ordered the following: Tylenol, EKG The patient will proceed to the ED for further evaluation. 02/01/18 17:54
[2018-02-01 17:59] VITALS: BMI 33.4
[2018-02-01] MEDS ORDERED: ACETAMINOPHEN 325 MG TABLET (FP) ONE (18:11)
--- NOTE | 2018-02-01 21:49 | PDOC ---
History of Present Illness - General Chief Complaint: Chest Pain Stated Complaint: CHEST PAIN Time Seen by Provider: 02/01/18 21:20 History Source: Patient, Old Records Exam Limitations: No Limitations - History of Present Illness Initial Comments: 02/01/18 21:43 HISTORY OF PRESENT ILLNESS: This is a 72-year-old woman is well-known to this ER presents emergency department for evaluation of left-sided chest pain and headache. Patient with multiple visits for the same complaint. She denies shortness of breath, dizziness, abdominal pain, nausea, vomiting, diaphoresis. SpO2 notable for 94% on room air. No recent travel or sick contacts. PAST MEDICAL HISTORY: Denies past medical history SURGICAL HISTORY: Denies ALLERGIES: No known drug allergies REVIEW OF SYSTEMS General/Constitutional: Denies fever or chills. Denies weakness, weight change. HEENT: Denies change in vision. Denies ear pain or discharge. Denies sore throat. Cardiovascular: Left sided chest pain. Denies shortness of breath. Respiratory: Denies cough, wheezing, or hemoptysis. Gastrointestinal: Denies nausea, vomiting, diarrhea or constipation. Denies rectal bleeding. Genitourinary: Denies dysuria, frequency, or change in urination. Musculoskeletal: Denies joint or muscle swelling or pain. Denies neck or back pain. Skin and breasts: Denies rash or easy bruising. Neurologic: Frontal headache. Denies vertigo, loss of consciousness, or loss of sensation. Psychiatric: Denies depression or anxiety. Endocrine: Denies increased thirst. Denies abnormal weight change. Hematologic/Lymphatic: Denies anemia, easy bleeding, or history of blood clots. Allergic/Immunologic: Denies hives or skin allergy. Denies latex allergy. PHYSICAL EXAM General Appearance: Well-appearing, appropriately dressed. No apparent distress , no intoxication. HEENT: EOMI, PERRLA, normal ENT inspection, normal voice, TMs normal, pharynx normal. No conjunctival pallor. No photophobia, scleral icterus. Neck: Supple. Trachea midline. No tenderness, rigidity, carotid bruit, stridor , lymphadenopathy, or thyromegaly. Respiratory/Chest: Lungs CTAB. No shortness of breath, respiratory distress, accessory muscle use. No crackles, rales, rhonchi, stridor, wheezing, dullness. Left chest tenderness to light palpation. Cardiovascular: RRR. S1, S2. No JVD, murmur, bradycardia, tachycardia. Vascular Pulses: Dorsalis-Pedis (R): 2+, Dorsalis-Pedis (L): 2+ Gastrointestinal/Abdominal: Normal bowel sounds. Abdomen soft, non-distended. No tenderness or rebound tenderness. No organomegaly, pulsatile mass, guarding, hernia, hepatomegaly, splenomegaly. Lymphatic: No adenopathy, tenderness. Musculoskeletal/Extremities: Normal inspection. FROM of all extremities, normal capillary refill. Pelvis Stable. No CVA tenderness. No tenderness to extremities, pedal edema, swelling, erythema or deformity. Integumentary: Appropriate color, dry, warm. No cyanosis, erythema, jaundice or rash Neurologic: hematologist oncologist II-XII intact. Fully oriented, alert. Appropriate mood/affect. Motor strength 5/5. No appreciable EOM palsy, facial droop or sensory deficit. Past History - Past Medical History Allergies/Adverse Reactions: Allergies Allergy/AdvReac Type Severity Reaction Status Date / Time aspirin Allergy Severe "NERVOUS" Verified 01/31/18 15:24 morphine Allergy Severe "ANXIETY-DE Verified 01/31/18 15:24 SPERATION" Home Medications: Ambulatory Orders Amlodipine Besylate 5 mg PO DAILY 11/06/17 Divalproex Sodium [Depakote] 500 mg PO BID 11/06/17 Famotidine 20 mg PO BID 11/06/17 Lisinopril [Prinivil] 5 mg PO DAILY #30 tablet 11/07/17 Mupirocin Ointment [Bactroban] 1 applic TP TID #1 tube 01/31/18 Anemia: Yes Asthma: No Cancer: No Cardiac Disorders: Yes (Chest pain) 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, baseline confusion and dizziness) COPD: Yes CHF: No DVT: No Dementia: No Diabetes: Yes GI Disorders: Yes (gerd, gastric ulcer, dysphagia) Disorders: Yes (kidney stone in the past) HTN: Yes Hypercholesterolemia: Yes Liver Disease: No Psychiatric Problems: Yes (ANXIETY DEPRESSION) Seizures: Yes (S/P craniotomy for benign tumor - on Depakote for seizure prophylaxis) Thyroid Disease: No - Surgical History Abdominal Surgery: Yes Appendectomy: No Cardiac Surgery: No Cholecystectomy: Yes Lung Surgery: No Neurologic Surgery: Yes (removal left meningioma, craniotomy) Orthopedic Surgery: Yes (bilat knee replacement) - Immunization History Td Vaccination: Yes TDAP Vaccination: No Immunization Up to Date: Yes - Suicide/Smoking/Psychosocial Hx Smoking Status: No Smoking History: Never smoked Have you smoked in the past 12 months: No Number of Cigarettes Smoked Daily: 0 Cigars Per Day: 0 Information on smoking cessation initiated: No Hx Alcohol Use: No Drug/Substance Use Hx: No Substance Use Type: None Hx Substance Use Treatment: No *Physical Exam - Vital Signs Last Vital Signs Temp Pulse Resp BP Pulse Ox 98.5 F 92 H 20 129/60 94 L 02/01/18 17:56 02/01/18 17:56 02/01/18 17:56 02/01/18 17:56 02/01/18 17:56 Moderate Sedation - Procedure Monitoring Vital Signs: Procedure Monitoring Vital Signs Temperature 98.5 F 02/01/18 17:56 Pulse Rate 92 H 02/01/18 17:56 Respiratory Rate 20 02/01/18 17:56 Blood Pressure 129/60 02/01/18 17:56 O2 Sat by Pulse Oximetry (%) 94 L 02/01/18 17:56 ED Treatment Course - LABORATORY CBC & Chemistry Diagram: 02/01/18 22:05 02/01/18 22:54 - Medications Given in the ED: ED Medications Discontinued Medications Generic Name Dose Route Start Last Admin Trade Name Chance PRN Reason Stop Dose Admin Acetaminophen 650 mg 02/01/18 17:56 02/01/18 18:12 Tylenol - PO 02/01/18 17:57 650 mg ONCE ONE Administration Medical Decision Making - Medical Decision Making 02/01/18 21:47 A/P: 72-year-old woman with left-sided chest pain and frontal headache consistent with her usual complaints Left chest tenderness to light palpation. Lungs clear to auscultation bilaterally RRR. S1 and S2 present. No murmur, rub or gallop noted. Abdomen soft nontender nondistended All patient is present with her usual complaints usually does not have low SpO2. Therefore I will perform a cardiac workup including labs, urine, chest x- ray, EKG and then reassess. 02/02/18 01:02 Chest x-rays read by me: Angles clear. Cardiac silhouette is within normal limits. No focal infiltrates or consolidations present. Patient states she is feeling better is requesting discharge at this time. Laboratory testing is unremarkable. SpO2 99% on room air after walking. I will discharge the patient home to follow-up with her primary doctor as needed. I discussed the physical exam findings, ancillary test results and final diagnoses with the patient. I answered all of the patient's questions. The patient was satisfied with the care received and felt comfortable with the discharge plan and treatment plan. The patient will call their primary care physician within 24 hours to arrange follow-up and will return to the Emergency Department with any new, persistent or worsening symptoms. *DC/Admit/Observation/Transfer Diagnosis at time of Disposition: Atypical chest pain, Headache above the eye region - Discharge Dispostion Disposition: HOME Condition at time of disposition: Fair Decision to Admit order: No - Referrals Referrals: aWldo Mabry MD [Primary Care Provider] - - Patient Instructions Additional Instructions: Make an appointment with her primary doctor for reevaluation. Return to emergency department for any concerns. - Post Discharge Activity
[2018-02-01 22:24] LABS: BASO % 0.7 % (0-2.0); EOS % 3.4 % (0-4.5); HEMATOCRIT 29.6 % (32.4-45.2); HEMOGLOBIN 9.6 GM/dL (10.7-15.3); LYMPH % 22.4 % (8-40); MCH 24.1 pg (25.7-33.7); MCHC 32.4 g/dl (32.0-36.0); MEAN CELL VOLUME 74.6 fl (80-96); MEAN PLT VOLUME 7.6 fl (7.5-11.1); MONO % 15.8 % (3.8-10.2); NEUT % 57.7 % (42.8-82.8); PLATELET COUNT 363 K/MM3 (134-434); RBC 3.96 M/mm3 (3.60-5.2); RDW 18.1 % (11.6-15.6); WHITE BLOOD COUNT 5.1 K/mm3 (4.0-10.0)
[2018-02-02 00:43] LABS: ALBUMIN 3.2 g/dl (3.4-5.0); ALK PHOS 164 U/L (45-117); ANION GAP 8 MMOL/L (8-16); BILIRUBIN,TOTAL 0.2 mg/dL (0.2-1); BLOOD UREA NITROGEN 14 mg/dL (7-18); CALCIUM 8.5 mg/dL (8.5-10.1); CHLORIDE 100 mmol/L (98-107); CO2 27 mmol/L (21-32); CREATININE 0.6 mg/dL (0.55-1.3); GLUCOSE,RANDOM 104 mg/dL (74-106); MAGNESIUM 2.3 mg/dL (1.8-2.4); N-TERMINAL BNP 150.5 pg/ml (5-125); PHOSPHOROUS 4.6 mg/dL (2.5-4.9); POTASSIUM 4.9 mmol/L (3.5-5.1); SGOT/AST 18 U/L (15-37); SGPT/ALT 20 U/L (13-61); SODIUM 135 mmol/L (136-145)
[2018-02-02 00:58] VITALS: BP 154/76; PULSE 93
[2018-02-02 01:04] VITALS: TEMP 97.7
--- NOTE | 2018-02-02 11:27 | EKG ---
Test Reason : Blood Pressure : / mmHG Vent. Rate : 087 BPM Atrial Rate : 087 BPM P-R Int : 154 ms QRS Dur : 080 ms QT Int : 366 ms P-R-T Axes : 046 006 031 degrees QTc Int : 440 ms NORMAL SINUS RHYTHM NORMAL ECG WHEN COMPARED WITH ECG OF 31-JAN-2018 15:26, NO SIGNIFICANT CHANGE WAS FOUND Confirmed by ANNITA VENTURA MD ([id number]) on 02/02/2018 11:27:13 AM Referred By: Confirmed By:ANNITA VENTURA MD
== END 2018-02-02 01:16 | disposition home or self-care (01) ==
LOC: JER 17:45
DX: R07.89 Other chest pain (principal); D64.9 Anemia, unspecified; J44.9 Chronic obstructive pulmonary disease, unspecified; I10 Essential (primary) hypertension; E78.00 Pure hypercholesterolemia, unspecified; E11.9 Type 2 diabetes mellitus without complications; F41.8 Other specified anxiety disorders; I69.810 Attention and concentration deficit following other cerebrovascular disease; I69.893 Ataxia following other cerebrovascular disease; Z96.653 Presence of artificial knee joint, bilateral; Z87.19 Personal history of other diseases of the digestive system
CPT/HCPCS: 36415; 71046-TC-FY; 80053; 83735; 83880; 84100; 84484; 85025; 93005; 93010; 99284-25

== ENCOUNTER 2018-02-02 12:51 | Emergency (ER) | payer OTHER ==
[2018-02-02 12:55] VITALS: BP 152/79; PULSE 80; TEMP 98.3; BMI 37.8
--- NOTE | 2018-02-02 14:45 | PDOC ---
History of Present Illness - General Chief Complaint: Chest Pain Stated Complaint: Chest Pain Time Seen by Provider: 02/02/18 14:43 History Source: Patient Exam Limitations: No Limitations (pt poor historian, bilingual manager used) Past History - Past Medical History Allergies/Adverse Reactions: Allergies Allergy/AdvReac Type Severity Reaction Status Date / Time aspirin Allergy Severe "NERVOUS" Verified 02/02/18 12:55 morphine Allergy Severe "ANXIETY-DE Verified 02/02/18 12:55 SPERATION" Home Medications: Ambulatory Orders Amlodipine Besylate 5 mg PO DAILY 11/06/17 Divalproex Sodium [Depakote] 500 mg PO BID 11/06/17 Famotidine 20 mg PO BID 11/06/17 Lisinopril [Prinivil] 5 mg PO DAILY #30 tablet 11/07/17 Mupirocin Ointment [Bactroban] 1 applic TP TID #1 tube 01/31/18 Anemia: Yes Asthma: No Cancer: No Cardiac Disorders: Yes (Chest pain) 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, baseline confusion and dizziness) COPD: Yes CHF: No DVT: No Dementia: No Diabetes: Yes GI Disorders: Yes (gerd, gastric ulcer, dysphagia) Disorders: Yes (kidney stone in the past) HTN: Yes Hypercholesterolemia: Yes Liver Disease: No Psychiatric Problems: Yes (ANXIETY DEPRESSION) Seizures: Yes (S/P craniotomy for benign tumor - on Depakote for seizure prophylaxis) Thyroid Disease: No - Surgical History Abdominal Surgery: Yes Appendectomy: No Cardiac Surgery: No Cholecystectomy: Yes Lung Surgery: No Neurologic Surgery: Yes (removal left meningioma, craniotomy) Orthopedic Surgery: Yes (bilat knee replacement) - Immunization History Td Vaccination: Yes TDAP Vaccination: No Immunization Up to Date: Yes - Suicide/Smoking/Psychosocial Hx Smoking Status: No Smoking History: Never smoked Have you smoked in the past 12 months: No Number of Cigarettes Smoked Daily: 0 Cigars Per Day: 0 Information on smoking cessation initiated: No Hx Alcohol Use: No Drug/Substance Use Hx: No Substance Use Type: None Hx Substance Use Treatment: No *Physical Exam - Vital Signs Last Vital Signs Temp Pulse Resp BP Pulse Ox 98.3 F 80 20 152/79 98 02/02/18 12:53 02/02/18 12:53 02/02/18 12:53 02/02/18 12:53 02/02/18 12:53 Moderate Sedation - Procedure Monitoring Vital Signs: Procedure Monitoring Vital Signs Temperature 98.3 F 02/02/18 12:53 Pulse Rate 80 02/02/18 12:53 Respiratory Rate 20 02/02/18 12:53 Blood Pressure 152/79 02/02/18 12:53 O2 Sat by Pulse Oximetry (%) 98 02/02/18 12:53 ED Treatment Course - LABORATORY CBC & Chemistry Diagram: 02/02/18 16:10 02/02/18 16:10 Medical Decision Making - Medical Decision Making Pt was seen at bedside, also will be seen by attending Dr. Stone. Pt presenting with complaints of L-sided chest pain and frontal headache. Pt is well-known to the department and had a work-up completed last night, which was negative for cardiac and pulmonary processes (negative chest x-ray, negative troponin, blood work WNL for pt). Pt states the pain started again last night after she left the ER. The chest pain is pressure like, does not radiate, and is not associated with nausea or vomiting. PE showed mild wheezing over L anterior chest wall. Focal tenderness to palpation over L chest wall/L breast (has been present on prior examinations done by me). No abdominal tenderness. Considering anxiety vs musculoskeletal pain vs URI. Negative chest x-ray yesterday and negative troponin. Minimal suspicion for URI/pneumonia and ACS. Ordered work-up including CBC, CMP, ECG, and troponin. Provided 650 mg PO tylenol and duoneb treatment for improvement of wheezing and pain. Will continue to reassess pt and monitor for symptomatic improvement. 02/02/18 14:45 CBC and CMP WNL, troponin <.02. Pt states she feels better and ready to go home. Considering normal lab results and normal imaging last night, pt can be discharged to home with follow-up. Pt advised to follow-up with PCP in 1-2 days. Also spoke with social science teacher who states the team is working on getting her outpatient treatment visits, but the pt refuses to go to them. Strict return precautions provided with pt understanding. 02/02/18 17:14 *DC/Admit/Observation/Transfer Diagnosis at time of Disposition: Atypical chest pain - Discharge Dispostion Disposition: HOME Condition at time of disposition: Improved Decision to Admit order: No - Referrals Referrals: Waldo Mabry MD [Primary Care Provider] - - Patient Instructions Printed Discharge Instructions: DI for Atypical Chest Pain Additional Instructions: You were seen in the ER today for chest pain and headache. The results of your labs today were normal. Please follow-up with your primary care doctor within 1- 2 days to discuss your visit and make sure your symptoms have improved. Please return to the ER if you have any worsening pain, development of fevers or chills , worsening shortness of breath, loss of consciousness, inability to tolerate food or fluids, or any other concerns. - Post Discharge Activity
--- NOTE | 2018-02-02 14:55 | PDOC ---
Attending Attestation - HPI HPI: 02/02/18 17:00 The patient is a 72 year old female, with a significant PMH of HTN, HLD, DM, COPD, CVA, seizures, GERD, chronic L breast pain, and intracranial meningioma s/ p resection who presents to the emergency department with chest pain that began today. The patient states chest constant pain is located to the left anterior chest wall, non radiating in nature. She states chest pain is accompanied with a mild headache. The patient denies shortness of breath and dizziness. Denies fever, chills, nausea, vomit, diarrhea and constipation.Denies dysuria, frequency, urgency and hematuria. Allergies: Aspirin, morphine Past surgical history: removal left meningioma, craniotomy, bilateral knee replacement Social history: None reported PCP: Waldo Mabry Documentation prepared by Rodrigue Solis, acting as durable medical equipment technician for Julieth Stone MD. - Physicial Exam PE: 02/02/18 17:00 GENERAL: The patient is in no acute distress. HEAD: Normal with no signs of trauma. EYES: PERRLA, EOMI, sclera anicteric, conjunctiva clear. ENT: Ears normal, nares patent, oropharynx clear without exudates. Moist mucous membranes. NECK: Normal range of motion, supple without lymphadenopathy, JVD, or masses. LUNGS: Breath sounds equal, clear to auscultation bilaterally. No wheezes, and no crackles. HEART:Regular rate and rhythm, normal S1 and S2 without murmur, rub or gallop. ABDOMEN: Soft, nontender, normoactive bowel sounds. No guarding, no rebound. No masses palpable. EXTREMITIES: Normal range of motion, no edema. No clubbing or cyanosis. No erythema, or tenderness. NEUROLOGICAL: Cranial nerves II through XII grossly intact. Normal speech. No focal neurological deficits. MUSCULOSKELETAL: Back non-tender to palpation, no CVA tenderness SKIN: Warm, Dry, normal turgor, no rashes or lesions noted. <Rodrigue Solis - Last Filed: 02/02/18 17:00> - Resident Resident Name: Annette Haynes - ED Attending Attestation I have performed the following: I have examined & evaluated the patient, The case was reviewed & discussed with the resident, I agree w/resident's findings & plan, Exceptions are as noted - Medical Decision Making Ms Sumner returns to the ER with a complaint of chest pain, headache 02/02/18 17:14 Laboratory Tests 02/01/18 02/01/18 02/02/18 22:05 22:05 16:10 WBC 5.1 4.8 Hgb 9.7 L Hct 29.6 L 30.3 L Plt Count 363 377 BUN Cancelled Creatinine Cancelled Alkaline Phosphatase Troponin I 02/02/18 16:10 WBC Hgb Hct Plt Count BUN 12 Creatinine 0.6 Alkaline Phosphatase 168 H Troponin I < 0.02 EKG - Twelve-lead EKG was performed and reviewed by me. There is normal sinus rhythm with a normal rate. The axis is normal. The intervals are normal. There are no ST or T wave abnormalities. Impression: Normal twelve-lead EKG 02/05/18 20:48 Given tylenol for pain Will discharge to home Follow up with PMD <Julieth Stone - Last Filed: 02/05/18 20:56>
[2018-02-02] MEDS ORDERED: ACETAMINOPHEN 325 MG TABLET (FP) PO ONE (15:09)
[2018-02-02] MEDS ORDERED: ALBUTEROL SO4 2.5/IPRATROPIUM 0.5 INH SOL 3 ML VIAL.NEB. NEB ONE ×2 (15:10→15:58)
[2018-02-02] MEDS ORDERED: ACETAMINOPHEN 325 MG TABLET (FP) ONE (15:59)
[2018-02-02 16:36] LABS: BASO % 0.5 % (0-2.0); EOS % 3.2 % (0-4.5); HEMATOCRIT 30.3 % (32.4-45.2); HEMOGLOBIN 9.7 GM/dL (10.7-15.3); LYMPH % 18.2 % (8-40); MCH 23.6 pg (25.7-33.7); MEAN CELL VOLUME 73.8 fl (80-96); MEAN PLT VOLUME 7.4 fl (7.5-11.1); MONO % 12.6 % (3.8-10.2); NEUT % 65.5 % (42.8-82.8); PLATELET COUNT 377 K/MM3 (134-434); RBC 4.11 M/mm3 (3.60-5.2); RDW 18.1 % (11.6-15.6); WHITE BLOOD COUNT 4.8 K/mm3 (4.0-10.0)
[2018-02-02 17:06] LABS: ALBUMIN 3.4 g/dl (3.4-5.0); ALK PHOS 168 U/L (45-117); ANION GAP 7 MMOL/L (8-16); BILIRUBIN,TOTAL 0.3 mg/dL (0.2-1); BLOOD UREA NITROGEN 12 mg/dL (7-18); CALCIUM 8.4 mg/dL (8.5-10.1); CHLORIDE 100 mmol/L (98-107); CO2 26 mmol/L (21-32); CREATININE 0.6 mg/dL (0.55-1.3); GLUCOSE,RANDOM 126 mg/dL (74-106); POTASSIUM 4.6 mmol/L (3.5-5.1); SGOT/AST 21 U/L (15-37); SGPT/ALT 20 U/L (13-61); SODIUM 133 mmol/L (136-145); TOT PROT 7.2 g/dl (6.4-8.2)
--- NOTE | 2018-02-03 15:49 | EKG ---
Test Reason : Blood Pressure : / mmHG Vent. Rate : 085 BPM Atrial Rate : 085 BPM P-R Int : 150 ms QRS Dur : 076 ms QT Int : 372 ms P-R-T Axes : 044 -02 023 degrees QTc Int : 442 ms NORMAL SINUS RHYTHM NORMAL ECG WHEN COMPARED WITH ECG OF 01-FEB-2018 17:52, NO SIGNIFICANT CHANGE WAS FOUND Confirmed by LJ SETHI MD ([id number]) on 02/03/2018 3:49:24 PM Referred By: Confirmed By:LJ SETHI MD
== END 2018-02-02 17:21 | disposition home or self-care (01) ==
LOC: JER 12:51
DX: R07.89 Other chest pain (principal); D64.9 Anemia, unspecified; J44.9 Chronic obstructive pulmonary disease, unspecified; I10 Essential (primary) hypertension; E11.9 Type 2 diabetes mellitus without complications; E78.00 Pure hypercholesterolemia, unspecified; F41.8 Other specified anxiety disorders; I69.810 Attention and concentration deficit following other cerebrovascular disease; I69.893 Ataxia following other cerebrovascular disease; Z96.653 Presence of artificial knee joint, bilateral; Z86.011 Personal history of benign neoplasm of the brain; Z87.19 Personal history of other diseases of the digestive system
CPT/HCPCS: 36415; 80053; 84484; 85025; 93005; 93010; 99281-25

== ENCOUNTER 2018-02-03 01:11 | Emergency (ER) | payer OTHER ==
[2018-02-03 01:24] VITALS: BP 146/68; PULSE 85; TEMP 98.1; BMI 30.2
[2018-02-03] MEDS ORDERED: ACETAMINOPHEN 325 MG TABLET (FP) ONE (02:36)
[2018-02-03] MEDS ORDERED: ACETAMINOPHEN 325 MG TABLET (FP) PO ONE (02:36)
--- NOTE | 2018-02-03 02:36 | PDOC ---
History of Present Illness - General Chief Complaint: Headache Stated Complaint: HEADACHE Time Seen by Provider: 02/03/18 02:35 History Source: Patient Exam Limitations: No Limitations - History of Present Illness Initial Comments: 02/03/18 02:54 72-year-old female who is well-known to the emergency department with a history of HLD, DM, hypertension, COPD, CVA, seizures, chronic left breast pain, GERD, intracranial meningioma status post resection presents to the emergency department complaining of a frontal 5/10 dull nonradiating intermittent discomfort. Patient states the pain started approximately 2 hours ago and did not take anything to relieve her symptoms. Patient denies fever/chills, nausea/ vomiting, dizziness, lightheadedness, blurry vision, diplopia, visual disturbance, facial pains, earache, sore throat, neck pain/stiffness, back pains , chest pain, shortness of breath, flank pains, abdominal pains, urinary symptoms, extremity numbness or tingling sensation. Past History - Past Medical History Allergies/Adverse Reactions: Allergies Allergy/AdvReac Type Severity Reaction Status Date / Time aspirin Allergy Severe "NERVOUS" Verified 02/02/18 12:55 morphine Allergy Severe "ANXIETY-DE Verified 02/02/18 12:55 SPERATION" Home Medications: Ambulatory Orders Amlodipine Besylate 5 mg PO DAILY 11/06/17 Divalproex Sodium [Depakote] 500 mg PO BID 11/06/17 Famotidine 20 mg PO BID 11/06/17 Lisinopril [Prinivil] 5 mg PO DAILY #30 tablet 11/07/17 Mupirocin Ointment [Bactroban] 1 applic TP TID #1 tube 01/31/18 Anemia: Yes Asthma: No Cancer: No Cardiac Disorders: Yes (Chest pain) 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, baseline confusion and dizziness) COPD: Yes CHF: No DVT: No Dementia: No Diabetes: Yes GI Disorders: Yes (gerd, gastric ulcer, dysphagia) Disorders: Yes (kidney stone in the past) HTN: Yes Hypercholesterolemia: Yes Liver Disease: No Psychiatric Problems: Yes (ANXIETY DEPRESSION) Seizures: Yes (S/P craniotomy for benign tumor - on Depakote for seizure prophylaxis) Thyroid Disease: No - Surgical History Abdominal Surgery: Yes Appendectomy: No Cardiac Surgery: No Cholecystectomy: Yes Lung Surgery: No Neurologic Surgery: Yes (removal left meningioma, craniotomy) Orthopedic Surgery: Yes (bilat knee replacement) - Immunization History Td Vaccination: Yes TDAP Vaccination: No Immunization Up to Date: Yes - Suicide/Smoking/Psychosocial Hx Smoking Status: No Smoking History: Unknown if ever smoked Have you smoked in the past 12 months: No Number of Cigarettes Smoked Daily: 0 Cigars Per Day: 0 Information on smoking cessation initiated: No Hx Alcohol Use: No Drug/Substance Use Hx: No Substance Use Type: None Hx Substance Use Treatment: No Review of Systems - Review of Systems Able to Perform ROS?: Yes Comments:: 02/03/18 02:56 CONSTITUTIONAL: Absent: fever, chills, diaphoresis, generalized weakness, malaise, loss of appetite HEENT: Absent: rhinorrhea, nasal congestion, throat pain, throat swelling, difficulty swallowing, mouth swelling, ear pain, eye pain, visual Changes CARDIOVASCULAR: Absent: chest pain, loss of consciousness, palpitations, irregular heart rate, peripheral edema RESPIRATORY: Absent: cough, shortness of breath, dyspnea with exertion, orthopnea, wheezing, stridor, hemoptysis GASTROINTESTINAL: Absent: abdominal pain, abdominal distension, nausea, vomiting, diarrhea, constipation, melena, hematochezia GENITOURINARY: Absent: dysuria, frequency, urgency, hesitancy, hematuria, flank pain, genital pain MUSCULOSKELETAL: Absent: myalgia, arthralgia, joint swelling SKIN: Absent: rash, itching, pallor HEMATOLOGIC/IMMUNOLOGIC: Absent: easy bleeding, easy bruising, lymphadenopathy, frequent infections ENDOCRINE: Absent: unexplained weight gain, unexplained weight loss, heat intolerance, cold intolerance NEUROLOGIC: +frontal javed Absent: focal weakness or paresthesias, dizziness, unsteady gait, seizure, mental status changes, bladder or bowel incontinence PSYCHIATRIC: Absent: anxiety, depression, suicidal or homicidal ideation, hallucinations. Is the patient limited Tajik proficient: No *Physical Exam - Vital Signs Last Vital Signs Temp Pulse Resp BP Pulse Ox 98.1 F 85 18 146/68 95 02/03/18 01:20 02/03/18 01:20 02/03/18 01:20 02/03/18 01:20 02/03/18 01:20 - Physical Exam Comments: 02/03/18 02:58 GENERAL: Well developed, well nourished. Awake and alert. No acute distress. HEENT: Normocephalic, atraumatic. PERRLA, EOMI. No conjunctival pallor. Sclera are non- icteric. Moist mucous membranes. Oropharynx is clear. NECK: Supple. Full ROM. No JVD. Carotid pulses 2+ and symmetric, without bruits. No thyromegaly. No lymphadenopathy. CARDIOVASCULAR: Regular rate and rhythm. No murmurs, rubs, or gallops. Distal pulses are 2+ and symmetric. PULMONARY: No evidence of respiratory distress. Lungs clear to auscultation bilaterally. No wheezing, rales or rhonchi. ABDOMINAL: Soft. Non-tender. Non-distended. No rebound or guarding. No organomegaly. Normoactive bowel sounds. MUSCULOSKELETAL Normal range of motion at all joints. No bony deformities or tenderness. No CVA tenderness. EXTREMITIES: No cyanosis. No clubbing. No edema. No calf tenderness. SKIN: Warm and dry. Normal capillary refill. No rashes. No jaundice. NEUROLOGICAL: Alert, awake, appropriate. Cranial nerves 2-12 intact. No deficits to light touch and temperature in face, upper extremities and lower extremities. No motor deficits in the in face, upper extremities and lower extremities. Normoreflexic in the upper and lower extremities. Normal speech. Toes are down- going bilaterally. Gait is normal without ataxia. PSYCHIATRIC: Cooperative. Good eye contact. Appropriate mood and affect. Moderate Sedation - Procedure Monitoring Vital Signs: Procedure Monitoring Vital Signs Temperature 98.1 F 02/03/18 01:20 Pulse Rate 85 02/03/18 01:20 Respiratory Rate 18 02/03/18 01:20 Blood Pressure 146/68 02/03/18 01:20 O2 Sat by Pulse Oximetry (%) 95 02/03/18 01:20 *DC/Admit/Observation/Transfer Diagnosis at time of Disposition: Headache Qualifiers: Headache type: other headache syndrome Qualified Code(s): G44.89 - Other headache syndrome - Discharge Dispostion Condition at time of disposition: Stable Decision to Admit order: No - Referrals Referrals: Raoul Bowling MD [Staff Physician] - - Patient Instructions Printed Discharge Instructions: DI for Headache Additional Instructions: Take Tylenol as needed every 6 hours for headaches Follow up with the nurologist listed on the discharge this week Return to the ER for severer/persistent/worsening symptoms, [place] Tylenol segn sea necesario para el dolor. [place] un seguimiento con el neurlogo que figura en perla mildred esta semana. Regrese a la leah de emergencias para los sntomas graves / persistentes o que empeoran. Print Language: PERSIAN - Post Discharge Activity Progress Note - Progress Note Progress Note: 0308hrs: pt states she is pain free from the tylenol given to her in the ER
== END 2018-02-03 05:53 | disposition home or self-care (01) ==
LOC: JER 01:11
DX: G44.89 Other headache syndrome (principal); E78.5 Hyperlipidemia, unspecified; E11.9 Type 2 diabetes mellitus without complications; I10 Essential (primary) hypertension; J44.9 Chronic obstructive pulmonary disease, unspecified; I63.9 Cerebral infarction, unspecified; N64.4 Mastodynia; G89.29 Other chronic pain; D32.0 Benign neoplasm of cerebral meninges
CPT/HCPCS: 99282-25

== ENCOUNTER 2018-02-16 04:04 | Emergency (ER) | payer OTHER ==
--- NOTE | 2018-02-16 04:13 | PDOC ---
History of Present Illness - General Chief Complaint: Headache Stated Complaint: CHEST PAIN,HEADACHE History Source: Patient Exam Limitations: No Limitations - History of Present Illness Initial Comments: 02/16/18 04:19 72 year old female with PMH HTN, DM, HLD, COPD, CVA, seizures, chronic left breast pain, GERD, meningioma s/p resection presented to ED for headache. Pt is well known to the ED, has been seen in the Emergency Department at [facility] 15 times in the last 30 days for complaints of headache and chest pain. Pt reported headache is located to her forehead, slowly progressing , nonradiating, no alleviating or aggravating factors. Pt complained of left sided constant chest pain, unable to describe quality, no aggravating or alleviating factors. Past History - Past Medical History Allergies/Adverse Reactions: Allergies Allergy/AdvReac Type Severity Reaction Status Date / Time aspirin Allergy Severe "NERVOUS" Verified 02/16/18 04:16 morphine Allergy Severe "ANXIETY-DE Verified 02/16/18 04:16 SPERATION" Home Medications: Ambulatory Orders Amlodipine Besylate 5 mg PO DAILY 11/06/17 Divalproex Sodium [Depakote] 500 mg PO BID 11/06/17 Famotidine 20 mg PO BID 11/06/17 Lisinopril [Prinivil] 5 mg PO DAILY #30 tablet 11/07/17 Mupirocin Ointment [Bactroban] 1 applic TP TID #1 tube 01/31/18 Anemia: Yes Asthma: No Cancer: No Cardiac Disorders: Yes (Chest pain) 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, baseline confusion and dizziness) COPD: Yes CHF: No DVT: No Dementia: No Diabetes: Yes GI Disorders: Yes (gerd, gastric ulcer, dysphagia) Disorders: Yes (kidney stone in the past) HTN: Yes Hypercholesterolemia: Yes Liver Disease: No Psychiatric Problems: Yes (ANXIETY DEPRESSION) Seizures: Yes (S/P craniotomy for benign tumor - on Depakote for seizure prophylaxis) Thyroid Disease: No - Surgical History Abdominal Surgery: Yes Appendectomy: No Cardiac Surgery: No Cholecystectomy: Yes Lung Surgery: No Neurologic Surgery: Yes (removal left meningioma, craniotomy) Orthopedic Surgery: Yes (bilat knee replacement) - Immunization History Td Vaccination: Yes TDAP Vaccination: No Immunization Up to Date: Yes - Suicide/Smoking/Psychosocial Hx Smoking Status: No Smoking History: Unknown if ever smoked Have you smoked in the past 12 months: No Number of Cigarettes Smoked Daily: 0 Cigars Per Day: 0 Hx Alcohol Use: No Drug/Substance Use Hx: No Substance Use Type: None Hx Substance Use Treatment: No Review of Systems - Review of Systems Comments:: 02/16/18 04:24 General: denied fever, chills, night sweats, generalized weakness. HEENT: denied sore throat, rhinorrhea, ear pain. Heart: admitted to chest pain. denied palpitations, syncope, lower extremity swelling, diaphoresis. Respiratory: denied shortness of breath, cough, sputum production, hemoptysis. Abdomen: denied abdominal pain, nausea, vomiting, diarrhea, constipation, blood in stool. : denied dysuria, increased urinary frequency, hematuria, urinary incontinence , flank pain. Back: denied back pain. Musculoskeletal: denied joint pain, muscle pain, joint swelling. Neurological: admitted to headache. denied dizziness, numbness, tingling, weakness. Skin: denied rash, laceration, abrasion. *Physical Exam - Physical Exam Comments: 02/16/18 04:26 Constitutional: Well-nourished, Well-developed, appearing stated age. HEENT: head is normocephalic, atraumatic. EOMI. PERRLA. no posterior pharyngeal erythema. no tonsillar swelling. no tonsillar exudates. Neck: supple. Full ROM. Heart: regular rhythm. no murmurs, rubs or gallops. Lungs: clear to auscultation bilaterally. no crackles, rhonchi or wheezing. no stridor. Abdomen: soft, nontender. normal bowel sounds. no rebound, guarding, masses. Extremities: Peripheral pulses intact. No lower extremity edema. Neurological: CN 2-12 grossly intact. Moves all four extremities. Psych: awake, alert, oriented x3. Follows commands. Answers questions appropriately. ED Treatment Course - LABORATORY CBC & Chemistry Diagram: 02/16/18 04:27 02/16/18 04:27 Medical Decision Making - Medical Decision Making 02/16/18 04:26 72 year old female with above PMH presented to ED for chest pain and headache. Initial Vital Signs Temp Pulse Resp BP Pulse Ox 97.7 F 75 19 131/78 97 02/16/18 04:04 02/16/18 04:04 02/16/18 04:04 02/16/18 04:04 02/16/18 04:04 Afebrile. No tachycardia. No tachypnea. Mild hypertension. No hypoxia on room air. Labs ordered: CBC, CMP, cardiac enzymes Imaging ordered: none Medications ordered: tylenol, 1000 cc bolus normal saline EKG performed at 0528: rate 72, regular rhythm, left axis, normal intervals, flat T in III. similar to prior 02/02/18. Pt given food and juice. 02/16/18 05:11 Pt reported dry mouth and sore throat. Pt given water. 02/16/18 06:33 CMP Sodium 129 mmol/L (136-145) L 02/16/18 04:27 Potassium 4.3 mmol/L (3.5-5.1) 02/16/18 04:27 Chloride 95 mmol/L (98-107) L 02/16/18 04:27 Carbon Dioxide 25 mmol/L (21-32) 02/16/18 04:27 Anion Gap 8 MMOL/L (8-16) 02/16/18 04:27 BUN 13 mg/dL (7-18) 02/16/18 04:27 Creatinine 0.6 mg/dL (0.55-1.3) 02/16/18 04:27 Creat Clearance w eGFR > 60 (>60) 02/16/18 04:27 Random Glucose 107 mg/dL (74-106) H 02/16/18 04:27 Calcium 9.0 mg/dL (8.5-10.1) 02/16/18 04:27 Total Bilirubin 0.5 mg/dL (0.2-1) 02/16/18 04:27 AST 30 U/L (15-37) 02/16/18 04:27 ALT 37 U/L (13-61) 02/16/18 04:27 Alkaline Phosphatase 136 U/L (45-117) H 02/16/18 04:27 Total Protein 6.9 g/dl (6.4-8.2) 02/16/18 04:27 Albumin 3.7 g/dl (3.4-5.0) 02/16/18 04:27 Hyponatremia. - Pt is receiving IV fluids - No confusion, no AMS, pt is alert and oriented - Pt has low sodium at baseline 02/16/18 06:55 Pt sleeping comfortably. Arousable to voice. 02/16/18 07:02 CBC WBC 6.6 K/mm3 (4.0-10.0) 02/16/18 04:27 RBC 4.15 M/mm3 (3.60-5.2) 02/16/18 04:27 Hgb 9.6 GM/dL (10.7-15.3) L 02/16/18 04:27 Hct 30.9 % (32.4-45.2) L 02/16/18 04:27 MCV 74.6 fl (80-96) L 02/16/18 04:27 MCH 23.2 pg (25.7-33.7) L 02/16/18 04:27 MCHC 31.1 g/dl (32.0-36.0) L 02/16/18 04:27 RDW 18.0 % (11.6-15.6) H 02/16/18 04:27 Plt Count 325 K/MM3 (134-434) 02/16/18 04:27 MPV 7.0 fl (7.5-11.1) L 02/16/18 04:27 Absolute Neuts (auto) 4.8 K/mm3 (1.5-8.0) 02/16/18 04:27 Neutrophils % 72.2 % (42.8-82.8) 02/16/18 04:27 Lymphocytes % 14.7 % (8-40) 02/16/18 04:27 Monocytes % 10.2 % (3.8-10.2) 02/16/18 04:27 Eosinophils % 2.4 % (0-4.5) 02/16/18 04:27 Basophils % 0.5 % (0-2.0) 02/16/18 04:27 Nucleated RBC % 0 % (0-0) 02/16/18 04:27 No leukocytosis. No anemia. Pt discharged. *DC/Admit/Observation/Transfer Diagnosis at time of Disposition: Chest pain, Headache - Discharge Dispostion Disposition: HOME Condition at time of disposition: Fair Decision to Admit order: No - Referrals - Patient Instructions Additional Instructions: You were seen today for chest pain. Your salt level was low. Eat more food high in salt. Follow up with your primary care doctor in 1-2 days. Return to the Emergency Department for chest pain, shortness of breath, palpitations, or any other new, worsening or concerning symptoms. | Te vieron hoy por dolor en el pecho. Tu nivel de hira era bajo. Coma ms comida con alto contenido de hira. [place] un seguimiento con perla mdico de atencin primaria en 1-2 lucio. Regrese al Departamento de Emergencias para el dolor en el pecho, dificultad para respirar, palpitaciones o cualquier otro sntoma nuevo , que empeore o relacionado con ellos. - Post Discharge Activity
[2018-02-16 04:16] VITALS: TEMP 97.7; BMI 38.6
[2018-02-16] MEDS ORDERED: SODIUM CHLORIDE 1,000 ML IV STA (04:17)
[2018-02-16] MEDS ORDERED: ACETAMINOPHEN 325 MG TABLET (FP) PO ONE (04:17)
[2018-02-16] MEDS ORDERED: ACETAMINOPHEN 325 MG TABLET (FP) ONE (04:38)
--- NOTE | 2018-02-16 04:41 | PDOC ---
Attending Attestation - Resident Resident Name: ShonSue - ED Attending Attestation I have performed the following: I have examined & evaluated the patient, The case was reviewed & discussed with the resident, I agree w/resident's findings & plan, Exceptions are as noted - HPI HPI: 02/16/18 06:24 [id number] well known to this ED c/o GALLARDO and CP. GALLARDO was slow onset, non-exertional, similar to prior headaches. CP Left sided, constant - Physicial Exam PE: 02/16/18 06:25 Agree with exam as documented by resident - Medical Decision Making 02/16/18 06:25 GALLARDO w/o worrisome features, cp consider acs f/u labs, ekg likely dc
[2018-02-16 04:57] LABS: HEMOGLOBIN 9.6 GM/dL (10.7-15.3); WHITE BLOOD COUNT 6.6 K/mm3 (4.0-10.0)
[2018-02-16 06:06] LABS: ALBUMIN 3.7 g/dl (3.4-5.0); ALK PHOS 136 U/L (45-117); ANION GAP 8 MMOL/L (8-16); BILIRUBIN,TOTAL 0.5 mg/dL (0.2-1); BLOOD UREA NITROGEN 13 mg/dL (7-18); CHLORIDE 95 mmol/L (98-107); CO2 25 mmol/L (21-32); CREATININE 0.6 mg/dL (0.55-1.3); GLUCOSE,RANDOM 107 mg/dL (74-106); POTASSIUM 4.3 mmol/L (3.5-5.1); SGOT/AST 30 U/L (15-37); SGPT/ALT 37 U/L (13-61); SODIUM 129 mmol/L (136-145); TOT PROT 6.9 g/dl (6.4-8.2)
[2018-02-16 06:59] LABS: BASO % 0.5 % (0-2.0); EOS % 2.4 % (0-4.5); HEMATOCRIT 30.9 % (32.4-45.2); LYMPH % 14.7 % (8-40); MCH 23.2 pg (25.7-33.7); MCHC 31.1 g/dl (32.0-36.0); MEAN CELL VOLUME 74.6 fl (80-96); MONO % 10.2 % (3.8-10.2); NEUT % 72.2 % (42.8-82.8); PLATELET COUNT 325 K/MM3 (134-434); RBC 4.15 M/mm3 (3.60-5.2)
[2018-02-16 07:41] VITALS: BP 116/65; PULSE 63
--- NOTE | 2018-02-16 09:08 | EKG ---
Test Reason : Blood Pressure : / mmHG Vent. Rate : 072 BPM Atrial Rate : 072 BPM P-R Int : 166 ms QRS Dur : 076 ms QT Int : 406 ms P-R-T Axes : 041 001 011 degrees QTc Int : 444 ms NORMAL SINUS RHYTHM NORMAL ECG WHEN COMPARED WITH ECG OF 02-FEB-2018 16:57, NO SIGNIFICANT CHANGE WAS FOUND Confirmed by ANNITA VENTURA MD ([id number]) on 02/16/2018 9:07:13 AM Referred By: Confirmed By:ANNIAT VENTURA MD
== END 2018-02-16 07:41 | disposition home or self-care (01) ==
LOC: JER 04:04
PROC: 3E0337Z Introduction of Electrolytic and Water Balance Substance into Peripheral Vein, Percutaneous Approach (ICD-10-PCS; principal; 2018-02-16)
DX: R07.9 Chest pain, unspecified (principal); R51 Headache; I10 Essential (primary) hypertension; E11.9 Type 2 diabetes mellitus without complications; D64.9 Anemia, unspecified; J44.9 Chronic obstructive pulmonary disease, unspecified; G40.909 Epilepsy, unspecified, not intractable, without status epilepticus; F41.8 Other specified anxiety disorders; F32.9 Major depressive disorder, single episode, unspecified; I69.810 Attention and concentration deficit following other cerebrovascular disease; I69.893 Ataxia following other cerebrovascular disease; Z86.011 Personal history of benign neoplasm of the brain; Z96.653 Presence of artificial knee joint, bilateral; Z87.19 Personal history of other diseases of the digestive system
CPT/HCPCS: 36415; 80053; 84484; 85025; 93005; 93010; 96360; 99283-25; J7030

== ENCOUNTER 2018-02-16 16:10 | Emergency (ER) | payer OTHER ==
[2018-02-16] MEDS ORDERED: ACETAMINOPHEN 325 MG TABLET (FP) PO ONE (16:33)
--- NOTE | 2018-02-16 16:58 | PDOC ---
History of Present Illness - General Stated Complaint: chest pain Time Seen by Provider: 02/16/18 16:20 History Source: Patient Exam Limitations: Language Barrier - History of Present Illness Initial Comments: 72 year old female with a PMH of HTN, DM, HLD, COPD, CVA, seizures, chronic left breast pain, GERD, meningioma s/p resection presents to the ED for the evaluation of chest pain and headache. Pt is well known to the ED, has been seen in the Emergency Department at [facility] 20 times in the last 30 days for complaints of headache and chest pain. She was last seen this morning for the same issue. She states the headache comes and goes and is worsened when she experiences stress. The chest pain is not associated with any nausea, vomiting, diaphoresis, or physical activity. Denies recent fevers, chills, infections, abdominal pain, dysuria, frequency, urgency, back pain, SOB, difficulty breathing, neck pain, or blurry vision. Past surgical history: removal left meningioma, craniotomy, bilateral knee replacement Social history: Denies drinking alcohol, smoking, or other substance usage. Lives at home with parts counter specialist aid. PCP: Waldo Mabry Allergies: Aspirin, morphine Past History - Past Medical History Allergies/Adverse Reactions: Allergies Allergy/AdvReac Type Severity Reaction Status Date / Time aspirin Allergy Severe "NERVOUS" Verified 02/16/18 04:16 morphine Allergy Severe "ANXIETY-DE Verified 02/16/18 04:16 SPERATION" Home Medications: Ambulatory Orders Amlodipine Besylate 5 mg PO DAILY 11/06/17 Divalproex Sodium [Depakote] 500 mg PO BID 11/06/17 Famotidine 20 mg PO BID 11/06/17 Lisinopril [Prinivil] 5 mg PO DAILY #30 tablet 11/07/17 Mupirocin Ointment [Bactroban] 1 applic TP TID #1 tube 01/31/18 Anemia: Yes Asthma: No Cancer: No Cardiac Disorders: Yes (Chest pain) 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, baseline confusion and dizziness) COPD: Yes CHF: No DVT: No Dementia: No Diabetes: Yes GI Disorders: Yes (gerd, gastric ulcer, dysphagia) Disorders: Yes (kidney stone in the past) HTN: Yes Hypercholesterolemia: Yes Liver Disease: No Psychiatric Problems: Yes (ANXIETY DEPRESSION) Seizures: Yes (S/P craniotomy for benign tumor - on Depakote for seizure prophylaxis) Thyroid Disease: No - Surgical History Abdominal Surgery: Yes Appendectomy: No Cardiac Surgery: No Cholecystectomy: Yes Lung Surgery: No Neurologic Surgery: Yes (removal left meningioma, craniotomy) Orthopedic Surgery: Yes (bilat knee replacement) - Immunization History Td Vaccination: Yes TDAP Vaccination: No Immunization Up to Date: Yes - Suicide/Smoking/Psychosocial Hx Smoking Status: No Smoking History: Unknown if ever smoked Have you smoked in the past 12 months: No Number of Cigarettes Smoked Daily: 0 Cigars Per Day: 0 Hx Alcohol Use: No Drug/Substance Use Hx: No Substance Use Type: None Hx Substance Use Treatment: No Review of Systems - Review of Systems Able to Perform ROS?: Yes Comments:: CONSTITUTIONAL: Absent: fever, no chills, no fatigue EYES: Absent: visual changes ENT: Absent: ear pain, no sore throat CARDIOVASCULAR: Present: chest pain Absent: no palpitations RESPIRATORY: Absent: cough, no SOB GI: Absent: abdominal pain, no nausea, no vomiting, no constipation, no diarrhea GENITOURINARY: Absent: dysuria, no frequency, no hematuria MUSKULOSKELETAL: Absent: back pain, no arthralgia, no myalgia SKIN: Absent: rash NEURO: Present: headache *Physical Exam - Physical Exam Comments: GENERAL: Well-appearing, well-nourished. No apparent distress. HEENT: Normocephalic, atraumatic. PERRL, EOM intact. CARDIOVASCULAR: Normal S1, S2. Regular rate and rhythm. PULMONARY: Clear to auscultation bilaterally. ABDOMEN: Soft, non-distended, non-tender. EXTREMITIES: Normal ROM in all four extremities. No gross deformities. SKIN: Warm, dry. No rash NEUROLOGICAL: No focal neurological deficits. Medical Decision Making - Medical Decision Making 72 year old female with a PMH of HTN, DM, HLD, COPD, CVA, seizures, chronic left breast pain, GERD, meningioma s/p resection presents to the ED for the evaluation of chest pain and headache. DDx IBNLT: ACS, URI, migraine vs tension headache, gastroenteritis. Plan: EKG, tyenol, DC. Patient is well known to our department and presents on a daily basis for the same concerns. She has a live in aid at home with her between 8 am and 4 pm. When the Aid leaves the home she comes to the ED. - EKG normal sinus. - Patient feels better after tylenol. - Will DC patient home. *DC/Admit/Observation/Transfer Diagnosis at time of Disposition: Atypical chest pain - Discharge Dispostion Disposition: HOME Condition at time of disposition: Stable Decision to Admit order: No - Referrals Referrals: Waldo Mabry MD [Primary Care Provider] - - Patient Instructions Printed Discharge Instructions: DI for Atypical Chest Pain Additional Instructions: You came into the ER with chest pain. We did an EKG and found that your heart is beating properly. We gave you some tylenol for pain control. Please make sure to schedule a follow up appointment with your primary care doctor in the next 3 to 5 days. Come back to the ER if your chest pain worsens or have any other serious concerns. Thank you for coming to the [facility] ER. We hope you feel better soon! Print Language: QATARI - Post Discharge Activity
--- NOTE | 2018-02-16 17:01 | PDOC ---
Attending Attestation - Resident Resident Name: [email or web address] - ED Attending Attestation I have performed the following: I have examined & evaluated the patient, The case was reviewed & discussed with the resident, I agree w/resident's findings & plan, Exceptions are as noted - HPI HPI: 02/16/18 17:01 72y F hx of htn, dm, hl, copd, cva, seizures, chronic left breast pain, presents with mild headache, sore throat and cp. no change from baseline. no stafford , diaphroesis, n/v. no focal neuro complants. was seen in the ED earlier today and labs were botained - Physicial Exam PE: 02/16/18 17:43 GENERAL: The patient is awake, alert, and fully oriented, Nontoxic - in no acute distress. HEAD: Normocephalic, atraumatic. EYES: extraocular movements intact, sclera anicteric, conjunctiva clear. ENT: Normal voice, Moist mucous membranes. NECK: Normal range of motion, supple LUNGS: Breath sounds equal, clear to auscultation bilaterally. No wheezes, no rhonchi, no rales. HEART: Regular rate and rhythm, normal S1 and S2 without murmur, rub or gallop. ABDOMEN: Soft, nontender, No guarding, no rebound. . No CVA tenderness EXTREMITIES: Normal range of motion, no edema. NEUROLOGICAL: No facial assymetry, Normal speech, moving all 4 extremities spontaenosly and symemtrically PSYCH: Normal mood, normal affect. SKIN: Warm, Dry, normal turgor, - Medical Decision Making 02/16/18 17:47 suspect chronic pain with depression component labs noted this morning w/ mild hypnatremia will give tylenol, ekg anticipate dc with pmd fu Heart Score/ECG Review - ECG Impressions Comment:: 02/16/18 17:33 Twelve-lead EKG was performed and reviewed by me. There is normal sinus rhythm with a normal rate. rate of 82 The axis is normal. The intervals are normal. There is normal R wave progression There are no ST or T wave abnormalities. Impression: Normal twelve-lead EKG
[2018-02-16] MEDS ORDERED: ACETAMINOPHEN 325 MG TABLET (FP) ONE (18:26)
[2018-02-16 18:57] VITALS: BP 125/54; PULSE 75; TEMP 98.6; BMI 37.6
--- NOTE | 2018-02-17 12:52 | EKG ---
Test Reason : Blood Pressure : / mmHG Vent. Rate : 082 BPM Atrial Rate : 082 BPM P-R Int : 158 ms QRS Dur : 086 ms QT Int : 378 ms P-R-T Axes : 045 -03 023 degrees QTc Int : 441 ms NORMAL SINUS RHYTHM NORMAL ECG WHEN COMPARED WITH ECG OF 16-FEB-2018 05:28, NO SIGNIFICANT CHANGE WAS FOUND Confirmed by MD AVILA MOYSES ([id number]) on 02/17/2018 12:51:34 PM Referred By: Confirmed By:MARK AVILA MD
== END 2018-02-16 19:14 | disposition home or self-care (01) ==
LOC: JER 16:10
DX: R07.9 Chest pain, unspecified (principal); I10 Essential (primary) hypertension; G40.909 Epilepsy, unspecified, not intractable, without status epilepticus; K21.9 Gastro-esophageal reflux disease without esophagitis; E11.9 Type 2 diabetes mellitus without complications; J45.909 Unspecified asthma, uncomplicated; J44.9 Chronic obstructive pulmonary disease, unspecified; F41.8 Other specified anxiety disorders; F32.9 Major depressive disorder, single episode, unspecified; N64.4 Mastodynia; I69.810 Attention and concentration deficit following other cerebrovascular disease; I69.893 Ataxia following other cerebrovascular disease; Z87.19 Personal history of other diseases of the digestive system; Z86.011 Personal history of benign neoplasm of the brain; Z96.653 Presence of artificial knee joint, bilateral
CPT/HCPCS: 93005; 93010; 99282-25

== ENCOUNTER 2018-02-18 03:01 | Emergency (ER) | payer OTHER ==
--- NOTE | 2018-02-18 04:47 | PDOC ---
History of Present Illness - General Chief Complaint: Lethargy Stated Complaint: Unable to sleep Time Seen by Provider: 02/18/18 04:45 History Source: Patient Exam Limitations: No Limitations - History of Present Illness Initial Comments: 02/18/18 04:46 72YOF with h/o HTN, DM, HLD, COPD, CVA, seizures, chronic left breast pain, GERD , meningioma s/p resection who is well known to our ED p/w complaints of inability to sleep and intermittent tiredness Past History - Past Medical History Allergies/Adverse Reactions: Allergies Allergy/AdvReac Type Severity Reaction Status Date / Time aspirin Allergy Severe "NERVOUS" Verified 02/18/18 04:45 morphine Allergy Severe "ANXIETY-DE Verified 02/18/18 04:45 SPERATION" Home Medications: Ambulatory Orders Amlodipine Besylate 5 mg PO DAILY 11/06/17 Divalproex Sodium [Depakote] 500 mg PO BID 11/06/17 Famotidine 20 mg PO BID 11/06/17 Lisinopril [Prinivil] 5 mg PO DAILY #30 tablet 11/07/17 Mupirocin Ointment [Bactroban] 1 applic TP TID #1 tube 01/31/18 Anemia: Yes Asthma: No Cancer: No Cardiac Disorders: Yes (Chest pain) 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, baseline confusion and dizziness) COPD: Yes CHF: No DVT: No Dementia: No Diabetes: Yes GI Disorders: Yes (gerd, gastric ulcer, dysphagia) Disorders: Yes (kidney stone in the past) HTN: Yes Hypercholesterolemia: Yes Liver Disease: No Psychiatric Problems: Yes (ANXIETY DEPRESSION) Seizures: Yes (S/P craniotomy for benign tumor - on Depakote for seizure prophylaxis) Thyroid Disease: No - Surgical History Abdominal Surgery: Yes Appendectomy: No Cardiac Surgery: No Cholecystectomy: Yes Lung Surgery: No Neurologic Surgery: Yes (removal left meningioma, craniotomy) Orthopedic Surgery: Yes (bilat knee replacement) - Immunization History Td Vaccination: Yes TDAP Vaccination: No Immunization Up to Date: Yes - Suicide/Smoking/Psychosocial Hx Smoking Status: No Smoking History: Never smoked Have you smoked in the past 12 months: No Number of Cigarettes Smoked Daily: 0 Cigars Per Day: 0 Information on smoking cessation initiated: No Hx Alcohol Use: No Drug/Substance Use Hx: No Substance Use Type: None Hx Substance Use Treatment: No Review of Systems - Review of Systems Able to Perform ROS?: Yes Comments:: 02/18/18 05:02 GEN: tiredness, no fever, chills, malaise, generalized weakness, or weight change HEENT: no ear pain, sore throat, vision change, or eye pain CV: baseline chronic chest pain, no palpitations, lightheadedness, syncope, or edema RESP: no cough, wheezing, or SOB GI: no abdominal pain, nausea, vomiting, diarrhea, constipation, or white/black/ bloody stool : no dysuria, hematuria, incontinence, retention, bleeding, or discharge MSK: no neck/back pain, muscle weakness/pain, or joint swelling/pain NEURO: no headache, seizure, vertigo, numbness, tingling, or focal weakness PSYCH: insomnia, no substance use, no behavior change SKIN: no jaundice, no rash ROS otherwise negative except as noted in HPI *Physical Exam - Vital Signs Last Vital Signs Temp Pulse Resp BP Pulse Ox 97.4 F L 79 18 131/82 97 02/18/18 03:02 02/18/18 03:02 02/18/18 03:02 02/18/18 03:02 02/18/18 03:02 - Physical Exam Comments: 02/18/18 05:05 GENERAL: nontoxic appearing, pleasant, obese, A/Ox4, no distress, answers questions appropriately HEENT: PERRLA, EOMI, moist mucous membranes NECK/BACK: no midline ttp, no spinal stepoff or deformity, no hematoma, full ROM , neck supple CARDIOVASCULAR: regular rate/rhythm, normal S1S2, no MGR, strong peripheral pulses, capillary refill <2 seconds, extremities wwp LUNGS/RESPIRATORY: no respiratory distress, CTAB GI/ABDOMEN: obese, symmetric [id number], normoactive BS, soft, no ttp, no midline pulsatile masses : no CVA tenderness EXTREMITIES: no muscle atrophy, no acute deformity, no edema SKIN: warm and dry, no pallor, no jaundice, no rash, no bruising, no skin breakdown, no cuts, no lesions NEUROLOGICAL: GCS 15, CN II-XII grossly intact, 5/5 strength proximally and distally, no facial droop Moderate Sedation - Procedure Monitoring Vital Signs: Procedure Monitoring Vital Signs Temperature 97.4 F L 02/18/18 03:02 Pulse Rate 79 02/18/18 03:02 Respiratory Rate 18 02/18/18 03:02 Blood Pressure 131/82 02/18/18 03:02 O2 Sat by Pulse Oximetry (%) 97 02/18/18 03:02 *DC/Admit/Observation/Transfer Diagnosis at time of Disposition: Insomnia Qualifiers: Insomnia type: unspecified Qualified Code(s): G47.00 - Insomnia, unspecified - Discharge Dispostion Disposition: HOME Condition at time of disposition: Stable Decision to Admit order: No - Referrals Ref[place] [facility] [place] [facility] [place] [facility] [place] Group] - Patient Instructions Printed Discharge Instructions: DI for Insomnia Additional Instructions: You were seen in the emergency room for insomnia. We did an interview and physical exam. We gave you Tylenol for your chronic pain, and this did help. After our assessment, we do not believe you are having a medical emergency at this time, and we believe you are safe to go home. Please follow up with your primary care provider in 1-3 days. We are giving you referral information in case you need a new primary doctor. Call their clinic, tell them you were seen in the ER, and tell them you need a follow-up. You need to go to a primary care doctor for your main source of medical care. However, if you have any new or worsening symptoms, please come back to the ER at any time (24 hours a day). If you are having severe or life threatening symptoms, or symptoms that make it unsafe to drive or have someone drive you, please call 911. Duff visto en la leah de emergencias por insomnio. Hicimos tavo entrevista y un examen fsico. Te dimos Tylenol para tu dolor crnico, y esto te ayud. Despus de nuestra evaluacin, no creemos que tenga tavo emergencia mdica en neha momento, y creemos que puede irse a casa sin peligro. Por favor, karol un seguimiento con perla proveedor de atencin primaria en 1-3 lucio. Le estamos dando informacin de referencia en ana de que necesite un nuevo mdico de cabecera. Llame a perla clnica, dgales que lo vieron en la leah de emergencias y dgales que necesita un seguimiento. Debe acudir a un mdico de atencin primaria para perla principal allie de atencin mdica. Sin embargo, si tiene algn sntoma nuevo o que empeora, vuelva a la leah de emergencias en cualquier momento (las 24 horas del da). Si tiene sntomas graves o potencialmente mortales, o sntomas que hacen que no sea seguro conducir o que alguien lo lleve, llame al 911. - Post Discharge Activity
--- NOTE | 2018-02-18 04:50 | PDOC ---
Attending Attestation - Resident Resident Name: LorenNerissa - ED Attending Attestation I have performed the following: I have examined & evaluated the patient, The case was reviewed & discussed with the resident, I agree w/resident's findings & plan - HPI HPI: 02/18/18 04:49 Pt is here because she cannot sleep at home due to anxiety and she feels better in the ER. - Physicial Exam PE: 02/18/18 04:50 Agree with resident exam. - Medical Decision Making 02/18/18 04:50 Pt will likely go home in the AM.
[2018-02-18 05:09] VITALS: BP 131/82; PULSE 79; BMI 37.6
[2018-02-18] MEDS ORDERED: ACETAMINOPHEN 325 MG TABLET (FP) PO ONE (05:27)
[2018-02-18 05:47] VITALS: TEMP 97.6
[2018-02-18] MEDS ORDERED: ACETAMINOPHEN 325 MG TABLET (FP) ONE (06:33)
== END 2018-02-18 07:11 | disposition home or self-care (01) ==
LOC: JER 03:01
DX: G47.00 Insomnia, unspecified (principal); F41.9 Anxiety disorder, unspecified; I10 Essential (primary) hypertension; E11.9 Type 2 diabetes mellitus without complications; J44.9 Chronic obstructive pulmonary disease, unspecified; J45.909 Unspecified asthma, uncomplicated; D64.9 Anemia, unspecified; G40.909 Epilepsy, unspecified, not intractable, without status epilepticus; K21.9 Gastro-esophageal reflux disease without esophagitis; F32.9 Major depressive disorder, single episode, unspecified; F41.8 Other specified anxiety disorders; Z96.653 Presence of artificial knee joint, bilateral; Z87.19 Personal history of other diseases of the digestive system; Z86.011 Personal history of benign neoplasm of the brain
CPT/HCPCS: 99282-25

== ENCOUNTER 2018-02-19 18:53 | Emergency (ER) | payer OTHER ==
[2018-02-19 19:06] VITALS: BP 130/70; TEMP 98.6; BMI 25.8
[2018-02-19] MEDS ORDERED: ACETAMINOPHEN 325 MG TABLET (FP) PO ONE ×2 (19:08→23:21)
--- NOTE | 2018-02-19 19:08 | PDOC ---
Rapid Medical Evaluation Chief Complaint: Chest Pain Time Seen by Provider: 02/19/18 19:06 Medical Evaluation: Allergies Allergy/AdvReac Type Severity Reaction Status Date / Time aspirin Allergy Severe "NERVOUS" Verified 02/18/18 04:45 morphine Allergy Severe "ANXIETY-DE Verified 02/18/18 04:45 SPERATION" Vital Signs Temp Pulse Resp BP Pulse Ox 98.6 F 104 H 16 130/70 96 02/19/18 19:02 02/19/18 19:02 02/19/18 19:02 02/19/18 19:02 02/19/18 19:02 02/19/18 19:06 I have done a brief in-person assessment of this patient. The patient presents with a chief complaint of chest pain and headache since last night. Reports feeling as if she is going to . States rapid heart rate. Denies dizziness or nausea Pertinent physical exam findings NAD ambulatory with walker I have ordered the following: analgesia The patient will proceed to the Ed for further evaluation. 02/19/18 21:45 Dx: headache chest pain Discharge Disposition - Discharge Dispostion Condition at time of disposition: Stable - Referrals Referrals: Waldo Mabry MD [Primary Care Provider] - - Patient Instructions - Post Discharge Activity
--- NOTE | 2018-02-19 20:16 | PDOC ---
History of Present Illness - General Chief Complaint: Chest Pain Stated Complaint: CHEST PAIN Time Seen by Provider: 02/19/18 19:06 - History of Present Illness Initial Comments: 02/19/18 20:17 Ms. Sumner is a 72 yo female w/ pmh of HTN, HLD, DM, COPD, CVA, seizures, GERD , chronic L chest pain, and intracranial meninggioma s/p resection who presents for evaluation of 1 day history of left chest pain typical of her usual presentation. She further reports 1 day history of diarrhea. Patient given tylenol at presentation. The patient denies shortness of breath and dizziness. Denies fever, chills, nausea, vomit, and constipation. Denies dysuria, frequency, urgency and hematuria. Past History - Past Medical History Allergies/Adverse Reactions: Allergies Allergy/AdvReac Type Severity Reaction Status Date / Time aspirin Allergy Severe "NERVOUS" Verified 02/19/18 20:52 morphine Allergy Severe "ANXIETY-DE Verified 02/19/18 20:52 SPERATION" Home Medications: Ambulatory Orders Amlodipine Besylate 5 mg PO DAILY 11/06/17 Divalproex Sodium [Depakote] 500 mg PO BID 11/06/17 Famotidine 20 mg PO BID 11/06/17 Lisinopril [Prinivil] 5 mg PO DAILY #30 tablet 11/07/17 Anemia: Yes Asthma: No Cancer: No Cardiac Disorders: Yes (Chest pain) 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, baseline confusion and dizziness) COPD: Yes CHF: No DVT: No Dementia: No Diabetes: Yes GI Disorders: Yes (gerd, gastric ulcer, dysphagia) Disorders: Yes (kidney stone in the past) HTN: Yes Hypercholesterolemia: Yes Liver Disease: No Psychiatric Problems: Yes (ANXIETY DEPRESSION) Seizures: Yes (S/P craniotomy for benign tumor - on Depakote for seizure prophylaxis) Thyroid Disease: No - Surgical History Abdominal Surgery: Yes Appendectomy: No Cardiac Surgery: No Cholecystectomy: Yes Lung Surgery: No Neurologic Surgery: Yes (removal left meningioma, craniotomy) Orthopedic Surgery: Yes (bilat knee replacement) - Immunization History Td Vaccination: Yes TDAP Vaccination: No Immunization Up to Date: Yes - Suicide/Smoking/Psychosocial Hx Smoking Status: No Smoking History: Never smoked Have you smoked in the past 12 months: No Number of Cigarettes Smoked Daily: 0 Cigars Per Day: 0 Information on smoking cessation initiated: No Hx Alcohol Use: No Drug/Substance Use Hx: No Substance Use Type: None Hx Substance Use Treatment: No Review of Systems - Review of Systems Comments:: 02/19/18 20:25 GENERAL/CONSTITUTIONAL: No fever or chills. No weakness. HEAD, EYES, EARS, NOSE AND THROAT: No change in vision. No ear pain or discharge. No sore throat. CARDIOVASCULAR: +Chest pain as described. No shortness of breath RESPIRATORY: No cough, wheezing, or hemoptysis. GASTROINTESTINAL: +Diarrhea x1 day. No nausea, vomiting, or constipation. GENITOURINARY: No dysuria, frequency, or change in urination. MUSCULOSKELETAL: No joint or muscle swelling or pain. No neck or back pain. SKIN: No rash NEUROLOGIC: No headache, vertigo, loss of consciousness, or change in strength/ sensation. ENDOCRINE: No increased thirst. No abnormal weight change HEMATOLOGIC/LYMPHATIC: No anemia, easy bleeding, or history of blood clots. ALLERGIC/IMMUNOLOGIC: No hives or skin allergy. *Physical Exam - Vital Signs Last Vital Signs Temp Pulse Resp BP Pulse Ox 98.6 F 104 H 16 130/70 96 02/19/18 19:02 02/19/18 19:02 02/19/18 19:02 02/19/18 19:02 02/19/18 19:02 - Physical Exam Comments: 02/19/18 20:26 GENERAL: Awake, alert, and fully oriented, in no acute distress HEAD: No signs of trauma, normocephalic, atraumatic EYES: PERRLA, EOMI, sclera anicteric, conjunctiva clear ENT: Auricles normal inspection, hearing grossly normal, nares patent, oropharynx clear without exudates. Moist mucosa NECK: Normal ROM, supple, no lymphadenopathy, JVD, or masses LUNGS: +Reproducible TTP to L breast. No distress, speaks full sentences, clear to auscultation bilaterally HEART: Regular rate and rhythm, normal S1 and S2, no murmurs, rubs or gallops, peripheral pulses normal and equal bilaterally. ABDOMEN: Soft, nontender, normoactive bowel sounds. No guarding, no rebound. No masses EXTREMITIES: Normal inspection, Normal range of motion, no edema. No clubbing or cyanosis. NEUROLOGICAL: Cranial nerves II through XII grossly intact. Normal speech, normal gait, no focal sensorimotor deficits SKIN: Warm, Dry, normal turgor, no rashes or lesions noted. Moderate Sedation - Procedure Monitoring Vital Signs: Procedure Monitoring Vital Signs Temperature 98.6 F 02/19/18 19:02 Pulse Rate 104 H 02/19/18 19:02 Respiratory Rate 16 02/19/18 19:02 Blood Pressure 130/70 02/19/18 19:02 O2 Sat by Pulse Oximetry (%) 96 02/19/18 19:02 ED Treatment Course - LABORATORY CBC & Chemistry Diagram: 02/19/18 20:45 02/19/18 20:45 - Medications Given in the ED: ED Medications Discontinued Medications Generic Name Dose Route Start Last Admin Trade Name Chance PRN Reason Stop Dose Admin Acetaminophen 650 mg 02/19/18 19:08 02/19/18 19:18 Tylenol - PO 02/19/18 19:09 650 mg ONCE ONE Administration Medical Decision Making - Medical Decision Making 02/19/18 23:21 Ms. Sumner is a 72 yo female w/ pmh as described who presents for evaluation of chronic pain. Patient well appearing upon exam with chronic pain symptoms only. Patient workup started for basic labs to r/o infectious or electrolyte abnormalities as well as cardiac pathology. Patient EKG normal. Patient labs grossly wnl as below. Exceptions of decreased Sodium and Chloride at patient's baseline. No concern for acute process at this time. Discharging to home. Laboratory Results - last 24 hr 02/19/18 02/19/18 20:45 20:45 WBC 3.7 L RBC 4.37 Hgb 10.5 L Hct 31.9 L MCV 73.1 L MCH 24.1 L MCHC 33.0 RDW 18.2 H Plt Count 280 MPV 6.7 L Absolute Neuts (auto) 2.1 Neutrophils % 55.2 D Lymphocytes % 29.3 D Monocytes % 14.7 H Eosinophils % 0.5 Basophils % 0.3 Nucleated RBC % 0 Sodium 129 L Potassium 3.8 Chloride 96 L Carbon Dioxide 21 Anion Gap 12 BUN 15 Creatinine 0.8 Creat Clearance w eGFR > 60 Random Glucose 93 Calcium 8.4 L Total Bilirubin 0.4 AST 45 H ALT 59 Alkaline Phosphatase 143 H Troponin I < 0.02 Total Protein 7.4 Albumin 3.7 *DC/Admit/Observation/Transfer Diagnosis at time of Disposition: Atypical chest pain - Discharge Dispostion Disposition: HOME Condition at time of disposition: Stable - Referrals Referrals: Waldo Mabry MD [Primary Care Provider] - - Patient Instructions Printed Discharge Instructions: DI for Atypical Chest Pain Additional Instructions: Usted fue evaluado hoy en la leah de emergencias por perla dolor en el [facility]. No se encontraron sntomas preocupantes en neha momento y creemos que esto es tavo continuacin de perla dolor crnico. Por favor, karol un seguimiento con el proveedor de atencin primaria ms adelante esta semana para tavo evaluacin adicional. Regrese a la leah de emergencias si presenta algn aumento de dolor, fiebre, escalofros, dificultad para respirar u - Post Discharge Activity
[2018-02-19 21:00] LABS: BASO % 0.3 % (0-2.0); EOS % 0.5 % (0-4.5); HEMATOCRIT 31.9 % (32.4-45.2); HEMOGLOBIN 10.5 GM/dL (10.7-15.3); LYMPH % 29.3 % (8-40); MCH 24.1 pg (25.7-33.7); MEAN CELL VOLUME 73.1 fl (80-96); MEAN PLT VOLUME 6.7 fl (7.5-11.1); MONO % 14.7 % (3.8-10.2); NEUT % 55.2 % (42.8-82.8); PLATELET COUNT 280 K/MM3 (134-434); RBC 4.37 M/mm3 (3.60-5.2); RDW 18.2 % (11.6-15.6); WHITE BLOOD COUNT 3.7 K/mm3 (4.0-10.0)
--- NOTE | 2018-02-19 21:06 | PDOC ---
Attending Attestation - Resident Resident Name: Abdoul Burgos - ED Attending Attestation I have performed the following: I have examined & evaluated the patient, The case was reviewed & discussed with the resident, I agree w/resident's findings & plan, Exceptions are as noted - HPI HPI: 02/19/18 21:04 "72 F with h/o HLD, DM, HTN, COPD, CVA (residual altered balance, baseline confusion and dizziness), chronic chest pain, GERD, seizures, presenting to ED with chest pain and 1 day of nonbloody diarrhea. Pt states this is the same as her previous episodes. Denies SOB. Denies leg swelling. Pt also complains of her usual headache. No thunderclap, not worst headache of life. No F/C. No neck pain. No N/V. - Physicial Exam PE: 02/19/18 21:04 "GENERAL: Awake, alert, and fully oriented, in no acute distress. HEAD: No signs of trauma EYES: PERRLA, EOMI, sclera anicteric, conjunctiva clear ENT: Auricles normal inspection, hearing grossly normal, nares patent, oropharynx clear without exudates. Moist mucosa NECK: Nontender, no stepoffs, Normal ROM, supple, no lymphadenopathy, JVD, or masses LUNGS: Breath sounds equal, clear to auscultation bilaterally. No wheezes, and no crackles HEART: Regular rate and rhythm, normal S1 and S2, no murmurs, rubs or gallops ABDOMEN: Soft, nontender, normoactive bowel sounds. No guarding, no rebound. No masses EXTREMITIES: Normal range of motion, no edema. No clubbing or cyanosis. No cords, erythema, or tenderness NEUROLOGICAL: Cranial nerves II through XII intact. 5/5 strength and sensation in all extremities, Normal speech, normal gait, normal cerebellar function SKIN: Warm, Dry, normal turgor, no rashes or lesions noted. - Medical Decision Making 02/19/18 21:05 72 F with her usual chronic chest pain. EKG is unchanged. Will send cardiac enzymes. Pt also complaining of diarrhea. Has benign abdominal exam. Possible gastroenteritis. Will check basic labs. - Labs, trop - Reassess 02/19/18 23:22 Labs wnl Pt is well appearing, with normal vitals. Clinically stable for DC at this time. I discussed the physical exam findings, ancillary test results and final diagnoses with the patient. I answered all of the patient's questions. The patient was satisfied with the care received and felt comfortable with the discharge plan and treatment plan. The patient agrees to follow up with the primary care physician within 24-72 hours.
[2018-02-19 23:13] LABS: ALBUMIN 3.7 g/dl (3.4-5.0); ALK PHOS 143 U/L (45-117); ANION GAP 12 MMOL/L (8-16); BILIRUBIN,TOTAL 0.4 mg/dL (0.2-1); BLOOD UREA NITROGEN 15 mg/dL (7-18); CALCIUM 8.4 mg/dL (8.5-10.1); CHLORIDE 96 mmol/L (98-107); CO2 21 mmol/L (21-32); CREATININE 0.8 mg/dL (0.55-1.3); GLUCOSE,RANDOM 93 mg/dL (74-106); POTASSIUM 3.8 mmol/L (3.5-5.1); SGOT/AST 45 U/L (15-37); SGPT/ALT 59 U/L (13-61); SODIUM 129 mmol/L (136-145); TOT PROT 7.4 g/dl (6.4-8.2)
[2018-02-19] MEDS ORDERED: ACETAMINOPHEN 325 MG TABLET (FP) ONE (23:22)
[2018-02-19 23:23] VITALS: PULSE 84
--- NOTE | 2018-02-20 10:02 | EKG ---
Test Reason : Blood Pressure : / mmHG Vent. Rate : 084 BPM Atrial Rate : 084 BPM P-R Int : 140 ms QRS Dur : 084 ms QT Int : 374 ms P-R-T Axes : 038 -10 043 degrees QTc Int : 441 ms NORMAL SINUS RHYTHM NORMAL ECG WHEN COMPARED WITH ECG OF 16-FEB-2018 17:11, NO SIGNIFICANT CHANGE WAS FOUND Confirmed by Ashvin España MD ([id number]) on 02/20/2018 10:02:31 AM Referred By: Confirmed By:Ashvin España MD
== END 2018-02-20 00:40 | disposition home or self-care (01) ==
LOC: JER 18:53
DX: R19.7 Diarrhea, unspecified (principal); R07.89 Other chest pain; G89.29 Other chronic pain; I10 Essential (primary) hypertension; E11.9 Type 2 diabetes mellitus without complications; J44.9 Chronic obstructive pulmonary disease, unspecified; K21.9 Gastro-esophageal reflux disease without esophagitis; R56.9 Unspecified convulsions; Z86.73 Personal history of transient ischemic attack (TIA), and cerebral infarction without residual deficits
CPT/HCPCS: 36415; 80053; 84484; 85025; 93005; 93010; 99284-25

== ENCOUNTER 2018-02-26 22:08 | Emergency (ER) | payer OTHER ==
[2018-02-26 22:14] VITALS: BMI 30.1
--- NOTE | 2018-02-27 00:15 | PDOC ---
History of Present Illness - General Chief Complaint: Shortness of Breath Stated Complaint: SOB History Source: Patient - History of Present Illness Initial Comments: 02/27/18 02:32 72 year old female BIBA c/o chest pain / left breast pain on palpation. patient frequent visits to the ER for similar complaints. patient last had a neg cardiac work up in the ED on 02/19/2018pmh of HTN, HLD, DM, COPD, CVA, seizures, GERD, chronic L chest pain, and intracranial meningioma s/p resection patient intially c/o urinary retention now patient refused any abdominal pain, urinary retention, urinary frequency. 02/27/18 02:55 Timing/Duration: intermittent Severity: mild Past History - Past Medical History Allergies/Adverse Reactions: Allergies Allergy/AdvReac Type Severity Reaction Status Date / Time aspirin Allergy Severe "NERVOUS" Verified 02/19/18 20:52 morphine Allergy Severe "ANXIETY-DE Verified 02/19/18 20:52 SPERATION" Home Medications: Ambulatory Orders Amlodipine Besylate 5 mg PO DAILY 11/06/17 Divalproex Sodium [Depakote] 500 mg PO BID 11/06/17 Famotidine 20 mg PO BID 11/06/17 Lisinopril [Prinivil] 5 mg PO DAILY #30 tablet 11/07/17 Anemia: Yes Asthma: No Cancer: No Cardiac Disorders: Yes (Chest pain) 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, baseline confusion and dizziness) COPD: Yes CHF: No DVT: No Dementia: No Diabetes: Yes GI Disorders: Yes (gerd, gastric ulcer, dysphagia) Disorders: Yes (kidney stone in the past) HTN: Yes Hypercholesterolemia: Yes Liver Disease: No Psychiatric Problems: Yes (ANXIETY DEPRESSION) Seizures: Yes (S/P craniotomy for benign tumor - on Depakote for seizure prophylaxis) Thyroid Disease: No - Surgical History Abdominal Surgery: Yes Appendectomy: No Cardiac Surgery: No Cholecystectomy: Yes Lung Surgery: No Neurologic Surgery: Yes (removal left meningioma, craniotomy) Orthopedic Surgery: Yes (bilat knee replacement) - Immunization History Td Vaccination: Yes TDAP Vaccination: No Immunization Up to Date: Yes - Suicide/Smoking/Psychosocial Hx Smoking Status: No Smoking History: Unknown if ever smoked Have you smoked in the past 12 months: No Number of Cigarettes Smoked Daily: 0 Cigars Per Day: 0 Hx Alcohol Use: No Drug/Substance Use Hx: No Substance Use Type: None Hx Substance Use Treatment: No *Physical Exam - Vital Signs Last Vital Signs Temp Pulse Resp BP Pulse Ox 98.8 F 88 20 142/79 95 02/26/18 22:12 02/26/18 22:12 02/26/18 22:12 02/26/18 22:12 02/26/18 22:12 - Physical Exam General Appearance: Yes: Appropriately Dressed Respiratory/Chest: positive: Chest Tender (left breast tenderness), Lungs Clear , Normal Breath Sounds Cardiovascular: positive: Regular Rhythm, Regular Rate, S1, S2 Gastrointestinal/Abdominal: positive: Normal Bowel Sounds, Soft Moderate Sedation - Procedure Monitoring Vital Signs: Procedure Monitoring Vital Signs Temperature 98.8 F 02/26/18 22:12 Pulse Rate 88 02/26/18 22:12 Respiratory Rate 20 02/26/18 22:12 Blood Pressure 142/79 02/26/18 22:12 O2 Sat by Pulse Oximetry (%) 95 02/26/18 22:12 Heart Score/ECG Review - History History: Slightly suspicious - Electrocardiogram EKG: Normal - Age Age: >/= 65 - Risk Factors Risk Factors Heart Score: Yes Hx Hypercholesterolemia, Yes Hx Hypertension Based on the list above the patient has:: 1-2 risk factors - ECG Intrepretation Rhythm: Regular Rhythm Comment:: 02/27/18 02:54 NSR Medical Decision Making - Medical Decision Making 02/27/18 01:15 patient is well appearing interacting with other patients,patient is also to noted to be laughing and singing. will do ekg, ua *DC/Admit/Observation/Transfer Diagnosis at time of Disposition: Chest wall pain, chronic, Malingering - Discharge Dispostion Disposition: HOME - Referrals Referrals: Waldo Mabry MD [Primary Care Provider] - 24 hours - Patient Instructions Printed Discharge Instructions: DI for Atypical Chest Pain Additional Instructions: please follow up with your doctor as soon as possible. - Post Discharge Activity
[2018-02-27] MEDS ORDERED: ACETAMINOPHEN 500 MG TABLET (FP) PO ONE (01:07)
[2018-02-27] MEDS ORDERED: ACETAMINOPHEN 325 MG TABLET (FP) ONE ×2 (01:19→06:31)
--- NOTE | 2018-02-27 02:19 | PDOC ---
*Physical Exam - Vital Signs Last Vital Signs Temp Pulse Resp BP Pulse Ox 98.8 F 88 20 142/79 95 02/26/18 22:12 02/26/18 22:12 02/26/18 22:12 02/26/18 22:12 02/26/18 22:12 ED Treatment Course - Medications Given in the ED: ED Medications Discontinued Medications Generic Name Dose Route Start Last Admin Trade Name Freq PRN Reason Stop Dose Admin Acetaminophen 1,000 mg 02/27/18 01:07 02/27/18 01:21 Tylenol - PO 02/27/18 01:08 1,000 mg ONCE ONE Administration Medical Decision Making - Medical Decision Making 02/27/18 02:18 Patient seen by the advanced practice provider under my direct supervision. Ancillary testing reviewed as necessary. I agree with plan as outlined by the advanced practice provider. *DC/Admit/Observation/Transfer Diagnosis at time of Disposition: Chest wall pain, chronic, Malingering - Discharge Dispostion Disposition: HOME - Referrals Referrals: Waldo Mabry MD [Primary Care Provider] - 24 hours - Patient Instructions Printed Discharge Instructions: DI for Atypical Chest Pain Additional Instructions: please follow up with your doctor as soon as possible. - Post Discharge Activity
[2018-02-27 03:45] VITALS: BP 138/76; PULSE 72; TEMP 98
--- NOTE | 2018-02-27 18:11 | EKG ---
Test Reason : Blood Pressure : / mmHG Vent. Rate : 080 BPM Atrial Rate : 080 BPM P-R Int : 168 ms QRS Dur : 070 ms QT Int : 380 ms P-R-T Axes : 054 012 027 degrees QTc Int : 438 ms NORMAL SINUS RHYTHM NORMAL ECG Confirmed by MD JARON, UMBERTO ([id number]) on 02/27/2018 6:11:34 PM Referred By: Confirmed By:UMBERTO SALMERON MD
== END 2018-02-27 06:34 | disposition home or self-care (01) ==
LOC: JER 22:08
DX: R07.9 Chest pain, unspecified (principal); Z76.5 Malingerer [conscious simulation]; I10 Essential (primary) hypertension; E11.9 Type 2 diabetes mellitus without complications; J44.9 Chronic obstructive pulmonary disease, unspecified; J45.909 Unspecified asthma, uncomplicated; D64.9 Anemia, unspecified; G40.909 Epilepsy, unspecified, not intractable, without status epilepticus; K21.9 Gastro-esophageal reflux disease without esophagitis; F41.8 Other specified anxiety disorders; F32.9 Major depressive disorder, single episode, unspecified; I69.810 Attention and concentration deficit following other cerebrovascular disease; I69.818 Other symptoms and signs involving cognitive functions following other cerebrovascular disease; I69.893 Ataxia following other cerebrovascular disease; Z96.653 Presence of artificial knee joint, bilateral; Z87.19 Personal history of other diseases of the digestive system; Z86.011 Personal history of benign neoplasm of the brain
CPT/HCPCS: 93005; 93010; 99282-25

== ENCOUNTER 2018-02-28 18:25 | Emergency (ER) | payer OTHER ==
[2018-02-28 18:42] VITALS: BP 108/69; PULSE 92; TEMP 98.6; BMI 30.9
[2018-02-28] MEDS ORDERED: ACETAMINOPHEN 325 MG TABLET (FP) PO ONE (23:04)
[2018-03-01] MEDS ORDERED: ACETAMINOPHEN 325 MG TABLET (FP) ONE (00:40)
--- NOTE | 2018-03-01 00:56 | PDOC ---
History of Present Illness - General Chief Complaint: Chest Pain Stated Complaint: Chest Pain Time Seen by Provider: 02/28/18 22:37 History Source: Patient, Old Records - History of Present Illness Initial Comments: 03/01/18 00:55 HISTORY OF PRESENT ILLNESS: This is a 72-year-old female well-known to this emergency Department presents emergency department for reevaluation of chronic chest pain and headache. Patient has had multiple visits for similar complaints and is noted to be hyponatremic during many of the visits. Cardiac enzymes as well as been normal and there is been no change in EKGs or chest x-rays on previous visit. Chest pain is left-sided and easily reproducible with light palpation. Patient has not taken any analgesic prior to arrival to ER. No recent travel or sick contacts. ALLERGIES: ASA, MSO4 REVIEW OF SYSTEMS General/Constitutional: Denies fever or chills. Denies weakness, weight change. HEENT: Denies change in vision. Denies ear pain or discharge. Denies sore throat. Cardiovascular: (+)chest pain. Denies shortness of breath. Respiratory: Denies cough, wheezing, or hemoptysis. Gastrointestinal: Denies nausea, vomiting, diarrhea or constipation. Denies rectal bleeding. Genitourinary: Denies dysuria, frequency, or change in urination. Musculoskeletal: Denies joint or muscle swelling or pain. Denies neck or back pain. Skin and breasts: Denies rash or easy bruising. Neurologic: Global headache. Denies vertigo, loss of consciousness, or loss of sensation. Psychiatric: Denies depression or anxiety. Endocrine: Denies increased thirst. Denies abnormal weight change. Hematologic/Lymphatic: Denies anemia, easy bleeding, or history of blood clots. Allergic/Immunologic: Denies hives or skin allergy. Denies latex allergy. PHYSICAL EXAM General Appearance: Well-appearing, appropriately dressed. No apparent distress , no intoxication. HEENT: EOMI, PERRLA, normal ENT inspection, normal voice, TMs normal, pharynx normal. No conjunctival pallor. No photophobia, scleral icterus. Respiratory/Chest: Lungs CTAB. No shortness of breath, respiratory distress, accessory muscle use. No crackles, rales, rhonchi, stridor, wheezing, dullness. (+)left sided chest tenderness Cardiovascular: RRR. S1, S2. No JVD, murmur, bradycardia, tachycardia. 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 Fully oriented, alert. Appropriate mood/affect. Motor strength 5/5. No appreciable EOM palsy, facial droop or sensory deficit. Past History - Past Medical History Allergies/Adverse Reactions: Allergies Allergy/AdvReac Type Severity Reaction Status Date / Time aspirin Allergy Severe "NERVOUS" Verified 03/05/18 18:37 morphine Allergy Severe "ANXIETY-DE Verified 03/05/18 18:37 SPERATION" Home Medications: Ambulatory Orders Amlodipine Besylate 5 mg PO DAILY 11/06/17 Divalproex Sodium [Depakote] 500 mg PO BID 11/06/17 Famotidine 20 mg PO BID 11/06/17 Lisinopril [Prinivil] 5 mg PO DAILY #30 tablet 11/07/17 Anemia: Yes Asthma: No Cancer: No Cardiac Disorders: Yes (Chest pain) 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, baseline confusion and dizziness) COPD: Yes CHF: No DVT: No Dementia: No Diabetes: Yes GI Disorders: Yes (gerd, gastric ulcer, dysphagia) Disorders: Yes (kidney stone in the past) HTN: Yes Hypercholesterolemia: Yes Liver Disease: No Psychiatric Problems: Yes (ANXIETY DEPRESSION) Seizures: Yes (S/P craniotomy for benign tumor - on Depakote for seizure prophylaxis) Thyroid Disease: No - Surgical History Abdominal Surgery: Yes Appendectomy: No Cardiac Surgery: No Cholecystectomy: Yes Lung Surgery: No Neurologic Surgery: Yes (removal left meningioma, craniotomy) Orthopedic Surgery: Yes (bilat knee replacement) - Immunization History Td Vaccination: Yes TDAP Vaccination: No Immunization Up to Date: Yes - Suicide/Smoking/Psychosocial Hx Smoking Status: No Smoking History: Never smoked Have you smoked in the past 12 months: No Number of Cigarettes Smoked Daily: 0 Cigars Per Day: 0 Information on smoking cessation initiated: No Hx Alcohol Use: No Drug/Substance Use Hx: No Substance Use Type: None Hx Substance Use Treatment: No *Physical Exam - Vital Signs Last Vital Signs Temp Pulse Resp BP Pulse Ox 98.6 F 92 H 16 108/69 97 02/28/18 18:39 02/28/18 18:39 02/28/18 18:39 02/28/18 18:39 02/28/18 18:39 Moderate Sedation - Procedure Monitoring Vital Signs: Procedure Monitoring Vital Signs Temperature 98.6 F 02/28/18 18:39 Pulse Rate 92 H 02/28/18 18:39 Respiratory Rate 16 02/28/18 18:39 Blood Pressure 108/69 02/28/18 18:39 O2 Sat by Pulse Oximetry (%) 97 02/28/18 18:39 ED Treatment Course - LABORATORY CBC & Chemistry Diagram: 03/01/18 02:00 03/01/18 02:00 - Medications Given in the ED: ED Medications Discontinued Medications Generic Name Dose Route Start Last Admin Trade Name Freq PRN Reason Stop Dose Admin Acetaminophen 650 mg 02/28/18 23:04 03/01/18 00:37 Tylenol - PO 02/28/18 23:05 650 mg ONCE ONE Administration Medical Decision Making - Medical Decision Making 03/01/18 00:55 A/P: 72-year-old woman for evaluation of chronic chest pain Labs, EKG, Tylenol, reassess 03/01/18 03:17 pt is pain free after Tylenol. Ambulatory around ED Laboratory testing is unremarkable. EKG is unchanged from previous EKGs. I will discharge the patient home to follow-up with her primary doctor for musculoskeletal chest pain. *DC/Admit/Observation/Transfer Diagnosis at time of Disposition: Atypical chest pain - Discharge Dispostion Disposition: HOME Condition at time of disposition: Stable Decision to Admit order: No - Referrals Referrals: Waldo Mabry MD [Primary Care Provider] - - Patient Instructions Additional Instructions: Take Tylenol for your pain. Follow-up with her primary doctor for reevaluation. Return to the ER for any worsening symptoms or any concerns. Anastasiya Tylenol para tu dolor. Seguimiento con perla ico de gosiara para perla reevaluacin. Regrese a la leah de emergencias por cualquier empeoramiento de los sntomas o inquietudes. - Post Discharge Activity
[2018-03-01 02:10] LABS: BASO % 0.6 % (0-2.0); EOS % 5.2 % (0-4.5); HEMATOCRIT 32.4 % (32.4-45.2); HEMOGLOBIN 10.5 GM/dL (10.7-15.3); LYMPH % 22.9 % (8-40); MCH 23.7 pg (25.7-33.7); MCHC 32.5 g/dl (32.0-36.0); MEAN CELL VOLUME 72.9 fl (80-96); MEAN PLT VOLUME 7.1 fl (7.5-11.1); MONO % 13.9 % (3.8-10.2); NEUT % 57.4 % (42.8-82.8); PLATELET COUNT 384 K/MM3 (134-434); RBC 4.45 M/mm3 (3.60-5.2); RDW 18.6 % (11.6-15.6); WHITE BLOOD COUNT 4.5 K/mm3 (4.0-10.0)
[2018-03-01 02:29] LABS: ANION GAP 3 MMOL/L (8-16); BLOOD UREA NITROGEN 14 mg/dL (7-18); CALCIUM 9.2 mg/dL (8.5-10.1); CHLORIDE 104 mmol/L (98-107); CO2 30 mmol/L (21-32); CREATININE 0.7 mg/dL (0.55-1.3); GLUCOSE,RANDOM 124 mg/dL (74-106); POTASSIUM 4.8 mmol/L (3.5-5.1); SODIUM 138 mmol/L (136-145)
--- NOTE | 2018-03-01 11:57 | EKG ---
Test Reason : Blood Pressure : / mmHG Vent. Rate : 068 BPM Atrial Rate : 068 BPM P-R Int : 148 ms QRS Dur : 080 ms QT Int : 398 ms P-R-T Axes : 001 -12 002 degrees QTc Int : 423 ms NORMAL SINUS RHYTHM MINIMAL VOLTAGE CRITERIA FOR LVH, MAY BE NORMAL VARIANT BORDERLINE ECG WHEN COMPARED WITH ECG OF 27-FEB-2018 02:18, NO SIGNIFICANT CHANGE WAS FOUND Confirmed by JOSE SEVILLA, TERENCE ([id number]) on 03/01/2018 11:57:03 AM Referred By: Confirmed By:TERENCE GARCIA MD
--- NOTE | 2018-04-06 11:46 | EKG ---
Test Reason : Blood Pressure : / mmHG Vent. Rate : 075 BPM Atrial Rate : 075 BPM P-R Int : 140 ms QRS Dur : 070 ms QT Int : 384 ms P-R-T Axes : 035 016 046 degrees QTc Int : 428 ms NORMAL SINUS RHYTHM WHEN COMPARED WITH ECG OF 27-FEB-2018 02:18, NO SIGNIFICANT CHANGE WAS FOUND Confirmed by LARA SARMIENTO MD ([id number]) on 04/06/2018 11:46:00 AM Referred By: Confirmed By:LARA SARMIENTO MD
== END 2018-03-01 04:11 | disposition home or self-care (01) ==
LOC: JER 18:25
DX: R07.89 Other chest pain (principal); E11.9 Type 2 diabetes mellitus without complications; I10 Essential (primary) hypertension; F41.8 Other specified anxiety disorders; K21.9 Gastro-esophageal reflux disease without esophagitis; Z86.73 Personal history of transient ischemic attack (TIA), and cerebral infarction without residual deficits
CPT/HCPCS: 36415; 80048; 82550; 84484; 85025; 93005; 93010; 99281-25

== ENCOUNTER 2018-03-03 00:48 | Emergency (ER) | payer OTHER ==
--- NOTE | 2018-03-03 01:23 | PDOC ---
History of Present Illness - General Stated Complaint: CHEST PAIN Time Seen by Provider: 03/03/18 01:22 History Source: Patient - History of Present Illness Initial Comments: 03/03/18 04:32 72-year-old female with a history of NIDDM, hypertension, COPD, hyperlipidemia, CVA, seizures, GERD, chronic left breast pain, meningioma status post resection presents to the emergency department complaining of inability to sleep. Patient states she is afraid to be home alone and is having right sided chest discomfort. Pain is exacerbated on deep inspiration and touch and alleviated at rest. Patient states she is afraid to be at home and decided to come to the ER. Patient denies fever, chills, headache, dizziness, lightheadedness, facial pains , neck pain/stiffness, back pains, Past History - Past Medical History Allergies/Adverse Reactions: Allergies Allergy/AdvReac Type Severity Reaction Status Date / Time aspirin Allergy Severe "NERVOUS" Verified 02/19/18 20:52 morphine Allergy Severe "ANXIETY-DE Verified 02/19/18 20:52 SPERATION" Home Medications: Ambulatory Orders Amlodipine Besylate 5 mg PO DAILY 11/06/17 Divalproex Sodium [Depakote] 500 mg PO BID 11/06/17 Famotidine 20 mg PO BID 11/06/17 Lisinopril [Prinivil] 5 mg PO DAILY #30 tablet 11/07/17 Anemia: Yes Asthma: No Cancer: No Cardiac Disorders: Yes (Chest pain) 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, baseline confusion and dizziness) COPD: Yes CHF: No DVT: No Dementia: No Diabetes: Yes GI Disorders: Yes (gerd, gastric ulcer, dysphagia) Disorders: Yes (kidney stone in the past) HTN: Yes Hypercholesterolemia: Yes Liver Disease: No Psychiatric Problems: Yes (ANXIETY DEPRESSION) Seizures: Yes (S/P craniotomy for benign tumor - on Depakote for seizure prophylaxis) Thyroid Disease: No - Surgical History Abdominal Surgery: Yes Appendectomy: No Cardiac Surgery: No Cholecystectomy: Yes Lung Surgery: No Neurologic Surgery: Yes (removal left meningioma, craniotomy) Orthopedic Surgery: Yes (bilat knee replacement) - Immunization History Td Vaccination: Yes TDAP Vaccination: No Immunization Up to Date: Yes - Suicide/Smoking/Psychosocial Hx Smoking Status: No Smoking History: Never smoked Have you smoked in the past 12 months: No Number of Cigarettes Smoked Daily: 0 Cigars Per Day: 0 Hx Alcohol Use: No Drug/Substance Use Hx: No Substance Use Type: None Hx Substance Use Treatment: No Review of Systems - Review of Systems Able to Perform ROS?: Yes Comments:: 03/03/18 04:34 CONSTITUTIONAL: +insomnia Absent: fever, chills, diaphoresis, generalized weakness, malaise, loss of appetite HEENT: Absent: rhinorrhea, nasal congestion, throat pain, throat swelling, difficulty swallowing, mouth swelling, ear pain, eye pain, visual Changes CARDIOVASCULAR: +Right sided cp Absent: loss of consciousness, palpitations, irregular heart rate, peripheral edema RESPIRATORY: Absent: cough, shortness of breath, dyspnea with exertion, orthopnea, wheezing, stridor, hemoptysis GASTROINTESTINAL: Absent: abdominal pain, abdominal distension, nausea, vomiting, diarrhea, constipation, melena, hematochezia GENITOURINARY: Absent: dysuria, frequency, urgency, hesitancy, hematuria, flank pain, genital pain MUSCULOSKELETAL: Absent: myalgia, arthralgia, joint swelling SKIN: Absent: rash, itching, pallor HEMATOLOGIC/IMMUNOLOGIC: Absent: easy bleeding, easy bruising, lymphadenopathy, frequent infections ENDOCRINE: Absent: unexplained weight gain, unexplained weight loss, heat intolerance, cold intolerance NEUROLOGIC: Absent: headache, focal weakness or paresthesias, dizziness, unsteady gait, seizure, mental status changes, bladder or bowel incontinence PSYCHIATRIC: Absent: anxiety, depression, suicidal or homicidal ideation, hallucinations. Is the patient limited Danish proficient: No *Physical Exam - Physical Exam Comments: 03/03/18 04:34 GENERAL: Well developed, well nourished. Awake and alert. No acute distress. HEENT: Normocephalic, atraumatic. PERRLA, EOMI. No conjunctival pallor. Sclera are non- icteric. Moist mucous membranes. Oropharynx is clear. NECK: Supple. Full ROM. No JVD. Carotid pulses 2+ and symmetric, without bruits. No thyromegaly. No lymphadenopathy. CARDIOVASCULAR: Regular rate and rhythm. No murmurs, rubs, or gallops. Distal pulses are 2+ and symmetric. PULMONARY: No evidence of respiratory distress. Lungs clear to auscultation bilaterally. No wheezing, rales or rhonchi. ABDOMINAL: Soft. Non-tender. Non-distended. No rebound or guarding. No organomegaly. Normoactive bowel sounds. MUSCULOSKELETAL Normal range of motion at all joints. No bony deformities or tenderness. No CVA tenderness. EXTREMITIES: No cyanosis. No clubbing. No edema. No calf tenderness. SKIN: Warm and dry. Normal capillary refill. No rashes. No jaundice. NEUROLOGICAL: Alert, awake, appropriate. Cranial nerves 2-12 intact. No deficits to light touch and temperature in face, upper extremities and lower extremities. No motor deficits in the in face, upper extremities and lower extremities. Normoreflexic in the upper and lower extremities. Normal speech. Toes are down- going bilaterally. Gait is normal without ataxia. PSYCHIATRIC: Cooperative. Good eye contact. Appropriate mood and affect. Heart Score/ECG Review - History History: Slightly suspicious - Electrocardiogram EKG: Normal - Age Age: >/= 65 - Risk Factors Risk Factors Heart Score: Yes Hx Hypertension, Yes Hx Diabetes - Troponin Troponin: </= normal limit ED Treatment Course - LABORATORY CBC & Chemistry Diagram: 03/03/18 04:29 03/03/18 04:29 *DC/Admit/Observation/Transfer Diagnosis at time of Disposition: Atypical chest pain Insomnia Qualifiers: Insomnia type: other insomnia Qualified Code(s): G47.09 - Other insomnia - Discharge Dispostion Condition at time of disposition: Stable Decision to Admit order: No - Referrals Referrals: Waldo Mabry MD [Primary Care Provider] - - Patient Instructions Printed Discharge Instructions: DI for Atypical Chest Pain, DI for Insomnia Additional Instructions: Rest Follow-up with your physician You were given Tylenol for your chronic chest pain which helped. 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 Recibi Tylenol en el departamento de emergencias por perla dolor crnico en el pecho que le ayud. Regrese al departamento de emergencias por sntomas severos / persistentes o que empeoren. - Post Discharge Activity
[2018-03-03] MEDS ORDERED: ACETAMINOPHEN 325 MG TABLET (FP) PO ONE (01:24)
[2018-03-03] MEDS ORDERED: ACETAMINOPHEN 325 MG TABLET (FP) ONE (01:36)
[2018-03-03 02:21] VITALS: BP 128/54; PULSE 85; TEMP 98.7; BMI 26.5
[2018-03-03 04:39] LABS: BASO % 0.7 % (0-2.0); EOS % 3.9 % (0-4.5); HEMATOCRIT 31.8 % (32.4-45.2); HEMOGLOBIN 10.2 GM/dL (10.7-15.3); LYMPH % 23.4 % (8-40); MCH 23.9 pg (25.7-33.7); MEAN CELL VOLUME 74.7 fl (80-96); MEAN PLT VOLUME 7.5 fl (7.5-11.1); MONO % 12.8 % (3.8-10.2); NEUT % 59.2 % (42.8-82.8); PLATELET COUNT 417 K/MM3 (134-434); RBC 4.25 M/mm3 (3.60-5.2); RDW 18.7 % (11.6-15.6); WHITE BLOOD COUNT 5.9 K/mm3 (4.0-10.0)
[2018-03-03 05:31] LABS: ALBUMIN 3.8 g/dl (3.4-5.0); ALK PHOS 176 U/L (45-117); ANION GAP 9 MMOL/L (8-16); BILIRUBIN,TOTAL 0.2 mg/dL (0.2-1); BLOOD UREA NITROGEN 12 mg/dL (7-18); CALCIUM 8.9 mg/dL (8.5-10.1); CHLORIDE 103 mmol/L (98-107); CO2 26 mmol/L (21-32); CREATININE 0.7 mg/dL (0.55-1.3); GLUCOSE,RANDOM 83 mg/dL (74-106); POTASSIUM 4.7 mmol/L (3.5-5.1); SGOT/AST 38 U/L (15-37); SGPT/ALT 51 U/L (13-61); SODIUM 138 mmol/L (136-145); TOT PROT 7.2 g/dl (6.4-8.2)
--- NOTE | 2018-03-04 19:10 | EKG ---
Test Reason : Blood Pressure : / mmHG Vent. Rate : 076 BPM Atrial Rate : 076 BPM P-R Int : 156 ms QRS Dur : 076 ms QT Int : 388 ms P-R-T Axes : 057 019 036 degrees QTc Int : 436 ms NORMAL SINUS RHYTHM NORMAL ECG WHEN COMPARED WITH ECG OF 01-MAR-2018 01:51, T WAVE VARIATION Confirmed by J LUIS POWELL MD ([id number]) on 03/04/2018 7:10:15 PM Referred By: Confirmed By:J LUIS POWELL MD
== END 2018-03-03 06:53 | disposition home or self-care (01) ==
LOC: JER 00:48
DX: R07.9 Chest pain, unspecified (principal); G47.09 Other insomnia; I10 Essential (primary) hypertension; E11.9 Type 2 diabetes mellitus without complications; E78.00 Pure hypercholesterolemia, unspecified; J44.9 Chronic obstructive pulmonary disease, unspecified; N64.4 Mastodynia; K21.9 Gastro-esophageal reflux disease without esophagitis; F41.8 Other specified anxiety disorders; I69.810 Attention and concentration deficit following other cerebrovascular disease; I69.893 Ataxia following other cerebrovascular disease; Z86.011 Personal history of benign neoplasm of the brain; Z86.69 Personal history of other diseases of the nervous system and sense organs; Z96.653 Presence of artificial knee joint, bilateral; Z88.6 Allergy status to analgesic agent; Z88.8 Allergy status to other drugs, medicaments and biological substances
CPT/HCPCS: 36415; 80053; 82550; 84484; 85025; 93005; 93010; 99281-25

== ENCOUNTER 2018-03-04 21:47 | Emergency (ER) | payer OTHER ==
[2018-03-04 23:04] VITALS: BP 137/66; PULSE 88; TEMP 98.9
--- NOTE | 2018-03-05 02:58 | PDOC ---
History of Present Illness - General Chief Complaint: Chest Pain Stated Complaint: CHEST PAIN Time Seen by Provider: 03/05/18 01:16 History Source: Patient Exam Limitations: No Limitations - History of Present Illness Initial Comments: 03/05/18 02:56 Patient is a 52-year-old female with history of DM, HTN, COPD, HLD, CVA, seizure , GERD, chronic left breast pain, meningioma status post resection, complaining of left-sided chest pain for past 2 days. Patient has had several visits to the ED for the same chest pain is 7/10 reproducible. Denies shortness of breath , headache, dizziness. PMD: PMHX: as above PSOCHX: ALL: ASA, Morphine GENERAL/CONSTITUTIONAL: [No fever or chills. No weakness. No weight change.] HEAD, EYES, EARS, NOSE AND THROAT: [No change in vision. No ear pain or discharge. No sore throat.] CARDIOVASCULAR: (+) chronic chest pain, (-) shortness of breath.] RESPIRATORY: [No cough, wheezing, or hemoptysis.] GASTROINTESTINAL: [No nausea, vomiting, diarrhea or constipation. No rectal bleeding.] GENITOURINARY: [No dysuria, frequency, or change in urination.] MUSCULOSKELETAL: [No joint or muscle swelling or pain. No neck or back pain.] SKIN AND BREASTS: [No rash or easy bruising.] NEUROLOGIC: [No headache, vertigo, loss of consciousness, or loss of sensation.] PSYCHIATRIC: (+) depression or anxiety.] ENDOCRINE: [No increased thirst. No abnormal weight change.] HEMATOLOGIC/LYMPHATIC: [No anemia, easy bleeding, or history of blood clots.] ALLERGIC/IMMUNOLOGIC: [No hives or skin allergy. No latex allergy.] GENERAL: [The patient is awake, alert, and fully oriented, in no acute distress. ] HEAD: [Normal with no signs of trauma.] EYES: [Pupils equal, round and reactive to light, extraocular movements intact, sclera anicteric, conjunctiva clear.] ENT: [Ears normal, nares patent, oropharynx clear without exudates. Moist mucous membranes.] NECK: [Normal range of motion, supple without lymphadenopathy, JVD, or masses.] LUNGS: [Breath sounds equal, clear to auscultation bilaterally. No wheezes, and no crackles.] HEART: [Regular rate and rhythm, normal S1 and S2 without murmur, rub, (+) tenderness to the left chest/breast] ABDOMEN: [Soft, nontender, normoactive bowel sounds. No guarding, no rebound. No masses.] EXTREMITIES: [Normal range of motion, no edema. No clubbing or cyanosis. No cords, erythema, or tenderness.] NEUROLOGICAL: [Cranial nerves II through XII grossly intact. Normal speech, normal gait.] PSYCH: [Normal mood, normal affect.] SKIN: [Warm, Dry, normal turgor, no rashes or lesions noted.] Past History - Past Medical History Allergies/Adverse Reactions: Allergies Allergy/AdvReac Type Severity Reaction Status Date / Time aspirin Allergy Severe "NERVOUS" Verified 03/04/18 22:04 morphine Allergy Severe "ANXIETY-DE Verified 03/04/18 22:04 SPERATION" Home Medications: Ambulatory Orders Amlodipine Besylate 5 mg PO DAILY 11/06/17 Divalproex Sodium [Depakote] 500 mg PO BID 11/06/17 Famotidine 20 mg PO BID 11/06/17 Lisinopril [Prinivil] 5 mg PO DAILY #30 tablet 11/07/17 Anemia: Yes Asthma: No Cancer: No Cardiac Disorders: Yes (Chest pain) 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, baseline confusion and dizziness) COPD: Yes CHF: No DVT: No Dementia: No Diabetes: Yes GI Disorders: Yes (gerd, gastric ulcer, dysphagia) Disorders: Yes (kidney stone in the past) HTN: Yes Hypercholesterolemia: Yes Liver Disease: No Psychiatric Problems: Yes (ANXIETY DEPRESSION) Seizures: Yes (S/P craniotomy for benign tumor - on Depakote for seizure prophylaxis) Thyroid Disease: No - Surgical History Abdominal Surgery: Yes Appendectomy: No Cardiac Surgery: No Cholecystectomy: Yes Lung Surgery: No Neurologic Surgery: Yes (removal left meningioma, craniotomy) Orthopedic Surgery: Yes (bilat knee replacement) - Immunization History Td Vaccination: Yes TDAP Vaccination: No Immunization Up to Date: Yes - Suicide/Smoking/Psychosocial Hx Smoking Status: No Smoking History: Never smoked Have you smoked in the past 12 months: No Number of Cigarettes Smoked Daily: 0 Cigars Per Day: 0 Hx Alcohol Use: No Drug/Substance Use Hx: No Substance Use Type: None Hx Substance Use Treatment: No Cardiac Specific PMH - Complaint Specific PMHX Pacemaker: No *Physical Exam - Vital Signs Last Vital Signs Temp Pulse Resp BP Pulse Ox 98.9 F 88 18 137/66 97 03/04/18 22:04 03/04/18 22:04 03/04/18 22:04 03/04/18 22:04 03/04/18 22:04 Moderate Sedation - Procedure Monitoring Vital Signs: Procedure Monitoring Vital Signs Temperature 98.9 F 03/04/18 22:04 Pulse Rate 88 03/04/18 22:04 Respiratory Rate 18 03/04/18 22:04 Blood Pressure 137/66 03/04/18 22:04 O2 Sat by Pulse Oximetry (%) 97 03/04/18 22:04 ED Treatment Course - ADDITIONAL ORDERS Additional order review: Laboratory Results 03/05/18 03:15 Creatine Kinase 37 Troponin I < 0.02 - Medications Given in the ED: ED Medications Discontinued Medications Generic Name Dose Route Start Last Admin Trade Name Freq PRN Reason Stop Dose Admin Acetaminophen 975 mg 03/05/18 02:59 03/05/18 03:18 Tylenol - PO 03/05/18 03:00 975 mg ONCE ONE Administration Medical Decision Making - Medical Decision Making 03/05/18 02:56 Patient is a 52-year-old female with history of DM, HTN, COPD, HLD, CVA, seizure , GERD, chronic left breast pain, meningioma status post resection, complaining of left-sided chest pain for past 2 days. Patient has had several visits to the ED for the same chest pain is 7/10 reproducible. Denies shortness of breath , headache, dizziness. This chest pain is reproducible and chronic will give tylenol ekg and trop Trop neg EKG SR rate 83, LAD, (-) ST-T wave changes I discussed the physical exam findings, ancillary test results and final diagnoses with the patient. I answered all of the patient's questions. The patient was satisfied with the care received and felt comfortable with the discharge plan and treatment plan. The Patient agrees to follow up with the primary care physician within 24-72 hours. *DC/Admit/Observation/Transfer Diagnosis at time of Disposition: Musculoskeletal chest pain, Breast pain, left - Discharge Dispostion Disposition: HOME Condition at time of disposition: Stable - Referrals - Patient Instructions Printed Discharge Instructions: DI for Breast Pain (Mastalgia) Additional Instructions: Your Discharge Instructions: You must call primary care physician within 24 hours to arrange follow-up. Return to the Emergency Department with any new, persistent or worsening symptoms, for fever, chills, SOB, dizziness or any other concerning changes that may occur. You must follow up with Primary care doctor about this breast pain. - Post Discharge Activity
[2018-03-05] MEDS ORDERED: ACETAMINOPHEN 500 MG TABLET (FP) PO ONE (02:59)
[2018-03-05] MEDS ORDERED: ACETAMINOPHEN 325 MG TABLET (FP) ONE (03:08)
--- NOTE | 2018-03-05 11:08 | EKG ---
Test Reason : Blood Pressure : / mmHG Vent. Rate : 083 BPM Atrial Rate : 083 BPM P-R Int : 164 ms QRS Dur : 074 ms QT Int : 366 ms P-R-T Axes : 042 -05 009 degrees QTc Int : 430 ms NORMAL SINUS RHYTHM NORMAL ECG WHEN COMPARED WITH ECG OF 03-MAR-2018 06:12, NO SIGNIFICANT CHANGE WAS FOUND Confirmed by J LUIS POWELL MD ([id number]) on 03/05/2018 11:08:18 AM Referred By: Confirmed By:J LUIS POWELL MD
== END 2018-03-05 06:28 | disposition home or self-care (01) ==
LOC: JER 21:47
DX: R07.9 Chest pain, unspecified (principal); N64.4 Mastodynia; I10 Essential (primary) hypertension; E11.9 Type 2 diabetes mellitus without complications; D64.9 Anemia, unspecified; J44.9 Chronic obstructive pulmonary disease, unspecified; E78.00 Pure hypercholesterolemia, unspecified; F41.8 Other specified anxiety disorders; F32.9 Major depressive disorder, single episode, unspecified; Z86.011 Personal history of benign neoplasm of the brain; I69.810 Attention and concentration deficit following other cerebrovascular disease; I69.893 Ataxia following other cerebrovascular disease; Z96.653 Presence of artificial knee joint, bilateral; Z87.19 Personal history of other diseases of the digestive system; Z87.442 Personal history of urinary calculi
CPT/HCPCS: 36415; 82550; 84484; 93005; 93010; 99282-25

== ENCOUNTER 2018-03-05 18:25 | Emergency (ER) | payer OTHER ==
[2018-03-05 18:38] VITALS: BP 157/75; PULSE 89; TEMP 98; BMI 29.2
[2018-03-05] MEDS ORDERED: ACETAMINOPHEN 325 MG TABLET (FP) PO ONE (18:40)
--- NOTE | 2018-03-05 18:41 | PDOC ---
Rapid Medical Evaluation Chief Complaint: Pain Time Seen by Provider: 03/05/18 18:37 Medical Evaluation: Allergies Allergy/AdvReac Type Severity Reaction Status Date / Time aspirin Allergy Severe "NERVOUS" Verified 03/05/18 18:37 morphine Allergy Severe "ANXIETY-DE Verified 03/05/18 18:37 SPERATION" 03/05/18 18:37 Pt presents to the ED with chest pain over her left chest. Pt became shortness of breath while walking to the waiting room Exam: NAD, 98% on room air Orders: EKG Pt to proceed to ED for further evaluation Discharge Disposition - Diagnosis Chest pain - Referrals - Patient Instructions - Post Discharge Activity
--- NOTE | 2018-03-05 19:18 | PDOC ---
History of Present Illness - General Chief Complaint: Pain Stated Complaint: CHEST PAIN Time Seen by Provider: 03/05/18 18:37 History Source: Patient - History of Present Illness Initial Comments: 03/05/18 19:45 72-year-old female seen in the ER early this morning complaining of left chest/ breast pain reproducible in nature. Patient had cardiac labs EKG and Tylenol and was discharged this morning. Patient returns and complaints of left chest pain/breast pain today patient reports that her pain is several times in the day , previous workups have been negative. Patient is requesting Tylenol and sandwich. Multiple visits to this ER for same complaint and multiple negative workups. patient reports that she has an appointment with cardiology and neurology coming up PMHX: HTN, DM, HLD, COPD, CVA, seizures, chronic left breast pain, GERD, meningioma s/p resection Past History - Past Medical History Allergies/Adverse Reactions: Allergies Allergy/AdvReac Type Severity Reaction Status Date / Time aspirin Allergy Severe "NERVOUS" Verified 03/05/18 18:37 morphine Allergy Severe "ANXIETY-DE Verified 03/05/18 18:37 SPERATION" Home Medications: Ambulatory Orders Amlodipine Besylate 5 mg PO DAILY 11/06/17 Divalproex Sodium [Depakote] 500 mg PO BID 11/06/17 Famotidine 20 mg PO BID 11/06/17 Lisinopril [Prinivil] 5 mg PO DAILY #30 tablet 11/07/17 Anemia: Yes Asthma: No Cancer: No Cardiac Disorders: Yes (Chest pain) 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, baseline confusion and dizziness) COPD: Yes CHF: No DVT: No Dementia: No Diabetes: Yes GI Disorders: Yes (gerd, gastric ulcer, dysphagia) Disorders: Yes (kidney stone in the past) HTN: Yes Hypercholesterolemia: Yes Liver Disease: No Psychiatric Problems: Yes (ANXIETY DEPRESSION) Seizures: Yes (S/P craniotomy for benign tumor - on Depakote for seizure prophylaxis) Thyroid Disease: No - Surgical History Abdominal Surgery: Yes Appendectomy: No Cardiac Surgery: No Cholecystectomy: Yes Lung Surgery: No Neurologic Surgery: Yes (removal left meningioma, craniotomy) Orthopedic Surgery: Yes (bilat knee replacement) - Immunization History Td Vaccination: Yes TDAP Vaccination: No Immunization Up to Date: Yes - Suicide/Smoking/Psychosocial Hx Smoking Status: No Smoking History: Never smoked Have you smoked in the past 12 months: No Number of Cigarettes Smoked Daily: 0 Cigars Per Day: 0 Hx Alcohol Use: No Drug/Substance Use Hx: No Substance Use Type: None Hx Substance Use Treatment: No Review of Systems - Review of Systems Able to Perform ROS?: Yes Is the patient limited Portuguese proficient: No Constitutional: No: Symptoms Reported, See HPI, Chills, Diaphoresis, Fever, Loss of Appetite, Malaise, Night Sweats, Weakness, Weight Stable, Unintentional Wgt. Loss, Unexplained wgt Loss, Other Respiratory: No: Symptoms reported, See HPI, Cough, Orthopnea, Shortness of Breath, SOB with Exertion, SOB at Rest, Stridor, Wheezing, Productive cough, Hemoptysis, Other Cardiac (ROS): Yes: Chest Pain. No: Symptoms Reported, See HPI, Edema, Irregular Heart Rate, Lightheadedness, Palpitations, Syncope, Chest Tightness, Other ABD/GI: No: Symptoms Reported, See HPI, Abdominal Distended, Abd. Pain w/ defecation, Blood Streaked Bowels, Constipated, Diarrhea, Difficulty Swallowing , Nausea, Poor Appetite, Poor Fluid Intake, Rectal Bleeding, Vomiting, Indigestion, Abdominal cramping, Tarry Stools, Other Musculoskeletal: No: Symptoms Reported, See HPI, Back Pain, Gout, Joint Pain, Joint Swelling, Muscle Pain, Muscle Weakness, Neck Pain, Joint Stiffness, Other Integumentary: No: Symptoms Reported, See HPI, Bruising, Change in Color, Change in Hair/Nails, Dryness, Erythema, Flushing, Lesions, Lumps, Pallor, Pruritus, Rash, Sweating, Other Neurological: No: Symptoms reported, See HPI, Headache, Numbness, Paresthesia, Pre-Existing Deficit, Seizure, Tingling, Tremors, Weakness, Unsteady Gait, Ataxia, Dizziness, Other *Physical Exam - Vital Signs Last Vital Signs Temp Pulse Resp BP Pulse Ox 98.0 F 89 20 157/75 98 03/05/18 18:37 03/05/18 18:37 03/05/18 18:37 03/05/18 18:37 03/05/18 18:37 - Physical Exam General Appearance: Yes: Appropriately Dressed (lesser Tylen) Respiratory/Chest: positive: Chest Tender (left sided chest pain), Lungs Clear, Normal Breath Sounds Cardiovascular: positive: Regular Rhythm, Regular Rate Gastrointestinal/Abdominal: positive: Normal Bowel Sounds, Soft. negative: Tender Musculoskeletal: positive: Normal Inspection Extremity: positive: Normal Capillary Refill, Normal Inspection, Normal Range of Motion Integumentary: positive: Normal Color, Dry, Warm Neurologic: positive: escrow assistant II-XII NML intact, Fully Oriented, Alert, Normal Mood/ Affect, Normal Response, Motor Strength 5/5 Moderate Sedation - Procedure Monitoring Vital Signs: Procedure Monitoring Vital Signs Temperature 98.0 F 03/05/18 18:37 Pulse Rate 89 03/05/18 18:37 Respiratory Rate 20 03/05/18 18:37 Blood Pressure 157/75 03/05/18 18:37 O2 Sat by Pulse Oximetry (%) 98 03/05/18 18:37 Heart Score/ECG Review - ECG Intrepretation Rhythm: Regular Rhythm Comment:: 03/05/18 20:05 NSR: 74 bpm Medical Decision Making - Medical Decision Making 03/05/18 19:51 A: chest pain P: EKG tylenol *DC/Admit/Observation/Transfer Diagnosis at time of Disposition: Chest pain Qualifiers: Chest pain type: unspecified Qualified Code(s): R07.9 - Chest pain, unspecified - Discharge Dispostion Disposition: HOME - Referrals Referrals: Waldo Mabry MD [Primary Care Provider] - Call tomorrow - Patient Instructions Printed Discharge Instructions: DI for Atypical Chest Pain Additional Instructions: please follow up with your mill tender warm up. Additional Instructions: * Please call your personal physician to report your Emergency Department visit and to report your progress, if any. * If there is no improvement in symptoms in 2 days call your physician. * Return to the Emergency Department for any worsening symptoms. - Post Discharge Activity
[2018-03-05] MEDS ORDERED: ACETAMINOPHEN 325 MG TABLET (FP) ONE (19:30)
--- NOTE | 2018-03-05 19:39 | PDOC ---
*Physical Exam - Vital Signs Last Vital Signs Temp Pulse Resp BP Pulse Ox 98.0 F 89 20 157/75 98 03/05/18 18:37 03/05/18 18:37 03/05/18 18:37 03/05/18 18:37 03/05/18 18:37 ED Treatment Course - Medications Given in the ED: ED Medications Discontinued Medications Generic Name Dose Route Start Last Admin Trade Name Freq PRN Reason Stop Dose Admin Acetaminophen 650 mg 03/05/18 18:40 03/05/18 19:29 Tylenol - PO 03/05/18 18:41 650 mg ONCE ONE Administration Medical Decision Making - Medical Decision Making 03/05/18 19:39 Patient seen by the advanced practice provider under my direct supervision. Ancillary testing reviewed as necessary. I agree with plan as outlined by the advanced practice provider. *DC/Admit/Observation/Transfer Diagnosis at time of Disposition: Chest pain - Referrals Referrals: Waldo Mabry MD [Primary Care Provider] - - Patient Instructions - Post Discharge Activity
--- NOTE | 2018-03-06 16:43 | EKG ---
Test Reason : Blood Pressure : / mmHG Vent. Rate : 077 BPM Atrial Rate : 077 BPM P-R Int : 166 ms QRS Dur : 086 ms QT Int : 392 ms P-R-T Axes : 041 003 023 degrees QTc Int : 443 ms NORMAL SINUS RHYTHM NORMAL ECG WHEN COMPARED WITH ECG OF 05-MAR-2018 03:10, NO SIGNIFICANT CHANGE WAS FOUND Confirmed by MD AVILA MOYSES ([id number]) on 03/06/2018 4:42:24 PM Referred By: Confirmed By:MARK AVILA MD
== END 2018-03-05 20:29 | disposition home or self-care (01) ==
LOC: JER 18:25
DX: R07.9 Chest pain, unspecified (principal); I10 Essential (primary) hypertension; E11.9 Type 2 diabetes mellitus without complications; E78.00 Pure hypercholesterolemia, unspecified; J45.909 Unspecified asthma, uncomplicated; F41.8 Other specified anxiety disorders; F32.9 Major depressive disorder, single episode, unspecified; Z86.2 Personal history of diseases of the blood and blood-forming organs and certain disorders involving the immune mechanism; Z86.011 Personal history of benign neoplasm of the brain; Z96.653 Presence of artificial knee joint, bilateral; Z86.69 Personal history of other diseases of the nervous system and sense organs; I69.810 Attention and concentration deficit following other cerebrovascular disease; I69.893 Ataxia following other cerebrovascular disease; Z87.19 Personal history of other diseases of the digestive system; Z87.442 Personal history of urinary calculi
CPT/HCPCS: 93005; 93010; 99282-25

== ENCOUNTER 2018-03-06 08:04 | Emergency (ER) | payer OTHER ==
[2018-03-06 08:19] VITALS: TEMP 98.5; BMI 26.4
[2018-03-06] MEDS ORDERED: ACETAMINOPHEN 325 MG TABLET (FP) PO ONE (08:30)
--- NOTE | 2018-03-06 08:34 | PDOC ---
History of Present Illness - General Chief Complaint: Cold Symptoms Stated Complaint: CHEST PAIN Time Seen by Provider: 03/06/18 08:07 History Source: Patient Past History - Past Medical History Allergies/Adverse Reactions: Allergies Allergy/AdvReac Type Severity Reaction Status Date / Time aspirin Allergy Severe "NERVOUS" Verified 03/05/18 18:37 morphine Allergy Severe "ANXIETY-DE Verified 03/05/18 18:37 SPERATION" Home Medications: Ambulatory Orders Amlodipine Besylate 5 mg PO DAILY 11/06/17 Divalproex Sodium [Depakote] 500 mg PO BID 11/06/17 Famotidine 20 mg PO BID 11/06/17 Lisinopril [Prinivil] 5 mg PO DAILY #30 tablet 11/07/17 Anemia: Yes Asthma: No Cancer: No Cardiac Disorders: Yes (Chest pain) 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, baseline confusion and dizziness) COPD: Yes CHF: No DVT: No Dementia: No Diabetes: Yes GI Disorders: Yes (gerd, gastric ulcer, dysphagia) Disorders: Yes (kidney stone in the past) HTN: Yes Hypercholesterolemia: Yes Liver Disease: No Psychiatric Problems: Yes (ANXIETY DEPRESSION) Seizures: Yes (S/P craniotomy for benign tumor - on Depakote for seizure prophylaxis) Thyroid Disease: No - Surgical History Abdominal Surgery: Yes Appendectomy: No Cardiac Surgery: No Cholecystectomy: Yes Lung Surgery: No Neurologic Surgery: Yes (removal left meningioma, craniotomy) Orthopedic Surgery: Yes (bilat knee replacement) - Immunization History Td Vaccination: Yes TDAP Vaccination: No Immunization Up to Date: Yes - Suicide/Smoking/Psychosocial Hx Smoking Status: No Smoking History: Never smoked Have you smoked in the past 12 months: No Number of Cigarettes Smoked Daily: 0 Cigars Per Day: 0 Hx Alcohol Use: No Drug/Substance Use Hx: No Substance Use Type: None Hx Substance Use Treatment: No Cardiac Specific PMH - Complaint Specific PMHX Pacemaker: No Review of Systems - Review of Systems Constitutional: No: Fever Respiratory: No: Cough, Shortness of Breath Cardiac (ROS): Yes: Chest Pain. No: Lightheadedness, Palpitations, Syncope *Physical Exam - Vital Signs Last Vital Signs Temp Pulse Resp BP Pulse Ox 98.5 F 89 18 157/85 100 03/06/18 08:18 03/06/18 08:18 03/06/18 08:18 03/06/18 08:18 03/06/18 08:18 - Physical Exam General Appearance: Yes: Appropriately Dressed. No: Apparent Distress HEENT: positive: Normal Voice Neck: positive: Supple Respiratory/Chest: positive: Lungs Clear, Normal Breath Sounds. negative: Respiratory Distress Cardiovascular: positive: Regular Rate, S1, S2 Gastrointestinal/Abdominal: positive: Soft. negative: Tender Integumentary: positive: Dry, Warm Neurologic: positive: Fully Oriented, Alert, Normal Mood/Affect Moderate Sedation - Procedure Monitoring Vital Signs: Procedure Monitoring Vital Signs Temperature 98.5 F 03/06/18 08:18 Pulse Rate 89 03/06/18 08:18 Respiratory Rate 18 03/06/18 08:18 Blood Pressure 157/85 03/06/18 08:18 O2 Sat by Pulse Oximetry (%) 100 03/06/18 08:18 Medical Decision Making - Medical Decision Making 03/06/18 08:31 72-year-old female ,very well known to ED staff 2/2 numerous ED visits for chest pain. Patient last seen in ED yesterday morning and last night with unremarkable workup. Usually requests tylenol for her pain. Patient does have a history of hypertension, hyperlipidemia, diabetes, COPD, CVA, seizure, and GERD. Patient states since her discharge last night, did not physically leaves the ER, but spent the night in the waiting room for unclear reason. Complaining of her usual chest pain and wants tylenol. Patient well-appearing and stable here, will need social work faculty member to assist with dispo. Will not rpt ekg/ labs at this time as multiple neg w/u in ED yesterday *DC/Admit/Observation/Transfer Diagnosis at time of Disposition: Atypical chest pain - Discharge Dispostion Disposition: HOME Condition at time of disposition: Good - Referrals Referrals: Waldo Mabry MD [Primary Care Provider] - - Patient Instructions Additional Instructions: Please follow-up with your PMD and your button tacker - Post Discharge Activity
[2018-03-06] MEDS ORDERED: ACETAMINOPHEN 325 MG TABLET (FP) ONE (10:35)
[2018-03-06 14:20] VITALS: BP 145/74; PULSE 84
== END 2018-03-06 13:10 | disposition home or self-care (01) ==
LOC: JER 08:04
DX: R07.9 Chest pain, unspecified (principal); I10 Essential (primary) hypertension; E78.00 Pure hypercholesterolemia, unspecified; E11.9 Type 2 diabetes mellitus without complications; K21.9 Gastro-esophageal reflux disease without esophagitis; F41.8 Other specified anxiety disorders; F32.9 Major depressive disorder, single episode, unspecified; J44.9 Chronic obstructive pulmonary disease, unspecified; Z86.011 Personal history of benign neoplasm of the brain; Z87.19 Personal history of other diseases of the digestive system; Z96.653 Presence of artificial knee joint, bilateral; I69.810 Attention and concentration deficit following other cerebrovascular disease; I69.893 Ataxia following other cerebrovascular disease; Z88.8 Allergy status to other drugs, medicaments and biological substances
CPT/HCPCS: 99281-25

== ENCOUNTER 2018-03-08 14:35 | Emergency (ER) | payer OTHER ==
--- NOTE | 2018-03-08 14:42 | PDOC ---
Rapid Medical Evaluation Time Seen by Provider: 03/08/18 14:39 Medical Evaluation: Allergies Allergy/AdvReac Type Severity Reaction Status Date / Time aspirin Allergy Severe "NERVOUS" Verified 03/05/18 18:37 morphine Allergy Severe "ANXIETY-DE Verified 03/05/18 18:37 SPERATION" 03/08/18 14:41 I performed a brief in-person evaluation of this patient. Chief complaint: Chest pain Pertinent physical exam findings: Anxious, tachypneic. Clear lungs. I have ordered the following: EKG, CXR, labs. Patient will proceed to the ED for further evaluation.
[2018-03-08 14:46] VITALS: BP 133/57; PULSE 77; TEMP 98; BMI 26.4
[2018-03-08 15:33] LABS: BASO % 0.6 % (0-2.0); EOS % 1.8 % (0-4.5); HEMATOCRIT 34.5 % (32.4-45.2); HEMOGLOBIN 10.9 GM/dL (10.7-15.3); LYMPH % 18.6 % (8-40); MCH 24.1 pg (25.7-33.7); MCHC 31.6 g/dl (32.0-36.0); MEAN CELL VOLUME 76.2 fl (80-96); MEAN PLT VOLUME 7.4 fl (7.5-11.1); MONO % 10.6 % (3.8-10.2); NEUT % 68.4 % (42.8-82.8); PLATELET COUNT 375 K/MM3 (134-434); RBC 4.53 M/mm3 (3.60-5.2); RDW 19.7 % (11.6-15.6); WHITE BLOOD COUNT 6.5 K/mm3 (4.0-10.0)
[2018-03-08 15:42] LABS: INR 0.96 (0.83-1.09); PROTHROMBIN TIME (PATIENT) 11.3 SEC (9.7-13.0)
[2018-03-08] MEDS ORDERED: ACETAMINOPHEN 500 MG TABLET (FP) PO ONE (16:07)
[2018-03-08] MEDS ORDERED: ACETAMINOPHEN 325 MG TABLET (FP) ONE (16:18)
--- NOTE | 2018-03-08 16:43 | PDOC ---
History of Present Illness - General Chief Complaint: Chest Pain Stated Complaint: CHEST PAIN Time Seen by Provider: 03/08/18 14:39 History Source: Patient Exam Limitations: No Limitations - History of Present Illness Initial Comments: 03/08/18 16:42 72-year-old female presents to ED with complaints of left-sided chest pain worsened with movement and deep breathing since last night. Patient states took nothing for the above and decided come to the ER today. Patient denies palpitations, shortness of breath, fever, chills or cough. Presenting Symptoms: Chest Pain Timing/Duration: reports: intermittent Severity/Quality: reports: moderate, aching Location: reports: substernal (left) Chest Pain Radiation: reports: no radiation Activities at Onset: reports: exertion Prior Chest Pain/Cardiac Workup: reports: Other Modifying Factors: improves with: movement Nitro Today/Relief: Yes: no nitro taken today Aspirin Received prior to arrival (Core Measure): Yes: no aspirin today Beta Jessika indicated at this time? (Core Measure): No Associated Symptoms: Yes: Chest Pain/pressure Past History - Travel Traveled outside of the country in the last 30 days: No Close contact w/someone who was outside of country & ill: No - Past Medical History Allergies/Adverse Reactions: Allergies Allergy/AdvReac Type Severity Reaction Status Date / Time aspirin Allergy Severe "NERVOUS" Verified 03/05/18 18:37 morphine Allergy Severe "ANXIETY-DE Verified 03/05/18 18:37 SPERATION" Home Medications: Ambulatory Orders Amlodipine Besylate 5 mg PO DAILY 11/06/17 Divalproex Sodium [Depakote] 500 mg PO BID 11/06/17 Famotidine 20 mg PO BID 11/06/17 Lisinopril [Prinivil] 5 mg PO DAILY #30 tablet 11/07/17 Anemia: Yes Asthma: No Cancer: No Cardiac Disorders: Yes (Chest pain) 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, baseline confusion and dizziness) COPD: Yes CHF: No DVT: No Dementia: No Diabetes: Yes GI Disorders: Yes (gerd, gastric ulcer, dysphagia) Disorders: Yes (kidney stone in the past) HTN: Yes Hypercholesterolemia: Yes Liver Disease: No Psychiatric Problems: Yes (ANXIETY DEPRESSION) Seizures: Yes (S/P craniotomy for benign tumor - on Depakote for seizure prophylaxis) Thyroid Disease: No - Surgical History Abdominal Surgery: Yes Appendectomy: No Cardiac Surgery: No Cholecystectomy: Yes Lung Surgery: No Neurologic Surgery: Yes (removal left meningioma, craniotomy) Orthopedic Surgery: Yes (bilat knee replacement) - Immunization History Td Vaccination: Yes TDAP Vaccination: No Immunization Up to Date: Yes - Suicide/Smoking/Psychosocial Hx Smoking Status: No Smoking History: Never smoked Have you smoked in the past 12 months: No Number of Cigarettes Smoked Daily: 0 Cigars Per Day: 0 Information on smoking cessation initiated: No Hx Alcohol Use: No Drug/Substance Use Hx: No Substance Use Type: None Hx Substance Use Treatment: No Patient Lives Alone: Yes Lives with/in: lives alone (has [employer]) Cardiac Specific PMH - Complaint Specific PMHX Pacemaker: No Review of Systems - Review of Systems Able to Perform ROS?: Yes Constitutional: No: Symptoms Reported HEENTM: No: Symptoms Reported Respiratory: No: Symptoms reported Cardiac (ROS): Yes: Chest Pain ABD/GI: No: Symptoms Reported : No: Symptoms Reported Musculoskeletal: Yes: Muscle Pain (chest) Integumentary: No: Symptoms Reported Neurological: No: Symptoms reported Psychiatric: Yes: Anxiety *Physical Exam - Vital Signs Last Vital Signs Temp Pulse Resp BP Pulse Ox 98 F 77 20 133/57 L 99 03/08/18 14:39 03/08/18 14:39 03/08/18 14:39 03/08/18 14:39 03/08/18 14:39 - Physical Exam General Appearance: Yes: Nourished, Appropriately Dressed. No: Apparent Distress Neck: positive: Supple Respiratory/Chest: positive: Chest Tender (left chest wall third intercostal space to 7th intercostal space), Lungs Clear, Normal Breath Sounds. negative: Respiratory Distress, Accessory Muscle Use Gastrointestinal/Abdominal: positive: Soft. negative: Tenderness Integumentary: positive: Normal Color, Warm, Moist Neurologic: positive: Motor Strength 5/5 (ambulatory) Heart Score/ECG Review - ECG Intrepretation Rhythm: Regular Rhythm (rate 81. Normal sinus rhythm. No ST elevation or depression.) Moderate Sedation - Procedure Monitoring Vital Signs: Procedure Monitoring Vital Signs Temperature 98 F 03/08/18 14:39 Pulse Rate 77 03/08/18 14:39 Respiratory Rate 20 03/08/18 14:39 Blood Pressure 133/57 L 03/08/18 14:39 O2 Sat by Pulse Oximetry (%) 99 03/08/18 14:39 ED Treatment Course - LABORATORY CBC & Chemistry Diagram: 03/08/18 15:11 03/08/18 15:11 - ADDITIONAL ORDERS Additional order review: Laboratory Results 03/08/18 03/08/18 15:11 15:11 PT with INR 11.30 INR 0.96 Sodium 135 L Potassium 4.4 Chloride 102 Carbon Dioxide 26 Anion Gap 7 L BUN 16 Creatinine 0.6 Creat Clearance w eGFR > 60 Random Glucose 99 Calcium 8.9 Total Bilirubin 0.2 AST 44 H ALT 51 Alkaline Phosphatase 194 H Creatine Kinase 41 Troponin I < 0.02 Total Protein 7.3 Albumin 3.6 03/08/18 15:11 RBC 4.53 MCV 76.2 L MCHC 31.6 L RDW 19.7 H MPV 7.4 L Neutrophils % 68.4 Lymphocytes % 18.6 D Monocytes % 10.6 H Eosinophils % 1.8 Basophils % 0.6 - Medications Given in the ED: ED Medications Discontinued Medications Generic Name Dose Route Start Last Admin Trade Name Freq PRN Reason Stop Dose Admin Acetaminophen 975 mg 03/08/18 16:07 03/08/18 16:29 Tylenol - PO 03/08/18 16:08 975 mg ONCE ONE Administration Medical Decision Making - Medical Decision Making 03/08/18 16:48 chief complaint: Left-sided chest pain worsened with movement/breathing no meds taken. Exam: reproducible left-sided chest pain Plan: Requesting Tylenol and a sandwich. Patient had labs EKG chest x-ray ordered from rapid medical evaluation which I have reviewed with no significant or acute findings. Patient awaiting results of labs and ordered for Tylenol 03/08/18 17:15 Laboratory Tests 03/08/18 03/08/18 15:11 15:11 WBC 6.5 Hgb 10.9 Hct 34.5 RDW 19.7 H MPV 7.4 L Absolute Neuts (auto) 4.4 Neutrophils % 68.4 Lymphocytes % 18.6 D Monocytes % 10.6 H Sodium 135 L Potassium 4.4 Chloride 102 Carbon Dioxide 26 Anion Gap 7 L BUN 16 Creatinine 0.6 Creat Clearance w eGFR > 60 Random Glucose 99 Calcium 8.9 Total Bilirubin 0.2 AST 44 H ALT 51 Alkaline Phosphatase 194 H Creatine Kinase 41 Troponin I < 0.02 Total Protein 7.3 Albumin 3.6 Patient ate and is ambulatory in the ER. Patient stating mild relief with Tylenol. Plan to discharge home. *DC/Admit/Observation/Transfer Diagnosis at time of Disposition: Atypical chest pain, Musculoskeletal chest pain - Discharge Dispostion Disposition: HOME Condition at time of disposition: Improved - Referrals - Patient Instructions Printed Discharge Instructions: DI for Musculoskeletal Pain Additional Instructions: Please take Tylenol or Motrin for discomfort. Avoid movements that triggered discomfort. - Post Discharge Activity
[2018-03-08 16:47] LABS: ALBUMIN 3.6 g/dl (3.4-5.0); ALK PHOS 194 U/L (45-117); ANION GAP 7 MMOL/L (8-16); BILIRUBIN,TOTAL 0.2 mg/dL (0.2-1); BLOOD UREA NITROGEN 16 mg/dL (7-18); CALCIUM 8.9 mg/dL (8.5-10.1); CHLORIDE 102 mmol/L (98-107); CO2 26 mmol/L (21-32); CREATININE 0.6 mg/dL (0.55-1.3); GLUCOSE,RANDOM 99 mg/dL (74-106); POTASSIUM 4.4 mmol/L (3.5-5.1); SGOT/AST 44 U/L (15-37); SGPT/ALT 51 U/L (13-61); SODIUM 135 mmol/L (136-145); TOT PROT 7.3 g/dl (6.4-8.2)
--- NOTE | 2018-03-09 11:55 | EKG ---
Test Reason : Blood Pressure : / mmHG Vent. Rate : 083 BPM Atrial Rate : 083 BPM P-R Int : 154 ms QRS Dur : 082 ms QT Int : 372 ms P-R-T Axes : 038 000 036 degrees QTc Int : 437 ms NORMAL SINUS RHYTHM NORMAL ECG WHEN COMPARED WITH ECG OF 05-MAR-2018 19:59, NO SIGNIFICANT CHANGE WAS FOUND Confirmed by ANNITA VENTURA MD ([id number]) on 03/09/2018 11:55:03 AM Referred By: Confirmed By:ANNITA VENTURA MD
== END 2018-03-08 18:05 | disposition home or self-care (01) ==
LOC: JER 14:35
DX: R07.89 Other chest pain (principal); I10 Essential (primary) hypertension; E11.9 Type 2 diabetes mellitus without complications; D64.9 Anemia, unspecified; E78.00 Pure hypercholesterolemia, unspecified; F41.8 Other specified anxiety disorders; F32.9 Major depressive disorder, single episode, unspecified; J44.9 Chronic obstructive pulmonary disease, unspecified; I69.810 Attention and concentration deficit following other cerebrovascular disease; I69.893 Ataxia following other cerebrovascular disease; Z86.011 Personal history of benign neoplasm of the brain; Z96.653 Presence of artificial knee joint, bilateral; Z86.69 Personal history of other diseases of the nervous system and sense organs; Z87.442 Personal history of urinary calculi; Z87.19 Personal history of other diseases of the digestive system
CPT/HCPCS: 36415; 71045-TC-FY; 80053; 82550; 84484; 85025; 85610; 93005; 93010; 99281-25

== ENCOUNTER 2018-03-09 22:46 | Emergency (ER) | payer OTHER ==
[2018-03-09 22:55] VITALS: BP 113/51; PULSE 88; TEMP 98.4; BMI 30.9
[2018-03-09] MEDS ORDERED: ACETAMINOPHEN 325 MG TABLET (FP) PO ONE (23:03)
--- NOTE | 2018-03-09 23:03 | PDOC ---
History of Present Illness - General Chief Complaint: Chest Pain Stated Complaint: SOB ANXIETY Time Seen by Provider: 03/09/18 23:02 History Source: Patient, Old Records Exam Limitations: No Limitations - History of Present Illness Initial Comments: 03/09/18 23:02 HISTORY OF PRESENT ILLNESS: This 72-year-old woman well-known to this emergency Department with history of chronic chest pain, CVA, COPD, GERD, PUD, hyperlipidemia, hypertension, seizures who presents emergency department for evaluation of her chronic chest pain and headache. Patient states this is the usual pain for which she seeks medical care. She states she has not taken any medications prior to arrival. She denies any shortness of breath, nausea, vomiting, dizziness, abdominal pain, dysuria, hematuria, rectal bleeding. No recent travel or sick contacts. PAST MEDICAL HISTORY: see HPI SURGICAL HISTORY: See HPI ALLERGIES: ASA, MSO4 REVIEW OF SYSTEMS General/Constitutional: Denies fever or chills. Denies weakness, weight change. HEENT: Denies change in vision. Denies ear pain or discharge. Denies sore throat. Cardiovascular: Left sided chest pain. Denies shortness of breath. Respiratory: Denies cough, wheezing, or hemoptysis. Gastrointestinal: Denies nausea, vomiting, diarrhea or constipation. Denies rectal bleeding. Genitourinary: Denies dysuria, frequency, or change in urination. Musculoskeletal: Denies joint or muscle swelling or pain. Denies neck or back pain. Skin and breasts: Denies rash or easy bruising. Neurologic: Fontal headache. Denies vertigo, loss of consciousness, or loss of sensation. Psychiatric: Denies depression or anxiety. Endocrine: Denies increased thirst. Denies abnormal weight change. Hematologic/Lymphatic: Denies anemia, easy bleeding, or history of blood clots. Allergic/Immunologic: Denies hives or skin allergy. Denies latex allergy. PHYSICAL EXAM General Appearance: Well-appearing, appropriately dressed. No apparent distress , no intoxication. HEENT: EOMI, PERRLA, normal ENT inspection, normal voice, TMs normal, pharynx normal. No conjunctival pallor. No photophobia, scleral icterus. Neck: Supple. Trachea midline. No tenderness, rigidity, carotid bruit, stridor , lymphadenopathy, or thyromegaly. Respiratory/Chest: Lungs CTAB. No shortness of breath, respiratory distress, accessory muscle use. No crackles, rales, rhonchi, stridor, wheezing, dullness. Chest TTP from 3rd ICS to 7th ICS on left side. Cardiovascular: RRR. S1, S2. No JVD, murmur, bradycardia, tachycardia. Vascular Pulses: Dorsalis-Pedis (R): 2+, Dorsalis-Pedis (L): 2+ Gastrointestinal/Abdominal: Normal bowel sounds. Abdomen soft, non-distended. No tenderness or rebound tenderness. No organomegaly, pulsatile mass, guarding, hernia, hepatomegaly, splenomegaly. Lymphatic: No adenopathy, tenderness. Musculoskeletal/Extremities: Normal inspection. FROM of all extremities, normal capillary refill. Pelvis Stable. No CVA tenderness. No tenderness to extremities, pedal edema, swelling, erythema or deformity. Integumentary: Appropriate color, dry, warm. No cyanosis, erythema, jaundice or rash Neurologic: steel unloader II-XII intact. Fully oriented, alert. Appropriate mood/affect. Motor strength 5/5. No appreciable EOM palsy, facial droop or sensory deficit. Past History - Past Medical History Allergies/Adverse Reactions: Allergies Allergy/AdvReac Type Severity Reaction Status Date / Time aspirin Allergy Severe "NERVOUS" Verified 03/09/18 22:55 morphine Allergy Severe "ANXIETY-DE Verified 03/09/18 22:55 SPERATION" Home Medications: Ambulatory Orders Amlodipine Besylate 5 mg PO DAILY 11/06/17 Divalproex Sodium [Depakote] 500 mg PO BID 11/06/17 Famotidine 20 mg PO BID 11/06/17 Lisinopril [Prinivil] 5 mg PO DAILY #30 tablet 11/07/17 Anemia: Yes Asthma: No Cancer: No Cardiac Disorders: Yes (Chest pain) 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, baseline confusion and dizziness) COPD: Yes CHF: No DVT: No Dementia: No Diabetes: Yes GI Disorders: Yes (gerd, gastric ulcer, dysphagia) Disorders: Yes (kidney stone in the past) HTN: Yes Hypercholesterolemia: Yes Liver Disease: No Psychiatric Problems: Yes (ANXIETY DEPRESSION) Seizures: Yes (S/P craniotomy for benign tumor - on Depakote for seizure prophylaxis) Thyroid Disease: No - Surgical History Abdominal Surgery: Yes Appendectomy: No Cardiac Surgery: No Cholecystectomy: Yes Lung Surgery: No Neurologic Surgery: Yes (removal left meningioma, craniotomy) Orthopedic Surgery: Yes (bilat knee replacement) - Immunization History Td Vaccination: Yes TDAP Vaccination: No Immunization Up to Date: Yes - Suicide/Smoking/Psychosocial Hx Smoking Status: No Smoking History: Never smoked Have you smoked in the past 12 months: No Number of Cigarettes Smoked Daily: 0 Cigars Per Day: 0 Hx Alcohol Use: No Drug/Substance Use Hx: No Substance Use Type: None Hx Substance Use Treatment: No *Physical Exam - Vital Signs Last Vital Signs Temp Pulse Resp BP Pulse Ox 98.4 F 88 18 113/51 L 95 03/09/18 22:52 03/09/18 22:52 03/09/18 22:52 03/09/18 22:52 03/09/18 22:52 Moderate Sedation - Procedure Monitoring Vital Signs: Procedure Monitoring Vital Signs Temperature 98.4 F 03/09/18 22:52 Pulse Rate 88 03/09/18 22:52 Respiratory Rate 18 03/09/18 22:52 Blood Pressure 113/51 L 03/09/18 22:52 O2 Sat by Pulse Oximetry (%) 95 03/09/18 22:52 ED Treatment Course - LABORATORY CBC & Chemistry Diagram: 03/09/18 23:28 Medical Decision Making - Medical Decision Making 03/09/18 23:43 A/P: 72-year-old woman for evaluation of chronic chest pain and chronic headache Left chest tender to palpation over the third, fourth, fifth, sixth and seventh intercostal space Chest x-ray performed on 03/08 without significant change from previous studies. I will defer radiology at this time. EKG, basic metabolic panel, cardiac enzymes, Tylenol 650 mg, reassess 03/10/18 00:41 Laboratory testing is notable for BUN of 22. Cardiac enzymes are normal. Sodium is normal. EKG sinus rhythm rate of 77. Normal intervals noted. No ischemic changes present. No significant changes from previous EKG performed 03/08/18. I will discharge the patient home to follow-up with her primary doctor. *DC/Admit/Observation/Transfer Diagnosis at time of Disposition: Musculoskeletal chest pain - Discharge Dispostion Disposition: HOME Condition at time of disposition: Stable Decision to Admit order: No - Referrals Referrals: Waldo Mabry MD [Primary Care Provider] - - Patient Instructions Additional Instructions: Follow-up with her regular doctor. Return to ER for worsening symptoms or any other concerns. - Post Discharge Activity
[2018-03-09] MEDS ORDERED: ACETAMINOPHEN 325 MG TABLET (FP) ONE (23:47)
[2018-03-10 00:13] LABS: ANION GAP 5 MMOL/L (8-16); BLOOD UREA NITROGEN 22 mg/dL (7-18); CALCIUM 8.2 mg/dL (8.5-10.1); CHLORIDE 104 mmol/L (98-107); CO2 27 mmol/L (21-32); CREATININE 0.7 mg/dL (0.55-1.3); GLUCOSE,RANDOM 110 mg/dL (74-106); POTASSIUM 4.3 mmol/L (3.5-5.1); SODIUM 136 mmol/L (136-145)
--- NOTE | 2018-03-10 13:07 | EKG ---
Test Reason : Blood Pressure : / mmHG Vent. Rate : 077 BPM Atrial Rate : 077 BPM P-R Int : 152 ms QRS Dur : 084 ms QT Int : 392 ms P-R-T Axes : 006 008 026 degrees QTc Int : 443 ms NORMAL SINUS RHYTHM NORMAL ECG WHEN COMPARED WITH ECG OF 08-MAR-2018 15:05, NO SIGNIFICANT CHANGE WAS FOUND Confirmed by LARA SARMIENTO MD ([id number]) on 03/10/2018 1:07:02 PM Referred By: Confirmed By:LARA SARMIENTO MD
== END 2018-03-10 00:53 | disposition home or self-care (01) ==
LOC: JER 22:46
DX: R07.89 Other chest pain (principal); I10 Essential (primary) hypertension; E11.9 Type 2 diabetes mellitus without complications; E78.00 Pure hypercholesterolemia, unspecified; D64.9 Anemia, unspecified; F41.8 Other specified anxiety disorders; F31.9 Bipolar disorder, unspecified; G40.909 Epilepsy, unspecified, not intractable, without status epilepticus; J44.9 Chronic obstructive pulmonary disease, unspecified; I69.810 Attention and concentration deficit following other cerebrovascular disease; I69.893 Ataxia following other cerebrovascular disease; Z87.19 Personal history of other diseases of the digestive system; Z86.011 Personal history of benign neoplasm of the brain; Z86.69 Personal history of other diseases of the nervous system and sense organs; Z96.653 Presence of artificial knee joint, bilateral
CPT/HCPCS: 36415; 80048; 82550; 84484; 93005; 93010; 99281-25

== ENCOUNTER 2018-03-10 10:39 | Emergency (ER) | payer OTHER ==
[2018-03-10 10:50] VITALS: BP 139/75; PULSE 88; TEMP 97.8; BMI 30.9
--- NOTE | 2018-03-10 12:28 | PDOC ---
History of Present Illness - General Chief Complaint: Lightheaded Stated Complaint: DIZZINESS Time Seen by Provider: 03/10/18 11:21 - History of Present Illness Initial Comments: 03/10/18 12:24 72 yo F with multiple medical commorbiities, recurrent ED encounters who p/w Patient denies N/V, F,C, CP, SOB, urinary complaints, abdominal pain, diarrhea, constipation, lightheadedness, weakness, sensory changes. PMHx: as noted above ROS: as noted SHx: Allergies: Past History - Past Medical History Allergies/Adverse Reactions: Allergies Allergy/AdvReac Type Severity Reaction Status Date / Time aspirin Allergy Severe "NERVOUS" Verified 03/09/18 22:55 morphine Allergy Severe "ANXIETY-DE Verified 03/09/18 22:55 SPERATION" Home Medications: Ambulatory Orders Amlodipine Besylate 5 mg PO DAILY 11/06/17 Divalproex Sodium [Depakote] 500 mg PO BID 11/06/17 Famotidine 20 mg PO BID 11/06/17 Lisinopril [Prinivil] 5 mg PO DAILY #30 tablet 11/07/17 Anemia: Yes Asthma: No Cancer: No Cardiac Disorders: Yes (Chest pain) 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, baseline confusion and dizziness) COPD: Yes CHF: No DVT: No Dementia: No Diabetes: Yes GI Disorders: Yes (gerd, gastric ulcer, dysphagia) Disorders: Yes (kidney stone in the past) HTN: Yes Hypercholesterolemia: Yes Liver Disease: No Psychiatric Problems: Yes (ANXIETY DEPRESSION) Seizures: Yes (S/P craniotomy for benign tumor - on Depakote for seizure prophylaxis) Thyroid Disease: No - Surgical History Abdominal Surgery: Yes Appendectomy: No Cardiac Surgery: No Cholecystectomy: Yes Lung Surgery: No Neurologic Surgery: Yes (removal left meningioma, craniotomy) Orthopedic Surgery: Yes (bilat knee replacement) - Immunization History Td Vaccination: Yes TDAP Vaccination: No Immunization Up to Date: Yes - Suicide/Smoking/Psychosocial Hx Smoking Status: No Smoking History: Never smoked Have you smoked in the past 12 months: No Number of Cigarettes Smoked Daily: 0 Cigars Per Day: 0 Hx Alcohol Use: No Drug/Substance Use Hx: No Substance Use Type: None Hx Substance Use Treatment: No Review of Systems - Review of Systems Comments:: 03/10/18 12:24 GENERAL/CONSTITUTIONAL: No fever or chills. No weakness. HEAD, EYES, EARS, NOSE AND THROAT: No change in vision. No ear pain or discharge. No sore throat. CARDIOVASCULAR: No chest pain or shortness of breath RESPIRATORY: No cough, wheezing, or hemoptysis. GASTROINTESTINAL: No nausea, vomiting, diarrhea or constipation. GENITOURINARY: No dysuria, frequency, or change in urination. MUSCULOSKELETAL: No joint or muscle swelling or pain. No neck or back pain. SKIN: No rash NEUROLOGIC: No headache, vertigo, loss of consciousness, or change in strength/ sensation. ENDOCRINE: No increased thirst. No abnormal weight change HEMATOLOGIC/LYMPHATIC: No anemia, easy bleeding, or history of blood clots. ALLERGIC/IMMUNOLOGIC: No hives or skin allergy. *Physical Exam - Vital Signs Last Vital Signs Temp Pulse Resp BP Pulse Ox 97.8 F 88 17 139/75 97 03/10/18 10:45 03/10/18 10:45 03/10/18 10:45 03/10/18 10:45 03/10/18 10:45 - Physical Exam Comments: 03/10/18 12:25 GENERAL: Awake, alert, and fully oriented, in no acute distress HEAD: No signs of trauma, normocephalic, atraumatic EYES: PERRLA, EOMI, sclera anicteric, conjunctiva clear ENT: Auricles normal inspection, hearing grossly normal, nares patent, oropharynx clear without exudates. Moist mucosa NECK: Normal ROM, supple, no lymphadenopathy, JVD, or masses LUNGS: No distress, speaks full sentences, clear to auscultation bilaterally HEART: Regular rate and rhythm, normal S1 and S2, no murmurs, rubs or gallops, peripheral pulses normal and equal bilaterally. ABDOMEN: Soft, nontender, normoactive bowel sounds. No guarding, no rebound. No masses EXTREMITIES : Normal inspection, Normal range of motion, no edema. No clubbing or cyanosis. NEUROLOGICAL: Cranial nerves II through XII grossly intact. Normal speech, normal gait, no focal sensorimotor deficits SKIN: Warm, Dry, normal turgor, no rashes or lesions noted Moderate Sedation - Procedure Monitoring Vital Signs: Procedure Monitoring Vital Signs Temperature 97.8 F 03/10/18 10:45 Pulse Rate 88 03/10/18 10:45 Respiratory Rate 17 03/10/18 10:45 Blood Pressure 139/75 03/10/18 10:45 O2 Sat by Pulse Oximetry (%) 97 03/10/18 10:45 Medical Decision Making - Medical Decision Making 03/10/18 12:26 72 yo F with multiple medical commorbidities, recurrent ED encounters who p/w . Vitals wnl, AF, A&Ox3. Physical exam unremarkable. Patient recently d/c'd from [facility] ED earlier today. will obtain EKG, revaluate. Do not suspect any significant pathology at this time. ED Course: EKG: *DC/Admit/Observation/Transfer Diagnosis at time of Disposition: Lightheaded - Discharge Dispostion Condition at time of disposition: Stable Decision to Admit order: No - Referrals Referrals: Waldo Mabry MD [Primary Care Provider] - - Patient Instructions Printed Discharge Instructions: DI for Syncope in Adults (Fainting) Additional Instructions: Please return to the emergency department with any new or worsening symptoms or concerns. Please follow up with your primary care physician within 72 hours. - Post Discharge Activity
--- NOTE | 2018-03-10 12:54 | PDOC ---
History of Present Illness - General History Source: Patient Exam Limitations: No Limitations <Berta Hendricks - Last Filed: 03/10/18 12:49> - History of Present Illness Initial Comments: 03/10/18 13:01 The patient is a 72 year old female with past medical history significant for HTN, DM, HLD, COPD, CVA, seizures, chronic left breast pain, GERD, meningioma s/ p resection and chronic chest pain presents to the emergency department with chest pain. The patient presents with anterior chest pain, without any know modifying factory that aggravates or alleviates the pain. The patient was seen at the ER last night for similar complain, she was given Tylenol for the pain earlier today, denies taking the medication. The patient was discharged this AM. The patient was seen at the ER 4 times in the recent week for similar complain with negative blood work concerning an OK. Denies fever, chills, SOB, urinary symptoms. Allergies: ASA and morphine PCP: Waldo Araujo MD. <Alexandra Mendoza - Last Filed: 03/10/18 13:02> - General Chief Complaint: Lightheaded Stated Complaint: DIZZINESS Time Seen by Provider: 03/10/18 11:21 Past History - Past Medical History Anemia: Yes Asthma: No Cancer: No Cardiac Disorders: Yes (Chest pain) 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, baseline confusion and dizziness) COPD: Yes CHF: No DVT: No Dementia: No Diabetes: Yes GI Disorders: Yes (gerd, gastric ulcer, dysphagia) Disorders: Yes (kidney stone in the past) HTN: Yes Hypercholesterolemia: Yes Liver Disease: No Psychiatric Problems: Yes (ANXIETY DEPRESSION) Seizures: Yes (S/P craniotomy for benign tumor - on Depakote for seizure prophylaxis) Thyroid Disease: No - Surgical History Abdominal Surgery: Yes Appendectomy: No Cardiac Surgery: No Cholecystectomy: Yes Lung Surgery: No Neurologic Surgery: Yes (removal left meningioma, craniotomy) Orthopedic Surgery: Yes (bilat knee replacement) - Immunization History Td Vaccination: Yes TDAP Vaccination: No Immunization Up to Date: Yes - Suicide/Smoking/Psychosocial Hx Smoking Status: No Smoking History: Never smoked Have you smoked in the past 12 months: No Number of Cigarettes Smoked Daily: 0 Cigars Per Day: 0 Hx Alcohol Use: No Drug/Substance Use Hx: No Substance Use Type: None Hx Substance Use Treatment: No <Berta Hendricks - Last Filed: 03/10/18 12:49> <Alexandra Mendoza - Last Filed: 03/10/18 13:02> - Past Medical History Allergies/Adverse Reactions: Allergies Allergy/AdvReac Type Severity Reaction Status Date / Time aspirin Allergy Severe "NERVOUS" Verified 03/09/18 22:55 morphine Allergy Severe "ANXIETY-DE Verified 03/09/18 22:55 SPERATION" Home Medications: Ambulatory Orders Amlodipine Besylate 5 mg PO DAILY 11/06/17 Divalproex Sodium [Depakote] 500 mg PO BID 11/06/17 Famotidine 20 mg PO BID 11/06/17 Lisinopril [Prinivil] 5 mg PO DAILY #30 tablet 11/07/17 Review of Systems - Review of Systems Constitutional: No: Chills, Diaphoresis, Fever HEENTM: No: Eye Pain, Blurred Vision Respiratory: No: Orthopnea, Shortness of Breath Cardiac (ROS): Yes: Chest Pain. No: Edema : No: Burning, Dysuria, Discharge Neurological: No: Headache, Numbness Hematologic/Lymphatic: No: Anemia, Blood Clots All Other Systems: Reviewed and Negative <Berta Hendricks - Last Filed: 03/10/18 12:49> *Physical Exam - Vital Signs Last Vital Signs Temp Pulse Resp BP Pulse Ox 97.8 F 88 17 139/75 97 03/10/18 10:45 03/10/18 10:45 03/10/18 10:45 03/10/18 10:45 03/10/18 10:45 - Physical Exam Comments: 03/10/18 12:50 awake alert lung clear bilaterally heart rrr no mrg abd soft nt nd. ext wwp no edema. nuero alert oriented. ambulating with walker without difficulty. <Berta Hendricks - Last Filed: 03/10/18 12:49> - Vital Signs Last Vital Signs Temp Pulse Resp BP Pulse Ox 97.8 F 88 17 139/75 97 03/10/18 10:45 03/10/18 10:45 03/10/18 10:45 03/10/18 10:45 03/10/18 10:45 <Alexandra Mendoza - Last Filed: 03/10/18 13:02> Moderate Sedation - Procedure Monitoring Vital Signs: Procedure Monitoring Vital Signs Temperature 97.8 F 03/10/18 10:45 Pulse Rate 88 03/10/18 10:45 Respiratory Rate 17 03/10/18 10:45 Blood Pressure 139/75 03/10/18 10:45 O2 Sat by Pulse Oximetry (%) 97 03/10/18 10:45 <Berta Hendricks - Last Filed: 03/10/18 12:49> - Procedure Monitoring Vital Signs: Procedure Monitoring Vital Signs Temperature 97.8 F 03/10/18 10:45 Pulse Rate 88 03/10/18 10:45 Respiratory Rate 17 03/10/18 10:45 Blood Pressure 139/75 03/10/18 10:45 O2 Sat by Pulse Oximetry (%) 97 03/10/18 10:45 <Alexandra Mendoza - Last Filed: 03/10/18 13:02> Medical Decision Making - Medical Decision Making 03/10/18 12:51 72 yo F mult med problem well known to department and myself, with 4 prior visits this last week, most recent night prior discharged this early am, here again c/o chest pain. review recent work up consistently negative troponin. cxr negative. plan will repeat EKG< no labs necessary as check with in 24 hours. lung exam clear no cxr indicated. <Berta Hendricks - Last Filed: 03/10/18 12:49> *DC/Admit/Observation/Transfer <Berta Hendricks - Last Filed: 03/10/18 12:49> - Attestations Scribe Attestion: 03/10/18 13:01 Documentation prepared by Alexandra Mendoza, acting as medical legal investigator for Berta Hendricks MD. <Alexandra Mendoza - Last Filed: 03/10/18 13:02> Diagnosis at time of Disposition: Lightheaded, Chest pain - Discharge Dispostion Disposition: HOME Condition at time of disposition: Stable - Referrals Referrals: Waldo Mabry MD [Primary Care Provider] - - Patient Instructions Printed Discharge Instructions: DI for Chest Pain Additional Instructions: Please return to the emergency department with any new or worsening symptoms or concerns. Please follow up with your primary care physician within 72 hours. - Post Discharge Activity
--- NOTE | 2018-03-11 11:21 | EKG ---
Test Reason : Blood Pressure : / mmHG Vent. Rate : 082 BPM Atrial Rate : 082 BPM P-R Int : 162 ms QRS Dur : 074 ms QT Int : 368 ms P-R-T Axes : 043 000 029 degrees QTc Int : 429 ms NORMAL SINUS RHYTHM WHEN COMPARED WITH ECG OF 09-MAR-2018 23:23, NO SIGNIFICANT CHANGE WAS FOUND Confirmed by LARA SARMIENTO MD ([id number]) on 03/11/2018 11:20:35 AM Referred By: Confirmed By:LARA SARMIENTO MD
== END 2018-03-10 14:58 | disposition home or self-care (01) ==
LOC: JER 10:39
DX: R07.9 Chest pain, unspecified (principal); R42 Dizziness and giddiness; I10 Essential (primary) hypertension; E78.00 Pure hypercholesterolemia, unspecified; E11.9 Type 2 diabetes mellitus without complications; J44.9 Chronic obstructive pulmonary disease, unspecified; D64.9 Anemia, unspecified; F41.8 Other specified anxiety disorders; F32.9 Major depressive disorder, single episode, unspecified; I69.810 Attention and concentration deficit following other cerebrovascular disease; I69.893 Ataxia following other cerebrovascular disease; N64.4 Mastodynia; Z86.011 Personal history of benign neoplasm of the brain; Z87.19 Personal history of other diseases of the digestive system; Z87.442 Personal history of urinary calculi; Z96.653 Presence of artificial knee joint, bilateral; Z86.69 Personal history of other diseases of the nervous system and sense organs
CPT/HCPCS: 93005; 93010; 99281-25

== ENCOUNTER 2018-03-12 19:14 | Emergency (ER) | payer OTHER ==
--- NOTE | 2018-03-12 19:36 | PDOC ---
Rapid Medical Evaluation Chief Complaint: Chest Pain Medical Evaluation: Allergies Allergy/AdvReac Type Severity Reaction Status Date / Time aspirin Allergy Severe "NERVOUS" Verified 03/09/18 22:55 morphine Allergy Severe "ANXIETY-DE Verified 03/09/18 22:55 SPERATION" 03/12/18 19:35 I have performed a brief in-person evaluation of the patient. The patient presents with a chief complaint of: chronic chest pain with headache daily. Denies dizziness, or shortness of breath Pertinent physical exam findings. NAD even and unlabored chest non tender I have ordered the following. analgesia The patient will proceed to the ED for further evaluation.
[2018-03-12 19:37] VITALS: BP 135/71; PULSE 79; TEMP 98; BMI 26.4
[2018-03-12] MEDS ORDERED: ACETAMINOPHEN 325 MG TABLET (FP) PO ONE (19:38)
[2018-03-12] MEDS ORDERED: ACETAMINOPHEN 325 MG TABLET (FP) ONE (19:40)
--- NOTE | 2018-03-12 20:11 | PDOC ---
Attending Attestation - [facility] HPI: 03/12/18 20:13 The patient is a 72 year old female, with a significant past medical history of HLD, HTN, COPD, CVA (w/residual altered balance), NIDDM, seizures (2/2 to benign meningioma craniotomy), who presents to the emergency department with, chest pain, headache and constipation. She describes her chest pain as constant and non radiating. She notes this is similar to her previous episodes which she was evaluated for most recently on 03/10, lab work was done and unremarkable on and 03/09. Patient notes her home health aid is only around during the days and she becomes worried at night. While in the ED, the patient requests Tylenol and a sandwich. She denies any palpitations or shortness of breath. Patient denies any recent weakness, numbness, tingling, syncope. She denies recent fevers, chills, headache or dizziness. She denies recent nausea, vomit, diarrhea or constipation. She denies recent dysuria, frequency, urgency or hematuria. Allergies: Aspirin. Morphine. Past surgical history: Craniotomy. Social history: Nonsmoker. Denies EtOH use and recreational drug use. Primary Care Physician: Dr. Mabry - Physicial Exam PE: 03/12/18 20:14 GENERAL: Well developed, well nourished. Awake and alert. No acute distress. +HEENT: Mild anterior nosebleed. Normocephalic, atraumatic. PERRLA, EOMI. No conjunctival pallor. Sclera are non-icteric. Moist mucous membranes. Oropharynx is clear. NECK: Supple. Full ROM. No JVD. Carotid pulses 2+ and symmetric, without bruits. No thyromegaly. No lymphadenopathy. CARDIOVASCULAR: Regular rate and rhythm. No murmurs, rubs, or gallops. Distal pulses are 2+ and symmetric. PULMONARY: No evidence of respiratory distress. Lungs clear to auscultation bilaterally. No wheezing, rales or rhonchi. ABDOMINAL: Soft. Non-tender. Non-distended. No rebound or guarding. No organomegaly. Normoactive bowel sounds. MUSCULOSKELETAL Normal range of motion at all joints. No bony deformities or tenderness. No CVA tenderness. EXTREMITIES: No cyanosis. No clubbing. No edema. No calf tenderness. SKIN: Warm and dry. Normal capillary refill. No rashes. No jaundice. NEUROLOGICAL: Alert and oriented X3. appropriate. Cranial nerves 2-12 intact. No deficits to light touch and temperature in face, upper extremities and lower extremities. No motor deficits in the in face, upper extremities and lower extremities. Normoreflexic in the upper and lower extremities. Normal speech. Toes are down- going bilaterally. Gait is normal without ataxia. +PSYCHIATRIC: Anxious. Cooperative. Good eye contact. Appropriate mood and affect. <Anila Strickland - Last Filed: 03/12/18 20:14> - Resident Resident Name: Kirit Bliss - ED Attending Attestation I have performed the following: I have examined & evaluated the patient, The case was reviewed & discussed with the resident, I agree w/resident's findings & plan, Exceptions are as noted - Medical Decision Making 03/12/18 20:18 this 72 yo female is well known to our ED and was here 2 days ago with the same complaint ekg is nsr with no changes pt requesting a sandwich and tylenol imp chronic atypical chest pain <Florinda Gallagher - Last Filed: 03/12/18 20:21> Attestations - Attestations 03/12/18 20:15 Documentation prepared by Anila Strickland, acting as medical services manager for Florinda Gallagher MD. <Anila Strickland - Last Filed: 03/12/18 20:14>
--- NOTE | 2018-03-12 20:16 | PDOC ---
History of Present Illness - General Chief Complaint: Chest Pain Stated Complaint: CHEST PAIN Time Seen by Provider: 03/12/18 19:42 History Source: Patient Exam Limitations: Language Barrier - History of Present Illness Initial Comments: Patient is a 72 y/o F well known to this ED w/ PMHx chronic chest pain, CVA, COPD, GERD, PUD, hyperlipidemia, hypertension, seizures, presents for evaluation of chronic chest pain. Her symptoms are consistent with prior presentations. Denies SOB, nausea, vomiting, dizziness, abdominal pain, dysuria , hematuria, rectal bleeding. 03/12/18 20:06 Past History - Past Medical History Allergies/Adverse Reactions: Allergies Allergy/AdvReac Type Severity Reaction Status Date / Time aspirin Allergy Severe "NERVOUS" Verified 03/12/18 19:36 morphine Allergy Severe "ANXIETY-DE Verified 03/12/18 19:36 SPERATION" Home Medications: Ambulatory Orders Amlodipine Besylate 5 mg PO DAILY 11/06/17 Divalproex Sodium [Depakote] 500 mg PO BID 11/06/17 Famotidine 20 mg PO BID 11/06/17 Lisinopril [Prinivil] 5 mg PO DAILY #30 tablet 11/07/17 Anemia: Yes Asthma: No Cancer: No Cardiac Disorders: Yes (Chest pain) 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, baseline confusion and dizziness) COPD: Yes CHF: No DVT: No Dementia: No Diabetes: Yes GI Disorders: Yes (gerd, gastric ulcer, dysphagia) Disorders: Yes (kidney stone in the past) HTN: Yes Hypercholesterolemia: Yes Liver Disease: No Psychiatric Problems: Yes (ANXIETY DEPRESSION) Seizures: Yes (S/P craniotomy for benign tumor - on Depakote for seizure prophylaxis) Thyroid Disease: No - Surgical History Abdominal Surgery: Yes Appendectomy: No Cardiac Surgery: No Cholecystectomy: Yes Lung Surgery: No Neurologic Surgery: Yes (removal left meningioma, craniotomy) Orthopedic Surgery: Yes (bilat knee replacement) - Immunization History Td Vaccination: Yes TDAP Vaccination: No Immunization Up to Date: Yes - Suicide/Smoking/Psychosocial Hx Smoking Status: No Smoking History: Never smoked Have you smoked in the past 12 months: No Number of Cigarettes Smoked Daily: 0 Cigars Per Day: 0 Information on smoking cessation initiated: No Hx Alcohol Use: No Drug/Substance Use Hx: No Substance Use Type: None Hx Substance Use Treatment: No Review of Systems - Review of Systems Comments:: As per HPI 03/12/18 20:08 *Physical Exam - Vital Signs Last Vital Signs Temp Pulse Resp BP Pulse Ox 98.0 F 79 16 135/71 97 03/12/18 19:35 03/12/18 19:35 03/12/18 19:35 03/12/18 19:35 03/12/18 19:35 - Physical Exam Comments: Gen: A&Ox3 HEENT: NC/AT, PERRLA, EOMI, MMM Neck: supple, non-tender, no LAD, no JVD CV: RRR no m/r/g, +voluble affirmations of pain with placement of stethoscope on chest wall Resp: CTA b/l Abd: +bs, soft, NT, ND Ext: 2+ pulses, wwp, no edema Neuro: audio/video technician, motor, sensory systems w/o focal deficit Psych: highly demonstrative and emotional Skin: warm, dry, normal turgor 03/12/18 20:08 Moderate Sedation - Procedure Monitoring Vital Signs: Procedure Monitoring Vital Signs Temperature 98.0 F 03/12/18 19:35 Pulse Rate 79 03/12/18 19:35 Respiratory Rate 16 03/12/18 19:35 Blood Pressure 135/71 03/12/18 19:35 O2 Sat by Pulse Oximetry (%) 97 03/12/18 19:35 ED Treatment Course - Medications Given in the ED: ED Medications Discontinued Medications Generic Name Dose Route Start Last Admin Trade Name Chance PRN Reason Stop Dose Admin Acetaminophen 650 mg 03/12/18 19:38 03/12/18 19:41 Tylenol - PO 03/12/18 19:39 650 mg ONCE ONE Administration Medical Decision Making - Medical Decision Making Hemodynamically stable, EKG reassuring. Received serial labs multiple times per week most recently 3 days ago at prior ED visit found no abnormalities. No indication for further lab work at this time. Will treat with tylenol, provide food, and discharge. 03/12/18 20:11 *DC/Admit/Observation/Transfer Diagnosis at time of Disposition: Chest wall pain, chronic - Discharge Dispostion Disposition: HOME Condition at time of disposition: Stable - Referrals Referrals: Waldo Mabry MD [Primary Care Provider] - - Patient Instructions Printed Discharge Instructions: DI for Chest Pain Additional Instructions: Please return to the emergency department with any new or worsening symptoms or concerns. Please follow up with your primary care physician within 72 hours. - Post Discharge Activity
--- NOTE | 2018-03-13 12:17 | EKG ---
Test Reason : Blood Pressure : / mmHG Vent. Rate : 079 BPM Atrial Rate : 079 BPM P-R Int : 138 ms QRS Dur : 086 ms QT Int : 382 ms P-R-T Axes : 034 008 037 degrees QTc Int : 438 ms NORMAL SINUS RHYTHM NORMAL ECG Confirmed by MD SALMERON GREGORY ([id number]) on 03/13/2018 12:16:35 PM Referred By: Confirmed By:UMBERTO SALMERON MD
== END 2018-03-12 21:16 | disposition home or self-care (01) ==
LOC: JER 19:14
DX: R07.9 Chest pain, unspecified (principal); I10 Essential (primary) hypertension; E11.9 Type 2 diabetes mellitus without complications; E78.00 Pure hypercholesterolemia, unspecified; D64.9 Anemia, unspecified; J44.9 Chronic obstructive pulmonary disease, unspecified; F41.8 Other specified anxiety disorders; F32.9 Major depressive disorder, single episode, unspecified; K21.9 Gastro-esophageal reflux disease without esophagitis; Z86.011 Personal history of benign neoplasm of the brain; Z87.19 Personal history of other diseases of the digestive system; Z86.69 Personal history of other diseases of the nervous system and sense organs; Z96.653 Presence of artificial knee joint, bilateral; Z87.442 Personal history of urinary calculi
CPT/HCPCS: 93005; 93010; 99281-25; 99284-25

== ENCOUNTER 2018-03-15 22:18 | Emergency (ER) | payer OTHER ==
[2018-03-15 22:25] VITALS: BP 149/76; PULSE 77; TEMP 98.7
--- NOTE | 2018-03-15 22:54 | PDOC ---
History of Present Illness - General History Source: Patient Exam Limitations: No Limitations - History of Present Illness Initial Comments: 03/15/18 23:25 The patient is a 72 year old female with a significant PMH of chronic chest pain , CVA, COPD, GERD, PUD, hyperlipidemia, hypertension, and seizures who presents to the emergency department with frontal headache and left breast pain today. Patient has had multiple visits to this ER for similar symptoms. Patient denies taking any medications at home for her symptoms. Patient has scheduled appointments for her PCP, Dr. Mabry, and her mechanical design technician, Dr. Vargas. The patient denies chest pain, shortness of breath, headache and dizziness. Denies fever, chills, nausea, vomit, diarrhea and constipation. Denies dysuria, frequency, urgency and hematuria. Allergies: aspirin, morphine Social Hx: No reported alcohol, drug or cigarette use. Surgeries: None reported. PCP: Dr. Mabry <Patti Arriola - Last Filed: 03/15/18 23:34> <Magnolia Higgins - Last Filed: 03/16/18 00:35> - General Chief Complaint: Chest Pain Stated Complaint: CHEST PAIN Time Seen by Provider: 03/15/18 22:53 Past History <Patti Arriola - Last Filed: 03/15/18 23:34> - Past Medical History Anemia: Yes Asthma: No Cancer: No Cardiac Disorders: Yes (Chest pain) 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, baseline confusion and dizziness) COPD: Yes CHF: No DVT: No Dementia: No Diabetes: Yes GI Disorders: Yes (gerd, gastric ulcer, dysphagia) Disorders: Yes (kidney stone in the past) HTN: Yes Hypercholesterolemia: Yes Liver Disease: No Psychiatric Problems: Yes (ANXIETY DEPRESSION) Seizures: Yes (S/P craniotomy for benign tumor - on Depakote for seizure prophylaxis) Thyroid Disease: No - Surgical History Abdominal Surgery: Yes Appendectomy: No Cardiac Surgery: No Cholecystectomy: Yes Lung Surgery: No Neurologic Surgery: Yes (removal left meningioma, craniotomy) Orthopedic Surgery: Yes (bilat knee replacement) - Immunization History Td Vaccination: Yes TDAP Vaccination: No Immunization Up to Date: Yes - Suicide/Smoking/Psychosocial Hx Smoking Status: No Smoking History: Never smoked Have you smoked in the past 12 months: No Number of Cigarettes Smoked Daily: 0 Cigars Per Day: 0 Information on smoking cessation initiated: No Hx Alcohol Use: No Drug/Substance Use Hx: No Substance Use Type: None Hx Substance Use Treatment: No <Magnolia Higgins - Last Filed: 03/16/18 00:35> - Past Medical History Allergies/Adverse Reactions: Allergies Allergy/AdvReac Type Severity Reaction Status Date / Time aspirin Allergy Severe "NERVOUS" Verified 03/15/18 22:25 morphine Allergy Severe "ANXIETY-DE Verified 03/15/18 22:25 SPERATION" Home Medications: Ambulatory Orders Amlodipine Besylate 5 mg PO DAILY 11/06/17 Divalproex Sodium [Depakote] 500 mg PO BID 11/06/17 Famotidine 20 mg PO BID 11/06/17 Lisinopril [Prinivil] 5 mg PO DAILY #30 tablet 11/07/17 Review of Systems - Review of Systems Able to Perform ROS?: Yes Comments:: 03/15/18 23:27 ADULT ROS GENERAL/CONSTITUTIONAL: No fever or chills. No weakness. HEAD, EYES, EARS, NOSE AND THROAT: No change in vision. No ear pain or discharge. No sore throat. GASTROINTESTINAL: No nausea, vomiting, diarrhea or constipation. GENITOURINARY: No dysuria, frequency, or change in urination. CARDIOVASCULAR: No chest pain or shortness of breath. RESPIRATORY: No cough, wheezing, or hemoptysis. MUSCULOSKELETAL: No joint or muscle swelling or pain. No neck or back pain. (+) Left breast pain. SKIN: No rash NEUROLOGIC: No vertigo, loss of consciousness, or change in strength/sensation. (+) Headache. ENDOCRINE: No increased thirst. No abnormal weight change. HEMATOLOGIC/LYMPHATIC: No anemia, easy bleeding, or history of blood clots. ALLERGIC/IMMUNOLOGIC: No hives or skin allergy. <Patti Arriola - Last Filed: 03/15/18 23:34> *Physical Exam - Vital Signs Last Vital Signs Temp Pulse Resp BP Pulse Ox 98.7 F 77 18 149/76 100 03/15/18 22:22 03/15/18 22:22 03/15/18 22:22 03/15/18 22:22 03/15/18 22:22 - Physical Exam Comments: 03/15/18 23:26 ADULT PHYSICAL EXAM Constitutional: Awake, alert, oriented. No acute distress. Head: Normocephalic. Atraumatic Eyes: PERRL. EOMI. Conjunctivae are not pale. ENT: Mucous membranes are moist and intact. Posterior pharynx without exudates or erythema. Uvula midline. Neck: Supple. Full ROM. No lymphadenopathy. Chest wall: (+) Left breast tenderness. Cardiovascular: Regular rate. Regular rhythm. S1, S2 regular. Distal pulses are 2+ and symmetric. Pulmonary/Chest: No evidence of respiratory distress. Clear to auscultation bilaterally No wheezing, rales or rhonchi. Abdominal: Soft and non-distended. There is no tenderness. No rebound, guarding or rigidity. No organomegaly. No palpable masses. Good bowel sounds. Back: No CVA tenderness. Musculoskeletal: No edema. No cyanosis. No clubbing. Full range of motion in all extremities. Nocalf tenderness. Radial/pedal pulses are intact and 2+ bilaterally Skin: Skin is warm and dry. No petechiae. No purpura. Neurological: Alert and oriented to person, place, and time. Cranial nerves II -XII are grossly intact. Normal speech. Strength is grossly symmetric. No sensory deficits. Psychiatric: Good eye contact. Normal interaction, affect and behavior. <Patti Arriola - Last Filed: 03/15/18 23:34> - Vital Signs Last Vital Signs Temp Pulse Resp BP Pulse Ox 98.7 F 77 18 149/76 100 03/15/18 22:22 03/15/18 22:22 03/15/18 22:22 03/15/18 22:22 03/15/18 22:22 <Magnolia Higgins - Last Filed: 03/16/18 00:35> Moderate Sedation - Procedure Monitoring Vital Signs: Procedure Monitoring Vital Signs Temperature 98.7 F 03/15/18 22:22 Pulse Rate 77 03/15/18 22:22 Respiratory Rate 18 03/15/18 22:22 Blood Pressure 149/76 03/15/18 22:22 O2 Sat by Pulse Oximetry (%) 100 03/15/18 22:22 <Patti Arriola - Last Filed: 03/15/18 23:34> - Procedure Monitoring Vital Signs: Procedure Monitoring Vital Signs Temperature 98.7 F 03/15/18 22:22 Pulse Rate 77 03/15/18 22:22 Respiratory Rate 18 03/15/18 22:22 Blood Pressure 149/76 03/15/18 22:22 O2 Sat by Pulse Oximetry (%) 100 03/15/18 22:22 <Magnolia Higgins - Last Filed: 03/16/18 00:35> Heart Score/ECG Review - ECG Intrepretation Comment:: 03/15/18 23:00 sinus at 84, nl axis, nl interval, no acute st/t wave findings <aMgnolia Higgins - Last Filed: 03/16/18 00:35> ED Treatment Course - LABORATORY CBC & Chemistry Diagram: 03/15/18 23:16 03/15/18 23:16 - ADDITIONAL ORDERS Additional order review: 03/15/18 23:16 RBC 4.73 MCV 76.0 L MCHC 32.1 RDW 20.6 H MPV 7.3 L Neutrophils % 67.2 Lymphocytes % 16.8 Monocytes % 12.7 H Eosinophils % 2.8 Basophils % 0.5 - Medications Given in the ED: ED Medications Discontinued Medications Generic Name Dose Route Start Last Admin Trade Name Freq PRN Reason Stop Dose Admin Acetaminophen 975 mg 03/15/18 23:01 03/15/18 23:13 Tylenol - PO 03/15/18 23:02 975 mg ONCE ONE Administration <Patti Arriola - Last Filed: 03/15/18 23:34> - LABORATORY CBC & Chemistry Diagram: 03/15/18 23:16 03/15/18 23:16 <Magnolia Higgins - Last Filed: 03/16/18 00:35> Medical Decision Making - Medical Decision Making 03/15/18 23:20 a/p: 72yo female with frontal headache and L breast pain -has daily pain -felt lightheaded earlier -has not had a mammogram in years, states she has an appt with Cathy for next week and Dr. Vargas for next week -no cough -will send labs -ekg -tylenol -needs mammogram for breast pain as outpt -pt eating and drinking in the ED -ambulatory with her walker 03/16/18 00:34 trop negative ekg nonacute labs reviewed 03/16/18 00:34 pt stable for dc to home and follow up with her PMD and cards <Magnolia Higgins - Last Filed: 03/16/18 00:35> *DC/Admit/Observation/Transfer - Attestations Scribe Attestion: 03/15/18 23:27 Documentation prepared by Patti Arriola, acting as medical services coordinator for Magnolia Higgins DO. <Patti Arriola - Last Filed: 03/15/18 23:34> - Discharge Dispostion Decision to Admit order: No - Attestations Physician Attestion: 03/16/18 00:35 I, Dr. Magnolia Higgins DO, attest that this document has been prepared under my direction and personally reviewed by me in its entirety. I further attest, that it accurately reflects all work, treatment, procedures and medical decision -making performed by me. <Magnolia Higgins - Last Filed: 03/16/18 00:35> Diagnosis at time of Disposition: Atypical chest pain, Breast pain, left, Headache - Discharge Dispostion Disposition: HOME Condition at time of disposition: Stable - Referrals Referrals: Waldo Mabry MD [Primary Care Provider] - - Patient Instructions Printed Discharge Instructions: DI for Atypical Chest Pain, DI for Breast Pain (Mastalgia), DI for Headache Additional Instructions: Please have a mammogram. Please follow up with your PMD tomorrow. Please follow up with your mechanical design technician tomorrow. - Post Discharge Activity
[2018-03-15] MEDS ORDERED: ACETAMINOPHEN 325 MG TABLET (FP) PO ONE (23:01)
[2018-03-15] MEDS ORDERED: ACETAMINOPHEN 325 MG TABLET (FP) ONE (23:01)
[2018-03-15 23:22] LABS: BASO % 0.5 % (0-2.0); EOS % 2.8 % (0-4.5); HEMATOCRIT 35.9 % (32.4-45.2); HEMOGLOBIN 11.5 GM/dL (10.7-15.3); LYMPH % 16.8 % (8-40); MCH 24.4 pg (25.7-33.7); MCHC 32.1 g/dl (32.0-36.0); MEAN PLT VOLUME 7.3 fl (7.5-11.1); MONO % 12.7 % (3.8-10.2); NEUT % 67.2 % (42.8-82.8); PLATELET COUNT 324 K/MM3 (134-434); RBC 4.73 M/mm3 (3.60-5.2); RDW 20.6 % (11.6-15.6); WHITE BLOOD COUNT 7.2 K/mm3 (4.0-10.0)
[2018-03-15 23:45] LABS: OVALOCYTE 1+; PLATELET ESTIMATE ADEQUATE
[2018-03-15 23:46] LABS: ANISOCYTOSIS 1+; MACROCYTOSIS 2+
[2018-03-15 23:56] LABS: ALBUMIN 3.8 g/dl (3.4-5.0); ALK PHOS 201 U/L (45-117); ANION GAP 7 MMOL/L (8-16); BILIRUBIN,TOTAL 0.2 mg/dL (0.2-1); BLOOD UREA NITROGEN 20 mg/dL (7-18); CALCIUM 9.1 mg/dL (8.5-10.1); CHLORIDE 102 mmol/L (98-107); CO2 28 mmol/L (21-32); CREATININE 0.8 mg/dL (0.55-1.3); GLUCOSE,RANDOM 105 mg/dL (74-106); MAGNESIUM 2.5 mg/dL (1.8-2.4); POTASSIUM 4.3 mmol/L (3.5-5.1); SGOT/AST 28 U/L (15-37); SGPT/ALT 37 U/L (13-61); SODIUM 137 mmol/L (136-145); TOT PROT 7.7 g/dl (6.4-8.2)
[2018-03-16] MEDS ORDERED: IBUPROFEN 600 MG TABLET (FP) PO ONE ×2 (00:33→00:39)
--- NOTE | 2018-03-17 16:48 | EKG ---
Test Reason : Blood Pressure : / mmHG Vent. Rate : 084 BPM Atrial Rate : 084 BPM P-R Int : 164 ms QRS Dur : 074 ms QT Int : 368 ms P-R-T Axes : 057 -02 032 degrees QTc Int : 434 ms NORMAL SINUS RHYTHM NORMAL ECG WHEN COMPARED WITH ECG OF 12-MAR-2018 19:25, NO SIGNIFICANT CHANGE WAS FOUND Confirmed by Allison Jonas ([id number]) on 03/17/2018 4:47:55 PM Referred By: Confirmed By:Allison Jonas
== END 2018-03-16 00:43 | disposition home or self-care (01) ==
LOC: JER 22:18
DX: R07.89 Other chest pain (principal); R51 Headache; N64.4 Mastodynia; J44.9 Chronic obstructive pulmonary disease, unspecified; K21.9 Gastro-esophageal reflux disease without esophagitis; I10 Essential (primary) hypertension; E78.5 Hyperlipidemia, unspecified; R56.9 Unspecified convulsions
CPT/HCPCS: 36415; 80053; 82550; 83735; 84484; 85025; 93005; 93010; 99281-25

== ENCOUNTER 2018-03-16 18:52 | Emergency (ER) | payer OTHER ==
[2018-03-16 19:04] VITALS: BP 140/59; PULSE 88; TEMP 97.8; BMI 31.1
--- NOTE | 2018-03-16 19:07 | PDOC ---
Rapid Medical Evaluation Chief Complaint: Chest Pain Time Seen by Provider: 03/16/18 19:02 Medical Evaluation: Allergies Allergy/AdvReac Type Severity Reaction Status Date / Time aspirin Allergy Severe "NERVOUS" Verified 03/15/18 22:25 morphine Allergy Severe "ANXIETY-DE Verified 03/15/18 22:25 SPERATION" 03/16/18 19:03 Pt c/o: chest pain since this afternoon, feels sob and nervous Pt on brief exam: vss, appears anxious, lcta Pt ordered for: ekg, sob Pt to proceed to the ED Discharge Disposition - Diagnosis Chest pain - Referrals - Patient Instructions - Post Discharge Activity
[2018-03-16] MEDS ORDERED: ACETAMINOPHEN 325 MG TABLET (FP) ONE (21:13)
[2018-03-16 21:44] LABS: BASO % 0.4 % (0-2.0); EOS % 2.6 % (0-4.5); HEMATOCRIT 31.6 % (32.4-45.2); HEMOGLOBIN 10.3 GM/dL (10.7-15.3); LYMPH % 16.1 % (8-40); MCH 24.9 pg (25.7-33.7); MCHC 32.7 g/dl (32.0-36.0); MEAN CELL VOLUME 76.3 fl (80-96); MEAN PLT VOLUME 7.3 fl (7.5-11.1); MONO % 12.9 % (3.8-10.2); PLATELET COUNT 302 K/MM3 (134-434); RBC 4.14 M/mm3 (3.60-5.2); RDW 20.6 % (11.6-15.6); WHITE BLOOD COUNT 7.1 K/mm3 (4.0-10.0)
[2018-03-16 22:43] LABS: ANION GAP 8 MMOL/L (8-16); BLOOD UREA NITROGEN 23 mg/dL (7-18); CALCIUM 8.6 mg/dL (8.5-10.1); CHLORIDE 106 mmol/L (98-107); CO2 26 mmol/L (21-32); CREATININE 0.6 mg/dL (0.55-1.3); GLUCOSE,RANDOM 121 mg/dL (74-106); POTASSIUM 4.6 mmol/L (3.5-5.1); SODIUM 140 mmol/L (136-145)
[2018-03-16 22:44] LABS: ALBUMIN 3.3 g/dl (3.4-5.0); ALK PHOS 203 U/L (45-117); BILIRUBIN,TOTAL 0.2 mg/dL (0.2-1); SGOT/AST 23 U/L (15-37); SGPT/ALT 31 U/L (13-61); TOT PROT 6.8 g/dl (6.4-8.2)
--- NOTE | 2018-03-16 22:55 | PDOC ---
History of Present Illness - General Chief Complaint: Chest Pain Stated Complaint: CHEST PAIN Time Seen by Provider: 03/16/18 19:02 History Source: Patient Exam Limitations: No Limitations - History of Present Illness Initial Comments: 03/16/18 22:53 72-year-old female who is well-known to this emergency department presents to the emergency department complaining of chronic right-sided chest pain. An intermittent ache that's exacerbated on deep inspiration and alleviated at rest/Tylenol. Patient has a history of COPD, CVA, PUD, GERD, hypertension, seizures, hyperlipidemia. Patient states she feels a bit anxious as usual today. Patient denies nausea/vomiting, fever/chills, headache, dizziness, lightheadedness, facial pains, neck pain/stiffness, back pain, shortness of breath, abdominal pains, flank pains, urinary symptoms, extremity numbness or tingling sensation. Past History - Past Medical History Allergies/Adverse Reactions: Allergies Allergy/AdvReac Type Severity Reaction Status Date / Time aspirin Allergy Severe "NERVOUS" Verified 03/16/18 19:04 morphine Allergy Severe "ANXIETY-DE Verified 03/16/18 19:04 SPERATION" Home Medications: Ambulatory Orders Amlodipine Besylate 5 mg PO DAILY 11/06/17 Divalproex Sodium [Depakote] 500 mg PO BID 11/06/17 Famotidine 20 mg PO BID 11/06/17 Lisinopril [Prinivil] 5 mg PO DAILY #30 tablet 11/07/17 Anemia: Yes Asthma: No Cancer: No Cardiac Disorders: Yes (Chest pain) 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, baseline confusion and dizziness) COPD: Yes CHF: No DVT: No Dementia: No Diabetes: Yes GI Disorders: Yes (gerd, gastric ulcer, dysphagia) Disorders: Yes (kidney stone in the past) HTN: Yes Hypercholesterolemia: Yes Liver Disease: No Psychiatric Problems: Yes (ANXIETY DEPRESSION) Seizures: Yes (S/P craniotomy for benign tumor - on Depakote for seizure prophylaxis) Thyroid Disease: No - Surgical History Abdominal Surgery: Yes Appendectomy: No Cardiac Surgery: No Cholecystectomy: Yes Lung Surgery: No Neurologic Surgery: Yes (removal left meningioma, craniotomy) Orthopedic Surgery: Yes (bilat knee replacement) - Immunization History Td Vaccination: Yes TDAP Vaccination: No Immunization Up to Date: Yes - Suicide/Smoking/Psychosocial Hx Smoking Status: No Smoking History: Never smoked Have you smoked in the past 12 months: No Number of Cigarettes Smoked Daily: 0 Cigars Per Day: 0 Information on smoking cessation initiated: No Hx Alcohol Use: No Drug/Substance Use Hx: No Substance Use Type: None Hx Substance Use Treatment: No Review of Systems - Review of Systems Able to Perform ROS?: Yes Comments:: 03/16/18 22:54 CONSTITUTIONAL: Absent: fever, chills, diaphoresis, generalized weakness, malaise, loss of appetite HEENT: Absent: rhinorrhea, nasal congestion, throat pain, throat swelling, difficulty swallowing, mouth swelling, ear pain, eye pain, visual Changes CARDIOVASCULAR: +right sided cp Absent: loss of consciousness, palpitations, irregular heart rate, peripheral edema RESPIRATORY: Absent: cough, shortness of breath, dyspnea with exertion, orthopnea, wheezing, stridor, hemoptysis GASTROINTESTINAL: Absent: abdominal pain, abdominal distension, nausea, vomiting, diarrhea, constipation, melena, hematochezia GENITOURINARY: Absent: dysuria, frequency, urgency, hesitancy, hematuria, flank pain, genital pain MUSCULOSKELETAL: Absent: myalgia, arthralgia, joint swelling SKIN: Absent: rash, itching, pallor HEMATOLOGIC/IMMUNOLOGIC: Absent: easy bleeding, easy bruising, lymphadenopathy, frequent infections ENDOCRINE: Absent: unexplained weight gain, unexplained weight loss, heat intolerance, cold intolerance NEUROLOGIC: Absent: headache, focal weakness or paresthesias, dizziness, unsteady gait, seizure, mental status changes, bladder or bowel incontinence PSYCHIATRIC: Absent: anxiety, depression, suicidal or homicidal ideation, hallucinations. Is the patient limited Occitan proficient: No *Physical Exam - Vital Signs Last Vital Signs Temp Pulse Resp BP Pulse Ox 97.8 F 88 19 140/59 L 99 03/16/18 19:02 03/16/18 19:02 03/16/18 19:02 03/16/18 19:02 03/16/18 19:02 - Physical Exam Comments: 03/16/18 22:55 GENERAL: Well developed, well nourished. Awake and alert. No acute distress. HEENT: Normocephalic, atraumatic. PERRLA, EOMI. No conjunctival pallor. Sclera are non- icteric. Moist mucous membranes. Oropharynx is clear. NECK: Supple. Full ROM. No JVD. Carotid pulses 2+ and symmetric, without bruits. No thyromegaly. No lymphadenopathy. CARDIOVASCULAR: Regular rate and rhythm. No murmurs, rubs, or gallops. Distal pulses are 2+ and symmetric. PULMONARY: No evidence of respiratory distress. Lungs clear to auscultation bilaterally. No wheezing, rales or rhonchi. ABDOMINAL: Soft. Non-tender. Non-distended. No rebound or guarding. No organomegaly. Normoactive bowel sounds. MUSCULOSKELETAL Normal range of motion at all joints. No bony deformities or tenderness. No CVA tenderness. EXTREMITIES: No cyanosis. No clubbing. No edema. No calf tenderness. SKIN: Warm and dry. Normal capillary refill. No rashes. No jaundice. NEUROLOGICAL: Alert, awake, appropriate. Cranial nerves 2-12 intact. No deficits to light touch and temperature in face, upper extremities and lower extremities. No motor deficits in the in face, upper extremities and lower extremities. Normoreflexic in the upper and lower extremities. Normal speech. Toes are down- going bilaterally. Gait is normal without ataxia. PSYCHIATRIC: Cooperative. Good eye contact. Appropriate mood and affect. Moderate Sedation - Procedure Monitoring Vital Signs: Procedure Monitoring Vital Signs Temperature 97.8 F 03/16/18 19:02 Pulse Rate 88 03/16/18 19:02 Respiratory Rate 19 03/16/18 19:02 Blood Pressure 140/59 L 03/16/18 19:02 O2 Sat by Pulse Oximetry (%) 99 03/16/18 19:02 Heart Score/ECG Review - History History: Slightly suspicious - Electrocardiogram EKG: Normal - Age Age: >/= 65 - Risk Factors Risk Factors Heart Score: Yes Hx Hypercholesterolemia, Yes Hx Hypertension Based on the list above the patient has:: 1-2 risk factors - Troponin Troponin: </= normal limit - Score Heart Score - Total: 3 ED Treatment Course - LABORATORY CBC & Chemistry Diagram: 03/16/18 21:35 03/16/18 21:35 - ADDITIONAL ORDERS Additional order review: Laboratory Results 03/16/18 03/16/18 21:35 20:48 Sodium 140 Cancelled Potassium 4.6 Cancelled Chloride 106 Cancelled Carbon Dioxide 26 Cancelled Anion Gap 8 Cancelled BUN 23 H Cancelled Creatinine 0.6 Cancelled Creat Clearance w eGFR > 60 Cancelled Random Glucose 121 H Cancelled Calcium 8.6 Cancelled Total Bilirubin 0.2 Cancelled AST 23 Cancelled ALT 31 Cancelled Alkaline Phosphatase 203 H Cancelled Creatine Kinase 176 Cancelled Creatine Kinase Index 0.5 CK-MB (CK-2) < 1.00 Troponin I < 0.02 Cancelled Total Protein 6.8 Cancelled Albumin 3.3 L Cancelled 03/16/18 03/16/18 21:35 20:48 RBC 4.14 Cancelled MCV 76.3 L Cancelled MCHC 32.7 Cancelled RDW 20.6 H Cancelled MPV 7.3 L Cancelled Neutrophils % 68.0 Cancelled Lymphocytes % 16.1 Cancelled Monocytes % 12.9 H Cancelled Eosinophils % 2.6 Cancelled Basophils % 0.4 Cancelled - RADIOLOGY Radiograph Interpretation: 03/16/18 22:55 CXR 2v NAD *DC/Admit/Observation/Transfer Diagnosis at time of Disposition: Chest pain Qualifiers: Chest pain type: chest pain on breathing Qualified Code(s): R07.1 - Chest pain on breathing; R07.81 - Pleurodynia - Discharge Dispostion Disposition: HOME Condition at time of disposition: Stable Decision to Admit order: No - Referrals Referrals: Waldo Mabry MD [Primary Care Provider] - - Patient Instructions Printed Discharge Instructions: DI for Atypical Chest Pain Additional Instructions: Rest Follow up with your physician Return to the Er for severe/persistent/worsening symptoms - Post Discharge Activity
--- NOTE | 2018-03-17 16:41 | EKG ---
Test Reason : Blood Pressure : / mmHG Vent. Rate : 085 BPM Atrial Rate : 085 BPM P-R Int : 156 ms QRS Dur : 074 ms QT Int : 370 ms P-R-T Axes : 044 005 022 degrees QTc Int : 440 ms NORMAL SINUS RHYTHM NORMAL ECG WHEN COMPARED WITH ECG OF 15-MAR-2018 22:31, NO SIGNIFICANT CHANGE WAS FOUND Confirmed by Allison Jonas ([id number]) on 03/17/2018 4:40:56 PM Referred By: Confirmed By:Allison Jonas
== END 2018-03-16 23:27 | disposition home or self-care (01) ==
LOC: JER 18:52
DX: R07.1 Chest pain on breathing (principal); I10 Essential (primary) hypertension; E78.5 Hyperlipidemia, unspecified; K21.9 Gastro-esophageal reflux disease without esophagitis; F41.8 Other specified anxiety disorders
CPT/HCPCS: 36415; 71046-TC-FY; 80053; 82550; 82553; 84484; 85025; 93005; 93010; 99283-25

== ENCOUNTER 2018-03-17 17:40 | Emergency (ER) | payer OTHER ==
[2018-03-17] MEDS ORDERED: ACETAMINOPHEN 325 MG TABLET (FP) PO ONE (17:50)
--- NOTE | 2018-03-17 17:50 | PDOC ---
ED Treatment Course - LABORATORY CBC & Chemistry Diagram: 03/17/18 18:10 03/17/18 18:10 Medical Decision Making - Medical Decision Making 03/17/18 17:49 Pt seen by Midlevel Provider under my direct supervision Ms Sumner presents with left sided chest pain which has been her repeated complaint Twelve-lead EKG was performed and reviewed by me. There is normal sinus rhythm with a normal rate. The axis is normal. The intervals are normal. There are no ST or T wave abnormalities. Impression: Normal twelve-lead EKG 03/17/18 19:24 Laboratory Tests 03/16/18 03/16/18 03/17/18 21:35 21:35 18:10 WBC 7.1 5.3 Hgb 10.3 L 10.2 L Hct 31.6 L 31.9 L Plt Count 302 278 BUN 23 H Creatinine 0.6 Alkaline Phosphatase 203 H Troponin I < 0.02 03/17/18 18:10 WBC Hgb Hct Plt Count BUN 25 H Creatinine 0.7 Alkaline Phosphatase 186 H Troponin I < 0.02 Pt interviewed and examined Ancillary studies reviewed I agree with plan as outlined by Midlevel Provider *DC/Admit/Observation/Transfer Diagnosis at time of Disposition: Atypical chest pain - Discharge Dispostion Disposition: HOME Condition at time of disposition: Stable - Referrals - Patient Instructions - Post Discharge Activity
--- NOTE | 2018-03-17 17:57 | PDOC ---
History of Present Illness - General Stated Complaint: CHEST PAIN, DIFFICULTY BREATHING Time Seen by Provider: 03/17/18 17:47 History Source: Patient - History of Present Illness Presenting Symptoms: Chest Pain Past History - Past Medical History Allergies/Adverse Reactions: Allergies Allergy/AdvReac Type Severity Reaction Status Date / Time aspirin Allergy Severe "NERVOUS" Verified 03/16/18 19:04 morphine Allergy Severe "ANXIETY-DE Verified 03/16/18 19:04 SPERATION" Home Medications: Ambulatory Orders Amlodipine Besylate 5 mg PO DAILY 11/06/17 Divalproex Sodium [Depakote] 500 mg PO BID 11/06/17 Famotidine 20 mg PO BID 11/06/17 Lisinopril [Prinivil] 5 mg PO DAILY #30 tablet 11/07/17 Anemia: Yes Asthma: No Cancer: No Cardiac Disorders: Yes (Chest pain) 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, baseline confusion and dizziness) COPD: Yes CHF: No DVT: No Dementia: No Diabetes: Yes GI Disorders: Yes (gerd, gastric ulcer, dysphagia) Disorders: Yes (kidney stone in the past) HTN: Yes Hypercholesterolemia: Yes Liver Disease: No Psychiatric Problems: Yes (ANXIETY DEPRESSION) Seizures: Yes (S/P craniotomy for benign tumor - on Depakote for seizure prophylaxis) Thyroid Disease: No - Surgical History Abdominal Surgery: Yes Appendectomy: No Cardiac Surgery: No Cholecystectomy: Yes Lung Surgery: No Neurologic Surgery: Yes (removal left meningioma, craniotomy) Orthopedic Surgery: Yes (bilat knee replacement) - Immunization History Td Vaccination: Yes TDAP Vaccination: No Immunization Up to Date: Yes - Suicide/Smoking/Psychosocial Hx Smoking Status: No Smoking History: Never smoked Have you smoked in the past 12 months: No Number of Cigarettes Smoked Daily: 0 Cigars Per Day: 0 Hx Alcohol Use: No Drug/Substance Use Hx: No Substance Use Type: None Hx Substance Use Treatment: No Cardiac Specific PMH - Complaint Specific PMHX Pacemaker: No Review of Systems - Review of Systems Constitutional: No: Fever Respiratory: No: Cough, Shortness of Breath Cardiac (ROS): Yes: Chest Pain. No: Lightheadedness, Palpitations, Syncope *Physical Exam - Vital Signs Last Vital Signs Temp Pulse Resp BP Pulse Ox 97.8 F 83 16 127/63 97 03/17/18 17:40 03/17/18 17:40 03/17/18 17:40 03/17/18 17:40 03/17/18 17:40 - Physical Exam General Appearance: Yes: Appropriately Dressed. No: Apparent Distress HEENT: positive: Normal Voice Neck: positive: Supple Respiratory/Chest: positive: Lungs Clear, Normal Breath Sounds. negative: Respiratory Distress Cardiovascular: positive: Regular Rate, S1, S2 Gastrointestinal/Abdominal: positive: Soft. negative: Tender Integumentary: positive: Dry, Warm Neurologic: positive: Fully Oriented, Alert, Normal Mood/Affect Moderate Sedation - Procedure Monitoring Vital Signs: Procedure Monitoring Vital Signs Temperature 97.8 F 03/17/18 17:40 Pulse Rate 83 03/17/18 17:40 Respiratory Rate 16 03/17/18 17:40 Blood Pressure 127/63 03/17/18 17:40 O2 Sat by Pulse Oximetry (%) 97 03/17/18 17:40 ED Treatment Course - LABORATORY CBC & Chemistry Diagram: 03/17/18 18:10 03/17/18 18:10 - ADDITIONAL ORDERS Additional order review: 03/17/18 18:10 RBC 4.15 MCV 76.8 L MCHC 32.1 RDW 21.0 H MPV 7.3 L Neutrophils % 57.2 Lymphocytes % 23.4 D Monocytes % 14.6 H Eosinophils % 4.2 Basophils % 0.6 - Medications Given in the ED: ED Medications Discontinued Medications Generic Name Dose Route Start Last Admin Trade Name Freq PRN Reason Stop Dose Admin Acetaminophen 650 mg 03/17/18 17:50 03/17/18 18:07 Tylenol - PO 03/17/18 17:51 650 mg ONCE ONE Administration Medical Decision Making - Medical Decision Making 03/17/18 17:51 72-year-old female very well known to the ED for numerous visits with chronic chest pain, CVA, COPD, GERD, PUD, HTN, HLD, seizures, anxiety and depression who comes in today with her usual left-sided chest pain. Patient w/ almost daily visits for CP and usually discharged from ER. Was seen yesterday with normal EKG and chest x-ray. Patient requesting tylenol at this time, which she usually does on ER visits. Denies shortness of breath, diaphoresis, nausea, vomiting, cough, fever or chills. Follows up with embossograph operator, Dr. Vargas and PMD is Dr Morgan. States she has upcoming appt with both See exam Chronic CP Multiple ED visits Neg w/u in ED yesterday Pt stable w/ unremarkable exam -ekg -labs -anticipate dc 03/17/18 18:57 Pt signed out to BABAK Anna
[2018-03-17] MEDS ORDERED: ACETAMINOPHEN 325 MG TABLET (FP) ONE (18:04)
[2018-03-17 18:13] VITALS: BP 127/63; PULSE 83; TEMP 97.8; BMI 28.2
[2018-03-17 18:17] LABS: BASO % 0.6 % (0-2.0); EOS % 4.2 % (0-4.5); HEMATOCRIT 31.9 % (32.4-45.2); HEMOGLOBIN 10.2 GM/dL (10.7-15.3); LYMPH % 23.4 % (8-40); MCH 24.6 pg (25.7-33.7); MCHC 32.1 g/dl (32.0-36.0); MEAN CELL VOLUME 76.8 fl (80-96); MEAN PLT VOLUME 7.3 fl (7.5-11.1); MONO % 14.6 % (3.8-10.2); NEUT % 57.2 % (42.8-82.8); PLATELET COUNT 278 K/MM3 (134-434); RBC 4.15 M/mm3 (3.60-5.2); WHITE BLOOD COUNT 5.3 K/mm3 (4.0-10.0)
[2018-03-17 19:00] LABS: ALBUMIN 3.2 g/dl (3.4-5.0); ALK PHOS 186 U/L (45-117); ANION GAP 9 MMOL/L (8-16); BILIRUBIN,TOTAL 0.2 mg/dL (0.2-1); BLOOD UREA NITROGEN 25 mg/dL (7-18); CALCIUM 8.5 mg/dL (8.5-10.1); CHLORIDE 107 mmol/L (98-107); CO2 26 mmol/L (21-32); CREATININE 0.7 mg/dL (0.55-1.3); GLUCOSE,RANDOM 126 mg/dL (74-106); POTASSIUM 4.1 mmol/L (3.5-5.1); SGOT/AST 20 U/L (15-37); SGPT/ALT 29 U/L (13-61); SODIUM 141 mmol/L (136-145); TOT PROT 6.5 g/dl (6.4-8.2)
--- NOTE | 2018-03-17 22:40 | PDOC ---
*Physical Exam - Vital Signs Last Vital Signs Temp Pulse Resp BP Pulse Ox 97.8 F 83 16 127/63 97 03/17/18 17:40 03/17/18 17:40 03/17/18 17:40 03/17/18 17:40 03/17/18 17:40 - Physical Exam Comments: 03/17/18 22:38 GENERAL: Well developed, well nourished. Awake and alert. No acute distress. HEENT: Normocephalic, atraumatic. PERRLA, EOMI. No conjunctival pallor. Sclera are non- icteric. Moist mucous membranes. Oropharynx is clear. NECK: Supple. Full ROM. No JVD. Carotid pulses 2+ and symmetric, without bruits. No thyromegaly. No lymphadenopathy. CARDIOVASCULAR: Regular rate and rhythm. No murmurs, rubs, or gallops. Distal pulses are 2+ and symmetric. PULMONARY: No evidence of respiratory distress. Lungs clear to auscultation bilaterally. No wheezing, rales or rhonchi. ABDOMINAL: Soft. Non-tender. Non-distended. No rebound or guarding. No organomegaly. Normoactive bowel sounds. MUSCULOSKELETAL Normal range of motion at all joints. No bony deformities or tenderness. No CVA tenderness. EXTREMITIES: No cyanosis. No clubbing. No edema. No calf tenderness. SKIN: Warm and dry. Normal capillary refill. No rashes. No jaundice. NEUROLOGICAL: Alert, awake, appropriate. Cranial nerves 2-12 intact. No deficits to light touch and temperature in face, upper extremities and lower extremities. No motor deficits in the in face, upper extremities and lower extremities. Normoreflexic in the upper and lower extremities. Normal speech. Toes are down- going bilaterally. Gait is normal without ataxia. PSYCHIATRIC: Cooperative. Good eye contact. Appropriate mood and affect. ED Treatment Course - LABORATORY CBC & Chemistry Diagram: 03/17/18 18:10 03/17/18 18:10 - ADDITIONAL ORDERS Additional order review: Laboratory Results 03/17/18 18:10 Sodium 141 Potassium 4.1 Chloride 107 Carbon Dioxide 26 Anion Gap 9 BUN 25 H Creatinine 0.7 Creat Clearance w eGFR > 60 Random Glucose 126 H Calcium 8.5 Total Bilirubin 0.2 AST 20 ALT 29 Alkaline Phosphatase 186 H Creatine Kinase 105 Troponin I < 0.02 Total Protein 6.5 Albumin 3.2 L 03/17/18 18:10 RBC 4.15 MCV 76.8 L MCHC 32.1 RDW 21.0 H MPV 7.3 L Neutrophils % 57.2 Lymphocytes % 23.4 D Monocytes % 14.6 H Eosinophils % 4.2 Basophils % 0.6 - Medications Given in the ED: ED Medications Discontinued Medications Generic Name Dose Route Start Last Admin Trade Name Freq PRN Reason Stop Dose Admin Acetaminophen 650 mg 03/17/18 17:50 03/17/18 18:07 Tylenol - PO 03/17/18 17:51 650 mg ONCE ONE Administration Progress Note - Progress Note Progress Note: 1923hrs: Pt states she feels better but wishes to stay in the ER to be sure it doesn;'t return. 2001hrs; Pt resting w/o complaints 2116hrs: Pt resting, vss 2238hrs: Pt vss, no complaints *DC/Admit/Observation/Transfer Diagnosis at time of Disposition: Atypical chest pain - Discharge Dispostion Disposition: HOME Condition at time of disposition: Stable - Referrals - Patient Instructions - Post Discharge Activity
--- NOTE | 2018-03-18 15:40 | EKG ---
Test Reason : Blood Pressure : / mmHG Vent. Rate : 078 BPM Atrial Rate : 078 BPM P-R Int : 160 ms QRS Dur : 076 ms QT Int : 392 ms P-R-T Axes : 046 012 044 degrees QTc Int : 446 ms NORMAL SINUS RHYTHM NORMAL ECG WHEN COMPARED WITH ECG OF 16-MAR-2018 19:13, NO SIGNIFICANT CHANGE WAS FOUND Confirmed by MITCH HEREDIA MD ([id number]) on 03/18/2018 3:39:50 PM Referred By: Confirmed By:MITCH HEREDIA MD
== END 2018-03-17 23:44 | disposition home or self-care (01) ==
LOC: JER 17:40
DX: R07.89 Other chest pain (principal); I10 Essential (primary) hypertension; E78.5 Hyperlipidemia, unspecified; F41.8 Other specified anxiety disorders
CPT/HCPCS: 36415; 80053; 82550; 84484; 85025; 93005; 93010; 99282-25

== ENCOUNTER 2018-03-19 18:07 | Emergency (ER) | payer OTHER ==
--- NOTE | 2018-03-19 18:29 | PDOC ---
Rapid Medical Evaluation Time Seen by Provider: 03/19/18 18:27 Medical Evaluation: Allergies Allergy/AdvReac Type Severity Reaction Status Date / Time aspirin Allergy Severe "NERVOUS" Verified 03/16/18 19:04 morphine Allergy Severe "ANXIETY-DE Verified 03/16/18 19:04 SPERATION" 03/19/18 18:27 I have performed a brief in-person evaluation of this patient. The patient presents with a chief complaint of: left chest pain, denies shortness of breath. Denies coughing. Pertinent physical exam findings: NAD able to verbalize needs even and unlabored breathing I have ordered the following: ekg, analgesia The patient will proceed to the ED for further evaluation. 03/19/18 18:29
[2018-03-19 18:32] VITALS: BP 125/76; PULSE 93; TEMP 98.4; BMI 28.2
[2018-03-19] MEDS ORDERED: ACETAMINOPHEN 325 MG TABLET (FP) PO ONE (18:33)
[2018-03-19] MEDS ORDERED: ACETAMINOPHEN 325 MG TABLET (FP) ONE (23:12)
--- NOTE | 2018-03-19 23:15 | PDOC ---
Attending Attestation - Resident Resident Name: Jose Craig - ED Attending Attestation I have performed the following: I have examined & evaluated the patient, The case was reviewed & discussed with the resident, I agree w/resident's findings & plan, Exceptions are as noted - Physicial Exam PE: 03/19/18 23:12 awake alert lung bilaterally heart rrr no mrg ext wwp no edema. no calf tenderness. - Medical Decision Making 03/19/18 23:12 pt well known to ed and myself here with same complaint of cheset pain. requesting sandwich. ekg , and tylenol for pain. dc home fu pcp. <Berta Hendricks - Last Filed: 03/19/18 23:15> - HPI HPI: 03/19/18 23:25 The patient is a 72-year-old woman well-known to the ER with history of chronic chest pain, CVA, COPD, GERD, PUD, hyperlipidemia, hypertension, seizures who presents emergency department for evaluation of her chronic chest pain. Patient states this feels like her usual chest pain. She has not taken any pain meds at home. Denies sob, N/V/D/C, abdominal pain, dysuria, hematuria, rectal bleeding. No recent travel or sick contacts. PAST MEDICAL HISTORY: see HPI SURGICAL HISTORY: See HPI ALLERGIES: aspirin, morphine PCP: Dr. Morgan <Patti Arriola - Last Filed: 03/19/18 23:27> Heart Score/ECG Review #1 General ECG Interpretation: Sinus Rhythm, Normal Rate (92), Normal Intervals, No acute ischemic changes <Berta Hendricks - Last Filed: 03/19/18 23:15>
--- NOTE | 2018-03-19 23:35 | PDOC ---
History of Present Illness - General Chief Complaint: Chest Pain Stated Complaint: CHEST PAIN Time Seen by Provider: 03/19/18 18:27 History Source: Patient Exam Limitations: Language Barrier - History of Present Illness Initial Comments: 71 year old female hx of DM, HTN, and HLD, well known to our department for atypical chest pain presentations (negative nuclear stress test performed May 2017), presenting with left sided throbbing chest pain for the past day associated with nausea but no emesis. She denies any recent bouts of diaphoresis. She denies any pain radiation to jaw or arm. When asked if the pain is pressure like the patient says it is not, and it is stabbing and throbbing in nature. She was seen in our ED for the past 3 days for the same issue. Denies any headache, fevers, chills, diarrhea, or other symptoms. She says she is doing her usual today and came to the ED when her aid left. She syas she would just like some food. Past History - Past Medical History Allergies/Adverse Reactions: Allergies Allergy/AdvReac Type Severity Reaction Status Date / Time aspirin Allergy Severe "NERVOUS" Verified 03/19/18 18:30 morphine Allergy Severe "ANXIETY-DE Verified 03/19/18 18:30 SPERATION" Home Medications: Ambulatory Orders Amlodipine Besylate 5 mg PO DAILY 11/06/17 Divalproex Sodium [Depakote] 500 mg PO BID 11/06/17 Famotidine 20 mg PO BID 11/06/17 Lisinopril [Prinivil] 5 mg PO DAILY #30 tablet 11/07/17 Anemia: Yes Asthma: No Cancer: No Cardiac Disorders: Yes (Chest pain) 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, baseline confusion and dizziness) COPD: Yes CHF: No DVT: No Dementia: No Diabetes: Yes GI Disorders: Yes (gerd, gastric ulcer, dysphagia) Disorders: Yes (kidney stone in the past) HTN: Yes Hypercholesterolemia: Yes Liver Disease: No Psychiatric Problems: Yes (ANXIETY DEPRESSION) Seizures: Yes (S/P craniotomy for benign tumor - on Depakote for seizure prophylaxis) Thyroid Disease: No - Surgical History Abdominal Surgery: Yes Appendectomy: No Cardiac Surgery: No Cholecystectomy: Yes Lung Surgery: No Neurologic Surgery: Yes (removal left meningioma, craniotomy) Orthopedic Surgery: Yes (bilat knee replacement) - Immunization History Td Vaccination: Yes TDAP Vaccination: No Immunization Up to Date: Yes - Suicide/Smoking/Psychosocial Hx Smoking Status: No Smoking History: Unknown if ever smoked Have you smoked in the past 12 months: No Number of Cigarettes Smoked Daily: 0 Cigars Per Day: 0 Hx Alcohol Use: No Drug/Substance Use Hx: No Substance Use Type: None Hx Substance Use Treatment: No Review of Systems - Review of Systems Able to Perform ROS?: Yes Comments:: CONSTITUTIONAL: Absent: fever, no chills, no fatigue EYES: Absent: visual changes ENT: Absent: ear pain, no sore throat CARDIOVASCULAR: Present: Chest pain Absent: no palpitations RESPIRATORY: Absent: cough, no SOB GI: Absent: abdominal pain, no nausea, no vomiting, no constipation, no diarrhea GENITOURINARY: Absent: dysuria, no frequency, no hematuria MUSKULOSKELETAL: Absent: back pain, no arthralgia, no myalgia SKIN: Absent: rash NEURO: Absent: headache *Physical Exam - Vital Signs Last Vital Signs Temp Pulse Resp BP Pulse Ox 98.4 F 93 H 22 H 125/76 96 03/19/18 18:31 03/19/18 18:31 03/19/18 18:31 03/19/18 18:31 03/19/18 18:31 - Physical Exam Comments: GENERAL: Well-appearing, well-nourished. No apparent distress. HEENT: Normocephalic, atraumatic. PERRL, EOM intact. CARDIOVASCULAR: Normal S1, S2. Regular rate and rhythm. PULMONARY: Clear to auscultation bilaterally. ABDOMEN: Soft, non-distended, non-tender. EXTREMITIES: Normal ROM in all four extremities. No gross deformities. SKIN: Warm, dry. No rash NEUROLOGICAL: No focal neurological deficits. Moderate Sedation - Procedure Monitoring Vital Signs: Procedure Monitoring Vital Signs Temperature 98.4 F 03/19/18 18:31 Pulse Rate 93 H 03/19/18 18:31 Respiratory Rate 22 H 03/19/18 18:31 Blood Pressure 125/76 03/19/18 18:31 O2 Sat by Pulse Oximetry (%) 96 03/19/18 18:31 ED Treatment Course - Medications Given in the ED: ED Medications Discontinued Medications Generic Name Dose Route Start Last Admin Trade Name Freq PRN Reason Stop Dose Admin Acetaminophen 650 mg 03/19/18 18:33 03/19/18 23:14 Tylenol - PO 03/19/18 18:34 650 mg ONCE ONE Administration Medical Decision Making - Medical Decision Making 71 year old female hx of DM, HTN, and HLD, well known to our department for atypical chest pain presentations (negative nuclear stress test performed May 2017), presenting with left sided throbbing chest pain for the past day associated with nausea but no emesis. DD includes but not limited to: ACS, msk pain, loneliness Plan: Ekg, tylenol, sandwich, discharge EKG normal sinus *DC/Admit/Observation/Transfer Diagnosis at time of Disposition: Malingering, Factitious disorder, Atypical chest pain - Discharge Dispostion Disposition: HOME Condition at time of disposition: Stable Decision to Admit order: No - Referrals Referrals: Waldo Mabry MD [Primary Care Provider] - - Patient Instructions Printed Discharge Instructions: DI for Atypical Chest Pain Print Language: YI - Post Discharge Activity
--- NOTE | 2018-03-20 15:06 | EKG ---
Test Reason : Blood Pressure : / mmHG Vent. Rate : 092 BPM Atrial Rate : 092 BPM P-R Int : 152 ms QRS Dur : 082 ms QT Int : 358 ms P-R-T Axes : 041 000 029 degrees QTc Int : 442 ms NORMAL SINUS RHYTHM NORMAL ECG WHEN COMPARED WITH ECG OF 17-MAR-2018 18:03, NO SIGNIFICANT CHANGE WAS FOUND Confirmed by Ashvin España MD ([id number]) on 03/20/2018 3:06:22 PM Referred By: Confirmed By:Ashvin España MD
== END 2018-03-20 01:58 | disposition home or self-care (01) ==
LOC: JER 18:07
DX: R07.89 Other chest pain (principal); F68.10 Factitious disorder imposed on self, unspecified; Z76.5 Malingerer [conscious simulation]; I10 Essential (primary) hypertension; E11.9 Type 2 diabetes mellitus without complications; E78.00 Pure hypercholesterolemia, unspecified; D64.9 Anemia, unspecified; J44.9 Chronic obstructive pulmonary disease, unspecified; F41.8 Other specified anxiety disorders; F32.9 Major depressive disorder, single episode, unspecified; Z87.442 Personal history of urinary calculi; Z87.19 Personal history of other diseases of the digestive system; Z96.653 Presence of artificial knee joint, bilateral; I69.810 Attention and concentration deficit following other cerebrovascular disease; I69.893 Ataxia following other cerebrovascular disease; Z86.011 Personal history of benign neoplasm of the brain
CPT/HCPCS: 93005; 93010; 99281-25; 99283-25

== ENCOUNTER 2018-03-21 17:03 | Emergency (ER) | payer OTHER ==
--- NOTE | 2018-03-21 17:29 | PDOC ---
Rapid Medical Evaluation Chief Complaint: Chest Pain Time Seen by Provider: 03/21/18 17:15 Medical Evaluation: Allergies Allergy/AdvReac Type Severity Reaction Status Date / Time aspirin Allergy Severe "NERVOUS" Verified 03/21/18 17:25 morphine Allergy Severe "ANXIETY-DE Verified 03/21/18 17:25 SPERATION" 03/21/18 17:28 I have performed a brief in-person evaluation of this patient. The patient presents with a chief complaint of: chronic CP, here w/ same. Pertinent physical exam findings:stable I have ordered the following:ekg The patient will proceed to the ED for further evaluation. 03/21/18 17:36 Discharge Disposition - Diagnosis Chronic chest pain - Referrals - Patient Instructions - Post Discharge Activity
[2018-03-21 17:30] VITALS: BP 156/63; PULSE 83; TEMP 98.6; BMI 27.4
--- NOTE | 2018-03-23 13:27 | EKG ---
Test Reason : Blood Pressure : / mmHG Vent. Rate : 082 BPM Atrial Rate : 082 BPM P-R Int : 156 ms QRS Dur : 074 ms QT Int : 372 ms P-R-T Axes : 037 -06 027 degrees QTc Int : 434 ms NORMAL SINUS RHYTHM NORMAL ECG WHEN COMPARED WITH ECG OF 19-MAR-2018 18:35, NO SIGNIFICANT CHANGE WAS FOUND Confirmed by ANNITA VENTURA MD ([id number]) on 03/23/2018 1:26:38 PM Referred By: Confirmed By:ANNITA VENTURA MD
== END 2018-03-22 01:34 | disposition left against medical advice (07) ==
LOC: JER 17:03
DX: R07.9 Chest pain, unspecified (principal)
CPT/HCPCS: 93005; 93010; 99281-25

== ENCOUNTER 2018-03-25 18:43 | Emergency (ER) | payer OTHER ==
[2018-03-25 18:52] VITALS: BP 150/70; PULSE 79; TEMP 98.3; BMI 29.2
[2018-03-25] MEDS ORDERED: ACETAMINOPHEN 500 MG TABLET (FP) PO ONE (19:41)
--- NOTE | 2018-03-25 19:43 | PDOC ---
History of Present Illness - General Chief Complaint: Chest Pain Stated Complaint: CHEST PAIN Time Seen by Provider: 03/25/18 19:20 History Source: Patient, Old Records Exam Limitations: No Limitations - History of Present Illness Initial Comments: 03/25/18 19:42 HISTORY OF PRESENT ILLNESS: This 72-year-old woman well-known to this emergency Department with history of chronic chest pain, CVA, COPD, GERD, PUD, hyperlipidemia, hypertension, seizures who presents emergency department for evaluation of her chronic chest pain and headache. Patient states this is the usual pain for which she seeks medical care. She states she has not taken any medications prior to arrival. She denies any shortness of breath, nausea, vomiting, dizziness, abdominal pain, dysuria, hematuria, rectal bleeding. No recent travel or sick contacts. PAST MEDICAL HISTORY: see HPI SURGICAL HISTORY: See HPI ALLERGIES: ASA, MSO4 REVIEW OF SYSTEMS General/Constitutional: Denies fever or chills. Denies weakness, weight change. HEENT: Denies change in vision. Denies ear pain or discharge. Denies sore throat. Cardiovascular: Left sided chest pain. Denies shortness of breath. Respiratory: Denies cough, wheezing, or hemoptysis. Gastrointestinal: Denies nausea, vomiting, diarrhea or constipation. Denies rectal bleeding. Genitourinary: Denies dysuria, frequency, or change in urination. Musculoskeletal: Denies joint or muscle swelling or pain. Denies neck or back pain. Skin and breasts: Denies rash or easy bruising. Neurologic: Fontal headache. Denies vertigo, loss of consciousness, or loss of sensation. Psychiatric: Denies depression or anxiety. Endocrine: Denies increased thirst. Denies abnormal weight change. Hematologic/Lymphatic: Denies anemia, easy bleeding, or history of blood clots. Allergic/Immunologic: Denies hives or skin allergy. Denies latex allergy. PHYSICAL EXAM General Appearance: Well-appearing, appropriately dressed. No apparent distress , no intoxication. HEENT: EOMI, PERRLA, normal ENT inspection, normal voice, TMs normal, pharynx normal. No conjunctival pallor. No photophobia, scleral icterus. Neck: Supple. Trachea midline. No tenderness, rigidity, carotid bruit, stridor , lymphadenopathy, or thyromegaly. Respiratory/Chest: Lungs CTAB. No shortness of breath, respiratory distress, accessory muscle use. No crackles, rales, rhonchi, stridor, wheezing, dullness. Chest TTP from 3rd ICS to 7th ICS on left side. Cardiovascular: RRR. S1, S2. No JVD, murmur, bradycardia, tachycardia. Vascular Pulses: Dorsalis-Pedis (R): 2+, Dorsalis-Pedis (L): 2+ Gastrointestinal/Abdominal: Normal bowel sounds. Abdomen soft, non-distended. No tenderness or rebound tenderness. No organomegaly, pulsatile mass, guarding, hernia, hepatomegaly, splenomegaly. Lymphatic: No adenopathy, tenderness. Musculoskeletal/Extremities: Normal inspection. FROM of all extremities, normal capillary refill. Pelvis Stable. No CVA tenderness. No tenderness to extremities, pedal edema, swelling, erythema or deformity. Integumentary: Appropriate color, dry, warm. 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 Fully oriented, alert. Appropriate mood/affect. Motor strength 5/5. No appreciable EOM palsy, facial droop or sensory deficit. Past History - Past Medical History Allergies/Adverse Reactions: Allergies Allergy/AdvReac Type Severity Reaction Status Date / Time aspirin Allergy Severe "NERVOUS" Verified 03/25/18 18:48 morphine Allergy Severe "ANXIETY-DE Verified 03/25/18 18:48 SPERATION" Home Medications: Ambulatory Orders Amlodipine Besylate 5 mg PO DAILY 11/06/17 Divalproex Sodium [Depakote] 500 mg PO BID 11/06/17 Famotidine 20 mg PO BID 11/06/17 Lisinopril [Prinivil] 5 mg PO DAILY #30 tablet 11/07/17 Anemia: Yes Asthma: No Cancer: No Cardiac Disorders: Yes (Chest pain) 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, baseline confusion and dizziness) COPD: Yes CHF: No DVT: No Dementia: No Diabetes: Yes GI Disorders: Yes (gerd, gastric ulcer, dysphagia) Disorders: Yes (kidney stone in the past) HTN: Yes Hypercholesterolemia: Yes Liver Disease: No Psychiatric Problems: Yes (ANXIETY DEPRESSION) Seizures: Yes (S/P craniotomy for benign tumor - on Depakote for seizure prophylaxis) Thyroid Disease: No - Surgical History Abdominal Surgery: Yes Appendectomy: No Cardiac Surgery: No Cholecystectomy: Yes Lung Surgery: No Neurologic Surgery: Yes (removal left meningioma, craniotomy) Orthopedic Surgery: Yes (bilat knee replacement) - Immunization History Td Vaccination: Yes TDAP Vaccination: No Immunization Up to Date: Yes - Suicide/Smoking/Psychosocial Hx Smoking Status: No Smoking History: Never smoked Have you smoked in the past 12 months: No Number of Cigarettes Smoked Daily: 0 Cigars Per Day: 0 Hx Alcohol Use: No Drug/Substance Use Hx: No Substance Use Type: None Hx Substance Use Treatment: No *Physical Exam - Vital Signs Last Vital Signs Temp Pulse Resp BP Pulse Ox 98.3 F 79 18 150/70 99 03/25/18 18:48 03/25/18 18:48 03/25/18 18:48 03/25/18 18:48 03/25/18 18:48 Moderate Sedation - Procedure Monitoring Vital Signs: Procedure Monitoring Vital Signs Temperature 98.3 F 03/25/18 18:48 Pulse Rate 79 03/25/18 18:48 Respiratory Rate 18 03/25/18 18:48 Blood Pressure 150/70 03/25/18 18:48 O2 Sat by Pulse Oximetry (%) 99 03/25/18 18:48 ED Treatment Course - LABORATORY CBC & Chemistry Diagram: 03/25/18 20:35 Medical Decision Making - Medical Decision Making 03/25/18 19:42 A/P: 72-year-old woman with headache and chest pain Tylenol 975 mg orally now BMP Cardiac profile EKG Reassess Likely discharge 03/25/18 22:23 EKG is sinus rhythm at rate of 70. Normal intervals noted. No ischemic changes present. No significant change from previous EKGs. Laboratory testing is normal. Patient's pain has resolved. I will discharge patient home to follow-up with her primary doctor as needed. *DC/Admit/Observation/Transfer Diagnosis at time of Disposition: Atypical chest pain Headache Qualifiers: Headache type: other headache syndrome Qualified Code(s): G44.89 - Other headache syndrome - Discharge Dispostion Disposition: HOME Condition at time of disposition: Fair Decision to Admit order: No - Referrals - Patient Instructions Additional Instructions: Take Tylenol as needed for headache. Return to emergency department for any concerns. - Post Discharge Activity
[2018-03-25] MEDS ORDERED: ACETAMINOPHEN 325 MG TABLET (FP) ONE (20:26)
[2018-03-25 21:17] LABS: ANION GAP 6 MMOL/L (8-16); BLOOD UREA NITROGEN 25 mg/dL (7-18); CALCIUM 8.6 mg/dL (8.5-10.1); CHLORIDE 104 mmol/L (98-107); CO2 25 mmol/L (21-32); CREATININE 0.6 mg/dL (0.55-1.3); GLUCOSE,RANDOM 120 mg/dL (74-106); POTASSIUM 4.4 mmol/L (3.5-5.1); SODIUM 135 mmol/L (136-145)
--- NOTE | 2018-03-26 10:05 | EKG ---
Test Reason : Blood Pressure : / mmHG Vent. Rate : 074 BPM Atrial Rate : 074 BPM P-R Int : 162 ms QRS Dur : 086 ms QT Int : 400 ms P-R-T Axes : 032 000 022 degrees QTc Int : 444 ms NORMAL SINUS RHYTHM NORMAL ECG WHEN COMPARED WITH ECG OF 21-MAR-2018 17:18, NO SIGNIFICANT CHANGE WAS FOUND Confirmed by J LUIS POWELL MD ([id number]) on 03/26/2018 10:05:24 AM Referred By: Confirmed By:J LUIS POWELL MD
== END 2018-03-25 23:52 | disposition home or self-care (01) ==
LOC: JER 18:43
DX: R07.89 Other chest pain (principal); G44.89 Other headache syndrome; I10 Essential (primary) hypertension; E78.00 Pure hypercholesterolemia, unspecified; E11.9 Type 2 diabetes mellitus without complications; D64.9 Anemia, unspecified; F41.8 Other specified anxiety disorders; F32.9 Major depressive disorder, single episode, unspecified; J44.9 Chronic obstructive pulmonary disease, unspecified; K21.9 Gastro-esophageal reflux disease without esophagitis; I69.810 Attention and concentration deficit following other cerebrovascular disease; I69.893 Ataxia following other cerebrovascular disease; Z87.442 Personal history of urinary calculi; Z86.011 Personal history of benign neoplasm of the brain; Z96.653 Presence of artificial knee joint, bilateral; Z87.19 Personal history of other diseases of the digestive system
CPT/HCPCS: 36415; 80048; 82550; 84484; 93005; 93010; 99284-25

== ENCOUNTER 2018-03-28 21:10 | Emergency (ER) | payer OTHER ==
--- NOTE | 2018-03-28 21:29 | PDOC ---
Rapid Medical Evaluation Time Seen by Provider: 03/28/18 21:23 Medical Evaluation: Allergies Allergy/AdvReac Type Severity Reaction Status Date / Time aspirin Allergy Severe "NERVOUS" Verified 03/25/18 18:48 morphine Allergy Severe "ANXIETY-DE Verified 03/25/18 18:48 SPERATION" 03/28/18 21:24 I have performed a brief in-person evaluation of this patient. The patient presents with a chief complaint of:L sided chest pain since today with radiation into the L arm and associated GALLARDO Pertinent physical exam findings: Alert, NAD I have ordered the following:Cardiac work up The patient will proceed to the ED for further evaluation. Discharge Disposition - Diagnosis Chest pain - Referrals - Patient Instructions - Post Discharge Activity
[2018-03-28 21:31] VITALS: BP 152/63; PULSE 74; TEMP 98.6; BMI 31.2
[2018-03-28 21:57] LABS: BASO % 0.6 % (0-2.0); EOS % 5.2 % (0-4.5); HEMATOCRIT 33.8 % (32.4-45.2); LYMPH % 21.2 % (8-40); MCH 24.8 pg (25.7-33.7); MCHC 32.4 g/dl (32.0-36.0); MEAN CELL VOLUME 76.5 fl (80-96); MEAN PLT VOLUME 7.5 fl (7.5-11.1); MONO % 12.7 % (3.8-10.2); NEUT % 60.3 % (42.8-82.8); PLATELET COUNT 315 K/MM3 (134-434); RBC 4.42 M/mm3 (3.60-5.2); WHITE BLOOD COUNT 5.9 K/mm3 (4.0-10.0)
[2018-03-28 22:09] LABS: INR 0.98 (0.83-1.09); PROTHROMBIN TIME (PATIENT) 11.6 SEC (9.7-13.0)
[2018-03-28 22:20] LABS: ALBUMIN 3.5 g/dl (3.4-5.0); ALK PHOS 178 U/L (45-117); ANION GAP 8 MMOL/L (8-16); BILIRUBIN,TOTAL 0.2 mg/dL (0.2-1); BLOOD UREA NITROGEN 13 mg/dL (7-18); CHLORIDE 104 mmol/L (98-107); CO2 26 mmol/L (21-32); CREATININE 0.6 mg/dL (0.55-1.3); GLUCOSE,RANDOM 104 mg/dL (74-106); MAGNESIUM 2.2 mg/dL (1.8-2.4); POTASSIUM 4.5 mmol/L (3.5-5.1); SGOT/AST 17 U/L (15-37); SGPT/ALT 23 U/L (13-61); SODIUM 138 mmol/L (136-145); TOT PROT 7.3 g/dl (6.4-8.2)
[2018-03-28 23:01] LABS: ANISOCYTOSIS 1+
[2018-03-29] MEDS ORDERED: ACETAMINOPHEN 325 MG TABLET (FP) PO ONE (00:46)
[2018-03-29] MEDS ORDERED: ACETAMINOPHEN 325 MG TABLET (FP) ONE (02:13)
--- NOTE | 2018-03-29 03:01 | PDOC ---
History of Present Illness - General Chief Complaint: Chest Pain Stated Complaint: HEADACHE/ LT BREAST PAIN Time Seen by Provider: 03/28/18 21:23 History Source: Patient - History of Present Illness Initial Comments: 03/29/18 03:06 This 72-year-old woman well-known to this emergency Department with history of chronic chest pain, CVA, COPD, GERD, PUD, hyperlipidemia, hypertension, seizures c/o left chest pain and headache. she had a most recent visit on 03/25 for similar complaints. patient is requesting tylenol Past History - Past Medical History Allergies/Adverse Reactions: Allergies Allergy/AdvReac Type Severity Reaction Status Date / Time aspirin Allergy Severe "NERVOUS" Verified 03/28/18 21:28 morphine Allergy Severe "ANXIETY-DE Verified 03/28/18 21:28 SPERATION" Home Medications: Ambulatory Orders Amlodipine Besylate 5 mg PO DAILY 11/06/17 Divalproex Sodium [Depakote] 500 mg PO BID 11/06/17 Famotidine 20 mg PO BID 11/06/17 Lisinopril [Prinivil] 5 mg PO DAILY #30 tablet 11/07/17 Anemia: Yes Asthma: No Cancer: No Cardiac Disorders: Yes (Chest pain) 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, baseline confusion and dizziness) COPD: Yes CHF: No DVT: No Dementia: No Diabetes: Yes GI Disorders: Yes (gerd, gastric ulcer, dysphagia) Disorders: Yes (kidney stone in the past) HTN: Yes Hypercholesterolemia: Yes Liver Disease: No Psychiatric Problems: Yes (ANXIETY DEPRESSION) Seizures: Yes (S/P craniotomy for benign tumor - on Depakote for seizure prophylaxis) Thyroid Disease: No - Surgical History Abdominal Surgery: Yes Appendectomy: No Cardiac Surgery: No Cholecystectomy: Yes Lung Surgery: No Neurologic Surgery: Yes (removal left meningioma, craniotomy) Orthopedic Surgery: Yes (bilat knee replacement) - Immunization History Td Vaccination: Yes TDAP Vaccination: No Immunization Up to Date: Yes - Suicide/Smoking/Psychosocial Hx Smoking Status: No Smoking History: Never smoked Have you smoked in the past 12 months: No Number of Cigarettes Smoked Daily: 0 Cigars Per Day: 0 Information on smoking cessation initiated: No Hx Alcohol Use: No Drug/Substance Use Hx: No Substance Use Type: None Hx Substance Use Treatment: No Review of Systems - Review of Systems Able to Perform ROS?: Yes Is the patient limited Urdu proficient: No Constitutional: No: Symptoms Reported, See HPI, Chills, Diaphoresis, Fever, Loss of Appetite, Malaise, Night Sweats, Weakness, Weight Stable, Unintentional Wgt. Loss, Unexplained wgt Loss, Other Cardiac (ROS): Yes: Chest Pain Neurological: Yes: Headache *Physical Exam - Vital Signs Last Vital Signs Temp Pulse Resp BP Pulse Ox 98.6 F 74 18 152/63 96 03/28/18 21:29 03/28/18 21:29 03/28/18 21:29 03/28/18 21:29 03/28/18 21:29 - Physical Exam General Appearance: Yes: Appropriately Dressed, Apparent Distress, Other ( walking around) Respiratory/Chest: positive: Chest Tender (left 3rd ICS tender to palpation) Cardiovascular: positive: Regular Rhythm, Regular Rate Gastrointestinal/Abdominal: positive: Normal Bowel Sounds, Soft. negative: Tender Integumentary: positive: Normal Color, Dry, Warm Neurologic: positive: Fully Oriented, Alert Moderate Sedation - Procedure Monitoring Vital Signs: Procedure Monitoring Vital Signs Temperature 98.6 F 03/28/18 21:29 Pulse Rate 74 03/28/18 21:29 Respiratory Rate 18 03/28/18 21:29 Blood Pressure 152/63 03/28/18 21:29 O2 Sat by Pulse Oximetry (%) 96 03/28/18 21:29 ED Treatment Course - LABORATORY CBC & Chemistry Diagram: 03/28/18 21:40 03/28/18 21:41 - ADDITIONAL ORDERS Additional order review: Laboratory Results 03/28/18 03/28/18 21:41 21:40 PT with INR 11.60 INR 0.98 Sodium 138 Potassium 4.5 Chloride 104 Carbon Dioxide 26 Anion Gap 8 BUN 13 Creatinine 0.6 Creat Clearance w eGFR > 60 Random Glucose 104 Calcium 9.0 Magnesium 2.2 Total Bilirubin 0.2 AST 17 ALT 23 Alkaline Phosphatase 178 H Creatine Kinase 65 Troponin I < 0.02 Total Protein 7.3 Albumin 3.5 03/28/18 21:40 RBC 4.42 MCV 76.5 L MCHC 32.4 RDW 21.0 H MPV 7.5 Neutrophils % 60.3 Lymphocytes % 21.2 Monocytes % 12.7 H Eosinophils % 5.2 H Basophils % 0.6 - Medications Given in the ED: ED Medications Discontinued Medications Generic Name Dose Route Start Last Admin Trade Name Chance PRN Reason Stop Dose Admin Acetaminophen 650 mg 03/29/18 00:46 03/29/18 02:15 Tylenol - PO 03/29/18 00:47 650 mg ONCE ONE Administration *DC/Admit/Observation/Transfer Diagnosis at time of Disposition: Chest pain Qualifiers: Chest pain type: unspecified Qualified Code(s): R07.9 - Chest pain, unspecified - Discharge Dispostion Disposition: HOME - Referrals Referrals: Waldo Mbary MD [Primary Care Provider] - - Patient Instructions Printed Discharge Instructions: DI for Atypical Chest Pain Additional Instructions: please follow up with a cardiology as soon as possible. Additional Instructions: * Please call your personal physician to report your Emergency Department visit and to report your progress, if any. * If there is no improvement in symptoms in 2 days call your physician. * Return to the Emergency Department for any worsening symptoms. - Post Discharge Activity
--- NOTE | 2018-03-29 15:40 | EKG ---
Test Reason : Blood Pressure : / mmHG Vent. Rate : 071 BPM Atrial Rate : 071 BPM P-R Int : 164 ms QRS Dur : 074 ms QT Int : 392 ms P-R-T Axes : 033 -12 011 degrees QTc Int : 425 ms NORMAL SINUS RHYTHM MINIMAL VOLTAGE CRITERIA FOR LVH, MAY BE NORMAL VARIANT BORDERLINE ECG WHEN COMPARED WITH ECG OF 25-MAR-2018 18:52, NO SIGNIFICANT CHANGE WAS FOUND Confirmed by JOSE SEVILLA, TERENCE ([id number]) on 03/29/2018 3:40:11 PM Referred By: Confirmed By:TERENCE GARCIA MD
== END 2018-03-29 03:46 | disposition home or self-care (01) ==
LOC: JER 21:10
DX: R07.9 Chest pain, unspecified (principal); D64.9 Anemia, unspecified; J44.9 Chronic obstructive pulmonary disease, unspecified; E11.9 Type 2 diabetes mellitus without complications; I10 Essential (primary) hypertension; E78.00 Pure hypercholesterolemia, unspecified; F41.8 Other specified anxiety disorders; F32.9 Major depressive disorder, single episode, unspecified; I69.810 Attention and concentration deficit following other cerebrovascular disease; I69.893 Ataxia following other cerebrovascular disease; Z87.19 Personal history of other diseases of the digestive system; Z87.442 Personal history of urinary calculi; Z96.653 Presence of artificial knee joint, bilateral; Z86.011 Personal history of benign neoplasm of the brain
CPT/HCPCS: 36415; 80053; 82550; 83735; 84484; 85025; 85610; 93005; 93010; 99282-25

== ENCOUNTER 2018-03-30 18:20 | Emergency (ER) | payer OTHER ==
[2018-03-30 18:29] VITALS: BP 130/71; PULSE 69; TEMP 98.1; BMI 28.2
--- NOTE | 2018-03-30 18:32 | PDOC ---
History of Present Illness - General Chief Complaint: Pain Stated Complaint: PAIN Time Seen by Provider: 03/30/18 18:28 History Source: Patient, Old Records Exam Limitations: No Limitations - History of Present Illness Initial Comments: 03/30/18 18:29 HISTORY OF PRESENT ILLNESS: This 72-year-old woman well-known to this emergency Department with history of chronic chest pain, CVA, COPD, GERD, PUD, hyperlipidemia, hypertension, seizures who presents emergency department for evaluation of her chronic chest pain and headache. Patient states this is the usual pain for which she seeks medical care. She states she has not taken any medications prior to arrival. She denies any shortness of breath, nausea, vomiting, dizziness, abdominal pain, dysuria, hematuria, rectal bleeding. No recent travel or sick contacts. PAST MEDICAL HISTORY: see HPI SURGICAL HISTORY: See HPI ALLERGIES: ASA, MSO4 REVIEW OF SYSTEMS General/Constitutional: Denies fever or chills. Denies weakness, weight change. HEENT: Denies change in vision. Denies ear pain or discharge. Denies sore throat. Cardiovascular: Left sided chest pain. Denies shortness of breath. Respiratory: Denies cough, wheezing, or hemoptysis. Gastrointestinal: Denies nausea, vomiting, diarrhea or constipation. Denies rectal bleeding. Genitourinary: Denies dysuria, frequency, or change in urination. Musculoskeletal: Denies joint or muscle swelling or pain. Denies neck or back pain. Skin and breasts: Denies rash or easy bruising. Neurologic: Fontal headache. Denies vertigo, loss of consciousness, or loss of sensation. Psychiatric: Denies depression or anxiety. Endocrine: Denies increased thirst. Denies abnormal weight change. Hematologic/Lymphatic: Denies anemia, easy bleeding, or history of blood clots. Allergic/Immunologic: Denies hives or skin allergy. Denies latex allergy. PHYSICAL EXAM General Appearance: Well-appearing, appropriately dressed. No apparent distress , no intoxication. HEENT: EOMI, PERRLA, normal ENT inspection, normal voice, TMs normal, pharynx normal. No conjunctival pallor. No photophobia, scleral icterus. Neck: Supple. Trachea midline. No tenderness, rigidity, carotid bruit, stridor , lymphadenopathy, or thyromegaly. Respiratory/Chest: Lungs CTAB. No shortness of breath, respiratory distress, accessory muscle use. No crackles, rales, rhonchi, stridor, wheezing, dullness. Chest TTP from 3rd ICS to 7th ICS on left side. Cardiovascular: RRR. S1, S2. No JVD, murmur, bradycardia, tachycardia. Vascular Pulses: Dorsalis-Pedis (R): 2+, Dorsalis-Pedis (L): 2+ Gastrointestinal/Abdominal: Normal bowel sounds. Abdomen soft, non-distended. No tenderness or rebound tenderness. No organomegaly, pulsatile mass, guarding, hernia, hepatomegaly, splenomegaly. Lymphatic: No adenopathy, tenderness. Musculoskeletal/Extremities: Normal inspection. FROM of all extremities, normal capillary refill. Pelvis Stable. No CVA tenderness. No tenderness to extremities, pedal edema, swelling, erythema or deformity. Integumentary: Appropriate color, dry, warm. No cyanosis, erythema, jaundice or rash Neurologic: third shift lieutenant II-XII intact. Fully oriented, alert. Appropriate mood/affect. Motor strength 5/5. No appreciable EOM palsy, facial droop or sensory deficit. Past History - Past Medical History Allergies/Adverse Reactions: Allergies Allergy/AdvReac Type Severity Reaction Status Date / Time aspirin Allergy Severe "NERVOUS" Verified 03/30/18 18:21 morphine Allergy Severe "ANXIETY-DE Verified 03/30/18 18:21 SPERATION" Home Medications: Ambulatory Orders Amlodipine Besylate 5 mg PO DAILY 11/06/17 Divalproex Sodium [Depakote] 500 mg PO BID 11/06/17 Famotidine 20 mg PO BID 11/06/17 Lisinopril [Prinivil] 5 mg PO DAILY #30 tablet 11/07/17 Anemia: Yes Asthma: No Cancer: No Cardiac Disorders: Yes (Chest pain) 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, baseline confusion and dizziness) COPD: Yes CHF: No DVT: No Dementia: No Diabetes: Yes GI Disorders: Yes (gerd, gastric ulcer, dysphagia) Disorders: Yes (kidney stone in the past) HTN: Yes Hypercholesterolemia: Yes Liver Disease: No Psychiatric Problems: Yes (ANXIETY DEPRESSION) Seizures: Yes (S/P craniotomy for benign tumor - on Depakote for seizure prophylaxis) Thyroid Disease: No - Surgical History Abdominal Surgery: Yes Appendectomy: No Cardiac Surgery: No Cholecystectomy: Yes Lung Surgery: No Neurologic Surgery: Yes (removal left meningioma, craniotomy) Orthopedic Surgery: Yes (bilat knee replacement) - Immunization History Td Vaccination: Yes TDAP Vaccination: No Immunization Up to Date: Yes - Suicide/Smoking/Psychosocial Hx Smoking Status: No Smoking History: Unknown if ever smoked Have you smoked in the past 12 months: No Number of Cigarettes Smoked Daily: 0 Cigars Per Day: 0 Hx Alcohol Use: No Drug/Substance Use Hx: No Substance Use Type: None Hx Substance Use Treatment: No *Physical Exam - Vital Signs Last Vital Signs Temp Pulse Resp BP Pulse Ox 98.1 F 69 26 H 130/71 98 03/30/18 18:21 03/30/18 18:21 03/30/18 18:21 03/30/18 18:21 03/30/18 18:21 Moderate Sedation - Procedure Monitoring Vital Signs: Procedure Monitoring Vital Signs Temperature 98.1 F 03/30/18 18:21 Pulse Rate 69 03/30/18 18:21 Respiratory Rate 26 H 03/30/18 18:21 Blood Pressure 130/71 03/30/18 18:21 O2 Sat by Pulse Oximetry (%) 98 03/30/18 18:21 ED Treatment Course - LABORATORY CBC & Chemistry Diagram: 03/30/18 18:31 Medical Decision Making - Medical Decision Making 03/30/18 18:53 A/P: 72-year-old woman with chest pain and headache EKG sinus rhythm at rate of 83. Normal intervals noted. No ischemic changes present. EKG grossly unchanged from previous study. BMP, cardiac profile Chest x-ray Reassess 03/30/18 19:46 Laboratory testing is unremarkable. Chest x-ray reveals no acute process. Unchanged from film performed 03/16/18. Discharge home *DC/Admit/Observation/Transfer Diagnosis at time of Disposition: Atypical chest pain Chronic headache Qualifiers: Headache type: unspecified Intractability: not intractable Qualified Code(s): R51 - Headache - Discharge Dispostion Disposition: HOME Condition at time of disposition: Stable Decision to Admit order: No - Referrals Referrals: Waldo Mabry MD [Primary Care Provider] - - Patient Instructions Additional Instructions: Your testing today was unchanged from previous visits. Follow-up to primary doctor for continued evaluation of your chronic chest pain. Return to emergency department for any concerns. Perla prueba de hoy no javed cambiado desde las visitas anteriores. Seguimiento al mdico de cabecera para tavo evaluacin continua de perla dolor torcico crnico. Regrese al departamento de emergencias para cualquier inquietud. - Post Discharge Activity
[2018-03-30 19:39] LABS: ANION GAP 8 MMOL/L (8-16); BLOOD UREA NITROGEN 13 mg/dL (7-18); CALCIUM 8.9 mg/dL (8.5-10.1); CHLORIDE 104 mmol/L (98-107); CO2 24 mmol/L (21-32); CREATININE 0.6 mg/dL (0.55-1.3); GLUCOSE,RANDOM 100 mg/dL (74-106); POTASSIUM 4.3 mmol/L (3.5-5.1); SODIUM 136 mmol/L (136-145)
--- NOTE | 2018-03-31 13:02 | EKG ---
Test Reason : Blood Pressure : / mmHG Vent. Rate : 083 BPM Atrial Rate : 083 BPM P-R Int : 154 ms QRS Dur : 072 ms QT Int : 364 ms P-R-T Axes : 021 -15 006 degrees QTc Int : 427 ms POOR DATA QUALITY, INTERPRETATION MAY BE ADVERSELY AFFECTED NORMAL SINUS RHYTHM POOR R WAVE PROGRESSION WHEN COMPARED WITH ECG OF 28-MAR-2018 21:20, NO SIGNIFICANT CHANGE WAS FOUND Confirmed by LARA SARMIENTO MD ([id number]) on 03/31/2018 1:02:33 PM Referred By: Confirmed By:LARA SARMIENTO MD
== END 2018-03-30 20:01 | disposition home or self-care (01) ==
LOC: JERFT 18:20
DX: R07.89 Other chest pain (principal); D64.9 Anemia, unspecified; J44.9 Chronic obstructive pulmonary disease, unspecified; I10 Essential (primary) hypertension; E11.9 Type 2 diabetes mellitus without complications; F41.8 Other specified anxiety disorders; F32.9 Major depressive disorder, single episode, unspecified; E78.00 Pure hypercholesterolemia, unspecified; Z87.19 Personal history of other diseases of the digestive system; Z96.653 Presence of artificial knee joint, bilateral; Z87.442 Personal history of urinary calculi; Z86.011 Personal history of benign neoplasm of the brain
CPT/HCPCS: 36415; 71046-TC-FY; 80048; 82550; 84484; 93005; 93010; 99281-25

== ENCOUNTER 2018-04-01 05:32 | Emergency (ER) | payer OTHER ==
[2018-04-01 05:47] VITALS: BP 131/59; PULSE 74; TEMP 98.3; BMI 31.1
--- NOTE | 2018-04-01 06:24 | PDOC ---
History of Present Illness - General Chief Complaint: Chest Pain Stated Complaint: CHEST DISCOMFORT Time Seen by Provider: 04/01/18 06:02 History Source: Patient Exam Limitations: No Limitations - History of Present Illness Initial Comments: 04/01/18 06:15 Patient is a 72year old female with h/o chronic chest pain, CVA, COPD, GERD, PUD , Hyperlipidemia, HTN, seizures, cholecystectomy c/o left chest pain which started 9am yesterday morning. States pain is 3/10 continuos, worse with palpations. She took tylenol yesterday morning but has not taken anything since. She has been in the ED on many occasion for this pain treated with tylenol and states this pain is no different from the prior visits. Was last seen in the ED on 03/29 and . Lab work which included trop was neg and EKG unchanged from prior. Denies any associated symptoms sob, nausea, vomiting. PMD: Dr. Mabry PMHX: as above PSOCHX: neg cig, drug, etoh ALL: ASA, Morphine GENERAL/CONSTITUTIONAL: No fever or chills. No weakness. No weight change. HEAD, EYES, EARS, NOSE AND THROAT: No change in vision. No ear pain or discharge. No sore throat. CARDIOVASCULAR: (+) chest pain or shortness of breath. RESPIRATORY: No cough, wheezing, or hemoptysis. GASTROINTESTINAL: No nausea, vomiting, diarrhea or constipation. No rectal bleeding. GENITOURINARY: No dysuria, frequency, or change in urination. MUSCULOSKELETAL: No joint or muscle swelling or pain. No neck or back pain. SKIN AND BREASTS: No rash or easy bruising. NEUROLOGIC: No headache, vertigo, loss of consciousness, or loss of sensation. PSYCHIATRIC: (+) depression anxiety. ENDOCRINE: No increased thirst. No abnormal weight change. HEMATOLOGIC/LYMPHATIC: No anemia, easy bleeding, or history of blood clots. ALLERGIC/IMMUNOLOGIC: No hives or skin allergy. No latex allergy. GENERAL: The patient is awake, alert, and fully oriented, in no acute distress. HEAD: Normal with no signs of trauma. EYES: Pupils equal, round and reactive to light, extraocular movements intact, sclera anicteric, conjunctiva clear. ENT: Ears normal, nares patent, oropharynx clear without exudates. Moist mucous membranes. NECK: Normal range of motion, supple without lymphadenopathy, JVD, or masses. LUNGS: Breath sounds equal, clear to auscultation bilaterally. No wheezes, and no crackles, (+) tenderness left breast to palpation HEART: Regular rate and rhythm, normal S1 and S2 without murmur, rub. ABDOMEN: Soft, nontender, normoactive bowel sounds. No guarding, no rebound. No masses. EXTREMITIES: Normal range of motion, no edema of lower ext. No clubbing or cyanosis. No cords, erythema, or tenderness. NEUROLOGICAL: Cranial nerves II through XII grossly intact. Normal speech, normal gait. PSYCH: Normal mood, normal affect. SKIN: Warm, Dry, normal turgor, no rashes or lesions noted. Past History - Past Medical History Allergies/Adverse Reactions: Allergies Allergy/AdvReac Type Severity Reaction Status Date / Time aspirin Allergy Severe "NERVOUS" Verified 04/01/18 05:46 morphine Allergy Severe "ANXIETY-DE Verified 04/01/18 05:46 SPERATION" Home Medications: Ambulatory Orders Amlodipine Besylate 5 mg PO DAILY 11/06/17 Divalproex Sodium [Depakote] 500 mg PO BID 11/06/17 Famotidine 20 mg PO BID 11/06/17 Lisinopril [Prinivil] 5 mg PO DAILY #30 tablet 11/07/17 Anemia: Yes Asthma: No Cancer: No Cardiac Disorders: Yes (Chest pain) 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, baseline confusion and dizziness) COPD: Yes CHF: No DVT: No Dementia: No Diabetes: Yes GI Disorders: Yes (gerd, gastric ulcer, dysphagia) Disorders: Yes (kidney stone in the past) HTN: Yes Hypercholesterolemia: Yes Liver Disease: No Psychiatric Problems: Yes (ANXIETY DEPRESSION) Seizures: Yes (S/P craniotomy for benign tumor - on Depakote for seizure prophylaxis) Thyroid Disease: No - Surgical History Abdominal Surgery: Yes Appendectomy: No Cardiac Surgery: No Cholecystectomy: Yes Lung Surgery: No Neurologic Surgery: Yes (removal left meningioma, craniotomy) Orthopedic Surgery: Yes (bilat knee replacement) - Immunization History Td Vaccination: Yes TDAP Vaccination: No Immunization Up to Date: Yes - Suicide/Smoking/Psychosocial Hx Smoking Status: No Smoking History: Never smoked Have you smoked in the past 12 months: No Number of Cigarettes Smoked Daily: 0 Cigars Per Day: 0 Hx Alcohol Use: No Drug/Substance Use Hx: No Substance Use Type: None Hx Substance Use Treatment: No Cardiac Specific PMH - Complaint Specific PMHX Pacemaker: No *Physical Exam - Vital Signs Last Vital Signs Temp Pulse Resp BP Pulse Ox 98.3 F 74 18 131/59 L 96 04/01/18 05:39 04/01/18 05:39 04/01/18 05:39 04/01/18 05:39 04/01/18 05:39 Moderate Sedation - Procedure Monitoring Vital Signs: Procedure Monitoring Vital Signs Temperature 98.3 F 04/01/18 05:39 Pulse Rate 74 04/01/18 05:39 Respiratory Rate 18 04/01/18 05:39 Blood Pressure 131/59 L 04/01/18 05:39 O2 Sat by Pulse Oximetry (%) 96 04/01/18 05:39 ED Treatment Course - Medications Given in the ED: ED Medications Discontinued Medications Generic Name Dose Route Start Last Admin Trade Name Freq PRN Reason Stop Dose Admin Acetaminophen 975 mg 04/01/18 06:26 04/01/18 06:37 Tylenol - PO 04/01/18 06:27 975 mg ONCE ONE Administration Medical Decision Making - Medical Decision Making 04/01/18 06:15 Patient is a 72year old female with h/o chronic chest pain, CVA, COPD, GERD, PUD , Hyperlipidemia, HTN, seizures c/o left chest pain which started 9am yesterday morning. States pain is 3/10 continuos, worse with palpations. She took tylenol yesterday morning but has not taken anything since. She has been in the ED on many occasion for this pain treated with tylenol and states this pain is no different from the prior visits. Was last seen in the ED on 03/29 and . Lab work which included trop was neg and EKG unchanged from prior. Denies any associated symptoms sob, nausea, vomiting. ekg to assess for any change will discharge if unchanged. 04/01/18 06:52 EKG SR rate 74, NAD, (-) ST-T wave changes Patient received tylenol and feels improved requesting to go home I discussed the physical exam findings, ancillary test results and final diagnoses with the patient. I answered all of the patient's questions. The patient was satisfied with the care received and felt comfortable with the discharge plan and treatment plan. The Patient agrees to follow up with the primary care physician within 24-72 hours. *DC/Admit/Observation/Transfer Diagnosis at time of Disposition: Atypical chest pain - Discharge Dispostion Disposition: HOME Condition at time of disposition: Stable - Referrals Referrals: Waldo Mabry MD [Primary Care Provider] - - Patient Instructions Printed Discharge Instructions: DI for Atypical Chest Pain Additional Instructions: Your Discharge Instructions: You must call primary care physician within 24 hours to arrange follow-up. Return to the Emergency Department with any new, persistent or worsening symptoms, for fever, chills, SOB, dizziness or any other concerning changes that may occur. - Post Discharge Activity
[2018-04-01] MEDS ORDERED: ACETAMINOPHEN 500 MG TABLET (FP) PO ONE (06:26)
--- NOTE | 2018-04-01 12:46 | EKG ---
Test Reason : Blood Pressure : / mmHG Vent. Rate : 074 BPM Atrial Rate : 074 BPM P-R Int : 160 ms QRS Dur : 072 ms QT Int : 398 ms P-R-T Axes : 048 013 041 degrees QTc Int : 441 ms NORMAL SINUS RHYTHM NORMAL ECG Confirmed by LARA SARMIENTO MD ([id number]) on 04/01/2018 12:46:35 PM Referred By: Confirmed By:LARA SARMIENTO MD
== END 2018-04-01 06:57 | disposition home or self-care (01) ==
LOC: JER 05:32
DX: R07.9 Chest pain, unspecified (principal); D64.9 Anemia, unspecified; J44.9 Chronic obstructive pulmonary disease, unspecified; I10 Essential (primary) hypertension; E11.9 Type 2 diabetes mellitus without complications; E78.00 Pure hypercholesterolemia, unspecified; F41.8 Other specified anxiety disorders; F32.9 Major depressive disorder, single episode, unspecified; R56.9 Unspecified convulsions; I69.810 Attention and concentration deficit following other cerebrovascular disease; I69.893 Ataxia following other cerebrovascular disease; Z86.011 Personal history of benign neoplasm of the brain; Z96.653 Presence of artificial knee joint, bilateral; Z87.442 Personal history of urinary calculi
CPT/HCPCS: 93005; 93010; 99281-25

== ENCOUNTER 2018-04-01 17:26 | Emergency (ER) | payer OTHER ==
[2018-04-01 17:53] VITALS: BP 110/50; PULSE 80; TEMP 97.9; BMI 28.2
--- NOTE | 2018-04-01 19:59 | PDOC ---
History of Present Illness - General Chief Complaint: Pain Stated Complaint: CHEST PAIN Time Seen by Provider: 04/01/18 19:42 History Source: Patient Exam Limitations: No Limitations - History of Present Illness Initial Comments: 04/01/18 20:18 Patient is a 72-year-old female with h/o chronic chest pain, CVA, COPD, GERD, PUD, hyperlipidemia, HTN, seizure, cholecystectomy, complaining of left chest pain for which the patient was here this morning for. She was given Tylenol and went home, was feeling better until the tylenol wore off and thus came back to the emergency room for pain again. States the pain is 3/10 and worse with palpation of the left breast. Denies sob, nausea, vomiting. PMD: Dr. Mabry PMHX: as above PSOCHX: neg cig, drug, etoh ALL: ASA, Morphine GENERAL/CONSTITUTIONAL: [No fever or chills. No weakness. No weight change.] HEAD, EYES, EARS, NOSE AND THROAT: [No change in vision. No ear pain or discharge. No sore throat.] CARDIOVASCULAR: (+) chest pain (-) shortness of breath.] RESPIRATORY: [No cough, wheezing, or hemoptysis.] GASTROINTESTINAL: [No nausea, vomiting, diarrhea or constipation. No rectal bleeding.] GENITOURINARY: [No dysuria, frequency, or change in urination.] MUSCULOSKELETAL: [No joint or muscle swelling or pain. No neck or back pain.] SKIN AND BREASTS: [No rash or easy bruising.] NEUROLOGIC: [No headache, vertigo, loss of consciousness, or loss of sensation.] PSYCHIATRIC: [No depression or anxiety.] ENDOCRINE: [No increased thirst. No abnormal weight change.] HEMATOLOGIC/LYMPHATIC: [No anemia, easy bleeding, or history of blood clots.] ALLERGIC/IMMUNOLOGIC: [No hives or skin allergy. No latex allergy.] GENERAL: [The patient is awake, alert, and fully oriented, in no acute distress.] HEAD: [Normal with no signs of trauma.] EYES: [Pupils equal, round and reactive to light, extraocular movements intact, sclera anicteric, conjunctiva clear.] ENT: [Ears normal, nares patent, oropharynx clear without exudates. Moist mucous membranes.] NECK: [Normal range of motion, supple without lymphadenopathy, JVD, or masses.] LUNGS: [Breath sounds equal, clear to auscultation bilaterally. No wheezes, and no crackles.] HEART: [Regular rate and rhythm, normal S1 and S2 without murmur, rub.] ABDOMEN: [Soft, nontender, normoactive bowel sounds. No guarding, no rebound. No masses.] EXTREMITIES: [Normal range of motion, no edema. No clubbing or cyanosis. No cords, erythema, or tenderness.] NEUROLOGICAL: [Cranial nerves II through XII grossly intact. Normal speech, normal gait.] PSYCH: [Normal mood, normal affect.] SKIN: [Warm, Dry, normal turgor, no rashes or lesions noted.] Past History - Past Medical History Allergies/Adverse Reactions: Allergies Allergy/AdvReac Type Severity Reaction Status Date / Time aspirin Allergy Severe "NERVOUS" Verified 04/01/18 05:46 morphine Allergy Severe "ANXIETY-DE Verified 04/01/18 05:46 SPERATION" Home Medications: Ambulatory Orders Amlodipine Besylate 5 mg PO DAILY 11/06/17 Divalproex Sodium [Depakote] 500 mg PO BID 11/06/17 Famotidine 20 mg PO BID 11/06/17 Lisinopril [Prinivil] 5 mg PO DAILY #30 tablet 11/07/17 Anemia: Yes Asthma: No Cancer: No Cardiac Disorders: Yes (Chest pain) 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, baseline confusion and dizziness) COPD: Yes CHF: No DVT: No Dementia: No Diabetes: Yes GI Disorders: Yes (gerd, gastric ulcer, dysphagia) Disorders: Yes (kidney stone in the past) HTN: Yes Hypercholesterolemia: Yes Liver Disease: No Psychiatric Problems: Yes (ANXIETY DEPRESSION) Seizures: Yes (S/P craniotomy for benign tumor - on Depakote for seizure prophylaxis) Thyroid Disease: No - Surgical History Abdominal Surgery: Yes Appendectomy: No Cardiac Surgery: No Cholecystectomy: Yes Lung Surgery: No Neurologic Surgery: Yes (removal left meningioma, craniotomy) Orthopedic Surgery: Yes (bilat knee replacement) - Immunization History Td Vaccination: Yes TDAP Vaccination: No Immunization Up to Date: Yes - Suicide/Smoking/Psychosocial Hx Smoking Status: No Smoking History: Unknown if ever smoked Have you smoked in the past 12 months: No Number of Cigarettes Smoked Daily: 0 Cigars Per Day: 0 Hx Alcohol Use: No Drug/Substance Use Hx: No Substance Use Type: None Hx Substance Use Treatment: No Cardiac Specific PMH - Complaint Specific PMHX Pacemaker: No *Physical Exam - Vital Signs Last Vital Signs Temp Pulse Resp BP Pulse Ox 97.9 F 80 26 H 110/50 L 96 04/01/18 17:49 04/01/18 17:49 04/01/18 17:49 04/01/18 17:49 04/01/18 17:49 Moderate Sedation - Procedure Monitoring Vital Signs: Procedure Monitoring Vital Signs Temperature 97.9 F 04/01/18 17:49 Pulse Rate 80 04/01/18 17:49 Respiratory Rate 26 H 04/01/18 17:49 Blood Pressure 110/50 L 04/01/18 17:49 O2 Sat by Pulse Oximetry (%) 96 04/01/18 17:49 Medical Decision Making - Medical Decision Making 04/01/18 20:18 Patient is a 72-year-old female with h/o chronic chest pain, CVA, COPD, GERD, PUD, hyperlipidemia, HTN, seizure, cholecystectomy, complaining of left chest pain for which the patient was here this morning for. She was given Tylenol and went home, was feeling better until the tylenol wore off and thus came back to the emergency room for pain again. States the pain is 3/10 and worse with palpation of the left breast. Denies sob, nausea, vomiting. On exam has tenderness to the left breast. Will give Tylenol, EKG obtained in triage, we will discharge after Tylenol. EKG: S saw 74, NAD, no ST-T wave changes I discussed the physical exam findings, ancillary test results and final diagnoses with the patient. I answered all of the patient's questions. The patient was satisfied with the care received and felt comfortable with the discharge plan and treatment plan. The Patient agrees to follow up with the primary care physician within 24-72 hours. *DC/Admit/Observation/Transfer Diagnosis at time of Disposition: Atypical chest pain - Discharge Dispostion Disposition: HOME Condition at time of disposition: Stable - Referrals - Patient Instructions Printed Discharge Instructions: DI for Atypical Chest Pain Additional Instructions: Your Discharge Instructions: You must call primary care physician within 24 hours to arrange follow-up. Return to the Emergency Department with any new, persistent or worsening symptoms, for fever, chills, SOB, dizziness or any other concerning changes that may occur. - Post Discharge Activity
[2018-04-01] MEDS ORDERED: ACETAMINOPHEN 500 MG TABLET (FP) PO ONE (20:35)
[2018-04-01] MEDS ORDERED: ACETAMINOPHEN 325 MG TABLET (FP) ONE (20:49)
--- NOTE | 2018-04-02 12:12 | EKG ---
Test Reason : Blood Pressure : / mmHG Vent. Rate : 074 BPM Atrial Rate : 074 BPM P-R Int : 138 ms QRS Dur : 072 ms QT Int : 396 ms P-R-T Axes : 013 005 018 degrees QTc Int : 439 ms NORMAL SINUS RHYTHM NORMAL ECG WHEN COMPARED WITH ECG OF 01-APR-2018 06:48, NO SIGNIFICANT CHANGE WAS FOUND Confirmed by J LUIS POWELL MD ([id number]) on 04/02/2018 12:11:53 PM Referred By: Confirmed By:J LUIS POWELL MD
== END 2018-04-01 21:02 | disposition home or self-care (01) ==
LOC: JER 17:26
DX: R07.9 Chest pain, unspecified (principal); D64.9 Anemia, unspecified; J44.9 Chronic obstructive pulmonary disease, unspecified; I10 Essential (primary) hypertension; E11.9 Type 2 diabetes mellitus without complications; E78.00 Pure hypercholesterolemia, unspecified; F41.8 Other specified anxiety disorders; F32.9 Major depressive disorder, single episode, unspecified; I69.810 Attention and concentration deficit following other cerebrovascular disease; I69.893 Ataxia following other cerebrovascular disease; Z87.19 Personal history of other diseases of the digestive system; Z86.011 Personal history of benign neoplasm of the brain; Z87.442 Personal history of urinary calculi; Z96.653 Presence of artificial knee joint, bilateral
CPT/HCPCS: 93005; 93010; 99281-25

== ENCOUNTER 2018-04-03 00:01 | Emergency (ER) | payer OTHER ==
[2018-04-03] MEDS ORDERED: ACETAMINOPHEN 325 MG TABLET (FP) PO ONE ×2 (00:46→05:26)
--- NOTE | 2018-04-03 00:46 | PDOC ---
History of Present Illness - General Chief Complaint: Chest Pain Stated Complaint: CHEST PAIN,HEADACHE Time Seen by Provider: 04/03/18 00:45 History Source: Patient - History of Present Illness Initial Comments: 04/03/18 00:48 72-year-old woman well-known to this emergency Department with history of chronic chest pain, CVA, COPD, GERD, PUD, hyperlipidemia, hypertension, seizures c/o left breast pain/ chest pain and headache. patient was seen in this ER 1 day ago for same complaint. multiple visits with similar complaint of chronic chest / breast pain. patient report taking tylenol in the morning. Past History - Past Medical History Allergies/Adverse Reactions: Allergies Allergy/AdvReac Type Severity Reaction Status Date / Time aspirin Allergy Severe "NERVOUS" Verified 04/01/18 05:46 morphine Allergy Severe "ANXIETY-DE Verified 04/01/18 05:46 SPERATION" Home Medications: Ambulatory Orders Amlodipine Besylate 5 mg PO DAILY 11/06/17 Divalproex Sodium [Depakote] 500 mg PO BID 11/06/17 Famotidine 20 mg PO BID 11/06/17 Lisinopril [Prinivil] 5 mg PO DAILY #30 tablet 11/07/17 Anemia: Yes Asthma: No Cancer: No Cardiac Disorders: Yes (Chest pain) 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, baseline confusion and dizziness) COPD: Yes CHF: No DVT: No Dementia: No Diabetes: Yes GI Disorders: Yes (gerd, gastric ulcer, dysphagia) Disorders: Yes (kidney stone in the past) HTN: Yes Hypercholesterolemia: Yes Liver Disease: No Psychiatric Problems: Yes (ANXIETY DEPRESSION) Seizures: Yes (S/P craniotomy for benign tumor - on Depakote for seizure prophylaxis) Thyroid Disease: No - Surgical History Abdominal Surgery: Yes Appendectomy: No Cardiac Surgery: No Cholecystectomy: Yes Lung Surgery: No Neurologic Surgery: Yes (removal left meningioma, craniotomy) Orthopedic Surgery: Yes (bilat knee replacement) - Immunization History Td Vaccination: Yes TDAP Vaccination: No Immunization Up to Date: Yes - Suicide/Smoking/Psychosocial Hx Smoking Status: No Smoking History: Never smoked Have you smoked in the past 12 months: No Number of Cigarettes Smoked Daily: 0 Cigars Per Day: 0 Hx Alcohol Use: No Drug/Substance Use Hx: No Substance Use Type: None Hx Substance Use Treatment: No Cardiac Specific PMH - Complaint Specific PMHX Pacemaker: No Review of Systems - Review of Systems Able to Perform ROS?: Yes Is the patient limited Khmer proficient: No Constitutional: No: Symptoms Reported, See HPI, Chills, Diaphoresis, Fever, Loss of Appetite, Malaise, Night Sweats, Weakness, Weight Stable, Unintentional Wgt. Loss, Unexplained wgt Loss, Other Respiratory: No: Symptoms reported, See HPI, Cough, Orthopnea, Shortness of Breath, SOB with Exertion, SOB at Rest, Stridor, Wheezing, Productive cough, Hemoptysis, Other Cardiac (ROS): Yes: Chest Pain. No: Symptoms Reported, See HPI, Edema, Irregular Heart Rate, Lightheadedness, Palpitations, Syncope, Chest Tightness, Other *Physical Exam - Vital Signs Last Vital Signs Temp Pulse Resp BP Pulse Ox 98.4 F 85 18 148/87 95 04/03/18 00:46 04/03/18 00:46 04/03/18 00:46 04/03/18 00:46 04/03/18 00:46 - Physical Exam General Appearance: Yes: Appropriately Dressed Respiratory/Chest: positive: Chest Tender (left breast/ chest . no palpable mass ), Lungs Clear, Normal Breath Sounds Cardiovascular: positive: Regular Rhythm, Regular Rate Gastrointestinal/Abdominal: positive: Normal Bowel Sounds, Soft Heart Score/ECG Review - ECG Intrepretation Rhythm: Regular Rhythm Comment:: 04/03/18 00:52 NSR: Moderate Sedation - Procedure Monitoring Vital Signs: Procedure Monitoring Vital Signs Temperature 98.4 F 04/03/18 00:46 Pulse Rate 85 04/03/18 00:46 Respiratory Rate 18 04/03/18 00:46 Blood Pressure 148/87 04/03/18 00:46 O2 Sat by Pulse Oximetry (%) 95 04/03/18 00:46 ED Treatment Course - Medications Given in the ED: ED Medications Discontinued Medications Generic Name Dose Route Start Last Admin Trade Name Freq PRN Reason Stop Dose Admin Acetaminophen 650 mg 04/03/18 00:46 04/03/18 00:57 Tylenol - PO 04/03/18 00:47 650 mg ONCE ONE Administration Acetaminophen 650 mg 04/03/18 05:26 04/03/18 05:29 Tylenol - PO 04/03/18 05:27 650 mg ONCE ONE Administration Sodium Chloride 3 ml 04/03/18 03:14 04/03/18 03:45 Normal Saline For Inhalation - IH 04/03/18 03:15 3 ml ONCE ONE Administration Medical Decision Making - Medical Decision Making A: Atypical chest pain P: EKG tylenol d.c home *DC/Admit/Observation/Transfer Diagnosis at time of Disposition: Atypical chest pain - Discharge Dispostion Disposition: HOME - Referrals Referrals: Waldo Mabry MD [Primary Care Provider] - - Patient Instructions Printed Discharge Instructions: DI for Atypical Chest Pain Additional Instructions: 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 Additional Instructions: * Please call your personal physician to report your Emergency Department visit and to report your progress, if any. * If there is no improvement in symptoms in 2 days call your physician. * Return to the Emergency Department for any worsening symptoms. - Post Discharge Activity
[2018-04-03] MEDS ORDERED: ACETAMINOPHEN 325 MG TABLET (FP) ONE ×2 (00:55→05:27)
--- NOTE | 2018-04-03 00:55 | PDOC ---
*Physical Exam - Vital Signs Last Vital Signs Temp Pulse Resp BP Pulse Ox 98.4 F 85 18 148/87 95 04/03/18 00:46 04/03/18 00:46 04/03/18 00:46 04/03/18 00:46 04/03/18 00:46 Medical Decision Making - Medical Decision Making 04/03/18 00:54 Patient seen by the advanced practice provider under my direct supervision. Ancillary testing reviewed as necessary. I agree with plan as outlined by the advanced practice provider. *DC/Admit/Observation/Transfer Diagnosis at time of Disposition: Atypical chest pain - Referrals Referrals: Waldo Mabry MD [Primary Care Provider] - - Patient Instructions - Post Discharge Activity
[2018-04-03 01:02] VITALS: BP 148/87; PULSE 85; TEMP 98.4; BMI 32.0
[2018-04-03] MEDS ORDERED: SODIUM CHLORIDE FOR INHALATION 3 ML VIAL.NEB IH ONE (03:14)
--- NOTE | 2018-04-03 11:53 | EKG ---
Test Reason : Blood Pressure : / mmHG Vent. Rate : 077 BPM Atrial Rate : 077 BPM P-R Int : 164 ms QRS Dur : 086 ms QT Int : 394 ms P-R-T Axes : 041 -09 016 degrees QTc Int : 445 ms NORMAL SINUS RHYTHM NORMAL ECG WHEN COMPARED WITH ECG OF 01-APR-2018 18:01, NO SIGNIFICANT CHANGE WAS FOUND Confirmed by MD NHUNG, MADELEINE ([id number]) on 04/03/2018 11:52:42 AM Referred By: Confirmed By:MADELEINE HOOKER MD
== END 2018-04-03 05:59 | disposition home or self-care (01) ==
LOC: JER 00:01
PROC: 3E0F7GC Introduction of Other Therapeutic Substance into Respiratory Tract, Via Natural or Artificial Opening (ICD-10-PCS; principal; 2018-04-03)
DX: R07.89 Other chest pain (principal); I10 Essential (primary) hypertension; E78.00 Pure hypercholesterolemia, unspecified; E11.9 Type 2 diabetes mellitus without complications; K21.9 Gastro-esophageal reflux disease without esophagitis; F41.8 Other specified anxiety disorders; F32.9 Major depressive disorder, single episode, unspecified; D64.9 Anemia, unspecified; J44.9 Chronic obstructive pulmonary disease, unspecified; I69.810 Attention and concentration deficit following other cerebrovascular disease; I69.893 Ataxia following other cerebrovascular disease; Z87.19 Personal history of other diseases of the digestive system; Z87.442 Personal history of urinary calculi; Z86.011 Personal history of benign neoplasm of the brain; Z86.69 Personal history of other diseases of the nervous system and sense organs; Z96.653 Presence of artificial knee joint, bilateral
CPT/HCPCS: 93005; 93010; 94640; 99281-25

== ENCOUNTER 2018-04-03 20:51 | Emergency (ER) | payer OTHER ==
--- NOTE | 2018-04-03 21:08 | PDOC ---
Rapid Medical Evaluation Chief Complaint: Chest Pain Time Seen by Provider: 04/03/18 21:06 Medical Evaluation: Allergies Allergy/AdvReac Type Severity Reaction Status Date / Time aspirin Allergy Severe "NERVOUS" Verified 04/01/18 05:46 morphine Allergy Severe "ANXIETY-DE Verified 04/01/18 05:46 SPERATION" 04/03/18 21:06 I have performed a brief in person evaluation of this patient. CC: CP HPI: Pt is a 72 YO female who complains of CP x 1 day. PE: Skin: Clear Lungs: Clear Heart:RRR Abd: soft, nontender MS: Moves all extremities without difficulty Neuro: Alert and oriented Psych: Appropriate affect I have ordered the following: EKG Pt will proceed to the main ED for further evaluation. Discharge Disposition - Diagnosis Chest pain Qualifiers: Chest pain type: unspecified Qualified Code(s): R07.9 - Chest pain, unspecified - Referrals - Patient Instructions - Post Discharge Activity
[2018-04-03 21:12] VITALS: BP 138/72; PULSE 75; TEMP 98.2; BMI 31.1
--- NOTE | 2018-04-03 22:21 | PDOC ---
History of Present Illness - General History Source: Patient Exam Limitations: No Limitations <Domonique Wilkerson - Last Filed: 04/03/18 23:09> <Florinda Gallagher - Last Filed: 04/03/18 23:43> - General Chief Complaint: Chest Pain Stated Complaint: CHEST PAIN Time Seen by Provider: 04/03/18 21:06 - History of Present Illness Initial Comments: 04/03/18 23:09 The patient is a 72 year old female, well know to the ED, with a significant past medical history of anemia, COPD, diabetes, hypertension, hypercholesterolemia, GERD, kidney stones who presents to the emergency department with chest pain since earlier today. It is noted that the patient was in the ED earlier today. The patient also reports a episode of headache. She denies any lightheadedness, weakness, numbness. She denies any fever, chills , nausea, vomiting, diarrhea, constipation or urinary symptoms. The patient denies any other complaints. (Domonique Wilkerson) Past History <Domonique iWlkerson - Last Filed: 04/03/18 23:09> - Past Medical History Anemia: Yes Asthma: No Cancer: No Cardiac Disorders: Yes (Chest pain) 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, baseline confusion and dizziness) COPD: Yes CHF: No DVT: No Dementia: No Diabetes: Yes GI Disorders: Yes (gerd, gastric ulcer, dysphagia) Disorders: Yes (kidney stone in the past) HTN: Yes Hypercholesterolemia: Yes Liver Disease: No Psychiatric Problems: Yes (ANXIETY DEPRESSION) Seizures: Yes (S/P craniotomy for benign tumor - on Depakote for seizure prophylaxis) Thyroid Disease: No - Surgical History Abdominal Surgery: Yes Appendectomy: No Cardiac Surgery: No Cholecystectomy: Yes Lung Surgery: No Neurologic Surgery: Yes (removal left meningioma, craniotomy) Orthopedic Surgery: Yes (bilat knee replacement) - Immunization History Td Vaccination: Yes TDAP Vaccination: No Immunization Up to Date: Yes - Suicide/Smoking/Psychosocial Hx Smoking Status: No Smoking History: Never smoked Have you smoked in the past 12 months: No Number of Cigarettes Smoked Daily: 0 Cigars Per Day: 0 Information on smoking cessation initiated: No Hx Alcohol Use: No Drug/Substance Use Hx: No Substance Use Type: None Hx Substance Use Treatment: No <Florinda Gallagher - Last Filed: 04/03/18 23:43> - Past Medical History Allergies/Adverse Reactions: Allergies Allergy/AdvReac Type Severity Reaction Status Date / Time aspirin Allergy Severe "NERVOUS" Verified 04/03/18 21:12 morphine Allergy Severe "ANXIETY-DE Verified 04/03/18 21:12 SPERATION" Home Medications: Ambulatory Orders Amlodipine Besylate 5 mg PO DAILY 11/06/17 Divalproex Sodium [Depakote] 500 mg PO BID 11/06/17 Famotidine 20 mg PO BID 11/06/17 Lisinopril [Prinivil] 5 mg PO DAILY #30 tablet 11/07/17 Cardiac Specific PMH - Complaint Specific PMHX Pacemaker: No <Florinda Gallagher - Last Filed: 04/03/18 23:43> Review of Systems - Review of Systems Able to Perform ROS?: Yes <Domonique Wilkerson - Last Filed: 04/03/18 23:09> <Florinda Gallagher - Last Filed: 04/03/18 23:43> - Review of Systems Comments:: 04/03/18 23:09 CONSTITUTIONAL: Absent: fever, no chills, no fatigue EYES: Absent: visual changes ENT: Absent: ear pain, no sore throat CARDIOVASCULAR:(+)chest pain. Absent: no palpitations RESPIRATORY: Absent: cough, no SOB GI: Absent: abdominal pain, no nausea, no vomiting, no constipation, no diarrhea GENITOURINARY: Absent: dysuria, no frequency, no hematuria MUSKULOSKELETAL: Absent: back pain, no arthralgia, no myalgia SKIN: Absent: rash NEURO:(+)headache (Domonique Wilkerson) *Physical Exam <Domonique Wilkerson - Last Filed: 04/03/18 23:09> <Florinda Gallagher - Last Filed: 04/03/18 23:43> - Vital Signs Last Vital Signs Temp Pulse Resp BP Pulse Ox 98.2 F 75 18 138/72 100 04/03/18 21:07 04/03/18 21:07 04/03/18 21:07 04/03/18 21:07 04/03/18 21:07 - Physical Exam Comments: 04/03/18 22:58 CONSTITUTIONAL: Absent: fever, no chills, no fatigue EYES: Absent: visual changes ENT: Absent: ear pain, no sore throat CARDIOVASCULAR: Absent: chest pain, no palpitations RESPIRATORY: Absent: cough, no SOB GI: Absent: abdominal pain, no nausea, no vomiting, no constipation, no diarrhea GENITOURINARY: Absent: dysuria, no frequency, no hematuria MUSKULOSKELETAL: Absent: back pain, no arthralgia, no myalgia SKIN: Absent: rash NEURO: Absent: headache (Domonique Wilkerson) - Procedure Monitoring Vital Signs: Procedure Monitoring Vital Signs Temperature 98.2 F 04/03/18 21:07 Pulse Rate 75 04/03/18 21:07 Respiratory Rate 18 04/03/18 21:07 Blood Pressure 138/72 04/03/18 21:07 O2 Sat by Pulse Oximetry (%) 100 04/03/18 21:07 - Medications Given in the ED: ED Medications Discontinued Medications Generic Name Dose Route Start Last Admin Trade Name Freq PRN Reason Stop Dose Admin Acetaminophen 650 mg 04/03/18 22:34 04/03/18 22:48 Tylenol - PO 04/03/18 22:35 650 mg ONCE ONE Administration *DC/Admit/Observation/Transfer <Domonique Wilkerson - Last Filed: 04/03/18 23:09> <Florinda Gallagher - Last Filed: 04/03/18 23:43> Diagnosis at time of Disposition: Chest pain Qualifiers: Chest pain type: unspecified Qualified Code(s): R07.9 - Chest pain, unspecified - Discharge Dispostion Disposition: HOME Condition at time of disposition: Stable - Patient Instructions Printed Discharge Instructions: DI for Atypical Chest Pain Additional Instructions: please follow up with your primary physician - Attestations Scribe Attestion: 04/03/18 23:10 Documentation prepared by Domonique Wilkerson, acting as medical collections specialist for Florinda Gallagher MD. (Domonique Wilkerson)
[2018-04-03] MEDS ORDERED: ACETAMINOPHEN 325 MG TABLET (FP) PO ONE (22:34)
[2018-04-03] MEDS ORDERED: ACETAMINOPHEN 325 MG TABLET (FP) ONE (22:44)
--- NOTE | 2018-04-05 02:38 | EKG ---
Test Reason : Blood Pressure : / mmHG Vent. Rate : 071 BPM Atrial Rate : 071 BPM P-R Int : 148 ms QRS Dur : 074 ms QT Int : 400 ms P-R-T Axes : 029 006 034 degrees QTc Int : 434 ms NORMAL SINUS RHYTHM NORMAL ECG WHEN COMPARED WITH ECG OF 03-APR-2018 00:53, NO SIGNIFICANT CHANGE WAS FOUND Confirmed by LJ SETHI MD ([id number]) on 04/05/2018 2:37:45 AM Referred By: Confirmed By:LJ SETHI MD
== END 2018-04-04 03:13 | disposition home or self-care (01) ==
LOC: JER 20:51
DX: R07.9 Chest pain, unspecified (principal); D64.9 Anemia, unspecified; I10 Essential (primary) hypertension; E78.00 Pure hypercholesterolemia, unspecified; E11.9 Type 2 diabetes mellitus without complications; F41.8 Other specified anxiety disorders; F32.9 Major depressive disorder, single episode, unspecified; J44.9 Chronic obstructive pulmonary disease, unspecified; K21.9 Gastro-esophageal reflux disease without esophagitis; I69.893 Ataxia following other cerebrovascular disease; I69.810 Attention and concentration deficit following other cerebrovascular disease; Z86.011 Personal history of benign neoplasm of the brain; Z87.442 Personal history of urinary calculi; Z87.19 Personal history of other diseases of the digestive system; Z96.653 Presence of artificial knee joint, bilateral
CPT/HCPCS: 93005; 93010; 99282-25

== ENCOUNTER 2018-04-05 16:53 | Emergency (ER) | payer OTHER ==
[2018-04-05 17:00] VITALS: BP 131/61; PULSE 70; TEMP 98.1; BMI 31.1
[2018-04-05] MEDS ORDERED: ACETAMINOPHEN 325 MG TABLET (FP) PO ONE ×2 (17:54→18:08)
--- NOTE | 2018-04-05 17:55 | PDOC ---
History of Present Illness - General Chief Complaint: Chest Pain Stated Complaint: CHEST PAIN Time Seen by Provider: 04/05/18 17:02 History Source: Patient - History of Present Illness Initial Comments: 04/05/18 17:56 This 72-year-old woman well-known to this emergency Department with history of chronic chest pain, CVA, COPD, GERD, PUD, hyperlipidemia, hypertension, seizures who presents emergency department for evaluation of her chronic chest pain and headache. Patient states this is the usual pain for which she seeks medical care. She states she has not taken any medications prior to arrival. She denies any shortness of breath, nausea, vomiting, dizziness, abdominal pain , dysuria, hematuria, rectal bleeding. No recent travel or sick contacts. Past History - Travel Traveled outside of the country in the last 30 days: No Close contact w/someone who was outside of country & ill: No - Past Medical History Allergies/Adverse Reactions: Allergies Allergy/AdvReac Type Severity Reaction Status Date / Time aspirin Allergy Severe "NERVOUS" Verified 04/05/18 16:56 morphine Allergy Severe "ANXIETY-DE Verified 04/05/18 16:56 SPERATION" Home Medications: Ambulatory Orders Amlodipine Besylate 5 mg PO DAILY 11/06/17 Divalproex Sodium [Depakote] 500 mg PO BID 11/06/17 Famotidine 20 mg PO BID 11/06/17 Lisinopril [Prinivil] 5 mg PO DAILY #30 tablet 11/07/17 Anemia: Yes Asthma: No Cancer: No Cardiac Disorders: Yes (Chest pain) 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, baseline confusion and dizziness) COPD: Yes CHF: No DVT: No Dementia: No Diabetes: Yes GI Disorders: Yes (gerd, gastric ulcer, dysphagia) Disorders: Yes (kidney stone in the past) HTN: Yes Hypercholesterolemia: Yes Liver Disease: No Psychiatric Problems: Yes (ANXIETY DEPRESSION) Seizures: Yes (S/P craniotomy for benign tumor - on Depakote for seizure prophylaxis) Thyroid Disease: No - Surgical History Abdominal Surgery: Yes Appendectomy: No Cardiac Surgery: No Cholecystectomy: Yes Lung Surgery: No Neurologic Surgery: Yes (removal left meningioma, craniotomy) Orthopedic Surgery: Yes (bilat knee replacement) - Immunization History Td Vaccination: Yes TDAP Vaccination: No Immunization Up to Date: Yes - Suicide/Smoking/Psychosocial Hx Smoking Status: No Smoking History: Never smoked Have you smoked in the past 12 months: No Number of Cigarettes Smoked Daily: 0 Cigars Per Day: 0 Hx Alcohol Use: No Drug/Substance Use Hx: No Substance Use Type: None Hx Substance Use Treatment: No Review of Systems - Review of Systems Able to Perform ROS?: Yes Comments:: 04/05/18 17:58 General/Constitutional: Denies fever or chills. Denies weakness, weight change. HEENT: Denies change in vision. Denies ear pain or discharge. Denies sore throat. Cardiovascular: Left sided chest pain. Denies shortness of breath. Respiratory: Denies cough, wheezing, or hemoptysis. Gastrointestinal: Denies nausea, vomiting, diarrhea or constipation. Denies rectal bleeding. Genitourinary: Denies dysuria, frequency, or change in urination. Musculoskeletal: Denies joint or muscle swelling or pain. Denies neck or back pain. Skin and breasts: Denies rash or easy bruising. Neurologic: Fontal headache. Denies vertigo, loss of consciousness, or loss of sensation. Psychiatric: Denies depression or anxiety. Endocrine: Denies increased thirst. Denies abnormal weight change. Hematologic/Lymphatic: Denies anemia, easy bleeding, or history of blood clots. Allergic/Immunologic: Denies hives or skin allergy. Denies latex allergy. Is the patient limited Haitian proficient: No *Physical Exam - Vital Signs Last Vital Signs Temp Pulse Resp BP Pulse Ox 98.1 F 70 18 131/61 100 04/05/18 16:58 04/05/18 16:58 04/05/18 16:58 04/05/18 16:58 04/05/18 16:58 - Physical Exam Comments: 04/05/18 17:58 General Appearance: Well-appearing, appropriately dressed. No apparent distress , no intoxication. HEENT: EOMI, PERRLA, normal ENT inspection, normal voice, TMs normal, pharynx normal. No conjunctival pallor. No photophobia, scleral icterus. Neck: Supple. Trachea midline. No tenderness, rigidity, carotid bruit, stridor , lymphadenopathy, or thyromegaly. Respiratory/Chest: Lungs CTAB. No shortness of breath, respiratory distress, accessory muscle use. No crackles, rales, rhonchi, stridor, wheezing, dullness. Chest TTP from 3rd ICS to 7th ICS on left side. Cardiovascular: RRR. S1, S2. No JVD, murmur, bradycardia, tachycardia. Vascular Pulses: Dorsalis-Pedis (R): 2+, Dorsalis-Pedis (L): 2+ Gastrointestinal/Abdominal: Normal bowel sounds. Abdomen soft, non-distended. No tenderness or rebound tenderness. No organomegaly, pulsatile mass, guarding, hernia, hepatomegaly, splenomegaly. Lymphatic: No adenopathy, tenderness. Musculoskeletal/Extremities: Normal inspection. FROM of all extremities, normal capillary refill. Pelvis Stable. No CVA tenderness. No tenderness to extremities, pedal edema, swelling, erythema or deformity. Integumentary: Appropriate color, dry, warm. No cyanosis, erythema, jaundice or rash Neurologic: automobile contract clerk II-XII intact. Fully oriented, alert. Appropriate mood/affect. Motor strength 5/5. No appreciable EOM palsy, facial droop or sensory deficit. Moderate Sedation - Procedure Monitoring Vital Signs: Procedure Monitoring Vital Signs Temperature 98.1 F 04/05/18 16:58 Pulse Rate 70 04/05/18 16:58 Respiratory Rate 18 04/05/18 16:58 Blood Pressure 131/61 04/05/18 16:58 O2 Sat by Pulse Oximetry (%) 100 04/05/18 16:58 ED Treatment Course - LABORATORY CBC & Chemistry Diagram: 04/05/18 18:20 04/05/18 18:20 Medical Decision Making - Medical Decision Making 04/05/18 19:25 Pt is a 72 y/o F well known to the ED who presents for chest pain -Vital signs normal -EKG: Rate 77bpm, NSR. Normal axis and intervals. No acute ST-T wave changes -labs ordered -Tylenol given for pain -DC home if labs WNL; sign out given to BABAK Montoya *DC/Admit/Observation/Transfer Diagnosis at time of Disposition: Atypical chest pain - Referrals - Patient Instructions - Post Discharge Activity
[2018-04-05] MEDS ORDERED: ACETAMINOPHEN 325 MG TABLET (FP) ONE (18:10)
[2018-04-05 18:46] LABS: BASO % 0.6 % (0-2.0); EOS % 1.5 % (0-4.5); HEMOGLOBIN 11.3 GM/dL (10.7-15.3); LYMPH % 15.8 % (8-40); MCH 24.9 pg (25.7-33.7); MCHC 32.3 g/dl (32.0-36.0); MEAN CELL VOLUME 77.1 fl (80-96); MEAN PLT VOLUME 7.8 fl (7.5-11.1); MONO % 10.8 % (3.8-10.2); NEUT % 71.3 % (42.8-82.8); PLATELET COUNT 336 K/MM3 (134-434); RBC 4.54 M/mm3 (3.60-5.2); RDW 21.7 % (11.6-15.6); WHITE BLOOD COUNT 8.1 K/mm3 (4.0-10.0)
--- NOTE | 2018-04-05 19:13 | PDOC ---
*Physical Exam - Vital Signs Last Vital Signs Temp Pulse Resp BP Pulse Ox 98.1 F 70 18 131/61 100 04/05/18 16:58 04/05/18 16:58 04/05/18 16:58 04/05/18 16:58 04/05/18 16:58 ED Treatment Course - LABORATORY CBC & Chemistry Diagram: 04/05/18 18:20 04/05/18 18:20 - ADDITIONAL ORDERS Additional order review: 04/05/18 18:20 RBC 4.54 MCV 77.1 L MCHC 32.3 RDW 21.7 H MPV 7.8 Neutrophils % 71.3 Lymphocytes % 15.8 D Monocytes % 10.8 H Eosinophils % 1.5 Basophils % 0.6 - Medications Given in the ED: ED Medications Discontinued Medications Generic Name Dose Route Start Last Admin Trade Name Freq PRN Reason Stop Dose Admin Acetaminophen 650 mg 04/05/18 17:54 04/05/18 18:15 Tylenol - PO 04/05/18 17:55 Not Given ONCE ONE Acetaminophen 650 mg 04/05/18 18:08 04/05/18 18:15 Tylenol - PO 04/05/18 18:09 650 mg ONCE ONE Administration Medical Decision Making - Medical Decision Making 04/05/18 19:12 Pt seen by the Advanced Practice Provider under my direct supervision Ancillary studies reviewed I agree with plan as outlined by the Advanced Practice Provider BABAK Gann
--- NOTE | 2018-04-05 19:59 | PDOC ---
*Physical Exam - Vital Signs Last Vital Signs Temp Pulse Resp BP Pulse Ox 98.1 F 70 18 131/61 100 04/05/18 16:58 04/05/18 16:58 04/05/18 16:58 04/05/18 16:58 04/05/18 16:58 - Physical Exam General Appearance: Yes: Nourished, Appropriately Dressed. No: Apparent Distress HEENT: positive: Normal ENT Inspection Neck: positive: Supple Respiratory/Chest: positive: Lungs Clear, Normal Breath Sounds. negative: Respiratory Distress, Accessory Muscle Use Cardiovascular: positive: Regular Rhythm, Regular Rate, S1, S2 Gastrointestinal/Abdominal: positive: Flat. negative: Tender Extremity: positive: Normal Inspection Neurologic: positive: Fully Oriented, Alert, Normal Mood/Affect ED Treatment Course - LABORATORY CBC & Chemistry Diagram: 04/05/18 18:20 04/05/18 18:20 - ADDITIONAL ORDERS Additional order review: Laboratory Results 04/05/18 18:20 Creatine Kinase 60 Troponin I < 0.02 04/05/18 18:20 RBC 4.54 MCV 77.1 L MCHC 32.3 RDW 21.7 H MPV 7.8 Neutrophils % 71.3 Lymphocytes % 15.8 D Monocytes % 10.8 H Eosinophils % 1.5 Basophils % 0.6 - Medications Given in the ED: ED Medications Discontinued Medications Generic Name Dose Route Start Last Admin Trade Name Chance PRN Reason Stop Dose Admin Acetaminophen 650 mg 04/05/18 17:54 04/05/18 18:15 Tylenol - PO 04/05/18 17:55 Not Given ONCE ONE Acetaminophen 650 mg 04/05/18 18:08 04/05/18 18:15 Tylenol - PO 04/05/18 18:09 650 mg ONCE ONE Administration Medical Decision Making - Medical Decision Making 04/05/18 19:56 I resumed care of this 72-year-old presented with complaint of dizziness and chest pain yesterday. Patient has history of multiple daily visits to the ED with same symptoms and with no findings. EKG shows normal sinus rhythm. Cardiac profile normal. Chemistry lab with no acute pathology. Patient in no acute distress.Patient is stable for discharge with strict follow-up *DC/Admit/Observation/Transfer Diagnosis at time of Disposition: Atypical chest pain - Discharge Dispostion Disposition: HOME Condition at time of disposition: Stable Decision to Admit order: No - Referrals - Patient Instructions Printed Discharge Instructions: DI for Atypical Chest Pain Additional Instructions: Come back to the emergency room if worsening symptoms. lab and EKG was normal. Follow-up with primary care - Post Discharge Activity
[2018-04-05 20:13] LABS: ANISOCYTOSIS 2+; MACROCYTOSIS 2+; OVALOCYTE 1+; PLATELET ESTIMATE ADEQUATE
[2018-04-06] LABS: ALBUMIN 3.7 g/dl (3.4-5.0); ALK PHOS 176 U/L (45-117); ANION GAP 7 MMOL/L (8-16); BILIRUBIN,TOTAL 0.3 mg/dL (0.2-1); BLOOD UREA NITROGEN 23 mg/dL (7-18); CHLORIDE 101 mmol/L (98-107); CO2 26 mmol/L (21-32); CREATININE 0.8 mg/dL (0.55-1.3); GLUCOSE,RANDOM 106 mg/dL (74-106); POTASSIUM 4.5 mmol/L (3.5-5.1); SGOT/AST 28 U/L (15-37); SGPT/ALT 32 U/L (13-61); SODIUM 134 mmol/L (136-145); TOT PROT 7.5 g/dl (6.4-8.2)
--- NOTE | 2018-04-06 11:35 | EKG ---
Test Reason : Blood Pressure : / mmHG Vent. Rate : 096 BPM Atrial Rate : 096 BPM P-R Int : 146 ms QRS Dur : 074 ms QT Int : 352 ms P-R-T Axes : 046 -01 041 degrees QTc Int : 444 ms POOR DATA QUALITY, INTERPRETATION MAY BE ADVERSELY AFFECTED NORMAL SINUS RHYTHM NORMAL ECG WHEN COMPARED WITH ECG OF 03-APR-2018 21:18, NO SIGNIFICANT CHANGE WAS FOUND Confirmed by LARA SARMIENTO MD ([id number]) on 04/06/2018 11:34:48 AM Referred By: Confirmed By:LARA SARMIENTO MD
== END 2018-04-05 21:19 | disposition home or self-care (01) ==
LOC: JER 16:53
DX: R07.9 Chest pain, unspecified (principal); I10 Essential (primary) hypertension; E78.00 Pure hypercholesterolemia, unspecified; J44.9 Chronic obstructive pulmonary disease, unspecified; D64.9 Anemia, unspecified; F41.8 Other specified anxiety disorders; F32.9 Major depressive disorder, single episode, unspecified; E11.9 Type 2 diabetes mellitus without complications; K21.9 Gastro-esophageal reflux disease without esophagitis; I69.810 Attention and concentration deficit following other cerebrovascular disease; I69.893 Ataxia following other cerebrovascular disease; Z87.442 Personal history of urinary calculi; Z86.011 Personal history of benign neoplasm of the brain; Z96.653 Presence of artificial knee joint, bilateral; Z87.19 Personal history of other diseases of the digestive system
CPT/HCPCS: 36415; 80053; 82550; 84484; 85025; 93005; 93010; 99282-25

== ENCOUNTER 2018-04-06 07:31 | Emergency (ER) | payer OTHER ==
[2018-04-06 08:39] VITALS: BMI 31.1
--- NOTE | 2018-04-06 08:47 | PDOC ---
History of Present Illness - General Chief Complaint: Chest Pain Stated Complaint: CHEST PAIN Time Seen by Provider: 04/06/18 08:45 History Source: Patient Exam Limitations: No Limitations Past History - Past Medical History Allergies/Adverse Reactions: Allergies Allergy/AdvReac Type Severity Reaction Status Date / Time aspirin Allergy Severe "NERVOUS" Verified 04/06/18 08:00 morphine Allergy Severe "ANXIETY-DE Verified 04/06/18 08:00 SPERATION" Home Medications: Ambulatory Orders Amlodipine Besylate 5 mg PO DAILY 11/06/17 Divalproex Sodium [Depakote] 500 mg PO BID 11/06/17 Famotidine 20 mg PO BID 11/06/17 Lisinopril [Prinivil] 5 mg PO DAILY #30 tablet 11/07/17 Anemia: Yes Asthma: No Cancer: No Cardiac Disorders: Yes (Chest pain) 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, baseline confusion and dizziness) COPD: Yes CHF: No DVT: No Dementia: No Diabetes: Yes GI Disorders: Yes (gerd, gastric ulcer, dysphagia) Disorders: Yes (kidney stone in the past) HTN: Yes Hypercholesterolemia: Yes Liver Disease: No Psychiatric Problems: Yes (ANXIETY DEPRESSION) Seizures: Yes (S/P craniotomy for benign tumor - on Depakote for seizure prophylaxis) Thyroid Disease: No - Surgical History Abdominal Surgery: Yes Appendectomy: No Cardiac Surgery: No Cholecystectomy: Yes Lung Surgery: No Neurologic Surgery: Yes (removal left meningioma, craniotomy) Orthopedic Surgery: Yes (bilat knee replacement) - Immunization History Td Vaccination: Yes TDAP Vaccination: No Immunization Up to Date: Yes - Suicide/Smoking/Psychosocial Hx Smoking Status: No Smoking History: Never smoked Have you smoked in the past 12 months: No Number of Cigarettes Smoked Daily: 0 Cigars Per Day: 0 Information on smoking cessation initiated: No Hx Alcohol Use: No Drug/Substance Use Hx: No Substance Use Type: None Hx Substance Use Treatment: No *Physical Exam - Vital Signs Last Vital Signs Temp Pulse Resp BP Pulse Ox 98.1 F 93 H 16 139/72 99 04/06/18 07:31 04/06/18 07:31 04/06/18 07:31 04/06/18 07:31 04/06/18 08:29 Moderate Sedation - Procedure Monitoring Vital Signs: Procedure Monitoring Vital Signs Temperature 98.1 F 04/06/18 07:31 Pulse Rate 93 H 04/06/18 07:31 Respiratory Rate 16 04/06/18 07:31 Blood Pressure 139/72 04/06/18 07:31 O2 Sat by Pulse Oximetry (%) 99 04/06/18 08:29 Medical Decision Making - Medical Decision Making 04/06/18 08:46 EKG - Twelve-lead EKG was performed and reviewed by me. There is normal sinus rhythm with a normal rate. The axis is normal. The intervals are normal. There are no ST or T wave abnormalities. Impression: Normal twelve-lead EKG
[2018-04-06] MEDS ORDERED: LIDOCAINE 5% TOPICAL PATCH TP ONE (09:07)
[2018-04-06] MEDS ORDERED: LIDOCAINE 5% TOPICAL PATCH ONE (09:15)
--- NOTE | 2018-04-06 10:13 | PDOC ---
History of Present Illness - General Chief Complaint: Chest Pain Stated Complaint: CHEST PAIN Time Seen by Provider: 04/06/18 08:45 History Source: Patient Exam Limitations: No Limitations - History of Present Illness Initial Comments: 04/06/18 10:10 This 72-year-old woman well-known to this emergency Department with history of chronic chest pain, CVA, COPD, GERD, PUD, hyperlipidemia, hypertension, seizures who presents emergency department for evaluation of her chronic chest pain and headache. Patient states this is the usual pain for which she seeks medical care. She states she has not taken any medications prior to arrival. She denies any shortness of breath, nausea, vomiting, dizziness, abdominal pain , dysuria, hematuria, rectal bleeding. No recent travel or sick contacts. Past History - Past Medical History Allergies/Adverse Reactions: Allergies Allergy/AdvReac Type Severity Reaction Status Date / Time aspirin Allergy Severe "NERVOUS" Verified 04/06/18 08:00 morphine Allergy Severe "ANXIETY-DE Verified 04/06/18 08:00 SPERATION" Home Medications: Ambulatory Orders Amlodipine Besylate 5 mg PO DAILY 11/06/17 Divalproex Sodium [Depakote] 500 mg PO BID 11/06/17 Famotidine 20 mg PO BID 11/06/17 Lisinopril [Prinivil] 5 mg PO DAILY #30 tablet 11/07/17 Anemia: Yes Asthma: No Cancer: No Cardiac Disorders: Yes (Chest pain) 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, baseline confusion and dizziness) COPD: Yes CHF: No DVT: No Dementia: No Diabetes: Yes GI Disorders: Yes (gerd, gastric ulcer, dysphagia) Disorders: Yes (kidney stone in the past) HTN: Yes Hypercholesterolemia: Yes Liver Disease: No Psychiatric Problems: Yes (ANXIETY DEPRESSION) Seizures: Yes (S/P craniotomy for benign tumor - on Depakote for seizure prophylaxis) Thyroid Disease: No - Surgical History Abdominal Surgery: Yes Appendectomy: No Cardiac Surgery: No Cholecystectomy: Yes Lung Surgery: No Neurologic Surgery: Yes (removal left meningioma, craniotomy) Orthopedic Surgery: Yes (bilat knee replacement) - Immunization History Td Vaccination: Yes TDAP Vaccination: No Immunization Up to Date: Yes - Suicide/Smoking/Psychosocial Hx Smoking Status: No Smoking History: Never smoked Have you smoked in the past 12 months: No Number of Cigarettes Smoked Daily: 0 Cigars Per Day: 0 Information on smoking cessation initiated: No Hx Alcohol Use: No Drug/Substance Use Hx: No Substance Use Type: None Hx Substance Use Treatment: No Review of Systems - Review of Systems Able to Perform ROS?: Yes Comments:: 04/06/18 10:11 REVIEW OF SYSTEMS General/Constitutional: Denies fever or chills. Denies weakness, weight change. HEENT: Denies change in vision. Denies ear pain or discharge. Denies sore throat. Cardiovascular: Left sided chest pain. Denies shortness of breath. Respiratory: Denies cough, wheezing, or hemoptysis. Gastrointestinal: Denies nausea, vomiting, diarrhea or constipation. Denies rectal bleeding. Genitourinary: Denies dysuria, frequency, or change in urination. Musculoskeletal: Denies joint or muscle swelling or pain. Denies neck or back pain. Skin and breasts: Denies rash or easy bruising. Neurologic: Fontal headache. Denies vertigo, loss of consciousness, or loss of sensation. Psychiatric: Denies depression or anxiety. Endocrine: Denies increased thirst. Denies abnormal weight change. Hematologic/Lymphatic: Denies anemia, easy bleeding, or history of blood clots. Allergic/Immunologic: Denies hives or skin allergy. Denies latex allergy. *Physical Exam - Vital Signs Last Vital Signs Temp Pulse Resp BP Pulse Ox 98.1 F 93 H 16 139/72 99 04/06/18 07:31 04/06/18 07:31 04/06/18 07:31 04/06/18 07:31 04/06/18 08:29 - Physical Exam Comments: 04/06/18 10:11 PHYSICAL EXAM General Appearance: Well-appearing, appropriately dressed. No apparent distress , no intoxication. HEENT: EOMI, PERRLA, normal ENT inspection, normal voice, TMs normal, pharynx normal. No conjunctival pallor. No photophobia, scleral icterus. Neck: Supple. Trachea midline. No tenderness, rigidity, carotid bruit, stridor , lymphadenopathy, or thyromegaly. Respiratory/Chest: Lungs CTAB. No shortness of breath, respiratory distress, accessory muscle use. No crackles, rales, rhonchi, stridor, wheezing, dullness. Chest TTP from 3rd ICS to 7th ICS on left side. Cardiovascular: RRR. S1, S2. No JVD, murmur, bradycardia, tachycardia. Vascular Pulses: Dorsalis-Pedis (R): 2+, Dorsalis-Pedis (L): 2+ Gastrointestinal/Abdominal: Normal bowel sounds. Abdomen soft, non-distended. No tenderness or rebound tenderness. No organomegaly, pulsatile mass, guarding, hernia, hepatomegaly, splenomegaly. Lymphatic: No adenopathy, tenderness. Musculoskeletal/Extremities: Normal inspection. FROM of all extremities, normal capillary refill. Pelvis Stable. No CVA tenderness. No tenderness to extremities, pedal edema, swelling, erythema or deformity. Integumentary: Appropriate color, dry, warm. No cyanosis, erythema, jaundice or rash Neurologic: child welfare assistant II-XII intact. Fully oriented, alert. Appropriate mood/affect. Motor strength 5/5. No appreciable EOM palsy, facial droop or sensory deficit. Moderate Sedation - Procedure Monitoring Vital Signs: Procedure Monitoring Vital Signs Temperature 98.1 F 04/06/18 07:31 Pulse Rate 93 H 04/06/18 07:31 Respiratory Rate 16 04/06/18 07:31 Blood Pressure 139/72 04/06/18 07:31 O2 Sat by Pulse Oximetry (%) 99 04/06/18 08:29 ED Treatment Course - RADIOLOGY Radiology Studies Ordered: Category Date Time Status BREAST US LEFT LIMITED [US] Stat Ultrasound 04/06/18 09:07 Taken - Medications Given in the ED: ED Medications Discontinued Medications Generic Name Dose Route Start Last Admin Trade Name Freq PRN Reason Stop Dose Admin Lidocaine 1 patch 04/06/18 09:07 04/06/18 09:11 Lidoderm Patch - TP 04/06/18 09:08 1 patch ONCE ONE Administration Medical Decision Making - Medical Decision Making 04/06/18 10:11 Pt is a 72 y/o F well known to the ED who presents for evaluation of her chest pain. On exam patient points to her breast as the source of pain Pt took two tylenol prior to arrival Breast US ordered Lidocaine patch applied EKG: Rate 87 BPM, NSR. Normal intervals and axis. No acute ST-T wave changes Lab work yesterday was normal including troponin. 04/06/18 10:57 Breast US is normal Pt states she has some relief with the lidocaine patch Tylenol given for headache DC home I discussed the physical exam findings, ancillary test results and final diagnoses with the patient. I answered all of the patient's questions. The patient was satisfied with the care received and felt comfortable with the discharge plan and treatment plan. The Patient agrees to follow up with the primary care physician/specialist within 24-72 hours. Return precautions were given. *DC/Admit/Observation/Transfer Diagnosis at time of Disposition: Atypical chest pain - Discharge Dispostion Disposition: HOME Condition at time of disposition: Stable Decision to Admit order: No - Referrals Referrals: Wendy Hyde MD [Primary Care Provider] - - Patient Instructions Printed Discharge Instructions: DI for Atypical Chest Pain - Post Discharge Activity
[2018-04-06 10:26] VITALS: BP 125/75; PULSE 87; TEMP 98.3
--- NOTE | 2018-04-06 10:46 | PDOC ---
*Physical Exam - Vital Signs Last Vital Signs Temp Pulse Resp BP Pulse Ox 98.3 F 87 20 125/75 98 04/06/18 10:25 04/06/18 10:25 04/06/18 10:25 04/06/18 10:25 04/06/18 10:25 ED Treatment Course - Medications Given in the ED: ED Medications Discontinued Medications Generic Name Dose Route Start Last Admin Trade Name Chance PRN Reason Stop Dose Admin Lidocaine 1 patch 04/06/18 09:07 04/06/18 09:11 Lidoderm Patch - TP 04/06/18 09:08 1 patch ONCE ONE Administration Medical Decision Making - Medical Decision Making 04/06/18 10:44 Ms Sumner returns to the ER today with the same complaints It seems that her pain is located in the left breast, rather than in the chest Pt states it is not her heart that hurts She also has a headache She took two tylenol at home with no improvement Pt was seen in the ER yesterday where labs were nml Will send for breast US Will place lidoderm patch Will re assess 04/06/18 11:07 US negative Will re assess *DC/Admit/Observation/Transfer Diagnosis at time of Disposition: Atypical chest pain - Discharge Dispostion Disposition: HOME Condition at time of disposition: Stable - Referrals Referrals: Wendy Hyde MD [Primary Care Provider] - - Patient Instructions Printed Discharge Instructions: DI for Atypical Chest Pain - Post Discharge Activity
[2018-04-06] MEDS ORDERED: ACETAMINOPHEN 325 MG TABLET (FP) PO ONE (10:57)
[2018-04-06] MEDS ORDERED: ACETAMINOPHEN 325 MG TABLET (FP) ONE (11:18)
[2018-04-06] MEDS ORDERED: MECLIZINE HCL 25 MG TABLET (FP) PO ONE (11:31)
[2018-04-06] MEDS ORDERED: MECLIZINE HCL 25 MG TABLET (FP) ONE (11:45)
[2018-04-06] MEDS ORDERED: LIDOCAINE PATCH REMOVAL MC SCH (22:00)
--- NOTE | 2018-04-08 22:12 | EKG ---
Test Reason : Blood Pressure : / mmHG Vent. Rate : 087 BPM Atrial Rate : 087 BPM P-R Int : 150 ms QRS Dur : 070 ms QT Int : 380 ms P-R-T Axes : 033 -02 026 degrees QTc Int : 457 ms NORMAL SINUS RHYTHM NORMAL ECG WHEN COMPARED WITH ECG OF 05-APR-2018 17:02, NO SIGNIFICANT CHANGE WAS FOUND Confirmed by J LUIS POWELL MD ([id number]) on 04/08/2018 10:12:27 PM Referred By: Confirmed By:J LUIS POWELL MD
== END 2018-04-06 12:19 | disposition home or self-care (01) ==
LOC: JER 07:31
DX: R07.9 Chest pain, unspecified (principal); I10 Essential (primary) hypertension; E78.5 Hyperlipidemia, unspecified; D64.9 Anemia, unspecified; J44.9 Chronic obstructive pulmonary disease, unspecified; E11.9 Type 2 diabetes mellitus without complications; K21.9 Gastro-esophageal reflux disease without esophagitis; Z86.69 Personal history of other diseases of the nervous system and sense organs; I69.810 Attention and concentration deficit following other cerebrovascular disease; I69.893 Ataxia following other cerebrovascular disease; F41.8 Other specified anxiety disorders; F32.9 Major depressive disorder, single episode, unspecified; Z86.011 Personal history of benign neoplasm of the brain; Z87.442 Personal history of urinary calculi; Z96.653 Presence of artificial knee joint, bilateral; Z87.19 Personal history of other diseases of the digestive system
CPT/HCPCS: 76642-TC-LT; 93005; 93010; 99283-25

== ENCOUNTER 2018-04-06 18:24 | Emergency (ER) | payer OTHER ==
[2018-04-06 18:31] VITALS: TEMP 98.3
--- NOTE | 2018-04-06 19:05 | PDOC ---
Rapid Medical Evaluation Chief Complaint: Headache Time Seen by Provider: 04/06/18 19:02 Medical Evaluation: Allergies Allergy/AdvReac Type Severity Reaction Status Date / Time aspirin Allergy Severe "NERVOUS" Verified 04/06/18 08:00 morphine Allergy Severe "ANXIETY-DE Verified 04/06/18 08:00 SPERATION" Vital Signs Temp Pulse Resp BP Pulse Ox 98.3 F 88 20 167/84 99 04/06/18 18:26 04/06/18 18:26 04/06/18 18:26 04/06/18 18:26 04/06/18 18:26 04/06/18 19:03 I have performed a brief in-person evaluation of this patient. The patient presents with a chief complaint of: CP. Numerous ED visits for same. Discharged from ED several hrs ago. Told EMS she does not want to be home alone. H/o chronic CP, CVA, COPD, GERD, HTN, HLD, seizures Pertinent physical exam findings:stable and in NAD I have ordered the following:nothing The patient will proceed to the ED for further evaluation. Discharge Disposition - Diagnosis Chronic chest pain - Discharge Dispostion Last Admission D/C Date: 01/04/18 - Referrals - Patient Instructions - Post Discharge Activity
[2018-04-06 19:06] VITALS: BP 106/67; PULSE 96; BMI 28.2
--- NOTE | 2018-04-06 20:47 | PDOC ---
History of Present Illness - General Chief Complaint: Headache Stated Complaint: CHEST PAIN/SOB Time Seen by Provider: 04/06/18 19:02 History Source: Patient, Old Records Exam Limitations: No Limitations - History of Present Illness Initial Comments: 04/06/18 20:47 HISTORY OF PRESENT ILLNESS: This 72-year-old woman well-known to this emergency Department with history of chronic chest pain, CVA, COPD, GERD, PUD, hyperlipidemia, hypertension, seizures who presents emergency department for evaluation of her chronic chest pain and headache. Patient states this is the usual pain for which she seeks medical care. She states she has not taken any medications prior to arrival. She denies any shortness of breath, nausea, vomiting, dizziness, abdominal pain, dysuria, hematuria, rectal bleeding. Patient was seen earlier today. Offers no new complaints from previous visit. Initial workup was negative. No recent travel or sick contacts. PAST MEDICAL HISTORY: see HPI SURGICAL HISTORY: See HPI ALLERGIES: ASA, MSO4 REVIEW OF SYSTEMS General/Constitutional: Denies fever or chills. Denies weakness, weight change. HEENT: Denies change in vision. Denies ear pain or discharge. Denies sore throat. Cardiovascular: Left sided chest pain. Denies shortness of breath. Respiratory: Denies cough, wheezing, or hemoptysis. Gastrointestinal: Denies nausea, vomiting, diarrhea or constipation. Denies rectal bleeding. Genitourinary: Denies dysuria, frequency, or change in urination. Musculoskeletal: Denies joint or muscle swelling or pain. Denies neck or back pain. Skin and breasts: Denies rash or easy bruising. Neurologic: Fontal headache. Denies vertigo, loss of consciousness, or loss of sensation. Psychiatric: Denies depression or anxiety. Endocrine: Denies increased thirst. Denies abnormal weight change. Hematologic/Lymphatic: Denies anemia, easy bleeding, or history of blood clots. Allergic/Immunologic: Denies hives or skin allergy. Denies latex allergy. PHYSICAL EXAM General Appearance: Well-appearing, appropriately dressed. No apparent distress , no intoxication. HEENT: EOMI, PERRLA, normal ENT inspection, normal voice, TMs normal, pharynx normal. No conjunctival pallor. No photophobia, scleral icterus. Neck: Supple. Trachea midline. No tenderness, rigidity, carotid bruit, stridor , lymphadenopathy, or thyromegaly. Respiratory/Chest: Lungs CTAB. No shortness of breath, respiratory distress, accessory muscle use. No crackles, rales, rhonchi, stridor, wheezing, dullness. Chest TTP from 3rd ICS to 7th ICS on left side. Cardiovascular: RRR. S1, S2. No JVD, murmur, bradycardia, tachycardia. Vascular Pulses: Dorsalis-Pedis (R): 2+, Dorsalis-Pedis (L): 2+ Gastrointestinal/Abdominal: Normal bowel sounds. Abdomen soft, non-distended. No tenderness or rebound tenderness. No organomegaly, pulsatile mass, guarding, hernia, hepatomegaly, splenomegaly. Lymphatic: No adenopathy, tenderness. Musculoskeletal/Extremities: Normal inspection. FROM of all extremities, normal capillary refill. Pelvis Stable. No CVA tenderness. No tenderness to extremities, pedal edema, swelling, erythema or deformity. Integumentary: Appropriate color, dry, warm. No cyanosis, erythema, jaundice or rash Neurologic: hospital educator II-XII intact. Fully oriented, alert. Appropriate mood/affect. Motor strength 5/5. No appreciable EOM palsy, facial droop or sensory deficit. Past History - Past Medical History Allergies/Adverse Reactions: Allergies Allergy/AdvReac Type Severity Reaction Status Date / Time aspirin Allergy Severe "NERVOUS" Verified 04/06/18 08:00 morphine Allergy Severe "ANXIETY-DE Verified 04/06/18 08:00 SPERATION" Home Medications: Ambulatory Orders Amlodipine Besylate 5 mg PO DAILY 11/06/17 Divalproex Sodium [Depakote] 500 mg PO BID 11/06/17 Famotidine 20 mg PO BID 11/06/17 Lisinopril [Prinivil] 5 mg PO DAILY #30 tablet 11/07/17 Anemia: Yes Asthma: No Cancer: No Cardiac Disorders: Yes (Chest pain) 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, baseline confusion and dizziness) COPD: Yes CHF: No DVT: No Dementia: No Diabetes: Yes GI Disorders: Yes (gerd, gastric ulcer, dysphagia) Disorders: Yes (kidney stone in the past) HTN: Yes Hypercholesterolemia: Yes Liver Disease: No Psychiatric Problems: Yes (ANXIETY DEPRESSION) Seizures: Yes (S/P craniotomy for benign tumor - on Depakote for seizure prophylaxis) Thyroid Disease: No - Surgical History Abdominal Surgery: Yes Appendectomy: No Cardiac Surgery: No Cholecystectomy: Yes Lung Surgery: No Neurologic Surgery: Yes (removal left meningioma, craniotomy) Orthopedic Surgery: Yes (bilat knee replacement) - Immunization History Td Vaccination: Yes TDAP Vaccination: No Immunization Up to Date: Yes - Suicide/Smoking/Psychosocial Hx Smoking Status: No Smoking History: Unknown if ever smoked Have you smoked in the past 12 months: No Number of Cigarettes Smoked Daily: 0 Cigars Per Day: 0 Information on smoking cessation initiated: No Hx Alcohol Use: No Drug/Substance Use Hx: No Substance Use Type: None Hx Substance Use Treatment: No *Physical Exam - Vital Signs Last Vital Signs Temp Pulse Resp BP Pulse Ox 98.3 F 96 H 20 106/67 95 04/06/18 18:26 04/06/18 18:26 04/06/18 18:26 04/06/18 18:26 04/06/18 18:26 Moderate Sedation - Procedure Monitoring Vital Signs: Procedure Monitoring Vital Signs Temperature 98.3 F 04/06/18 18:26 Pulse Rate 96 H 04/06/18 18:26 Respiratory Rate 20 04/06/18 18:26 Blood Pressure 106/67 04/06/18 18:26 O2 Sat by Pulse Oximetry (%) 95 04/06/18 18:26 Medical Decision Making - Medical Decision Making 04/06/18 20:48 A/P: 72-year-old woman with chronic chest pain Patient was seen and evaluated earlier today and found to have a negative workup. Patient is unchanged at this time is requesting more Tylenol. I will discharge the patient home to follow-up to primary doctor as needed. *DC/Admit/Observation/Transfer Diagnosis at time of Disposition: Chronic chest pain - Discharge Dispostion Disposition: HOME Condition at time of disposition: Stable Decision to Admit order: No - Referrals - Patient Instructions Additional Instructions: Return to emergency department for any worsening symptoms Follow-up with her regular doctor. - Post Discharge Activity
== END 2018-04-06 20:52 | disposition home or self-care (01) ==
LOC: JERFT 18:24 → JER 18:24 → JERFT 20:52
DX: R07.9 Chest pain, unspecified (principal); G89.29 Other chronic pain; D64.9 Anemia, unspecified; J44.9 Chronic obstructive pulmonary disease, unspecified; I10 Essential (primary) hypertension; E11.9 Type 2 diabetes mellitus without complications; F41.8 Other specified anxiety disorders; F32.9 Major depressive disorder, single episode, unspecified; E78.00 Pure hypercholesterolemia, unspecified; I69.810 Attention and concentration deficit following other cerebrovascular disease; I69.893 Ataxia following other cerebrovascular disease; Z87.19 Personal history of other diseases of the digestive system; Z86.011 Personal history of benign neoplasm of the brain; Z87.442 Personal history of urinary calculi; Z96.653 Presence of artificial knee joint, bilateral; Z86.69 Personal history of other diseases of the nervous system and sense organs; Z90.49 Acquired absence of other specified parts of digestive tract
CPT/HCPCS: 99281-25

== ENCOUNTER 2018-04-11 15:33 | Observation (INO) | payer OTHER ==
--- NOTE | 2018-04-11 15:42 | PDOC ---
Rapid Medical Evaluation Time Seen by Provider: 04/11/18 15:40 Medical Evaluation: Allergies Allergy/AdvReac Type Severity Reaction Status Date / Time aspirin Allergy Severe "NERVOUS" Verified 04/06/18 08:00 morphine Allergy Severe "ANXIETY-DE Verified 04/06/18 08:00 SPERATION" 04/11/18 15:41 I have performed a brief in-person evaluation of this patient. The patient presents with a chief complaint of: Brought in by EMS for CP and SOB today Pertinent physical exam findings:stable w/ clear chest/lungs I have ordered the following:ekg The patient will proceed to the ED for further evaluation. Discharge Disposition - Diagnosis Chest pain Qualifiers: Chest pain type: chest pain on breathing Qualified Code(s): R07.1 - Chest pain on breathing; R07.81 - Pleurodynia - Referrals - Patient Instructions - Post Discharge Activity
--- NOTE | 2018-04-11 16:19 | PDOC ---
Attending Attestation - HPI HPI: 04/11/18 17:32 The patient is a 72-year-old female well-known to this ED, with a past medical history of chronic chest pain, CVA, COPD, GERD, HLD, and HTN, who presents to the ED via EMS for evaluation of left breast pain, shortness of breath, and headache. Symptoms are similar to the what she has experienced in the past. Chest pain is reproducible with palpation. New onset of ataxia noted while patient was ambulating in the ER. The patient denies any fevers, chills, nausea, vomiting, diarrhea, or abdominal pain. Denies any palpitations. Denies any dizziness, lightheadedness, or changes in strength or sensation. 04/11/18 17:34 - Physicial Exam PE: 04/11/18 17:33 GENERAL: Awake, alert, and fully oriented, in no acute distress HEAD: No signs of trauma EYES: PERRLA, EOMI, sclera anicteric, conjunctiva clear ENT: Auricles normal inspection, hearing grossly normal, nares patent, oropharynx clear without exudates. Moist mucosa NECK: Normal ROM, supple, no lymphadenopathy, JVD, or masses LUNGS: Breath sounds equal, clear to auscultation bilaterally. No wheezes, and no crackles HEART: Regular rate and rhythm, normal S1 and S2, no murmurs, rubs or gallops ABDOMEN: Soft, nontender, normoactive bowel sounds. No guarding, no rebound. No masses EXTREMITIES: Normal range of motion, no edema. No clubbing or cyanosis. No cords, erythema, or tenderness NEUROLOGICAL: (+)Ataxic gait. Cranial nerves II through XII grossly intact. Normal speech. SKIN: Warm, Dry, normal turgor, no rashes or lesions noted <Luly May - Last Filed: 04/11/18 17:34> - Resident Resident Name: Aly Montez - ED Attending Attestation I have performed the following: I have examined & evaluated the patient, The case was reviewed & discussed with the resident, I agree w/resident's findings & plan, Exceptions are as noted - Medical Decision Making 04/11/18 16:19 I, Dr. Magnolia Higgins, DO, attest that this document has been prepared under my direction and personally reviewed by me in its entirety. I further attest, that it accurately reflects all work, treatment, procedures and medical decision -making performed by me. 04/11/18 17:25 a/p: 72yo female with L anterior breast pain and javed -javed worse today than normal -pt with ataxic gait with her walker which is new- unknown onset time -pt also with atypical cp/breast pain -pt with ultrasound on 04/06 that was normal for the L breast -will send labs, head ct, ekg -will monitor and reassess 04/11/18 18:[address] does not show acute findings labs reviewed hemolyzed sample - will repeat chem 04/11/18 18:19 trop negative 04/11/18 19:31 resident discussed the case with tabitha who accepts the patient to obs <Magnolia Higgins - Last Filed: 04/11/18 19:31> Heart Score/ECG Review - ECG Intrepretation Comment:: 04/11/18 18:28 sinus at 83, nl axis, nl interval, no acute st/t wave findings <Magnolia Higgins - Last Filed: 04/11/18 19:31> Attestations - Attestations 04/11/18 17:34 Documentation prepared by Luly May, acting as medical facilities section director for Magnolia Higgins DO. <Luly May - Last Filed: 04/11/18 17:34>
--- NOTE | 2018-04-11 17:00 | PDOC ---
History of Present Illness - General Chief Complaint: Shortness of Breath Stated Complaint: SOB Time Seen by Provider: 04/11/18 15:40 History Source: Patient - History of Present Illness Initial Comments: 04/11/18 16:59 72 yr old woman with HTN, chronic chest pain with multiple visits to the ED with chest pain BIBEMS today with headache and left sided chest pain. Headache is all over the head, continuous. Chest pain is similar to previous chest pain, located in the left side nonradiating without alleviating or exacerbating factors. She also c/o worsening dizziness, worse when she stands. pt says her ESL INSTRUCTOR has not been coming for the past 2 days. as per EMS pt took 4 extra strength tylenol at home. denies fevers, cough, dysuria, chillls, falls, syncope, tremors, palpitations, vomiting. Past History - Travel Traveled outside of the country in the last 30 days: No Close contact w/someone who was outside of country & ill: No - Past Medical History Allergies/Adverse Reactions: Allergies Allergy/AdvReac Type Severity Reaction Status Date / Time aspirin Allergy Severe "NERVOUS" Verified 04/11/18 15:42 morphine Allergy Severe "ANXIETY-DE Verified 04/11/18 15:42 SPERATION" Home Medications: Ambulatory Orders Amlodipine Besylate 5 mg PO DAILY 11/06/17 Divalproex Sodium [Depakote] 500 mg PO BID 11/06/17 Famotidine 20 mg PO BID 11/06/17 Lisinopril [Prinivil] 5 mg PO DAILY #30 tablet 11/07/17 Anemia: Yes Asthma: No Cancer: No Cardiac Disorders: Yes (Chest pain) 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, baseline confusion and dizziness) COPD: Yes CHF: No DVT: No Dementia: No Diabetes: Yes GI Disorders: Yes (gerd, gastric ulcer, dysphagia) Disorders: Yes (kidney stone in the past) HTN: Yes Hypercholesterolemia: Yes Liver Disease: No Psychiatric Problems: Yes (ANXIETY DEPRESSION) Seizures: Yes (S/P craniotomy for benign tumor - on Depakote for seizure prophylaxis) Thyroid Disease: No - Surgical History Abdominal Surgery: Yes Appendectomy: No Cardiac Surgery: No Cholecystectomy: Yes Lung Surgery: No Neurologic Surgery: Yes (removal left meningioma, craniotomy) Orthopedic Surgery: Yes (bilat knee replacement) - Immunization History Td Vaccination: Yes TDAP Vaccination: No Immunization Up to Date: Yes - Suicide/Smoking/Psychosocial Hx Smoking Status: No Smoking History: Never smoked Have you smoked in the past 12 months: No Number of Cigarettes Smoked Daily: 0 Cigars Per Day: 0 Hx Alcohol Use: No Drug/Substance Use Hx: No Substance Use Type: None Hx Substance Use Treatment: No Review of Systems - Review of Systems Constitutional: No: Chills, Fever, Night Sweats, Weakness HEENTM: No: Blurred Vision, Tinnitus, Difficulty Swallowing Respiratory: No: Cough, Shortness of Breath, Productive cough ABD/GI: No: Abdominal Distended, Difficulty Swallowing, Nausea, Poor Fluid Intake, Vomiting : No: Burning, Dysuria, Hematuria, Incontinence Integumentary: No: Erythema, Pruritus, Rash Neurological: Yes: Headache, Unsteady Gait (ambulates with walker at baseline). No: Numbness, Paresthesia, Tingling, Tremors Psychiatric: Yes: Anxiety (doesn't like being at home alone due to anxiety of dying) *Physical Exam - Vital Signs Last Vital Signs Temp Pulse Resp BP Pulse Ox 98.5 F 92 H 18 150/89 99 04/11/18 15:39 04/11/18 15:39 04/11/18 15:39 04/11/18 15:39 04/11/18 15:39 - Physical Exam General Appearance: Yes: Appropriately Dressed Neck: positive: Trachea midline, Normal Thyroid, Supple. negative: Tender Respiratory/Chest: positive: Normal Breath Sounds Cardiovascular: positive: Regular Rhythm, Regular Rate Gastrointestinal/Abdominal: positive: Normal Bowel Sounds, Soft Musculoskeletal: negative: CVA Tenderness Neurologic: positive: Alert, Other (unsteady gait, normal speech, facial symmetry, no pronator drift.) Moderate Sedation - Procedure Monitoring Vital Signs: Procedure Monitoring Vital Signs Temperature 98.5 F 04/11/18 15:39 Pulse Rate 92 H 04/11/18 15:39 Respiratory Rate 18 04/11/18 15:39 Blood Pressure 150/89 04/11/18 15:39 O2 Sat by Pulse Oximetry (%) 99 04/11/18 15:39 ED Treatment Course - LABORATORY CBC & Chemistry Diagram: 04/11/18 17:00 04/11/18 17:00 Medical Decision Making - Medical Decision Making 04/11/18 19:10 72 yr old woman with chest pain and headache with ataxic gait worse than baseline, head CT CBC, CMP, check tyelonol level, cardiac profile and ekg no leucocytosis, anemia, trop neg, ekg normal cmp mildly hemolyzed, and acetominophen level will be altered, so repeat CMP ordered. will send microblod for tele-obs to observation patient overnight with social work involvement to ensure reinstatement of ESL INSTRUCTOR in vulnerable adult living at home alone. discussed case with social services assistant in ED who is familiar with ms. henry' case and will call the agency. microblog sent and signout given to accepting hospitalist team. pt placed under tele-obs, consult for social work placed. *DC/Admit/Observation/Transfer Diagnosis at time of Disposition: Chest pain Qualifiers: Chest pain type: chest pain on breathing Qualified Code(s): R07.1 - Chest pain on breathing - Referrals Referrals: Waldo Mabry MD [Primary Care Provider] - - Patient Instructions - Post Discharge Activity
[2018-04-11 17:30] LABS: BASO % 0.7 % (0-2.0); EOS % 2.4 % (0-4.5); HEMATOCRIT 33.8 % (32.4-45.2); HEMOGLOBIN 11.1 GM/dL (10.7-15.3); LYMPH % 21.3 % (8-40); MCH 25.3 pg (25.7-33.7); MCHC 32.8 g/dl (32.0-36.0); MEAN CELL VOLUME 77.3 fl (80-96); MEAN PLT VOLUME 7.6 fl (7.5-11.1); NEUT % 65.6 % (42.8-82.8); PLATELET COUNT 338 K/MM3 (134-434); RBC 4.37 M/mm3 (3.60-5.2); RDW 21.4 % (11.6-15.6); WHITE BLOOD COUNT 6.1 K/mm3 (4.0-10.0)
[2018-04-11 17:52] LABS: ANISOCYTOSIS 2+; PLATELET ESTIMATE ADEQUATE
[2018-04-11 18:01] LABS: ALBUMIN 3.5 g/dl (3.4-5.0); ALK PHOS 190 U/L (45-117); ANION GAP 5 MMOL/L (8-16); BILIRUBIN,TOTAL 0.4 mg/dL (0.2-1); BLOOD UREA NITROGEN 11 mg/dL (7-18); CALCIUM 8.8 mg/dL (8.5-10.1); CHLORIDE 105 mmol/L (98-107); CO2 24 mmol/L (21-32); CREATININE 0.6 mg/dL (0.55-1.3); GLUCOSE,RANDOM 125 mg/dL (74-106); POTASSIUM 5.4 mmol/L (3.5-5.1); SGOT/AST 50 U/L (15-37); SGPT/ALT 37 U/L (13-61); SODIUM 134 mmol/L (136-145); TOT PROT 7.6 g/dl (6.4-8.2)
[2018-04-11 19:13] LABS: ALBUMIN 3.6 g/dl (3.4-5.0); ALK PHOS 195 U/L (45-117); ANION GAP 5 MMOL/L (8-16); BILIRUBIN,TOTAL 0.3 mg/dL (0.2-1); BLOOD UREA NITROGEN 10 mg/dL (7-18); CALCIUM 8.9 mg/dL (8.5-10.1); CHLORIDE 104 mmol/L (98-107); CO2 28 mmol/L (21-32); CREATININE 0.7 mg/dL (0.55-1.3); GLUCOSE,RANDOM 115 mg/dL (74-106); POTASSIUM 4.5 mmol/L (3.5-5.1); SGOT/AST 30 U/L (15-37); SGPT/ALT 36 U/L (13-61); SODIUM 138 mmol/L (136-145); TOT PROT 7.6 g/dl (6.4-8.2)
--- NOTE | 2018-04-11 19:37 | PN ---
Teaching Attending Note Name of Resident: Donna German ATTENDING PHYSICIAN STATEMENT I saw and evaluated the patient. I reviewed the resident's note and discussed the case with the resident. I agree with the resident's findings and plan as documented. SUBJECTIVE: Patient is a 72 year old woman with PMH of HTN, HLD, Anxiety disordrer, Depression, CVA (2009 - with residual altered balance, baseline confusion and dizziness), Seizures (s/p craniotomy for left meningioma - on Depakote for seizure prophylaxis), cholecystectomy, COPD, GERD, bilateral knee replacement, Kidney stones, NIDDM (?diet-controlled), chronic chest pain with multiple visits to the ER with chest pain who presents with headache and left sided chest pain. Headache is all over the head, continuous. Chest pain is similar to previous chest pain, located in the left side, nonradiating without alleviating or exacerbating factors. She is also complaining of worsening dizziness - worse when she stands. Patient says her headache has not been coming for the past 2 days. As per EMS she took 4 extra strength tylenol at home - however she denies taking tylenol. She denies fevers, cough, dysuria, chillls, falls, syncope, tremors, palpitations or vomiting. Patient is allergic to aspirin and morphine. OBJECTIVE: Alert, not orthostatic Vital Signs Period Temp Pulse Resp BP Sys/Christensen Pulse Ox Last 24 Hr 98.5 F 92 18 150/89 99 HEENT: No Jaundice, eye redness or discharge, PERRLA, EOMI. Normocephalic, atraumatic. External ears are normal and hearing is grossly intact. No nasal discharge. Neck: Supple, nontender. No palpable adenopathy or thyromegaly. No JVD Chest: Good effort. Clear to auscultation. Reproducible chest pain. Heart: Regular. No S3, rub or murmur Abdomen: Not distended, soft, nontender and no HSM. No rebound or guarding. Normoactive bowel sounds. Ext: Peripheral pulses intact. No leg edema. Skin: Warm and dry. No petechiae, rash or ecchymosis. Neuro: Alert. Oriented x3. CN 2-12 grossly intact. Slow and unsteady gait. Sensation grossly intact in all four extremities and DTR are symmetric. Home Medications Medication Instructions Recorded Amlodipine Besylate 5 mg PO DAILY 11/06/17 Divalproex Sodium [Depakote] 500 mg PO BID 11/06/17 Famotidine 20 mg PO BID 11/06/17 Lisinopril [Prinivil] 5 mg PO DAILY #30 tablet 11/07/17 Abnormal Lab Results 04/11/18 04/11/18 04/11/18 17:00 17:00 18:31 MCV 77.3 L MCH 25.3 L RDW 21.4 H Sodium 134 L Potassium 5.4 H Anion Gap 5 L 5 L Random Glucose 125 H 115 H AST 50 H Alkaline Phosphatase 190 H 195 H ASSESSMENT AND PLAN: 1. Chest pain - Pain is atypical. EKG is NSR with no significant ST-T wave changes. Will admit to telemetry to rule out ACS and get ECHO. Await tylenol level before continuing on tylenol for headache. Mild hyperkalemia is due to hemolysed sample - repeat BMP pending. Ataxia - No acute pathology on head CT. No discernable change in her gait compared to prior recent admissions. Will consult neurology and consider brain MRI after neurology consult in view of prior meningioma. However patient needs social work evaluation since the overriding issue is "nonclinical". She has been hospitalized multiple times in the past 6 months. She lives alone and is supposed to have a Home Health Aide, but she says the Aide has not been coming as scheduled. 2. DM Will implement sliding scale insulin regimen. Provide comprehensive diabetes care with patient teaching and counseling about the importance of adherence to prescribed diabetes regimen, euglycemia, eye care and foot care. 3. Obesity - Will provide patient all the necessary assistance, counseling and positive reinforcement to facilitate weight loss. Consult brush hand. 4. Restart outpatient antihypertensive drugs and revise regimen to ensure smooth [id number] good BP control. Nonpharmacologic measures to control hypertension like weight loss, salt restriction and exercise discussed. 5. DVT prophylaxis - Lovenox 40 mg SQ q 24 hours. 6. Advance directives - Full code
[2018-04-11] MEDS ORDERED: ACETAMINOPHEN 325 MG TABLET (FP) ONE (20:13)
--- NOTE | 2018-04-11 20:26 | HP ---
<Renaldo Hatfield - Last Filed: 04/12/18 08:22> CHIEF COMPLAINT: PCP: HISTORY OF PRESENT ILLNESS: ER course was notable for: (1) (2) (3) Recent Travel: PAST MEDICAL HISTORY: PAST SURGICAL HISTORY: Social History: Smoking: Alcohol: Drugs: Family History: Allergies aspirin Allergy (Severe, Verified 04/11/18 15:42) "NERVOUS" morphine Allergy (Severe, Verified 04/11/18 15:42) "ANXIETY-DESPERATION" HOME MEDICATIONS: Home Medications Medication Instructions Recorded Amlodipine Besylate 5 mg PO DAILY 11/06/17 Divalproex Sodium [Depakote] 500 mg PO BID 11/06/17 Famotidine 20 mg PO BID 11/06/17 Lisinopril [Prinivil] 5 mg PO DAILY #30 tablet 11/07/17 REVIEW OF SYSTEMS CONSTITUTIONAL: Absent: fever, chills, diaphoresis, generalized weakness, malaise, loss of appetite, weight change HEENT: Absent: rhinorrhea, nasal congestion, throat pain, throat swelling, difficulty swallowing, mouth swelling, ear pain, eye pain, visual changes CARDIOVASCULAR: Absent: chest pain, syncope, palpitations, irregular heart rate, lightheadedness , peripheral edema RESPIRATORY: Absent: cough, shortness of breath, dyspnea with exertion, orthopnea, wheezing, stridor, hemoptysis GASTROINTESTINAL: Absent: abdominal pain, abdominal distension, nausea, vomiting, diarrhea, constipation, melena, hematochezia GENITOURINARY: Absent: dysuria, frequency, urgency, hesitancy, hematuria, flank pain, genital pain MUSCULOSKELETAL: Absent: myalgia, arthralgia, joint swelling, back pain, neck pain SKIN: Absent: rash, itching, pallor HEMATOLOGIC/IMMUNOLOGIC: Absent: easy bleeding, easy bruising, lymphadenopathy, frequent infections ENDOCRINE: Absent: unexplained weight gain, unexplained weight loss, heat intolerance, cold intolerance NEUROLOGIC: Absent: headache, focal weakness or paresthesias, dizziness, unsteady gait, seizure, mental status changes, bladder or bowel incontinence PSYCHIATRIC: Absent: anxiety, depression, suicidal or homicidal ideation, hallucinations. PHYSICAL EXAMINATION Vital Signs - 24 hr 04/11/18 04/11/18 04/11/18 15:39 18:57 20:20 Temperature 98.5 F 97.8 F Pulse Rate 92 H 81 Pulse Rate [ Apical] Respiratory 18 14 Rate Blood Pressure 150/89 107/58 L Blood Pressure [Right Arm] O2 Sat by Pulse 99 96 99 Oximetry (%) 04/11/18 04/11/18 04/12/18 23:46 23:50 01:00 Temperature 97.9 F 98.2 F Pulse Rate 77 Pulse Rate [ 89 Apical] Respiratory 18 18 18 Rate Blood Pressure 134/59 L Blood Pressure 138/82 [Right Arm] O2 Sat by Pulse 99 99 Oximetry (%) 04/12/18 05:00 Temperature 97.2 F L Pulse Rate 68 Pulse Rate [ Apical] Respiratory 13 Rate Blood Pressure 121/57 L Blood Pressure [Right Arm] O2 Sat by Pulse Oximetry (%) GENERAL: Awake, alert, and fully oriented, in no acute distress. HEAD: Normal with no signs of trauma. EYES: Pupils equal, round and reactive to light, extraocular movements intact, sclera anicteric, conjunctiva clear. No lid lag. EARS, NOSE, THROAT: Ears normal, nares patent, oropharynx clear without exudates. Moist mucous membranes. NECK: Normal range of motion, supple without lymphadenopathy, JVD, or masses. LUNGS: Breath sounds equal, clear to auscultation bilaterally. No wheezes, and no crackles. No accessory muscle use. HEART: Regular rate and rhythm, normal S1 and S2 without murmur, rub or gallop. ABDOMEN: Soft, nontender, not distended, normoactive bowel sounds, no guarding, no rebound, no masses. No hepatomegaly or splenomegaly. MUSCULOSKELETAL: Normal range of motion at all joints. No bony deformities or tenderness. No CVA tenderness. UPPER EXTREMITIES: 2+ pulses, warm, well-perfused. No cyanosis. No clubbing. No peripheral edema. LOWER EXTREMITIES: 2+ pulses, warm, well-perfused. No calf tenderness. No peripheral edema. NEUROLOGICAL: Cranial nerves II-XII intact. Normal speech. Normal gait. PSYCHIATRIC: Cooperative. Good eye contact. Appropriate mood and affect. SKIN: Warm, dry, normal turgor, no rashes or lesions noted, normal capillary refill. Laboratory Results - last 24 hr 04/11/18 04/11/18 04/11/18 17:00 17:00 18:31 WBC 6.1 RBC 4.37 Hgb 11.1 Hct 33.8 MCV 77.3 L MCH 25.3 L MCHC 32.8 RDW 21.4 H Plt Count 338 MPV 7.6 Absolute Neuts (auto) 4.0 Neutrophils % 65.6 Lymphocytes % 21.3 D Monocytes % 10.0 Eosinophils % 2.4 Basophils % 0.7 Nucleated RBC % 0 Platelet Estimate Adequate Platelet Comment No clumping noted Anisocytosis 2+ Microcytosis 1+ Sodium 134 L 138 Potassium 5.4 H 4.5 Chloride 105 104 Carbon Dioxide 24 28 Anion Gap 5 L 5 L BUN 11 10 Creatinine 0.6 0.7 Creat Clearance w eGFR > 60 > 60 Random Glucose 125 H 115 H Calcium 8.8 8.9 Total Bilirubin 0.4 0.3 AST 50 H 30 ALT 37 36 Alkaline Phosphatase 190 H 195 H Creatine Kinase 131 Troponin I < 0.02 Total Protein 7.6 7.6 Albumin 3.5 3.6 Acetaminophen < 2 L 04/11/18 04/11/18 04/11/18 20:45 20:45 20:45 WBC 4.9 RBC 4.07 Hgb 10.2 L Hct 31.4 L MCV 77.3 L MCH 25.1 L MCHC 32.5 RDW 21.5 H Plt Count 313 MPV 7.2 L Absolute Neuts (auto) 3.0 Neutrophils % 61.9 Lymphocytes % 20.2 Monocytes % 13.6 H Eosinophils % 3.7 Basophils % 0.6 Nucleated RBC % 0 Platelet Estimate Platelet Comment Anisocytosis Microcytosis Sodium 136 Potassium 4.1 Chloride 105 Carbon Dioxide 26 Anion Gap 5 L BUN 12 Creatinine 0.7 Creat Clearance w eGFR > 60 Random Glucose 131 H Calcium 8.8 Total Bilirubin 0.2 AST 24 ALT 33 Alkaline Phosphatase 172 H Creatine Kinase 81 Troponin I < 0.02 Total Protein 6.8 Albumin 3.3 L Acetaminophen 8.8 L 04/12/18 04/12/18 05:30 05:30 WBC 5.0 RBC 4.19 Hgb 10.3 L Hct 32.2 L MCV 76.7 L MCH 24.7 L MCHC 32.2 RDW 22.2 H Plt Count 322 MPV 7.7 Absolute Neuts (auto) 3.0 Neutrophils % 59.6 Lymphocytes % 23.2 Monocytes % 12.5 H Eosinophils % 4.0 Basophils % 0.7 Nucleated RBC % 0 Platelet Estimate Platelet Comment Anisocytosis Microcytosis Sodium 135 L Potassium 4.5 Chloride 103 Carbon Dioxide 25 Anion Gap 7 L BUN 13 Creatinine 0.6 Creat Clearance w eGFR > 60 Random Glucose 105 Calcium 8.7 Total Bilirubin 0.4 AST 30 ALT 33 Alkaline Phosphatase 156 H Creatine Kinase Troponin I Total Protein 6.8 Albumin 3.3 L Acetaminophen ASSESSMENT/PLAN: <Donna German - Last Filed: 04/15/18 19:11> CHIEF COMPLAINT: chest pain PCP: Dr. Mabry HISTORY OF PRESENT ILLNESS: 72F w/ pmhx of HTN, CVA, HLD, HTN, chronic hyponatremia, COPD presented to the ED with chronic chest pain. Chest pain is L sided, pressure-like and radiates to her L arm. It is constant throughout the day, is reproducible, and is associated with generalized headaches. At home, she usually takes Tylenol for the pain at home, which usually helps her. Of note, she is frequently seen in the ED for the same chest pain. 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 At baseline, she uses a walker, but does not currently endorse any difficulty walking or neurological symptoms. ER course was notable for: (1) VS wnl, Na 129, K 5.4 (although hemolyzed), AST/ALT 50/37, Alk P 190, Trop neg (2) Head CT neg (3) Recent Travel: Denies PAST MEDICAL HISTORY: HTN CVA HLD HTN seizures PAST SURGICAL HISTORY: Cataract sx seizures s/p brain sx, L meningioma (2001) R knee replacement Social History: Smoking: Denies Alcohol: Denies Drugs: Denies Family History: Denies Allergies aspirin Allergy (Severe, Verified 04/11/18 15:42) "NERVOUS" morphine Allergy (Severe, Verified 04/11/18 15:42) "ANXIETY-DESPERATION" HOME MEDICATIONS: Home Medications Medication Instructions Recorded Amlodipine Besylate 5 mg PO DAILY 11/06/17 Divalproex Sodium [Depakote] 500 mg PO BID 11/06/17 Famotidine 20 mg PO BID 11/06/17 Lisinopril [Prinivil] 5 mg PO DAILY #30 tablet 11/07/17 REVIEW OF SYSTEMS CONSTITUTIONAL: Absent: fever, chills, diaphoresis, generalized weakness, malaise, HEENT: Absent: rhinorrhea, nasal congestion, throat pain, throat swelling, visual changes CARDIOVASCULAR: +L sided chest pain Absent: syncope, palpitations, irregular heart rate, lightheadedness, peripheral edema RESPIRATORY: Absent: cough, shortness of breath, dyspnea with exertion, orthopnea, GASTROINTESTINAL: Absent: abdominal pain, abdominal distension, nausea, vomiting, diarrhea, constipation, melena, hematochezia GENITOURINARY: Absent: dysuria, frequency, urgency, hesitancy, hematuria, flank pain, genital pain MUSCULOSKELETAL: Absent: myalgia, arthralgia, joint swelling, back pain, neck pain SKIN: Absent: rash, itching, pallor HEMATOLOGIC/IMMUNOLOGIC: Absent: easy bleeding, easy bruising, lymphadenopathy, frequent infections ENDOCRINE: Absent: unexplained weight gain, unexplained weight loss, heat intolerance, cold intolerance NEUROLOGIC: +headache Absent: focal weakness or paresthesias, dizziness, unsteady gait, seizure, mental status changes, bladder or bowel incontinence PHYSICAL EXAMINATION Vital Signs - 24 hr 04/11/18 15:39 Temperature 98.5 F Pulse Rate 92 H Respiratory 18 Rate Blood Pressure 150/89 O2 Sat by Pulse 99 Oximetry (%) GENERAL: Awake, alert, and fully oriented, in no acute distress. HEAD: Normal with no signs of trauma. EYES: Pupils equal, round and reactive to light, extraocular movements intact, sclera anicteric, conjunctiva clear. No lid lag. EARS, NOSE, THROAT: Ears normal, nares patent, oropharynx clear without exudates. Moist mucous membranes. NECK: Normal range of motion, supple without lymphadenopathy, JVD, or masses. LUNGS: Breath sounds equal, clear to auscultation bilaterally. No wheezes, and no crackles. No accessory muscle use. HEART: Regular rate and rhythm, normal S1 and S2 without murmur, rub or gallop. ABDOMEN: Soft, nontender, not distended, normoactive bowel sounds, no guarding, no rebound, no masses. No hepatomegaly or splenomegaly. MUSCULOSKELETAL: Normal range of motion at all joints. No bony deformities or tenderness. No CVA tenderness. UPPER EXTREMITIES: 2+ pulses, warm, well-perfused. No cyanosis. No clubbing. No peripheral edema. LOWER EXTREMITIES: 2+ pulses, warm, well-perfused. No calf tenderness. No peripheral edema. NEUROLOGICAL: Cranial nerves II-XII intact. Normal speech. Normal gait. PSYCHIATRIC: Cooperative. Good eye contact. Appropriate mood and affect. SKIN: Warm, dry, normal turgor, no rashes or lesions noted, normal capillary refill. Laboratory Results - last 24 hr 04/11/18 04/11/18 04/11/18 17:00 17:00 18:31 WBC 6.1 RBC 4.37 Hgb 11.1 Hct 33.8 MCV 77.3 L MCH 25.3 L MCHC 32.8 RDW 21.4 H Plt Count 338 MPV 7.6 Absolute Neuts (auto) 4.0 Neutrophils % 65.6 Lymphocytes % 21.3 D Monocytes % 10.0 Eosinophils % 2.4 Basophils % 0.7 Nucleated RBC % 0 Platelet Estimate Adequate Platelet Comment No clumping noted Anisocytosis 2+ Microcytosis 1+ Sodium 134 L 138 Potassium 5.4 H 4.5 Chloride 105 104 Carbon Dioxide 24 28 Anion Gap 5 L 5 L BUN 11 10 Creatinine 0.6 0.7 Creat Clearance w eGFR > 60 > 60 Random Glucose 125 H 115 H Calcium 8.8 8.9 Total Bilirubin 0.4 0.3 AST 50 H 30 ALT 37 36 Alkaline Phosphatase 190 H 195 H Creatine Kinase 131 Troponin I < 0.02 Total Protein 7.6 7.6 Albumin 3.5 3.6 Acetaminophen < 2 L IMAGING: * Head CT: neg for acute IC pathology * EKG: NSR, HR 83, QTc 444 ms, no ST-T changes. ASSESSMENT/PLAN: 72F w/ pmhx of HTN, CVA, HLD, HTN, chronic hyponatremia, COPD presented to the ED with chronic chest pain admitted to r/o ACS. #Chest pain; r/o ACS -atypical chest pain. EKG showed NSR, HR 83, QTc 444 ms, no ST-T changes. Trops neg x2 -admit to tele -Echo ordered -Tylenol 650 Q6H PO for pain #? Ataxic gait -No acute pathology on head CT seen -There were no changes in gait upon exam. At baseline, she uses a walker. -Consider neuro consult -Orthostatics: sitting- 134/105, HR 107; standing- 145/85, HR 92 #DM -Hold home DM meds -BGM/ISS ACHS #HTN -Cont home meds: Norvasc 5 QD, Lisinopril 5 QD #Hx of Seizure d/o -Cont home meds: Depakote 500 BID #Prophylaxis -Lovenox 40 QD Cont home med: Famotidine 20 BID #FEN -PO hydration -recheck lytes in AM -Sodium-controlled diet dispo -admit to tele obs -full code Visit type - Emergency Visit Emergency Visit: Yes ED Registration Date: 04/11/18 Care time: The patient presented to the Emergency Department on the above date and was hospitalized for further evaluation of their emergent condition. - New Patient This patient is new to me today: Yes Date on this admission: 04/15/18 - Critical Care Critical Care patient: No
[2018-04-11 21:20] LABS: BASO % 0.6 % (0-2.0); EOS % 3.7 % (0-4.5); HEMATOCRIT 31.4 % (32.4-45.2); HEMOGLOBIN 10.2 GM/dL (10.7-15.3); LYMPH % 20.2 % (8-40); MCH 25.1 pg (25.7-33.7); MCHC 32.5 g/dl (32.0-36.0); MEAN CELL VOLUME 77.3 fl (80-96); MEAN PLT VOLUME 7.2 fl (7.5-11.1); MONO % 13.6 % (3.8-10.2); NEUT % 61.9 % (42.8-82.8); PLATELET COUNT 313 K/MM3 (134-434); RBC 4.07 M/mm3 (3.60-5.2); RDW 21.5 % (11.6-15.6); WHITE BLOOD COUNT 4.9 K/mm3 (4.0-10.0)
[2018-04-11 21:59] LABS: BLOOD UREA NITROGEN 12 mg/dL (7-18); CHLORIDE 105 mmol/L (98-107); CO2 26 mmol/L (21-32); CREATININE 0.7 mg/dL (0.55-1.3); GLUCOSE,RANDOM 131 mg/dL (74-106); POTASSIUM 4.1 mmol/L (3.5-5.1); SODIUM 136 mmol/L (136-145)
[2018-04-11 22:00] LABS: ALBUMIN 3.3 g/dl (3.4-5.0); ALK PHOS 172 U/L (45-117); ANION GAP 5 MMOL/L (8-16); BILIRUBIN,TOTAL 0.2 mg/dL (0.2-1); CALCIUM 8.8 mg/dL (8.5-10.1); SGOT/AST 24 U/L (15-37); SGPT/ALT 33 U/L (13-61); TOT PROT 6.8 g/dl (6.4-8.2)
[2018-04-12] MEDS: ACETAMINOPHEN 325 MG TABLET (FP) PO PRN ×3 (05:36→18:40)
[2018-04-12 06:44] LABS: BASO % 0.7 % (0-2.0); HEMATOCRIT 32.2 % (32.4-45.2); HEMOGLOBIN 10.3 GM/dL (10.7-15.3); LYMPH % 23.2 % (8-40); MCH 24.7 pg (25.7-33.7); MCHC 32.2 g/dl (32.0-36.0); MEAN CELL VOLUME 76.7 fl (80-96); MEAN PLT VOLUME 7.7 fl (7.5-11.1); MONO % 12.5 % (3.8-10.2); NEUT % 59.6 % (42.8-82.8); PLATELET COUNT 322 K/MM3 (134-434); RBC 4.19 M/mm3 (3.60-5.2); RDW 22.2 % (11.6-15.6)
[2018-04-12 07:17] VITALS: BMI 35.2
[2018-04-12 08:01] LABS: ALBUMIN 3.3 g/dl (3.4-5.0); ALK PHOS 156 U/L (45-117); ANION GAP 7 MMOL/L (8-16); BILIRUBIN,TOTAL 0.4 mg/dL (0.2-1); BLOOD UREA NITROGEN 13 mg/dL (7-18); CALCIUM 8.7 mg/dL (8.5-10.1); CHLORIDE 103 mmol/L (98-107); CO2 25 mmol/L (21-32); CREATININE 0.6 mg/dL (0.55-1.3); GLUCOSE,RANDOM 105 mg/dL (74-106); POTASSIUM 4.5 mmol/L (3.5-5.1); SGOT/AST 30 U/L (15-37); SGPT/ALT 33 U/L (13-61); SODIUM 135 mmol/L (136-145); TOT PROT 6.8 g/dl (6.4-8.2)
--- NOTE | 2018-04-12 08:22 | PN ---
Teaching Attending Note Name of Resident: Carlyle Dajanneth ATTENDING PHYSICIAN STATEMENT I saw and evaluated the patient. I reviewed the resident's note and discussed the case with the resident. I agree with the resident's findings and plan as documented. SUBJECTIVE: Patient is c/o having chest pain , patient is here for multiple times for the same concerns. OBJECTIVE: Vital Signs Temperature 97.2 F L 04/12/18 05:00 Pulse Rate 68 04/12/18 05:00 Respiratory Rate 13 04/12/18 05:00 Blood Pressure 121/57 L 04/12/18 05:00 O2 Sat by Pulse Oximetry (%) 99 04/11/18 23:50 Initial Vital Signs Temp Pulse Resp BP Pulse Ox 98.5 F 92 H 18 150/89 99 04/11/18 15:39 04/11/18 15:39 04/11/18 15:39 04/11/18 15:39 04/11/18 15:39 GENERAL: Awake, alert, and fully oriented, in no acute distress. HEAD: Normal with no signs of trauma. EYES: Pupils equal, round and reactive to light, extraocular movements intact, sclera anicteric, conjunctiva clear. EARS, NOSE, THROAT: Ears normal, oropharynx clear without exudates. Moist mucous membranes. NECK:positive for neck tenderness on the pressure points. Normal range of motion , supple without lymphadenopathy, JVD, or masses. LUNGS: Breath sounds equal, clear to auscultation bilaterally. No wheezes, and no crackles. No accessory muscle use. HEART: Regular rate and rhythm, normal S1 and S2 without murmur, rub or gallop. ABDOMEN: Soft, obese, nontender, ND, normoactive bowel sounds, no guarding, no rebound, no masses. MUSCULOSKELETAL: Normal range of motion at all joints. No bony deformities or tenderness. No CVA tenderness. EXTREMITIES: 2+ pulses, warm, well-perfused. No cyanosis. No clubbing. No peripheral edema. NEUROLOGICAL: Cranial nerves II-XII intact. Normal speech. Normal gait. PSYCHIATRIC: Cooperative. Good eye contact. Appropriate mood and affect. SKIN: Warm, dry, normal turgor, no rashes or lesions noted, normal capillary refill. CBCD WBC 5.0 K/mm3 (4.0-10.0) 04/12/18 05:30 RBC 4.19 M/mm3 (3.60-5.2) 04/12/18 05:30 Hgb 10.3 GM/dL (10.7-15.3) L 04/12/18 05:30 Hct 32.2 % (32.4-45.2) L 04/12/18 05:30 MCV 76.7 fl (80-96) L 04/12/18 05:30 MCHC 32.2 g/dl (32.0-36.0) 04/12/18 05:30 RDW 22.2 % (11.6-15.6) H 04/12/18 05:30 Plt Count 322 K/MM3 (134-434) 04/12/18 05:30 MPV 7.7 fl (7.5-11.1) 04/12/18 05:30 CMP Sodium 135 mmol/L (136-145) L 04/12/18 05:30 Potassium 4.5 mmol/L (3.5-5.1) 04/12/18 05:30 Chloride 103 mmol/L (98-107) 04/12/18 05:30 Carbon Dioxide 25 mmol/L (21-32) 04/12/18 05:30 Anion Gap 7 MMOL/L (8-16) L 04/12/18 05:30 BUN 13 mg/dL (7-18) 04/12/18 05:30 Creatinine 0.6 mg/dL (0.55-1.3) 04/12/18 05:30 Creat Clearance w eGFR > 60 (>60) 04/12/18 05:30 Random Glucose 105 mg/dL (74-106) 04/12/18 05:30 Calcium 8.7 mg/dL (8.5-10.1) 04/12/18 05:30 Total Bilirubin 0.4 mg/dL (0.2-1) 04/12/18 05:30 AST 30 U/L (15-37) 04/12/18 05:30 ALT 33 U/L (13-61) 04/12/18 05:30 Alkaline Phosphatase 156 U/L (45-117) H 04/12/18 05:30 Total Protein 6.8 g/dl (6.4-8.2) 04/12/18 05:30 Albumin 3.3 g/dl (3.4-5.0) L 04/12/18 05:30 CARDIAC ENZYMES Creatine Kinase 81 U/L (26-192) 04/11/18 20:45 Troponin I < 0.02 ng/ml (0.00-0.05) 04/11/18 20:45 Current Medications Generic Name Dose Route Start Last Admin Trade Name Freq PRN Reason Stop Dose Admin Acetaminophen 650 mg 04/11/18 20:06 04/12/18 05:36 Tylenol - PO 650 mg Q6H PRN Administration PAIN LEVEL 6-10 Amlodipine Besylate 5 mg 04/12/18 10:00 Norvasc - PO DAILY [facility] Divalproex Sodium 500 mg 04/12/18 10:00 Depakote - PO BID KATHERINE Enoxaparin Sodium 40 mg 04/12/18 10:00 Lovenox - SQ DAILY KATHERINE Lisinopril 5 mg 04/12/18 10:00 Prinivil PO DAILY [facility] Ranitidine HCl 150 mg 04/12/18 10:00 Zantac - PO BID KATHERINE Home Medications Medication Instructions Recorded Amlodipine Besylate 5 mg PO DAILY 11/06/17 Divalproex Sodium [Depakote] 500 mg PO BID 11/06/17 Famotidine 20 mg PO BID 11/06/17 Lisinopril [Prinivil] 5 mg PO DAILY #30 tablet 11/07/[address]: neg for acute IC pathology EKG: NSR, HR 83, QTc 444 ms, no ST-T changes. ASSESSMENT AND PLAN: Patient is 72yo with pmhx of HTN, CVA, HLD, HTN, chronic hyponatremia, COPD presented to the ED with chronic chest pain admitted to r/o ACS. #acute chest pain , acs is ruled out , Atypical chest pain reproducable, 2 sets of troponin are negative. EKG showed NSR, HR 83, QTc 444 ms, no ST-T changes. Echo ordered follow the result, Tylenol 650 Q6H PO for pain. as per patient had a recent cardiac w/u with negative result. #Headaches are likely due to cervical neck tenderness. will add Flexeril 5mg tid prn . # Ataxic gait, Neuro consult appreciated , need Gait training/rehab #DM: Hold home DM meds, BGM/ISS ACHS #HTN: continue home meds. #Hx of Seizure cont home meds: Depakote 500 BID DVT Px: Lovenox 40 QD GI Px: Famotidine 20 BID ESR, CRP, TSH, FT4 level.
[2018-04-12] MEDS: LISINOPRIL 5 MG TABLET (FP) PO SCH (09:30)
[2018-04-12] MEDS ORDERED: PT OWN MED DRAWER 7, Y5N ONE ×3 (09:30→21:21)
[2018-04-12] MEDS: ENOXAPARIN NA (PORCINE) 40 MG/0.4 ML DISP.SYRIN SQ SCH (09:31)
[2018-04-12] MEDS: DIVALPROEX SODIUM 500 MG TABLET E.C. PO SCH (09:31)
[2018-04-12] MEDS: RANITIDINE HCL 150 MG TABLET (FP) PO SCH ×2 (09:31→21:20)
[2018-04-12] MEDS: amLODIPine BESYLATE 5 MG TABLET (FP) PO SCH (09:31)
[2018-04-12 09:56] LABS: CHOLESTEROL 179 mg/dL (50-200); HDL CHOLESTEROL 76 mg/dL (40-60); TRIGLYCERIDES 174 mg/dL (0-150)
--- NOTE | 2018-04-12 11:57 | CON.CARD ---
Consult Consult Specialty:: cardiology Reason for Consultation:: chest pain - History of Present Illness History of Present Illness: The patient is a 72-year-old female well-known to this ED, with a past medical history of anxiety/depression/panic, chronic chest pain, CVA s/p craniotomy for ?benign tumor, COPD, GERD, HLD, and HTN, who presents to the ED via EMS for evaluation of left breast pain, shortness of breath, and headache. Symptoms are similar to the what she has experienced in the past. Chest pain is reproducible with palpation of left breast. New onset of ataxia noted while patient was ambulating in the ER. The patient denies any fevers, chills, nausea, vomiting, diarrhea, or abdominal pain. Denies any palpitations. Denies any dizziness, lightheadedness, or changes in strength or sensation. PMD: Dr. Mabry. Stress MIBI 05/2017 negative for ischemia. 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: CVA Cardio/Vascular: Yes: HTN, Hyperlipdemia Gastrointestinal: Yes: GERD, Hiatal Hernia, Peptic Ulcer Disease Renal/: Yes: Other (hyponatremia) Reproductive: Yes: Postmenopausal ...: No Psych: Yes: Anxiety, Depression Musculoskeletal: Yes: Osteoarthritis Endocrine: Yes: Diabetes Mellitus - Past Surgical History Past Surgical History: Yes: Cataract Removal (bilateral), Joint Replacement (RT KNEE) Additional Surgical History: craniotomy for ?benign tumor - Alcohol/Substance Use Hx Alcohol Use: No History of Substance Use: reports: None - Smoking History Smoking history: Never smoked Have you smoked in the past 12 months: No Aproximately how many cigarettes per day: 0 - Social History Usual Living Arrangement: Alone ADL: Support Services ([employer] 8 hours daily, 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 History of Recent Travel: No Home Medications - Allergies Allergies/Adverse Reactions: Allergies Allergy/AdvReac Type Severity Reaction Status Date / Time aspirin Allergy Severe "NERVOUS" Verified 04/11/18 15:42 morphine Allergy Severe "ANXIETY-DE Verified 04/11/18 15:42 SPERATION" - Home Medications Home Medications: Ambulatory Orders Amlodipine Besylate 5 mg PO DAILY 11/06/17 Divalproex Sodium [Depakote] 500 mg PO BID 11/06/17 Famotidine 20 mg PO BID 11/06/17 Lisinopril [Prinivil] 5 mg PO DAILY #30 tablet 11/07/17 Escitalopram Oxalate [Lexapro -] 10 mg PO DAILY 04/13/18 Metoprolol Succinate [Toprol Xl] 04/13/18 Mirtazapine 15 mg PO HS 04/13/18 Quetiapine Fumarate [Seroquel -] 25 mg PO 04/13/18 Family Disease History - Family Disease History Family History: Denies Review of Systems - Review of Systems Constitutional: reports: No Symptoms Eyes: reports: No Symptoms HENT: reports: No Symptoms Neck: reports: No Symptoms Cardiovascular: reports: Chest Pain Respiratory: reports: No Symptoms Gastrointestinal: reports: No Symptoms Genitourinary: reports: No Symptoms Breasts: reports: Other (pain in left breast) Integumentary: reports: No Symptoms Neurological: reports: Unsteady Gait Endocrine: reports: No Symptoms Hematology/Lymphatic: reports: No Symptoms Psychiatric: reports: Anxiety, Depression, Panic - Risk Factors Known Risk Factors: Yes: Age, Prior ND /Emb Stroke (?hx CVA) Vital Signs: Vital Signs Temperature 97.2 F L 04/12/18 05:00 Pulse Rate 80 04/12/18 08:30 Respiratory Rate 18 04/12/18 08:30 Blood Pressure 150/68 04/12/18 08:30 O2 Sat by Pulse Oximetry (%) 99 04/11/18 23:50 Constitutional: Yes: Anxious Eyes: Yes: WNL HENT: Yes: WNL Neck: Yes: WNL Respiratory: Yes: WNL Gastrointestinal: Yes: Soft Renal/: No: Anuria Cardiovascular: Yes: Regular Rate and Rhythm JVD: No Carotid Bruit: No PMI: Non-Displaced Heart Sounds: Yes: S1, S2 Musculoskeletal: Yes: Muscle Weakness Extremities: Yes: WNL Edema: No Peripheral Pulses WNL: Yes Integumentary: Yes: WNL Neurological: Yes: Alert, Oriented, Ataxia, Babinski positive, Unsteady Gait Psychiatric: Yes: Alert, Oriented, Other - Other Data Labs, Other Data: CBC, BMP 04/12/18 05:30 04/12/18 05:30 Troponin, BNP 04/11/18 04/11/18 17:00 20:45 Troponin I < 0.02 < 0.02 Troponin, BNP 04/11/18 04/11/18 17:00 20:45 Troponin I < 0.02 < 0.02 Abnormal Lab Results 04/13/18 05:30 Sodium 135 L Anion Gap 3 L Calcium 8.4 L C-Reactive Protein 0.9 H Prior Cardiac Procedures: Other (stress MIBI 2017: no ischemia) Ejection Fraction %: LVEF > or = 40 % Imaging - Results Chest X-ray: Image Reviewed EKG: Image Reviewed (normal study) Problem List - Problems (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 She has been in the ER dozens of times over the past year with the same complaints. She constantly asks not to be left alone, and asks repeatedly for reassurance. Code(s): F06.4 - ANXIETY DISORDER DUE TO KNOWN PHYSIOLOGICAL CONDITION; F41.0 - PANIC DISORDER [EPISODIC PAROXYSMAL ANXIETY] (2) Headache Code(s): R51 - HEADACHE Qualifiers: Headache type: other headache syndrome Qualified Code(s): G44.89 - Other headache syndrome (3) Weakness Code(s): R53.1 - WEAKNESS (4) HTN (hypertension) Assessment/Plan: Previous ECHO notes normal LVEF. Code(s): I10 - ESSENTIAL (PRIMARY) HYPERTENSION Qualifiers: Hypertension type: essential hypertension Qualified Code(s): I10 - Essential (primary) hypertension (5) Atypical chest pain Assessment/Plan: Pain is predominately in left breast; pt cries out with even mild palpation there. Small abrasion noted on skin. F/u breast evaluation (?had mammogram). TNI < 0.02; f/u serially. Stress MIBI 05/2017: no ischemia; EKG WNL. ECHO for LVEF, wall motion. Code(s): R07.89 - OTHER CHEST PAIN
--- NOTE | 2018-04-12 12:16 | CON.NEURO ---
Consult Consult Specialty:: NEUROLOGY-[facility] - History of Present Illness History of Present Illness: he patient is a 72-year-old female well-known to this ED, with a past medical history of chronic chest pain, CVA, COPD, GERD, HLD, and HTN, who presents to the ED via EMS for evaluation of left breast pain, shortness of breath, and headache. Symptoms are similar to the what she has experienced in the past. Chest pain is reproducible with palpation. New onset of ataxia noted while patient was ambulating in the ER. The patient denies any fevers, chills, nausea, vomiting, diarrhea, or abdominal pain. Denies any palpitations. Denies any dizziness, lightheadedness, or changes in strength or sensation. Poor historian, reports has had recurrent holocephalgic headaches without accompaniments x years and gait difficulty-ambs with walker since knee sx. Also reports she had a benign cranial tumor removed years ago. - Past Medical History CRUISE DIRECTOR: Yes: CVA Cardio/Vascular: Yes: HTN, Hyperlipdemia Gastrointestinal: Yes: GERD, Hiatal Hernia, Peptic Ulcer Disease Renal/: Yes: Other (hyponatremia) ...: No Psych: Yes: Anxiety, Depression Musculoskeletal: Yes: Osteoarthritis Endocrine: Yes: Diabetes Mellitus - Past Surgical History Past Surgical History: Yes: Cataract Removal (bilateral), Joint Replacement (RT KNEE) - Alcohol/Substance Use Hx Alcohol Use: No History of Substance Use: reports: None - Smoking History Smoking history: Never smoked Have you smoked in the past 12 months: No Aproximately how many cigarettes per day: 0 - Social History Usual Living Arrangement: Alone 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, 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 History of Recent Travel: No Home Medications - Allergies Allergies/Adverse Reactions: Allergies Allergy/AdvReac Type Severity Reaction Status Date / Time aspirin Allergy Severe "NERVOUS" Verified 04/11/18 15:42 morphine Allergy Severe "ANXIETY-DE Verified 04/11/18 15:42 SPERATION" - Home Medications Home Medications: Ambulatory Orders Amlodipine Besylate 5 mg PO DAILY 11/06/17 Divalproex Sodium [Depakote] 500 mg PO BID 11/06/17 Famotidine 20 mg PO BID 11/06/17 Lisinopril [Prinivil] 5 mg PO DAILY #30 tablet 11/07/17 Physical Exam-Neuro Vital Signs: Vital Signs Temperature 97.2 F L 04/12/18 05:00 Pulse Rate 80 04/12/18 08:30 Respiratory Rate 18 04/12/18 08:30 Blood Pressure 150/68 04/12/18 08:30 O2 Sat by Pulse Oximetry (%) 99 04/11/18 23:50 Labs: CBC, BMP 04/12/18 05:30 04/12/18 05:30 - Neuro Exam Level Of Consciousness: Yes: Alert, Oriented to Person, Oriented to Place Speech: Other (rapid/pressured) Mini Mental Exam: Inattentive Cranial Nerves II-XII Intact: Yes Gag: Present DTR's: 2+ Left Bicep, 2+ Right Bicep, 2+ Left Tricep, 2+ Right Tricep, 2+ Left Brachioradialis, 2+ Right Brachioradialis, 2+ Left Achilles, 2+ Right Achilles Babinski: Present (bilat upgoing toes) Response to light touch: Normal Response to pain prick: Normal Response to temperature: Normal Response to vibration: Normal Motor Strength: 5/5: Left Arm, Right Arm, Left Leg, Right Leg Gait: Other (walks with walker but without walker able to walk steadily to bathroom ) Imaging - Results Cat Scan: Report Reviewed (Left frontal craniotomy with encephalomalacia) Assessment/Plan Pt. with recurrent headaches, minimal chroniuc [id number] due to knee issues. GALLARDO plus increased tone in legs, bilat upgoing toes- need to r/o cervical myelopathy.Headaches are likley cervicogenic. Suggest: ESR, CRP, MRI Cspine Gait training/rehab. Thank you, Aury Corral MD
[2018-04-12] MEDS: LIDOCAINE 5% TOPICAL PATCH TP SCH (12:27)
[2018-04-12] MEDS: CYCLOBENZAPRINE HCL 5 MG TABLET PO SCH (15:09)
--- NOTE | 2018-04-12 15:31 | ECHO ---
Name: NANCY CERNA Exam:Adult Echocardiogram Study Date: 04/12/2018 11:00 AM Age: 72 yrs Reason For Study: Chest pain Height: 62 in Weight: 180 lb BSA: 1.8 m2 MMode/2D Measurements & Calculations Ao root diam: 3.3 cm Procedure A complete two-dimensional transthoracic echocardiogram was performed (2D, M-mode, Doppler and color flow Doppler). The study was technically difficult with many images being suboptimal in quality. Left Ventricle The left ventricular size, thickness and function are normal. The left ventricular ejection fraction is normal. Ejection Fraction = 55-60%. The left ventricular wall motion is normal. Right Ventricle The right ventricle is normal in size and function. Atria Normal left and right atrial size and function. Mitral Valve There is trace mitral regurgitation. Tricuspid Valve No tricuspid regurgitation. There was insufficient TR detected to calculate RV systolic pressure. Aortic Valve No hemodynamically significant valvular aortic stenosis. No aortic regurgitation is present. Pulmonic Valve There is no pulmonic valvular regurgitation. Great Vessels The aortic root is normal size. Pericardium/Pleura There is no pericardial effusion. Interpretation Summary The study was technically difficult with many images being suboptimal in quality. The left ventricular size, thickness and function are normal The right ventricle is normal in size and function. There is trace mitral regurgitation. MD Rich Wolf 04/12/2018 03:30 PM
--- NOTE | 2018-04-12 15:58 | PN ---
Physical Exam: SUBJECTIVE: Patient seen and examined at bedside. Anxious, expressing that her head and chest hurt. OBJECTIVE: Vital Signs Period Temp Pulse Resp BP Sys/Christensen Pulse Ox Last 24 Hr 97.2 F-98.2 F 68-89 13-18 107-160/57-82 96-99 GENERAL: In moderate distress, anxious, restless HEAD: Atraumatic/Normocephalic EYES: EOMI Sclera Clear ENT: MMM NECK: Trachea midline, full range of motion, supple. LUNGS: Decreased BS at bases . HEART: RRR nl S1S2 ABDOMEN: Obese NDNT EXTREMITIES: 2+ pulses, warm, well-perfused, no edema. NEUROLOGICAL: Ataxic gait, speech coherent, able to move all 4 extremities. PSYCH: Anxious, restless Laboratory Results - last 24 hr 04/11/18 04/11/18 04/11/18 17:00 17:00 18:31 WBC 6.1 RBC 4.37 Hgb 11.1 Hct 33.8 MCV 77.3 L MCH 25.3 L MCHC 32.8 RDW 21.4 H Plt Count 338 MPV 7.6 Absolute Neuts (auto) 4.0 Neutrophils % 65.6 Lymphocytes % 21.3 D Monocytes % 10.0 Eosinophils % 2.4 Basophils % 0.7 Nucleated RBC % 0 Platelet Estimate Adequate Platelet Comment No clumping noted Anisocytosis 2+ Microcytosis 1+ Sodium 134 L 138 Potassium 5.4 H 4.5 Chloride 105 104 Carbon Dioxide 24 28 Anion Gap 5 L 5 L BUN 11 10 Creatinine 0.6 0.7 Creat Clearance w eGFR > 60 > 60 Random Glucose 125 H 115 H Calcium 8.8 8.9 Total Bilirubin 0.4 0.3 AST 50 H 30 ALT 37 36 Alkaline Phosphatase 190 H 195 H Creatine Kinase 131 Troponin I < 0.02 Total Protein 7.6 7.6 Albumin 3.5 3.6 Triglycerides Cholesterol Total LDL Cholesterol HDL Cholesterol Acetaminophen < 2 L 04/11/18 04/11/18 04/11/18 20:45 20:45 20:45 WBC 4.9 RBC 4.07 Hgb 10.2 L Hct 31.4 L MCV 77.3 L MCH 25.1 L MCHC 32.5 RDW 21.5 H Plt Count 313 MPV 7.2 L Absolute Neuts (auto) 3.0 Neutrophils % 61.9 Lymphocytes % 20.2 Monocytes % 13.6 H Eosinophils % 3.7 Basophils % 0.6 Nucleated RBC % 0 Platelet Estimate Platelet Comment Anisocytosis Microcytosis Sodium 136 Potassium 4.1 Chloride 105 Carbon Dioxide 26 Anion Gap 5 L BUN 12 Creatinine 0.7 Creat Clearance w eGFR > 60 Random Glucose 131 H Calcium 8.8 Total Bilirubin 0.2 AST 24 ALT 33 Alkaline Phosphatase 172 H Creatine Kinase 81 Troponin I < 0.02 Total Protein 6.8 Albumin 3.3 L Triglycerides Cholesterol Total LDL Cholesterol HDL Cholesterol Acetaminophen 8.8 L 04/12/18 04/12/18 04/12/18 05:30 05:30 05:30 WBC 5.0 RBC 4.19 Hgb 10.3 L Hct 32.2 L MCV 76.7 L MCH 24.7 L MCHC 32.2 RDW 22.2 H Plt Count 322 MPV 7.7 Absolute Neuts (auto) 3.0 Neutrophils % 59.6 Lymphocytes % 23.2 Monocytes % 12.5 H Eosinophils % 4.0 Basophils % 0.7 Nucleated RBC % 0 Platelet Estimate Platelet Comment Anisocytosis Microcytosis Sodium 135 L Potassium 4.5 Chloride 103 Carbon Dioxide 25 Anion Gap 7 L BUN 13 Creatinine 0.6 Creat Clearance w eGFR > 60 Random Glucose 105 Calcium 8.7 Total Bilirubin 0.4 AST 30 ALT 33 Alkaline Phosphatase 156 H Creatine Kinase Troponin I Total Protein 6.8 Albumin 3.3 L Triglycerides 174 H Cancelled Cholesterol 179 Cancelled Total LDL Cholesterol 78 Cancelled HDL Cholesterol 76 H Cancelled Acetaminophen Active Medications Generic Name Dose Route Start Last Admin Trade Name Freq PRN Reason Stop Dose Admin Acetaminophen 650 mg 04/11/18 20:06 04/12/18 12:27 Tylenol - PO 650 mg Q6H PRN Administration PAIN LEVEL 6-10 Amlodipine Besylate 5 mg 04/12/18 10:00 04/12/18 09:31 Norvasc - PO 5 mg DAILY KATHERINE Administration Cyclobenzaprine HCl 5 mg 04/12/18 14:00 04/12/18 15:09 Cyclobenzaprine Hcl PO 5 mg TID KATHERINE Administration Divalproex Sodium 500 mg 04/12/18 10:00 04/12/18 09:31 Depakote - PO 500 mg BID KATHERINE Administration Enoxaparin Sodium 40 mg 04/12/18 10:00 04/12/18 09:31 Lovenox - SQ 40 mg DAILY KATHERINE Administration Lidocaine 1 patch 04/12/18 11:00 04/12/18 12:27 Lidoderm Patch - TP 1 patch DAILY KATHERINE Administration Lisinopril 5 mg 04/12/18 10:00 04/12/18 09:30 Prinivil PO 5 mg DAILY KATHERINE Administration Miscellaneous 1 each 04/12/18 22:00 Lidoderm Patch Removal MC DAILY@2200 KATHERINE Ranitidine HCl 150 mg 04/12/18 10:00 04/12/18 09:31 Zantac - PO 150 mg BID KATHERINE Administration ASSESSMENT/PLAN: 72F w/ pmhx of HTN, CVA, HLD, HTN, chronic hyponatremia, Anxiety, Meningioma s/ p removal (1999), COPD presented to the ED with chronic chest pain admitted to r /o ACS. #Chest pain; r/o ACS -atypical chest pain. EKG showed NSR, HR 83, QTc 444 ms, no ST-T changes. Trops neg x2 -admit to tele -Echo ---> Trace mitral regurg. nl EF -Tylenol 650 Q6H PO for pain #? Ataxic gait -No acute pathology on head CT seen -There were no changes in gait upon exam. At baseline, she uses a walker. -Dr Corral on board----> GALLARDO plus increased tone in legs, bilat upgoing toes- need to r/o cervical myelopathy.Headaches are likley cervicogenic. Suggests ESR , CRP, MRI C spine Gait training/rehab. -Orthostatics: sitting- 134/105, HR 107; standing- 145/85, HR 92 #Anxiety Per pharmacy records, pt on Remeron and Quetiapine. Prescriptions refilled April and May of 2017 respectively per [facility] records. #DM -Hold home DM meds -BGM/ISS ACHS #HTN -Cont home meds: Norvasc 5 QD, Lisinopril 5 QD #Hx of Seizure d/o -Cont home meds: Depakote 500 BID #Prophylaxis -Lovenox 40 QD Famotidine 20 BID #FEN -PO hydration -recheck lytes in AM -Sodium-controlled diet dispo -admit to tele obs -full code Visit type - Emergency Visit Emergency Visit: Yes ED Registration Date: 04/11/18 Care time: The patient presented to the Emergency Department on the above date and was hospitalized for further evaluation of their emergent condition. - New Patient This patient is new to me today: No - Critical Care Critical Care patient: No - Discharge Referral Referred to [facility] No
[2018-04-12] MEDS ORDERED: ALPRAZolam 0.25 MG TABLET PO ONE (16:46)
[2018-04-12] MEDS ORDERED: MIRTAZAPINE 15 MG TABLET (FP) PO ONE (16:51)
--- NOTE | 2018-04-12 16:54 | EKG ---
Test Reason : Blood Pressure : / mmHG Vent. Rate : 083 BPM Atrial Rate : 083 BPM P-R Int : 150 ms QRS Dur : 074 ms QT Int : 378 ms P-R-T Axes : 043 000 035 degrees QTc Int : 444 ms NORMAL SINUS RHYTHM NORMAL ECG WHEN COMPARED WITH ECG OF 06-APR-2018 07:49, NO SIGNIFICANT CHANGE WAS FOUND Confirmed by TERENCE GARCIA MD ([id number]) on 04/12/2018 4:54:16 PM Referred By: Confirmed By:TERENCE GARCIA MD
[2018-04-12] MEDS: LIDOCAINE PATCH REMOVAL MC SCH (21:22)
[2018-04-12] MEDS ORDERED: FAMOTIDINE 20 MG/50 ML IVPB 20 MG/50 ML MG IVPB SCH (22:00)
[2018-04-13] MEDS: ACETAMINOPHEN 325 MG TABLET (FP) PO PRN ×4 (02:23→22:00)
[2018-04-13] MEDS: CYCLOBENZAPRINE HCL 5 MG TABLET PO SCH ×3 (02:29→14:44)
[2018-04-13] MEDS: DIVALPROEX SODIUM 500 MG TABLET E.C. PO SCH ×3 (02:29→22:00)
[2018-04-13] MEDS ORDERED: LORazepam 2 MG/ML SDV VIAL IVPUSH ONE (02:45)
[2018-04-13] MEDS ORDERED: PT OWN MED DRAWER 7, Y5N ONE ×3 (02:52→21:59)
[2018-04-13 06:07] LABS: HEMATOCRIT 31.1 % (32.4-45.2); MCH 24.8 pg (25.7-33.7); MCHC 32.1 g/dl (32.0-36.0); MEAN CELL VOLUME 77.2 fl (80-96); MEAN PLT VOLUME 7.4 fl (7.5-11.1); PLATELET COUNT 307 K/MM3 (134-434); RBC 4.03 M/mm3 (3.60-5.2); RDW 21.5 % (11.6-15.6); WHITE BLOOD COUNT 5.3 K/mm3 (4.0-10.0)
[2018-04-13 07:33] LABS: GLUCOSE,RANDOM 99 mg/dL (74-106)
[2018-04-13 07:34] LABS: ANION GAP 3 MMOL/L (8-16); BLOOD UREA NITROGEN 16 mg/dL (7-18); CALCIUM 8.4 mg/dL (8.5-10.1); CHLORIDE 103 mmol/L (98-107); CO2 29 mmol/L (21-32); CREATININE 0.7 mg/dL (0.55-1.3); MAGNESIUM 2.4 mg/dL (1.8-2.4); POTASSIUM 4.9 mmol/L (3.5-5.1); SODIUM 135 mmol/L (136-145)
[2018-04-13] MEDS: RANITIDINE HCL 150 MG TABLET (FP) PO SCH ×2 (09:04→22:00)
[2018-04-13] MEDS: LISINOPRIL 5 MG TABLET (FP) PO SCH (09:04)
[2018-04-13] MEDS: ENOXAPARIN NA (PORCINE) 40 MG/0.4 ML DISP.SYRIN SQ SCH (09:04)
[2018-04-13] MEDS: metoPROLOL SUCCINATE 25 MG TAB.SR.24H (FP) PO SCH (09:04)
[2018-04-13] MEDS: QUEtiapine FUMARATE 25 MG TABLET (FP) PO SCH (09:04)
[2018-04-13] MEDS: amLODIPine BESYLATE 5 MG TABLET (FP) PO SCH (09:04)
[2018-04-13] MEDS: LIDOCAINE 5% TOPICAL PATCH TP SCH (09:05)
[2018-04-13] MEDS: ALPRAZolam 0.25 MG TABLET PO PRN ×2 (09:10→15:00)
[2018-04-13] MEDS ORDERED: ESCITALOPRAM OXALATE 10 MG TABLET (FP) PO SCH (10:00)
--- NOTE | 2018-04-13 14:25 | PN ---
Teaching Attending Note Name of Resident: Jenaro Wilson ATTENDING PHYSICIAN STATEMENT I saw and evaluated the patient. I reviewed the resident's note and discussed the case with the resident. I agree with the resident's findings and plan as documented. SUBJECTIVE: Patient is lying in bed comfortable with no acute distress. No further chest pain. OBJECTIVE: Vital Signs Temperature 98.5 F 04/13/18 14:12 Pulse Rate 77 04/13/18 14:12 Respiratory Rate 16 04/13/18 14:12 Blood Pressure 100/56 L 04/13/18 14:12 O2 Sat by Pulse Oximetry (%) 96 04/13/18 08:53 GENERAL: Awake, alert, and fully oriented, in no acute distress. HEAD: Normal with no signs of trauma. EYES: Pupils equal, round and reactive to light, extraocular movements intact, sclera anicteric, conjunctiva clear. EARS, NOSE, THROAT: Ears normal, oropharynx clear without exudates. Moist mucous membranes. NECK:positive for neck tenderness on the pressure points. Normal range of motion , supple without lymphadenopathy, JVD, or masses. LUNGS: Breath sounds equal, clear to auscultation bilaterally. No wheezes, and no crackles. No accessory muscle use. HEART: Regular rate and rhythm, normal S1 and S2 without murmur, rub or gallop. ABDOMEN: Soft, obese, nontender, ND, normoactive bowel sounds, no guarding, no rebound, no masses. MUSCULOSKELETAL: Normal range of motion at all joints. No bony deformities or tenderness. No CVA tenderness. EXTREMITIES: 2+ pulses, warm, well-perfused. No cyanosis. No clubbing. No peripheral edema. NEUROLOGICAL: Cranial nerves II-XII intact. Normal speech. Normal gait. PSYCHIATRIC: Cooperative. Good eye contact. Appropriate mood and affect. SKIN: Warm, dry, normal turgor, no rashes or lesions noted, normal capillary refill. CBCD WBC 5.3 K/mm3 (4.0-10.0) 04/13/18 05:30 RBC 4.03 M/mm3 (3.60-5.2) 04/13/18 05:30 Hgb 10.0 GM/dL (10.7-15.3) L 04/13/18 05:30 Hct 31.1 % (32.4-45.2) L 04/13/18 05:30 MCV 77.2 fl (80-96) L 04/13/18 05:30 MCHC 32.1 g/dl (32.0-36.0) 04/13/18 05:30 RDW 21.5 % (11.6-15.6) H 04/13/18 05:30 Plt Count 307 K/MM3 (134-434) 04/13/18 05:30 MPV 7.4 fl (7.5-11.1) L 04/13/18 05:30 CMP Sodium 135 mmol/L (136-145) L 04/13/18 05:30 Potassium 4.9 mmol/L (3.5-5.1) 04/13/18 05:30 Chloride 103 mmol/L (98-107) 04/13/18 05:30 Carbon Dioxide 29 mmol/L (21-32) 04/13/18 05:30 Anion Gap 3 MMOL/L (8-16) L 04/13/18 05:30 BUN 16 mg/dL (7-18) 04/13/18 05:30 Creatinine 0.7 mg/dL (0.55-1.3) 04/13/18 05:30 Creat Clearance w eGFR > 60 (>60) 04/13/18 05:30 Random Glucose 99 mg/dL (74-106) 04/13/18 05:30 Calcium 8.4 mg/dL (8.5-10.1) L 04/13/18 05:30 Total Bilirubin 0.4 mg/dL (0.2-1) 04/12/18 05:30 AST 30 U/L (15-37) 04/12/18 05:30 ALT 33 U/L (13-61) 04/12/18 05:30 Alkaline Phosphatase 156 U/L (45-117) H 04/12/18 05:30 Total Protein 6.8 g/dl (6.4-8.2) 04/12/18 05:30 Albumin 3.3 g/dl (3.4-5.0) L 04/12/18 05:30 CARDIAC ENZYMES Creatine Kinase 81 U/L (26-192) 04/11/18 20:45 Troponin I < 0.02 ng/ml (0.00-0.05) 04/11/18 20:45 Current Medications Generic Name Dose Route Start Last Admin Trade Name Freq PRN Reason Stop Dose Admin Acetaminophen 650 mg 04/11/18 20:06 04/13/18 08:13 Tylenol - PO 650 mg Q6H PRN Administration PAIN LEVEL 6-10 Alprazolam 0.25 mg 04/13/18 08:42 04/13/18 09:10 Xanax - PO 0.25 mg Q6H PRN Administration ANXIETY Amlodipine Besylate 5 mg 04/12/18 10:00 04/13/18 09:04 Norvasc - PO 5 mg DAILY KATHERINE Administration Cyclobenzaprine HCl 5 mg 04/12/18 14:00 04/13/18 06:51 Cyclobenzaprine Hcl PO Not Given TID [facility] Divalproex Sodium 500 mg 04/12/18 10:00 04/13/18 09:06 Depakote - PO Not Given BID [facility] Enoxaparin Sodium 40 mg 04/12/18 10:00 04/13/18 09:04 Lovenox - SQ 40 mg DAILY [facility] Administration Lidocaine 1 patch 04/12/18 11:00 04/13/18 09:05 Lidoderm Patch - TP 1 patch DAILY [facility] Administration Lisinopril 5 mg 04/12/18 10:00 04/13/18 09:04 Prinivil PO 5 mg DAILY [facility] Administration Metoprolol Succinate 25 mg 04/13/18 10:00 04/13/18 09:04 Toprol Xl - PO 25 mg DAILY KATHERINE Administration Miscellaneous 1 each 04/12/18 22:00 04/12/18 21:22 Lidoderm Patch Removal MC Not Given DAILY@2200 [facility] Quetiapine Fumarate 25 mg 04/13/18 10:00 04/13/18 09:04 Seroquel - PO 25 mg DAILY KATHERINE Administration Ranitidine HCl 150 mg 04/12/18 10:00 04/13/18 09:04 Zantac - PO 150 mg BID KATHERINE Administration Home Medications Medication Instructions Recorded Amlodipine Besylate 5 mg PO DAILY 11/06/17 Divalproex Sodium [Depakote] 500 mg PO BID 11/06/17 Famotidine 20 mg PO BID 11/06/17 Lisinopril [Prinivil] 5 mg PO DAILY #30 tablet 11/07/17 Escitalopram Oxalate [Lexapro -] 20 mg PO DAILY #30 tablet 04/13/18 Metoprolol Succinate [Toprol XL -] 25 mg PO DAILY tab.sr.24h 04/13/18 Laboratory Tests 04/11/18 04/11/18 17:00 20:45 Troponin I < 0.[address]: neg for acute IC pathology EKG: NSR, HR 83, QTc 444 ms, no ST-T changes. ASSESSMENT AND PLAN: Patient is 72yo with pmhx of HTN, CVA, HLD, HTN, chronic hyponatremia, COPD presented to the ED with chronic chest pain admitted to r/o ACS. # Psych.hx : anxiety /panic attack disorder; on Lexapro 10mg at home will increase it to 20mg po qhs, DISCUSSED WITH AGREES WITH THE PLAN. #Acute chest pain , acs is ruled out , Atypical chest pain reproducable, 2 sets of troponin are negative. EKG showed NSR, HR 83, QTc 444 ms, no ST-T changes. Echo ordered follow the result, Tylenol 650 Q6H PO for pain. as per patient had a recent cardiac w/u with negative result. #Headaches are likely due to cervical neck tenderness. improving, fOLLOW WITH dR. Gil # Ataxic gait, Neuro consult appreciated , need Gait training/rehab, FOLLOW WITH FOR FURTHER CARE. #HTN: continue home meds. #Hx of Seizure cont home meds: Depakote 500 BID DVT Px: Lovenox 40 QD GI Px: Famotidine 20 BID
--- NOTE | 2018-04-13 14:49 | DS ---
Physical Exam: SUBJECTIVE: Patient seen and examined OBJECTIVE: Vital Signs Period Temp Pulse Resp BP Sys/Christensen Pulse Ox Last 24 Hr 98.4 F-99.3 F 64-86 11-18 96-146/50-86 96-97 PHYSICAL EXAM GENERAL: The patient is awake, alert, and fully oriented, in no acute distress. HEAD: Normal with no signs of trauma. EYES: PERRL, extraocular movements intact, sclera anicteric, conjunctiva clear. ENT: Ears normal, nares patent, oropharynx clear without exudates, moist mucous membranes. NECK: Trachea midline, full range of motion, supple. LUNGS: Breath sounds equal, clear to auscultation bilaterally, no wheezes, no crackles, no accessory muscle use. HEART: Regular rate and rhythm, S1, S2 without murmur, rub or gallop. ABDOMEN: Soft, nontender, nondistended, normoactive bowel sounds, no guarding, no rebound, no hepatosplenomegaly, no masses. EXTREMITIES: 2+ pulses, warm, well-perfused, no edema. NEUROLOGICAL: Cranial nerves II through XII grossly intact. Normal speech, gait not observed. PSYCH: Normal mood, normal affect. SKIN: Warm, dry, normal turgor, no rashes or lesions noted. LABS Laboratory Results - last 24 hr 04/13/18 04/13/18 04/13/18 05:30 05:30 05:30 WBC 5.3 RBC 4.03 Hgb 10.0 L Hct 31.1 L MCV 77.2 L MCH 24.8 L MCHC 32.1 RDW 21.5 H Plt Count 307 MPV 7.4 L ESR 25 Sodium 135 L Potassium 4.9 Chloride 103 Carbon Dioxide 29 Anion Gap 3 L BUN 16 Creatinine 0.7 Creat Clearance w eGFR > 60 Random Glucose 99 Calcium 8.4 L Phosphorus 4.0 Magnesium 2.4 C-Reactive Protein 0.9 H Vitamin B12 381 Serum Folate 16 TSH 0.60 Free T4 0.97 HOSPITAL COURSE: Date of Admission:04/11/18 Date of Discharge: 04/13/18 Discharge Summary Reason For Visit: CHEST PAIN Current Active Problems Chest pain (Acute) Chest wall pain, chronic (Acute) Pain (Acute) Condition: Improved - Instructions Diet, Activity, Other Instructions: You presented to the hospital due to chest pain. Please continue to take the following medications below as was previously prescribed to you: -Mirtazapine 15 MG PO at NIGHT Once per day -Lexapro has been increased to 20 MG daily. Please take this once per day -Seroquel 25 MG Tab once per day Please continue to take your home medications as previously prescribed. Please follow up this week with your primary care doctor, Dr Mabry in 1 week. Please follow up with the Psychiatrist, Dr Ni Please follow up with the Dope House Operator Helper Dr Vargas in 3 weeks. Please follow up with the Neurologist, Dr Corral. The neurologist recommends you undergo an MRI of your cervical region of the spine. Please follow up with him at discharge. Please Return to Emergency department if you begin to experience any chest pain , shortness of breath, nausea/vomiting or any worsening of your symptoms/ Referrals: Taylor Ni MD [Staff Physician] - 1 Week Wlado Mabry MD [Primary Care Provider] - 1 Week Tung Corral MD [Staff Physician] - 1 Week Shyam Vargas MD [Staff Physician] - 3 Weeks Disposition: HOME - Home Medications Comprehensive Discharge Medication List: Ambulatory Orders Amlodipine Besylate 5 mg PO DAILY 11/06/17 Divalproex Sodium [Depakote] 500 mg PO BID 11/06/17 Famotidine 20 mg PO BID 11/06/17 Lisinopril [Prinivil] 5 mg PO DAILY #30 tablet 11/07/17 Escitalopram Oxalate [Lexapro -] 20 mg PO DAILY #30 tablet 04/13/18 Metoprolol Succinate [Toprol Xl] 04/13/18 Mirtazapine 15 mg PO HS 04/13/18 Quetiapine Fumarate [Seroquel -] 25 mg PO 04/13/18 - Discharge Referral Referred to [facility].: No
--- NOTE | 2018-04-13 18:09 | PN ---
Mental Health Exam - Mental Status Exam Alert and Oriented to: Time (NOT ORIENTATED. ), Place Cognitive Function: Impaired Patient Appearance: Disheveled (OBESE) Mood: Fearful, Anxious, Apprehensive, Expansive Affect: Appropriate Patient Behavior: Talkative, Cooperative Speech Pattern: Clear, Tangential (SPOKE IN [place]) Voice Loudness: Normal Thought Process: Intact, Goal Oriented, Disoriented Thought Disorder: Not Present Hallucinations: None Suicidal Ideation: None Homicidal Ideation: None Insight/Judgement: Fair Sleep: Fair Appetite: Fair Muscle strength/Tone: Mild Hypertonicity Gait/Station: Deferred (mET PATIENT BY BEDSIDE, UP IN CHAIR, LOOKIN OUT WINDOW, BED 10 ON TELEMENTARY UNIT. rN ADMINISTERED TYLENOL WHILE VIDEO SURVEILLANCE TECHNICIAN PRESENT SHE CO HEADACHE. ALSO SPOKE WITH RESIDENT Kath Bourne.)
--- NOTE | 2018-04-13 18:14 | DS ---
Physical Exam: SUBJECTIVE: Patient seen and examined at bedside. Very anxious, expressing that her head and chest hurt. OBJECTIVE: Vital Signs Period Temp Pulse Resp BP Sys/Christensen Pulse Ox Last 24 Hr 98.4 F-98.5 F 64-78 11-18 96-146/50-79 96-97 PHYSICAL EXAM GENERAL: Anxious, mild distress HEAD: ANC/AT EYES: EOMI Sclera Clear ENT: MMM NECK: Trachea midline, full range of motion, supple. LUNGS: Decreased BS at bases . HEART: RRR nl S1S2 CHEST: Tenderness to palpation left breast. ABDOMEN: Obese NDNT EXTREMITIES: 2+ pulses, warm, well-perfused, no edema. NEUROLOGICAL: No slurred speech appreciated. Moves all 4 extremities freely. PSYCH: Anxious, restless LABS Laboratory Results - last 24 hr 04/13/18 04/13/18 04/13/18 05:30 05:30 05:30 WBC 5.3 RBC 4.03 Hgb 10.0 L Hct 31.1 L MCV 77.2 L MCH 24.8 L MCHC 32.1 RDW 21.5 H Plt Count 307 MPV 7.4 L ESR 25 Sodium 135 L Potassium 4.9 Chloride 103 Carbon Dioxide 29 Anion Gap 3 L BUN 16 Creatinine 0.7 Creat Clearance w eGFR > 60 Random Glucose 99 Calcium 8.4 L Phosphorus 4.0 Magnesium 2.4 C-Reactive Protein 0.9 H Vitamin B12 381 Serum Folate 16 TSH 0.60 Free T4 0.97 HOSPITAL COURSE: Date of Admission:04/11/18 Pt is a 5 y/o 4F w/ a pmhx of HTN, CVA, HLD, HTN, chronic hyponatremia, Anxiety , Meningioma s/p removal (1999), COPD presented to the ED with chronic chest pain admitted to r/o ACS. Pt's EKG was unremarkable sinus at 83, nl axis, nl interval, no acute st/t wave findings. Troponin was negative x2 (< 0.02, < 0.02) . Pt's also underwent Head CT which did not reveal any acute bleeds or ischemia , please see report for details. Due to patient's ataxic gait as observed in ED , pt was admitted to telemetry unit. Pt also c/o a headache and was treated with tylenol. Pt was very anxious during her stay and was given Xanax 0.25 mg PRN Q6H. Pt was evaluated by Psychiatry, Neurology, and Cardiology. Neurology believed pt's symptoms of headache combined with slight ataxia and + b/l babinksi reflexes may have been due to cervical myopathy and recommended cervical MRI. Cardiology had a very low index of suspicion that etiology of pt' s chest pain was cardiac. Pt was to be discharged earlier today however pt was noted to be dizzy and at an increased fall risk. DC delayed to later today or early tomorrow. Date of Discharge: 04/13/18 Minutes to complete discharge: 35 Discharge Summary Reason For Visit: CHEST PAIN Current Active Problems Chest pain (Acute) Chest wall pain, chronic (Acute) Pain (Acute) Condition: Improved - Instructions Diet, Activity, Other Instructions: You presented to the hospital due to chest pain. Please continue to take the following medications below as was previously prescribed to you: -Mirtazapine 15 MG PO at NIGHT Once per day -Lexapro has been increased to 20 MG daily. Please take this once per day -Seroquel 25 MG Tab once per day Please continue to take your home medications as previously prescribed. Please follow up this week with your primary care doctor, Dr Mabry in 1 week. Please follow up with the Psychiatrist, Dr Ni Please follow up with the Refining Equipment Operator Dr Vargas in 3 weeks. Please follow up with the Neurologist, Dr Corral. The neurologist recommends you undergo an MRI of your cervical region of the spine. Please follow up with him at discharge. Please Return to Emergency department if you begin to experience any chest pain , shortness of breath, nausea/vomiting or any worsening of your symptoms/ Referrals: Taylor Ni MD [Staff Physician] - 1 Week Waldo Mabry MD [Primary Care Provider] - 1 Week Tung Corral MD [Staff Physician] - 1 Week Shyam Vargas MD [Staff Physician] - 3 Weeks Disposition: HOME - Home Medications Comprehensive Discharge Medication List: Ambulatory Orders Amlodipine Besylate 5 mg PO DAILY 11/06/17 Divalproex Sodium [Depakote] 500 mg PO BID 11/06/17 Famotidine 20 mg PO BID 11/06/17 Lisinopril [Prinivil] 5 mg PO DAILY #30 tablet 11/07/17 Escitalopram Oxalate [Lexapro -] 20 mg PO DAILY #30 tablet 04/13/18 Metoprolol Succinate [Toprol Xl] 04/13/18 Mirtazapine 15 mg PO HS 04/13/18 Quetiapine Fumarate [Seroquel -] 25 mg PO 04/13/18 This patient is new to me today: No Emergency Visit: Yes ED Registration Date: 04/11/18 Care time: The patient presented to the Emergency Department on the above date and was hospitalized for further evaluation of their emergent condition. Critical Care patient: No - Discharge Referral Referred to [facility] Med P.C.: No
--- NOTE | 2018-04-13 18:24 | PN ---
Progress Note (short form) - Note Progress Note: mS Mora IS 72 YO FEMALE WITH A HISTORY OF htn, cva, hYPONATRAEMIA, copd PRESENTED WITH CHEST PAIN. CLIENT DISCHARGE IS CANCELLED TODAY, DUE TO DIZZINESS. cLIENT IS ON DEPAKOTE 500MG PO BID, XANAX 0.25 PO PRN, SEROQUEL 25MG PO DAILY. READ AND REVIEW PREVIOUS NOTES. AFTER CONSIDERATION, WITH HYPONATRAEMIA, AGE, htn, FRAILTY, NO MORE THAN 10MG OF lEXAPRO IS RECOMMENDED AT THIS TIME. PATIENT IS ALSO ON REMERON, THAT AFFECT SIMULAR NEURO TRANSMITTORS. ORE PRONE O SEROTONIN SYNDROME ALSO.
[2018-04-13] MEDS: LIDOCAINE PATCH REMOVAL MC SCH (21:57)
[2018-04-13] MEDS ORDERED: ACETAMINOPHEN 325 MG TABLET (FP) PO ONE (22:50)
--- NOTE | 2018-04-14 06:41 | PN ---
Progress Note, Physician Chief Complaint: Pt alert; no chest wall pain; still with left breast pain. History of Present Illness: The patient is a 72-year-old female well-known to this ED, with a past medical history of anxiety/depression/panic, chronic chest pain, CVA s/p craniotomy for ?benign tumor, COPD, GERD, HLD, and HTN, who presents to the ED via EMS for evaluation of left breast pain, shortness of breath, and headache. Symptoms are similar to the what she has experienced in the past. Chest pain is reproducible with palpation of left breast. New onset of ataxia noted while patient was ambulating in the ER. The patient denies any fevers, chills, nausea, vomiting, diarrhea, or abdominal pain. Denies any palpitations. Denies any dizziness, lightheadedness, or changes in strength or sensation. PMD: Dr. Mabry. Stress MIBI 05/2017 negative for ischemia. - Current Medication List Current Medications: Active Medications Acetaminophen (Tylenol -) 650 mg PO Q6H PRN PRN Reason: PAIN LEVEL 6-10 Last Admin: 04/13/18 22:00 Dose: 650 mg Alprazolam (Xanax -) 0.25 mg PO Q6H PRN PRN Reason: ANXIETY Last Admin: 04/13/18 15:00 Dose: 0.25 mg Amlodipine Besylate (Norvasc -) 5 mg PO DAILY [facility] Last Admin: 04/13/18 09:04 Dose: 5 mg Divalproex Sodium (Depakote -) 500 mg PO BID [facility] Last Admin: 04/13/18 22:00 Dose: 500 mg Enoxaparin Sodium (Lovenox -) 40 mg SQ DAILY [facility] Last Admin: 04/13/18 09:04 Dose: 40 mg Lidocaine (Lidoderm Patch -) 1 patch TP DAILY [facility] Last Admin: 04/13/18 09:05 Dose: 1 patch Lisinopril (Prinivil) 5 mg PO DAILY [facility] Last Admin: 04/13/18 09:04 Dose: 5 mg Metoprolol Succinate (Toprol Xl -) 25 mg PO DAILY [facility] Last Admin: 04/13/18 09:04 Dose: 25 mg Miscellaneous (Lidoderm Patch Removal) 1 each MC DAILY@2200 [facility] Last Admin: 04/13/18 21:57 Dose: Not Given Quetiapine Fumarate (Seroquel -) 25 mg PO DAILY [facility] Last Admin: 04/13/18 09:04 Dose: 25 mg Ranitidine HCl (Zantac -) 150 mg PO BID [facility] Last Admin: 04/13/18 22:00 Dose: 150 mg - Objective Vital Signs: Vital Signs Temperature 98.4 F 04/13/18 18:00 Pulse Rate 102 H 04/13/18 22:00 Respiratory Rate 16 04/13/18 22:00 Blood Pressure 98/68 04/13/18 22:00 O2 Sat by Pulse Oximetry (%) 100 04/13/18 20:51 Constitutional: Yes: Anxious Eyes: Yes: WNL HENT: Yes: WNL Neck: Yes: WNL Cardiovascular: Yes: WNL Respiratory: Yes: WNL Gastrointestinal: Yes: Soft ...Rectal Exam: Yes: Deferred Genitourinary: No: Anuria Breast(s): Yes: WNL Musculoskeletal: Yes: Joint Stiffness, Muscle Weakness Extremities: Yes: WNL Edema: No Peripheral Pulses WNL: Yes Integumentary: Yes: WNL Neurological: Yes: Alert, Oriented, Unsteady Gait Psychiatric: Yes: Other Labs: CBC, BMP 04/13/18 05:30 04/13/18 05:30 Current Medications Acetaminophen (Tylenol -) 650 mg PO Q6H PRN PRN Reason: PAIN LEVEL 6-10 Last Admin: 04/13/18 22:00 Dose: 650 mg Alprazolam (Xanax -) 0.25 mg PO Q6H PRN PRN Reason: ANXIETY Last Admin: 04/13/18 15:00 Dose: 0.25 mg Amlodipine Besylate (Norvasc -) 5 mg PO DAILY [facility] Last Admin: 04/13/18 09:04 Dose: 5 mg Divalproex Sodium (Depakote -) 500 mg PO BID [facility] Last Admin: 04/13/18 22:00 Dose: 500 mg Enoxaparin Sodium (Lovenox -) 40 mg SQ DAILY [facility] Last Admin: 04/13/18 09:04 Dose: 40 mg Lidocaine (Lidoderm Patch -) 1 patch TP DAILY [facility] Last Admin: 04/13/18 09:05 Dose: 1 patch Lisinopril (Prinivil) 5 mg PO DAILY [facility] Last Admin: 04/13/18 09:04 Dose: 5 mg Metoprolol Succinate (Toprol Xl -) 25 mg PO DAILY [facility] Last Admin: 04/13/18 09:04 Dose: 25 mg Miscellaneous (Lidoderm Patch Removal) 1 each MC DAILY@2200 [facility] Last Admin: 04/13/18 21:57 Dose: Not Given Quetiapine Fumarate (Seroquel -) 25 mg PO DAILY [facility] Last Admin: 04/13/18 09:04 Dose: 25 mg Ranitidine HCl (Zantac -) 150 mg PO BID [facility] Last Admin: 04/13/18 22:00 Dose: 150 mg - ....Imaging Other: Image Reviewed (telemetry: sinus rhythm; no arrhythmias) Problem List - Problems (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 She has been in the ER dozens of times over the past year with the same complaints. She constantly asks not to be left alone, and asks repeatedly for reassurance. On Seroquel; less anxiious yesterday in afternoon after benzodiazepine, per RN, though agitated again in photostatic copy maker with questionable response to anxiolytic at that time. Code(s): F06.4 - ANXIETY DISORDER DUE TO KNOWN PHYSIOLOGICAL CONDITION; F41.0 - PANIC DISORDER [EPISODIC PAROXYSMAL ANXIETY] (2) Headache Assessment/Plan: chronic; f/u with neurologist. Hx craniotomy for ?benign tumor. Uses a walker because shes says "I might fall". Code(s): R51 - HEADACHE Qualifiers: Headache type: other headache syndrome Qualified Code(s): G44.89 - Other headache syndrome (3) Weakness Code(s): R53.1 - WEAKNESS (4) HTN (hypertension) Assessment/Plan: On multiple medications; initial presentation with elevated BP while highly anxious, but now with borderline values. F/u BP serially; would consider decreasing dosages or eliminating some med(s), given hx ataxia, vertigo with present BP values. Code(s): I10 - ESSENTIAL (PRIMARY) HYPERTENSION Qualifiers: Hypertension type: essential hypertension Qualified Code(s): I10 - Essential (primary) hypertension (5) Atypical chest pain Assessment/Plan: Pain is predominately in left breast; pt cries out with even mild palpation there. Small abrasion noted on skin. F/u breast evaluation (?had mammogram). TNI < 0.02 x 2. Stress MIBI 05/2017: no ischemia; EKG WNL. ECHO: normal LVEF. Code(s): R07.89 - OTHER CHEST PAIN
--- NOTE | 2018-04-14 07:51 | PN ---
Progress Note (short form) - Note Progress Note: Chief Complaint: Events noted, notes reviewed, lethargic but arousable, complaining of persistent left sided chest discomfort and headache History of Present Illness: Seen and examined on telemetry. Events noted, notes reviewed, lethargic but arousable, complaining of persistent left sided chest discomfort and headache - Current Medication List Current Medications: Current Medications Acetaminophen (Tylenol -) 650 mg PO Q6H PRN PRN Reason: PAIN LEVEL 6-10 Last Admin: 04/13/18 22:00 Dose: 650 mg Alprazolam (Xanax -) 0.25 mg PO Q6H PRN PRN Reason: ANXIETY Last Admin: 04/13/18 15:00 Dose: 0.25 mg Amlodipine Besylate (Norvasc -) 5 mg PO DAILY [facility] Last Admin: 04/13/18 09:04 Dose: 5 mg Divalproex Sodium (Depakote -) 500 mg PO BID [facility] Last Admin: 04/13/18 22:00 Dose: 500 mg Enoxaparin Sodium (Lovenox -) 40 mg SQ DAILY [facility] Last Admin: 04/13/18 09:04 Dose: 40 mg Lidocaine (Lidoderm Patch -) 1 patch TP DAILY [facility] Last Admin: 04/13/18 09:05 Dose: 1 patch Lisinopril (Prinivil) 5 mg PO DAILY [facility] Last Admin: 04/13/18 09:04 Dose: 5 mg Metoprolol Succinate (Toprol Xl -) 25 mg PO DAILY [facility] Last Admin: 04/13/18 09:04 Dose: 25 mg Miscellaneous (Lidoderm Patch Removal) 1 each MC DAILY@2200 [facility] Last Admin: 04/13/18 21:57 Dose: Not Given Quetiapine Fumarate (Seroquel -) 25 mg PO DAILY [facility] Last Admin: 04/13/18 09:04 Dose: 25 mg Ranitidine HCl (Zantac -) 150 mg PO BID [facility] Last Admin: 04/13/18 22:00 Dose: 150 mg Review of Systems Cardiovascular: As noted above Respiratory: denies: denies: Cough or Sputum Production Gastrointestinal: denies: Nausea, Vomiting, Diarrhea, Constipation or Abdominal Discomfort Musculoskeletal: No Symptoms Reported Endocrine: No Symptoms Reported - Objective Vital Signs: Last Vital Signs Temp Pulse Resp BP Pulse Ox 98.4 F 102 H 16 98/68 100 04/13/18 18:00 04/13/18 22:00 04/13/18 22:00 04/13/18 22:00 04/13/18 20:51 Intake & Output 04/11/18 04/12/18 04/13/18 04/14/18 23:59 23:59 23:59 23:59 Intake Total 260 250 Balance 260 250 Weight 192 lb 10.944 oz Constitutional: No Distress Neck: Supple Negative JVD No Bruit Cardiovascular: S1 S2 Regular Rate Rhythm Respiratory: Clear to A&P Bilaterally Gastrointestinal: Soft Benign Normal Bowel Sounds Ext: No Edema Labs: CBC, BMP 04/13/18 05:30 04/13/18 05:30 Assessment/Plan ASSESSMENT: 1. Chest pain syndrome, atypical for CAD angina pectoris 2. HTN 3. Hypercholesterolemia 4. History of CVA 5. History of craniotomy 6. History of COPD 7. History of GERD 8. History of anxiety disorder/clinical depression/panic attacks PLAN: 1. Continue Norvasc 2. Continue Toprol XL 3. Continue Lisinopril (Prinivil) 4. Add Lipitor 5. Ideally should be on anti-platelets agent therapy, Plavix unless contraindicated (ASA allergy) 6. May transfer to floor care from the cardiovascular point of view Pranay Jackson MD
[2018-04-14] MEDS ORDERED: PT OWN MED DRAWER 7, Y5N ONE ×3 (09:52→21:00)
[2018-04-14] MEDS: DIVALPROEX SODIUM 500 MG TABLET E.C. PO SCH ×2 (09:55→21:05)
[2018-04-14] MEDS: RANITIDINE HCL 150 MG TABLET (FP) PO SCH ×2 (09:56→21:04)
[2018-04-14] MEDS: QUEtiapine FUMARATE 25 MG TABLET (FP) PO SCH (09:56)
[2018-04-14] MEDS: amLODIPine BESYLATE 5 MG TABLET (FP) PO SCH (09:56)
[2018-04-14] MEDS: ENOXAPARIN NA (PORCINE) 40 MG/0.4 ML DISP.SYRIN SQ SCH (09:57)
[2018-04-14] MEDS: LISINOPRIL 5 MG TABLET (FP) PO SCH (09:57)
[2018-04-14] MEDS: metoPROLOL SUCCINATE 25 MG TAB.SR.24H (FP) PO SCH (09:57)
[2018-04-14] MEDS: LIDOCAINE 5% TOPICAL PATCH TP SCH (09:58)
--- NOTE | 2018-04-14 11:38 | HOSP ---
Subjective - Review of Symptoms Events since last encounter: Patient is seen and examined. Patient was suggested to follow up with her couples therapist for further w/u: Mammagram, dexa scan , vitamin D3 level. Vital Signs Temperature 98.4 F 04/14/18 06:00 Pulse Rate 70 04/14/18 06:00 Respiratory Rate 18 04/14/18 06:00 Blood Pressure 145/62 04/14/18 06:00 O2 Sat by Pulse Oximetry (%) 100 04/13/18 20:51 GENERAL: Awake, alert, and fully oriented, in no acute distress. HEAD: Normal with no signs of trauma. EYES: Pupils equal, round and reactive to light, extraocular movements intact, sclera anicteric, conjunctiva clear. EARS, NOSE, THROAT: Ears normal, oropharynx clear without exudates. Moist mucous membranes. NECK:positive for neck tenderness on the pressure points. Normal range of motion , supple without lymphadenopathy, JVD, or masses. LUNGS: Breath sounds equal, clear to auscultation bilaterally. No wheezes, and no crackles. No accessory muscle use. HEART: Regular rate and rhythm, normal S1 and S2 without murmur, rub or gallop. ABDOMEN: Soft, obese, nontender, ND, normoactive bowel sounds, no guarding, no rebound, no masses. MUSCULOSKELETAL: Normal range of motion at all joints. No bony deformities or tenderness. No CVA tenderness. EXTREMITIES: 2+ pulses, warm, well-perfused. No cyanosis. No clubbing. No peripheral edema. NEUROLOGICAL: Cranial nerves II-XII intact. Normal speech. Normal gait. PSYCHIATRIC: Cooperative. Good eye contact. Appropriate mood and affect. SKIN: Warm, dry, normal turgor, no rashes or lesions noted, normal capillary refill. CBCD WBC 5.3 K/mm3 (4.0-10.0) 04/13/18 05:30 RBC 4.03 M/mm3 (3.60-5.2) 04/13/18 05:30 Hgb 10.0 GM/dL (10.7-15.3) L 04/13/18 05:30 Hct 31.1 % (32.4-45.2) L 04/13/18 05:30 MCV 77.2 fl (80-96) L 04/13/18 05:30 MCHC 32.1 g/dl (32.0-36.0) 04/13/18 05:30 RDW 21.5 % (11.6-15.6) H 04/13/18 05:30 Plt Count 307 K/MM3 (134-434) 04/13/18 05:30 MPV 7.4 fl (7.5-11.1) L 04/13/18 05:30 CMP Sodium 135 mmol/L (136-145) L 04/13/18 05:30 Potassium 4.9 mmol/L (3.5-5.1) 04/13/18 05:30 Chloride 103 mmol/L (98-107) 04/13/18 05:30 Carbon Dioxide 29 mmol/L (21-32) 04/13/18 05:30 Anion Gap 3 MMOL/L (8-16) L 04/13/18 05:30 BUN 16 mg/dL (7-18) 04/13/18 05:30 Creatinine 0.7 mg/dL (0.55-1.3) 04/13/18 05:30 Creat Clearance w eGFR > 60 (>60) 04/13/18 05:30 Random Glucose 99 mg/dL (74-106) 04/13/18 05:30 Calcium 8.4 mg/dL (8.5-10.1) L 04/13/18 05:30 Total Bilirubin 0.4 mg/dL (0.2-1) 04/12/18 05:30 AST 30 U/L (15-37) 04/12/18 05:30 ALT 33 U/L (13-61) 04/12/18 05:30 Alkaline Phosphatase 156 U/L (45-117) H 04/12/18 05:30 Total Protein 6.8 g/dl (6.4-8.2) 04/12/18 05:30 Albumin 3.3 g/dl (3.4-5.0) L 04/12/18 05:30 CARDIAC ENZYMES Creatine Kinase 81 U/L (26-192) 04/11/18 20:45 Troponin I < 0.02 ng/ml (0.00-0.05) 04/11/18 20:45 Current Medications Generic Name Dose Route Start Last Admin Trade Name Freq PRN Reason Stop Dose Admin Acetaminophen 650 mg 04/11/18 20:06 04/13/18 22:00 Tylenol - PO 650 mg Q6H PRN Administration PAIN LEVEL 6-10 Alprazolam 0.25 mg 04/13/18 08:42 04/13/18 15:00 Xanax - PO 0.25 mg Q6H PRN Administration ANXIETY Amlodipine Besylate 5 mg 04/12/18 10:00 04/14/18 09:56 Norvasc - PO 5 mg DAILY [facility] Administration Divalproex Sodium 500 mg 04/12/18 10:00 04/14/18 09:55 Depakote - PO 500 mg BID [facility] Administration Enoxaparin Sodium 40 mg 04/12/18 10:00 04/14/18 09:57 Lovenox - SQ 40 mg DAILY [facility] Administration Lidocaine 1 patch 04/12/18 11:00 04/14/18 09:58 Lidoderm Patch - TP 1 patch DAILY [facility] Administration Lisinopril 5 mg 04/12/18 10:00 04/14/18 09:57 Prinivil PO 5 mg DAILY [facility] Administration Metoprolol Succinate 25 mg 04/13/18 10:00 04/14/18 09:57 Toprol Xl - PO 25 mg DAILY [facility] Administration Miscellaneous 1 each 04/12/18 22:00 04/13/18 21:57 Lidoderm Patch Removal MC Not Given DAILY@2200 [facility] Quetiapine Fumarate 25 mg 04/13/18 10:00 04/14/18 09:56 Seroquel - PO 25 mg DAILY [facility] Administration Ranitidine HCl 150 mg 04/12/18 10:00 04/14/18 09:56 Zantac - PO 150 mg BID [facility] Administration Home Medications Medication Instructions Recorded Amlodipine Besylate 5 mg PO DAILY 11/06/17 Divalproex Sodium [Depakote] 500 mg PO BID 11/06/17 Famotidine 20 mg PO BID 11/06/17 Lisinopril [Prinivil] 5 mg PO DAILY #30 tablet 11/07/17 Escitalopram Oxalate [Lexapro -] 10 mg PO DAILY 04/13/18 Metoprolol Succinate [Toprol Xl] 04/13/18 Mirtazapine 15 mg PO HS 04/13/18 Quetiapine Fumarate [Seroquel -] 25 mg PO 04/13/18 Physical Examination Vital Signs: Vital Signs Temperature 98.4 F 04/14/18 06:00 Pulse Rate 70 04/14/18 06:00 Respiratory Rate 18 04/14/18 06:00 Blood Pressure 145/62 04/14/18 06:00 O2 Sat by Pulse Oximetry (%) 100 04/13/18 20:51 Labs: CBC, BMP 04/13/18 05:30 04/13/18 05:30
[2018-04-14] MEDS: ACETAMINOPHEN 325 MG TABLET (FP) PO PRN ×2 (13:37→21:04)
[2018-04-14] MEDS: ALPRAZolam 0.25 MG TABLET PO PRN (18:02)
--- NOTE | 2018-04-14 18:55 | PN ---
Progress Note (short form) - Note Progress Note: Patient is seen and examined. Patient continues to c/o having left sided muscular pain, and does not want to go home. Vital Signs Temperature 98.4 F 04/14/18 06:00 Pulse Rate 70 04/14/18 06:00 Respiratory Rate 18 04/14/18 06:00 Blood Pressure 145/62 04/14/18 06:00 O2 Sat by Pulse Oximetry (%) 100 04/13/18 20:51 GENERAL: Awake, alert, and fully oriented, in no acute distress. HEAD: Normal with no signs of trauma. EYES: Pupils equal, round and reactive to light, EOMI, sclera anicteric, conjunctiva clear. EARS, NOSE, THROAT: Ears normal, oropharynx clear without exudates. NECK: positive for neck tenderness on the pressure points. . LUNGS: CTABL , No wheezes, and no crackles. palpable chest tenderness of the side. HEART: Regular rate and rhythm, normal S1 and S2 ABDOMEN: Soft, obese, nontender, ND, no guarding, no rebound, no masses. EXTREMITIES: 2+ pulses, warm, well-perfused. NEUROLOGICAL: Cranial nerves II-XII intact. PSYCHIATRIC: anxiety disorder SKIN: Warm, dry, normal turgor, WBC 5.3 K/mm3 (4.0-10.0) 04/13/18 05:30 RBC 4.03 M/mm3 (3.60-5.2) 04/13/18 05:30 Hgb 10.0 GM/dL (10.7-15.3) L 04/13/18 05:30 Hct 31.1 % (32.4-45.2) L 04/13/18 05:30 MCV 77.2 fl (80-96) L 04/13/18 05:30 MCHC 32.1 g/dl (32.0-36.0) 04/13/18 05:30 RDW 21.5 % (11.6-15.6) H 04/13/18 05:30 Plt Count 307 K/MM3 (134-434) 04/13/18 05:30 MPV 7.4 fl (7.5-11.1) L 04/13/18 05:30 CMP Sodium 135 mmol/L (136-145) L 04/13/18 05:30 Potassium 4.9 mmol/L (3.5-5.1) 04/13/18 05:30 Chloride 103 mmol/L (98-107) 04/13/18 05:30 Carbon Dioxide 29 mmol/L (21-32) 04/13/18 05:30 Anion Gap 3 MMOL/L (8-16) L 04/13/18 05:30 BUN 16 mg/dL (7-18) 04/13/18 05:30 Creatinine 0.7 mg/dL (0.55-1.3) 04/13/18 05:30 Creat Clearance w eGFR > 60 (>60) 04/13/18 05:30 Random Glucose 99 mg/dL (74-106) 04/13/18 05:30 Calcium 8.4 mg/dL (8.5-10.1) L 04/13/18 05:30 Total Bilirubin 0.4 mg/dL (0.2-1) 04/12/18 05:30 AST 30 U/L (15-37) 04/12/18 05:30 ALT 33 U/L (13-61) 04/12/18 05:30 Alkaline Phosphatase 156 U/L (45-117) H 04/12/18 05:30 Total Protein 6.8 g/dl (6.4-8.2) 04/12/18 05:30 Albumin 3.3 g/dl (3.4-5.0) L 04/12/18 05:30 CARDIAC ENZYMES Creatine Kinase 81 U/L (26-192) 04/11/18 20:45 Troponin I < 0.02 ng/ml (0.00-0.05) 04/11/18 20:45 Current Medications Generic Name Dose Route Start Last Admin Trade Name Freq PRN Reason Stop Dose Admin Acetaminophen 650 mg 04/11/18 20:06 04/13/18 22:00 Tylenol - PO 650 mg Q6H PRN Administration PAIN LEVEL 6-10 Alprazolam 0.25 mg 04/13/18 08:42 04/13/18 15:00 Xanax - PO 0.25 mg Q6H PRN Administration ANXIETY Amlodipine Besylate 5 mg 04/12/18 10:00 04/14/18 09:56 Norvasc - PO 5 mg DAILY KATHERINE Administration Divalproex Sodium 500 mg 04/12/18 10:00 04/14/18 09:55 Depakote - PO 500 mg BID KATHERINE Administration Enoxaparin Sodium 40 mg 04/12/18 10:00 04/14/18 09:57 Lovenox - SQ 40 mg DAILY KATHERINE Administration Lidocaine 1 patch 04/12/18 11:00 04/14/18 09:58 Lidoderm Patch - TP 1 patch DAILY KATHERINE Administration Lisinopril 5 mg 04/12/18 10:00 04/14/18 09:57 Prinivil PO 5 mg DAILY KATHERINE Administration Metoprolol Succinate 25 mg 04/13/18 10:00 04/14/18 09:57 Toprol Xl - PO 25 mg DAILY KATHERINE Administration Miscellaneous 1 each 04/12/18 22:00 04/13/18 21:57 Lidoderm Patch Removal MC Not Given DAILY@2200 [facility] Quetiapine Fumarate 25 mg 04/13/18 10:00 04/14/18 09:56 Seroquel - PO 25 mg DAILY KATHERINE Administration Ranitidine HCl 150 mg 04/12/18 10:00 04/14/18 09:56 Zantac - PO 150 mg BID KATHERINE Administration Home Medications Medication Instructions Recorded Amlodipine Besylate 5 mg PO DAILY 11/06/17 Divalproex Sodium [Depakote] 500 mg PO BID 11/06/17 Famotidine 20 mg PO BID 11/06/17 Lisinopril [Prinivil] 5 mg PO DAILY #30 tablet 11/07/17 Escitalopram Oxalate [Lexapro -] 10 mg PO DAILY 04/13/18 Metoprolol Succinate [Toprol Xl] 04/13/18 Mirtazapine 15 mg PO HS 04/13/18 Quetiapine Fumarate [Seroquel -] 25 mg PO 04/13/[address]: neg for acute IC pathology EKG: NSR, HR 83, QTc 444 ms, no ST-T changes. ASSESSMENT AND PLAN: Patient is 72yo with pmhx of HTN, CVA, HLD, HTN, chronic hyponatremia, COPD presented to the ED with chronic chest pain admitted to r/o ACS. # Psych.hx : anxiety /panic attack disorder; on Lexapro 10mg at home as per psych. not to increase the dose. DISCUSSED WITH AGREES WITH THE PLAN. #Acute chest pain , most likely costrochondritis ; acs is ruled out , Atypical chest pain reproducable, 2 sets of troponin are negative. EKG showed NSR, HR 83 , QTc 444 ms, no ST-T changes. Echo ordered follow the result, Tylenol 650 Q6H PO for pain. as per patient had a recent cardiac w/u with negative result. will suggests the patient the patient Mammogram and dexa scan, and check vitamin d level. #Headaches are likely due to cervical neck tenderness. improving, fOLLOW WITH dR. Gil in the office # Ataxic gait, Neuro consult appreciated , need Gait training/rehab, FOLLOW WITH FOR FURTHER CARE. #HTN: continue home meds. #Hx of Seizure cont home meds: Depakote 500 BID DVT Px: Lovenox 40 QD GI Px: Famotidine 20 BID Patient was suggested to follow up with her [employer] consultant for further w/u: Mammagram, dexa scan , vitamin D3 level. Visit type - Emergency Visit Emergency Visit: Yes ED Registration Date: 04/11/18 Care time: The patient presented to the Emergency Department on the above date and was hospitalized for further evaluation of their emergent condition. - New Patient This patient is new to me today: No - Critical Care Critical Care patient: No - Discharge Referral Referred to [facility] Yes Physician Referral: Waldo Morgan MD ([facility])
[2018-04-14] MEDS: LIDOCAINE PATCH REMOVAL MC SCH (21:29)
[2018-04-14] MEDS ORDERED: LORazepam 2 MG/ML SDV VIAL IVPUSH ONE (22:59)
[2018-04-14] MEDS ORDERED: MELATONIN 5 MG TABLETS PO ONE ×2 (23:00→23:45)
[2018-04-15 07:14] VITALS: BP 107/56; PULSE 63; TEMP 98.2
--- NOTE | 2018-04-15 07:39 | PN ---
Progress Note (short form) - Note Progress Note: Coverage for Dr. Agnieszka León Chief Complaint: Events noted, notes reviewed, awake and alert, complaining of persistent left sided chest discomfort and headache History of Present Illness: Seen and examined on telemetry. Events noted, notes reviewed, awake and alert, complaining of persistent left sided chest discomfort and headache Patient has persistent chest pain/discomfort which is non ischemic/non cardiac in etiology and there is no indication at this point for continued telemetry monitoring - Current Medication List Current Medications: Current Medications Acetaminophen (Tylenol -) 650 mg PO Q6H PRN PRN Reason: PAIN LEVEL 6-10 Last Admin: 04/14/18 21:04 Dose: 650 mg Alprazolam (Xanax -) 0.25 mg PO Q6H PRN PRN Reason: ANXIETY Last Admin: 04/14/18 18:02 Dose: 0.25 mg Amlodipine Besylate (Norvasc -) 5 mg PO DAILY [facility] Last Admin: 04/14/18 09:56 Dose: 5 mg Divalproex Sodium (Depakote -) 500 mg PO BID [facility] Last Admin: 04/14/18 21:05 Dose: 500 mg Enoxaparin Sodium (Lovenox -) 40 mg SQ DAILY [facility] Last Admin: 04/14/18 09:57 Dose: 40 mg Lidocaine (Lidoderm Patch -) 1 patch TP DAILY [facility] Last Admin: 04/14/18 09:58 Dose: 1 patch Lisinopril (Prinivil) 5 mg PO DAILY [facility] Last Admin: 04/14/18 09:57 Dose: 5 mg Metoprolol Succinate (Toprol Xl -) 25 mg PO DAILY [facility] Last Admin: 04/14/18 09:57 Dose: 25 mg Miscellaneous (Lidoderm Patch Removal) 1 each MC DAILY@2200 [facility] Last Admin: 04/14/18 21:29 Dose: Not Given Quetiapine Fumarate (Seroquel -) 25 mg PO DAILY [facility] Last Admin: 04/14/18 09:56 Dose: 25 mg Ranitidine HCl (Zantac -) 150 mg PO BID [facility] Last Admin: 04/14/18 21:04 Dose: 150 mg Review of Systems Cardiovascular: As noted above Respiratory: denies: denies: Cough or Sputum Production Gastrointestinal: denies: Nausea, Vomiting, Diarrhea, Constipation or Abdominal Discomfort Musculoskeletal: No Symptoms Reported Endocrine: No Symptoms Reported - Objective Vital Signs: Last Vital Signs Temp Pulse Resp BP Pulse Ox 98.2 F 63 12 107/56 L 100 04/15/18 06:00 04/15/18 06:00 04/15/18 06:00 04/15/18 06:00 04/14/18 21:00 Intake & Output 04/12/18 04/13/18 04/14/18 04/15/18 23:59 23:59 23:59 23:59 Intake Total 260 250 400 Balance 260 250 400 Constitutional: No Distress Neck: Supple Negative JVD No Bruit Cardiovascular: S1 S2 Regular Rate Rhythm Respiratory: Clear to A&P Bilaterally Gastrointestinal: Soft Benign Normal Bowel Sounds Ext: No Edema Labs: CBC, BMP 04/13/18 05:30 04/13/18 05:30 Hepatic Panel Total Bilirubin 0.4 mg/dL (0.2-1) 04/12/18 05:30 AST 30 U/L (15-37) 04/12/18 05:30 ALT 33 U/L (13-61) 04/12/18 05:30 Alkaline Phosphatase 156 U/L (45-117) H 04/12/18 05:30 Albumin 3.3 g/dl (3.4-5.0) L 04/12/18 05:30 Assessment/Plan ASSESSMENT: 1. Chest pain syndrome, atypical for CAD angina pectoris 2. HTN 3. Hypercholesterolemia 4. History of CVA 5. History of craniotomy 6. History of COPD 7. History of GERD 8. History of anxiety disorder/clinical depression/panic attacks PLAN: 1. Continue Norvasc 2. Continue Toprol XL 3. Continue Lisinopril (Prinivil) 4. Add Lipitor as recommended 5. As outlined ideally should be on anti-platelets agent therapy, Plavix unless contraindicated (ASA allergy) 6. As outlined in prior note and above D/C monitor and transfer to floor care from the cardiovascular point of view Pranay Jackson MD
--- NOTE | 2018-04-15 16:29 | DS ---
Physical Exam: SUBJECTIVE: Patient seen and examined Patient hs no new complain. OBJECTIVE: Vital Signs Temperature 98.2 F 04/15/18 06:00 Pulse Rate 63 04/15/18 06:00 Respiratory Rate 12 04/15/18 06:00 Blood Pressure 107/56 L 04/15/18 06:00 O2 Sat by Pulse Oximetry (%) 100 04/14/18 21:00 PHYSICAL EXAM GENERAL: The patient is awake, alert, and fully oriented, in no acute distress. HEAD: Normal with no signs of trauma. EYES: PERRL, extraocular movements intact, sclera anicteric, conjunctiva clear. ENT: Ears normal, nares patent, oropharynx clear without exudates, moist mucous membranes. NECK: Trachea midline, full range of motion, supple. LUNGS: Breath sounds equal, clear to auscultation bilaterally, no wheezes, no crackles, no accessory muscle use. HEART: Regular rate and rhythm, S1, S2 without murmur, rub or gallop. ABDOMEN: Soft, nontender, nondistended, normoactive bowel sounds, no guarding, no rebound, no hepatosplenomegaly, no masses. EXTREMITIES: 2+ pulses, warm, well-perfused, no edema. NEUROLOGICAL: Cranial nerves II through XII grossly intact. Normal speech, gait not observed. PSYCH: Normal mood, normal affect. SKIN: Warm, dry, normal turgor, no rashes or lesions noted. LABS Laboratory Results - last 24 hr 04/13/18 04/14/18 05:30 17:44 POC Glucometer 102 Free T3 2.9 CBCD WBC 5.3 K/mm3 (4.0-10.0) 04/13/18 05:30 RBC 4.03 M/mm3 (3.60-5.2) 04/13/18 05:30 Hgb 10.0 GM/dL (10.7-15.3) L 04/13/18 05:30 Hct 31.1 % (32.4-45.2) L 04/13/18 05:30 MCV 77.2 fl (80-96) L 04/13/18 05:30 MCHC 32.1 g/dl (32.0-36.0) 04/13/18 05:30 RDW 21.5 % (11.6-15.6) H 04/13/18 05:30 Plt Count 307 K/MM3 (134-434) 04/13/18 05:30 MPV 7.4 fl (7.5-11.1) L 04/13/18 05:30 CMP Sodium 135 mmol/L (136-145) L 04/13/18 05:30 Potassium 4.9 mmol/L (3.5-5.1) 04/13/18 05:30 Chloride 103 mmol/L (98-107) 04/13/18 05:30 Carbon Dioxide 29 mmol/L (21-32) 04/13/18 05:30 Anion Gap 3 MMOL/L (8-16) L 04/13/18 05:30 BUN 16 mg/dL (7-18) 04/13/18 05:30 Creatinine 0.7 mg/dL (0.55-1.3) 04/13/18 05:30 Creat Clearance w eGFR > 60 (>60) 04/13/18 05:30 Random Glucose 99 mg/dL (74-106) 04/13/18 05:30 Calcium 8.4 mg/dL (8.5-10.1) L 04/13/18 05:30 Total Bilirubin 0.4 mg/dL (0.2-1) 04/12/18 05:30 AST 30 U/L (15-37) 04/12/18 05:30 ALT 33 U/L (13-61) 04/12/18 05:30 Alkaline Phosphatase 156 U/L (45-117) H 04/12/18 05:30 Total Protein 6.8 g/dl (6.4-8.2) 04/12/18 05:30 Albumin 3.3 g/dl (3.4-5.0) L 04/12/18 05:30 CARDIAC ENZYMES Creatine Kinase 81 U/L (26-192) 04/11/18 20:45 Troponin I < 0.02 ng/ml (0.00-0.05) 04/11/18 20:45 Home Medication List Medication Instructions Recorded Confirmed Type Amlodipine Besylate 5 mg PO DAILY 11/06/17 04/11/18 History Divalproex Sodium [Depakote] 500 mg PO BID 11/06/17 04/11/18 History Famotidine 20 mg PO BID 11/06/17 04/11/18 History Escitalopram Oxalate [Lexapro -] 10 mg PO DAILY 04/13/18 04/13/18 History Metoprolol Succinate [Toprol Xl] 04/13/18 History Mirtazapine 15 mg PO HS 04/13/18 04/13/18 History Quetiapine Fumarate [Seroquel -] 25 mg PO 04/13/[address]: neg for acute IC pathology EKG: NSR, HR 83, QTc 444 ms, no ST-T changes. HOSPITAL COURSE: Date of Admission:04/11/18 Date of Discharge: 04/15/18 Patient is 72yo with pmhx of HTN, CVA, HLD, HTN, COPD presented to the ED with chronic chest pain admitted to r/o ACS. # Psych.hx : anxiety /panic attack disorder; on Lexapro 10mg at home as per psych. not to increase the dose. DISCUSSED WITH AGREES WITH THE PLAN. #chronic chest pain , most likely costrochondritis ; acs is ruled out , which is reproducable, 2 sets of troponin are negative. EKG showed NSR, HR 83, QTc 444 ms, no ST-T changes. Echo ordered follow the result, Tylenol 650 Q6H PO for pain. as per patient had a recent cardiac w/u with negative result. will suggests the patient Mammogram and dexa scan, and check vitamin d level. #Headaches are likely due to cervical neck tenderness. improving, fOLLOW WITH dR. Corral in the office # Ataxic gait, Neuro consult appreciated , need Gait training/rehab, FOLLOW WITH FOR FURTHER CARE. #HTN: continue home meds. #Hx of Seizure cont home meds: Depakote 500 BID DVT Px: Lovenox 40 QD GI Px: Famotidine 20 BID Patient was suggested to follow up with her commonwealth attorney for further w/u: Mammagram, dexa scan , vitamin D3 level. Patient will go home, her aid will be available today. Minutes to complete discharge: 35 Discharge Summary Reason For Visit: CHEST PAIN Condition: Improved - Instructions Diet, Activity, Other Instructions: You presented to the hospital due to chest pain. Please hve Mammogram done as an outpatient. See your primary care doctor for getting a mammogram done. Also you need a Dexa scan to check whether you have osteoporosis or not, also have your primary order Vit D3 level to check whether you are Vit. D deficient. Please continue to take the following medications below as was previously prescribed to you: -Mirtazapine 15 MG PO at NIGHT Once per day -[id number] MG daily. Please take this once per day -Seroquel 25 MG Tab once per day Please continue to take your home medications as previously prescribed. Please follow up this week with your primary care doctor, Dr Mabry in 1 week. Please follow up with the Psychiatrist, Dr Ni Please follow up with the Computer System Validation Specialist Dr Vargas in 3 weeks. Patient was suggested to follow up with her commonwealth attorney for further w/u: Mammagram, dexa scan , vitamin D3 level. Please follow up with the Neurologist, Dr Corral. The neurologist recommends you undergo an MRI of your cervical region of the spine. Please follow up with him at discharge. Please Return to Emergency department if you begin to experience any chest pain , shortness of breath, nausea/vomiting or any worsening of your symptoms/ Referrals: Taylor Ni MD [Staff Physician] - 1 Week Waldo Mabry MD [Primary Care Provider] - 1 Week Tung Corral MD [Staff Physician] - 1 Week Shyam Vargas MD [Staff Physician] - 3 Weeks Disposition: HOME - Home Medications Comprehensive Discharge Medication List: Ambulatory Orders Amlodipine Besylate 5 mg PO DAILY 11/06/17 Divalproex Sodium [Depakote] 500 mg PO BID 11/06/17 Famotidine 20 mg PO BID 11/06/17 Lisinopril [Prinivil] 5 mg PO DAILY #30 tablet 11/07/17 Escitalopram Oxalate [Lexapro -] 10 mg PO DAILY 04/13/18 Metoprolol Succinate [Toprol Xl] 04/13/18 Mirtazapine 15 mg PO HS 04/13/18 Quetiapine Fumarate [Seroquel -] 25 mg PO 04/13/18 This patient is new to me today: No Emergency Visit: Yes ED Registration Date: 04/11/18 Care time: The patient presented to the Emergency Department on the above date and was hospitalized for further evaluation of their emergent condition. Critical Care patient: No - Discharge Referral [facility]erred to [facility] Yes Physician Referral: Waldo Morgan MD ([facility])
== END 2018-04-15 09:37 | disposition home or self-care (01) ==
LOC: JER 15:33 → JERBED 18:57 → J2W 04-12 01:02
PROVIDERS: ADMIT Internal Medicine; ATTEND Internal Medicine
PROC: 3E033GC Introduction of Other Therapeutic Substance into Peripheral Vein, Percutaneous Approach (ICD-10-PCS; principal; 2018-04-11)
PROC: 3E013GC Introduction of Other Therapeutic Substance into Subcutaneous Tissue, Percutaneous Approach (ICD-10-PCS; 2018-04-11)
DX: R07.89 Other chest pain (principal); I10 Essential (primary) hypertension; E78.5 Hyperlipidemia, unspecified; E11.9 Type 2 diabetes mellitus without complications; J44.9 Chronic obstructive pulmonary disease, unspecified; D64.9 Anemia, unspecified; K21.9 Gastro-esophageal reflux disease without esophagitis; G89.29 Other chronic pain; F41.9 Anxiety disorder, unspecified; F32.9 Major depressive disorder, single episode, unspecified; I69.398 Other sequelae of cerebral infarction; E66.9 Obesity, unspecified; Z68.35 Body mass index [BMI] 35.0-35.9, adult; G40.909 Epilepsy, unspecified, not intractable, without status epilepticus; Z88.5 Allergy status to narcotic agent; Z88.6 Allergy status to analgesic agent; F06.4 Anxiety disorder due to known physiological condition; F41.0 Panic disorder [episodic paroxysmal anxiety]; G44.89 Other headache syndrome; R53.1 Weakness; Z87.442 Personal history of urinary calculi; Z85.841 Personal history of malignant neoplasm of brain; R26.0 Ataxic gait
CPT/HCPCS: 36415; 70450-TC; 80048; 80053; 80061; 80307; 82550; 82607; 82746; 82962; 83721; 83735; 84100; 84439; 84443; 84481; 84484; 85025; 85027; 85651; 86140; 93005; 93010; 93306-TC; 96372; 96374; 97116-GP; 99284-25; G0378

== ENCOUNTER 2018-04-15 18:26 | Emergency (ER) | payer OTHER ==
[2018-04-15 18:35] VITALS: BP 125/60; PULSE 88; TEMP 98; BMI 28.2
--- NOTE | 2018-04-15 18:54 | PDOC ---
History of Present Illness - General Chief Complaint: Chest Pain Stated Complaint: PAIN IN LEFT BREAST Time Seen by Provider: 04/15/18 18:52 Past History - Past Medical History Allergies/Adverse Reactions: Allergies Allergy/AdvReac Type Severity Reaction Status Date / Time aspirin Allergy Severe "NERVOUS" Verified 04/15/18 18:35 morphine Allergy Severe "ANXIETY-DE Verified 04/15/18 18:35 SPERATION" Home Medications: Ambulatory Orders Amlodipine Besylate 5 mg PO DAILY 11/06/17 Divalproex Sodium [Depakote] 500 mg PO BID 11/06/17 Famotidine 20 mg PO BID 11/06/17 Lisinopril [Prinivil] 5 mg PO DAILY #30 tablet 11/07/17 Escitalopram Oxalate [Lexapro -] 10 mg PO DAILY 04/13/18 Metoprolol Succinate [Toprol Xl] 04/13/18 Mirtazapine 15 mg PO HS 04/13/18 Quetiapine Fumarate [Seroquel -] 25 mg PO 04/13/18 Anemia: Yes Asthma: No Cancer: No Cardiac Disorders: Yes (Chest pain) 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, baseline confusion and dizziness) COPD: Yes CHF: No DVT: No Dementia: No Diabetes: Yes GI Disorders: Yes (gerd, gastric ulcer, dysphagia) Disorders: Yes (kidney stone in the past) HTN: Yes Hypercholesterolemia: Yes Liver Disease: No Psychiatric Problems: Yes (ANXIETY DEPRESSION) Seizures: Yes (S/P craniotomy for benign tumor - on Depakote for seizure prophylaxis) Thyroid Disease: No - Surgical History Abdominal Surgery: Yes Appendectomy: No Cardiac Surgery: No Cholecystectomy: Yes Lung Surgery: No Neurologic Surgery: Yes (removal left meningioma, craniotomy) Orthopedic Surgery: Yes (bilat knee replacement) - Immunization History Td Vaccination: Yes TDAP Vaccination: No Immunization Up to Date: Yes - Suicide/Smoking/Psychosocial Hx Smoking Status: No Smoking History: Never smoked Have you smoked in the past 12 months: No Number of Cigarettes Smoked Daily: 0 Cigars Per Day: 0 Hx Alcohol Use: No Drug/Substance Use Hx: No Substance Use Type: None Hx Substance Use Treatment: No *Physical Exam - Vital Signs Last Vital Signs Temp Pulse Resp BP Pulse Ox 98 F 88 18 125/60 99 04/15/18 18:33 04/15/18 18:33 04/15/18 18:33 04/15/18 18:33 04/15/18 18:33 Moderate Sedation - Procedure Monitoring Vital Signs: Procedure Monitoring Vital Signs Temperature 98 F 04/15/18 18:33 Pulse Rate 88 04/15/18 18:33 Respiratory Rate 18 04/15/18 18:33 Blood Pressure 125/60 04/15/18 18:33 O2 Sat by Pulse Oximetry (%) 99 04/15/18 18:33 *DC/Admit/Observation/Transfer Diagnosis at time of Disposition: Atypical chest pain - Discharge Dispostion Disposition: HOME Condition at time of disposition: Improved Decision to Admit order: No - Referrals Referrals: Waldo Mabry MD [Primary Care Provider] - - Patient Instructions Printed Discharge Instructions: DI for Atypical Chest Pain Additional Instructions: Es probable que el dolor en tu pecho no est relacionado con tu corazn. Por favor, tome Tylenol en casa. Consulte a perla mdico de atencin primaria esta semana. Por favor intente Tylenol para el dolor en casa. - Post Discharge Activity
[2018-04-15] MEDS ORDERED: ACETAMINOPHEN 325 MG TABLET (FP) PO ONE (18:56)
[2018-04-15] MEDS ORDERED: ACETAMINOPHEN 325 MG TABLET (FP) ONE (18:57)
--- NOTE | 2018-04-15 18:58 | PDOC ---
Attending Attestation - HPI HPI: 04/15/18 19:01 The patient is a 72 year old female, with a significant past medical history of HLD, HTN, COPD, CVA (w/residual altered balance), NIDDM, seizures (2/2 to benign meningioma craniotomy), who presents to the emergency department with, chest pain and headache. She describes her chest pain as constant and non radiating. She notes this is similar to her previous episodes which she was evaluated for most recently admitted and discharged this morning, lab work and ECHO were done and unremarkable at this time. Patient notes her home health aid is only around during the days and she becomes worried at night. While in the ED , the patient requests Tylenol and a sandwich. She denies any palpitations or shortness of breath. Patient denies any recent weakness, numbness, tingling, syncope. She denies recent fevers, chills, or dizziness. She denies recent nausea, vomit, diarrhea or constipation. She denies recent dysuria, frequency, urgency or hematuria. Allergies: Aspirin. Morphine. Past surgical history: Craniotomy. Social history: Nonsmoker. Denies EtOH use and recreational drug use. Primary Care Physician: Dr. Mabry - Physicial Exam PE: 04/15/18 19:01 GENERAL: Well developed, well nourished. Awake and alert. No acute distress. +HEENT: Mild anterior nosebleed. Normocephalic, atraumatic. PERRLA, EOMI. No conjunctival pallor. Sclera are non-icteric. Moist mucous membranes. Oropharynx is clear. NECK: Supple. Full ROM. No JVD. Carotid pulses 2+ and symmetric, without bruits. No thyromegaly. No lymphadenopathy. CARDIOVASCULAR: Regular rate and rhythm. No murmurs, rubs, or gallops. Distal pulses are 2+ and symmetric. PULMONARY: No evidence of respiratory distress. Lungs clear to auscultation bilaterally. No wheezing, rales or rhonchi. ABDOMINAL: Soft. Non-tender. Non-distended. No rebound or guarding. No organomegaly. Normoactive bowel sounds. MUSCULOSKELETAL Normal range of motion at all joints. No bony deformities or tenderness. No CVA tenderness. EXTREMITIES: No cyanosis. No clubbing. No edema. No calf tenderness. SKIN: Warm and dry. Normal capillary refill. No rashes. No jaundice. NEUROLOGICAL: Alert and oriented X3. appropriate. Cranial nerves 2-12 intact. No deficits to light touch and temperature in face, upper extremities and lower extremities. No motor deficits in the in face, upper extremities and lower extremities. Normoreflexic in the upper and lower extremities. Normal speech. Toes are down- going bilaterally. Gait is normal without ataxia. PSYCHIATRIC: (+)Mild anxiety Cooperative. Good eye contact. Appropriate mood and affect. <Caleb Canales - Last Filed: 04/15/18 19:01> - Resident Resident Name: Deja Stahl - ED Attending Attestation I have performed the following: I have examined & evaluated the patient, The case was reviewed & discussed with the resident, I agree w/resident's findings & plan, Exceptions are as noted - HPI HPI: 04/15/18 18:55 72 yo female BIBA for chest pain. She is well known to our facility. She was just discharged from this hospital earlier today. - Medical Decision Making 04/15/18 19:29 This patient had cardiac workup that included an ECHO done several days ago.There was a normal LV function and EF ws 55-60% Cardiololgy consult gave impression of anxiety,panic attacks and atypical chest pain her ekg was nsr with no signs of abnormalities pt d/c home <Florinda Gallagher - Last Filed: 04/15/18 19:31> Attestations - Attestations 04/15/18 19:01 Documentation prepared by Caleb Canales, acting as medical support assistant for Florinda Gallagher MD. <Caleb Canales - Last Filed: 04/15/18 19:01>
--- NOTE | 2018-04-17 13:50 | EKG ---
Test Reason : Blood Pressure : / mmHG Vent. Rate : 086 BPM Atrial Rate : 086 BPM P-R Int : 158 ms QRS Dur : 076 ms QT Int : 368 ms P-R-T Axes : 036 002 022 degrees QTc Int : 440 ms NORMAL SINUS RHYTHM NORMAL ECG WHEN COMPARED WITH ECG OF 12-APR-2018 07:41, NO SIGNIFICANT CHANGE WAS FOUND Confirmed by MD Dominguez Daniel ([id number]) on 04/17/2018 1:50:06 PM Referred By: Confirmed By:Kirit Dominguez MD
== END 2018-04-15 19:41 | disposition home or self-care (01) ==
LOC: JER 18:26
DX: R07.9 Chest pain, unspecified (principal); D64.9 Anemia, unspecified; I10 Essential (primary) hypertension; E11.9 Type 2 diabetes mellitus without complications; E78.00 Pure hypercholesterolemia, unspecified; F41.8 Other specified anxiety disorders; F32.9 Major depressive disorder, single episode, unspecified; J44.9 Chronic obstructive pulmonary disease, unspecified; Z87.442 Personal history of urinary calculi; Z87.19 Personal history of other diseases of the digestive system; Z86.011 Personal history of benign neoplasm of the brain; I69.893 Ataxia following other cerebrovascular disease; I69.810 Attention and concentration deficit following other cerebrovascular disease; Z88.8 Allergy status to other drugs, medicaments and biological substances; Z96.653 Presence of artificial knee joint, bilateral
CPT/HCPCS: 93005; 93010; 99282-25

== ENCOUNTER 2018-04-16 06:54 | Emergency (ER) | payer OTHER ==
[2018-04-16 07:34] VITALS: BMI 28.2
[2018-04-16] MEDS ORDERED: ACETAMINOPHEN 325 MG TABLET (FP) PO ONE (08:15)
--- NOTE | 2018-04-16 08:18 | PDOC ---
History of Present Illness - General Chief Complaint: Chest Pain Stated Complaint: CHEST PAIN Time Seen by Provider: 04/16/18 08:02 History Source: Patient - History of Present Illness Presenting Symptoms: Chest Pain Past History - Past Medical History Allergies/Adverse Reactions: Allergies Allergy/AdvReac Type Severity Reaction Status Date / Time aspirin Allergy Severe "NERVOUS" Verified 04/16/18 07:31 morphine Allergy Severe "ANXIETY-DE Verified 04/16/18 07:31 SPERATION" Home Medications: Ambulatory Orders Amlodipine Besylate 5 mg PO DAILY 11/06/17 Divalproex Sodium [Depakote] 500 mg PO BID 11/06/17 Famotidine 20 mg PO BID 11/06/17 Lisinopril [Prinivil] 5 mg PO DAILY #30 tablet 11/07/17 Escitalopram Oxalate [Lexapro -] 10 mg PO DAILY 04/13/18 Metoprolol Succinate [Toprol Xl] 04/13/18 Mirtazapine 15 mg PO HS 04/13/18 Quetiapine Fumarate [Seroquel -] 25 mg PO 04/13/18 Anemia: Yes Asthma: No Cancer: No Cardiac Disorders: Yes (Chest pain) 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, baseline confusion and dizziness) COPD: Yes CHF: No DVT: No Dementia: No Diabetes: Yes GI Disorders: Yes (gerd, gastric ulcer, dysphagia) Disorders: Yes (kidney stone in the past) HTN: Yes Hypercholesterolemia: Yes Liver Disease: No Psychiatric Problems: Yes (ANXIETY DEPRESSION) Seizures: Yes (S/P craniotomy for benign tumor - on Depakote for seizure prophylaxis) Thyroid Disease: No - Surgical History Abdominal Surgery: Yes Appendectomy: No Cardiac Surgery: No Cholecystectomy: Yes Lung Surgery: No Neurologic Surgery: Yes (removal left meningioma, craniotomy) Orthopedic Surgery: Yes (bilat knee replacement) - Immunization History Td Vaccination: Yes TDAP Vaccination: No Immunization Up to Date: Yes - Suicide/Smoking/Psychosocial Hx Smoking Status: No Smoking History: Never smoked Have you smoked in the past 12 months: No Number of Cigarettes Smoked Daily: 0 Cigars Per Day: 0 Information on smoking cessation initiated: No Hx Alcohol Use: No Drug/Substance Use Hx: No Substance Use Type: None Hx Substance Use Treatment: No Cardiac Specific PMH - Complaint Specific PMHX Pacemaker: No Review of Systems - Review of Systems Constitutional: No: Chills, Fever Respiratory: No: Cough, Shortness of Breath Cardiac (ROS): Yes: Chest Pain. No: Lightheadedness, Palpitations, Syncope *Physical Exam - Vital Signs Last Vital Signs Temp Pulse Resp BP Pulse Ox 98.3 F 81 17 140/65 99 04/16/18 09:23 04/16/18 09:23 04/16/18 09:23 04/16/18 09:23 04/16/18 09:23 - Physical Exam General Appearance: Yes: Appropriately Dressed. No: Apparent Distress HEENT: positive: Normal Voice Neck: positive: Supple Respiratory/Chest: positive: Lungs Clear, Normal Breath Sounds. negative: Respiratory Distress Cardiovascular: positive: Regular Rate, S1, S2 Integumentary: positive: Dry, Warm Neurologic: positive: Fully Oriented, Alert, Normal Mood/Affect Moderate Sedation - Procedure Monitoring Vital Signs: Procedure Monitoring Vital Signs Temperature 98.3 F 04/16/18 09:23 Pulse Rate 81 04/16/18 09:23 Respiratory Rate 17 04/16/18 09:23 Blood Pressure 140/65 04/16/18 09:23 O2 Sat by Pulse Oximetry (%) 99 04/16/18 09:23 ED Treatment Course - Medications Given in the ED: ED Medications Discontinued Medications Generic Name Dose Route Start Last Admin Trade Name Yonathanq PRN Reason Stop Dose Admin Acetaminophen 650 mg 04/16/18 08:15 04/16/18 08:40 Tylenol - PO 04/16/18 08:16 650 mg ONCE ONE Administration Medical Decision Making - Medical Decision Making 04/16/18 08:16 72 yo female, h/o COPD, HTN, HLD, CVA, chronic chest pain for numerous ER visits and admissions for same, here with her usual left-sided chest pain. Of note, patient was admitted to [facility] 6 days ago and was ruled out for ACS. Echo also done and unremarkable. Per records, pt was seen by Dr. Barriga of cardiology at the time who reported that patient had recent cardiac workup with negative result. Chest pain thought to be possibly costochondritis. Admitting team also recommended mammogram and DEXA scan. 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 Per triage nurse, pt reported that she came back to ED today because her home health clinical liaison did not come in today See exam Chronic CP Numerous encounters for same S/p neg cardiac w/u during recent admission Well geoff[facility] and stable w/ clear chest/lungs Per d/w ED attg, will do EKG only -pt req tylenol as she usually does -will get SW involved 04/16/18 10:15 EKG unremarkable. While pending reassessment/dispo, it was found that pt had eloped from ED *DC/Admit/Observation/Transfer Diagnosis at time of Disposition: Atypical chest pain - Discharge Dispostion Disposition: ELOPED Condition at time of disposition: Good - Referrals Referrals: Waldo Mabry MD [Primary Care Provider] - - Patient Instructions Printed Discharge Instructions: DI for Atypical Chest Pain Additional Instructions: Necesita seguir con perla PMD y cardilogos Regresar si los sntomas empeoran. - Post Discharge Activity
[2018-04-16] MEDS ORDERED: ACETAMINOPHEN 325 MG TABLET (FP) ONE (08:19)
--- NOTE | 2018-04-16 08:23 | PDOC ---
*Physical Exam - Vital Signs Last Vital Signs Temp Pulse Resp BP Pulse Ox 98.6 F 89 17 145/82 98 04/16/18 07:10 04/16/18 07:10 04/16/18 07:10 04/16/18 07:10 04/16/18 07:10 Medical Decision Making - Medical Decision Making 04/16/18 08:22 Pt seen by the Advanced Practice Provider under my direct supervision Ancillary studies reviewed I agree with plan as outlined by the Advanced Practice Provider BABAK Fairchild *DC/Admit/Observation/Transfer Diagnosis at time of Disposition: Atypical chest pain - Discharge Dispostion Disposition: ELOPED Condition at time of disposition: Good - Referrals Referrals: Waldo Mabry MD [Primary Care Provider] - - Patient Instructions Printed Discharge Instructions: DI for Atypical Chest Pain Additional Instructions: Necesita seguir con perla PMD y cardilogos Regresar si los sntomas empeoran. - Post Discharge Activity
[2018-04-16 09:24] VITALS: BP 140/65; PULSE 81; TEMP 98.3
--- NOTE | 2018-04-17 13:54 | EKG ---
Test Reason : Blood Pressure : / mmHG Vent. Rate : 084 BPM Atrial Rate : 084 BPM P-R Int : 154 ms QRS Dur : 074 ms QT Int : 366 ms P-R-T Axes : 032 004 034 degrees QTc Int : 432 ms NORMAL SINUS RHYTHM NORMAL ECG WHEN COMPARED WITH ECG OF 12-APR-2018 07:41, NO SIGNIFICANT CHANGE WAS FOUND Confirmed by MD Dominguez Daniel ([id number]) on 04/17/2018 1:54:03 PM Referred By: Confirmed By:Kirit Dominguez MD
== END 2018-04-16 09:24 | disposition left against medical advice (07) ==
LOC: JER 06:54
DX: R07.9 Chest pain, unspecified (principal); D64.9 Anemia, unspecified; J44.9 Chronic obstructive pulmonary disease, unspecified; I10 Essential (primary) hypertension; E11.9 Type 2 diabetes mellitus without complications; F41.8 Other specified anxiety disorders; F32.9 Major depressive disorder, single episode, unspecified; F06.4 Anxiety disorder due to known physiological condition; R26.0 Ataxic gait; I69.893 Ataxia following other cerebrovascular disease; I69.810 Attention and concentration deficit following other cerebrovascular disease; Z87.442 Personal history of urinary calculi; Z87.19 Personal history of other diseases of the digestive system; Z86.011 Personal history of benign neoplasm of the brain; Z96.653 Presence of artificial knee joint, bilateral
CPT/HCPCS: 93005; 93010; 99282-25

== ENCOUNTER 2018-04-17 01:19 | Emergency (ER) | payer OTHER ==
[2018-04-17 01:41] VITALS: BMI 33.8
--- NOTE | 2018-04-17 02:01 | PDOC ---
*Physical Exam - Vital Signs Last Vital Signs Temp Pulse Resp BP Pulse Ox 98.1 F 74 18 110/78 98 04/17/18 01:19 04/17/18 01:19 04/17/18 01:19 04/17/18 01:19 04/17/18 01:19 Medical Decision Making - Medical Decision Making 04/17/18 02:01 Patient seen by the advanced practice provider under my direct supervision. Ancillary testing reviewed as necessary. I agree with plan as outlined by the advanced practice provider. *DC/Admit/Observation/Transfer Diagnosis at time of Disposition: Musculoskeletal chest pain - Discharge Dispostion Disposition: HOME Condition at time of disposition: Stable - Referrals Referrals: Waldo Mabry MD [Primary Care Provider] - 2 Days - Patient Instructions Printed Discharge Instructions: DI for Chest Pain Print Language: [place] CITIZ[place] - Post Discharge Activity
[2018-04-17] MEDS ORDERED: ACETAMINOPHEN 325 MG TABLET (FP) PO ONE (02:22)
[2018-04-17] MEDS ORDERED: ACETAMINOPHEN 325 MG TABLET (FP) ONE (02:51)
--- NOTE | 2018-04-17 03:37 | PDOC ---
History of Present Illness - General Chief Complaint: Chest Pain Stated Complaint: CHEST DISCOMFORT Time Seen by Provider: 04/17/18 01:56 History Source: Patient Exam Limitations: Language Barrier Past History - Past Medical History Allergies/Adverse Reactions: Allergies Allergy/AdvReac Type Severity Reaction Status Date / Time aspirin Allergy Severe "NERVOUS" Verified 04/17/18 01:39 morphine Allergy Severe "ANXIETY-DE Verified 04/17/18 01:39 SPERATION" Home Medications: Ambulatory Orders Amlodipine Besylate 5 mg PO DAILY 11/06/17 Divalproex Sodium [Depakote] 500 mg PO BID 11/06/17 Famotidine 20 mg PO BID 11/06/17 Lisinopril [Prinivil] 5 mg PO DAILY #30 tablet 11/07/17 Escitalopram Oxalate [Lexapro -] 10 mg PO DAILY 04/13/18 Metoprolol Succinate [Toprol Xl] 25 mg PO DAILY 04/13/18 Mirtazapine 15 mg PO HS 04/13/18 Quetiapine Fumarate [Seroquel -] 25 mg PO DAILY 04/13/18 Anemia: Yes Asthma: No Cancer: No Cardiac Disorders: Yes (Chest pain) 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, baseline confusion and dizziness) COPD: Yes CHF: No DVT: No Dementia: No Diabetes: Yes GI Disorders: Yes (gerd, gastric ulcer, dysphagia) Disorders: Yes (kidney stone in the past) HTN: Yes Hypercholesterolemia: Yes Liver Disease: No Psychiatric Problems: Yes (ANXIETY DEPRESSION) Seizures: Yes (S/P craniotomy for benign tumor - on Depakote for seizure prophylaxis) Thyroid Disease: No - Surgical History Abdominal Surgery: Yes Appendectomy: No Cardiac Surgery: No Cholecystectomy: Yes Lung Surgery: No Neurologic Surgery: Yes (removal left meningioma, craniotomy) Orthopedic Surgery: Yes (bilat knee replacement) - Immunization History Td Vaccination: Yes TDAP Vaccination: No Immunization Up to Date: Yes - Suicide/Smoking/Psychosocial Hx Smoking Status: No Smoking History: Never smoked Have you smoked in the past 12 months: No Number of Cigarettes Smoked Daily: 0 Cigars Per Day: 0 Information on smoking cessation initiated: Yes Hx Alcohol Use: No Drug/Substance Use Hx: No Substance Use Type: None Hx Substance Use Treatment: No Cardiac Specific PMH - Complaint Specific PMHX Pacemaker: No *Physical Exam - Vital Signs Last Vital Signs Temp Pulse Resp BP Pulse Ox 97.8 F 84 16 165/67 94 L 04/17/18 03:46 04/17/18 03:46 04/17/18 03:46 04/17/18 03:46 04/17/18 03:46 - Physical Exam General Appearance: No: Apparent Distress Respiratory/Chest: positive: Chest Tender (+Reproducible L sided chest pain), Lungs Clear, Normal Breath Sounds. negative: Respiratory Distress Cardiovascular: positive: Regular Rhythm, Regular Rate, S1, S2. negative: Murmur Gastrointestinal/Abdominal: positive: Normal Bowel Sounds, Soft. negative: Tender, Distended, Guarding, Rebound Integumentary: positive: Normal Color Neurologic: positive: Alert, Normal Mood/Affect Moderate Sedation - Procedure Monitoring Vital Signs: Procedure Monitoring Vital Signs Temperature 97.8 F 04/17/18 03:46 Pulse Rate 84 04/17/18 03:46 Respiratory Rate 16 04/17/18 03:46 Blood Pressure 165/67 04/17/18 03:46 O2 Sat by Pulse Oximetry (%) 94 L 04/17/18 03:46 ED Treatment Course - Medications Given in the ED: ED Medications Discontinued Medications Generic Name Dose Route Start Last Admin Trade Name Freq PRN Reason Stop Dose Admin Acetaminophen 650 mg 04/17/18 02:22 04/17/18 02:49 Tylenol - PO 04/17/18 02:23 650 mg ONCE ONE Administration Medical Decision Making - Medical Decision Making 72 y/o F hx COPD, HTN, HLD, CVA, chronic chest pain presents to ED c/o L sided chest pain and headache. Patient with frequent visits to ED for same complaint and was just recently seen yesterday. Patient requesting to get Tylenol as it helps with pain. Of note, patient was recently admitted to hospital and seen by cardiology and neurology on 04/12/18. Patient was cleared from cardiac viewpoint ; she also had recent stress test done 05/2017 which was negative. Denies fever, sob, abd pain, n/v, dizziness, palpitations. EKG done here shows NSR at 82 bpm, no ST-T changes Given recent cardiac clearance and negative stress test, less suspicious for ACS Likely MSK Patient given Tylenol 04/17/18 03:36 *DC/Admit/Observation/Transfer Diagnosis at time of Disposition: Musculoskeletal chest pain - Discharge Dispostion Disposition: HOME Condition at time of disposition: Stable Decision to Admit order: No - Referrals Referrals: Waldo Mabry MD [Primary Care Provider] - 2 Days - Patient Instructions Printed Discharge Instructions: DI for Chest Pain Print Language: TURKISH - Post Discharge Activity
[2018-04-17 03:52] VITALS: BP 165/67; PULSE 84; TEMP 97.8
--- NOTE | 2018-04-17 13:59 | EKG ---
Test Reason : Blood Pressure : / mmHG Vent. Rate : 082 BPM Atrial Rate : 082 BPM P-R Int : 152 ms QRS Dur : 084 ms QT Int : 386 ms P-R-T Axes : 041 -06 030 degrees QTc Int : 450 ms NORMAL SINUS RHYTHM NORMAL ECG WHEN COMPARED WITH ECG OF 16-APR-2018 08:31, NO SIGNIFICANT CHANGE WAS FOUND Confirmed by MD Dominguez Daniel ([id number]) on 04/17/2018 1:59:08 PM Referred By: Confirmed By:Kirit Dominguez MD
== END 2018-04-17 05:24 | disposition home or self-care (01) ==
LOC: JER 01:19
DX: R07.89 Other chest pain (principal); D64.9 Anemia, unspecified; J44.9 Chronic obstructive pulmonary disease, unspecified; I10 Essential (primary) hypertension; E11.9 Type 2 diabetes mellitus without complications; E78.00 Pure hypercholesterolemia, unspecified; F41.8 Other specified anxiety disorders; F32.9 Major depressive disorder, single episode, unspecified; I69.810 Attention and concentration deficit following other cerebrovascular disease; I69.893 Ataxia following other cerebrovascular disease; Z87.442 Personal history of urinary calculi; Z87.19 Personal history of other diseases of the digestive system; Z86.011 Personal history of benign neoplasm of the brain; Z96.653 Presence of artificial knee joint, bilateral; Z88.8 Allergy status to other drugs, medicaments and biological substances
CPT/HCPCS: 93005; 93010; 99282-25

== ENCOUNTER 2018-04-18 23:20 | Emergency (ER) | payer OTHER ==
[2018-04-18 23:32] VITALS: BP 141/66; PULSE 104; TEMP 98.7; BMI 30.1
[2018-04-19] MEDS ORDERED: ACETAMINOPHEN 325 MG TABLET (FP) PO ONE ×2 (01:33→03:42)
[2018-04-19] MEDS ORDERED: ACETAMINOPHEN 325 MG TABLET (FP) ONE ×2 (01:48→04:05)
--- NOTE | 2018-04-19 01:49 | PDOC ---
*Physical Exam - Vital Signs Last Vital Signs Temp Pulse Resp BP Pulse Ox 98.7 F 104 H 19 141/66 96 04/18/18 23:30 04/18/18 23:30 04/18/18 23:30 04/18/18 23:30 04/18/18 23:30 Medical Decision Making - Medical Decision Making 04/19/18 01:48 Patient seen by the advanced practice provider under my direct supervision. Ancillary testing reviewed as necessary. I agree with plan as outlined by the advanced practice provider. *DC/Admit/Observation/Transfer Diagnosis at time of Disposition: Anxiety - Referrals Referrals: Waldo Mabry MD [Primary Care Provider] - - Patient Instructions - Post Discharge Activity
--- NOTE | 2018-04-19 02:42 | PDOC ---
History of Present Illness - General Chief Complaint: Chest Pain Stated Complaint: CHEST PAIN Time Seen by Provider: 04/19/18 01:33 History Source: Patient Exam Limitations: Language Barrier Past History - Past Medical History Allergies/Adverse Reactions: Allergies Allergy/AdvReac Type Severity Reaction Status Date / Time aspirin Allergy Severe "NERVOUS" Verified 04/18/18 23:32 morphine Allergy Severe "ANXIETY-DE Verified 04/18/18 23:32 SPERATION" Home Medications: Ambulatory Orders Amlodipine Besylate 5 mg PO DAILY 11/06/17 Divalproex Sodium [Depakote] 500 mg PO BID 11/06/17 Famotidine 20 mg PO BID 11/06/17 Lisinopril [Prinivil] 5 mg PO DAILY #30 tablet 11/07/17 Escitalopram Oxalate [Lexapro -] 10 mg PO DAILY 04/13/18 Metoprolol Succinate [Toprol Xl] 25 mg PO DAILY 04/13/18 Mirtazapine 15 mg PO HS 04/13/18 Quetiapine Fumarate [Seroquel -] 25 mg PO DAILY 04/13/18 Anemia: Yes Asthma: No Cancer: No Cardiac Disorders: Yes (Chest pain) 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, baseline confusion and dizziness) COPD: Yes CHF: No DVT: No Dementia: No Diabetes: Yes GI Disorders: Yes (gerd, gastric ulcer, dysphagia) Disorders: Yes (kidney stone in the past) HTN: Yes Hypercholesterolemia: Yes Liver Disease: No Psychiatric Problems: Yes (ANXIETY DEPRESSION) Seizures: Yes (S/P craniotomy for benign tumor - on Depakote for seizure prophylaxis) Thyroid Disease: No - Surgical History Abdominal Surgery: Yes Appendectomy: No Cardiac Surgery: No Cholecystectomy: Yes Lung Surgery: No Neurologic Surgery: Yes (removal left meningioma, craniotomy) Orthopedic Surgery: Yes (bilat knee replacement) - Immunization History Td Vaccination: Yes TDAP Vaccination: No Immunization Up to Date: Yes - Suicide/Smoking/Psychosocial Hx Smoking Status: No Smoking History: Never smoked Have you smoked in the past 12 months: No Number of Cigarettes Smoked Daily: 0 Cigars Per Day: 0 Information on smoking cessation initiated: No Hx Alcohol Use: No Drug/Substance Use Hx: No Substance Use Type: None Hx Substance Use Treatment: No *Physical Exam - Vital Signs Last Vital Signs Temp Pulse Resp BP Pulse Ox 98.7 F 104 H 19 141/66 96 04/18/18 23:30 04/18/18 23:30 04/18/18 23:30 04/18/18 23:30 04/18/18 23:30 - Physical Exam General Appearance: No: Apparent Distress Respiratory/Chest: positive: Chest Tender (along L chest wall), Lungs Clear, Normal Breath Sounds. negative: Respiratory Distress Cardiovascular: positive: Regular Rhythm, Regular Rate, S1, S2. negative: Murmur Gastrointestinal/Abdominal: positive: Normal Bowel Sounds, Soft. negative: Tender, Distended, Guarding, Rebound Integumentary: positive: Normal Color Neurologic: positive: Alert, Normal Mood/Affect Moderate Sedation - Procedure Monitoring Vital Signs: Procedure Monitoring Vital Signs Temperature 98.7 F 04/18/18 23:30 Pulse Rate 104 H 04/18/18 23:30 Respiratory Rate 19 04/18/18 23:30 Blood Pressure 141/66 04/18/18 23:30 O2 Sat by Pulse Oximetry (%) 96 04/18/18 23:30 ED Treatment Course - Medications Given in the ED: ED Medications Discontinued Medications Generic Name Dose Route Start Last Admin Trade Name Freq PRN Reason Stop Dose Admin Acetaminophen 650 mg 04/19/18 01:33 04/19/18 01:50 Tylenol - PO 04/19/18 01:34 650 mg ONCE ONE Administration Medical Decision Making - Medical Decision Making 72 y/o F hx COPD, HTN, HLD, CVA, chronic chest pain presents to ED c/o L sided chest pain and headache. Patient with frequent visits to ED for same complaint and was just recently seen 2 days ago. Patient requesting to get Tylenol as it helps with pain. Of note, patient was recently admitted to hospital and seen by cardiology and neurology on 04/12/18. Patient was cleared from cardiac viewpoint ; she also had recent stress test done 05/2017 which was negative. Denies fever, sob, abd pain, n/v, dizziness, palpitations. EKG done here shows 91 bpm, no ST-T changes Given recent cardiac clearance and negative stress test, less suspicious for ACS Likely MSK Patient given Tylenol 04/19/18 02:40 *DC/Admit/Observation/Transfer Diagnosis at time of Disposition: Chest pain Qualifiers: Chest pain type: unspecified Qualified Code(s): R07.9 - Chest pain, unspecified - Discharge Dispostion Disposition: HOME Condition at time of disposition: Stable Decision to Admit order: No - Referrals Referrals: Waldo Mabry MD [Primary Care Provider] - 2 Days - Patient Instructions Printed Discharge Instructions: DI for Chest Pain - Post Discharge Activity
--- NOTE | 2018-04-21 09:52 | EKG ---
Test Reason : Blood Pressure : / mmHG Vent. Rate : 091 BPM Atrial Rate : 091 BPM P-R Int : 190 ms QRS Dur : 072 ms QT Int : 366 ms P-R-T Axes : 038 -11 031 degrees QTc Int : 450 ms NORMAL SINUS RHYTHM NORMAL ECG WHEN COMPARED WITH ECG OF 17-APR-2018 02:26, NO SIGNIFICANT CHANGE WAS FOUND Confirmed by TERENCE GARCIA MD ([id number]) on 04/21/2018 9:52:16 AM Referred By: Confirmed By:TERENCE GARCIA MD
== END 2018-04-19 05:44 | disposition home or self-care (01) ==
LOC: JER 23:20
DX: F41.9 Anxiety disorder, unspecified (principal); R07.89 Other chest pain; D64.9 Anemia, unspecified; J44.9 Chronic obstructive pulmonary disease, unspecified; I10 Essential (primary) hypertension; E11.9 Type 2 diabetes mellitus without complications; E78.00 Pure hypercholesterolemia, unspecified; F41.8 Other specified anxiety disorders; F32.9 Major depressive disorder, single episode, unspecified; I69.893 Ataxia following other cerebrovascular disease; I69.810 Attention and concentration deficit following other cerebrovascular disease; Z86.011 Personal history of benign neoplasm of the brain; Z87.19 Personal history of other diseases of the digestive system; Z87.442 Personal history of urinary calculi; Z86.69 Personal history of other diseases of the nervous system and sense organs; Z96.653 Presence of artificial knee joint, bilateral
CPT/HCPCS: 93005; 93010; 99281-25

== ENCOUNTER 2018-04-21 19:12 | Emergency (ER) | payer OTHER ==
[2018-04-21 19:19] VITALS: BP 115/62; PULSE 104; TEMP 97.9; BMI 31.2
--- NOTE | 2018-04-21 20:30 | PDOC ---
History of Present Illness - General Chief Complaint: Chest Pain Stated Complaint: CHEST PAIN Time Seen by Provider: 04/21/18 20:20 History Source: Patient, Old Records Exam Limitations: No Limitations - History of Present Illness Initial Comments: 04/21/18 20:29 HISTORY OF PRESENT ILLNESS: This 72-year-old woman well-known to this emergency Department with history of chronic chest pain, CVA, COPD, GERD, PUD, hyperlipidemia, hypertension, seizures who presents emergency department for evaluation of her chronic chest pain and headache. Patient states this is the usual pain for which she seeks medical care. She states she has taken Tylenol prior to arrival. She denies any shortness of breath, nausea, vomiting, dizziness, abdominal pain, dysuria, hematuria, rectal bleeding. No recent travel or sick contacts. PAST MEDICAL HISTORY: see HPI SURGICAL HISTORY: See HPI ALLERGIES: ASA, MSO4 REVIEW OF SYSTEMS General/Constitutional: Denies fever or chills. Denies weakness, weight change. HEENT: Denies change in vision. Denies ear pain or discharge. Denies sore throat. Cardiovascular: Left sided chest pain. Denies shortness of breath. Respiratory: Denies cough, wheezing, or hemoptysis. Gastrointestinal: Denies nausea, vomiting, diarrhea or constipation. Denies rectal bleeding. Genitourinary: Denies dysuria, frequency, or change in urination. Musculoskeletal: Denies joint or muscle swelling or pain. Denies neck or back pain. Skin and breasts: Denies rash or easy bruising. Neurologic: Fontal headache. Denies vertigo, loss of consciousness, or loss of sensation. Psychiatric: Denies depression or anxiety. Endocrine: Denies increased thirst. Denies abnormal weight change. Hematologic/Lymphatic: Denies anemia, easy bleeding, or history of blood clots. Allergic/Immunologic: Denies hives or skin allergy. Denies latex allergy. PHYSICAL EXAM General Appearance: Well-appearing, appropriately dressed. No apparent distress , no intoxication. HEENT: EOMI, PERRLA, normal ENT inspection, normal voice, TMs normal, pharynx normal. No conjunctival pallor. No photophobia, scleral icterus. Neck: Supple. Trachea midline. No tenderness, rigidity, carotid bruit, stridor , lymphadenopathy, or thyromegaly. Respiratory/Chest: Lungs CTAB. No shortness of breath, respiratory distress, accessory muscle use. No crackles, rales, rhonchi, stridor, wheezing, dullness. Chest TTP from 3rd ICS to 7th ICS on left side. Cardiovascular: RRR. S1, S2. No JVD, murmur, bradycardia, tachycardia. Vascular Pulses: Dorsalis-Pedis (R): 2+, Dorsalis-Pedis (L): 2+ Gastrointestinal/Abdominal: Normal bowel sounds. Abdomen soft, non-distended. No tenderness or rebound tenderness. No organomegaly, pulsatile mass, guarding, hernia, hepatomegaly, splenomegaly. Lymphatic: No adenopathy, tenderness. Musculoskeletal/Extremities: Normal inspection. FROM of all extremities, normal capillary refill. Pelvis Stable. No CVA tenderness. No tenderness to extremities, pedal edema, swelling, erythema or deformity. Integumentary: Appropriate color, dry, warm. 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 Fully oriented, alert. Appropriate mood/affect. Motor strength 5/5. No appreciable EOM palsy, facial droop or sensory deficit. Past History - Past Medical History Allergies/Adverse Reactions: Allergies Allergy/AdvReac Type Severity Reaction Status Date / Time aspirin Allergy Severe "NERVOUS" Verified 04/21/18 19:19 morphine Allergy Severe "ANXIETY-DE Verified 04/21/18 19:19 SPERATION" Home Medications: Ambulatory Orders Amlodipine Besylate 5 mg PO DAILY 11/06/17 Divalproex Sodium [Depakote] 500 mg PO BID 11/06/17 Famotidine 20 mg PO BID 11/06/17 Lisinopril [Prinivil] 5 mg PO DAILY #30 tablet 11/07/17 Escitalopram Oxalate [Lexapro -] 10 mg PO DAILY 04/13/18 Metoprolol Succinate [Toprol Xl] 25 mg PO DAILY 04/13/18 Mirtazapine 15 mg PO HS 04/13/18 Quetiapine Fumarate [Seroquel -] 25 mg PO DAILY 04/13/18 Anemia: Yes Asthma: No Cancer: No Cardiac Disorders: Yes (Chest pain) 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, baseline confusion and dizziness) COPD: Yes CHF: No DVT: No Dementia: No Diabetes: Yes GI Disorders: Yes (gerd, gastric ulcer, dysphagia) Disorders: Yes (kidney stone in the past) HTN: Yes Hypercholesterolemia: Yes Liver Disease: No Psychiatric Problems: Yes (ANXIETY DEPRESSION) Seizures: Yes (S/P craniotomy for benign tumor - on Depakote for seizure prophylaxis) Thyroid Disease: No - Surgical History Abdominal Surgery: Yes Appendectomy: No Cardiac Surgery: No Cholecystectomy: Yes Lung Surgery: No Neurologic Surgery: Yes (removal left meningioma, craniotomy) Orthopedic Surgery: Yes (bilat knee replacement) - Immunization History Td Vaccination: Yes TDAP Vaccination: No Immunization Up to Date: Yes - Suicide/Smoking/Psychosocial Hx Smoking Status: No Smoking History: Never smoked Have you smoked in the past 12 months: No Number of Cigarettes Smoked Daily: 0 Cigars Per Day: 0 Hx Alcohol Use: No Drug/Substance Use Hx: No Substance Use Type: None Hx Substance Use Treatment: No *Physical Exam - Vital Signs Last Vital Signs Temp Pulse Resp BP Pulse Ox 97.9 F 104 H 20 115/62 95 04/21/18 19:16 04/21/18 19:16 04/21/18 19:16 04/21/18 19:16 04/21/18 19:16 Moderate Sedation - Procedure Monitoring Vital Signs: Procedure Monitoring Vital Signs Temperature 97.9 F 04/21/18 19:16 Pulse Rate 104 H 04/21/18 19:16 Respiratory Rate 20 04/21/18 19:16 Blood Pressure 115/62 04/21/18 19:16 O2 Sat by Pulse Oximetry (%) 95 04/21/18 19:16 ED Treatment Course - LABORATORY CBC & Chemistry Diagram: 04/21/18 21:26 Medical Decision Making - Medical Decision Making 04/21/18 20:30 A/P: 72-year-old woman with acute on chronic chest pain and headache Patient was admitted on 04/12 for similar symptoms had a negative CT at that time. Physical exam is consistent with her usual musculoskeletal chest pain. Patient took Tylenol prior to coming to emergency department BMP, cardiac profile, EKG, reassess Likely discharge 04/21/18 22:50 Laboratory testing is unremarkable. EKG sinus rhythm rate of 84. Normal intervals present. No ischemic changes noted. No change from previous EKGs. Discharge home *DC/Admit/Observation/Transfer Diagnosis at time of Disposition: Atypical chest pain Chronic headache Qualifiers: Headache type: unspecified Intractability: not intractable Qualified Code(s): R51 - Headache - Discharge Dispostion Disposition: HOME Condition at time of disposition: Fair Decision to Admit order: No - Referrals - Patient Instructions Additional Instructions: Return to ER for any concerns. - Post Discharge Activity
--- NOTE | 2018-04-21 20:39 | PDOC ---
*Physical Exam - Vital Signs Last Vital Signs Temp Pulse Resp BP Pulse Ox 97.9 F 104 H 20 115/62 95 04/21/18 19:16 04/21/18 19:16 04/21/18 19:16 04/21/18 19:16 04/21/18 19:16 ED Treatment Course - LABORATORY CBC & Chemistry Diagram: 04/21/18 21:26 Medical Decision Making - Medical Decision Making 04/21/18 20:39 Pt seen by the Advanced Practice Provider under my direct supervision Ancillary studies reviewed I agree with plan as outlined by the Advanced Practice Provider LARA [place] *DC/Admit/Observation/Transfer Diagnosis at time of Disposition: Atypical chest pain, Chronic headache - Discharge Dispostion Disposition: HOME Condition at time of disposition: Fair - Referrals - Patient Instructions Additional Instructions: Return to ER for any concerns. - Post Discharge Activity
[2018-04-21 22:07] LABS: ANION GAP 4 MMOL/L (8-16); BLOOD UREA NITROGEN 18 mg/dL (7-18); CALCIUM 8.6 mg/dL (8.5-10.1); CHLORIDE 106 mmol/L (98-107); CO2 30 mmol/L (21-32); CREATININE 0.7 mg/dL (0.55-1.3); GLUCOSE,RANDOM 147 mg/dL (74-106); POTASSIUM 4.3 mmol/L (3.5-5.1); SODIUM 140 mmol/L (136-145)
--- NOTE | 2018-04-22 11:50 | EKG ---
Test Reason : Blood Pressure : / mmHG Vent. Rate : 084 BPM Atrial Rate : 084 BPM P-R Int : 156 ms QRS Dur : 072 ms QT Int : 368 ms P-R-T Axes : 055 008 053 degrees QTc Int : 434 ms NORMAL SINUS RHYTHM NORMAL ECG WHEN COMPARED WITH ECG OF 18-APR-2018 23:36, NO SIGNIFICANT CHANGE WAS FOUND Confirmed by TERENCE GARCIA MD ([id number]) on 04/22/2018 11:50:15 AM Referred By: Confirmed By:TERENCE GARCIA MD
--- NOTE | 2018-04-23 10:42 | EKG ---
Test Reason : Blood Pressure : / mmHG Vent. Rate : 084 BPM Atrial Rate : 084 BPM P-R Int : 158 ms QRS Dur : 074 ms QT Int : 374 ms P-R-T Axes : 041 004 021 degrees QTc Int : 441 ms NORMAL SINUS RHYTHM NORMAL ECG WHEN COMPARED WITH ECG OF 18-APR-2018 23:36, NO SIGNIFICANT CHANGE WAS FOUND Confirmed by J LUIS POWELL MD ([id number]) on 04/23/2018 10:42:22 AM Referred By: Confirmed By:J LUIS POWELL MD
== END 2018-04-21 23:42 | disposition home or self-care (01) ==
LOC: JER 19:12
DX: R07.89 Other chest pain (principal); R51 Headache; J44.9 Chronic obstructive pulmonary disease, unspecified; I10 Essential (primary) hypertension; E11.9 Type 2 diabetes mellitus without complications; E78.00 Pure hypercholesterolemia, unspecified; F41.8 Other specified anxiety disorders; F32.9 Major depressive disorder, single episode, unspecified; I69.893 Ataxia following other cerebrovascular disease; I69.810 Attention and concentration deficit following other cerebrovascular disease; K21.9 Gastro-esophageal reflux disease without esophagitis; Z87.19 Personal history of other diseases of the digestive system; Z86.011 Personal history of benign neoplasm of the brain; Z87.442 Personal history of urinary calculi; Z96.653 Presence of artificial knee joint, bilateral
CPT/HCPCS: 36415; 80048; 82550; 84484; 93005; 93010; 99281-25

== ENCOUNTER 2018-04-23 06:44 | Emergency (ER) | payer OTHER ==
[2018-04-23 07:23] VITALS: BP 156/81; PULSE 98; TEMP 97.9; BMI 42.9
[2018-04-23] MEDS ORDERED: ACETAMINOPHEN 325 MG TABLET (FP) PO ONE (07:49)
--- NOTE | 2018-04-23 07:51 | PDOC ---
History of Present Illness - General History Source: Patient - History of Present Illness Presenting Symptoms: Chest Pain - General Chief Complaint: Chest Pain Stated Complaint: CHEST PAIN Time Seen by Provider: 04/23/18 07:48 Past History - Past Medical History Anemia: Yes Asthma: No Cancer: No Cardiac Disorders: Yes (Chest pain) 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, baseline confusion and dizziness) COPD: Yes CHF: No DVT: No Dementia: No Diabetes: Yes GI Disorders: Yes (gerd, gastric ulcer, dysphagia) Disorders: Yes (kidney stone in the past) HTN: Yes Hypercholesterolemia: Yes Liver Disease: No Psychiatric Problems: Yes (ANXIETY DEPRESSION) Seizures: Yes (S/P craniotomy for benign tumor - on Depakote for seizure prophylaxis) Thyroid Disease: No - Surgical History Abdominal Surgery: Yes Appendectomy: No Cardiac Surgery: No Cholecystectomy: Yes Lung Surgery: No Neurologic Surgery: Yes (removal left meningioma, craniotomy) Orthopedic Surgery: Yes (bilat knee replacement) - Immunization History Td Vaccination: Yes TDAP Vaccination: No Immunization Up to Date: Yes - Suicide/Smoking/Psychosocial Hx Smoking Status: No Smoking History: Never smoked Have you smoked in the past 12 months: No Number of Cigarettes Smoked Daily: 0 Cigars Per Day: 0 Information on smoking cessation initiated: No Hx Alcohol Use: No Drug/Substance Use Hx: No Substance Use Type: None Hx Substance Use Treatment: No - Past Medical History Allergies/Adverse Reactions: Allergies Allergy/AdvReac Type Severity Reaction Status Date / Time aspirin Allergy Severe "NERVOUS" Verified 04/21/18 19:19 morphine Allergy Severe "ANXIETY-DE Verified 04/21/18 19:19 SPERATION" Home Medications: Ambulatory Orders Amlodipine Besylate 5 mg PO DAILY 11/06/17 Divalproex Sodium [Depakote] 500 mg PO BID 11/06/17 Famotidine 20 mg PO BID 11/06/17 Lisinopril [Prinivil] 5 mg PO DAILY #30 tablet 11/07/17 Escitalopram Oxalate [Lexapro -] 10 mg PO DAILY 04/13/18 Metoprolol Succinate [Toprol Xl] 25 mg PO DAILY 04/13/18 Mirtazapine 15 mg PO HS 04/13/18 Quetiapine Fumarate [Seroquel -] 25 mg PO DAILY 04/13/18 Cardiac Specific PMH - Complaint Specific PMHX Pacemaker: No Review of Systems - Review of Systems Constitutional: No: Chills, Fever Respiratory: No: Shortness of Breath Cardiac (ROS): Yes: Chest Pain. No: Lightheadedness, Palpitations, Syncope ABD/GI: No: Nausea, Vomiting Neurological: Yes: Headache. No: Numbness, Tingling, Weakness, Dizziness *Physical Exam - Physical Exam General Appearance: Yes: Appropriately Dressed. No: Apparent Distress HEENT: positive: Normal Voice Neck: positive: Supple Respiratory/Chest: positive: Lungs Clear, Normal Breath Sounds. negative: Respiratory Distress Cardiovascular: positive: Regular Rate, S1, S2 Gastrointestinal/Abdominal: positive: Soft. negative: Tender Integumentary: positive: Dry, Warm Neurologic: positive: Alert, Normal Mood/Affect - Vital Signs Last Vital Signs Temp Pulse Resp BP Pulse Ox 97.9 F 98 H 16 156/81 98 04/23/18 07:20 04/23/18 07:20 04/23/18 07:20 04/23/18 07:20 04/23/18 07:20 - Procedure Monitoring Vital Signs: Procedure Monitoring Vital Signs Temperature 97.9 F 04/23/18 07:20 Pulse Rate 98 H 04/23/18 07:20 Respiratory Rate 16 04/23/18 07:20 Blood Pressure 156/81 04/23/18 07:20 O2 Sat by Pulse Oximetry (%) 98 04/23/18 07:20 - Medications Given in the ED: ED Medications Discontinued Medications Generic Name Dose Route Start Last Admin Trade Name Freq PRN Reason Stop Dose Admin Acetaminophen 650 mg 04/23/18 07:49 04/23/18 08:05 Tylenol - PO 04/23/18 07:50 650 mg ONCE ONE Administration Medical Decision Making - Medical Decision Making 04/23/18 07:49 72-year-old female, history of COPD, HTN, HLD, CVA, chronic chest pain for numerous ER visits and admissions for same, here with her usual left-sided chest pain. Pt also c/o her chronic GALLARDO. Of note, patient was admitted to [facility] recently and was ruled out for ACS. Echo also done and unremarkable. Per records , pt was seen by Dr. Barriga of cardiology at the time who reported that patient had recent cardiac workup with negative result. Chest pain thought to be possibly costochondritis. Admitting team also recommended mammogram and DEXA scan. Pt last seen for CP and GALLARDO 2 days ago and was r/o for ACS in ED. of note, pt had head CT 04/03 which was negative. No new sxs today. Pt reg tylenol which she does on every visit See exam Chronic CP Numerous encounters for same S/p recent admission and r/o ACS, seen by cards and dx w/ m/l MSK pain Was r/o for ACS in ER 2 days ago Well geoffrey and stable w/ clear chest/lungs -ekg -tylenol as req by pt -anticipate dc from ED GALLARDO Chronic s/p multiple ED visits for same including [address] head NAD w/ no focal neuro deficits -pain control in ED 04/23/18 10:35 EKG unremarkable as discussed with ED attending who agrees that there is no need for further eval in ED as patient was ruled out for ACS 2 days ago. Patient now reports that she does not want to go home even though she reports she is feeling better and that [employer] rep is home waiting for her. At this time, security was called to escort patient out of ER (Emily Fairchild) *DC/Admit/Observation/Transfer Diagnosis at time of Disposition: Chest pain Qualifiers: Chest pain type: unspecified Qualified Code(s): R07.9 - Chest pain, unspecified Headache Qualifiers: Headache type: unspecified Headache chronicity pattern: chronic headache Intractability: not intractable Qualified Code(s): R51 - Headache - Discharge Dispostion Disposition: HOME Condition at time of disposition: Stable - Referrals Referrals: Waldo Mabry MD [Primary Care Provider] - - Patient Instructions Printed Discharge Instructions: DI for Atypical Chest Pain Additional Instructions: Please continue to follow-up with your PMD - Post Discharge Activity - Attestations Physician Attestion: I reviewed the case with the mid-level practitioner and agree with the mid- level practitioner's assessment, diagnosis and disposition. (Ambika Peralta)
[2018-04-23] MEDS ORDERED: ACETAMINOPHEN 325 MG TABLET (FP) ONE (08:02)
--- NOTE | 2018-04-23 10:30 | EKG ---
Test Reason : Blood Pressure : / mmHG Vent. Rate : 088 BPM Atrial Rate : 088 BPM P-R Int : 162 ms QRS Dur : 074 ms QT Int : 378 ms P-R-T Axes : 053 005 033 degrees QTc Int : 457 ms NORMAL SINUS RHYTHM NORMAL ECG WHEN COMPARED WITH ECG OF 21-APR-2018 22:45, NO SIGNIFICANT CHANGE WAS FOUND Confirmed by J LUIS POWELL MD ([id number]) on 04/23/2018 10:30:20 AM Referred By: Confirmed By:J LUIS POWELL MD
== END 2018-04-23 10:58 | disposition home or self-care (01) ==
LOC: JER 06:44
DX: R07.89 Other chest pain (principal); R51 Headache; G89.29 Other chronic pain; D64.9 Anemia, unspecified; J44.9 Chronic obstructive pulmonary disease, unspecified; I10 Essential (primary) hypertension; E11.9 Type 2 diabetes mellitus without complications; E78.00 Pure hypercholesterolemia, unspecified; F41.8 Other specified anxiety disorders; F32.9 Major depressive disorder, single episode, unspecified; I69.893 Ataxia following other cerebrovascular disease; I69.810 Attention and concentration deficit following other cerebrovascular disease; Z87.442 Personal history of urinary calculi; Z87.19 Personal history of other diseases of the digestive system; Z86.011 Personal history of benign neoplasm of the brain; Z96.653 Presence of artificial knee joint, bilateral; Z88.5 Allergy status to narcotic agent; Z88.6 Allergy status to analgesic agent
CPT/HCPCS: 93005; 93010; 99282-25

== ENCOUNTER 2018-04-23 19:17 | Emergency (ER) | payer OTHER ==
[2018-04-23] MEDS ORDERED: ACETAMINOPHEN 325 MG TABLET (FP) PO ONE (19:23)
--- NOTE | 2018-04-23 19:23 | PDOC ---
Rapid Medical Evaluation Time Seen by Provider: 04/23/18 19:22 Medical Evaluation: Allergies Allergy/AdvReac Type Severity Reaction Status Date / Time aspirin Allergy Severe "NERVOUS" Verified 04/21/18 19:19 morphine Allergy Severe "ANXIETY-DE Verified 04/21/18 19:19 SPERATION" 04/23/18 19:22 I have performed a brief in-person evaluation of this patient. The patient presents with a chief complaint of: chest pain. States chronic chest pain exacerbation with shortness of breath. Patient requesting tylenol Pertinent physical exam findings: nad even and unlabored non tender chest I have ordered the following: ekg, analgesia The patient will proceed to the ED for further evaluation. Discharge Disposition - Diagnosis Atypical chest pain - Referrals Referrals: Waldo Mabry MD [Primary Care Provider] - - Patient Instructions - Post Discharge Activity
[2018-04-23 19:24] VITALS: BP 155/81; PULSE 90; TEMP 98; BMI 33.2
[2018-04-23] MEDS ORDERED: ACETAMINOPHEN 325 MG TABLET (FP) ONE (19:26)
--- NOTE | 2018-04-24 00:22 | PDOC ---
History of Present Illness - General Chief Complaint: Chest Pain Stated Complaint: CHEST PAIN Time Seen by Provider: 04/23/18 19:22 History Source: Patient - History of Present Illness Initial Comments: 04/24/18 02:10 72-year-old woman well-known to this emergency Department with history of chronic chest pain, CVA, COPD, GERD, PUD, hyperlipidemia, hypertension, anxiety , seizures who presents emergency department for evaluation of her chronic chest pain and headache. patient alert awake Past History - Past Medical History Allergies/Adverse Reactions: Allergies Allergy/AdvReac Type Severity Reaction Status Date / Time aspirin Allergy Severe "NERVOUS" Verified 04/28/18 08:50 morphine Allergy Severe "ANXIETY-DE Verified 04/28/18 08:50 SPERATION" Home Medications: Ambulatory Orders Amlodipine Besylate 5 mg PO DAILY 11/06/17 Divalproex Sodium [Depakote] 500 mg PO BID 11/06/17 Famotidine 20 mg PO BID 11/06/17 Lisinopril [Prinivil] 5 mg PO DAILY #30 tablet 11/07/17 Escitalopram Oxalate [Lexapro -] 10 mg PO DAILY 04/13/18 Metoprolol Succinate [Toprol Xl] 25 mg PO DAILY 04/13/18 Mirtazapine 15 mg PO HS 04/13/18 Quetiapine Fumarate [Seroquel -] 25 mg PO DAILY 04/13/18 Anemia: Yes Asthma: No Cancer: No Cardiac Disorders: Yes (Chest pain) 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, baseline confusion and dizziness) COPD: Yes CHF: No DVT: No Dementia: No Diabetes: Yes GI Disorders: Yes (gerd, gastric ulcer, dysphagia) Disorders: Yes (kidney stone in the past) HTN: Yes Hypercholesterolemia: Yes Liver Disease: No Psychiatric Problems: Yes (ANXIETY DEPRESSION) Seizures: Yes (S/P craniotomy for benign tumor - on Depakote for seizure prophylaxis) Thyroid Disease: No - Surgical History Abdominal Surgery: Yes Appendectomy: No Cardiac Surgery: No Cholecystectomy: Yes Lung Surgery: No Neurologic Surgery: Yes (removal left meningioma, craniotomy) Orthopedic Surgery: Yes (bilat knee replacement) - Immunization History Td Vaccination: Yes TDAP Vaccination: No Immunization Up to Date: Yes - Suicide/Smoking/Psychosocial Hx Smoking Status: No Smoking History: Never smoked Have you smoked in the past 12 months: No Number of Cigarettes Smoked Daily: 0 Cigars Per Day: 0 Information on smoking cessation initiated: No Hx Alcohol Use: No Drug/Substance Use Hx: No Substance Use Type: None Hx Substance Use Treatment: No Cardiac Specific PMH - Complaint Specific PMHX Pacemaker: No Review of Systems - Review of Systems Able to Perform ROS?: Yes Is the patient limited Burmese proficient: No Constitutional: No: Symptoms Reported, See HPI, Chills, Diaphoresis, Fever, Loss of Appetite, Malaise, Night Sweats, Weakness, Weight Stable, Unintentional Wgt. Loss, Unexplained wgt Loss, Other Cardiac (ROS): Yes: Chest Pain *Physical Exam - Vital Signs Last Vital Signs Temp Pulse Resp BP Pulse Ox 98.0 F 90 16 155/81 100 04/23/18 19:23 04/23/18 19:23 04/23/18 19:23 04/23/18 19:23 04/23/18 19:23 - Physical Exam General Appearance: Yes: Appropriately Dressed Respiratory/Chest: positive: Chest Tender (left breast), Lungs Clear, Normal Breath Sounds Cardiovascular: positive: Regular Rhythm, Regular Rate Heart Score/ECG Review - ECG Intrepretation Rhythm: Regular Rhythm Comment:: 04/24/18 02:11 NSR: 85 bpm Moderate Sedation - Procedure Monitoring Vital Signs: Procedure Monitoring Vital Signs Temperature 98.0 F 04/23/18 19:23 Pulse Rate 90 04/23/18 19:23 Respiratory Rate 16 04/23/18 19:23 Blood Pressure 155/81 04/23/18 19:23 O2 Sat by Pulse Oximetry (%) 100 04/23/18 19:23 ED Treatment Course - Medications Given in the ED: ED Medications Discontinued Medications Generic Name Dose Route Start Last Admin Trade Name Freq PRN Reason Stop Dose Admin Acetaminophen 650 mg 04/23/18 19:23 04/23/18 19:34 Tylenol - PO 04/23/18 19:24 650 mg ONCE ONE Administration Acetaminophen 650 mg 04/24/18 00:35 04/24/18 00:45 Tylenol - PO 04/24/18 00:36 650 mg ONCE ONE Administration Medical Decision Making - Medical Decision Making 04/24/18 02:12 A: chest pain P: EKG: no acute changes. NSR tylenol d/c home for outpatient cardiology *DC/Admit/Observation/Transfer Diagnosis at time of Disposition: Atypical chest pain - Discharge Dispostion Disposition: HOME - Referrals Referrals: Waldo Mabry MD [Primary Care Provider] - - Patient Instructions Printed Discharge Instructions: DI for Atypical Chest Pain Additional Instructions: Additional Instructions: * Please call your personal physician to report your Emergency Department visit and to report your progress, if any. * If there is no improvement in symptoms in 2 days call your physician. * Return to the Emergency Department for any worsening symptoms. - Post Discharge Activity
[2018-04-24] MEDS ORDERED: ACETAMINOPHEN 325 MG TABLET (FP) ONE (00:26)
[2018-04-24] MEDS ORDERED: ACETAMINOPHEN 325 MG TABLET (FP) PO ONE (00:35)
--- NOTE | 2018-04-24 17:16 | EKG ---
Test Reason : Blood Pressure : / mmHG Vent. Rate : 095 BPM Atrial Rate : 095 BPM P-R Int : 156 ms QRS Dur : 068 ms QT Int : 346 ms P-R-T Axes : 038 -10 030 degrees QTc Int : 434 ms NORMAL SINUS RHYTHM NORMAL ECG WHEN COMPARED WITH ECG OF 23-APR-2018 07:28, NO SIGNIFICANT CHANGE WAS FOUND Confirmed by MD NHUNG, MADELEINE ([id number]) on 04/24/2018 5:16:17 PM Referred By: Confirmed By:MADELEINE HOOKER MD
== END 2018-04-24 04:51 | disposition home or self-care (01) ==
LOC: JER 19:17
DX: R07.9 Chest pain, unspecified (principal); D64.9 Anemia, unspecified; I10 Essential (primary) hypertension; E11.9 Type 2 diabetes mellitus without complications; E78.00 Pure hypercholesterolemia, unspecified; J44.9 Chronic obstructive pulmonary disease, unspecified; F41.8 Other specified anxiety disorders; F32.9 Major depressive disorder, single episode, unspecified; I69.893 Ataxia following other cerebrovascular disease; I69.810 Attention and concentration deficit following other cerebrovascular disease; Z86.69 Personal history of other diseases of the nervous system and sense organs; Z86.011 Personal history of benign neoplasm of the brain; Z87.19 Personal history of other diseases of the digestive system; Z87.442 Personal history of urinary calculi; Z96.653 Presence of artificial knee joint, bilateral
CPT/HCPCS: 93005; 93010; 99282-25

== ENCOUNTER 2018-04-24 22:28 | Emergency (ER) | payer OTHER ==
[2018-04-24 22:35] VITALS: BP 142/77; PULSE 108; TEMP 98; BMI 33.2
[2018-04-25] MEDS ORDERED: ACETAMINOPHEN 325 MG TABLET (FP) ONE (02:10)
[2018-04-25] MEDS ORDERED: ACETAMINOPHEN 325 MG TABLET (FP) PO ONE (03:38)
--- NOTE | 2018-04-25 04:04 | PDOC ---
*Physical Exam - Vital Signs Last Vital Signs Temp Pulse Resp BP Pulse Ox 98.0 F 108 H 16 142/77 98 04/24/18 22:33 04/24/18 22:33 04/24/18 22:33 04/24/18 22:33 04/24/18 22:33 ED Treatment Course - Medications Given in the ED: ED Medications Discontinued Medications Generic Name Dose Route Start Last Admin Trade Name Freq PRN Reason Stop Dose Admin Acetaminophen 650 mg 04/25/18 03:38 04/25/18 03:38 Tylenol - PO 04/25/18 03:39 650 mg NOW ONE Administration Medical Decision Making - Medical Decision Making 04/25/18 04:04 Patient seen by the advanced practice provider under my direct supervision. Ancillary testing reviewed as necessary. I agree with plan as outlined by the advanced practice provider. *DC/Admit/Observation/Transfer Diagnosis at time of Disposition: Insomnia - Referrals Referrals: Waldo Mabry MD [Primary Care Provider] - - Patient Instructions - Post Discharge Activity
--- NOTE | 2018-04-25 04:26 | PDOC ---
History of Present Illness - General Chief Complaint: Chest Pain Stated Complaint: COLD Time Seen by Provider: 04/25/18 03:03 History Source: Patient Exam Limitations: Language Barrier Past History - Past Medical History Allergies/Adverse Reactions: Allergies Allergy/AdvReac Type Severity Reaction Status Date / Time aspirin Allergy Severe "NERVOUS" Verified 04/24/18 22:35 morphine Allergy Severe "ANXIETY-DE Verified 04/24/18 22:35 SPERATION" Home Medications: Ambulatory Orders Amlodipine Besylate 5 mg PO DAILY 11/06/17 Divalproex Sodium [Depakote] 500 mg PO BID 11/06/17 Famotidine 20 mg PO BID 11/06/17 Lisinopril [Prinivil] 5 mg PO DAILY #30 tablet 11/07/17 Escitalopram Oxalate [Lexapro -] 10 mg PO DAILY 04/13/18 Metoprolol Succinate [Toprol Xl] 25 mg PO DAILY 04/13/18 Mirtazapine 15 mg PO HS 04/13/18 Quetiapine Fumarate [Seroquel -] 25 mg PO DAILY 04/13/18 Anemia: Yes Asthma: No Cancer: No Cardiac Disorders: Yes (Chest pain) 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, baseline confusion and dizziness) COPD: Yes CHF: No DVT: No Dementia: No Diabetes: Yes GI Disorders: Yes (gerd, gastric ulcer, dysphagia) Disorders: Yes (kidney stone in the past) HTN: Yes Hypercholesterolemia: Yes Liver Disease: No Psychiatric Problems: Yes (ANXIETY DEPRESSION) Seizures: Yes (S/P craniotomy for benign tumor - on Depakote for seizure prophylaxis) Thyroid Disease: No - Surgical History Abdominal Surgery: Yes Appendectomy: No Cardiac Surgery: No Cholecystectomy: Yes Lung Surgery: No Neurologic Surgery: Yes (removal left meningioma, craniotomy) Orthopedic Surgery: Yes (bilat knee replacement) - Immunization History Td Vaccination: Yes TDAP Vaccination: No Immunization Up to Date: Yes - Suicide/Smoking/Psychosocial Hx Smoking Status: No Smoking History: Never smoked Have you smoked in the past 12 months: No Number of Cigarettes Smoked Daily: 0 Cigars Per Day: 0 Information on smoking cessation initiated: No Hx Alcohol Use: No Drug/Substance Use Hx: No Substance Use Type: None Hx Substance Use Treatment: No Cardiac Specific PMH - Complaint Specific PMHX Pacemaker: No *Physical Exam - Vital Signs Last Vital Signs Temp Pulse Resp BP Pulse Ox 98.0 F 108 H 16 142/77 98 04/24/18 22:33 04/24/18 22:33 04/24/18 22:33 04/24/18 22:33 04/24/18 22:33 - Physical Exam General Appearance: No: Apparent Distress Respiratory/Chest: positive: Lungs Clear, Normal Breath Sounds. negative: Respiratory Distress Cardiovascular: positive: Regular Rhythm, Regular Rate, S1, S2. negative: Murmur Gastrointestinal/Abdominal: positive: Normal Bowel Sounds, Soft. negative: Tender, Distended, Guarding, Rebound Extremity: negative: Pedal Edema, Calf Tenderness Neurologic: positive: Alert, Normal Mood/Affect Moderate Sedation - Procedure Monitoring Vital Signs: Procedure Monitoring Vital Signs Temperature 98.0 F 04/24/18 22:33 Pulse Rate 108 H 04/24/18 22:33 Respiratory Rate 16 04/24/18 22:33 Blood Pressure 142/77 04/24/18 22:33 O2 Sat by Pulse Oximetry (%) 98 04/24/18 22:33 ED Treatment Course - Medications Given in the ED: ED Medications Discontinued Medications Generic Name Dose Route Start Last Admin Trade Name Freq PRN Reason Stop Dose Admin Acetaminophen 650 mg 04/25/18 03:38 04/25/18 03:38 Tylenol - PO 04/25/18 03:39 650 mg NOW ONE Administration Medical Decision Making - Medical Decision Making 72 y/o F hx COPD, HTN, HLD, CVA, chronic chest pain presents to ED c/o L sided chest pain and headache. Patient with frequent visits to ED for same complaint Patient requesting to get Tylenol as it helps with pain. Of note, patient was recently admitted to hospital and seen by cardiology and neurology on 04/12/18. Patient was cleared from cardiac viewpoint; she also had recent stress test done 05/2017 which was negative. Denies fever, sob, abd pain, n/v, dizziness, palpitations. EKG done here shows NSR at 95 bpm, no ST-T changes Given recent cardiac clearance and negative stress test, less suspicious for ACS Likely MSK Patient given Tylenol 04/25/18 04:24 *DC/Admit/Observation/Transfer Diagnosis at time of Disposition: Chest pain Qualifiers: Chest pain type: other chest pain Qualified Code(s): R07.89 - Other chest pain ; R07.8 - Other chest pain - Discharge Dispostion Disposition: HOME Condition at time of disposition: Stable Decision to Admit order: No - Referrals Referrals: Waldo Mabry MD [Primary Care Provider] - 2 Days - Patient Instructions Printed Discharge Instructions: DI for Chest Pain - Post Discharge Activity
--- NOTE | 2018-04-25 11:07 | EKG ---
Test Reason : Blood Pressure : / mmHG Vent. Rate : 095 BPM Atrial Rate : 095 BPM P-R Int : 160 ms QRS Dur : 070 ms QT Int : 360 ms P-R-T Axes : 043 -02 028 degrees QTc Int : 452 ms NORMAL SINUS RHYTHM NORMAL ECG WHEN COMPARED WITH ECG OF 23-APR-2018 19:24, NO SIGNIFICANT CHANGE WAS FOUND Confirmed by ANNITA VENTURA MD ([id number]) on 04/25/2018 11:07:30 AM Referred By: Confirmed By:ANNITA VENTURA MD
== END 2018-04-25 07:09 | disposition home or self-care (01) ==
LOC: JER 22:28
DX: R07.9 Chest pain, unspecified (principal); D64.9 Anemia, unspecified; J44.9 Chronic obstructive pulmonary disease, unspecified; I10 Essential (primary) hypertension; E11.9 Type 2 diabetes mellitus without complications; E78.00 Pure hypercholesterolemia, unspecified; F41.8 Other specified anxiety disorders; F32.9 Major depressive disorder, single episode, unspecified; I69.810 Attention and concentration deficit following other cerebrovascular disease; I69.893 Ataxia following other cerebrovascular disease; Z87.442 Personal history of urinary calculi; Z86.011 Personal history of benign neoplasm of the brain; Z96.653 Presence of artificial knee joint, bilateral; Z87.19 Personal history of other diseases of the digestive system
CPT/HCPCS: 93005; 93010; 99281-25

== ENCOUNTER 2018-04-25 07:44 | Emergency (ER) | payer OTHER ==
--- NOTE | 2018-04-25 13:31 | PDOC ---
*Physical Exam - Physical Exam Comments: 04/25/18 13:30 Patient is a 72-year-old female who has been to this ER on numerous occasions for same complaint. Patient complains of chest discomfort related to severe anxiety. Patient expressed desire to be admitted into inpatient psych. Awaiting psychiatry evaluation. Medical Decision Making - Medical Decision Making 04/25/18 14:51 pt seen and evaluated by dr. ni. at this time there is no indication for inpt admission and no indication for 2 pc hold. will d/c with pmd f/u for medication adjustment. *DC/Admit/Observation/Transfer Diagnosis at time of Disposition: Anxiety disorder due to general medical condition with panic attack, Atypical chest pain - Discharge Dispostion Disposition: HOME Condition at time of disposition: Stable - Referrals Referrals: Taylor Ni MD [Staff Physician] - - Patient Instructions Printed Discharge Instructions: DI for Anxiety -- Adult, DI for Atypical Chest Pain Print Language: BAHRAINI - Post Discharge Activity
--- NOTE | 2018-04-25 14:57 | CON.PSY ---
Psychiatry Consult Chief Complaint: 72 year old female , a Patient of seen for Psych eval for capacity. she apparantly hasbeen coming yo Er complaininbg about chest pain and anxiety. She hasbeen on Lexapro , Remeron , Depakote , seroquel. patient's daughter 10 yrs ago. patient vehemently denies any suicidal ides or plans. Symptoms: reports: Anxiety, Panic Attacks - Previous Psychiatric Treatment Outpatient: Less than 6 mos ago Inpatient: None - Previous Substance Abuse Treatment Outpatient: None Inpatient: None - Reason for Previous Treatment Reason for Previous Treatment: Anxiety or Panic Disorder - Allergies Allergies: Allergies Allergy/AdvReac Type Severity Reaction Status Date / Time aspirin Allergy Severe "NERVOUS" Verified 04/25/18 07:47 morphine Allergy Severe "ANXIETY-DE Verified 04/25/18 07:47 SPERATION" - Current Living Status Usual Living Arrangement: Alone - Current Mental Status Evaluation Appearance: Well Groomed Attitude: Cooperative - Affect Affect: Constrictive Appropriateness: Appropriate to Content - Mood Mood: Anxious - Speech/Language Expressive: Coherent - Psychomotor Activity Psychomotor Activity: Normal - Thought Process Thought Process: Intact - Thought Content Hallucinations: Absent Delusions: Absent - Self Perception Self Perception: No Impairment - Cognition Attention: Alert Orientation: Time Memory, Immediate Recall: Intact Memory, Short Term: 3/3 Memory, Remote with Promptin/3 - Concentration Serial Sevens Intact: No Simple Calculations Intact: Yes - Abstraction Proverb Interpretation: Intact Judgement: Minimally Impaired - Insight Insight: Intact - Impulse Control Impulse Control: Good Control - Suicidal Ideation Suicidal Ideation: No - Homicidal Ideation Homicidal Ideation: No Assessment/Plan 1) Patient has the Mental capacity to make decisions at this time. 2)Continue with currant medications, and follow up hemalatha Petty. 3) No need for Psychiatric admission .
[2018-04-25 18:33] VITALS: BP 137/84; PULSE 81
== END 2018-04-25 19:06 | disposition home or self-care (01) ==
LOC: JER 07:44
DX: F41.9 Anxiety disorder, unspecified (principal); R07.89 Other chest pain
CPT/HCPCS: 99281-25

== ENCOUNTER 2018-04-26 10:55 | Emergency (ER) | payer OTHER ==
[2018-04-26 11:25] VITALS: BMI 29.2
--- NOTE | 2018-04-26 12:14 | PDOC ---
History of Present Illness - General Chief Complaint: Chest Pain Stated Complaint: CHEST PAIN Time Seen by Provider: 04/26/18 12:10 History Source: Patient, Old Records - History of Present Illness Initial Comments: 04/26/18 12:14 HISTORY OF PRESENT ILLNESS: This 72-year-old woman well-known to this emergency Department with history of chronic chest pain, CVA, COPD, GERD, PUD, hyperlipidemia, hypertension, seizures who presents emergency department for evaluation of her chronic chest pain and headache. Patient states this is the usual pain for which she seeks medical care. She states she has not taken any medications prior to arrival. She denies any shortness of breath, nausea, vomiting, dizziness, abdominal pain, dysuria, hematuria, rectal bleeding. No recent travel or sick contacts. PAST MEDICAL HISTORY: see HPI SURGICAL HISTORY: See HPI ALLERGIES: ASA, MSO4 REVIEW OF SYSTEMS General/Constitutional: Denies fever or chills. Denies weakness, weight change. HEENT: Denies change in vision. Denies ear pain or discharge. Denies sore throat. Cardiovascular: Left sided chest pain. Denies shortness of breath. Respiratory: Denies cough, wheezing, or hemoptysis. Gastrointestinal: Denies nausea, vomiting, diarrhea or constipation. Denies rectal bleeding. Genitourinary: Denies dysuria, frequency, or change in urination. Musculoskeletal: Denies joint or muscle swelling or pain. Denies neck or back pain. Skin and breasts: Denies rash or easy bruising. Neurologic: Fontal headache. Denies vertigo, loss of consciousness, or loss of sensation. Psychiatric: Denies depression or anxiety. Endocrine: Denies increased thirst. Denies abnormal weight change. Hematologic/Lymphatic: Denies anemia, easy bleeding, or history of blood clots. Allergic/Immunologic: Denies hives or skin allergy. Denies latex allergy. PHYSICAL EXAM General Appearance: Well-appearing, appropriately dressed. No apparent distress , no intoxication. HEENT: EOMI, PERRLA, normal ENT inspection, normal voice, TMs normal, pharynx normal. No conjunctival pallor. No photophobia, scleral icterus. Neck: Supple. Trachea midline. No tenderness, rigidity, carotid bruit, stridor , lymphadenopathy, or thyromegaly. Respiratory/Chest: Lungs CTAB. No shortness of breath, respiratory distress, accessory muscle use. No crackles, rales, rhonchi, stridor, wheezing, dullness. Chest TTP from 3rd ICS to 7th ICS on left side. Cardiovascular: RRR. S1, S2. No JVD, murmur, bradycardia, tachycardia. Vascular Pulses: Dorsalis-Pedis (R): 2+, Dorsalis-Pedis (L): 2+ Gastrointestinal/Abdominal: Normal bowel sounds. Abdomen soft, non-distended. No tenderness or rebound tenderness. No organomegaly, pulsatile mass, guarding, hernia, hepatomegaly, splenomegaly. Lymphatic: No adenopathy, tenderness. Musculoskeletal/Extremities: Normal inspection. FROM of all extremities, normal capillary refill. Pelvis Stable. No CVA tenderness. No tenderness to extremities, pedal edema, swelling, erythema or deformity. Integumentary: Appropriate color, dry, warm. No cyanosis, erythema, jaundice or rash Neurologic: associate professor of english II-XII intact. Fully oriented, alert. Appropriate mood/affect. Motor strength 5/5. No appreciable EOM palsy, facial droop or sensory deficit. Past History - Past Medical History Allergies/Adverse Reactions: Allergies Allergy/AdvReac Type Severity Reaction Status Date / Time aspirin Allergy Severe "NERVOUS" Verified 04/26/18 11:24 morphine Allergy Severe "ANXIETY-DE Verified 04/26/18 11:24 SPERATION" Home Medications: Ambulatory Orders Amlodipine Besylate 5 mg PO DAILY 11/06/17 Divalproex Sodium [Depakote] 500 mg PO BID 11/06/17 Famotidine 20 mg PO BID 11/06/17 Lisinopril [Prinivil] 5 mg PO DAILY #30 tablet 11/07/17 Escitalopram Oxalate [Lexapro -] 10 mg PO DAILY 04/13/18 Metoprolol Succinate [Toprol Xl] 25 mg PO DAILY 04/13/18 Mirtazapine 15 mg PO HS 04/13/18 Quetiapine Fumarate [Seroquel -] 25 mg PO DAILY 04/13/18 Anemia: Yes Asthma: No Cancer: No Cardiac Disorders: Yes (Chest pain) 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, baseline confusion and dizziness) COPD: Yes CHF: No DVT: No Dementia: No Diabetes: Yes GI Disorders: Yes (gerd, gastric ulcer, dysphagia) Disorders: Yes (kidney stone in the past) HTN: Yes Hypercholesterolemia: Yes Liver Disease: No Psychiatric Problems: Yes (ANXIETY DEPRESSION) Seizures: Yes (S/P craniotomy for benign tumor - on Depakote for seizure prophylaxis) Thyroid Disease: No - Surgical History Abdominal Surgery: Yes Appendectomy: No Cardiac Surgery: No Cholecystectomy: Yes Lung Surgery: No Neurologic Surgery: Yes (removal left meningioma, craniotomy) Orthopedic Surgery: Yes (bilat knee replacement) - Immunization History Td Vaccination: Yes TDAP Vaccination: No Immunization Up to Date: Yes - Suicide/Smoking/Psychosocial Hx Smoking Status: No Smoking History: Never smoked Have you smoked in the past 12 months: No Number of Cigarettes Smoked Daily: 0 Cigars Per Day: 0 Information on smoking cessation initiated: No Hx Alcohol Use: No Drug/Substance Use Hx: No Substance Use Type: None Hx Substance Use Treatment: No *Physical Exam - Vital Signs Last Vital Signs Temp Pulse Resp BP Pulse Ox 99.1 F 108 H 20 115/80 94 L 04/26/18 11:21 04/26/18 11:21 04/26/18 11:21 04/26/18 11:21 04/26/18 11:21 Moderate Sedation - Procedure Monitoring Vital Signs: Procedure Monitoring Vital Signs Temperature 99.1 F 04/26/18 11:21 Pulse Rate 108 H 04/26/18 11:21 Respiratory Rate 20 04/26/18 11:21 Blood Pressure 115/80 04/26/18 11:21 O2 Sat by Pulse Oximetry (%) 94 L 04/26/18 11:21 ED Treatment Course - LABORATORY CBC & Chemistry Diagram: 04/26/18 12:26 Medical Decision Making - Medical Decision Making 04/26/18 12:39 A/P: 72-year-old woman well-known to this emergency Department with chest pain, headache SpO2 noted to be 94%. Lungs clear to auscultation bilaterally BMP Cardiac profile Chest x-ray EKG Reassess 04/26/18 14:30 Attempted to contact patient's primary doctor Dr. Franco. At this time he is on medical leave for the next 3 weeks. Message left for his covering physician Dr. Domingo to call back to help formulate a plan going forward to decrease Billie Sumner reliance on emergency services. I'm awaiting a callback from Dr. Domingo. Case management notified of patient. Case management states they are aware of this patient in her frequent use of the emergency department will return a call to help formulate a plan to decrease use of emergency services going forward. 04/26/18 15:51 EKG sinus tachycardia rate of 105. Normal intervals present. PACs present. No ischemic changes present. Patient was seen and the value by Dr. Ni on 04/25/18. Patient was deemed to have capacity and there is no need for inpatient psychiatric admission or to be see at that time. Case has been discussed with block and case maker Eloy. Denies risk currently formula plan to decrease ER usage. Repeat vital signs are within normal limits. Chest x-rays read by me: No acute cardiopulmonary disease noted. No significant change from study performed 03/30/18. Laboratory testing is unremarkable. I will discharge the patient home to follow- up with her primary doctor as needed. I discussed the physical exam findings, ancillary test results and final diagnoses with the patient. I answered all of the patient's questions. The patient was satisfied with the care received and felt comfortable with the discharge plan and treatment plan. The patient will call their primary care physician within 24 hours to arrange follow-up and will return to the Emergency Department with any new, persistent or worsening symptoms. *DC/Admit/Observation/Transfer Diagnosis at time of Disposition: Chest wall pain, chronic, Malingering Chronic headache Qualifiers: Headache type: unspecified Intractability: not intractable Qualified Code(s): R51 - Headache - Discharge Dispostion Disposition: HOME Condition at time of disposition: Fair - Referrals Referrals: Wendy Hyde MD [Primary Care Provider] - Jenaro Domingo MD [Staff Physician] - - Patient Instructions Additional Instructions: Make an appointment with your primary doctor for reevaluation. Eat a well-balanced diet. Thank you very much for choosing us to provide your emergent health care needs Louisa tavo jihan con perla mdico de cabecera para la reevaluacin. Coma tavo dieta kane balanceada. Muchas kathy por elegirnos para satisfacer devorah necesidades de atencin mdica de emergencia. - Post Discharge Activity
[2018-04-26 13:15] LABS: ANION GAP 6 MMOL/L (8-16); BLOOD UREA NITROGEN 19 mg/dL (7-18); CALCIUM 9.4 mg/dL (8.5-10.1); CHLORIDE 104 mmol/L (98-107); CO2 25 mmol/L (21-32); CREATININE 0.8 mg/dL (0.55-1.3); GLUCOSE,RANDOM 105 mg/dL (74-106); POTASSIUM 4.3 mmol/L (3.5-5.1); SODIUM 135 mmol/L (136-145)
[2018-04-26 15:46] VITALS: BP 153/81; PULSE 84; TEMP 97.8
--- NOTE | 2018-04-27 11:12 | EKG ---
Test Reason : Blood Pressure : / mmHG Vent. Rate : 105 BPM Atrial Rate : 105 BPM P-R Int : 140 ms QRS Dur : 076 ms QT Int : 342 ms P-R-T Axes : 043 -14 044 degrees QTc Int : 452 ms SINUS TACHYCARDIA WHEN COMPARED WITH ECG OF 24-APR-2018 23:21, NO SIGNIFICANT CHANGE WAS FOUND Confirmed by LARA SARMIENTO MD ([id number]) on 04/27/2018 11:11:39 AM Referred By: Confirmed By:LARA SARMIENTO MD
== END 2018-04-26 16:00 | disposition home or self-care (01) ==
LOC: JERFT 10:55
DX: R07.9 Chest pain, unspecified (principal); I10 Essential (primary) hypertension; J44.9 Chronic obstructive pulmonary disease, unspecified; E11.9 Type 2 diabetes mellitus without complications; F41.8 Other specified anxiety disorders; F32.9 Major depressive disorder, single episode, unspecified; E78.00 Pure hypercholesterolemia, unspecified; Z86.69 Personal history of other diseases of the nervous system and sense organs; Z87.19 Personal history of other diseases of the digestive system; Z86.011 Personal history of benign neoplasm of the brain; Z96.653 Presence of artificial knee joint, bilateral; D64.9 Anemia, unspecified; I69.893 Ataxia following other cerebrovascular disease; I69.810 Attention and concentration deficit following other cerebrovascular disease
CPT/HCPCS: 36415; 71046-TC-FY; 80048; 82550; 84484; 93005; 93010; 99281-25

== ENCOUNTER 2018-04-28 08:42 | Emergency (ER) | payer OTHER ==
[2018-04-28 09:05] VITALS: TEMP 98.1; BMI 82.0
[2018-04-28] MEDS ORDERED: ACETAMINOPHEN 325 MG TABLET (FP) PO ONE (09:05)
--- NOTE | 2018-04-28 09:11 | PDOC ---
History of Present Illness - General Chief Complaint: Chest Pain Stated Complaint: CHEST PAIN Time Seen by Provider: 04/28/18 08:50 History Source: Patient - History of Present Illness Presenting Symptoms: Chest Pain Timing/Duration: reports: constant Past History - Past Medical History Allergies/Adverse Reactions: Allergies Allergy/AdvReac Type Severity Reaction Status Date / Time aspirin Allergy Severe "NERVOUS" Verified 04/28/18 08:50 morphine Allergy Severe "ANXIETY-DE Verified 04/28/18 08:50 SPERATION" Home Medications: Ambulatory Orders Amlodipine Besylate 5 mg PO DAILY 11/06/17 Divalproex Sodium [Depakote] 500 mg PO BID 11/06/17 Famotidine 20 mg PO BID 11/06/17 Lisinopril [Prinivil] 5 mg PO DAILY #30 tablet 11/07/17 Escitalopram Oxalate [Lexapro -] 10 mg PO DAILY 04/13/18 Metoprolol Succinate [Toprol Xl] 25 mg PO DAILY 04/13/18 Mirtazapine 15 mg PO HS 04/13/18 Quetiapine Fumarate [Seroquel -] 25 mg PO DAILY 04/13/18 Anemia: Yes Asthma: No Cancer: No Cardiac Disorders: Yes (Chest pain) 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, baseline confusion and dizziness) COPD: Yes CHF: No DVT: No Dementia: No Diabetes: Yes GI Disorders: Yes (gerd, gastric ulcer, dysphagia) Disorders: Yes (kidney stone in the past) HTN: Yes Hypercholesterolemia: Yes Liver Disease: No Psychiatric Problems: Yes (ANXIETY DEPRESSION) Seizures: Yes (S/P craniotomy for benign tumor - on Depakote for seizure prophylaxis) Thyroid Disease: No - Surgical History Abdominal Surgery: Yes Appendectomy: No Cardiac Surgery: No Cholecystectomy: Yes Lung Surgery: No Neurologic Surgery: Yes (removal left meningioma, craniotomy) Orthopedic Surgery: Yes (bilat knee replacement) - Immunization History Td Vaccination: Yes TDAP Vaccination: No Immunization Up to Date: Yes - Suicide/Smoking/Psychosocial Hx Smoking Status: No Smoking History: Unknown if ever smoked Have you smoked in the past 12 months: No Number of Cigarettes Smoked Daily: 0 Cigars Per Day: 0 Hx Alcohol Use: No Drug/Substance Use Hx: No Substance Use Type: None Hx Substance Use Treatment: No Cardiac Specific PMH - Complaint Specific PMHX Pacemaker: No Review of Systems - Review of Systems Constitutional: No: Chills, Fever Respiratory: No: Shortness of Breath Cardiac (ROS): Yes: Chest Pain. No: Palpitations ABD/GI: No: Nausea, Vomiting *Physical Exam - Vital Signs Last Vital Signs Temp Pulse Resp BP Pulse Ox 98.1 F 98 H 19 118/78 98 04/28/18 08:42 04/28/18 09:50 04/28/18 09:50 04/28/18 09:50 04/28/18 09:50 - Physical Exam General Appearance: Yes: Appropriately Dressed, Other (appears anxious) HEENT: positive: Normal Voice Neck: positive: Supple Respiratory/Chest: positive: Lungs Clear, Normal Breath Sounds. negative: Respiratory Distress Cardiovascular: positive: Regular Rate, S1, S2 Gastrointestinal/Abdominal: positive: Soft. negative: Tender Integumentary: positive: Dry, Warm Neurologic: positive: Fully Oriented, Alert Moderate Sedation - Procedure Monitoring Vital Signs: Procedure Monitoring Vital Signs Temperature 98.1 F 04/28/18 08:42 Pulse Rate 98 H 04/28/18 09:50 Respiratory Rate 19 04/28/18 09:50 Blood Pressure 118/78 04/28/18 09:50 O2 Sat by Pulse Oximetry (%) 98 04/28/18 09:50 ED Treatment Course - Medications Given in the ED: ED Medications Discontinued Medications Generic Name Dose Route Start Last Admin Trade Name Freq PRN Reason Stop Dose Admin Acetaminophen 650 mg 04/28/18 09:05 04/28/18 09:43 Tylenol - PO 04/28/18 09:06 650 mg ONCE ONE Administration Medical Decision Making - Medical Decision Making 04/28/18 09:09 72-year-old female, history of COPD, HTN, HLD, CVA, chronic chest pain for numerous ER visits and admissions for same, here with her usual left-sided chest pain since last night. Unable to describe pain, constant w/ a severity of 6-10, w/ no exacerbating/alleviating factors. No SOB, diaphoresis, n/v, palpitations, leg pain or swelling. Last seen in ED for chest pain, was 2 days ago and ruled out with EKG and labs. Of note, patient was admitted to [facility] recently and was ruled out for ACS. Echo also done and unremarkable. Per records , pt was seen by Dr. Barriga of cardiology at the time who reported that patient had recent cardiac workup with negative result. Chest pain thought to be possibly costochondritis. Admitting team also recommended mammogram and DEXA scan. Regarding patient's numerous ED visits for chest pain, was seen by psychiatry while in ED recently who deemed patient to have capacity. 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 Chronic CP Numerous encounters for same R/o in ED 2 days ago S/p recent admission and r/o ACS, seen by cards and dx w/ m/l MSK pain Appears anxious but stable w/ clear chest/lungs -ekg -tylenol as req by pt -anticipate dc from ED 04/28/18 10:38 EKG unremarkable as discussed with ED attending who agrees that there is no need for further eval in ED as patient was ruled out for ACS 2 days ago. Patient refusing to leave ED and security was called to escort patient out of ER *DC/Admit/Observation/Transfer Diagnosis at time of Disposition: Atypical chest pain - Discharge Dispostion Disposition: HOME Condition at time of disposition: Good - Referrals Referrals: Wendy Hyde MD [Primary Care Provider] - - Patient Instructions Printed Discharge Instructions: DI for Atypical Chest Pain Additional Instructions: Please continue to follow-up with your doctors - Post Discharge Activity
[2018-04-28] MEDS ORDERED: ACETAMINOPHEN 325 MG TABLET (FP) ONE (09:33)
[2018-04-28 10:16] VITALS: BP 118/78; PULSE 98
--- NOTE | 2018-04-28 13:11 | EKG ---
Test Reason : Blood Pressure : / mmHG Vent. Rate : 092 BPM Atrial Rate : 092 BPM P-R Int : 144 ms QRS Dur : 074 ms QT Int : 372 ms P-R-T Axes : 032 -09 021 degrees QTc Int : 460 ms POOR DATA QUALITY, INTERPRETATION MAY BE ADVERSELY AFFECTED NORMAL SINUS RHYTHM MINIMAL VOLTAGE CRITERIA FOR LVH, MAY BE NORMAL VARIANT BORDERLINE ECG WHEN COMPARED WITH ECG OF 26-APR-2018 10:53, NO SIGNIFICANT CHANGE WAS FOUND Confirmed by MD NHUNG, MADELEINE ([id number]) on 04/28/2018 1:11:22 PM Referred By: Confirmed By:MADELEINE HOOKER MD
== END 2018-04-28 11:58 | disposition home or self-care (01) ==
LOC: JER 08:42
DX: R07.9 Chest pain, unspecified (principal); D64.9 Anemia, unspecified; J44.9 Chronic obstructive pulmonary disease, unspecified; I10 Essential (primary) hypertension; E11.9 Type 2 diabetes mellitus without complications; E78.00 Pure hypercholesterolemia, unspecified; F41.8 Other specified anxiety disorders; F32.9 Major depressive disorder, single episode, unspecified; I69.810 Attention and concentration deficit following other cerebrovascular disease; I69.893 Ataxia following other cerebrovascular disease; G40.909 Epilepsy, unspecified, not intractable, without status epilepticus; Z86.011 Personal history of benign neoplasm of the brain; Z87.19 Personal history of other diseases of the digestive system; Z87.442 Personal history of urinary calculi; Z96.653 Presence of artificial knee joint, bilateral; Z88.6 Allergy status to analgesic agent; Z88.5 Allergy status to narcotic agent
CPT/HCPCS: 93005; 93010; 99283-25

== ENCOUNTER 2018-05-05 06:55 | Observation (INO) | payer OTHER ==
[2018-05-05] MEDS ORDERED: ACETAMINOPHEN 325 MG TABLET (FP) PO ONE (07:48)
--- NOTE | 2018-05-05 08:11 | PDOC ---
*Physical Exam - Vital Signs Last Vital Signs Temp Pulse Resp BP Pulse Ox 98.3 F 116 H 20 152/86 98 05/05/18 06:57 05/05/18 06:57 05/05/18 06:57 05/05/18 06:57 05/05/18 06:57 ED Treatment Course - LABORATORY CBC & Chemistry Diagram: 05/06/18 07:30 05/06/18 07:30 Medical Decision Making - Medical Decision Making 05/05/18 08:11 Ms Sumner returns to the ER today She had been awake and presented to this ER from [facility] Pt is tearful, disrupting other patient's Pt wandering through the ER Pt behavior is concerning Will repeat labs Will contact psych for this patient EKG - Twelve-lead EKG was performed and reviewed by me. There is normal sinus rhythm with a normal rate. The axis is normal. The intervals are normal. There are no ST or T wave abnormalities. Impression: Normal twelve-lead EKG Pt seen by Midlevel Provider under my direct supervision Pt interviewed and examined Ancillary studies reviewed I agree with plan as outlined by Midlevel Provider 05/05/18 09:35 Laboratory Tests 04/26/18 05/05/18 05/05/18 12:26 08:48 08:48 WBC 6.7 Hgb 12.0 Hct 36.6 D Plt Count 358 Sodium 135 L 135 L Potassium 4.3 3.8 BUN 19 H 21 H Creatinine 0.8 0.9 AST 53 H ALT 64 H Alkaline Phosphatase 165 H Creatine Kinase 76 Troponin I < 0.02 05/05/18 12:14 Pt seen by psych, deemed unsafe discharge Call placed to Dr Tang who does not agree with admission and will not admit at this time Recommends keeping patient in the ER until she can be discharged with a nephew We have contacted this nephew who states the patient lives far from him and he can not care for her 05/05/18 13:33 Referral made to Adult protective services *DC/Admit/Observation/Transfer Diagnosis at time of Disposition: Altered mental status - Discharge Dispostion Disposition: HOME Condition at time of disposition: Stable - Referrals - Patient Instructions - Post Discharge Activity
[2018-05-05] MEDS ORDERED: ACETAMINOPHEN 325 MG TABLET (FP) ONE (08:34)
--- NOTE | 2018-05-05 08:56 | PDOC ---
History of Present Illness - General Chief Complaint: Pain Stated Complaint: PAIN Time Seen by Provider: 05/05/18 07:44 History Source: Patient Exam Limitations: Language Barrier Past History - Past Medical History Allergies/Adverse Reactions: Allergies Allergy/AdvReac Type Severity Reaction Status Date / Time aspirin Allergy Severe "NERVOUS" Verified 05/05/18 06:56 morphine Allergy Severe "ANXIETY-DE Verified 05/05/18 06:56 SPERATION" Home Medications: Ambulatory Orders Amlodipine Besylate 5 mg PO DAILY 11/06/17 Divalproex Sodium [Depakote] 500 mg PO BID 11/06/17 Famotidine 20 mg PO BID 11/06/17 Lisinopril [Prinivil] 5 mg PO DAILY #30 tablet 11/07/17 Escitalopram Oxalate [Lexapro -] 10 mg PO DAILY 04/13/18 Metoprolol Succinate [Toprol Xl] 25 mg PO DAILY 04/13/18 Mirtazapine 15 mg PO HS 04/13/18 Quetiapine Fumarate [Seroquel -] 25 mg PO DAILY 04/13/18 Anemia: Yes Asthma: No Cancer: No Cardiac Disorders: Yes (Chest pain) 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, baseline confusion and dizziness) COPD: Yes CHF: No DVT: No Dementia: No Diabetes: Yes GI Disorders: Yes (gerd, gastric ulcer, dysphagia) Disorders: Yes (kidney stone in the past) HTN: Yes Hypercholesterolemia: Yes Liver Disease: No Psychiatric Problems: Yes (ANXIETY DEPRESSION) Seizures: Yes (S/P craniotomy for benign tumor - on Depakote for seizure prophylaxis) Thyroid Disease: No - Surgical History Abdominal Surgery: Yes Appendectomy: No Cardiac Surgery: No Cholecystectomy: Yes Lung Surgery: No Neurologic Surgery: Yes (removal left meningioma, craniotomy) Orthopedic Surgery: Yes (bilat knee replacement) - Immunization History Td Vaccination: Yes TDAP Vaccination: No Immunization Up to Date: Yes - Suicide/Smoking/Psychosocial Hx Smoking Status: No Smoking History: Never smoked Have you smoked in the past 12 months: No Number of Cigarettes Smoked Daily: 0 Cigars Per Day: 0 Information on smoking cessation initiated: No Hx Alcohol Use: No Drug/Substance Use Hx: No Substance Use Type: None Hx Substance Use Treatment: No *Physical Exam - Vital Signs Last Vital Signs Temp Pulse Resp BP Pulse Ox 98.3 F 116 H 20 152/86 98 03/23/19 06:57 05/05/18 06:57 05/05/18 06:57 05/05/18 06:57 05/05/18 06:57 - Physical Exam General Appearance: No: Apparent Distress Respiratory/Chest: positive: Chest Tender (along L chest wall), Lungs Clear, Normal Breath Sounds. negative: Respiratory Distress Cardiovascular: positive: Regular Rhythm, Regular Rate, S1, S2. negative: Murmur Gastrointestinal/Abdominal: positive: Normal Bowel Sounds, Soft. negative: Tender, Distended, Guarding, Rebound Integumentary: positive: Normal Color Neurologic: positive: Alert, Normal Mood/Affect Moderate Sedation - Procedure Monitoring Vital Signs: Procedure Monitoring Vital Signs Temperature 98.3 F 05/05/18 06:57 Pulse Rate 116 H 05/05/18 06:57 Respiratory Rate 20 05/05/18 06:57 Blood Pressure 152/86 05/05/18 06:57 O2 Sat by Pulse Oximetry (%) 98 05/05/18 06:57 ED Treatment Course - LABORATORY CBC & Chemistry Diagram: 05/05/18 08:48 05/05/18 08:48 - Medications Given in the ED: ED Medications Discontinued Medications Generic Name Dose Route Start Last Admin Trade Name Freq PRN Reason Stop Dose Admin Acetaminophen 650 mg 05/05/18 07:48 05/05/18 08:34 Tylenol - PO 05/05/18 07:49 650 mg ONCE ONE Administration Medical Decision Making - Medical Decision Making 72-year-old female, history of COPD, HTN, HLD, CVA, chronic chest pain, with numerous visits to the ED presents with her chronic L sided chest pain. Patient was just seen at [facility] today and then came here. Patient has had multiple workups in the past regarding her chest pain. She has been admitted and cleared by cardiology. Per prior notes, she was also seen by cardiology recently at [facility] where she was ruled out for ACS. Patient was seen by psych last week and cleared as well. Chronic L sided CP, multiple visits to ED for same EKG here shows NSR at 97 bpm, no ST-T changes delicatessen manager has already been made aware of case in the past Will get another psych consult 05/05/18 08:52 Labs unremarkable; elevated liver enzymes were noted on prior visits as well Patient was seen by psych and deemed unsafe for discharge at this time; recommends having air traffic controller center for patient for longer hours Case d/w Marlin HARRISON, and also with social media developer (d/w air traffic control manager Isaura) - states they can have [facility]NS re-evaluate her to see if she can get longer hours with aide Attempted to admit patient but patient was not accepted for admission D/W patient's nephew ([phone]) who states he is unable to care for her; states she also will not stay with him However, states he can pickup her up between 5-6 PM today and stay with her for some time Patient was also referred to APS by Dr. Stone 05/05/18 15:02 *DC/Admit/Observation/Transfer Diagnosis at time of Disposition: Chronic chest pain - Discharge Dispostion Disposition: HOME Condition at time of disposition: Stable Decision to Admit order: No - Referrals - Patient Instructions - Post Discharge Activity
[2018-05-05 09:02] LABS: BASO % 0.5 % (0-2.0); EOS % 0.6 % (0-4.5); HEMATOCRIT 36.6 % (32.4-45.2); LYMPH % 10.5 % (8-40); MCH 25.2 pg (25.7-33.7); MCHC 32.7 g/dl (32.0-36.0); MEAN PLT VOLUME 7.5 fl (7.5-11.1); MONO % 9.9 % (3.8-10.2); NEUT % 78.5 % (42.8-82.8); PLATELET COUNT 358 K/MM3 (134-434); RBC 4.75 M/mm3 (3.60-5.2); RDW 20.1 % (11.6-15.6); WHITE BLOOD COUNT 6.7 K/mm3 (4.0-10.0)
[2018-05-05 09:20] LABS: ALBUMIN 3.8 g/dl (3.4-5.0); ALK PHOS 165 U/L (45-117); ANION GAP 10 MMOL/L (8-16); BILIRUBIN,TOTAL 0.6 mg/dL (0.2-1); BLOOD UREA NITROGEN 21 mg/dL (7-18); CALCIUM 8.8 mg/dL (8.5-10.1); CHLORIDE 102 mmol/L (98-107); CO2 23 mmol/L (21-32); CREATININE 0.9 mg/dL (0.55-1.3); GLUCOSE,RANDOM 130 mg/dL (74-106); POTASSIUM 3.8 mmol/L (3.5-5.1); SGOT/AST 53 U/L (15-37); SGPT/ALT 64 U/L (13-61); SODIUM 135 mmol/L (136-145); TOT PROT 7.8 g/dl (6.4-8.2)
--- NOTE | 2018-05-05 10:36 | CON.PSY ---
Psychiatry Consult Chief Complaint: Asked to see Ms. Sumner to assess her mental status and to address safety concerns for discharge History of Present Problem: Medical Records reviewed. Nursing and medical staff input appreciated. This is a 72 year old female with known history of anxiety and depression who has been frequentng the ER, ( mostly at nights) for c/o chest pains very often as reflected in EMR. All medical work up Accordingto RN, patient lives alone has a administrator of home health. Info on the administrator of home health regular hours, whether night or day not certain. According to staff here, she has a administrator of home health during the day only ( not verified} Patient lives alone and has a nephrew who apparently lives in [place] [phone].Called nephew and left message Patient was found pacing up and down the floor in the ER,in a disheveled state. She spoke in [place] only and with the aid of a copper roller handler printing, this evaluation was done. Symptoms: reports: Impaired Concentration, Restlessness (Mood is " Im OK!") - Family History Family History: Unable to Obtain (spoke to harvey who stated that her administrator of home health hours are 9 to 5 ) - Allergies Allergies: Allergies Allergy/AdvReac Type Severity Reaction Status Date / Time aspirin Allergy Severe "NERVOUS" Verified 05/05/18 06:56 morphine Allergy Severe "ANXIETY-DE Verified 05/05/18 06:56 SPERATION" - Current Living Status Usual Living Arrangement: Alone (MANAGER HVAC 9 to 5 pm -) - Current Mental Status Evaluation Appearance: Disheveled Attitude: Other (apathetic, ) - Affect Affect: Constrictive - Mood Mood: Other (neutral and relaxed) - Speech/Language Expressive: Coherent - Psychomotor Activity Psychomotor Activity: Other - Thought Process Thought Process: Circumstantial, Loosening of Associations, Transgential (hard to focus patient short attention span) - Thought Content Hallucinations: Absent - Cognition Attention: Diminished Orientation: Person Memory, Short Term: /3 - Concentration Serial Sevens Intact: No Simple Calculations Intact: No - Abstraction Judgement: Moderately Impaired - Insight Insight: Impaired - Suicidal Ideation Suicidal Ideation: No - Homicidal Ideation Homicidal Ideation: No Assessment/Plan Patient responds to her name only Date, Time " I dont know' Address' could not recall President " No answer" IMP Unsafe discharge at this time Rule out Dementia on top of her Depression and Anxiety- Dementia work up TSH, Vitamin B12, folate. Continue her psych meds Since her visit to the ER is mostly at nights, a administrator of home health for nights is rec, Have her PCP Dr. Handley get involved in her safe discharge plannng- to write rx for more hours and a night administrator of home health Follow up by psychiatry automotive production worker here at [place] to coordinate discharge planning.
--- NOTE | 2018-05-05 17:01 | EKG ---
Test Reason : Blood Pressure : / mmHG Vent. Rate : 097 BPM Atrial Rate : 097 BPM P-R Int : 142 ms QRS Dur : 074 ms QT Int : 362 ms P-R-T Axes : 034 -01 042 degrees QTc Int : 459 ms NORMAL SINUS RHYTHM NORMAL ECG WHEN COMPARED WITH ECG OF 28-APR-2018 08:41, NO SIGNIFICANT CHANGE WAS FOUND Confirmed by LJ SETHI MD ([id number]) on 05/05/2018 5:01:15 PM Referred By: Confirmed By:LJ SETHI MD
--- NOTE | 2018-05-05 19:30 | PDOC ---
*Physical Exam - Vital Signs Last Vital Signs Temp Pulse Resp BP Pulse Ox 98.0 F 98 H 18 138/74 98 05/05/18 09:00 05/05/18 09:00 05/05/18 09:00 05/05/18 09:00 05/05/18 09:00 - Physical Exam General Appearance: Yes: Appropriately Dressed. No: Apparent Distress HEENT: positive: Normal Voice Neck: positive: Supple Respiratory/Chest: positive: Lungs Clear, Normal Breath Sounds. negative: Respiratory Distress Cardiovascular: positive: Regular Rate, S1, S2 Gastrointestinal/Abdominal: negative: Tender Integumentary: positive: Dry, Warm Neurologic: positive: Alert ED Treatment Course - LABORATORY CBC & Chemistry Diagram: 05/05/18 08:48 05/05/18 08:48 - ADDITIONAL ORDERS Additional order review: Laboratory Results 05/05/18 08:48 Sodium 135 L Potassium 3.8 Chloride 102 Carbon Dioxide 23 Anion Gap 10 BUN 21 H Creatinine 0.9 Creat Clearance w eGFR 61.21 Random Glucose 130 H Calcium 8.8 Total Bilirubin 0.6 AST 53 H ALT 64 H Alkaline Phosphatase 165 H Creatine Kinase 76 Troponin I < 0.02 Total Protein 7.8 Albumin 3.8 05/05/18 08:48 RBC 4.75 MCV 77.0 L MCHC 32.7 RDW 20.1 H MPV 7.5 Neutrophils % 78.5 D Lymphocytes % 10.5 D Monocytes % 9.9 Eosinophils % 0.6 D Basophils % 0.5 - Medications Given in the ED: ED Medications Discontinued Medications Generic Name Dose Route Start Last Admin Trade Name Freq PRN Reason Stop Dose Admin Acetaminophen 650 mg 05/05/18 07:48 05/05/18 08:34 Tylenol - PO 05/05/18 07:49 650 mg ONCE ONE Administration Medical Decision Making - Medical Decision Making 05/05/18 20:28 Pt signed out to me at 7pm 72-year-old female, history of COPD, HTN, HLD, CVA, chronic chest pain for numerous ER visits and admissions for same, p/w same today. Pt has had almost daily visits for same and seen by cardiology during recent admission with negative workup. Chest pain, deemed to be likely musculoskeletal. Patient also has been evaluated by porter sample case and psych multiple times. Evaluated by Dr Ni of psychiatry recently and deemed to have capacity. However, patient has been increasingly bizarre on recent ER visits as witnessed by ED staff including myself and has walked into exam room while another patient was being evaluated. Recent discharges has had to involves security or the police. Patient also witnessed to sleep in restrooms overnight in the ER. Unsure how involved family is. Per prior team, pt was found wandering on the street with no shoes on. Received a psych eval today and it was documented that pt is only oriented x 1 and that pt was an unsafe discharge. Will admit for AMS at this time. Ultimately pt needs a comprehensive peter-psych assessment and placement as pt is incapable of caring for herself at home and appears to be deteriorating mentally and physically 05/05/18 20:38 Discussed case w/ admitting team via microblog and pt admitted to obs *DC/Admit/Observation/Transfer Diagnosis at time of Disposition: Altered mental status Qualifiers: Altered mental status type: somnolence Qualified Code(s): R40.0 - Somnolence - Discharge Dispostion Condition at time of disposition: Stable Decision to Admit order: Yes - Referrals - Patient Instructions - Post Discharge Activity
--- NOTE | 2018-05-05 19:32 | PN ---
Teaching Attending Note Name of Resident: Ted Cruz ATTENDING PHYSICIAN STATEMENT I saw and evaluated the patient. I reviewed the resident's note and discussed the case with the resident. I agree with the resident's findings and plan as documented. SUBJECTIVE: Seen and examined; please refer to resident note for further historical documentation. Briefly, this is a 72 y/o female with a PMH as documented; she has an extraordinary amount of ER visits recently. She presents to our ER from [facility] after being discharged; she was documented as being tearful and disruptive to other patients. She was apparently complaining of chest pain at [facility] but is CP free here; is a poor historian. Has NSR with normal rate and no new ST-T changes on EKG. Psych was consulted and midlevel states unsafe for DC; please see their documentation for further info. APS called by ER. Asked to admit. Documented in last cardiology note that she has nonischemic/ noncardiac chest pain that is persistent. Recommended continuing BB, toprol XL , NARINDER, statin, and plavix unless contraindicated. 10 sys ROS done and negative aside from HPI PMH, PSH, Family hx, Social hx reviewed Medications reviewed; pending reconciliation Home Medications Medication Instructions Recorded Amlodipine Besylate 5 mg PO DAILY 11/06/17 Divalproex Sodium [Depakote] 500 mg PO BID 11/06/17 Famotidine 20 mg PO BID 11/06/17 Lisinopril [Prinivil] 5 mg PO DAILY #30 tablet 11/07/17 Escitalopram Oxalate [Lexapro -] 10 mg PO DAILY 04/13/18 Metoprolol Succinate [Toprol Xl] 25 mg PO DAILY 04/13/18 Mirtazapine 15 mg PO HS 04/13/18 Quetiapine Fumarate [Seroquel -] 25 mg PO DAILY 04/13/18 OBJECTIVE: VS, labs, imaging reviewed NAD, AAO, resting in bed NC AT EOMI PERRLA RRR s1/2 no mgr Lungs CTAB, w/ sym exp NT ND +BS CN2-12 wnl, no fnd Normal mood, appropriate behavior EKG reviewed CXR reviewed Prior consults reviewed ASSESSMENT AND PLAN: Patient is a 72 y/o female presenting to the ER from [facility] ER; felt to be unsafe DC by psychiatry 1) Unsafe DC -Social situation noted; nephew in [place], etc. -APS referral made by ER; consulting social work. Will discuss home situation with PCP. -Followup psychiatry recommendaitons 2) Persistent non-cardiac CP, chest pain syndrome -Unchanged from baseline with negative EKG and CP free in ER; no indication for telemetry monitoring at this time or for further cardiac workup. If she complains of CP again we can consider tele/ACS workup but will consider her PMH. -Reviewing meds and prior CV recs; home med list didn't include plavix. Will discuss with her PCP and consider nonurgently adding in AM. Continue BB, NARINDER, Norvasc. Followup lipids and place on statin based on ASCVD risk, etc. 3) Suspected Dementia with psych hx (anxiety/depression) -Disorganized behavior, etc. but not forgetful, persay. Checking RPR, B12, thiamine, folate. Followup with psych. Will -Was seen 04/[address] Ni and felt to have mental capacity; no med changes made and no rec was made for psychiatric admission -Continue seroquel, lexapro, mirtazapine 4) Hx GERD -Continue famotidine 5) Hx CVA -Should be on an antiplatelet; consider starting plavix prior to DC if no contraindication 6) Hx Craniotomy -Noted 7) Hx HLD -Per #2; checking lipids. Home meds did not include a statin but can call pharmacy to confirm. FENA -PO fluids -PRN replete -Home diet -As tolerated Full Code
--- NOTE | 2018-05-05 23:50 | HP ---
<Ted Cruz - Last Filed: 05/07/18 10:30> Admitting History and Physical - Admission Chief Complaint: CHEST PAIN History of Present Illness: 72-year-old female, history of COPD, HTN, HLD, CVA, chronic chest pain for numerous ER visits and admissions for same, p/w same today. Pt has had almost daily visits for same and seen by cardiology during recent admission with negative workup. Chest pain, deemed to be likely musculoskeletal. Patient also has been evaluated by transplant case manager and psych multiple times. Evaluated by Dr Ni of psychiatry recently and deemed to have capacity. Recent discharges has had to involves security or the police. Patient also witnessed to sleep in restrooms overnight in the ER. Unsure how involved family is. Per prior team, pt was found wandering on the street with no shoes on. Received a psych eval today and it was documented that pt is only oriented x 1 and that pt was an unsafe discharge. Will admit for AMS at this time. Ultimately pt needs a comprehensive peter-psych assessment and placement as pt is incapable of caring for herself at home and appears to be deteriorating mentally and physically. Denies GALLARDO, SOB, abdominal pain, nausea or vomiting. History Source: Patient Limitations to Obtaining History: Language Barrier - Past Medical History HAND SCUDDER: Yes: CVA Cardiovascular: Yes: HTN, Hyperlipdemia Gastrointestinal: Yes: GERD, Hiatal Hernia, Peptic Ulcer Disease Renal/: Yes: Other (hyponatremia) ...: No Heme/Onc: Yes: Anemia Psych: Yes: Anxiety, Depression Musculoskeletal: Yes: Osteoarthritis Endocrine: Yes: Diabetes Mellitus - Past Surgical History Past Surgical History: Yes: Cataract Removal (bilateral), Joint Replacement (RT KNEE) - Smoking History Smoking history: Never smoked Have you smoked in the past 12 months: No Aproximately how many cigarettes per day: 0 - Alcohol/Substance Use Hx Alcohol Use: No History of Substance Use: reports: None - Social History 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, 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 History of Recent Travel: No Home Medications - Allergies Allergies/Adverse Reactions: Allergies Allergy/AdvReac Type Severity Reaction Status Date / Time aspirin Allergy Severe "NERVOUS" Verified 05/05/18 06:56 morphine Allergy Severe "ANXIETY-DE Verified 05/05/18 06:56 SPERATION" - Home Medications Home Medications: Ambulatory Orders Amlodipine Besylate 5 mg PO DAILY 11/06/17 Divalproex Sodium [Depakote] 500 mg PO BID 11/06/17 Famotidine 20 mg PO BID 11/06/17 Lisinopril [Prinivil] 5 mg PO DAILY #30 tablet 11/07/17 Escitalopram Oxalate [Lexapro -] 10 mg PO DAILY 04/13/18 Metoprolol Succinate [Toprol Xl] 25 mg PO DAILY 04/13/18 Mirtazapine 15 mg PO HS 04/13/18 Quetiapine Fumarate [Seroquel -] 25 mg PO DAILY 04/13/18 Nortriptyline HCl [Pamelor -] 20 mg PO HS #30 capsule 05/07/18 Review of Systems - Review of Systems Constitutional: denies: Chills, Diaphoresis, Fever Cardiovascular: reports: Chest Pain Gastrointestinal: denies: Abdominal Pain, Bloating, Diarrhea, Vomiting Genitourinary: denies: Burning, Discharge, Dysuria, Flank Pain Musculoskeletal: denies: Back Pain, Decreased ROM Integumentary: denies: Blister, Bruising Neurological: denies: Seizure Psychiatric: reports: Depression Physical Examination Vital Signs: Vital Signs Temperature 98.0 F 05/05/18 09:00 Pulse Rate 98 H 05/05/18 09:00 Respiratory Rate 18 05/05/18 09:00 Blood Pressure 138/74 05/05/18 09:00 O2 Sat by Pulse Oximetry (%) 95 05/05/18 23:39 Constitutional: Yes: No Distress, Calm Eyes: Yes: Conjunctiva Clear, EOM Intact Gastrointestinal: Yes: Normal Bowel Sounds, Soft, Abdomen, Obese Musculoskeletal: Yes: Other (left chest wall tenderness to palpation.) Extremities: No: Amputation, Calf Tenderness Edema: No Neurological: Yes: Alert Psychiatric: Yes: Alert Labs: CBC, BMP 05/05/18 08:48 05/05/18 08:48 Problem List - Problems (1) Chronic chest pain Assessment/Plan: * placed on observation to telemetry * most likely MS pain * Trend trops. * pain meds (2) Altered mental status, unspecified Assessment/Plan: neuro checks. * appears to be back to baseline. (3) GERD (gastroesophageal reflux disease) Assessment/Plan: Cont. PPI (4) HLD (hyperlipidemia) Assessment/Plan: cont. statin (5) HTN (hypertension) Assessment/Plan: * Amlodipine Besylate (Norvasc -) 5 mg PO DAILY * Lisinopril (Prinivil) 5 mg PO DAILY * Metoprolol Succinate (Toprol Xl -) 25 mg PO DAILY (6) History of CVA (cerebrovascular accident) Assessment/Plan: continue statin and ASA Visit type - Emergency Visit Emergency Visit: Yes ED Registration Date: 05/05/18 Care time: The patient presented to the Emergency Department on the above date and was hospitalized for further evaluation of their emergent condition. - New Patient This patient is new to me today: Yes Date on this admission: 05/07/18 - Critical Care Critical Care patient: No <Damian Duran - Last Filed: 06/04/18 21:56> Physical Examination Vital Signs: Vital Signs Temperature 98.1 F 05/07/18 09:00 Pulse Rate 68 05/07/18 09:00 Respiratory Rate 18 05/07/18 09:00 Blood Pressure 117/84 05/07/18 09:00 O2 Sat by Pulse Oximetry (%) 96 05/07/18 01:00 Labs: CBC, BMP 05/06/18 07:30 05/06/18 07:30 Assessment/Plan Seen and examined; agree with above aside from what is supplemented in my own documentation. Repeated all garcia parts of exam, supervised all vital parts of patient care.
[2018-05-06] MEDS: SODIUM CHLORIDE 1,000 ML IV SCH ×2 (00:30→13:25)
[2018-05-06] MEDS: ACETAMINOPHEN 325 MG TABLET (FP) PO PRN ×2 (01:08→05:51)
[2018-05-06 01:36] VITALS: BMI 35.9
[2018-05-06 08:30] LABS: BASO % 0.7 % (0-2.0); EOS % 2.5 % (0-4.5); HEMATOCRIT 36.5 % (32.4-45.2); HEMOGLOBIN 11.6 GM/dL (10.7-15.3); LYMPH % 17.4 % (8-40); MCH 24.5 pg (25.7-33.7); MCHC 31.9 g/dl (32.0-36.0); MEAN CELL VOLUME 76.7 fl (80-96); MEAN PLT VOLUME 7.7 fl (7.5-11.1); MONO % 10.6 % (3.8-10.2); NEUT % 68.8 % (42.8-82.8); PLATELET COUNT 311 K/MM3 (134-434); RBC 4.75 M/mm3 (3.60-5.2); WHITE BLOOD COUNT 5.1 K/mm3 (4.0-10.0)
[2018-05-06 09:15] LABS: ALBUMIN 3.6 g/dl (3.4-5.0); ALK PHOS 162 U/L (45-117); ANION GAP 9 MMOL/L (8-16); BILIRUBIN,DIRECT 0.3 mg/dL (0.0-0.2); BILIRUBIN,TOTAL 0.6 mg/dL (0.2-1); BLOOD UREA NITROGEN 17 mg/dL (7-18); CALCIUM 8.8 mg/dL (8.5-10.1); CHLORIDE 102 mmol/L (98-107); CHOLESTEROL 174 mg/dL (50-200); CO2 24 mmol/L (21-32); CREATININE 0.7 mg/dL (0.55-1.3); GLUCOSE,RANDOM 98 mg/dL (74-106); HDL CHOLESTEROL 76 mg/dL (40-60); MAGNESIUM 2.2 mg/dL (1.8-2.4); PHOSPHOROUS 3.6 mg/dL (2.5-4.9); POTASSIUM 4.1 mmol/L (3.5-5.1); SGOT/AST 55 U/L (15-37); SGPT/ALT 66 U/L (13-61); SODIUM 134 mmol/L (136-145); TOT PROT 7.5 g/dl (6.4-8.2); TRIGLYCERIDES 81 mg/dL (0-150)
[2018-05-06] MEDS: DIVALPROEX SODIUM 500 MG TABLET E.C. PO SCH ×4 (10:27→22:46)
[2018-05-06] MEDS: QUEtiapine FUMARATE 25 MG TABLET (FP) PO SCH (10:27)
[2018-05-06] MEDS: RANITIDINE HCL 150 MG TABLET (FP) PO SCH ×2 (10:27→22:46)
[2018-05-06] MEDS: LISINOPRIL 5 MG TABLET (FP) PO SCH (10:27)
[2018-05-06] MEDS: amLODIPine BESYLATE 5 MG TABLET (FP) PO SCH (10:27)
[2018-05-06] MEDS: ESCITALOPRAM OXALATE 10 MG TABLET (FP) PO SCH (10:27)
[2018-05-06] MEDS: metoPROLOL SUCCINATE 25 MG TAB.SR.24H (FP) PO SCH (10:27)
--- NOTE | 2018-05-06 13:43 | PN ---
Progress Note (short form) - Note Progress Note: Subjective: she complains of GALLARDO and L sided CP. per aid at bedside, she chronically has those complaints. she also , has been taking a lot of tylenol for those pains. aid states that patient dose not like to stay home alone and takes cabs to hospitals after aid leaves home her mental status per aid is at baseline Objective: Vital Signs: Last Vital Signs Temp Pulse Resp BP Pulse Ox 98.0 F 70 15 145/70 96 05/06/18 08:02 05/06/18 08:02 05/06/18 08:02 05/06/18 08:02 05/06/18 09:00 Laboratory Results - last 24 hr 05/06/18 05/06/18 07:30 07:30 WBC 5.1 RBC 4.75 Hgb 11.6 Hct 36.5 MCV 76.7 L MCH 24.5 L MCHC 31.9 L RDW 20.0 H Plt Count 311 MPV 7.7 Absolute Neuts (auto) 3.5 Neutrophils % 68.8 Lymphocytes % 17.4 D Monocytes % 10.6 H Eosinophils % 2.5 D Basophils % 0.7 Nucleated RBC % 0 Sodium 134 L Potassium 4.1 Chloride 102 Carbon Dioxide 24 Anion Gap 9 BUN 17 Creatinine 0.7 Creat Clearance w eGFR 81.80 Random Glucose 98 Calcium 8.8 Phosphorus 3.6 Magnesium 2.2 Total Bilirubin 0.6 Direct Bilirubin 0.3 H AST 55 H ALT 66 H Alkaline Phosphatase 162 H Troponin I < 0.02 Total Protein 7.5 Albumin 3.6 Triglycerides 81 Cholesterol 174 Total LDL Cholesterol 81 HDL Cholesterol 76 H Vitamin B12 675 TSH 0.39 Physical Exam: NAD, awake, comfortable, knows her name, but not location and not year or age CV: RRR, no MRG lungs: did not allow exam . Legs: No edema or erythema. old anterior surgical scar on knees Abd: soft, TTP in epigastric area. No rebound tenderness or guarding Neuro : not coperative : round equal pupils, reactive to light , EOMI, no facial droop. tongue at mid line, moves all her extremities spontaneously but will not follow instruction to test strength . reflexes 2+ knee jerk and biceps . unable to complete exam MS: TTp over the L chest wall Assessment/Plan: 72 y/o lady with h/o COPD, HTN, HLD, CVA, seizure ,chronic chest pain, and chronic GALLARDO , with multiple visits to ER for CP, who presented again with CP. 1- CP: atypical , likely MS in etiology. old records reviewed. Stress in 05/31 NL , Echo in 04/03 showed normal EF and mild MR. EKG here with NSR and trop was nl x 2 tenderness to palpation on chest wall suggests MS etiology No further w/u last admission card recommended statin, plavix, norvasc and BB . she was dc on norvasc , lisinopril, and BB .agree with no statin due to LFTs abnormalities . last LDL 78 2- Transaminitis: might have fatty liver as her LFTS have been elevated in past. But in setting of increased tylenol use per aid, will do more investigations - US - Tylenol level - hepatitis serology - dc tylenol 3-Decline in cognitive function with Possible dementia: although limited, but neuro exam is non focal. there is no change in her mental status as per aid. now at base line . - last B12 381, and TSH 0.6 on 04/13/18 . - will ask neuro to evaluate 4- h/o CVA: not on any anti platelet agents. I would be careful with her gait abnormalities . discussion and decision about plavix as out pt 5- h/o seizures: cont depakote 6- h/o depression and anxiety : resume lexapro, seroquel , and remeron . Dispo : she refused to walk with PT, but he witnessed her walking. she has 8 hour aid at home. stafford s not want to go live with nephew. Social work aware of situation. of note: aid did not have med list with her . but she was here recently. will confirm with pharmacy in am Visit type - Emergency Visit Emergency Visit: Yes ED Registration Date: 05/05/18 Care time: The patient presented to the Emergency Department on the above date and was hospitalized for further evaluation of their emergent condition. - New Patient This patient is new to me today: Yes Date on this admission: 05/06/18 - Critical Care Critical Care patient: No
--- NOTE | 2018-05-06 19:26 | CON.NEURO ---
Consult Consult Specialty:: NEUROLOGY-[facility] - History of Present Illness Chief Complaint: Chest pain History of Present Illness: 72-year-old female, history of COPD, HTN, HLD, CVA, chronic chest pain for numerous ER visits and admissions for same, p/w same today. Pt has had almost daily visits for same and seen by cardiology during recent admission with negative workup. Chest pain, deemed to be likely musculoskeletal. Patient also has been evaluated by watch case polisher and psych multiple times. Evaluated by Dr Ni of psychiatry recently and deemed to have capacity. Recent discharges has had to involves security or the police. Patient also witnessed to sleep in restrooms overnight in the ER. Unsure how involved family is. Per prior team, pt was found wandering on the street with no shoes on. Received a psych eval today and it was documented that pt is only oriented x 1 and that pt was an unsafe discharge. Will admit for AMS at this time. Ultimately pt needs a comprehensive peter-psych assessment and placement as pt is incapable of caring for herself at home and appears to be deteriorating mentally and physically. Pt. has been admitted for AMS, she is known to me from previous admissions, she has had chronic [id number] type vs cervicogenic, difficult to differentiate. She has x months been needy, has, to my knowledge cognitive decline and repeated hospital admission in an agitated, labile state. 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: CVA Cardio/Vascular: Yes: HTN, Hyperlipdemia Gastrointestinal: Yes: GERD, Hiatal Hernia, Peptic Ulcer Disease Renal/: Yes: Other (hyponatremia) ...: No Psych: Yes: Anxiety, Depression Musculoskeletal: Yes: Osteoarthritis Endocrine: Yes: Diabetes Mellitus - Past Surgical History Past Surgical History: Yes: Cataract Removal (bilateral), Joint Replacement (RT KNEE) - Alcohol/Substance Use Hx Alcohol Use: No History of Substance Use: reports: None - Smoking History Smoking history: Never smoked Have you smoked in the past 12 months: No Aproximately how many cigarettes per day: 0 - Social History Usual Living Arrangement: Alone (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 9 to 5 pm -) ADL: Support Services (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 8 hours daily, 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 History of Recent Travel: No Home Medications - Allergies Allergies/Adverse Reactions: Allergies Allergy/AdvReac Type Severity Reaction Status Date / Time aspirin Allergy Severe "NERVOUS" Verified 03/23/19 06:56 morphine Allergy Severe "ANXIETY-DE Verified 05/05/18 06:56 SPERATION" - Home Medications Home Medications: Ambulatory Orders Amlodipine Besylate 5 mg PO DAILY 11/06/17 Divalproex Sodium [Depakote] 500 mg PO BID 11/06/17 Famotidine 20 mg PO BID 11/06/17 Lisinopril [Prinivil] 5 mg PO DAILY #30 tablet 11/07/17 Escitalopram Oxalate [Lexapro -] 10 mg PO DAILY 04/13/18 Metoprolol Succinate [Toprol Xl] 25 mg PO DAILY 04/13/18 Mirtazapine 15 mg PO HS 04/13/18 Quetiapine Fumarate [Seroquel -] 25 mg PO DAILY 04/13/18 Physical Exam-Neuro Vital Signs: Vital Signs Temperature 98.6 F 05/06/18 18:00 Pulse Rate 85 05/06/18 18:00 Respiratory Rate 18 05/06/18 15:30 Blood Pressure 133/65 05/06/18 18:00 O2 Sat by Pulse Oximetry (%) 97 05/06/18 17:00 Labs: CBC, BMP 05/06/18 07:30 05/06/18 07:30 - Neuro Exam Level Of Consciousness: Yes: Alert, Oriented to Person, Oriented to Place Speech: Other (pressured, tangential) Dominant Hand: Right Mini Mental Exam: Impaired STM/attention/concentration DTR's: 0 Left Achilles, 0 Right Achilles (bilat knees-3+), 1+ Left Brachioradialis, 1+ Right Brachioradialis, 2+ Left Bicep, 2+ Right Bicep, 2+ Left Tricep, 2+ Right Tricep Babinski: Absent Response to light touch: Normal (unable to test other modalities) Coordination: Normal: Finger to Nose (normal) Motor Strength: 5/5: Left Arm, Right Arm, Left Leg, Right Leg Assessment/Plan Pt. with cognitive decline, difficult to do a detailed exam given language barrier and probable agitated depression, hence difficult to tell possible etiology of dementia which appears to be mild. This lady is unable to fx.at home and repeatedly seeks care in hospitals-she requires a psychiatric evaluation for treatment of depression?/ with psychotic features following treatment of a mood d/o will be able to better assess her cognitive state and probable adult home placement. Headaches- would try to minimize Tylenol, she may have analgesic rebound headaches, would place her on Nortryptilline 20mg hs to treat possible cervicogenic headaches. Thank you, Aury Corral MD
[2018-05-06 20:16] LABS: COCAINE, UR NEGATIVE ng/ml (CUTOFF=300); METHADONE, UR NEGATIVE ng/ml (CUTOFF=300); OPIATES, URI NEGATIVE ng/ml (CUTOFF=300); PHENCYCLIDINE,URINE NEGATIVE ng/ml (CUTOFF=25); URINE AMPHETAMINES NEGATIVE ng/ml (CUTOFF=500); URINE BARBITURATES NEGATIVE ng/ml (CUTOFF=200); URINE BENZODIAZEPINES NEGATIVE ng/ml (CUTOFF=200)
[2018-05-06] MEDS ORDERED: MIRTAZAPINE 15 MG TABLET (FP) PO SCH (22:00)
--- NOTE | 2018-05-07 09:28 | PN ---
Progress Note (short form) - Note Progress Note: 72-year-old female, history of COPD, HTN, HLD, CVA, chronic chest pain for numerous ER visits and admissions for same, p/w same today. Pt has had almost daily visits for same and seen by cardiology during recent admission with negative workup. Chest pain, deemed to be likely musculoskeletal. Patient also has been evaluated by lead case manager and psych multiple times. Evaluated by Dr Ni of psychiatry recently and deemed to have capacity. Recent discharges has had to involves security or the police. Patient also witnessed to sleep in restrooms overnight in the ER. Unsure how involved family is. Per prior team, pt was found wandering on the street with no shoes on. Received a psych eval today and it was documented that pt is only oriented x 1 and that pt was an unsafe discharge. Will admit for AMS at this time. Ultimately pt needs a comprehensive peter-psych assessment and placement as pt is incapable of caring for herself at home and appears to be deteriorating mentally and physically. Pt. has been admitted for AMS, she is known to me from previous admissions, she has had chronic [id number] type vs cervicogenic, difficult to differentiate. She has x months been needy, has, to my knowledge cognitive decline and repeated hospital admission in an agitated, labile state. 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: CVA Cardio/Vascular: Yes: HTN, Hyperlipdemia Gastrointestinal: Yes: GERD, Hiatal Hernia, Peptic Ulcer Disease Renal/: Yes: Other (hyponatremia) ...: No Psych: Yes: Anxiety, Depression Musculoskeletal: Yes: Osteoarthritis Endocrine: Yes: Diabetes Mellitus - Past Surgical History Past Surgical History: Yes: Cataract Removal (bilateral), Joint Replacement (RT KNEE) - Alcohol/Substance Use Hx Alcohol Use: No History of Substance Use: reports: None - Smoking History Smoking history: Never smoked Have you smoked in the past 12 months: No Aproximately how many cigarettes per day: 0 - Social History Usual Living Arrangement: 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 -) ADL: Support Services (SUPERVISOR FELLING BUCKING 8 hours daily, 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 History of Recent Travel: No Home Medications - Allergies Allergies/Adverse Reactions: Allergies Allergy/AdvReac Type Severity Reaction Status Date / Time aspirin Allergy Severe "NERVOUS" Verified 05/05/18 06:56 morphine Allergy Severe "ANXIETY-DE Verified 05/05/18 06:56 SPERATION" - Home Medications Home Medications: Ambulatory Orders Amlodipine Besylate 5 mg PO DAILY 11/06/17 Divalproex Sodium [Depakote] 500 mg PO BID 11/06/17 Famotidine 20 mg PO BID 11/06/17 Lisinopril [Prinivil] 5 mg PO DAILY #30 tablet 11/07/17 Escitalopram Oxalate [Lexapro -] 10 mg PO DAILY 04/13/18 Metoprolol Succinate [Toprol Xl] 25 mg PO DAILY 04/13/18 Mirtazapine 15 mg PO HS 04/13/18 Quetiapine Fumarate [Seroquel -] 25 mg PO DAILY 04/13/18 Physical Exam-Neuro Vital Signs: Vital Signs Temperature 98 F 05/07/18 05:52 Pulse Rate 74 05/07/18 05:52 Respiratory Rate 18 05/07/18 05:52 Blood Pressure 135/72 05/07/18 05:52 O2 Sat by Pulse Oximetry (%) 96 05/07/18 01:00 Labs: CBC, BMP 05/06/18 07:30 05/06/18 07:30 - Neuro Exam Level Of Consciousness: Yes: Alert, Oriented to Person, Oriented to Place Speech: Other (pressured, tangential) Dominant Hand: Right Mini Mental Exam: Impaired STM/attention/concentration DTR's: 0 Left Achilles, 0 Right Achilles (bilat knees-3+), 1+ Left Brachioradialis, 1+ Right Brachioradialis, 2+ Left Bicep, 2+ Right Bicep, 2+ Left Tricep, 2+ Right Tricep Babinski: Absent Response to light touch: Normal (unable to test other modalities) Coordination: Normal: Finger to Nose (normal) Motor Strength: 5/5: Left Arm, Right Arm, Left Leg, Right Leg Assessment/Plan Pt. with cognitive decline, difficult to do a detailed exam given language barrier and probable agitated depression, hence difficult to tell possible etiology of dementia which appears to be mild. This lady is unable to fx.at home and repeatedly seeks care in hospitals-she requires a psychiatric evaluation for treatment of depression?/ with psychotic features following treatment of a mood d/o will be able to better assess her cognitive state and probable adult home placement. continue depakote 500BID . Headaches- would try to minimize Tylenol, she may have analgesic rebound headaches, continue Nortryptilline 20mg hs to treat possible cervicogenic headaches-though this is not her main issue ( she has complained of this for > 10 years). Avoid polypharmacy. neuro cleared for rehab DR DUNLAP
[2018-05-07 09:58] LABS: ALBUMIN 3.4 g/dl (3.4-5.0); BILIRUBIN,DIRECT 0.2 mg/dL (0.0-0.2); BILIRUBIN,TOTAL 0.7 mg/dL (0.2-1); TOT PROT 7.1 g/dl (6.4-8.2)
--- NOTE | 2018-05-07 10:23 | PN ---
Physical Exam: SUBJECTIVE: Patient seen and examined at bedside no acute events overnight patient is mumbling to herself adn seems anxious; still complaining of headaches and CP OBJECTIVE: Vital Signs Period Temp Pulse Resp BP Sys/Christensen Pulse Ox Last 24 Hr 98 F-98.6 F 74-85 18-18 132-135/65-72 96-97 GENERAL: The patient is awake, alert, oriented to place, self, . EYES: PEERLA: EOMI no scleral icterus. NECK: no JVD: no lymphadenopathy LUNGS: CTA B/L; no rales, rhonchi or wheezing HEART: Regular rate and rhythm, S1, S2 without murmur, rub or gallopl tenderness upon palpation anteriorly. ABDOMEN: Soft, slight tenderness upon palpation; +BS in all 4 quadrants EXTREMITIES: 2+ pulses, warm, well-perfused, no edema. NEUROLOGICAL: Cranial nerves II through XII grossly intact. Normal speech, gait not observed. PSYCH: Normal mood, normal affect. SKIN: Warm, dry, normal turgor, no rashes or lesions noted Laboratory Results - last 24 hr 05/06/18 05/06/18 05/07/18 13:25 18:00 08:10 Total Bilirubin 0.7 Direct Bilirubin 0.2 AST 54 H ALT 68 H Alkaline Phosphatase 152 H Total Protein 7.1 Albumin 3.4 Opiates Screen Negative Methadone Screen Negative Acetaminophen < 2.0 L Barbiturate Screen Negative Phencyclidine Screen Negative Ur Amphetamines Screen Negative MDMA (Ecstasy) Screen Negative Benzodiazepines Screen Negative Cocaine Screen Negative U Marijuana (THC) Screen Negative Active Medications Generic Name Dose Route Start Last Admin Trade Name Yonathanq PRN Reason Stop Dose Admin Amlodipine Besylate 5 mg 05/06/18 10:05/06/18 10:27 Norvasc - PO 5 mg DAILY KATHERINE Administration Divalproex Sodium 500 mg 05/06/18 10:05/06/18 22:46 Depakote - PO 500 mg BID KATHERINE Administration Escitalopram Oxalate 10 mg 05/06/18 10:05/06/18 10:27 Lexapro - PO 10 mg DAILY KATHERINE Administration Lisinopril 5 mg 05/06/18 10:00 05/06/18 10:27 Prinivil PO 5 mg DAILY KATHERINE Administration Metoprolol Succinate 25 mg 05/06/18 10:00 05/06/18 10:27 Toprol Xl - PO 25 mg DAILY KATHERINE Administration Mirtazapine 15 mg 05/06/18 22:00 05/06/18 22:46 Remeron - PO 15 mg HS KATHERINE Administration Nortriptyline HCl 20 mg 05/07/18 22:00 Pamelor - PO HS KATHERINE Quetiapine Fumarate 25 mg 05/06/18 10:00 05/06/18 10:27 Seroquel - PO 25 mg DAILY KATHERINE Administration Ranitidine HCl 150 mg 05/06/18 10:00 05/06/18 22:46 Zantac - PO 150 mg BID KATHERINE Administration ASSESSMENT/PLAN: Patient is a 72 y/o female with PMH of COPD, HTN, HLD, CVA, seizures, chronic headaches and chest pain who presented with CP Persistent non-cardiac CP, chest pain syndrome no EKG changes and trops negative times 2 c/w norvasc 5mg, lisinopril 50mg, toprol Xl 25mg; given transaminitis no statin at this time Suspected Dementia with psych hx (anxiety/depression) no change in mental status; patient is at baseline -seen by psychiatry and neurology; deems this to be an unsafe d/c and that she should have an increase in her SPOT BILLING CLERK or go to a home -Continue seroquel, lexapro, mirtazapine Transaminitis possiblly 2/2 excessive tylenol use v. fatty liver? f/u hepatic panel abdominal U/S no tylenol Seizures c/w depakote 500 BID Hx CVA -Should be on an antiplatelet; can be discussed as an outpatient Headaches no more tylenol use added nortiptylline 20mg at night F/E/N not on fluids monitor electrolytes regular diet dispo: nephew cannot take care of her; possible SNF or increase in SPOT BILLING CLERK hours?
[2018-05-07] MEDS: RANITIDINE HCL 150 MG TABLET (FP) PO SCH ×2 (11:25→12:38)
[2018-05-07] MEDS: DIVALPROEX SODIUM 500 MG TABLET E.C. PO SCH (11:32)
[2018-05-07] MEDS: QUEtiapine FUMARATE 25 MG TABLET (FP) PO SCH ×2 (11:42→12:38)
[2018-05-07] MEDS: ESCITALOPRAM OXALATE 10 MG TABLET (FP) PO SCH ×2 (11:42→12:39)
[2018-05-07] MEDS: LISINOPRIL 5 MG TABLET (FP) PO SCH ×2 (11:42→12:37)
[2018-05-07] MEDS: amLODIPine BESYLATE 5 MG TABLET (FP) PO SCH ×2 (11:42→12:38)
[2018-05-07] MEDS: metoPROLOL SUCCINATE 25 MG TAB.SR.24H (FP) PO SCH ×2 (11:42→12:39)
[2018-05-07 12:20] VITALS: BP 117/84; PULSE 68; TEMP 98.1
--- NOTE | 2018-05-07 12:39 | PN ---
Teaching Attending Note Name of Resident: Shantelle Rojas ATTENDING PHYSICIAN STATEMENT I saw and evaluated the patient. I reviewed the resident's note and discussed the case with the resident. I agree with the resident's findings and plan as documented. SUBJECTIVE: refuses to use grinder outside diameter phone for translation , pushes examiner away OBJECTIVE: NAD, eye closed , pushes examiner away Assessment/Plan: 72 y/o lady with h/o COPD, HTN, HLD, CVA, seizure ,chronic chest pain, and chronic GALLARDO , with multiple visits to ER for CP, who presented again with CP. 1- CP: atypical , can't use statin due to LFts abn. Not o n antiplatelet as risk for fall, see below Cont norvasc , lisinopril, and BB 2- Transaminitis: might have fatty liver as her LFTS have been elevated in past.ciara lópez is low and she refused US. LFTs stable 3-Decline in cognitive function with Possible dementia: continued w/u and neuropsych eval as out pt start TCA as per neuro Recs 4- h/o CVA: not on any anti platelet agents. I would be careful with her gait abnormalities . discussion and decision about plavix as out pt 5- h/o seizures: cont depakote 6- h/o depression and anxiety : cont lexapro, seroquel , and remeron . Dispo : Rehab today
--- NOTE | 2018-05-07 14:06 | DS ---
Physical Exam: SUBJECTIVE: Patient seen and examined at bedside no acute events overnight patient is mumbling to herself adn seems anxious; still complaining of headaches and CP OBJECTIVE: Vital Signs Period Temp Pulse Resp BP Sys/Christensen Pulse Ox Last 24 Hr 98 F-98.6 F 68-85 18-18 117-135/65-84 96-97 PHYSICAL EXAM GENERAL: The patient is awake, alert, oriented to place, self, . EYES: PEERLA: EOMI no scleral icterus. NECK: no JVD: no lymphadenopathy LUNGS: CTA B/L; no rales, rhonchi or wheezing HEART: Regular rate and rhythm, S1, S2 without murmur, rub or gallopl tenderness upon palpation anteriorly. ABDOMEN: Soft, slight tenderness upon palpation; +BS in all 4 quadrants EXTREMITIES: 2+ pulses, warm, well-perfused, no edema. NEUROLOGICAL: Cranial nerves II through XII grossly intact. Normal speech, gait not observed. PSYCH: Normal mood, normal affect. SKIN: Warm, dry, normal turgor, no rashes or lesions noted LABS Laboratory Results - last 24 hr 05/06/18 05/06/18 05/07/18 13:25 18:00 08:10 Total Bilirubin 0.7 Direct Bilirubin 0.2 AST 54 H ALT 68 H Alkaline Phosphatase 152 H Total Protein 7.1 Albumin 3.4 Opiates Screen Negative Methadone Screen Negative Acetaminophen < 2.0 L Barbiturate Screen Negative Phencyclidine Screen Negative Ur Amphetamines Screen Negative MDMA (Ecstasy) Screen Negative Benzodiazepines Screen Negative Cocaine Screen Negative U Marijuana (THC) Screen Negative HOSPITAL COURSE: Date of Admission:05/05/18 Patient is a 72 y/o female with PMH of COPD, HTN, HLD, CVA, seizures, chronic headaches and chest pain who presented with CP. she is a frequent flyer for chest pain visits- her EKG was normal in addition all of her trops were negative. She was seen by psych who thinks she may benefit from either inpatient treatment or from an adult home. she was also seen by neuro who thinks she needs to remain on her same meds and also benefit from inpateint help as well. she was stable to be dsicharged to SNF and she may also need to have extra home health aid hours as her family members cannot take adriana of her anymore. Date of Discharge: 05/07/18 Minutes to complete discharge: 39 Discharge Summary Reason For Visit: ALTERED MENTAL STATUS Current Active Problems Chronic chest pain (Chronic) Condition: Stable - Instructions Diet, Activity, Other Instructions: You came to the emergency room with complaints of chest pain. Your EKG was normal and so were your cardiac enzymes. You were seen by a neurologist as well as a psychiatrist. Your symptoms are stable and you are going to a short term rehab facility Please resume all of your home medications -we are starting you on a medication called Nortiptylline 20mg to be taken every night for your headaches EXCEPT: please stop taking Tylenol as your liver enzymes are elevated which could be due to your Tylenol use Please follow up with Dr. Mabry after discharge form rehab . Please follow up with Dr. Morton, the neurologist within one week We are referring you to a psychiatrist, Dr. Murillo, that we would like you to follow up with Please follow up with Dr. Vargas the assembler equipment *if you begin to experience any chest pains, shortness of breath, nausea/ vomiting, please return to the emergency room immediately Need LFTs in 1 week . Rehab to follow on hepatitis testing that is still pending . need US of her liver for transaminitis , if she agrees No tylenol please Need neuro psych evaluation for cognitive impairment Referrals: Waldo Mabry MD [Staff Physician] - 1 Week Josue Morton DO [Staff Physician] - 1 Week Shyam Vargas MD [Staff Physician] - Mary Murillo MD [Staff Physician] - 1 Week Disposition: [facility]IOR [facility]ARE FACILITY - Home Medications Comprehensive Discharge Medication List: Ambulatory Orders Amlodipine Besylate 5 mg PO DAILY 11/06/17 Divalproex Sodium [Depakote] 500 mg PO BID 11/06/17 Famotidine 20 mg PO BID 11/06/17 Lisinopril [Prinivil] 5 mg PO DAILY #30 tablet 11/07/17 Escitalopram Oxalate [Lexapro -] 10 mg PO DAILY 04/13/18 Metoprolol Succinate [Toprol Xl] 25 mg PO DAILY 04/13/18 Mirtazapine 15 mg PO HS 04/13/18 Quetiapine Fumarate [Seroquel -] 25 mg PO DAILY 04/13/18 Nortriptyline HCl [Pamelor -] 20 mg PO HS #30 capsule 05/07/18 Problem List - Problems (1) Chronic chest pain Code(s): R07.9 - CHEST PAIN, UNSPECIFIED; G89.29 - OTHER CHRONIC PAIN (2) Atypical chest pain Code(s): R07.89 - OTHER CHEST PAIN This patient is new to me today: Yes Date on this admission: 05/07/18 Emergency Visit: Yes ED Registration Date: 05/05/18 Care time: The patient presented to the Emergency Department on the above date and was hospitalized for further evaluation of their emergent condition. Critical Care patient: No - Discharge Referral Referred to [facility] Med [facility] Yes Physician Referral: Waldo Morgan MD ([facility])
[2018-05-07 17:15] LABS: HEP.C VIRUS AB <0.1 s/co ratio (0.0-0.9)
[2018-05-07] MEDS ORDERED: NORTRIPTYLINE HCL 10 MG CAPSULE PO SCH (22:00)
== END 2018-05-07 17:44 ==
LOC: JER 06:55 → JERBED 19:30 → J6S 05-06 00:37
PROVIDERS: ADMIT Internal Medicine; ATTEND Internal Medicine
DX: R41.82 Altered mental status, unspecified (principal); R07.89 Other chest pain; R40.0 Somnolence; G89.29 Other chronic pain; G31.84 Mild cognitive impairment of uncertain or unknown etiology; R74.0 Nonspecific elevation of levels of transaminase and lactic acid dehydrogenase [LDH]; I10 Essential (primary) hypertension; E78.5 Hyperlipidemia, unspecified; E11.9 Type 2 diabetes mellitus without complications; J44.9 Chronic obstructive pulmonary disease, unspecified; K21.9 Gastro-esophageal reflux disease without esophagitis; I69.398 Other sequelae of cerebral infarction; G40.909 Epilepsy, unspecified, not intractable, without status epilepticus; F41.9 Anxiety disorder, unspecified; F32.9 Major depressive disorder, single episode, unspecified; Z85.841 Personal history of malignant neoplasm of brain; Z87.442 Personal history of urinary calculi; Z88.6 Allergy status to analgesic agent; Z60.0 Problems of adjustment to life-cycle transitions
CPT/HCPCS: 36415; 80048; 80053; 80061; 80074; 80076; 80307; 82550; 82607; 83721; 83735; 84100; 84443; 84484; 85025; 86705; 93005; 93010; 97116-GP; 97161-GP; 99285-25; G0378; J7030